=== PATIENT | female | born 1960 | race Caucasian/White ===

== ENCOUNTER 2023-04-29 16:32 | Outpatient (OUT) | payer MEDICARE, SELFPAY ==
--- NOTE | 2023-04-29 16:49 | XR_ITS ---
The [address] [address] Patient Name: RHETT MEJIA MRN: [id number] date: 1960 Sex: F Assigned Patient Location: [facility] Current Patient Location: [facility] Accession/Order Number: [id number] Exam Date: 04/29/2023 16:51 Report Date: 04/29/2023 18:08 At the request of: NAPOLEON LOPEZ Procedure: XR tibia fibula RT 2V EXAM: XR tibia fibula RT 2V HISTORY: RT LEG MASS and lower extremity swelling. COMPARISON: None. TECHNIQUE: AP and lateral views of the tibia and fibula were obtained. FINDINGS: There is no evidence of an acute fracture or dislocation. Some deformity of the fibular head and neck indicates an old fracture which has healed. Degenerative changes are seen at the knee with narrowing of the joint spaces and osteophytes. A focal sclerotic region of the distal tibial metaphysis has appearance of a bone island. The mortise is intact. Diffuse soft tissue swelling about the lower extremity is noted extending into the ankle. Some skin calcifications are noted anterior to the mid tibia. IMPRESSION: No acute fracture or dislocation. A remote fracture of the proximal fibular is noted. Degenerative changes are seen about the knee. A focal area of sclerosis is seen in the distal tibial metaphysis, which appears benign in nature. Comparison with a previous study would be helpful in determining the chronicity of these findings. Electronically authenticated by: DEANDRE MOSS Date: 04/29/2023 18:08
== END 2023-04-29 16:33 ==
PROVIDERS: PCP Family Medicine; Visit Provider Family Medicine
DX: R22.41 Localized swelling, mass and lump, right lower limb (principal)
CPT/HCPCS: 73590

== ENCOUNTER 2023-05-06 07:00 | Day surgery (SDC) | payer MEDICARE, SELFPAY ==
[2023-05-06 07:19] VITALS: BP 120/70; PULSE 94; RESP 20; TEMP 36.2; O2SAT 97
--- NOTE | 2023-05-06 08:11 | P.ON_ITS ---
Date of procedure: 05/06/23 Procedure: Cervical C7-T1 Epidural injection Preop diagnosis includes pain secondary to Cervical Radiculopathy Post op diagnosis same Under fluoroscopic guidance Immediate complications none Solution used for injection: Marcaine 0.25% 2mL, 2cc Normal saline, Depo-Medrol 80mg Omnipaque 3 mL Anesthesia local 2% lidocaine up to 4ml Timeout process compliant After informed consent obtained. patient brought to the procedure room placed in the prone position. skin overlying the area was prepped and draped in a sterile fashion using betadine. 25 gauge needle used To raise a skin wheel with local anesthetic over the target area identified under fluoroscopy . a 17 gauge Touhy needle Was inserted over the anesthetized area and directed towards the inter- space under fluoroscopic guidance . epidural space was identified with loss of resistance technique to air. needle Tip placement confirmed with injection of contrast solution. Steroid solution was then injected. [place] removed post operatively. Patient transferred to recovery room in stable condition, to be discharged home after meeting Criteria Surgeon: Minal Enriquez
[2023-05-06 08:28] VITALS: BP 135/66; PULSE 83; RESP 20; O2SAT 90
[2023-05-06] MEDS: METHYLPREDNISOLONE ACETATE 80 MG/ML VIAL INJ (08:33)
[2023-05-06] MEDS: 0.9 % SODIUM CHLORIDE 10 ML SYRINGE - SALINE FLUSH INJ (08:33)
[2023-05-06] MEDS: LIDOCAINE HCL 2% PF 100 MG/5 ML VIAL 6 ML INJ (08:33)
[2023-05-06] MEDS: BUPIVACAINE HCL 0.25% PF 25 MG/10 ML VIAL 2 ML INJ (08:33)
[2023-05-06 08:34] VITALS: BP 137/66; PULSE 66; RESP 20; O2SAT 90
== END 2023-05-06 08:40 | disposition home or self-care (01) ==
PROVIDERS: PCP Family Medicine; Visit Provider Anesthesiology Pain Medicine
DX: M54.12 Radiculopathy, cervical region (principal)
CPT/HCPCS: 62321; J1040

== ENCOUNTER 2023-05-27 13:22 | Outpatient (OUT) | payer MEDICARE, SELFPAY ==
--- NOTE | 2023-05-27 17:30 | CONS_ITS ---
CONSULTATION DATE: ??05/27/2023 TO:? Ke Rahman M.D. HISTORY:? Patient presents today complaining of pain in her lower back, worse on the left side.? At times her legs feel painful as well, mainly in the upper part of her left side.? She reports the pain does increase with sitting for prolonged periods of time.? She feels better if she stands.? Walking at times is also quite uncomfortable, and she did describe to me discomfort in her legs with ambulating as well.? EXAM:? Her examination is notable for patient having no clinical radiculopathy or myelopathy involving the lower extremities, but she did have depressed right patellar reflex and weakness of the iliopsoas and quadriceps bilaterally.? IMPRESSION:? Our impression is patient appears to have chronic pain secondary to spinal stenosis and neurogenic claudication in the lumbar area.? RECOMMENDATIONS:? I have recommended physical therapy for strengthening.? Proceed with a lumbosacral spine film, PA and lateral views, and then followed by lumbar MRI without contrast.? I did discuss with her the possibility of seeking neurosurgical consultation, but she wants to hold off on the same.? She has also had pain with lumbar facet loading maneuvers occurring bilaterally, markedly worse on the left side.? We will have the patient return to the office in approximately one month?s time to review her imaging studies. As part of providing excellent, safe, comprehensive care, the following was completed at our patient's visit: 1. A medication reconciliation and review to ensure accurate knowledge of current/active medications, including asking our patients to inform us about any uurb-jfk-ajawwai medications or herbal remedies/nutritional supplements/alternative remedies. 2. A review to specifically ensure our patients have had annual screening for: elevated body mass index (BMI, see intake chart for exact total), tobacco use, screening for depression, and screening for unhealthy alcohol use.? When screening is concerning, patients are provided with education and the specific recommendation to discuss the concerning health issue and treatment options with their primary care provider. LIZZETTE
== END 2023-05-27 13:23 | disposition home or self-care (01) ==
LOC: PM 13:22
PROVIDERS: PCP Family Medicine; Visit Provider Anesthesiology Pain Medicine
DX: M48.00 Spinal stenosis, site unspecified (principal); G89.29 Other chronic pain
CPT/HCPCS: G0463

== ENCOUNTER 2023-06-26 12:59 | Outpatient (OUT) | payer MEDICARE, SELFPAY ==
--- NOTE | 2023-06-26 13:16 | CT_ITS ---
The [address] [address] Patient Name: RHETT MEJIA MRN: [id number] date: 1960 Sex: F Assigned Patient Location: CT Current Patient Location: MRI Accession/Order Number: [id number] Exam Date: 06/26/2023 14:15 Report Date: 06/26/2023 15:09 At the request of: NAPOLEON LOPEZ Procedure: CT lower leg RT wo con CT lower leg RT wo con CLINICAL HISTORY: Right leg mass R22.41. COMPARISON: 04/29/2023. TECHNIQUE: Noncontrast axial CT of the right lower leg from the right knee through the ankle. Bone and soft tissue windows provided for review. Sagittal and coronal reconstructions performed. Dose reduction techniques were achieved by using automated exposure control and/or adjustment of mA and/or kV according to patient size and/or use of iterative reconstruction technique. FINDINGS: Diffuse subcutaneous and dermal edema of the right lower leg. Extensive varicosities throughout the right lower leg. At the marked site of interest over the anterior lower leg at the junction of middle and distal thirds there is BB marker. This denotes a prominent varicosity. No other concerning mass or fluid collection. No significant intramuscular edema. Osseous structures intact with no fracture or concerning lesion. Small benign bone infarct distal tibial shaft. The ankle and knee joints grossly intact with relatively advanced degenerative change at the knee. Multiple tiny scattered benign soft tissue calcifications.: Diffuse subcutaneous edema. The marked site of interest over the anterior tyler overlies a prominent venous varicosity. No concerning abnormality. Electronically authenticated by: NATTY HILL Date: 06/26/2023 15:09
== END 2023-06-26 13:00 | disposition home or self-care (01) ==
LOC: CT 13:01
PROVIDERS: PCP Family Medicine; Visit Provider Family Medicine
DX: R22.41 Localized swelling, mass and lump, right lower limb (principal)
CPT/HCPCS: 73700

== ENCOUNTER 2023-06-26 13:05 | Outpatient (OUT) | payer MEDICARE, SELFPAY ==
--- NOTE | 2023-06-26 13:09 | MR_ITS ---
[address] [address] Patient Name: RHETT MEJIA MRN: [id number] date: 1960 Sex: F Assigned Patient Location: MRI Current Patient Location: MRI Accession/Order Number: [id number] Exam Date: 06/26/2023 13:17 Report Date: 06/27/2023 09:00 At the request of: AMIRA OCAMPO Procedure: MR lumbar spine wo con EXAMINATION: MR lumbar spine wo con HISTORY: Lumbar spinal stenosis ; chronic lumbar and left leg pain and weakness COMPARISON: No relevant comparison available. TECHNIQUE: A variety of imaging planes and parameters were utilized for visualization of suspected pathology. FINDINGS: For the purposes of numbering, sagittal T2 image # 11 extends from the T10 vertebral body superiorly to the S3 level inferiorly. PARASPINAL AREA: Normal with no visible mass. BONES: Levoscoliosis of lumbar spine. Mild grade 1 retrolisthesis of L3 on 4. No fracture. CORD/CAUDA EQUINA: Normal caliber, contour, and signal intensity. DISC LEVELS: 12-L1: No significant disc/facet abnormality, spinal stenosis, or foraminal stenosis. L1-L2: Mild central canal and bilateral foramen narrowing. Mild diffuse disc bulging and mild disc height reduction. L2-L3: Marked central canal and right foramen narrowing. No significant left foramen narrowing. Mild diffuse disc bulging with marked disc height reduction. Short pedicles bilaterally, moderate degenerative facet arthropathy, and mild ligamentum flavum thickening. L3-L4: Moderate central canal and right foramen narrowing. Marked left foramen narrowing. Moderate diffuse disc bulging eccentric to the left with marked disc space narrowing. Left facet marked degenerative hypertrophy. L4-L5: Mild central canal and right foramen narrowing. Marked left foramen narrowing. Moderate diffuse disc bulging eccentric to the left. Left facet marked degenerative hypertrophy. L5-S1: Early degenerative disc disease is present without focal protrusion or neural impingement. MR/MR lumbar spine wo con IMPRESSION: 1. L2-L3 marked central canal narrowing. Moderate-marked foramen narrowing L2-3, L3-4, L4-5. 2. Prominent levoscoliosis, degenerative disc disease, degenerative facet arthropathy contribute to findings in #1. Electronically authenticated by: JESSICA WINKLER Date: 06/27/2023 09:00
== END 2023-06-26 13:06 | disposition home or self-care (01) ==
LOC: MRI 13:05
PROVIDERS: PCP Family Medicine; Visit Provider Anesthesiology Pain Medicine
DX: R22.41 Localized swelling, mass and lump, right lower limb (principal); M48.061 Spinal stenosis, lumbar region without neurogenic claudication
CPT/HCPCS: 72148; 73700

== ENCOUNTER 2023-09-02 14:48 | Outpatient (OUT) | payer MEDICARE, SELFPAY ==
--- NOTE | 2023-09-02 | CONS_ITS ---
CONSULTATION DATE: ??09/02/2023 TO:? Dr. Rahman HISTORY:? Patient was seen today complaining of pain in her lower back occurring bilaterally.? Pain is rated 5-7/10 pain, sharp in character, which is fairly constant, increased with activities such as standing, walking and performing transitioning maneuvers.? She feels most comfortable in the semi-recumbent position.? She denied any change in bowel and bladder habits or new sensorimotor changes in her lower extremities. EXAMINATION:? Notable for patient having no clinical radiculopathy or myelopathy involving the lower extremities.? She did have severe pain with lumbar facet joint loading maneuvers occurring bilaterally from at least L2-L5, most likely effecting the L2-3 and L4-5 levels.? She had essentially myofascial fascial spasm of the lumbar paravertebral muscles as well. IMPRESSION:? Our impression is patient has chronic pain.? She has undergone a rhizotomy using radiofrequency ablation of the L2-3, L4-5 levels on 07/09/2022.? She reports her pain was improved by at least 80% with the recurrence of pain almost back to her baseline.? RECOMMENDATIONS:? We recommend repeating the rhizotomy using radiofrequency ablation of the above mentioned levels under fluoroscopic guidance.? We have gone over the details of the procedure with the patient.? She agrees to proceed with the outlined plan. As part of providing excellent, safe, comprehensive care, the following was completed at our patient's visit: 1. A medication reconciliation and review to ensure accurate knowledge of current/active medications, including asking our patients to inform us about any eeej-bcj-hlutzps medications or herbal remedies/nutritional supplements/alternative remedies. 2. A review to specifically ensure our patients have had annual screening for: elevated body mass index (BMI, see intake chart for exact total), tobacco use, screening for depression, and screening for unhealthy alcohol use.? When screening is concerning, patients are provided with education and the specific recommendation to discuss the concerning health issue and treatment options with their primary care provider. LIZZETTE
== END 2023-09-02 14:49 | disposition home or self-care (01) ==
LOC: PM 14:49
PROVIDERS: PCP Family Medicine; Visit Provider Anesthesiology Pain Medicine
DX: G89.29 Other chronic pain (principal)
CPT/HCPCS: G0463

== ENCOUNTER 2023-09-22 06:44 | Day surgery (SDC) | payer MEDICARE, SELFPAY ==
[2023-09-22 06:57] VITALS: BP 129/83; PULSE 90; RESP 16; TEMP 35.9; O2SAT 95
[2023-09-22] MEDS: 0.9 % SODIUM CHLORIDE 500 ML 50 ML IV (07:18)
[2023-09-22] MEDS: BUPIVACAINE HCL 0.25% PF 25 MG/10 ML VIAL 4 ML INJ (07:46)
[2023-09-22] MEDS: LIDOCAINE HCL 2% 400 MG/20 ML MDV INJ (07:47)
[2023-09-22] MEDS: TRIAMCINOLONE ACETONIDE 40 MG/ML VIAL INJ (07:47)
--- NOTE | 2023-09-22 07:58 | P.ON_ITS ---
Date of procedure: 09/22/23 Pre-op diagnosis: Lumbar spondylosis Post-op diagnosis: same as pre-op Procedure: Procedure: Bilateral L2-3, L4-5 radiofrequency ablation Medications: Bupivacaine 0.25% 6cc, lidocaine 2% 5cc, kenalog 80mg The patient was seen and examined in the preoperative holding area.? The site was marked.? Written informed consent was obtained and placed on the chart.? The patient was brought to the medical procedure unit and placed in the prone position.? A timeout was completed verifying correct patient, procedure, positioning, and special requirements.? The skin overlying the target points, the designated medial branch, were prepped and draped in the usual sterile fashion.? The target point was achieved with a 20-gauge 15 cm with a 10 mm curved active tip radiofrequency cannula under direct fluoroscopic visualization.? The needle was inserted at level L2 on the right side. Needle tip position was confirmed with lateral fluoroscopic position.? Motor stimulation was carried out at 2 Hz up to 5 volts with the absence of extremity activity.? This was repeated at level L3, 4, 5 on right side.?? Sensory stimulation was carried out.? Concordant pain was realized at the above- mentioned sites.? Then radiofrequency lesioning was carried out times 90 seconds at 80 degrees times 2 lesions at each level.? The radiofrequency probe was removed prior to cannula removal.? The above-mentioned injectate was placed in 1 mL increments.? The needle was removed. The same procedure, with the same steps, was then completed on the left side at the same levels. Insertion sites were covered.? The patient was taken to the postoperative recovery area and monitored for an appropriate length of time before being found suitable for discharge in the company of a responsible adult. Anesthesia: Moderate Sedation Surgeon: Monica Malagon Pathology: none sent Condition: stable Disposition: no change
[2023-09-22 08:01] VITALS: BP 119/77; PULSE 86; RESP 14; TEMP 36.3; O2SAT 99
[2023-09-22 08:02] VITALS: BP 109/68; PULSE 86; RESP 16; TEMP 36.3; O2SAT 97
== END 2023-09-22 08:24 | disposition home or self-care (01) ==
PROVIDERS: PCP Family Medicine; Visit Provider Anesthesiology
DX: M47.816 Spondylosis without myelopathy or radiculopathy, lumbar region (principal)
CPT/HCPCS: 64635; 64636; J2704

== ENCOUNTER 2023-10-02 11:07 | Outpatient (OUT) | payer MEDICARE, SELFPAY ==
[2023-10-02 11:31] LABS: Calcium 9.6 mg/dL (8.5-10.1); Estimated GFR (African America >60 (>=60); Estimated GFR (Non-African Ame >60 (>=60)
== END 2023-10-02 11:08 | disposition home or self-care (01) ==
LOC: LAB 11:08
PROVIDERS: PCP Family Medicine; Visit Provider Family Medicine
DX: M81.0 Age-related osteoporosis without current pathological fracture (principal)
CPT/HCPCS: 36415; 82310; 82565

== ENCOUNTER 2023-10-02 11:15 | Outpatient (RCR) | payer MEDICARE, SELFPAY ==
[2023-10-02] MEDS: DENOSUMAB 60 MG/ML SYRINGE SQ (11:44)
== END 2023-10-16 23:59 | disposition home or self-care (01) ==
LOC: INF 11:15
PROVIDERS: PCP Family Medicine; Visit Provider Family Medicine
DX: M81.0 Age-related osteoporosis without current pathological fracture (principal)
CPT/HCPCS: 96372; J0897

== ENCOUNTER 2023-10-07 12:06 | Outpatient (REF) | payer MEDICARE, SELFPAY ==
[2023-10-17 14:09] LABS: Ova + Parasite Exam Final report (.)
== END 2023-10-07 12:07 | disposition home or self-care (01) ==
LOC: LAB 12:06
PROVIDERS: PCP Family Medicine; Visit Provider Family Medicine
DX: K52.9 Noninfective gastroenteritis and colitis, unspecified (principal); R53.83 Other fatigue
CPT/HCPCS: 87045; 87046; 87177; 87209; 87427; 87493

== ENCOUNTER 2023-10-08 11:56 | Outpatient (OUT) | payer MEDICARE, SELFPAY ==
[2023-10-08 12:19] LABS: Basophils Percent Auto 0.3 % (0.2-2.0); Eosinophils Absolute Auto 0.1 10^3/uL (0.0-0.7); Eosinophils Percent Auto 0.8 % (0.9-7.0); Hematocrit 45.6 % (36.0-48.0); Hemoglobin 15.2 g/dL (12.0-16.0); Immature Granulocytes Abs Auto 0.03 10^3/uL (0.00-0.03); Immature Granulocytes Pct Auto 0.3 % (0.0-0.5); Lymphocytes Absolute Auto 1.8 10^3/uL (1.2-3.8); Lymphocytes Percent Auto 19.3 % (20.5-60.0); Mean Corpuscular HGB Conc 33.3 g/dL (29.9-35.2); Mean Corpuscular Hemoglobin 31.8 pg (26.7-34.0); Mean Corpuscular Volume 95.4 fL (81.0-99.0); Mean Platelet Volume 9.2 fL (9.5-13.5); Monocytes Absolute Auto 0.9 10^3/uL (0.3-0.8); Monocytes Percent Auto 9.4 % (1.7-12.0); Neutrophils Absolute Auto 6.4 10^3/uL (1.4-6.5); Neutrophils Percent Auto 69.9 % (43.0-75.0); Platelet Count 256 10^3/uL (150-450); Red Blood Count 4.78 10^6/uL (4.20-5.40); Red Cell Distribution Width 13.2 % (11.0-15.0); White Blood Count 9.2 10^3/uL (4.0-11.0)
== END 2023-10-08 11:57 | disposition home or self-care (01) ==
LOC: LAB 11:57
PROVIDERS: PCP Family Medicine; Visit Provider Family Medicine
DX: K52.9 Noninfective gastroenteritis and colitis, unspecified (principal); R53.83 Other fatigue
CPT/HCPCS: 36415; 80053; 80061; 82306; 82607; 82728; 83036; 83540; 84436; 84443; 84481; 85025

== ENCOUNTER 2023-11-12 09:07 | Outpatient (OUT) | payer MEDICARE, SELFPAY ==
--- NOTE | 2023-11-12 09:34 | PM.CN ---
Consult Note: HPI Data of Consult Patient: known to practice within the last 3 years Requesting Physician: Jennie Rowe NP Primary Care Provider: Ke Rahman MD Consult Narrative Reason for consult: f/u Narrative: Vida mason pleasant 63 year old female presents for evaluation and management of chronic low back pain. Recently underwent Bilateral L2-3, L4-5 facet medial branch thermal radiofrequency ablation with 100% ongoing relief. Patient reporting pain is 0/10 today. Patient very pleased with this procedure. Patients PCP manages most of her medications, we prescribe flexeril 5mg TID PRN which she utilizes with benefit. cc:: CC: Jennie Rowe NP Review of Systems ROS Status of ROS 10 or more systems reviewed and unremarkable except as noted in history and below [facility] Medical History (Updated 11/12/23 @ 09:43 by Jennie Rowe NP) Upper back pain ?M54.9 - Dorsalgia, unspecified (ICD-10) Back pain ?M54.9 - Dorsalgia, unspecified (ICD-10) Neck pain ?M54.2 - Cervicalgia (ICD-10) Suicidal behavior ?R45.89 - Other symptoms and signs involving emotional state (ICD-10) Panic attack ?F41.0 - Panic disorder [episodic paroxysmal anxiety] (ICD-10) Depressed ?F32.A - Depression, unspecified (ICD-10) Anxiety ?F41.9 - Anxiety disorder, unspecified (ICD-10) Hearing deficit ?H91.90 - Unspecified hearing loss, unspecified ear (ICD-10) Acid reflux ?K21.9 - Gastro-esophageal reflux disease without esophagitis (ICD-10) Left thyroid nodule ?E04.1 - Nontoxic single thyroid nodule (ICD-10) Smoker ?F17.200 - Nicotine dependence, unspecified, uncomplicated (ICD-10) Asthmatic bronchitis ?J45.909 - Unspecified asthma, uncomplicated (ICD-10) Surgical History History of cholecystectomy ?Z90.49 - Acquired absence of other specified parts of digestive tract (ICD-10) H/O discectomy ?Z98.890 - Other specified postprocedural states (ICD-10) H/O: hysterectomy ?Z90.710 - Acquired absence of both cervix and uterus (ICD-10) Gastric bypass status for obesity ?Z98.84 - Bariatric surgery status (ICD-10) Meds Home Medications and Allergies Home Medications Medication Instructions Recorded Confirmed Type buprenorphine 10 mcg/hour weekly 1 patch transdermal QWEEK 05/01/23 09/22/23 History transdermal patch (Butrans) calcium carbonate 600 mg-vitamin cap PO .QD 05/01/23 History D3 5 mcg (200 unit) capsule (Calcium 600 + D(3)) cholecalciferol (vitamin D3) 10 10 mcg PO DAILY 05/01/23 05/06/23 History mcg (400 unit) capsule cyclobenzaprine 5 mg tablet 5 mg PO TID 05/01/23 09/22/23 History dextroamphetamine-amphetamine 20 20 mg PO .QD 05/01/23 09/22/23 History mg tablet diazepam 5 mg tablet (Valium) 5 mg PO DAILY 05/01/23 05/06/23 History diclofenac sodium 1 % topical gel 4 g topical QID 05/01/23 09/22/23 History diclofenac sodium 75 mg 75 mg PO .QD 05/01/23 09/22/23 History tablet,delayed release duloxetine 60 mg capsule,delayed 120 mg PO DAILY 05/01/23 09/22/23 History release (Cymbalta) esomeprazole magnesium 20 mg 40 mg PO DAILY 05/01/23 09/22/23 History capsule,delayed release (Nexium) gabapentin 600 mg tablet 600 mg PO TID 05/01/23 09/22/23 History lidocaine 5 % topical ointment 05/01/23 History vitamin B complex (Complex B-100 1 tab PO DAILY 05/01/23 09/22/23 History tablet,extended release) ziprasidone HCl 20 mg capsule 20 mg PO .HS 05/01/23 09/22/23 History rivaroxaban 10 mg tablet (Xarelto) 10 mg PO DAILY 09/09/23 09/22/23 History Allergies Allergy/AdvReac Type Severity Reaction Status Date / Time iodine Allergy Verified 05/01/23 09:06 latex Allergy Verified 05/01/23 09:06 soybean Allergy Verified 05/01/23 09:06 Sulfa (Sulfonamide Allergy Verified 05/01/23 09:06 Antibiotics) IV DYE Allergy Uncoded 05/01/23 09:06 Exam Constitutional Documenting provider has reviewed patient's vital signs: yes Common normals: no apparent distress, oriented x3, healthy appearing, alert and well nourished General appearance: cooperative HENKY Common normals: normocephalic, hearing grossly normal bilaterally and moist oral mucous membranes Head and scalp: normocephalic Eye Common normals: PERRL Pupil: PERRL Neck & C-Spine Common normals: full ROM General: normal visual inspection Chest Common normals: inspection of chest normal Respiratory Common normals: normal respiratory effort, no retractions and no use of accessory muscles Back & Pelvis Thoracic spine/upper back: ROM limited Lumbar spine/lower back: ROM limited and straight leg raise negative bilaterally Other: no tenderness negative facet loading no radiculopathy Extremity Common normals: normal to inspection and full ROM Neuro Common normals: oriented x3, CN's II-XII intact bilaterally, moves all extremities, no focal motor deficits, no sensory deficits noted, deep tendon reflexes 2+ bilaterally and gait normal Sensorium/orientation: alert Motor exam: strength 5/5 throughout and no movement abnormalities noted Psych Common normals: mental status grossly normal, thought process normal, cooperative, affect normal, speech normal and activity/motor behavior normal Speech: normal speech Thought process: normal thought process Assessment and Plan Assessment and Plan (1) Lumbar spondylosis: (2) Myofascial pain: Plan continue HEP as tolerated continue flexeril 5mg TID PRN continue f/u with PCP regarding medications f/u 6 months, sooner if needed
== END 2023-11-12 09:08 | disposition home or self-care (01) ==
LOC: PM 09:08
PROVIDERS: PCP Family Medicine; Visit Provider Nurse Practitioner
DX: M47.816 Spondylosis without myelopathy or radiculopathy, lumbar region (principal); M79.18 Myalgia, other site
CPT/HCPCS: G0463

== ENCOUNTER 2024-03-02 07:42 | Outpatient (OUT) | payer MEDICARE, OTHER, SELFPAY ==
--- OUTSIDE RECORDS SUMMARY | 2024-03-02 07:47 | XMS_ITS | CCD ---
Author Organization [facility] Care Team Providers Care Environmental Marketer Name Role Phone NAWRAS, ALI T Unavailable Unavailable NAWRAS, ALI T Unavailable Unavailable HOY, NAPOLEON Unavailable Unavailable HOY, NAPOLEON Unavailable Unavailable HI Unavailable Unavailable NAWRAS, ALI T Unavailable Unavailable Irving Zamora Attending Physician Unavaila Napoleon Matute Primary Care Physician Unavailab MICAELA Joseph Attending Unavailable MICAELA GUPTA Attending Unavailable MICAELA GUPTA Referring Unavailable MICAELA GUPTA Referring Unavailable MICAELA GUPTA Attending Unavailable MICAELA GUPTA Admitting Unavailable LAKSHMIPATHY ., NARENDRANATH Admitting Rajani vailable LAKSHMIPATHY ., NARZACKERY Consulting Rajani vailable HOY ., DR BENDER Primary Care Unavailable LAKSHMIPATHY ., AMIRA Attending Rajani vailable KRYSTIAN ALFARO Consulting Unavailable HOY ., DR BENDER Primary Care Unavailable LAKSHMIPATHY ., NARSALVATOREATH Admitting Rajani vailable RAMIREZ .RUBY Consulting Unavailable LAKSHMIPATHY ., AMIRA Attending Rajani vailable HOKelvin ., DR BENDER Primary Care Unavailable LAKSHMIPATHY ., NARENDRANATH Admitting Rajani vailable LAKSHMIPATHY ., NARENDVENECIAATH Attending Rajani vailable DR JESSICA LIPSCOMB Consulting Unavailable HOY ., DR BENDER Primary Care Unavailable LAKSHMIPATHY ., ANNAATH Attending Rajani vailable LAKSHMIPATHY ., NARENDVENECIAATH Admitting Rajani vailable LAKSHMIPATHY ., AMIRA Consulting Rajani vailable HOKelvin ., DR BENDER Consulting Unavailable HOY ., DR BENDER Primary Care Unavailable HOY ., DR BENDER Admitting Unavailable HOY ., DR BENDER Attending Unavailable LITTLE ., DR BETHEL Reyes Admitting Unavailable LITTLE ., DR BETHEL Reyes Attending Unavailable HOY ., DR BNEDER Primary Care Unavailable RAMIREZ ., RUBY Consulting Unavailable LITTLE ., DR BETHEL Reyes Attending Unavailable HOY ., DR BENDER Primary Care Unavailable HOY ., DR BENDER Consulting Unavailable LITTLE ., DR BETHEL Reyes Admitting Unavailable RAMIREZ ., RUBY Consulting Unavailable GUPTA, DR HINOJOSA Admitting Unavailable GUPTA, DR HINOJOSA Attending Unavailable HOY ., DR BENDER Primary Care Unavailable GUPTA, DR HINOJOSA Consulting Unavailable HOY ., DR BENDER Consulting Unavailable HOY ., DR BENDER Primary Care Unavailable HOY ., DR BENDER Admitting Unavailable HOY ., DR BENDER Attending Unavailable HOY ., DR BENDER Primary Care Unavailable HOY ., DR BENDER Consulting Unavailable HOY ., DR BENDER Admitting Unavailable HOY ., DR BENDER Attending Unavailable ELLIJAY, DR MEAGHAN Stanton Consulting Unavailable HOY ., DR BENDER Primary Care Unavailable HOY ., DR BENDER Consulting Unavailable HOY ., DR BENDER Admitting Unavailable HOY ., DR BENDER Attending Unavailable KEVINER, DR JESSICA Raya Consulting Unavailable HOY ., DR BENDER Primary Care Unavailable LAKSHMIPATHY ., NARENDRANATH Consulting Rajani vailable LAKSHMIPATHY ., NARENDRANATH Admitting Rajani vailable LAKSHMIPATHY ., NARENDRANATH Attending Rajani vailable HALKER ., EVIE Attending Unavailable LAKSHMIPATHY ., NARENDRANATH Admitting Rajani vailable HALKER ., EVIE Consulting Unavailable HOY ., DR BENDER Primary Care Unavailable RAMIREZ ., RUBY Consulting Unavailable LITTLE ., DR BETHEL Reyes Attending Unavailable LITTLE ., DR BETHEL Reyes Admitting Unavailable HOY ., DR BENDER Primary Care Unavailable LITTLE ., DR BETHEL Reyes Attending Unavailable LITTLE ., DR BETHEL Reyes Consulting Unavailable LITTLE ., DR BETHEL Reyes Admitting Unavailable HOY ., DR BENDER Primary Care Unavailable CHARO RASCON Consulting Unavailable ERX BUSTILLO Consulting Unavailable LITTLE ., DR BETHEL Reyes Attending Unavailable LITTLE ., DR BETHEL Reyes Consulting Unavailable LITTLE ., DR BETHEL Reyes Admitting Unavailable HOY ., DR BENDER Primary Care Unavailable HOY ., DR BENDER Consulting Unavailable HOY ., DR BENDER Primary Care Unavailable HOY ., DR BENDER Admitting Unavailable HOY ., DR BENDER Attending Unavailable ZIEBER, DR JESSICA Raya Consulting Unavailable HOY ., DR BENDER Consulting Unavailable HOY ., DR BENDER Primary Care Unavailable HOY ., DR BENDER Admsotero Unavailable HOY ., DR BENDER Attending Unavailable ZIEBER, DR JESSICA Raya Consulting Unavailable HOY ., DR BENDER Consulting Unavailable HOY ., DR BENDER Primary Care Unavailable HOY ., DR BENDER Admsotero Unavailable HOY ., DR BENDER Attending Unavailable ELLIJAY, DR MEAGHAN Stanton Consulting Unavailable RAMIREZ ., RUBY Consulting Unavailable LITTLE ., DR BETHEL Reyes Attending Unavailable LITTLE ., DR BETHEL Reyes Admitting Unavailable HOY ., DR BENDER Primary Care Unavailable RAMIREZ ., RUBY Consulting Unavailable LITTLE ., DR BETHEL Reyes Attending Unavailable LITTLE ., DR BETHEL Reyes Admitting Unavailable HOY ., DR BENDER Primary Care Unavailable LITTLE ., DR BETHEL Reyes Attending Unavailable LITTLE ., DR BETHEL Reyes Consulting Unavailable LITTLE ., DR BETHEL Reyes Admitting Unavailable HOY ., DR BENDER Primary Care Unavailable NICOLAS TOLBERT Consulting Unavailable HOY ., DR BENDER Primary Care Unavailable HOY ., DR BENDER Admsotero Unavailable HOY ., DR BENDER Consulting Unavailable HOY ., DR BENDER Attending Unavailable HOY ., DR BENDER Primary Care Unavailable REINECK, DR ASHLEY Cloud Consulting Unavailabl e REINECK, DR ASHLEY Cloud Admitting Unavailabl e REINECK, DR ASHLEY Cloud Attending Unavailabl e RALPH, MICAH Consulting Unavailable LITTLE ., DR BETHEL Reyes Attending Unavailable LITTLE ., DR BETHEL Reyes Consulting Unavailable LITTLE ., DR BETHEL Reyes Admitting Unavailable HOY ., DR BENDER Primary Care Unavailable HOY ., DR BENDER Primary Care Unavailable HOY ., DR NAPOLEON Sesay Unavailable HOY ., DR BENDER Attending Unavailable HOY ., DR BENDER Consulting Unavailable HOY ., DR BENDER Primary Care Unavailable HOY ., DR BENDER Attending Unavailable HOY ., DR NAPOLEON Sesay Unavailable LITTLE ., DR BETHEL Reyes Attending Unavailable LITTLE ., DR BETHEL Reyes Consulting Unavailable LITTLE ., DR BETHEL Reyes Admitting Unavailable HOY ., DR BENDER Primary Care Unavailable HOY ., DR BENDER Consulting Unavailable HOY ., DR BENDER Primary Care Unavailable HOY ., DR NAPOLEON Sesay Unavailable HOY ., DR BENDER Attending Unavailable ZIEBER, DR JESSICA Raya Consulting Unavailable REQUEST, DR COOPER LISTED Consulting Unavaila iker RAHMAN ., DR BENDER Primary Care Unavailable JOHN ., DR BENDER Admitting Unavailable JOHN ., DR BENDER Attending Unavailable Manas RIOJAS, Monica Todd Attending Unavailable Cristian Morris Attending Unavailab Cristian Du Admitting Unavailab Napoleon Gómez Primary Care Unavailable Allergies Allergy Classification Reported Allergen(s) Allergy Type Date of Onset Reaction(s) Facility (1 source) Contrast media; Translations: [IVP DYE] Propensity to adverse reactions (disorder) 1 [facility] Repository (2 sources) corn extract; Translations: [CORN] Drug Allergy 1 [facility] Repository (6 sources) iodine; Translations: [IODINE] Drug Allergy 9 Edema [facility] Repository (6 sources) Latex; Translations: [LATEX] Drug allergy (disorder) 9 Anaphylaxis [facility] Repository (1 source) loratadine Drug Allergy 1 [facility] Repository (2 sources) loratadine; Translations: [LORATADINE] Drug Allergy 3 [facility] Rep[facility] (1 source) montelukast Drug Allergy 1 [facility] Rep[facility] (3 sources) papaveretum; Translations: [SOYBEAN] Drug Allergy 1 [facility] Rep[facility] (2 sources) Penicillins; Translations: [PENICILLINS] Drug allergy (disorder) 1 [facility] Repository (1 source) povidone-iodine Drug Allergy 9 [facility] Rep[facility] (6 sources) propofol; Translations: [PROPOFOL] Drug Allergy 2 Anaphylaxis [facility] Repository (2 sources) wheat preparation; Translations: [WHEAT] Drug Allergy 2 [facility] Repository (5 sources) Iodinated Contrast Media; Translations: [IODINATED CONTRAST MEDIA] Allergy to Substance 12-19-201 4 Anaphylaxis [facility] Repository (1 source) montelukast; Translations: [MONTELUKAST] Drug Allergy 4 [facility] Repository (1 source) oxybutynin; Translations: [DITROPAN] Drug Allergy 2 [facility] Repository (1 source) Povidone-Iodine; Translations: [POVIDONE-IODINE] Drug Allergy 4 [facility] Repository (1 source) Soy protein; Translations: [SOY] Propensity to adverse reactions to drug (disorder) 2 [facility] Repository (1 source) Iodine (And Iodine Containting Drugs) Drug allergy (disorder) 4 [facility] Repository (1 source) Penicillin Drug Allergy [facility] Repository (1 source) Sulfonamides (Antibiotic) Drug allergy (disorder) 2 [facility] Repository (1 source) Iodine Drug Allergy 8 [facility] Repository (1 source) Latex Drug allergy (disorder) 8 [facility] Repository (1 source) Propofol Drug Allergy 8 [facility] Repository Medications Completed/Discontinued Medications Medication Drug Class(es) Dates Sig (Normalized) Sig (Original) acyclovir 400 mg oral tablet (6 sources) Herpesvirus Nucleoside Analog DNA Polymerase Inhibitor, Herpes Simplex Virus Nucleoside Analog DNA Polymerase Inhibitor, Herpes Zoster Virus Nucleoside Analog DNA Polymerase Inhibitor Start: 04-21-2018 End: 04-21-2018 Acyclovir April 21, 2018 Discontinued Start: 04-21-2018 End: 04-21-2018 Acyclovir April 21, 2018 April 21, 2018 Discontinued Start: 04-21-2018 End: 04-21-2018 Acyclovir April 21, 2018 Disco ntinued Start: 04-21-2018 End: 04-21-2018 Acyclovir April 21, 2018 April 21, 2018 Discontinued Start: 04-21-2018 End: 04-21-2018 Acyclovir April 21, 2018 Disco ntinued Start: 04-21-2018 End: 04-21-2018 Acyclovir April 21, 2018 April 21, 2018 Discontinued alendronic acid 70 mg oral tablet (6 sources) Bisphosphonate Start: 05-14-2018 take 70 mg by mouth every week Alendronate 70 MG Oral every week May 14, 2018 Active amphetamine aspartate 5 mg / amphetamine sulfate 5 mg / dextroamphetamine saccharate 5 mg / dextroamphetamine sulfate 5 mg oral tablet (12 sources) Central Nervous System Stimulant Start: 05-14-2018 End: 05-14-2018 take 20 mg by mouth once daily Dextroamphetamine -Amphetamine 20 MG Oral Daily May 14, 2018 May 14, 2018 Discontinued Start: 05-14-2018 End: 05-14-2018 take 20 mg by mouth once daily Dextroamphetamine-Amphetamine 20 MG Oral Daily May 14, 2018 Discontinued Start: 05-14-2018 End: 05-14-2018 take 20 mg by mouth once daily Dextroamphetamine-Amphetamine 20 MG Oral Daily May 14, 2018 May 14, 2018 Discontinued Start: 05-14-2018 End: 05-14-2018 take 20 mg by mouth once daily Dextroamphetamine-Amphetamine 20 MG Oral Daily May 14, 2018 Discontinued Start: 05-14-2018 End: 05-14-2018 take 20 mg by mouth once daily Dextroamphetamine-Amphetamine 20 MG Oral Daily May 14, 2018 May 14, 2018 Discontinued Start: 05-14-2018 End: 05-14-2018 take 20 mg by mouth once daily Dextroamphetamine-Amphetamine 20 MG Oral Daily May 14, 2018 Discontinued Start: 04-21-2018 End: 04-22-2018 take 20 mg by mouth once daily Dextroamphetamine-Amphetamine 20 MG Oral Daily April 21, 2018 Discontinued atomoxetine 40 mg oral capsule (6 sources) Norepinephrine Reuptake Inhibitor Start: 05-14-2018 End: 05-17-2018 take 40 mg by mouth once daily Atomoxetine 40 MG Oral Daily May 14, 2018 May 17, 2018 Discontinued baclofen 20 mg oral tablet (6 sources) gamma-Aminobutyric Acid-ergic Agonist Start: 04-21-2018 take 20 mg by mouth once daily at bedtime Baclofen 20 MG Oral Daily at bedtime April 21, 2018 Active calcium citrate 950 mg / cholecalciferol 250 unt oral tablet (6 sources) Vitamin D Start: 04-21-2018 take 2 tablets by mouth three times daily Calcium Citrate-Vitamin D3 2 TAB Oral Three times daily April 21, 2018 Active diazePAM 5 mg oral tablet (6 sources) Benzodiazepine Start: 04-21-2018 End: 04-22-2018 take 5 mg by mouth four times daily as needed for anxiety Diazepam 5 MG Oral Four times daily PRN For Anxiety April 21, 2018 Discontinued DULoxetine 60 mg delayed release oral capsule (6 sources) Serotonin and Norepinephrine Reuptake Inhibitor Start: 04-21-2018 take 120 mg by mouth once daily Duloxetine 120 MG Oral Daily April 21, 2018 Active esomeprazole 40 mg delayed release oral capsule (6 sources) Proton Pump Inhibitor Start: 04-21-2018 take 40 mg by mouth twice daily Esomeprazole Magnesium 40 MG Oral Twice daily April 21, 2018 Active gabapentin 300 mg oral capsule (6 sources) Anti-epileptic Agent Start: 04-22-2018 take 300 mg by mouth three times daily Gabapentin 300 MG Oral Three times daily 45 April 22, 2018 Active hydrOXYzine hydrochloride 50 mg oral tablet (6 sources) Antihistamine Start: 04-21-2018 take 50 mg by mouth three times daily as needed for anxiety Hydroxyzine Hcl 50 MG Oral Three times daily PRN For Anxiety April 21, 2018 Active ziprasidone 40 mg oral capsule (18 sources) Atypical Antipsychotic Start: 04-21-2018 End: 05-14-2018 take 40 mg by mouth once daily in the evening Ziprasidone Hcl 40 MG Oral Every evening 15 April 22, 2018 Discontinued Problems Active Problems Problem Classification Problem Date Documented Da te Episodic/Chronic Anxiety disorders (3 sources) Posttraumatic stress disorder Chronic Attention-deficit conduct and disruptive behavior disorders (3 sources) Attention deficit hyperactivity disorder Chronic Complications of surgical procedures or medical care (3 sources) Post gastrointestinal tract surgery hypoglycemia Chronic Deficiency and other anemia (1 source) Anemia, unspecified; Translations: [ANEMIA UNSPECIFIED] Onset: 3 Episodic Diabetes mellitus without complication (1 source) Type 1 diabetes mellitus without complications; Translations: [TYPE 1 DIABETES MELLITUS WITHOUT COMPLICATIONS] Onset: 8 Chronic Diabetes mellitus without complication (2 sources) Other abnormal glucose; Translations: [Hyperglycemia, unspecified] Onset: 3 Episodic Disorders of lipid metabolism (1 source) Hyperlipidemia, unspecified; Translations: [HYPERLIPIDEMIA UNSPECIFIED] Onset: 3 Chronic Esophageal disorders (1 source) Esophagitis, unspecified; Translations: [ESOPHAGITIS, UNSPECIFIED] Onset: 8 Episodic Heart valve disorders (1 source) Rheumatic tricuspid insufficiency; Translations: [RHEUMATIC TRICUSPID INSUFFICIENCY] Onset: 3 Chronic Mood disorders (3 sources) Severe major depression Chronic Nonspecific chest pain (1 source) Chest pain, unspecified; Translations: [CHEST PAIN UNSPECIFIED] Onset: 3 Episodic Nutritional deficiencies (1 source) Vitamin D deficiency, unspecified; Translations: [VITAMIN D DEFICIENCY UNSPECIFIED] Onset: 3 Chronic Nutritional deficiencies (1 source) Deficiency of other specified B group vitamins; Translations: [DEFICIENCY SPEC B GROUP VITAMINS] Onset: 3 Episodic Occlusion or stenosis of precerebral arteries (1 source) Occlusion and stenosis of bilateral carotid arteries; Translations: [OCCLUSION AND STENOS ALEXUS CAROTID ART] Onset: 3 Chronic Osteoporosis (4 sources) Age-related osteoporosis without current pathological fracture; Translations: [AGE-REL OSTEOPOR W/O CURR PATH FX] Onset: 3 Chronic Other acquired deformities (1 source) Scoliosis, unspecified; Translations: [SCOLIOSIS UNSPECIFIED] Onset: 3 Chronic Other and unspecified benign neoplasm (2 sources) Polyp of colon; Translations: [Personal history of colonic polyps] Onset: 8 Episodic Other connective tissue disease (3 sources) Fibromyalgia Episodic Other connective tissue disease (2 sources) Pain in right lower leg; Translations: [Pain in right lower leg] Onset: 2 Episodic Other connective tissue disease (2 sources) Other specified soft tissue disorders; Translations: [Other specified soft tissue disorders] Onset: 2 Episodic Other connective tissue disease (5 sources) Other muscle spasm; Translations: [OTHER MUSCLE SPASM] Onset: 2 Episodic Other gastrointestinal disorders (1 source) Intestinal bypass and anastomosis status; Translations: [INTESTINAL BYPASS AND ANASTOMOSIS STATUS] Onset: 8 Chronic Other gastrointestinal disorders (2 sources) Drug induced constipation; Translations: [Drug induced constipation] Onset: 2 Episodic Other hereditary and degenerative nervous system conditions (1 source) Dystonia, unspecified; Translations: [DYSTONIA UNSPECIFIED] Onset: 3 Chronic Other nervous system disorders (1 source) Other chronic pain; Translations: [OTHER CHRONIC PAIN] Onset: 3 Chronic Other nervous system disorders (2 sources) Other acute postprocedural pain; Translations: [Other acute postprocedural pain] Onset: 2 Episodic Other nutritional; endocrine; and metabolic disorders (1 source) Abnormal weight loss; Translations: [ABNORMAL WEIGHT LOSS] Onset: 8 Episodic Poisoning by other medications and drugs (3 sources) Drug overdose Episodic Residual codes; unclassified (5 sources) Altered mental status, unspecified; Translations: [ALTERED MENTAL STATUS UNSPECIFIED] Onset: 3 Episodic Residual codes; unclassified (5 sources) Localized edema; Translations: [LOCALIZED EDEMA] Onset: 3 Episodic Residual codes; unclassified (4 sources) Insomnia, unspecified; Translations: [INSOMNIA UNSPECIFIED] Onset: 3 Episodic Skin and subcutaneous tissue infections (4 sources) Cellulitis, unspecified; Translations: [CELLULITIS UNSPECIFIED] Onset: 3 Episodic Spondylosis; intervertebral disc disorders; other back problems (9 sources) Other spondylosis with radiculopathy, cervical region; Translations: [Other intervertebral disc degeneration, lumbar region] Onset: 2 Chronic Spondylosis; intervertebral disc disorders; other back problems (18 sources) Cervicalgia; Translations: [Radiculopathy, cervical region] Onset: 2 Episodic Substance-related disorders (4 sources) Nicotine dependence, cigarettes, uncomplicated; Translations: [NICOTINE DEPEND CIGARETTES UNCOMP] Onset: 3 Chronic Unclassified (8 sources) Encounter for screening for malignant neoplasm of colon; Translations: [Abnormal level of blood mineral] Onset: 8 Episodic Unclassified (2 sources) Unknown / UNK(Unknown) Onset: 8 Unclassified (2 sources) Post-op; Translations: [Post-op] Onset: 2 Unclassified (1 source) CONTACT W/AND (SUSP) EXPOS COVID-19; Translations: [CONTACT W/AND (SUSP) EXPOS COVID-19] Onset: 3 Unclassified (4 sources) LOW BACK PAIN, UNSPECIFIED; Translations: [LOW BACK PAIN, UNSPECIFIED] Onset: 3 Past or Other Problems Problem Classification Problem Date Documented Da te Episodic/Chronic Abdominal pain (9 sources) Right upper quadrant pain; Translations: [Unspecified abdominal pain] Onset: 07-15-2022 Episodic Biliary tract disease (5 sources) Calculus of gallbladder without cholecystitis without obstruction; Translations: [Other cholelithiasis without obstruction] Onset: 07-15-2022 Episodic Other aftercare (1 source) Other longterm (current) drug therapy; Translations: [OTH HALF-WAY CURRENT DRUG THERAPY] Onset: 07-15-2022 Episodic Other gastrointestinal disorders (2 sources) Bariatric surgery status; Translations: [BARIATRIC SURGERY STATUS] Onset: 02-24-2018 Episodic Other gastrointestinal disorders (1 source) Right upper quadrant abdominal swelling, mass and lump; Translations: [RUQ ABDOMINAL SWELLING MASS AND LUMP] Onset: 07-28-2022 Episodic Unclassified (1 source) LOW BACK PAIN, UNSPECIFIED; Translations: [LOW BACK PAIN, UNSPECIFIED] Onset: 12-04-2022 Results Test Name Value Interpretation Reference Range Facility MRI MEG WO CONon 03-05-20 MRI ROBININE WO CON EXAM: MRI CSPINE WO CON HISTORY: Cervical radiculitis COMPARISON: [address] TECHNIQUE: Axial sagittal T2, sagittal STIR, sagittal T1, sagittal T2* FINDINGS: There is mild levo convexity. There is no listhesis nor vertebral body height loss. There are discogenic endplate marrow changes at C4-5, C5-6, and C6-7. There is normal signal in the cervical spinal cord. The adjacent soft tissues demonstrate a 3 cm left thyroid nodule. The craniocervical junction is unremarkable. C2-3: There is a mild disc bulge without a significant stenosis C3-4: There is posterior osteophyte and disc formation with ligamentum flavum hypertrophy. This results in mild to moderate central canal and mild to moderate left-sided foraminal narrowing C4-5: There is posterior osteophyte and disc complex with ligamentum flavum hypertrophy. This results in moderate central stenosis. Facet and uncovertebral hypertrophy results in moderate to severe foraminal narrowing C5-6: There is posterior osteophyte and disc complex with uncovertebral hypertrophy. This results in moderate central canal and foraminal narrowing C6-7: There is a posterior osteophyte and disc complex that results in moderate central stenosis. Left-sided uncovertebral hypertrophy results in moderate to severe foraminal narrowing C7-T1: Unremarkable IMPRESSION: Moderate spondylitic changes most marked of the lower cervical spine Moderate central stenoses at C4-5, C5-6 and C6-7 Mild to moderate central stenosis C3-4 Facet and uncovertebral hypertrophy resulting in multilevel foraminal stenoses. This is most marked C4-5, C5-6 and C6 Electronically authenticated by: KRYSTIAN ALFARO Date: 2023-03-05 13:50 Normal [facility] CBC AUTO DIFFon 02-20-2023 BASO # 0.1 103/ul Normal 0.0-0.1 [facility] Comment on above: Performed By: #### C BC #### [facility] [address] [place] [address] Dr. Raul Pereira Basophils/100 WBC (Bld) 0.6 % Normal 0.2-2.0 [facility] Comment on above: Performed By: #### C BC #### [facility] [address] [place] [address] Dr. Raul Pereira EO # 0.2 103/ul Normal 0.0-0.7 [facility] Comment on above: Performed By: #### C BC #### [facility] [address] [place] [address] Dr. Raul Pereira Eosinophils/100 WBC (Bld) 2.3 % Normal 0.9-7.0 [facility] Comment on above: Performed By: #### C BC #### [facility] [address] [place] [address] Dr. Raul Pereira Hematocrit (Bld) [Volume fraction] 39.5 % Normal 36.0-48.0 [facility] Comment on above: Performed By: #### C BC #### [facility] [address] [place] [address] Dr. Raul Pereira Hemoglobin (Bld) [Mass/Vol] 12.3 g/dL Normal 12.0-16.0 [facility] Comment on above: Performed By: #### C BC #### [facility] [address] [place] [address] Dr. Raul Pereira IG # 0.03 10e3/ul Normal 0.00-0.03 [facility] Comment on above: Performed By: #### C BC #### [facility] [address] [place] [address] Dr. Raul Pereira IG % 0.4 % Normal 0.0-0.5 [facility] Comment on above: Performed By: #### C BC #### [facility] [address] [place] [address] Dr. Raul Pereira LYMPH # 2.1 103/ul Normal 1.2-3.8 [facility] Comment on above: Performed By: #### C BC #### [facility] [address] [place] [address] Dr. Raul Pereira Lymphocytes/100 WBC (Bld) 24.8 % Normal 20.5-60.0 [facility] Comment on above: Performed By: #### C BC #### [facility] [address] [place] [address] Dr. Raul Pereira MANUAL DIFF REQ NO Normal [facility] Comment on above: Performed By: #### C BC #### [facility] [address] [place] [address] Dr. Raul Pereira MCH (RBC) [Entitic mass] 26.3 pg Critically low 26.7-34.0 [facility] Comment on above: Performed By: #### C BC #### [facility] [address] [place] [address] Dr. Raul Pereira MCHC (RBC) [Mass/Vol] 31.1 g/dL Normal 29.9-35.2 The [facility] Comment on above: Performed By: #### C BC #### [facility] [address] [place] [address] Dr. Raul Pereira MCV (RBC) [Entitic vol] 84.4 fL Normal 81.0-99.0 [facility] Comment on above: Performed By: #### C BC #### [facility] [address] [place] [address] Dr. Raul Pereira MONO # 1.0 103/ul Critically high 0.3-0.8 [facility] Comment on above: Performed By: #### C BC #### [facility] [address] [place] [address] Dr. Raul Pereira Monocytes/100 WBC (Bld) 11.8 % Normal 1.7-12.0 [facility] Comment on above: Performed By: #### C BC #### [facility] [address] [place] [address] Dr. Raul Pereira NEUT # 5.0 103/ul Normal 1.4-6.5 [facility] Comment on above: Performed By: #### C BC #### [facility] [address] [place] [address] Dr. Raul Pereira Neutrophils/100 WBC (Bld) 60.1 % Normal 43.0-75.0 [facility] Comment on above: Performed By: #### C BC #### [facility] [address] [place] [address] Dr. Raul Pereira Platelet mean volume (Bld) [Entitic vol] 8.8 fL Critically low 9.5-13.5 [facility] Comment on above: Performed By: #### C BC #### [facility] [address] [place] [address] Dr. Raul Pereira PLT 418 103/ul Normal 150-450 [facility] Comment on above: Performed By: #### C BC #### [facility] [address] [place] [address] Dr. Raul Pereira RBC 4.68 106/ul Normal 4.20-5.40 [facility] Comment on above: Performed By: #### C BC #### [facility] [address] [place] [address] Dr. Raul Pereira WBC 8.3 103/ul Normal 4.0-11.0 [facility] Comment on above: Performed By: #### C BC #### [facility] [address] [place] [address] Dr. Raul Pereira FERRITINon 02-20-2023 Ferritin [Mass/Vol] 15.0 ng/mL Normal 8.0-252.0 [facility] Comment on above: Performed By: #### C BC #### [facility] [address] [place] [address] Dr. Raul Pereira XR CSPINE 2_3 VIEWSon 2022 XR CSPINE 2_3 VIEWS EXAMINATION: XR CSPI NE 2_3 VIEWS HISTORY: Cervical radiculitis ; bilateral hand numbness and burning COMPARISON: XR C-spine 09/14/2021 FINDINGS: BONES: Straightening of normal lordotic curvature. Mild-moderate degenerative facet arthropathy at most cervical levels. No fracture or spondylolisthesis. DISC SPACES: Mild narrowing C2-C3, C3 on 4. Marked narrowing C4-C5, C5-C6, C6-C7. PARASPINOUS: Negative. No paraspinous abnormality is seen. OTHER: Skin surface marker posterior to C7 IMPRESSION: 1. Multilevel marked degenerative changes of cervical spine; stable to slightly progressed. Electronically authenticated by: JESSICA LIPSCOMB Date: 2023-02-19 06:42 Normal [facility] CT LUNG CANCER SCREENINGon 0 02-13-2023 CT LUNG CANCER SCREENING EXAMINATION: CT LUNG CANCER SCREENING HISTORY: Tobacco dependence caused by cigarettes COMPARISON: 07/24/2022 TECHNIQUE: Axial, Coronal, and Sagittal images were created without the administration of IV contrast material. Dose reduction techniques were achieved by using automated exposure control and/or adjustment of mA and/or kV according to patient size and/or use of iterative reconstruction technique. FINDINGS: LUNGS: Smooth round 8.7 mm solid right lower lobe nodule axial image 102 central hyperdensity could represent some calcification. Additional subcentimeter pulmonary nodules scattered throughout the lungs. No bronchiectasis or peribronchial thickening PLEURA: No mass, effusion, or pneumothorax. VASCULATURE: No abnormality. FLORENCIA: No mass or pathologic adenopathy. MEDIASTINUM: No mass or pathologic adenopathy. CARDIAC: No enlargement, pericardial thickening, or significant calcification. AORTA: No aortic aneurysm. Mild atherosclerosis CHEST WALL: No mass or axillary adenopathy BONES: No bone lesion or fracture. LIMITED ABDOMEN: Hypodensity in the liver the gallbladder fossa possibly focal fatty infiltration but indeterminate. Suture lines in the stomach consistent with prior procedures OTHER: Negative. IMPRESSION: LUNG SCREENING: Lung-RADS Category 2- Benign Appearance or Behavior. Nodules with a very low likelihood of becoming a clinically active cancer due to size or lack of growth. 2. Continue annual screening with LDCT in 12 months. Electronically authenticated by: MEAGHAN SKINNER Date: 2023-02-13 11:02 Normal [facility] ECHOCARDIO M/2D COMPLETEon 0 3-30-2023 ECHOCARDIO M/2D COMPLETE Patient: RHETT MEJIA Exam Date: 02/13/2023 : 1960 Gender:F Ordering : DR NAPOLEON RAHMAN . Admission #: [id number] Family : Order #: [id number] CLICK HERE TO VIEW EXAM ECHOCARDIOGRAM REPORT PROCEDURE: CARDIO PULMONARY ECHOCARDIO M/2D COMP INDICATIONS: Chest pain COMPARISON: None. DESCRIPTION: COMPLETE ECHOCARDIOGRAM Real-time transthoracic echocardiography with 2D, M-mode, spectral and color flow Doppler performed. QUALITY: Technical quality was good. LEFT VENTRICLE: Normal chamber size. Proximal septal hypertrophy (sigmoid septum). LV EF: Normal left ventricular ejection fraction, (>55%). DIASTOLIC: Grade 2 diastolic dysfunction. ATRIAL SEPTUM: Visually appears intact. LEFT ATRIUM: Severe dilatation. RIGHT ATRIUM: Normal chamber size. RIGHT VENTRICLE: Normal chamber size. Normal right ventricular systolic function. TRICUSPID VALVE: Normal mobility and thickness. No stenosis with mild regurgitation. Doppler studies reveal mildly (35-45) elevated right sided pressures. RVSP 44 mmHg MITRAL VALVE: Normal mobility and thickness. No evidence of mitral valve stenosis. There is no mitral annular calcification. Trivial mitral regurgitation. AORTIC VALVE: Normal trileaflet appearance. Thickened aortic valve. Normal leaflet mobility. No evidence of aortic valve stenosis. No aortic regurgitation. AORTIC ROOT: Normal diameter and appearance. PULMONIC VALVE: Normal thickness and mobility. No stenosis. No regurgitation. PERICARDIUM: No evidence of pericardial effusion. IVC: Collapses with inspirations. IVC is normal in size. PLEURA: CONCLUSION: 1. Normal ventricular systolic function. LVEF is 60 to 65%. 2. Severe left atrial dilatation. 3. Grade 2 diastolic dysfunction. 4. Mild tricuspid regurgitation. 5. Mildly elevated right-sided pressures. Adult Echocardiography Procedure Report Left Ventricle LVEDD (3.7 - 5.6 cm): 4.77 cm LVESD (2.2 - 4.0 cm): 2.46 cm LVIVS thickness (0.6 - 1.2 cm): 0.90 cm LVPW thickness (0.5 - 1.0 cm): 0.91 cm e': 0.08 m/s E - e': 10.27 LVOT Max Gradient: 2.37 mm[Hg] Peak Velocity (LVOT): 0.77 m/s LVOT Diameter 2.25 cm Left Ventricular Ejection Fraction: 60-65 % Left Atrium LA Volume Index (2D A2C): 89.36 ml, 89.36 ml Left Atrium Systolic Dimension: 3.79 cm Mitral Valve MV E to A Ratio: 0.92 Mitral Valve A-Wave Peak Velocity: 0.93 m/s Mitral Valve E-Wave Peak Velocity: 0.85 m/s Right Ventricle Aorta AO Root Diam: 3.09 cm Aortic Valve AoV Area ([place]): 2.42 cm2, 2.42 cm2 Peak Velocity(Antegrade Flow): 1.26 m/s Peak Gradient(Antegrade Flow): 6.36 mm[Hg] Tricuspid Valve Peak Velocity (Regurgitant Flow): 3.19 m/s, 3.15 m/s Peak Velocity: 0.39 m/s Pulmonic Valve Peak Velocity: 0.89 m/s, 0.93 m/s Peak Gradient: 3.13 mm[Hg], 3.46 mm[Hg] Right Atrium Right Atrium Systolic Pressure: 24.05 ml, 24.05 ml Dictated by: Yogesh Marion M.D. on 02/13/2023 at 18:51 Approved by: Yogesh Marion M.D. on 02/13/2023 at 18:54 Normal [facility] CREATININEon 02-12-2023 Creatinine [Mass/Vol] 0.76 mg/dL Normal 0.55-1.02 [facility] Comment on above: Performed By: #### C BC #### [facility] [address] [address] [address] Raul Pereira EGFR-AF BERMUDIAN >60 Normal >=60 [facility] Comment on above: Performed By: #### C BC #### [facility] [address] [address] [address] Raul Pereira EGFR-NON AF BERMUDIAN >60 Normal >=60 [facility] Comment on above: Performed By: #### C BC #### [facility] [address] [place] [address] Dr. Raul Pereira MRI BRAIN WO W CONon 023 MRI BRAIN WO W CON EXAMINATION: MRI BRA IN WO W CON HISTORY: Altered mental status ; acute episode of disorientation COMPARISON: No relevant comparison available. TECHNIQUE: A variety of imaging planes and parameters were utilized for visualization of suspected pathology. Images were performed without and with ml Dotarem contrast. FINDINGS: CEREBRUM: Numerous small T2 hyperintensities within the periventricular and subcortical deep white matter subcortical nonspecific but favoring chronic small vessel ischemic changes. No edema, hemorrhage, mass, acute infarction, or inappropriate atrophy. CEREBELLUM: No edema, hemorrhage, mass, acute infarction, or inappropriate atrophy. BRAINSTEM: No edema, hemorrhage, mass, acute infarction, or inappropriate atrophy. CSF SPACES: Ventricles, cisterns, and sulci are appropriate for age. No hydrocephalus, subarachnoid hemorrhage, or mass. SKULL: No mass or other significant visible lesion. SINUSES: 2 separate mucocele/retention cyst within right maxillary sinus. No significant mucosal thickening or fluid levels. ORBITS: Limited views are unremarkable. OTHER: Multiple nodules within the scalp which are low in T1 signal and very low in T2 signal IMPRESSION: 1. No mass, hemorrhage, or suspicious findings to account for patient's symptoms. 2. Age consistent atrophy and chronic small vessel ischemic changes. 3. Multiple subcutaneous scalp nodules/cysts. Please correlate with patient history. Electronically authenticated by: JESSICA LIPSCOMB Date: 2023-02-12 12:37 Normal [facility] US CAROTID ART BILon 02-12-2 023 US CAROTID ART ALEXUS EXAMINATION: US QUARLES TID ART ALEXUS HISTORY: Altered mental status COMPARISON: No relevant comparison available. TECHNIQUE: Duplex Doppler ultrasound analysis of carotid and vertebral arteries. . Bilateral carotid arterial duplex examination was performed using B-mode, color flow and spectral analysis. Carotid stenosis is reported according to validated velocity parameters, similar to NASCET criteria. FINDINGS: RIGHT CAROTID ARTERY: Mild atherosclerotic narrowing of the carotid bulb. RIGHT VERTEBRAL: Antegrade flow. Subclavian: PSV: 75.5 cm/s EDV: 9.0 cm/s CCA: Prox: PSV: 72.1 cm/s EDV: 13.8 cm/s Mid: PSV: 66.8 cm/s EDV: 14.5 cm/s Distal: PSV: 46.0 cm/s EDV: 9.7 cm/s BULB: PSV: 42.4 cm/s EDV: 13.2 cm/s ICA: Prox: PSV: 44.6 cm/s EDV: 13.9 cm/s Mid: PSV: 62.3 cm/s EDV: 27.5 cm/s Distal: PSV: 40.4 cm/s EDV: 11.9 cm/s ECA: PSV: 56.7 cm/s EDV: 9.4 cm/s VERTEBRAL: PSV: 54.5 cm/s EDV: 13.8 cm/s ICA/CCA ratio: PSV: 0.9 EDV: 1.9 LEFT CAROTID ARTERY: Mild atherosclerotic narrowing of carotid bulb. Tortuous internal carotid artery. LEFT VERTEBRAL: Antegrade flow. Subclavian: PSV: 135.2 cm/s EDV: 13.0 cm/s CCA: Prox: PSV: 78.4 cm/s EDV: 18.9 cm/s Mid: PSV: 78.4 cm/s EDV: 20.2 cm/s Distal: PSV: 70.7 cm/s EDV: 20.2 cm/s BULB: PSV: 39.2 cm/s EDV: 10.7 cm/s ICA: Prox: PSV: 57.2 cm/s EDV: 20.6 cm/s Mid: PSV: 118.8 cm/s EDV: 36.5 cm/s Distal: PSV: 58.9 cm/s EDV: 21.5 cm/s ECA: PSV: 110.8 cm/s EDV: 44.6 cm/s VERTEBRAL: PSV: 35.4 cm/s EDV: 12.9 cm/s ICA/CCA ratio: PSV: 1.5 EDV: 1.8 IMPRESSION: 1. 0-49% flow stenosis bilaterally. 2. Mild atherosclerotic disease bilaterally. Spectral Doppler US Thresholds Stenosis (%) PSV (cm/sec) VICA/VCCA 0-49 <150 <2.5 50-69 150-225 2.5-4.0 >70 >225 >4.0 Electronically authenticated by: JESSICA LIPSCOMB Date: 2023-02-12 14:03 Normal [facility] COMPLIANCE DRUG SCREENon PDF . Normal [facility] Comment on above: Performed By: #### C BC #### [facility] [address] [place] [address] Dr. Raul Pereira Summary FINAL Normal [facility] Comment on above: Result Comment: == TOXASSURE COMP DRUG ANALYSIS,UR == Specimen Alert Note: Urinary creatinine is very low; ability to detect some drugs may be compromised; creatinine-normalized drug concentrations should be interpreted with caution. Suggest recollection. == Test Result Flag Units Drug Present Amphetamine 7150 ng/mg creat Amphetamine is available as a schedule II prescription drug. Buprenorphine 17 ng/mg creat Norbuprenorphine 100 ng/mg creat Source of buprenorphine is a scheduled prescription medication. Norbuprenorphine is an expected metabolite of buprenorphine. Gabapentin PRESENT Cyclobenzaprine PRESENT Desmethylcyclobenzaprine PRESENT Desmethylcyclobenzaprine is an expected metabolite of cyclobenzaprine. Duloxetine PRESENT == Test Result Flag Units Ref Range Creatinine 6 L mg/dL >=20 == Declared Medications: Medication list was not provided. == For clinical consultation, please call . == Performed By: #### C BC #### [facility] [address] [place] [address] Dr. Raul Pereira CULTURE URINEon 02-02-2023 CULTURE URINE Isolate 1 Escherichia coli 15,000 cfu/mL of ORGANISM 1 Escherichia coli ANTIBIOTIC M.I.C RX STATUS Ampicillin <=2 S F Ampicillin/Sulbactam <=2 S F Piperacillin/Tazobactam <=4 S F Cefazolin <=4 S F Ceftazidime <=1 S F Ceftriaxone <=1 S F Ertapenem <=0.5 S F Imipenem <=0.25 S F Amikacin <=2 S F Gentamicin <=1 S F Tobramycin <=1 S F Ciprofloxacin <=0.25 S F Levofloxacin <=0.12 S F Nitrofurantoin <=16 S F Trimethoprim/Sulfamethoxa zole <=20 S F Normal [facility] Comment on above: Performed By: #### U RCX #### [facility] [address] [place] [address] Dr. Raul Pereira AMMONIAon 01-31-2023 Ammonia (P) [Moles/Vol] 13 umol/L Normal 11-32 [facility] Comment on above: Performed By: #### A MM ####[facility] [id number] [address]Dr. Raul Pereira CBC AUTO DIFFon 01-31-2023 BASO # 0.1 103/ul Normal 0.0-0.1 [facility] Comment on above: Performed By: #### C BC #### [facility] [address] [place] [address] Dr. Raul Pereira Basophils/100 WBC (Bld) 0.6 % Normal 0.2-2.0 [facility] Comment on above: Performed By: #### C BC #### [facility] [address] [place] [address] Dr. Raul Pereira EO # 0.1 103/ul Normal 0.0-0.7 [facility] Comment on above: Performed By: #### C BC #### [facility] [address] [place] [address] Dr. Raul Pereira Eosinophils/100 WBC (Bld) 1.7 % Normal 0.9-7.0 [facility] Comment on above: Performed By: #### C BC #### [facility] [address] [place] [address] Dr. Raul Pereira Erythrocyte distribution width (RBC) [Ratio] 25.9 % Critically high 11.0-15.0 [facility] Comment on above: Result Comment: 2+ a niso Performed By: #### C BC #### [facility] [address] [place] [address] Dr. Raul Pereira Hematocrit (Bld) [Volume fraction] 42.4 % Normal 36.0-48.0 [facility] Comment on above: Performed By: #### C BC #### [facility] [address] [place] [address] Dr. Raul Pereira Hemoglobin (Bld) [Mass/Vol] 13.1 g/dL Normal 12.0-16.0 [facility] Comment on above: Performed By: #### C BC #### [facility] [address] [place] [address] Dr. Raul Pereira IG # 0.02 10e3/ul Normal 0.00-0.03 [facility] Comment on above: Performed By: #### C BC #### [facility] [address] [place] [address] Dr. Raul Pereira IG % 0.2 % Normal 0.0-0.5 [facility] Comment on above: Performed By: #### C BC #### [facility] [address] [place] [address] Dr. Raul Pereira LYMPH # 2.0 103/ul Normal 1.2-3.8 [facility] Comment on above: Performed By: #### C BC #### [facility] [address] [place] [address] Dr. Raul Pereira Lymphocytes/100 WBC (Bld) 24.8 % Normal 20.5-60.0 [facility] Comment on above: Performed By: #### C BC #### [facility] [address] [place] [address] Dr. Raul Pereira MANUAL DIFF REQ NO Normal [facility] Comment on above: Performed By: #### C BC #### [facility] [address] [place] [address] Dr. Raul Pereira MCH (RBC) [Entitic mass] 25.3 pg Critically low 26.7-34.0 [facility] Comment on above: Performed By: #### C BC #### [facility] [address] [place] [address] Dr. Raul Pereira MCHC (RBC) [Mass/Vol] 30.9 g/dL Normal 29.9-35.2 [facility] Comment on above: Performed By: #### C BC #### [facility] [address] [place] [address] Dr. Raul Pereira MCV (RBC) [Entitic vol] 82.0 fL Normal 81.0-99.0 [facility] Comment on above: Performed By: #### C BC #### [facility] [address] [place] [address] Dr. Raul Pereira MONO # 0.7 103/ul Normal 0.3-0.8 [facility] Comment on above: Performed By: #### C BC #### [facility] [address] [place] [address] Dr. Raul Pereira Monocytes/100 WBC (Bld) 8.8 % Normal 1.7-12.0 [facility] Comment on above: Performed By: #### C BC #### [facility] [address] [address] [address] Raul Pereira NEUT # 5.2 103/ul Normal 1.4-6.5 [facility] Comment on above: Performed By: #### C BC #### [facility] [address] [address] [address] Raul Pereira Neutrophils/100 WBC (Bld) 63.9 % Normal 43.0-75.0 [facility] Comment on above: Performed By: #### C BC #### [facility] [address] [address] [address] Raul Pereira Platelet mean volume (Bld) [Entitic vol] 9.2 fL Critically low 9.5-13.5 [facility] Comment on above: Performed By: #### C BC #### [facility] [address] [address] [address] Raul Pereira PLT 334 103/ul Normal 150-450 [facility] Comment on above: Performed By: #### C BC #### [facility] [address] [address] [address] Raul Pereira RBC 5.17 106/ul Normal 4.20-5.40 [facility] Comment on above: Performed By: #### C BC #### [facility] [address] [address] [address] Raul Pereira WBC 8.2 103/ul Normal 4.0-11.0 [facility] Comment on above: Performed By: #### C BC #### [facility] [address] [address] [address] Raul Pereira SARA - LIPID PROFILEon 2022 CHOL-HDL RATIO NORM SEE BELOW Normal [facility] Comment on above: Result Comment: 3.3 - 4.4 LOW RISK 4.4 - 7.1 AVERAGE RISK 7.1 - 11.0 MODERATE RISK >11.0 HIGH RISK Performed By: #### D ATLIPI ####[facility] [id number] [address]Dr. Raul Pereira Cholesterol [Mass/Vol] 178 mg/dL Normal <=200 [facility] Comment on above: Performed By: #### D ATLIPI ####[facility] [id number] [id number]. Raul Pereira Cholesterol in HDL [Mass/Vol] 73 mg/dL Critically high 40-60 [facility] Comment on above: Performed By: #### D ATLIPI ####[facility] [id number] [id number]. Raul Pereira Cholesterol in LDL [Mass/Vol] 72.0 mg/dL Normal [facility] Comment on above: Performed By: #### D ATLIPI ####[facility] [id number] [address]Dr. Raul Randall Cholesterol.total/C holesterol in HDL [Mass ratio] 2.4 {ratio} Normal [facility] Comment on above: Performed By: #### D ATLIPI ####[facility] [id number] [address]Dr. Raul Pereira HDL NORMAL > or = 60 mg/dl - LO W CARDIOVASCULAR RISK <40 mg/dl - HIGH CARDIOVASCULAR RISK Normal [facility] Comment on above: Performed By: #### D ATLIPI ####[facility] [id number] [address]Dr. Raul Pereira LDL CALC NORMAL SEE BELOW Normal [facility] Comment on above: Result Comment: <100 mg/dl OPTIMAL 100 - 129 mg/dl NEAR OR ABOVE OPTIMAL 130 - 159 mg/dl BORDERLINE HIGH 160 - 189 mg/dl HIGH >190 mg/dl VERY HIGH Performed By: #### D ATLIPI ####[facility] [id number] [address]Dr. Raul Randall Triglyceride [Mass/Vol] 165 mg/dL Critically high <=150 [facility] Comment on above: Performed By: #### D ATLIPI ####[facility] [id number] [address]Dr. Aranzapetr Randall VLDL CALC 33.0 mg/dL Normal [facility] Comment on above: Performed By: #### D ATLIPI ####[facility] [address] [address]Dr. Raul Pereira DRUG SCREEN RAPID (URINE)on 01-31-2023 AMP Positive Abnormal NEGATIVE [facility] Comment on above: Performed By: #### C BC #### [facility] [address] [address] [address] Raul Pereira BAR Negative Normal NEGATIVE [facility] Comment on above: Performed By: #### C BC #### [facility] [address] [address] [address] Raul Pereira BUP Positive Abnormal NEGATIVE [facility] Comment on above: Performed By: #### C BC #### [facility] [address] [address] [address] Raul Pereira BZO Negative Normal NEGATIVE [facility] Comment on above: Performed By: #### C BC #### [facility] [address] [address] [address] Raul Pereira RADHA Negative Normal NEGATIVE [facility] Comment on above: Performed By: #### C BC #### [facility] [address] [address] [address] Raul Pereira CUT-OFFS SEE BELOW Normal [facility] Comment on above: Result Comment: AMP (Amphetamine): 500ng/mL, BAR (Barbituates): 200 ng/mL, BZO (Benzodiazepines): 150 ng/mL, BUP (Buprenorphine): 10 ng/mL, RADHA (Cocaine): 150 ng/mL, mAMP (Methamphetamine): 500 ng/mL, MTD (Methadone): 200 ng/mL, OPI (Opiates): 100 ng/mL, OXY (Oxycodone): 100 ng/mL, PCP (Phencyclidine): 25 ng/mL, PPX (Propoxyphene): 300 ng/mL, THC (Cannabinoids): 50 ng/mL, TCA (Trycyclic Antidepressants): 300 ng/mL Performed By: #### C BC #### [facility] [address] [address] [address] Raul Pereira DRUG CUT HEADER DRUG CLASS TEST SYST EM CUT-OFF CONCENTRATIONS ARE FOLLOWS: Normal [facility] Comment on above: Performed By: #### C BC #### [facility] [address] [address] [address] Raul Pereira mAMP Negative Normal NEGATIVE [facility] Comment on above: Performed By: #### C BC #### [facility] [address] [address] [address] Raul Pereira MTD Negative Normal NEGATIVE [facility] Comment on above: Performed By: #### C BC #### [facility] [address] [place] [address] Dr. Raul Pereira OPI Negative Normal NEGATIVE [facility] Comment on above: Performed By: #### C BC #### [facility] [address] [place] [address] Dr. Raul Pereira OXY Negative Normal NEGATIVE [facility] Comment on above: Performed By: #### C BC #### [facility] [address] [place] [address] Dr. Raul Pereira PCP Negative Normal NEGATIVE [facility] Comment on above: Performed By: #### C BC #### [facility] [address] [address] [address] Raul Pereira PPX Negative Normal NEGATIVE [facility] Comment on above: Performed By: #### C BC #### [facility] [address] [place] [address] Dr. Raul Pereira TCA Positive Abnormal NEGATIVE [facility] Comment on above: Performed By: #### C BC #### [facility] [address] [place] [address] Dr. Raul Pereira THC Negative Normal NEGATIVE [facility] Comment on above: Performed By: #### C BC #### [facility] [address] [place] [address] Dr. Raul Pereira FREE THYROXINE INDEX T7on FTI 2.89 Normal 1.30-4.50 [facility] Comment on above: Performed By: #### C VDTBH #### [facility] [address] [place] [address] Dr. Raul Pereira T3U 39.0 % Normal 30.0-39.0 [facility] Comment on above: Performed By: #### C VDTBH #### [facility] [address] [address] [address] Raul Pereira T4 [Mass/Vol] 7.40 ug/dL Normal 4.80-13.90 [facility] Comment on above: Performed By: #### C VDTBH #### [facility] [address] [address] [address] Raul Pereira GLYCOHEMOGLOBIN A1Con 2022 ADA RECOMMENDATION SEE BELOW Normal [facility] Comment on above: Result Comment: ADA RECOMMENDED LIMIT 4.0 - 6.0 ADA THERAPEUTIC TARGET < 7.0 ACTION SUGGESTED > 7.0 Performed By: #### D ATA1C ####[facility] [id number] [place], [place] [address]FpDr. Raul Pereira Glucose [Mass/Vol] 108 mg/dL Normal [facility] Comment on above: Performed By: #### D ATA1C ####[facility] [id number] [id number]. Raul Pereira HbA1c (Bld) [Mass fraction] 5.4 % Normal 4.5-6.2 [facility] Comment on above: Performed By: #### D ATA1C ####[facility] [id number] [place], [place] [address]EuDr. Raul Pereira IRONon 01-31-2023 Iron [Mass/Vol] 225.0 ug/dL Critically high 50.0-170.0 [facility] Comment on above: Performed By: #### C VDTBH #### [facility] [address] [address] [address] Raul Pereira PROF 14(COMP METB)on 023 Albumin [Mass/Vol] 3.8 g/dL Normal 3.4-5.0 [facility] Comment on above: Performed By: #### C VDTBH #### [facility] [address] [address] [address] Raul Pereira Albumin/Globulin [Mass ratio] 1.2 {ratio} Normal [facility] Comment on above: Performed By: #### C VDTBH #### [facility] [address] [address] [address] Raul Pereira ALP [Catalytic activity/Vol] 77 U/L Normal 46-116 [facility] Comment on above: Performed By: #### C VDTBH #### [facility] [address] [address] [address] Raul Pereira ALT [Catalytic activity/Vol] 19 U/L Normal 14-59 [facility] Comment on above: Performed By: #### C VDTBH #### [facility] [address] [address] [address] Raul Pereira Anion gap [Moles/Vol] 12.9 mmol/L Normal [facility] Comment on above: Performed By: #### C VDTBH #### [facility] [address] [address] [address] Raul Pereira AST [Catalytic activity/Vol] 17 U/L Normal 15-37 [facility] Comment on above: Performed By: #### C VDTBH #### [facility] [address] [address] [address] Raul Pereira Bilirubin [Mass/Vol] 0.3 mg/dL Normal 0.2-1.0 [facility] Comment on above: Performed By: #### C VDTBH #### [facility] [address] [address] [address] Raul Pereira Calcium [Mass/Vol] 8.9 mg/dL Normal 8.5-10.1 [facility] Comment on above: Performed By: #### C VDTBH #### [facility] [address] [address] [address] Raul Pereira Chloride [Moles/Vol] 101 mmol/L Normal 98-107 [facility] Comment on above: Performed By: #### C VDTBH #### [facility] [address] [address] [address] Raul Pereira CO2 [Moles/Vol] 28.5 mmol/L Normal 21.0-32.0 [facility] Comment on above: Performed By: #### C VDTBH #### [facility] [address] [address] [address] Raul Pereira Creatinine [Mass/Vol] 0.59 mg/dL Normal 0.55-1.02 [facility] Comment on above: Performed By: #### C VDTBH #### [facility] [address] [address] [address] Raul Pereira EGFR-AF BERMUDIAN >60 Normal >=60 [facility] Comment on above: Performed By: #### C VDTBH #### [facility] [address] [address] [address] Raul Pereira EGFR-NON AF BERMUDIAN >60 Normal >=60 [facility] Comment on above: Performed By: #### C VDTBH #### [facility] [address] [place] [address] Dr. Raul Pereira Globulin (S) [Mass/Vol] 3.1 g/dL Normal [facility] Comment on above: Performed By: #### C VDTBH #### [facility] [address] [address] [address] Raul Pereira Glucose [Mass/Vol] 84 mg/dL Normal 74-106 [facility] Comment on above: Performed By: #### C VDTBH #### [facility] [address] [address] [address] Raul Pereira Potassium [Moles/Vol] 4.4 mmol/L Normal 3.5-5.1 [facility] Comment on above: Performed By: #### C VDTBH #### [facility] [address] [address] [address] Raul Pereira Protein [Mass/Vol] 6.9 g/dL Normal 6.4-8.2 [facility] Comment on above: Performed By: #### C VDTBH #### [facility] [address] [address] [address] Raul Pereira Sodium [Moles/Vol] 138 mmol/L Normal 136-145 [facility] Comment on above: Performed By: #### C VDTBH #### [facility] [address] [place] [address] Dr. Raul Pereira Urea nitrogen [Mass/Vol] 11.0 mg/dL Normal 7.0-18.0 [facility] Comment on above: Performed By: #### C VDTBH #### [facility] [address] [place] [address] Dr. Raul Pereira Urea nitrogen/Creatinine [Mass ratio] 18.6 mg/mg Normal [facility] Comment on above: Performed By: #### C VDTBH #### [facility] [address] [place] [address] Dr. Raul Pereira TSHon 01-31-2023 TSH 2.354 uIU/mL Normal 0.358-3.740 [facility] Comment on above: Performed By: #### C VDTBH #### [facility] [address] [place] [address] Dr. Raul Pereira UA RANDOM W/MICROSCOPICon BACTERIA NONE SEEN Normal NONE SEEN [facility] Comment on above: Performed By: #### C BC #### [facility] [address] [place] [address] Dr. Raul Pereira Bilirubin Ql (U) Negative Normal NEGATIVE [facility] Comment on above: Performed By: #### C BC #### [facility] [address] [place] [address] Dr. Raul Pereira CAST NONE SEEN Normal NONE SEEN [facility] Comment on above: Performed By: #### C BC #### [facility] [address] [place] [address] Dr. Raul Pereira Clarity (U) CLEAR Normal CLEAR [facility] Comment on above: Performed By: #### C BC #### [facility] [address] [place] [address] Dr. Raul Pereira Color (U) YELLOW Normal YELLOW [facility] Comment on above: Performed By: #### C BC #### [facility] [address] [place] [address] Dr. Raul Pereira Crystals LM Nom (Urine sed) NONE SEEN Normal NONE SEEN [facility] Comment on above: Performed By: #### C BC #### [facility] [address] [address] [address] Raul Pereira Epithelial cells LM Ql (Urine sed) NONE SEEN Normal NONE SEEN /RARE [facility] Comment on above: Performed By: #### C BC #### [facility] [address] [place] [address] Dr. Raul Pereira Glucose Ql (U) Negative Normal NEGATIVE The [facility] Comment on above: Performed By: #### C BC #### [facility] [address] [address] [address] Raul Pereira Hemoglobin Ql (U) Negative Normal NEGATIVE [facility] Comment on above: Performed By: #### C BC #### [facility] [address] [place] [address] Dr. Raul Pereira Ketones Ql (U) Negative Normal NEGATIVE The [facility] Comment on above: Performed By: #### C BC #### [facility] [address] [place] [address] Dr. Raul Pereira LEUKOCYTES Negative Normal NEGATIVE [facility] Comment on above: Performed By: #### C BC #### [facility] [address] [place] [address] Dr. Raul Pereira MUCOUS NONE SEEN Normal NONE SEEN [facility] Comment on above: Performed By: #### C BC #### [facility] [address] [place] [address] Dr. Raul Pereira Nitrite Ql (U) Negative Normal NEGATIVE The [facility] Comment on above: Performed By: #### C BC #### [facility] [address] [place] [address] Dr. Raul Pereira pH (U) 5.5 [pH] Normal 5-9 [facility] Comment on above: Performed By: #### C BC #### [facility] [address] [place] [address] Dr. Raul Pereira RBC NONE SEEN Abnormal 0-2 [facility] Comment on above: Performed By: #### C BC #### [facility] [address] [place] [address] Dr. Raul Pereira SPEC GRAVITY 1.030 Abnormal 1.005-<=1.02 5 [facility] Comment on above: Performed By: #### C BC #### [facility] [address] [place] [address] Dr. Raul Pereira UA PROTEIN Negative Normal NEGATIVE/ TRACE [facility] Comment on above: Performed By: #### C BC #### [facility] [address] [place] [address] Dr. Raul Pereira Urobilinogen Qn (U) 0.2 {Farrukh'U}/dL Normal 0.2 - 1. 0 [facility] Comment on above: Performed By: #### C BC #### [facility] [address] [place] [address] Dr. Raul Pereira WBC NONE SEEN Normal NONE SEEN [facility] Comment on above: Performed By: #### C BC #### [facility] [address] [place] [address] Dr. Raul Pereira VITAMIN D 25 OHon 01-31-2023 VIT D 25-OH 40.8 ng/mL Normal [facility] Comment on above: Performed By: #### C VDTBH #### [facility] [address] [place] [address] Dr. Raul Pereira VIT D RANGES SEE BELOW Normal [facility] Comment on above: Result Comment: <20 ng/mL Vit D deficient 20 - <30 ng/mL Vit D insufficient 30 - 100 ng/mL Vit D sufficient >100 ng/mL Potential Toxicity Performed By: #### C VDTBH #### [facility] [address] [place] [address] Dr. Raul Pereira VC VENOUS REFLUX ALEXUS LMTon 0 01-30-2023 VC VENOUS REFLUX ALEXUS LMT Patient: RHETT MEJIA Exam Date: 01/30/2023 : 1960 Gender:F Ordering : DR NAPOLEON RAHMAN . Admission #: [id number] Family : Order #: [id number] CLICK HERE TO VIEW EXAM RADIOLOGY REPORT PROCEDURE: VEIN CENTER ULTRASOUND VENOUS REFLUX BILATERAL LIMTED COMPARISON: VC VENOUS REFLUX ALEXUS LMT, 08/27/2017. INDICATIONS: Localized edema R60.0 TECHNIQUE: Duplex imaging of the lower extremity to assess the deep and superficial venous system for the presence of deep or superficial venous incompetence and to document the location and severity of disease. The study includes evaluation of the great saphenous vein (GSV), anterior accessory saphenous vein (AASV) and small saphenous vein (SSV). Patient scanned in reverse Trendelenburg and standing. 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 Compressibility: Partial in areas of thrombus. Flow: Deep venous reflux. Preforator: Dist/med lower leg measures 5.1 mm with 3.9s reflux. Mid medial lower leg 7.5 mm with 3.9s reflux. Tech Note: GSV becomes tortuous from mid thigh to distal lower leg. Varicose vein mid medial lower leg measures 6.3 mm with 3.9s reflux. Mid medial lower leg varicosity measures 5.5 mm with 3.5s reflux. Varicose vein proximal medial lower leg measures 6.3 mm with 3.6s reflux. Proximal lateral lower leg varicose vein measures 5.6 mm with 1.2s reflux. Distal anterior lower leg varicosity measures 4.4 mm with 3.7s reflux. LEFT LOWER EXTREMITY: Saphenofemoral Junction Reflux: Yes 8.5 mm 1.5 sec GSV: Diam (mm) Reflux/Time (sec) Proximal Thigh 8.3 Yes 0.9 Mid Thigh 3.8 Yes 0.8 Distal Thigh 2.9 Yes 0.7 Prox Calf 3.3 Yes 3.4 Mid Calf 2.8 Yes 3.0 Saphenopopliteal Junction Relux: 3.1 mm No SSV: Proximal Calf 2.8 Yes 0.3 Mid Calf 2.3 Yes 0.2 AASV: Proximal Thigh 4.3 Yes 0.2 Mid Thigh 2.1 No Distal Thigh Thrombi: No acute or chronic thrombus. Compressibility: Normal. Flow: Deep venous reflux. Senior Back End Java Developer:Mid/medial lower leg 4.3 mm with 0.8s reflux. Proximal posterior calf measures 2.9 mm with 0.6s reflux. Tech Note: Incompetent varicose vein proximal/medial lower leg measures 3.8 mm with 3.9s reflux. Distal/medial thigh varicosity measures 4.2 mm with 3.8s reflux. Varicose vein mid medial/anterior thigh measures 4.2 mm with 2.5s reflux. CONCLUSION: 1. 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 2. 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 Proximal closer with endovenous laser ablation may be beneficial followed by treatment with microfoam chemical ablation. Incompetent lower leg health practice manager vein which may contribute to patient's reflux; laser ablation is recommended. Dilated, incompetent branch saphenous varicosities which would benefit from microfoam chemical ablation. 3. Consultation for endovenous ablation is recommended. Dictated by: Jessica Lipscomb M.D. on 01/31/2023 at 09:46 Approved by: Jessica Lipscomb M.D. on 01/31/2023 at 09:51 Normal [facility] CBC AUTO DIFFon 01-13-2023 BASO # 0.0 103/ul Normal 0.0-0.1 [facility] Comment on above: Performed By: #### C BC #### [facility] [address] [address] [address] Raul Pereira Basophils/100 WBC (Bld) 0.5 % Normal 0.2-2.0 [facility] Comment on above: Performed By: #### C BC #### [facility] [address] [address] [address] Raul Pereira EO # 0.1 103/ul Normal 0.0-0.7 [facility] Comment on above: Performed By: #### C BC #### [facility] [address] [place] [address] Dr. Raul Pereira Eosinophils/100 WBC (Bld) 1.7 % Normal 0.9-7.0 [facility] Comment on above: Performed By: #### C BC #### [facility] [address] [place] [address] Dr. Raul Pereira Erythrocyte distribution width (RBC) [Ratio] 18.4 % Critically high 11.0-15.0 [facility] Comment on above: Performed By: #### C BC #### [facility] [address] [place] [address] Dr. Raul Pereira Hematocrit (Bld) [Volume fraction] 33.1 % Critically low 36.0-48.0 [facility] Comment on above: Performed By: #### C BC #### [facility] [address] [place] [address] Dr. Raul Pereira Hemoglobin (Bld) [Mass/Vol] 10.4 g/dL Critically low 12.0-16.0 [facility] Comment on above: Performed By: #### C BC #### [facility] [address] [place] [address] Dr. Raul Pereira IG # 0.03 10e3/ul Normal 0.00-0.03 [facility] Comment on above: Performed By: #### C BC #### [facility] [address] [place] [address] Dr. Raul Pereira IG % 0.4 % Normal 0.0-0.5 [facility] Comment on above: Performed By: #### C BC #### [facility] [address] [place] [address] Dr. Raul Pereira LYMPH # 1.9 103/ul Normal 1.2-3.8 [facility] Comment on above: Performed By: #### C BC #### [facility] [address] [place] [address] Dr. Raul Pereira Lymphocytes/100 WBC (Bld) 25.2 % Normal 20.5-60.0 [facility] Comment on above: Performed By: #### C BC #### [facility] [address] [address] [address] Raul Pereira MANUAL DIFF REQ NO Normal [facility] Comment on above: Performed By: #### C BC #### [facility] [address] [place] [address] Dr. Raul Pereira MCH (RBC) [Entitic mass] 24.1 pg Critically low 26.7-34.0 [facility] Comment on above: Performed By: #### C BC #### [facility] [address] [place] [address] Dr. Raul Pereira MCHC (RBC) [Mass/Vol] 31.4 g/dL Normal 29.9-35.2 [facility] Comment on above: Performed By: #### C BC #### [facility] [address] [place] [address] Dr. Raul Pereira MCV (RBC) [Entitic vol] 76.6 fL Critically low 81.0-99.0 [facility] Comment on above: Performed By: #### C BC #### [facility] [address] [place] [address] Dr. Raul Pereira MONO # 0.8 103/ul Normal 0.3-0.8 [facility] Comment on above: Performed By: #### C BC #### [facility] [address] [place] [address] Dr. Raul Pereira Monocytes/100 WBC (Bld) 10.7 % Normal 1.7-12.0 [facility] Comment on above: Performed By: #### C BC #### [facility] [address] [place] [address] Dr. Raul Pereira NEUT # 4.7 103/ul Normal 1.4-6.5 [facility] Comment on above: Performed By: #### C BC #### [facility] [address] [place] [address] Dr. Raul Pereira Neutrophils/100 WBC (Bld) 61.5 % Normal 43.0-75.0 [facility] Comment on above: Performed By: #### C BC #### [facility] [address] [place], [place] [address] Dr. Raul Pereira Platelet mean volume (Bld) [Entitic vol] 8.6 fL Critically low 9.5-13.5 [facility] Comment on above: Performed By: #### C BC #### [facility] [address] [place], [place] [address] Dr. Raul Pereira PLT 461 103/ul Critically high 150-450 [facility] Comment on above: Performed By: #### C BC #### [facility] [address] [place], [place] [address] Dr. Raul Pereira RBC 4.32 106/ul Normal 4.20-5.40 [facility] Comment on above: Performed By: #### C BC #### [facility] [address] [place], [place] [address] Dr. Raul Pereira WBC 7.6 103/ul Normal 4.0-11.0 [facility] Comment on above: Performed By: #### C BC #### [facility] [address] [address] [address] Raul Pereira FREE THYROXINE INDEX T7on FTI 2.10 Normal 1.30-4.50 [facility] Comment on above: Performed By: #### T 7, CMP, TSH, LIPID ####[facility] [id number] [place], [place] [address]FtDr. Raul Pereira T3U 35.0 % Normal 30.0-39.0 [facility] Comment on above: Performed By: #### T 7, CMP, TSH, LIPID ####[facility] [id number] [place], [place] [address]LwDr. Raul Pereira T4 [Mass/Vol] 6.00 ug/dL Normal 4.80-13.90 [facility] Comment on above: Performed By: #### T 7, CMP, TSH, LIPID ####[facility] [id number] [place], [place] [address]HbDr. Raul Pereira GLYCOHEMOGLOBIN A1Con 2022 ADA RECOMMENDATION SEE BELOW Normal [facility] Comment on above: Result Comment: ADA RECOMMENDED LIMIT 4.0 - 6.0 ADA THERAPEUTIC TARGET < 7.0 ACTION SUGGESTED > 7.0 Performed By: #### C VDTBH #### [facility] [address] [address] [address] Raul Pereira Glucose [Mass/Vol] 108 mg/dL Normal [facility] Comment on above: Performed By: #### C VDTBH #### [facility] [address] [address] [address] Raul Pereira HbA1c (Bld) [Mass fraction] 5.4 % Normal 4.5-6.2 [facility] Comment on above: Performed By: #### C VDTBH #### [facility] [address] [address] [address] Raul Pereira IRON AND TIBCon 01-13-2023 % SATURATION 3.5 % Normal [facility] Comment on above: Performed By: #### F ETIBC, B12FOL, VITAD ####[facility] [id number] [place] [address]Dr. Raul Pereira Iron [Mass/Vol] 18.0 ug/dL Critically low 50.0-170.0 [facility] Comment on above: Performed By: #### F ETIBC, B12FOL, VITAD ####[facility] [id number] [place] [address]Dr. Raul Pereira TIBC DIRECT 513.0 ug/dL Critically high 250.0-450.0 [facility] Comment on above: Performed By: #### F ETIBC, B12FOL, VITAD ####[facility] [id number] [place] [address]Dr. Raul Pereira LIPID PROFILEon 01-13-2023 CHOL-HDL RATIO NORM SEE BELOW Normal [facility] Comment on above: Result Comment: 3.3 - 4.4 LOW RISK 4.4 - 7.1 AVERAGE RISK 7.1 - 11.0 MODERATE RISK >11.0 HIGH RISK Performed By: #### T 7, CMP, TSH, LIPID ####[facility] [address] [place] [address]Dr. Yilan Pereira Cholesterol [Mass/Vol] 190 mg/dL Normal <=200 [facility] Comment on above: Performed By: #### T 7, CMP, TSH, LIPID ####[facility] [address] [place] [id number]. Raul Pereira Cholesterol in HDL [Mass/Vol] 71 mg/dL Critically high 40-60 [facility] Comment on above: Performed By: #### T 7, CMP, TSH, LIPID ####[facility] [address] [place] [phone]. Aranzapetr Pereira Cholesterol in LDL [Mass/Vol] 104.6 mg/dL Normal [facility] Comment on above: Performed By: #### T 7, CMP, TSH, LIPID ####[facility] [address] [place] [address]Dr. Raul Pereira Cholesterol.total/C holesterol in HDL [Mass ratio] 2.7 {ratio} Normal [facility] Comment on above: Performed By: #### T 7, CMP, TSH, LIPID ####[facility] [address] [place] [id number]. Raul Pereira HDL NORMAL > or = 60 mg/dl - LO W CARDIOVASCULAR RISK <40 mg/dl - HIGH CARDIOVASCULAR RISK Normal [facility] Comment on above: Performed By: #### T 7, CMP, TSH, LIPID ####[facility] [address] [place] [id number]. Raul Pereira LDL CALC NORMAL SEE BELOW Normal [facility] Comment on above: Result Comment: <100 mg/dl OPTIMAL 100 - 129 mg/dl NEAR OR ABOVE OPTIMAL 130 - 159 mg/dl BORDERLINE HIGH 160 - 189 mg/dl HIGH >190 mg/dl VERY HIGH Performed By: #### T 7, CMP, TSH, LIPID ####[facility] [address] [place] [id number]. Raul Pereira Triglyceride [Mass/Vol] 72 mg/dL Normal <=150 [facility] Comment on above: Performed By: #### T 7, CMP, TSH, LIPID ####[facility] [address]ifer[address] [place] [id number]. Raul Pereira VLDL CALC 14.4 mg/dL Normal [facility] Comment on above: Performed By: #### T 7, CMP, TSH, LIPID ####[facility] [address] [place] [address]Dr. Raul Pereira PROF 14(COMP METB)on 023 Albumin [Mass/Vol] 3.5 g/dL Normal 3.4-5.0 [facility] Comment on above: Performed By: #### T 7, CMP, TSH, LIPID ####[facility] [address] [place] [address]Dr. Raul Pereira Albumin/Globulin [Mass ratio] 1.1 {ratio} Normal [facility] Comment on above: Performed By: #### T 7, CMP, TSH, LIPID ####[facility] [address] [place] [address]Dr. Raul Pereira ALP [Catalytic activity/Vol] 92 U/L Normal 46-116 [facility] Comment on above: Performed By: #### T 7, CMP, TSH, LIPID ####[facility] [address] [place] [address]Dr. Raul Pereira ALT [Catalytic activity/Vol] 17 U/L Normal 14-59 [facility] Comment on above: Performed By: #### T 7, CMP, TSH, LIPID ####[facility] [address] [place] [address]Dr. Raul Pereira Anion gap [Moles/Vol] 10.0 mmol/L Normal [facility] Comment on above: Performed By: #### T 7, CMP, TSH, LIPID ####[facility] [address] [place] [address]Dr. Raul Pereira AST [Catalytic activity/Vol] 17 U/L Normal 15-37 [facility] Comment on above: Performed By: #### T 7, CMP, TSH, LIPID ####[facility] Cx[address]oorjsi[address] [place] [address]Dr. Raul Pereira Bilirubin [Mass/Vol] 0.2 mg/dL Normal 0.2-1.0 [facility] Comment on above: Performed By: #### T 7, CMP, TSH, LIPID ####[facility] [address] [place] [id number]. Raul Pereira Calcium [Mass/Vol] 8.8 mg/dL Normal 8.5-10.1 [facility] Comment on above: Performed By: #### T 7, CMP, TSH, LIPID ####[facility] [address]xt[address]om[address] [place] [address]Dr. Raul Pereira Chloride [Moles/Vol] 101 mmol/L Normal 98-107 [facility] Comment on above: Performed By: #### T 7, CMP, TSH, LIPID ####[facility] [address]wh[address] [place] [address]Dr. Raul Pereira CO2 [Moles/Vol] 29.4 mmol/L Normal 21.0-32.0 [facility] Comment on above: Performed By: #### T 7, CMP, TSH, LIPID ####[facility] [address] [place] [address]Dr. Raul Pereira Creatinine [Mass/Vol] 0.50 mg/dL Critically low 0.55-1.02 [facility] Comment on above: Performed By: #### T 7, CMP, TSH, LIPID ####[facility] [address] [place] [address]Dr. Raul Pereira EGFR-AF BERMUDIAN >60 Normal >=60 [facility] Comment on above: Performed By: #### T 7, CMP, TSH, LIPID ####[facility] [address] [place] [address]Dr. Raul Pereira EGFR-NON AF BERMUDIAN >60 Normal >=60 [facility] Comment on above: Performed By: #### T 7, CMP, TSH, LIPID ####[facility] [address]ty[address]ng[address] [place] [address]Dr. Raul Pereira Globulin (S) [Mass/Vol] 3.2 g/dL Normal [facility] Comment on above: Performed By: #### T 7, CMP, TSH, LIPID ####[facility] [address] [place] [address]Dr. Raul Pereira Glucose [Mass/Vol] 88 mg/dL Normal 74-106 [facility] Comment on above: Performed By: #### T 7, CMP, TSH, LIPID ####[facility] [address]abjyl[address] [place] [id number]. Raul Pereira Potassium [Moles/Vol] 4.4 mmol/L Normal 3.5-5.1 [facility] Comment on above: Performed By: #### T 7, CMP, TSH, LIPID ####[facility] [address] [place] [phone]. Raul Pereira Protein [Mass/Vol] 6.7 g/dL Normal 6.4-8.2 [facility] Comment on above: Performed By: #### T 7, CMP, TSH, LIPID ####[facility] [address]fe[address]wuop[address] [place] [address]Dr. Raul Pereira Sodium [Moles/Vol] 136 mmol/L Normal 136-145 [facility] Comment on above: Performed By: #### T 7, CMP, TSH, LIPID ####[facility] [address] [place] [phone]. Raul Pereira Urea nitrogen [Mass/Vol] 12.0 mg/dL Normal 7.0-18.0 [facility] Comment on above: Performed By: #### T 7, CMP, TSH, LIPID ####[facility] [address] [place] [phone]. Raul Pereira Urea nitrogen/Creatinine [Mass ratio] 24.0 mg/mg Normal [facility] Comment on above: Performed By: #### T 7, CMP, TSH, LIPID ####[facility] [address] [place] [id number]. Raul Pereira TSHon 01-13-2023 TSH 1.623 uIU/mL Normal 0.358-3.740 [facility] Comment on above: Performed By: #### T 7, CMP, TSH, LIPID ####[facility] [address] [place] [address]Dr. Raul Pereira VIT B12 AND FOLATEon 02-27-2 023 Cobalamin (Vitamin B12) [Mass/Vol] 872.0 pg/mL Normal 193.0-986.0 [facility] Comment on above: Performed By: #### F ETIBC, B12FOL, VITAD ####[facility] [address] [place] [address]Dr. Raul Pereira FOLATE 21.20 ng/mL Normal 8.60-58.90 [facility] Comment on above: Performed By: #### F ETIBC, B12FOL, VITAD ####[facility] [address] [place] [address]Dr. Raul Pereira VITAMIN D 25 OHon 01-13-2023 VIT D 25-OH 40.6 ng/mL Normal [facility] Comment on above: Performed By: #### F ETIBC, B12FOL, VITAD ####[facility] [address] [place], [place] [address]Dr. Raul Pereira VIT D RANGES SEE BELOW Normal [facility] Comment on above: Result Comment: <20 ng/mL Vit D deficient 20 - <30 ng/mL Vit D insufficient 30 - 100 ng/mL Vit D sufficient >100 ng/mL Potential Toxicity Performed By: #### F ETIBC, B12FOL, VITAD ####[facility] [address] [place], [place] [address]Dr. Raul Pereira CBC AUTO DIFFon 01-10-2023 BASO # 0.1 103/ul Normal 0.0-0.1 [facility] Comment on above: Performed By: #### C VDTBH #### [facility] [address] [place] [address] Dr. Raul Pereira Basophils/100 WBC (Bld) 0.6 % Normal 0.2-2.0 [facility] Comment on above: Performed By: #### C VDTBH #### [facility] [address] [place] [address] Dr. Raul Pereira EO # 0.1 103/ul Normal 0.0-0.7 [facility] Comment on above: Performed By: #### C VDTBH #### [facility] [address] [place] [address] Dr. Raul Pereira Eosinophils/100 WBC (Bld) 1.3 % Normal 0.9-7.0 [facility] Comment on above: Performed By: #### C VDTBH #### [facility] [address] [place] [address] Dr. Raul Pereira Erythrocyte distribution width (RBC) [Ratio] 18.4 % Critically high 11.0-15.0 [facility] Comment on above: Performed By: #### C VDTBH #### [facility] [address] [place] [address] Dr. Raul Pereira Hematocrit (Bld) [Volume fraction] 37.8 % Normal 36.0-48.0 [facility] Comment on above: Performed By: #### C VDTBH #### [facility] [address] [place] [address] Dr. Raul Pereira Hemoglobin (Bld) [Mass/Vol] 11.6 g/dL Critically low 12.0-16.0 [facility] Comment on above: Performed By: #### C VDTBH #### [facility] [address] [place] [address] Dr. Raul Pereira IG # 0.02 10e3/ul Normal 0.00-0.03 [facility] Comment on above: Performed By: #### C VDTBH #### [facility] [address] [place] [address] Dr. Raul Pereira IG % 0.3 % Normal 0.0-0.5 [facility] Comment on above: Performed By: #### C VDTBH #### [facility] [address] [place] [address] Dr. Raul Pereira LYMPH # 1.7 103/ul Normal 1.2-3.8 [facility] Comment on above: Performed By: #### C VDTBH #### [facility] [address] [place] [address] Dr. Raul Pereira Lymphocytes/100 WBC (Bld) 21.0 % Normal 20.5-60.0 [facility] Comment on above: Performed By: #### C VDTBH #### [facility] [address] [place] [address] Dr. Raul Pereira MANUAL DIFF REQ NO Normal [facility] Comment on above: Performed By: #### C VDTBH #### [facility] [address] [place] [address] Dr. Raul Pereira MCH (RBC) [Entitic mass] 24.1 pg Critically low 26.7-34.0 [facility] Comment on above: Performed By: #### C VDTBH #### [facility] [address] [place] [address] Dr. Raul Pereira MCHC (RBC) [Mass/Vol] 30.7 g/dL Normal 29.9-35.2 [facility] Comment on above: Performed By: #### C VDTBH #### [facility] [address] [place] [address] Dr. Raul Pereira MCV (RBC) [Entitic vol] 78.6 fL Critically low 81.0-99.0 [facility] Comment on above: Performed By: #### C VDTBH #### [facility] [address] [place] [address] Dr. Raul Pereira MONO # 0.6 103/ul Normal 0.3-0.8 [facility] Comment on above: Performed By: #### C VDTBH #### [facility] [address] [place] [address] Dr. Raul Pereira Monocytes/100 WBC (Bld) 7.5 % Normal 1.7-12.0 [facility] Comment on above: Performed By: #### C VDTBH #### [facility] [address] [place] [address] Dr. Raul Pereira NEUT # 5.4 103/ul Normal 1.4-6.5 [facility] Comment on above: Performed By: #### C VDTBH #### [facility] [address] [place] [address] Dr. Raul Pereira Neutrophils/100 WBC (Bld) 69.3 % Normal 43.0-75.0 [facility] Comment on above: Performed By: #### C VDTBH #### [facility] [address] [place] [address] [address] Raul Pereira Platelet mean volume (Bld) [Entitic vol] 9.0 fL Critically low 9.5-13.5 [facility] Comment on above: Performed By: #### C VDTBH #### [facility] [address] [id number] [address] Raul Pereira PLT 516 103/ul Critically high 150-450 [facility] Comment on above: Performed By: #### C VDTBH #### [facility] [address] [place] [address] [address] Raul Pereira RBC 4.81 106/ul Normal 4.20-5.40 [facility] Comment on above: Performed By: #### C VDTBH #### [facility] [address] [place] [address] [address] Raul Pereira WBC 7.8 103/ul Normal 4.0-11.0 [facility] Comment on above: Performed By: #### C VDTBH #### [facility] [address] [place] [address] [address] Raul Pereira CULTURE BLOODon 01-10-2023 Microscopic examination of blood, culture Culture Observations: NO GROWTH AT 5 DAYS. Normal [facility] Comment on above: Performed By: #### B LDCX2 #### [facility] [address] [address] [address] Raul Pereira Microscopic examination of blood, culture Culture Observations: NO GROWTH AT 5 DAYS. Normal [facility] Comment on above: Performed By: #### B LDCX1 ####[facility] [address] [place] [address]Dr. Raul Pereira PROF 14(COMP METB)on 023 Albumin [Mass/Vol] 3.7 g/dL Normal 3.4-5.0 [facility] Comment on above: Performed By: #### C BC #### [facility] [address] [place] [address] [address] Raul Pereira Albumin/Globulin [Mass ratio] 0.9 {ratio} Normal [facility] Comment on above: Performed By: #### C BC #### [facility] [address] [place] [address] Dr. Raul Pereira ALP [Catalytic activity/Vol] 105 U/L Normal 46-116 [facility] Comment on above: Performed By: #### C BC #### [facility] [address] [address] [address] Raul Pereira ALT [Catalytic activity/Vol] 18 U/L Normal 14-59 [facility] Comment on above: Performed By: #### C BC #### [facility] [address] [place] [address] Dr. Raul Pereira Anion gap [Moles/Vol] 10.8 mmol/L Normal [facility] Comment on above: Performed By: #### C BC #### [facility] [address] [place] [address] Dr. Raul Pereira AST [Catalytic activity/Vol] 21 U/L Normal 15-37 [facility] Comment on above: Performed By: #### C BC #### [facility] [address] [place] [address] Dr. Raul Pereira Bilirubin [Mass/Vol] 0.3 mg/dL Normal 0.2-1.0 [facility] Comment on above: Performed By: #### C BC #### [facility] [address] [place] [address] Dr. Raul Pereira Calcium [Mass/Vol] 9.1 mg/dL Normal 8.5-10.1 [facility] Comment on above: Performed By: #### C BC #### [facility] [address] [place] [address] Dr. Raul Pereira Chloride [Moles/Vol] 100 mmol/L Normal 98-107 [facility] Comment on above: Performed By: #### C BC #### [facility] [address] [place] [address] Dr. Raul Pereira CO2 [Moles/Vol] 30.8 mmol/L Normal 21.0-32.0 [facility] Comment on above: Performed By: #### C BC #### [facility] [address] [place] [address] Dr. Raul Pereira Creatinine [Mass/Vol] 0.58 mg/dL Normal 0.55-1.02 [facility] Comment on above: Performed By: #### C BC #### [facility] [address] [address] [address] Raul Pereira EGFR-AF BERMUDIAN >60 Normal >=60 [facility] Comment on above: Performed By: #### C BC #### [facility] [address] [address] [address] Ralu Pereira EGFR-NON AF BERMUDIAN >60 Normal >=60 [facility] Comment on above: Performed By: #### C BC #### [facility] [address] [place] [address] Dr. Raul Pereira Globulin (S) [Mass/Vol] 4.1 g/dL Normal [facility] Comment on above: Performed By: #### C BC #### [facility] [address] [place] [address] Dr. Raul Pereira Glucose [Mass/Vol] 86 mg/dL Normal 74-106 [facility] Comment on above: Performed By: #### C BC #### [facility] [address] [place] [address] Dr. Raul Pereira Potassium [Moles/Vol] 4.6 mmol/L Normal 3.5-5.1 [facility] Comment on above: Performed By: #### C BC #### [facility] [address] [place] [address] Dr. Raul Pereira Protein [Mass/Vol] 7.8 g/dL Normal 6.4-8.2 [facility] Comment on above: Performed By: #### C BC #### [facility] [address] [place] [address] Dr. Raul Pereira Sodium [Moles/Vol] 137 mmol/L Normal 136-145 [facility] Comment on above: Performed By: #### C BC #### [facility] [address] [place] [address] Dr. Raul Pereira Urea nitrogen [Mass/Vol] 9.0 mg/dL Normal 7.0-18.0 [facility] Comment on above: Performed By: #### C BC #### [facility] [address] [address] [address] Raul Pereira Urea nitrogen/Creatinine [Mass ratio] 15.5 mg/mg Normal [facility] Comment on above: Performed By: #### C BC #### [facility] [address] [id number] Raul Pereira US PREMA DOP LEG RTon 01-10-20 US PREMA DOP LEG RT EXAMINATION: PREMA DOP LEG RT HISTORY: Cellulitis , right lower extremity pain and swelling COMPARISON: No relevant comparison available. FINDINGS: REGION: Right lower extremity THROMBI: None. COMPRESSIBILITY: Normal compressibility. FLOW: Normal waveform and antegrade flow between 5 and 20 cm/s. OTHER: Subcutaneous edema. IMPRESSION: 1. No appreciable deep vein thrombus within the right lower extremity. 2. Limited evaluation of calf veins due to prominent edema and swelling. Electronically authenticated by: JESSICA LIPSCOMB Date: 2023-01-10 10:43 Normal [facility] Covid-19 PCR (CVDTB)on 11-18 SARS-CoV-2 (COVID-19) RNA IMELDA+probe Ql (Unsp spec) Not detected Normal NOT DETECTED [facility] Comment on above: Result Comment: This test is not yet approved or cleared by the [place] FDA. When there are no FDA-approved or cleared tests available, and other criteria are met, FDA can make tests available under an emergency access mechanism called an Emergency Use Authorization (EUA). The EUA for this test is supported by the Early Childhood Coordinator of Health and Human Service's (HHS's) declaration that circumstances exist to justify the emergency use of in vitro diagnostics for the detection and/or diagnosis of the virus that causes COVID-19. This EUA will remain in effect (meaning this test can be used) for the duration of the COVID-19 declaration justifying emergency of IVDs, unless it is terminated or revoked by FDA (after which the test may no longer be used). When diagnostic testing is negative, the possibility of a false negative should be considered in the context of a patient's recent exposures and the presence of clinical signs and symptoms consistent with SARS-CoV-2. Performed By: #### C VDTBH #### [facility] [address] [address] [address] Raul Pereira CALCIUMon 12-03-2022 Calcium [Mass/Vol] 9.7 mg/dL Normal 8.5-10.1 [facility] Comment on above: Performed By: #### C VDTBH #### [facility] [address] [address] [address] Raul Pereira CREATININEon 12-03-2022 Creatinine [Mass/Vol] 0.53 mg/dL Critically low 0.55-1.02 [facility] Comment on above: Performed By: #### C BC #### [facility] [address] [place] [address] Dr. Raul Preeira EGFR-AF BERMUDIAN >60 Normal >=60 [facility] Comment on above: Performed By: #### C BC #### [facility] [address] [address] [address] Raul Pereira EGFR-NON AF BERMUDIAN >60 Normal >=60 [facility] Comment on above: Performed By: #### C BC #### [facility] [address] [place] [address] Dr. Raul Pereira Office Visiton 08-27-2022 Follow-up visit [id number] Lex Mejia rri L 1960 F Date Provider Department Center 08/27/2022 Nella-MICAELA GUPTA [facility] SURG Second Fl No family history on file Level of Service:81370 HI POSTOP FOLLOW UP VISIT RELATED TO ORIGINAL PX Reason for Visit and Comments: Post-op [483] - Rhett is here today for a post op visit, s/p 08/16/22 LAP ZEESHAN Normal [facility] HISTOLOGY - TISSUE EXAMon LAB AP CASE REPORT Normal [facility] Comment on above: Order Comment: Pre-o p diagnosis:Calculus of gallbladder without cholecystitis without obstruction [K80.20] Result Comment: Surg ical Pathology Case: [id number] Authorizing Provider: Micaela Gupta MD Collected: 08/16/2022 0842 Ordering Location: [facility] Main Operating Room Received: 08/16/2022 1001 Pathologist: Maricruz Warren MD Specimen: Gallbladder, GALLBLADDER Performed By: #### L [id number] ####[facility] [place] [address] LAB AP CLINICAL INFORMATION Normal [facility] Comment on above: Order Comment: Pre-o p diagnosis:Calculus of gallbladder without cholecystitis without obstruction [K80.20] Result Comment: Pre- op diagnosis: Calculus of gallbladder without cholecystitis without obstruction [K80.20] Performed By: #### L [id number] ####[facility] [place] [address] LAB AP GROSS DESCRIPTION A. Gallbladder. Normal [facility] Comment on above: Order Comment: Pre-o p diagnosis:Calculus of gallbladder without cholecystitis without obstruction [K80.20] Result Comment: Rece ived in formalin , labeled Rhett L Hilary, GALLBLADDER . The specimen consists of a 9.0 x 4.0 x 3.0 cm cholecystectomy specimen with a closed cystic duct that measures 0.3 cm in length and 0.3 cm in diameter. Serosal surface is red-quevedo smooth and glistening with a finely roughened hepatic bed surface. The specimen is filled with dark quevedo viscous bile. The mucosal surface is red-quevedo flattened with multiple yellow speckles dispersed on the mucosal surface consistent with cholesterolosis. There are multiple black irregular gallstones measuring 2.5 x 1.8 x 0.5 cm and ranging from 0.1 to 0.7 cm in greatest dimension. The wall measures 0.1 to 0.2 cm in maximum thickness. Statistical Modeler sections submitted as follows: Cassette 1: Cystic duct resection margin and neck Cassette 2: Body and fundus Ankit Koroma, Pathologists' Rehab Director Performed By: #### L [id number] ####[facility] (BEAKER)[address] [place] [address] LAB AP MICROSCOPIC DESCRIPTION Microscopic examination performed Normal [facility] Comment on above: Order Comment: Pre-o p diagnosis:Calculus of gallbladder without cholecystitis without obstruction [K80.20] Performed By: #### L [id number] ####[facility] (BEAKER)[address] [place] [address] LAB AP REPORT FINAL DIAGNOSIS NARRATIVE [facility] Comment on above: Order Comment: Pre-o p diagnosis:Calculus of gallbladder without cholecystitis without obstruction [K80.20] Result Comment: Gall bladder, cholecystectomy: - Cholelithiasis and cholesterolosis. Performed By: #### L [id number] ####[facility] ([facility]ER)[address] [place] [address] on 08-16-2022 HP ----- ----- Attestation signed by Micaela Gupta MD at 08/16/2022 7:34 AM Attending Physician Statement I have discussed the case, including pertinent history and exam findings with Dr. Del Angel, surgical dental assistant and have personally seen the patient. I agree with the assessment, plan and orders as documented. [phone] pager [phone] phone ----- [facility] General Surgery HISTORY & PHYSICAL Chief Complaint: RUQ abdominal pain History of Present Illness: Rhett Mejia is a 62 y.o. female with history of signs and symptoms consistent with symptomatic cholelithiasis. Patient presents today for laparoscopic cholecystectomy Review of Systems Constitutional: Negative. HENT: Negative. Eyes: Negative. Respiratory: Negative. Gastrointestinal: Positive for abdominal distention, abdominal pain and nausea. Endocrine: Negative. Genitourinary: Negative. Musculoskeletal: Negative. Skin: Negative. Allergic/Immunologic: Negative. Neurological: Negative. Hematological: Negative. Psychiatric/Behavioral: Negative. Past Medical History: Diagnosis Date Anxiety Arthritis Chronic bronchitis ([facility]) Depression DVT (deep venous thrombosis) ([facility]) Gall bladder disease GERD (gastroesophageal reflux disease) Past Surgical History: Procedure Laterality Date APPENDECTOMY GASTRIC BYPASS repair of gastric bypass HYSTERECTOMY TONSILLECTOMY TUBAL LIGATION Allergies Allergen Reactions Iodinated Contrast Media Other reaction(s): other Iodine Other reaction(s): other Latex Other reaction(s): other Loratadine Other reaction(s): other Montelukast Other reaction(s): other Povidone-Iodine Other reaction(s): other Soy Soybean Other reaction(s): other Current Facility-Administered Medications: ceFAZolin (Ancef) IVPB 2 g in 100 mL (Mini-Bag Plus) in NS, 2 g, intravenous, Once, Micaela Gupta MD [START ON 08/17/2022] lactated Ringer's infusion, 30 mL/hr, intravenous, Continuous, Austin Grier MD lidocaine (Xylocaine) 20 mg/mL (2 %) injection - ADS Override Pull, , , , oxidized cellulose (Surgicel) 4 in x 8 in sheet - ADS Override Pull, , , , [START ON 08/17/2022] Insert peripheral IV, , , Once AND [START ON 08/17/2022] Saline lock IV, , , Once AND [START ON 08/17/2022] sodium chloride flush 10 mL, 10 mL, intravenous, q8h PRN, Austin Grier MD Social History Socioeconomic History Marital status: Spouse name: Not on file Number of children: Not on file Years of education: Not on file Highest education level: Not on file Occupational History Not on file Tobacco Use Smoking status: Every Day Packs/day: 1.00 Years: 45.00 Pack years: 45.00 Types: Cigarettes Smokeless tobacco: Never Vaping Use Vaping Use: Never used Substance and Sexual Activity Alcohol use: Yes Drug use: Not Currently Sexual activity: Not on file Other Topics Concern Not on file Social History Narrative Not on file Social Determinants of Health Financial Resource Strain: Not on file Food Insecurity: Not on file Transportation Needs: Not on file Physical Activity: Not on file Stress: Not on file Social Connections: Not on file Intimate Partner Violence: Not on file Housing Stability: Not on file No family history on file. Physical Exam Constitutional: General: She is not in acute distress. Appearance: Normal appearance. She is normal weight. HENT: Head: Normocephalic and atraumatic. Nose: Nose normal. Mouth/Throat: Mouth: Mucous membranes are moist. Pharynx: No oropharyngeal exudate. Eyes: General: No scleral icterus. Cardiovascular: Rate and Rhythm: Normal rate. Pulses: Normal pulses. Pulmonary: Effort: Pulmonary effort is normal. No respiratory distress. Abdominal: General: There is no distension. Palpations: Abdomen is soft. Tenderness: There is no abdominal tenderness. Musculoskeletal: General: No swelling. Normal range of motion. Cervical back: Normal range of motion. Skin: General: Skin is warm and dry. Neurological: General: No focal deficit present. Mental Status: She is alert and oriented to person, place, and time. Psychiatric: Mood and Affect: Mood normal. Behavior: Behavior normal. Vital Signs: Blood pressure 138/72, pulse 80, temperature 36.1 ???C (97 ???F), resp. rate 20, height 1.6 m (5' 3 ), weight 59.7 kg (131 lb 9.8 oz), SpO2 96 %. Admission Weight: Weight: 59.7 kg (131 lb 9.8 oz) Labs: No results found for: WBC, HGB, HCT, MCV, PLT No results found for: GLU, CALCIUM, NA, K, CO2, CL, BUN, CREATININE No results found for: AMYLASE No results found for: LIPASE No results found for: ALT, AST, GGT, ALKPHOS, LABBILI Lab Results Component Value (more content not included)... Normal [facility] NURSNOTEon 08-16-2022 NURSNOTE Stable. Pain minimal . DC criteria met. IV dc'd and patient getting dressed. 1155 Stable for discharge. Normal [facility] NURSNOTE DC instructions revi ewed with patient and Granddaughter, allowed time for questions, copy given. Normal [facility] NURSNOTE Report rec'd and car e assumed. No assessment changes. Pain minimal. Normal [facility] NURSNOTE 0920 [facility] called. [facility] CHOLECYSTECTOMY, LAPAROSCOPIC Operative Note Date: 08/16/2022 Location: [facility] OR Name: Rhett Mejia, : 1960, Diagnosis Pre-op Diagnosis * Calculus of gallbladder without cholecystitis without obstruction [K80.20] * History of gastric bypass [Z98.84] Post-op Diagnosis * Calculus of gallbladder without cholecystitis without obstruction [K80.20] * History of gastric bypass [Z98.84] Procedures CHOLECYSTECTOMY, LAPAROSCOPIC 98620 - HI LAPS SURG CHOLECYSTECTOMY W/CHOLANGIOGRAPHY Surgeons * Micaela Gupta - Primary * Robyn Del Angel Procedure Summary Anesthesia: General ASA: III Estimated Blood Loss: 10 mL Total IV Fluids: 1000 mL Drains: * None in log * Specimens ID Source Type Tests Collected By Collected At Frozen? Priority Lab ID A Gallbladder Tissue HISTOLOGY - TISSUE EXAM Micaela Gupta MD 08/16/22 [id number] No [id number] Description: GALLBLADDER Staff: Generalist: Zeny De La Cruz RN Scrub Person: Octavia Bolanos CST Indications: Rhett Mejia is an 62 y.o. female who is having surgery for Calculus of gallbladder without cholecystitis without obstruction [K80.20]. Laparoscopic cholecystectomy was offered to the patient, informed consent was obtained. Procedure Details: The patient was seen in the preoperative area. The risks, benefits, complications, treatment options, non-operative alternatives, expected recovery and outcomes were discussed with the patient. The possibilities of reaction to medication, pulmonary aspiration, injury to surrounding structures, bleeding, recurrent infection, the need for additional procedures, failure to diagnose a condition, and creating a complication requiring transfusion or operation were discussed with the patient. The patient concurred with the proposed plan, giving informed consent. The site of surgery was properly noted/marked if necessary per policy. The patient has been actively warmed in preoperative area. Preoperative antibiotics have been ordered and given within 1 hours of incision. Venous thrombosis prophylaxis have been ordered including bilateral sequential compression devices SURGERY: The patient was brought to the operating room, laid on the operating table in supine position. General anesthesia was initiated. Abdomen was prepped and draped in usual sterile fashion. Time-out was completed. A right paraumbilical 5 mm Optiview trocar was inserted under direct vision. CO2 insufflation was started. Extensive adhesion was encountered. Under direct vision, 2 right subcostal 5 mm trocar was inserted. Sharp dissection to take down the midline adhesion from previous surgery. The gallbladder was visualized as mildly distended but not gangrenous. Gallbladder wall thickening is present. There were of large amount omentum adhesions on the gallbladder, signs of chronic cholecystitis. Fundus of gallbladder was retracted superiorly. Infundibulum of the gallbladder was retracted laterally. Blunt dissection was used to take down the adhesions and also infundibular blunt dissection to achieve the critical view of Calot. The cystic duct and cystic artery were clearly recognized. Both duct and artery were double clipped proximally, single clipped distally with Hem-O-Coleman and then divided with the scissors. Then the gallbladder was removed from liver bed with electrocautery and put into an EndoCatch bag. The gallbladder was removed from subxiphoid incision inside the EndoCatch bag. All the trocars were removed. CO2 was desufflated. The fascia of subxiphoid incision was closed by 0-Vicryl Interrupted suture, which was placed by En Spaulding needle. Skin was closed by the 4-0 Vicryl subcuticular suture. Bacitracin ointment and cotton ball was applied to the umbilicus. The operation was completed without complication. I was present during the entire operation. At end of surgery the instrument count and sponge count were correct. Findings: Intra-abdominal adhesions; significant adhesion around gallbladder. Complications: None; patient tolerated the procedure well. Disposition: PACU - hemodynamically stable. Condition: stable Normal [facility] POCT GLUCOSE METER UNSOLICIT ED RESULTSon 08-16-2022 Glucose [Mass/Vol] 88 mg/dL Normal 70-105 [facility] Comment on above: Result Comment: epaw low Performed By: #### L [id number] #### [facility] ([facility]AKER) [address] [place] [address] POCT SARS-COV-2 PCRon 2021 POC SARS-COV-2 ANTIGEN Negative Normal Negative [facility] Comment on above: Result Comment: ID N OW COVID-19 assay performed on the ID NOW Instrument is a rapid molecular in vitro diagnostic test utilizing an isothermal nucleic acid amplification technology intended for the qualitative detection of nucleic acid from the SARS-CoV-2 virus in direct anterior nasal(nasal), nasopharyngeal or throat swabs from individuals who are suspected of COVID-19 by their healthcare provider within the first seven days of the onset of symptoms.Testing is limited to laboratories certified under the Clinical Laboratory Improvement Amendments of 1988 (CLIA), 42 U.S.C. ???263a,that meet the requirements to perform high, moderate, or waived complexity tests. The ID NOW COVID-19 assay is also authorized for use at the Point of Care (POC), i.e., in patient care settings operating under a CLIA Certificate of Waiver, Certificate of Compliance, or Certificate of Accreditation. Performed By: #### L [id number] ####[facility] (BEAKER)[address] [place] [address] Orders Onlyon 08-14-2022 Orders Only [id number] Lex Mejia rrmonica L 1960 F Date Provider Department Center 08/14/2022 [id number], HISTORICAL [facility] Medical C No family history on file Normal [facility] [id number] 08-13-2022 [id number] NPO after MN Must have a equipment driver to take you home and someone to stay for 24 hours after surgery. No jewelry. Hold the meds we spoke about: NSAIDS Take the meds we spoke about w/a sip of water DOS: GAPAPENTIN, NEXIUM, INHALER, CYMBALTA Bring insurance card and ID. LABS AND COVID TO BE DONE IN [place]. Normal [facility] CBC AUTO DIFFon 08-13-2022 BASO # 0.0 103/ul Normal 0.0-0.1 [facility] Comment on above: Performed By: #### C BC #### [facility] [address] [place], [place] [address] Dr. Raul Pereira Basophils/100 WBC (Bld) 0.4 % Normal 0.2-2.0 [facility] Comment on above: Performed By: #### C BC #### [facility] [address] [place] [address] [address] Raul Pereira EO # 0.1 103/ul Normal 0.0-0.7 [facility] Comment on above: Performed By: #### C BC #### [facility] [address] [place] [address] Dr. Raul Pereira Eosinophils/100 WBC (Bld) 1.2 % Normal 0.9-7.0 [facility] Comment on above: Performed By: #### C BC #### [facility] [address] [place] [address] Dr. Raul Pereira Erythrocyte distribution width (RBC) [Ratio] 18.6 % Critically high 11.0-15.0 [facility] Comment on above: Performed By: #### C BC #### [facility] [address] [place] [address] Dr. Raul Pereira Hematocrit (Bld) [Volume fraction] 39.1 % Normal 36.0-48.0 [facility] Comment on above: Performed By: #### C BC #### [facility] [address] [place] [address] Dr. Raul Pereira Hemoglobin (Bld) [Mass/Vol] 12.5 g/dL Normal 12.0-16.0 [facility] Comment on above: Performed By: #### C BC #### [facility] [address] [place] [address] Dr. Raul Pereira IG # 0.03 10e3/ul Normal 0.00-0.03 [facility] Comment on above: Performed By: #### C BC #### [facility] [address] [place] [address] Dr. Raul Pereira IG % 0.4 % Normal 0.0-0.5 [facility] Comment on above: Performed By: #### C BC #### [facility] [address] [place] [address] Dr. Raul Pereira LYMPH # 2.0 103/ul Normal 1.2-3.8 [facility] Comment on above: Performed By: #### C BC #### [facility] [address] [place] [address] Dr. Raul Pereira Lymphocytes/100 WBC (Bld) 27.2 % Normal 20.5-60.0 [facility] Comment on above: Performed By: #### C BC #### [facility] [address] [place] [address] Dr. Raul Pereira MANUAL DIFF REQ NO Normal [facility] Comment on above: Performed By: #### C BC #### [facility] [address] [place] [address] Dr. Raul Pereira MCH (RBC) [Entitic mass] 27.2 pg Normal 26.7-34.0 [facility] Comment on above: Performed By: #### C BC #### [facility] [address] [place] [address] Dr. Raul Pereira MCHC (RBC) [Mass/Vol] 32.0 g/dL Normal 29.9-35.2 [facility] Comment on above: Performed By: #### C BC #### [facility] [address] [place] [address] Dr. Raul Pereira MCV (RBC) [Entitic vol] 85.2 fL Normal 81.0-99.0 [facility] Comment on above: Performed By: #### C BC #### [facility] [address] [place] [address] Dr. Raul Pereira MONO # 0.7 103/ul Normal 0.3-0.8 [facility] Comment on above: Performed By: #### C BC #### [facility] [address] [place] [address] Dr. Raul Pereira Monocytes/100 WBC (Bld) 9.3 % Normal 1.7-12.0 [facility] Comment on above: Performed By: #### C BC #### [facility] [address] [place] [address] Dr. Raul Pereira NEUT # 4.4 103/ul Normal 1.4-6.5 [facility] Comment on above: Performed By: #### C BC #### [facility] [address] [place] [address] [address] Raul Pereira Neutrophils/100 WBC (Bld) 61.5 % Normal 43.0-75.0 [facility] Comment on above: Performed By: #### C BC #### [facility] [address] [place] [address] Dr. Raul Pereira Platelet mean volume (Bld) [Entitic vol] 8.7 fL Critically low 9.5-13.5 [facility] Comment on above: Performed By: #### C BC #### [facility] [address] [place] [address] Dr. Raul Pereira PLT 387 103/ul Normal 150-450 [facility] Comment on above: Performed By: #### C BC #### [facility] [address] [place] [address] Dr. Raul Pereira RBC 4.59 106/ul Normal 4.20-5.40 [facility] Comment on above: Performed By: #### C BC #### [facility] [address] [place] [address] Dr. Raul Pereira WBC 7.2 103/ul Normal 4.0-11.0 [facility] Comment on above: Performed By: #### C BC #### [facility] [address] [place] [address] Dr. Raul Pereira [facility] SARS-CoV-2 (COVID-19) RNA IMELDA+probe Ql (Unsp spec) Not detected Normal NOT DETECTED [facility] Comment on above: Result Comment: This test is not yet approved or cleared by the [place] FDA. When there are no FDA-approved or cleared tests available, and other criteria are met, FDA can make tests available under an emergency access mechanism called an Emergency Use Authorization (EUA). The EUA for this test is supported by the Early Childhood Coordinator of Health and Human Service's (HHS's) declaration that circumstances exist to justify the emergency use of in vitro diagnostics for the detection and/or diagnosis of the virus that causes COVID-19. This EUA will remain in effect (meaning this test can be used) for the duration of the COVID-19 declaration justifying emergency of IVDs, unless it is terminated or revoked by FDA (after which the test may no longer be used). When diagnostic testing is negative, the possibility of a false negative should be considered in the context of a patient's recent exposures and the presence of clinical signs and symptoms consistent with SARS-CoV-2. Performed By: #### C VDTB #### [facility] [address] [place] [address] Dr. Raul Pereira PROF CHEM 8 (BAS METB)on Anion gap [Moles/Vol] 11.5 mmol/L Normal [facility] Comment on above: Performed By: #### C BC #### [facility] [address] [place] [address] Dr. Raul Pereira Calcium [Mass/Vol] 9.5 mg/dL Normal 8.5-10.1 [facility] Comment on above: Performed By: #### C BC #### [facility] [address] [place] [address] Dr. Raul Pereira Chloride [Moles/Vol] 101 mmol/L Normal 98-107 [facility] Comment on above: Performed By: #### C BC #### [facility] [address] [place] [address] Dr. Raul Pereira CO2 [Moles/Vol] 29.6 mmol/L Normal 21.0-32.0 [facility] Comment on above: Performed By: #### C BC #### [facility] [address] [place] [address] Dr. Raul Pereira Creatinine [Mass/Vol] 0.65 mg/dL Normal 0.55-1.02 [facility] Comment on above: Performed By: #### C BC #### [facility] [address] [place] [address] Dr. Raul Pereira EGFR-AF BERMUDIAN >60 Normal >=60 [facility] Comment on above: Performed By: #### C BC #### [facility] [address] [place] [address] Dr. Raul Pereira EGFR-NON AF BERMUDIAN >60 Normal >=60 [facility] Comment on above: Performed By: #### C BC #### [facility] [address] [place] [address] [address] Raul Pereira Glucose [Mass/Vol] 104 mg/dL Normal 74-106 [facility] Comment on above: Performed By: #### C BC #### [facility] [address] [place] [id number] Raul Pereira Potassium [Moles/Vol] 4.1 mmol/L Normal 3.5-5.1 [facility] Comment on above: Performed By: #### C BC #### [facility] [address] [place] [address] [address] Raul Pereira Sodium [Moles/Vol] 138 mmol/L Normal 136-145 [facility] Comment on above: Performed By: #### C BC #### [facility] [address] [place] [address] [address] Raul Pereira Urea nitrogen [Mass/Vol] 11.0 mg/dL Normal 7.0-18.0 [facility] Comment on above: Performed By: #### C BC #### [facility] [address] [place] [address] [address] Raul Pereira Urea nitrogen/Creatinine [Mass ratio] 16.9 mg/mg Normal [facility] Comment on above: Performed By: #### C BC #### [facility] [id number] Raul Pereira Office Visiton 08-06-2022 Follow-up visit [id number] Lex Mejia L 1960 F Date Provider Department Center 08/06/2022 Nella-MICAELA GUPTA [facility] SURG Second Fl No family history on file Level of Service:97601 HI OFFICE/OUTPATIENT ESTABLISHED LOW MDM 20-29 MIN Reason for Visit and Comments: Consult [484] - Rhett is here for a gallbladder consult. Rhett also c/o swelling in right leg with pain in calf. Normal [facility] PROTIME-INRon 08-06-2022 INR IN PPP BY COAGULATION ASSAY 0.89 Low 0.90-1.10 [facility] Comment on above: Result Comment: ACCC P RECOMMENDED INR FOR WARFARIN THERAPY CONDITION INR PROPHYLAXIS OF VENOUS THROMBOSIS 2-3 (HIGH-RISK SURGERY) TREATMENT OF VENOUS THROMBOSIS 2-3 TREATMENT OF PULMONARY EMBOLISM 2-3 PREVENTION OF SYSTEMIC EMBOLISM: 2-3 ACUTE MYOCARDIAL INFARCTION TISSUE HEART VALVES VALVULAR HEART DISEASE ATRIAL FIBRILLATION RECURRENT SYSTEMIC EMBOLISM MECHANICAL HEART VALVE 2.5-3.5 FROM: ORAL ANTICOAGULANTS. MECHANISM OF ACTION, CLINICAL EFFECTIVENESS, AND OPTIMAL THERAPEUTIC RANGE. CHEST 1995;108:231S-246S. Performed By: #### L [id number] #### [facility] (BEAKER) [address] [place] [address] PROTHROMBIN TIME (PT) IN PPP BY COAGULATION ASSAY 12.1 Seconds Low 12.3-14.8 [facility] Comment on above: Performed By: #### L [id number] #### [facility] ([facility]) [address] [place] [address] CT ABD/PELVIS WO CONon 07-24 CT ABD/PELVIS WO CON EXAMINATION: CT ABD/PELVIS WO CON HISTORY: Right upper quadrant pain , nausea for one month increasing in severity COMPARISON: Ultrasound right upper quadrant 07/13/2022 TECHNIQUE: Axial, Coronal, and Sagittal images were created without IV contrast. Dose reduction techniques were achieved by using automated exposure control and/or adjustment of mA and/or kV according to patient size and/or use of iterative reconstruction technique. FINDINGS: LUNG BASES: No visible pulmonary or pleural disease. LIVER: No enlargement, atrophy, suspicious density, or significant focal lesion. BILIARY: A few tiny stones within the noninflamed gallbladder. PANCREAS: No lesion, fluid collection, or abnormal duct dilatation. SPLEEN: No enlargement or focal lesion. ADRENALS: No mass or enlargement. KIDNEYS: No mass, obstruction, or calcification. BOWEL/MESENTERY: Prior gastric bypass surgery with very small gastric pouch. Dilated segments of anastomosis small bowel within left upper quadrant; no obstruction; oral contrast has passed through the proximal and early mid small bowel. No visible mass, obstruction, or bowel wall thickening. AORTA/VASCULAR: No aneurysm or dissection. RETROPERITONEUM: No mass or adenopathy. LYMPH NODES: No adenopathy. URINARY BLADDER: No visible focal wall thickening, lesion, or calculus. PELVIC ORGANS: Hysterectomy. ABDOMINAL WALL: No mass or hernia. BONES: Marked scoliotic curvature of lumbar spine, marked degenerative disc disease, degenerative facet arthropathy. Very mild osteonecrosis involving the weightbearing surfaces of the femoral heads. OTHER: Negative. IMPRESSION: 1. Cholelithiasis. 2. Prior gastric bypass surgery without appreciable acute abnormality. 3. Marked degenerative changes of the lumbar spine. 4. Early/mild osteonecrosis of the femoral heads. Electronically authenticated by: JESSICA LIPSCOMB Date: 2022-07-24 17:21 Normal [facility] HEPATOBILIARY SCAN W EFon 07-18-2022 SD HEPATOBILIARY SCAN W EF EXAMINATION: NM HEPATOBILIARY SCAN W EF HISTORY: Right upper quadrant pain COMPARISON: No relevant comparison available. TECHNIQUE: Radionuclide hepatobiliary imaging was performed after intravenous injection of 5.1 mCi technetium 99m mebrofenin with sequential acquisitions every 1 minute for one hour. Hepatobiliary imaging with gallbladder ejection fraction analysis was then performed with sequential imaging every 1 minute for 60 minutes following 4 slices villanueva and 2 bites of fries. FINDINGS: LIVER: Normal, prompt and uniform radiotracer uptake and clearing. BILIARY DUCTS: Normal radioisotopic biliary excretion. GALLBLADDER: Normal with no evidence of cystic duct obstruction. INTESTINE: Normal with no evidence of common biliary ductal obstruction. EJECTION FRACTION: 4 % within 60 minutes. (Normal EF > 38%). OTHER: Negative. IMPRESSION: Patent biliary tree Biliary dyskinesia with low gallbladder ejection fraction of 4% Electronically authenticated by: MEAGHAN SKINNER Date: 2022-07-18 10:22 Normal [facility] CBC AUTO DIFFon 07-13-2022 BASO # 0.0 103/ul Normal 0.0-0.1 [facility] Comment on above: Performed By: #### C BC #### [facility] [address] [address] [address] Raul Pereira Basophils/100 WBC (Bld) 0.5 % Normal 0.2-2.0 [facility] Comment on above: Performed By: #### C BC #### [facility] [address] [place] [address] Dr. Raul Pereira EO # 0.1 103/ul Normal 0.0-0.7 [facility] Comment on above: Performed By: #### C BC #### [facility] [address] [address] [address] Raul Pereira Eosinophils/100 WBC (Bld) 0.9 % Normal 0.9-7.0 [facility] Comment on above: Performed By: #### C BC #### [facility] [address] [place] [address] Dr. Raul Pereira Erythrocyte distribution width (RBC) [Ratio] 20.2 % Critically high 11.0-15.0 [facility] Comment on above: Performed By: #### C BC #### [facility] [address] [place] [address] Dr. Raul Pereira Hematocrit (Bld) [Volume fraction] 41.1 % Normal 36.0-48.0 [facility] Comment on above: Performed By: #### C BC #### [facility] [address] [place] [address] Dr. Raul Pereira Hemoglobin (Bld) [Mass/Vol] 13.2 g/dL Normal 12.0-16.0 [facility] Comment on above: Performed By: #### C BC #### [facility] [address] [place] [address] Dr. Raul Pereira IG # 0.05 10e3/ul Critically high 0.00-0.03 [facility] Comment on above: Performed By: #### C BC #### [facility] [address] [place] [address] Dr. Raul Pereira IG % 0.6 % Critically high 0.0-0.5 [facility] Comment on above: Performed By: #### C BC #### [facility] [address] [place] [address] Dr. Raul Pereira LYMPH # 1.4 103/ul Normal 1.2-3.8 [facility] Comment on above: Performed By: #### C BC #### [facility] [address] [place] [address] Dr. Raul Pereira Lymphocytes/100 WBC (Bld) 17.3 % Critically low 20.5-60.0 [facility] Comment on above: Performed By: #### C BC #### [facility] [address] [place] [address] Dr. Raul Pereira MANUAL DIFF REQ NO Normal [facility] Comment on above: Performed By: #### C BC #### [facility] [address] [place] [address] Dr. Raul Pereira MCH (RBC) [Entitic mass] 27.3 pg Normal 26.7-34.0 [facility] Comment on above: Performed By: #### C BC #### [facility] [address] [place] [address] Dr. Raul Pereira MCHC (RBC) [Mass/Vol] 32.1 g/dL Normal 29.9-35.2 [facility] Comment on above: Performed By: #### C BC #### [facility] [address] [place] [address] Dr. Raul Pereira MCV (RBC) [Entitic vol] 84.9 fL Normal 81.0-99.0 [facility] Comment on above: Performed By: #### C BC #### [facility] [address] [place] [address] Dr. Raul Pereira MONO # 0.8 103/ul Normal 0.3-0.8 [facility] Comment on above: Performed By: #### C BC #### [facility] [address] [place] [address] Dr. Raul Pereira Monocytes/100 WBC (Bld) 10.0 % Normal 1.7-12.0 [facility] Comment on above: Performed By: #### C BC #### [facility] [address] [place] [address] Dr. Raul Pereira NEUT # 5.8 103/ul Normal 1.4-6.5 [facility] Comment on above: Performed By: #### C BC #### [facility] [address] [place] [address] Dr. Raul Pereira Neutrophils/100 WBC (Bld) 70.7 % Normal 43.0-75.0 [facility] Comment on above: Performed By: #### C BC #### [facility] [address] [place] [address] Dr. Raul Pereira Platelet mean volume (Bld) [Entitic vol] 9.1 fL Critically low 9.5-13.5 [facility] Comment on above: Performed By: #### C BC #### [facility] [address] [place] [address] Dr. Raul Pereira PLT 358 103/ul Normal 150-450 [facility] Comment on above: Performed By: #### C BC #### [facility] [address] [place] [address] Dr. Raul Pereira RBC 4.84 106/ul Normal 4.20-5.40 [facility] Comment on above: Performed By: #### C BC #### [facility] [address] [place] [address] Dr. Raul Pereira WBC 8.1 103/ul Normal 4.0-11.0 [facility] Comment on above: Performed By: #### C BC #### [facility] [address] [place] [address] Dr. Raul Pereira LIPASEon 07-13-2022 Lipase [Catalytic activity/Vol] 47.0 U/L Critically low 73.0-393.0 [facility] Comment on above: Performed By: #### C BC #### [facility] [address] [place] [address] Dr. Raul Pereira PROF 14(COMP METB)on Albumin [Mass/Vol] 3.6 g/dL Normal 3.4-5.0 [facility] Comment on above: Performed By: #### C BC #### [facility] [address] [place] [address] Dr. Raul Pereira Albumin/Globulin [Mass ratio] 1.0 {ratio} Normal [facility] Comment on above: Performed By: #### C BC #### [facility] [address] [place] [address] Dr. Raul Pereira ALP [Catalytic activity/Vol] 88 U/L Normal 46-116 [facility] Comment on above: Performed By: #### C BC #### [facility] [address] [place] [address] Dr. Raul Pereira ALT [Catalytic activity/Vol] 16 U/L Normal 14-59 [facility] Comment on above: Performed By: #### C BC #### [facility] [address] [place] [address] Dr. Raul Pereira Anion gap [Moles/Vol] 13.2 mmol/L Normal [facility] Comment on above: Performed By: #### C BC #### [facility] [address] [place] [address] Dr. Raul Pereira AST [Catalytic activity/Vol] 15 U/L Normal 15-37 [facility] Comment on above: Performed By: #### C BC #### [facility] [address] [place] [address] Dr. Raul Pereira Bilirubin [Mass/Vol] 0.2 mg/dL Normal 0.2-1.0 [facility] Comment on above: Performed By: #### C BC #### [facility] [address] [place] [address] Dr. Raul Pereira Calcium [Mass/Vol] 9.5 mg/dL Normal 8.5-10.1 [facility] Comment on above: Performed By: #### C BC #### [facility] [address] [place] [address] Dr. Raul Pereira Chloride [Moles/Vol] 100 mmol/L Normal 98-107 [facility] Comment on above: Performed By: #### C BC #### [facility] [address] [place] [address] Dr. Raul Pereira CO2 [Moles/Vol] 28.0 mmol/L Normal 21.0-32.0 [facility] Comment on above: Performed By: #### C BC #### [facility] [address] [place] [address] Dr. Raul Pereira Creatinine [Mass/Vol] 0.78 mg/dL Normal 0.55-1.02 [facility] Comment on above: Performed By: #### C BC #### [facility] [address] [address] [address] Raul Pereira EGFR-AF BERMUDIAN >60 Normal >=60 [facility] Comment on above: Performed By: #### C BC #### [facility] [address] [place] [address] Dr. Raul Pereira EGFR-NON AF BERMUDIAN >60 Normal >=60 [facility] Comment on above: Performed By: #### C BC #### [facility] [address] [place] [address] Dr. Raul Pereira Globulin (S) [Mass/Vol] 3.6 g/dL Normal [facility] Comment on above: Performed By: #### C BC #### [facility] [address] [place] [address] Dr. Raul Pereira Glucose [Mass/Vol] 86 mg/dL Normal 74-106 [facility] Comment on above: Performed By: #### C BC #### [facility] [address] [place] [address] Dr. Raul Pereira Potassium [Moles/Vol] 4.2 mmol/L Normal 3.5-5.1 [facility] Comment on above: Performed By: #### C BC #### [facility] [address] [place] [address] Dr. Raul Pereira Protein [Mass/Vol] 7.2 g/dL Normal 6.4-8.2 [facility] Comment on above: Performed By: #### C BC #### [facility] [address] [place] [address] Dr. Raul Pereira Sodium [Moles/Vol] 137 mmol/L Normal 136-145 [facility] Comment on above: Performed By: #### C BC #### [facility] [address] [place], [place] [address] Dr. Raul Pereira Urea nitrogen [Mass/Vol] 11.0 mg/dL Normal 7.0-18.0 [facility] Comment on above: Performed By: #### C BC #### [facility] [address] [place], [place] [address] Dr. Raul Pereira Urea nitrogen/Creatinine [Mass ratio] 14.1 mg/mg Normal [facility] Comment on above: Performed By: #### C BC #### [facility] [address] [place], [place] [address] Dr. Raul Pereira US SINGLE QUAD RT UPPERon US SINGLE QUAD RT UPPER EXAM: US SINGLE QUAD RT UPPER 07/13/2022 COMPARISON STUDY: None TECHNIQUE: Multiple sagittal and transverse images of the right upper quadrant were obtained. Lu-scale, color, and spectral wave Doppler analysis was utilized. FINDINGS: The visualized portions of the pancreas appear unremarkable. Portions of the distal body and tail are obscured by overlapping bowel gas and are not as well visualized. Visualized portions of the IVC and liver appear unremarkable. There is no discrete hepatic mass. Right hepatic lobe measures 15.7 cm superior to inferior. The main portal vein is patent with flow in the correct direction when interrogated with color Doppler. Interrogated portions of the hepatic veins are patent. Dependent layering subcentimeter stones appear mobile within the gallbladder lumen. These are associated with posterior acoustic shadowing. There is no gallbladder wall thickening or pericholecystic fluid. Common bile duct has a diameter of 7 mm. Small volume of sludge within the gallbladder lumen is also suspected. There may be a tiny 3 mm polyp also noted emanating off the posterior wall. Right kidney measures 9.0 x 5.2 x 6.9 cm. There is no hydronephrosis. HISTORY: Right sided abdominal pain. IMPRESSION: 1. Cholelithiasis without acute cholecystitis. Small volume of dependent layering sludge within the proximal gallbladder lumen noted. There is also a 3 mm gallbladder polyp noted. 2. No significant biliary ductal dilatation. Electronically authenticated by: MICAH ROSAS Date: 2022-07-13 16:33 Normal [facility]17 SARS-CoV-2 (COVID-19) RNA IMELDA+probe Ql (Unsp spec) Not detected Normal NOT DETECTED [facility] Comment on above: Result Comment: This test is not yet approved or cleared by the [place] FDA. When there are no FDA-approved or cleared tests available, and other criteria are met, FDA can make tests available under an emergency access mechanism called an Emergency Use Authorization (EUA). The EUA for this test is supported by the [place] of Health and Human Service's (HHS's) declaration that circumstances exist to justify the emergency use of in vitro diagnostics for the detection and/or diagnosis of the virus that causes COVID-19. This EUA will remain in effect (meaning this test can be used) for the duration of the COVID-19 declaration justifying emergency of IVDs, unless it is terminated or revoked by FDA (after which the test may no longer be used). When diagnostic testing is negative, the possibility of a false negative should be considered in the context of a patient's recent exposures and the presence of clinical signs and symptoms consistent with SARS-CoV-2. Performed By: #### [facility] #### [facility] [address] [place] [address] Dr. Raul Pereira Endoscopy Reporton 8 Endoscopy Report [id number] Date: 02/24/2018 Room #: Z0 Date of : 1960 PROCEDURE NOTEATTENDING: Xin Beasley M.D.PROCEDURE PERFORMED: EGD.TOW FEEDER: Dr. Noland.SEDATION:1. Versed 10 mg.2. Fentanyl 250 mcg.INDICATION FOR EXAMINATION: The patient has a history of weight loss andthere is also history of esophagitis in the past.INDICATION FOR THE PROCEDURE: The patient has a history of gastric bypassand there is a weight loss of 15 pounds over the last few months. Thepatient has a history of esophagitis.PROCEDURE IN DETAIL: A complete physical examination was performed. Majorrisks and benefits associated with the procedure including bleeding,infection, perforation, and allergic reaction to the medication wereexplained to the patient in detail. The patient verbalized understandingand agreement with the same. The patient was connected to appropriatemonitoring devices and IV was started. Continuous oxygen was provided vianasal cannula throughout the procedure. Sedation was given in divideddoses throughout the procedure.After adequate sedation was achieved, the patient was placed in leftlateral decubitus position and an adult gastroscope was advanced throughthe mouth into the esophagus. Esophageal mucosa showed nonobstructingSchatzki ring at 36 cm from the incisors. There was 5 mm ulcer at thegastroesophageal anastomosis. There were few erosions in the anastomosisas well. The scope was further advanced into the stomach. There weresurgical changes in the stomach consistent with the gastric bypass. Noadditional findings were noted and the scope was slowly withdrawn.FINDINGS:1. Nonobstructing Schatzki ring.2. 5 mm anastomotic site ulcer and few erosions at the anastomosis.3. Surgical changes consistent with gastric bypass.4. Duodenal mucosa normal.RECOMMENDATION:1. We will increase the dose of PPI to b.i.d. for 2 months.2. Avoid NSAIDs.3. We will proceed with a colonoscopy.Electronicall y Signed by:Xin Beasley M.D. 03/05/2018 11:22 A Xin Beasley M.D. I was present for the entire procedure from insertion of the scope untilit was withdrawn. Date Dict: 02/24/2018/09:53 Kiara/Ruddy Noland M.D.Date Trans: 02/24/2018 12:13 P/[id number] cc: Napoleon Rahman M.D. [address] [facility] [address] [place] [facility] Endoscopy Report MR#: [id number] Name: Rhett Mejia Surgery Date: 02/24/2018 Room #: Z0 Date of : 1960 PROCEDURE NOTEATTENDING: Xin Beasley M.D.PROCEDURE PERFORMED: Colonoscopy and polypectomy.TOW FEEDER: Ruddy Noland M.D.SEDATION: Versed 10 mg and fentanyl 250 mcg.EXTENT OF EXAMINATION: To the cecum.BOWEL PREPARATION: Fair.INDICATION FOR EXAM: The patient is a 58-year-old female. She hadcolonoscopy 5 years ago and 5 small polyps were removed and 1 was tubularadenoma. The patient is here for a repeat colonoscopy.PROCEDURE IN DETAIL: A complete physical examination was performed. Majorrisks and benefits associated with the procedure including bleeding,perforation, infection, and allergic reaction to the medication wereexplained to the patient in detail. The patient verbalized understandingand agreement with the same. The patient was connected to appropriatemonitoring devices and IV was started. Continuous oxygen was given individed doses throughout the procedure.After adequate sedation was achieved, the patient was placed in the leftdecubitus position and digital rectal examination was performed. Thisexamination was within normal limits. A well-lubricated adult colonoscopewas then inserted into the rectum and advanced under direct visualizationto the level of the cecum. The cecum was identified by appendiceal orificeand ileocecal valve. The scope was then fully withdrawn while examiningthe color, texture, anatomy, and integrity of the mucosa from the cecum tothe anal canal. There was a 5-mm sessile polyp in the sigmoid colon, whichwas removed by cold snare polypectomy. There was another 5-mm sessilepolyp in the rectosigmoid area, which was removed by cold snarepolypectomy. Retroflexed view in the rectum was normal. The patienttolerated the procedure well.IMPRESSION:1. Two 5-mm sessile polyps in sigmoid and rectosigmoid area, removed by cold snare polypectomy.2. Rest of the colon examination was within normal limits.RECOMMENDATION:1. Follow up histopathology on the polyps removed.2. Repeat colonoscopy depending upon the results of the histopathology.Electronic ally Signed by:Xin Beasley M.D. 03/05/2018 11:22 A Xin Beasley M.D. I was present for the entire procedure from insertion of the scope untilit was withdrawn. Date Dict: 02/24/2018/09:57 A/Ruddy Noland M.D.Date Trans: 02/24/2018 10:12 A/[id number] cc: Napoleon Rahman M.D. [address] [place] [address] Normal [facility] POC GLUCOSE LABon 02-24-2018 Glucose mass conc 87 mg/dL Normal 70-100 [facility] Comment on above: Performed By: #### [id number] ####[facility] Vital Signs Date Time Vital Sign Value Performing Clinician Facility NEGATED: Highlighted row BMI (Body Mass Index) [facility] NEGATED: Highlighted row Body Temperature [facility] NEGATED: Highlighted row Body weight [facility] NEGATED: Highlighted row BP Diastolic Gene [facility] NEGATED: Highlighted row BP Systolic [facility] NEGATED: Highlighted row Height [facility] NEGATED: Highlighted row Pulse (Heart Rate) [facility] NEGATED: Highlighted row Pulse Oximetry Gene [facility] NEGATED: Highlighted row Respiratory Rate [facility] Encounters Encounter Date Encounter Type Care Provider Facility Start: 09-23-2023 ambulatory Cristian Johnson acility:[facility] Start: 09-22-2023 End: 09-23-2023 ambulatory Monica Malagon MD Facility:[facility] [place] Start: 04-08-[address] NAPOLEON RAHMAN . Facili ty:[facility] Start: 03-21-2023 End: 03-22-2023 ambulatory EVIE VIDAL . Facility:[facility] Start: 03-05-2023 End: 03-06-2023 ambulatory AMIRA OCAMPO . Facility:[facility] Start: 02-20-2023 End: 02-21-[address] NAPOLEON RAHMAN . Facility:[facility] Start: 02-18-2023 End: 02-19-[address] JESSICA LIPSCOMB Facility:[facility] Start: 02-13-2023 End: 02-14-[address] NAPOLEON RAHMAN . Facility:[facility] Start: 02-12-2023 End: 02-13-[address] NAPOLEON RAHMAN . Facility:[facility] Start: 02-08-2023 Encounter for genera l adult medical examination without abnormal findings DR NAPOLEON RAHMAN . [facility] Start: 01-31-2023 End: 02-01-2023 Encounter for general adult medical examination without abnormal findings DR NONE LISTED REQUEST Facility:[facility] Start: 01-31-2023 End: 02-01-2023 ambulatory NONE LISTED REQUEST Facility:[facility] Start: 01-30-2023 End: 01-31-[address] NAPOLEON RAHMAN . Facility:[facility] Start: 01-28-2023 End: 01-28-[address] BETHEL LITTLE . Facility:[facility] Start: 01-16-2023 End: 01-17-[address] NAPOLEON RAHMAN . Facility:[facility] Start: 01-13-2023 End: 01-14-[address] NAPOLEON RAHMAN . Facility:[facility] Start: 01-10-2023 End: 01-11-[address] NAPOLEON RAHMAN . Facility:[facility] Start: 12-17-2022 End: 12-17-[address] BETHEL LITTLE . Facility:[facility] Start: 12-16-2022 Encounter for preprocedural laboratory examination DR BETHEL LITTLE . [facility] Start: 12-13-2022 End: 12-14-[address] BETHEL LITTLE . Facility:[facility] Start: 12-13-2022 End: 12-14-2022 Encounter for preprocedural laboratory examination DR BETHEL LITTLE . Facility:[facility] Start: 12-04-2022 End: 12-05-2022 ambulatory RUBY RAMIREZ . Facility:[facility] Start: 12-03-2022 End: 12-03-[address] NAPOLEON RAHMAN . Facility:[facility] Start: 11-15-2022 End: 11-16-2022 ambulatory RUBY RAMIREZ . Facility:[facility] Start: 08-29-2022 End: 08-30-2022 ambulatory RUBY RAMIREZ . Facility:[facility] Start: 08-27-2022 End: 08-27-2022 ambulatory MICAELA GUPTA [facility] Start: 08-16-2022 End: 08-16-2022 ambulatory MICAELA GUPTA [facility] Start: 08-15-2022 Encounter for other preprocedural examination DR MICAELA GUPTA [facility] Start: 08-15-2022 Encounter for preprocedural laboratory examination DR MICAELA GUPTA [facility] Start: 08-13-2022 End: 08-14-[address] MICAELA GUPTA Facility:[facility] Start: 08-13-2022 End: 08-14-2022 Encounter for other preprocedural examination DR MICAELA GUPTA Facility:[facility] Start: 08-06-2022 End: 08-07-2022 ambulatory [facility] Start: 08-06-2022 End: 08-06-2022 ambulatory [facility] [facility] Start: 08-06-2022 ambulatory [facility] Start: 07-24-2022 End: 07-25-[address] NAPOLEON RAHMAN . Facility:[facility] Start: 07-18-2022 End: 07-19-[address] NAPOLEON RAHMAN . Facility:[facility] Start: 07-13-2022 End: 07-13-[address] NAPOLEON RAHMAN . Facility:[facility] Start: 07-09-2022 End: 07-09-[address] BETHEL LITTLE . Facility:[facility] Start: 07-05-2022 End: 07-06-[address] BETHEL LITTLE . Facility:[facility] Start: 06-12-2022 End: 06-13-[address] BETHEL LITTLE . Facility:[facility] Start: 05-15-2022 End: 05-16-[address] BETHEL LITTLE . Facility:[facility] Start: 05-06-[address] NAPOLEON RAHMAN . Facili ty:[facility] Start: 02-24-2018 End: 02-25-2018 Ambulatory XIN BEASLEY Facility:[facility] Start: 10-19-2014 End: 10-19-2014 Patient encounter procedure [facility] Start: 12-22-2013 End: 12-22-2013 Departed Referred [facility] Start: 10-12-2001 End: 10-12-2001 Patient encounter procedure [facility] Start: 09-01-2001 End: 09-01-2001 Patient encounter procedure [facility] Start: 08-26-2001 End: 08-26-2001 Patient encounter procedure [facility] Start: 03-21-1999 End: 03-28-1999 Evaluation and management of inpatient [facility] Start: 09-07-1997 End: 09-07-1997 Admission to day surgery [facility] Start: 07-21-1997 End: 07-21-1997 Emergency department patient visit [facility] Procedures Date Procedure Procedure Detail Performing Clinician Start: 02-24-2018 Colsc flx w/removal lesion by hot bx forceps XIN BEASLEY Payers Date Payer Category Payer Unknown 1959 Self-pay 1959 Self-pay [id number] 1959 Unknown [id number] 1959 Unknown [id number] 2.16.84 0.1.105604.3.579.2.593 1959 Unknown [id number] 2.16.84 0.1.205847.3.579.2.593 1959 Unknown [id number] .16.84 0.1.940851.3.579.2.593 1959 Unknown [id number] .16.84 0.1.851283.3.579.2.593 1959 Unknown [id number] 2.16.84 0.1.200483.3.579.2.593 1959 Unknown [id number] 2.16.84 0.1.106853.3.579.2.593 1959 Unknown [id number] 2.16.84 0.1.119504.3.579.2.593 1959 Unknown [id number] 2.16.84 0.1.701027.3.579.2.593 1959 Unknown [id number] 2.16.84 0.1.089376.3.579.2.593 1959 Unknown [id number] 2.16.84 0.1.281425.3.579.2.593 1959 Unknown [id number] 2.16.84 0.1.535321.3.579.2.593 1959 Unknown [id number] 2.16.84 0.1.693085.3.579.2.593 1959 Unknown [id number] 2.16.84 0.1.232571.3.579.2.593 1959 Unknown [id number] 2.16.84 0.1.780881.3.579.2.593 1959 Unknown [id number] 2.16.84 0.1.686093.3.579.2.593 1959 Unknown [id number] 2.16.84 0.1.125729.3.579.2.593 1959 Unknown [id number] 2.16.84 0.1.476589.3.579.2.593 1959 Unknown [id number] 2.16.84 0.1.071914.3.579.2.593 1959 Unknown [id number] 2.16.84 0.1.391133.3.579.2.593 1959 Unknown [id number] 2.16.84 0.1.287111.3.579.2.593 1959 Unknown [id number] 2.16.84 0.1.767524.3.579.2.593 1959 Unknown [id number] 2.16.84 0.1.956555.3.579.2.593 1959 Unknown [id number] 2.16.84 0.1.272760.3.579.2.593 1959 Unknown [id number] 2.16.84 0.1.564211.3.579.2.593 1959 Unknown [id number] 2.16.84 0.1.433973.3.579.2.593 1959 Unknown [id number] 2.16.84 0.1.877015.3.579.2.593 1959 Unknown [id number] 2.16.84 0.1.548660.3.579.2.593 1959 Unknown [id number] 2.16.84 0.1.513717.3.579.2.593 1959 Unknown [id number] 2.16.84 0.1.742316.3.579.2.593 1959 Unknown [id number] 2.16. 840.1.857917.3.579.2.196 Medicare [id number] [id number] Unknown [id number] Unknown [id number] 2.16.84 0.1.185981.3.579.2.593 Unknown [id number] 2.16.8 40.1.403154.3.579.2.531 Clinical Notes 05-15-2022 to 02-18-2023 Note Date & Type Note Facility 02-18-2023 Note CONSULTATION CONSULTATION DATE: 02/18/2023 TO: Napoleon Rahman M.D. HISTORY: Patient returns today complaining of severe pain in her neck and shoulder area with pain in her right upper extremity with weakness. She reports the pain as being 5-7/10 pain, sharp in character, increased with activity such as lifting maneuvers, pushing/pulling maneuvers and cervical extension. She feels most comfortable in the semi-recumbent position. She denies any change in bowel and bladder habits or new sensorimotor change in her upper extremities. EXAM: Her exam is notable for patient having mild hypoesthesia along the right C7 dermatome, mild weakness of the right triceps. She had an equivocally positive Spurling's sign on the right side with severe pain with cervical facet joint loading maneuvers currently on the right side. Seems to be most severe at approximately C5-6 level or C6-7 level, consistent with myofascial spasm of the cervical paravertebral muscles. IMPRESSION: Patient with chronic pain secondary to right C7 radiculopathy, myofascial dysfunction. RECOMMENDATIONS: I have asked her to undergo physical therapy, identify an area to place a skin marker to obtain cervical spine films, PA and lateral views and cervical MRI without contrast. I have increased her Flexeril to 5 mg pills, 1-2 pills up to t.i.d. as tolerated. I have given her 200 pills. She reports that the Flexeril is helping her, but she reports that she takes a whole pill during that day and it makes her quite tired, and she has difficulty breaking the tablets, so we are giving her 5 mg pills. We will see the patient back in the office in four weeks' time or sooner if needed. As part of providing excellent, safe, comprehensive care, the following was completed at our patient's visit: 1. A medication reconciliation and review to ensure accurate knowledge of current/active medications, including asking our patients to inform us about any [id number] medications or herbal remedies/nutritional supplements/alternative remedies. 2. A review to specifically ensure our patients have had annual screening for: elevated body mass index (BMI, see intake chart for exact total), tobacco use, screening for depression, and screening for unhealthy alcohol use. When screening is concerning, patients are provided with education and the specific recommendation to discuss the concerning health issue and treatment options with their primary care provider. [facility] 01-16-2023 Note CONSULTATION CONSULTATION DATE: 01/16/2023 HISTORY: This is a 63-year-old female who returns to the clinic status post coccygeal RFA completed on 12/17/2022 that afforded her 90% relief and is ongoing. Today, she is complaining of 7/10 pain, sharp and twisting to the left side of her lower back. She also has bilateral neck pain which has resulted in numbness and tingling to her hands bilaterally. Activities such as sitting, housework, lifting, bending and stairs aggravate both neck and lower back. She does use ice which slightly mitigates her pain. She does not use heat. All of her prescriptions are prescribed by her PCP, Dr. Rahman, which include Robaxin 500 mg b.i.d., Butrans patch, Neurontin 600 mg t.i.d., Cymbalta, Adderall and lidocaine cream. She is inquiring about a trigger point injection today to her lower back and possibly a cervical epidural. Patient's REVIEW OF SYSTEMS / PAST MEDICAL HISTORY / ALLERGIES and IMAGES have been reviewed and noted on the chart. PHYSICAL EXAM: VITAL SIGNS: Blood pressure is 139/87. Heart rate is 72. She is 5'3 and weighs 58.7 kg. GENERAL IMPRESSION: Pleasant, appropriate, in no acute distress. FOCUSED EXAM - NECK: Range of motion is guarded in lateral rotation and flexion/extension. Patient sits with a forward flexion neck posture. Cervical trapezius muscles are taut but non-spasmodic. Minimal spinal axial pain along C5, C6 bilaterally to compression along the cervical facets. MUSCULOSKELETAL: Motor is 4/5 bilateral upper extremities. No overt muscle weakness noted. NEUROLOGICAL: Patient is cognitively intact. Cranial nerves are intact. Patient has diffuse polyneuropathy along the C5, C6, C7 distribution bilaterally. Blunted brachioradialis and triceps reflexes. BACK: Range of motion is guarded in lateral and flexion/extension. Left erector spinae and gluteal muscles with spasm and trigger noted. Compression along the trigger produces a positive jump response and reproduces the patient's pain pattern. DIAGNOSIS: Cervical radiculitis, lumbar spasm, lumbar scoliosis and dystonia. PLAN: We will authorize for a cervical epidural steroid injection to address her radicular symptoms. We will change her muscle relaxer to Flexeril 10 mg q.h.s. and discontinue the Robaxin. She is a likely candidate to consider Botox for her dystonia. Patient agrees with this plan of care and will be followed up in the clinic post epidural. [facility] 12-04-2022 Note CONSULTATION CONSULTATION DATE: 12/04/2022 HISTORY OF PRESENT ILLNESS: This is a 62-year-old female who returns to the clinic for a three week follow up for lower back pain. Today, she is complaining of coccyx pain that is 9/10. She describes it as sharp, and it wakes her up through the night. She has had coccygeal nerve blocks and radiofrequency ablation in the past, last done on 12/19/2020 with great relief. Patient states her pain has returned to its baseline, and it radiates near her perineal area and down her buttocks. She is unable to sit for prolonged periods of time. Lifting, changes in the weather, pushing, pulling and sitting aggravate her pain. At her last appointment on 11/15/2022, she did receive a left gluteal trigger point injection, which she is still receiving relief from. She did receive a Prolia injection yesterday. Other medications include Robaxin 500 mg b.i.d., Cymbalta, diclofenac, gabapentin and a Butrans patch. Her PCP prescribes all her medications. Patient's REVIEW OF SYSTEMS / PAST MEDICAL HISTORY / ALLERGIES and IMAGES have been reviewed and noted in the chart. PHYSICAL EXAM: VITAL SIGN: Blood pressure is 149/79. Heart rate is 85. Temperature is 97.5. She is 5'31/2 , weighs 58 kg. GENERAL IMPRESSION: Pleasant, appropriate, uncomfortable sitting in the chair. FOCUSED EXAM - BACK: Range of motion is guarded in lateral rotation and flexion/extension. Paravertebral muscles are non-spasmodic. Bilateral gluteal muscles are non-spasmodic. Compression along the coccygeal area bilaterally reproduces the patient's pain pattern with positive jump response. MUSCULOSKELETAL: Motor to the lower extremities is 4/5 bilaterally. Patient walks unassisted with no overt motor weakness noted. NEUROLOGICAL: Hypoesthesia down bilateral buttocks originated from her coccygeal area. +1 bilateral patellar and Achilles reflexes. Patient is cognitively intact. DIAGNOSIS: Lumbar degenerative disc disease and coccydynia. PLAN: We will repeat bilateral coccygeal radiofrequency ablations with a half dose of Kenalog. Patient does agree with this plan. I did recommend alternating heat and ice and to take her diclofenac as directed. Patient agrees with the plan and would like to move forward, and she will be followed up in the office after the procedure. [facility] 11-15-2022 Note CONSULTATION PROCEDURE DATE: 11/15/2022 PREOPERATIVE DIAGNOSIS: Left gluteal spasm. POSTOPERATIVE DIAGNOSIS: Left gluteal spasm. PROCEDURE: Left gluteal trigger point injection. Subsequent to obtaining informed consent, the patient was placed in the upright standing forward flexion position. Alcohol prep was used to sterilize the site. A 25 gauge needle with 0.125% Marcaine and 40 mg of Kenalog was placed to rest in two locations of the left gluteal area. Negative heme. Medication was injected, half in each location, in a slow, fan-like pattern. Patient tolerated procedure well, will be followed up in the office following her RFA procedure. [facility] 11-15-2022 Note CONSULTATION CONSULTATION DATE: 11/15/2022 HISTORY OF PRESENT ILLNESS: This is a 62-year-old female who returns to the clinic for a three month follow up for chronic lower back pain. The patient is inquiring about repeating radiofrequency ablations to her lower lumbar area. She has been having left gluteal spasms and feels that she is back close to her baseline pain prior to her last RFA of her lower back. Activities such as standing, walking, pushing, pulling, bending and lifting aggravate her pain. Heat, stretches and the use of lidocaine cream does decrease her symptoms. Medications include Robaxin 500 mg b.i.d., Voltaren gel, Cymbalta, Butrans patch per her PCP, diclofenac and gabapentin. She denies any new vasomotor changes or pain pattern. Patient's REVIEW OF SYSTEMS / PAST MEDICAL HISTORY / ALLERGIES and IMAGES have been reviewed and are noted in the chart. PHYSICAL EXAM: VITAL SIGNS: Blood pressure 112/76, heart rate is 93. She is 5'3 , weighs 60 kg. GENERAL IMPRESSION: Pleasant, appropriate, in no acute distress. FOCUSED EXAM - BACK: Patient does have a forward flexion posture. Range of motion is guarded in lateral rotation and flexion/extension. Reproduction of spinal axial pain noted upon joint compression of the lower lumbar facets of L2, L3 and L4, L5 bilaterally. Left gluteal spasm with trigger points identified in two locations with positive jump response. Leticia's point is non-tender bilaterally with negative FABERs and compression test. MUSCULOSKELETAL: Motor is intact, 4/5 bilaterally. Slight muscle atrophy noted bilateral lower extremities. Patient walks unassisted. NEUROLOGICAL: Patient is cognitively intact. Radicular sensory is intact. Negative polyneuropathy. DIAGNOSIS: Left gluteal spasm, lumbar spondylosis, lumbar degenerative disc disease and chronic lower back pain. PLAN: The patient will receive left gluteal trigger point injection in the clinic today, which she does consent to. We will look to repeat her radiofrequency ablations bilaterally to L2, L3 and L4, L5 at the end of December. She is to continue with her vitamins and home supportive measures such as heat and stretches. [facility] 08-29-2022 Note CONSULTATION PROCEDURE DATE: 08/29/2022 PREOPERATIVE DIAGNOSIS: Right thoracic trapezius spasm. POSTOPERATIVE DIAGNOSIS: Right thoracic trapezius spasm. PROCEDURE: Right trapezius thoracic trigger point injection. Subsequent to obtaining informed consent, the patient was placed in the upright standing, forward flexion position. Alcohol prep was used to sterilize the site. A 25 gauge needle with 0.125% Marcaine and 40 mg of Kenalog was placed to rest inside the trigger zone. Negative heme. Medication was injected in a fan-like pattern. Patient tolerated the procedure well. [facility] 08-29-2022 Note CONSULTATION CONSULTATION DATE: 08/29/2022 HISTORY OF PRESENT ILLNESS: This is a 62-year-old female returning to the clinic status post bilateral RFA of L2, L3 and L4, L5 completed on 07/09/2022. The patient states she received 100% relief in regards to her procedure. The patient did have gallbladder removal surgery on 08/17/2022 and she is still recovering from that. Today, she is complaining of mid thoracic pain that she rates 8/10. It is mainly on the right side but does hurt bilaterally. Activity such as housework, lifting, bending, pushing, pulling, prolonged standing, walking aggravate her pain. She does use ice which does decrease her pain. She does receive all her medications by her PCP, which includes a Butrans patch, Adderall, gabapentin, Tylenol and Valium. Patient did have thoracic RFAs done in 04/2021 to T11, T12 and L1, L2. The patient states her current symptomatology is very similar to this pain pattern prior to that procedure. She does, however, have new radicular pain that is constant numbness and tingling along the lateral aspect of her left foot, along the L4-L5 dermatome. She denies any recent falls or weakness. Patient's REVIEW OF SYSTEMS / PAST MEDICAL HISTORY / ALLERGIES and IMAGES have been reviewed and they are noted on the chart. PHYSICAL EXAM: VITAL SIGNS: Blood pressure 150/80, heart rate is 98. Temperature is 98. She is 5'3 and weighs 60 kg. GENERAL IMPRESSION: Pleasant, appropriate, no acute distress. Forward flexion posture in the chair. FOCUSED EXAM - BACK: Range of motion is functional in lateral rotation and flexion/extension. Reproduction of patient's pain symptomatology to compression along the lower thoracic facets that radiates to the right to the mid axillary line. Costovertebral arthrosis noted bilaterally. Fullness palpated at the facets indicative of facet arthropathy, thoracic spondylosis to T11, T12 and L1 bilaterally, right greater than left. Compression reproduces patient's pain. Right trapezius muscle with a trigger point identified. Positive jump response to palpation. MUSCULOSKELETAL: Muscle atrophy noted to bilateral lower extremities, particularly left anterior tibialis. Extensors are intact. Patient ambulates in a forward flexion position, does not use an assistive device. NEUROLOGICAL: Patchy hypoesthesia noted along L4-5 dermatome to the left foot to the level of the dorsum and lateral aspect of her foot. Blunted patellar and Achilles reflexes. DIAGNOSIS: Thoracic spondylosis, thoracic degenerative disc disease, lumbar scoliosis and lumbar radiculitis. PLAN: We will repeat RFAs to her thoracic spine starting on the right side, subsequently move to the left, of T11, T12 and L1. Today, she will receive a right thoracic trapezius trigger point injection which she does consent to. She has seen Dr. Mendosa, neurosurgeon in the past. She is going to do a self referral to discuss her new radicular pain to her leg. Patient would like to proceed, and will be followed up in the office post procedure. [facility] 08-29-2022 Note CONSULTATION CONSULTATION DATE: 08/29/2022 ADDENDUM: Addendum to peer plan: We will repeat radiofrequency ablation starting on the right side and subsequently moving to the left at T11, T12 and L1, L2. [facility] 08-27-2022 Note Subjective Patient ID: Rhett Mejia is a 62 y.o. female who presents for Post-op (Rhett is here today for a post op visit, s/p 08/16/22 LAP ZEESHAN ). HPI She is tolerating to low-fat diet, without diarrhea. Review of Systems Constitutional: Negative. Respiratory: Negative. Gastrointestinal: Negative. Objective Visit Vitals BP 136/81 (BP Location: Left arm, Patient Position: Sitting) Pulse 90 Temp 37.1 ???C (98.8 ???F) Physical Exam Constitutional: Appearance: Normal appearance. She is normal weight. Eyes: Pupils: Pupils are equal, round, and reactive to light. Cardiovascular: Rate and Rhythm: Normal rate. Pulmonary: Effort: Pulmonary effort is normal. Abdominal: General: Abdomen is flat. Bowel sounds are normal. Palpations: Abdomen is soft. Comments: Incisions are dry, clean, intact. Musculoskeletal: Cervical back: Normal range of motion and neck supple. Skin: General: Skin is warm and dry. Neurological: Mental Status: She is alert and oriented to person, place, and time. Pathology: Cholelithiasis and cholesterolosis Assessment/Plan Postoperative follow-up No diagnosis found. No orders of the defined types were placed in this encounter. No results found for this or any previous visit (from the past 36 hour(s)). No follow-ups on file. [facility] 08-16-2022 Note Patient: Rhett rousseau Procedure Summary Date: 08/16/22 Room / Location: [facility] OPERATING ROOM 01 / [facility] Operating Room Anesthesia Start: 734 Anesthesia Stop: 952 Procedure: CHOLECYSTECTOMY, LAPAROSCOPIC Diagnosis: Calculus of gallbladder without cholecystitis without obstruction (Calculus of gallbladder without cholecystitis without obstruction [K80.20]) Surgeons: Micaela Gupta MD Responsible Provider: Cassi Velez MD Anesthesia Type: general ASA Status: 3 Anesthesia Type: general Vitals Value Taken Time BP 132/71 08/16/22 1016 Temp 36.7 ???C (98.1 ???F) 08/16/22 0951 Pulse 91 08/16/22 1025 Resp 15 08/16/22 1025 SpO2 95 % 08/16/22 1025 Vitals shown include unvalidated device data. Anesthesia Post Evaluation Patient location during evaluation: PACU Patient participation: complete - patient participated Level of consciousness: awake and alert Pain management: adequate Airway patency: patent Cardiovascular status: acceptable Respiratory status: acceptable Hydration status: acceptable There were no known notable events for this encounter. [facility] 08-16-2022 Note Airway Date/Time: 08/16/2022 7:44 AM Urgency: elective Airway not difficult General Information and Staff Patient location during procedure: OR Anesthesiologist: Cassi Velez MD Resident/ELECTRIC METER INSTALLER/CAA: ELONARD Canales Performed: resident/ELECTRIC METER INSTALLER/LEONARD Indications and Patient Condition Indications for airway management: anesthesia Spontaneous Ventilation: absent Sedation level: deep Preoxygenated: yes Mask difficulty assessment: 1 - vent by mask Final Airway Details Final airway type: endotracheal airway Successful airway: ETT Cuffed: yes Successful intubation technique: video laryngoscopy Endotracheal tube insertion site: oral Blade: Ferguson Blade size: #3 ETT size (mm): 7.5 Cormack-Lehane Classification: grade I - full view of glottis Placement verified by: chest auscultation Measured from: lips ETT to lips (cm): 22 Number of attempts at approach: 1 Additional Comments Eyes taped after induction, before airway management; Dentures to Circ RN [facility] 08-16-2022 Note Patient: Rhett rousseau Procedure Information Date/Time: 08/16/22 0730 Procedure: CHOLECYSTECTOMY, LAPAROSCOPIC, WITH INTRAOPERATIVE CHOLANGIOGRAM, WITH LAPAROTOMY IF INDICATED REQ ERIC OR MANDO HUERTA MAUK, WOODSON - C-ARM AVAIL STAFF REQUESTS: LENIN DE LA CRUZ Location: [facility] OPERATING ROOM 01 / [facility] Operating Room Surgeons: Micaela Gupta MD Relevant Problems Endo (+) Type 1 diabetes mellitus (CMS/HCC) Clinical information reviewed: Tobacco Allergies Meds Problems Med Hx Surg Hx Fam Hx Soc Hx Physical Exam Airway Mallampati: II TM distance: >3 FB Neck ROM: full Cardiovascular - normal exam Rhythm: regular Rate: normal Dental (+) upper dentures, lower dentures Comments: reviewed Pulmonary - normal exam Breath sounds clear to auscultation Abdominal - normal exam Abdomen: soft Other findings: Subjective limited mouth opening due to h/o broken jaw Anesthesia Plan ASA 3 general The patient is a current smoker. Patient was not previously instructed to abstain from smoking on day of procedure. Patient did not smoke on day of procedure. intravenous induction Postoperative administration of opioids is intended. Anesthetic plan and risks discussed with patient. Use of blood products discussed with patient who consented to blood products. Plan discussed with CAA. Additional Equipment Requests [facility] 08-06-2022 Note Subjective Patient ID: Rhett Mejia is a 62 y.o. female who presents for Consult (Rhett is here for a gallbladder consult. Rhett also c/o swelling in right leg with pain in calf.). HPI Review of Systems Constitutional: Negative. Respiratory: Negative. Gastrointestinal: Positive for abdominal pain. Skin: Negative. Objective Physical Exam Assessment/Plan Diagnosis Plan 1. Pain and swelling of right lower leg Rhythm ECG, report Lower extremity venous duplex right Protime-INR Orders Placed This Encounter Procedures Rhythm ECG, report Standing Status: Future Standing Expiration Date: 08/06/2023 Protime-INR Standing Status: Future Standing Expiration Date: 08/06/2023 Order Specific Question: Release to Patient Answer: Immediately No results found for this or any previous visit (from the past 36 hour(s)). No follow-ups on file. [facility] 08-06-2022 Note Subjective Patient ID: Rhett Mejia is a 62 y.o. female who presents for Consult (Rhett is here for a gallbladder consult.). HPI Patient is complaining of right upper quadrant bloating and pain intermittently. She also complaining of right leg swelling worsening this week. She had chronic right lower extremity DVT. She received around 1 month anticoagulation therapy. Review of Systems Constitutional: Negative. Respiratory: Negative. Gastrointestinal: Positive for abdominal pain. Skin: Negative. Objective Physical Exam Constitutional: Appearance: Normal appearance. HENT: Head: Normocephalic and atraumatic. Eyes: Extraocular Movements: Extraocular movements intact. Pupils: Pupils are equal, round, and reactive to light. Cardiovascular: Rate and Rhythm: Normal rate and regular rhythm. Pulmonary: Effort: Pulmonary effort is normal. Breath sounds: Normal breath sounds. Abdominal: General: Abdomen is flat. Bowel sounds are normal. Palpations: Abdomen is soft. Musculoskeletal: Cervical back: Normal range of motion and neck supple. Comments: Right leg swelling Skin: General: Skin is warm and dry. Neurological: General: No focal deficit present. Mental Status: She is alert and oriented to person, place, and time. Psychiatric: Mood and Affect: Mood normal. CT scan confirmed cholelithiasis. Pancreas is unremarkable. Without signs of ventral hernia. Gallbladder HIDA scan showed ejection fraction 4%. Assessment/Plan Patient is indicated for elective laparoscopic cholecystectomy. I will order stat lower extremity vascular Doppler and request vascular consult for her DVT. No diagnosis found. No orders of the defined types were placed in this encounter. No results found for this or any previous visit (from the past 36 hour(s)). No follow-ups on file. [facility] 06-12-2022 Note CONSULTATION PROCEDURE DATE: 06/12/2022 PREOPERATIVE DIAGNOSIS: Left lumbar paravertebral spasms. POSTOPERATIVE DIAGNOSIS: Left lumbar paravertebral spasms. PROCEDURE: Left lumbar trigger point injection. Subsequent to obtaining informed consent, the patient was placed in the upright standing forward flexion position. Alcohol prep was used to sterilize the site. A 25 gauge needle with 0.125% Marcaine and 40 mg of Kenalog was divided into two locations. Needle was placed to rest inside the trigger point. Negative heme. Medication was injected in a fan-like pattern. The patient tolerated the procedure well. [facility] 06-12-2022 Note CONSULTATION CONSULTATION DATE: 06/12/2022 HISTORY OF PRESENT ILLNESS: This is a 62-year-old female returned to the clinic for a one month follow up for chronic neck and back pain. She was last seen on 05/15/2022 which, at that time, she, received cervical trigger point injections which afforded her significant relief and is ongoing. She is inquiring today about trigger point injections in her left lower lumbar area. She is complaining of 7/10 pain which she describes it feels like childbirth labor. She does have radiating achy and sharp pain that goes down her left buttock and behind her leg, to the level above the knee. Her last lumbar procedure was in 07/2020, which was radiofrequency ablation to her lower lumbar facets. The patient is inquiring about possibly repeating those. Activity that aggravates her pain is prolonged standing, housework and bending. She occasionally uses ice and massage, which decreases her pain. Her medication per her PCP is gabapentin, Cymbalta, Butrans patch and Adderall. She does take a vitamin regimen. We prescribe her Robaxin 500 mg b.i.d. Patient's REVIEW OF SYSTEMS / PAST MEDICAL HISTORY / ALLERGIES and IMAGES have been reviewed and they are noted on the chart. PHYSICAL EXAM: VITAL SIGNS: Blood pressure is 134/84. Heart rate is 92. Temperature is 98. She is 62 and weighs 60 kg. GENERAL APPEARANCE: Pleasant and appropriate, no acute distress. FOCUSED EXAM - BACK: Range of motion is guarded in lateral rotation and flexion/extension. Reproduction of patient's spinal axial pain is noted to direct compression along the posterior elements of the facets bilaterally of L2, L3 and L4, L5 that radiates below the buttocks to the left lower extremity. This is concordant with facet arthropathy, lumbar spondylosis. Leticia's point is non-tender bilaterally. Trigger points identified in two locations, left lower paravertebral with positive jump response. MUSCULOSKELETAL: Motor is intact, 4/5 bilaterally. Patient does walk with a slight forward flexion posture. NEUROLOGICAL: Patchy hypoesthesia noted along L5 to the left lower extremities, to the level above the knee. IMPRESSION: Left paravertebral spasms, lumbar degenerative disc disease, lumbar spondylosis. PLAN: We will refill her Robaxin at 500 mg b.i.d. Patient is unable to tolerate baclofen. She will receive two lumbar trigger point injections in the office, which she does agree to. She is to continue with her heat, menthol heat rub and stretches. At this time, according to her symptomatology, we will gait authorization to repeat her radiofrequency ablation, starting on the left side, subsequently moving to the right of L2, L3 and L4, L5. She will be followed up in the office post procedure and she agrees to the plan of care. [facility] 05-15-2022 Note CONSULTATION CONSULTATION DATE: 05/15/2022 HISTORY OF PRESENT ILLNESS: This is a pleasant, 62-year-old female, returning to the clinic for a three month follow up for her chronic lower back pain. Today, she is complaining of right sided neck pain she rates at 8/10, describes it as sharp and tight. The patient believes it may be due to carrying a heavy purse as she will have hypoesthesia down her right arm to her fingers upon awakening in the morning and heavy activity. When she is not active, the pain decreases. She currently takes gabapentin 600 mg t.i.d., Robaxin 500 mg b.i.d., diclofenac gel, Adderall and a multivitamin regimen. She did have a cervical epidural steroid injection in October of 2021 which was very beneficial to her. The patient feels that she does not need that procedure at this time, but that it is more of a muscle spasm from carrying her heavy purse. She is inquiring about a possible trigger point injection. Lifting, housework, bending, transitioning positions aggravate her pain. She does use heat and ice alternatively, which decreases her pain. Patient's REVIEW OF SYSTEMS / PAST MEDICAL HISTORY / ALLERGIES and IMAGES have been reviewed and they are noted on the chart. PHYSICAL EXAM: VITAL SIGNS: Blood pressure 124/79, heart rate is 84. Temperature is 98.1. She is 5'3 and weighs 61.2 kg. GENERAL APPEARANCE: Pleasant, appropriate, no acute distress. FOCUSED EXAM - NECK: Range of motion is guarded in lateral rotation and extension. Minimal reproduction of the spinal axial pain to direct compression along the cervical facets of C4, C5, C6 bilaterally. Right sided cervical trapezius muscle is taut with trigger points identified, which do reproduce the patient's pain symptomatology. MUSCULOSKELETAL: Motor is intact, bilateral upper arms, 4/5 bilaterally. Muscle tone is adequate. NEUROLOGICALLY: Brachioradialis reflex +1 to the right, +2 to the left. Patchy hypoesthesia noted along bilateral C6-C7 dermatomes to the right. IMPRESSION: Cervical trapezius spasms, cervical neuritis, cervical degenerative disc. PLAN: Patient will receive a right cervical trigger point injection in the clinic, which she does agree to. She is to continue stretches and add magnesium 400 mg daily to her vitamin regimen. We did discuss revisiting cervical epidural steroid injection, but patient would like to hold off at this time and see if the issue is mitigated with decrease in the weight of her purse, changing arms as she carries her purse and with the trigger point injection. At this point, we will schedule her to return in three months' time unless otherwise indicated. Patient agrees with the plan of care. PSYCHIATRIC Signed and Approved by: RUBY RAMIREZ . 05/16/2022 13:38:00 [facility] 05-15-2022 Note CONSULTATION PROCEDURE DATE: 05/15/2022 PREOPERATIVE DIAGNOSIS: Right cervical trapezius spasm. POSTOPERATIVE DIAGNOSIS: Right cervical trapezius spasm. PROCEDURE: Right cervical trapezius trigger point injection. Subsequent to obtaining informed consent, the patient was placed in an upright sitting neutral position. Alcohol prep was used to sterilize the site. A 25 gauge needle with 0.125% Marcaine and 40 mg of Kenalog was placed to rest inside the trigger zone on the right. Negative heme. Medication was injected in a fan-like pattern. Patient tolerated the procedure well, with no overt complications. She will be followed up in the office. PSYCHIATRIC Signed and Approved by: RUBY RAMIREZ . 05/16/2022 13:38:00 [facility] Summary Purpose Family History No Family History Records FoundNo Family History Records FoundNo Family History Records FoundNo Family History Records FoundNo Family History Records Found Advance Directives No Advanced Directives Records FoundNo Advanced Directives Records FoundNo Advanced Directives Records FoundNo Advanced Directives Records FoundNo Advanced Directives Records Found Additional Source Comments INFORMATION SOURCE (unrecogn ized section and content) DATE CREATED AUTHOR 05/07/2018 [facility] DATE CREATED AUTHOR AUTHOR'S ORGANIZ ATION 09/26/2022 [facility] DATE CREATED AUTHOR AUTHOR'S ORGANIZ ATION 03/28/2023 [facility] DATE CREATED AUTHOR AUTHOR'S ORGANIZ ATION 09/25/2023 [facility] DATE CREATED AUTHOR AUTHOR'S ORGANIZ ATION 12/10/2023 [facility] FOR RECORDS PERTAINING TO PATIENTS WHO ARE OR HAVE BEEN ENROLLED IN A CHEMICAL DEPENDENCY/SUBSTANCEABUSE PROGRAM, SOME INFORMATION MAY BE OMITTED. This clinical summary was aggregated from multiple sources. Caution should be exercised in using it in the provision of clinical care. This summary normalizes information from multiple sources, and as a consequence, information in this document may materially change the coding, format and clinical context of patient data. In addition, data may be omitted in some cases. CLINICAL DECISIONS SHOULD BE BASED ON THE PRIMARY CLINICAL RECORDS. [facility] [employer] [facility]. provides no warranty or guarantee of the accuracy or completeness of information in this document.
--- NOTE | 2024-03-02 08:00 | CA_ITS ---
Patient Name: RHETT MEJIA MR#: [id number] : 1960 Exam Date: 03/02/2024 Ordering Doctor: DR Ke Rahman . ECHOCARDIOGRAM REPORT PROCEDURE: CA ECHO DOPPLER COMPLETE INDICATIONS: Diastolic dysfunction, left atrial dilation, tricuspid regurgitation, smoker COMPARISON: None. DESCRIPTION: COMPLETE ECHOCARDIOGRAM Real-time transthoracic echocardiography with 2D, M-mode, spectral and color flow Doppler performed. QUALITY: Technical quality was good. 63.5 , 138#, BSA 1.66 m2, BP 128/78 LEFT VENTRICLE: Normal chamber size. Thickened septal wall. Normal systolic function. LV EF: Normal left ventricular ejection fraction, (>55%). DIASTOLIC: Normal diastolic function. ATRIAL SEPTUM: Visually appears intact. LEFT ATRIUM: Moderate dilatation. RIGHT ATRIUM: Normal chamber size. RIGHT VENTRICLE: Normal chamber size. Normal right ventricular systolic function. TRICUSPID VALVE: Normal mobility and thickness. No stenosis with trivial regurgitation. No evidence of pulmonary hypertension. RVSP 22 mmHg MITRAL VALVE: Normal mobility and thickness. No evidence of mitral valve stenosis. There is no mitral annular calcification. Trivial mitral regurgitation. AORTIC VALVE: Normal trileaflet appearance. Thickened aortic valve. Normal leaflet mobility. No evidence of aortic valve stenosis. No aortic regurgitation. AORTIC ROOT: Normal diameter and appearance. PULMONIC VALVE: Normal thickness and mobility. No stenosis. Trivial regurgitation. PERICARDIUM: No evidence of pericardial effusion. IVC: IVC is normal in size, does not fully collapse. PLEURA: CONCLUSION: 1. Normal ventricular systolic function. LVEF is estimated at 65%. 2. Normal diastolic function. 3. Moderate left atrial dilatation. 4. No significant valvular dysfunction. 5. Normal right-sided pressures. Adult Echocardiography Procedure Report Left Ventricle LVEDD (3.7 - 5.6 cm): 4.18 cm LVESD (2.2 - 4.0 cm): 2.33 cm LVIVS thickness (0.6 - 1.2 cm): 1.26 cm LVPW thickness (0.5 - 1.0 cm): 1.01 cm e': 0.11 m/s E - e': 9.58 LVOT Max Gradient: 4.80 mm[Hg], 4.94 mm[Hg] LVOT Area (cm2): 1.10 m/s Peak Velocity (LVOT): 1.10 m/s, 1.11 m/s Mean Velocity (LVOT): 0.81 m/s LVOT Diameter 2.05 cm Left Atrium LA Volume Index (2D A2C): 53.94 ml/m2 Left Atrium Systolic Dimension: 3.17 cm Mitral Valve MV E to A Ratio: 1.04 Mitral Valve A-Wave Peak Velocity: 1.02 m/s Mitral Valve E-Wave Peak Velocity: 1.06 m/s Right Ventricle Aorta AO Root Diam: 2.99 cm Aortic Valve AoV Area ([place]): 2.16 cm2, 2.13 cm2, 2.19 cm2 AoV Area (VTI): 2.27 cm2, 2.31 cm2, 2.24 cm2 Peak Velocity(Antegrade Flow): 1.69 m/s, 1.67 m/s Peak Gradient(Antegrade Flow): 11.43 mm[Hg], 11.09 mm[Hg] Mean Velocity(Antegrade Flow): 1.15 m/s, 1.17 m/s Mean Gradient(Antegrade Flow): 6.00 mm[Hg], 6.17 mm[Hg] Velocity Time Integral: 36.04 cm, 36.86 cm Tricuspid Valve Peak Velocity (Regurgitant Flow): 1.85 m/s Pulmonic Valve Mean Gradient: 1.93 mm[Hg] Mean Velocity: 0.65 m/s Peak Velocity: 1.00 m/s, 0.94 m/s Peak Gradient: 3.55 mm[Hg], 3.96 mm[Hg] Right Atrium Right Atrium Systolic Pressure: 38.62 ml, 38.62 ml Dictated by: Yogesh Marion M.D. on 03/02/2024 at 17:42 Approved by: Yogesh Marion M.D. on 03/02/2024 at 17:44
== END 2024-03-02 07:43 | disposition home or self-care (01) ==
LOC: CARD 07:44
PROVIDERS: PCP Family Medicine; Visit Provider Family Medicine
DX: I51.7 Cardiomegaly (principal); I51.9 Heart disease, unspecified; I07.1 Rheumatic tricuspid insufficiency
CPT/HCPCS: 93306

== ENCOUNTER 2024-03-02 21:24 | Emergency (ER) | payer MEDICARE, OTHER, SELFPAY ==
[2024-03-02] VITALS (19 sets, daily range): BP systolic 109–140; BP diastolic 58–82; PULSE 72–84; TEMP 36.4; O2SAT 94–99; BMI 24.2
--- OUTSIDE RECORDS SUMMARY | 2024-03-02 21:29 | XMS_ITS | CCD ---
Author Organization [facility] Care Team Providers Care Rural Carrier Associate Name Role Phone NAWRAS, ALI T Unavailable Unavailable NAWRAS, ALI T Unavailable Unavailable HOY, NAPOLEON Unavailable Unavailable HOY, NAPOLEON Unavailable Unavailable [place] Unavailable Unavailable NAWRAS, ALI T Unavailable Unavailable [...] Unavailable HOY ., DR BENDER Attending Unavailable RACINE, DR MEAGHAN Stanton Consulting Unavailable HOY ., [...] Primary Care Unavailable CHARO RASCON Consulting Unavailable REX BUSTILLO Consulting Unavailable LITTLE ., DR BETHEL [...] Unavailable HOY ., DR BENDER Attending Unavailable RACINE, DR MEAGHAN Stanton Consulting Unavailable RAMIREZ ., [...] Morris Attending Unavailab Cristian Du Admitting Unavailab Napoloen Gómez Primary Care Unavailable Allergies Allergy Classification Reported Allergen(s) Allergy Type Date of Onset Reaction(s) Facility (1 source) Contrast media; Translations: [IVP DYE] Propensity to adverse reactions (disorder) 1 [facility] Repository (2 sources) corn extract; Translations: [CORN] Drug Allergy 1 [facility] Repository (6 sources) iodine; Translations: [IODINE] Drug Allergy 9 Edema [facility] Repository (6 sources) Latex; Translations: [LATEX] Drug allergy (disorder) 9 Anaphylaxis [facility] Repository (1 source) loratadine Drug Allergy 1 [facility] Repository (2 sources) loratadine; Translations: [LORATADINE] Drug Allergy 3 [facility] Repository (1 source) montelukast Drug Allergy 1 [facility] Repository (3 sources) papaveretum; Translations: [SOYBEAN] Drug Allergy 1 [facility] Repository (2 sources) Penicillins; Translations: [PENICILLINS] Drug allergy (disorder) 1 [facility] Repository (1 source) povidone-iodine Drug Allergy 9 [facility] Repository (6 sources) propofol; Translations: [PROPOFOL] Drug Allergy 2 Anaphylaxis [facility] Repository (2 sources) wheat preparation; Translations: [WHEAT] Drug Allergy 2 [facility] Repository (5 sources) Iodinated Contrast Media; Translations: [IODINATED CONTRAST MEDIA] Allergy to Substance 12-19-201 4 Anaphylaxis [facility] Repository (1 source) montelukast; Translations: [MONTELUKAST] Drug Allergy 4 [facility] Repository (1 source) oxybutynin; Translations: [DITROPAN] Drug Allergy 2 [facility] Repository (1 source) Povidone-Iodine; Translations: [POVIDONE-IODINE] Drug Allergy 4 [facility] Repository (1 source) Soy protein; Translations: [SOY] Propensity to adverse reactions to drug (disorder) 2 [facility] Repository (1 source) Iodine (And Iodine Containting Drugs) Drug allergy (disorder) 4 [facility] Repository (1 source) Penicillin Drug Allergy [facility] Repository (1 source) Sulfonamides (Antibiotic) Drug allergy (disorder) 2 [facility] Repository (1 source) Iodine Drug Allergy 8 [facility] Repository (1 source) Latex Drug allergy (disorder) 8 [facility] Repository (1 source) Propofol Drug Allergy 8 [facility] Repository Medications Completed/Discontinued Medications Medication Drug [...] 07-15-2022 Episodic Other aftercare (1 source) Other chcf (current) drug therapy; Translations: [OTH HALF-WAY CURRENT [...] KRYSTIAN ALFARO Date: 2023-03-05 13:50 Normal [facility] CBC AUTO DIFFon 02-20-2023 BASO # 0.1 103/ul Normal 0.0-0.1 [facility] Comment on above: Performed By: #### C BC #### [facility] [address] [place] [address] Dr. Raul Pereira Basophils/100 WBC (Bld) 0.6 % Normal 0.2-2.0 [facility] Comment on above: Performed By: #### C BC #### [facility] [address] [place] [address] Dr. Raul Pereira EO # 0.2 103/ul Normal 0.0-0.7 [facility] Comment on above: Performed By: #### C BC #### [facility] [address] [place] [address] Dr. Raul Pereira Eosinophils/100 WBC (Bld) 2.3 % Normal 0.9-7.0 [facility] Comment on above: Performed By: #### C BC #### [facility] [address] [place] [address] Dr. Raul Pereira Hematocrit (Bld) [Volume fraction] 39.5 % Normal 36.0-48.0 [facility] Comment on above: Performed By: #### C BC #### [facility] [address] [place] [address] Dr. Raul Pereira Hemoglobin (Bld) [Mass/Vol] 12.3 g/dL Normal 12.0-16.0 [facility] Comment on above: Performed By: #### C BC #### [facility] [address] [place] [address] Dr. Raul Pereira IG # 0.03 10e3/ul Normal 0.00-0.03 [facility] Comment on above: Performed By: #### C BC #### [facility] [address] [place] [address] Dr. Raul Pereira IG % 0.4 % Normal 0.0-0.5 [facility] Comment on above: Performed By: #### C BC #### [facility] [address] [place] [address] Dr. Raul Pereira LYMPH # 2.1 103/ul Normal 1.2-3.8 [facility] Comment on above: Performed By: #### C BC #### [facility] [address] [place] [address] Dr. Raul Pereira Lymphocytes/100 WBC (Bld) 24.8 % Normal 20.5-60.0 [facility] Comment on above: Performed By: #### C BC #### [facility] [address] [place] [address] Dr. Raul Pereira MANUAL DIFF REQ NO Normal [facility] Comment on above: Performed By: #### C BC #### [facility] [address] [place] [address] Dr. Raul Pereira MCH (RBC) [Entitic mass] 26.3 pg Critically low 26.7-34.0 [facility] Comment on above: Performed By: #### C BC #### [facility] [address] [place] [address] Dr. Raul Pereira MCHC (RBC) [Mass/Vol] 31.1 g/dL Normal 29.9-35.2 [facility] Comment on above: Performed By: #### C BC #### [facility] [address] [place] [address] Dr. Raul Pereira MCV (RBC) [Entitic vol] 84.4 fL Normal 81.0-99.0 [facility] Comment on above: Performed By: #### C BC #### [facility] [address] [place] [address] Dr. Raul Pereira MONO # 1.0 103/ul Critically high 0.3-0.8 [facility] Comment on above: Performed By: #### C BC #### [facility] [address] [place] [address] Dr. Raul Pereira Monocytes/100 WBC (Bld) 11.8 % Normal 1.7-12.0 [facility] Comment on above: Performed By: #### C BC #### [facility] [address] [place] [address] Dr. Raul Pereira NEUT # 5.0 103/ul Normal 1.4-6.5 [facility] Comment on above: Performed By: #### C BC #### [facility] [address] [place] [address] Dr. Raul Pereira Neutrophils/100 WBC (Bld) 60.1 % Normal 43.0-75.0 [facility] Comment on above: Performed By: #### C BC #### [facility] [address] [place] [address] Dr. Raul Pereira Platelet mean volume (Bld) [Entitic vol] 8.8 fL Critically low 9.5-13.5 [facility] Comment on above: Performed By: #### C BC #### [facility] [address] [place] [address] Dr. Raul Pereira PLT 418 103/ul Normal 150-450 [facility] Comment on above: Performed By: #### C BC #### [facility] [address] [place] [address] Dr. Raul Pereira RBC 4.68 106/ul Normal 4.20-5.40 [facility] Comment on above: Performed By: #### C BC #### [facility] [address] [place] [address] Dr. Raul Pereira WBC 8.3 103/ul Normal 4.0-11.0 [facility] Comment on above: Performed By: #### C BC #### [facility] [address] [place] [address] Dr. Raul Pereira FERRITINon 02-20-2023 Ferritin [Mass/Vol] 15.0 ng/mL Normal 8.0-252.0 [facility] Comment on above: Performed By: #### C BC #### [facility] [address] [place] [address] Dr. Raul Pereira XR CSPINE 2_3 VIEWSon [...] by: JESSICA LIPSCOMB Date: 2023-02-19 06:42 Normal [facility] CT LUNG CANCER SCREENINGon 0 02-13-2023 [...] by: MEAGHAN SKINNER Date: 2023-02-13 11:02 Normal [facility] ECHOCARDIO M/2D COMPLETEon 0 3-30-2023 ECHOCARDIO M/2D COMPLETE Patient: RHETT MEJIA Exam Date: 02/13/2023 : 1960 Gender:F Ordering : DR NAPOLEON RAHMAN . Admission #: [id number] Family : Order #: [id number] CLICK HERE TO VIEW EXAM ECHOCARDIOGRAM REPORT [...] M.D. on 02/13/2023 at 18:54 Normal [facility] CREATININEon 02-12-2023 Creatinine [Mass/Vol] 0.76 mg/dL Normal 0.55-1.02 [facility] Comment on above: Performed By: #### C BC #### [facility] [address] [address] [address] Raul Pereira EGFR-AF [place] >60 Normal >=60 [facility] Comment on above: Performed By: #### C BC #### [facility] [address] [address] [address] Raul Pereira EGFR-NON AF [place] >60 Normal >=60 [facility] Comment on above: Performed By: #### C BC #### [facility] [address] [place] [address] Dr. Raul Pereira MRI BRAIN WO W [...] by: JESSICA LIPSCOMB Date: 2023-02-12 12:37 Normal [facility] US CAROTID ART BILon 02-12-2 023 [...] JESSICA LIPSCOMB Date: 2023-02-12 14:03 Normal [facility] COMPLIANCE DRUG SCREENon PDF . Normal [facility] Comment on above: Performed By: #### C BC #### [facility] [address] [place] [address] Dr. Raul Pereira Summary FINAL Normal [facility] Comment on above: Result Comment: == [...] == Performed By: #### C BC #### [facility] [address] [place] [address] Dr. Raul Pereira CULTURE URINEon 02-02-2023 CULTURE [...] Trimethoprim/Sulfamethoxa zole <=20 S F Normal [facility] Comment on above: Performed By: #### U RCX #### [facility] [address] [place] [address] Dr. Raul Pereira AMMONIAon 01-31-2023 Ammonia (P) [Moles/Vol] 13 umol/L Normal 11-32 [facility] Comment on above: Performed By: #### A MM ####[facility] [id number] [address]Dr. Raul Pereira CBC AUTO DIFFon 01-31-2023 BASO # 0.1 103/ul Normal 0.0-0.1 [facility] Comment on above: Performed By: #### C BC #### [facility] [address] [place] [address] Dr. Raul Pereira Basophils/100 WBC (Bld) 0.6 % Normal 0.2-2.0 [facility] Comment on above: Performed By: #### C BC #### [facility] [address] [place] [address] Dr. Raul Pereira EO # 0.1 103/ul Normal 0.0-0.7 [facility] Comment on above: Performed By: #### C BC #### [facility] [address] [place] [address] Dr. Raul Pereira Eosinophils/100 WBC (Bld) 1.7 % Normal 0.9-7.0 [facility] Comment on above: Performed By: #### C BC #### [facility] [address] [place] [address] Dr. Raul Pereira Erythrocyte distribution width (RBC) [Ratio] 25.9 % Critically high 11.0-15.0 [facility] Comment on above: Result Comment: 2+ a niso Performed By: #### C BC #### [facility] [address] [place] [address] Dr. Raul Pereira Hematocrit (Bld) [Volume fraction] 42.4 % Normal 36.0-48.0 [facility] Comment on above: Performed By: #### C BC #### [facility] [address] [place] [address] Dr. Raul Pereira Hemoglobin (Bld) [Mass/Vol] 13.1 g/dL Normal 12.0-16.0 [facility] Comment on above: Performed By: #### C BC #### [facility] [address] [place] [address] Dr. Raul Pereira IG # 0.02 10e3/ul Normal 0.00-0.03 [facility] Comment on above: Performed By: #### C BC #### [facility] [address] [place] [address] Dr. Raul Pereira IG % 0.2 % Normal 0.0-0.5 [facility] Comment on above: Performed By: #### C BC #### [facility] [address] [place] [address] Dr. Raul Pereira LYMPH # 2.0 103/ul Normal 1.2-3.8 [facility] Comment on above: Performed By: #### C BC #### [facility] [address] [place] [address] Dr. Raul Pereira Lymphocytes/100 WBC (Bld) 24.8 % Normal 20.5-60.0 [facility] Comment on above: Performed By: #### C BC #### [facility] [address] [place] [address] Dr. Raul Pereira MANUAL DIFF REQ NO Normal [facility] Comment on above: Performed By: #### C BC #### [facility] [address] [place] [address] Dr. Raul Pereira MCH (RBC) [Entitic mass] 25.3 pg Critically low 26.7-34.0 [facility] Comment on above: Performed By: #### C BC #### [facility] [address] [place] [address] Dr. Raul Pereira MCHC (RBC) [Mass/Vol] 30.9 g/dL Normal 29.9-35.2 [facility] Comment on above: Performed By: #### C BC #### [facility] [address] [place] [address] Dr. Raul Pereira MCV (RBC) [Entitic vol] 82.0 fL Normal 81.0-99.0 [facility] Comment on above: Performed By: #### C BC #### [facility] [address] [place] [address] Dr. Raul Pereira MONO # 0.7 103/ul Normal 0.3-0.8 [facility] Comment on above: Performed By: #### C BC #### [facility] [address] [place] [address] Dr. Raul Pereira Monocytes/100 WBC (Bld) 8.8 % Normal 1.7-12.0 [facility] Comment on above: Performed By: #### C BC #### [facility] [address] [address] [address] Raul Pereira NEUT # 5.2 103/ul Normal 1.4-6.5 [facility] Comment on above: Performed By: #### C BC #### [facility] [address] [address] [address] Raul Pereira Neutrophils/100 WBC (Bld) 63.9 % Normal 43.0-75.0 [facility] Comment on above: Performed By: #### C BC #### [facility] [address] [address] [address] Raul Pereira Platelet mean volume (Bld) [Entitic vol] 9.2 fL Critically low 9.5-13.5 [facility] Comment on above: Performed By: #### C BC #### [facility] [address] [address] [address] Raul Pereira PLT 334 103/ul Normal 150-450 [facility] Comment on above: Performed By: #### C BC #### [facility] [address] [address] [address] Raul Pereira RBC 5.17 106/ul Normal 4.20-5.40 [facility] Comment on above: Performed By: #### C BC #### [facility] [address] [address] [address] Raul Pereira WBC 8.2 103/ul Normal 4.0-11.0 [facility] Comment on above: Performed By: #### C BC #### [facility] [address] [address] [address] Raul Pereira SARA - LIPID PROFILEon 2022 CHOL-HDL RATIO NORM SEE BELOW Normal [facility] Comment on above: Result Comment: 3.3 - 4.4 LOW RISK 4.4 - 7.1 AVERAGE RISK 7.1 - 11.0 MODERATE RISK >11.0 HIGH RISK Performed By: #### D ATLIPI ####[facility] [address] [address]Dr. Raul Pereira Cholesterol [Mass/Vol] 178 mg/dL Normal <=200 [facility] Comment on above: Performed By: #### D ATLIPI ####[facility] [address] [id number]. Raul Pereira Cholesterol in HDL [Mass/Vol] 73 mg/dL Critically high 40-60 [facility] Comment on above: Performed By: #### D ATLIPI ####[facility] [address] [id number]. Raul Pereira Cholesterol in LDL [Mass/Vol] 72.0 mg/dL Normal [facility] Comment on above: Performed By: #### D ATLIPI ####[facility] [address] [address]Dr. Raul Randall Cholesterol.total/C holesterol in HDL [Mass ratio] 2.4 {ratio} Normal [facility] Comment on above: Performed By: #### D ATLIPI ####[facility] [address] [address]Dr. Raul Pereira HDL NORMAL > or = 60 mg/dl - LO W CARDIOVASCULAR RISK <40 mg/dl - HIGH CARDIOVASCULAR RISK Normal [facility] Comment on above: Performed By: #### D ATLIPI ####[facility] [address] [address]Dr. Raul Pereira LDL CALC NORMAL SEE BELOW Normal [facility] Comment on above: Result Comment: <100 mg/dl OPTIMAL 100 - 129 mg/dl NEAR OR ABOVE OPTIMAL 130 - 159 mg/dl BORDERLINE HIGH 160 - 189 mg/dl HIGH >190 mg/dl VERY HIGH Performed By: #### D ATLIPI ####[facility] [address] [address]Dr. Raul Randall Triglyceride [Mass/Vol] 165 mg/dL Critically high <=150 [facility] Comment on above: Performed By: #### D ATLIPI ####[facility] [address] [address]Dr. Aranzapetr Randall VLDL CALC 33.0 mg/dL Normal [facility] Comment on above: Performed By: #### D ATLIPI ####[facility] [address] [address]Dr. Raul Pereira DRUG SCREEN RAPID (URINE)on 01-31-2023 AMP Positive Abnormal NEGATIVE [facility] Comment on above: Performed By: #### C BC #### [facility] [address] [address] [address] Raul Pereira BAR Negative Normal NEGATIVE [facility] Comment on above: Performed By: #### C BC #### [facility] [address] [address] [address] Raul Pereira BUP Positive Abnormal NEGATIVE [facility] Comment on above: Performed By: #### C BC #### [facility] [address] [address] [address] Raul Pereira BZO Negative Normal NEGATIVE [facility] Comment on above: Performed By: #### C BC #### [facility] [address] [address] [address] Raul Pereira RADHA Negative Normal NEGATIVE [facility] Comment on above: Performed By: #### C BC #### [facility] [address] [address] [address] Raul Pereira CUT-OFFS SEE BELOW Normal [facility] Comment on above: Result Comment: AMP [...] ng/mL Performed By: #### C BC #### [facility] [address] [address] [address] Raul Pereira DRUG CUT HEADER DRUG CLASS TEST SYST EM CUT-OFF CONCENTRATIONS ARE FOLLOWS: Normal [facility] Comment on above: Performed By: #### C BC #### [facility] [address] [address] [address] Raul Pereira mAMP Negative Normal NEGATIVE [facility] Comment on above: Performed By: #### C BC #### [facility] [address] [address] [address] Raul Pereira MTD Negative Normal NEGATIVE [facility] Comment on above: Performed By: #### C BC #### [facility] [address] [place] [address] Dr. Raul Pereira OPI Negative Normal NEGATIVE [facility] Comment on above: Performed By: #### C BC #### [facility] [address] [place] [address] Dr. Raul Pereira OXY Negative Normal NEGATIVE [facility] Comment on above: Performed By: #### C BC #### [facility] [address] [place] [address] Dr. Raul Pereira PCP Negative Normal NEGATIVE [facility] Comment on above: Performed By: #### C BC #### [facility] [address] [address] [address] Raul Pereira PPX Negative Normal NEGATIVE [facility] Comment on above: Performed By: #### C BC #### [facility] [address] [place] [address] Dr. Raul Pereira TCA Positive Abnormal NEGATIVE [facility] Comment on above: Performed By: #### C BC #### [facility] [address] [place] [address] Dr. Raul Pereira THC Negative Normal NEGATIVE [facility] Comment on above: Performed By: #### C BC #### [facility] [address] [place] [address] Dr. Raul Pereira FREE THYROXINE INDEX T7on FTI 2.89 Normal 1.30-4.50 [facility] Comment on above: Performed By: #### C VDTBH #### [facility] [address] [place] [address] Dr. Raul Pereira T3U 39.0 % Normal 30.0-39.0 [facility] Comment on above: Performed By: #### C VDTBH #### [facility] [address] [address] [address] Raul Pereira T4 [Mass/Vol] 7.40 ug/dL Normal 4.80-13.90 [facility] Comment on above: Performed By: #### C VDTBH #### [facility] [address] [address] [address] Raul Pereira GLYCOHEMOGLOBIN A1Con 2022 ADA RECOMMENDATION SEE BELOW Normal [facility] Comment on above: Result Comment: ADA RECOMMENDED LIMIT 4.0 - 6.0 ADA THERAPEUTIC TARGET < 7.0 ACTION SUGGESTED > 7.0 Performed By: #### D ATA1C ####[facility] [address] [place], [place] [address]NfDr. Raul Pereira Glucose [Mass/Vol] 108 mg/dL Normal [facility] Comment on above: Performed By: #### D ATA1C ####[facility] [address] [id number]. Raul Pereira HbA1c (Bld) [Mass fraction] 5.4 % Normal 4.5-6.2 [facility] Comment on above: Performed By: #### D ATA1C ####[facility] [address] [place], [place] [address]NiDr. Raul Pereira IRONon 01-31-2023 Iron [Mass/Vol] 225.0 ug/dL Critically high 50.0-170.0 [facility] Comment on above: Performed By: #### C VDTBH #### [facility] [address] [address] [address] Raul Pereira PROF 14(COMP METB)on 023 Albumin [Mass/Vol] 3.8 g/dL Normal 3.4-5.0 [facility] Comment on above: Performed By: #### C VDTBH #### [facility] [address] [address] [address] Raul Pereira Albumin/Globulin [Mass ratio] 1.2 {ratio} Normal [facility] Comment on above: Performed By: #### C VDTBH #### [facility] [address] [address] [address] Raul Pereira ALP [Catalytic activity/Vol] 77 U/L Normal 46-116 [facility] Comment on above: Performed By: #### C VDTBH #### [facility] [address] [address] [address] Raul Pereira ALT [Catalytic activity/Vol] 19 U/L Normal 14-59 [facility] Comment on above: Performed By: #### C VDTBH #### [facility] [address] [address] [address] Raul Pereira Anion gap [Moles/Vol] 12.9 mmol/L Normal [facility] Comment on above: Performed By: #### C VDTBH #### [facility] [address] [address] [address] Raul Pereira AST [Catalytic activity/Vol] 17 U/L Normal 15-37 [facility] Comment on above: Performed By: #### C VDTBH #### [facility] [address] [address] [address] Raul Pereira Bilirubin [Mass/Vol] 0.3 mg/dL Normal 0.2-1.0 [facility] Comment on above: Performed By: #### C VDTBH #### [facility] [address] [address] [address] Raul Pereira Calcium [Mass/Vol] 8.9 mg/dL Normal 8.5-10.1 [facility] Comment on above: Performed By: #### C VDTBH #### [facility] [address] [address] [address] Raul Pereira Chloride [Moles/Vol] 101 mmol/L Normal 98-107 [facility] Comment on above: Performed By: #### C VDTBH #### [facility] [address] [address] [address] Raul Pereira CO2 [Moles/Vol] 28.5 mmol/L Normal 21.0-32.0 [facility] Comment on above: Performed By: #### C VDTBH #### [facility] [address] [address] [address] Raul Pereira Creatinine [Mass/Vol] 0.59 mg/dL Normal 0.55-1.02 [facility] Comment on above: Performed By: #### C VDTBH #### [facility] [address] [address] [address] Raul Pereira EGFR-AF [place] >60 Normal >=60 [facility] Comment on above: Performed By: #### C VDTBH #### [facility] [address] [address] [address] Raul Pereira EGFR-NON AF [place] >60 Normal >=60 [facility] Comment on above: Performed By: #### C VDTBH #### [facility] [address] [place] [address] Dr. Raul Pereira Globulin (S) [Mass/Vol] 3.1 g/dL Normal [facility] Comment on above: Performed By: #### C VDTBH #### [facility] [address] [address] [address] Raul Pereira Glucose [Mass/Vol] 84 mg/dL Normal 74-106 [facility] Comment on above: Performed By: #### C VDTBH #### [facility] [address] [address] [address] Raul Pereira Potassium [Moles/Vol] 4.4 mmol/L Normal 3.5-5.1 [facility] Comment on above: Performed By: #### C VDTBH #### [facility] [address] [address] [address] Raul Pereira Protein [Mass/Vol] 6.9 g/dL Normal 6.4-8.2 [facility] Comment on above: Performed By: #### C VDTBH #### [facility] [address] [address] [address] Raul Pereira Sodium [Moles/Vol] 138 mmol/L Normal 136-145 [facility] Comment on above: Performed By: #### C VDTBH #### [facility] [address] [place] [address] Dr. Raul Pereira Urea nitrogen [Mass/Vol] 11.0 mg/dL Normal 7.0-18.0 [facility] Comment on above: Performed By: #### C VDTBH #### [facility] [address] [place] [address] Dr. Raul Pereira Urea nitrogen/Creatinine [Mass ratio] 18.6 mg/mg Normal [facility] Comment on above: Performed By: #### C VDTBH #### [facility] [address] [place] [address] Dr. Raul Pereira TSHon 01-31-2023 TSH 2.354 uIU/mL Normal 0.358-3.740 [facility] Comment on above: Performed By: #### C VDTBH #### [facility] [address] [place] [address] Dr. Raul Pereira UA RANDOM W/MICROSCOPICon BACTERIA NONE SEEN Normal NONE SEEN [facility] Comment on above: Performed By: #### C BC #### [facility] [address] [place] [address] Dr. Raul Pereira Bilirubin Ql (U) Negative Normal NEGATIVE [facility] Comment on above: Performed By: #### C BC #### [facility] [address] [place] [address] Dr. Raul Pereira CAST NONE SEEN Normal NONE SEEN [facility] Comment on above: Performed By: #### C BC #### [facility] [address] [place] [address] Dr. Raul Pereira Clarity (U) CLEAR Normal CLEAR [facility] Comment on above: Performed By: #### C BC #### [facility] [address] [place] [address] Dr. Raul Pereira Color (U) YELLOW Normal YELLOW [facility] Comment on above: Performed By: #### C BC #### [facility] [address] [place] [address] Dr. Raul Pereira Crystals LM Nom (Urine sed) NONE SEEN Normal NONE SEEN [facility] Comment on above: Performed By: #### C BC #### [facility] [address] [address] [address] Raul Pereira Epithelial cells LM Ql (Urine sed) NONE SEEN Normal NONE SEEN /RARE [facility] Comment on above: Performed By: #### C BC #### [facility] [address] [place] [address] Dr. Raul Pereira Glucose Ql (U) Negative Normal NEGATIVE [facility] Comment on above: Performed By: #### C BC #### [facility] [address] [address] [address] Raul Pereira Hemoglobin Ql (U) Negative Normal NEGATIVE [facility] Comment on above: Performed By: #### C BC #### [facility] [address] [place] [address] Dr. Raul Pereira Ketones Ql (U) Negative Normal NEGATIVE [facility] Comment on above: Performed By: #### C BC #### [facility] [address] [place] [address] Dr. Raul Pereira LEUKOCYTES Negative Normal NEGATIVE [facility] Comment on above: Performed By: #### C BC #### [facility] [address] [place] [address] Dr. Raul Pereira MUCOUS NONE SEEN Normal NONE SEEN [facility] Comment on above: Performed By: #### C BC #### [facility] [address] [place] [address] Dr. Raul Pereira Nitrite Ql (U) Negative Normal NEGATIVE [facility] Comment on above: Performed By: #### C BC #### [facility] [address] [place] [address] Dr. Raul Pereira pH (U) 5.5 [pH] Normal 5-9 [facility] Comment on above: Performed By: #### C BC #### [facility] [address] [place] [address] Dr. Raul Pereira RBC NONE SEEN Abnormal 0-2 [facility] Comment on above: Performed By: #### C BC #### [facility] [address] [place] [address] Dr. Raul Pereira SPEC GRAVITY 1.030 Abnormal 1.005-<=1.02 5 [facility] Comment on above: Performed By: #### C BC #### [facility] [address] [place] [address] Dr. Raul Pereira UA PROTEIN Negative Normal NEGATIVE/ TRACE [facility] Comment on above: Performed By: #### C BC #### [facility] [address] [place] [address] Dr. Raul Pereira Urobilinogen Qn (U) 0.2 {Farrukh'U}/dL Normal 0.2 - 1. 0 [facility] Comment on above: Performed By: #### C BC #### [facility] [address] [place] [address] Dr. Raul Pereira WBC NONE SEEN Normal NONE SEEN [facility] Comment on above: Performed By: #### C BC #### [facility] [address] [place] [address] Dr. Raul Pereira VITAMIN D 25 OHon 01-31-2023 VIT D 25-OH 40.8 ng/mL Normal [facility] Comment on above: Performed By: #### C VDTBH #### [facility] [address] [place] [address] Dr. Raul Pereira VIT D RANGES SEE BELOW Normal [facility] Comment on above: Result Comment: <20 ng/mL Vit D deficient 20 - <30 ng/mL Vit D insufficient 30 - 100 ng/mL Vit D sufficient >100 ng/mL Potential Toxicity Performed By: #### C VDTBH #### [facility] [address] [place] [address] Dr. Raul Pereira VC VENOUS REFLUX ALEXUS LMTon 0 01-30-2023 VC VENOUS REFLUX ALEXUS LMT Patient: RHETT MEJIA Exam Date: 01/30/2023 : 1960 Gender:F Ordering : DR NAPOLEON RAHMAN . Admission #: [id number] Family : Order #: [id number] CLICK HERE TO VIEW EXAM RADIOLOGY REPORT [...] thrombus. Compressibility: Normal. Flow: Deep venous reflux. Conservation Planner:Mid/medial lower leg 4.3 mm with 0.8s reflux. [...] great saphenous vein along with dilated, incompetent pediatric dentist veins and numerous branch saphenous varicosities. 2. 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 Proximal closer with endovenous laser ablation may be beneficial followed by treatment with microfoam chemical ablation. Incompetent lower leg pediatric dentist vein which may contribute to patient's reflux; laser ablation is recommended. Dilated, incompetent branch saphenous varicosities which would benefit from microfoam chemical ablation. 3. Consultation for endovenous ablation is recommended. Dictated by: Jessica Lipscomb M.D. on 01/31/2023 at 09:46 Approved by: Jessica Lipscomb M.D. on 01/31/2023 at 09:51 Normal [facility] CBC AUTO DIFFon 01-13-2023 BASO # 0.0 103/ul Normal 0.0-0.1 [facility] Comment on above: Performed By: #### C BC #### [facility] [address] [address] [address] Raul Pereira Basophils/100 WBC (Bld) 0.5 % Normal 0.2-2.0 [facility] Comment on above: Performed By: #### C BC #### [facility] [address] [address] [address] Raul Pereira EO # 0.1 103/ul Normal 0.0-0.7 [facility] Comment on above: Performed By: #### C BC #### [facility] [address] [place] [address] Dr. Raul Pereira Eosinophils/100 WBC (Bld) 1.7 % Normal 0.9-7.0 [facility] Comment on above: Performed By: #### C BC #### [facility] [address] [place] [address] Dr. Raul Pereira Erythrocyte distribution width (RBC) [Ratio] 18.4 % Critically high 11.0-15.0 [facility] Comment on above: Performed By: #### C BC #### [facility] [address] [place] [address] Dr. Raul Pereira Hematocrit (Bld) [Volume fraction] 33.1 % Critically low 36.0-48.0 [facility] Comment on above: Performed By: #### C BC #### [facility] [address] [place] [address] Dr. Raul Pereira Hemoglobin (Bld) [Mass/Vol] 10.4 g/dL Critically low 12.0-16.0 [facility] Comment on above: Performed By: #### C BC #### [facility] [address] [place] [address] Dr. Raul Pereira IG # 0.03 10e3/ul Normal 0.00-0.03 [facility] Comment on above: Performed By: #### C BC #### [facility] [address] [place] [address] Dr. Raul Pereira IG % 0.4 % Normal 0.0-0.5 [facility] Comment on above: Performed By: #### C BC #### [facility] [address] [place] [address] Dr. Raul Pereira LYMPH # 1.9 103/ul Normal 1.2-3.8 [facility] Comment on above: Performed By: #### C BC #### [facility] [address] [place] [address] Dr. Raul Pereira Lymphocytes/100 WBC (Bld) 25.2 % Normal 20.5-60.0 [facility] Comment on above: Performed By: #### C BC #### [facility] [address] [address] [address] Raul Pereira MANUAL DIFF REQ NO Normal [facility] Comment on above: Performed By: #### C BC #### [facility] [address] [place] [address] Dr. Raul Pereira MCH (RBC) [Entitic mass] 24.1 pg Critically low 26.7-34.0 [facility] Comment on above: Performed By: #### C BC #### [facility] [address] [place] [address] Dr. Raul Pereira MCHC (RBC) [Mass/Vol] 31.4 g/dL Normal 29.9-35.2 [facility] Comment on above: Performed By: #### C BC #### [facility] [address] [place] [address] Dr. Raul Pereira MCV (RBC) [Entitic vol] 76.6 fL Critically low 81.0-99.0 [facility] Comment on above: Performed By: #### C BC #### [facility] [address] [place] [address] Dr. Raul Pereira MONO # 0.8 103/ul Normal 0.3-0.8 [facility] Comment on above: Performed By: #### C BC #### [facility] [address] [place] [address] Dr. Raul Pereira Monocytes/100 WBC (Bld) 10.7 % Normal 1.7-12.0 [facility] Comment on above: Performed By: #### C BC #### [facility] [address] [place] [address] Dr. Raul Pereira NEUT # 4.7 103/ul Normal 1.4-6.5 [facility] Comment on above: Performed By: #### C BC #### [facility] [address] [place] [address] Dr. Raul Pereira Neutrophils/100 WBC (Bld) 61.5 % Normal 43.0-75.0 [facility] Comment on above: Performed By: #### C BC #### [facility] [address] [place], [place] [address] Dr. Raul Pereira Platelet mean volume (Bld) [Entitic vol] 8.6 fL Critically low 9.5-13.5 [facility] Comment on above: Performed By: #### C BC #### [facility] [address] [place], [place] [address] Dr. Raul Pereira PLT 461 103/ul Critically high 150-450 [facility] Comment on above: Performed By: #### C BC #### [facility] [address] [place], [place] [address] Dr. Raul Pereira RBC 4.32 106/ul Normal 4.20-5.40 [facility] Comment on above: Performed By: #### C BC #### [facility] [address] [place], [place] [address] Dr. Raul Pereira WBC 7.6 103/ul Normal 4.0-11.0 [facility] Comment on above: Performed By: #### C BC #### [facility] [address] [address] [address] Raul Pereira FREE THYROXINE INDEX T7on FTI 2.10 Normal 1.30-4.50 [facility] Comment on above: Performed By: #### T 7, CMP, TSH, LIPID ####[facility] [address] [place], [place] [address]KxDr. Raul Pereira T3U 35.0 % Normal 30.0-39.0 [facility] Comment on above: Performed By: #### T 7, CMP, TSH, LIPID ####[facility] [address] [place], [place] [address]ZvDr. Raul Pereira T4 [Mass/Vol] 6.00 ug/dL Normal 4.80-13.90 [facility] Comment on above: Performed By: #### T 7, CMP, TSH, LIPID ####[facility] [address] [place], [place] [address]KqDr. Raul Pereira GLYCOHEMOGLOBIN A1Con 2022 ADA RECOMMENDATION SEE BELOW Normal [facility] Comment on above: Result Comment: ADA RECOMMENDED LIMIT 4.0 - 6.0 ADA THERAPEUTIC TARGET < 7.0 ACTION SUGGESTED > 7.0 Performed By: #### C VDTBH #### [facility] [address] [address] [address] Raul Pereira Glucose [Mass/Vol] 108 mg/dL Normal [facility] Comment on above: Performed By: #### C VDTBH #### [facility] [address] [address] [address] Raul Pereira HbA1c (Bld) [Mass fraction] 5.4 % Normal 4.5-6.2 [facility] Comment on above: Performed By: #### C VDTBH #### [facility] [address] [address] [address] Raul Pereira IRON AND TIBCon 01-13-2023 % SATURATION 3.5 % Normal [facility] Comment on above: Performed By: #### F ETIBC, B12FOL, VITAD ####[facility] [address] [address]Dr. Raul Pereira Iron [Mass/Vol] 18.0 ug/dL Critically low 50.0-170.0 [facility] Comment on above: Performed By: #### F ETIBC, B12FOL, VITAD ####[facility] [address] [address]Dr. Raul Pereira TIBC DIRECT 513.0 ug/dL Critically high 250.0-450.0 [facility] Comment on above: Performed By: #### F ETIBC, B12FOL, VITAD ####[facility] [address] [address]Dr. Raul Pereira LIPID PROFILEon 01-13-2023 CHOL-HDL RATIO NORM SEE BELOW Normal [facility] Comment on above: Result Comment: 3.3 - 4.4 LOW RISK 4.4 - 7.1 AVERAGE RISK 7.1 - 11.0 MODERATE RISK >11.0 HIGH RISK Performed By: #### T 7, CMP, TSH, LIPID ####[facility] [address] [address]Dr. Yilan Pereira Cholesterol [Mass/Vol] 190 mg/dL Normal <=200 [facility] Comment on above: Performed By: #### T 7, CMP, TSH, LIPID ####[facility] [address] [id number]. Raul Pereira Cholesterol in HDL [Mass/Vol] 71 mg/dL Critically high 40-60 [facility] Comment on above: Performed By: #### T 7, CMP, TSH, LIPID ####[facility] [address] [id number]. Aranzapetr Pereira Cholesterol in LDL [Mass/Vol] 104.6 mg/dL Normal [facility] Comment on above: Performed By: #### T 7, CMP, TSH, LIPID ####[facility] [address] [address]Dr. Raul Pereira Cholesterol.total/C holesterol in HDL [Mass ratio] 2.7 {ratio} Normal [facility] Comment on above: Performed By: #### T 7, CMP, TSH, LIPID ####[facility] [address] [id number]. Raul Pereira HDL NORMAL > or = 60 mg/dl - LO W CARDIOVASCULAR RISK <40 mg/dl - HIGH CARDIOVASCULAR RISK Normal [facility] Comment on above: Performed By: #### T 7, CMP, TSH, LIPID ####[facility] [address] [id number]. Raul Pereira LDL CALC NORMAL SEE BELOW Normal [facility] Comment on above: Result Comment: <100 mg/dl OPTIMAL 100 - 129 mg/dl NEAR OR ABOVE OPTIMAL 130 - 159 mg/dl BORDERLINE HIGH 160 - 189 mg/dl HIGH >190 mg/dl VERY HIGH Performed By: #### T 7, CMP, TSH, LIPID ####[facility] [address] [id number]. Raul Pereira Triglyceride [Mass/Vol] 72 mg/dL Normal <=150 [facility] Comment on above: Performed By: #### T 7, CMP, TSH, LIPID ####[facility] [address] [id number]. Raul Pereira VLDL CALC 14.4 mg/dL Normal [facility] Comment on above: Performed By: #### T 7, CMP, TSH, LIPID ####[facility] [address] [address]Dr. Raul Pereira PROF 14(COMP METB)on 023 Albumin [Mass/Vol] 3.5 g/dL Normal 3.4-5.0 [facility] Comment on above: Performed By: #### T 7, CMP, TSH, LIPID ####[facility] [address] [address]Dr. Raul Pereira Albumin/Globulin [Mass ratio] 1.1 {ratio} Normal [facility] Comment on above: Performed By: #### T 7, CMP, TSH, LIPID ####[facility] [address] [address]Dr. Raul Pereira ALP [Catalytic activity/Vol] 92 U/L Normal 46-116 [facility] Comment on above: Performed By: #### T 7, CMP, TSH, LIPID ####[facility] [address] [address]Dr. Raul Pereira ALT [Catalytic activity/Vol] 17 U/L Normal 14-59 [facility] Comment on above: Performed By: #### T 7, CMP, TSH, LIPID ####[facility] [address] [address]Dr. Raul Pereira Anion gap [Moles/Vol] 10.0 mmol/L Normal [facility] Comment on above: Performed By: #### T 7, CMP, TSH, LIPID ####[facility] [address] [address]Dr. Raul Pereira AST [Catalytic activity/Vol] 17 U/L Normal 15-37 [facility] Comment on above: Performed By: #### T 7, CMP, TSH, LIPID ####[facility] [address] [address]Dr. Raul Pereira Bilirubin [Mass/Vol] 0.2 mg/dL Normal 0.2-1.0 [facility] Comment on above: Performed By: #### T 7, CMP, TSH, LIPID ####[facility] [address] [id number]. Raul Pereira Calcium [Mass/Vol] 8.8 mg/dL Normal 8.5-10.1 [facility] Comment on above: Performed By: #### T 7, CMP, TSH, LIPID ####[facility] [address] [address]Dr. Raul Pereira Chloride [Moles/Vol] 101 mmol/L Normal 98-107 [facility] Comment on above: Performed By: #### T 7, CMP, TSH, LIPID ####[facility] [address] [address]Dr. Raul Pereira CO2 [Moles/Vol] 29.4 mmol/L Normal 21.0-32.0 [facility] Comment on above: Performed By: #### T 7, CMP, TSH, LIPID ####[facility] [address] [address]Dr. Raul Pereira Creatinine [Mass/Vol] 0.50 mg/dL Critically low 0.55-1.02 [facility] Comment on above: Performed By: #### T 7, CMP, TSH, LIPID ####[facility] [address] [address]Dr. Raul Pereira EGFR-AF [place]IZ[place] >60 Normal >=60 [facility] Comment on above: Performed By: #### T 7, CMP, TSH, LIPID ####[facility] [address] [address]Dr. Raul Pereira EGFR-NON AF [place]IZ[place] >60 Normal >=60 [facility] Comment on above: Performed By: #### T 7, CMP, TSH, LIPID ####[facility] [address] [address]Dr. Raul Pereira Globulin (S) [Mass/Vol] 3.2 g/dL Normal [facility] Comment on above: Performed By: #### T 7, CMP, TSH, LIPID ####[facility] [address] [address]Dr. aRul Pereira Glucose [Mass/Vol] 88 mg/dL Normal 74-106 [facility] Comment on above: Performed By: #### T 7, CMP, TSH, LIPID ####[facility] [address] [id number]. Raul Pereira Potassium [Moles/Vol] 4.4 mmol/L Normal 3.5-5.1 [facility] Comment on above: Performed By: #### T 7, CMP, TSH, LIPID ####[facility] [address] [phone]. Raul Pereira Protein [Mass/Vol] 6.7 g/dL Normal 6.4-8.2 [facility] Comment on above: Performed By: #### T 7, CMP, TSH, LIPID ####[facility] [address] [address]Dr. Raul Pereira Sodium [Moles/Vol] 136 mmol/L Normal 136-145 [facility] Comment on above: Performed By: #### T 7, CMP, TSH, LIPID ####[facility] [address] [id number]. Raul Pereira Urea nitrogen [Mass/Vol] 12.0 mg/dL Normal 7.0-18.0 [facility] Comment on above: Performed By: #### T 7, CMP, TSH, LIPID ####[facility] [address] [place] [id number]. Raul Pereira Urea nitrogen/Creatinine [Mass ratio] 24.0 mg/mg Normal [facility] Comment on above: Performed By: #### T 7, CMP, TSH, LIPID ####[facility] [address] [place] [id number]. Raul Pereira TSHon 01-13-2023 TSH 1.623 uIU/mL Normal 0.358-3.740 [facility] Comment on above: Performed By: #### T 7, CMP, TSH, LIPID ####[facility] [address] [address]Dr. Raul Pereira VIT B12 AND FOLATEon 02-27-2 023 Cobalamin (Vitamin B12) [Mass/Vol] 872.0 pg/mL Normal 193.0-986.0 [facility] Comment on above: Performed By: #### F ETIBC, B12FOL, VITAD ####[facility] [address] [address]Dr. Raul Pereira FOLATE 21.20 ng/mL Normal 8.60-58.90 [facility] Comment on above: Performed By: #### F ETIBC, B12FOL, VITAD ####[facility] [address] [address]Dr. Raul Pereira VITAMIN D 25 OHon 01-13-2023 VIT D 25-OH 40.6 ng/mL Normal [facility] Comment on above: Performed By: #### F ETIBC, B12FOL, VITAD ####[facility] [address] [place], [place] [address]Dr. Raul Pereira VIT D RANGES SEE BELOW Normal [facility] Comment on above: Result Comment: <20 ng/mL Vit D deficient 20 - <30 ng/mL Vit D insufficient 30 - 100 ng/mL Vit D sufficient >100 ng/mL Potential Toxicity Performed By: #### F ETIBC, B12FOL, VITAD ####[facility] [address] [place], [place] [address]Dr. Raul Preeira CBC AUTO DIFFon 01-10-2023 BASO # 0.1 103/ul Normal 0.0-0.1 [facility] Comment on above: Performed By: #### C VDTBH #### [facility] [address] [place] [address] Dr. Raul Pereira Basophils/100 WBC (Bld) 0.6 % Normal 0.2-2.0 [facility] Comment on above: Performed By: #### C VDTBH #### [facility] [address] [place] [address] Dr. Raul Pereira EO # 0.1 103/ul Normal 0.0-0.7 [facility] Comment on above: Performed By: #### C VDTBH #### [facility] [address] [place] [address] Dr. Raul Pereira Eosinophils/100 WBC (Bld) 1.3 % Normal 0.9-7.0 [facility] Comment on above: Performed By: #### C VDTBH #### [facility] [address] [place] [address] Dr. Raul Pereira Erythrocyte distribution width (RBC) [Ratio] 18.4 % Critically high 11.0-15.0 [facility] Comment on above: Performed By: #### C VDTBH #### [facility] [address] [place] [address] Dr. Raul Pereira Hematocrit (Bld) [Volume fraction] 37.8 % Normal 36.0-48.0 [facility] Comment on above: Performed By: #### C VDTBH #### [facility] [address] [place] [address] Dr. Raul Pereira Hemoglobin (Bld) [Mass/Vol] 11.6 g/dL Critically low 12.0-16.0 [facility] Comment on above: Performed By: #### C VDTBH #### [facility] [address] [place] [address] Dr. Raul Pereira IG # 0.02 10e3/ul Normal 0.00-0.03 [facility] Comment on above: Performed By: #### C VDTBH #### [facility] [address] [place] [address] Dr. Raul Pereira IG % 0.3 % Normal 0.0-0.5 [facility] Comment on above: Performed By: #### C VDTBH #### [facility] [address] [place] [address] Dr. Raul Pereira LYMPH # 1.7 103/ul Normal 1.2-3.8 [facility] Comment on above: Performed By: #### C VDTBH #### [facility] [address] [place] [address] Dr. Raul Pereira Lymphocytes/100 WBC (Bld) 21.0 % Normal 20.5-60.0 [facility] Comment on above: Performed By: #### C VDTBH #### [facility] [address] [place] [address] Dr. Raul Pereira MANUAL DIFF REQ NO Normal [facility] Comment on above: Performed By: #### C VDTBH #### [facility] [address] [place] [address] Dr. Raul Pereira MCH (RBC) [Entitic mass] 24.1 pg Critically low 26.7-34.0 [facility] Comment on above: Performed By: #### C VDTBH #### [facility] [address] [place] [address] Dr. Raul Pereira MCHC (RBC) [Mass/Vol] 30.7 g/dL Normal 29.9-35.2 [facility] Comment on above: Performed By: #### C VDTBH #### [facility] [address] [place] [address] Dr. Raul Pereira MCV (RBC) [Entitic vol] 78.6 fL Critically low 81.0-99.0 [facility] Comment on above: Performed By: #### C VDTBH #### [facility] [address] [place] [address] Dr. Raul Pereira MONO # 0.6 103/ul Normal 0.3-0.8 [facility] Comment on above: Performed By: #### C VDTBH #### [facility] [address] [place] [address] Dr. Raul Pereira Monocytes/100 WBC (Bld) 7.5 % Normal 1.7-12.0 [facility] Comment on above: Performed By: #### C VDTBH #### [facility] [address] [place] [address] Dr. Raul Pereira NEUT # 5.4 103/ul Normal 1.4-6.5 [facility] Comment on above: Performed By: #### C VDTBH #### [facility] [address] [place] [address] Dr. Raul Pereira Neutrophils/100 WBC (Bld) 69.3 % Normal 43.0-75.0 [facility] Comment on above: Performed By: #### C VDTBH #### [facility] [address] [address] [address] Raul Pereira Platelet mean volume (Bld) [Entitic vol] 9.0 fL Critically low 9.5-13.5 [facility] Comment on above: Performed By: #### C VDTBH #### [facility] [id number] Raul Pereira PLT 516 103/ul Critically high 150-450 [facility] Comment on above: Performed By: #### C VDTBH #### [facility] [address] [address] [address] Raul Pereira RBC 4.81 106/ul Normal 4.20-5.40 [facility] Comment on above: Performed By: #### C VDTBH #### [facility] [address] [address] [address] Raul Pereira WBC 7.8 103/ul Normal 4.0-11.0 [facility] Comment on above: Performed By: #### C VDTBH #### [facility] [address] [address] [address] Raul Pereira CULTURE BLOODon 01-10-2023 Microscopic examination of blood, culture Culture Observations: NO GROWTH AT 5 DAYS. Normal [facility] Comment on above: Performed By: #### B [id number] #### [facility] [address] [address] [address] Raul Pereira Microscopic examination of blood, culture Culture Observations: NO GROWTH AT 5 DAYS. Normal [facility] Comment on above: Performed By: #### B [id number] ####[facility] [address] [address]Dr. Raul Pereira PROF 14(COMP METB)on 023 Albumin [Mass/Vol] 3.7 g/dL Normal 3.4-5.0 [facility] Comment on above: Performed By: #### C BC #### [facility] [address] [address] [address] Raul Pereira Albumin/Globulin [Mass ratio] 0.9 {ratio} Normal [facility] Comment on above: Performed By: #### C BC #### [facility] [address] [place] [address] Dr. Raul Pereira ALP [Catalytic activity/Vol] 105 U/L Normal 46-116 [facility] Comment on above: Performed By: #### C BC #### [facility] [address] [address] [address] Raul Pereira ALT [Catalytic activity/Vol] 18 U/L Normal 14-59 [facility] Comment on above: Performed By: #### C BC #### [facility] [address] [place] [address] Dr. Raul Pereira Anion gap [Moles/Vol] 10.8 mmol/L Normal [facility] Comment on above: Performed By: #### C BC #### [facility] [address] [place] [address] Dr. Raul Pereira AST [Catalytic activity/Vol] 21 U/L Normal 15-37 [facility] Comment on above: Performed By: #### C BC #### [facility] [address] [place] [address] Dr. Raul Pereira Bilirubin [Mass/Vol] 0.3 mg/dL Normal 0.2-1.0 [facility] Comment on above: Performed By: #### C BC #### [facility] [address] [place] [address] Dr. Raul Pereira Calcium [Mass/Vol] 9.1 mg/dL Normal 8.5-10.1 [facility] Comment on above: Performed By: #### C BC #### [facility] [address] [place] [address] Dr. Raul Pereira Chloride [Moles/Vol] 100 mmol/L Normal 98-107 [facility] Comment on above: Performed By: #### C BC #### [facility] [address] [place] [address] Dr. Raul Pereira CO2 [Moles/Vol] 30.8 mmol/L Normal 21.0-32.0 [facility] Comment on above: Performed By: #### C BC #### [facility] [address] [place] [address] Dr. Raul Pereira Creatinine [Mass/Vol] 0.58 mg/dL Normal 0.55-1.02 [facility] Comment on above: Performed By: #### C BC #### [facility] [address] [address] [address] Raul Pereira EGFR-AF [place] CITIZ[place] >60 Normal >=60 [facility] Comment on above: Performed By: #### C BC #### [facility] [address] [address] [address] Raul Pereira EGFR-NON AF [place]IZ[place] >60 Normal >=60 [facility] Comment on above: Performed By: #### C BC #### [facility] [address] [place] [address] Dr. Raul Pereira Globulin (S) [Mass/Vol] 4.1 g/dL Normal [facility] Comment on above: Performed By: #### C BC #### [facility] [address] [place] [address] Dr. Raul Pereira Glucose [Mass/Vol] 86 mg/dL Normal 74-106 [facility] Comment on above: Performed By: #### C BC #### [facility] [address] [place] [address] Dr. Raul Pereira Potassium [Moles/Vol] 4.6 mmol/L Normal 3.5-5.1 [facility] Comment on above: Performed By: #### C BC #### [facility] [address] [place] [address] Dr. Raul Pereira Protein [Mass/Vol] 7.8 g/dL Normal 6.4-8.2 [facility] Comment on above: Performed By: #### C BC #### [facility] [address] [place] [address] Dr. Raul Pereira Sodium [Moles/Vol] 137 mmol/L Normal 136-145 [facility] Comment on above: Performed By: #### C BC #### [facility] [address] [place] [address] Dr. Raul Pereira Urea nitrogen [Mass/Vol] 9.0 mg/dL Normal 7.0-18.0 [facility] Comment on above: Performed By: #### C BC #### [facility] [address] [address] [address] Raul Pereira Urea nitrogen/Creatinine [Mass ratio] 15.5 mg/mg Normal [facility] Comment on above: Performed By: #### C BC #### [facility] [id number] Raul Pereira US PREMA DOP LEG [...] JESSICA LIPSCOMB Date: 2023-01-10 10:43 Normal [facility] Covid-19 PCR (CVDTB)on 11-18 SARS-CoV-2 (COVID-19) RNA IMELDA+probe Ql (Unsp spec) Not detected Normal NOT DETECTED [facility] Comment on above: Result Comment: This test is not yet approved or cleared by the [place] FDA. When there are no FDA-approved or cleared tests available, and other criteria are met, FDA can make tests available under an emergency access mechanism called an Emergency Use Authorization (EUA). The EUA for this test is supported by the Safety Supervisor of Health and Human Service's (HHS's) declaration [...] SARS-CoV-2. Performed By: #### C VDTBH #### [facility] [address] [address] [address] Raul Pereira CALCIUMon 12-03-2022 Calcium [Mass/Vol] 9.7 mg/dL Normal 8.5-10.1 [facility] Comment on above: Performed By: #### C VDTBH #### [facility] [address] [address] [address] Raul Pereira CREATININEon 12-03-2022 Creatinine [Mass/Vol] 0.53 mg/dL Critically low 0.55-1.02 [facility] Comment on above: Performed By: #### C BC #### [facility] [address] [place] [address] Dr. Raul Pereira EGFR-AF [place] CITIZ[place] >60 Normal >=60 [facility] Comment on above: Performed By: #### C BC #### [facility] [address] [address] [address] Raul Pereira EGFR-NON AF [place]IZ[place] >60 Normal >=60 [facility] Comment on above: Performed By: #### C BC #### [facility] [address] [place] [address] Dr. Raul Pereira Office Visiton 08-27-2022 Follow-up visit [id number] Lex Mejia rri L 1960 F Date Provider Department Center 08/27/2022 Nella-MICAELA GUPTA [facility] SURG Second Fl No family history on file Level of Service:64627 [place] POSTOP FOLLOW UP VISIT RELATED TO ORIGINAL PX Reason for Visit and Comments: Post-op [483] - Rhett is here today for a post op visit, s/p 08/16/22 LAP ZEESHAN Normal [facility] HISTOLOGY - TISSUE EXAMon LAB AP CASE REPORT Normal [facility] Comment on above: Order Comment: Pre-o p diagnosis:Calculus of gallbladder without cholecystitis without obstruction [K80.20] Result Comment: Surg ical Pathology Case: [id number] Authorizing Provider: Micaela Gupta MD Collected: 08/16/2022 0842 Ordering Location: [facility] Main Operating Room Received: 08/16/2022 1001 Pathologist: Maricruz Warren MD Specimen: Gallbladder, GALLBLADDER Performed By: #### L [id number] ####[facility] [place] [address] LAB AP CLINICAL INFORMATION Normal [facility] Comment on above: Order Comment: Pre-o p diagnosis:Calculus of gallbladder without cholecystitis without obstruction [K80.20] Result Comment: Pre- op diagnosis: Calculus of gallbladder without cholecystitis without obstruction [K80.20] Performed By: #### L [id number] ####[facility] ([facility])[address] [place] [address] LAB AP GROSS DESCRIPTION A. Gallbladder. Normal [facility] Comment on above: Order Comment: Pre-o p [...] 0.1 to 0.2 cm in maximum thickness. Marine Equipment Sales Engineer sections submitted as follows: Cassette 1: Cystic duct resection margin and neck Cassette 2: Body and fundus Ankit Koroma, Pathologists' Net Lead Architect Performed By: #### L [id number] ####[facility] ([facility] [place] [address] LAB AP MICROSCOPIC DESCRIPTION Microscopic examination performed Normal [facility] Comment on above: Order Comment: Pre-o p diagnosis:Calculus of gallbladder without cholecystitis without obstruction [K80.20] Performed By: #### L [id number] ####[facility] (BEAK[facility])[address] , [place] [address] LAB AP REPORT FINAL DIAGNOSIS [facility]ARR[facility] Comment on above: Order Comment: Pre-o p diagnosis:Calculus of gallbladder without cholecystitis without obstruction [K80.20] Result Comment: Gall bladder, cholecystectomy: - Cholelithiasis and cholesterolosis. Performed By: #### L [id number] ####[facility] ([facility] [place] [address] on 08-16-2022 HP ----- ----- Attestation signed by Micaela Gupta MD at 08/16/2022 7:34 AM Attending Physician Statement I have discussed the case, including pertinent history and exam findings with Dr. Del Angel, operating room surgical technician and have personally seen the patient. I agree with the assessment, plan and orders as documented. [phone] pager [phone] phone ----- [facility] General Surgery HISTORY & PHYSICAL Chief [...] History: Diagnosis Date Anxiety Arthritis Chronic bronchitis ([facility]) Depression DVT (deep venous thrombosis) ([facility]) Gall bladder disease GERD (gastroesophageal reflux disease) [...] Component Value (more content not included)... Normal [facility] NURSNOTEon 08-16-2022 NURSNOTE Stable. Pain minimal . DC criteria met. IV dc'd and patient getting dressed. 1155 Stable for discharge. Normal [facility] NURSNOTE DC instructions revi ewed with patient and Granddaughter, allowed time for questions, copy given. Normal [facility] NURSNOTE Report rec'd and car e assumed. No assessment changes. Pain minimal. Normal [facility] NURSNOTE 0920 Recovery called. [facility] CHOLECYSTECTOMY, LAPAROSCOPIC Operative Note Date: 08/16/2022 Location: [facility] OR Name: Rhett Mejia, : 1960, Diagnosis Pre-op Diagnosis * Calculus of gallbladder without cholecystitis without obstruction [K80.20] * History of gastric bypass [Z98.84] Post-op Diagnosis * Calculus of gallbladder without cholecystitis without obstruction [K80.20] * History of gastric bypass [Z98.84] Procedures CHOLECYSTECTOMY, LAPAROSCOPIC [id number] - [place] LAPS SURG CHOLECYSTECTOMY W/CHOLANGIOGRAPHY Surgeons * Micaela Gupta - Primary * Robyn Del Angel Procedure Summary Anesthesia: General ASA: III Estimated Blood Loss: 10 mL Total IV Fluids: 1000 mL Drains: * None in log * Specimens ID Source Type Tests Collected By Collected At Frozen? Priority Lab ID A Gallbladder Tissue HISTOLOGY - TISSUE EXAM Micaela Gupta MD 08/16/22 0842 No [id number] Description: GALLBLADDER Staff: Conservation Science Teacher: eZny De La Cruz RN Scrub Person: Octavia [...] PACU - hemodynamically stable. Condition: stable Normal [facility] POCT GLUCOSE METER UNSOLICIT ED RESULTSon 08-16-2022 Glucose [Mass/Vol] 88 mg/dL Normal 70-105 [facility] Comment on above: Result Comment: epaw low Performed By: #### L [id number] #### [facility] ([facility] [address] [place] [address] POCT SARS-COV-2 PCRon 2021 POC SARS-COV-2 ANTIGEN Negative Normal Negative [facility] Comment on above: Result Comment: ID N [...] Certificate of Accreditation. Performed By: #### L [id number] ####[facility] ([facility])[address] [place] [address] Orders Onlyon 08-14-2022 Orders Only [id number] Lex Mejia rrmonica L 1960 F Date Provider Department Center 08/14/2022 [id number], HISTORICAL [facility] Medical C No family history on file Normal [facility] [id number] 08-13-2022 [id number] NPO after MN Must have a inventory associate and driver to take you home and someone to stay for 24 hours after surgery. No jewelry. Hold the meds we spoke about: NSAIDS Take the meds we spoke about w/a sip of water DOS: GAPAPENTIN, NEXIUM, INHALER, CYMBALTA Bring insurance card and ID. LABS AND COVID TO BE DONE IN [place]. Normal [facility] CBC AUTO DIFFon 08-13-2022 BASO # 0.0 103/ul Normal 0.0-0.1 [facility] Comment on above: Performed By: #### C BC #### [facility] [address] [place], [place] [address] Dr. Raul Pereira Basophils/100 WBC (Bld) 0.4 % Normal 0.2-2.0 [facility] Comment on above: Performed By: #### C BC #### [facility] [address] [address] [address] Raul Pereira EO # 0.1 103/ul Normal 0.0-0.7 [facility] Comment on above: Performed By: #### C BC #### [facility] [address] [place] [address] Dr. Raul Pereira Eosinophils/100 WBC (Bld) 1.2 % Normal 0.9-7.0 [facility] Comment on above: Performed By: #### C BC #### [facility] [address] [place] [address] Dr. Raul Pereira Erythrocyte distribution width (RBC) [Ratio] 18.6 % Critically high 11.0-15.0 [facility] Comment on above: Performed By: #### C BC #### [facility] [address] [place] [address] Dr. Raul Pereira Hematocrit (Bld) [Volume fraction] 39.1 % Normal 36.0-48.0 [facility] Comment on above: Performed By: #### C BC #### [facility] [address] [place] [address] Dr. Raul Pereira Hemoglobin (Bld) [Mass/Vol] 12.5 g/dL Normal 12.0-16.0 [facility] Comment on above: Performed By: #### C BC #### [facility] [address] [place] [address] Dr. Raul Pereira IG # 0.03 10e3/ul Normal 0.00-0.03 [facility] Comment on above: Performed By: #### C BC #### [facility] [address] [place] [address] Dr. Raul Pereira IG % 0.4 % Normal 0.0-0.5 [facility] Comment on above: Performed By: #### C BC #### [facility] [address] [place] [address] Dr. Raul Pereira LYMPH # 2.0 103/ul Normal 1.2-3.8 [facility] Comment on above: Performed By: #### C BC #### [facility] [address] [place] [address] Dr. Raul Pereira Lymphocytes/100 WBC (Bld) 27.2 % Normal 20.5-60.0 [facility] Comment on above: Performed By: #### C BC #### [facility] [address] [place] [address] Dr. Raul Pereira MANUAL DIFF REQ NO Normal [facility] Comment on above: Performed By: #### C BC #### [facility] [address] [place] [address] Dr. Raul Pereira MCH (RBC) [Entitic mass] 27.2 pg Normal 26.7-34.0 [facility] Comment on above: Performed By: #### C BC #### [facility] [address] [place] [address] Dr. Raul Pereira MCHC (RBC) [Mass/Vol] 32.0 g/dL Normal 29.9-35.2 [facility] Comment on above: Performed By: #### C BC #### [facility] [address] [place] [address] Dr. Raul Pereira MCV (RBC) [Entitic vol] 85.2 fL Normal 81.0-99.0 [facility] Comment on above: Performed By: #### C BC #### [facility] [address] [place] [address] Dr. Raul Pereira MONO # 0.7 103/ul Normal 0.3-0.8 [facility] Comment on above: Performed By: #### C BC #### [facility] [address] [place] [address] Dr. Raul Pereira Monocytes/100 WBC (Bld) 9.3 % Normal 1.7-12.0 [facility] Comment on above: Performed By: #### C BC #### [facility] [address] [place] [address] Dr. Raul Pereira NEUT # 4.4 103/ul Normal 1.4-6.5 [facility] Comment on above: Performed By: #### C BC #### [facility] [address] [address] [address] Raul Pereira Neutrophils/100 WBC (Bld) 61.5 % Normal 43.0-75.0 [facility] Comment on above: Performed By: #### C BC #### [facility] [address] [place] [address] Dr. Raul Pereira Platelet mean volume (Bld) [Entitic vol] 8.7 fL Critically low 9.5-13.5 [facility] Comment on above: Performed By: #### C BC #### [facility] [address] [place] [address] Dr. Raul Pereira PLT 387 103/ul Normal 150-450 [facility] Comment on above: Performed By: #### C BC #### [facility] [address] [place] [address] Dr. Raul Pereira RBC 4.59 106/ul Normal 4.20-5.40 [facility] Comment on above: Performed By: #### C BC #### [facility] [address] [place] [address] Dr. Raul Pereira WBC 7.2 103/ul Normal 4.0-11.0 [facility] Comment on above: Performed By: #### C BC #### [facility] [address] [place] [address] Dr. Raul Pereira Covid-19 PCR ([facility]on 07-19 SARS-CoV-2 (COVID-19) RNA IMELDA+probe Ql (Unsp spec) Not detected Normal NOT DETECTED [facility] Comment on above: Result Comment: This test is not yet approved or cleared by the [place] FDA. When there are no FDA-approved or cleared tests available, and other criteria are met, FDA can make tests available under an emergency access mechanism called an Emergency Use Authorization (EUA). The EUA for this test is supported by the Safety Supervisor of Health and Human Service's (HHS's) declaration [...] SARS-CoV-2. Performed By: #### C VDTB #### [facility] [address] [place] [address] Dr. Raul Peerira PROF CHEM 8 (BAS METB)on Anion gap [Moles/Vol] 11.5 mmol/L Normal [facility] Comment on above: Performed By: #### C BC #### [facility] [address] [place] [address] Dr. Raul Pereira Calcium [Mass/Vol] 9.5 mg/dL Normal 8.5-10.1 [facility] Comment on above: Performed By: #### C BC #### [facility] [address] [place] [address] Dr. Raul Pereira Chloride [Moles/Vol] 101 mmol/L Normal 98-107 [facility] Comment on above: Performed By: #### C BC #### [facility] [address] [place] [address] Dr. Raul Pereira CO2 [Moles/Vol] 29.6 mmol/L Normal 21.0-32.0 [facility] Comment on above: Performed By: #### C BC #### [facility] [address] [place] [address] Dr. Raul Pereira Creatinine [Mass/Vol] 0.65 mg/dL Normal 0.55-1.02 [facility] Comment on above: Performed By: #### C BC #### [facility] [address] [place] [address] Dr. Raul Pereira EGFR-AF [place]IZ[place] >60 Normal >=60 [facility] Comment on above: Performed By: #### C BC #### [facility] [address] [place] [address] Dr. Raul Pereira EGFR-NON AF [place]IZ[place] >60 Normal >=60 [facility] Comment on above: Performed By: #### C BC #### [facility] [address] [address] [address] Raul Pereira Glucose [Mass/Vol] 104 mg/dL Normal 74-106 [facility] Comment on above: Performed By: #### C BC #### [facility] [id number] Raul Pereira Potassium [Moles/Vol] 4.1 mmol/L Normal 3.5-5.1 [facility] Comment on above: Performed By: #### C BC #### [facility] [address] [address] [address] Raul Pereira Sodium [Moles/Vol] 138 mmol/L Normal 136-145 [facility] Comment on above: Performed By: #### C BC #### [facility] [address] [address] [address] Raul Pereira Urea nitrogen [Mass/Vol] 11.0 mg/dL Normal 7.0-18.0 [facility] Comment on above: Performed By: #### C BC #### [facility] [address] [address] [address] Raul Pereira Urea nitrogen/Creatinine [Mass ratio] 16.9 mg/mg Normal [facility] Comment on above: Performed By: #### C BC #### [facility] [id number] Raul Pereira Office Visiton 08-06-2022 Follow-up visit [id number] Lex Mejia L 1960 F Date Provider Department Center 08/06/2022 Nella-MICAELA GUPTA [facility] SURG Second Fl No family history on file Level of Service:[address] [place] OFFICE/OUTPATIENT ESTABLISHED LOW MDM 20-29 MIN Reason for Visit and Comments: Consult [484] - Rhett is here for a gallbladder consult. Rhett also c/o swelling in right leg with pain in calf. Normal [facility] PROTIME-INRon 08-06-2022 INR IN PPP BY COAGULATION ASSAY 0.89 Low 0.90-1.10 [facility] Comment on above: Result Comment: ACCC P [...] 1995;108:[id number]. Performed By: #### L [id number] #### [facility] ([facility]) [address] [place] [address] PROTHROMBIN TIME (PT) IN PPP BY COAGULATION ASSAY 12.1 Seconds Low 12.3-14.8 [facility] Comment on above: Performed By: #### L [id number] #### [facility] ([facility]) [address] [place] [address] CT ABD/PELVIS WO CONon 07-24 CT ABD/PELVIS [...] by: JESSICA LIPSCOMB Date: 2022-07-24 17:21 Normal [facility] HEPATOBILIARY SCAN W EFon 07-18-2022 [place] HEPATOBILIARY SCAN W EF EXAMINATION: NM HEPATOBILIARY [...] by: MEAGHAN SKINNER Date: 2022-07-18 10:22 Normal [facility] CBC AUTO DIFFon 07-13-2022 BASO # 0.0 103/ul Normal 0.0-0.1 [facility] Comment on above: Performed By: #### C BC #### [facility] [address] [address] [address] Raul Pereira Basophils/100 WBC (Bld) 0.5 % Normal 0.2-2.0 [facility] Comment on above: Performed By: #### C BC #### [facility] [address] [place] [address] Dr. Raul Pereira EO # 0.1 103/ul Normal 0.0-0.7 [facility] Comment on above: Performed By: #### C BC #### [facility] [address] [address] [address] Raul Pereira Eosinophils/100 WBC (Bld) 0.9 % Normal 0.9-7.0 [facility] Comment on above: Performed By: #### C BC #### [facility] [address] [place] [address] Dr. Raul Pereira Erythrocyte distribution width (RBC) [Ratio] 20.2 % Critically high 11.0-15.0 [facility] Comment on above: Performed By: #### C BC #### [facility] [address] [place] [address] Dr. Raul Pereira Hematocrit (Bld) [Volume fraction] 41.1 % Normal 36.0-48.0 [facility] Comment on above: Performed By: #### C BC #### [facility] [address] [place] [address] Dr. Raul Pereira Hemoglobin (Bld) [Mass/Vol] 13.2 g/dL Normal 12.0-16.0 [facility] Comment on above: Performed By: #### C BC #### [facility] [address] [place] [address] Dr. Raul Pereira IG # 0.05 10e3/ul Critically high 0.00-0.03 [facility] Comment on above: Performed By: #### C BC #### [facility] [address] [place] [address] Dr. Raul Pereira IG % 0.6 % Critically high 0.0-0.5 [facility] Comment on above: Performed By: #### C BC #### [facility] [address] [place] [address] Dr. Raul Pereira LYMPH # 1.4 103/ul Normal 1.2-3.8 [facility] Comment on above: Performed By: #### C BC #### [facility] [address] [place] [address] Dr. Raul Pereira Lymphocytes/100 WBC (Bld) 17.3 % Critically low 20.5-60.0 [facility] Comment on above: Performed By: #### C BC #### [facility] [address] [place] [address] Dr. Raul Pereira MANUAL DIFF REQ NO Normal [facility] Comment on above: Performed By: #### C BC #### [facility] [address] [place] [address] Dr. Raul Pereira MCH (RBC) [Entitic mass] 27.3 pg Normal 26.7-34.0 [facility] Comment on above: Performed By: #### C BC #### [facility] [address] [place] [address] Dr. Raul Pereira MCHC (RBC) [Mass/Vol] 32.1 g/dL Normal 29.9-35.2 [facility] Comment on above: Performed By: #### C BC #### [facility] [address] [place] [address] Dr. Raul Pereira MCV (RBC) [Entitic vol] 84.9 fL Normal 81.0-99.0 [facility] Comment on above: Performed By: #### C BC #### [facility] [address] [place] [address] Dr. Raul Pereira MONO # 0.8 103/ul Normal 0.3-0.8 [facility] Comment on above: Performed By: #### C BC #### [facility] [address] [place] [address] Dr. Raul Pereira Monocytes/100 WBC (Bld) 10.0 % Normal 1.7-12.0 [facility] Comment on above: Performed By: #### C BC #### [facility] [address] [place] [address] Dr. Raul Pereira NEUT # 5.8 103/ul Normal 1.4-6.5 [facility] Comment on above: Performed By: #### C BC #### [facility] [address] [place] [address] Dr. Raul Pereira Neutrophils/100 WBC (Bld) 70.7 % Normal 43.0-75.0 [facility] Comment on above: Performed By: #### C BC #### [facility] [address] [place] [address] Dr. Raul Pereira Platelet mean volume (Bld) [Entitic vol] 9.1 fL Critically low 9.5-13.5 [facility] Comment on above: Performed By: #### C BC #### [facility] [address] [place] [address] Dr. Raul Pereira PLT 358 103/ul Normal 150-450 [facility] Comment on above: Performed By: #### C BC #### [facility] [address] [place] [address] Dr. Raul Pereira RBC 4.84 106/ul Normal 4.20-5.40 [facility] Comment on above: Performed By: #### C BC #### [facility] [address] [place] [address] Dr. Raul Pereira WBC 8.1 103/ul Normal 4.0-11.0 [facility] Comment on above: Performed By: #### C BC #### [facility] [address] [place] [address] Dr. Raul Pereira LIPASEon 07-13-2022 Lipase [Catalytic activity/Vol] 47.0 U/L Critically low 73.0-393.0 [facility] Comment on above: Performed By: #### C BC #### [facility] [address] [place] [address] Dr. Raul Pereira PROF 14(COMP METB)on Albumin [Mass/Vol] 3.6 g/dL Normal 3.4-5.0 [facility] Comment on above: Performed By: #### C BC #### [facility] [address] [place] [address] Dr. Raul Pereira Albumin/Globulin [Mass ratio] 1.0 {ratio} Normal [facility] Comment on above: Performed By: #### C BC #### [facility] [address] [place] [address] Dr. Raul Pereira ALP [Catalytic activity/Vol] 88 U/L Normal 46-116 [facility] Comment on above: Performed By: #### C BC #### [facility] [address] [place] [address] Dr. Raul Pereira ALT [Catalytic activity/Vol] 16 U/L Normal 14-59 [facility] Comment on above: Performed By: #### C BC #### [facility] [address] [place] [address] Dr. Raul Pereira Anion gap [Moles/Vol] 13.2 mmol/L Normal [facility] Comment on above: Performed By: #### C BC #### [facility] [address] [place] [address] Dr. Raul Pereira AST [Catalytic activity/Vol] 15 U/L Normal 15-37 [facility] Comment on above: Performed By: #### C BC #### [facility] [address] [place] [address] Dr. Raul Pereira Bilirubin [Mass/Vol] 0.2 mg/dL Normal 0.2-1.0 [facility] Comment on above: Performed By: #### C BC #### [facility] [address] [place] [address] Dr. Raul Pereira Calcium [Mass/Vol] 9.5 mg/dL Normal 8.5-10.1 [facility] Comment on above: Performed By: #### C BC #### [facility] [address] [place] [address] Dr. Raul Pereira Chloride [Moles/Vol] 100 mmol/L Normal 98-107 [facility] Comment on above: Performed By: #### C BC #### [facility] [address] [place] [address] Dr. Raul Preeira CO2 [Moles/Vol] 28.0 mmol/L Normal 21.0-32.0 [facility] Comment on above: Performed By: #### C BC #### [facility] [address] [place] [address] Dr. Raul Pereira Creatinine [Mass/Vol] 0.78 mg/dL Normal 0.55-1.02 [facility] Comment on above: Performed By: #### C BC #### [facility] [address] [address] [address] Raul Pereira EGFR-AF [place]IZ[place] >60 Normal >=60 [facility] Comment on above: Performed By: #### C BC #### [facility] [address] [place] [address] Dr. Raul Pereira EGFR-NON AF [place]IZ[place] >60 Normal >=60 [facility] Comment on above: Performed By: #### C BC #### [facility] [address] [place] [address] Dr. Raul Pereira Globulin (S) [Mass/Vol] 3.6 g/dL Normal [facility] Comment on above: Performed By: #### C BC #### [facility] [address] [place] [address] Dr. Raul Pereira Glucose [Mass/Vol] 86 mg/dL Normal 74-106 [facility] Comment on above: Performed By: #### C BC #### [facility] [address] [place] [address] Dr. Raul Pereira Potassium [Moles/Vol] 4.2 mmol/L Normal 3.5-5.1 [facility] Comment on above: Performed By: #### C BC #### [facility] [address] [place] [address] Dr. Raul Pereira Protein [Mass/Vol] 7.2 g/dL Normal 6.4-8.2 [facility] Comment on above: Performed By: #### C BC #### [facility] [address] [place] [address] Dr. Raul Pereira Sodium [Moles/Vol] 137 mmol/L Normal 136-145 [facility] Comment on above: Performed By: #### C BC #### [facility] [address] [place], [place] [address] Dr. Raul Pereira Urea nitrogen [Mass/Vol] 11.0 mg/dL Normal 7.0-18.0 [facility] Comment on above: Performed By: #### C BC #### [facility] [address] [place], [place] [address] Dr. Raul Pereira Urea nitrogen/Creatinine [Mass ratio] 14.1 mg/mg Normal [facility] Comment on above: Performed By: #### C BC #### [facility] [address] [place], [place] [address] Dr. Raul Pereira US SINGLE QUAD RT [...] by: MICAH ROSAS Date: 2022-07-13 16:33 Normal [facility] Covid-19 PCR ([facility]on 06-17 SARS-CoV-2 (COVID-19) RNA IMELDA+probe Ql (Unsp spec) Not detected Normal NOT DETECTED [facility] Comment on above: Result Comment: This test is not yet approved or cleared by the [place] FDA. When there are no FDA-approved or cleared tests available, and other criteria are met, FDA can make tests available under an emergency access mechanism called an Emergency Use Authorization (EUA). The EUA for this test is supported by the [place] of Health and Human Service's (HHS's) declaration [...] consistent with SARS-CoV-2. Performed By: #### C COUNTS INCLUDE 234 BEDS AT [facility] #### [facility] [address] [place] [address] Dr. Raul Pereira Endoscopy Reporton 8 Endoscopy Report [id number]tt [facility] Surgery Date: 02/24/2018 Room #: Z0 Date of : 1960 PROCEDURE NOTEATTENDING: Xin Beasley M.D.PROCEDURE PERFORMED: EGD.MANAGER OF BUSINESS OPERATIONS: Dr. Noland.SEDATION:1. Versed 10 mg.2. Fentanyl 250 [...] 02/24/2018/09:53 Kiara/Ruddy Noland M.D.Date Trans: 02/24/2018 12:13 P/Aditya_JN:[id number] cc: Napoleon Rahman M.D. [address] [place] [address] [place] [facility] Endoscopy Report MR#: [id number] Name: Rhett Mejia Surgery Date: 02/24/2018 Room #: Z0 Date of : 1960 PROCEDURE NOTEATTENDING: Xin Beasley M.D.PROCEDURE PERFORMED: Colonoscopy and polypectomy.MANAGER OF BUSINESS OPERATIONS: Ruddy Noland M.D.SEDATION: Versed 10 mg and [...] 02/24/2018/09:57 A/Ruddy Noland M.D.Date Trans: 02/24/2018 10:12 A/mmoDN_JN:[id number] cc: Napoleon Rahman M.D. [address] [place] [address] Normal [facility] POC GLUCOSE LABon 02-24-2018 Glucose mass conc 87 mg/dL Normal 70-100 [facility] Comment on above: Performed By: #### 8 [id number] ####[facility] Vital Signs Date Time Vital Sign Value Performing Clinician Facility NEGATED: Highlighted row BMI (Body Mass Index) [facility] NEGATED: Highlighted row Body Temperature [facility] NEGATED: Highlighted row Body weight [facility] NEGATED: Highlighted row BP Diastolic [facility] NEGATED: Highlighted row BP Systolic [facility] NEGATED: Highlighted row Height [facility] NEGATED: Highlighted row Pulse (Heart Rate) [facility] NEGATED: Highlighted row Pulse Oximetry [facility] NEGATED: Highlighted row Respiratory Rate [facility] Encounters Encounter Date Encounter Type Care Provider Facility Start: 09-23-2023 ambulatory Cristian Johnson acility:[facility] Start: 09-22-2023 End: 09-23-2023 ambulatory Monica [...] abnormal findings DR NAPOLEON RAHMAN . [facility] Start: 01-31-2023 End: 02-01-2023 Encounter for [...] laboratory examination DR BETHEL LITTLE . [facility] Start: 12-13-2022 End: 12-14-[address] [...] Start: 08-27-2022 End: 08-27-2022 ambulatory MICAELA GUPTA [facility] Start: 08-16-2022 End: 08-16-2022 ambulatory MICAELA GUPTA [facility] Start: 08-15-2022 Encounter for other preprocedural examination DR MICAELA GUPTA [facility] Start: 08-15-2022 Encounter for preprocedural laboratory examination DR MICAELA GUPTA [facility] Start: 08-13-2022 End: 08-14-[address] MICAELA GUPTA Facility:[facility] Start: 08-13-2022 End: 08-14-2022 Encounter for other preprocedural examination DR MICAELA GUPTA Facility:[facility] Start: 08-06-2022 End: 08-07-2022 ambulatory [facility] Start: 08-06-2022 End: 08-06-2022 ambulatory [facility] Start: 08-06-2022 ambulatory [facility] Start: 07-24-2022 End: 07-25-[address] NAPOLEON [...] Start: 02-24-2018 End: 02-25-2018 Ambulatory XIN BEASLEY Facility:[facility] Start: 10-19-2014 End: 10-19-2014 Patient encounter procedure [facility] Start: 12-22-2013 End: 12-22-2013 Departed Referred [facility] Start: 10-12-2001 End: 10-12-2001 Patient encounter procedure [facility] Start: 09-01-2001 End: 09-01-2001 Patient encounter procedure [facility] Start: 08-26-2001 End: 08-26-2001 Patient encounter procedure [facility] Start: 03-21-1999 End: 03-28-1999 Evaluation and management of inpatient [facility] Start: 09-07-1997 End: 09-07-1997 Admission to day surgery [facility] Start: 07-21-1997 End: 07-21-1997 Emergency department patient visit [facility] Procedures Date Procedure Procedure Detail Performing Clinician Start: 02-24-2018 Colsc flx w/removal lesion by hot bx forceps XIN BEASLEY Payers Date Payer Category Payer Unknown 1960 Self-pay 1960 Self-pay [id number] 1960 Unknown [id number] 1960 Unknown [id number] 2.16.84 0.1.214007.3.579.2.593 1960 Unknown [id number] 2.16.84 0.1.047585.3.579.2.593 1959 Unknown [id number] .16.84 0.1.229900.3.579.2.593 1959 Unknown [id number] .16.84 0.1.241441.3.579.2.593 1959 Unknown [id number] 2.16.84 0.1.035575.3.579.2.593 1959 Unknown [id number] 2.16.84 0.1.019701.3.579.2.593 1959 Unknown [id number] 2.16.84 0.1.722205.3.579.2.593 1959 Unknown [id number] 2.16.84 0.1.593294.3.579.2.593 1959 Unknown [id number] 2.16.84 0.1.939605.3.579.2.593 1959 Unknown [id number] 2.16.84 0.1.994657.3.579.2.593 1959 Unknown [id number] 2.16.84 0.1.914251.3.579.2.593 1959 Unknown [id number] 2.16.84 0.1.964050.3.579.2.593 1959 Unknown [id number] 2.16.84 0.1.266741.3.579.2.593 1959 Unknown [id number] 2.16.84 0.1.373445.3.579.2.593 1959 Unknown [id number] 2.16.84 0.1.964677.3.579.2.593 1959 Unknown [id number] 2.16.84 0.1.638969.3.579.2.593 1959 Unknown [id number] 2.16.84 0.1.738696.3.579.2.593 1959 Unknown [id number] 2.16.84 0.1.192363.3.579.2.593 1959 Unknown [id number] 2.16.84 0.1.540837.3.579.2.593 1959 Unknown [id number] 2.16.84 0.1.247242.3.579.2.593 1959 Unknown [id number] 2.16.84 0.1.312848.3.579.2.593 1959 Unknown [id number] 2.16.84 0.1.716703.3.579.2.593 1959 Unknown [id number] 2.16.84 0.1.042332.3.579.2.593 1959 Unknown [id number] 2.16.84 0.1.086841.3.579.2.593 1959 Unknown [id number] 2.16.84 0.1.470443.3.579.2.593 1959 Unknown [id number] 2.16.84 0.1.938091.3.579.2.593 1959 Unknown [id number] 2.16.84 0.1.923290.3.579.2.593 1959 Unknown [id number] 2.16.84 0.1.369171.3.579.2.593 1959 Unknown [id number] 2.16.84 0.1.099076.3.579.2.593 1959 Unknown [id number] 2.16. 840.1.679205.3.579.2.196 Medicare [id number] Unknown [id number] Unknown [id number] 2.16.84 0.1.862899.3.579.2.593 Unknown [id number] 2.16.8 40.1.959808.3.579.2.531 Clinical Notes 05-15-2022 to 02-18-2023 Note Date [...] our patients to inform us about any uutj-mjl-bixilyd medications or herbal remedies/nutritional supplements/alternative remedies. 2. [...] options with their primary care provider. [facility] 01-16-2023 Note CONSULTATION CONSULTATION DATE: 01/16/2023 [...] up in the clinic post epidural. [facility] 12-04-2022 Note CONSULTATION CONSULTATION DATE: 12/04/2022 [...] in the office after the procedure. [facility] 11-15-2022 Note CONSULTATION PROCEDURE DATE: 11/15/2022 [...] the office following her RFA procedure. [facility] 11-15-2022 Note CONSULTATION CONSULTATION DATE: 11/15/2022 [...] measures such as heat and stretches. [facility] 08-29-2022 Note CONSULTATION PROCEDURE DATE: 08/29/2022 [...] pattern. Patient tolerated the procedure well. [facility] 08-29-2022 Note CONSULTATION CONSULTATION DATE: 08/29/2022 [...] up in the office post procedure. [facility] 08-29-2022 Note CONSULTATION CONSULTATION DATE: 08/29/2022 ADDENDUM: Addendum to peer plan: We will repeat radiofrequency ablation starting on the right side and subsequently moving to the left at T11, T12 and L1, L2. [facility] 08-27-2022 Note Subjective Patient ID: Rhett [...] past 36 hour(s)). No follow-ups on file. [facility] 08-16-2022 Note Patient: Rhett rousseau Procedure Summary Date: 08/16/22 Room / Location: [facility] OPERATING ROOM 01 / [facility] Operating Room Anesthesia Start: 734 Anesthesia Stop: [...] no known notable events for this encounter. [facility] 08-16-2022 Note Airway Date/Time: 08/16/2022 7:44 AM Urgency: elective Airway not difficult General Information and Staff Patient location during procedure: [place] Anesthesiologist: Cassi Velez MD Resident/SERVICE ENGINE REPAIRER/CAA: LEONARD Canales Performed: resident/SERVICE ENGINE REPAIRER/LEONARD Indications and Patient Condition Indications for airway [...] before airway management; Dentures to Circ RN [facility] 08-16-2022 Note Patient: Rhett rousseau Procedure Information Date/Time: 08/16/22 0730 Procedure: CHOLECYSTECTOMY, LAPAROSCOPIC, WITH INTRAOPERATIVE CHOLANGIOGRAM, WITH LAPAROTOMY IF INDICATED REQ ERIC OR MANDO HUERTA MAUK, WOODSON - C-ARM AVAIL STAFF REQUESTS: LENIN DE LA CRUZ Location: [facility] OPERATING ROOM 01 / [facility] Operating Room Surgeons: Micaela Gupta MD Relevant [...] Plan discussed with CAA. Additional Equipment Requests [facility] 08-06-2022 Note Subjective Patient ID: Rhett Mejia [...] past 36 hour(s)). No follow-ups on file. [facility] 08-06-2022 Note Subjective Patient ID: Rhett Mejia [...] past 36 hour(s)). No follow-ups on file. [facility] 06-12-2022 Note CONSULTATION PROCEDURE DATE: 06/12/2022 PREOPERATIVE [...] The patient tolerated the procedure well. [facility] 06-12-2022 Note CONSULTATION CONSULTATION DATE: 06/12/2022 [...] agrees to the plan of care. [facility] 05-15-2022 Note CONSULTATION CONSULTATION DATE: 05/15/2022 [...] Patient agrees with the plan of care. [facility] Signed and Approved by: RUBY RAMIREZ . 05/16/2022 13:38:00 [facility] 05-15-2022 Note CONSULTATION PROCEDURE DATE: 05/15/2022 [...] will be followed up in the office. [facility] Signed and Approved by: RUBY RAMIREZ . 05/16/2022 13:38:00 [facility] Summary Purpose Family History No Family [...] and content) DATE CREATED AUTHOR 05/07/2018 [facility] DATE CREATED AUTHOR AUTHOR'S ORGANIZ ATION 09/26/2022 [facility] DATE CREATED AUTHOR AUTHOR'S ORGANIZ ATION 03/28/2023 [facility] DATE CREATED AUTHOR AUTHOR'S ORGANIZ ATION 09/25/2023 [facility] DATE CREATED AUTHOR AUTHOR'S ORGANIZ ATION 12/10/2023 [facility] FOR RECORDS PERTAINING TO PATIENTS WHO ARE [...] BE BASED ON THE PRIMARY CLINICAL RECORDS. [facility] [employer] [facility]. provides no warranty or guarantee of the accuracy or completeness of information in this document.
--- NOTE | 2024-03-02 21:43 | XR_ITS ---
The [address] [address] Patient Name: HRETT MEJIA MRN: [id number] date: 1960 Sex: F Assigned Patient Location: ED.MAIN Current Patient Location: ER Accession/Order Number: [id number] Exam Date: 03/02/2024 21:55 Report Date: 03/02/2024 22:23 At the request of: DON GARCIA Procedure: XR chest 1V XR chest 1V 03/02/2024 8:55 PM CDT: History: chest pain Comparison: None. Technique: 1 view chest Findings: The cardiomediastinal silhouette is normal. The lungs are clear without infiltrate, effusion, or pneumothorax. The bones are intact. XR/XR chest 1V Impression: No acute cardiopulmonary process. Electronically authenticated by: CHRISTINA NORRIS Date: 03/02/2024 22:23
--- NOTE | 2024-03-02 21:43 | ECG_ITS ---
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
--- NOTE | 2024-03-02 21:44 | ED.CHESTPAI1 ---
HPI - Chest Pain General Chief Complaint: Chest Pain Stated Complaint: CHEST PAIN Time Seen by Provider: 03/02/24 21:27 Source: patient Mode of arrival: ambulance History of Present Illness HPI narrative: patient presents complaining of chest pain. States she was at the hospital earlier today for an Echo and during the procedure she developed pain of her chest. At home the pain increased. she was given ASA 324 and nitro SL x1 by [employer] personnel and the pain resolved. Currently asymptomatic. Denies past history of CAD Related Data Home Medications ?Medication ?Instructions ?Recorded ?Confirmed buprenorphine 10 mcg/hour weekly 1 patch transdermal QWEEK 05/01/23 09/22/23 transdermal patch (Butrans) calcium carbonate 600 mg-vitamin cap PO .QD 05/01/23 D3 5 mcg (200 unit) capsule (Calcium 600 + D(3)) cholecalciferol (vitamin D3) 10 10 mcg PO DAILY 05/01/23 05/06/23 mcg (400 unit) capsule cyclobenzaprine 5 mg tablet 5 mg PO TID 05/01/23 09/22/23 dextroamphetamine-amphetamine 20 20 mg PO .QD 05/01/23 09/22/23 mg tablet diclofenac sodium 1 % topical gel 4 g topical QID 05/01/23 09/22/23 diclofenac sodium 75 mg 75 mg PO .QD 05/01/23 09/22/23 tablet,delayed release duloxetine 60 mg capsule,delayed 120 mg PO DAILY 05/01/23 09/22/23 release (Cymbalta) esomeprazole magnesium 20 mg 40 mg PO DAILY 05/01/23 09/22/23 capsule,delayed release (Nexium) gabapentin 600 mg tablet 600 mg PO TID 05/01/23 09/22/23 lidocaine 5 % topical ointment 05/01/23 vitamin B complex (Complex B-100 1 tab PO DAILY 05/01/23 09/22/23 tablet,extended release) ziprasidone HCl 20 mg capsule 20 mg PO .HS 05/01/23 09/22/23 Allergies Allergy/AdvReac Type Severity Reaction Status Date / Time iodine Allergy Verified 05/01/23 09:06 latex Allergy Verified 05/01/23 09:06 soybean Allergy Verified 05/01/23 09:06 Sulfa (Sulfonamide Allergy Verified 05/01/23 09:06 Antibiotics) IV DYE Allergy Uncoded 05/01/23 09:06 Review of Systems ROS Status of ROS 10 or more systems reviewed and unremarkable except as noted in history and below [facility] Medical History (Updated 03/03/24 @ 01:33 by Delfino Bunch MD) Upper back pain ?M54.9 - Dorsalgia, unspecified (ICD-10) Back pain ?M54.9 - Dorsalgia, unspecified (ICD-10) Neck pain ?M54.2 - Cervicalgia (ICD-10) Suicidal behavior ?R45.89 - Other symptoms and signs involving emotional state (ICD-10) Panic attack ?F41.0 - Panic disorder [episodic paroxysmal anxiety] (ICD-10) Depressed ?F32.A - Depression, unspecified (ICD-10) Anxiety ?F41.9 - Anxiety disorder, unspecified (ICD-10) Hearing deficit ?H91.90 - Unspecified hearing loss, unspecified ear (ICD-10) Acid reflux ?K21.9 - Gastro-esophageal reflux disease without esophagitis (ICD-10) Left thyroid nodule ?E04.1 - Nontoxic single thyroid nodule (ICD-10) Smoker ?F17.200 - Nicotine dependence, unspecified, uncomplicated (ICD-10) Asthmatic bronchitis ?J45.909 - Unspecified asthma, uncomplicated (ICD-10) Surgical History History of cholecystectomy ?Z90.49 - Acquired absence of other specified parts of digestive tract (ICD-10) H/O discectomy ?Z98.890 - Other specified postprocedural states (ICD-10) H/O: hysterectomy ?Z90.710 - Acquired absence of both cervix and uterus (ICD-10) Gastric bypass status for obesity ?Z98.84 - Bariatric surgery status (ICD-10) Exam Constitutional Vital Signs, click to edit/add: Last Vital Signs Temp 97.6 F 03/02/24 21:26 Pulse 84 03/02/24 23:30 Resp 20 03/02/24 23:30 BP 125/63 03/03/24 00:15 Pulse Ox 95 03/03/24 00:20 O2 Del Method Room Air 03/02/24 21:46 Common normals: no apparent distress, average body habitus, oriented x3, no limitations, healthy appearing, alert and well nourished [facility] Common normals: normocephalic and head/scalp atraumatic Eye Common normals: PERRL, EOMs intact bilaterally and conjunctivae normal Chest Common normals: palpation of chest normal Respiratory Common normals: normal respiratory effort, no retractions and clear to auscultation bilaterally Cardio Common normals: regular rate, regular rhythm, S1 normal heart sound and S2 normal heart sound GI Common normals: Normal to inspection, nondistended, normoactive bowel sounds present, soft to palpation and non-tender Extremity Common normals: normal to inspection and full ROM Neuro Common normals: oriented x3, CN's II-XII intact bilaterally and moves all extremities Psych Appearance: grossly normal Course Vital Signs Vital signs: Vital Signs Temperature 97.6 F 03/02/24 21:26 Pulse Rate 74 03/02/24 21:26 Respiratory Rate 14 03/02/24 21:26 Blood Pressure 140/79 03/02/24 21:26 Pulse Oximetry 98 03/02/24 21:26 Oxygen Delivery Method Room Air 03/02/24 21:26 Temperature 97.6 F 03/02/24 21:26 Pulse Rate 84 03/02/24 23:30 Respiratory Rate 20 03/02/24 23:30 Blood Pressure 125/63 03/03/24 00:15 Pulse Oximetry 95 03/03/24 00:20 Oxygen Delivery Method Room Air 03/02/24 21:46 MDM - Chest Pain MDM Narrative Medical decision making narrative: patient presents complaining of chest pain. ongoing for several hours before she decided to come back to the hospital. States she was here for an Echo and during the procedure developed the pain. Pain continued when she got home and then increased. She contacted [facility] and was returned to the ER several hours later. Given ASA and nitro enroute. State it help to relieve the pain. Serial troponin neg. EKG neg. Patient also intoxicated. Even though she is intoxicated she is relaxed and AxOx3. cooperative . Did not want to stay in the hospital for obs but was agreeable to stay for 3hr 2nd troponin. Chest xray also neg. patient discharged home and advised to follow up with her family doctor in the next couple of days for recheck Lab Data Labs: Lab Results 03/02/24 03/03/24 Range/Units 21:52 00:55 WBC 6.1 (4.0-11.0) 10^3/uL RBC 4.66 (4.20-5.40) 10^6/uL Hgb 14.4 (12.0-16.0) g/dL Hct 43.7 (36.0-48.0) % MCV 93.8 (81.0-99.0) fL MCH 30.9 (26.7-34.0) pg MCHC 33.0 (29.9-35.2) g/dL RDW 14.1 (11.0-15.0) % Plt Count 290 (150-450) 10^3/uL MPV 8.9 L (9.5-13.5) fL Neut % (Auto) 47.1 (43.0-75.0) % Lymph % (Auto) 39.5 (20.5-60.0) % [place] % (Auto) 9.8 (1.7-12.0) % Eos % (Auto) 2.6 (0.9-7.0) % Baso % (Auto) 0.7 (0.2-2.0) % Neut # (Auto) 2.9 (1.4-6.5) 10^3/uL Lymph # (Auto) 2.4 (1.2-3.8) 10^3/uL [place] # (Auto) 0.6 (0.3-0.8) 10^3/uL Eos # (Auto) 0.2 (0.0-0.7) 10^3/uL Baso # (Auto) 0.0 (0.0-0.1) 10^3/uL Abs Immat Gran (auto) 0.02 (0.00-0.03) 10^3/uL Imm/Tot Granulo (auto) 0.3 (0.0-0.5) % Sodium 138 (136-145) mmol/L Potassium 3.9 (3.5-5.1) mmol/L Chloride 104 (98-107) mmol/L Carbon Dioxide 29.1 (21.0-32.0) mmol/L Anion Gap 8.8 BUN 10.0 (7.0-18.0) mg/dL Creatinine 0.57 (0.55-1.02) mg/dL Est GFR ( Amer) >60 (>=60) Est GFR (Non-Af Amer) >60 (>=60) BUN/Creatinine Ratio 17.5 Glucose 84 (74-106) mg/dL Calcium 9.5 (8.5-10.1) mg/dL Troponin I High Sens 6.6 7.5 (4.0-51.3) pg/mL Ethanol Quant 180 mg/dL Discharge Plan Discharge Stand Alone Forms: Portal Instructions Chief Complaint: Chest Pain Clinical Impression: Alcohol intoxication, Chest pain Patient Disposition: Home, Self-Care Prescriptions / Home Meds: No Action dextroamphetamine-amphetamine 20 mg tablet 20 mg PO .QD diclofenac sodium 75 mg tablet,delayed release (DR/EC) 75 mg PO .QD cyclobenzaprine 5 mg tablet 5 mg PO TID Rx Instructions: 1-2 PILLS TID lidocaine 5 % ointment Complex B-100 Tablet Extended Release 1 tab PO DAILY buprenorphine [Butrans] 10 mcg/hour patch weekly 1 patch transdermal QWEEK Calcium 600 + D(3) 600 mg-5 mcg (200 unit) capsule PO .QD duloxetine [Cymbalta] 60 mg capsule,delayed release(DR/EC) 120 mg PO DAILY cholecalciferol (vitamin D3) 10 mcg (400 unit) capsule 10 mcg PO DAILY esomeprazole magnesium [Nexium] 20 mg capsule,delayed release(DR/EC) 40 mg PO DAILY diclofenac sodium 1 % gel 4 g topical QID Rx Instructions: apply to single knee, ankle, foot; for foot includes sole/toes/top of foot gabapentin 600 mg tablet 600 mg PO TID ziprasidone HCl 20 mg capsule 20 mg PO .HS Rx Instructions: give with food (meal/snack) Print Language: Nepalese Instructions: Chest Pain (ED), Alcohol Intoxication (ED) Additional Instructions: follow up with Dr Rahman in the next couple of days for recheck of your chest pain complaint Referrals: Ke Rahman MD [Primary Care Provider] - 1 week
[2024-03-02 21:59] LABS: Basophils Percent Auto 0.7 % (0.2-2.0); Eosinophils Absolute Auto 0.2 10^3/uL (0.0-0.7); Eosinophils Percent Auto 2.6 % (0.9-7.0); Hematocrit 43.7 % (36.0-48.0); Hemoglobin 14.4 g/dL (12.0-16.0); Immature Granulocytes Abs Auto 0.02 10^3/uL (0.00-0.03); Immature Granulocytes Pct Auto 0.3 % (0.0-0.5); Lymphocytes Absolute Auto 2.4 10^3/uL (1.2-3.8); Lymphocytes Percent Auto 39.5 % (20.5-60.0); Mean Corpuscular Hemoglobin 30.9 pg (26.7-34.0); Mean Corpuscular Volume 93.8 fL (81.0-99.0); Mean Platelet Volume 8.9 fL (9.5-13.5); Monocytes Absolute Auto 0.6 10^3/uL (0.3-0.8); Monocytes Percent Auto 9.8 % (1.7-12.0); Neutrophils Absolute Auto 2.9 10^3/uL (1.4-6.5); Neutrophils Percent Auto 47.1 % (43.0-75.0); Platelet Count 290 10^3/uL (150-450); Red Blood Count 4.66 10^6/uL (4.20-5.40); Red Cell Distribution Width 14.1 % (11.0-15.0); White Blood Count 6.1 10^3/uL (4.0-11.0)
[2024-03-02 22:16] LABS: Anion Gap 8.8; BUN Creatinine Ratio 17.5; Calcium 9.5 mg/dL (8.5-10.1); Carbon Dioxide 29.1 mmol/L (21.0-32.0); Chloride 104 mmol/L (98-107); Estimated GFR (African America >60 (>=60); Estimated GFR (Non-African Ame >60 (>=60); Ethanol 180 mg/dL; Glucose 84 mg/dL (74-106); Potassium 3.9 mmol/L (3.5-5.1); Sodium 138 mmol/L (136-145); Troponin I High Sensitivity 6.6 pg/mL (4.0-51.3)
--- NOTE | 2024-03-02 22:25 | PC.NURSE ---
Pt. called out reporting left sided chest pain. Repeat EKG obtained at this time. Dr. Bunch made aware.
--- NOTE | 2024-03-02 22:31 | ECG_ITS ---
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
[2024-03-03] VITALS (14 sets, daily range): BP systolic 96–125; BP diastolic 54–77; O2SAT 92–96
[2024-03-03 01:25] LABS: Troponin I High Sensitivity 7.5 pg/mL (4.0-51.3)
== END 2024-03-03 01:44 | disposition home or self-care (01) ==
PROVIDERS: Emergency Provider Internal Medicine; PCP Family Medicine
DX: R07.9 Chest pain, unspecified (principal); F10.129 Alcohol abuse with intoxication, unspecified; Y90.6 Blood alcohol level of 120-199 mg/100 ml; I11.9 Hypertensive heart disease without heart failure; I07.1 Rheumatic tricuspid insufficiency; Z79.899 Other long term (current) drug therapy; F32.A Depression, unspecified; F41.9 Anxiety disorder, unspecified; H91.90 Unspecified hearing loss, unspecified ear; K21.9 Gastro-esophageal reflux disease without esophagitis; F17.210 Nicotine dependence, cigarettes, uncomplicated; Z90.49 Acquired absence of other specified parts of digestive tract; Z98.890 Other specified postprocedural states; Z98.84 Bariatric surgery status
CPT/HCPCS: 36415; 71045; 80048; 80320; 84484; 85025; 93005; 93306; 99285

== ENCOUNTER 2024-04-02 11:21 | Outpatient (RCR) | payer MEDICARE, OTHER, SELFPAY ==
--- OUTSIDE RECORDS SUMMARY | 2024-04-02 08:21 | XMS_ITS | CCD ---
Author Organization [facility] Care Team Providers Care Store Standards Associate Name Role Phone NAWRAS, ALI T Unavailable Unavailable NAWRAS, ALI T Unavailable Unavailable HOY, NAPOLEON Unavailable Unavailable HOY, NAPOLEON Unavailable Unavailable DE Unavailable Unavailable NAWRAS, ALI T Unavailable Unavailable [...] Unavailable HOY ., DR BENDER Attending Unavailable [place], DR MEAGHAN [employer] Unavailable HOY ., [...] Unavailable HOY ., DR BENDER Attending Unavailable [place], DR MEAGHAN [employer] Unavailable RAMIREZ ., [...] Propensity to adverse reactions (disorder) 1 [facility] Rep[facility] (2 sources) corn extract; Translations: [CORN] Drug Allergy 1 [facility] (6 sources) iodine; Translations: [IODINE] Drug Allergy 9 Edema [facility]ository (6 sources) Latex; Translations: [LATEX] Drug allergy (disorder) 9 Anaphylaxis [facility] (1 source) loratadine Drug Allergy 1 [facility] (2 sources) loratadine; Translations: [LORATADINE] Drug Allergy 3 [facility] (1 source) montelukast Drug Allergy 1 [facility] (3 sources) papaveretum; Translations: [SOYBEAN] Drug Allergy 1 [facility] (2 sources) Penicillins; Translations: [PENICILLINS] Drug allergy (disorder) 1 [facility] (1 source) povidone-iodine Drug Allergy 9 [facility] (6 sources) propofol; Translations: [PROPOFOL] Drug Allergy 2 Anaphylaxis [facility] Repository (2 sources) wheat preparation; Translations: [WHEAT] Drug Allergy 2 [facility] (5 sources) Iodinated Contrast Media; Translations: [IODINATED CONTRAST MEDIA] Allergy to Substance 12-19-201 4 Anaphylaxis [facility] (1 source) montelukast; Translations: [MONTELUKAST] Drug Allergy 4 [facility] (1 source) oxybutynin; Translations: [DITROPAN] Drug Allergy 2 [facility] (1 source) Povidone-Iodine; Translations: [POVIDONE-IODINE] Drug Allergy 4 [facility] (1 source) Soy protein; Translations: [SOY] Propensity to adverse reactions to drug (disorder) 2 [facility] (1 source) Iodine (And Iodine Containting Drugs) Drug allergy (disorder) 4 [facility] Repository (1 source) Penicillin Drug Allergy [facility] Repository (1 source) Sulfonamides (Antibiotic) Drug allergy (disorder) 2 [facility] Repository (1 source) Iodine Drug Allergy 8 [facility] Repository (1 source) Latex Drug allergy (disorder) 8 [facility] Repository (1 source) Propofol Drug Allergy 8 [facility] Repository Medications Completed/Discontinued Medications Medication Drug [...] 07-15-2022 Episodic Other aftercare (1 source) Other terminal gauger (current) drug therapy; Translations: [OTH PRODUCT OPERATIONS ASSOCIATE CURRENT DRUG THERAPY] Onset: 07-15-2022 Episodic Other [...] KRYSTIAN ALFARO Date: 2023-03-05 13:50 Normal [facility] CBC AUTO DIFFon 02-20-2023 BASO # 0.1 103/ul Normal 0.0-0.1 [facility] Comment on above: Performed By: #### C BC #### [facility] [address] [place] [address] Dr. Raul Pereira Basophils/100 WBC (Bld) 0.6 % Normal 0.2-2.0 [facility] Comment on above: Performed By: #### C BC #### [facility] [address] [place] [address] Dr. Raul Pereira EO # 0.2 103/ul Normal 0.0-0.7 [facility] Comment on above: Performed By: #### C BC #### [facility] [address] [place] [address] Dr. Raul Pereira Eosinophils/100 WBC (Bld) 2.3 % Normal 0.9-7.0 [facility] Comment on above: Performed By: #### C BC #### [facility] [address] [place] [address] Dr. Raul Pereira Hematocrit (Bld) [Volume fraction] 39.5 % Normal 36.0-48.0 [facility] Comment on above: Performed By: #### C BC #### [facility] [address] [place] [address] Dr. Raul Pereira Hemoglobin (Bld) [Mass/Vol] 12.3 g/dL Normal 12.0-16.0 [facility] Comment on above: Performed By: #### C BC #### [facility] [address] [place] [address] Dr. Raul Pereira IG # 0.03 10e3/ul Normal 0.00-0.03 [facility] Comment on above: Performed By: #### C BC #### [facility] [address] [place] [address] Dr. Raul Pereira IG % 0.4 % Normal 0.0-0.5 [facility] Comment on above: Performed By: #### C BC #### [facility] [address] [place] [address] Dr. Raul Pereira LYMPH # 2.1 103/ul Normal 1.2-3.8 [facility] Comment on above: Performed By: #### C BC #### [facility] [address] [place] [address] Dr. Raul Pereira Lymphocytes/100 WBC (Bld) 24.8 % Normal 20.5-60.0 [facility] Comment on above: Performed By: #### C BC #### [facility] [address] [place] [address] Dr. Raul Pereira MANUAL DIFF REQ NO Normal [facility] Comment on above: Performed By: #### C BC #### [facility] [address] [place] [address] Dr. Raul Pereira MCH (RBC) [Entitic mass] 26.3 pg Critically low 26.7-34.0 [facility] Comment on above: Performed By: #### C BC #### [facility] [address] [place] [address] Dr. Raul Pereira MCHC (RBC) [Mass/Vol] 31.1 g/dL Normal 29.9-35.2 [facility] Comment on above: Performed By: #### C BC #### [facility] [address] [place] [address] Dr. Raul Pereira MCV (RBC) [Entitic vol] 84.4 fL Normal 81.0-99.0 [facility] Comment on above: Performed By: #### C BC #### [facility] [address] [place] [address] Dr. Raul Pereira MONO # 1.0 103/ul Critically high 0.3-0.8 [facility] Comment on above: Performed By: #### C BC #### [facility] [address] [place] [address] Dr. Raul Pereira Monocytes/100 WBC (Bld) 11.8 % Normal 1.7-12.0 [facility] Comment on above: Performed By: #### C BC #### [facility] [address] [place] [address] Dr. Raul Pereira NEUT # 5.0 103/ul Normal 1.4-6.5 [facility] Comment on above: Performed By: #### C BC #### [facility] [address] [place] [address] Dr. Raul Pereira Neutrophils/100 WBC (Bld) 60.1 % Normal 43.0-75.0 [facility] Comment on above: Performed By: #### C BC #### [facility] [address] [place] [address] Dr. Raul Pereira Platelet mean volume (Bld) [Entitic vol] 8.8 fL Critically low 9.5-13.5 [facility] Comment on above: Performed By: #### C BC #### [facility] [address] [place] [address] Dr. Raul Pereira PLT 418 103/ul Normal 150-450 [facility] Comment on above: Performed By: #### C BC #### [facility] [address] [place] [address] Dr. Raul Pereira RBC 4.68 106/ul Normal 4.20-5.40 [facility] Comment on above: Performed By: #### C BC #### [facility] [address] [place] [address] Dr. Raul Pereira WBC 8.3 103/ul Normal 4.0-11.0 [facility] Comment on above: Performed By: #### C BC #### [facility] [address] [place] [address] Dr. Raul Pereira FERRITINon 02-20-2023 Ferritin [Mass/Vol] 15.0 ng/mL Normal 8.0-252.0 [facility] Comment on above: Performed By: #### C BC #### [facility] [address] [place] [address] Dr. Raul Pereira XR CSPINE 2_3 VIEWSon [...] by: JESSICA LIPSCOMB Date: 2023-02-19 06:42 Normal [facility] CT LUNG CANCER SCREENINGon 0 02-13-2023 CT [...] by: MEAGHAN SKINNER Date: 2023-02-13 11:02 Normal [facility] ECHOCARDIO M/2D COMPLETEon 0 3-30-2023 ECHOCARDIO M/2D COMPLETE Patient: RHETT MEJIA Exam Date: 02/13/2023 : 1960 Gender:F Ordering : DR NAPOLEON RAHMAN . Admission #: [id number] Family : Order #: [id number] CLICK HERE TO VIEW EXAM ECHOCARDIOGRAM REPORT [...] M.D. on 02/13/2023 at 18:54 Normal [facility] CREATININEon 02-12-2023 Creatinine [Mass/Vol] 0.76 mg/dL Normal 0.55-1.02 [facility] Comment on above: Performed By: #### C BC #### [facility] [address] [address] [address] Raul Pereira EGFR-AF FRENCH >60 Normal >=60 [facility] Comment on above: Performed By: #### C BC #### [facility] [address] [address] [address] Raul Pereira EGFR-NON AF FRENCH >60 Normal >=60 [facility] Comment on above: Performed By: #### C BC #### [facility] [address] [place] [address] Dr. Raul Pereira MRI BRAIN WO W [...] by: JESSICA LIPSCOMB Date: 2023-02-12 12:37 Normal [facility] US CAROTID ART BILon 02-12-2 023 US [...] JESSICA LIPSCOMB Date: 2023-02-12 14:03 Normal [facility] COMPLIANCE DRUG SCREENon PDF . Normal [facility] Comment on above: Performed By: #### C BC #### [facility] [address] [place] [address] Dr. Raul Pereira Summary FINAL Normal [facility] Comment on above: Result Comment: == [...] == Performed By: #### C BC #### [facility] [address] [place] [address] Dr. Raul Pereira CULTURE URINEon 02-02-2023 CULTURE [...] Trimethoprim/Sulfamethoxa zole <=20 S F Normal [facility] Comment on above: Performed By: #### U RCX #### [facility] [address] [place] [address] Dr. Raul Pereira AMMONIAon 01-31-2023 Ammonia (P) [Moles/Vol] 13 umol/L Normal 11-32 [facility] Comment on above: Performed By: #### A MM ####[facility] [address] [address]Dr. Raul Pereira CBC AUTO DIFFon 01-31-2023 BASO # 0.1 103/ul Normal 0.0-0.1 [facility] Comment on above: Performed By: #### C BC #### [facility] [address] [place] [address] Dr. Raul Pereira Basophils/100 WBC (Bld) 0.6 % Normal 0.2-2.0 [facility] Comment on above: Performed By: #### C BC #### [facility] [address] [place] [address] Dr. Raul Pereira EO # 0.1 103/ul Normal 0.0-0.7 [facility] Comment on above: Performed By: #### C BC #### [facility] [address] [place] [address] Dr. Raul Pereira Eosinophils/100 WBC (Bld) 1.7 % Normal 0.9-7.0 [facility] Comment on above: Performed By: #### C BC #### [facility] [address] [place] [address] Dr. Raul Pereira Erythrocyte distribution width (RBC) [Ratio] 25.9 % Critically high 11.0-15.0 [facility] Comment on above: Result Comment: 2+ a niso Performed By: #### C BC #### [facility] [address] [place] [address] Dr. Raul Pereira Hematocrit (Bld) [Volume fraction] 42.4 % Normal 36.0-48.0 [facility] Comment on above: Performed By: #### C BC #### [facility] [address] [place] [address] Dr. Raul Pereira Hemoglobin (Bld) [Mass/Vol] 13.1 g/dL Normal 12.0-16.0 [facility] Comment on above: Performed By: #### C BC #### [facility] [address] [place] [address] Dr. Raul Pereira IG # 0.02 10e3/ul Normal 0.00-0.03 [facility] Comment on above: Performed By: #### C BC #### [facility] [address] [place] [address] Dr. Raul Pereira IG % 0.2 % Normal 0.0-0.5 [facility] Comment on above: Performed By: #### C BC #### [facility] [address] [place] [address] Dr. Raul Pereira LYMPH # 2.0 103/ul Normal 1.2-3.8 [facility] Comment on above: Performed By: #### C BC #### [facility] [address] [place] [address] Dr. Raul Pereira Lymphocytes/100 WBC (Bld) 24.8 % Normal 20.5-60.0 [facility] Comment on above: Performed By: #### C BC #### [facility] [address] [place] [address] Dr. Raul Pereira MANUAL DIFF REQ NO Normal [facility] Comment on above: Performed By: #### C BC #### [facility] [address] [place] [address] Dr. Raul Pereira MCH (RBC) [Entitic mass] 25.3 pg Critically low 26.7-34.0 [facility] Comment on above: Performed By: #### C BC #### [facility] [address] [place] [address] Dr. Raul Pereira MCHC (RBC) [Mass/Vol] 30.9 g/dL Normal 29.9-35.2 [facility] Comment on above: Performed By: #### C BC #### [facility] [address] [place] [address] Dr. Raul Pereira MCV (RBC) [Entitic vol] 82.0 fL Normal 81.0-99.0 [facility] Comment on above: Performed By: #### C BC #### [facility] [address] [place] [address] Dr. Raul Pereira MONO # 0.7 103/ul Normal 0.3-0.8 [facility] Comment on above: Performed By: #### C BC #### [facility] [address] [place] [address] Dr. Raul Pereira Monocytes/100 WBC (Bld) 8.8 % Normal 1.7-12.0 [facility] Comment on above: Performed By: #### C BC #### [facility] [address] [address] [address] Raul Pereira NEUT # 5.2 103/ul Normal 1.4-6.5 [facility] Comment on above: Performed By: #### C BC #### [facility] [address] [address] [address] Raul Pereira Neutrophils/100 WBC (Bld) 63.9 % Normal 43.0-75.0 [facility] Comment on above: Performed By: #### C BC #### [facility] [address] [address] [address] Raul Pereira Platelet mean volume (Bld) [Entitic vol] 9.2 fL Critically low 9.5-13.5 [facility] Comment on above: Performed By: #### C BC #### [facility] [address] [address] [address] Raul Pereira PLT 334 103/ul Normal 150-450 [facility] Comment on above: Performed By: #### C BC #### [facility] [address] [address] [address] Raul Pereira RBC 5.17 106/ul Normal 4.20-5.40 [facility] Comment on above: Performed By: #### C BC #### [facility] [address] [address] [address] Raul Pereira WBC 8.2 103/ul Normal 4.0-11.0 [facility] Comment on above: Performed By: #### C BC #### [facility] [address] [address] [address] Raul Pereira SARA - LIPID PROFILEon 2022 CHOL-HDL RATIO NORM SEE BELOW Normal [facility] Comment on above: Result Comment: 3.3 - 4.4 LOW RISK 4.4 - 7.1 AVERAGE RISK 7.1 - 11.0 MODERATE RISK >11.0 HIGH RISK Performed By: #### D ATLIPI ####[facility] [address] [address]Dr. Raul Pereira Cholesterol [Mass/Vol] 178 mg/dL Normal <=200 [facility] Comment on above: Performed By: #### D ATLIPI ####[facility] [address] [id number]. Raul Pereira Cholesterol in HDL [Mass/Vol] 73 mg/dL Critically high 40-60 [facility] Comment on above: Performed By: #### D ATLIPI ####[facility] [address] [id number]. Raul Pereira Cholesterol in LDL [Mass/Vol] 72.0 mg/dL Normal [facility] Comment on above: Performed By: #### D ATLIPI ####[facility] [address] [address]Dr. Raul Randall Cholesterol.total/C holesterol in HDL [Mass ratio] 2.4 {ratio} Normal [facility] Comment on above: Performed By: #### D ATLIPI ####[facility] [address] [address]Dr. Raul Pereira HDL NORMAL > or = 60 mg/dl - LO W CARDIOVASCULAR RISK <40 mg/dl - HIGH CARDIOVASCULAR RISK Normal [facility] Comment on above: Performed By: #### D ATLIPI ####[facility] [address] [address]Dr. Raul Pereira LDL CALC NORMAL SEE BELOW Normal [facility] Comment on above: Result Comment: <100 mg/dl OPTIMAL 100 - 129 mg/dl NEAR OR ABOVE OPTIMAL 130 - 159 mg/dl BORDERLINE HIGH 160 - 189 mg/dl HIGH >190 mg/dl VERY HIGH Performed By: #### D ATLIPI ####[facility] [address] [address]Dr. Raul Randall Triglyceride [Mass/Vol] 165 mg/dL Critically high <=150 [facility] Comment on above: Performed By: #### D ATLIPI ####[facility] [address] [address]Dr. Aranzapetr Randall VLDL CALC 33.0 mg/dL Normal [facility] Comment on above: Performed By: #### D ATLIPI ####[facility] [address] [address]Dr. Raul Pereira DRUG SCREEN RAPID (URINE)on 01-31-2023 AMP Positive Abnormal NEGATIVE [facility] Comment on above: Performed By: #### C BC #### [facility] [address] [address] [address] Raul Pereira BAR Negative Normal NEGATIVE [facility] Comment on above: Performed By: #### C BC #### [facility] [address] [address] [address] Raul Pereira BUP Positive Abnormal NEGATIVE [facility] Comment on above: Performed By: #### C BC #### [facility] [address] [address] [address] Raul Pereira BZO Negative Normal NEGATIVE [facility] Comment on above: Performed By: #### C BC #### [facility] [address] [address] [address] Raul Pereira RADHA Negative Normal NEGATIVE [facility] Comment on above: Performed By: #### C BC #### [facility] [address] [address] [address] Raul Pereira CUT-OFFS SEE BELOW Normal [facility] Comment on above: Result Comment: AMP [...] ng/mL Performed By: #### C BC #### [facility] [address] [address] [address] Raul Pereira DRUG CUT HEADER DRUG CLASS TEST SYST EM CUT-OFF CONCENTRATIONS ARE FOLLOWS: Normal [facility] Comment on above: Performed By: #### C BC #### [facility] [address] [address] [address] Raul Pereira mAMP Negative Normal NEGATIVE [facility] Comment on above: Performed By: #### C BC #### [facility] [address] [address] [address] Raul Pereira MTD Negative Normal NEGATIVE [facility] Comment on above: Performed By: #### C BC #### [facility] [address] [place] [address] Dr. Raul Pereira OPI Negative Normal NEGATIVE [facility] Comment on above: Performed By: #### C BC #### [facility] [address] [place] [address] Dr. Raul Pereira OXY Negative Normal NEGATIVE [facility] Comment on above: Performed By: #### C BC #### [facility] [address] [place] [address] Dr. Raul Pereira PCP Negative Normal NEGATIVE [facility] Comment on above: Performed By: #### C BC #### [facility] [address] [address] [address] Raul Pereira PPX Negative Normal NEGATIVE [facility] Comment on above: Performed By: #### C BC #### [facility] [address] [place] [address] Dr. Raul Pereira TCA Positive Abnormal NEGATIVE [facility] Comment on above: Performed By: #### C BC #### [facility] [address] [place] [address] Dr. Raul Pereira THC Negative Normal NEGATIVE [facility] Comment on above: Performed By: #### C BC #### [facility] [address] [place] [address] Dr. Raul Pereira FREE THYROXINE INDEX T7on FTI 2.89 Normal 1.30-4.50 [facility] Comment on above: Performed By: #### C VDTBH #### [facility] [address] [place] [address] Dr. Raul Pereira T3U 39.0 % Normal 30.0-39.0 [facility] Comment on above: Performed By: #### C VDTBH #### [facility] [address] [address] [address] Raul Pereira T4 [Mass/Vol] 7.40 ug/dL Normal 4.80-13.90 [facility] Comment on above: Performed By: #### C VDTBH #### [facility] [address] [address] [address] Raul Pereira GLYCOHEMOGLOBIN A1Con 2022 ADA RECOMMENDATION SEE BELOW Normal [facility] Comment on above: Result Comment: ADA RECOMMENDED LIMIT 4.0 - 6.0 ADA THERAPEUTIC TARGET < 7.0 ACTION SUGGESTED > 7.0 Performed By: #### D ATA1C ####[facility] [address] [place], [place] [id number]. Raul Pereira Glucose [Mass/Vol] 108 mg/dL Normal [facility] Comment on above: Performed By: #### D ATA1C ####[facility] [address] [id number]. Raul Pereira HbA1c (Bld) [Mass fraction] 5.4 % Normal 4.5-6.2 [facility] Comment on above: Performed By: #### D ATA1C ####[facility] [address] [place], [place] [address]OpDr. Raul Pereira IRONon 01-31-2023 Iron [Mass/Vol] 225.0 ug/dL Critically high 50.0-170.0 [facility] Comment on above: Performed By: #### C VDTBH #### [facility] [address] [address] [address] Raul Pereira PROF 14(COMP METB)on 023 Albumin [Mass/Vol] 3.8 g/dL Normal 3.4-5.0 [facility] Comment on above: Performed By: #### C VDTBH #### [facility] [address] [address] [address] Raul Pereira Albumin/Globulin [Mass ratio] 1.2 {ratio} Normal [facility] Comment on above: Performed By: #### C VDTBH #### [facility] [address] [address] [address] Raul Pereira ALP [Catalytic activity/Vol] 77 U/L Normal 46-116 [facility] Comment on above: Performed By: #### C VDTBH #### [facility] [address] [address] [address] Raul Pereira ALT [Catalytic activity/Vol] 19 U/L Normal 14-59 [facility] Comment on above: Performed By: #### C VDTBH #### [facility] [address] [address] [address] Raul Pereira Anion gap [Moles/Vol] 12.9 mmol/L Normal [facility] Comment on above: Performed By: #### C VDTBH #### [facility] [address] [address] [address] Raul Pereira AST [Catalytic activity/Vol] 17 U/L Normal 15-37 [facility] Comment on above: Performed By: #### C VDTBH #### [facility] [address] [address] [address] Raul Pereira Bilirubin [Mass/Vol] 0.3 mg/dL Normal 0.2-1.0 [facility] Comment on above: Performed By: #### C VDTBH #### [facility] [address] [address] [address] Raul Pereira Calcium [Mass/Vol] 8.9 mg/dL Normal 8.5-10.1 [facility] Comment on above: Performed By: #### C VDTBH #### [facility] [address] [address] [address] Raul Pereira Chloride [Moles/Vol] 101 mmol/L Normal 98-107 [facility] Comment on above: Performed By: #### C VDTBH #### [facility] [address] [address] [address] Raul Pereira CO2 [Moles/Vol] 28.5 mmol/L Normal 21.0-32.0 [facility] Comment on above: Performed By: #### C VDTBH #### [facility] [address] [address] [address] Raul Pereira Creatinine [Mass/Vol] 0.59 mg/dL Normal 0.55-1.02 [facility] Comment on above: Performed By: #### C VDTBH #### [facility] [address] [address] [address] Raul Pereira EGFR-AF FRENCH >60 Normal >=60 [facility] Comment on above: Performed By: #### C VDTBH #### [facility] [address] [address] [address] Raul Pereira EGFR-NON AF FRENCH >60 Normal >=60 [facility] Comment on above: Performed By: #### C VDTBH #### [facility] [address] [place] [address] Dr. Raul Pereira Globulin (S) [Mass/Vol] 3.1 g/dL Normal [facility] Comment on above: Performed By: #### C VDTBH #### [facility] [address] [address] [address] Raul Pereira Glucose [Mass/Vol] 84 mg/dL Normal 74-106 [facility] Comment on above: Performed By: #### C VDTBH #### [facility] [address] [address] [address] Raul Pereira Potassium [Moles/Vol] 4.4 mmol/L Normal 3.5-5.1 [facility] Comment on above: Performed By: #### C VDTBH #### [facility] [address] [address] [address] Raul Pereira Protein [Mass/Vol] 6.9 g/dL Normal 6.4-8.2 [facility] Comment on above: Performed By: #### C VDTBH #### [facility] [address] [address] [address] Raul Pereira Sodium [Moles/Vol] 138 mmol/L Normal 136-145 [facility] Comment on above: Performed By: #### C VDTBH #### [facility] [address] [place] [address] Dr. Raul Pereira Urea nitrogen [Mass/Vol] 11.0 mg/dL Normal 7.0-18.0 [facility] Comment on above: Performed By: #### C VDTBH #### [facility] [address] [place] [address] Dr. Raul Pereira Urea nitrogen/Creatinine [Mass ratio] 18.6 mg/mg Normal [facility] Comment on above: Performed By: #### C VDTBH #### [facility] [address] [place] [address] Dr. Raul Pereira TSHon 01-31-2023 TSH 2.354 uIU/mL Normal 0.358-3.740 [facility] Comment on above: Performed By: #### C VDTBH #### [facility] [address] [place] [address] Dr. Raul Pereira UA RANDOM W/MICROSCOPICon BACTERIA NONE SEEN Normal NONE SEEN [facility] Comment on above: Performed By: #### C BC #### [facility] [address] [place] [address] Dr. Raul Pereira Bilirubin Ql (U) Negative Normal NEGATIVE [facility] Comment on above: Performed By: #### C BC #### [facility] [address] [place] [address] Dr. Raul Pereira CAST NONE SEEN Normal NONE SEEN [facility] Comment on above: Performed By: #### C BC #### [facility] [address] [place] [address] Dr. Raul Pereira Clarity (U) CLEAR Normal CLEAR [facility] Comment on above: Performed By: #### C BC #### [facility] [address] [place] [address] Dr. Raul Pereira Color (U) YELLOW Normal YELLOW [facility] Comment on above: Performed By: #### C BC #### [facility] [address] [place] [address] Dr. Raul Pereira Crystals LM Nom (Urine sed) NONE SEEN Normal NONE SEEN [facility] Comment on above: Performed By: #### C BC #### [facility] [address] [address] [address] Raul Pereira Epithelial cells LM Ql (Urine sed) NONE SEEN Normal NONE SEEN /RARE [facility] Comment on above: Performed By: #### C BC #### [facility] [address] [place] [address] Dr. Raul Pereira Glucose Ql (U) Negative Normal NEGATIVE [facility] Comment on above: Performed By: #### C BC #### [facility] [address] [address] [address] Raul Pereira Hemoglobin Ql (U) Negative Normal NEGATIVE [facility] Comment on above: Performed By: #### C BC #### [facility] [address] [place] [address] Dr. Raul Pereira Ketones Ql (U) Negative Normal NEGATIVE [facility] Comment on above: Performed By: #### C BC #### [facility] [address] [place] [address] Dr. Raul Pereira LEUKOCYTES Negative Normal NEGATIVE [facility] Comment on above: Performed By: #### C BC #### [facility] [address] [place] [address] Dr. Raul Pereira MUCOUS NONE SEEN Normal NONE SEEN [facility] Comment on above: Performed By: #### C BC #### [facility] [address] [place] [address] Dr. Raul Pereira Nitrite Ql (U) Negative Normal NEGATIVE [facility] Comment on above: Performed By: #### C BC #### [facility] [address] [place] [address] Dr. Raul Pereira pH (U) 5.5 [pH] Normal 5-9 [facility] Comment on above: Performed By: #### C BC #### [facility] [address] [place] [address] Dr. Raul Pereira RBC NONE SEEN Abnormal 0-2 [facility] Comment on above: Performed By: #### C BC #### [facility] [address] [place] [address] Dr. Raul Pereira SPEC GRAVITY 1.030 Abnormal 1.005-<=1.02 5 [facility] Comment on above: Performed By: #### C BC #### [facility] [address] [place] [address] Dr. Raul Pereira UA PROTEIN Negative Normal NEGATIVE/ TRACE [facility] Comment on above: Performed By: #### C BC #### [facility] [address] [place] [address] Dr. Raul Pereira Urobilinogen Qn (U) 0.2 {Farrukh'U}/dL Normal 0.2 - 1. 0 [facility] Comment on above: Performed By: #### C BC #### [facility] [address] [place] [address] Dr. Raul Pereira WBC NONE SEEN Normal NONE SEEN [facility] Comment on above: Performed By: #### C BC #### [facility] [address] [place] [address] Dr. Raul Pereira VITAMIN D 25 OHon 01-31-2023 VIT D 25-OH 40.8 ng/mL Normal [facility] Comment on above: Performed By: #### C VDTBH #### [facility] [address] [place] [address] Dr. Raul ePreira VIT D RANGES SEE BELOW Normal [facility] Comment on above: Result Comment: <20 ng/mL Vit D deficient 20 - <30 ng/mL Vit D insufficient 30 - 100 ng/mL Vit D sufficient >100 ng/mL Potential Toxicity Performed By: #### C VDTBH #### [facility] [address] [place] [address] Dr. Raul Pereira VC VENOUS REFLUX ALEXUS LMTon 0 01-30-2023 VC VENOUS REFLUX ALEXUS LMT Patient: RHETT MEJIA Exam Date: 01/30/2023 : 1960 Gender:F Ordering : DR NAPOLEON RAHMAN . Admission #: [id number] Family : Order #: [id number] CLICK HERE TO VIEW EXAM RADIOLOGY REPORT [...] thrombus. Compressibility: Normal. Flow: Deep venous reflux. Curator Of Collections:Mid/medial lower leg 4.3 mm with 0.8s reflux. [...] great saphenous vein along with dilated, incompetent production manager veins and numerous branch saphenous varicosities. 2. 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 Proximal closer with endovenous laser ablation may be beneficial followed by treatment with microfoam chemical ablation. Incompetent lower leg production manager vein which may contribute to patient's reflux; laser ablation is recommended. Dilated, incompetent branch saphenous varicosities which would benefit from microfoam chemical ablation. 3. Consultation for endovenous ablation is recommended. Dictated by: Jessica Lipscomb M.D. on 01/31/2023 at 09:46 Approved by: Jessica Lipscomb M.D. on 01/31/2023 at 09:51 Normal [facility] CBC AUTO DIFFon 01-13-2023 BASO # 0.0 103/ul Normal 0.0-0.1 [facility] Comment on above: Performed By: #### C BC #### [facility] [address] [address] [address] Raul Pereira Basophils/100 WBC (Bld) 0.5 % Normal 0.2-2.0 [facility] Comment on above: Performed By: #### C BC #### [facility] [address] [address] [address] Raul Pereira EO # 0.1 103/ul Normal 0.0-0.7 [facility] Comment on above: Performed By: #### C BC #### [facility] [address] [place] [address] Dr. Raul Pereira Eosinophils/100 WBC (Bld) 1.7 % Normal 0.9-7.0 [facility] Comment on above: Performed By: #### C BC #### [facility] [address] [place] [address] Dr. Raul Pereira Erythrocyte distribution width (RBC) [Ratio] 18.4 % Critically high 11.0-15.0 [facility] Comment on above: Performed By: #### C BC #### [facility] [address] [place] [address] Dr. Raul Pereira Hematocrit (Bld) [Volume fraction] 33.1 % Critically low 36.0-48.0 [facility] Comment on above: Performed By: #### C BC #### [facility] [address] [place] [address] Dr. Raul Pereira Hemoglobin (Bld) [Mass/Vol] 10.4 g/dL Critically low 12.0-16.0 [facility] Comment on above: Performed By: #### C BC #### [facility] [address] [place] [address] Dr. Raul Pereira IG # 0.03 10e3/ul Normal 0.00-0.03 [facility] Comment on above: Performed By: #### C BC #### [facility] [address] [place] [address] Dr. Raul Pereira IG % 0.4 % Normal 0.0-0.5 [facility] Comment on above: Performed By: #### C BC #### [facility] [address] [place] [address] Dr. Raul Pereira LYMPH # 1.9 103/ul Normal 1.2-3.8 [facility] Comment on above: Performed By: #### C BC #### [facility] [address] [place] [address] Dr. Raul Pereira Lymphocytes/100 WBC (Bld) 25.2 % Normal 20.5-60.0 [facility] Comment on above: Performed By: #### C BC #### [facility] [address] [address] [address] Raul Pereira MANUAL DIFF REQ NO Normal [facility] Comment on above: Performed By: #### C BC #### [facility] [address] [place] [address] Dr. Raul Pereira MCH (RBC) [Entitic mass] 24.1 pg Critically low 26.7-34.0 [facility] Comment on above: Performed By: #### C BC #### [facility] [address] [place] [address] Dr. Raul Pereira MCHC (RBC) [Mass/Vol] 31.4 g/dL Normal 29.9-35.2 [facility] Comment on above: Performed By: #### C BC #### [facility] [address] [place] [address] Dr. Raul Pereira MCV (RBC) [Entitic vol] 76.6 fL Critically low 81.0-99.0 [facility] Comment on above: Performed By: #### C BC #### [facility] [address] [place] [address] Dr. Raul Pereira MONO # 0.8 103/ul Normal 0.3-0.8 [facility] Comment on above: Performed By: #### C BC #### [facility] [address] [place] [address] Dr. Raul Pereira Monocytes/100 WBC (Bld) 10.7 % Normal 1.7-12.0 [facility] Comment on above: Performed By: #### C BC #### [facility] [address] [place] [address] Dr. Raul Pereira NEUT # 4.7 103/ul Normal 1.4-6.5 [facility] Comment on above: Performed By: #### C BC #### [facility] [address] [place] [address] Dr. Raul Pereira Neutrophils/100 WBC (Bld) 61.5 % Normal 43.0-75.0 [facility] Comment on above: Performed By: #### C BC #### [facility] [address] [place], [place] [address] Dr. Raul Pereira Platelet mean volume (Bld) [Entitic vol] 8.6 fL Critically low 9.5-13.5 [facility] Comment on above: Performed By: #### C BC #### [facility] [address] [place], [place] [address] Dr. Raul Pereira PLT 461 103/ul Critically high 150-450 [facility] Comment on above: Performed By: #### C BC #### [facility] [address] [place], [place] [address] Dr. Raul Pereira RBC 4.32 106/ul Normal 4.20-5.40 [facility] Comment on above: Performed By: #### C BC #### [facility] [address] [place], [place] [address] Dr. Raul Pereira WBC 7.6 103/ul Normal 4.0-11.0 [facility] Comment on above: Performed By: #### C BC #### [facility] [address] [address] [address] Raul Pereira FREE THYROXINE INDEX T7on FTI 2.10 Normal 1.30-4.50 [facility] Comment on above: Performed By: #### T 7, CMP, TSH, LIPID ####[facility] [address] [place], [place] [address]QoDr. Raul Pereira T3U 35.0 % Normal 30.0-39.0 [facility] Comment on above: Performed By: #### T 7, CMP, TSH, LIPID ####[facility] [address] [place], [place] [address]QuDr. Raul Pereira T4 [Mass/Vol] 6.00 ug/dL Normal 4.80-13.90 [facility] Comment on above: Performed By: #### T 7, CMP, TSH, LIPID ####[facility] [address] [place], [place] [address]RcDr. Raul Pereira GLYCOHEMOGLOBIN A1Con 2022 ADA RECOMMENDATION SEE BELOW Normal [facility] Comment on above: Result Comment: ADA RECOMMENDED LIMIT 4.0 - 6.0 ADA THERAPEUTIC TARGET < 7.0 ACTION SUGGESTED > 7.0 Performed By: #### C VDTBH #### [facility] [address] [address] [address] Raul Pereira Glucose [Mass/Vol] 108 mg/dL Normal [facility] Comment on above: Performed By: #### C VDTBH #### [facility] [address] [address] [address] Raul Pereira HbA1c (Bld) [Mass fraction] 5.4 % Normal 4.5-6.2 [facility] Comment on above: Performed By: #### C VDTBH #### [facility] [address] [address] [address] Raul Pereira IRON AND TIBCon 01-13-2023 % SATURATION 3.5 % Normal [facility] Comment on above: Performed By: #### F ETIBC, B12FOL, VITAD ####[facility] [address] [address]Dr. Raul Pereira Iron [Mass/Vol] 18.0 ug/dL Critically low 50.0-170.0 [facility] Comment on above: Performed By: #### F ETIBC, B12FOL, VITAD ####[facility] [address] [address]Dr. Raul Pereira TIBC DIRECT 513.0 ug/dL Critically high 250.0-450.0 [facility] Comment on above: Performed By: #### F ETIBC, B12FOL, VITAD ####[facility] [address] [address]Dr. Raul Pereira LIPID PROFILEon 01-13-2023 CHOL-HDL RATIO NORM SEE BELOW Normal [facility] Comment on above: Result Comment: 3.3 - 4.4 LOW RISK 4.4 - 7.1 AVERAGE RISK 7.1 - 11.0 MODERATE RISK >11.0 HIGH RISK Performed By: #### T 7, CMP, TSH, LIPID ####[facility] [address] [address]Dr. Yilan Pereira Cholesterol [Mass/Vol] 190 mg/dL Normal <=200 [facility] Comment on above: Performed By: #### T 7, CMP, TSH, LIPID ####[facility] [address] [id number]. Raul Pereira Cholesterol in HDL [Mass/Vol] 71 mg/dL Critically high 40-60 [facility] Comment on above: Performed By: #### T 7, CMP, TSH, LIPID ####[facility] [address] [id number]. Aranzapetr Pereira Cholesterol in LDL [Mass/Vol] 104.6 mg/dL Normal [facility] Comment on above: Performed By: #### T 7, CMP, TSH, LIPID ####[facility] [address] [address]Dr. Raul Pereira Cholesterol.total/C holesterol in HDL [Mass ratio] 2.7 {ratio} Normal [facility] Comment on above: Performed By: #### T 7, CMP, TSH, LIPID ####[facility] [address] [id number]. Raul Pereira HDL NORMAL > or = 60 mg/dl - LO W CARDIOVASCULAR RISK <40 mg/dl - HIGH CARDIOVASCULAR RISK Normal [facility] Comment on above: Performed By: #### T 7, CMP, TSH, LIPID ####[facility] [address] [id number]. Raul Pereira LDL CALC NORMAL SEE BELOW Normal [facility] Comment on above: Result Comment: <100 mg/dl OPTIMAL 100 - 129 mg/dl NEAR OR ABOVE OPTIMAL 130 - 159 mg/dl BORDERLINE HIGH 160 - 189 mg/dl HIGH >190 mg/dl VERY HIGH Performed By: #### T 7, CMP, TSH, LIPID ####[facility] [address] [id number]. Raul Pereira Triglyceride [Mass/Vol] 72 mg/dL Normal <=150 [facility] Comment on above: Performed By: #### T 7, CMP, TSH, LIPID ####[facility] [address] [id number]. Raul Pereira VLDL CALC 14.4 mg/dL Normal [facility] Comment on above: Performed By: #### T 7, CMP, TSH, LIPID ####[facility] [address] [address]Dr. Raul Pereira PROF 14(COMP METB)on 023 Albumin [Mass/Vol] 3.5 g/dL Normal 3.4-5.0 [facility] Comment on above: Performed By: #### T 7, CMP, TSH, LIPID ####[facility] [address] [address]Dr. Raul Pereira Albumin/Globulin [Mass ratio] 1.1 {ratio} Normal [facility] Comment on above: Performed By: #### T 7, CMP, TSH, LIPID ####[facility] [address] [address]Dr. Raul Pereira ALP [Catalytic activity/Vol] 92 U/L Normal 46-116 [facility] Comment on above: Performed By: #### T 7, CMP, TSH, LIPID ####[facility] [address] [address]Dr. Raul Pereira ALT [Catalytic activity/Vol] 17 U/L Normal 14-59 [facility] Comment on above: Performed By: #### T 7, CMP, TSH, LIPID ####[facility] [address] [address]Dr. Raul Pereira Anion gap [Moles/Vol] 10.0 mmol/L Normal [facility] Comment on above: Performed By: #### T 7, CMP, TSH, LIPID ####[facility] [address] [address]Dr. Raul Pereira AST [Catalytic activity/Vol] 17 U/L Normal 15-37 [facility] Comment on above: Performed By: #### T 7, CMP, TSH, LIPID ####[facility] [address] [address]Dr. Raul Pereira Bilirubin [Mass/Vol] 0.2 mg/dL Normal 0.2-1.0 [facility] Comment on above: Performed By: #### T 7, CMP, TSH, LIPID ####[facility] [address] [id number]. Raul Pereira Calcium [Mass/Vol] 8.8 mg/dL Normal 8.5-10.1 [facility] Comment on above: Performed By: #### T 7, CMP, TSH, LIPID ####[facility] [address] [address]Dr. Raul Pereira Chloride [Moles/Vol] 101 mmol/L Normal 98-107 [facility] Comment on above: Performed By: #### T 7, CMP, TSH, LIPID ####[facility] [address] [address]Dr. Raul Pereira CO2 [Moles/Vol] 29.4 mmol/L Normal 21.0-32.0 [facility] Comment on above: Performed By: #### T 7, CMP, TSH, LIPID ####[facility] [address] [address]Dr. Raul Pereira Creatinine [Mass/Vol] 0.50 mg/dL Critically low 0.55-1.02 [facility] Comment on above: Performed By: #### T 7, CMP, TSH, LIPID ####[facility] [address] [address]Dr. Raul Pereira EGFR-AF FRENCH >60 Normal >=60 [facility] Comment on above: Performed By: #### T 7, CMP, TSH, LIPID ####[facility] [address] [address]Dr. Raul Pereira EGFR-NON AF FRENCH >60 Normal >=60 [facility] Comment on above: Performed By: #### T 7, CMP, TSH, LIPID ####[facility] [address] [address]Dr. Raul Pereira Globulin (S) [Mass/Vol] 3.2 g/dL Normal [facility] Comment on above: Performed By: #### T 7, CMP, TSH, LIPID ####[facility] [address] [address]Dr. Raul Pereira Glucose [Mass/Vol] 88 mg/dL Normal 74-106 [facility] Comment on above: Performed By: #### T 7, CMP, TSH, LIPID ####[facility] [address] [id number]. Raul Pereira Potassium [Moles/Vol] 4.4 mmol/L Normal 3.5-5.1 [facility] Comment on above: Performed By: #### T 7, CMP, TSH, LIPID ####[facility] [address] [id number]. Raul Pereira Protein [Mass/Vol] 6.7 g/dL Normal 6.4-8.2 [facility] Comment on above: Performed By: #### T 7, CMP, TSH, LIPID ####[facility] [address] [address]Dr. Raul Pereira Sodium [Moles/Vol] 136 mmol/L Normal 136-145 [facility] Comment on above: Performed By: #### T 7, CMP, TSH, LIPID ####[facility] [address] [id number]. Raul Pereira Urea nitrogen [Mass/Vol] 12.0 mg/dL Normal 7.0-18.0 [facility] Comment on above: Performed By: #### T 7, CMP, TSH, LIPID ####[facility] [address] [place] [id number]. Raul Pereira Urea nitrogen/Creatinine [Mass ratio] 24.0 mg/mg Normal [facility] Comment on above: Performed By: #### T 7, CMP, TSH, LIPID ####[facility] [address] [place] [id number]. Raul Pereira TSHon 01-13-2023 TSH 1.623 uIU/mL Normal 0.358-3.740 [facility] Comment on above: Performed By: #### T 7, CMP, TSH, LIPID ####[facility] [address] [address]Dr. Raul Pereira VIT B12 AND FOLATEon 02-27-2 023 Cobalamin (Vitamin B12) [Mass/Vol] 872.0 pg/mL Normal 193.0-986.0 [facility] Comment on above: Performed By: #### F ETIBC, B12FOL, VITAD ####[facility] [address] [address]Dr. Raul Pereira FOLATE 21.20 ng/mL Normal 8.60-58.90 [facility] Comment on above: Performed By: #### F ETIBC, B12FOL, VITAD ####[facility] [address] [address]Dr. Raul Pereira VITAMIN D 25 OHon 01-13-2023 VIT D 25-OH 40.6 ng/mL Normal [facility] Comment on above: Performed By: #### F ETIBC, B12FOL, VITAD ####[facility] [address] [place], [place] [address]Dr. Raul Pereira VIT D RANGES SEE BELOW Normal [facility] Comment on above: Result Comment: <20 ng/mL Vit D deficient 20 - <30 ng/mL Vit D insufficient 30 - 100 ng/mL Vit D sufficient >100 ng/mL Potential Toxicity Performed By: #### F ETIBC, B12FOL, VITAD ####[facility] [address] [place], [place] [address]Dr. Raul Pereira CBC AUTO DIFFon 01-10-2023 BASO # 0.1 103/ul Normal 0.0-0.1 [facility] Comment on above: Performed By: #### C VDTBH #### [facility] [address] [place] [address] Dr. Raul Pereira Basophils/100 WBC (Bld) 0.6 % Normal 0.2-2.0 [facility] Comment on above: Performed By: #### C VDTBH #### [facility] [address] [place] [address] Dr. Raul Pereira EO # 0.1 103/ul Normal 0.0-0.7 [facility] Comment on above: Performed By: #### C VDTBH #### [facility] [address] [place] [address] Dr. Raul Pereira Eosinophils/100 WBC (Bld) 1.3 % Normal 0.9-7.0 [facility] Comment on above: Performed By: #### C VDTBH #### [facility] [address] [place] [address] Dr. Raul Pereira Erythrocyte distribution width (RBC) [Ratio] 18.4 % Critically high 11.0-15.0 [facility] Comment on above: Performed By: #### C VDTBH #### [facility] [address] [place] [address] Dr. Raul Pereira Hematocrit (Bld) [Volume fraction] 37.8 % Normal 36.0-48.0 [facility] Comment on above: Performed By: #### C VDTBH #### [facility] [address] [place] [address] Dr. Raul Pereira Hemoglobin (Bld) [Mass/Vol] 11.6 g/dL Critically low 12.0-16.0 [facility] Comment on above: Performed By: #### C VDTBH #### [facility] [address] [place] [address] Dr. Raul Pereira IG # 0.02 10e3/ul Normal 0.00-0.03 [facility] Comment on above: Performed By: #### C VDTBH #### [facility] [address] [place] [address] Dr. Raul Pereira IG % 0.3 % Normal 0.0-0.5 [facility] Comment on above: Performed By: #### C VDTBH #### [facility] [address] [place] [address] Dr. Raul Pereira LYMPH # 1.7 103/ul Normal 1.2-3.8 [facility] Comment on above: Performed By: #### C VDTBH #### [facility] [address] [place] [address] Dr. Raul Pereira Lymphocytes/100 WBC (Bld) 21.0 % Normal 20.5-60.0 [facility] Comment on above: Performed By: #### C VDTBH #### [facility] [address] [place] [address] Dr. Raul Pereira MANUAL DIFF REQ NO Normal [facility] Comment on above: Performed By: #### C VDTBH #### [facility] [address] [place] [address] Dr. Raul Pereira MCH (RBC) [Entitic mass] 24.1 pg Critically low 26.7-34.0 [facility] Comment on above: Performed By: #### C VDTBH #### [facility] [address] [place] [address] Dr. Raul Pereira MCHC (RBC) [Mass/Vol] 30.7 g/dL Normal 29.9-35.2 [facility] Comment on above: Performed By: #### C VDTBH #### [facility] [address] [place] [address] Dr. Raul Pereira MCV (RBC) [Entitic vol] 78.6 fL Critically low 81.0-99.0 [facility] Comment on above: Performed By: #### C VDTBH #### [facility] [address] [place] [address] Dr. Raul Pereira MONO # 0.6 103/ul Normal 0.3-0.8 [facility] Comment on above: Performed By: #### C VDTBH #### [facility] [address] [place] [address] Dr. Raul Pereira Monocytes/100 WBC (Bld) 7.5 % Normal 1.7-12.0 [facility] Comment on above: Performed By: #### C VDTBH #### [facility] [address] [place] [address] Dr. Raul Pereira NEUT # 5.4 103/ul Normal 1.4-6.5 [facility] Comment on above: Performed By: #### C VDTBH #### [facility] [address] [place] [address] Dr. Raul Pereira Neutrophils/100 WBC (Bld) 69.3 % Normal 43.0-75.0 [facility] Comment on above: Performed By: #### C VDTBH #### [facility] [address] [address] [address] Raul Pereira Platelet mean volume (Bld) [Entitic vol] 9.0 fL Critically low 9.5-13.5 [facility] Comment on above: Performed By: #### C VDTBH #### [facility] [id number] Raul Pereira PLT 516 103/ul Critically high 150-450 [facility] Comment on above: Performed By: #### C VDTBH #### [facility] [address] [address] [address] Raul Pereira RBC 4.81 106/ul Normal 4.20-5.40 [facility] Comment on above: Performed By: #### C VDTBH #### [facility] [address] [address] [address] Raul Pereira WBC 7.8 103/ul Normal 4.0-11.0 [facility] Comment on above: Performed By: #### C VDTBH #### [facility] [address] [address] [address] Raul Pereira CULTURE BLOODon 01-10-2023 Microscopic examination of blood, culture Culture Observations: NO GROWTH AT 5 DAYS. Normal [facility] Comment on above: Performed By: #### B [id number] #### [facility] [address] [address] [address] Raul Pereira Microscopic examination of blood, culture Culture Observations: NO GROWTH AT 5 DAYS. Normal [facility] Comment on above: Performed By: #### B LDCX1 ####[facility] [address] [address]Dr. Raul Pereira PROF 14(COMP METB)on 023 Albumin [Mass/Vol] 3.7 g/dL Normal 3.4-5.0 [facility] Comment on above: Performed By: #### C BC #### [facility] [address] [address] [address] Raul Pereira Albumin/Globulin [Mass ratio] 0.9 {ratio} Normal [facility] Comment on above: Performed By: #### C BC #### [facility] [address] [place] [address] Dr. Raul Pereira ALP [Catalytic activity/Vol] 105 U/L Normal 46-116 [facility] Comment on above: Performed By: #### C BC #### [facility] [address] [address] [address] Raul Pereira ALT [Catalytic activity/Vol] 18 U/L Normal 14-59 [facility] Comment on above: Performed By: #### C BC #### [facility] [address] [place] [address] Dr. Raul Pereira Anion gap [Moles/Vol] 10.8 mmol/L Normal [facility] Comment on above: Performed By: #### C BC #### [facility] [address] [place] [address] Dr. Raul Pereira AST [Catalytic activity/Vol] 21 U/L Normal 15-37 [facility] Comment on above: Performed By: #### C BC #### [facility] [address] [place] [address] Dr. Raul Pereira Bilirubin [Mass/Vol] 0.3 mg/dL Normal 0.2-1.0 [facility] Comment on above: Performed By: #### C BC #### [facility] [address] [place] [address] Dr. Raul Pereira Calcium [Mass/Vol] 9.1 mg/dL Normal 8.5-10.1 [facility] Comment on above: Performed By: #### C BC #### [facility] [address] [place] [address] Dr. Raul Pereira Chloride [Moles/Vol] 100 mmol/L Normal 98-107 [facility] Comment on above: Performed By: #### C BC #### [facility] [address] [place] [address] Dr. Raul Pereira CO2 [Moles/Vol] 30.8 mmol/L Normal 21.0-32.0 [facility] Comment on above: Performed By: #### C BC #### [facility] [address] [place] [address] Dr. Raul Pereira Creatinine [Mass/Vol] 0.58 mg/dL Normal 0.55-1.02 [facility] Comment on above: Performed By: #### C BC #### [facility] [address] [address] [address] Raul Pereira EGFR-AF FRENCH >60 Normal >=60 [facility] Comment on above: Performed By: #### C BC #### [facility] [address] [address] [address] Raul Pereira EGFR-NON AF FRENCH >60 Normal >=60 [facility] Comment on above: Performed By: #### C BC #### [facility] [address] [place] [address] Dr. Raul Pereira Globulin (S) [Mass/Vol] 4.1 g/dL Normal [facility] Comment on above: Performed By: #### C BC #### [facility] [address] [place] [address] Dr. Raul Pereira Glucose [Mass/Vol] 86 mg/dL Normal 74-106 [facility] Comment on above: Performed By: #### C BC #### [facility] [address] [place] [address] Dr. Raul Pereira Potassium [Moles/Vol] 4.6 mmol/L Normal 3.5-5.1 [facility] Comment on above: Performed By: #### C BC #### [facility] [address] [place] [address] Dr. Raul Pereira Protein [Mass/Vol] 7.8 g/dL Normal 6.4-8.2 [facility] Comment on above: Performed By: #### C BC #### [facility] [address] [place] [address] Dr. Raul Pereira Sodium [Moles/Vol] 137 mmol/L Normal 136-145 [facility] Comment on above: Performed By: #### C BC #### [facility] [address] [place] [address] Dr. Raul Pereira Urea nitrogen [Mass/Vol] 9.0 mg/dL Normal 7.0-18.0 [facility] Comment on above: Performed By: #### C BC #### [facility] [address] [address] [address] Raul Pereira Urea nitrogen/Creatinine [Mass ratio] 15.5 mg/mg Normal [facility] Comment on above: Performed By: #### C BC #### [facility] [id number] Raul Pereira US PREMA DOP LEG [...] JESSICA LIPSCOMB Date: 2023-01-10 10:43 Normal [facility] Covid-19 PCR (CVDTB)on 11-18 SARS-CoV-2 (COVID-19) RNA IMELDA+probe Ql (Unsp spec) Not detected Normal NOT DETECTED [facility] Comment on above: Result Comment: This test is not yet approved or cleared by the [place] FDA. When there are no FDA-approved or cleared tests available, and other criteria are met, FDA can make tests available under an emergency access mechanism called an Emergency Use Authorization (EUA). The EUA for this test is supported by the Professor Of Pathology of Health and Human Service's (HHS's) declaration [...] SARS-CoV-2. Performed By: #### C VDTBH #### [facility] [address] [address] [address] Raul Pereira CALCIUMon 12-03-2022 Calcium [Mass/Vol] 9.7 mg/dL Normal 8.5-10.1 [facility] Comment on above: Performed By: #### C VDTBH #### [facility] [address] [address] [address] Raul Pereira CREATININEon 12-03-2022 Creatinine [Mass/Vol] 0.53 mg/dL Critically low 0.55-1.02 [facility] Comment on above: Performed By: #### C BC #### [facility] [address] [place] [address] Dr. Raul Pereira EGFR-AF FRENCH >60 Normal >=60 [facility] Comment on above: Performed By: #### C BC #### [facility] [address] [address] [address] Raul Pereira EGFR-NON AF FRENCH >60 Normal >=60 [facility] Comment on above: Performed By: #### C BC #### [facility] [address] [place] [address] Dr. Raul Pereira Office Visiton 08-27-2022 Follow-up visit [id number] Lex Mejia rri L 1960 F Date Provider Department Center 08/27/2022 Nella-MICAELA GUPTA [facility] SURG Second Fl No family history on file Level of Service:18080 DE POSTOP FOLLOW UP VISIT RELATED TO ORIGINAL PX Reason for Visit and Comments: Post-op [483] - Rhett is here today for a post op visit, s/p 08/16/22 LAP ZEESHAN Normal [facility] HISTOLOGY - TISSUE EXAMon LAB AP CASE REPORT Normal [facility] Comment on above: Order Comment: Pre-o p diagnosis:Calculus of gallbladder without cholecystitis without obstruction [K80.20] Result Comment: Surg ical Pathology Case: [id number] Authorizing Provider: Micaela Gupta MD Collected: 08/16/2022 0842 Ordering Location: [facility] Main Operating Room Received: 08/16/2022 1001 Pathologist: Maricruz Warren MD Specimen: Gallbladder, GALLBLADDER Performed By: #### L [id number] ####[facility] (BEAKER)[address] [place] [address] LAB AP CLINICAL INFORMATION Normal [facility] Comment on above: Order Comment: Pre-o p diagnosis:Calculus of gallbladder without cholecystitis without obstruction [K80.20] Result Comment: Pre- op diagnosis: Calculus of gallbladder without cholecystitis without obstruction [K80.20] Performed By: #### L [id number] ####[facility] (BEAKER)[address] [place] [address] LAB AP GROSS DESCRIPTION A. Gallbladder. Normal [facility] Comment on above: Order Comment: Pre-o p [...] 0.1 to 0.2 cm in maximum thickness. Baggage Smasher sections submitted as follows: Cassette 1: Cystic duct resection margin and neck Cassette 2: Body and fundus Ankit Koroma, Pathologists' Riffler Tender Performed By: #### L [id number] ####[facility] (BEAKER)[address] [address] LAB AP MICROSCOPIC DESCRIPTION Microscopic examination performed Normal [facility] Comment on above: Order Comment: Pre-o p diagnosis:Calculus of gallbladder without cholecystitis without obstruction [K80.20] Performed By: #### L [id number] ####[facility] (BEAKER)[address] [place] [address] LAB AP REPORT FINAL DIAGNOSIS NARRATIVE [facility] Comment on above: Order Comment: Pre-o p diagnosis:Calculus of gallbladder without cholecystitis without obstruction [K80.20] Result Comment: Gall bladder, cholecystectomy: - Cholelithiasis and cholesterolosis. Performed By: #### L [id number] ####[facility] (BEAKER)[address] [place] [address] on 08-16-2022 HP ----- ----- Attestation signed by Micaela Gupta MD at 08/16/2022 7:34 AM Attending Physician Statement I have discussed the case, including pertinent history and exam findings with Dr. Del Angel, surgical oncologist and have personally seen the patient. I agree with the assessment, plan and orders as documented. [phone] pager [phone] phone ----- [facility] General Surgery HISTORY & PHYSICAL Chief Complaint: [...] History: Diagnosis Date Anxiety Arthritis Chronic bronchitis ([facility]) Depression DVT (deep venous thrombosis) ([facility]) Gall bladder disease GERD (gastroesophageal [...] Component Value (more content not included)... Normal [facility] NURSNOTEon 08-16-2022 NURSNOTE Stable. Pain minimal . DC criteria met. IV dc'd and patient getting dressed. 1155 Stable for discharge. Normal [facility] NURSNOTE DC instructions revi ewed with patient and Granddaughter, allowed time for questions, copy given. Normal [facility] NURSNOTE Report rec'd and car e assumed. No assessment changes. Pain minimal. Normal [facility] NURSNOTE 0920 Recovery called. [facility] OPNOTE CHOLECYSTECTOMY, LAPAROSCOPIC Operative Note Date: 08/16/2022 Location: [facility] OR Name: Rhett Mejia, : 1960, Diagnosis Pre-op Diagnosis * Calculus of gallbladder without cholecystitis without obstruction [K80.20] * History of gastric bypass [Z98.84] Post-op Diagnosis * Calculus of gallbladder without cholecystitis without obstruction [K80.20] * History of gastric bypass [Z98.84] Procedures CHOLECYSTECTOMY, LAPAROSCOPIC 58371 - DE LAPS SURG CHOLECYSTECTOMY W/CHOLANGIOGRAPHY Surgeons * Micaela Gupta - Primary * Robyn Del Angel Procedure Summary Anesthesia: General ASA: III Estimated Blood Loss: 10 mL Total IV Fluids: 1000 mL Drains: * None in log * Specimens ID Source Type Tests Collected By Collected At Frozen? Priority Lab ID A Gallbladder Tissue HISTOLOGY - TISSUE EXAM Micaela Gupta MD 08/16/22 0842 No [id number] Description: GALLBLADDER Staff: Edi Developer: Zeny De La Cruz RN Scrub Person: [...] PACU - hemodynamically stable. Condition: stable Normal [facility] POCT GLUCOSE METER UNSOLICIT ED RESULTSon 08-16-2022 Glucose [Mass/Vol] 88 mg/dL Normal 70-105 [facility] Comment on above: Result Comment: epaw low Performed By: #### L [id number] #### [facility] LAB (BEAKER) [address] [place] [address] POCT SARS-COV-2 PCRon 2021 POC SARS-COV-2 ANTIGEN Negative Normal Negative [facility] Comment on above: Result Comment: ID N [...] Certificate of Accreditation. Performed By: #### L [id number] ####[facility] (BEAKER)[address] [place] [address] Orders Onlyon 08-14-2022 Orders Only [id number] Lex Mejia rrmonica L 1960 F Date Provider Department Center 08/14/2022 [id number], HISTORICAL [facility] Medical C No family history on file Normal [facility] [id number] 08-13-2022 [id number] NPO after MN Must have a local driver to take you home and someone to stay for 24 hours after surgery. No jewelry. Hold the meds we spoke about: NSAIDS Take the meds we spoke about w/a sip of water DOS: GAPAPENTIN, NEXIUM, INHALER, CYMBALTA Bring insurance card and ID. LABS AND COVID TO BE DONE IN [place]. Normal [facility] CBC AUTO DIFFon 08-13-2022 BASO # 0.0 103/ul Normal 0.0-0.1 [facility] Comment on above: Performed By: #### C BC #### [facility] [address] [place], [place] [address] Dr. Raul Pereira Basophils/100 WBC (Bld) 0.4 % Normal 0.2-2.0 [facility] Comment on above: Performed By: #### C BC #### [facility] [address] [address] [address] Raul Pereira EO # 0.1 103/ul Normal 0.0-0.7 [facility] Comment on above: Performed By: #### C BC #### [facility] [address] [place] [address] Dr. Raul Pereira Eosinophils/100 WBC (Bld) 1.2 % Normal 0.9-7.0 [facility] Comment on above: Performed By: #### C BC #### [facility] [address] [place] [address] Dr. Raul Pereira Erythrocyte distribution width (RBC) [Ratio] 18.6 % Critically high 11.0-15.0 [facility] Comment on above: Performed By: #### C BC #### [facility] [address] [place] [address] Dr. Raul Pereira Hematocrit (Bld) [Volume fraction] 39.1 % Normal 36.0-48.0 [facility] Comment on above: Performed By: #### C BC #### [facility] [address] [place] [address] Dr. Raul Pereira Hemoglobin (Bld) [Mass/Vol] 12.5 g/dL Normal 12.0-16.0 [facility] Comment on above: Performed By: #### C BC #### [facility] [address] [place] [address] Dr. Raul Pereira IG # 0.03 10e3/ul Normal 0.00-0.03 [facility] Comment on above: Performed By: #### C BC #### [facility] [address] [place] [address] Dr. Raul Pereira IG % 0.4 % Normal 0.0-0.5 [facility] Comment on above: Performed By: #### C BC #### [facility] [address] [place] [address] Dr. Raul Pereira LYMPH # 2.0 103/ul Normal 1.2-3.8 [facility] Comment on above: Performed By: #### C BC #### [facility] [address] [place] [address] Dr. Raul Pereira Lymphocytes/100 WBC (Bld) 27.2 % Normal 20.5-60.0 [facility] Comment on above: Performed By: #### C BC #### [facility] [address] [place] [address] Dr. Raul Pereira MANUAL DIFF REQ NO Normal [facility] Comment on above: Performed By: #### C BC #### [facility] [address] [place] [address] Dr. Raul Pereira MCH (RBC) [Entitic mass] 27.2 pg Normal 26.7-34.0 [facility] Comment on above: Performed By: #### C BC #### [facility] [address] [place] [address] Dr. Raul Pereira MCHC (RBC) [Mass/Vol] 32.0 g/dL Normal 29.9-35.2 [facility] Comment on above: Performed By: #### C BC #### [facility] [address] [place] [address] Dr. Raul Pereira MCV (RBC) [Entitic vol] 85.2 fL Normal 81.0-99.0 [facility] Comment on above: Performed By: #### C BC #### [facility] [address] [place] [address] Dr. Raul Pereira MONO # 0.7 103/ul Normal 0.3-0.8 [facility] Comment on above: Performed By: #### C BC #### [facility] [address] [place] [address] Dr. Raul Pereira Monocytes/100 WBC (Bld) 9.3 % Normal 1.7-12.0 [facility] Comment on above: Performed By: #### C BC #### [facility] [address] [place] [address] Dr. Raul Pereira NEUT # 4.4 103/ul Normal 1.4-6.5 [facility] Comment on above: Performed By: #### C BC #### [facility] [address] [address] [address] Raul Pereira Neutrophils/100 WBC (Bld) 61.5 % Normal 43.0-75.0 [facility] Comment on above: Performed By: #### C BC #### [facility] [address] [place] [address] Dr. Raul Pereira Platelet mean volume (Bld) [Entitic vol] 8.7 fL Critically low 9.5-13.5 [facility] Comment on above: Performed By: #### C BC #### [facility] [address] [place] [address] Dr. Raul Pereira PLT 387 103/ul Normal 150-450 [facility] Comment on above: Performed By: #### C BC #### [facility] [address] [place] [address] Dr. Raul Pereira RBC 4.59 106/ul Normal 4.20-5.40 [facility] Comment on above: Performed By: #### C BC #### [facility] [address] [place] [address] Dr. Raul Pereira WBC 7.2 103/ul Normal 4.0-11.0 [facility] Comment on above: Performed By: #### C BC #### [facility] [address] [place] [address] Dr. Raul Pereira [facility] SARS-CoV-2 (COVID-19) RNA IMELDA+probe Ql (Unsp spec) Not detected Normal NOT DETECTED [facility] Comment on above: Result Comment: This test is not yet approved or cleared by the [place] FDA. When there are no FDA-approved or cleared tests available, and other criteria are met, FDA can make tests available under an emergency access mechanism called an Emergency Use Authorization (EUA). The EUA for this test is supported by the Professor Of Pathology of Health and Human Service's (HHS's) declaration [...] SARS-CoV-2. Performed By: #### C VDTB #### [facility] [address] [place] [address] Dr. Raul Pereira PROF CHEM 8 (BAS METB)on Anion gap [Moles/Vol] 11.5 mmol/L Normal [facility] Comment on above: Performed By: #### C BC #### [facility] [address] [place] [address] Dr. Raul Pereira Calcium [Mass/Vol] 9.5 mg/dL Normal 8.5-10.1 [facility] Comment on above: Performed By: #### C BC #### [facility] [address] [place] [address] Dr. Raul Pereira Chloride [Moles/Vol] 101 mmol/L Normal 98-107 [facility] Comment on above: Performed By: #### C BC #### [facility] [address] [place] [address] Dr. Raul Pereira CO2 [Moles/Vol] 29.6 mmol/L Normal 21.0-32.0 [facility] Comment on above: Performed By: #### C BC #### [facility] [address] [place] [address] Dr. Raul Pereira Creatinine [Mass/Vol] 0.65 mg/dL Normal 0.55-1.02 [facility] Comment on above: Performed By: #### C BC #### [facility] [address] [place] [address] Dr. Raul Pereira EGFR-AF FRENCH >60 Normal >=60 [facility] Comment on above: Performed By: #### C BC #### [facility] [address] [place] [address] Dr. Raul Pereira EGFR-NON AF FRENCH >60 Normal >=60 [facility] Comment on above: Performed By: #### C BC #### [facility] [address] [address] [address] Raul Pereira Glucose [Mass/Vol] 104 mg/dL Normal 74-106 [facility] Comment on above: Performed By: #### C BC #### [facility] [id number] Raul Pereira Potassium [Moles/Vol] 4.1 mmol/L Normal 3.5-5.1 [facility] Comment on above: Performed By: #### C BC #### [facility] [address] [address] [address] Raul Pereira Sodium [Moles/Vol] 138 mmol/L Normal 136-145 [facility] Comment on above: Performed By: #### C BC #### [facility] [address] [address] [address] Raul Pereira Urea nitrogen [Mass/Vol] 11.0 mg/dL Normal 7.0-18.0 [facility] Comment on above: Performed By: #### C BC #### [facility] [address] [address] [address] Raul Pereira Urea nitrogen/Creatinine [Mass ratio] 16.9 mg/mg Normal [facility] Comment on above: Performed By: #### C BC #### [facility] [id number] Raul Pereira Office Visiton 08-06-2022 Follow-up visit [id number] Lex Mejia L 1960 F Date Provider Department Center 08/06/2022 Nella-MICAELA GUPTA [facility] SURG Second Fl No family history on file Level of Service:21022 DE OFFICE/OUTPATIENT ESTABLISHED LOW MDM 20-29 MIN Reason for Visit and Comments: Consult [484] - Rhett is here for a gallbladder consult. Rhett also c/o swelling in right leg with pain in calf. Normal [facility] PROTIME-INRon 08-06-2022 INR IN PPP BY COAGULATION ASSAY 0.89 Low 0.90-1.10 [facility] Comment on above: Result Comment: ACCC P [...] 1995;108:231S-246S. Performed By: #### L [id number] #### [facility] ([facility]) [address] [place] [address] PROTHROMBIN TIME (PT) IN PPP BY COAGULATION ASSAY 12.1 Seconds Low 12.3-14.8 [facility] Comment on above: Performed By: #### L [id number] #### [facility] ([facility]) [address] [place] [address] CT ABD/PELVIS WO CONon 07-24 CT ABD/PELVIS [...] by: JESSICA LIPSCOMB Date: 2022-07-24 17:21 Normal [facility] HEPATOBILIARY SCAN W EFon 07-18-2022 [place] HEPATOBILIARY SCAN W EF EXAMINATION: [place] HEPATOBILIARY [...] by: MEAGHAN SKINNER Date: 2022-07-18 10:22 Normal [facility] CBC AUTO DIFFon 07-13-2022 BASO # 0.0 103/ul Normal 0.0-0.1 [facility] Comment on above: Performed By: #### C BC #### [facility] [address] [address] [address] Raul Pereira Basophils/100 WBC (Bld) 0.5 % Normal 0.2-2.0 [facility] Comment on above: Performed By: #### C BC #### [facility] [address] [place] [address] Dr. Raul Pereira EO # 0.1 103/ul Normal 0.0-0.7 [facility] Comment on above: Performed By: #### C BC #### [facility] [address] [address] [address] Raul Pereira Eosinophils/100 WBC (Bld) 0.9 % Normal 0.9-7.0 [facility] Comment on above: Performed By: #### C BC #### [facility] [address] [place] [address] Dr. Raul Pereira Erythrocyte distribution width (RBC) [Ratio] 20.2 % Critically high 11.0-15.0 [facility] Comment on above: Performed By: #### C BC #### [facility] [address] [place] [address] Dr. Raul Pereira Hematocrit (Bld) [Volume fraction] 41.1 % Normal 36.0-48.0 [facility] Comment on above: Performed By: #### C BC #### [facility] [address] [place] [address] Dr. Raul Pereira Hemoglobin (Bld) [Mass/Vol] 13.2 g/dL Normal 12.0-16.0 [facility] Comment on above: Performed By: #### C BC #### [facility] [address] [place] [address] Dr. Raul Pereira IG # 0.05 10e3/ul Critically high 0.00-0.03 [facility] Comment on above: Performed By: #### C BC #### [facility] [address] [place] [address] Dr. Raul Pereira IG % 0.6 % Critically high 0.0-0.5 [facility] Comment on above: Performed By: #### C BC #### [facility] [address] [place] [address] Dr. Raul Pereira LYMPH # 1.4 103/ul Normal 1.2-3.8 [facility] Comment on above: Performed By: #### C BC #### [facility] [address] [place] [address] Dr. Raul Pereira Lymphocytes/100 WBC (Bld) 17.3 % Critically low 20.5-60.0 [facility] Comment on above: Performed By: #### C BC #### [facility] [address] [place] [address] Dr. Raul Pereira MANUAL DIFF REQ NO Normal [facility] Comment on above: Performed By: #### C BC #### [facility] [address] [place] [address] Dr. Raul Pereira MCH (RBC) [Entitic mass] 27.3 pg Normal 26.7-34.0 [facility] Comment on above: Performed By: #### C BC #### [facility] [address] [place] [address] Dr. Raul Pereira MCHC (RBC) [Mass/Vol] 32.1 g/dL Normal 29.9-35.2 [facility] Comment on above: Performed By: #### C BC #### [facility] [address] [place] [address] Dr. Raul Pereira MCV (RBC) [Entitic vol] 84.9 fL Normal 81.0-99.0 [facility] Comment on above: Performed By: #### C BC #### [facility] [address] [place] [address] Dr. Raul Pereira MONO # 0.8 103/ul Normal 0.3-0.8 [facility] Comment on above: Performed By: #### C BC #### [facility] [address] [place] [address] Dr. Raul Pereira Monocytes/100 WBC (Bld) 10.0 % Normal 1.7-12.0 [facility] Comment on above: Performed By: #### C BC #### [facility] [address] [place] [address] Dr. Raul Pereira NEUT # 5.8 103/ul Normal 1.4-6.5 [facility] Comment on above: Performed By: #### C BC #### [facility] [address] [place] [address] Dr. Raul Pereira Neutrophils/100 WBC (Bld) 70.7 % Normal 43.0-75.0 [facility] Comment on above: Performed By: #### C BC #### [facility] [address] [place] [address] Dr. Raul Pereira Platelet mean volume (Bld) [Entitic vol] 9.1 fL Critically low 9.5-13.5 [facility] Comment on above: Performed By: #### C BC #### [facility] [address] [place] [address] Dr. Raul Pereira PLT 358 103/ul Normal 150-450 [facility] Comment on above: Performed By: #### C BC #### [facility] [address] [place] [address] Dr. Raul Pereira RBC 4.84 106/ul Normal 4.20-5.40 [facility] Comment on above: Performed By: #### C BC #### [facility] [address] [place] [address] Dr. Raul Pereira WBC 8.1 103/ul Normal 4.0-11.0 [facility] Comment on above: Performed By: #### C BC #### [facility] [address] [place] [address] Dr. Raul Pereira LIPASEon 07-13-2022 Lipase [Catalytic activity/Vol] 47.0 U/L Critically low 73.0-393.0 [facility] Comment on above: Performed By: #### C BC #### [facility] [address] [place] [address] Dr. Raul Pereira PROF 14(COMP METB)on Albumin [Mass/Vol] 3.6 g/dL Normal 3.4-5.0 [facility] Comment on above: Performed By: #### C BC #### [facility] [address] [place] [address] Dr. Raul Pereira Albumin/Globulin [Mass ratio] 1.0 {ratio} Normal [facility] Comment on above: Performed By: #### C BC #### [facility] [address] [place] [address] Dr. Raul Pereira ALP [Catalytic activity/Vol] 88 U/L Normal 46-116 [facility] Comment on above: Performed By: #### C BC #### [facility] [address] [place] [address] Dr. Raul Pereira ALT [Catalytic activity/Vol] 16 U/L Normal 14-59 [facility] Comment on above: Performed By: #### C BC #### [facility] [address] [place] [address] Dr. Raul Pereira Anion gap [Moles/Vol] 13.2 mmol/L Normal [facility] Comment on above: Performed By: #### C BC #### [facility] [address] [place] [address] Dr. Raul Pereira AST [Catalytic activity/Vol] 15 U/L Normal 15-37 [facility] Comment on above: Performed By: #### C BC #### [facility] [address] [place] [address] Dr. Raul Pereira Bilirubin [Mass/Vol] 0.2 mg/dL Normal 0.2-1.0 [facility] Comment on above: Performed By: #### C BC #### [facility] [address] [place] [address] Dr. Raul Pereira Calcium [Mass/Vol] 9.5 mg/dL Normal 8.5-10.1 [facility] Comment on above: Performed By: #### C BC #### [facility] [address] [place] [address] Dr. Raul Pereira Chloride [Moles/Vol] 100 mmol/L Normal 98-107 [facility] Comment on above: Performed By: #### C BC #### [facility] [address] [place] [address] Dr. Raul Pereira CO2 [Moles/Vol] 28.0 mmol/L Normal 21.0-32.0 [facility] Comment on above: Performed By: #### C BC #### [facility] [address] [place] [address] Dr. Raul Pereira Creatinine [Mass/Vol] 0.78 mg/dL Normal 0.55-1.02 [facility] Comment on above: Performed By: #### C BC #### [facility] [address] [address] [address] Raul Pereira EGFR-AF FRENCH >60 Normal >=60 [facility] Comment on above: Performed By: #### C BC #### [facility] [address] [place] [address] Dr. Raul Pereira EGFR-NON AF FRENCH >60 Normal >=60 [facility] Comment on above: Performed By: #### C BC #### [facility] [address] [place] [address] Dr. Raul Pereira Globulin (S) [Mass/Vol] 3.6 g/dL Normal [facility] Comment on above: Performed By: #### C BC #### [facility] [address] [place] [address] Dr. Raul Pereira Glucose [Mass/Vol] 86 mg/dL Normal 74-106 [facility] Comment on above: Performed By: #### C BC #### [facility] [address] [place] [address] Dr. Raul Pereira Potassium [Moles/Vol] 4.2 mmol/L Normal 3.5-5.1 [facility] Comment on above: Performed By: #### C BC #### [facility] [address] [place] [address] Dr. Raul Pereira Protein [Mass/Vol] 7.2 g/dL Normal 6.4-8.2 [facility] Comment on above: Performed By: #### C BC #### [facility] [address] [place] [address] Dr. Raul Pereira Sodium [Moles/Vol] 137 mmol/L Normal 136-145 [facility] Comment on above: Performed By: #### C BC #### [facility] [address] [place], [place] [address] Dr. Raul Pereira Urea nitrogen [Mass/Vol] 11.0 mg/dL Normal 7.0-18.0 [facility] Comment on above: Performed By: #### C BC #### [facility] [address] [place], [place] [address] Dr. Raul Pereira Urea nitrogen/Creatinine [Mass ratio] 14.1 mg/mg Normal [facility] Comment on above: Performed By: #### C BC #### [facility] [address] [place], [place] [address] Dr. Raul Pereira US SINGLE QUAD RT [...] by: MICAH ROSAS Date: 2022-07-13 16:33 Normal [facility]17 SARS-CoV-2 (COVID-19) RNA IMELDA+probe Ql (Unsp spec) Not detected Normal NOT DETECTED [facility] Comment on above: Result Comment: This test is not yet approved or cleared by the [place] FDA. When there are no FDA-approved or cleared tests available, and other criteria are met, FDA can make tests available under an emergency access mechanism called an Emergency Use Authorization (EUA). The EUA for this test is supported by the Professor Of Pathology of Health and Human Service's (HHS's) declaration [...] consistent with SARS-CoV-2. Performed By: #### [facility] #### [facility] [address] [place] [address] Dr. Raul Pereira Endoscopy Reporton 8 Endoscopy Report MR#: [id number] Pt. Name: Rhett Mejia Surgery Date: 02/24/2018 Room #: Z0 Date of : 1960 PROCEDURE NOTEATTENDING: Xin Beasley M.D.PROCEDURE PERFORMED: EGD.WEIGHTS AND MEASURES INSPECTOR: Dr. Noland.SEDATION:1. Versed 10 mg.2. Fentanyl 250 [...] 02/24/2018/09:53 Kiara/Ruddy Noland M.D.Date Trans: 02/24/2018 12:13 P/Aditya_JN:[id number] cc: Napoleon Rahman M.D. [address] [facility] [phone] Napoleon [facility] Endoscopy Report MR#: [id number] Pt. Name: Rhett Mejia Surgery Date: 02/24/2018 Room #: Z0 Date of : 1960 PROCEDURE NOTEATTENDING: Xin Beasley M.D.PROCEDURE PERFORMED: Colonoscopy and polypectomy.WEIGHTS AND MEASURES INSPECTOR: Ruddy Noland M.D.SEDATION: Versed 10 mg and [...] 02/24/2018/09:57 A/Ruddy Noland M.D.Date Trans: 02/24/2018 10:12 A/mmoDN_JN:[id number] cc: Napoleon Rahman M.D. [address] [place] [phone] Normal [facility] POC GLUCOSE LABon 02-24-2018 Glucose mass conc 87 mg/dL Normal 70-100 [facility] Comment on above: Performed By: #### 8 [id number] ####[facility] Vital Signs Date Time Vital Sign Value Performing Clinician Facility NEGATED: Highlighted row BMI (Body Mass Index) [facility] NEGATED: Highlighted row Body Temperature [facility] NEGATED: Highlighted row Body weight [facility] NEGATED: Highlighted row BP Diastolic Gene [facility] NEGATED: Highlighted row BP Systolic [facility] NEGATED: Highlighted row Height [facility] NEGATED: Highlighted row Pulse (Heart Rate) [facility] NEGATED: Highlighted row Pulse Oximetry Gene [facility] NEGATED: Highlighted row Respiratory Rate [facility] Encounters Encounter Date Encounter Type Care Provider Facility Start: 01-30-2024 ambulatory Cristian Johnson acility:[facility] Start: 09-22-2023 End: 09-23-2023 ambulatory Monica [...] abnormal findings DR NAPOLEON RAHMAN . [facility] Start: 01-31-2023 End: 02-01-2023 Encounter for [...] Encounter for preprocedural laboratory examination DR BETHEL ILTTLE . [facility] Start: 12-13-2022 End: 12-14-[address] [...] Start: 08-27-2022 End: 08-27-2022 ambulatory MICAELA GUPTA [facility] Start: 08-16-2022 End: 08-16-2022 ambulatory MICAELA GUPTA [facility] Start: 08-15-2022 Encounter for other preprocedural examination DR MICAELA GUPTA [facility] Start: 08-15-2022 Encounter for preprocedural laboratory examination DR MICAELA GUPTA [facility] Start: 08-13-2022 End: 08-14-[address] MICAELA GUPTA Facility:[facility] Start: 08-13-2022 End: 08-14-2022 Encounter for other preprocedural examination DR MICAELA GUPTA Facility:[facility] Start: 08-06-2022 End: 08-07-2022 ambulatory [facility] Start: 08-06-2022 End: 08-06-2022 ambulatory [facility] Start: 08-06-2022 ambulatory [facility] Start: 07-24-2022 End: 07-25-[address] [...] Start: 02-24-2018 End: 02-25-2018 Ambulatory XIN BEASLEY Facility:[facility] Start: 10-19-2014 End: 10-19-2014 Patient encounter procedure [facility] Start: 12-22-2013 End: 12-22-2013 Departed Referred [facility] Start: 10-12-2001 End: 10-12-2001 Patient encounter procedure [facility] Start: 09-01-2001 End: 09-01-2001 Patient encounter procedure [facility] Start: 08-26-2001 End: 08-26-2001 Patient encounter procedure [facility] Start: 03-21-1999 End: 03-28-1999 Evaluation and management of inpatient [facility] Start: 09-07-1997 End: 09-07-1997 Admission to day surgery [facility] Start: 07-21-1997 End: 07-21-1997 Emergency department patient visit [facility] Procedures Date Procedure Procedure Detail Performing Clinician Start: 02-24-2018 Colsc flx w/removal lesion by hot bx forceps XIN BEASLEY Payers Date Payer Category Payer Unknown 1960 Self-pay 1960 Self-pay [id number] 1960 Unknown [id number] 1960 Unknown [id number] 2.16.84 0.1.158471.3.579.2.593 1960 Unknown [id number] 2.16.84 0.1.394013.3.579.2.593 1959 Unknown [id number] .16.84 0.1.917632.3.579.2.593 1959 Unknown [id number] .16.84 0.1.117995.3.579.2.593 1959 Unknown [id number] 2.16.84 0.1.379847.3.579.2.593 1959 Unknown [id number] 2.16.84 0.1.201869.3.579.2.593 1959 Unknown [id number] 2.16.84 0.1.229359.3.579.2.593 1959 Unknown [id number] 2.16.84 0.1.191272.3.579.2.593 1959 Unknown [id number] 2.16.84 0.1.468365.3.579.2.593 1959 Unknown [id number] 2.16.84 0.1.423462.3.579.2.593 1959 Unknown [id number] 2.16.84 0.1.938489.3.579.2.593 1959 Unknown [id number] 2.16.84 0.1.349344.3.579.2.593 1959 Unknown [id number] 2.16.84 0.1.199504.3.579.2.593 1959 Unknown [id number] 2.16.84 0.1.652979.3.579.2.593 1959 Unknown [id number] 2.16.84 0.1.894191.3.579.2.593 1959 Unknown [id number] 2.16.84 0.1.284806.3.579.2.593 1959 Unknown [id number] 2.16.84 0.1.737461.3.579.2.593 1959 Unknown [id number] 2.16.84 0.1.449565.3.579.2.593 1959 Unknown [id number] 2.16.84 0.1.643152.3.579.2.593 1959 Unknown [id number] 2.16.84 0.1.008292.3.579.2.593 1959 Unknown [id number] 2.16.84 0.1.272492.3.579.2.593 1959 Unknown [id number] 2.16.84 0.1.480023.3.579.2.593 1959 Unknown [id number] 2.16.84 0.1.048719.3.579.2.593 1959 Unknown [id number] 2.16.84 0.1.846025.3.579.2.593 1959 Unknown [id number] 2.16.84 0.1.635762.3.579.2.593 1959 Unknown [id number] 2.16.84 0.1.008614.3.579.2.593 1959 Unknown [id number] 2.16.84 0.1.332854.3.579.2.593 1959 Unknown [id number] 2.16.84 0.1.620770.3.579.2.593 1959 Unknown [id number] 2.16.84 0.1.419370.3.579.2.593 1959 Unknown [id number] 2.16. 840.1.157024.3.579.2.196 Medicare [id number] Unknown [id number] Unknown [id number] 2.16.84 0.1.819316.3.579.2.593 Unknown [id number] 2.16.8 40.1.580406.3.579.2.531 Clinical Notes 05-15-2022 to 02-18-2023 Note Date [...] our patients to inform us about any [id number]-aaspjpw medications or herbal remedies/nutritional supplements/alternative remedies. 2. [...] options with their primary care provider. [facility] 01-16-2023 Note CONSULTATION CONSULTATION DATE: 01/16/2023 [...] up in the clinic post epidural. [facility] 12-04-2022 Note CONSULTATION CONSULTATION DATE: 12/04/2022 [...] in the office after the procedure. [facility] 11-15-2022 Note CONSULTATION PROCEDURE DATE: 11/15/2022 [...] the office following her RFA procedure. [facility] 11-15-2022 Note CONSULTATION CONSULTATION DATE: 11/15/2022 [...] measures such as heat and stretches. [facility] 08-29-2022 Note CONSULTATION PROCEDURE DATE: 08/29/2022 [...] pattern. Patient tolerated the procedure well. [facility] 08-29-2022 Note CONSULTATION CONSULTATION DATE: 08/29/2022 [...] up in the office post procedure. [facility] 08-29-2022 Note CONSULTATION CONSULTATION DATE: 08/29/2022 ADDENDUM: Addendum to peer plan: We will repeat radiofrequency ablation starting on the right side and subsequently moving to the left at T11, T12 and L1, L2. [facility] 08-27-2022 Note Subjective Patient ID: Rhett [...] past 36 hour(s)). No follow-ups on file. [facility] 08-16-2022 Note Patient: Rhett rousseau Procedure Summary Date: 08/16/22 Room / Location: [facility] OPERATING ROOM 01 / [facility] Operating Room Anesthesia Start: 734 Anesthesia Stop: [...] no known notable events for this encounter. [facility] 08-16-2022 Note Airway Date/Time: 08/16/2022 7:44 AM Urgency: elective Airway not difficult General Information and Staff Patient location during procedure: OR Anesthesiologist: Cassi Velez MD Resident/MANAGER [employer]/CAA: LEONARD Canales Performed: resident/MANAGER [employer]/LEONARD Indications and Patient Condition Indications for airway [...] before airway management; Dentures to Circ RN [facility] 08-16-2022 Note Patient: Rhett rousseau Procedure Information Date/Time: 08/16/22 0730 Procedure: CHOLECYSTECTOMY, LAPAROSCOPIC, WITH INTRAOPERATIVE CHOLANGIOGRAM, WITH LAPAROTOMY IF INDICATED REQ ERIC OR MANDO HUERTA MAUK, WOODSON - C-ARM AVAIL STAFF REQUESTS: LENIN DE LA CRUZ Location: [facility] OPERATING ROOM 01 / [facility] Operating Room Surgeons: Micaela Gupta MD Relevant [...] Plan discussed with CAA. Additional Equipment Requests [facility] 08-06-2022 Note Subjective Patient ID: Rhett Mejia [...] past 36 hour(s)). No follow-ups on file. [facility] 08-06-2022 Note Subjective Patient ID: Rhett Mejia [...] past 36 hour(s)). No follow-ups on file. [facility] 06-12-2022 Note CONSULTATION PROCEDURE DATE: 06/12/2022 PREOPERATIVE [...] The patient tolerated the procedure well. [facility] 06-12-2022 Note CONSULTATION CONSULTATION DATE: 06/12/2022 [...] agrees to the plan of care. [facility] 05-15-2022 Note CONSULTATION CONSULTATION DATE: 05/15/2022 [...] Patient agrees with the plan of care. [facility] Signed and Approved by: RUBY RAMIREZ . 05/16/2022 13:38:00 [facility] 05-15-2022 Note CONSULTATION PROCEDURE DATE: 05/15/2022 PREOPERATIVE [...] will be followed up in the office. [facility] Signed and Approved by: RUBY RAMIREZ . 05/16/2022 13:38:00 [facility] Summary Purpose Family History No Family [...] and content) DATE CREATED AUTHOR 05/07/2018 [facility] DATE CREATED AUTHOR AUTHOR'S ORGANIZ ATION 09/26/2022 [facility] DATE CREATED AUTHOR AUTHOR'S ORGANIZ ATION 03/28/[address] [facility] DATE CREATED AUTHOR AUTHOR'S ORGANIZ ATION 09/25/2023 [facility] DATE CREATED AUTHOR AUTHOR'S ORGANIZ ATION 03/25/2024 [facility] FOR RECORDS PERTAINING TO PATIENTS WHO ARE [...] BE BASED ON THE PRIMARY CLINICAL RECORDS. [facility] provides no warranty or guarantee of the accuracy or completeness of information in this document.
[2024-04-02 11:45] VITALS: BP 138/83; PULSE 99; O2SAT 99
[2024-04-02] MEDS: DENOSUMAB 60 MG/ML SYRINGE SQ (11:54)
--- NOTE | 2024-04-02 11:55 | PC.NURSE ---
Pt here for prolia injection, she tolerated well. Vitals obtained and stable. Denies any issues or concerns, discharged home ambulatory.
== END 2024-04-16 23:59 | disposition home or self-care (01) ==
LOC: INF 11:21
PROVIDERS: PCP Family Medicine; Visit Provider Family Medicine
DX: M81.0 Age-related osteoporosis without current pathological fracture (principal)
CPT/HCPCS: 96372; J0897

== ENCOUNTER 2024-04-07 19:22 | Outpatient (OUT) | payer MEDICARE, OTHER, SELFPAY ==
--- NOTE | 2024-04-07 | XR_ITS ---
The [address] [address] Patient Name: RHETT MEJIA MRN: [id number] date: 1960 Sex: F Assigned Patient Location: [facility] Current Patient Location: Accession/Order Number: [id number] Exam Date: 04/07/2024 19:45 Report Date: 04/08/2024 07:36 At the request of: NAPOLEON LOPEZ Procedure: XR chest 2V EXAMINATION: XR chest 2V HISTORY: Acute Cough R05.1 COMPARISON: 03/02/2024 TECHNIQUE: PA and lateral FINDINGS: LUNGS: No significant pulmonary parenchymal abnormalities. VASCULATURE: No increased pulmonary vasculature. PLEURA: No pneumothorax, effusion, or pleural thickening. CARDIAC: No cardiomegaly or cardiac silhouette abnormality. MEDIASTINUM: No visible mass or adenopathy. BONES: No fracture or visible bone lesion. Dextrocurvature OTHER: Negative. XR/XR chest 2V IMPRESSION: No acute cardiopulmonary process Electronically authenticated by: MEAGHAN SKINNER Date: 04/08/2024 07:36
--- OUTSIDE RECORDS SUMMARY | 2024-04-07 19:30 | XMS_ITS | CCD ---
Author Organization [facility] Care Team Providers Care Thread Clipper Name Role Phone NAWRAS, ALI T Unavailable Unavailable NAWRAS, ALI T Unavailable Unavailable HOY, NAPOLEON Unavailable Unavailable HOY, NAPOLEON Unavailable Unavailable NC Unavailable Unavailable NAWRAS, ALI T Unavailable Unavailable Irving Zamora Attending Physician Unavaila Napoleon Matute Primary Care Physician Unavailab MICAELA Joseph Attending Unavailable MICAELA GUPTA Attending Unavailable MICAELA GUPTA Referring Unavailable MICAELA GUPTA Referring Unavailable MICAELA GUPTA Attending Unavailable MICEALA GUPTA Admitting Unavailable LAKSHMIPATHY ., NARENDRANATH Admitting Rajani vailable LAKSHMIPATHY ., AMIRA Consulting Rajani vailable HOY ., DR BENDER Primary Care Unavailable LAKSHMIPATHY ., AMIRA Attending Rajani vailable KRYSTIAN ALFARO Consulting Unavailable HOY ., DR BENDER Primary Care Unavailable LAKSHMIPATHY ., NARSALVATOREATH Admitting Rajani vailable RAMIREZ .RUBY Consulting Unavailable LAKSHMIPATHY ., AMIRA Attending Rajani vailable HOY ., DR BENDER Primary Care Unavailable LAKSHMIPATHY ., NARENDRANATH Admitting Rajani vailable LAKSHMIPATHY ., NARENDVENECIAATH Attending Rajani vailable DR JESSICA LIPSCOMB Consulting Unavailable HOKelvin .DR BENDER Primary Care Unavailable LAKSHMIPATHY ., ANNAATH Attending Rajani vailable LAKSHMIPATHY ., NARENDVENECIAATH Admitting Rajani vailable LAKSHMIPATHY ., AMIRA Consulting Rajani vailable HOKelvin ., DR BENDER Consulting Unavailable HOKelvin ., DR BENDER Primary Care Unavailable HOKelvin ., DR BENDER Admitting Unavailable HOY ., [...] DR HINOJOSA Attending Unavailable HOY ., DR EBNDER Primary Care Unavailable GUPTA, DR HINOJOSA Consulting Unavailable HOY ., DR BENDER Consulting Unavailable HOY ., DR BENDER Primary Care Unavailable HOY ., DR BENDER Admitting Unavailable HOY ., DR BENDER Attending Unavailable HOY ., DR BENDER Primary Care Unavailable HOY ., DR BENDER Consulting Unavailable HOY ., DR BENDER Admitting Unavailable HOY ., DR BENDER Attending Unavailable [place], DR MEAGHAN Stanton Consulting Unavailable HOY ., DR BENDER Primary Care Unavailable HOY ., DR BENDER Consulting Unavailable HOY ., DR BENDER Admitting Unavailable HOY ., DR BENDER Attending Unavailable REBAEBER, DR JESSIAC Raya Consulting Unavailable HOY ., DR BENDER [...] HOY ., DR BENDER Attending Unavailable [place], DR MEAGHAN Stanton Consulting Unavailable RAMIREZ ., RUBY Consulting Unavailable LITTLE ., DR BETHEL Reyes Attending Unavailable LITTLE ., DR BETHEL Reyes Admitting Unavailable HOY ., DR BENDER Primary Care Unavailable RAMIREZ ., RUBY Consulting Unavailable ILTTLE ., DR BETHEL Reyes Attending Unavailable LITTLE [...] BENDER Attending Unavailable HOY ., DR BENDER Admsotero Unavailable LITTLE ., DR BETHEL Reyes Attending Unavailable LITTLE ., DR BETHEL Reyes Consulting Unavailable LITTLE ., DR BETHEL Reyes Admitting Unavailable HOY ., DR BENDER Primary Care Unavailable HOY ., DR BENDER Consulting Unavailable HOY ., DR BENDER Primary Care Unavailable HOY ., DR BENDER Admitting Unavailable HOY ., DR BENDER Attending Unavailable PETERSON, DR JESSICA Raya Consulting Unavailable REQUEST, DR KENNETH LISTED Consulting Unavaila iker Noriega, DR BENDER Primary Care Unavailable JOHN Noriega, DR BENDER Admitting Unavailable JOHN Noriega, DR BENDER Attending Unavailable Manas RIOJAS, Monica Todd Attending Unavailable Cristian Morris Attending Unavailab Cristian Du Admitting Unavailab Napoleon Gómez Primary Care Unavailable Allergies Allergy Classification Reported Allergen(s) Allergy Type Date of Onset Reaction(s) Facility (1 source) Contrast media; Translations: [IVP DYE] Propensity to adverse reactions (disorder) 1 [facility] Repository (2 sources) corn extract; Translations: [CORN] Drug Allergy 1 [facility] Repository (6 sources) iodine; Translations: [IODINE] Drug Allergy 9 Edema [facility] Repository (6 sources) Latex; Translations: [LATEX] Drug allergy (disorder) 9 Anaphylaxis [facility] Repository (1 source) loratadine Drug Allergy 1 [facility] Repository (2 sources) loratadine; Translations: [LORATADINE] Drug Allergy 3 [facility] Repository (1 source) montelukast Drug Allergy 1 [facility] Repository (3 sources) papaveretum; Translations: [SOYBEAN] Drug Allergy 1 [facility] Repository (2 sources) Penicillins; Translations: [PENICILLINS] Drug allergy (disorder) 1 [facility] Repository (1 source) povidone-iodine Drug Allergy 9 [facility] Repository (6 sources) propofol; Translations: [PROPOFOL] Drug Allergy 2 Anaphylaxis [facility] Repository (2 sources) wheat preparation; Translations: [WHEAT] Drug Allergy 2 [facility] Repository (5 sources) Iodinated Contrast Media; Translations: [IODINATED CONTRAST MEDIA] Allergy to Substance 4 Anaphylaxis [facility] Repository (1 source) montelukast; Translations: [MONTELUKAST] Drug Allergy 4 [facility] Repository (1 source) oxybutynin; Translations: [DITROPAN] Drug Allergy 2 [facility] Repository (1 source) Povidone-Iodine; Translations: [POVIDONE-IODINE] Drug Allergy 4 [facility] Repository (1 source) Soy protein; Translations: [SOY] Propensity to adverse reactions to drug (disorder) 2 [facility] Repository (1 source) Iodine (And Iodine Containting Drugs) Drug allergy (disorder) 4 [facility] Repository (1 source) Penicillin Drug Allergy [facility] Repository (1 source) Sulfonamides (Antibiotic) Drug allergy (disorder) 2 [facility] Repository (1 source) Iodine Drug Allergy 8 [facility] Repository (1 source) Latex Drug allergy (disorder) 8 [facility] Repository (1 source) Propofol Drug Allergy 8 [facility] Repository Medications Completed/Discontinued Medications Medication Drug [...] 07-15-2022 Episodic Other aftercare (1 source) Other mcfp (current) drug therapy; Translations: [OTH SKILLED NURSING CURRENT DRUG THERAPY] Onset: 07-15-2022 Episodic Other [...] Facility MRI MEG WO CONon 03-05-20 MRI [facility] WO CON EXAM: MRI CSPINE WO CON HISTORY: Cervical radiculitis COMPARISON: [address] TECHNIQUE: Axial sagittal T2, sagittal [...] KRYSTIAN ALFARO Date: 2023-03-05 13:50 Normal [facility] CBC AUTO DIFFon 02-20-2023 BASO # 0.1 103/ul Normal 0.0-0.1 [facility] Comment on above: Performed By: #### C BC #### [facility] [address] [address] [address] Raul Pereira Basophils/100 WBC (Bld) 0.6 % Normal 0.2-2.0 [facility] Comment on above: Performed By: #### C BC #### [facility] [address] [place] [address] Dr. Raul Pereira EO # 0.2 103/ul Normal 0.0-0.7 [facility] Comment on above: Performed By: #### C BC #### [facility] [address] [place] [address] Dr. Raul Pereira Eosinophils/100 WBC (Bld) 2.3 % Normal 0.9-7.0 [facility] Comment on above: Performed By: #### C BC #### [facility] [address] [place] [address] Dr. Raul Pereira Hematocrit (Bld) [Volume fraction] 39.5 % Normal 36.0-48.0 [facility] Comment on above: Performed By: #### C BC #### [facility] [address] [place] [address] Dr. Raul Pereira Hemoglobin (Bld) [Mass/Vol] 12.3 g/dL Normal 12.0-16.0 [facility] Comment on above: Performed By: #### C BC #### [facility] [address] [place] [address] Dr. Raul Pereira IG # 0.03 10e3/ul Normal 0.00-0.03 [facility] Comment on above: Performed By: #### C BC #### [facility] [address] [place] [address] Dr. Raul Pereira IG % 0.4 % Normal 0.0-0.5 [facility] Comment on above: Performed By: #### C BC #### [facility] [address] [place] [address] Dr. Raul Pereira LYMPH # 2.1 103/ul Normal 1.2-3.8 [facility] Comment on above: Performed By: #### C BC #### [facility] [address] [place] [address] Dr. Raul Pereira Lymphocytes/100 WBC (Bld) 24.8 % Normal 20.5-60.0 [facility] Comment on above: Performed By: #### C BC #### [facility] [address] [place] [address] Dr. Raul Pereira MANUAL DIFF REQ NO Normal [facility] Comment on above: Performed By: #### C BC #### [facility] [address] [place] [address] Dr. Raul Pereira MCH (RBC) [Entitic mass] 26.3 pg Critically low 26.7-34.0 [facility] Comment on above: Performed By: #### C BC #### [facility] [address] [place] [address] Dr. Raul Pereira MCHC (RBC) [Mass/Vol] 31.1 g/dL Normal 29.9-35.2 [facility] Comment on above: Performed By: #### C BC #### [facility] [address] [place] [address] Dr. Raul Pereira MCV (RBC) [Entitic vol] 84.4 fL Normal 81.0-99.0 [facility] Comment on above: Performed By: #### C BC #### [facility] [address] [place] [address] Dr. Raul Pereira MONO # 1.0 103/ul Critically high 0.3-0.8 [facility] Comment on above: Performed By: #### C BC #### [facility] [address] [place] [address] Dr. Raul Pereira Monocytes/100 WBC (Bld) 11.8 % Normal 1.7-12.0 [facility] Comment on above: Performed By: #### C BC #### [facility] [address] [place] [address] Dr. Raul Pereira NEUT # 5.0 103/ul Normal 1.4-6.5 [facility] Comment on above: Performed By: #### C BC #### [facility] [address] [place] [address] Dr. Raul Pereira Neutrophils/100 WBC (Bld) 60.1 % Normal 43.0-75.0 [facility] Comment on above: Performed By: #### C BC #### [facility] [address] [place] [address] Dr. Raul Pereira Platelet mean volume (Bld) [Entitic vol] 8.8 fL Critically low 9.5-13.5 [facility] Comment on above: Performed By: #### C BC #### [facility] [address] [place] [address] Dr. Raul Pereira PLT 418 103/ul Normal 150-450 [facility] Comment on above: Performed By: #### C BC #### [facility] [address] [place] [address] Dr. Raul Pereira RBC 4.68 106/ul Normal 4.20-5.40 [facility] Comment on above: Performed By: #### C BC #### [facility] [address] [place] [address] Dr. Raul Pereira WBC 8.3 103/ul Normal 4.0-11.0 [facility] Comment on above: Performed By: #### C BC #### [facility] [address] [place] [address] Dr. Raul Pereira FERRITINon 02-20-2023 Ferritin [Mass/Vol] 15.0 ng/mL Normal 8.0-252.0 [facility] Comment on above: Performed By: #### C BC #### [facility] [address] [place] [address] Dr. Raul Pereira XR CSPINE 2_3 VIEWSon [...] by: JESSICA LIPSCOMB Date: 2023-02-19 06:[address] [facility] [address] LUNG CANCER SCREENINGon 0 02-13-2023 CT [...] by: MEAGHAN SKINNER Date: 2023-02-13 11:02 Normal [facility] ECHOCARDIO M/2D COMPLETEon 0 02-13-2023 ECHOCARDIO M/2D COMPLETE Patient: RHETT MEJIA Exam Date: 02/13/2023 : 1960 Gender:F Ordering : DR NAPOLEON RAHMAN . Admission #: [id number] Family : Order #: [id number] CLICK HERE TO VIEW EXAM ECHOCARDIOGRAM REPORT [...] M.D. on 02/13/2023 at 18:54 Normal [facility] CREATININEon 02-12-2023 Creatinine [Mass/Vol] 0.76 mg/dL Normal 0.55-1.02 [facility] Comment on above: Performed By: #### C BC #### [facility] [address] [address] [address] Raul Pereira EGFR-AF EGYPTIAN >60 Normal >=60 [facility] Comment on above: Performed By: #### C BC #### [facility] [address] [address] [address] Raul Pereira EGFR-NON AF EGYPTIAN >60 Normal >=60 [facility] Comment on above: Performed By: #### C BC #### [facility] [address] [address] [address] Raul Pereira MRI BRAIN WO W [...] by: JESSICA LIPSCOMB Date: 2023-02-12 12:37 Normal [facility] US CAROTID ART BILon 02-12- 023 US CAROTID ART ALEXUS EXAMINATION: US [...] JESSICA LIPSCOMB Date: 2023-02-12 14:03 Normal [facility] COMPLIANCE DRUG SCREENon PDF . Normal [facility] Comment on above: Performed By: #### C BC #### [facility] [address] [place] [address] Dr. Raul Pereira Summary FINAL Normal [facility] Comment on above: Result Comment: == [...] == Performed By: #### C BC #### [facility] [address] [place] [address] Dr. Raul Pereira CULTURE URINEon 02-02-2023 CULTURE [...] Trimethoprim/Sulfamethoxa zole <=20 S F Normal [facility] Comment on above: Performed By: #### U RCX #### [facility] [address] [address] [address] Raul Pereira AMMONIAon 01-31-2023 Ammonia (P) [Moles/Vol] 13 umol/L Normal [facility] Comment on above: Performed By: #### A MM ####[facility] [address] [address]Dr. Raul Pereira CBC AUTO DIFFon 01-31-2023 BASO # 0.1 103/ul Normal 0.0-0.1 [facility] Comment on above: Performed By: #### C BC #### [facility] [address] [place] [address] Dr. Raul Pereira Basophils/100 WBC (Bld) 0.6 % Normal 0.2-2.0 [facility] Comment on above: Performed By: #### C BC #### [facility] [address] [place] [address] Dr. Raul Pereira EO # 0.1 103/ul Normal 0.0-0.7 [facility] Comment on above: Performed By: #### C BC #### [facility] [address] [place] [address] Dr. Raul Pereira Eosinophils/100 WBC (Bld) 1.7 % Normal 0.9-7.0 [facility] Comment on above: Performed By: #### C BC #### [facility] [address] [place] [address] Dr. Raul Pereira Erythrocyte distribution width (RBC) [Ratio] 25.9 % Critically high 11.0-15.0 [facility] Comment on above: Result Comment: 2+ a niso Performed By: #### C BC #### [facility] [address] [place] [address] Dr. Raul Pereira Hematocrit (Bld) [Volume fraction] 42.4 % Normal 36.0-48.0 [facility] Comment on above: Performed By: #### C BC #### [facility] [address] [place] [address] Dr. Raul Pereira Hemoglobin (Bld) [Mass/Vol] 13.1 g/dL Normal 12.0-16.0 [facility] Comment on above: Performed By: #### C BC #### [facility] [address] [place] [address] Dr. Raul Pereira IG # 0.02 10e3/ul Normal 0.00-0.03 [facility] Comment on above: Performed By: #### C BC #### [facility] [address] [place] [address] Dr. Raul Pereira IG % 0.2 % Normal 0.0-0.5 [facility] Comment on above: Performed By: #### C BC #### [facility] [address] [place] [address] Dr. Raul Pereira LYMPH # 2.0 103/ul Normal 1.2-3.8 [facility] Comment on above: Performed By: #### C BC #### [facility] [address] [place] [address] Dr. Raul Pereira Lymphocytes/100 WBC (Bld) 24.8 % Normal 20.5-60.0 [facility] Comment on above: Performed By: #### C BC #### [facility] [address] [place] [address] Dr. Raul Pereira MANUAL DIFF REQ NO Normal [facility] Comment on above: Performed By: #### C BC #### [facility] [address] [place] [address] Dr. Raul Pereira MCH (RBC) [Entitic mass] 25.3 pg Critically low 26.7-34.0 [facility] Comment on above: Performed By: #### C BC #### [facility] [address] [place] [address] Dr. Raul Pereira MCHC (RBC) [Mass/Vol] 30.9 g/dL Normal 29.9-35.2 [facility] Comment on above: Performed By: #### C BC #### [facility] [address] [place] [address] Dr. Raul Pereira MCV (RBC) [Entitic vol] 82.0 fL Normal 81.0-99.0 [facility] Comment on above: Performed By: #### C BC #### [facility] [address] [place] [address] Dr. Raul Pereiar MONO # 0.7 103/ul Normal 0.3-0.8 [facility] Comment on above: Performed By: #### C BC #### [facility] [address] [place] [address] Dr. Raul Pereira Monocytes/100 WBC (Bld) 8.8 % Normal 1.7-12.0 [facility] Comment on above: Performed By: #### C BC #### [facility] [address] [address] [address] Raul Pereira NEUT # 5.2 103/ul Normal 1.4-6.5 [facility] Comment on above: Performed By: #### C BC #### [facility] [address] [address] [address] Raul Pereira Neutrophils/100 WBC (Bld) 63.9 % Normal 43.0-75.0 [facility] Comment on above: Performed By: #### C BC #### [facility] [address] [address] [address] Raul Pereira Platelet mean volume (Bld) [Entitic vol] 9.2 fL Critically low 9.5-13.5 [facility] Comment on above: Performed By: #### C BC #### [facility] [address] [place] [address] Dr. Raul Pereira PLT 334 103/ul Normal 150-450 [facility] Comment on above: Performed By: #### C BC #### [facility] [address] [address] [address] Raul Pereira RBC 5.17 106/ul Normal 4.20-5.40 [facility] Comment on above: Performed By: #### C BC #### [facility] [address] [address] [address] Raul Pereira WBC 8.2 103/ul Normal 4.0-11.0 [facility] Comment on above: Performed By: #### C BC #### [facility] [address] [place] [address] Dr. Raul Pereira SARA - LIPID PROFILEon 2022 CHOL-HDL RATIO NORM SEE BELOW Normal [facility] Comment on above: Result Comment: 3.3 - 4.4 LOW RISK 4.4 - 7.1 AVERAGE RISK 7.1 - 11.0 MODERATE RISK >11.0 HIGH RISK Performed By: #### D ATLIPI ####[facility] [id number] [id number]. Raul Pereira Cholesterol [Mass/Vol] 178 mg/dL Normal <=200 [facility] Comment on above: Performed By: #### D ATLIPI ####[facility] [address] [place], [place] [address]Cn. Raul Pereira Cholesterol in HDL [Mass/Vol] 73 mg/dL Critically high 40-60 [facility] Comment on above: Performed By: #### D ATLIPI ####[facility] [address] [id number]. Raul Pereira Cholesterol in LDL [Mass/Vol] 72.0 mg/dL Normal [facility] Comment on above: Performed By: #### D ATLIPI ####[facility] [id number] [id number]. Raul Pereira Cholesterol.total/C holesterol in HDL [Mass ratio] 2.4 {ratio} Normal [facility] Comment on above: Performed By: #### D ATLIPI ####[facility] [id number] [id number]. Raul Pereira HDL NORMAL > or = 60 mg/dl - LO W CARDIOVASCULAR RISK <40 mg/dl - HIGH CARDIOVASCULAR RISK Normal [facility] Comment on above: Performed By: #### D ATLIPI ####[facility] [address] [id number]. Raul Pereira LDL CALC NORMAL SEE BELOW Normal [facility] Comment on above: Result Comment: <100 mg/dl OPTIMAL 100 - 129 mg/dl NEAR OR ABOVE OPTIMAL 130 - 159 mg/dl BORDERLINE HIGH 160 - 189 mg/dl HIGH >190 mg/dl VERY HIGH Performed By: #### D ATLIPI ####[facility] [address] [id number]. Raul Pereira Triglyceride [Mass/Vol] 165 mg/dL Critically high <=150 [facility] Comment on above: Performed By: #### D ATLIPI ####[facility] [id number] [id number]. Aranzapetr Pereira VLDL CALC 33.0 mg/dL Normal [facility] Comment on above: Performed By: #### D ATLIPI ####[facility] [address] [address]Dr. Raul Pereira DRUG SCREEN RAPID (URINE)on 01-31-2023 AMP Positive Abnormal NEGATIVE [facility] Comment on above: Performed By: #### C BC #### [facility] [address] [address] [address] Raul Pereira BAR Negative Normal NEGATIVE [facility] Comment on above: Performed By: #### C BC #### [facility] [address] [address] [address] Raul Pereira BUP Positive Abnormal NEGATIVE [facility] Comment on above: Performed By: #### C BC #### [facility] [address] [address] [address] Raul Pereira BZO Negative Normal NEGATIVE [facility] Comment on above: Performed By: #### C BC #### [facility] [address] [address] [address] Raul Pereira RADHA Negative Normal NEGATIVE [facility] Comment on above: Performed By: #### C BC #### [facility] [address] [address] [address] Raul Pereira CUT-OFFS SEE BELOW Normal [facility] Comment on above: Result Comment: AMP (Amphetamine): 500ng/mL, BAR (Barbituates): 200 ng/mL, BZO (Benzodiazepines): 150 ng/mL, BUP (Buprenorphine): 10 ng/mL, RADHA (Cocaine): 150 ng/mL, mAMP (Methamphetamine): 500 ng/mL, MTD (Methadone): 200 ng/mL, OPI (Opiates): 100 ng/mL, OXY (Oxycodone): 100 ng/mL, PCP (Phencyclidine): 25 ng/mL, PPX (Propoxyphene): 300 ng/mL, THC (Cannabinoids): 50 ng/mL, TCA (Trycyclic Antidepressants): 300 ng/mL Performed By: #### C BC #### [facility] [address] [address] [address] Raul Pereira DRUG CUT HEADER DRUG CLASS TEST SYST EM CUT-OFF CONCENTRATIONS ARE FOLLOWS: Normal [facility] Comment on above: Performed By: #### C BC #### [facility] [address] [place] [address] Dr. Raul Pereira mAMP Negative Normal NEGATIVE [facility] Comment on above: Performed By: #### C BC #### [facility] [address] [place] [address] Dr. Raul Pereira MTD Negative Normal NEGATIVE [facility] Comment on above: Performed By: #### C BC #### [facility] [address] [place] [address] Dr. Raul Pereira OPI Negative Normal NEGATIVE [facility] Comment on above: Performed By: #### C BC #### [facility] [address] [place] [address] Dr. Raul Pereira OXY Negative Normal NEGATIVE [facility] Comment on above: Performed By: #### C BC #### [facility] [address] [place] [address] Dr. Raul Pereira PCP Negative Normal NEGATIVE [facility] Comment on above: Performed By: #### C BC #### [facility] [address] [place] [address] Dr. Raul Pereira PPX Negative Normal NEGATIVE [facility] Comment on above: Performed By: #### C BC #### [facility] [address] [place] [address] Dr. Raul Pereira TCA Positive Abnormal NEGATIVE [facility] Comment on above: Performed By: #### C BC #### [facility] [address] [place] [address] Dr. Raul Pereira THC Negative Normal NEGATIVE [facility] Comment on above: Performed By: #### C BC #### [facility] [address] [place] [address] Dr. Raul Pereira FREE THYROXINE INDEX T7on FTI 2.89 Normal 1.30-4.50 [facility] Comment on above: Performed By: #### C VDTBH #### [facility] [address] [place] [address] Dr. Raul Pereira T3U 39.0 % Normal 30.0-39.0 [facility] Comment on above: Performed By: #### C VDTBH #### [facility] [address] [address] [address] Raul Pereira T4 [Mass/Vol] 7.40 ug/dL Normal 4.80-13.90 [facility] Comment on above: Performed By: #### C VDTBH #### [facility] [address] [address] [address] Raul Pereira GLYCOHEMOGLOBIN A1Con 2022 ADA RECOMMENDATION SEE BELOW Normal [facility] Comment on above: Result Comment: ADA RECOMMENDED LIMIT 4.0 - 6.0 ADA THERAPEUTIC TARGET < 7.0 ACTION SUGGESTED > 7.0 Performed By: #### D ATA1C ####[facility] [address] [place], [place] [address]NlDr. Raul Pereira Glucose [Mass/Vol] 108 mg/dL Normal [facility] Comment on above: Performed By: #### D ATA1C ####[facility] [address] [place], [place] [address]NaDr. Raul Pereira HbA1c (Bld) [Mass fraction] 5.4 % Normal 4.5-6.2 [facility] Comment on above: Performed By: #### D ATA1C ####[facility] [address] [place], [place] [address]YpDr. Raul Pereira IRONon 01-31-2023 Iron [Mass/Vol] 225.0 ug/dL Critically high 50.0-170.0 [facility] Comment on above: Performed By: #### C VDTBH #### [facility] [address] [address] [address] Raul Pereira PROF 14(COMP METB)on 023 Albumin [Mass/Vol] 3.8 g/dL Normal 3.4-5.0 [facility] Comment on above: Performed By: #### C VDTBH #### [facility] [address] [address] [address] Raul Pereira Albumin/Globulin [Mass ratio] 1.2 {ratio} Normal [facility] Comment on above: Performed By: #### C VDTBH #### [facility] [address] [address] [address] Raul Pereira ALP [Catalytic activity/Vol] 77 U/L Normal 46-116 [facility] Comment on above: Performed By: #### C VDTBH #### [facility] [address] [address] [address] Raul Pereira ALT [Catalytic activity/Vol] 19 U/L Normal 14-59 [facility] Comment on above: Performed By: #### C VDTBH #### [facility] [address] [place] [address] Dr. Raul Pereira Anion gap [Moles/Vol] 12.9 mmol/L Normal [facility] Comment on above: Performed By: #### C VDTBH #### [facility] [address] [place] [address] Dr. Raul Pereira AST [Catalytic activity/Vol] 17 U/L Normal 15-37 [facility] Comment on above: Performed By: #### C VDTBH #### [facility] [address] [place] [address] Dr. Raul Pereira Bilirubin [Mass/Vol] 0.3 mg/dL Normal 0.2-1.0 [facility] Comment on above: Performed By: #### C VDTBH #### [facility] [address] [place] [address] Dr. Raul Pereira Calcium [Mass/Vol] 8.9 mg/dL Normal 8.5-10.1 [facility] Comment on above: Performed By: #### C VDTBH #### [facility] [address] [address] [address] Raul Pereira Chloride [Moles/Vol] 101 mmol/L Normal 98-107 [facility] Comment on above: Performed By: #### C VDTBH #### [facility] [address] [address] [address] Raul Pereira CO2 [Moles/Vol] 28.5 mmol/L Normal 21.0-32.0 [facility] Comment on above: Performed By: #### C VDTBH #### [facility] [address] [address] [address] Raul Pereira Creatinine [Mass/Vol] 0.59 mg/dL Normal 0.55-1.02 [facility] Comment on above: Performed By: #### C VDTBH #### [facility] [address] [address] [address] Raul Pereira EGFR-AF EGYPTIAN >60 Normal >=60 [facility] Comment on above: Performed By: #### C VDTBH #### [facility] [address] [address] [address] Raul Pereira EGFR-NON AF EGYPTIAN >60 Normal >=60 [facility] Comment on above: Performed By: #### C VDTBH #### [facility] [address] [address] [address] Raul Pereira Globulin (S) [Mass/Vol] 3.1 g/dL Normal [facility] Comment on above: Performed By: #### C VDTBH #### [facility] [address] [address] [address] Raul Pereira Glucose [Mass/Vol] 84 mg/dL Normal 74-106 [facility] Comment on above: Performed By: #### C VDTBH #### [facility] [address] [address] [address] Raul Pereira Potassium [Moles/Vol] 4.4 mmol/L Normal 3.5-5.1 [facility] Comment on above: Performed By: #### C VDTBH #### [facility] [address] [address] [address] Raul Pereira Protein [Mass/Vol] 6.9 g/dL Normal 6.4-8.2 [facility] Comment on above: Performed By: #### C VDTBH #### [facility] [address] [address] [address] Raul Pereira Sodium [Moles/Vol] 138 mmol/L Normal 136-145 [facility] Comment on above: Performed By: #### C VDTBH #### [facility] [address] [place] [address] Dr. Raul Pereira Urea nitrogen [Mass/Vol] 11.0 mg/dL Normal 7.0-18.0 [facility] Comment on above: Performed By: #### C VDTBH #### [facility] [address] [place] [address] Dr. Raul Pereira Urea nitrogen/Creatinine [Mass ratio] 18.6 mg/mg Normal [facility] Comment on above: Performed By: #### C VDTBH #### [facility] [address] [place] [address] Dr. Raul Pereira TSHon 01-31-2023 TSH 2.354 uIU/mL Normal 0.358-3.740 [facility] Comment on above: Performed By: #### C VDTBH #### [facility] [address] [place] [address] Dr. Raul Pereira UA RANDOM W/MICROSCOPICon BACTERIA NONE SEEN Normal NONE SEEN [facility] Comment on above: Performed By: #### C BC #### [facility] [address] [place] [address] Dr. Raul Pereira Bilirubin Ql (U) Negative Normal NEGATIVE [facility] Comment on above: Performed By: #### C BC #### [facility] [address] [place] [address] Dr. Raul Pereira CAST NONE SEEN Normal NONE SEEN [facility] Comment on above: Performed By: #### C BC #### [facility] [address] [place] [address] Dr. Raul Pereira Clarity (U) CLEAR Normal CLEAR [facility] Comment on above: Performed By: #### C BC #### [facility] [address] [place] [address] Dr. Raul Pereira Color (U) YELLOW Normal YELLOW [facility] Comment on above: Performed By: #### C BC #### [facility] [address] [place] [address] Dr. Raul Pereira Crystals LM Nom (Urine sed) NONE SEEN Normal NONE SEEN [facility] Comment on above: Performed By: #### C BC #### [facility] [address] [place] [address] Dr. Raul Pereira Epithelial cells LM Ql (Urine sed) NONE SEEN Normal NONE SEEN /RARE [facility] Comment on above: Performed By: #### C BC #### [facility] [address] [place] [address] Dr. Raul Pereira Glucose Ql (U) Negative Normal NEGATIVE [facility] Comment on above: Performed By: #### C BC #### [facility] [address] [place] [address] Dr. Raul Pereira Hemoglobin Ql (U) Negative Normal NEGATIVE [facility] Comment on above: Performed By: #### C BC #### [facility] [address] [place] [address] Dr. Raul Pereira Ketones Ql (U) Negative Normal NEGATIVE [facility] Comment on above: Performed By: #### C BC #### [facility] [address] [place] [address] Dr. Raul Pereira LEUKOCYTES Negative Normal NEGATIVE [facility] Comment on above: Performed By: #### C BC #### [facility] [address] [place] [address] Dr. Raul Pereira MUCOUS NONE SEEN Normal NONE SEEN [facility] Comment on above: Performed By: #### C BC #### [facility] [address] [place] [address] Dr. Raul Pereira Nitrite Ql (U) Negative Normal NEGATIVE [facility] Comment on above: Performed By: #### C BC #### [facility] [address] [place] [address] Dr. Raul Pereira pH (U) 5.5 [pH] Normal 5-9 [facility] Comment on above: Performed By: #### C BC #### [facility] [address] [place] [address] Dr. Raul Pereira RBC NONE SEEN Abnormal 0-2 [facility] Comment on above: Performed By: #### C BC #### [facility] [address] [place] [address] Dr. Raul Pereira SPEC GRAVITY 1.030 Abnormal 1.005-<=1.02 5 [facility] Comment on above: Performed By: #### C BC #### [facility] [address] [place] [address] Dr. Raul Pereira UA PROTEIN Negative Normal NEGATIVE/ TRACE [facility] Comment on above: Performed By: #### C BC #### [facility] [address] [place] [address] Dr. Raul Pereira Urobilinogen Qn (U) 0.2 {Farrukh'U}/dL Normal 0.2 - 1. 0 [facility] Comment on above: Performed By: #### C BC #### [facility] [address] [place] [address] Dr. Raul Pereira WBC NONE SEEN Normal NONE SEEN The [facility] Comment on above: Performed By: #### C BC #### [facility] [address] [place] [address] Dr. Raul Pereira VITAMIN D 25 OHon 01-31-2023 VIT D 25-OH 40.8 ng/mL Normal [facility] Comment on above: Performed By: #### C VDTBH #### [facility] [address] [place] [address] Dr. Raul Pereira VIT D RANGES SEE BELOW Normal [facility] Comment on above: Result Comment: <20 ng/mL Vit D deficient 20 - <30 ng/mL Vit D insufficient 30 - 100 ng/mL Vit D sufficient >100 ng/mL Potential Toxicity Performed By: #### C VDTBH #### [facility] [address] [place] [address] Dr. Raul Pereira VC VENOUS REFLUX ALEXUS LMTon 0 01-30-2023 VC VENOUS REFLUX ALEXUS LMT Patient: RHETT MEJIA Exam Date: 01/30/2023 : 1960 Gender:F Ordering : DR NAPOLEON RAHMAN . Admission #: [id number] Family : Order #: [id number] CLICK HERE TO VIEW EXAM RADIOLOGY REPORT [...] thrombus. Compressibility: Normal. Flow: Deep venous reflux. Insurance Adviser:Mid/medial lower leg 4.3 mm with 0.8s reflux. [...] great saphenous vein along with dilated, incompetent legal archivist veins and numerous branch saphenous varicosities. 2. 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 Proximal closer with endovenous laser ablation may be beneficial followed by treatment with microfoam chemical ablation. Incompetent lower leg legal archivist vein which may contribute to patient's reflux; laser ablation is recommended. Dilated, incompetent branch saphenous varicosities which would benefit from microfoam chemical ablation. 3. Consultation for endovenous ablation is recommended. Dictated by: Jessica Lipscomb M.D. on 01/31/2023 at 09:46 Approved by: Jessica Lipscomb M.D. on 01/31/2023 at 09:51 Normal [facility] CBC AUTO DIFFon 01-13-2023 BASO # 0.0 103/ul Normal 0.0-0.1 [facility] Comment on above: Performed By: #### C BC #### [facility] [address] [address] [address] Raul Pereira Basophils/100 WBC (Bld) 0.5 % Normal 0.2-2.0 [facility] Comment on above: Performed By: #### C BC #### [facility] [address] [address] [address] Raul Pereira EO # 0.1 103/ul Normal 0.0-0.7 [facility] Comment on above: Performed By: #### C BC #### [facility] [address] [place] [address] Dr. Rual Pereira Eosinophils/100 WBC (Bld) 1.7 % Normal 0.9-7.0 [facility] Comment on above: Performed By: #### C BC #### [facility] [address] [place] [address] Dr. Raul Peerira Erythrocyte distribution width (RBC) [Ratio] 18.4 % Critically high 11.0-15.0 [facility] Comment on above: Performed By: #### C BC #### [facility] [address] [place] [address] Dr. Raul Pereira Hematocrit (Bld) [Volume fraction] 33.1 % Critically low 36.0-48.0 [facility] Comment on above: Performed By: #### C BC #### [facility] [address] [place] [address] Dr. Raul Pereira Hemoglobin (Bld) [Mass/Vol] 10.4 g/dL Critically low 12.0-16.0 [facility] Comment on above: Performed By: #### C BC #### [facility] [address] [place] [address] Dr. Raul Pereira IG # 0.03 10e3/ul Normal 0.00-0.03 [facility] Comment on above: Performed By: #### C BC #### [facility] [address] [place] [address] Dr. Raul Pereira IG % 0.4 % Normal 0.0-0.5 [facility] Comment on above: Performed By: #### C BC #### [facility] [address] [place] [address] Dr. Raul Pereira LYMPH # 1.9 103/ul Normal 1.2-3.8 [facility] Comment on above: Performed By: #### C BC #### [facility] [address] [place] [address] Dr. Raul Pereira Lymphocytes/100 WBC (Bld) 25.2 % Normal 20.5-60.0 [facility] Comment on above: Performed By: #### C BC #### [facility] [address] [place] [address] Dr. Raul Pereira MANUAL DIFF REQ NO Normal [facility] Comment on above: Performed By: #### C BC #### [facility] [address] [place] [address] Dr. Raul Pereira MCH (RBC) [Entitic mass] 24.1 pg Critically low 26.7-34.0 [facility] Comment on above: Performed By: #### C BC #### [facility] [address] [place] [address] Dr. Raul Pereira MCHC (RBC) [Mass/Vol] 31.4 g/dL Normal 29.9-35.2 [facility] Comment on above: Performed By: #### C BC #### [facility] [address] [place] [address] Dr. Raul Pereira MCV (RBC) [Entitic vol] 76.6 fL Critically low 81.0-99.0 [facility] Comment on above: Performed By: #### C BC #### [facility] [address] [place] [address] Dr. Raul Pereira MONO # 0.8 103/ul Normal 0.3-0.8 [facility] Comment on above: Performed By: #### C BC #### [facility] [address] [place] [address] Dr. Raul Pereira Monocytes/100 WBC (Bld) 10.7 % Normal 1.7-12.0 [facility] Comment on above: Performed By: #### C BC #### [facility] [address] [place] [address] Dr. Raul Pereira NEUT # 4.7 103/ul Normal 1.4-6.5 [facility] Comment on above: Performed By: #### C BC #### [facility] [address] [place] [address] Dr. Raul Pereira Neutrophils/100 WBC (Bld) 61.5 % Normal 43.0-75.0 [facility] Comment on above: Performed By: #### C BC #### [facility] [address] [place], [place] [address] Dr. Raul Pereira Platelet mean volume (Bld) [Entitic vol] 8.6 fL Critically low 9.5-13.5 [facility] Comment on above: Performed By: #### C BC #### [facility] [address] [place], [place] [address] Dr. Raul Pereira PLT 461 103/ul Critically high 150-450 [facility] Comment on above: Performed By: #### C BC #### [facility] [address] [place], [place] [address] Dr. Raul Pereira RBC 4.32 106/ul Normal 4.20-5.40 [facility] Comment on above: Performed By: #### C BC #### [facility] [address] [id number] [address] Raul Pereira WBC 7.6 103/ul Normal 4.0-11.0 [facility] Comment on above: Performed By: #### C BC #### [facility] [address] [address] [address] Raul Pereira FREE THYROXINE INDEX T7on FTI 2.10 Normal 1.30-4.50 [facility] Comment on above: Performed By: #### T 7, CMP, TSH, LIPID ####[facility] [address] [place], [place] [address]EcDr. Raul Pereira T3U 35.0 % Normal 30.0-39.0 [facility] Comment on above: Performed By: #### T 7, CMP, TSH, LIPID ####[facility] [address] [place], [place] [address]ZkDr. Raul Pereira T4 [Mass/Vol] 6.00 ug/dL Normal 4.80-13.90 [facility] Comment on above: Performed By: #### T 7, CMP, TSH, LIPID ####[facility] [address] [place], [place] [address]LgDr. Raul Pereira GLYCOHEMOGLOBIN A1Con 2022 ADA RECOMMENDATION SEE BELOW Normal [facility] Comment on above: Result Comment: ADA RECOMMENDED LIMIT 4.0 - 6.0 ADA THERAPEUTIC TARGET < 7.0 ACTION SUGGESTED > 7.0 Performed By: #### C VDTBH #### [facility] [address] [address] [address] Raul Pereira Glucose [Mass/Vol] 108 mg/dL Normal [facility] Comment on above: Performed By: #### C VDTBH #### [facility] [address] [address] [address] Raul Pereira HbA1c (Bld) [Mass fraction] 5.4 % Normal 4.5-6.2 [facility] Comment on above: Performed By: #### C VDTBH #### [facility] [address] [address] [address] Raul Pereira IRON AND TIBCon 01-13-2023 % SATURATION 3.5 % Normal [facility] Comment on above: Performed By: #### F ETIBC, B12FOL, VITAD ####[facility] [address] [address]DrLeann Pereira Iron [Mass/Vol] 18.0 ug/dL Critically low 50.0-170.0 [facility] Comment on above: Performed By: #### F ETIBC, B12FOL, VITAD ####[facility] [address] [place] [id number] Pereira TIBC DIRECT 513.0 ug/dL Critically high 250.0-450.0 [facility] Comment on above: Performed By: #### F ETIBC, B12FOL, VITAD ####[facility] [address] [address]Dr. Raul Pereira LIPID PROFILEon 01-13-2023 CHOL-HDL RATIO NORM SEE BELOW Normal [facility] Comment on above: Result Comment: 3.3 - 4.4 LOW RISK 4.4 - 7.1 AVERAGE RISK 7.1 - 11.0 MODERATE RISK >11.0 HIGH RISK Performed By: #### T 7, CMP, TSH, LIPID ####[facility] [address] [address]DrLeann Pereira Cholesterol [Mass/Vol] 190 mg/dL Normal <=200 [facility] Comment on above: Performed By: #### T 7, CMP, TSH, LIPID ####[facility] [address] [id number]. Raul Pereira Cholesterol in HDL [Mass/Vol] 71 mg/dL Critically high 40-60 [facility] Comment on above: Performed By: #### T 7, CMP, TSH, LIPID ####[facility] [address] [id number]. Raul Pereira Cholesterol in LDL [Mass/Vol] 104.6 mg/dL Normal [facility] Comment on above: Performed By: #### T 7, CMP, TSH, LIPID ####[facility] [address] [address]Dr. Raul Pereira Cholesterol.total/C holesterol in HDL [Mass ratio] 2.7 {ratio} Normal [facility] Comment on above: Performed By: #### T 7, CMP, TSH, LIPID ####[facility] [address] [id number]. Raul Pereira HDL NORMAL > or = 60 mg/dl - LO W CARDIOVASCULAR RISK <40 mg/dl - HIGH CARDIOVASCULAR RISK Normal [facility] Comment on above: Performed By: #### T 7, CMP, TSH, LIPID ####[facility] [address] [address]Dr. Raul Pereira LDL CALC NORMAL SEE BELOW Normal The [facility] Comment on above: Result Comment: <100 mg/dl OPTIMAL 100 - 129 mg/dl NEAR OR ABOVE OPTIMAL 130 - 159 mg/dl BORDERLINE HIGH 160 - 189 mg/dl HIGH >190 mg/dl VERY HIGH Performed By: #### T 7, CMP, TSH, LIPID ####[facility] [address] [place] [id number]. Raul Pereira Triglyceride [Mass/Vol] 72 mg/dL Normal <=150 [facility] Comment on above: Performed By: #### T 7, CMP, TSH, LIPID ####[facility] [address] [place] [id number]. Raul Pereira VLDL CALC 14.4 mg/dL Normal [facility] Comment on above: Performed By: #### T 7, CMP, TSH, LIPID ####[facility] [address] [address]Dr. Raul Pereira PROF 14(COMP METB)on 023 Albumin [Mass/Vol] 3.5 g/dL Normal 3.4-5.0 [facility] Comment on above: Performed By: #### T 7, CMP, TSH, LIPID ####[facility] [address] [address]Dr. Raul Pereira Albumin/Globulin [Mass ratio] 1.1 {ratio} Normal [facility] Comment on above: Performed By: #### T 7, CMP, TSH, LIPID ####[facility] [address] [address]Dr. Raul Pereira ALP [Catalytic activity/Vol] 92 U/L Normal 46-116 [facility] Comment on above: Performed By: #### T 7, CMP, TSH, LIPID ####[facility] [address] [place] [address]Dr. Raul Pereira ALT [Catalytic activity/Vol] 17 U/L Normal 14-59 [facility] Comment on above: Performed By: #### T 7, CMP, TSH, LIPID ####[facility] [address] [place] [address]Dr. Raul Pereira Anion gap [Moles/Vol] 10.0 mmol/L Normal [facility] Comment on above: Performed By: #### T 7, CMP, TSH, LIPID ####[facility] [address] [place] [address]Dr. Raul Pereira AST [Catalytic activity/Vol] 17 U/L Normal 15-37 [facility] Comment on above: Performed By: #### T 7, CMP, TSH, LIPID ####[facility] [address] [place] [address]Dr. Raul Pereira Bilirubin [Mass/Vol] 0.2 mg/dL Normal 0.2-1.0 [facility] Comment on above: Performed By: #### T 7, CMP, TSH, LIPID ####[facility] [facility] [address] [place] [address]Dr. Raul Pereira Calcium [Mass/Vol] 8.8 mg/dL Normal 8.5-10.1 [facility] Comment on above: Performed By: #### T 7, CMP, TSH, LIPID ####[facility] [address] [place] [address]Dr. Raul Pereira Chloride [Moles/Vol] 101 mmol/L Normal 98-107 [facility] Comment on above: Performed By: #### T 7, CMP, TSH, LIPID ####[facility] [address] [place] [address]Dr. Raul Pereira CO2 [Moles/Vol] 29.4 mmol/L Normal 21.0-32.0 [facility] Comment on above: Performed By: #### T 7, CMP, TSH, LIPID ####[facility] [address] [place] [address]Dr. Raul Pereira Creatinine [Mass/Vol] 0.50 mg/dL Critically low 0.55-1.02 [facility] Comment on above: Performed By: #### T 7, CMP, TSH, LIPID ####[facility] [address] [place], [place] [address]Dr. Raul Pereira EGFR-AF EGYPTIAN >60 Normal >=60 [facility] Comment on above: Performed By: #### T 7, CMP, TSH, LIPID ####[facility] [address] [place] [address]Dr. Raul Pereira EGFR-NON AF EGYPTIAN >60 Normal >=60 [facility] Comment on above: Performed By: #### T 7, CMP, TSH, LIPID ####[facility] [address] [place] [address]Dr. Raul Pereira Globulin (S) [Mass/Vol] 3.2 g/dL Normal [facility] Comment on above: Performed By: #### T 7, CMP, TSH, LIPID ####[facility] [address] [place] [address]Dr. Raul Pereira Glucose [Mass/Vol] 88 mg/dL Normal 74-106 [facility] Comment on above: Performed By: #### T 7, CMP, TSH, LIPID ####[facility] [address] [place] [address]Dr. Raul Pereira Potassium [Moles/Vol] 4.4 mmol/L Normal 3.5-5.1 [facility] Comment on above: Performed By: #### T 7, CMP, TSH, LIPID ####[facility] [address] [place] [address]Dr. Raul Pereira Protein [Mass/Vol] 6.7 g/dL Normal 6.4-8.2 [facility] Comment on above: Performed By: #### T 7, CMP, TSH, LIPID ####[facility] [address] [place] [address]Dr. Raul Pereira Sodium [Moles/Vol] 136 mmol/L Normal 136-145 [facility] Comment on above: Performed By: #### T 7, CMP, TSH, LIPID ####[facility] [address] [place] [address]Dr. Raul Pereira Urea nitrogen [Mass/Vol] 12.0 mg/dL Normal 7.0-18.0 [facility] Comment on above: Performed By: #### T 7, CMP, TSH, LIPID ####[facility] [address] [place] [address]Dr. Raul Pereira Urea nitrogen/Creatinine [Mass ratio] 24.0 mg/mg Normal [facility] Comment on above: Performed By: #### T 7, CMP, TSH, LIPID ####[facility] [address] [place] [address]Dr. Raul Randall TSHon 01-13-2023 TSH 1.623 uIU/mL Normal 0.358-3.740 [facility] Comment on above: Performed By: #### T 7, CMP, TSH, LIPID ####[facility] [address] [place] [address]Dr. Raul Randall VIT B12 AND FOLATEon 023 Cobalamin (Vitamin B12) [Mass/Vol] 872.0 pg/mL Normal 193.0-986.0 [facility] Comment on above: Performed By: #### F ETIBC, B12FOL, VITAD ####[facility] [address] [place] [address]Dr. Raul Pereira FOLATE 21.20 ng/mL Normal 8.60-58.90 [facility] Comment on above: Performed By: #### F ETIBC, B12FOL, VITAD ####[facility] [address] [place] [address]Dr. Raul Pereira VITAMIN D 25 OHon 01-13-2023 VIT D 25-OH 40.6 ng/mL Normal [facility] Comment on above: Performed By: #### F ETIBC, B12FOL, VITAD ####[facility] [address] [place] [address]Dr. Raul Pereira VIT D RANGES SEE BELOW Normal [facility] Comment on above: Result Comment: <20 ng/mL Vit D deficient 20 - <30 ng/mL Vit D insufficient 30 - 100 ng/mL Vit D sufficient >100 ng/mL Potential Toxicity Performed By: #### F ETIBC, B12FOL, VITAD ####[facility] [address] [place] [address]Dr. Raul Pereira CBC AUTO DIFFon 01-10-2023 BASO # 0.1 103/ul Normal 0.0-0.1 [facility] Comment on above: Performed By: #### C VDTBH #### [facility] [address] [place] [address] Dr. Raul Pereira Basophils/100 WBC (Bld) 0.6 % Normal 0.2-2.0 [facility] Comment on above: Performed By: #### C VDTBH #### [facility] [address] [place] [address] Dr. Raul Pereira EO # 0.1 103/ul Normal 0.0-0.7 [facility] Comment on above: Performed By: #### C VDTBH #### [facility] [address] [place] [address] Dr. Raul Pereira Eosinophils/100 WBC (Bld) 1.3 % Normal 0.9-7.0 [facility] Comment on above: Performed By: #### C VDTBH #### [facility] [address] [place] [address] Dr. Raul Pereira Erythrocyte distribution width (RBC) [Ratio] 18.4 % Critically high 11.0-15.0 [facility] Comment on above: Performed By: #### C VDTBH #### [facility] [address] [place] [address] Dr. Raul Pereira Hematocrit (Bld) [Volume fraction] 37.8 % Normal 36.0-48.0 [facility] Comment on above: Performed By: #### C VDTBH #### [facility] [address] [place] [address] Dr. Raul Pereira Hemoglobin (Bld) [Mass/Vol] 11.6 g/dL Critically low 12.0-16.0 [facility] Comment on above: Performed By: #### C VDTBH #### [facility] [address] [place] [address] Dr. Raul Pereira IG # 0.02 10e3/ul Normal 0.00-0.03 [facility] Comment on above: Performed By: #### C VDTBH #### [facility] [address] [place] [address] Dr. Raul Pereira IG % 0.3 % Normal 0.0-0.5 [facility] Comment on above: Performed By: #### C VDTBH #### [facility] [address] [place] [address] Dr. Raul Pereira LYMPH # 1.7 103/ul Normal 1.2-3.8 [facility] Comment on above: Performed By: #### C VDTBH #### [facility] [address] [place] [address] Dr. Raul Pereira Lymphocytes/100 WBC (Bld) 21.0 % Normal 20.5-60.0 [facility] Comment on above: Performed By: #### C VDTBH #### [facility] [address] [place] [address] Dr. Raul Pereira MANUAL DIFF REQ NO Normal [facility] Comment on above: Performed By: #### C VDTBH #### [facility] [address] [place] [address] Dr. Raul Pereira MCH (RBC) [Entitic mass] 24.1 pg Critically low 26.7-34.0 [facility] Comment on above: Performed By: #### C VDTBH #### [facility] [address] [place] [address] Dr. Raul Pereira MCHC (RBC) [Mass/Vol] 30.7 g/dL Normal 29.9-35.2 [facility] Comment on above: Performed By: #### C VDTBH #### [facility] [address] [place] [address] Dr. Raul Pereira MCV (RBC) [Entitic vol] 78.6 fL Critically low 81.0-99.0 [facility] Comment on above: Performed By: #### C VDTBH #### [facility] [address] [place] [address] Dr. Raul Pereira MONO # 0.6 103/ul Normal 0.3-0.8 [facility] Comment on above: Performed By: #### C VDTBH #### [facility] [address] [place] [address] Dr. Raul Pereira Monocytes/100 WBC (Bld) 7.5 % Normal 1.7-12.0 [facility] Comment on above: Performed By: #### C VDTBH #### [facility] [address] [place] [address] Dr. Raul Pereira NEUT # 5.4 103/ul Normal 1.4-6.5 [facility] Comment on above: Performed By: #### C VDTBH #### [facility] [address] [place] [address] Dr. Raul Pereira Neutrophils/100 WBC (Bld) 69.3 % Normal 43.0-75.0 [facility] Comment on above: Performed By: #### C VDTBH #### [facility] [address] [address] [address] Raul Pereira Platelet mean volume (Bld) [Entitic vol] 9.0 fL Critically low 9.5-13.5 [facility] Comment on above: Performed By: #### C VDTBH #### [facility] [address] [address] [address] Raul Pereira PLT 516 103/ul Critically high 150-450 [facility] Comment on above: Performed By: #### C VDTBH #### [facility] [address] [address] [address] Raul Pereira RBC 4.81 106/ul Normal 4.20-5.40 [facility] Comment on above: Performed By: #### C VDTBH #### [facility] [address] [address] [address] Raul Pereira WBC 7.8 103/ul Normal 4.0-11.0 [facility] Comment on above: Performed By: #### C VDTBH #### [facility] [address] [address] [address] Raul Pereira CULTURE BLOODon 01-10-2023 Microscopic examination of blood, culture Culture Observations: NO GROWTH AT 5 DAYS. Normal [facility] Comment on above: Performed By: #### B [id number] #### [facility] [address] [address] [address] Raul Pereira Microscopic examination of blood, culture Culture Observations: NO GROWTH AT 5 DAYS. Normal [facility] Comment on above: Performed By: #### B LDCX1 ####[facility] [address] [place] [id number]. Raul Pereira PROF 14(COMP METB)on 023 Albumin [Mass/Vol] 3.7 g/dL Normal 3.4-5.0 [facility] Comment on above: Performed By: #### C BC #### [facility] [address] [address] [address] Raul Pereira Albumin/Globulin [Mass ratio] 0.9 {ratio} Normal [facility] Comment on above: Performed By: #### C BC #### [facility] [address] [place] [address] Dr. Raul Pereira ALP [Catalytic activity/Vol] 105 U/L Normal 46-116 [facility] Comment on above: Performed By: #### C BC #### [facility] [address] [address] [address] Ralu Pereira ALT [Catalytic activity/Vol] 18 U/L Normal 14-59 [facility] Comment on above: Performed By: #### C BC #### [facility] [address] [place] [address] Dr. Raul Pereira Anion gap [Moles/Vol] 10.8 mmol/L Normal [facility] Comment on above: Performed By: #### C BC #### [facility] [address] [place] [address] Dr. Raul Pereira AST [Catalytic activity/Vol] 21 U/L Normal 15-37 [facility] Comment on above: Performed By: #### C BC #### [facility] [address] [address] [address] Raul Pereira Bilirubin [Mass/Vol] 0.3 mg/dL Normal 0.2-1.0 [facility] Comment on above: Performed By: #### C BC #### [facility] [address] [place] [address] Dr. Raul Pereira Calcium [Mass/Vol] 9.1 mg/dL Normal 8.5-10.1 [facility] Comment on above: Performed By: #### C BC #### [facility] [address] [address] [address] Raul Pereira Chloride [Moles/Vol] 100 mmol/L Normal 98-107 [facility] Comment on above: Performed By: #### C BC #### [facility] [address] [address] [address] Raul Pereira CO2 [Moles/Vol] 30.8 mmol/L Normal 21.0-32.0 [facility] Comment on above: Performed By: #### C BC #### [facility] [address] [address] [address] Raul Pereira Creatinine [Mass/Vol] 0.58 mg/dL Normal 0.55-1.02 [facility] Comment on above: Performed By: #### C BC #### [facility] [address] [place] [address] Dr. Raul Pereira EGFR-AF EGYPTIAN >60 Normal >=60 [facility] Comment on above: Performed By: #### C BC #### [facility] [address] [address] [address] Raul Pereira EGFR-NON AF EGYPTIAN >60 Normal >=60 [facility] Comment on above: Performed By: #### C BC #### [facility] [address] [place] [address] Dr. Raul Pereira Globulin (S) [Mass/Vol] 4.1 g/dL Normal [facility] Comment on above: Performed By: #### C BC #### [facility] [address] [place] [address] Dr. Raul Pereira Glucose [Mass/Vol] 86 mg/dL Normal 74-106 [facility] Comment on above: Performed By: #### C BC #### [facility] [address] [place] [address] Dr. Raul Pereira Potassium [Moles/Vol] 4.6 mmol/L Normal 3.5-5.1 [facility] Comment on above: Performed By: #### C BC #### [facility] [address] [place] [address] Dr. Raul Pereira Protein [Mass/Vol] 7.8 g/dL Normal 6.4-8.2 [facility] Comment on above: Performed By: #### C BC #### [facility] [address] [place] [address] Dr. Raul Pereira Sodium [Moles/Vol] 137 mmol/L Normal 136-145 [facility] Comment on above: Performed By: #### C BC #### [facility] [address] [place] [address] Dr. Raul Pereira Urea nitrogen [Mass/Vol] 9.0 mg/dL Normal 7.0-18.0 [facility] Comment on above: Performed By: #### C BC #### [facility] [address] [address] [address] Raul Pereira Urea nitrogen/Creatinine [Mass ratio] 15.5 mg/mg Normal [facility] Comment on above: Performed By: #### C BC #### [facility] [address] [address] [address] Raul Pereira US PREMA DOP LEG RTon 01-10-20 US PREMA DOP LEG RT EXAMINATION: US PREMA DOP LEG RT HISTORY: Cellulitis , [...] JESSICA LIPSCOMB Date: 2023-01-10 10:43 Normal [facility] Covid-19 PCR (CVDTB)on 11-18 SARS-CoV-2 (COVID-19) RNA IMELDA+probe Ql (Unsp spec) Not detected Normal NOT DETECTED [facility] Comment on above: Result Comment: This test is not yet approved or cleared by the [place] FDA. When there are no FDA-approved or cleared tests available, and other criteria are met, FDA can make tests available under an emergency access mechanism called an Emergency Use Authorization (EUA). The EUA for this test is supported by the Nursing Director of Health and Human Service's (HHS's) declaration [...] SARS-CoV-2. Performed By: #### C VDTBH #### [facility] [address] [place] [address] Dr. Raul Pereira CALCIUMon 12-03-2022 Calcium [Mass/Vol] 9.7 mg/dL Normal 8.5-10.1 [facility] Comment on above: Performed By: #### C VDTBH #### [facility] [address] [address] [address] Raul Pereira CREATININEon 12-03-2022 Creatinine [Mass/Vol] 0.53 mg/dL Critically low 0.55-1.02 [facility] Comment on above: Performed By: #### C BC #### [facility] [address] [place] [address] Dr. Raul Pereira EGFR-AF EGYPTIAN >60 Normal >=60 [facility] Comment on above: Performed By: #### C BC #### [facility] [address] [place] [address] Dr. Raul Pereira EGFR-NON AF EGYPTIAN >60 Normal >=60 [facility] Comment on above: Performed By: #### C BC #### [facility] [address] [place] [address] Dr. Raul Pereira Office Visiton 08-27-2022 Follow-up visit [id number] Lex Mejia L 1960 F Date Provider Department Center 08/27/2022 Nella-[facility]ICAELA GUPT[facility] Fl No family history on file Level of Service:61706 [place] POSTOP FOLLOW UP VISIT RELATED TO ORIGINAL PX Reason for Visit and Comments: Post-op [483] - Rhett is here today for a post op visit, s/p 08/16/22 LAP ZEESHAN Normal [facility] HISTOLOGY - TISSUE EXAMon LAB AP CASE REPORT Normal [facility] Comment on above: Order Comment: Pre-o p diagnosis:Calculus of gallbladder without cholecystitis without obstruction [K80.20] Result Comment: Surg ical Pathology Case: [id number] Authorizing Provider: Micaela Gupta MD Collected: 08/16/2022 0842 [facility] Main Operating [facility] Received: 08/16/2022 1001 Pathologist: Maricruz Warren MD Specimen: Gallbladder, GALLBLADDER Performed By: #### L [id number] ####[facility] (BEAKER)[address] [place] [address] LAB AP CLINICAL INFORMATION Normal [facility] Comment on above: Order Comment: Pre-o p diagnosis:Calculus of gallbladder without cholecystitis without obstruction [K80.20] Result Comment: Pre- op diagnosis: Calculus of gallbladder without cholecystitis without obstruction [K80.20] Performed By: #### L [id number] ####[facility] [facility] [facility] [place] [address] LAB AP GROSS DESCRIPTION A. Gallbladder. Normal [facility] Comment on above: Order Comment: Pre-o p [...] 0.1 to 0.2 cm in maximum thickness. Materials Scheduler sections submitted as follows: Cassette 1: Cystic duct resection margin and neck Cassette 2: Body and fundus Ankit Koroma, Pathologists' Supervisor Vendor Quality Performed By: #### L [id number] ####[facility] (BEAKER)[address] [facility] [place] [address] LAB AP MICROSCOPIC DESCRIPTION Microscopic examination performed Normal [facility] Comment on above: Order Comment: Pre-o p diagnosis:Calculus of gallbladder without cholecystitis without obstruction [K80.20] Performed By: #### L [id number] ####[facility] (BEAKER)[address] [place] [address] LAB AP REPORT FINAL DIAGNOSIS [facility] Comment on above: Order Comment: Pre-o p diagnosis:Calculus of gallbladder without cholecystitis without obstruction [K80.20] Result Comment: Gall bladder, cholecystectomy: - Cholelithiasis and cholesterolosis. Performed By: #### L [id number] ####[facility] (BEAKER)[address] [place] [address] [facility] 08-16-2022 HP ----- ----- Attestation signed by Micaela Gupta MD at 08/16/2022 7:34 AM Attending Physician Statement I have discussed the case, including pertinent history and exam findings with Dr. Del Angel, surgical consultant and have personally seen the patient. I agree with the assessment, plan and orders as documented. [phone] pager [phone] phone ----- [facility] General Surgery HISTORY & PHYSICAL Chief [...] History: Diagnosis Date Anxiety Arthritis Chronic bronchitis (CMS/HCC) Depression DVT (deep venous thrombosis) ([facility]) Gall bladder disease GERD (gastroesophageal reflux [...] Component Value (more content not included)... Normal [facility] NURSNOTEon 08-16-2022 NURSNOTE Stable. Pain minimal . DC criteria met. IV dc'd and patient getting dressed. 1155 Stable for discharge. Normal [facility] NURSNOTE DC instructions revi ewed with patient and Granddaughter, allowed time for questions, copy given. Normal [facility] NURSNOTE Report rec'd and car e assumed. No assessment changes. Pain minimal. Normal [facility] NURSNOTE 0920 Recovery called. [facility] OPNOTE CHOLECYSTECTOMY, LAPAROSCOPIC Operative Note Date: 08/16/2022 [facility] Name: Rhett Mejia, : 1960, Diagnosis Pre-op Diagnosis * Calculus of gallbladder without cholecystitis without obstruction [K80.20] * History of gastric bypass [Z98.84] Post-op Diagnosis * Calculus of gallbladder without cholecystitis without obstruction [K80.20] * History of gastric bypass [Z98.84] Procedures CHOLECYSTECTOMY, LAPAROSCOPIC [id number] - [place] LAPS SURG CHOLECYSTECTOMY W/CHOLANGIOGRAPHY Surgeons * Micaela Gupta - Primary * Robyn Del Angel Procedure Summary Anesthesia: General ASA: III Estimated Blood Loss: 10 mL Total IV Fluids: 1000 mL Drains: * None in log * Specimens ID Source Type Tests Collected By Collected At Frozen? Priority Lab ID A Gallbladder Tissue HISTOLOGY - TISSUE EXAM Micaela Gupta MD 08/16/22 0842 No [id number] Description: GALLBLADDER Staff: Academic Adviser: Zeny De La Cruz RN Scrub Person: [...] PACU - hemodynamically stable. Condition: stable Normal [facility] POCT GLUCOSE METER UNSOLICIT ED RESULTSon 08-16-2022 Glucose [Mass/Vol] 88 mg/dL Normal 70-105 [facility] Comment on above: Result Comment: epaw low Performed By: #### L [id number] #### [facility] ([facility]) [address] [place] [address] POCT SARS-COV-2 PCRon 2021 POC SARS-COV-2 ANTIGEN Negative Normal Negative [facility] Comment on above: Result Comment: ID N [...] Certificate of Accreditation. Performed By: #### L [id number] ####[facility] (BEAKER)[address] [place] [address] Orders Onlyon 08-14-2022 Orders Only [id number] Lex Mejia rri L 1960 F Date Provider Department Center 08/14/2022 [id number], HISTORICAL [facility] Medical C No family history on file Normal [facility] [id number] 08-13-2022 [id number] NPO after [place] Must have a cmv driver to take you home and someone to stay for 24 hours after surgery. No jewelry. Hold the meds we spoke about: NSAIDS Take the meds we spoke about w/a sip of water DOS: GAPAPENTIN, NEXIUM, INHALER, CYMBALTA Bring insurance card and ID. LABS AND COVID TO BE DONE IN [place]. Normal [facility] CBC AUTO DIFFon 08-13-2022 BASO # 0.0 103/ul Normal 0.0-0.1 [facility] Comment on above: Performed By: #### C BC #### [facility] [address] [place], [place] [address] Dr. Raul Pereira Basophils/100 WBC (Bld) 0.4 % Normal 0.2-2.0 [facility] Comment on above: Performed By: #### C BC #### [facility] [address] [place] [address] Dr. Raul Pereira EO # 0.1 103/ul Normal 0.0-0.7 [facility] Comment on above: Performed By: #### C BC #### [facility] [address] [place] [address] Dr. Raul Pereira Eosinophils/100 WBC (Bld) 1.2 % Normal 0.9-7.0 [facility] Comment on above: Performed By: #### C BC #### [facility] [address] [place] [address] Dr. Raul Pereira Erythrocyte distribution width (RBC) [Ratio] 18.6 % Critically high 11.0-15.0 [facility] Comment on above: Performed By: #### C BC #### [facility] [address] [place] [address] Dr. Raul Pereira Hematocrit (Bld) [Volume fraction] 39.1 % Normal 36.0-48.0 [facility] Comment on above: Performed By: #### C BC #### [facility] [address] [place] [address] Dr. Raul Pereira Hemoglobin (Bld) [Mass/Vol] 12.5 g/dL Normal 12.0-16.0 [facility] Comment on above: Performed By: #### C BC #### [facility] [facility] [address] [place] [address] Dr. Raul Pereira IG # 0.03 10e3/ul Normal 0.00-0.03 [facility] Comment on above: Performed By: #### C BC #### [facility] [address] [place] [address] Dr. Raul Pereira IG % 0.4 % Normal 0.0-0.5 [facility] Comment on above: Performed By: #### C BC #### [facility] [address] [place] [address] Dr. Raul Pereira LYMPH # 2.0 103/ul Normal 1.2-3.8 [facility] Comment on above: Performed By: #### C BC #### [facility] [address] [place] [address] Dr. Raul Pereira Lymphocytes/100 WBC (Bld) 27.2 % Normal 20.5-60.0 [facility] Comment on above: Performed By: #### C BC #### [facility] [address] [place] [address] Dr. Raul Pereira MANUAL DIFF REQ NO Normal [facility] Comment on above: Performed By: #### C BC #### [facility] [address] [place] [address] Dr. Raul Pereira MCH (RBC) [Entitic mass] 27.2 pg Normal 26.7-34.0 [facility] Comment on above: Performed By: #### C BC #### [facility] [address] [place] [address] Dr. Raul Pereira MCHC (RBC) [Mass/Vol] 32.0 g/dL Normal 29.9-35.2 [facility] Comment on above: Performed By: #### C BC #### [facility] [address] [place] [address] Dr. Raul Pereira MCV (RBC) [Entitic vol] 85.2 fL Normal 81.0-99.0 [facility] Comment on above: Performed By: #### C BC #### [facility] [address] [place] [address] Dr. Raul Pereira MONO # 0.7 103/ul Normal 0.3-0.8 [facility] Comment on above: Performed By: #### C BC #### [facility] [address] [place] [address] Dr. Raul Pereira Monocytes/100 WBC (Bld) 9.3 % Normal 1.7-12.0 [facility] Comment on above: Performed By: #### C BC #### [facility] [address] [place] [address] Dr. Raul Pereira NEUT # 4.4 103/ul Normal 1.4-6.5 [facility] Comment on above: Performed By: #### C BC #### [facility] [address] [place] [address] Dr. Raul Pereira Neutrophils/100 WBC (Bld) 61.5 % Normal 43.0-75.0 [facility] Comment on above: Performed By: #### C BC #### [facility] [address] [place] [address] Dr. Raul Pereira Platelet mean volume (Bld) [Entitic vol] 8.7 fL Critically low 9.5-13.5 [facility] Comment on above: Performed By: #### C BC #### [facility] [address] [place] [address] Dr. Raul Pereira PLT 387 103/ul Normal 150-450 [facility] Comment on above: Performed By: #### C BC #### [facility] [address] [place] [address] Dr. Raul Pereira RBC 4.59 106/ul Normal 4.20-5.40 [facility] Comment on above: Performed By: #### C BC #### [facility] [address] [place] [address] Dr. Raul Pereira WBC 7.2 103/ul Normal 4.0-11.0 [facility] Comment on above: Performed By: #### C BC #### [facility] [address] [place] [address] Dr. Raul Pereira Covid-19 PCR (CVDTB)on 07-19 SARS-CoV-2 (COVID-19) RNA IMELDA+probe Ql (Unsp spec) Not detected Normal NOT DETECTED [facility] Comment on above: Result Comment: This test is not yet approved or cleared by the [place] FDA. When there are no FDA-approved or cleared tests available, and other criteria are met, FDA can make tests available under an emergency access mechanism called an Emergency Use Authorization (EUA). The EUA for this test is supported by the [place] Director of Health and Human Service's (HHS's) declaration [...] SARS-CoV-2. Performed By: #### C VDTB #### [facility] [address] [place] [address] Dr. Raul Pereira PROF CHEM 8 (BAS METB)on Anion gap [Moles/Vol] 11.5 mmol/L Normal [facility] Comment on above: Performed By: #### C BC #### [facility] [address] [place] [address] Dr. Raul Pereira Calcium [Mass/Vol] 9.5 mg/dL Normal 8.5-10.1 [facility] Comment on above: Performed By: #### C BC #### [facility] [address] [place] [address] Dr. Raul Pereira Chloride [Moles/Vol] 101 mmol/L Normal 98-107 [facility] Comment on above: Performed By: #### C BC #### [facility] [address] [place] [address] Dr. Raul Pereira CO2 [Moles/Vol] 29.6 mmol/L Normal 21.0-32.0 [facility] Comment on above: Performed By: #### C BC #### [facility] [address] [place] [address] Dr. Raul Pereira Creatinine [Mass/Vol] 0.65 mg/dL Normal 0.55-1.02 [facility] Comment on above: Performed By: #### C BC #### [facility] [address] [place] [address] Dr. Raul Pereira EGFR-AF EGYPTIAN >60 Normal >=60 [facility] Comment on above: Performed By: #### C BC #### [facility] [address] [place] [address] Dr. Raul Pereira EGFR-NON AF EGYPTIAN >60 Normal >=60 [facility] Comment on above: Performed By: #### C BC #### [facility] [address] [address] [address] Raul Preeira Glucose [Mass/Vol] 104 mg/dL Normal 74-106 [facility] Comment on above: Performed By: #### C BC #### [facility] [address] [address] [address] Raul Pereira Potassium [Moles/Vol] 4.1 mmol/L Normal 3.5-5.1 [facility] Comment on above: Performed By: #### C BC #### [facility] [address] [address] [address] Raul Pereira Sodium [Moles/Vol] 138 mmol/L Normal 136-145 [facility] Comment on above: Performed By: #### C BC #### [facility] [address] [address] [address] Raul Pereira Urea nitrogen [Mass/Vol] 11.0 mg/dL Normal 7.0-18.0 [facility] Comment on above: Performed By: #### C BC #### [facility] [address] [address] [address] Raul Pereira Urea nitrogen/Creatinine [Mass ratio] 16.9 mg/mg Normal [facility] Comment on above: Performed By: #### C BC #### [facility] [address] [address] [address] Raul Pereira Office Visiton 08-06-2022 Follow-up visit [id number] Lex Mejia rrmonica L 1960 F Date Provider Department Center 08/06/2022 [facility] Fl No family history on file Level of Service:22324 NC OFFICE/OUTPATIENT ESTABLISHED LOW MDM 20-29 MIN Reason for Visit and Comments: Consult [484] - Rhett is here for a gallbladder consult. Rhett also c/o swelling in right leg with pain in calf. Normal [facility] PROTIME-INRon 08-06-2022 INR IN PPP BY COAGULATION ASSAY 0.89 Low 0.90-1.10 [facility] Comment on above: Result Comment: ACCC P [...] 1995;108:231S-246S. Performed By: #### L [id number] #### [facility] [address] [place] [address] PROTHROMBIN TIME (PT) IN PPP BY COAGULATION ASSAY 12.1 Seconds Low 12.3-14.8 [facility] Comment on above: Performed By: #### L [id number] #### [facility] ([facility]) [address] [place] [address] CT ABD/PELVIS WO CONon 07-24 CT ABD/PELVIS [...] by: JESSICA LIPSCOMB Date: 2022-07-24 17:21 Normal [facility] NM HEPATOBILIARY SCAN W EFon 07-18-2022 CA HEPATOBILIARY SCAN W EF EXAMINATION: NM HEPATOBILIARY [...] by: MEAGHAN SKINNER Date: 2022-07-18 10:22 Normal [facility] CBC AUTO DIFFon 07-13-2022 BASO # 0.0 103/ul Normal 0.0-0.1 [facility] Comment on above: Performed By: #### C BC #### [facility] [address] [address] [address] Raul Pereira Basophils/100 WBC (Bld) 0.5 % Normal 0.2-2.0 [facility] Comment on above: Performed By: #### C BC #### [facility] [address] [address] [address] Raul Pereira EO # 0.1 103/ul Normal 0.0-0.7 [facility] Comment on above: Performed By: #### C BC #### [facility] [address] [address] [address] Raul Pereira Eosinophils/100 WBC (Bld) 0.9 % Normal 0.9-7.0 [facility] Comment on above: Performed By: #### C BC #### [facility] [address] [address] [address] Raul Pereira Erythrocyte distribution width (RBC) [Ratio] 20.2 % Critically high 11.0-15.0 [facility] Comment on above: Performed By: #### C BC #### [facility] [address] [address] [address] Raul Pereira Hematocrit (Bld) [Volume fraction] 41.1 % Normal 36.0-48.0 [facility] Comment on above: Performed By: #### C BC #### [facility] [address] [address] [address] Raul Pereira Hemoglobin (Bld) [Mass/Vol] 13.2 g/dL Normal 12.0-16.0 [facility] Comment on above: Performed By: #### C BC #### [facility] [address] [address] [address] Raul Pereira IG # 0.05 10e3/ul Critically high 0.00-0.03 [facility] Comment on above: Performed By: #### C BC #### [facility] [address] [address] [address] Raul Pereira IG % 0.6 % Critically high 0.0-0.5 [facility] Comment on above: Performed By: #### C BC #### [facility] [address] [place] [address] Dr. Raul Pereira LYMPH # 1.4 103/ul Normal 1.2-3.8 [facility] Comment on above: Performed By: #### C BC #### [facility] [address] [place] [address] Dr. Raul Pereira Lymphocytes/100 WBC (Bld) 17.3 % Critically low 20.5-60.0 [facility] Comment on above: Performed By: #### C BC #### [facility] [address] [place] [address] Dr. Raul Pereira MANUAL DIFF REQ NO Normal [facility] Comment on above: Performed By: #### C BC #### [facility] [address] [place] [address] Dr. Raul Periera MCH (RBC) [Entitic mass] 27.3 pg Normal 26.7-34.0 [facility] Comment on above: Performed By: #### C BC #### [facility] [address] [place] [address] Dr. Raul Pereira MCHC (RBC) [Mass/Vol] 32.1 g/dL Normal 29.9-35.2 [facility] Comment on above: Performed By: #### C BC #### [facility] [address] [place] [address] Dr. Raul Pereira MCV (RBC) [Entitic vol] 84.9 fL Normal 81.0-99.0 [facility] Comment on above: Performed By: #### C BC #### [facility] [address] [place] [address] Dr. Raul Pereira MONO # 0.8 103/ul Normal 0.3-0.8 [facility] Comment on above: Performed By: #### C BC #### [facility] [address] [place] [address] Dr. Raul Pereira Monocytes/100 WBC (Bld) 10.0 % Normal 1.7-12.0 [facility] Comment on above: Performed By: #### C BC #### [facility] [address] [place] [address] Dr. Raul Pereira NEUT # 5.8 103/ul Normal 1.4-6.5 [facility] Comment on above: Performed By: #### C BC #### [facility] [address] [place] [address] Dr. Raul Pereira Neutrophils/100 WBC (Bld) 70.7 % Normal 43.0-75.0 [facility] Comment on above: Performed By: #### C BC #### [facility] [address] [place] [address] Dr. Raul Pereira Platelet mean volume (Bld) [Entitic vol] 9.1 fL Critically low 9.5-13.5 [facility] Comment on above: Performed By: #### C BC #### [facility] [address] [place] [address] Dr. Raul Pereira PLT 358 103/ul Normal 150-450 [facility] Comment on above: Performed By: #### C BC #### [facility] [address] [place] [address] Dr. Raul Pereira RBC 4.84 106/ul Normal 4.20-5.40 [facility] Comment on above: Performed By: #### C BC #### [facility] [address] [place] [address] Dr. Raul Pereira WBC 8.1 103/ul Normal 4.0-11.0 [facility] Comment on above: Performed By: #### C BC #### [facility] [address] [place] [address] Dr. Raul Pereira LIPASEon 07-13-2022 Lipase [Catalytic activity/Vol] 47.0 U/L Critically low 73.0-393.0 [facility] Comment on above: Performed By: #### C BC #### [facility] [address] [place] [address] Dr. Raul Pereira PROF 14(COMP METB)on 022 Albumin [Mass/Vol] 3.6 g/dL Normal 3.4-5.0 [facility] Comment on above: Performed By: #### C BC #### [facility] [address] [address] [address] Raul Pereira Albumin/Globulin [Mass ratio] 1.0 {ratio} Normal [facility] Comment on above: Performed By: #### C BC #### [facility] [address] [place] [address] Dr. Raul Pereira ALP [Catalytic activity/Vol] 88 U/L Normal 46-116 [facility] Comment on above: Performed By: #### C BC #### [facility] [address] [place] [address] Dr. Raul Pereira ALT [Catalytic activity/Vol] 16 U/L Normal 14-59 [facility] Comment on above: Performed By: #### C BC #### [facility] [address] [place] [address] Dr. Raul Pereira Anion gap [Moles/Vol] 13.2 mmol/L Normal [facility] Comment on above: Performed By: #### C BC #### [facility] [address] [place] [address] Dr. Raul Pereira AST [Catalytic activity/Vol] 15 U/L Normal 15-37 [facility] Comment on above: Performed By: #### C BC #### [facility] [address] [place] [address] Dr. Raul Pereira Bilirubin [Mass/Vol] 0.2 mg/dL Normal 0.2-1.0 [facility] Comment on above: Performed By: #### C BC #### [facility] [address] [place] [address] Dr. Raul Pereira Calcium [Mass/Vol] 9.5 mg/dL Normal 8.5-10.1 [facility] Comment on above: Performed By: #### C BC #### [facility] [address] [place] [address] Dr. Raul Pereira Chloride [Moles/Vol] 100 mmol/L Normal 98-107 [facility] Comment on above: Performed By: #### C BC #### [facility] [address] [place], [place] [address] Dr. Raul Pereira CO2 [Moles/Vol] 28.0 mmol/L Normal 21.0-32.0 [facility] Comment on above: Performed By: #### C BC #### [facility] [address] [place] [address] Dr. Raul Pereira Creatinine [Mass/Vol] 0.78 mg/dL Normal 0.55-1.02 [facility] Comment on above: Performed By: #### C BC #### [facility] [address] [place] [address] Dr. Raul Pereira EGFR-AF EGYPTIAN >60 Normal >=60 [facility] Comment on above: Performed By: #### C BC #### [facility] [address] [place] [address] Dr. Raul Pereira EGFR-NON AF EGYPTIAN >60 Normal >=60 [facility] Comment on above: Performed By: #### C BC #### [facility] [address] [place] [address] Dr. Raul Pereira Globulin (S) [Mass/Vol] 3.6 g/dL Normal [facility] Comment on above: Performed By: #### C BC #### [facility] [address] [place] [address] Dr. Raul Pereira Glucose [Mass/Vol] 86 mg/dL Normal 74-106 [facility] Comment on above: Performed By: #### C BC #### [facility] [address] [place] [address] Dr. Raul Pereira Potassium [Moles/Vol] 4.2 mmol/L Normal 3.5-5.1 [facility] Comment on above: Performed By: #### C BC #### [facility] [address] [place] [address] Dr. Raul Pereira Protein [Mass/Vol] 7.2 g/dL Normal 6.4-8.2 [facility] Comment on above: Performed By: #### C BC #### [facility] [address] [place] [address] Dr. Raul Pereira Sodium [Moles/Vol] 137 mmol/L Normal 136-145 [facility] Comment on above: Performed By: #### C BC #### [facility] [address] [place], [place] [address] Dr. Raul Pereira Urea nitrogen [Mass/Vol] 11.0 mg/dL Normal 7.0-18.0 [facility] Comment on above: Performed By: #### C BC #### [facility] [address] [place], [place] [address] Dr. Raul Pereira Urea nitrogen/Creatinine [Mass ratio] 14.1 mg/mg Normal [facility] Comment on above: Performed By: #### C BC #### [facility] [address] [place], [place] [address] Dr. Raul Pereira US SINGLE QUAD RT [...] by: MICAH ROSAS Date: 2022-07-13 16:33 Normal [facility] Covid-19 PCR (CVDTB)on 06-17 SARS-CoV-2 (COVID-19) RNA IMELDA+probe Ql (Unsp spec) Not detected Normal NOT DETECTED [facility] Comment on above: Result Comment: This test is not yet approved or cleared by the [place] FDA. When there are no FDA-approved or cleared tests available, and other criteria are met, FDA can make tests available under an emergency access mechanism called an Emergency Use Authorization (EUA). The EUA for this test is supported by the [place] of Health and Human Service's (HHS's) declaration [...] consistent with SARS-CoV-2. Performed By: #### [facility] #### [facility] [address] [place] [address] Dr. Raul Pereira Endoscopy Reporton 8 Endoscopy Report [id number] Surgery Date: 02/24/2018 Room #: Z0 Date of : 1960 PROCEDURE NOTEATTENDING: Xin Beasley M.D.PROCEDURE PERFORMED: EGD.DIRECTOR OF ONCOLOGY: Dr. Noland.SEDATION:1. Versed 10 mg.2. Fentanyl 250 [...] 02/24/2018/09:53 Kiara/Ruddy Noland M.D.Date Trans: 02/24/2018 12:13 P/[email or web address]_[id number] cc: Napoleon Rahman M.D. [address], [facility] [address] Normal [facility] Endoscopy Report MR#: [id number] Name: Rhett Mejia Surgery Date: 02/24/2018 Room #: Z0 Date of : 1960 PROCEDURE NOTEATTENDING: Xin Beasley M.D.PROCEDURE PERFORMED: Colonoscopy and polypectomy.DIRECTOR OF ONCOLOGY: Ruddy Noland M.D.SEDATION: Versed 10 mg and [...] 02/24/2018/09:57 A/Ruddy Noland M.D.Date Trans: 02/24/2018 10:12 A/Mary JaneN_JN:[id number] cc: Napoleon Rahman M.D. [address] [place] [address] Normal [facility] POC GLUCOSE LABon 02-24-2018 Glucose mass conc 87 mg/dL Normal 70-100 [facility] Comment on above: Performed By: #### 8 [id number] ####[facility] Vital Signs Date Time Vital Sign Value Performing Clinician Facility NEGATED: Highlighted row BMI (Body Mass Index) [facility] NEGATED: Highlighted row Body Temperature [facility] NEGATED: Highlighted row Body weight Gene [facility] NEGATED: Highlighted row BP Diastolic Gene [facility] NEGATED: Highlighted row BP Systolic [facility] NEGATED: Highlighted row Height Gene [facility] NEGATED: Highlighted row Pulse (Heart Rate) [facility] NEGATED: Highlighted row Pulse Oximetry Gene [facility] NEGATED: Highlighted row Respiratory [facility] Encounters Encounter Date Encounter Type Care Provider Facility Start: 01-30-2024 ambulatory Cristian Johnson acility:[facility] Start: 09-22-2023 End: 09-23-2023 ambulatory Monica [...] abnormal findings DR NAPOLEON RAHMAN . [facility] Start: 01-31-2023 End: 02-01-2023 Encounter for general adult medical examination without abnormal findings NONE LISTED REQUEST Facility:[facility] Start: 01-31-2023 End: [...] laboratory examination DR BETHEL LITTLE . [facility] Start: 12-13-2022 End: 12-14-[address] [...] . Facility:[facility] Start: 08-27-2022 End: 08-27-2022 ambulatory [facility] Start: 08-16-2022 End: 08-16-2022 ambulatory [facility] Start: 08-15-2022 Encounter for other preprocedural examination DR MICAELA GUPTA [facility] Start: 08-15-2022 Encounter for preprocedural laboratory examination DR MICAELA GUPTA [facility] Start: 08-13-2022 End: 08-14-[address] MICAELA GUPTA Facility:[facility] Start: 08-13-2022 End: 08-14-2022 Encounter for other preprocedural examination DR MICAELA GUPTA Facility:[facility] Start: 08-06-2022 End: 08-07-2022 ambulatory [facility] Start: 08-06-2022 End: 08-06-2022 ambulatory [facility] Start: 08-06-2022 ambulatory [facility] Start: 07-24-2022 End: 07-25-[address] [...] Start: 02-24-2018 End: 02-25-2018 Ambulatory XIN BEASLEY [facility] Start: 10-19-2014 End: 10-19-2014 Patient encounter procedure [facility] Start: 12-22-2013 End: 12-22-2013 Departed Referred [facility] Start: 10-12-2001 End: 10-12-2001 Patient encounter procedure [facility] Start: 09-01-2001 End: 09-01-2001 Patient encounter procedure [facility] Start: 08-26-2001 End: 08-26-2001 Patient encounter procedure [facility] Start: 03-21-1999 End: 03-28-1999 Evaluation and management of inpatient [facility] Start: 09-07-1997 End: 09-07-1997 Admission to day surgery [facility] Start: 07-21-1997 End: 07-21-1997 Emergency department patient visit [facility] Procedures Date Procedure Procedure Detail Performing Clinician Start: 02-24-2018 Colsc flx w/removal lesion by hot bx forceps XIN BEASLEY Payers Date Payer Category Payer Unknown 1960 Self-pay 1960 Self-pay [id number] 1960 Unknown [id number] 1960 Unknown [id number] .16.84 [id number] 1960 Unknown [id number] .16.84 0.1.528410.3.579.2.593 1959 Unknown [id number] 0.1.902838.3.579.2.593 1959 Unknown [id number] .16.84 0.1.678461.3.579.2.593 1959 Unknown [id number] 2.16.84 0.1.030355.3.579.2.593 1959 Unknown [id number] 2.16.84 0.1.934081.3.579.2.593 1959 Unknown [id number] 2.16.84 0.1.763369.3.579.2.593 1959 Unknown [id number] 2.16.84 0.1.012468.3.579.2.593 1959 Unknown [id number] 2.16.84 0.1.436117.3.579.2.593 1959 Unknown [id number] 2.16.84 0.1.196696.3.579.2.593 1959 Unknown [id number] 2.16.84 0.1.403760.3.579.2.593 1959 Unknown [id number] 2.16.84 0.1.527251.3.579.2.593 1959 Unknown [id number] 2.16.84 0.1.400111.3.579.2.593 1959 Unknown [id number] 2.16.84 0.1.208169.3.579.2.593 1959 Unknown [id number] 2.16.84 0.1.497695.3.579.2.593 1959 Unknown [id number] 2.16.84 0.1.648942.3.579.2.593 1959 Unknown [id number] 2.16.84 0.1.261297.3.579.2.593 1959 Unknown [id number] 2.16.84 0.1.376293.3.579.2.593 1959 Unknown [id number] 2.16.84 0.1.775155.3.579.2.593 1959 Unknown [id number] 2.16.84 0.1.144026.3.579.2.593 1960 Unknown [id number] 2.16.84 0.1.139108.3.579.2.593 1960 Unknown [id number] 2.16.84 0.1.194684.3.579.2.593 1959 Unknown [id number] 2.16.84 0.1.043579.3.579.2.593 1959 Unknown [id number] 2.16.84 0.1.267695.3.579.2.593 1959 Unknown [id number] 2.16.84 0.1.741672.3.579.2.593 1959 Unknown [id number] 2.16.84 0.1.327725.3.579.2.593 1959 Unknown [id number] 2.16.84 0.1.006062.3.579.2.593 1959 Unknown [id number] 2.16.84 0.1.988330.3.579.2.593 1959 Unknown [id number] 2.16.84 0.1.113959.3.579.2.593 1959 Unknown [id number] 2.16. 840.1.664787.3.579.2.196 Medicare [id number] 85cc [id number] Unknown [id number] 00 [id number] Unknown [id number] 2.16.84 0.1.284825.3.579.2.593 Unknown [id number] 2.16.8 40.1.557170.3.579.2.531 Clinical Notes 05-15-2022 to 02-18-2023 Note Date [...] our patients to inform us about any ifus-coo-miskafp medications or herbal remedies/nutritional supplements/alternative remedies. 2. [...] options with their primary care provider. [facility] 01-16-2023 Note CONSULTATION CONSULTATION DATE: 01/16/2023 [...] up in the clinic post epidural. [facility] 12-04-2022 Note CONSULTATION CONSULTATION DATE: 12/04/2022 [...] in the office after the procedure. [facility] 11-15-2022 Note CONSULTATION PROCEDURE DATE: 11/15/2022 [...] the office following her RFA procedure. [facility] 11-15-2022 Note CONSULTATION CONSULTATION DATE: 11/15/2022 [...] measures such as heat and stretches. [facility] 08-29-2022 Note CONSULTATION PROCEDURE DATE: 08/29/2022 [...] pattern. Patient tolerated the procedure well. [facility] 08-29-2022 Note CONSULTATION CONSULTATION DATE: 08/29/2022 [...] up in the office post procedure. [facility] 08-29-2022 Note CONSULTATION CONSULTATION DATE: 08/29/2022 ADDENDUM: Addendum to peer plan: We will repeat radiofrequency ablation starting on the right side and subsequently moving to the left at T11, T12 and L1, L2. [facility] 08-27-2022 Note Subjective Patient ID: Rhett [...] past 36 hour(s)). No follow-ups on file. [facility] 08-16-2022 Note Patient: Rhett rousseau Procedure Summary Date: 08/16/22 [facility] / [facility] Operating Room Anesthesia Start: 734 Anesthesia Stop: [...] no known notable events for this encounter. [facility] 08-16-2022 Note Airway Date/Time: 08/16/2022 7:44 AM Urgency: elective Airway not difficult General Information and Staff Patient location during procedure: OR Anesthesiologist: Cassi Velez MD Resident/CHIEF RISK OFFICER/CAA: LEONARD Canales Performed: resident/CHIEF RISK OFFICER/LEONARD Indications and Patient Condition Indications for airway [...] before airway management; Dentures to Circ RN [facility] 08-16-2022 Note Patient: Rhett rousseau Procedure Information Date/Time: 08/16/2230 Procedure: CHOLECYSTECTOMY, LAPAROSCOPIC, WITH INTRAOPERATIVE CHOLANGIOGRAM, WITH LAPAROTOMY IF INDICATED REQ ERIC OR MANDO HUERTA MAUK, WOODSON - C-ARM AVAIL STAFF REQUESTS: LENIN DE LA CRUZ [facility] / [facility] Operating Room Surgeons: Micaela Gupta MD Relevant [...] Plan discussed with CAA. Additional Equipment Requests [facility] 08-06-2022 Note Subjective Patient ID: Rhett Mejia [...] past 36 hour(s)). No follow-ups on file. [facility] 08-06-2022 Note Subjective Patient ID: Rhett Mejia [...] past 36 hour(s)). No follow-ups on file. [facility] 06-12-2022 Note CONSULTATION PROCEDURE DATE: 06/12/2022 PREOPERATIVE [...] The patient tolerated the procedure well. [facility] 06-12-2022 Note CONSULTATION CONSULTATION DATE: 06/12/2022 [...] agrees to the plan of care. [facility] 05-15-2022 Note CONSULTATION CONSULTATION DATE: 05/15/2022 [...] Patient agrees with the plan of care. [facility] Signed and Approved by: RUBY RAMIREZ . 05/16/2022 13:38:00 [facility] 05-15-2022 Note CONSULTATION PROCEDURE DATE: 05/15/2022 PREOPERATIVE [...] will be followed up in the office. [facility] Signed and Approved by: RUBY RAMIREZ . 05/16/2022 13:38:00 [facility] Summary Purpose Family History No Family [...] and content) DATE CREATED AUTHOR 05/07/2018 [facility] DATE CREATED AUTHOR AUTHOR'S ORGANIZ ATION 09/26/2022 [facility] DATE CREATED AUTHOR AUTHOR'S ORGANIZ ATION 03/28/2023 [facility] DATE CREATED AUTHOR AUTHOR'S ORGANIZ ATION 09/25/2023 [facility] DATE CREATED AUTHOR AUTHOR'S ORGANIZ ATION 03/25/2024 [facility] FOR RECORDS PERTAINING TO PATIENTS [...] BE BASED ON THE PRIMARY CLINICAL RECORDS. [employer] [facility]. provides no warranty or guarantee of the accuracy or completeness of information in this document.
== END 2024-04-07 19:23 | disposition home or self-care (01) ==
PROVIDERS: PCP Family Medicine; Visit Provider Family Medicine
DX: R05.1 Acute cough (principal)
CPT/HCPCS: 71046

== ENCOUNTER 2024-05-31 08:06 | Outpatient (OUT) | payer MEDICARE, OTHER, SELFPAY ==
--- NOTE | 2024-05-31 08:09 | CT_ITS ---
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 TECHNIQUE: Axial and Coronal CT images were created without IV contrast. Dose reduction techniques were achieved by using automated exposure control and/or adjustment of mA and/or kV according to patient size and/or use of iterative reconstruction technique. FINDINGS: MAXILLARY SINUSES: 2.2 x 1.6 cm fluid density inferior right maxillary sinus consistent with mucous retention cyst. A second 1.6 x 0.7 cm area of fluid density ETHMOID SINUSES: No significant mucosal thickening or fluid. Fovea ethmoidali and lamina papyracea are symmetric and intact. SPHENOID SINUSES: No significant mucosal thickening or fluid. Sphenoethmoidal recesses are patent. No bony dehiscence. FRONTAL SINUSES: No significant mucosal thickening or fluid. Frontal recesses are patent. NASAL FOSSA: deviation of the nasal septum. Bilateral nargis bullosa middle nasal turbinates OTHER: Negative. Limited views of the skull base and orbits are unremarkable. CT/CT sinus wo con IMPRESSION: 2 right maxillary sinus mucous retention cysts Electronically authenticated by: MEAGHAN SKINNER Date: 06/01/2024 12:11
== END 2024-05-31 08:07 | disposition home or self-care (01) ==
LOC: CT 08:06
PROVIDERS: PCP Family Medicine; Visit Provider Family Medicine
DX: D14.0 Benign neoplasm of middle ear, nasal cavity and accessory sinuses (principal)
CPT/HCPCS: 70486

== ENCOUNTER 2024-06-09 08:43 | Outpatient (OUT) | payer MEDICARE, OTHER, SELFPAY ==
--- OUTSIDE RECORDS SUMMARY | 2024-06-09 09:06 | XMS_ITS | CCD ---
Author Organization [facility] Care Team Providers Care Trouble Lineman Name Role Phone NAWRAS, ALI T Unavailable [...] ., NARENDRANATH Admitting Rajani vailable LAKSHMIPATHY ., ANNAATH Consulting Rajani vailable HOY ., DR BENDER Primary Care Unavailable LAKSHMIPATHY ., AMIRA Attending Rajani vailable KRYSTIAN ALFARO Consulting Unavailable HOY ., DR BENDER Primary Care Unavailable LAKSHMIPATHY ., NARENDVENECIAATH Admitting Rajani vailable RAMIREZ .RUBY Consulting Unavailable LAKSHMIPATHY ., AMIRA Attending Rajani vailable HOY ., DR BENDER Primary Care Unavailable LAKSHMIPATHY ., NARENDRANATH Admitting Rajani vailable LAKSHMIPATHY ., NARENDRANATH Attending Rajani vailable DR REINALDO LIPSCOMB Consulting Unavailable HOKelvin .DR BENDER Primary Care Unavailable LAKSHMIPATHY ., ANNAATH Attending Rajani vailable LAKSHMIPATHY ., NARENDVENECIAATH Admitting Rajani vailable LAKSHMIPATHY ., AMIRA Consulting Rajani vailable JOHN ., DR BENDER Consulting Unavailable HOKelvin ., [...] Unavailable HOY ., DR BENDER Attending Unavailable TOTZ, DR MEAGHAN Stanton Consulting Unavailable HOY ., DR BENDER Primary Care Unavailable HOY ., DR BENDER Consulting Unavailable HOY ., DR BENDER Admsotero Unavailable HOY ., DR BENDER Attending Unavailable REBAEBER, DR REINALDO Raya Consulting Unavailable HOY ., DR BENDER [...] ., DR BENDER Attending Unavailable ZIEBER, DR REINALDO Raya Consulting Unavailable HOY ., DR BENDER Consulting Unavailable HOY ., DR BENDER Primary Care Unavailable HOY ., DR BENDER Admitting Unavailable HOY ., DR BENDER Attending Unavailable ZIEBER, DR REINALDO Raya Consulting Unavailable HOY ., DR BENDER Consulting Unavailable HOY ., DR BENDER Primary Care Unavailable HOY ., DR BENDER Admitting Unavailable HOY ., DR BENDER Attending Unavailable TOTZ, DR MEAGHAN Stanton Consulting Unavailable RAMIREZ ., [...] Unavailable HOY ., DR BENDER Attending Unavailable DR REINALDO LIPSCOMB Consulting Unavailable REQUEST, DR KENNETH LISTED Consulting Unavailisabella Noriega, DR BENDER Primary Care Unavailable JOHN Noriega, DR BENDER Admitting Unavailable JOHN Noriega, DR BENDER Attending Unavailable Manas RIOJAS, Monica Todd Attending Unavailable Cristian Morris Attending Unavailab Cristian Du Admitting Unavailab Napoleon Gómez M Primary Care Unavailable Allergies Allergy Classification Reported Allergen(s) Allergy Type Date of Onset Reaction(s) Facility (1 source) Contrast media; Translations: [IVP DYE] Propensity to adverse reactions (disorder) 1 [facility] Repository (2 sources) corn extract; Translations: [CORN] Drug Allergy 1 [facility] Repository (6 sources) iodine; Translations: [IODINE] Drug Allergy 9 Edema [facility] Repository (6 sources) Latex; Translations: [LATEX] Drug allergy (disorder) 9 Anaphylaxis [facility] Repository (1 source) loratadine Drug Allergy 1 [facility] Repository (2 sources) loratadine; Translations: [LORATADINE] Drug Allergy 3 [facility] Repository (1 source) montelukast Drug Allergy 1 [facility] Repository (3 sources) papaveretum; Translations: [SOYBEAN] Drug Allergy 1 [facility] Repository (2 sources) Penicillins; Translations: [PENICILLINS] Drug allergy (disorder) 1 [facility] Repository (1 source) povidone-iodine Drug Allergy 9 [facility] Repository (6 sources) propofol; Translations: [PROPOFOL] Drug Allergy 2 Anaphylaxis [facility] Repository (2 sources) wheat preparation; Translations: [WHEAT] Drug Allergy 2 [facility] Repository (5 sources) Iodinated Contrast Media; Translations: [IODINATED CONTRAST MEDIA] Allergy to Substance 4 Anaphylaxis [facility] Repository (1 source) montelukast; Translations: [MONTELUKAST] Drug Allergy 4 [facility] Repository (1 source) oxybutynin; Translations: [DITROPAN] Drug Allergy 2 [facility] Repository (1 source) Povidone-Iodine; Translations: [POVIDONE-IODINE] Drug Allergy 4 [facility] Repository (1 source) Soy protein; Translations: [SOY] Propensity to adverse reactions to drug (disorder) 2 [facility] Repository (1 source) Iodine (And Iodine Containting Drugs) Drug allergy (disorder) 4 [facility] Repository (1 source) Penicillin Drug Allergy [facility] Repository (1 source) Sulfonamides (Antibiotic) Drug allergy (disorder) 2 [facility] Repository (1 source) Iodine Drug Allergy 8 [facility] Repository (1 source) Latex Drug allergy (disorder) 8 [facility] Repository (1 source) Propofol Drug Allergy 8 [facility] Repository Medications Completed/Discontinued Medications Medication Drug Class(es) [...] Episodic Other aftercare (1 source) Other terminal carman (current) drug therapy; Translations: [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 Raul Pereira Basophils/100 WBC (Bld) 0.6 % Normal 0.2-2.0 [facility] Comment on above: Performed By: #### C BC #### [facility] [address] [address] [address] Raul Pereira EO # 0.2 103/ul Normal 0.0-0.7 [facility] Comment on above: Performed By: #### C BC #### [facility] [address] [address] [address] Raul Pereira Eosinophils/100 WBC (Bld) 2.3 % Normal 0.9-7.0 [facility] Comment on above: Performed By: #### C BC #### [facility] [address] [address] [address] Raul Pereira Hematocrit (Bld) [Volume fraction] 39.5 % Normal 36.0-48.0 [facility] Comment on above: Performed By: #### C BC #### [facility] [address] [address] [address] Raul Pereira Hemoglobin (Bld) [Mass/Vol] 12.3 g/dL Normal 12.0-16.0 [facility] Comment on above: Performed By: #### C BC #### [facility] [address] [address] [address] Raul Pereira IG # 0.03 10e3/ul Normal 0.00-0.03 [facility] Comment on above: Performed By: #### C BC #### [facility] [address] [place] [address] Dr. Raul Pereira IG % 0.4 % Normal 0.0-0.5 [facility] Comment on above: Performed By: #### C BC #### [facility] [address] [place] [address] Dr. Raul Pereira LYMPH # 2.1 103/ul Normal 1.2-3.8 [facility] Comment on above: Performed By: #### C BC #### [facility] [address] [place] [address] Dr. Raul Pereira Lymphocytes/100 WBC (Bld) 24.8 % Normal 20.5-60.0 [facility] Comment on above: Performed By: #### C BC #### [facility] [address] [place] [address] Dr. Raul Pereira MANUAL DIFF REQ NO Normal [facility] Comment on above: Performed By: #### C BC #### [facility] [address] [place] [address] Dr. Raul Pereira MCH (RBC) [Entitic mass] 26.3 pg Critically low 26.7-34.0 [facility] Comment on above: Performed By: #### C BC #### [facility] [address] [place] [address] Dr. Raul Pereira MCHC (RBC) [Mass/Vol] 31.1 g/dL Normal 29.9-35.2 [facility] Comment on above: Performed By: #### C BC #### [facility] [address] [place] [address] Dr. Raul Pereira MCV (RBC) [Entitic vol] 84.4 fL Normal 81.0-99.0 [facility] Comment on above: Performed By: #### C BC #### [facility] [address] [place] [address] Dr. Raul Pereira MONO # 1.0 103/ul Critically high 0.3-0.8 [facility] Comment on above: Performed By: #### C BC #### [facility] [address] [place] [address] Dr. Raul Pereira Monocytes/100 WBC (Bld) 11.8 % Normal 1.7-12.0 [facility] Comment on above: Performed By: #### C BC #### [facility] [address] [place] [address] Dr. Raul Pereira NEUT # 5.0 103/ul Normal 1.4-6.5 [facility] Comment on above: Performed By: #### C BC #### [facility] [address] [place] [address] Dr. Raul Pereira Neutrophils/100 WBC (Bld) 60.1 % Normal 43.0-75.0 [facility] Comment on above: Performed By: #### C BC #### [facility] [address] [place] [address] Dr. Raul Pereira Platelet mean volume (Bld) [Entitic vol] 8.8 fL Critically low 9.5-13.5 [facility] Comment on above: Performed By: #### C BC #### [facility] [address] [place] [address] Dr. Raul Pereira PLT 418 103/ul Normal 150-450 [facility] Comment on above: Performed By: #### C BC #### [facility] [address] [place] [address] Dr. Raul Pereira RBC 4.68 106/ul Normal 4.20-5.40 [facility] Comment on above: Performed By: #### C BC #### [facility] [address] [place] [address] Dr. Raul Pereira WBC 8.3 103/ul Normal 4.0-11.0 [facility] Comment on above: Performed By: #### C BC #### [facility] [address] [place] [address] Dr. Raul Pereira FERRITINon 02-20-2023 Ferritin [Mass/Vol] 15.0 ng/mL Normal 8.0-252.0 [facility] Comment on above: Performed By: #### C BC #### [facility] [address] [place] [address] Dr. Raul Pereira XR CSPINE 2_3 VIEWSon [...] stable to slightly progressed. Electronically authenticated by: REINALDO LIPSCOMB Date: 2023-02-19 06:[address] [facility] [address] LUNG CANCER SCREENINGon 0 02-13-2023 CT [...] by: MEAGHAN SKINNER Date: 2023-02-13 11:02 Normal [facility] ECHOCARDIO M/2D COMPLETEon 0 02-13-2023 ECHOCARDIO M/2D COMPLETE Patient: VIDA MEJIA Exam Date: 02/13/2023 : 1960 Gender:F Ordering : DR NAPOLEON RAHMAN . Admission #: [id number] Family : Order #: [id number] CLICK HERE TO VIEW EXAM ECHOCARDIOGRAM REPORT [...] M.D. on 02/13/2023 at 18:54 Normal [facility] CREATININEon 02-12-2023 Creatinine [Mass/Vol] 0.76 mg/dL Normal 0.55-1.02 [facility] Comment on above: Performed By: #### C BC #### [facility] [address] [place] [address] Dr. Raul Pereira EGFR-AF MALIAN >60 Normal >=60 [facility] Comment on above: Performed By: #### C BC #### [facility] [address] [address] [address] Raul Pereira EGFR-NON AF MALIAN >60 Normal >=60 [facility] Comment on above: Performed By: #### C BC #### [facility] [address] [place] [address] Dr. Raul Pereira MRI BRAIN WO W [...] correlate with patient history. Electronically authenticated by: REINALDO LIPSCOMB Date: 2023-02-12 12:37 Normal [facility] US CAROTID ART BILon 02-12- 023 US [...] 2.5-4.0 >70 >225 >4.0 Electronically authenticated by: REINALDO LIPSCOMB Date: 2023-02-12 14:03 Normal [facility] COMPLIANCE DRUG SCREENon PDF . Normal [facility] Comment on above: Performed By: #### C BC #### [facility] [address] [place] [address] Dr. Raul Pereira Summary FINAL Normal [facility] Comment on above: Result Comment: [...] == Performed By: #### C BC #### [facility] [address] [place] [address] Dr. Raul Pereira CULTURE URINEon 02-02-2023 CULTURE [...] Trimethoprim/Sulfamethoxa zole <=20 S F Normal [facility] Comment on above: Performed By: #### U RCX #### [facility] [address] [address] [address] Raul Pereira AMMONIAon 01-31-2023 Ammonia (P) [Moles/Vol] 13 umol/L Normal [facility] Comment on above: Performed By: #### A MM ####[facility] [address] [address]Dr. Raul Pereira CBC AUTO DIFFon 01-31-2023 BASO # 0.1 103/ul Normal 0.0-0.1 [facility] Comment on above: Performed By: #### C BC #### [facility] [address] [place] [address] Dr. Raul Pereira Basophils/100 WBC (Bld) 0.6 % Normal 0.2-2.0 [facility] Comment on above: Performed By: #### C BC #### [facility] [address] [place] [address] Dr. Raul Pereira EO # 0.1 103/ul Normal 0.0-0.7 [facility] Comment on above: Performed By: #### C BC #### [facility] [address] [place] [address] Dr. Raul Pereira Eosinophils/100 WBC (Bld) 1.7 % Normal 0.9-7.0 [facility] Comment on above: Performed By: #### C BC #### [facility] [address] [place] [address] Dr. Raul Pereira Erythrocyte distribution width (RBC) [Ratio] 25.9 % Critically high 11.0-15.0 [facility] Comment on above: Result Comment: 2+ a niso Performed By: #### C BC #### [facility] [address] [place] [address] Dr. Raul Pereira Hematocrit (Bld) [Volume fraction] 42.4 % Normal 36.0-48.0 [facility] Comment on above: Performed By: #### C BC #### [facility] [address] [place] [address] Dr. Raul Pereira Hemoglobin (Bld) [Mass/Vol] 13.1 g/dL Normal 12.0-16.0 [facility] Comment on above: Performed By: #### C BC #### [facility] [address] [place] [address] Dr. Raul Pereira IG # 0.02 10e3/ul Normal 0.00-0.03 [facility] Comment on above: Performed By: #### C BC #### [facility] [address] [place] [address] Dr. Raul Pereira IG % 0.2 % Normal 0.0-0.5 [facility] Comment on above: Performed By: #### C BC #### [facility] [address] [place] [address] Dr. Raul Pereira LYMPH # 2.0 103/ul Normal 1.2-3.8 [facility] Comment on above: Performed By: #### C BC #### [facility] [address] [place] [address] Dr. Raul Pereira Lymphocytes/100 WBC (Bld) 24.8 % Normal 20.5-60.0 [facility] Comment on above: Performed By: #### C BC #### [facility] [address] [place] [address] Dr. Raul Pereira MANUAL DIFF REQ NO Normal [facility] Comment on above: Performed By: #### C BC #### [facility] [address] [place] [address] Dr. Raul Pereira MCH (RBC) [Entitic mass] 25.3 pg Critically low 26.7-34.0 [facility] Comment on above: Performed By: #### C BC #### [facility] [address] [place] [address] Dr. Raul Pereira MCHC (RBC) [Mass/Vol] 30.9 g/dL Normal 29.9-35.2 [facility] Comment on above: Performed By: #### C BC #### [facility] [address] [place] [address] Dr. Raul Pereira MCV (RBC) [Entitic vol] 82.0 fL Normal 81.0-99.0 [facility] Comment on above: Performed By: #### C BC #### [facility] [address] [place] [address] Dr. Raul Pereira MONO # 0.7 103/ul Normal 0.3-0.8 [facility] Comment on above: Performed By: #### C BC #### [facility] [address] [place] [address] Dr. Raul Pereira Monocytes/100 WBC (Bld) 8.8 % Normal 1.7-12.0 [facility] Comment on above: Performed By: #### C BC #### [facility] [address] [address] [address] Raul Pereira NEUT # 5.2 103/ul Normal 1.4-6.5 [facility] Comment on above: Performed By: #### C BC #### [facility] [address] [address] [address] Raul Pereira Neutrophils/100 WBC (Bld) 63.9 % Normal 43.0-75.0 [facility] Comment on above: Performed By: #### C BC #### [facility] [address] [address] [address] Raul Pereira Platelet mean volume (Bld) [Entitic vol] 9.2 fL Critically low 9.5-13.5 [facility] Comment on above: Performed By: #### C BC #### [facility] [address] [address] [address] Raul Pereira PLT 334 103/ul Normal 150-450 [facility] Comment on above: Performed By: #### C BC #### [facility] [address] [address] [address] Raul Pereira RBC 5.17 106/ul Normal 4.20-5.40 [facility] Comment on above: Performed By: #### C BC #### [facility] [address] [address] [address] Raul Pereira WBC 8.2 103/ul Normal 4.0-11.0 [facility] Comment on above: Performed By: #### C BC #### [facility] [address] [address] [address] Raul Pereira SARA - LIPID PROFILEon 2022 CHOL-HDL RATIO NORM SEE BELOW Normal [facility] Comment on above: Result Comment: 3.3 - 4.4 LOW RISK 4.4 - 7.1 AVERAGE RISK 7.1 - 11.0 MODERATE RISK >11.0 HIGH RISK Performed By: #### D ATLIPI ####[facility] [address] [id number]. Raul Pereira Cholesterol [Mass/Vol] 178 mg/dL Normal <=200 [facility] Comment on above: Performed By: #### D ATLIPI ####[facility] [address] [place], [place] [address]Ja. Raul Pereira Cholesterol in HDL [Mass/Vol] 73 mg/dL Critically high 40-60 [facility] Comment on above: Performed By: #### D ATLIPI ####[facility] [address] [id number]. Raul Pereira Cholesterol in LDL [Mass/Vol] 72.0 mg/dL Normal [facility] Comment on above: Performed By: #### D ATLIPI ####[facility] [address] [id number]. Raul Pereira Cholesterol.total/C holesterol in HDL [Mass ratio] 2.4 {ratio} Normal [facility] Comment on above: Performed By: #### D ATLIPI ####[facility] [address] [id number]. Raul Pereira HDL NORMAL > or = 60 mg/dl - LO W CARDIOVASCULAR RISK <40 mg/dl - HIGH CARDIOVASCULAR RISK Normal [facility] Comment on above: Performed By: #### D ATLIPI ####[facility] [address] [id number]. Raul Pereira LDL CALC NORMAL SEE BELOW Normal [facility] Comment on above: Result Comment: <100 mg/dl OPTIMAL 100 - 129 mg/dl NEAR OR ABOVE OPTIMAL 130 - 159 mg/dl BORDERLINE HIGH 160 - 189 mg/dl HIGH >190 mg/dl VERY HIGH Performed By: #### D ATLIPI ####[facility] [address] [id number]. Raul Pereira Triglyceride [Mass/Vol] 165 mg/dL Critically high <=150 [facility] Comment on above: Performed By: #### D ATLIPI ####[facility] [address] [id number]. Raul Pereira VLDL CALC 33.0 mg/dL Normal [facility] Comment on above: Performed By: #### D ATLIPI ####[facility] [address] [address]Dr. Raul Pereira DRUG SCREEN RAPID (URINE)on 01-31-2023 AMP Positive Abnormal NEGATIVE [facility] Comment on above: Performed By: #### C BC #### [facility] [address] [address] [address] Raul Pereira BAR Negative Normal NEGATIVE [facility] Comment on above: Performed By: #### C BC #### [facility] [address] [address] [address] Raul Pereira BUP Positive Abnormal NEGATIVE [facility] Comment on above: Performed By: #### C BC #### [facility] [address] [address] [address] Raul Pereira BZO Negative Normal NEGATIVE [facility] Comment on above: Performed By: #### C BC #### [facility] [address] [address] [address] Raul Pereira RADHA Negative Normal NEGATIVE [facility] Comment on above: Performed By: #### C BC #### [facility] [address] [address] [address] Raul Pereira CUT-OFFS SEE BELOW Normal [facility] Comment on above: Result Comment: AMP (Amphetamine): 500ng/mL, BAR (Barbituates): 200 ng/mL, BZO (Benzodiazepines): 150 ng/mL, BUP (Buprenorphine): 10 ng/mL, RADHA (Cocaine): 150 ng/mL, mAMP (Methamphetamine): 500 ng/mL, MTD (Methadone): 200 ng/mL, OPI (Opiates): 100 ng/mL, OXY (Oxycodone): 100 ng/mL, PCP (Phencyclidine): 25 ng/mL, PPX (Propoxyphene): 300 ng/mL, THC (Cannabinoids): 50 ng/mL, TCA (Trycyclic Antidepressants): 300 ng/mL Performed By: #### C BC #### [facility] [address] [address] [address] Raul Pereira DRUG CUT HEADER DRUG CLASS TEST SYST EM CUT-OFF CONCENTRATIONS ARE FOLLOWS: Normal [facility] Comment on above: Performed By: #### C BC #### [facility] [address] [place] [address] Dr. Raul Pereira mAMP Negative Normal NEGATIVE [facility] Comment on above: Performed By: #### C BC #### [facility] [address] [place] [address] Dr. Raul Pereira MTD Negative Normal NEGATIVE [facility] Comment on above: Performed By: #### C BC #### [facility] [address] [place] [address] Dr. Raul Pereira OPI Negative Normal NEGATIVE [facility] Comment on above: Performed By: #### C BC #### [facility] [address] [place] [address] Dr. Raul Pereira OXY Negative Normal NEGATIVE [facility] Comment on above: Performed By: #### C BC #### [facility] [address] [place] [address] Dr. Raul Pereira PCP Negative Normal NEGATIVE [facility] Comment on above: Performed By: #### C BC #### [facility] [address] [place] [address] Dr. Raul Pereira PPX Negative Normal NEGATIVE [facility] Comment on above: Performed By: #### C BC #### [facility] [address] [place] [address] Dr. Raul Pereira TCA Positive Abnormal NEGATIVE [facility] Comment on above: Performed By: #### C BC #### [facility] [address] [place] [address] Dr. Raul Pereira THC Negative Normal NEGATIVE [facility] Comment on above: Performed By: #### C BC #### [facility] [address] [place] [address] Dr. Raul Pereira FREE THYROXINE INDEX T7on FTI 2.89 Normal 1.30-4.50 [facility] Comment on above: Performed By: #### C VDTBH #### [facility] [address] [place] [address] Dr. Raul Pereira T3U 39.0 % Normal 30.0-39.0 [facility] Comment on above: Performed By: #### C VDTBH #### [facility] [address] [address] [address] Raul Pereira T4 [Mass/Vol] 7.40 ug/dL Normal 4.80-13.90 [facility] Comment on above: Performed By: #### C VDTBH #### [facility] [address] [address] [address] Raul Pereira GLYCOHEMOGLOBIN A1Con 2022 ADA RECOMMENDATION SEE BELOW Normal [facility] Comment on above: Result Comment: ADA RECOMMENDED LIMIT 4.0 - 6.0 ADA THERAPEUTIC TARGET < 7.0 ACTION SUGGESTED > 7.0 Performed By: #### D ATA1C ####[facility] [address] [place], [place] [address]EpDr. Raul Pereira Glucose [Mass/Vol] 108 mg/dL Normal [facility] Comment on above: Performed By: #### D ATA1C ####[facility] [address] [place], [place] [address]Dr. Raul Pereira HbA1c (Bld) [Mass fraction] 5.4 % Normal 4.5-6.2 [facility] Comment on above: Performed By: #### D ATA1C ####[facility] [address] [place], [place] [address]ZjDr. Raul Pereira IRONon 01-31-2023 Iron [Mass/Vol] 225.0 ug/dL Critically high 50.0-170.0 [facility] Comment on above: Performed By: #### C VDTBH #### [facility] [address] [address] [address] Raul Pereira PROF 14(COMP METB)on 023 Albumin [Mass/Vol] 3.8 g/dL Normal 3.4-5.0 [facility] Comment on above: Performed By: #### Jazmin VDTBH #### [facility] [id number] Raul Pereira Albumin/Globulin [Mass ratio] 1.2 {ratio} Normal [facility] Comment on above: Performed By: #### C VDTBH #### [facility] [address] [address] [address] Raul Pereira ALP [Catalytic activity/Vol] 77 U/L Normal 46-116 [facility] Comment on above: Performed By: #### C VDTBH #### [facility] [address] [address] [address] Raul Pereira ALT [Catalytic activity/Vol] 19 U/L Normal 14-59 [facility] Comment on above: Performed By: #### C VDTBH #### [facility] [address] [address] [address] Raul Pereira Anion gap [Moles/Vol] 12.9 mmol/L Normal [facility] Comment on above: Performed By: #### C VDTBH #### [facility] [address] [place] [address] Dr. Raul Pereira AST [Catalytic activity/Vol] 17 U/L Normal 15-37 [facility] Comment on above: Performed By: #### C VDTBH #### [facility] [address] [address] [address] Raul Pereira Bilirubin [Mass/Vol] 0.3 mg/dL Normal 0.2-1.0 [facility] Comment on above: Performed By: #### C VDTBH #### [facility] [address] [address] [address] Raul Pereira Calcium [Mass/Vol] 8.9 mg/dL Normal 8.5-10.1 [facility] Comment on above: Performed By: #### C VDTBH #### [facility] [address] [address] [address] Raul Pereira Chloride [Moles/Vol] 101 mmol/L Normal 98-107 [facility] Comment on above: Performed By: #### C VDTBH #### [facility] [address] [address] [address] Raul Pereira CO2 [Moles/Vol] 28.5 mmol/L Normal 21.0-32.0 [facility] Comment on above: Performed By: #### C VDTBH #### [facility] [address] [address] [address] Raul Pereira Creatinine [Mass/Vol] 0.59 mg/dL Normal 0.55-1.02 [facility] Comment on above: Performed By: #### C VDTBH #### [facility] [address] [address] [address] Raul Pereira EGFR-AF MALIAN >60 Normal >=60 [facility] Comment on above: Performed By: #### C VDTBH #### [facility] [address] [address] [address] Raul Pereira EGFR-NON AF MALIAN >60 Normal >=60 [facility] Comment on above: Performed By: #### C VDTBH #### [facility] [address] [place] [address] Dr. Raul Pereira Globulin (S) [Mass/Vol] 3.1 g/dL Normal [facility] Comment on above: Performed By: #### C VDTBH #### [facility] [address] [address] [address] Raul Pereira Glucose [Mass/Vol] 84 mg/dL Normal 74-106 [facility] Comment on above: Performed By: #### C VDTBH #### [facility] [address] [place] [address] Dr. Raul Pereira Potassium [Moles/Vol] 4.4 mmol/L Normal 3.5-5.1 [facility] Comment on above: Performed By: #### C VDTBH #### [facility] [address] [address] [address] Raul Pereira Protein [Mass/Vol] 6.9 g/dL Normal 6.4-8.2 [facility] Comment on above: Performed By: #### C VDTBH #### [facility] [address] [address] [address] Raul Pereira Sodium [Moles/Vol] 138 mmol/L Normal 136-145 [facility] Comment on above: Performed By: #### C VDTBH #### [facility] [address] [place] [address] Dr. Raul Pereira Urea nitrogen [Mass/Vol] 11.0 mg/dL Normal 7.0-18.0 [facility] Comment on above: Performed By: #### C VDTBH #### [facility] [address] [place] [address] Dr. Raul Pereira Urea nitrogen/Creatinine [Mass ratio] 18.6 mg/mg Normal [facility] Comment on above: Performed By: #### C VDTBH #### [facility] [address] [place] [address] Dr. Raul Pereira TSHon 01-31-2023 TSH 2.354 uIU/mL Normal 0.358-3.[address] [facility] Comment on above: Performed By: #### C VDTBH #### [facility] [address] [place] [address] Dr. Raul Pereira UA RANDOM W/MICROSCOPICon BACTERIA NONE SEEN Normal NONE SEEN [facility] Comment on above: Performed By: #### C BC #### [facility] [address] [place] [address] Dr. Raul Pereira Bilirubin Ql (U) Negative Normal NEGATIVE [facility] Comment on above: Performed By: #### C BC #### [facility] [address] [place] [address] Dr. Raul Pereira CAST NONE SEEN Normal NONE SEEN [facility] Comment on above: Performed By: #### C BC #### [facility] [address] [place] [address] Dr. Raul Pereira Clarity (U) CLEAR Normal CLEAR [facility] Comment on above: Performed By: #### C BC #### [facility] [address] [place] [address] Dr. Raul Pereira Color (U) YELLOW Normal YELLOW [facility] Comment on above: Performed By: #### C BC #### [facility] [address] [place] [address] Dr. Raul Pereira Crystals LM Nom (Urine sed) NONE SEEN Normal NONE SEEN [facility] Comment on above: Performed By: #### C BC #### [facility] [address] [place] [address] Dr. Raul Pereira Epithelial cells LM Ql (Urine sed) NONE SEEN Normal NONE SEEN /RARE [facility] Comment on above: Performed By: #### C BC #### [facility] [address] [place] [address] Dr. Raul Pereira Glucose Ql (U) Negative Normal NEGATIVE [facility] Comment on above: Performed By: #### C BC #### [facility] [address] [place] [address] Dr. Raul Pereira Hemoglobin Ql (U) Negative Normal NEGATIVE [facility] Comment on above: Performed By: #### C BC #### [facility] [address] [place] [address] Dr. Raul Pereira Ketones Ql (U) Negative Normal NEGATIVE [facility] Comment on above: Performed By: #### C BC #### [facility] [address] [place] [address] Dr. Raul Pereira LEUKOCYTES Negative Normal NEGATIVE [facility] Comment on above: Performed By: #### C BC #### [facility] [address] [place] [address] Dr. Raul Pereira MUCOUS NONE SEEN Normal NONE SEEN [facility] Comment on above: Performed By: #### C BC #### [facility] [address] [place] [address] Dr. Raul Pereira Nitrite Ql (U) Negative Normal NEGATIVE [facility] Comment on above: Performed By: #### C BC #### [facility] [address] [place] [address] Dr. Raul Pereira pH (U) 5.5 [pH] Normal 5-9 [facility] Comment on above: Performed By: #### C BC #### [facility] [address] [place] [address] Dr. Raul Pereira RBC NONE SEEN Abnormal 0-2 [facility] Comment on above: Performed By: #### C BC #### [facility] [address] [place] [address] Dr. Raul Pereira SPEC GRAVITY 1.030 Abnormal 1.005-<=1.02 5 [facility] Comment on above: Performed By: #### C BC #### [facility] [address] [place] [address] Dr. Raul Pereira UA PROTEIN Negative Normal NEGATIVE/ TRACE [facility] Comment on above: Performed By: #### C BC #### [facility] [address] [place] [address] Dr. Raul Pereira Urobilinogen Qn (U) 0.2 {Farrukh'U}/dL Normal 0.2 - 1. 0 [facility] Comment on above: Performed By: #### C BC #### [facility] [address] [place] [address] Dr. Raul Pereira WBC NONE SEEN Normal NONE SEEN [facility] Comment on above: Performed By: #### C BC #### [facility] [address] [place] [address] Dr. Raul Pereira VITAMIN D 25 OHon 01-31-2023 VIT D 25-OH 40.8 ng/mL Normal [facility] Comment on above: Performed By: #### C VDTBH #### [facility] [address] [place] [address] Dr. Raul Pereira VIT D RANGES SEE BELOW Normal [facility] Comment on above: Result Comment: <20 ng/mL Vit D deficient 20 - <30 ng/mL Vit D insufficient 30 - 100 ng/mL Vit D sufficient >100 ng/mL Potential Toxicity Performed By: #### C VDTBH #### [facility] [address] [place] [address] Dr. Raul Pereira VC VENOUS REFLUX ALEXUS LMTon 0 01-30-2023 VC VENOUS REFLUX ALEXUS LMT Patient: VIDA MEJIA Exam Date: 01/30/2023 : 1960 Gender:F Ordering : DR NAPOLEON RAHMAN . Admission #: [id number] Family : Order #: [id number] CLICK HERE TO VIEW EXAM RADIOLOGY REPORT [...] thrombus. Compressibility: Normal. Flow: Deep venous reflux. 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 [...] great saphenous vein along with dilated, incompetent employment specialist veins and numerous branch saphenous varicosities. 2. 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 Proximal closer with endovenous laser ablation may be beneficial followed by treatment with microfoam chemical ablation. Incompetent lower leg employment specialist vein which may contribute to patient's reflux; laser ablation is recommended. Dilated, incompetent branch saphenous varicosities which would benefit from microfoam chemical ablation. 3. Consultation for endovenous ablation is recommended. Dictated by: Reinaldo Lipscomb M.D. on 01/31/2023 at 09:46 Approved by: Reinaldo Lipscomb M.D. on 01/31/2023 at 09:51 Normal [facility] CBC AUTO DIFFon 01-13-2023 BASO # 0.0 103/ul Normal 0.0-0.1 [facility] Comment on above: Performed By: #### C BC #### [facility] [address] [address] [address] Raul Pereira Basophils/100 WBC (Bld) 0.5 % Normal 0.2-2.0 [facility] Comment on above: Performed By: #### C BC #### [facility] [address] [address] [address] Raul Pereira EO # 0.1 103/ul Normal 0.0-0.7 [facility] Comment on above: Performed By: #### C BC #### [facility] [address] [place] [address] Dr. Raul Pereira Eosinophils/100 WBC (Bld) 1.7 % Normal 0.9-7.0 [facility] Comment on above: Performed By: #### C BC #### [facility] [address] [place] [address] Dr. Raul Pereira Erythrocyte distribution width (RBC) [Ratio] 18.4 % Critically high 11.0-15.0 [facility] Comment on above: Performed By: #### C BC #### [facility] [address] [place] [address] Dr. Raul Pereira Hematocrit (Bld) [Volume fraction] 33.1 % Critically low 36.0-48.0 [facility] Comment on above: Performed By: #### C BC #### [facility] [address] [place] [address] Dr. Raul Pereira Hemoglobin (Bld) [Mass/Vol] 10.4 g/dL Critically low 12.0-16.0 [facility] Comment on above: Performed By: #### C BC #### [facility] [address] [place] [address] Dr. Raul Pereira IG # 0.03 10e3/ul Normal 0.00-0.03 [facility] Comment on above: Performed By: #### C BC #### [facility] [address] [place] [address] Dr. Raul Pereira IG % 0.4 % Normal 0.0-0.5 [facility] Comment on above: Performed By: #### C BC #### [facility] [address] [place] [address] Dr. Raul Pereira LYMPH # 1.9 103/ul Normal 1.2-3.8 [facility] Comment on above: Performed By: #### C BC #### [facility] [address] [place] [address] Dr. Raul Pereira Lymphocytes/100 WBC (Bld) 25.2 % Normal 20.5-60.0 [facility] Comment on above: Performed By: #### C BC #### [facility] [address] [place] [address] Dr. Raul Pereira MANUAL DIFF REQ NO Normal [facility] Comment on above: Performed By: #### C BC #### [facility] [address] [place] [address] Dr. Raul Pereira MCH (RBC) [Entitic mass] 24.1 pg Critically low 26.7-34.0 [facility] Comment on above: Performed By: #### C BC #### [facility] [address] [place] [address] Dr. Raul Pereira MCHC (RBC) [Mass/Vol] 31.4 g/dL Normal 29.9-35.2 [facility] Comment on above: Performed By: #### C BC #### [facility] [address] [place] [address] Dr. Raul Pereira MCV (RBC) [Entitic vol] 76.6 fL Critically low 81.0-99.0 [facility] Comment on above: Performed By: #### C BC #### [facility] [address] [place] [address] Dr. Raul Pereira MONO # 0.8 103/ul Normal 0.3-0.8 [facility] Comment on above: Performed By: #### C BC #### [facility] [address] [place] [address] Dr. Raul Pereira Monocytes/100 WBC (Bld) 10.7 % Normal 1.7-12.0 [facility] Comment on above: Performed By: #### C BC #### [facility] [address] [place] [address] Dr. Raul Pereira NEUT # 4.7 103/ul Normal 1.4-6.5 [facility] Comment on above: Performed By: #### C BC #### [facility] [address] [place] [address] Dr. Raul Pereira Neutrophils/100 WBC (Bld) 61.5 % Normal 43.0-75.0 [facility] Comment on above: Performed By: #### C BC #### [facility] [address] [place], [place] [address] Dr. Raul Pereira Platelet mean volume (Bld) [Entitic vol] 8.6 fL Critically low 9.5-13.5 [facility] Comment on above: Performed By: #### C BC #### [facility] [address] [place], [place] [address] Dr. Raul Pereira PLT 461 103/ul Critically high 150-450 [facility] Comment on above: Performed By: #### C BC #### [facility] [address] [place], [place] [address] Dr. Raul Pereira RBC 4.32 106/ul Normal 4.20-5.40 [facility] Comment on above: Performed By: #### C BC #### [facility] [address] [place], [place] [address] Dr. Raul Pereira WBC 7.6 103/ul Normal 4.0-11.0 [facility] Comment on above: Performed By: #### C BC #### [facility] [id number] Raul Pereira FREE THYROXINE INDEX T7on FTI 2.10 Normal 1.30-4.50 [facility] Comment on above: Performed By: #### T 7, CMP, TSH, LIPID ####[facility] [address] [place], [place] [address]QlDr. Raul Pereira T3U 35.0 % Normal 30.0-39.0 [facility] Comment on above: Performed By: #### T 7, CMP, TSH, LIPID ####[facility] [address] [place], [place] [address]DrDr. Raul Pereira T4 [Mass/Vol] 6.00 ug/dL Normal 4.80-13.[address] [facility] Comment on above: Performed By: #### T 7, CMP, TSH, LIPID ####[facility] [address] [place], [place] [address]Dr. Raul Pereira GLYCOHEMOGLOBIN A1Con 2022 ADA RECOMMENDATION SEE BELOW Normal [facility] Comment on above: Result Comment: ADA RECOMMENDED LIMIT 4.0 - 6.0 ADA THERAPEUTIC TARGET < 7.0 ACTION SUGGESTED > 7.0 Performed By: #### C VDTBH #### [facility] [address] [address] [address] Raul Pereira Glucose [Mass/Vol] 108 mg/dL Normal [facility] Comment on above: Performed By: #### C VDTBH #### [facility] [address] [address] [address] Raul Pereira HbA1c (Bld) [Mass fraction] 5.4 % Normal 4.5-6.2 [facility] Comment on above: Performed By: #### C VDTBH #### [facility] [address] [address] [address] Raul Pereira IRON AND TIBCon 01-13-2023 % SATURATION 3.5 % Normal [facility] Comment on above: Performed By: #### F ETIBC, B12FOL, VITAD ####[facility] [address] [address]DrLeann Pereira Iron [Mass/Vol] 18.0 ug/dL Critically low 50.0-170.0 [facility] Comment on above: Performed By: #### F ETIBC, B12FOL, VITAD ####[facility] [address] [id number] Pereira TIBC DIRECT 513.0 ug/dL Critically high 250.0-450.0 [facility] Comment on above: Performed By: #### F ETIBC, B12FOL, VITAD ####[facility] [address] [address]Dr. Raul Pereira LIPID PROFILEon 01-13-2023 CHOL-HDL RATIO NORM SEE BELOW Normal [facility] Comment on above: Result Comment: 3.3 - 4.4 LOW RISK 4.4 - 7.1 AVERAGE RISK 7.1 - 11.0 MODERATE RISK >11.0 HIGH RISK Performed By: #### T 7, CMP, TSH, LIPID ####[facility] [address] [address]DrLeann Pereira Cholesterol [Mass/Vol] 190 mg/dL Normal <=200 [facility] Comment on above: Performed By: #### T 7, CMP, TSH, LIPID ####[facility] [address] [id number]. Raul Pereira Cholesterol in HDL [Mass/Vol] 71 mg/dL Critically high 40-60 [facility] Comment on above: Performed By: #### T 7, CMP, TSH, LIPID ####[facility] [address] [id number]. Raul Pereira Cholesterol in LDL [Mass/Vol] 104.6 mg/dL Normal [facility] Comment on above: Performed By: #### T 7, CMP, TSH, LIPID ####[facility] [address] [id number]. Raul Pereira Cholesterol.total/C holesterol in HDL [Mass ratio] 2.7 {ratio} Normal [facility] Comment on above: Performed By: #### T 7, CMP, TSH, LIPID ####[facility] [address] [id number]. Raul Pereira HDL NORMAL > or = 60 mg/dl - LO W CARDIOVASCULAR RISK <40 mg/dl - HIGH CARDIOVASCULAR RISK Normal [facility] Comment on above: Performed By: #### T 7, CMP, TSH, LIPID ####[facility] [address] [id number]. Raul Pereira LDL CALC NORMAL SEE BELOW Normal [facility] Comment on above: Result Comment: <100 mg/dl OPTIMAL 100 - 129 mg/dl NEAR OR ABOVE OPTIMAL 130 - 159 mg/dl BORDERLINE HIGH 160 - 189 mg/dl HIGH >190 mg/dl VERY HIGH Performed By: #### T 7, CMP, TSH, LIPID ####[facility] [address] [id number]. Raul Pereira Triglyceride [Mass/Vol] 72 mg/dL Normal <=150 [facility] Comment on above: Performed By: #### T 7, CMP, TSH, LIPID ####[facility] [address] [id number]. Raul Pereira VLDL CALC 14.4 mg/dL Normal [facility] Comment on above: Performed By: #### T 7, CMP, TSH, LIPID ####[facility] [address] [address]Dr. Raul Pereira PROF 14(COMP METB)on 023 Albumin [Mass/Vol] 3.5 g/dL Normal 3.4-5.0 [facility] Comment on above: Performed By: #### T 7, CMP, TSH, LIPID ####[facility] [address] [address]Dr. Raul Pereira Albumin/Globulin [Mass ratio] 1.1 {ratio} Normal [facility] Comment on above: Performed By: #### T 7, CMP, TSH, LIPID ####[facility] [address] [address]Dr. Raul Pereira ALP [Catalytic activity/Vol] 92 U/L Normal 46-116 [facility] Comment on above: Performed By: #### T 7, CMP, TSH, LIPID ####[facility] [address] [address]Dr. Raul Pereira ALT [Catalytic activity/Vol] 17 U/L Normal 14-59 [facility] Comment on above: Performed By: #### T 7, CMP, TSH, LIPID ####[facility] [address] [address]Dr. Raul Pereira Anion gap [Moles/Vol] 10.0 mmol/L Normal [facility] Comment on above: Performed By: #### T 7, CMP, TSH, LIPID ####[facility] [address] [address]Dr. Raul Pereira AST [Catalytic activity/Vol] 17 U/L Normal 15-37 [facility] Comment on above: Performed By: #### T 7, CMP, TSH, LIPID ####[facility] [address] [address]Dr. Raul Pereira Bilirubin [Mass/Vol] 0.2 mg/dL Normal 0.2-1.0 [facility] Comment on above: Performed By: #### T 7, CMP, TSH, LIPID ####[facility] [address] [address]Dr. Raul Pereira Calcium [Mass/Vol] 8.8 mg/dL Normal 8.5-10.1 [facility] Comment on above: Performed By: #### T 7, CMP, TSH, LIPID ####[facility] [address] [address]Dr. Raul Pereira Chloride [Moles/Vol] 101 mmol/L Normal 98-107 [facility] Comment on above: Performed By: #### T 7, CMP, TSH, LIPID ####[facility] [address] [address]Dr. Raul Pereira CO2 [Moles/Vol] 29.4 mmol/L Normal 21.0-32.0 [facility] Comment on above: Performed By: #### T 7, CMP, TSH, LIPID ####[facility] [address] [address]Dr. Raul Pereira Creatinine [Mass/Vol] 0.50 mg/dL Critically low 0.55-1.02 [facility] Comment on above: Performed By: #### T 7, CMP, TSH, LIPID ####[facility] [address] [address]Dr. Raul Pereira EGFR-AF MALIAN >60 Normal >=60 [facility] Comment on above: Performed By: #### T 7, CMP, TSH, LIPID ####[facility] [address] [address]Dr. Raul Pereira EGFR-NON AF MALIAN >60 Normal >=60 [facility] Comment on above: Performed By: #### T 7, CMP, TSH, LIPID ####[facility] [address] [address]Dr. Raul Pereira Globulin (S) [Mass/Vol] 3.2 g/dL Normal [facility] Comment on above: Performed By: #### T 7, CMP, TSH, LIPID ####[facility] [address] [address]Dr. Raul Pereira Glucose [Mass/Vol] 88 mg/dL Normal 74-106 [facility] Comment on above: Performed By: #### T 7, CMP, TSH, LIPID ####[facility] [address] [address]Dr. Raul Pereira Potassium [Moles/Vol] 4.4 mmol/L Normal 3.5-5.1 [facility] Comment on above: Performed By: #### T 7, CMP, TSH, LIPID ####[facility] [address] [address]Dr. Raul Pereira Protein [Mass/Vol] 6.7 g/dL Normal 6.4-8.2 [facility] Comment on above: Performed By: #### T 7, CMP, TSH, LIPID ####[facility] [address] [address]Dr. Raul Pereira Sodium [Moles/Vol] 136 mmol/L Normal 136-145 [facility] Comment on above: Performed By: #### T 7, CMP, TSH, LIPID ####[facility] [address] [address]Dr. Raul Pereira Urea nitrogen [Mass/Vol] 12.0 mg/dL Normal 7.0-18.0 [facility] Comment on above: Performed By: #### T 7, CMP, TSH, LIPID ####[facility] [address] [address]Dr. Raul Pereira Urea nitrogen/Creatinine [Mass ratio] 24.0 mg/mg Normal [facility] Comment on above: Performed By: #### T 7, CMP, TSH, LIPID ####[facility] [address] [address]Dr. Raul Randall TSHon 01-13-2023 TSH 1.623 uIU/mL Normal 0.358-3.740 [facility] Comment on above: Performed By: #### T 7, CMP, TSH, LIPID ####[facility] [address] [address]Dr. Raul Randall VIT B12 AND FOLATEon 023 Cobalamin (Vitamin B12) [Mass/Vol] 872.0 pg/mL Normal 193.0-986.0 [facility] Comment on above: Performed By: #### F ETIBC, B12FOL, VITAD ####[facility] [address] [address]Dr. Raul Pereira FOLATE 21.20 ng/mL Normal 8.60-58.90 [facility] Comment on above: Performed By: #### F ETIBC, B12FOL, VITAD ####[facility] [address] [address]Dr. Raul Pereira VITAMIN D 25 OHon 01-13-2023 VIT D 25-OH 40.6 ng/mL Normal [facility] Comment on above: Performed By: #### F ETIBC, B12FOL, VITAD ####[facility] [address] [address]Dr. Raul Pereira VIT D RANGES SEE BELOW Normal [facility] Comment on above: Result Comment: <20 ng/mL Vit D deficient 20 - <30 ng/mL Vit D insufficient 30 - 100 ng/mL Vit D sufficient >100 ng/mL Potential Toxicity Performed By: #### F ETIBC, B12FOL, VITAD ####[facility] [address] [place] [address] [address]Dr. Raul Pereira CBC AUTO DIFFon 01-10-2023 BASO # 0.1 103/ul Normal 0.0-0.1 [facility] Comment on above: Performed By: #### C VDTBH #### [facility] [address] [place] [address] Dr. Raul Pereira Basophils/100 WBC (Bld) 0.6 % Normal 0.2-2.0 [facility] Comment on above: Performed By: #### C VDTBH #### [facility] [address] [place] [address] Dr. Raul Pereira EO # 0.1 103/ul Normal 0.0-0.7 [facility] Comment on above: Performed By: #### C VDTBH #### [facility] [address] [place] [address] Dr. Raul Pereira Eosinophils/100 WBC (Bld) 1.3 % Normal 0.9-7.0 [facility] Comment on above: Performed By: #### C VDTBH #### [facility] [address] [place] [address] Dr. Raul Pereira Erythrocyte distribution width (RBC) [Ratio] 18.4 % Critically high 11.0-15.0 [facility] Comment on above: Performed By: #### C VDTBH #### [facility] [address] [place] [address] Dr. Raul Pereira Hematocrit (Bld) [Volume fraction] 37.8 % Normal 36.0-48.0 [facility] Comment on above: Performed By: #### C VDTBH #### [facility] [address] [place] [address] Dr. Raul Pereira Hemoglobin (Bld) [Mass/Vol] 11.6 g/dL Critically low 12.0-16.0 [facility] Comment on above: Performed By: #### C VDTBH #### [facility] [address] [place] [address] Dr. Raul Pereira IG # 0.02 10e3/ul Normal 0.00-0.03 [facility] Comment on above: Performed By: #### C VDTBH #### [facility] [address] [place] [address] Dr. Raul Pereira IG % 0.3 % Normal 0.0-0.5 [facility] Comment on above: Performed By: #### C VDTBH #### [facility] [address] [place] [address] Dr. Raul Pereira LYMPH # 1.7 103/ul Normal 1.2-3.8 [facility] Comment on above: Performed By: #### C VDTBH #### [facility] [address] [place] [address] Dr. Raul Pereira Lymphocytes/100 WBC (Bld) 21.0 % Normal 20.5-60.0 [facility] Comment on above: Performed By: #### C VDTBH #### [facility] [address] [place] [address] Dr. Raul Pereira MANUAL DIFF REQ NO Normal [facility] Comment on above: Performed By: #### C VDTBH #### [facility] [address] [place] [address] Dr. Raul Pereira MCH (RBC) [Entitic mass] 24.1 pg Critically low 26.7-34.0 [facility] Comment on above: Performed By: #### C VDTBH #### [facility] [address] [place] [address] Dr. Raul Pereira MCHC (RBC) [Mass/Vol] 30.7 g/dL Normal 29.9-35.2 [facility] Comment on above: Performed By: #### C VDTBH #### [facility] [address] [place] [address] Dr. Raul Pereira MCV (RBC) [Entitic vol] 78.6 fL Critically low 81.0-99.0 [facility] Comment on above: Performed By: #### C VDTBH #### [facility] [address] [place] [address] Dr. Raul Pereira MONO # 0.6 103/ul Normal 0.3-0.8 [facility] Comment on above: Performed By: #### C VDTBH #### [facility] [address] [place] [address] Dr. Raul Pereira Monocytes/100 WBC (Bld) 7.5 % Normal 1.7-12.0 [facility] Comment on above: Performed By: #### C VDTBH #### [facility] [address] [place] [address] Dr. Raul Pereira NEUT # 5.4 103/ul Normal 1.4-6.5 [facility] Comment on above: Performed By: #### C VDTBH #### [facility] [address] [place] [address] Dr. Raul Pereira Neutrophils/100 WBC (Bld) 69.3 % Normal 43.0-75.0 [facility] Comment on above: Performed By: #### C VDTBH #### [facility] [address] [address] [address] Raul Pereira Platelet mean volume (Bld) [Entitic vol] 9.0 fL Critically low 9.5-13.5 [facility] Comment on above: Performed By: #### C VDTBH #### [facility] [address] [address] [address] Raul Pereira PLT 516 103/ul Critically high 150-450 [facility] Comment on above: Performed By: #### C VDTBH #### [facility] [address] [address] [address] Raul Pereira RBC 4.81 106/ul Normal 4.20-5.40 [facility] Comment on above: Performed By: #### C VDTBH #### [facility] [address] [address] [address] Raul Pereira WBC 7.8 103/ul Normal 4.0-11.0 [facility] Comment on above: Performed By: #### C VDTBH #### [facility] [id number] Raul Pereira CULTURE BLOODon 01-10-2023 Microscopic examination of blood, culture Culture Observations: NO GROWTH AT 5 DAYS. Normal [facility] Comment on above: Performed By: #### B [id number] #### [facility] [address] [address] [address] Raul Pereira Microscopic examination of blood, culture Culture Observations: NO GROWTH AT 5 DAYS. Normal [facility] Comment on above: Performed By: #### B [id number] ####[facility] [id number] [id number]. Raul Pereira PROF 14(COMP METB)on 023 Albumin [Mass/Vol] 3.7 g/dL Normal 3.4-5.0 [facility] Comment on above: Performed By: #### C BC #### [facility] [address] [address] [address] Raul Pereira Albumin/Globulin [Mass ratio] 0.9 {ratio} Normal [facility] Comment on above: Performed By: #### C BC #### [facility] [address] [address] [address] Raul Pereira ALP [Catalytic activity/Vol] 105 U/L Normal 46-116 [facility] Comment on above: Performed By: #### C BC #### [facility] [address] [address] [address] Raul Pereira ALT [Catalytic activity/Vol] 18 U/L Normal 14-59 [facility] Comment on above: Performed By: #### C BC #### [facility] [address] [address] [address] Raul Pereira Anion gap [Moles/Vol] 10.8 mmol/L Normal [facility] Comment on above: Performed By: #### C BC #### [facility] [address] [place] [address] Dr. Raul Pereira AST [Catalytic activity/Vol] 21 U/L Normal 15-37 [facility] Comment on above: Performed By: #### C BC #### [facility] [address] [address] [address] Raul Pereira Bilirubin [Mass/Vol] 0.3 mg/dL Normal 0.2-1.0 [facility] Comment on above: Performed By: #### C BC #### [facility] [address] [place] [address] Dr. Raul Pereira Calcium [Mass/Vol] 9.1 mg/dL Normal 8.5-10.1 [facility] Comment on above: Performed By: #### C BC #### [facility] [address] [address] [address] Raul Pereira Chloride [Moles/Vol] 100 mmol/L Normal 98-107 [facility] Comment on above: Performed By: #### C BC #### [facility] [address] [address] [address] Raul Pereira CO2 [Moles/Vol] 30.8 mmol/L Normal 21.0-32.0 [facility] Comment on above: Performed By: #### C BC #### [facility] [address] [address] [address] Raul Pereira Creatinine [Mass/Vol] 0.58 mg/dL Normal 0.55-1.02 [facility] Comment on above: Performed By: #### C BC #### [facility] [address] [place] [address] Dr. Raul Pereira EGFR-AF MALIAN >60 Normal >=60 [facility] Comment on above: Performed By: #### C BC #### [facility] [address] [address] [address] Raul Pereira EGFR-NON AF MALIAN >60 Normal >=60 [facility] Comment on above: Performed By: #### C BC #### [facility] [address] [place] [address] Dr. Raul Pereira Globulin (S) [Mass/Vol] 4.1 g/dL Normal [facility] Comment on above: Performed By: #### C BC #### [facility] [address] [place] [address] Dr. Raul Pereira Glucose [Mass/Vol] 86 mg/dL Normal 74-106 [facility] Comment on above: Performed By: #### C BC #### [facility] [address] [place] [address] Dr. Raul Pereira Potassium [Moles/Vol] 4.6 mmol/L Normal 3.5-5.1 [facility] Comment on above: Performed By: #### C BC #### [facility] [address] [place] [address] Dr. Raul Pereira Protein [Mass/Vol] 7.8 g/dL Normal 6.4-8.2 [facility] Comment on above: Performed By: #### C BC #### [facility] [address] [place] [address] Dr. Raul Pereira Sodium [Moles/Vol] 137 mmol/L Normal 136-145 [facility] Comment on above: Performed By: #### C BC #### [facility] [address] [place] [address] Dr. Raul Pereira Urea nitrogen [Mass/Vol] 9.0 mg/dL Normal 7.0-18.0 [facility] Comment on above: Performed By: #### C BC #### [facility] [address] [address] [address] Raul Pereira Urea nitrogen/Creatinine [Mass ratio] 15.5 mg/mg Normal [facility] Comment on above: Performed By: #### C BC #### [facility] [address] [address] [address] Raul Pereira US PREMA DOP LEG [...] prominent edema and swelling. Electronically authenticated by: REINALDO LIPSCOMB Date: 2023-01-10 10:43 Normal [facility] Covid-19 PCR (CVDTB)on 11-18 SARS-CoV-2 (COVID-19) RNA IMELDA+probe Ql (Unsp spec) Not detected Normal NOT DETECTED [facility] Comment on above: Result Comment: This test is not yet approved or cleared by the [place] FDA. When there are no FDA-approved or cleared tests available, and other criteria are met, FDA can make tests available under an emergency access mechanism called an Emergency Use Authorization (EUA). The EUA for this test is supported by the [employer] of Health and Human Service's (HHS's) declaration [...] SARS-CoV-2. Performed By: #### C VDTBH #### [facility] [address] [place] [address] Dr. Raul Pereira CALCIUMon 12-03-2022 Calcium [Mass/Vol] 9.7 mg/dL Normal 8.5-10.1 [facility] Comment on above: Performed By: #### C VDTBH #### [facility] [address] [address] [address] Raul Pereira CREATININEon 12-03-2022 Creatinine [Mass/Vol] 0.53 mg/dL Critically low 0.55-1.02 [facility] Comment on above: Performed By: #### C BC #### [facility] [address] [place] [address] Dr. Raul Pereira EGFR-AF MALIAN >60 Normal >=60 [facility] Comment on above: Performed By: #### C BC #### [facility] [address] [place] [address] Dr. Raul Pereira EGFR-NON AF MALIAN >60 Normal >=60 [facility] Comment on above: Performed By: #### C BC #### [facility] [address] [place] [address] Dr. Raul Pereira Office Visiton 08-27-2022 Follow-up visit [id number] Lex Mejia L 1960 F Date Provider Department Center 08/27/2022 Nella-MICAELA GUPTA [facility] SURG Second Fl No family history on file Level of Service:86831 DE POSTOP FOLLOW UP VISIT RELATED TO ORIGINAL PX Reason for Visit and Comments: Post-op [483] - Vida is here today for a post op visit, s/p 08/16/22 LAP ZEESHAN Normal [facility] HISTOLOGY - TISSUE EXAMon LAB AP CASE REPORT Normal [facility] Comment on above: Order Comment: Pre-o p diagnosis:Calculus of gallbladder without cholecystitis without obstruction [K80.20] Result Comment: Surg ical Pathology Case: [id number] Authorizing Provider: Micaela Gupta MD Collected: 08/16/2022 0842 Ordering Location: [facility] Main Operating Room Received: 08/16/2022 1001 Pathologist: Maricruz Warren MD Specimen: Gallbladder, GALLBLADDER Performed By: #### L [id number] ####[facility] ([facility])[address] [place] [address] LAB AP CLINICAL INFORMATION Normal [facility] Comment on above: Order Comment: Pre-o p diagnosis:Calculus of gallbladder without cholecystitis without obstruction [K80.20] Result Comment: Pre- op diagnosis: Calculus of gallbladder without cholecystitis without obstruction [K80.20] Performed By: #### L [id number] ####[facility] ([facility])[address] [facility] [place] [address] LAB AP GROSS DESCRIPTION A. Gallbladder. Normal [facility] Comment on above: Order Comment: Pre-o p diagnosis:Calculus of gallbladder without cholecystitis without obstruction [K80.20] Result Comment: Rece ived in formalin , labeled Vida L Hilary, GALLBLADDER . The specimen consists [...] 0.1 to 0.2 cm in maximum thickness. Physical Anthropologist sections submitted as follows: Cassette 1: Cystic duct resection margin and neck Cassette 2: Body and fundus Ankit Koroma, [employer] Principal Performed By: #### L [id number] ####[facility] ([facility])[address] [facility] [place] [address] LAB AP MICROSCOPIC DESCRIPTION Microscopic examination performed Normal [facility] Comment on above: Order Comment: Pre-o p diagnosis:Calculus of gallbladder without cholecystitis without obstruction [K80.20] Performed By: #### L [id number] ####[facility] ([facility])[address] [place] [address] LAB AP REPORT FINAL DIAGNOSIS NARRATIVE [facility] Comment on above: Order Comment: Pre-o p diagnosis:Calculus of gallbladder without cholecystitis without obstruction [K80.20] Result Comment: Gall bladder, cholecystectomy: - Cholelithiasis and cholesterolosis. Performed By: #### L [id number] ####[facility] ([facility])[address] [facility] [place] [address] [facility] 08-16-2022 HP ----- ----- Attestation signed by Micaela Gupta MD at 08/16/2022 7:34 AM Attending Physician Statement I have discussed the case, including pertinent history and exam findings with Dr. Del Angel, resident surgeon and have personally seen the patient. I agree with the assessment, plan and orders as documented. [phone] pager [phone] phone ----- [facility] HISTORY & PHYSICAL Chief Complaint: RUQ abdominal pain History of Present Illness: Vida Mejia is a 62 y.o. female with [...] History: Diagnosis Date Anxiety Arthritis Chronic bronchitis ([facility]/HCC) Depression DVT (deep venous thrombosis) ([facility]) Gall bladder disease GERD (gastroesophageal [...] Component Value (more content not included)... Normal [facility] NURSNOTEon 08-16-2022 NURSNOTE Stable. Pain minimal . DC criteria met. IV dc'd and patient getting dressed. 1155 Stable for discharge. Normal [facility] NURSNOTE DC instructions revi ewed with patient and Granddaughter, allowed time for questions, copy given. [facility] NURSNOTE Report rec'd and car e assumed. No assessment changes. Pain minimal. Normal [facility] NURSNOTE 0920 Recovery called. [facility] OPNOTE CHOLECYSTECTOMY, LAPAROSCOPIC Operative Note Date: 08/16/2022 Location: [facility] OR Name: Vida Mejia, : 1960, Diagnosis Pre-op Diagnosis * Calculus of gallbladder without cholecystitis without obstruction [K80.20] * History of gastric bypass [Z98.84] Post-op Diagnosis * Calculus of gallbladder without cholecystitis without obstruction [K80.20] * History of gastric bypass [Z98.84] Procedures CHOLECYSTECTOMY, LAPAROSCOPIC 86824 - DE LAPS SURG CHOLECYSTECTOMY W/CHOLANGIOGRAPHY Surgeons [...] EXAM Micaela Gupta MD 08/16/22 0842 No [id number] Description: GALLBLADDER Staff: Traffic Personnel Supervisor: Zeny De La Cruz RN Scrub Person: Octavia Bolanos CST Indications: Vida Mejia is an 62 y.o. female who [...] PACU - hemodynamically stable. Condition: stable Normal [facility] POCT GLUCOSE METER UNSOLICIT ED RESULTSon 08-16-2022 Glucose [Mass/Vol] 88 mg/dL Normal 70-105 [facility] Comment on above: Result Comment: epaw low Performed By: #### L [id number] #### [facility] ([facility] [address] [place] [address] POCT SARS-COV-2 PCRon 2021 POC SARS-COV-2 ANTIGEN Negative Normal Negative [facility] Comment on above: Result Comment: ID N [...] Certificate of Accreditation. Performed By: #### L [id number] ####[facility] ([facility])[address] [place] [address] Orders Onlyon 08-14-2022 Orders Only [id number] Lex Mejia rri L 1960 F Date Provider Department Center 08/14/2022 [id number], HISTORICAL [facility] Medical C No family history on file Normal [facility] [id number] 08-13-2022 [id number] NPO after MN Must have a stage driver to take you home and someone to stay for 24 hours after surgery. No jewelry. Hold the meds we spoke about: NSAIDS Take the meds we spoke about w/a sip of water DOS: GAPAPENTIN, NEXIUM, INHALER, CYMBALTA Bring insurance card and ID. LABS AND COVID TO BE DONE IN [place]. Normal [facility] CBC AUTO DIFFon 08-13-2022 BASO # 0.0 103/ul Normal 0.0-0.1 [facility] Comment on above: Performed By: #### C BC #### [facility] [address] [place], [place] [address] Dr. Raul Pereira Basophils/100 WBC (Bld) 0.4 % Normal 0.2-2.0 [facility] Comment on above: Performed By: #### C BC #### [facility] [address] [place] [address] Dr. Raul Pereira EO # 0.1 103/ul Normal 0.0-0.7 [facility] Comment on above: Performed By: #### C BC #### [facility] [address] [place] [address] Dr. Raul Pereira Eosinophils/100 WBC (Bld) 1.2 % Normal 0.9-7.0 [facility] Comment on above: Performed By: #### C BC #### [facility] [address] [place] [address] Dr. Raul Pereira Erythrocyte distribution width (RBC) [Ratio] 18.6 % Critically high 11.0-15.0 [facility] Comment on above: Performed By: #### C BC #### [facility] [address] [place] [address] Dr. Raul Pereira Hematocrit (Bld) [Volume fraction] 39.1 % Normal 36.0-48.0 [facility] Comment on above: Performed By: #### C BC #### [facility] [address] [place] [address] Dr. Raul Pereira Hemoglobin (Bld) [Mass/Vol] 12.5 g/dL Normal 12.0-16.0 [facility] Comment on above: Performed By: #### C BC #### [facility] [address] [place] [address] Dr. Raul Pereira IG # 0.03 10e3/ul Normal 0.00-0.03 [facility] Comment on above: Performed By: #### C BC #### [facility] [address] [place] [address] Dr. Raul Pereira IG % 0.4 % Normal 0.0-0.5 [facility] Comment on above: Performed By: #### C BC #### [facility] [address] [place] [address] Dr. Raul Pereira LYMPH # 2.0 103/ul Normal 1.2-3.8 [facility] Comment on above: Performed By: #### C BC #### [facility] [address] [place] [address] Dr. Raul Pereira Lymphocytes/100 WBC (Bld) 27.2 % Normal 20.5-60.0 [facility] Comment on above: Performed By: #### C BC #### [facility] [address] [place] [address] Dr. Raul Pereira MANUAL DIFF REQ NO Normal [facility] Comment on above: Performed By: #### C BC #### [facility] [address] [place] [address] Dr. Raul Pereira MCH (RBC) [Entitic mass] 27.2 pg Normal 26.7-34.0 [facility] Comment on above: Performed By: #### C BC #### [facility] [address] [place] [address] Dr. Raul ePreira MCHC (RBC) [Mass/Vol] 32.0 g/dL Normal 29.9-35.2 [facility] Comment on above: Performed By: #### C BC #### [facility] [address] [place] [address] Dr. Raul Pereira MCV (RBC) [Entitic vol] 85.2 fL Normal 81.0-99.0 [facility] Comment on above: Performed By: #### C BC #### [facility] [address] [place] [address] Dr. Raul Pereira MONO # 0.7 103/ul Normal 0.3-0.8 [facility] Comment on above: Performed By: #### C BC #### [facility] [address] [place] [address] Dr. Raul Pereira Monocytes/100 WBC (Bld) 9.3 % Normal 1.7-12.0 [facility] Comment on above: Performed By: #### C BC #### [facility] [address] [place] [address] Dr. Raul Pereira NEUT # 4.4 103/ul Normal 1.4-6.5 [facility] Comment on above: Performed By: #### C BC #### [facility] [address] [place] [address] Dr. Raul Pereira Neutrophils/100 WBC (Bld) 61.5 % Normal 43.0-75.0 [facility] Comment on above: Performed By: #### C BC #### [facility] [address] [place] [address] Dr. Raul Pereira Platelet mean volume (Bld) [Entitic vol] 8.7 fL Critically low 9.5-13.5 [facility] Comment on above: Performed By: #### C BC #### [facility] [address] [place] [address] Dr. Raul Pereira PLT 387 103/ul Normal 150-450 [facility] Comment on above: Performed By: #### C BC #### [facility] [address] [place] [address] Dr. Raul Pereira RBC 4.59 106/ul Normal 4.20-5.40 [facility] Comment on above: Performed By: #### C BC #### [facility] [address] [place] [address] Dr. Raul Pereira WBC 7.2 103/ul Normal 4.0-11.0 [facility] Comment on above: Performed By: #### C BC #### [facility] [address] [place] [address] Dr. Rual Pereira [facility] SARS-CoV-2 (COVID-19) RNA IMELDA+probe Ql (Unsp spec) Not detected Normal NOT DETECTED [facility] Comment on above: Result Comment: This test is not yet approved or cleared by the [place] FDA. When there are no FDA-approved or cleared tests available, and other criteria are met, FDA can make tests available under an emergency access mechanism called an Emergency Use Authorization (EUA). The EUA for this test is supported by the [employer] of Health and Human Service's (HHS's) declaration [...] SARS-CoV-2. Performed By: #### C VDTB #### [facility] [address] [place] [address] Dr. Raul Pereira PROF CHEM 8 (BAS METB)on Anion gap [Moles/Vol] 11.5 mmol/L Normal [facility] Comment on above: Performed By: #### C BC #### [facility] [address] [place] [address] Dr. Raul Pereira Calcium [Mass/Vol] 9.5 mg/dL Normal 8.5-10.1 [facility] Comment on above: Performed By: #### C BC #### [facility] [address] [place] [address] Dr. Raul Pereira Chloride [Moles/Vol] 101 mmol/L Normal 98-107 [facility] Comment on above: Performed By: #### C BC #### [facility] [address] [place] [address] Dr. Raul Pereira CO2 [Moles/Vol] 29.6 mmol/L Normal 21.0-32.0 [facility] Comment on above: Performed By: #### C BC #### [facility] [address] [place] [address] Dr. Raul Pereira Creatinine [Mass/Vol] 0.65 mg/dL Normal 0.55-1.02 [facility] Comment on above: Performed By: #### C BC #### [facility] [address] [place] [address] Dr. Raul Pereira EGFR-AF MALIAN >60 Normal >=60 [facility] Comment on above: Performed By: #### C BC #### [facility] [address] [place] [address] Dr. Raul Pereira EGFR-NON AF MALIAN >60 Normal >=60 [facility] Comment on above: Performed By: #### C BC #### [facility] [address] [address] [address] Raul Pereira Glucose [Mass/Vol] 104 mg/dL Normal 74-106 [facility] Comment on above: Performed By: #### C BC #### [facility] [address] [address] [address] Raul Pereira Potassium [Moles/Vol] 4.1 mmol/L Normal 3.5-5.1 [facility] Comment on above: Performed By: #### C BC #### [facility] [address] [address] [address] Raul Pereira Sodium [Moles/Vol] 138 mmol/L Normal 136-145 [facility] Comment on above: Performed By: #### C BC #### [facility] [address] [address] [address] Raul Pereira Urea nitrogen [Mass/Vol] 11.0 mg/dL Normal 7.0-18.0 [facility] Comment on above: Performed By: #### C BC #### [facility] [address] [address] [address] Raul Pereira Urea nitrogen/Creatinine [Mass ratio] 16.9 mg/mg Normal [facility] Comment on above: Performed By: #### C BC #### [facility] [address] [address] [address] Raul Pereira Office Visiton 08-06-2022 Follow-up visit [id number] Lex Mejia rrmonica L 1960 F Date Provider Department Center 08/06/2022 454-MICAELA GUPTA [facility] SURG Second Fl No family history on file Level of Service:13502 DE OFFICE/OUTPATIENT ESTABLISHED LOW MDM 20-29 MIN Reason for Visit and Comments: Consult [484] - Vida is here for a gallbladder consult. Vida also c/o swelling in right leg with pain in calf. Normal [facility] PROTIME-INRon 08-06-2022 INR IN PPP BY COAGULATION ASSAY 0.89 Low 0.90-1.10 [facility] Comment on above: Result Comment: ACCC P [...] 1995;108:231S-246S. Performed By: #### L [id number] #### [facility] ([facility]) [address] [place] [address] PROTHROMBIN TIME (PT) IN PPP BY COAGULATION ASSAY 12.1 Seconds Low 12.3-14.8 [facility] Comment on above: Performed By: #### L [id number] #### [facility] ([facility]) [address] [place] [address] CT ABD/PELVIS WO CONon 07-24 CT ABD/PELVIS [...] of the femoral heads. Electronically authenticated by: REINALDO LIPSCOMB Date: 2022-07-24 17:21 Normal [facility] [place] HEPATOBILIARY SCAN W EFon 07-18-2022 [place] HEPATOBILIARY SCAN W EF EXAMINATION: NM HEPATOBILIARY [...] by: MEAGHAN SKINNER Date: 2022-07-18 10:22 Normal [facility] CBC AUTO DIFFon 07-13-2022 BASO # 0.0 103/ul Normal 0.0-0.1 [facility] Comment on above: Performed By: #### C BC #### [facility] [address] [address] [address] Raul Pereira Basophils/100 WBC (Bld) 0.5 % Normal 0.2-2.0 [facility] Comment on above: Performed By: #### C BC #### [facility] [address] [address] [address] Raul Pereira EO # 0.1 103/ul Normal 0.0-0.7 [facility] Comment on above: Performed By: #### C BC #### [facility] [address] [address] [address] Raul Pereira Eosinophils/100 WBC (Bld) 0.9 % Normal 0.9-7.0 [facility] Comment on above: Performed By: #### C BC #### [facility] [address] [address] [address] Raul Pereira Erythrocyte distribution width (RBC) [Ratio] 20.2 % Critically high 11.0-15.0 [facility] Comment on above: Performed By: #### C BC #### [facility] [address] [address] [address] Raul Pereira Hematocrit (Bld) [Volume fraction] 41.1 % Normal 36.0-48.0 [facility] Comment on above: Performed By: #### C BC #### [facility] [address] [address] [address] Raul Pereira Hemoglobin (Bld) [Mass/Vol] 13.2 g/dL Normal 12.0-16.0 [facility] Comment on above: Performed By: #### C BC #### [facility] [address] [address] [address] Raul Pereira IG # 0.05 10e3/ul Critically high 0.00-0.03 [facility] Comment on above: Performed By: #### C BC #### [facility] [address] [address] [address] Raul Pereira IG % 0.6 % Critically high 0.0-0.5 [facility] Comment on above: Performed By: #### C BC #### [facility] [address] [place] [address] Dr. Raul Pereira LYMPH # 1.4 103/ul Normal 1.2-3.8 [facility] Comment on above: Performed By: #### C BC #### [facility] [address] [place] [address] Dr. Raul Pereira Lymphocytes/100 WBC (Bld) 17.3 % Critically low 20.5-60.0 [facility] Comment on above: Performed By: #### C BC #### [facility] [address] [place] [address] Dr. Raul Pereira MANUAL DIFF REQ NO Normal [facility] Comment on above: Performed By: #### C BC #### [facility] [address] [place] [address] Dr. Raul Pereira MCH (RBC) [Entitic mass] 27.3 pg Normal 26.7-34.0 [facility] Comment on above: Performed By: #### C BC #### [facility] [address] [place] [address] Dr. Raul Pereira MCHC (RBC) [Mass/Vol] 32.1 g/dL Normal 29.9-35.2 [facility] Comment on above: Performed By: #### C BC #### [facility] [address] [place] [address] Dr. Raul Pereira MCV (RBC) [Entitic vol] 84.9 fL Normal 81.0-99.0 [facility] Comment on above: Performed By: #### C BC #### [facility] [address] [place] [address] Dr. Raul Pereira MONO # 0.8 103/ul Normal 0.3-0.8 [facility] Comment on above: Performed By: #### C BC #### [facility] [address] [place] [address] Dr. Raul Pereira Monocytes/100 WBC (Bld) 10.0 % Normal 1.7-12.0 [facility] Comment on above: Performed By: #### C BC #### [facility] [address] [place] [address] Dr. Raul Pereira NEUT # 5.8 103/ul Normal 1.4-6.5 [facility] Comment on above: Performed By: #### C BC #### [facility] [address] [place] [address] Dr. Raul Pereira Neutrophils/100 WBC (Bld) 70.7 % Normal 43.0-75.0 [facility] Comment on above: Performed By: #### C BC #### [facility] [address] [place] [address] Dr. Raul Pereira Platelet mean volume (Bld) [Entitic vol] 9.1 fL Critically low 9.5-13.5 [facility] Comment on above: Performed By: #### C BC #### [facility] [address] [place] [address] Dr. Raul Pereira PLT 358 103/ul Normal 150-450 [facility] Comment on above: Performed By: #### C BC #### [facility] [address] [place] [address] Dr. Raul Pereira RBC 4.84 106/ul Normal 4.20-5.40 [facility] Comment on above: Performed By: #### C BC #### [facility] [address] [place] [address] Dr. Raul Pereira WBC 8.1 103/ul Normal 4.0-11.0 [facility] Comment on above: Performed By: #### C BC #### [facility] [address] [place] [address] Dr. Raul Pereira LIPASEon 07-13-2022 Lipase [Catalytic activity/Vol] 47.0 U/L Critically low 73.0-393.0 [facility] Comment on above: Performed By: #### C BC #### [facility] [address] [place] [address] Dr. Raul Pereira PROF 14(COMP METB)on 022 Albumin [Mass/Vol] 3.6 g/dL Normal 3.4-5.0 [facility] Comment on above: Performed By: #### C BC #### [facility] [address] [address] [address] Raul Pereira Albumin/Globulin [Mass ratio] 1.0 {ratio} Normal [facility] Comment on above: Performed By: #### C BC #### [facility] [address] [place] [address] Dr. Raul Pereira ALP [Catalytic activity/Vol] 88 U/L Normal 46-116 [facility] Comment on above: Performed By: #### C BC #### [facility] [address] [place] [address] Dr. Raul Pereira ALT [Catalytic activity/Vol] 16 U/L Normal 14-59 [facility] Comment on above: Performed By: #### C BC #### [facility] [address] [place] [address] Dr. Raul Pereira Anion gap [Moles/Vol] 13.2 mmol/L Normal [facility] Comment on above: Performed By: #### C BC #### [facility] [address] [place] [address] Dr. Raul Pereira AST [Catalytic activity/Vol] 15 U/L Normal 15-37 [facility] Comment on above: Performed By: #### C BC #### [facility] [address] [place] [address] Dr. Raul Pereira Bilirubin [Mass/Vol] 0.2 mg/dL Normal 0.2-1.0 [facility] Comment on above: Performed By: #### C BC #### [facility] [address] [place] [address] Dr. Raul Pereira Calcium [Mass/Vol] 9.5 mg/dL Normal 8.5-10.1 [facility] Comment on above: Performed By: #### C BC #### [facility] [address] [place] [address] Dr. Raul Pereira Chloride [Moles/Vol] 100 mmol/L Normal 98-107 [facility] Comment on above: Performed By: #### C BC #### [facility] [address] [place] [address] Dr. Raul Pereira CO2 [Moles/Vol] 28.0 mmol/L Normal 21.0-32.0 [facility] Comment on above: Performed By: #### C BC #### [facility] [address] [address] [address] Raul Pereira Creatinine [Mass/Vol] 0.78 mg/dL Normal 0.55-1.02 [facility] Comment on above: Performed By: #### C BC #### [facility] [address] [address] [address] Raul Pereira EGFR-AF MALIAN >60 Normal >=60 [facility] Comment on above: Performed By: #### C BC #### [facility] [address] [address] [address] Raul Pereira EGFR-NON AF MALIAN >60 Normal >=60 [facility] Comment on above: Performed By: #### C BC #### [facility] [address] [address] [address] Raul Pereira Globulin (S) [Mass/Vol] 3.6 g/dL Normal [facility] Comment on above: Performed By: #### C BC #### [facility] [address] [address] [address] Raul Pereira Glucose [Mass/Vol] 86 mg/dL Normal 74-106 [facility] Comment on above: Performed By: #### C BC #### [facility] [address] [address] [address] Raul Pereira Potassium [Moles/Vol] 4.2 mmol/L Normal 3.5-5.1 [facility] Comment on above: Performed By: #### C BC #### [facility] [address] [address] [address] Raul Pereira Protein [Mass/Vol] 7.2 g/dL Normal 6.4-8.2 [facility] Comment on above: Performed By: #### C BC #### [facility] [address] [address] [address] Raul Pereira Sodium [Moles/Vol] 137 mmol/L Normal 136-145 [facility] Comment on above: Performed By: #### C BC #### [facility] [address] [place], [place] [address] Dr. Raul Pereira Urea nitrogen [Mass/Vol] 11.0 mg/dL Normal 7.0-18.0 [facility] Comment on above: Performed By: #### C BC #### [facility] [address] [place], [place] [address] Dr. Raul Pereira Urea nitrogen/Creatinine [Mass ratio] 14.1 mg/mg Normal [facility] Comment on above: Performed By: #### C BC #### [facility] [address] [place], [place] [address] Dr. Raul Pereira US SINGLE QUAD RT [...] by: MICAH ROSAS Date: 2022-07-13 16:33 Normal [facility] Covid-19 PCR (CVDTB)on 06-17 SARS-CoV-2 (COVID-19) RNA IMELDA+probe Ql (Unsp spec) Not detected Normal NOT DETECTED [facility] Comment on above: Result Comment: This test is not yet approved or cleared by the [place] FDA. When there are no FDA-approved or cleared tests available, and other criteria are met, FDA can make tests available under an emergency access mechanism called an Emergency Use Authorization (EUA). The EUA for this test is supported by the [place] of Health and Human Service's (HHS's) declaration [...] consistent with SARS-CoV-2. Performed By: #### [facility] #### [facility] [address] [place] [address] Dr. Raul Pereira Endoscopy Reporton 8 Endoscopy Report [id number] Vida Mejia Surgery Date: 02/24/2018 Room #: Z0 Date of : 1960 PROCEDURE NOTEATTENDING: Xin Beasley M.D.PROCEDURE PERFORMED: EGD.STRANDING SUPERVISOR: Dr. Noland.SEDATION:1. Versed 10 mg.2. Fentanyl 250 [...] scope untilit was withdrawn. Date Dict: 02/24/2018/09:53 Isabella/Ruddy Noland M.D.Date Trans: 02/24/2018 12:13 P/sonalioDN_JN:[id number] cc: Napoleon Rahman M.D. [address], [facility] [address] Normal [facility] Endoscopy Report MR#: [id number] Name: Vida Mejia Surgery Date: 02/24/2018 Room #: Z0 Date of : 1960 PROCEDURE NOTEATTENDING: Xin Beasley M.D.PROCEDURE PERFORMED: Colonoscopy and polypectomy.STRANDING SUPERVISOR: Ruddy Noland M.D.SEDATION: Versed 10 mg and [...] 02/24/2018/09:57 A/Ruddy Noland M.D.Date Trans: 02/24/2018 10:12 A/Aditya_JN:[id number] cc: Napoleon Rahman M.D. [address] [place] [address] Normal [facility] POC GLUCOSE LABon 02-24-2018 Glucose mass conc 87 mg/dL Normal 70-100 [facility] Comment on above: Performed By: #### [id number] ####[facility] Vital Signs Date Time Vital Sign Value Performing Clinician Facility NEGATED: Highlighted row BMI (Body Mass Index) [facility] NEGATED: Highlighted row Body Temperature [facility] NEGATED: Highlighted row Body weight Gene [facility] NEGATED: Highlighted row BP Diastolic Gene [facility] NEGATED: Highlighted row BP Systolic [facility] NEGATED: Highlighted row Height [facility] NEGATED: Highlighted row Pulse (Heart Rate) [facility] NEGATED: Highlighted row Pulse Oximetry [facility] NEGATED: Highlighted row Respiratory Rate [facility] Encounters Encounter Date Encounter Type Care Provider Facility Start: 01-30-2024 ambulatory Cristian Johnson acility:[facility] Start: 09-22-2023 End: 09-23-2023 ambulatory Monica Malagon MD Facility: [facility] Start: 04-08-[address] NAPOLEON RAHMAN . Facili ty:[facility] Start: 03-21-2023 End: 03-22-2023 ambulatory EVIE VIDAL . Facility:[facility] Start: 03-05-2023 End: 03-06-2023 ambulatory AMIRA OCAMPO . Facility:[facility] Start: 02-20-2023 End: 02-21-[address] NAPOLEON RAHMAN . Facility:[facility] Start: 02-18-2023 End: 02-19-[address] REINALDO LIPSCOMB Facility:[facility] Start: 02-13-2023 End: 02-14-[address] NAPOLEON RAHMAN . Facility:[facility] Start: 02-12-2023 End: 02-13-[address] NAPOLEON RAHMAN . Facility:[facility] Start: 02-08-2023 Encounter for genera l adult medical examination without abnormal findings DR NAPOLEON RAHMAN . [facility] Start: 01-31-2023 End: 02-01-2023 Encounter [...] laboratory examination DR BETHEL LITTLE . [facility] Start: 12-13-2022 End: 12-14-2022 ambulatory [...] . Facility:[facility] Start: 08-27-2022 End: 08-27-[address] [facility] Start: 08-16-2022 End: 08-16-[address] [facility] Start: 08-15-2022 Encounter for other preprocedural examination DR MICAELA GUPTA [facility] Start: 08-15-2022 Encounter for preprocedural laboratory examination DR MICAELA GUPTA [facility] Start: 08-13-2022 End: 08-14-[address] MICAELA GUPTA Facility:[facility] Start: 08-13-2022 End: 08-14-2022 Encounter for other preprocedural examination DR MICAELA GUPTA Facility:[facility] Start: 08-06-2022 End: 08-07-[address] [facility] Start: 08-06-2022 End: 08-06-[address] [facility] Start: 08-06-[address] [facility] Start: 07-24-2022 End: 07-25-[address] [...] Start: 02-24-2018 End: 02-25-2018 Ambulatory XIN BEASLEY Facility:[facility] Start: 10-19-2014 End: 10-19-2014 Patient encounter procedure [facility] Start: 12-22-2013 End: 12-22-2013 Departed Referred [facility] Start: 10-12-2001 End: 10-12-2001 Patient encounter procedure [facility] Start: 09-01-2001 End: 09-01-2001 Patient encounter procedure [facility] Start: 08-26-2001 End: 08-26-2001 Patient encounter procedure [facility] Start: 03-21-1999 End: 03-28-1999 Evaluation and management of inpatient [facility] Start: 09-07-1997 End: 09-07-1997 Admission to day surgery [facility] Start: 07-21-1997 End: 07-21-1997 Emergency department patient visit [facility] Procedures Date Procedure Procedure Detail Performing Clinician Start: 02-24-2018 Colsc flx w/removal lesion by hot bx forceps XIN BEASLEY Payers Date Payer Category Payer Unknown 1960 Self-pay 1960 Self-pay [id number] 1960 Unknown [id number] 1960 Unknown [id number] 2.16.84 0.1.028861.3.579.2.593 1960 Unknown [id number] 2.16.84 0.1.244959.3.579.2.593 1960 Unknown [id number] 2.16.84 0.1.586182.3.579.2.593 1959 Unknown [id number] 2.16.84 0.1.343132.3.579.2.593 1959 Unknown [id number] 2.16.84 0.1.049435.3.579.2.593 1959 Unknown [id number] 2.16.84 0.1.000554.3.579.2.593 1959 Unknown [id number] 2.16.84 0.1.143369.3.579.2.593 1959 Unknown [id number] 2.16.84 0.1.290632.3.579.2.593 1959 Unknown [id number] 2.16.84 0.1.865860.3.579.2.593 1959 Unknown [id number] 2.16.84 0.1.446470.3.579.2.593 1959 Unknown [id number] 2.16.84 0.1.002590.3.579.2.593 1959 Unknown [id number] 2.16.84 0.1.825658.3.579.2.593 1959 Unknown [id number] 2.16.84 0.1.431085.3.579.2.593 1959 Unknown [id number] 2.16.84 0.1.671810.3.579.2.593 1959 Unknown [id number] 2.16.84 0.1.426788.3.579.2.593 1959 Unknown [id number] 2.16.84 0.1.546764.3.579.2.593 1959 Unknown [id number] 2.16.84 0.1.559849.3.579.2.593 1959 Unknown [id number] 2.16.84 0.1.790154.3.579.2.593 1959 Unknown [id number] 2.16.84 0.1.686361.3.579.2.593 1959 Unknown [id number] 2.16.84 0.1.025479.3.579.2.593 1959 Unknown [id number] 2.16.84 0.1.795867.3.579.2.593 1959 Unknown [id number] 2.16.84 0.1.071500.3.579.2.593 1959 Unknown [id number] 2.16.84 0.1.117536.3.579.2.593 1959 Unknown [id number] 2.16.84 0.1.576998.3.579.2.593 1959 Unknown [id number] 2.16.84 0.1.594797.3.579.2.593 1959 Unknown [id number] 2.16.84 0.1.519328.3.579.2.593 1959 Unknown [id number] 2.16.84 0.1.446245.3.579.2.593 1959 Unknown [id number] 2.16.84 0.1.101348.3.579.2.593 1959 Unknown [id number] 2.16.84 0.1.614555.3.579.2.593 1959 Unknown [id number] 2.16. 840.1.034686.3.579.2.196 Medicare [id number] [id number] Unknown [id number] Unknown [id number] 2.16.84 0.1.830569.3.579.2.593 Unknown [id number] 2.16.8 40.1.330140.3.579.2.531 Clinical Notes 05-15-2022 to 02-18-2023 Note Date [...] our patients to inform us about any wlfs-lre-lervkez medications or herbal remedies/nutritional supplements/alternative remedies. 2. [...] options with their primary care provider. [facility] 01-16-2023 Note CONSULTATION CONSULTATION DATE: [...] up in the clinic post epidural. [facility] 12-04-2022 Note CONSULTATION CONSULTATION DATE: [...] in the office after the procedure. [facility] 11-15-2022 Note CONSULTATION PROCEDURE DATE: [...] the office following her RFA procedure. [facility] 11-15-2022 Note CONSULTATION CONSULTATION DATE: [...] measures such as heat and stretches. [facility] 08-29-2022 Note CONSULTATION PROCEDURE DATE: [...] pattern. Patient tolerated the procedure well. [facility] 08-29-2022 Note CONSULTATION CONSULTATION DATE: [...] up in the office post procedure. [facility] 08-29-2022 Note CONSULTATION CONSULTATION DATE: 08/29/2022 ADDENDUM: Addendum to peer plan: We will repeat radiofrequency ablation starting on the right side and subsequently moving to the left at T11, T12 and L1, L2. [facility] 08-27-2022 Note Subjective Patient ID: Vida Mejia is a 62 y.o. female who presents for Post-op (Vida is here today for a post op [...] past 36 hour(s)). No follow-ups on file. [facility] 08-16-2022 Note Patient: Vida rousseau Procedure Summary Date: 08/16/22 Room / Location: [facility] OPERATING ROOM 01 / [facility] Operating Room Anesthesia Start: 734 Anesthesia Stop: [...] no known notable events for this encounter. [facility] 08-16-2022 Note Airway Date/Time: 08/16/2022 7:44 AM Urgency: elective Airway not difficult General Information and Staff Patient location during procedure: OR Anesthesiologist: Cassi Velez MD Resident/CHILD CARE GROUP LEADER/CAA: LEONARD Canales Performed: resident/CHILD CARE GROUP LEADER/LEONADR Indications and Patient Condition Indications for airway [...] before airway management; Dentures to Circ RN [facility] 08-16-2022 Note Patient: Vida rousseau Procedure Information Date/Time: 08/16/2230 Procedure: CHOLECYSTECTOMY, LAPAROSCOPIC, WITH INTRAOPERATIVE CHOLANGIOGRAM, WITH LAPAROTOMY IF INDICATED REQ ERIC OR MANDO HUERTA MAUK, WOODSON - C-ARM AVAIL STAFF REQUESTS: LENIN DE LA CRUZ Location: [facility] OPERATING ROOM 01 / [facility] Operating Room Surgeons: Micaela Gupta MD Relevant [...] Plan discussed with CAA. Additional Equipment Requests [facility] 08-06-2022 Note Subjective Patient ID: Vida Mejia is a 62 y.o. female who presents for Consult (Vida is here for a gallbladder consult. Vida also c/o swelling in right leg with [...] past 36 hour(s)). No follow-ups on file. [facility] 08-06-2022 Note Subjective Patient ID: Vida Mejia is a 62 y.o. female who presents for Consult (Vida is here for a gallbladder consult.). HPI [...] past 36 hour(s)). No follow-ups on file. [facility] 06-12-2022 Note CONSULTATION PROCEDURE DATE: 06/12/2022 PREOPERATIVE [...] The patient tolerated the procedure well. [facility] 06-12-2022 Note CONSULTATION CONSULTATION DATE: [...] agrees to the plan of care. [facility] 05-15-2022 Note CONSULTATION CONSULTATION DATE: [...] Patient agrees with the plan of care. [facility] Signed and Approved by: RUBY RAMIREZ . 05/16/2022 13:38:00 [facility] 05-15-2022 Note CONSULTATION PROCEDURE DATE: 05/15/2022 PREOPERATIVE [...] will be followed up in the office. [facility] Signed and Approved by: RUBY RAMIREZ . 05/16/2022 13:38:00 [facility] Summary Purpose Family History No [...] and content) DATE CREATED AUTHOR 05/07/2018 [facility] DATE CREATED AUTHOR AUTHOR'S ORGANIZ ATION 09/26/2022 [facility] DATE CREATED AUTHOR AUTHOR'S ORGANIZ ATION 03/28/2023 [facility] DATE CREATED AUTHOR AUTHOR'S ORGANIZ ATION 09/25/2023 [facility] DATE CREATED AUTHOR AUTHOR'S ORGANIZ ATION 03/25/2024 [facility] FOR RECORDS PERTAINING TO [...] BE BASED ON THE PRIMARY CLINICAL RECORDS. [employer] [facility]. provides no warranty or guarantee of the accuracy or completeness of information in this document.
--- NOTE | 2024-06-09 09:08 | P.CN_ITS ---
Consult Note: HPI Data of Consult Patient: known to practice within the last 3 years Requesting Physician: Jennie Rowe NP Primary Care Provider: Ke Rahman MD Consult Narrative Reason for consult: f/u Narrative: Vida mason pleasant 63 year old female presents for evaluation and management of chronic low back pain. 09-22-23 underwent Bilateral L2-3, L4-5 facet medial branch thermal radiofrequency ablation with >50% improvement greater than 6 months. Pain has since returned, pain today 7/10 increasing to 10/10 in low back without numbness tingling and weakness of BLE. Patients PCP manages most of her medications, we prescribe flexeril 5mg TID PRN which she utilizes with benefit. cc:: CC: Jennie Rowe NP Review of Systems ROS Status of ROS 10 or more systems reviewed and unremark able except as noted in history and below Musculoskeletal Reports: back pain [facility] Medical History (Updated 03/03/24 @ 01:33 by Delfino Bunch MD) Upper back pain ?M54.9 - Dorsalgia, unspecified (ICD-10) Back pain ?M54.9 - Dorsalgia, unspecified (ICD-10) Neck pain ?M54.2 - Cervicalgia (ICD-10) Suicidal behavior ?R45.89 - Other symptoms and signs involving emotional state (ICD-10) Panic attack ?F41.0 - Panic disorder [episodic paroxysmal anxiety] (ICD-10) Depressed ?F32.A - Depression, unspecified (ICD-10) Anxiety ?F41.9 - Anxiety disorder, unspecified (ICD-10) Hearing deficit ?H91.90 - Unspecified hearing loss, unspecified ear (ICD-10) Acid reflux ?K21.9 - Gastro-esophageal reflux disease without esophagitis (ICD-10) Left thyroid nodule ?E04.1 - Nontoxic single thyroid nodule (ICD-10) Smoker ?F17.200 - Nicotine dependence, unspecified, uncomplicated (ICD-10) Asthmatic bronchitis ?J45.909 - Unspecified asthma, uncomplicated (ICD-10) Surgical History History of cholecystectomy ?Z90.49 - Acquired absence of other specified parts of digestive tract (ICD- 10) H/O discectomy ?Z98.890 - Other specified postprocedural states (ICD-10) H/O: hysterectomy ?Z90.710 - Acquired absence of both cervix and uterus (ICD-10) Gastric bypass status for obesity ?Z98.84 - Bariatric surgery status (ICD-10) Meds Home Medications and Allergies Home Medications ?Medication ?Instructions ?Recorded ?Confirmed ?Type buprenorphine 10 mcg/hour weekly 1 patch transdermal QWEEK 05/01/23 09/22/23 History transdermal patch (Butrans) calcium carbonate 600 mg-vitamin cap PO .QD 05/01/23 History D3 5 mcg (200 unit) capsule (Calcium 600 + D(3)) cholecalciferol (vitamin D3) 10 10 mcg PO DAILY 05/01/23 05/06/23 History mcg (400 unit) capsule cyclobenzaprine 5 mg tablet 5 mg PO TID 05/01/23 09/22/23 History dextroamphetamine-amphetamine 20 20 mg PO .QD 05/01/23 09/22/23 History mg tablet diclofenac sodium 1 % topical gel 4 g topical QID 05/01/23 09/22/23 History diclofenac sodium 75 mg 75 mg PO .QD 05/01/23 09/22/23 History tablet,delayed release duloxetine 60 mg capsule,delayed 120 mg PO DAILY 05/01/23 09/22/23 History release (Cymbalta) esomeprazole magnesium 20 mg 40 mg PO DAILY 05/01/23 09/22/23 History capsule,delayed release (Nexium) gabapentin 600 mg tablet 600 mg PO TID 05/01/23 09/22/23 History lidocaine 5 % topical ointment 05/01/23 History vitamin B complex (Complex B-100 1 tab PO DAILY 05/01/23 09/22/23 History tablet,extended release) ziprasidone HCl 20 mg capsule 20 mg PO .HS 05/01/23 09/22/23 History Allergies Allergy/AdvReac Type Severity Reaction Status Date / Time iodine Allergy Verified 05/01/23 09:06 latex Allergy Verified 05/01/23 09:06 soybean Allergy Verified 05/01/23 09:06 Sulfa (Sulfonamide Allergy Verified 05/01/23 09:06 Antibiotics) IV DYE Allergy Uncoded 05/01/23 09:06 Exam Constitutional Documenting provider has reviewed patient's vital signs: yes Common normals: no apparent distress, oriented x3, healthy appearing, alert and well nourished General appearance: cooperative HENMT Common normals: normocephalic, hearing grossly normal bilaterally and moist oral mucous membranes Head and scalp: normocephalic Eye Common normals: PERRL Pupil: PERRL Neck & C-Spine Common normals: full ROM General: normal visual inspection Chest Common normals: inspection of chest normal Respiratory Common normals: normal respiratory effort, no retractions and no use of accessory muscles Back & Pelvis Thoracic spine/upper back: ROM limited Lumbar spine/lower back: ROM limited, pain with ROM and straight leg raise negative bilaterally Other: positive facet loading negative radiculopathy strength 5/5 in BLE Extremity Common normals: normal to inspection and full ROM Neuro Common normals: oriented x3, CN's II-XII intact bilaterally, moves all extremities, no focal motor deficits, no sensory deficits noted and deep tendon reflexes 2+ bilaterally Sensorium/orientation: alert Gait (neuro): antalgic Motor exam: strength 5/5 throughout and no movement abnormalities noted Psych Common normals: mental status grossly normal, thought process normal, cooperative, affect normal, speech normal and activity/motor behavior normal Speech: normal speech Thought process: normal thought process Results Additional Findings Additional findings: If on a controlled substance or opioids, I have checked an [place] report on this patient and there are no aberrancies noted in the prescribing history.??If on a controlled substance or opioid a drug screen was completed and reviewed within the last year, and if there has not been a drug screen completed we ordered one today to monitor higher risk, state monitored pain medication use. As part of providing excellent, safe, comprehensive care, the following was completed at our patient's visit: 1. A medication reconciliation and review to ensure accurate knowledge of current/active medications, including asking our patients to inform us about any [id number] medications or herbal remedies/nutritional supplements/alternative remedies. 2. A review to specifically ensure our patients have had annual screening for screening for depression, screening for tobacco use, and screening for unhealthy alcohol use. For concerning screenings had a discussion with the patient, provided patient education, and recommended follow-up with primary care provider when appropriate. If patient noted with a risk of falling, they received education on strength, gait, and balance training to prevent future risk of falling. Assessment and Plan Assessment and Plan (1) Lumbar spondylosis: (2) Myofascial pain: Plan repeat bilateral L2-3 L4-5 facet RFA with IV sedation under fluoroscopy, risks vs benefits reviewed. continue flexeril 5mg TID PRN pain/spasms continue f/u with PCP regarding medications f/u 1 month after RFAs complete
== END 2024-06-09 08:44 | disposition home or self-care (01) ==
PROVIDERS: PCP Family Medicine; Visit Provider Nurse Practitioner
DX: M47.816 Spondylosis without myelopathy or radiculopathy, lumbar region (principal); M79.18 Myalgia, other site
CPT/HCPCS: G0463

== ENCOUNTER 2024-06-21 08:48 | Day surgery (SDC) | payer MEDICARE, OTHER, SELFPAY ==
--- OUTSIDE RECORDS SUMMARY | 2024-06-21 09:06 | XMS_ITS | CCD ---
Author Organization [facility] Care Team Providers Care Machinist/Machine Builder Name Role Phone NAWRAS, ALI T Unavailable Unavailable NAWRAS, ALI T Unavailable Unavailable HOY, NAPOLEON Unavailable Unavailable HOY, NAPOLEON Unavailable Unavailable [place] Unavailable Unavailable NAWRAS, ALI T Unavailable Unavailable [...] Unavailable HOY ., DR BENDER Attending Unavailable PAULINE, DR MEAGHAN [employer] Unavailable HOY ., [...] Unavailable HOY ., DR BENDER Attending Unavailable PAULINE, DR MEAGHAN [employer] Unavailable RAMIREZ ., [...] Propensity to adverse reactions (disorder) 1 [facility] Repository (2 sources) corn extract; Translations: [CORN] Drug Allergy 1 [facility] Repository (6 sources) iodine; Translations: [IODINE] Drug Allergy 9 Edema [facility] Repository (6 sources) Latex; Translations: [LATEX] Drug allergy (disorder) 9 Anaphylaxis [facility] Repository (1 source) loratadine Drug Allergy 1 [facility] Repository (2 sources) loratadine; Translations: [LORATADINE] Drug Allergy 3 [facility] Repository (1 source) montelukast Drug Allergy 1 [facility] Repository (3 sources) papaveretum; Translations: [SOYBEAN] Drug Allergy 1 [facility] Repository (2 sources) Penicillins; Translations: [PENICILLINS] Drug allergy (disorder) 1 [facility] Repository (1 source) povidone-iodine Drug Allergy 9 [facility] Repository (6 sources) propofol; Translations: [PROPOFOL] Drug Allergy 2 Anaphylaxis [facility] Repository (2 sources) wheat preparation; Translations: [WHEAT] Drug Allergy 2 [facility] Repository (5 sources) Iodinated Contrast Media; Translations: [IODINATED CONTRAST MEDIA] Allergy to Substance 4 Anaphylaxis [facility] Repository (1 source) montelukast; Translations: [MONTELUKAST] Drug Allergy 4 [facility] Repository (1 source) oxybutynin; Translations: [DITROPAN] Drug Allergy 2 [facility] Repository (1 source) Povidone-Iodine; Translations: [POVIDONE-IODINE] Drug Allergy 4 [facility] Repository (1 source) Soy protein; Translations: [SOY] Propensity to adverse reactions to drug (disorder) 2 [facility] Repository (1 source) Iodine (And Iodine Containting Drugs) Drug allergy (disorder) 4 [facility] Repository (1 source) Penicillin Drug Allergy [facility] Repository (1 source) Sulfonamides (Antibiotic) Drug allergy (disorder) 2 [facility] Repository (1 source) Iodine Drug Allergy 8 [facility] Repository (1 source) Latex Drug allergy (disorder) 8 [facility] Repository (1 source) Propofol Drug Allergy 8 [facility] Repository Medications Completed/Discontinued Medications Medication Drug Class(es) [...] 07-15-2022 Episodic Other aftercare (1 source) Other care home (current) drug therapy; Translations: [OTH RETIREMENT CURRENT DRUG THERAPY] Onset: 07-15-2022 Episodic Other [...] Facility MRI ROBININE WO CONon 03-05-20 [facility] CSPINE WO CON [...] KRYSTIAN ALFARO Date: 2023-03-05 13:50 Normal [facility] CBC AUTO DIFFon 02-20-2023 BASO # 0.1 103/ul Normal 0.0-0.1 [facility] Comment on above: Performed By: #### C BC #### [facility] [address] [address] [address] Raul Pereira Basophils/100 WBC (Bld) 0.6 % Normal 0.2-2.0 [facility] Comment on above: Performed By: #### C BC #### [facility] [address] [address] [address] Raul Pereira EO # 0.2 103/ul Normal 0.0-0.7 [facility] Comment on above: Performed By: #### C BC #### [facility] [address] [address] [address] Raul Pereira Eosinophils/100 WBC (Bld) 2.3 % Normal 0.9-7.0 [facility] Comment on above: Performed By: #### C BC #### [facility] [address] [address] [address] Raul Pereira Hematocrit (Bld) [Volume fraction] 39.5 % Normal 36.0-48.0 [facility] Comment on above: Performed By: #### C BC #### [facility] [address] [address] [address] Raul Pereira Hemoglobin (Bld) [Mass/Vol] 12.3 g/dL Normal 12.0-16.0 [facility] Comment on above: Performed By: #### C BC #### [facility] [address] [address] [address] Raul Pereira IG # 0.03 10e3/ul Normal 0.00-0.03 [facility] Comment on above: Performed By: #### C BC #### [facility] [address] [place] [address] Dr. Raul Pereira IG % 0.4 % Normal 0.0-0.5 [facility] Comment on above: Performed By: #### C BC #### [facility] [address] [place] [address] Dr. Raul Pereira LYMPH # 2.1 103/ul Normal 1.2-3.8 [facility] Comment on above: Performed By: #### C BC #### [facility] [address] [place] [address] Dr. Raul Pereira Lymphocytes/100 WBC (Bld) 24.8 % Normal 20.5-60.0 [facility] Comment on above: Performed By: #### C BC #### [facility] [address] [place] [address] Dr. Raul Pereira MANUAL DIFF REQ NO Normal [facility] Comment on above: Performed By: #### C BC #### [facility] [address] [place] [address] Dr. Raul Pereira MCH (RBC) [Entitic mass] 26.3 pg Critically low 26.7-34.0 [facility] Comment on above: Performed By: #### C BC #### [facility] [address] [place] [address] Dr. Raul Pereira MCHC (RBC) [Mass/Vol] 31.1 g/dL Normal 29.9-35.2 [facility] Comment on above: Performed By: #### C BC #### [facility] [address] [place] [address] Dr. Raul Pereira MCV (RBC) [Entitic vol] 84.4 fL Normal 81.0-99.0 [facility] Comment on above: Performed By: #### C BC #### [facility] [address] [place] [address] Dr. Raul Pereira MONO # 1.0 103/ul Critically high 0.3-0.[address] [facility] Comment on above: Performed By: #### C BC #### [facility] [address] [place] [address] Dr. Raul Pereira Monocytes/100 WBC (Bld) 11.8 % Normal 1.7-12.0 [facility] Comment on above: Performed By: #### C BC #### [facility] [address] [place] [address] Dr. Raul Pereira NEUT # 5.0 103/ul Normal 1.4-6.5 [facility] Comment on above: Performed By: #### C BC #### [facility] [address] [place] [address] Dr. Raul Pereira Neutrophils/100 WBC (Bld) 60.1 % Normal 43.0-75.0 [facility] Comment on above: Performed By: #### C BC #### [facility] [address] [place] [address] Dr. Raul Pereira Platelet mean volume (Bld) [Entitic vol] 8.8 fL Critically low 9.5-13.5 [facility] Comment on above: Performed By: #### C BC #### [facility] [address] [place] [address] Dr. Raul Pereira PLT 418 103/ul Normal 150-450 [facility] Comment on above: Performed By: #### C BC #### [facility] [address] [place] [address] Dr. Raul Pereira RBC 4.68 106/ul Normal 4.20-5.40 [facility] Comment on above: Performed By: #### C BC #### [facility] [address] [place] [address] Dr. Raul Pereira WBC 8.3 103/ul Normal 4.0-11.0 [facility] Comment on above: Performed By: #### C BC #### [facility] [address] [place] [address] Dr. Raul Pereira FERRITINon 02-20-2023 Ferritin [Mass/Vol] 15.0 ng/mL Normal 8.0-252.0 [facility] Comment on above: Performed By: #### C BC #### [facility] [address] [place] [address] Dr. Raul Pereira XR CSPINE 2_3 VIEWSon [...] by: REINALDO LIPSCOMB Date: 2023-02-19 06:42 Normal [facility] [...] : DR NAPOLEON RAHMAN . Admission #: [id number] Family : Order #: [id number] CLICK HERE TO VIEW EXAM ECHOCARDIOGRAM REPORT [...] M.D. on 02/13/2023 at 18:54 Normal [facility] CREATININEon 02-12-2023 Creatinine [Mass/Vol] 0.76 mg/dL Normal 0.55-1.02 [facility] Comment on above: Performed By: #### C BC #### [facility] [address] [place] [address] Dr. Raul Pereira EGFR-AF CHILEAN >60 Normal >=60 [facility] Comment on above: Performed By: #### C BC #### [facility] [address] [address] [address] Raul Pereira EGFR-NON AF CHILEAN >60 Normal >=60 [facility] Comment on above: Performed By: #### C BC #### [facility] [address] [place] [address] Dr. Raul Pereira MRI BRAIN WO W [...] by: REINALDO LIPSCOMB Date: 2023-02-12 12:37 Normal [facility] [...] REINALDO LIPSCOMB Date: 2023-02-12 14:03 Normal [facility] COMPLIANCE DRUG SCREENon PDF . Normal [facility] Comment on above: Performed By: #### C BC #### [facility] [address] [place] [address] Dr. Raul Pereira Summary FINAL Normal [facility] Comment on above: Result Comment: [...] == Performed By: #### C BC #### [facility] [address] [place] [address] Dr. Raul Pereira CULTURE URINEon 02-02-2023 CULTURE [...] Trimethoprim/Sulfamethoxa zole <=20 S F Normal [facility] Comment on above: Performed By: #### U RCX #### [facility] [address] [address] [address] Raul Pereira AMMONIAon 01-31-2023 Ammonia (P) [Moles/Vol] 13 umol/L Normal [facility] Comment on above: Performed By: #### A MM ####[facility] [address] [address]Dr. Raul Pereira CBC AUTO DIFFon 01-31-2023 BASO # 0.1 103/ul Normal 0.0-0.1 [facility] Comment on above: Performed By: #### C BC #### [facility] [address] [place] [address] Dr. Raul Pereira Basophils/100 WBC (Bld) 0.6 % Normal 0.2-2.0 [facility] Comment on above: Performed By: #### C BC #### [facility] [address] [place] [address] Dr. Raul Pereira EO # 0.1 103/ul Normal 0.0-0.7 [facility] Comment on above: Performed By: #### C BC #### [facility] [address] [place] [address] Dr. Raul Pereira Eosinophils/100 WBC (Bld) 1.7 % Normal 0.9-7.0 [facility] Comment on above: Performed By: #### C BC #### [facility] [address] [place] [address] Dr. Raul Pereira Erythrocyte distribution width (RBC) [Ratio] 25.9 % Critically high 11.0-15.0 [facility] Comment on above: Result Comment: 2+ a niso Performed By: #### C BC #### [facility] [address] [place] [address] Dr. Raul Pereira Hematocrit (Bld) [Volume fraction] 42.4 % Normal 36.0-48.0 [facility] Comment on above: Performed By: #### C BC #### [facility] [address] [place] [address] Dr. Raul Pereira Hemoglobin (Bld) [Mass/Vol] 13.1 g/dL Normal 12.0-16.0 [facility] Comment on above: Performed By: #### C BC #### [facility] [address] [place] [address] Dr. Raul Pereira IG # 0.02 10e3/ul Normal 0.00-0.03 [facility] Comment on above: Performed By: #### C BC #### [facility] [address] [place] [address] Dr. Raul Pereira IG % 0.2 % Normal 0.0-0.5 [facility] Comment on above: Performed By: #### C BC #### [facility] [address] [place] [address] Dr. Raul Pereira LYMPH # 2.0 103/ul Normal 1.2-3.8 [facility] Comment on above: Performed By: #### C BC #### [facility] [address] [place] [address] Dr. Raul Pereira Lymphocytes/100 WBC (Bld) 24.8 % Normal 20.5-60.0 [facility] Comment on above: Performed By: #### C BC #### [facility] [address] [place] [address] Dr. Raul Pereira MANUAL DIFF REQ NO Normal [facility] Comment on above: Performed By: #### C BC #### [facility] [address] [place] [address] Dr. Raul Pereira MCH (RBC) [Entitic mass] 25.3 pg Critically low 26.7-34.0 [facility] Comment on above: Performed By: #### C BC #### [facility] [address] [place] [address] Dr. Raul Pereira MCHC (RBC) [Mass/Vol] 30.9 g/dL Normal 29.9-35.2 [facility] Comment on above: Performed By: #### C BC #### [facility] [address] [place] [address] Dr. Raul Pereira MCV (RBC) [Entitic vol] 82.0 fL Normal 81.0-99.0 [facility] Comment on above: Performed By: #### C BC #### [facility] [address] [place] [address] Dr. Raul Pereira MONO # 0.7 103/ul Normal 0.3-0.8 [facility] Comment on above: Performed By: #### C BC #### [facility] [address] [place] [address] Dr. Raul Pereira Monocytes/100 WBC (Bld) 8.8 % Normal 1.7-12.0 [facility] Comment on above: Performed By: #### C BC #### [facility] [address] [address] [address] Raul Pereira NEUT # 5.2 103/ul Normal 1.4-6.5 [facility] Comment on above: Performed By: #### C BC #### [facility] [address] [address] [address] Raul Pereira Neutrophils/100 WBC (Bld) 63.9 % Normal 43.0-75.0 [facility] Comment on above: Performed By: #### C BC #### [facility] [address] [address] [address] Raul Pereira Platelet mean volume (Bld) [Entitic vol] 9.2 fL Critically low 9.5-13.5 [facility] Comment on above: Performed By: #### C BC #### [facility] [address] [address] [address] Raul Pereira PLT 334 103/ul Normal 150-450 [facility] Comment on above: Performed By: #### C BC #### [facility] [address] [address] [address] Raul Pereira RBC 5.17 106/ul Normal 4.20-5.40 [facility] Comment on above: Performed By: #### C BC #### [facility] [address] [address] [address] Raul Pereira WBC 8.2 103/ul Normal 4.0-11.0 [facility] Comment on above: Performed By: #### C BC #### [facility] [address] [address] [address] Raul Pereira SARA - LIPID PROFILEon 2022 CHOL-HDL RATIO NORM SEE BELOW Normal [facility] Comment on above: Result Comment: 3.3 - 4.4 LOW RISK 4.4 - 7.1 AVERAGE RISK 7.1 - 11.0 MODERATE RISK >11.0 HIGH RISK Performed By: #### D ATLIPI ####[facility] [address] [id number][address] Raul Pereira Cholesterol [Mass/Vol] 178 mg/dL Normal <=200 [facility] Comment on above: Performed By: #### D ATLIPI ####[facility] [address] [place], [place] [address]Wb. aRul Pereira Cholesterol in HDL [Mass/Vol] 73 mg/dL Critically high 40-60 [facility] Comment on above: Performed By: #### D ATLIPI ####[facility] [address] [id number]. Raul Pereira Cholesterol in LDL [Mass/Vol] 72.0 mg/dL Normal [facility] Comment on above: Performed By: #### D ATLIPI ####[facility] [address] [id number]. Raul Pereira Cholesterol.total/C holesterol in HDL [Mass ratio] 2.4 {ratio} Normal [facility] Comment on above: Performed By: #### D ATLIPI ####[facility] [address] [id number]. Raul Pereira HDL NORMAL > or = 60 mg/dl - LO W CARDIOVASCULAR RISK <40 mg/dl - HIGH CARDIOVASCULAR RISK Normal [facility] Comment on above: Performed By: #### D ATLIPI ####[facility] [address] [id number]. Raul Pereira LDL CALC NORMAL SEE BELOW Normal [facility] Comment on above: Result Comment: <100 mg/dl OPTIMAL 100 - 129 mg/dl NEAR OR ABOVE OPTIMAL 130 - 159 mg/dl BORDERLINE HIGH 160 - 189 mg/dl HIGH >190 mg/dl VERY HIGH Performed By: #### D ATLIPI ####[facility] [address] [id number]. Raul Pereira Triglyceride [Mass/Vol] 165 mg/dL Critically high <=150 [facility] Comment on above: Performed By: #### D ATLIPI ####[facility] [address] [id number]. Raul Pereira VLDL CALC 33.0 mg/dL Normal [facility] Comment on above: Performed By: #### D ATLIPI ####[facility] [address] [address]Dr. Raul Pereira DRUG SCREEN RAPID (URINE)on 01-31-2023 AMP Positive Abnormal NEGATIVE [facility] Comment on above: Performed By: #### C BC #### [facility] [address] [address] [address] Raul Pereira BAR Negative Normal NEGATIVE [facility] Comment on above: Performed By: #### C BC #### [facility] [address] [address] [address] Raul Pereira BUP Positive Abnormal NEGATIVE [facility] Comment on above: Performed By: #### C BC #### [facility] [address] [address] [address] Raul Pereira BZO Negative Normal NEGATIVE [facility] Comment on above: Performed By: #### C BC #### [facility] [address] [address] [address] Raul Pereira RADHA Negative Normal NEGATIVE [facility] Comment on above: Performed By: #### C BC #### [facility] [address] [address] [address] Raul Pereira CUT-OFFS SEE BELOW Normal [...] ng/mL Performed By: #### C BC #### [facility] [address] [address] [address] Raul Pereira DRUG CUT HEADER DRUG CLASS TEST SYST EM CUT-OFF CONCENTRATIONS ARE FOLLOWS: Normal [facility] Comment on above: Performed By: #### C BC #### [facility] [address] [place] [address] Dr. Raul Pereira mAMP Negative Normal NEGATIVE [facility] Comment on above: Performed By: #### C BC #### [facility] [address] [place] [address] Dr. Raul Pereira MTD Negative Normal NEGATIVE [facility] Comment on above: Performed By: #### C BC #### [facility] [address] [place] [address] Dr. Raul Pereira OPI Negative Normal NEGATIVE [facility] Comment on above: Performed By: #### C BC #### [facility] [address] [place] [address] Dr. Raul Pereira OXY Negative Normal NEGATIVE [facility] Comment on above: Performed By: #### C BC #### [facility] [address] [place] [address] Dr. Raul Pereira PCP Negative Normal NEGATIVE [facility] Comment on above: Performed By: #### C BC #### [facility] [address] [place] [address] Dr. Raul Pereira PPX Negative Normal NEGATIVE [facility] Comment on above: Performed By: #### C BC #### [facility] [address] [place] [address] Dr. Raul Pereira TCA Positive Abnormal NEGATIVE [facility] Comment on above: Performed By: #### C BC #### [facility] [address] [place] [address] Dr. Raul Pereira THC Negative Normal NEGATIVE [facility] Comment on above: Performed By: #### C BC #### [facility] [address] [place] [address] Dr. Raul Pereira FREE THYROXINE INDEX T7on FTI 2.89 Normal 1.30-4.50 [facility] Comment on above: Performed By: #### C VDTBH #### [facility] [address] [place] [address] Dr. Raul Pereira T3U 39.0 % Normal 30.0-39.0 [facility] Comment on above: Performed By: #### C VDTBH #### [facility] [address] [address] [address] Raul Pereira T4 [Mass/Vol] 7.40 ug/dL Normal 4.80-13.90 [facility] Comment on above: Performed By: #### C VDTBH #### [facility] [address] [address] [address] Raul Pereira GLYCOHEMOGLOBIN A1Con 2022 ADA RECOMMENDATION SEE BELOW Normal [facility] Comment on above: Result Comment: ADA RECOMMENDED LIMIT 4.0 - 6.0 ADA THERAPEUTIC TARGET < 7.0 ACTION SUGGESTED > 7.0 Performed By: #### D ATA1C ####[facility] [address] [place], [place] [address]TyDr. Raul Pereira Glucose [Mass/Vol] 108 mg/dL Normal [facility] Comment on above: Performed By: #### D ATA1C ####[facility] [address] [place], [place] [address]UvDr. Raul Pereira HbA1c (Bld) [Mass fraction] 5.4 % Normal 4.5-6.2 [facility] Comment on above: Performed By: #### D ATA1C ####[facility] [address] [place], [place] [address]SvDr. Raul Pereira IRONon 01-31-2023 Iron [Mass/Vol] 225.0 ug/dL Critically high 50.0-170.0 [facility] Comment on above: Performed By: #### C VDTBH #### [facility] [address] [address] [address] Raul Pereira PROF 14(COMP METB)on 023 Albumin [Mass/Vol] 3.8 g/dL Normal 3.4-5.0 [facility] Comment on above: Performed By: #### Jazmin VDTBH #### [facility] [id number] Raul Pereira Albumin/Globulin [Mass ratio] 1.2 {ratio} Normal [facility] Comment on above: Performed By: #### C VDTBH #### [facility] [address] [address] [address] Raul Pereira ALP [Catalytic activity/Vol] 77 U/L Normal 46-116 [facility] Comment on above: Performed By: #### C VDTBH #### [facility] [address] [address] [address] Raul Pereira ALT [Catalytic activity/Vol] 19 U/L Normal 14-59 [facility] Comment on above: Performed By: #### C VDTBH #### [facility] [address] [address] [address] Raul Pereira Anion gap [Moles/Vol] 12.9 mmol/L Normal [facility] Comment on above: Performed By: #### C VDTBH #### [facility] [address] [place] [address] Dr. Raul Pereira AST [Catalytic activity/Vol] 17 U/L Normal 15-37 [facility] Comment on above: Performed By: #### C VDTBH #### [facility] [address] [address] [address] Raul Pereira Bilirubin [Mass/Vol] 0.3 mg/dL Normal 0.2-1.0 [facility] Comment on above: Performed By: #### C VDTBH #### [facility] [address] [address] [address] Raul Pereira Calcium [Mass/Vol] 8.9 mg/dL Normal 8.5-10.1 [facility] Comment on above: Performed By: #### C VDTBH #### [facility] [address] [address] [address] Raul Pereira Chloride [Moles/Vol] 101 mmol/L Normal 98-107 [facility] Comment on above: Performed By: #### C VDTBH #### [facility] [address] [address] [address] Raul Pereira CO2 [Moles/Vol] 28.5 mmol/L Normal 21.0-32.0 [facility] Comment on above: Performed By: #### C VDTBH #### [facility] [address] [address] [address] Raul Pereira Creatinine [Mass/Vol] 0.59 mg/dL Normal 0.55-1.02 [facility] Comment on above: Performed By: #### C VDTBH #### [facility] [address] [address] [address] Raul Pereira EGFR-AF CHILEAN >60 Normal >=60 [facility] Comment on above: Performed By: #### C VDTBH #### [facility] [address] [address] [address] Raul Pereira EGFR-NON AF CHILEAN >60 Normal >=60 [facility] Comment on above: Performed By: #### C VDTBH #### [facility] [address] [place] [address] Dr. Raul Pereira Globulin (S) [Mass/Vol] 3.1 g/dL Normal [facility] Comment on above: Performed By: #### C VDTBH #### [facility] [address] [address] [address] Raul Pereira Glucose [Mass/Vol] 84 mg/dL Normal 74-106 [facility] Comment on above: Performed By: #### C VDTBH #### [facility] [address] [place] [address] Dr. Raul Pereira Potassium [Moles/Vol] 4.4 mmol/L Normal 3.5-5.1 [facility] Comment on above: Performed By: #### C VDTBH #### [facility] [address] [address] [address] Raul Pereira Protein [Mass/Vol] 6.9 g/dL Normal 6.4-8.2 [facility] Comment on above: Performed By: #### C VDTBH #### [facility] [address] [address] [address] Raul Pereira Sodium [Moles/Vol] 138 mmol/L Normal 136-145 [facility] Comment on above: Performed By: #### C VDTBH #### [facility] [address] [place] [address] Dr. Raul Pereira Urea nitrogen [Mass/Vol] 11.0 mg/dL Normal 7.0-18.0 [facility] Comment on above: Performed By: #### C VDTBH #### [facility] [address] [place] [address] Dr. Raul Pereira Urea nitrogen/Creatinine [Mass ratio] 18.6 mg/mg Normal [facility] Comment on above: Performed By: #### C VDTBH #### [facility] [address] [place] [address] Dr. Raul Pereira TSHon 01-31-2023 TSH 2.354 uIU/mL Normal 0.358-3.740 [facility] Comment on above: Performed By: #### C VDTBH #### [facility] [address] [place] [address] Dr. Raul Pereira UA RANDOM W/MICROSCOPICon BACTERIA NONE SEEN Normal NONE SEEN [facility] Comment on above: Performed By: #### C BC #### [facility] [address] [place] [address] Dr. Raul Pereira Bilirubin Ql (U) Negative Normal NEGATIVE [facility] Comment on above: Performed By: #### C BC #### [facility] [address] [place] [address] Dr. Raul Pereira CAST NONE SEEN Normal NONE SEEN [facility] Comment on above: Performed By: #### C BC #### [facility] [address] [place] [address] Dr. Raul Pereira Clarity (U) CLEAR Normal CLEAR [facility] Comment on above: Performed By: #### C BC #### [facility] [address] [place] [address] Dr. Raul Pereira Color (U) YELLOW Normal YELLOW [facility] Comment on above: Performed By: #### C BC #### [facility] [address] [place] [address] Dr. Raul Pereira Crystals LM Nom (Urine sed) NONE SEEN Normal NONE SEEN [facility] Comment on above: Performed By: #### C BC #### [facility] [address] [place] [address] Dr. Raul Pereira Epithelial cells LM Ql (Urine sed) NONE SEEN Normal NONE SEEN /RARE [facility] Comment on above: Performed By: #### C BC #### [facility] [address] [place] [address] Dr. Raul Pereira Glucose Ql (U) Negative Normal NEGATIVE [facility] Comment on above: Performed By: #### C BC #### [facility] [address] [place] [address] Dr. Raul Pereira Hemoglobin Ql (U) Negative Normal NEGATIVE [facility] Comment on above: Performed By: #### C BC #### [facility] [address] [place] [address] Dr. Raul Pereira Ketones Ql (U) Negative Normal NEGATIVE [facility] Comment on above: Performed By: #### C BC #### [facility] [address] [place] [address] Dr. Raul Pereira LEUKOCYTES Negative Normal NEGATIVE [facility] Comment on above: Performed By: #### C BC #### [facility] [address] [place] [address] Dr. Raul Pereira MUCOUS NONE SEEN Normal NONE SEEN [facility] Comment on above: Performed By: #### C BC #### [facility] [address] [place] [address] Dr. Raul Pereira Nitrite Ql (U) Negative Normal NEGATIVE [facility] Comment on above: Performed By: #### C BC #### [facility] [address] [place] [address] Dr. Raul Pereira pH (U) 5.5 [pH] Normal 5-9 [facility] Comment on above: Performed By: #### C BC #### [facility] [address] [place] [address] Dr. Raul Pereira RBC NONE SEEN Abnormal 0-2 [facility] Comment on above: Performed By: #### C BC #### [facility] [address] [place] [address] Dr. Raul Pereira SPEC GRAVITY 1.030 Abnormal 1.005-<=1.02 5 [facility] Comment on above: Performed By: #### C BC #### [facility] [address] [place] [address] Dr. Raul Pereira UA PROTEIN Negative Normal NEGATIVE/ TRACE [facility] Comment on above: Performed By: #### C BC #### [facility] [address] [place] [address] Dr. Raul Pereira Urobilinogen Qn (U) 0.2 {Farrukh'U}/dL Normal 0.2 - 1. 0 [facility] Comment on above: Performed By: #### C BC #### [facility] [address] [place] [address] Dr. Raul Pereira WBC NONE SEEN Normal NONE SEEN [facility] Comment on above: Performed By: #### C BC #### [facility] [address] [place] [address] Dr. Raul Pereira VITAMIN D 25 OHon 01-31-2023 VIT D 25-OH 40.8 ng/mL Normal [facility] Comment on above: Performed By: #### C VDTBH #### [facility] [address] [place] [address] Dr. Raul Pereira VIT D RANGES SEE BELOW Normal [facility] Comment on above: Result Comment: <20 ng/mL Vit D deficient 20 - <30 ng/mL Vit D insufficient 30 - 100 ng/mL Vit D sufficient >100 ng/mL Potential Toxicity Performed By: #### C VDTBH #### [facility] [address] [place] [address] Dr. Raul Pereira VC VENOUS REFLUX ALEXUS LMTon 0 01-30-2023 VC VENOUS REFLUX ALEXUS LMT Patient: VIDA MEJIA Exam Date: 01/30/2023 : 1960 Gender:F Ordering : DR NAPOLEON RAHMAN . Admission #: [id number] Family : Order #: [id number] CLICK HERE TO VIEW EXAM RADIOLOGY REPORT [...] thrombus. Compressibility: Normal. Flow: Deep venous reflux. [employer]:Mid/medial lower leg 4.3 mm with 0.8s reflux. [...] great saphenous vein along with dilated, incompetent diesel engine engineer veins and numerous branch saphenous varicosities. 2. 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 Proximal closer with endovenous laser ablation may be beneficial followed by treatment with microfoam chemical ablation. Incompetent lower leg diesel engine engineer vein which may contribute to patient's reflux; laser ablation is recommended. Dilated, incompetent branch saphenous varicosities which would benefit from microfoam chemical ablation. 3. Consultation for endovenous ablation is recommended. Dictated by: Reinaldo Lipscomb M.D. on 01/31/2023 at 09:46 Approved by: Reinaldo Lipscomb M.D. on 01/31/2023 at 09:51 Normal [facility] CBC AUTO DIFFon 01-13-2023 BASO # 0.0 103/ul Normal 0.0-0.1 [facility] Comment on above: Performed By: #### C BC #### [facility] [address] [address] [address] Raul Pereira Basophils/100 WBC (Bld) 0.5 % Normal 0.2-2.0 [facility] Comment on above: Performed By: #### C BC #### [facility] [address] [address] [address] Raul Pereira EO # 0.1 103/ul Normal 0.0-0.7 [facility] Comment on above: Performed By: #### C BC #### [facility] [address] [place] [address] Dr. Raul Pereira Eosinophils/100 WBC (Bld) 1.7 % Normal 0.9-7.0 [facility] Comment on above: Performed By: #### C BC #### [facility] [address] [place] [address] Dr. Raul Pereira Erythrocyte distribution width (RBC) [Ratio] 18.4 % Critically high 11.0-15.0 [facility] Comment on above: Performed By: #### C BC #### [facility] [address] [place] [address] Dr. Raul Pereira Hematocrit (Bld) [Volume fraction] 33.1 % Critically low 36.0-48.0 [facility] Comment on above: Performed By: #### C BC #### [facility] [address] [place] [address] Dr. Raul Pereira Hemoglobin (Bld) [Mass/Vol] 10.4 g/dL Critically low 12.0-16.0 [facility] Comment on above: Performed By: #### C BC #### [facility] [address] [place] [address] Dr. Raul Pereira IG # 0.03 10e3/ul Normal 0.00-0.03 [facility] Comment on above: Performed By: #### C BC #### [facility] [address] [place] [address] Dr. Raul Pereira IG % 0.4 % Normal 0.0-0.5 [facility] Comment on above: Performed By: #### C BC #### [facility] [address] [place] [address] Dr. Raul Pereira LYMPH # 1.9 103/ul Normal 1.2-3.8 [facility] Comment on above: Performed By: #### C BC #### [facility] [address] [place] [address] Dr. Raul Pereira Lymphocytes/100 WBC (Bld) 25.2 % Normal 20.5-60.0 [facility] Comment on above: Performed By: #### C BC #### [facility] [address] [place] [address] Dr. Raul Pereira MANUAL DIFF REQ NO Normal [facility] Comment on above: Performed By: #### C BC #### [facility] [address] [place] [address] Dr. Raul Pereira MCH (RBC) [Entitic mass] 24.1 pg Critically low 26.7-34.0 [facility] Comment on above: Performed By: #### C BC #### [facility] [address] [place] [address] Dr. Raul Pereira MCHC (RBC) [Mass/Vol] 31.4 g/dL Normal 29.9-35.2 [facility] Comment on above: Performed By: #### C BC #### [facility] [address] [place] [address] Dr. Raul Pereira MCV (RBC) [Entitic vol] 76.6 fL Critically low 81.0-99.0 [facility] Comment on above: Performed By: #### C BC #### [facility] [address] [place] [address] Dr. Raul Pereira MONO # 0.8 103/ul Normal 0.3-0.8 [facility] Comment on above: Performed By: #### C BC #### [facility] [address] [place] [address] Dr. Raul Pereira Monocytes/100 WBC (Bld) 10.7 % Normal 1.7-12.0 [facility] Comment on above: Performed By: #### C BC #### [facility] [address] [place] [address] Dr. Raul Pereira NEUT # 4.7 103/ul Normal 1.4-6.5 [facility] Comment on above: Performed By: #### C BC #### [facility] [address] [place] [address] Dr. Raul Pereira Neutrophils/100 WBC (Bld) 61.5 % Normal 43.0-75.0 [facility] Comment on above: Performed By: #### C BC #### [facility] [address] [place], [place] [address] Dr. Raul Pereira Platelet mean volume (Bld) [Entitic vol] 8.6 fL Critically low 9.5-13.5 [facility] Comment on above: Performed By: #### C BC #### [facility] [address] [place], [place] [address] Dr. Raul Pereira PLT 461 103/ul Critically high 150-450 [facility] Comment on above: Performed By: #### C BC #### [facility] [address] [place], [place] [address] Dr. Raul Pereira RBC 4.32 106/ul Normal 4.20-5.40 [facility] Comment on above: Performed By: #### C BC #### [facility] [address] [place], [place] [address] Dr. Raul Pereira WBC 7.6 103/ul Normal 4.0-11.0 [facility] Comment on above: Performed By: #### C BC #### [facility] [id number] [address] Raul Pereira FREE THYROXINE INDEX T7on FTI 2.10 Normal 1.30-4.50 [facility] Comment on above: Performed By: #### T 7, CMP, TSH, LIPID ####[facility] [address] [place], [place] [address]JnDr. Raul Pereira T3U 35.0 % Normal 30.0-39.0 [facility] Comment on above: Performed By: #### T 7, CMP, TSH, LIPID ####[facility] [address] [place], [place] [address]RdDr. Raul Pereira T4 [Mass/Vol] 6.00 ug/dL Normal 4.80-13.90 [facility] Comment on above: Performed By: #### T 7, CMP, TSH, LIPID ####[facility] [address] [place], [place] [address]GvDr. Raul Pereira GLYCOHEMOGLOBIN A1Con 2022 ADA RECOMMENDATION SEE BELOW Normal [facility] Comment on above: Result Comment: ADA RECOMMENDED LIMIT 4.0 - 6.0 ADA THERAPEUTIC TARGET < 7.0 ACTION SUGGESTED > 7.0 Performed By: #### C VDTBH #### [facility] [address] [address] [address] Raul Pereira Glucose [Mass/Vol] 108 mg/dL Normal [facility] Comment on above: Performed By: #### C VDTBH #### [facility] [address] [address] [address] Raul Pereira HbA1c (Bld) [Mass fraction] 5.4 % Normal 4.5-6.2 [facility] Comment on above: Performed By: #### C VDTBH #### [facility] [address] [address] [address] Raul Pereira IRON AND TIBCon 01-13-2023 % SATURATION 3.5 % Normal [facility] Comment on above: Performed By: #### F ETIBC, B12FOL, VITAD ####[facility] [address] [address]DrLeann Pereira Iron [Mass/Vol] 18.0 ug/dL Critically low 50.0-170.0 [facility] Comment on above: Performed By: #### F ETIBC, B12FOL, VITAD ####[facility] [address] [phone] Pereira TIBC DIRECT 513.0 ug/dL Critically high 250.0-450.0 [facility] Comment on above: Performed By: #### F ETIBC, B12FOL, VITAD ####[facility] [address] [address]Dr. Raul Pereira LIPID PROFILEon 01-13-2023 CHOL-HDL RATIO NORM SEE BELOW Normal [facility] Comment on above: Result Comment: 3.3 - 4.4 LOW RISK 4.4 - 7.1 AVERAGE RISK 7.1 - 11.0 MODERATE RISK >11.0 HIGH RISK Performed By: #### T 7, CMP, TSH, LIPID ####[facility] [address] [address]DrLeann Pereira Cholesterol [Mass/Vol] 190 mg/dL Normal <=200 [facility] Comment on above: Performed By: #### T 7, CMP, TSH, LIPID ####[facility] [address] [phone]. Raul Pereira Cholesterol in HDL [Mass/Vol] 71 mg/dL Critically high 40-60 [facility] Comment on above: Performed By: #### T 7, CMP, TSH, LIPID ####[facility] [address] [phone]. Raul Pereira Cholesterol in LDL [Mass/Vol] 104.6 mg/dL Normal [facility] Comment on above: Performed By: #### T 7, CMP, TSH, LIPID ####[facility] [address] [phone]. Raul Pereira Cholesterol.total/C holesterol in HDL [Mass ratio] 2.7 {ratio} Normal [facility] Comment on above: Performed By: #### T 7, CMP, TSH, LIPID ####[facility] [address] [phone]. Raul Pereira HDL NORMAL > or = 60 mg/dl - LO W CARDIOVASCULAR RISK <40 mg/dl - HIGH CARDIOVASCULAR RISK Normal [facility] Comment on above: Performed By: #### T 7, CMP, TSH, LIPID ####[facility] [address] [phone]. Raul Pereira LDL CALC NORMAL SEE BELOW Normal [facility] Comment on above: Result Comment: <100 mg/dl OPTIMAL 100 - 129 mg/dl NEAR OR ABOVE OPTIMAL 130 - 159 mg/dl BORDERLINE HIGH 160 - 189 mg/dl HIGH >190 mg/dl VERY HIGH Performed By: #### T 7, CMP, TSH, LIPID ####[facility] [address] [phone]. Raul Pereira Triglyceride [Mass/Vol] 72 mg/dL Normal <=150 [facility] Comment on above: Performed By: #### T 7, CMP, TSH, LIPID ####[facility] [address] [phone]. Raul Pereira VLDL CALC 14.4 mg/dL Normal [facility] Comment on above: Performed By: #### T 7, CMP, TSH, LIPID ####[facility] [address] [address]Dr. Raul Pereira PROF 14(COMP METB)on 023 Albumin [Mass/Vol] 3.5 g/dL Normal 3.4-5.0 [facility] Comment on above: Performed By: #### T 7, CMP, TSH, LIPID ####[facility] [address] [address]Dr. Raul Pereira Albumin/Globulin [Mass ratio] 1.1 {ratio} Normal [facility] Comment on above: Performed By: #### T 7, CMP, TSH, LIPID ####[facility] [address] [address]Dr. Raul Pereira ALP [Catalytic activity/Vol] 92 U/L Normal 46-116 [facility] Comment on above: Performed By: #### T 7, CMP, TSH, LIPID ####[facility] [address] [address]Dr. Raul Pereira ALT [Catalytic activity/Vol] 17 U/L Normal 14-59 [facility] Comment on above: Performed By: #### T 7, CMP, TSH, LIPID ####[facility] [address] [address]Dr. Raul Pereira Anion gap [Moles/Vol] 10.0 mmol/L Normal [facility] Comment on above: Performed By: #### T 7, CMP, TSH, LIPID ####[facility] [address] [address]Dr. Raul Pereira AST [Catalytic activity/Vol] 17 U/L Normal 15-37 [facility] Comment on above: Performed By: #### T 7, CMP, TSH, LIPID ####[facility] [address] [address]Dr. Raul Pereira Bilirubin [Mass/Vol] 0.2 mg/dL Normal 0.2-1.0 [facility] Comment on above: Performed By: #### T 7, CMP, TSH, LIPID ####[facility] [address] [address]Dr. Raul Pereira Calcium [Mass/Vol] 8.8 mg/dL Normal 8.5-10.1 [facility] Comment on above: Performed By: #### T 7, CMP, TSH, LIPID ####[facility] [address] [address]Dr. Raul Pereira Chloride [Moles/Vol] 101 mmol/L Normal 98-107 [facility] Comment on above: Performed By: #### T 7, CMP, TSH, LIPID ####[facility] [address] [address]Dr. Raul Pereira CO2 [Moles/Vol] 29.4 mmol/L Normal 21.0-32.0 [facility] Comment on above: Performed By: #### T 7, CMP, TSH, LIPID ####[facility] [address] [address]Dr. Raul Pereira Creatinine [Mass/Vol] 0.50 mg/dL Critically low 0.55-1.02 [facility] Comment on above: Performed By: #### T 7, CMP, TSH, LIPID ####[facility] [address] [address]Dr. Raul Pereira EGFR-AF CHILEAN >60 Normal >=60 [facility] Comment on above: Performed By: #### T 7, CMP, TSH, LIPID ####[facility] [address] [address]Dr. Raul Pereira EGFR-NON AF CHILEAN >60 Normal >=60 [facility] Comment on above: Performed By: #### T 7, CMP, TSH, LIPID ####[facility] [address] [address]Dr. Raul Pereira Globulin (S) [Mass/Vol] 3.2 g/dL Normal [facility] Comment on above: Performed By: #### T 7, CMP, TSH, LIPID ####[facility] [address] [address]Dr. Raul Pereira Glucose [Mass/Vol] 88 mg/dL Normal 74-106 [facility] Comment on above: Performed By: #### T 7, CMP, TSH, LIPID ####[facility] [address] [address]Dr. Raul Pereira Potassium [Moles/Vol] 4.4 mmol/L Normal 3.5-5.1 [facility] Comment on above: Performed By: #### T 7, CMP, TSH, LIPID ####[facility] [address] [address]Dr. Raul Pereira Protein [Mass/Vol] 6.7 g/dL Normal 6.4-8.2 [facility] Comment on above: Performed By: #### T 7, CMP, TSH, LIPID ####[facility] [address] [address]Dr. Raul Pereira Sodium [Moles/Vol] 136 mmol/L Normal 136-145 [facility] Comment on above: Performed By: #### T 7, CMP, TSH, LIPID ####[facility] [address] [address]Dr. Raul Pereira Urea nitrogen [Mass/Vol] 12.0 mg/dL Normal 7.0-18.0 [facility] Comment on above: Performed By: #### T 7, CMP, TSH, LIPID ####[facility] [address] [address]Dr. Raul Pereira Urea nitrogen/Creatinine [Mass ratio] 24.0 mg/mg Normal [facility] Comment on above: Performed By: #### T 7, CMP, TSH, LIPID ####[facility] [address] [address]Dr. Raul Randall TSHon 01-13-2023 TSH 1.623 uIU/mL Normal 0.358-3.740 [facility] Comment on above: Performed By: #### T 7, CMP, TSH, LIPID ####[facility] [address] [address]Dr. Raul Randall VIT B12 AND FOLATEon 023 Cobalamin (Vitamin B12) [Mass/Vol] 872.0 pg/mL Normal 193.0-986.0 [facility] Comment on above: Performed By: #### F ETIBC, B12FOL, VITAD ####[facility] [address] [address]Dr. Raul Pereira FOLATE 21.20 ng/mL Normal 8.60-58.90 [facility] Comment on above: Performed By: #### F ETIBC, B12FOL, VITAD ####[facility] [address] [address]Dr. Raul Pereira VITAMIN D 25 OHon 01-13-2023 VIT D 25-OH 40.6 ng/mL Normal [facility] Comment on above: Performed By: #### F ETIBC, B12FOL, VITAD ####[facility] [address] [address]Dr. Raul Pereira VIT D RANGES SEE BELOW Normal [facility] Comment on above: Result Comment: <20 ng/mL Vit D deficient 20 - <30 ng/mL Vit D insufficient 30 - 100 ng/mL Vit D sufficient >100 ng/mL Potential Toxicity Performed By: #### F ETIBC, B12FOL, VITAD ####[facility] [address] [address]Dr. Raul Pereira CBC AUTO DIFFon 01-10-2023 BASO # 0.1 103/ul Normal 0.0-0.1 [facility] Comment on above: Performed By: #### C VDTBH #### [facility] [address] [place] [address] Dr. Raul Pereira Basophils/100 WBC (Bld) 0.6 % Normal 0.2-2.0 [facility] Comment on above: Performed By: #### C VDTBH #### [facility] [address] [place] [address] Dr. Raul Pereira EO # 0.1 103/ul Normal 0.0-0.7 [facility] Comment on above: Performed By: #### C VDTBH #### [facility] [address] [place] [address] Dr. Raul Pereira Eosinophils/100 WBC (Bld) 1.3 % Normal 0.9-7.0 [facility] Comment on above: Performed By: #### C VDTBH #### [facility] [address] [place] [address] Dr. Raul Pereira Erythrocyte distribution width (RBC) [Ratio] 18.4 % Critically high 11.0-15.0 [facility] Comment on above: Performed By: #### C VDTBH #### [facility] [address] [place] [address] Dr. Raul Pereira Hematocrit (Bld) [Volume fraction] 37.8 % Normal 36.0-48.0 [facility] Comment on above: Performed By: #### C VDTBH #### [facility] [address] [place] [address] Dr. Raul Pereira Hemoglobin (Bld) [Mass/Vol] 11.6 g/dL Critically low 12.0-16.0 [facility] Comment on above: Performed By: #### C VDTBH #### [facility] [address] [place] [address] Dr. Raul Pereira IG # 0.02 10e3/ul Normal 0.00-0.03 [facility] Comment on above: Performed By: #### C VDTBH #### [facility] [address] [place] [address] Dr. Raul Pereira IG % 0.3 % Normal 0.0-0.5 [facility] Comment on above: Performed By: #### C VDTBH #### [facility] [address] [place] [address] Dr. Raul Pereira LYMPH # 1.7 103/ul Normal 1.2-3.8 [facility] Comment on above: Performed By: #### C VDTBH #### [facility] [address] [place] [address] Dr. Raul Pereira Lymphocytes/100 WBC (Bld) 21.0 % Normal 20.5-60.0 [facility] Comment on above: Performed By: #### C VDTBH #### [facility] [address] [place] [address] Dr. Raul Pereira MANUAL DIFF REQ NO Normal [facility] Comment on above: Performed By: #### C VDTBH #### [facility] [address] [place] [address] Dr. Raul Pereira MCH (RBC) [Entitic mass] 24.1 pg Critically low 26.7-34.0 [facility] Comment on above: Performed By: #### C VDTBH #### [facility] [address] [place] [address] Dr. Raul Pereira MCHC (RBC) [Mass/Vol] 30.7 g/dL Normal 29.9-35.2 [facility] Comment on above: Performed By: #### C VDTBH #### [facility] [address] [place] [address] Dr. Raul Pereira MCV (RBC) [Entitic vol] 78.6 fL Critically low 81.0-99.0 [facility] Comment on above: Performed By: #### C VDTBH #### [facility] [address] [place] [address] Dr. Raul Pereira MONO # 0.6 103/ul Normal 0.3-0.8 [facility] Comment on above: Performed By: #### C VDTBH #### [facility] [address] [place] [address] Dr. Raul Pereira Monocytes/100 WBC (Bld) 7.5 % Normal 1.7-12.0 [facility] Comment on above: Performed By: #### C VDTBH #### [facility] [address] [place] [address] Dr. Raul Pereira NEUT # 5.4 103/ul Normal 1.4-6.5 [facility] Comment on above: Performed By: #### C VDTBH #### [facility] [address] [place] [address] Dr. Raul Pereira Neutrophils/100 WBC (Bld) 69.3 % Normal 43.0-75.0 [facility] Comment on above: Performed By: #### C VDTBH #### [facility] [address] [address] [address] Raul Pereira Platelet mean volume (Bld) [Entitic vol] 9.0 fL Critically low 9.5-13.5 [facility] Comment on above: Performed By: #### C VDTBH #### [facility] [address] [address] [address] Raul Pereira PLT 516 103/ul Critically high 150-450 [facility] Comment on above: Performed By: #### C VDTBH #### [facility] [address] [address] [address] Raul Pereira RBC 4.81 106/ul Normal 4.20-5.40 [facility] Comment on above: Performed By: #### C VDTBH #### [facility] [address] [address] [address] Raul Pereira WBC 7.8 103/ul Normal 4.0-11.0 [facility] Comment on above: Performed By: #### C VDTBH #### [facility] [id number] Raul Pereira CULTURE BLOODon 01-10-2023 Microscopic examination of blood, culture Culture Observations: NO GROWTH AT 5 DAYS. Normal [facility] Comment on above: Performed By: #### B [id number] #### [facility] [address] [address] [address] Raul Pereira Microscopic examination of blood, culture Culture Observations: NO GROWTH AT 5 DAYS. Normal [facility] Comment on above: Performed By: #### B [id number] ####[facility] [address] [id number]. Raul Pereira PROF 14(COMP METB)on 023 Albumin [Mass/Vol] 3.7 g/dL Normal 3.4-5.0 [facility] Comment on above: Performed By: #### C BC #### [facility] [address] [address] [address] Raul Pereira Albumin/Globulin [Mass ratio] 0.9 {ratio} Normal [facility] Comment on above: Performed By: #### C BC #### [facility] [address] [address] [address] Raul Pereira ALP [Catalytic activity/Vol] 105 U/L Normal 46-116 [facility] Comment on above: Performed By: #### C BC #### [facility] [address] [address] [address] Raul Pereira ALT [Catalytic activity/Vol] 18 U/L Normal 14-59 [facility] Comment on above: Performed By: #### C BC #### [facility] [address] [address] [address] Raul Pereira Anion gap [Moles/Vol] 10.8 mmol/L Normal [facility] Comment on above: Performed By: #### C BC #### [facility] [address] [place] [address] Dr. Raul Pereira AST [Catalytic activity/Vol] 21 U/L Normal 15-37 [facility] Comment on above: Performed By: #### C BC #### [facility] [address] [address] [address] Raul Pereira Bilirubin [Mass/Vol] 0.3 mg/dL Normal 0.2-1.0 [facility] Comment on above: Performed By: #### C BC #### [facility] [address] [place] [address] Dr. Raul Pereira Calcium [Mass/Vol] 9.1 mg/dL Normal 8.5-10.1 [facility] Comment on above: Performed By: #### C BC #### [facility] [address] [address] [address] Raul Pereira Chloride [Moles/Vol] 100 mmol/L Normal 98-107 [facility] Comment on above: Performed By: #### C BC #### [facility] [address] [address] [address] Raul Pereira CO2 [Moles/Vol] 30.8 mmol/L Normal 21.0-32.0 [facility] Comment on above: Performed By: #### C BC #### [facility] [address] [address] [address] Raul Pereira Creatinine [Mass/Vol] 0.58 mg/dL Normal 0.55-1.02 [facility] Comment on above: Performed By: #### C BC #### [facility] [address] [place] [address] Dr. Raul Pereira EGFR-AF CHILEAN >60 Normal >=60 [facility] Comment on above: Performed By: #### C BC #### [facility] [address] [address] [address] Raul Pereira EGFR-NON AF CHILEAN >60 Normal >=60 [facility] Comment on above: Performed By: #### C BC #### [facility] [address] [place] [address] Dr. Raul Pereira Globulin (S) [Mass/Vol] 4.1 g/dL Normal [facility] Comment on above: Performed By: #### C BC #### [facility] [address] [place] [address] Dr. Raul Pereira Glucose [Mass/Vol] 86 mg/dL Normal 74-106 [facility] Comment on above: Performed By: #### C BC #### [facility] [address] [place] [address] Dr. Raul Pereira Potassium [Moles/Vol] 4.6 mmol/L Normal 3.5-5.1 [facility] Comment on above: Performed By: #### C BC #### [facility] [address] [place] [address] Dr. Raul Pereira Protein [Mass/Vol] 7.8 g/dL Normal 6.4-8.2 [facility] Comment on above: Performed By: #### C BC #### [facility] [address] [place] [address] Dr. Raul Pereira Sodium [Moles/Vol] 137 mmol/L Normal 136-145 [facility] Comment on above: Performed By: #### C BC #### [facility] [address] [place] [address] Dr. Raul Pereira Urea nitrogen [Mass/Vol] 9.0 mg/dL Normal 7.0-18.0 [facility] Comment on above: Performed By: #### C BC #### [facility] [address] [address] [address] Raul Pereira Urea nitrogen/Creatinine [Mass ratio] 15.5 mg/mg Normal [facility] Comment on above: Performed By: #### C BC #### [facility] [address] [address] [address] Raul Pereira US PREMA DOP LEG [...] REINALDO LIPSCOMB Date: 2023-01-10 10:43 Normal [facility] Covid-19 PCR (CVDTB)on 11-18 SARS-CoV-2 (COVID-19) RNA IMELDA+probe Ql (Unsp spec) Not detected Normal NOT DETECTED [facility] Comment on above: Result Comment: This test is not yet approved or cleared by the [place] FDA. When there are no FDA-approved or cleared tests available, and other criteria are met, FDA can make tests available under an emergency access mechanism called an Emergency Use Authorization (EUA). The EUA for this test is supported by the Embossed Or Impressed Lettering Painter of Health and Human Service's (HHS's) declaration [...] SARS-CoV-2. Performed By: #### C VDTBH #### [facility] [address] [place] [address] Dr. Raul Pereira CALCIUMon 12-03-2022 Calcium [Mass/Vol] 9.7 mg/dL Normal 8.5-10.1 [facility] Comment on above: Performed By: #### C VDTBH #### [facility] [address] [address] [address] Raul Pereira CREATININEon 12-03-2022 Creatinine [Mass/Vol] 0.53 mg/dL Critically low 0.55-1.02 [facility] Comment on above: Performed By: #### C BC #### [facility] [address] [place] [address] Dr. Raul Pereira EGFR-AF CHILEAN >60 Normal >=60 [facility] Comment on above: Performed By: #### C BC #### [facility] [address] [place] [address] Dr. Raul Pereira EGFR-NON AF CHILEAN >60 Normal >=60 [facility] Comment on above: Performed By: #### C BC #### [facility] [address] [place] [address] Dr. Raul Pereira Office Visiton 08-27-2022 Follow-up visit [id number] Lex Mejia L 1960 F Date Provider Department Center 08/27/2022 Nella-MICAELA GUPTA [facility] SURG Second Fl No family history on file Level of Service:71868 [place] POSTOP FOLLOW UP VISIT RELATED TO ORIGINAL PX Reason for Visit and Comments: Post-op [483] - Vida is here today for a post op visit, s/p 08/16/22 LAP ZEESHAN Normal [facility] HISTOLOGY - TISSUE EXAMon LAB AP CASE REPORT Normal [facility] Comment on above: Order Comment: Pre-o p diagnosis:Calculus of gallbladder without cholecystitis without obstruction [K80.20] Result Comment: Surg ical Pathology Case: [id number] Authorizing Provider: Micaela Gupta MD Collected: 08/16/2022 0842 Ordering Location: [facility] Main Operating Room Received: 08/16/2022 1001 Pathologist: Maricruz Warren MD Specimen: Gallbladder, GALLBLADDER Performed By: #### L [id number] ####[facility] [facility] [address] LAB AP CLINICAL INFORMATION Normal [facility] Comment on above: Order Comment: Pre-o p diagnosis:Calculus of gallbladder without cholecystitis without obstruction [K80.20] Result Comment: Pre- op diagnosis: Calculus of gallbladder without cholecystitis without obstruction [K80.20] Performed By: #### L [id number] ####[facility] ([facility])[address] [place] [address] LAB AP GROSS DESCRIPTION A. Gallbladder. Normal [facility] Comment on above: Order Comment: Pre-o p diagnosis:Calculus of gallbladder without cholecystitis without obstruction [K80.20] Result Comment: Rece ived in formalin , labeled Vida L Hilary, GALLBLADDER . The specimen consists of a 9.0 x 4.0 x 3.0 cm cholecystectomy specimen with a closed cystic duct that measures 0.3 cm in length and 0.3 cm in diameter. Serosal surface is red-queevdo smooth and glistening with a finely roughened [...] 0.1 to 0.2 cm in maximum thickness. Lacquer Sizer sections submitted as follows: Cassette 1: Cystic duct resection margin and neck Cassette 2: Body and fundus Ankit Koroma, Pathologists' Cuprous Chloride Operator Performed By: #### L [id number] ####[facility])[address] [place] [address] LAB AP MICROSCOPIC DESCRIPTION Microscopic examination performed Normal [facility] Comment on above: Order Comment: Pre-o p diagnosis:Calculus of gallbladder without cholecystitis without obstruction [K80.20] Performed By: #### L [id number] ####[facility] ([facility])[address] [place] [address] LAB AP REPORT FINAL DIAGNOSIS NARRATIVE [facility] Comment on above: Order Comment: Pre-o p diagnosis:Calculus of gallbladder without cholecystitis without obstruction [K80.20] Result Comment: Gall bladder, cholecystectomy: - Cholelithiasis and cholesterolosis. Performed By: #### L [id number] ####[facility] ([facility])[address] [place] [address] [facility] 08-16-2022 HP ----- ----- Attestation signed by Micaela Gupta MD at 08/16/2022 7:34 AM Attending Physician Statement I have discussed the case, including pertinent history and exam findings with Dr. Del Angel, residential finish carpenter and have personally seen the patient. I agree with the assessment, plan and orders as documented. [phone] pager [phone] phone ----- [facility] General Surgery HISTORY & PHYSICAL Chief [...] History: Diagnosis Date Anxiety Arthritis Chronic bronchitis ([facility]/HCC) Depression DVT (deep venous thrombosis) ([facility] Gall bladder disease GERD (gastroesophageal [...] Component Value (more content not included)... Normal [facility] NURSNOTEon 08-16-2022 NURSNOTE Stable. Pain minimal . DC criteria met. IV dc'd and patient getting dressed. 1155 Stable for discharge. Normal [facility] NURSNOTE DC instructions revi ewed with patient and Granddaughter, allowed time for questions, copy given. [facility] NURSNOTE Report rec'd and car e assumed. No assessment changes. Pain minimal. Normal [facility] NURSNOTE 0920 [facility]. [facility] CHOLECYSTECTOMY, LAPAROSCOPIC Operative Note Date: 08/16/2022 Location: [facility] OR Name: Vida Mejia, : 1960, Diagnosis Pre-op Diagnosis * Calculus of gallbladder without cholecystitis without obstruction [K80.20] * History of gastric bypass [Z98.84] Post-op Diagnosis * Calculus of gallbladder without cholecystitis without obstruction [K80.20] * History of gastric bypass [Z98.84] Procedures CHOLECYSTECTOMY, LAPAROSCOPIC 36745 - [place] LAPS SURG CHOLECYSTECTOMY W/CHOLANGIOGRAPHY Surgeons * Micaela Gupta - Primary * Robyn Del Angel Procedure Summary Anesthesia: General ASA: III Estimated Blood Loss: 10 mL Total IV Fluids: 1000 mL Drains: * None in log * Specimens ID Source Type Tests Collected By Collected At Frozen? Priority Lab ID A Gallbladder Tissue HISTOLOGY - TISSUE EXAM Micaela Gupta MD 08/16/22 0842 No [id number] Description: GALLBLADDER Staff: Pharmaceutical Engineer: Zeny De La Cruz RN Scrub Person: [...] PACU - hemodynamically stable. Condition: stable Normal [facility] POCT GLUCOSE METER UNSOLICIT ED RESULTSon 08-16-2022 Glucose [Mass/Vol] 88 mg/dL Normal 70-105 [facility] Comment on above: Result Comment: epaw low Performed By: #### L [id number] #### [facility] ([facility] [address] [place] [address] POCT SARS-COV-2 PCRon 2021 POC SARS-COV-2 ANTIGEN Negative Normal Negative [facility] Comment on above: Result Comment: ID [...] Certificate of Accreditation. Performed By: #### L [id number] ####[facility] ([facility])[address] [place] [address] Orders Onlyon 08-14-2022 Orders Only [id number] Lex Mejia rri L 1960 F Date Provider Department Center 08/14/2022 [id number], HISTORICAL [facility] Medical C No family history on file Normal [facility] [id number] 08-13-2022 [id number] NPO after [place] Must have a city driver to take you home and someone to stay for 24 hours after surgery. No jewelry. Hold the meds we spoke about: NSAIDS Take the meds we spoke about w/a sip of water DOS: GAPAPENTIN, NEXIUM, INHALER, CYMBALTA Bring insurance card and ID. LABS AND COVID TO BE DONE IN [place]. Normal [facility] CBC AUTO DIFFon 08-13-2022 BASO # 0.0 103/ul Normal 0.0-0.1 [facility] Comment on above: Performed By: #### C BC #### [facility] [address] [place], [place] [address] Dr. Raul Pereira Basophils/100 WBC (Bld) 0.4 % Normal 0.2-2.0 [facility] Comment on above: Performed By: #### C BC #### [facility] [address] [place] [address] Dr. Raul Pereira EO # 0.1 103/ul Normal 0.0-0.7 [facility] Comment on above: Performed By: #### C BC #### [facility] [address] [place] [address] Dr. Raul Pereira Eosinophils/100 WBC (Bld) 1.2 % Normal 0.9-7.0 [facility] Comment on above: Performed By: #### C BC #### [facility] [address] [place] [address] Dr. Raul Pereira Erythrocyte distribution width (RBC) [Ratio] 18.6 % Critically high 11.0-15.0 [facility] Comment on above: Performed By: #### C BC #### [facility] [address] [place] [address] Dr. Raul Pereira Hematocrit (Bld) [Volume fraction] 39.1 % Normal 36.0-48.0 [facility] Comment on above: Performed By: #### C BC #### [facility] [address] [place] [address] Dr. Raul Pereira Hemoglobin (Bld) [Mass/Vol] 12.5 g/dL Normal 12.0-16.0 [facility] Comment on above: Performed By: #### C BC #### [facility] [address] [place] [address] Dr. Raul Pereira IG # 0.03 10e3/ul Normal 0.00-0.03 [facility] Comment on above: Performed By: #### C BC #### [facility] [address] [place] [address] Dr. Raul Pereira IG % 0.4 % Normal 0.0-0.5 [facility] Comment on above: Performed By: #### C BC #### [facility] [address] [place] [address] Dr. Raul Pereira LYMPH # 2.0 103/ul Normal 1.2-3.8 [facility] Comment on above: Performed By: #### C BC #### [facility] [address] [place] [address] Dr. Raul Pereira Lymphocytes/100 WBC (Bld) 27.2 % Normal 20.5-60.0 [facility] Comment on above: Performed By: #### C BC #### [facility] [address] [place] [address] Dr. Raul Pereira MANUAL DIFF REQ NO Normal [facility] Comment on above: Performed By: #### C BC #### [facility] [address] [place] [address] Dr. Raul Pereira MCH (RBC) [Entitic mass] 27.2 pg Normal 26.7-34.0 [facility] Comment on above: Performed By: #### C BC #### [facility] [address] [place] [address] Dr. Raul Pereira MCHC (RBC) [Mass/Vol] 32.0 g/dL Normal 29.9-35.2 [facility] Comment on above: Performed By: #### C BC #### [facility] [address] [place] [address] Dr. Raul Pereira MCV (RBC) [Entitic vol] 85.2 fL Normal 81.0-99.0 [facility] Comment on above: Performed By: #### C BC #### [facility] [address] [place] [address] Dr. Raul Pereira MONO # 0.7 103/ul Normal 0.3-0.8 [facility] Comment on above: Performed By: #### C BC #### [facility] [address] [place] [address] Dr. Raul Pereira Monocytes/100 WBC (Bld) 9.3 % Normal 1.7-12.0 [facility] Comment on above: Performed By: #### C BC #### [facility] [address] [place] [address] Dr. Raul Pereira NEUT # 4.4 103/ul Normal 1.4-6.5 [facility] Comment on above: Performed By: #### C BC #### [facility] [address] [place] [address] Dr. Raul Pereira Neutrophils/100 WBC (Bld) 61.5 % Normal 43.0-75.0 [facility] Comment on above: Performed By: #### C BC #### [facility] [address] [place] [address] Dr. Raul Pereira Platelet mean volume (Bld) [Entitic vol] 8.7 fL Critically low 9.5-13.5 [facility] Comment on above: Performed By: #### C BC #### [facility] [address] [place] [address] Dr. Raul Pereira PLT 387 103/ul Normal 150-450 [facility] Comment on above: Performed By: #### C BC #### [facility] [address] [place] [address] Dr. Raul Pereira RBC 4.59 106/ul Normal 4.20-5.40 [facility] Comment on above: Performed By: #### C BC #### [facility] [address] [place] [address] Dr. Raul Pereira WBC 7.2 103/ul Normal 4.0-11.0 [facility] Comment on above: Performed By: #### C BC #### [facility] [address] [place] [address] Dr. Raul Pereira [facility]19 SARS-CoV-2 (COVID-19) RNA IMELDA+probe Ql (Unsp spec) Not detected Normal NOT DETECTED [facility] Comment on above: Result Comment: This test is not yet approved or cleared by the [place] FDA. When there are no FDA-approved or cleared tests available, and other criteria are met, FDA can make tests available under an emergency access mechanism called an Emergency Use Authorization (EUA). The EUA for this test is supported by the Horatio of Health and Human Service's (HHS's) declaration [...] SARS-CoV-2. Performed By: #### C VDTB #### [facility] [address] [place] [address] Dr. Raul Pereira PROF CHEM 8 (BAS METB)on Anion gap [Moles/Vol] 11.5 mmol/L Normal [facility] Comment on above: Performed By: #### C BC #### [facility] [address] [place] [address] Dr. Raul Pereira Calcium [Mass/Vol] 9.5 mg/dL Normal 8.5-10.1 [facility] Comment on above: Performed By: #### C BC #### [facility] [address] [place] [address] Dr. Raul Pereira Chloride [Moles/Vol] 101 mmol/L Normal 98-107 [facility] Comment on above: Performed By: #### C BC #### [facility] [address] [place] [address] Dr. Raul Pereira CO2 [Moles/Vol] 29.6 mmol/L Normal 21.0-32.0 [facility] Comment on above: Performed By: #### C BC #### [facility] [address] [place] [address] Dr. Raul Pereira Creatinine [Mass/Vol] 0.65 mg/dL Normal 0.55-1.02 [facility] Comment on above: Performed By: #### C BC #### [facility] [address] [place] [address] Dr. Raul Pereira EGFR-AF CHILEAN >60 Normal >=60 [facility] Comment on above: Performed By: #### C BC #### [facility] [address] [place] [address] Dr. Raul Pereira EGFR-NON AF CHILEAN >60 Normal >=60 [facility] Comment on above: Performed By: #### C BC #### [facility] [address] [address] [address] Raul Pereira Glucose [Mass/Vol] 104 mg/dL Normal 74-106 [facility] Comment on above: Performed By: #### C BC #### [facility] [address] [address] [address] Raul Pereira Potassium [Moles/Vol] 4.1 mmol/L Normal 3.5-5.1 [facility] Comment on above: Performed By: #### C BC #### [facility] [address] [address] [address] Raul Pereira Sodium [Moles/Vol] 138 mmol/L Normal 136-145 [facility] Comment on above: Performed By: #### C BC #### [facility] [address] [address] [address] Raul Pereira Urea nitrogen [Mass/Vol] 11.0 mg/dL Normal 7.0-18.0 [facility] Comment on above: Performed By: #### C BC #### [facility] [address] [address] [address] Raul Pereira Urea nitrogen/Creatinine [Mass ratio] 16.9 mg/mg Normal [facility] Comment on above: Performed By: #### C BC #### [facility] [address] [address] [address] Raul Pereira Office Visiton 08-06-2022 Follow-up visit [id number] Lex Mejia rrmonica L 1960 F Date Provider Department Center 08/06/2022 454-MICAELA GUPTA [facility] SURG Second Fl No family history on file Level of Service:48239 [place] OFFICE/OUTPATIENT ESTABLISHED LOW MDM 20-29 MIN Reason for Visit and Comments: Consult [484] - Vida is here for a gallbladder consult. Vida also c/o swelling in right leg with pain in calf. Normal [facility] PROTIME-INRon 08-06-2022 INR IN PPP BY COAGULATION ASSAY 0.89 Low 0.90-1.10 [facility] Comment on above: Result Comment: ACCC [...] 1995;108:[id number]. Performed By: #### L [id number] #### [facility] [address] [place] [address] PROTHROMBIN TIME (PT) IN PPP BY COAGULATION ASSAY 12.1 Seconds Low 12.3-14.8 [facility] Comment on above: Performed By: #### L [id number] #### [facility] [address] [place] [address] CT ABD/PELVIS WO CONon 07-24 CT ABD/PELVIS [...] by: REINALDO LIPSCOMB Date: 2022-07-24 17:21 Normal [facility] NM HEPATOBILIARY SCAN W EFon 07-18-2022 CT HEPATOBILIARY SCAN W EF EXAMINATION: NM HEPATOBILIARY [...] above: Performed By: #### C BC #### [facility] [address] [address] [address] Raul Pereira Basophils/100 WBC (Bld) 0.5 % Normal 0.2-2.0 [facility] Comment on above: Performed By: #### C BC #### [facility] [address] [address] [address] Raul Pereira EO # 0.1 103/ul Normal 0.0-0.7 [facility] Comment on above: Performed By: #### C BC #### [facility] [address] [address] [address] Raul Pereira Eosinophils/100 WBC (Bld) 0.9 % Normal 0.9-7.0 [facility] Comment on above: Performed By: #### C BC #### [facility] [address] [address] [address] Raul Pereira Erythrocyte distribution width (RBC) [Ratio] 20.2 % Critically high 11.0-15.0 [facility] Comment on above: Performed By: #### C BC #### [facility] [address] [address] [address] Raul Pereira Hematocrit (Bld) [Volume fraction] 41.1 % Normal 36.0-48.0 [facility] Comment on above: Performed By: #### C BC #### [facility] [address] [address] [address] Raul Pereira Hemoglobin (Bld) [Mass/Vol] 13.2 g/dL Normal 12.0-16.0 [facility] Comment on above: Performed By: #### C BC #### [facility] [address] [address] [address] Raul Pereira IG # 0.05 10e3/ul Critically high 0.00-0.03 [facility] Comment on above: Performed By: #### C BC #### [facility] [address] [address] [address] Raul Pereira IG % 0.6 % Critically high 0.0-0.5 [facility] Comment on above: Performed By: #### C BC #### [facility] [address] [place] [address] Dr. Raul Pereira LYMPH # 1.4 103/ul Normal 1.2-3.8 [facility] Comment on above: Performed By: #### C BC #### [facility] [address] [place] [address] Dr. Raul Pereira Lymphocytes/100 WBC (Bld) 17.3 % Critically low 20.5-60.0 [facility] Comment on above: Performed By: #### C BC #### [facility] [address] [place] [address] Dr. Raul Pereira MANUAL DIFF REQ NO Normal [facility] Comment on above: Performed By: #### C BC #### [facility] [address] [place] [address] Dr. Raul Pereira MCH (RBC) [Entitic mass] 27.3 pg Normal 26.7-34.0 [facility] Comment on above: Performed By: #### C BC #### [facility] [address] [place] [address] Dr. Raul Pereira MCHC (RBC) [Mass/Vol] 32.1 g/dL Normal 29.9-35.2 [facility] Comment on above: Performed By: #### C BC #### [facility] [address] [place] [address] Dr. Raul Pereira MCV (RBC) [Entitic vol] 84.9 fL Normal 81.0-99.0 [facility] Comment on above: Performed By: #### C BC #### [facility] [address] [place] [address] Dr. Raul Pereira MONO # 0.8 103/ul Normal 0.3-0.8 [facility] Comment on above: Performed By: #### C BC #### [facility] [address] [place] [address] Dr. Raul Pereira Monocytes/100 WBC (Bld) 10.0 % Normal 1.7-12.0 [facility] Comment on above: Performed By: #### C BC #### [facility] [address] [place] [address] Dr. Raul Pereira NEUT # 5.8 103/ul Normal 1.4-6.5 [facility] Comment on above: Performed By: #### C BC #### [facility] [address] [place] [address] Dr. Raul Pereira Neutrophils/100 WBC (Bld) 70.7 % Normal 43.0-75.0 [facility] Comment on above: Performed By: #### C BC #### [facility] [address] [place] [address] Dr. Raul Pereira Platelet mean volume (Bld) [Entitic vol] 9.1 fL Critically low 9.5-13.5 [facility] Comment on above: Performed By: #### C BC #### [facility] [address] [place] [address] Dr. Raul Pereira PLT 358 103/ul Normal 150-450 [facility] Comment on above: Performed By: #### C BC #### [facility] [address] [place] [address] Dr. Raul Pereira RBC 4.84 106/ul Normal 4.20-5.40 [facility] Comment on above: Performed By: #### C BC #### [facility] [address] [place] [address] Dr. Raul Pereira WBC 8.1 103/ul Normal 4.0-11.0 [facility] Comment on above: Performed By: #### C BC #### [facility] [address] [place] [address] Dr. Raul Pereira LIPASEon 07-13-2022 Lipase [Catalytic activity/Vol] 47.0 U/L Critically low 73.0-393.0 [facility] Comment on above: Performed By: #### C BC #### [facility] [address] [place] [address] Dr. Raul Pereira PROF 14(COMP METB)on 022 Albumin [Mass/Vol] 3.6 g/dL Normal 3.4-5.0 [facility] Comment on above: Performed By: #### C BC #### [facility] [address] [address] [address] Raul Pereira Albumin/Globulin [Mass ratio] 1.0 {ratio} Normal [facility] Comment on above: Performed By: #### C BC #### [facility] [address] [place] [address] Dr. Raul Pereira ALP [Catalytic activity/Vol] 88 U/L Normal 46-116 [facility] Comment on above: Performed By: #### C BC #### [facility] [address] [place] [address] Dr. Raul Pereira ALT [Catalytic activity/Vol] 16 U/L Normal 14-59 [facility] Comment on above: Performed By: #### C BC #### [facility] [address] [place] [address] Dr. Raul Pereira Anion gap [Moles/Vol] 13.2 mmol/L Normal [facility] Comment on above: Performed By: #### C BC #### [facility] [address] [place] [address] Dr. Raul Pereira AST [Catalytic activity/Vol] 15 U/L Normal 15-37 [facility] Comment on above: Performed By: #### C BC #### [facility] [address] [place] [address] Dr. Raul Pereira Bilirubin [Mass/Vol] 0.2 mg/dL Normal 0.2-1.0 [facility] Comment on above: Performed By: #### C BC #### [facility] [address] [place] [address] Dr. Raul Pereira Calcium [Mass/Vol] 9.5 mg/dL Normal 8.5-10.1 [facility] Comment on above: Performed By: #### C BC #### [facility] [address] [place] [address] Dr. Raul Pereira Chloride [Moles/Vol] 100 mmol/L Normal 98-107 [facility] Comment on above: Performed By: #### C BC #### [facility] [address] [place] [address] Dr. Raul Pereira CO2 [Moles/Vol] 28.0 mmol/L Normal 21.0-32.0 [facility] Comment on above: Performed By: #### C BC #### [facility] [address] [address] [address] Raul Pereira Creatinine [Mass/Vol] 0.78 mg/dL Normal 0.55-1.02 [facility] Comment on above: Performed By: #### C BC #### [facility] [address] [address] [address] Raul Pereira EGFR-AF CHILEAN >60 Normal >=60 [facility] Comment on above: Performed By: #### C BC #### [facility] [address] [address] [address] Raul Pereira EGFR-NON AF CHILEAN >60 Normal >=60 [facility] Comment on above: Performed By: #### C BC #### [facility] [address] [address] [address] Raul Pereira Globulin (S) [Mass/Vol] 3.6 g/dL Normal [facility] Comment on above: Performed By: #### C BC #### [facility] [address] [address] [address] Raul Pereira Glucose [Mass/Vol] 86 mg/dL Normal 74-106 [facility] Comment on above: Performed By: #### C BC #### [facility] [address] [address] [address] Raul Pereira Potassium [Moles/Vol] 4.2 mmol/L Normal 3.5-5.1 [facility] Comment on above: Performed By: #### C BC #### [facility] [address] [address] [address] Raul Pereira Protein [Mass/Vol] 7.2 g/dL Normal 6.4-8.2 [facility] Comment on above: Performed By: #### C BC #### [facility] [address] [address] [address] Raul Pereira Sodium [Moles/Vol] 137 mmol/L Normal 136-145 [facility] Comment on above: Performed By: #### C BC #### [facility] [address] [place], [place] [address] Dr. Raul Pereira Urea nitrogen [Mass/Vol] 11.0 mg/dL Normal 7.0-18.0 [facility] Comment on above: Performed By: #### C BC #### [facility] [address] [place], [place] [address] Dr. Raul Pereira Urea nitrogen/Creatinine [Mass ratio] 14.1 mg/mg Normal [facility] Comment on above: Performed By: #### C BC #### [facility] [address] [place], [place] [address] Dr. Raul Pereira US SINGLE QUAD RT [...] spec) Not detected Normal NOT DETECTED [facility] Comment on above: Result Comment: This test is not yet approved or cleared by the [place] FDA. When there are no FDA-approved or cleared tests available, and other criteria are met, FDA can make tests available under an emergency access mechanism called an Emergency Use Authorization (EUA). The EUA for this test is supported by the [place] of Health and Human Service's (HHS's) declaration [...] consistent with SARS-CoV-2. Performed By: #### [facility] #### [facility] [address] [place] [address] Dr. Raul Pereira Endoscopy Reporton 8 Endoscopy Report [id number] Vida [facility] Surgery Date: 02/24/2018 Room #: Z0 Date of : 1960 PROCEDURE NOTEATTENDING: Xin Beasley M.D.PROCEDURE PERFORMED: EGD.BILLET GRINDER: Dr. Noland.SEDATION:1. Versed 10 mg.2. Fentanyl 250 [...] 02/24/2018/09:53 Isabella/Ruddy Noland M.D.Date Trans: 02/24/2018 12:13 P/sonalioDN_JN:[id number] cc: Napoleon Rahman M.D. [address], [place] [facility] [address] Normal [facility] Endoscopy Report MR#: [id number] Name: Vida Mejia Surgery Date: 02/24/2018 Room #: Z0 Date of : 1960 PROCEDURE NOTEATTENDING: Xin Beasley M.D.PROCEDURE PERFORMED: Colonoscopy and polypectomy.BILLET GRINDER: Ruddy Noland M.D.SEDATION: Versed 10 mg and [...] 02/24/2018/09:57 A/Ruddy Noland M.D.Date Trans: 02/24/2018 10:12 A/Aditya_JN:[id number] cc: Napoleon Rahman M.D. [address] [place] [address] Normal [facility] POC GLUCOSE LABon 02-24-2018 Glucose mass conc 87 mg/dL Normal 70-100 [facility] Comment on above: Performed By: #### [id number] ####[facility] Vital Signs Date Time Vital Sign Value Performing Clinician Facility NEGATED: Highlighted row BMI (Body Mass Index) [facility] NEGATED: Highlighted row Body Temperature [facility] NEGATED: Highlighted row Body weight Gene [facility] NEGATED: Highlighted row BP Diastolic Gene [facility] NEGATED: Highlighted row BP Systolic [facility] NEGATED: Highlighted row Height [facility] NEGATED: Highlighted row Pulse (Heart Rate) [facility] NEGATED: Highlighted row Pulse Oximetry [facility] NEGATED: Highlighted row Respiratory Rate [facility] Encounters Encounter Date Encounter Type Care Provider Facility Start: 01-30-2024 ambulatory Cristian Johnson acility:[facility] Start: 09-22-2023 End: 09-23-2023 ambulatory Monica Malagon [...] abnormal findings DR NAPOLEON RAHMAN . [facility] Start: 01-31-2023 End: 02-01-2023 Encounter [...] laboratory examination DR BETHEL LITTLE . [facility] Start: 12-13-2022 End: 12-14-2022 ambulatory [...] . Facility:[facility] Start: 08-27-2022 End: 08-27-2022 ambulatory [facility] Start: 08-16-2022 End: 08-16-2022 ambulatory [facility] Start: 08-15-2022 Encounter for other preprocedural examination DR MICAELA GUPTA [facility] Start: 08-15-2022 Encounter for preprocedural laboratory examination DR MICAELA GUPTA [facility] Start: 08-13-2022 End: 08-14-[address] MICAELA GUPTA Facility:[facility] Start: 08-13-2022 End: 08-14-2022 Encounter for other preprocedural examination DR MICAELA GUPTA Facility:[facility] Start: 08-06-2022 End: 08-07-2022 ambulatory [facility] Start: 08-06-2022 End: 08-06-2022 ambulatory [facility] Start: 08-06-2022 ambulatory [facility] Start: 07-24-2022 End: 07-25-[address] NAPOLEON [...] Start: 02-24-2018 End: 02-25-2018 Ambulatory XIN BEASLEY Facility:[facility] Start: 10-19-2014 End: 10-19-2014 Patient encounter procedure [facility] Start: 12-22-2013 End: 12-22-2013 Departed Referred [facility] Start: 10-12-2001 End: 10-12-2001 Patient encounter procedure [facility] Start: 09-01-2001 End: 09-01-2001 Patient encounter procedure [facility] Start: 08-26-2001 End: 08-26-2001 Patient encounter procedure [facility] Start: 03-21-1999 End: 03-28-1999 Evaluation and management of inpatient [facility] Start: 09-07-1997 End: 09-07-1997 Admission to day surgery [facility] Start: 07-21-1997 End: 07-21-1997 Emergency department patient visit [facility] Procedures Date Procedure Procedure Detail Performing Clinician Start: 02-24-2018 Colsc flx w/removal lesion by hot bx forceps XIN BEASLEY Payers Date Payer Category Payer Unknown 1960 Self-pay 1960 Self-pay [id number] 1960 Unknown [id number] 1960 Unknown [id number] 2.16.84 0.1.976992.3.579.2.593 1960 Unknown [id number] 2.16.84 0.1.600968.3.579.2.593 1960 Unknown [id number] 2.16.84 0.1.517348.3.579.2.593 1959 Unknown [id number] 2.16.84 0.1.989021.3.579.2.593 1959 Unknown [id number] 2.16.84 0.1.391332.3.579.2.593 1959 Unknown [id number] 2.16.84 0.1.478719.3.579.2.593 1959 Unknown [id number] 2.16.84 0.1.619460.3.579.2.593 1959 Unknown [id number] 2.16.84 0.1.054682.3.579.2.593 1959 Unknown [id number] 2.16.84 0.1.043472.3.579.2.593 1959 Unknown [id number] 2.16.84 0.1.528196.3.579.2.593 1959 Unknown [id number] 2.16.84 0.1.790951.3.579.2.593 1959 Unknown [id number] 2.16.84 0.1.313586.3.579.2.593 1959 Unknown [id number] 2.16.84 0.1.536272.3.579.2.593 1959 Unknown [id number] 2.16.84 0.1.981021.3.579.2.593 1959 Unknown [id number] 2.16.84 0.1.122923.3.579.2.593 1959 Unknown [id number] 2.16.84 0.1.249128.3.579.2.593 1959 Unknown [id number] 2.16.84 0.1.750512.3.579.2.593 1959 Unknown [id number] 2.16.84 0.1.190012.3.579.2.593 1959 Unknown [id number] 2.16.84 0.1.188003.3.579.2.593 1959 Unknown [id number] 2.16.84 0.1.717874.3.579.2.593 1959 Unknown [id number] 2.16.84 0.1.940774.3.579.2.593 1959 Unknown [id number] 2.16.84 0.1.173965.3.579.2.593 1959 Unknown [id number] 2.16.84 0.1.397309.3.579.2.593 1959 Unknown [id number] 2.16.84 0.1.127685.3.579.2.593 1959 Unknown [id number] 2.16.84 0.1.120928.3.579.2.593 1959 Unknown [id number] 2.16.84 0.1.511386.3.579.2.593 1959 Unknown [id number] 2.16.84 0.1.849549.3.579.2.593 1959 Unknown [id number] 2.16.84 0.1.902633.3.579.2.593 1959 Unknown [id number] 2.16.84 0.1.512090.3.579.2.593 1959 Unknown [id number] 2.16. 840.1.700707.3.579.2.196 Medicare [id number] [id number] Unknown [id number] Unknown [id number] 2.16.84 0.1.965837.3.579.2.593 Unknown [id number] 2.16.8 40.1.561155.3.579.2.531 Clinical Notes 05-15-2022 to 02-18-2023 Note Date [...] our patients to inform us about any qirr-ybd-gqvtuqz medications or herbal remedies/nutritional supplements/alternative remedies. 2. [...] options with their primary care provider. [facility] 01-16-2023 Note CONSULTATION CONSULTATION DATE: [...] up in the clinic post epidural. [facility] 12-04-2022 Note CONSULTATION CONSULTATION DATE: [...] in the office after the procedure. [facility] 11-15-2022 Note CONSULTATION PROCEDURE DATE: [...] the office following her RFA procedure. [facility] 11-15-2022 Note CONSULTATION CONSULTATION DATE: [...] measures such as heat and stretches. [facility] 08-29-2022 Note CONSULTATION PROCEDURE DATE: [...] pattern. Patient tolerated the procedure well. [facility] 08-29-2022 Note CONSULTATION CONSULTATION DATE: [...] up in the office post procedure. [facility] 08-29-2022 Note CONSULTATION CONSULTATION DATE: 08/29/2022 ADDENDUM: Addendum to peer plan: We will repeat radiofrequency ablation starting on the right side and subsequently moving to the left at T11, T12 and L1, L2. [facility] 08-27-2022 Note Subjective Patient ID: Vida [...] past 36 hour(s)). No follow-ups on file. [facility] 08-16-2022 Note Patient: Vida rousseau Procedure Summary Date: 08/16/22 Room / Location: [facility] OPERATING ROOM 01 / [facility] Operating Room Anesthesia Start: 734 Anesthesia [...] no known notable events for this encounter. [facility] 08-16-2022 Note Airway Date/Time: 08/16/2022 7:44 AM Urgency: elective Airway not difficult General Information and Staff Patient location during procedure: OR Anesthesiologist: Cassi Velez MD Resident/STEAM SHOVELMAN/CAA: LEONARD Canales Performed: resident/STEAM SHOVELMAN/LEONARD Indications and Patient Condition Indications for airway [...] before airway management; Dentures to Circ RN [facility] 08-16-2022 Note Patient: Vida rousseau Procedure Information Date/Time: 08/16/2230 Procedure: CHOLECYSTECTOMY, LAPAROSCOPIC, WITH INTRAOPERATIVE CHOLANGIOGRAM, WITH LAPAROTOMY IF INDICATED REQ ERIC OR MANDO HUERTA MAUK, [place] - C-ARM AVAIL STAFF REQUESTS: LENIN DE LA CRUZ Location: [facility] OPERATING ROOM 01 / [facility] Operating Room Surgeons: Micaela Gupta MD [...] Plan discussed with CAA. Additional Equipment Requests [facility] 08-06-2022 Note Subjective Patient ID: Vida [...] past 36 hour(s)). No follow-ups on file. [facility] 08-06-2022 Note Subjective Patient ID: Vida [...] past 36 hour(s)). No follow-ups on file. [facility] 06-12-2022 Note CONSULTATION PROCEDURE DATE: 06/12/2022 [...] The patient tolerated the procedure well. [facility] 06-12-2022 Note CONSULTATION CONSULTATION DATE: [...] agrees to the plan of care. [facility] 05-15-2022 Note CONSULTATION CONSULTATION DATE: [...] Patient agrees with the plan of care. [facility] Signed and Approved by: RUBY RAMIREZ [...] will be followed up in the office. [facility] Signed and Approved by: RUBY RAMIREZ . 05/16/2022 13:38:00 [facility] Summary Purpose Family History No [...] and content) DATE CREATED AUTHOR 05/07/2018 [facility] DATE CREATED AUTHOR AUTHOR'S ORGANIZ ATION 09/26/2022 [facility] DATE CREATED AUTHOR AUTHOR'S ORGANIZ ATION 03/28/2023 [facility] DATE CREATED AUTHOR AUTHOR'S ORGANIZ ATION 09/25/2023 [facility] DATE CREATED AUTHOR AUTHOR'S ORGANIZ ATION 03/25/2024 [facility] FOR RECORDS PERTAINING TO PATIENTS [...] BE BASED ON THE PRIMARY CLINICAL RECORDS. [facility]. provides no warranty or guarantee of the accuracy or completeness of information in this document.
[2024-06-21 09:08] VITALS: BP 147/89; PULSE 89; TEMP 36.7; O2SAT 92
[2024-06-21] MEDS: 0.9 % SODIUM CHLORIDE 500 ML IV (09:17)
[2024-06-21] MEDS: BUPIVACAINE HCL 0.25% PF 25 MG/10 ML VIAL 5 ML INJ (09:50)
[2024-06-21] MEDS: TRIAMCINOLONE ACETONIDE 40 MG/ML VIAL 80 MG INJ (09:50)
[2024-06-21] MEDS: LIDOCAINE HCL 2% 400 MG/20 ML MDV INJ (09:50)
--- NOTE | 2024-06-21 10:05 | P.ON_ITS ---
Date of procedure: 06/21/24 Pre-op diagnosis: Pain due to lumbar spondylosis without myelopathy Post-op diagnosis: same as pre-op Procedure: Procedure: Bilateral L2-3, L4-5 radiofrequency ablation Medications: Bupivacaine 0.25% 6cc, lidocaine 2% 5cc, kenalog 80mg The patient was seen and examined in the preoperative holding area.? The site was marked.? Written informed consent was obtained and placed on the chart.? The patient was brought to the medical procedure unit and placed in the prone position.? A timeout was completed verifying correct patient, procedure, positioning, and special requirements.? The skin overlying the target points, the designated medial branch, were prepped and draped in the usual sterile fashion.? The target point was achieved with a 20-gauge 15 cm with a 10 mm curved active tip radiofrequency cannula under direct fluoroscopic visualization.? The needle was inserted at level L2 on the right side. Needle tip position was confirmed with lateral fluoroscopic position.? Motor stimulation was carried out at 2 Hz up to 5 volts with the absence of extremity activity.? This was repeated at level L3, 4, 5 on right side.?? Sensory stimulation was carried out.? Concordant pain was realized at the above- mentioned sites.? Then radiofrequency lesioning was carried out times 90 seconds at 80 degrees times 2 lesions at each level.? The radiofrequency probe was removed prior to cannula removal.? The above-mentioned injectate was placed in 1 mL increments.? The needle was removed. The same procedure, with the same steps, was then completed on the left side at the same levels. Insertion sites were covered.? The patient was taken to the postoperative recovery area and monitored for an appropriate length of time before being found suitable for discharge in the company of a responsible adult. Anesthesia: MAC Surgeon: Monica Malagon Pathology: none sent Condition: stable Disposition: no change
[2024-06-21 10:07] VITALS: BP 126/83; PULSE 87; TEMP 36.5; O2SAT 98
[2024-06-21 10:10] VITALS: BP 129/62; PULSE 87; TEMP 36.5; O2SAT 98
== END 2024-06-21 10:32 | disposition home or self-care (01) ==
LOC: SURGOUT 08:49
PROVIDERS: PCP Family Medicine; Visit Provider Anesthesiology
DX: M47.816 Spondylosis without myelopathy or radiculopathy, lumbar region (principal)
CPT/HCPCS: 64635; 64636; J0665; J2704; J3301

== ENCOUNTER 2024-07-21 08:21 | Outpatient (OUT) | payer MEDICARE, OTHER, SELFPAY ==
--- OUTSIDE RECORDS SUMMARY | 2024-07-21 08:29 | XMS_ITS | CCD ---
Author Organization [facility] Care Team Providers [employer] Vice [employer] Name Role Phone NAWRAS, ALI T Unavailable Unavailable NAWRAS, ALI T Unavailable Unavailable HOKelvin, NAPOLEON Unavailable Unavailable HOELSY WarrenLAS Unavailable Unavailable AR Unavailable Unavailable NAWRAS, ALI T Unavailable Unavailable Irving Zamora Attending Physician UnavailNapoleon Florentino Primary Care Physician Unavailab MICAELA Joseph Attending Unavailable MICAELA GUPTA Attending Unavailable MICAELA GUPTA Referring Unavailable MICAELA GUPTA Referring Unavailable MICAELA GUPTA Attending Unavailable MARLON GUPTAIN Admitting Unavailable LAKSHMIPATHY ., NARENDRANATH Admitting Rajani vailable LAKSHMIPATHY ., ANNAATH Consulting Rajani vailable HOY ., DR BENDER Primary Care Unavailable LAKSHMIPATHY ., AMIRA Attending Rajani vailable KRYSTIAN ALFARO Consulting Unavailable HOY ., DR BENDER Primary Care Unavailable LAKSHMIPATHY ., AMIRA Admitting Rajani vailable RAMIREZ .RUBY Consulting Unavailable [...] Unavailable HOY ., DR BENDER Attending Unavailable CANTON, DR MEAGHAN Stanton Consulting Unavailable HOY ., [...] Unavailable HOY ., DR BENDER Attending Unavailable CANTON, DR MEAGHAN Stanton Consulting Unavailable RAMIREZ ., RUBY Consulting Unavailable LITTLE ., DR BETHEL Reyes Attending Unavailable LITTLE ., DR BETHEL Reyes Admitting Unavailable HOY ., DR BENDER Primary Care Unavailable RAMIREZ ., RUBY Consulting Unavailable LITTLE ., DR BETHEL Reyes Attending Unavailable LITLTE ., DR BETHEL Reyes Admitting Unavailable HOY [...] REQUEST, DR KENNETH LISTED Consulting Unavaila iker RAHMAN ., DR BENDER Primary Care Unavailable HOY ., DR BENDER Admitting Unavailable HOY ., DR BENDER Attending Unavailable Cristian Morris Attending Unavailab Cristian Du Admitting Unavailab Napoleon Gómez Primary Care Unavailable Gijohnitis , Monica Todd Attending Unavailable Gieditis , Monica Todd Attending Unavailable Allergies Allergy Classification Reported Allergen(s) Allergy Type Date of Onset Reaction(s) Facility (1 source) Contrast media; Translations: [IVP DYE] Propensity to adverse reactions (disorder) 1 [facility] Repository (2 sources) corn extract; Translations: [CORN] Drug Allergy 1 [facility] Repository (6 sources) iodine; Translations: [IODINE] Drug Allergy 9 Edema [facility] Repository (6 sources) Latex; Translations: [LATEX] Drug allergy (disorder) 9 Anaphylaxis [facility] Repository (1 source) loratadine Drug Allergy 1 [facility] Repository (2 sources) loratadine; Translations: [LORATADINE] Drug Allergy 3 [facility] Repository (1 source) montelukast Drug Allergy 1 [facility] Repository (3 sources) papaveretum; Translations: [SOYBEAN] Drug Allergy 1 [facility] Repository (2 sources) Penicillins; Translations: [PENICILLINS] Drug allergy (disorder) 1 [facility] Repository (1 source) povidone-iodine Drug Allergy 9 [facility] Repository (6 sources) propofol; Translations: [PROPOFOL] Drug Allergy 2 Anaphylaxis [facility] Repository (2 sources) wheat preparation; Translations: [WHEAT] Drug Allergy 2 [facility] Repository (5 sources) Iodinated Contrast Media; Translations: [IODINATED CONTRAST MEDIA] Allergy to Substance 4 Anaphylaxis [facility] Repository (1 source) montelukast; Translations: [MONTELUKAST] Drug Allergy 4 [facility] Repository (1 source) oxybutynin; Translations: [DITROPAN] Drug Allergy 2 [facility] Repository (1 source) Povidone-Iodine; Translations: [POVIDONE-IODINE] Drug Allergy 4 [facility] Repository (1 source) Soy protein; Translations: [SOY] Propensity to adverse reactions to drug (disorder) 2 [facility] Repository (1 source) Iodine (And Iodine Containting Drugs) Drug allergy (disorder) 4 [facility] Repository (1 source) Penicillin Drug Allergy [facility] Repository (1 source) Sulfonamides (Antibiotic) Drug allergy (disorder) 2 [facility] Repository (1 source) Iodine Drug Allergy 8 [facility] Repository (1 source) Latex Drug allergy (disorder) 8 [facility] Repository (1 source) Propofol Drug Allergy 8 [facility] Repository Medications Completed/Discontinued Medications Medication Drug [...] 07-15-2022 Episodic Other aftercare (1 source) Other fdc (current) drug therapy; Translations: [OTH 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 Raul Pereira Basophils/100 WBC (Bld) 0.6 % Normal 0.2-2.0 [facility] Comment on above: Performed By: #### C BC #### [facility] [address] [address] [address] Raul Pereira EO # 0.2 103/ul Normal 0.0-0.7 [facility] Comment on above: Performed By: #### C BC #### [facility] [address] [address] [address] Raul Pereira Eosinophils/100 WBC (Bld) 2.3 % Normal 0.9-7.0 [facility] Comment on above: Performed By: #### C BC #### [facility] [address] [address] [address] Raul Pereira Hematocrit (Bld) [Volume fraction] 39.5 % Normal 36.0-48.0 [facility] Comment on above: Performed By: #### C BC #### [facility] [address] [address] [address] Raul Pereira Hemoglobin (Bld) [Mass/Vol] 12.3 g/dL Normal 12.0-16.0 [facility] Comment on above: Performed By: #### C BC #### [facility] [address] [address] [address] Raul Pereira IG # 0.03 10e3/ul Normal 0.00-0.03 [facility] Comment on above: Performed By: #### C BC #### [facility] [address] [place] [address] Dr. Raul Pereira IG % 0.4 % Normal 0.0-0.5 [facility] Comment on above: Performed By: #### C BC #### [facility] [address] [place] [address] Dr. Raul Pereira LYMPH # 2.1 103/ul Normal 1.2-3.8 [facility] Comment on above: Performed By: #### C BC #### [facility] [address] [place] [address] Dr. Raul Pereira Lymphocytes/100 WBC (Bld) 24.8 % Normal 20.5-60.0 [facility] Comment on above: Performed By: #### C BC #### [facility] [address] [place] [address] Dr. Raul Pereira MANUAL DIFF REQ NO Normal [facility] Comment on above: Performed By: #### C BC #### [facility] [address] [place] [address] Dr. Raul Pereira MCH (RBC) [Entitic mass] 26.3 pg Critically low 26.7-34.0 [facility] Comment on above: Performed By: #### C BC #### [facility] [address] [place] [address] Dr. Raul Pereira MCHC (RBC) [Mass/Vol] 31.1 g/dL Normal 29.9-35.2 [facility] Comment on above: Performed By: #### C BC #### [facility] [address] [place] [address] Dr. Raul Pereira MCV (RBC) [Entitic vol] 84.4 fL Normal 81.0-99.0 [facility] Comment on above: Performed By: #### C BC #### [facility] [address] [place] [address] Dr. Raul Pereira MONO # 1.0 103/ul Critically high 0.3-0.[address] [facility] Comment on above: Performed By: #### C BC #### [facility] [address] [place] [address] Dr. Raul Pereira Monocytes/100 WBC (Bld) 11.8 % Normal 1.7-12.0 [facility] Comment on above: Performed By: #### C BC #### [facility] [address] [place] [address] Dr. Raul Pereira NEUT # 5.0 103/ul Normal 1.4-6.5 [facility] Comment on above: Performed By: #### C BC #### [facility] [address] [place] [address] Dr. Raul Pereira Neutrophils/100 WBC (Bld) 60.1 % Normal 43.0-75.0 [facility] Comment on above: Performed By: #### C BC #### [facility] [address] [place] [address] Dr. Raul Pereira Platelet mean volume (Bld) [Entitic vol] 8.8 fL Critically low 9.5-13.5 [facility] Comment on above: Performed By: #### C BC #### [facility] [address] [place] [address] Dr. Raul Pereira PLT 418 103/ul Normal 150-450 [facility] Comment on above: Performed By: #### C BC #### [facility] [address] [place] [address] Dr. Raul Pereira RBC 4.68 106/ul Normal 4.20-5.40 [facility] Comment on above: Performed By: #### C BC #### [facility] [address] [place] [address] Dr. Raul Pereira WBC 8.3 103/ul Normal 4.0-11.0 [facility] Comment on above: Performed By: #### C BC #### [facility] [address] [place] [address] Dr. Raul Pereira FERRITINon 02-20-2023 Ferritin [Mass/Vol] 15.0 ng/mL Normal 8.0-252.0 [facility] Comment on above: Performed By: #### C BC #### [facility] [id number] Raul Pereira XR CSPINE 2_3 VIEWSon [...] by: JESSICA LIPSCOMB Date: 2023-02-19 06:42 Normal [facility] CT LUNG CANCER SCREENINGon 0 02-13-2023 [...] by: MEAGHAN SKINNER Date: 2023-02-13 11:02 Normal [facility] ECHOCARDIO M/2D COMPLETEon 0 02-13-2023 ECHOCARDIO M/2D COMPLETE Patient: RHETT MEJIA Exam Date: 02/13/2023 : 1960 Gender:F Ordering : DR NAPOLEON RAHMAN . Admission #: [id number] Family : Order #: [id number] CLICK HERE TO VIEW EXAM ECHOCARDIOGRAM REPORT [...] on 02/13/2023 at 18:54 Normal [facility] CREATININEon 02-12-2023 Creatinine [Mass/Vol] 0.76 mg/dL Normal 0.55-1.02 [facility] Comment on above: Performed By: #### C BC #### [facility] [address] [address] [address] Raul Pereira EGFR-AF INDONESIAN >60 Normal >=60 [facility] Comment on above: Performed By: #### C BC #### [facility] [address] [address] [address] Raul Pereira EGFR-NON AF INDONESIAN >60 Normal >=60 [facility] Comment on above: Performed By: #### C BC #### [facility] [address] [address] [address] Raul Pereira MRI BRAIN WO W [...] by: JESSICA LIPSCOMB Date: 2023-02-12 12:37 Normal [facility] US CAROTID ART BILon 023 US CAROTID ART ALEXUS EXAMINATION: US [...] LIPSCOMB Date: 2023-02-12 14:03 Normal [facility] COMPLIANCE DRUG SCREENon PDF . Normal [facility] Comment on above: Performed By: #### C BC #### [facility] [address] [place], [place] [address] Dr. Raul Pereira Summary FINAL Normal [facility] Comment on above: Result Comment: == [...] Performed By: #### C BC #### [facility] [address] [place] [address] Dr. Raul Pereira CULTURE URINEon 02-02-2023 CULTURE [...] zole <=20 S F Normal [facility] Comment on above: Performed By: #### U RCX #### [facility] [address] [place] [address] Dr. Raul Pereira AMMONIAon 01-31-2023 Ammonia (P) [Moles/Vol] 13 umol/L Normal 11-32 [facility] Comment on above: Performed By: #### A MM ####[facility] [address] [place], [place] [address]Dr. Raul Pereira CBC AUTO DIFFon 01-31-2023 BASO # 0.1 103/ul Normal 0.0-0.1 [facility] Comment on above: Performed By: #### C BC #### [facility] [address] [place] [address] Dr. Raul Pereira Basophils/100 WBC (Bld) 0.6 % Normal 0.2-2.0 [facility] Comment on above: Performed By: #### C BC #### [facility] [address] [place] [address] Dr. Raul Pereira EO # 0.1 103/ul Normal 0.0-0.7 [facility] Comment on above: Performed By: #### C BC #### [facility] [address] [place] [address] Dr. Raul Pereira Eosinophils/100 WBC (Bld) 1.7 % Normal 0.9-7.0 [facility] Comment on above: Performed By: #### C BC #### [facility] [address] [place] [address] Dr. Raul Pereira Erythrocyte distribution width (RBC) [Ratio] 25.9 % Critically high 11.0-15.0 [facility] Comment on above: Result Comment: 2+ a niso Performed By: #### C BC #### [facility] [address] [place] [address] Dr. Raul Pereira Hematocrit (Bld) [Volume fraction] 42.4 % Normal 36.0-48.0 [facility] Comment on above: Performed By: #### C BC #### [facility] [address] [place] [address] Dr. Raul Pereira Hemoglobin (Bld) [Mass/Vol] 13.1 g/dL Normal 12.0-16.0 [facility] Comment on above: Performed By: #### C BC #### [facility] [address] [place] [address] Dr. Raul Pereira IG # 0.02 10e3/ul Normal 0.00-0.03 [facility] Comment on above: Performed By: #### C BC #### [facility] [address] [place] [address] Dr. aRul Pereira IG % 0.2 % Normal 0.0-0.5 [facility] Comment on above: Performed By: #### C BC #### [facility] [address] [place] [address] Dr. Raul Pereira LYMPH # 2.0 103/ul Normal 1.2-3.8 [facility] Comment on above: Performed By: #### C BC #### [facility] [address] [place] [address] Dr. Raul Pereira Lymphocytes/100 WBC (Bld) 24.8 % Normal 20.5-60.0 [facility] Comment on above: Performed By: #### C BC #### [facility] [address] [place] [address] Dr. Raul Pereira MANUAL DIFF REQ NO Normal [facility] Comment on above: Performed By: #### C BC #### [facility] [address] [place] [address] Dr. Raul Pereira MCH (RBC) [Entitic mass] 25.3 pg Critically low 26.7-34.0 [facility] Comment on above: Performed By: #### C BC #### [facility] [address] [place] [address] Dr. Raul Pereira MCHC (RBC) [Mass/Vol] 30.9 g/dL Normal 29.9-35.2 [facility] Comment on above: Performed By: #### C BC #### [facility] [address] [place] [address] Dr. Raul Pereira MCV (RBC) [Entitic vol] 82.0 fL Normal 81.0-99.0 [facility] Comment on above: Performed By: #### C BC #### [facility] [address] [place] [address] Dr. Raul Pereira MONO # 0.7 103/ul Normal 0.3-0.8 [facility] Comment on above: Performed By: #### C BC #### [facility] [address] [place] [address] Dr. Raul Pereira Monocytes/100 WBC (Bld) 8.8 % Normal 1.7-12.0 [facility] Comment on above: Performed By: #### C BC #### [facility] [address] [place] [address] Dr. Raul Pereira NEUT # 5.2 103/ul Normal 1.4-6.5 [facility] Comment on above: Performed By: #### C BC #### [facility] [address] [place] [address] Dr. Raul Pereira Neutrophils/100 WBC (Bld) 63.9 % Normal 43.0-75.0 [facility] Comment on above: Performed By: #### C BC #### [facility] [address] [place] [address] Dr. Raul Pereira Platelet mean volume (Bld) [Entitic vol] 9.2 fL Critically low 9.5-13.5 [facility] Comment on above: Performed By: #### C BC #### [facility] [address] [place] [address] Dr. Raul Pereira PLT 334 103/ul Normal 150-450 [facility] Comment on above: Performed By: #### C BC #### [facility] [address] [place] [address] Dr. Raul Pereira RBC 5.17 106/ul Normal 4.20-5.40 [facility] Comment on above: Performed By: #### C BC #### [facility] [address] [place] [address] Dr. Raul Pereira WBC 8.2 103/ul Normal 4.0-11.0 [facility] Comment on above: Performed By: #### C BC #### [facility] [address] [place] [address] Dr. Raul Pereira SARA - LIPID PROFILEon 2022 CHOL-HDL RATIO NORM SEE BELOW Normal [facility] Comment on above: Result Comment: 3.3 - 4.4 LOW RISK 4.4 - 7.1 AVERAGE RISK 7.1 - 11.0 MODERATE RISK >11.0 HIGH RISK Performed By: #### D ATLIPI ####[facility] [address] [id number][address] Raul Pereira Cholesterol [Mass/Vol] 178 mg/dL Normal <=200 [facility] Comment on above: Performed By: #### D ATLIPI ####[facility] [address] [id number]. Aranzapetr Pereira Cholesterol in HDL [Mass/Vol] 73 mg/dL Critically high 40-60 [facility] Comment on above: Performed By: #### D ATLIPI ####[facility] [address] [id number]. Aranzapetr Pereira Cholesterol in LDL [Mass/Vol] 72.0 mg/dL Normal [facility] Comment on above: Performed By: #### D ATLIPI ####[facility] [address] [address]Dr. Raul Pereira Cholesterol.total/C holesterol in HDL [Mass ratio] 2.4 {ratio} Normal [facility] Comment on above: Performed By: #### D ATLIPI ####[facility] [address] [id number]. Aranzapetr Pereira HDL NORMAL > or = 60 mg/dl - LO W CARDIOVASCULAR RISK <40 mg/dl - HIGH CARDIOVASCULAR RISK Normal [facility] Comment on above: Performed By: #### D ATLIPI ####[facility] [address] [place], [place] [address]Dr. Aranzapetr Pereira LDL CALC NORMAL SEE BELOW Normal [facility] Comment on above: Result Comment: <100 mg/dl OPTIMAL 100 - 129 mg/dl NEAR OR ABOVE OPTIMAL 130 - 159 mg/dl BORDERLINE HIGH 160 - 189 mg/dl HIGH >190 mg/dl VERY HIGH Performed By: #### D ATLIPI ####[facility] [address] [address]Dr. Raul Pereira Triglyceride [Mass/Vol] 165 mg/dL Critically high <=150 [facility] Comment on above: Performed By: #### D ATLIPI ####[facility] [address] [address]Dr. Raul Pereira VLDL CALC 33.0 mg/dL Normal [facility] Comment on above: Performed By: #### D ATLIPI ####[facility] [address] [address]Dr. Raul Pereira DRUG SCREEN RAPID (URINE)on 01-31-2023 AMP Positive Abnormal NEGATIVE [facility] Comment on above: Performed By: #### C BC #### [facility] [address] [address] [address] Raul Pereira BAR Negative Normal NEGATIVE [facility] Comment on above: Performed By: #### C BC #### [facility] [address] [address] [address] Raul Pereira BUP Positive Abnormal NEGATIVE [facility] Comment on above: Performed By: #### C BC #### [facility] [address] [place] [address] Dr. Raul Pereira BZO Negative Normal NEGATIVE [facility] Comment on above: Performed By: #### C BC #### [facility] [address] [address] [address] Raul Pereira RADHA Negative Normal NEGATIVE [facility] Comment on above: Performed By: #### C BC #### [facility] [address] [address] [address] Raul Pereira CUT-OFFS SEE BELOW Normal [facility] Comment on above: Result Comment: AMP [...] Performed By: #### C BC #### [facility] [address] [address] [address] Raul Pereira DRUG CUT HEADER DRUG CLASS TEST SYST EM CUT-OFF CONCENTRATIONS ARE FOLLOWS: Normal [facility] Comment on above: Performed By: #### C BC #### [facility] [address] [place] [address] Dr. Raul Pereira mAMP Negative Normal NEGATIVE [facility] Comment on above: Performed By: #### C BC #### [facility] [address] [place] [address] Dr. Raul Pereira MTD Negative Normal NEGATIVE [facility] Comment on above: Performed By: #### C BC #### [facility] [address] [place] [address] Dr. Raul Pereira OPI Negative Normal NEGATIVE [facility] Comment on above: Performed By: #### C BC #### [facility] [address] [place] [address] Dr. Raul Pereira OXY Negative Normal NEGATIVE [facility] Comment on above: Performed By: #### C BC #### [facility] [address] [place] [address] Dr. Raul Pereira PCP Negative Normal NEGATIVE [facility] Comment on above: Performed By: #### C BC #### [facility] [address] [place] [address] Dr. Raul Pereira PPX Negative Normal NEGATIVE [facility] Comment on above: Performed By: #### C BC #### [facility] [address] [place] [address] Dr. Raul Pereira TCA Positive Abnormal NEGATIVE [facility] Comment on above: Performed By: #### C BC #### [facility] [address] [place] [address] Dr. Raul Pereira THC Negative Normal NEGATIVE [facility] Comment on above: Performed By: #### C BC #### [facility] [address] [place] [address] Dr. Raul Pereira FREE THYROXINE INDEX T7on FTI 2.89 Normal 1.30-4.50 [facility] Comment on above: Performed By: #### C VDTBH #### [facility] [address] [address] [address] Raul Pereira T3U 39.0 % Normal 30.0-39.0 [facility] Comment on above: Performed By: #### C VDTBH #### [facility] [address] [address] [address] Raul Pereira T4 [Mass/Vol] 7.40 ug/dL Normal 4.80-13.90 [facility] Comment on above: Performed By: #### C VDTBH #### [facility] [address] [address] [address] Raul Pereira GLYCOHEMOGLOBIN A1Con 2022 ADA RECOMMENDATION SEE BELOW Normal [facility] Comment on above: Result Comment: ADA RECOMMENDED LIMIT 4.0 - 6.0 ADA THERAPEUTIC TARGET < 7.0 ACTION SUGGESTED > 7.0 Performed By: #### D ATA1C ####[facility] [address] [address]Dr. Raul Pereira Glucose [Mass/Vol] 108 mg/dL Normal [facility] Comment on above: Performed By: #### D ATA1C ####[facility] [address] [address]Dr. Raul Pereira HbA1c (Bld) [Mass fraction] 5.4 % Normal 4.5-6.2 [facility] Comment on above: Performed By: #### D ATA1C ####[facility] [address] [place] [address]Dr. Raul Pereira IRONon 01-31-2023 Iron [Mass/Vol] 225.0 ug/dL Critically high 50.0-170.0 [facility] Comment on above: Performed By: #### C VDTBH #### [facility] [address] [place] [address] [address] Raul Pereira PROF 14(COMP METB)on 023 Albumin [Mass/Vol] 3.8 g/dL Normal 3.4-5.0 [facility] Comment on above: Performed By: #### C VDTBH #### [facility] [address] [place] [address] [address] Raul Pereira Albumin/Globulin [Mass ratio] 1.2 {ratio} Normal [facility] Comment on above: Performed By: #### C VDTBH #### [facility] [address] [place] [address] Dr. Raul Periera ALP [Catalytic activity/Vol] 77 U/L Normal 46-116 [facility] Comment on above: Performed By: #### C VDTBH #### [facility] [address] [place] [address] [address] Raul Pereira ALT [Catalytic activity/Vol] 19 U/L Normal 14-59 [facility] Comment on above: Performed By: #### C VDTBH #### [facility] [address] [place] [address] Dr. Raul Pereira Anion gap [Moles/Vol] 12.9 mmol/L Normal [facility] Comment on above: Performed By: #### C VDTBH #### [facility] [address] [place] [address] Dr. Raul Pereira AST [Catalytic activity/Vol] 17 U/L Normal 15-37 [facility] Comment on above: Performed By: #### C VDTBH #### [facility] [address] [place] [address] Dr. Raul Pereira Bilirubin [Mass/Vol] 0.3 mg/dL Normal 0.2-1.0 [facility] Comment on above: Performed By: #### C VDTBH #### [facility] [address] [place] [address] Dr. Raul Pereira Calcium [Mass/Vol] 8.9 mg/dL Normal 8.5-10.1 [facility] Comment on above: Performed By: #### C VDTBH #### [facility] [address] [place] [address] Dr. Raul Pereira Chloride [Moles/Vol] 101 mmol/L Normal 98-107 [facility] Comment on above: Performed By: #### C VDTBH #### [facility] [address] [place] [address] Dr. Raul Pereira CO2 [Moles/Vol] 28.5 mmol/L Normal 21.0-32.0 [facility] Comment on above: Performed By: #### C VDTBH #### [facility] [address] [place] [address] Dr. Raul Pereira Creatinine [Mass/Vol] 0.59 mg/dL Normal 0.55-1.02 [facility] Comment on above: Performed By: #### C VDTBH #### [facility] [address] [place] [address] [address] Raul Pereira EGFR-AF INDONESIAN >60 Normal >=60 [facility] Comment on above: Performed By: #### C VDTBH #### [facility] [address] [place] [address] Dr. Raul Pereira EGFR-NON AF INDONESIAN >60 Normal >=60 [facility] Comment on above: Performed By: #### C VDTBH #### [facility] [address] [place] [address] Dr. Raul Pereira Globulin (S) [Mass/Vol] 3.1 g/dL Normal [facility] Comment on above: Performed By: #### C VDTBH #### [facility] [address] [place] [address] Dr. Raul Pereira Glucose [Mass/Vol] 84 mg/dL Normal 74-106 [facility] Comment on above: Performed By: #### C VDTBH #### [facility] [address] [place] [address] Dr. Raul Pereira Potassium [Moles/Vol] 4.4 mmol/L Normal 3.5-5.1 [facility] Comment on above: Performed By: #### C VDTBH #### [facility] [address] [place] [address] Dr. Raul Pereira Protein [Mass/Vol] 6.9 g/dL Normal 6.4-8.2 [facility] Comment on above: Performed By: #### C VDTBH #### [facility] [address] [place] [address] Dr. Raul Pereira Sodium [Moles/Vol] 138 mmol/L Normal 136-145 [facility] Comment on above: Performed By: #### C VDTBH #### [facility] [address] [place] [address] Dr. Raul Pereira Urea nitrogen [Mass/Vol] 11.0 mg/dL Normal 7.0-18.0 [facility] Comment on above: Performed By: #### C VDTBH #### [facility] [address] [place] [address] Dr. Raul Pereira Urea nitrogen/Creatinine [Mass ratio] 18.6 mg/mg Normal [facility] Comment on above: Performed By: #### C VDTBH #### [facility] [address] [place] [address] Dr. Raul Pereira TSHon 01-31-2023 TSH 2.354 uIU/mL Normal 0.358-3.740 [facility] Comment on above: Performed By: #### C VDTBH #### [facility] [address] [place] [address] Dr. Raul Pereira UA RANDOM W/MICROSCOPICon BACTERIA NONE SEEN Normal NONE SEEN [facility] Comment on above: Performed By: #### C BC #### [facility] [address] [place] [address] Dr. Raul Pereira Bilirubin Ql (U) Negative Normal NEGATIVE [facility] Comment on above: Performed By: #### C BC #### [facility] [address] [place] [address] Dr. Raul Pereira CAST NONE SEEN Normal NONE SEEN [facility] Comment on above: Performed By: #### C BC #### [facility] [address] [place] [address] Dr. Raul Pereira Clarity (U) CLEAR Normal CLEAR [facility] Comment on above: Performed By: #### C BC #### [facility] [address] [place] [address] Dr. Raul Pereira Color (U) YELLOW Normal YELLOW [facility] Comment on above: Performed By: #### C BC #### [facility] [address] [place] [address] Dr. Raul Pereira Crystals LM Nom (Urine sed) NONE SEEN Normal NONE SEEN [facility] Comment on above: Performed By: #### C BC #### [facility] [address] [place] [address] Dr. Raul Pereira Epithelial cells LM Ql (Urine sed) NONE SEEN Normal NONE SEEN /RARE [facility] Comment on above: Performed By: #### C BC #### [facility] [address] [place] [address] Dr. Raul Pereira Glucose Ql (U) Negative Normal NEGATIVE [facility] Comment on above: Performed By: #### C BC #### [facility] [address] [place] [address] Dr. Raul Pereira Hemoglobin Ql (U) Negative Normal NEGATIVE [facility] Comment on above: Performed By: #### C BC #### [facility] [address] [place] [address] Dr. Raul Pereira Ketones Ql (U) Negative Normal NEGATIVE [facility] Comment on above: Performed By: #### C BC #### [facility] [address] [place] [address] Dr. Raul Pereira LEUKOCYTES Negative Normal NEGATIVE [facility] Comment on above: Performed By: #### C BC #### [facility] [address] [place] [address] Dr. Raul Pereira MUCOUS NONE SEEN Normal NONE SEEN [facility] Comment on above: Performed By: #### C BC #### [facility] [address] [place] [address] Dr. Raul Pereira Nitrite Ql (U) Negative Normal NEGATIVE [facility] Comment on above: Performed By: #### C BC #### [facility] [address] [place] [address] Dr. Raul Pereira pH (U) 5.5 [pH] Normal 5-9 [facility] Comment on above: Performed By: #### C BC #### [facility] [address] [place] [address] Dr. Raul Pereira RBC NONE SEEN Abnormal 0-2 [facility] Comment on above: Performed By: #### C BC #### [facility] [address] [place] [address] Dr. Raul Pereira SPEC GRAVITY 1.030 Abnormal 1.005-<=1.02 5 [facility] Comment on above: Performed By: #### C BC #### [facility] [address] [place] [address] Dr. Raul Pereira UA PROTEIN Negative Normal NEGATIVE/ TRACE [facility] Comment on above: Performed By: #### C BC #### [facility] [address] [place] [address] Dr. Raul Pereira Urobilinogen Qn (U) 0.2 {Farrukh'U}/dL Normal 0.2 - 1. 0 [facility] Comment on above: Performed By: #### C BC #### [facility] [address] [place] [address] Dr. Raul Pereira WBC NONE SEEN Normal NONE SEEN [facility] Comment on above: Performed By: #### C BC #### [facility] [address] [place] [address] Dr. Raul Pereira VITAMIN D 25 OHon 01-31-2023 VIT D 25-OH 40.8 ng/mL Normal [facility] Comment on above: Performed By: #### C VDTBH #### [facility] [address] [place] [address] Dr. Raul Pereira VIT D RANGES SEE BELOW Normal [facility] Comment on above: Result Comment: <20 ng/mL Vit D deficient 20 - <30 ng/mL Vit D insufficient 30 - 100 ng/mL Vit D sufficient >100 ng/mL Potential Toxicity Performed By: #### C VDTBH #### [facility] [address] [place] [address] Dr. Raul Pereira VC VENOUS REFLUX ALEXUS LMTon 0 01-30-2023 VC VENOUS REFLUX ALEXUS LMT Patient: RHETT MEJIA Exam Date: 01/30/2023 : 1960 Gender:F Ordering : DR NAPOLEON RAHMAN . Admission #: [id number] Family : Order #: [id number] CLICK HERE TO VIEW EXAM RADIOLOGY REPORT [...] thrombus. Compressibility: Normal. Flow: Deep venous reflux. News Cameraman:Mid/medial lower leg 4.3 mm with 0.8s reflux. [...] great saphenous vein along with dilated, incompetent optical engineering manager veins and numerous branch saphenous varicosities. 2. 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 Proximal closer with endovenous laser ablation may be beneficial followed by treatment with microfoam chemical ablation. Incompetent lower leg optical engineering manager vein which may contribute to patient's reflux; laser ablation is recommended. Dilated, incompetent branch saphenous varicosities which would benefit from microfoam chemical ablation. 3. Consultation for endovenous ablation is recommended. Dictated by: Jessica Lipscomb M.D. on 01/31/2023 at 09:46 Approved by: Jessica Lipscomb M.D. on 01/31/2023 at 09:51 Normal [facility] CBC AUTO DIFFon 01-13-2023 BASO # 0.0 103/ul Normal 0.0-0.1 [facility] Comment on above: Performed By: #### C BC #### [facility] [address] [place] [address] [address] Raul Pereira Basophils/100 WBC (Bld) 0.5 % Normal 0.2-2.0 [facility] Comment on above: Performed By: #### C BC #### [facility] [address] [place] [address] [address] Raul Pereira EO # 0.1 103/ul Normal 0.0-0.7 [facility] Comment on above: Performed By: #### C BC #### [facility] [address] [place] [address] Dr. Raul Pereira Eosinophils/100 WBC (Bld) 1.7 % Normal 0.9-7.0 [facility] Comment on above: Performed By: #### C BC #### [facility] [address] [place] [address] Dr. Raul Pereira Erythrocyte distribution width (RBC) [Ratio] 18.4 % Critically high 11.0-15.0 [facility] Comment on above: Performed By: #### C BC #### [facility] [address] [place] [address] Dr. Raul Pereira Hematocrit (Bld) [Volume fraction] 33.1 % Critically low 36.0-48.0 [facility] Comment on above: Performed By: #### C BC #### [facility] [address] [place] [address] Dr. Raul Peerira Hemoglobin (Bld) [Mass/Vol] 10.4 g/dL Critically low 12.0-16.0 [facility] Comment on above: Performed By: #### C BC #### [facility] [address] [place] [address] Dr. Raul Pereira IG # 0.03 10e3/ul Normal 0.00-0.03 [facility] Comment on above: Performed By: #### C BC #### [facility] [address] [place] [address] Dr. Raul Pereira IG % 0.4 % Normal 0.0-0.5 [facility] Comment on above: Performed By: #### C BC #### [facility] [address] [place] [address] Dr. Raul Pereira LYMPH # 1.9 103/ul Normal 1.2-3.8 [facility] Comment on above: Performed By: #### C BC #### [facility] [address] [place] [address] Dr. Raul Pereira Lymphocytes/100 WBC (Bld) 25.2 % Normal 20.5-60.0 [facility] Comment on above: Performed By: #### C BC #### [facility] [address] [place] [address] Dr. Raul Pereira MANUAL DIFF REQ NO Normal [facility] Comment on above: Performed By: #### C BC #### [facility] [address] [place] [address] Dr. Raul Pereira MCH (RBC) [Entitic mass] 24.1 pg Critically low 26.7-34.0 [facility] Comment on above: Performed By: #### C BC #### [facility] [address] [place] [address] Dr. Raul Pereira MCHC (RBC) [Mass/Vol] 31.4 g/dL Normal 29.9-35.2 [facility] Comment on above: Performed By: #### C BC #### [facility] [address] [place] [address] Dr. Raul Pereira MCV (RBC) [Entitic vol] 76.6 fL Critically low 81.0-99.0 [facility] Comment on above: Performed By: #### C BC #### [facility] [address] [place] [address] Dr. Raul Pereira MONO # 0.8 103/ul Normal 0.3-0.8 [facility] Comment on above: Performed By: #### C BC #### [facility] [address] [place] [address] Dr. Raul Pereira Monocytes/100 WBC (Bld) 10.7 % Normal 1.7-12.0 [facility] Comment on above: Performed By: #### C BC #### [facility] [address] [place] [address] Dr. Raul Pereira NEUT # 4.7 103/ul Normal 1.4-6.5 [facility] Comment on above: Performed By: #### C BC #### [facility] [address] [place] [address] Dr. Raul Pereira Neutrophils/100 WBC (Bld) 61.5 % Normal 43.0-75.0 [facility] Comment on above: Performed By: #### C BC #### [facility] [address] [place], [place] [address] Dr. Raul Pereira Platelet mean volume (Bld) [Entitic vol] 8.6 fL Critically low 9.5-13.5 [facility] Comment on above: Performed By: #### C BC #### [facility] [address] [place] [address] [address] Raul Pereira PLT 461 103/ul Critically high 150-450 [facility] Comment on above: Performed By: #### C BC #### [facility] [address] [place] [address] [address] Raul Pereira RBC 4.32 106/ul Normal 4.20-5.40 [facility] Comment on above: Performed By: #### C BC #### [facility] [address] [place] [address] [address] Raul Pereira WBC 7.6 103/ul Normal 4.0-11.0 [facility] Comment on above: Performed By: #### C BC #### [facility] [address] [place], [place] [address] Dr. Raul Pereira FREE THYROXINE INDEX T7on FTI 2.10 Normal 1.30-4.50 [facility] Comment on above: Performed By: #### T 7, CMP, TSH, LIPID ####[facility] [address] [place], [place] [address]MoDr. Raul Pereira T3U 35.0 % Normal 30.0-39.0 [facility] Comment on above: Performed By: #### T 7, CMP, TSH, LIPID ####[facility] [address] [place], [place] [address]FpDr. Raul Pereira T4 [Mass/Vol] 6.00 ug/dL Normal 4.80-13.90 [facility] Comment on above: Performed By: #### T 7, CMP, TSH, LIPID ####[facility] [address] [place], [place] [address]NkDr. Raul Pereira GLYCOHEMOGLOBIN A1Con 2022 ADA RECOMMENDATION SEE BELOW Normal [facility] Comment on above: Result Comment: ADA RECOMMENDED LIMIT 4.0 - 6.0 ADA THERAPEUTIC TARGET < 7.0 ACTION SUGGESTED > 7.0 Performed By: #### C VDTBH #### [facility] [address] [place] [address] [address] Raul Pereira Glucose [Mass/Vol] 108 mg/dL Normal [facility] Comment on above: Performed By: #### C VDTBH #### [facility] [address] [place] [address] [address] Raul Pereira HbA1c (Bld) [Mass fraction] 5.4 % Normal 4.5-6.2 [facility] Comment on above: Performed By: #### C VDTBH #### [facility] [address] [place] [address] [address] Raul Pereira IRON AND TIBCon 01-13-2023 % SATURATION 3.5 % Normal [facility] Comment on above: Performed By: #### F ETIBC, B12FOL, VITAD ####[facility] [address] [place] [id number]. Raul Pereira Iron [Mass/Vol] 18.0 ug/dL Critically low 50.0-170.[address] [facility] Comment on above: Performed By: #### F ETIBC, B12FOL, VITAD ####[facility] [address] [place] [id number] Pereira TIBC DIRECT 513.0 ug/dL Critically high 250.0-450.0 [facility] Comment on above: Performed By: #### F ETIBC, B12FOL, VITAD ####[facility] [address] [place] [id number] Pereira LIPID PROFILEon 01-13-2023 CHOL-HDL RATIO NORM SEE BELOW Normal [facility] Comment on above: Result Comment: 3.3 - 4.4 LOW RISK 4.4 - 7.1 AVERAGE RISK 7.1 - 11.0 MODERATE RISK >11.0 HIGH RISK Performed By: #### T 7, CMP, TSH, LIPID ####[facility] [address] [place] [id number]. Raul Pereira Cholesterol [Mass/Vol] 190 mg/dL Normal <=200 [facility] Comment on above: Performed By: #### T 7, CMP, TSH, LIPID ####[facility] [address] [place], [place] [address]Va. Raul Pereira Cholesterol in HDL [Mass/Vol] 71 mg/dL Critically high 40-60 [facility] Comment on above: Performed By: #### T 7, CMP, TSH, LIPID ####[facility] [address] [place] [id number]. Raul Pereira Cholesterol in LDL [Mass/Vol] 104.6 mg/dL Normal [facility] Comment on above: Performed By: #### T 7, CMP, TSH, LIPID ####[facility] [address] [place] [id number]. Raul Pereira Cholesterol.total/C holesterol in HDL [Mass ratio] 2.7 {ratio} Normal [facility] Comment on above: Performed By: #### T 7, CMP, TSH, LIPID ####[facility] [address] [place] [id number]. Raul Pereira HDL NORMAL > or = 60 mg/dl - LO W CARDIOVASCULAR RISK <40 mg/dl - HIGH CARDIOVASCULAR RISK Normal [facility] Comment on above: Performed By: #### T 7, CMP, TSH, LIPID ####[facility] [address] [place] [id number]. Raul Pereira LDL CALC NORMAL SEE BELOW Normal [facility] Comment on above: Result Comment: <100 mg/dl OPTIMAL 100 - 129 mg/dl NEAR OR ABOVE OPTIMAL 130 - 159 mg/dl BORDERLINE HIGH 160 - 189 mg/dl HIGH >190 mg/dl VERY HIGH Performed By: #### T 7, CMP, TSH, LIPID ####[facility] [address] [place] [id number]. Raul Pereira Triglyceride [Mass/Vol] 72 mg/dL Normal <=150 [facility] Comment on above: Performed By: #### T 7, CMP, TSH, LIPID ####[facility] [address] [place] [id number]. Raul Pereira VLDL CALC 14.4 mg/dL Normal [facility] Comment on above: Performed By: #### T 7, CMP, TSH, LIPID ####[facility] [address] [place] [address]Dr. Raul Pereira PROF 14(COMP METB)on 023 Albumin [Mass/Vol] 3.5 g/dL Normal 3.4-5.0 [facility] Comment on above: Performed By: #### T 7, CMP, TSH, LIPID ####[facility] [address] [place] [address]Dr. Raul Pereira Albumin/Globulin [Mass ratio] 1.1 {ratio} Normal [facility] Comment on above: Performed By: #### T 7, CMP, TSH, LIPID ####[facility] [address] [place] [address]Dr. Raul Pereira ALP [Catalytic activity/Vol] 92 U/L Normal 46-116 [facility] Comment on above: Performed By: #### T 7, CMP, TSH, LIPID ####[facility] [address] [place] [address]Dr. Raul Pereira ALT [Catalytic activity/Vol] 17 U/L Normal 14-59 [facility] Comment on above: Performed By: #### T 7, CMP, TSH, LIPID ####[facility] [address] [place] [address]Dr. Raul Pereira Anion gap [Moles/Vol] 10.0 mmol/L Normal [facility] Comment on above: Performed By: #### T 7, CMP, TSH, LIPID ####[facility] [address] [place] [address]Dr. Raul Pereira AST [Catalytic activity/Vol] 17 U/L Normal 15-37 [facility] Comment on above: Performed By: #### T 7, CMP, TSH, LIPID ####[facility] [address] [place] [address]Dr. Raul Pereira Bilirubin [Mass/Vol] 0.2 mg/dL Normal 0.2-1.0 [facility] Comment on above: Performed By: #### T 7, CMP, TSH, LIPID ####[facility] [address] [place], [place] [address]Dr. Raul Pereira Calcium [Mass/Vol] 8.8 mg/dL Normal 8.5-10.1 [facility] Comment on above: Performed By: #### T 7, CMP, TSH, LIPID ####[facility] [address] [place], [place] [address]Dr. Raul Pereira Chloride [Moles/Vol] 101 mmol/L Normal 98-107 [facility] Comment on above: Performed By: #### T 7, CMP, TSH, LIPID ####[facility] [address] [place], [place] [address]Dr. Raul Pereira CO2 [Moles/Vol] 29.4 mmol/L Normal 21.0-32.0 [facility] Comment on above: Performed By: #### T 7, CMP, TSH, LIPID ####[facility] [address] [place], [place] [address]Dr. Raul Pereira Creatinine [Mass/Vol] 0.50 mg/dL Critically low 0.55-1.02 [facility] Comment on above: Performed By: #### T 7, CMP, TSH, LIPID ####[facility] [address] [place], [place] [address]Dr. Raul Pereira EGFR-AF INDONESIAN >60 Normal >=60 [facility] Comment on above: Performed By: #### T 7, CMP, TSH, LIPID ####[facility] [address] [place], [place] [address]Dr. Raul Pereira EGFR-NON AF INDONESIAN >60 Normal >=60 [facility] Comment on above: Performed By: #### T 7, CMP, TSH, LIPID ####[facility] [address] [place], [place] [address]Dr. Raul Pereira Globulin (S) [Mass/Vol] 3.2 g/dL Normal [facility] Comment on above: Performed By: #### T 7, CMP, TSH, LIPID ####[facility] [address] [place] [id number]. Raul Pereira Glucose [Mass/Vol] 88 mg/dL Normal 74-106 [facility] Comment on above: Performed By: #### T 7, CMP, TSH, LIPID ####[facility] [address] [place] [address]Dr. Raul Pereira Potassium [Moles/Vol] 4.4 mmol/L Normal 3.5-5.1 [facility] Comment on above: Performed By: #### T 7, CMP, TSH, LIPID ####[facility] [address] [place] [address]Dr. Raul Pereira Protein [Mass/Vol] 6.7 g/dL Normal 6.4-8.2 [facility] Comment on above: Performed By: #### T 7, CMP, TSH, LIPID ####[facility] [facility] [id number] [place] [address]Dr. Raul Pereira Sodium [Moles/Vol] 136 mmol/L Normal 136-145 [facility] Comment on above: Performed By: #### T 7, CMP, TSH, LIPID ####[facility] [address] [place] [address]Dr. Raul Pereira Urea nitrogen [Mass/Vol] 12.0 mg/dL Normal 7.0-18.0 [facility] Comment on above: Performed By: #### T 7, CMP, TSH, LIPID ####[facility] [address] [place] [address]Dr. Raul Pereira Urea nitrogen/Creatinine [Mass ratio] 24.0 mg/mg Normal [facility] Comment on above: Performed By: #### T 7, CMP, TSH, LIPID ####[facility] [address] [place] [address]Dr. Raul Pereira TSHon 01-13-2023 TSH 1.623 uIU/mL Normal 0.358-3.740 [facility] Comment on above: Performed By: #### T 7, CMP, TSH, LIPID ####[facility] [address] [place] [address]Dr. Raul Pereira VIT B12 AND FOLATEon 023 Cobalamin (Vitamin B12) [Mass/Vol] 872.0 pg/mL Normal 193.0-986.0 [facility] Comment on above: Performed By: #### F ETIBC, B12FOL, VITAD ####[facility] [address] [place] [address]Dr. Raul Pereira FOLATE 21.20 ng/mL Normal 8.60-58.90 [facility] Comment on above: Performed By: #### F ETIBC, B12FOL, VITAD ####[facility] [address] [place] [address]Dr. Raul Pereira VITAMIN D 25 OHon 01-13-2023 VIT D 25-OH 40.6 ng/mL Normal [facility] Comment on above: Performed By: #### F ETIBC, B12FOL, VITAD ####[facility] [address] [place], [place] [address]Dr. Raul Pereira VIT D RANGES SEE BELOW Normal [facility] Comment on above: Result Comment: <20 ng/mL Vit D deficient 20 - <30 ng/mL Vit D insufficient 30 - 100 ng/mL Vit D sufficient >100 ng/mL Potential Toxicity Performed By: #### F ETIBC, B12FOL, VITAD ####[facility] [address] [place] [address]Dr. Raul Pereira CBC AUTO DIFFon 01-10-2023 BASO # 0.1 103/ul Normal 0.0-0.1 [facility] Comment on above: Performed By: #### C VDTBH #### [facility] [address] [address] [address] Raul Pereira Basophils/100 WBC (Bld) 0.6 % Normal 0.2-2.0 [facility] Comment on above: Performed By: #### C VDTBH #### [facility] [address] [place] [address] Dr. Raul Pereira EO # 0.1 103/ul Normal 0.0-0.7 [facility] Comment on above: Performed By: #### C VDTBH #### [facility] [address] [place] [address] Dr. Raul Pereira Eosinophils/100 WBC (Bld) 1.3 % Normal 0.9-7.0 [facility] Comment on above: Performed By: #### C VDTBH #### [facility] [address] [place] [address] Dr. Raul Pereira Erythrocyte distribution width (RBC) [Ratio] 18.4 % Critically high 11.0-15.0 [facility] Comment on above: Performed By: #### C VDTBH #### [facility] [address] [place] [address] Dr. Raul Pereira Hematocrit (Bld) [Volume fraction] 37.8 % Normal 36.0-48.0 [facility] Comment on above: Performed By: #### C VDTBH #### [facility] [address] [place] [address] Dr. Raul Pereira Hemoglobin (Bld) [Mass/Vol] 11.6 g/dL Critically low 12.0-16.0 [facility] Comment on above: Performed By: #### C VDTBH #### [facility] [address] [place] [address] Dr. Raul Pereira IG # 0.02 10e3/ul Normal 0.00-0.03 [facility] Comment on above: Performed By: #### C VDTBH #### [facility] [address] [place] [address] Dr. Raul Pereira IG % 0.3 % Normal 0.0-0.5 [facility] Comment on above: Performed By: #### C VDTBH #### [facility] [address] [place] [address] Dr. Raul Pereira LYMPH # 1.7 103/ul Normal 1.2-3.8 [facility] Comment on above: Performed By: #### C VDTBH #### [facility] [address] [place] [address] Dr. Raul Pereira Lymphocytes/100 WBC (Bld) 21.0 % Normal 20.5-60.0 [facility] Comment on above: Performed By: #### C VDTBH #### [facility] [address] [place] [address] Dr. Raul Pereira MANUAL DIFF REQ NO Normal [facility] Comment on above: Performed By: #### C VDTBH #### [facility] [address] [place] [address] Dr. Raul Pereira MCH (RBC) [Entitic mass] 24.1 pg Critically low 26.7-34.0 [facility] Comment on above: Performed By: #### C VDTBH #### [facility] [address] [place] [address] Dr. Raul Pereira MCHC (RBC) [Mass/Vol] 30.7 g/dL Normal 29.9-35.2 [facility] Comment on above: Performed By: #### C VDTBH #### [facility] [address] [place] [address] Dr. Raul Pereira MCV (RBC) [Entitic vol] 78.6 fL Critically low 81.0-99.0 [facility] Comment on above: Performed By: #### C VDTBH #### [facility] [address] [place] [address] Dr. Raul Pereira MONO # 0.6 103/ul Normal 0.3-0.8 [facility] Comment on above: Performed By: #### C VDTBH #### [facility] [address] [place] [address] Dr. Raul Pereira Monocytes/100 WBC (Bld) 7.5 % Normal 1.7-12.0 [facility] Comment on above: Performed By: #### C VDTBH #### [facility] [address] [place] [address] Dr. Raul Pereira NEUT # 5.4 103/ul Normal 1.4-6.5 [facility] Comment on above: Performed By: #### C VDTBH #### [facility] [address] [place] [address] Dr. Raul Pereira Neutrophils/100 WBC (Bld) 69.3 % Normal 43.0-75.0 [facility] Comment on above: Performed By: #### C VDTBH #### [facility] [address] [address] [address] Raul Pereira Platelet mean volume (Bld) [Entitic vol] 9.0 fL Critically low 9.5-13.5 [facility] Comment on above: Performed By: #### C VDTBH #### [facility] [address] [address] [address] Raul Pereira PLT 516 103/ul Critically high 150-450 [facility] Comment on above: Performed By: #### C VDTBH #### [facility] [address] [place] [address] Dr. Raul Pereira RBC 4.81 106/ul Normal 4.20-5.40 [facility] Comment on above: Performed By: #### C VDTBH #### [facility] [address] [place] [address] Dr. Raul Pereira WBC 7.8 103/ul Normal 4.0-11.0 [facility] Comment on above: Performed By: #### C VDTBH #### [facility] [address] [place] [address] Dr. Raul Pereira CULTURE BLOODon 01-10-2023 Microscopic examination of blood, culture Culture Observations: NO GROWTH AT 5 DAYS. Normal [facility] Comment on above: Performed By: #### B [id number] #### [facility] [address] [place] [address] Dr. Raul Pereira Microscopic examination of blood, culture Culture Observations: NO GROWTH AT 5 DAYS. Normal [facility] Comment on above: Performed By: #### B LDCX1 ####[facility] [address] [place] [address]Dr. Raul Pereira PROF 14(COMP METB)on 023 Albumin [Mass/Vol] 3.7 g/dL Normal 3.4-5.0 [facility] Comment on above: Performed By: #### C BC #### [facility] [address] [place] [address] Dr. Raul Pereira Albumin/Globulin [Mass ratio] 0.9 {ratio} Normal [facility] Comment on above: Performed By: #### C BC #### [facility] [address] [place] [address] Dr. Raul Pereira ALP [Catalytic activity/Vol] 105 U/L Normal 46-116 [facility] Comment on above: Performed By: #### C BC #### [facility] [address] [place] [address] Dr. Raul Pereira ALT [Catalytic activity/Vol] 18 U/L Normal 14-59 [facility] Comment on above: Performed By: #### C BC #### [facility] [address] [place] [address] Dr. Raul Pereira Anion gap [Moles/Vol] 10.8 mmol/L Normal [facility] Comment on above: Performed By: #### C BC #### [facility] [address] [place] [address] Dr. Raul Pereira AST [Catalytic activity/Vol] 21 U/L Normal 15-37 [facility] Comment on above: Performed By: #### C BC #### [facility] [address] [place] [address] Dr. Raul Pereira Bilirubin [Mass/Vol] 0.3 mg/dL Normal 0.2-1.0 [facility] Comment on above: Performed By: #### C BC #### [facility] [address] [place] [address] Dr. Raul Pereira Calcium [Mass/Vol] 9.1 mg/dL Normal 8.5-10.1 [facility] Comment on above: Performed By: #### C BC #### [facility] [address] [place] [address] Dr. Raul Pereira Chloride [Moles/Vol] 100 mmol/L Normal 98-107 [facility] Comment on above: Performed By: #### C BC #### [facility] [address] [place] [address] Dr. Raul Pereira CO2 [Moles/Vol] 30.8 mmol/L Normal 21.0-32.0 [facility] Comment on above: Performed By: #### C BC #### [facility] [address] [place] [address] Dr. Raul Pereira Creatinine [Mass/Vol] 0.58 mg/dL Normal 0.55-1.02 [facility] Comment on above: Performed By: #### C BC #### [facility] [address] [place] [address] Dr. Raul Pereira EGFR-AF INDONESIAN >60 Normal >=60 [facility] Comment on above: Performed By: #### C BC #### [facility] [address] [place] [address] Dr. Raul Pereira EGFR-NON AF INDONESIAN >60 Normal >=60 [facility] Comment on above: Performed By: #### C BC #### [facility] [address] [place] [address] Dr. Raul Pereira Globulin (S) [Mass/Vol] 4.1 g/dL Normal [facility] Comment on above: Performed By: #### C BC #### [facility] [address] [place] [address] Dr. Raul Pereira Glucose [Mass/Vol] 86 mg/dL Normal 74-106 [facility] Comment on above: Performed By: #### C BC #### [facility] [address] [place] [address] Dr. Raul Pereira Potassium [Moles/Vol] 4.6 mmol/L Normal 3.5-5.1 [facility] Comment on above: Performed By: #### C BC #### [facility] [address] [place] [address] Dr. Raul Pereira Protein [Mass/Vol] 7.8 g/dL Normal 6.4-8.2 [facility] Comment on above: Performed By: #### C BC #### [facility] [address] [place] [address] Dr. Raul Pereira Sodium [Moles/Vol] 137 mmol/L Normal 136-145 [facility] Comment on above: Performed By: #### C BC #### [facility] [address] [place], [place] [address] Dr. Raul Pereira Urea nitrogen [Mass/Vol] 9.0 mg/dL Normal 7.0-18.0 [facility] Comment on above: Performed By: #### C BC #### [facility] [address] [place], [place] [address] Dr. Raul Pereira Urea nitrogen/Creatinine [Mass ratio] 15.5 mg/mg Normal [facility] Comment on above: Performed By: #### C BC #### [facility] [address] [place], [place] [address] Dr. Raul Pereira US PREMA DOP LEG [...] LIPSCOMB Date: 2023-01-10 10:43 Normal [facility] Covid-19 PCR (CVDTB)on 11-18 SARS-CoV-2 (COVID-19) RNA IMELDA+probe Ql (Unsp spec) Not detected Normal NOT DETECTED [facility] Comment on above: Result Comment: This test is not yet approved or cleared by the [place] FDA. When there are no FDA-approved or cleared tests available, and other criteria are met, FDA can make tests available under an emergency access mechanism called an Emergency Use Authorization (EUA). The EUA for this test is supported by the [place] of [employer] and Human Service's (HHS's) declaration [...] Performed By: #### C VDTBH #### [facility] [address] [place] [address] Dr. Raul Pereira CALCIUMon 12-03-2022 Calcium [Mass/Vol] 9.7 mg/dL Normal 8.5-10.1 [facility] Comment on above: Performed By: #### C VDTBH #### [facility] [address] [place] [address] Dr. Raul Pereira CREATININEon 12-03-2022 Creatinine [Mass/Vol] 0.53 mg/dL Critically low 0.55-1.02 [facility] Comment on above: Performed By: #### C BC #### [facility] [address] [place] [address] Dr. Raul Pereira EGFR-AF INDONESIAN >60 Normal >=60 [facility] Comment on above: Performed By: #### C BC #### [facility] [address] [place] [address] Dr. Raul Pereira EGFR-NON AF INDONESIAN >60 Normal >=60 [facility] Comment on above: Performed By: #### C BC #### [facility] [address] [place] [address] Dr. Raul Pereira Office Visiton 08-27-2022 Follow-up visit [id number] Lex Mejia L 1960 F Date Provider Department Center 08/27/2022 Nella-MICAELA GUPTA [facility] SURG Second Fl No family history on file Level of Service:22729 AR POSTOP FOLLOW UP VISIT RELATED TO ORIGINAL PX Reason for Visit and Comments: Post-op [483] - Rhett is here today for a post op visit, s/p 08/16/22 LAP ZEESHAN Normal [facility] HISTOLOGY - TISSUE EXAMon LAB AP CASE REPORT Normal [facility] Comment on above: Order Comment: Pre-o p diagnosis:Calculus of gallbladder without cholecystitis without obstruction [K80.20] Result Comment: Surg ical Pathology Case: [id number] Authorizing Provider: Micaela Gupta MD Collected: 08/16/2022 0842 Ordering Location: [facility] Main Operating Room Received: 08/16/2022 1001 Pathologist: Maricruz Warren MD Specimen: Gallbladder, GALLBLADDER Performed By: #### L [id number] ####[facility] (BEAKER)[address] [place] [address] LAB AP CLINICAL INFORMATION Normal [facility] Comment on above: Order Comment: Pre-o p diagnosis:Calculus of gallbladder without cholecystitis without obstruction [K80.20] Result Comment: Pre- op diagnosis: Calculus of gallbladder without cholecystitis without obstruction [K80.20] Performed By: #### L [id number] ####[facility] (BEAKER)[address] [facility] [address] LAB AP GROSS DESCRIPTION A. Gallbladder. Normal [facility] Comment on above: Order Comment: Pre-o [...] 0.1 to 0.2 cm in maximum thickness. Greens Laborer sections submitted as follows: Cassette 1: Cystic duct resection margin and neck Cassette 2: Body and fundus Ankit Koroma, Pathologists' Director Of Education Performed By: #### L [id number] ####[facility] (BEAKER)[address] [facility] [address] LAB AP MICROSCOPIC DESCRIPTION Microscopic examination performed Normal [facility] Comment on above: Order Comment: Pre-o p diagnosis:Calculus of gallbladder without cholecystitis without obstruction [K80.20] Performed By: #### L [id number] ####[facility] ([facility])[address] [place] [address] LAB AP REPORT FINAL DIAGNOSIS NARRATIVE [facility] Comment on above: Order Comment: Pre-o p diagnosis:Calculus of gallbladder without cholecystitis without obstruction [K80.20] Result Comment: Gall bladder, cholecystectomy: - Cholelithiasis and cholesterolosis. Performed By: #### L [id number] ####[facility] ([facility])[address] [place] [address] HPon 08-16-2022 HP ----- ----- Attestation signed by Micaela Gupta MD at 08/16/2022 7:34 AM Attending Physician Statement I have discussed the case, including pertinent history and exam findings with Dr. Del Angel, resident buyer and have personally seen the patient. I agree with the assessment, plan and orders as documented. [phone] pager [phone] phone ----- [facility] General Surgery HISTORY & PHYSICAL Chief Complaint: [...] History: Diagnosis Date Anxiety Arthritis Chronic bronchitis ([facility]/HCC) Depression DVT (deep venous thrombosis) ([facility]) Gall bladder disease GERD (gastroesophageal reflux [...] Component Value (more content not included)... Normal [facility] NURSNOTEon 08-16-2022 NURSNOTE Stable. Pain minimal . DC criteria met. IV dc'd and patient getting dressed. 1155 Stable for discharge. Normal [facility] NURSNOTE DC instructions revi ewed with patient and Granddaughter, allowed time for questions, copy given. Normal [facility] NURSNOTE Report rec'd and car e assumed. No assessment changes. Pain minimal. Normal [facility] NURSNOTE 0920 Recovery called. [facility]22 OPNOTE CHOLECYSTECTOMY, LAPAROSCOPIC Operative Note Date: 08/16/2022 Location: [facility] OR Name: Rhett Mejia, : 1960, Diagnosis Pre-op Diagnosis * Calculus of gallbladder without cholecystitis without obstruction [K80.20] * History of gastric bypass [Z98.84] Post-op Diagnosis * Calculus of gallbladder without cholecystitis without obstruction [K80.20] * History of gastric bypass [Z98.84] Procedures CHOLECYSTECTOMY, LAPAROSCOPIC 47127 - [place] LAPS SURG CHOLECYSTECTOMY W/CHOLANGIOGRAPHY Surgeons * Micaela Gupta - Primary * Robyn Del Angel Procedure Summary Anesthesia: General ASA: III Estimated Blood Loss: 10 mL Total IV Fluids: 1000 mL Drains: * None in log * Specimens ID Source Type Tests Collected By Collected At Frozen? Priority Lab ID A Gallbladder Tissue HISTOLOGY - TISSUE EXAM Micaela Gupta MD 08/16/22 0842 No [id number] Description: GALLBLADDER Staff: Sinker Winder: Zeny De La Cruz RN Scrub Person: [...] PACU - hemodynamically stable. Condition: stable Normal [facility] POCT GLUCOSE METER UNSOLICIT ED RESULTSon 08-16-2022 Glucose [Mass/Vol] 88 mg/dL Normal 70-105 [facility] Comment on above: Result Comment: epaw low Performed By: #### L [id number] #### [facility] LAB (BEAKER) [address] [place] [address] POCT SARS-COV-2 PCRon 2021 POC SARS-COV-2 ANTIGEN Negative Normal Negative [facility] Comment on above: Result Comment: ID Oswald OW COVID-19 assay performed on the ID [...] Certificate of Accreditation. Performed By: #### L [id number] ####[facility] (AKER)[address] [place] [address] Orders Onlyon 08-14-2022 Orders Only [id number] Lex Mejia L 1960 F Date Provider Department Center 08/14/2022 [id number], HISTORICAL [facility] PAT RI Medical C No family history on file Normal [facility] [id number] 08-13-2022 [id number] NPO after [place] Must have a truck driver instructor to take you home and someone to stay for 24 hours after surgery. No jewelry. Hold the meds we spoke about: NSAIDS Take the meds we spoke about w/a sip of water DOS: GAPAPENTIN, NEXIUM, INHALER, CYMBALTA Bring insurance card and ID. LABS AND COVID TO BE DONE IN [place]. Normal [facility] CBC AUTO DIFFon 08-13-2022 BASO # 0.0 103/ul Normal 0.0-0.1 [facility] Comment on above: Performed By: #### C BC #### [facility] [address] [address] [address] Raul Pereira Basophils/100 WBC (Bld) 0.4 % Normal 0.2-2.0 [facility] Comment on above: Performed By: #### C BC #### [facility] [address] [place] [address] Dr. Raul Pereira EO # 0.1 103/ul Normal 0.0-0.7 [facility] Comment on above: Performed By: #### C BC #### [facility] [address] [place] [address] Dr. Raul Pereira Eosinophils/100 WBC (Bld) 1.2 % Normal 0.9-7.0 [facility] Comment on above: Performed By: #### C BC #### [facility] [address] [place] [address] Dr. Raul Pereira Erythrocyte distribution width (RBC) [Ratio] 18.6 % Critically high 11.0-15.0 [facility] Comment on above: Performed By: #### C BC #### [facility] [address] [place] [address] Dr. Raul Pereira Hematocrit (Bld) [Volume fraction] 39.1 % Normal 36.0-48.0 [facility] Comment on above: Performed By: #### C BC #### [facility] [address] [place] [address] Dr. Raul Pereira Hemoglobin (Bld) [Mass/Vol] 12.5 g/dL Normal 12.0-16.0 [facility] Comment on above: Performed By: #### C BC #### [facility] [address] [place] [address] Dr. Raul Pereira IG # 0.03 10e3/ul Normal 0.00-0.03 [facility] Comment on above: Performed By: #### C BC #### [facility] [address] [place] [address] Dr. Raul Pereira IG % 0.4 % Normal 0.0-0.5 [facility] Comment on above: Performed By: #### C BC #### [facility] [address] [place] [address] Dr. Raul Pereira LYMPH # 2.0 103/ul Normal 1.2-3.8 [facility] Comment on above: Performed By: #### C BC #### [facility] [address] [place] [address] Dr. Raul Pereira Lymphocytes/100 WBC (Bld) 27.2 % Normal 20.5-60.0 [facility] Comment on above: Performed By: #### C BC #### [facility] [address] [place] [address] Dr. Raul Pereira MANUAL DIFF REQ NO Normal [facility] Comment on above: Performed By: #### C BC #### [facility] [address] [place] [address] Dr. Raul Pereira MCH (RBC) [Entitic mass] 27.2 pg Normal 26.7-34.0 [facility] Comment on above: Performed By: #### C BC #### [facility] [address] [place] [address] Dr. aRul Pereira MCHC (RBC) [Mass/Vol] 32.0 g/dL Normal 29.9-35.2 [facility] Comment on above: Performed By: #### C BC #### [facility] [address] [place] [address] Dr. Raul Pereira MCV (RBC) [Entitic vol] 85.2 fL Normal 81.0-99.0 [facility] Comment on above: Performed By: #### C BC #### [facility] [address] [place] [address] Dr. Raul Pereira MONO # 0.7 103/ul Normal 0.3-0.8 [facility] Comment on above: Performed By: #### C BC #### [facility] [address] [place] [address] Dr. Raul Pereira Monocytes/100 WBC (Bld) 9.3 % Normal 1.7-12.0 [facility] Comment on above: Performed By: #### C BC #### [facility] [address] [place] [address] Dr. Ralu Pereira NEUT # 4.4 103/ul Normal 1.4-6.5 [facility] Comment on above: Performed By: #### C BC #### [facility] [address] [place] [address] Dr. Raul Pereira Neutrophils/100 WBC (Bld) 61.5 % Normal 43.0-75.0 [facility] Comment on above: Performed By: #### C BC #### [facility] [address] [place] [address] Dr. Raul Pereira Platelet mean volume (Bld) [Entitic vol] 8.7 fL Critically low 9.5-13.5 [facility] Comment on above: Performed By: #### C BC #### [facility] [address] [place] [address] Dr. Raul Pereira PLT 387 103/ul Normal 150-450 [facility] Comment on above: Performed By: #### C BC #### [facility] [address] [place] [address] Dr. Raul Pereira RBC 4.59 106/ul Normal 4.20-5.40 [facility] Comment on above: Performed By: #### C BC #### [facility] [address] [place] [address] Dr. Raul Pereira WBC 7.2 103/ul Normal 4.0-11.0 [facility] Comment on above: Performed By: #### C BC #### [facility] [address] [place] [address] Dr. Raul Pereira Covid-19 PCR ([facility])on 07-19 SARS-CoV-2 (COVID-19) RNA IMELDA+probe Ql (Unsp spec) Not detected Normal NOT DETECTED [facility] Comment on above: Result Comment: This test is not yet approved or cleared by the [place] FDA. When there are no FDA-approved or cleared tests available, and other criteria are met, FDA can make tests available under an emergency access mechanism called an Emergency Use Authorization (EUA). The EUA for this test is supported by the [employer] of Health and Human Service's (HHS's) declaration [...] Performed By: #### C VDTB #### [facility] [address] [place] [address] Dr. Raul Pereira PROF CHEM 8 (BAS METB)on Anion gap [Moles/Vol] 11.5 mmol/L Normal [facility] Comment on above: Performed By: #### C BC #### [facility] [address] [place] [address] Dr. Raul Pereira Calcium [Mass/Vol] 9.5 mg/dL Normal 8.5-10.1 [facility] Comment on above: Performed By: #### C BC #### [facility] [address] [place] [address] Dr. Raul Pereira Chloride [Moles/Vol] 101 mmol/L Normal 98-107 [facility] Comment on above: Performed By: #### C BC #### [facility] [address] [place] [address] Dr. Raul Pereira CO2 [Moles/Vol] 29.6 mmol/L Normal 21.0-32.0 [facility] Comment on above: Performed By: #### C BC #### [facility] [address] [place] [address] Dr. Raul Pereira Creatinine [Mass/Vol] 0.65 mg/dL Normal 0.55-1.02 [facility] Comment on above: Performed By: #### C BC #### [facility] [address] [place] [address] Dr. Raul Pereira EGFR-AF INDONESIAN >60 Normal >=60 [facility] Comment on above: Performed By: #### C BC #### [facility] [address] [address] [address] Raul Pereira EGFR-NON AF INDONESIAN >60 Normal >=60 [facility] Comment on above: Performed By: #### C BC #### [facility] [address] [address] [address] Raul Pereira Glucose [Mass/Vol] 104 mg/dL Normal 74-106 [facility] Comment on above: Performed By: #### C BC #### [facility] [address] [address] [address] Raul Pereira Potassium [Moles/Vol] 4.1 mmol/L Normal 3.5-5.1 [facility] Comment on above: Performed By: #### C BC #### [facility] [address] [address] [address] Raul Pereira Sodium [Moles/Vol] 138 mmol/L Normal 136-145 [facility] Comment on above: Performed By: #### C BC #### [facility] [address] [address] [address] Raul Pereira Urea nitrogen [Mass/Vol] 11.0 mg/dL Normal 7.0-18.0 [facility] Comment on above: Performed By: #### C BC #### [facility] [address] [address] [address] Raul Pereira Urea nitrogen/Creatinine [Mass ratio] 16.9 mg/mg Normal [facility] Comment on above: Performed By: #### C BC #### [facility] [address] [address] [address] Raul Pereira Office Visiton 08-06-2022 Follow-up visit [id number] HilaryLex rrmonica L 1960 F Date Provider Department Center 08/06/2022 Nella-MICAELA GUPTA [facility] SURG Second Fl No family history on file Level of Service:51944 AR OFFICE/OUTPATIENT ESTABLISHED LOW MDM 20-29 MIN Reason for Visit and Comments: Consult [484] - Rhett is here for a gallbladder consult. Rhett also c/o swelling in right leg with pain in calf. Normal [facility] PROTIME-INRon 08-06-2022 INR IN PPP BY COAGULATION ASSAY 0.89 Low 0.90-1.10 [facility] Comment on above: Result Comment: ACC P RECOMMENDED INR FOR WARFARIN THERAPY CONDITION [...] 1995;108:231S-246S. Performed By: #### L [id number] #### [facility] [employer] ([facility]) [address] [place] [address] PROTHROMBIN TIME (PT) IN PPP BY COAGULATION ASSAY 12.1 Seconds Low 12.3-14.8 [facility] Comment on above: Performed By: #### L [id number] #### [facility] ([facility]) [address] [place] [address] CT ABD/PELVIS WO CONon 07-24 CT ABD/PELVIS [...] by: JESSICA LIPSCOMB Date: 2022-07-24 17:21 Normal [facility] NM HEPATOBILIARY SCAN W EFon 07-18-2022 PR HEPATOBILIARY SCAN W EF EXAMINATION: NM HEPATOBILIARY [...] by: MEAGHAN SKINNER Date: 2022-07-18 10:22 Normal [facility] CBC AUTO DIFFon 08-27-2022 BASO # 0.0 103/ul Normal 0.0-0.1 [facility] Comment on above: Performed By: #### C BC #### [facility] [address] [place] [address] Dr. Raul Pereira Basophils/100 WBC (Bld) 0.5 % Normal 0.2-2.0 [facility] Comment on above: Performed By: #### C BC #### [facility] [address] [place] [address] Dr. Raul Pereira EO # 0.1 103/ul Normal 0.0-0.7 [facility] Comment on above: Performed By: #### C BC #### [facility] [address] [place] [address] Dr. Raul Pereira Eosinophils/100 WBC (Bld) 0.9 % Normal 0.9-7.0 [facility] Comment on above: Performed By: #### C BC #### [facility] [address] [place] [address] Dr. Raul Pereira Erythrocyte distribution width (RBC) [Ratio] 20.2 % Critically high 11.0-15.0 [facility] Comment on above: Performed By: #### C BC #### [facility] [address] [place] [address] Dr. Raul Pereira Hematocrit (Bld) [Volume fraction] 41.1 % Normal 36.0-48.0 [facility] Comment on above: Performed By: #### C BC #### [facility] [address] [place] [address] Dr. Raul Pereira Hemoglobin (Bld) [Mass/Vol] 13.2 g/dL Normal 12.0-16.0 [facility] Comment on above: Performed By: #### C BC #### [facility] [address] [place] [address] Dr. Raul Pereira IG # 0.05 10e3/ul Critically high 0.00-0.03 [facility] Comment on above: Performed By: #### C BC #### [facility] [address] [place] [address] Dr. Raul Pereira IG % 0.6 % Critically high 0.0-0.5 [facility] Comment on above: Performed By: #### C BC #### [facility] [address] [place] [address] Dr. Raul Pereira LYMPH # 1.4 103/ul Normal 1.2-3.8 [facility] Comment on above: Performed By: #### C BC #### [facility] [address] [place] [address] Dr. Raul Pereira Lymphocytes/100 WBC (Bld) 17.3 % Critically low 20.5-60.0 [facility] Comment on above: Performed By: #### C BC #### [facility] [address] [place] [address] Dr. Raul Pereira MANUAL DIFF REQ NO Normal [facility] Comment on above: Performed By: #### C BC #### [facility] [address] [place] [address] Dr. Raul Pereira MCH (RBC) [Entitic mass] 27.3 pg Normal 26.7-34.0 [facility] Comment on above: Performed By: #### C BC #### [facility] [address] [place] [address] Dr. Raul Pereira MCHC (RBC) [Mass/Vol] 32.1 g/dL Normal 29.9-35.2 [facility] Comment on above: Performed By: #### C BC #### [facility] [address] [place] [address] Dr. Raul Pereira MCV (RBC) [Entitic vol] 84.9 fL Normal 81.0-99.0 [facility] Comment on above: Performed By: #### C BC #### [facility] [address] [place] [address] Dr. Raul Pereira MONO # 0.8 103/ul Normal 0.3-0.8 [facility] Comment on above: Performed By: #### C BC #### [facility] [address] [place] [address] Dr. Raul Pereira Monocytes/100 WBC (Bld) 10.0 % Normal 1.7-12.0 [facility] Comment on above: Performed By: #### C BC #### [facility] [address] [place] [address] Dr. Raul Pereira NEUT # 5.8 103/ul Normal 1.4-6.5 [facility] Comment on above: Performed By: #### C BC #### [facility] [address] [place] [address] Dr. Raul Pereira Neutrophils/100 WBC (Bld) 70.7 % Normal 43.0-75.0 [facility] Comment on above: Performed By: #### C BC #### [facility] [address] [place] [address] Dr. Raul Pereira Platelet mean volume (Bld) [Entitic vol] 9.1 fL Critically low 9.5-13.5 [facility] Comment on above: Performed By: #### C BC #### [facility] [address] [place] [address] Dr. Raul Pereira PLT 358 103/ul Normal 150-450 [facility] Comment on above: Performed By: #### C BC #### [facility] [address] [place] [address] Dr. Raul Pereira RBC 4.84 106/ul Normal 4.20-5.40 [facility] Comment on above: Performed By: #### C BC #### [facility] [address] [place] [address] Dr. Raul Pereira WBC 8.1 103/ul Normal 4.0-11.0 [facility] Comment on above: Performed By: #### C BC #### [facility] [address] [place] [address] Dr. Ralu Pereira LIPASEon 07-13-2022 Lipase [Catalytic activity/Vol] 47.0 U/L Critically low 73.0-393.0 [facility] Comment on above: Performed By: #### C BC #### [facility] [address] [place] [address] Dr. Raul Pereira PROF 14(COMP METB)on 022 Albumin [Mass/Vol] 3.6 g/dL Normal 3.4-5.0 [facility] Comment on above: Performed By: #### C BC #### [facility] [address] [place] [address] Dr. Raul Pereira Albumin/Globulin [Mass ratio] 1.0 {ratio} Normal [facility] Comment on above: Performed By: #### C BC #### [facility] [address] [place] [address] Dr. Raul Pereira ALP [Catalytic activity/Vol] 88 U/L Normal 46-116 [facility] Comment on above: Performed By: #### C BC #### [facility] [address] [place] [address] Dr. Raul Pereira ALT [Catalytic activity/Vol] 16 U/L Normal 14-59 [facility] Comment on above: Performed By: #### C BC #### [facility] [address] [place] [address] Dr. Raul Pereira Anion gap [Moles/Vol] 13.2 mmol/L Normal [facility] Comment on above: Performed By: #### C BC #### [facility] [address] [place] [address] Dr. Raul Pereira AST [Catalytic activity/Vol] 15 U/L Normal 15-37 [facility] Comment on above: Performed By: #### C BC #### [facility] [address] [place] [address] Dr. Raul Pereira Bilirubin [Mass/Vol] 0.2 mg/dL Normal 0.2-1.0 [facility] Comment on above: Performed By: #### C BC #### [facility] [address] [place] [address] Dr. Raul Pereira Calcium [Mass/Vol] 9.5 mg/dL Normal 8.5-10.1 [facility] Comment on above: Performed By: #### C BC #### [facility] [address] [place] [address] Dr. Raul Pereira Chloride [Moles/Vol] 100 mmol/L Normal 98-107 [facility] Comment on above: Performed By: #### C BC #### [facility] [address] [address] [address] Raul Pereira CO2 [Moles/Vol] 28.0 mmol/L Normal 21.0-32.0 [facility] Comment on above: Performed By: #### C BC #### [facility] [address] [place] [address] Dr. Raul Pereira Creatinine [Mass/Vol] 0.78 mg/dL Normal 0.55-1.02 [facility] Comment on above: Performed By: #### C BC #### [facility] [address] [place] [address] Dr. Raul Pereira EGFR-AF INDONESIAN >60 Normal >=60 [facility] Comment on above: Performed By: #### C BC #### [facility] [address] [place] [address] Dr. Raul Pereira EGFR-NON AF INDONESIAN >60 Normal >=60 [facility] Comment on above: Performed By: #### C BC #### [facility] [address] [place] [address] Dr. Raul Pereira Globulin (S) [Mass/Vol] 3.6 g/dL Normal [facility] Comment on above: Performed By: #### C BC #### [facility] [address] [place] [address] Dr. Raul Pereira Glucose [Mass/Vol] 86 mg/dL Normal 74-106 [facility] Comment on above: Performed By: #### C BC #### [facility] [address] [place] [address] Dr. Raul Pereira Potassium [Moles/Vol] 4.2 mmol/L Normal 3.5-5.1 [facility] Comment on above: Performed By: #### C BC #### [facility] [address] [place] [address] Dr. Raul Pereira Protein [Mass/Vol] 7.2 g/dL Normal 6.4-8.2 [facility] Comment on above: Performed By: #### C BC #### [facility] [address] [place] [address] Dr. Raul Pereira Sodium [Moles/Vol] 137 mmol/L Normal 136-145 [facility] Comment on above: Performed By: #### C BC #### [facility] [address] [place], [place] [address] Dr. Raul Pereira Urea nitrogen [Mass/Vol] 11.0 mg/dL Normal 7.0-18.0 [facility] Comment on above: Performed By: #### C BC #### [facility] [address] [address] [address] Raul Pereira Urea nitrogen/Creatinine [Mass ratio] 14.1 mg/mg Normal [facility] Comment on above: Performed By: #### C BC #### [facility] [address] [address] [address] Raul Pereira US SINGLE QUAD RT UPPERon US SINGLE QUAD RT [facility] EXAM: US SINGLE QUAD RT UPPER 07/13/2022 [...] by: MICAH ROSAS Date: 2022-07-13 16:33 Normal [facility] Covid-19 PCR ([facility])on 06-17 SARS-CoV-2 (COVID-19) RNA IMELDA+probe Ql (Unsp spec) Not detected Normal NOT DETECTED [facility] Comment on above: Result Comment: This test is not yet approved or cleared by the [place] FDA. When there are no FDA-approved or cleared tests available, and other criteria are met, FDA can make tests available under an emergency access mechanism called an Emergency Use Authorization (EUA). The EUA for this test is supported by the [place] of Health and Human Service's (HHS's) declaration [...] consistent with SARS-CoV-2. Performed By: #### C [facility] #### [facility] [address] [place] [address] Dr. Raul Pereira Endoscopy Reporton 8 Endoscopy Report [id number] Rhett Me[facility] Surgery Date: 02/24/2018 Room #: Z0 Date of : 1960 PROCEDURE NOTEATTENDING: Xin Beasley M.D.PROCEDURE PERFORMED: EGD.PIPE ORGAN MECHANIC APPRENTICE: Dr. Noland.SEDATION:1. Versed 10 mg.2. Fentanyl 250 [...] 02/24/2018/09:53 Kiara/Ruddy Noland M.D.Date Trans: 02/24/2018 12:13 P/[id number]_[id number] cc: Napoleon Rahman M.D. [address] [facility] Kiara [facility] [address] [place] [facility] Endoscopy Report MR#: [id number] Name: Rhett Mejia Surgery Date: 02/24/2018 Room #: Z0 Date of : 1960 PROCEDURE NOTEATTENDING: Xin Beasley M.D.PROCEDURE PERFORMED: Colonoscopy and polypectomy.PIPE ORGAN MECHANIC APPRENTICE: Ruddy Noland M.D.SEDATION: Versed 10 mg and [...] the results of the histopathology.Electronic ally Signed by:Xni Beasley M.D. 03/05/2018 11:22 A Xin Beasley M.D. I was present for the entire procedure from insertion of the scope untilit was withdrawn. Date Dict: 02/24/2018/09:57 Kiara/Ruddy Noland M.D.Date Trans: 02/24/2018 10:12 Kiara/Aditya_JN:[id number] cc: Napoleon Rahman M.D. [address] [facility] [id number] Normal [facility] POC GLUCOSE LABon 02-24-2018 Glucose mass conc 87 mg/dL Normal 70-100 [facility] Comment on above: Performed By: #### 8 [id number] ####[facility] Vital Signs Date Time Vital Sign Value Performing Clinician Facility NEGATED: Highlighted row BMI (Body Mass Index) [facility] NEGATED: Highlighted row Body Temperature [facility] NEGATED: Highlighted row Body weight [facility] NEGATED: Highlighted row BP Diastolic [facility] NEGATED: Highlighted row BP Systolic [facility] NEGATED: Highlighted row Height [facility] NEGATED: Highlighted row Pulse (Heart Rate) [facility] NEGATED: Highlighted row Pulse Oximetry [facility] NEGATED: Highlighted row Respiratory Rate [facility] Encounters Encounter Date Encounter Type Care Provider Facility Start: 06-21-2024 End: 06-21-2024 ambulatory Monica Malagon MD Facility:[facility] Start: 01-30-2024 ambulatory Cristian Johnson acility:[facility] Start: 09-22-2023 End: 09-22-2023 ambulatory Monica Malagon MD Facility:[facility] Start: 04-08-[address] NAPOLEON RAHMAN . Facili ty:[facility] Start: 03-21-2023 End: 03-22-2023 ambulatory EVIE Noriega Facility:[facility] Start: 03-05-2023 End: 03-06-2023 ambulatory AMIRA CHARISSEMALISSAMARGOTPILAR . Facility:[facility] Start: 02-20-2023 End: 02-21-[address] NAPOLEON RAHMAN . Facility:[facility] Start: 02-18-2023 End: 02-19-[address] JESSICA LIPSCOMB Facility:[facility] Start: 02-13-2023 End: 02-14-[address] NAPOLEON RAHMAN . Facility:[facility] Start: 02-12-2023 End: 02-13-[address] NAPOLEON RAHMAN . Facility:[facility] Start: 02-08-2023 Encounter for genera l adult medical examination without abnormal findings DR NAPOLEON RAHMAN . [facility] Start: 01-31-2023 End: 02-01-2023 Encounter for general adult medical examination without abnormal findings NONE LISTED REQUEST Facility:[facility] Start: 01-31-2023 End: 02-01-[address] NONE LISTED REQUEST Facility:[facility] Start: 01-30-2023 End: [...] examination DR BETHEL LITTLE . [facility] Start: 12-13-2022 End: 12-14-[address] BETHEL LITTLE . Facility:[facility] Start: 12-13-2022 End: 12-14-2022 Encounter for preprocedural laboratory examination DR BETHEL LITTLE . Facility:[facility] Start: 12-04-2022 End: 12-05-2022 ambulatory RUBY RAMIREZ . Facility:[facility] Start: 12-03-2022 End: 01-17-[address] NAPOLEON RAHMAN . Facility:[facility] Start: 11-15-2022 End: 11-16-2022 ambulatory RUBY RAMIREZ . Facility:[facility] Start: 08-29-2022 End: 08-30-2022 ambulatory RUBY RAMIREZ . Facility:[facility] Start: 08-27-2022 End: 08-27-2022 ambulatory [facility] Start: 08-16-2022 End: 08-16-2022 ambulatory [facility] Start: 08-15-2022 Encounter for other preprocedural examination DR MICAELA GUPTA [facility] Start: 08-15-2022 Encounter for preprocedural laboratory examination DR MICAELA GUPTA [facility] Start: 08-13-2022 End: 08-14-[address] MICAELA GUPTA Facility:[facility] Start: 08-13-2022 End: 08-14-2022 Encounter for other preprocedural examination DR MICAELA GUPTA Facility:[facility] Start: 08-06-2022 End: 08-07-2022 ambulatory [facility] Start: 08-06-2022 End: 08-06-2022 ambulatory [facility] Start: 08-06-2022 ambulatory [facility] Start: 07-24-2022 End: 07-25-[address] [...] Start: 02-24-2018 End: 02-25-2018 Ambulatory XIN BEASLEY Facility:[facility] Start: 10-19-2014 End: 10-19-2014 Patient encounter procedure [facility] Start: 12-22-2013 End: 12-22-2013 Departed Referred [facility] Start: 10-12-2001 End: 10-12-2001 Patient encounter procedure [facility] Start: 09-01-2001 End: 09-01-2001 Patient encounter procedure [facility] Start: 08-26-2001 End: 08-26-2001 Patient encounter procedure [facility] Start: 03-21-1999 End: 03-28-1999 Evaluation and management of inpatient [facility] Start: 09-07-1997 End: 09-07-1997 Admission to day surgery [facility] Start: 07-21-1997 End: 07-21-1997 Emergency department patient visit [facility] Procedures Date Procedure Procedure Detail Performing Clinician Start: 02-24-2018 Colsc flx w/removal lesion by hot bx forceps XIN BEASLEY Payers Date Payer Category Payer Unknown 1960 Self-pay 1960 Self-pay [id number] 1960 Unknown [id number] 1960 Unknown [id number] 2.16.84 0.1.727278.3.579.2.593 1960 Unknown [id number] 2.16.84 0.1.766925.3.579.2.593 1960 Unknown [id number] 2.16.84 0.1.851962.3.579.2.593 1959 Unknown [id number] 2.16.84 0.1.531397.3.579.2.593 1959 Unknown [id number] 2.16.84 0.1.748050.3.579.2.593 1959 Unknown [id number] 2.16.84 0.1.770663.3.579.2.593 1959 Unknown [id number] 2.16.84 0.1.505610.3.579.2.593 1959 Unknown [id number] 2.16.84 0.1.616412.3.579.2.593 1959 Unknown [id number] 2.16.84 0.1.071258.3.579.2.593 1959 Unknown [id number] 2.16.84 0.1.896724.3.579.2.593 1959 Unknown [id number] 2.16.84 0.1.168346.3.579.2.593 1959 Unknown [id number] 2.16.84 0.1.408390.3.579.2.593 1959 Unknown [id number] 2.16.84 0.1.515617.3.579.2.593 1959 Unknown [id number] 2.16.84 0.1.867371.3.579.2.593 1959 Unknown [id number] 2.16.84 0.1.935036.3.579.2.593 1959 Unknown [id number] 2.16.84 0.1.342562.3.579.2.593 1959 Unknown [id number] 2.16.84 0.1.199485.3.579.2.593 1959 Unknown [id number] 2.16.84 0.1.955509.3.579.2.593 1959 Unknown [id number] 2.16.84 0.1.733310.3.579.2.593 1959 Unknown [id number] 2.16.84 0.1.321949.3.579.2.593 1959 Unknown [id number] 2.16.84 0.1.344012.3.579.2.593 1959 Unknown [id number] 2.16.84 0.1.613290.3.579.2.593 1959 Unknown [id number] 2.16.84 0.1.754422.3.579.2.593 1959 Unknown [id number] 2.16.84 0.1.747610.3.579.2.593 1959 Unknown [id number] 2.16.84 0.1.160815.3.579.2.593 1959 Unknown [id number] 2.16.84 0.1.452663.3.579.2.593 1959 Unknown [id number] 2.16.84 0.1.399189.3.579.2.593 1959 Unknown [id number] 2.16.84 0.1.905091.3.579.2.593 1959 Unknown [id number] 2.16.84 0.1.414806.3.579.2.593 1959 Unknown [id number] 2.16. 840.1.780674.3.579.2.196 1960 Unknown [id number] 2.16. 840.1.925917.3.579.2.196 Medicare [id number] Unknown [id number] Unknown [id number] 2.16.84 [id number] Unknown [id number] Clinical Notes 05-15-2022 to 02-18-2023 Note Date [...] our patients to inform us about any bmzo-twy-fcqnhig medications or herbal remedies/nutritional supplements/alternative remedies. 2. [...] with their primary care provider. [facility] 01-16-2023 Note CONSULTATION CONSULTATION DATE: 01/16/2023 [...] in the clinic post epidural. [facility] 12-04-2022 Note CONSULTATION CONSULTATION DATE: 12/04/2022 [...] the office after the procedure. [facility] 11-15-2022 Note CONSULTATION PROCEDURE DATE: 11/15/2022 [...] office following her RFA procedure. [facility] 11-15-2022 Note CONSULTATION CONSULTATION DATE: 11/15/2022 [...] such as heat and stretches. [facility] 08-29-2022 Note CONSULTATION PROCEDURE DATE: 08/29/2022 [...] Patient tolerated the procedure well. [facility] 08-29-2022 Note CONSULTATION CONSULTATION DATE: 08/29/2022 [...] in the office post procedure. [facility] 08-29-2022 Note CONSULTATION CONSULTATION DATE: 08/29/2022 ADDENDUM: Addendum to peer plan: We will repeat radiofrequency ablation starting on the right side and subsequently moving to the left at T11, T12 and L1, L2. [facility] 08-27-2022 Note Subjective Patient ID: Rhett [...] past 36 hour(s)). No follow-ups on file. [facility] 08-16-2022 Note Patient: Rhett rousseau Procedure Summary Date: 08/16/22 Room / Location: [facility] OPERATING ROOM 01 / [facility] Operating Room Anesthesia Start: 734 Anesthesia [...] no known notable events for this encounter. [facility] 08-16-2022 Note Airway Date/Time: 08/16/2022 7:44 AM Urgency: elective Airway not difficult General Information and Staff Patient location during procedure: OR Anesthesiologist: Cassi Velez MD Resident/METAL DRESSER/CAA: LEONARD Canales Performed: resident/METAL DRESSER/CAA Indications and Patient Condition Indications for airway [...] before airway management; Dentures to Circ RN [facility] 08-16-2022 Note Patient: Rhett rousseau Procedure Information Date/Time: 08/16/22 0730 Procedure: CHOLECYSTECTOMY, LAPAROSCOPIC, WITH INTRAOPERATIVE CHOLANGIOGRAM, WITH LAPAROTOMY IF INDICATED REQ ERIC OR MANDO HUERTA MAUK, WO[place] - C-ARM AVAIL STAFF REQUESTS: LENIN DE LA CRUZ Location: [facility] OPERATING ROOM 01 / [facility] Operating Room Surgeons: Micaela Gupat MD Relevant Problems Endo (+) Type 1 [...] Plan discussed with CAA. Additional Equipment Requests [facility] 08-06-2022 Note Subjective Patient ID: Rhett Mejia [...] past 36 hour(s)). No follow-ups on file. [facility] 08-06-2022 Note Subjective Patient ID: Rhett Mejia [...] past 36 hour(s)). No follow-ups on file. [facility] 06-12-2022 Note CONSULTATION PROCEDURE DATE: 06/12/2022 [...] patient tolerated the procedure well. [facility] 06-12-2022 Note CONSULTATION CONSULTATION DATE: 06/12/2022 [...] to the plan of care. [facility] 05-15-2022 Note CONSULTATION CONSULTATION DATE: 05/15/2022 [...] Patient agrees with the plan of care. [facility] Signed and Approved by: RUBY RAMIREZ . 05/16/2022 13:38:00 [facility] 05-15-2022 Note CONSULTATION PROCEDURE DATE: 05/15/2022 [...] will be followed up in the office. [facility] Signed and Approved by: RUBY RAMIREZ . 05/16/2022 13:38:00 [facility] Summary Purpose Family History No Family [...] and content) DATE CREATED AUTHOR 05/07/2018 [facility] DATE CREATED AUTHOR AUTHOR'S ORGANIZ ATION 09/26/2022 [facility] DATE CREATED AUTHOR AUTHOR'S ORGANIZ ATION 03/28/2023 [facility] DATE CREATED AUTHOR AUTHOR'S ORGANIZ ATION 03/25/2024 [facility] DATE CREATED AUTHOR AUTHOR'S ORGANIZ ATION 07/10/2024 [facility] FOR RECORDS PERTAINING TO PATIENTS WHO ARE [...] BE BASED ON THE PRIMARY CLINICAL RECORDS. [facility] [email or web address] provides no warranty or guarantee of the accuracy or completeness of information in this document.
--- NOTE | 2024-07-21 08:52 | PM.CN ---
Consult Note: HPI Data of Consult Patient: known to practice within the last 3 years Requesting Physician: Jennie Rowe NP Primary Care Provider: Ke Rahman MD Consult Narrative Reason for consult: f/u Narrative: Vida mason pleasant 63 year old female presents for evaluation and management of chronic low back pain. Patients PCP manages most of her medications, we prescribe flexeril 5mg TID PRN which she utilizes with benefit. Patient recently underwent repeat bilateral L2/3 L4/5 facet RFAs with >80% improvement in axial low back pain, however patient is noticing increase in cervical and thoracic pain. Pain today 7/10 constant increasing with twisting pushing pulling standing walking lifting housework stairs and activity, pain improved with lying down, sitting for short periods of time, and ice. Patient would like to discuss thoracic RFAs, previously had completed these with Dr Hanley with significant relief greater than 6 months. cc:: CC: Jennie Rowe NP Review of Systems ROS Status of ROS 10 or more systems reviewed and unremarkable except as noted in history and below Musculoskeletal Reports: back pain, neck pain and joint pain; Denies: extremity pain [facility] Medical History (Updated 07/21/24 @ 08:55 by Jennie Rowe NP) Upper back pain ?M54.9 - Dorsalgia, unspecified (ICD-10) Back pain ?M54.9 - Dorsalgia, unspecified (ICD-10) Neck pain ?M54.2 - Cervicalgia (ICD-10) Suicidal behavior ?R45.89 - Other symptoms and signs involving emotional state (ICD-10) Panic attack ?F41.0 - Panic disorder [episodic paroxysmal anxiety] (ICD-10) Depressed ?F32.A - Depression, unspecified (ICD-10) Anxiety ?F41.9 - Anxiety disorder, unspecified (ICD-10) Hearing deficit ?H91.90 - Unspecified hearing loss, unspecified ear (ICD-10) Acid reflux ?K21.9 - Gastro-esophageal reflux disease without esophagitis (ICD-10) Left thyroid nodule ?E04.1 - Nontoxic single thyroid nodule (ICD-10) Smoker ?F17.200 - Nicotine dependence, unspecified, uncomplicated (ICD-10) Asthmatic bronchitis ?J45.909 - Unspecified asthma, uncomplicated (ICD-10) Surgical History History of cholecystectomy ?Z90.49 - Acquired absence of other specified parts of digestive tract (ICD-10) H/O discectomy ?Z98.890 - Other specified postprocedural states (ICD-10) H/O: hysterectomy ?Z90.710 - Acquired absence of both cervix and uterus (ICD-10) Gastric bypass status for obesity ?Z98.84 - Bariatric surgery status (ICD-10) Meds Home Medications and Allergies Home Medications ?Medication ?Instructions ?Recorded ?Confirmed ?Type buprenorphine 10 mcg/hour weekly 1 patch transdermal QWEEK 05/01/23 06/21/24 History transdermal patch (Butrans) calcium carbonate 600 mg-vitamin cap PO .QD 05/01/23 History D3 5 mcg (200 unit) capsule (Calcium 600 + D(3)) cholecalciferol (vitamin D3) 10 10 mcg PO DAILY 05/01/23 06/21/24 History mcg (400 unit) capsule cyclobenzaprine 5 mg tablet 5 mg PO TID 05/01/23 06/21/24 History dextroamphetamine-amphetamine 20 20 mg PO .QD 05/01/23 06/21/24 History mg tablet diclofenac sodium 1 % topical gel 4 g topical QID 05/01/23 06/21/24 History diclofenac sodium 75 mg 75 mg PO .QD 05/01/23 06/21/24 History tablet,delayed release duloxetine 60 mg capsule,delayed 120 mg PO DAILY 05/01/23 06/21/24 History release (Cymbalta) esomeprazole magnesium 20 mg 40 mg PO DAILY 05/01/23 06/21/24 History capsule,delayed release (Nexium) gabapentin 600 mg tablet 600 mg PO TID 05/01/23 06/21/24 History lidocaine 5 % topical ointment 05/01/23 History vitamin B complex (Complex B-100 1 tab PO DAILY 05/01/23 06/21/24 History tablet,extended release) ziprasidone HCl 20 mg capsule 20 mg PO .HS 05/01/23 06/21/24 History albuterol sulfate 2.5 mg/3 mL mg 06/21/24 History (0.083 %) solution for nebulization Allergies Allergy/AdvReac Type Severity Reaction Status Date / Time iodine Allergy unknown Verified 06/21/24 09:05 latex Allergy Unknown Verified 06/21/24 09:05 soybean Allergy Unknown Verified 06/21/24 09:05 Sulfa (Sulfonamide Allergy unknown Verified 06/21/24 09:05 Antibiotics) IV DYE Allergy Unknown Uncoded 06/21/24 09:05 Exam Constitutional Documenting provider has reviewed patient's vital signs: yes Common normals: no apparent distress, oriented x3, healthy appearing, alert and well nourished General appearance: cooperative HENMT Common normals: normocephalic, hearing grossly normal bilaterally and moist oral mucous membranes Head and scalp: normocephalic Eye Common normals: PERRL Pupil: PERRL Neck & C-Spine Common normals: full ROM General: normal visual inspection Cervical spine: pain with cervical ROM Chest Common normals: inspection of chest normal Respiratory Common normals: normal respiratory effort, no retractions and no use of accessory muscles Back & Pelvis Thoracic spine/upper back: ROM limited, pain with ROM and thoracic spinal tenderness Lumbar spine/lower back: ROM limited, pain with ROM and straight leg raise negative bilaterally Other: positive facet loading, increased pain over T10-12 facet joints negative radiculopathy strength 5/5 in BLE Extremity Common normals: normal to inspection and full ROM Neuro Common normals: oriented x3, CN's II-XII intact bilaterally, moves all extremities, no focal motor deficits, no sensory deficits noted and deep tendon reflexes 2+ bilaterally Sensorium/orientation: alert Gait (neuro): antalgic Motor exam: strength 5/5 throughout and no movement abnormalities noted Psych Common normals: mental status grossly normal, thought process normal, cooperative, affect normal, speech normal and activity/motor behavior normal Speech: normal speech Thought process: normal thought process Results Additional Findings Additional findings: If on a controlled substance or opioids, I have checked an [place] report on this patient and there are no aberrancies noted in the prescribing history.??If on a controlled substance or opioid a drug screen was completed and reviewed within the last year, and if there has not been a drug screen completed we ordered one today to monitor higher risk, state monitored pain medication use. As part of providing excellent, safe, comprehensive care, the following was completed at our patient's visit: 1. A medication reconciliation and review to ensure accurate knowledge of current/active medications, including asking our patients to inform us about any [id number] medications or herbal remedies/nutritional supplements/alternative remedies. 2. A review to specifically ensure our patients have had annual screening for screening for depression, screening for tobacco use, and screening for unhealthy alcohol use. For concerning screenings had a discussion with the patient, provided patient education, and recommended follow-up with primary care provider when appropriate. If patient noted with a risk of falling, they received education on strength, gait, and balance training to prevent future risk of falling. Assessment and Plan Assessment and Plan (1) Thoracic spondylosis: (2) Lumbar spondylosis: Assessment and Plan: bilateral L2/3 L4/5 RFA >80% improvement ongoing (3) Myofascial pain: Plan bilateral T10-11 T11-12 MBB x2 working towards thermal RFA for chronic middle back pain unresponsive to HEP greater than 6 weeks, conservative care and medications f/u after each injection
== END 2024-07-21 08:22 | disposition home or self-care (01) ==
LOC: PM 08:24
PROVIDERS: PCP Family Medicine; Visit Provider Nurse Practitioner
DX: M47.814 Spondylosis without myelopathy or radiculopathy, thoracic region (principal); M47.816 Spondylosis without myelopathy or radiculopathy, lumbar region; M79.18 Myalgia, other site
CPT/HCPCS: G0463

== ENCOUNTER 2024-08-02 07:24 | Day surgery (SDC) | payer MEDICARE, OTHER, SELFPAY ==
--- OUTSIDE RECORDS SUMMARY | 2024-08-02 07:27 | XMS_ITS | CCD ---
Author Organization [facility] Care Team Providers Care Incinerator Operator Name Role Phone NAWRAS, ALI T Unavailable Unavailable NAWRAS, ALI T Unavailable Unavailable HOY, NAPOLEON Unavailable Unavailable HOY, NAPOLEON Unavailable Unavailable AL Unavailable Unavailable NAWRAS, ALI T Unavailable Unavailable [...] LAKSHMIPATHY ., NARENDRANATH Attending Rajani vailable DR JESSICA LIPSCOMB Consulting [...] Unavailable HOY ., DR BENDER Attending Unavailable HAMBURG, DR MEAGHAN Stanton Consulting Unavailable HOY ., DR BENDER Primary Care Unavailable HOY ., DR BENDER Consulting Unavailable HOY ., DR BENDER Admsotero Unavailable HOY ., DR BENDER Attending Unavailable REBAEBER, DR JESSICA Raya Consulting Unavailable HOY ., [...] Unavailable HOY ., DR BENDER Attending Unavailable HAMBURG, DR MEAGHAN Stanton Consulting Unavailable RAMIREZ ., [...] Unavailable Manas RIOJAS, Monica Todd Attending Unavailable Manas RIOJAS, Monica Todd Attending Unavailable Cristian Morris Attending Unavailab Cristian Du Admitting Unavailab Napoleon Gómez M Primary Care Unavailable Allergies Allergy Classification Reported Allergen(s) Allergy Type Date of Onset Reaction(s) Facility (1 source) Contrast media; Translations: [IVP DYE] Propensity to adverse reactions (disorder) 1 [facility] Repository (2 sources) corn extract; Translations: [CORN] Drug Allergy 1 [facility] Repository (6 sources) iodine; Translations: [IODINE] Drug Allergy 9 Edema [facility] Repository (6 sources) Latex; Translations: [LATEX] Drug allergy (disorder) 9 Anaphylaxis [facility] Repository (1 source) loratadine Drug Allergy 1 [facility] Repository (2 sources) loratadine; Translations: [LORATADINE] Drug Allergy 3 [facility] Repository (1 source) montelukast Drug Allergy 1 [facility] Repository (3 sources) papaveretum; Translations: [SOYBEAN] Drug Allergy 1 [facility] Repository (2 sources) Penicillins; Translations: [PENICILLINS] Drug allergy (disorder) 1 [facility] Repository (1 source) povidone-iodine Drug Allergy 9 [facility] Repository (6 sources) propofol; Translations: [PROPOFOL] Drug Allergy 2 Anaphylaxis [facility] Repository (2 sources) wheat preparation; Translations: [WHEAT] Drug Allergy 2 [facility] Repository (5 sources) Iodinated Contrast Media; Translations: [IODINATED CONTRAST MEDIA] Allergy to Substance 4 Anaphylaxis [facility] Repository (1 source) montelukast; Translations: [MONTELUKAST] Drug Allergy 4 [facility] Repository (1 source) oxybutynin; Translations: [DITROPAN] Drug Allergy 2 [facility] Repository (1 source) Povidone-Iodine; Translations: [POVIDONE-IODINE] Drug Allergy 4 [facility] Repository (1 source) Soy protein; Translations: [SOY] Propensity to adverse reactions to drug (disorder) 2 [facility] Repository (1 source) Iodine (And Iodine Containting Drugs) Drug allergy (disorder) 4 [facility] Repository (1 source) Penicillin Drug Allergy [facility] Repository (1 source) Sulfonamides (Antibiotic) Drug allergy (disorder) 2 [facility] Repository (1 source) Iodine Drug Allergy 8 [facility] Repository (1 source) Latex Drug allergy (disorder) 8 [facility] Repository (1 source) Propofol Drug Allergy 8 [facility] Repository Medications Completed/Discontinued Medications Medication Drug [...] 07-15-2022 Episodic Other aftercare (1 source) 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 Raul Pereira Basophils/100 WBC (Bld) 0.6 % Normal 0.2-2.0 [facility] Comment on above: Performed By: #### C BC #### [facility] [address] [place] [address] Dr. Raul Pereira EO # 0.2 103/ul Normal 0.0-0.7 [facility] Comment on above: Performed By: #### C BC #### [facility] [address] [place] [address] Dr. Raul Pereira Eosinophils/100 WBC (Bld) 2.3 % Normal 0.9-7.0 [facility] Comment on above: Performed By: #### C BC #### [facility] [address] [place] [address] Dr. Raul Pereira Hematocrit (Bld) [Volume fraction] 39.5 % Normal 36.0-48.0 [facility] Comment on above: Performed By: #### C BC #### [facility] [address] [place] [address] Dr. Raul Pereira Hemoglobin (Bld) [Mass/Vol] 12.3 g/dL Normal 12.0-16.0 [facility] Comment on above: Performed By: #### C BC #### [facility] [address] [place] [address] Dr. Raul Pereira IG # 0.03 10e3/ul Normal 0.00-0.03 [facility] Comment on above: Performed By: #### C BC #### [facility] [address] [place] [address] Dr. aRul Pereira IG % 0.4 % Normal 0.0-0.5 [facility] Comment on above: Performed By: #### C BC #### [facility] [address] [place] [address] Dr. Raul Pereira LYMPH # 2.1 103/ul Normal 1.2-3.8 [facility] Comment on above: Performed By: #### C BC #### [facility] [address] [place] [address] Dr. Raul Pereira Lymphocytes/100 WBC (Bld) 24.8 % Normal 20.5-60.0 [facility] Comment on above: Performed By: #### C BC #### [facility] [address] [place] [address] Dr. Raul Pereira MANUAL DIFF REQ NO Normal [facility] Comment on above: Performed By: #### C BC #### [facility] [address] [place] [address] Dr. Raul Pereira MCH (RBC) [Entitic mass] 26.3 pg Critically low 26.7-34.0 [facility] Comment on above: Performed By: #### C BC #### [facility] [address] [place] [address] Dr. Raul Pereira MCHC (RBC) [Mass/Vol] 31.1 g/dL Normal 29.9-35.2 [facility] Comment on above: Performed By: #### C BC #### [facility] [address] [place] [address] Dr. aRul Pereira MCV (RBC) [Entitic vol] 84.4 fL Normal 81.0-99.0 [facility] Comment on above: Performed By: #### C BC #### [facility] [address] [place] [address] Dr. Raul Pereira MONO # 1.0 103/ul Critically high 0.3-0.8 [facility] Comment on above: Performed By: #### C BC #### [facility] [address] [place] [address] Dr. Raul Pereira Monocytes/100 WBC (Bld) 11.8 % Normal 1.7-12.0 [facility] Comment on above: Performed By: #### C BC #### [facility] [address] [place] [address] Dr. Raul Pereira NEUT # 5.0 103/ul Normal 1.4-6.5 [facility] Comment on above: Performed By: #### C BC #### [facility] [address] [place] [address] Dr. Raul Pereira Neutrophils/100 WBC (Bld) 60.1 % Normal 43.0-75.0 [facility] Comment on above: Performed By: #### C BC #### [facility] [address] [place] [address] Dr. Raul Pereira Platelet mean volume (Bld) [Entitic vol] 8.8 fL Critically low 9.5-13.5 [facility] Comment on above: Performed By: #### C BC #### [facility] [address] [place] [address] Dr. Raul Pereira PLT 418 103/ul Normal 150-450 [facility] Comment on above: Performed By: #### C BC #### [facility] [address] [place] [address] Dr. Raul Pereira RBC 4.68 106/ul Normal 4.20-5.40 [facility] Comment on above: Performed By: #### C BC #### [facility] [address] [place] [address] Dr. Raul Pereira WBC 8.3 103/ul Normal 4.0-11.0 [facility] Comment on above: Performed By: #### C BC #### [facility] [address] [place] [address] Dr. Raul Pereira FERRITINon 02-20-2023 Ferritin [Mass/Vol] 15.0 ng/mL Normal 8.0-252.0 [facility] Comment on above: Performed By: #### C BC #### [facility] [address] [address] [address] Raul Pereira XR CSPINE 2_3 VIEWSon [...] by: JESSICA LIPSCOMB Date: 2023-02-19 06:42 Normal [facility] CT LUNG CANCER SCREENINGon 0 02-13-2023 CT [...] by: MEAGHAN SKINNER Date: 2023-02-13 11:02 Normal [facility] ECHOCARDIO M/2D COMPLETEon 0 02-13-2023 ECHOCARDIO M/2D COMPLETE Patient: RHETT MEJIA Exam Date: 02/13/2023 : 1960 Gender:F Ordering : DR NAPOLEON RAHMAN . Admission #: [id number] Family : Order #: [id number] CLICK HERE TO VIEW EXAM ECHOCARDIOGRAM REPORT [...] Marion M.D. on 02/13/2023 at 18:54 Normal [facility] CREATININEon 02-12-2023 Creatinine [Mass/Vol] 0.76 mg/dL Normal 0.55-1.02 [facility] Comment on above: Performed By: #### C BC #### [facility] [address] [address] [address] Raul Pereira EGFR-AF AZERBAIJANI >60 Normal >=60 [facility] Comment on above: Performed By: #### C BC #### [facility] [address] [address] [address] Raul Pereira EGFR-NON AF AZERBAIJANI >60 Normal >=60 [facility] Comment on above: Performed By: #### C BC #### [facility] [address] [address] [address] Raul Pereira MRI BRAIN WO W [...] by: JESSICA LIPSCOMB Date: 2023-02-12 12:37 Normal [facility] US CAROTID ART BILon 023 US CAROTID [...] JESSICA LIPSCOMB Date: 2023-02-12 14:03 Normal [facility] COMPLIANCE DRUG SCREENon PDF . Normal [facility] Comment on above: Performed By: #### C BC #### [facility] [address], [place] [address] Dr. Raul Pereira Summary FINAL Normal [facility] Comment on above: Result Comment: == [...] == Performed By: #### C BC #### [facility] [address] [place] [address] Dr. Raul Pereira CULTURE URINEon 02-02-2023 CULTURE [...] Trimethoprim/Sulfamethoxa zole <=20 S F Normal [facility] Comment on above: Performed By: #### U RCX #### [facility] [address] [place] [address] Dr. Raul Pereira AMMONIAon 01-31-2023 Ammonia (P) [Moles/Vol] 13 umol/L Normal [facility] Comment on above: Performed By: #### A MM ####[facility] [address] [place], [place] [address]Dr. Raul Pereira CBC AUTO DIFFon 01-31-2023 BASO # 0.1 103/ul Normal 0.0-0.1 [facility] Comment on above: Performed By: #### C BC #### [facility] [address] [place] [address] Dr. Raul Pereira Basophils/100 WBC (Bld) 0.6 % Normal 0.2-2.0 [facility] Comment on above: Performed By: #### C BC #### [facility] [address] [place] [address] Dr. Raul Pereira EO # 0.1 103/ul Normal 0.0-0.7 [facility] Comment on above: Performed By: #### C BC #### [facility] [address] [place] [address] Dr. Raul Pereira Eosinophils/100 WBC (Bld) 1.7 % Normal 0.9-7.0 [facility] Comment on above: Performed By: #### C BC #### [facility] [address] [place] [address] Dr. Raul Pereira Erythrocyte distribution width (RBC) [Ratio] 25.9 % Critically high 11.0-15.0 [facility] Comment on above: Result Comment: 2+ a niso Performed By: #### C BC #### [facility] [address] [place] [address] Dr. Raul Pereira Hematocrit (Bld) [Volume fraction] 42.4 % Normal 36.0-48.0 [facility] Comment on above: Performed By: #### C BC #### [facility] [address] [place] [address] Dr. Raul Pereira Hemoglobin (Bld) [Mass/Vol] 13.1 g/dL Normal 12.0-16.0 [facility] Comment on above: Performed By: #### C BC #### [facility] [address] [place] [address] Dr. Raul Pereira IG # 0.02 10e3/ul Normal 0.00-0.03 [facility] Comment on above: Performed By: #### C BC #### [facility] [address] [place] [address] Dr. Raul Pereira IG % 0.2 % Normal 0.0-0.5 [facility] Comment on above: Performed By: #### C BC #### [facility] [address] [place] [address] Dr. Raul Pereira LYMPH # 2.0 103/ul Normal 1.2-3.8 [facility] Comment on above: Performed By: #### C BC #### [facility] [address] [place] [address] Dr. Raul Pereira Lymphocytes/100 WBC (Bld) 24.8 % Normal 20.5-60.0 [facility] Comment on above: Performed By: #### C BC #### [facility] [address] [place] [address] Dr. Raul Pereira MANUAL DIFF REQ NO Normal [facility] Comment on above: Performed By: #### C BC #### [facility] [address] [place] [address] Dr. Raul Pereira MCH (RBC) [Entitic mass] 25.3 pg Critically low 26.7-34.0 [facility] Comment on above: Performed By: #### C BC #### [facility] [address] [place] [address] Dr. Raul Pereira MCHC (RBC) [Mass/Vol] 30.9 g/dL Normal 29.9-35.2 [facility] Comment on above: Performed By: #### C BC #### [facility] [address] [place] [address] Dr. Raul Pereira MCV (RBC) [Entitic vol] 82.0 fL Normal 81.0-99.0 [facility] Comment on above: Performed By: #### C BC #### [facility] [address] [place] [address] Dr. Raul Pereira MONO # 0.7 103/ul Normal 0.3-0.8 [facility] Comment on above: Performed By: #### C BC #### [facility] [address] [place] [address] Dr. Raul Pereira Monocytes/100 WBC (Bld) 8.8 % Normal 1.7-12.0 [facility] Comment on above: Performed By: #### C BC #### [facility] [address] [place] [address] Dr. Raul Pereira NEUT # 5.2 103/ul Normal 1.4-6.5 [facility] Comment on above: Performed By: #### C BC #### [facility] [address] [place] [address] Dr. Raul Pereira Neutrophils/100 WBC (Bld) 63.9 % Normal 43.0-75.0 [facility] Comment on above: Performed By: #### C BC #### [facility] [address] [place] [address] Dr. Raul Pereira Platelet mean volume (Bld) [Entitic vol] 9.2 fL Critically low 9.5-13.5 [facility] Comment on above: Performed By: #### C BC #### [facility] [address] [place] [address] Dr. Raul Pereira PLT 334 103/ul Normal 150-450 [facility] Comment on above: Performed By: #### C BC #### [facility] [address] [place] [address] Dr. Raul Pereira RBC 5.17 106/ul Normal 4.20-5.40 [facility] Comment on above: Performed By: #### C BC #### [facility] [address] [place] [address] Dr. Raul Pereira WBC 8.2 103/ul Normal 4.0-11.0 [facility] Comment on above: Performed By: #### C BC #### [facility] [address] [place] [address] Dr. Raul Pereira SARA - LIPID PROFILEon 2022 CHOL-HDL RATIO NORM SEE BELOW Normal [facility] Comment on above: Result Comment: 3.3 - 4.4 LOW RISK 4.4 - 7.1 AVERAGE RISK 7.1 - 11.0 MODERATE RISK >11.0 HIGH RISK Performed By: #### D ATLIPI ####[facility] [address] [place], [place] [address]Cb. Aranzapetr Pereira Cholesterol [Mass/Vol] 178 mg/dL Normal <=200 [facility] Comment on above: Performed By: #### D ATLIPI ####[facility] [address] [place], [place] [address]Lj. Aranzapetr Pereira Cholesterol in HDL [Mass/Vol] 73 mg/dL Critically high 40-60 [facility] Comment on above: Performed By: #### D ATLIPI ####[facility] [address] [place], [place] [address]Hg. Raul Pereira Cholesterol in LDL [Mass/Vol] 72.0 mg/dL Normal [facility] Comment on above: Performed By: #### D ATLIPI ####[facility] [address] [place], [place] [address]Ga. Raul Pereira Cholesterol.total/C holesterol in HDL [Mass ratio] 2.4 {ratio} Normal [facility] Comment on above: Performed By: #### D ATLIPI ####[facility] [address] [id number]. Raul Pereira HDL NORMAL > or = 60 mg/dl - LO W CARDIOVASCULAR RISK <40 mg/dl - HIGH CARDIOVASCULAR RISK Normal [facility] Comment on above: Performed By: #### D ATLIPI ####[facility] [address] [id number]. Raul Pereira LDL CALC NORMAL SEE BELOW Normal [facility] [place] [facility] Comment on above: Result Comment: <100 mg/dl OPTIMAL 100 - 129 mg/dl NEAR OR ABOVE OPTIMAL 130 - 159 mg/dl BORDERLINE HIGH 160 - 189 mg/dl HIGH >190 mg/dl VERY HIGH Performed By: #### D ATLIPI ####[facility] [address] [id number]. Raul Pereira Triglyceride [Mass/Vol] 165 mg/dL Critically high <=150 [facility] Comment on above: Performed By: #### D ATLIPI ####[facility] [address] [id number]. Raul Pereira VLDL CALC 33.0 mg/dL Normal [facility] Comment on above: Performed By: #### D ATLIPI ####[facility] [address] [address]Dr. Raul Pereira DRUG SCREEN RAPID (URINE)on 01-31-2023 AMP Positive Abnormal NEGATIVE [facility] Comment on above: Performed By: #### C BC #### [facility] [address] [address] [address] Raul Pereira BAR Negative Normal NEGATIVE [facility] Comment on above: Performed By: #### C BC #### [facility] [address] [address] [address] Ralu Pereira BUP Positive Abnormal NEGATIVE [facility] Comment on above: Performed By: #### C BC #### [facility] [address] [place] [address] Dr. Raul Pereira BZO Negative Normal NEGATIVE [facility] Comment on above: Performed By: #### C BC #### [facility] [address] [place] [address] Dr. Raul Pereira RADHA Negative Normal NEGATIVE [facility] Comment on above: Performed By: #### C BC #### [facility] [address] [place] [address] Dr. Raul Pereira CUT-OFFS SEE BELOW Normal [facility] Comment on above: Result Comment: AMP (Amphetamine): 500ng/mL, BAR (Barbituates): 200 ng/mL, BZO (Benzodiazepines): 150 ng/mL, BUP (Buprenorphine): 10 ng/mL, RADHA (Cocaine): 150 ng/mL, mAMP (Methamphetamine): 500 ng/mL, MTD (Methadone): 200 ng/mL, OPI (Opiates): 100 ng/mL, OXY (Oxycodone): 100 ng/mL, PCP (Phencyclidine): 25 ng/mL, PPX (Propoxyphene): 300 ng/mL, THC (Cannabinoids): 50 ng/mL, TCA (Trycyclic Antidepressants): 300 ng/mL Performed By: #### C BC #### [facility] [address] [place] [address] Dr. Raul Pereira DRUG CUT HEADER DRUG CLASS TEST SYST EM CUT-OFF CONCENTRATIONS ARE FOLLOWS: Normal [facility] Comment on above: Performed By: #### C BC #### [facility] [address] [place] [address] Dr. Raul Pereira mAMP Negative Normal NEGATIVE [facility] Comment on above: Performed By: #### C BC #### [facility] [address] [place] [address] Dr. Raul Pereira MTD Negative Normal NEGATIVE [facility] Comment on above: Performed By: #### C BC #### [facility] [address] [place] [address] Dr. Raul Pereira OPI Negative Normal NEGATIVE [facility] Comment on above: Performed By: #### C BC #### [facility] [address] [place] [address] Dr. Raul Pereira OXY Negative Normal NEGATIVE [facility] Comment on above: Performed By: #### C BC #### [facility] [address] [place] [address] Dr. Raul Pereira PCP Negative Normal NEGATIVE [facility] Comment on above: Performed By: #### C BC #### [facility] [address] [place] [address] Dr. Raul Pereira PPX Negative Normal NEGATIVE [facility] Comment on above: Performed By: #### C BC #### [facility] [address] [place] [address] Dr. Raul Pereira TCA Positive Abnormal NEGATIVE [facility] Comment on above: Performed By: #### C BC #### [facility] [address] [place] [address] Dr. Raul Pereira THC Negative Normal NEGATIVE [facility] Comment on above: Performed By: #### C BC #### [facility] [address] [place] [address] Dr. Raul Pereira FREE THYROXINE INDEX T7on FTI 2.89 Normal 1.30-4.50 [facility] Comment on above: Performed By: #### C VDTBH #### [facility] [address] [address] [address] Raul Pereira T3U 39.0 % Normal 30.0-39.0 [facility] Comment on above: Performed By: #### C VDTBH #### [facility] [address] [address] [address] Raul Pereira T4 [Mass/Vol] 7.40 ug/dL Normal 4.80-13.90 [facility] Comment on above: Performed By: #### C VDTBH #### [facility] [address] [address] [address] Raul Pereira GLYCOHEMOGLOBIN A1Con 2022 ADA RECOMMENDATION SEE BELOW Normal [facility] Comment on above: Result Comment: ADA RECOMMENDED LIMIT 4.0 - 6.0 ADA THERAPEUTIC TARGET < 7.0 ACTION SUGGESTED > 7.0 Performed By: #### D ATA1C ####[facility] [address] [address]Dr. Raul Pereira Glucose [Mass/Vol] 108 mg/dL Normal [facility] Comment on above: Performed By: #### D ATA1C ####[facility] [address] [address]Dr. Raul Pereira HbA1c (Bld) [Mass fraction] 5.4 % Normal 4.5-6.2 [facility] Comment on above: Performed By: #### D ATA1C ####[facility] [address] [address]Dr. Raul Pereira IRONon 01-31-2023 Iron [Mass/Vol] 225.0 ug/dL Critically high 50.0-170.0 [facility] Comment on above: Performed By: #### C VDTBH #### [facility] [address] [address] [address] Raul Pereira PROF 14(COMP METB)on 023 Albumin [Mass/Vol] 3.8 g/dL Normal 3.4-5.0 [facility] Comment on above: Performed By: #### C VDTBH #### [facility] [address] [address] [address] Raul Pereira Albumin/Globulin [Mass ratio] 1.2 {ratio} Normal [facility] Comment on above: Performed By: #### C VDTBH #### [facility] [address] [place] [address] Dr. Raul Pereira ALP [Catalytic activity/Vol] 77 U/L Normal 46-116 [facility] Comment on above: Performed By: #### C VDTBH #### [facility] [address] [place] [address] Dr. Raul Pereira ALT [Catalytic activity/Vol] 19 U/L Normal 14-59 [facility] Comment on above: Performed By: #### C VDTBH #### [facility] [address] [place] [address] Dr. Raul Pereira Anion gap [Moles/Vol] 12.9 mmol/L Normal [facility] Comment on above: Performed By: #### C VDTBH #### [facility] [address] [place] [address] Dr. Raul Pereira AST [Catalytic activity/Vol] 17 U/L Normal 15-37 [facility] Comment on above: Performed By: #### C VDTBH #### [facility] [address] [place] [address] Dr. Raul Pereira Bilirubin [Mass/Vol] 0.3 mg/dL Normal 0.2-1.0 [facility] Comment on above: Performed By: #### C VDTBH #### [facility] [address] [place] [address] Dr. Raul Pereira Calcium [Mass/Vol] 8.9 mg/dL Normal 8.5-10.1 [facility] Comment on above: Performed By: #### C VDTBH #### [facility] [address] [place] [address] Dr. Raul Pereira Chloride [Moles/Vol] 101 mmol/L Normal 98-107 [facility] Comment on above: Performed By: #### C VDTBH #### [facility] [address] [place] [address] Dr. Raul Pereira CO2 [Moles/Vol] 28.5 mmol/L Normal 21.0-32.0 [facility] Comment on above: Performed By: #### C VDTBH #### [facility] [address] [place] [address] Dr. Raul Pereira Creatinine [Mass/Vol] 0.59 mg/dL Normal 0.55-1.02 [facility] Comment on above: Performed By: #### C VDTBH #### [facility] [address] [address] [address] Raul Pereira EGFR-AF AZERBAIJANI >60 Normal >=60 [facility] Comment on above: Performed By: #### C VDTBH #### [facility] [address] [place] [address] Dr. Raul Pereira EGFR-NON AF AZERBAIJANI >60 Normal >=60 [facility] Comment on above: Performed By: #### C VDTBH #### [facility] [address] [place] [address] Dr. Raul Pereira Globulin (S) [Mass/Vol] 3.1 g/dL Normal [facility] Comment on above: Performed By: #### C VDTBH #### [facility] [address] [place] [address] Dr. Raul Pereira Glucose [Mass/Vol] 84 mg/dL Normal 74-106 The [facility] Comment on above: Performed By: #### C VDTBH #### [facility] [address] [place] [address] Dr. Raul Pereira Potassium [Moles/Vol] 4.4 mmol/L Normal 3.5-5.1 [facility] Comment on above: Performed By: #### C VDTBH #### [facility] [address] [place] [address] Dr. Raul Pereira Protein [Mass/Vol] 6.9 g/dL Normal 6.4-8.2 [facility] Comment on above: Performed By: #### C VDTBH #### [facility] [address] [place] [address] Dr. Raul Pereira Sodium [Moles/Vol] 138 mmol/L Normal 136-145 [facility] Comment on above: Performed By: #### C VDTBH #### [facility] [address] [place] [address] Dr. Raul Pereira Urea nitrogen [Mass/Vol] 11.0 mg/dL Normal 7.0-18.0 [facility] Comment on above: Performed By: #### C VDTBH #### [facility] [address] [place] [address] Dr. Raul Pereira Urea nitrogen/Creatinine [Mass ratio] 18.6 mg/mg Normal [facility] Comment on above: Performed By: #### C VDTBH #### [facility] [address] [place] [address] Dr. Raul Pereira TSHon 01-31-2023 TSH 2.354 uIU/mL Normal 0.358-3.740 [facility] Comment on above: Performed By: #### C VDTBH #### [facility] [address] [place] [address] Dr. Raul Pereira UA RANDOM W/MICROSCOPICon BACTERIA NONE SEEN Normal NONE SEEN [facility] Comment on above: Performed By: #### C BC #### [facility] [address] [place] [address] Dr. Raul Pereira Bilirubin Ql (U) Negative Normal NEGATIVE [facility] Comment on above: Performed By: #### C BC #### [facility] [address] [place] [address] Dr. Raul Pereira CAST NONE SEEN Normal NONE SEEN [facility] Comment on above: Performed By: #### C BC #### [facility] [address] [place] [address] Dr. Raul Pereira Clarity (U) CLEAR Normal CLEAR [facility] Comment on above: Performed By: #### C BC #### [facility] [address] [place] [address] Dr. Raul Preeira Color (U) YELLOW Normal YELLOW [facility] Comment on above: Performed By: #### C BC #### [facility] [address] [place] [address] Dr. Raul Pereira Crystals LM Nom (Urine sed) NONE SEEN Normal NONE SEEN [facility] Comment on above: Performed By: #### C BC #### [facility] [address] [place] [address] Dr. Raul Pereira Epithelial cells LM Ql (Urine sed) NONE SEEN Normal NONE SEEN /RARE [facility] Comment on above: Performed By: #### C BC #### [facility] [address] [place] [address] Dr. Raul Pereira Glucose Ql (U) Negative Normal NEGATIVE [facility] Comment on above: Performed By: #### C BC #### [facility] [address] [place] [address] Dr. Raul Pereira Hemoglobin Ql (U) Negative Normal NEGATIVE The [facility] Comment on above: Performed By: #### C BC #### [facility] [address] [place] [address] Dr. Raul Pereira Ketones Ql (U) Negative Normal NEGATIVE [facility] Comment on above: Performed By: #### C BC #### [facility] [address] [place] [address] Dr. Raul Pereira LEUKOCYTES Negative Normal NEGATIVE [facility] Comment on above: Performed By: #### C BC #### [facility] [address] [place] [address] Dr. Raul Pereira MUCOUS NONE SEEN Normal NONE SEEN [facility] Comment on above: Performed By: #### C BC #### [facility] [address] [place] [address] Dr. Raul Pereira Nitrite Ql (U) Negative Normal NEGATIVE [facility] Comment on above: Performed By: #### C BC #### [facility] [address] [place] [address] Dr. Raul Pereira pH (U) 5.5 [pH] Normal 5-9 [facility] Comment on above: Performed By: #### C BC #### [facility] [address] [place] [address] Dr. Raul Pereira RBC NONE SEEN Abnormal 0-2 [facility] Comment on above: Performed By: #### C BC #### [facility] [address] [place] [address] Dr. Raul Pereira SPEC GRAVITY 1.030 Abnormal 1.005-<=1.02 5 [facility] Comment on above: Performed By: #### C BC #### [facility] [address] [place] [address] Dr. Raul Pereira UA PROTEIN Negative Normal NEGATIVE/ TRACE [facility] Comment on above: Performed By: #### C BC #### [facility] [address] [place] [address] Dr. Raul Pereira Urobilinogen Qn (U) 0.2 {Farrukh'U}/dL Normal 0.2 - 1. 0 [facility] Comment on above: Performed By: #### C BC #### [facility] [address] [place] [address] Dr. Raul Pereira WBC NONE SEEN Normal NONE SEEN [facility] Comment on above: Performed By: #### C BC #### [facility] [address] [place] [address] Dr. Raul Pereira VITAMIN D 25 OHon 01-31-2023 VIT D 25-OH 40.8 ng/mL Normal [facility] Comment on above: Performed By: #### C VDTBH #### [facility] [address] [place] [address] Dr. Raul Pereira VIT D RANGES SEE BELOW Normal [facility] Comment on above: Result Comment: <20 ng/mL Vit D deficient 20 - <30 ng/mL Vit D insufficient 30 - 100 ng/mL Vit D sufficient >100 ng/mL Potential Toxicity Performed By: #### C VDTBH #### [facility] [address] [place] [address] Dr. Raul Pereira VC VENOUS REFLUX ALEXUS LMTon 0 01-30-2023 VC VENOUS REFLUX ALEXUS LMT Patient: RHETT MEJIA Exam Date: 01/30/2023 : 1960 Gender:F Ordering : DR NAPOLEON RAHMAN . Admission #: [id number] Family : Order #: [id number] CLICK HERE TO VIEW EXAM RADIOLOGY REPORT [...] thrombus. Compressibility: Normal. Flow: Deep venous reflux. Lighting Designer:Mid/medial lower leg 4.3 mm with 0.8s reflux. [...] great saphenous vein along with dilated, incompetent receiving associate veins and numerous branch saphenous varicosities. 2. 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 Proximal closer with endovenous laser ablation may be beneficial followed by treatment with microfoam chemical ablation. Incompetent lower leg receiving associate vein which may contribute to patient's reflux; laser ablation is recommended. Dilated, incompetent branch saphenous varicosities which would benefit from microfoam chemical ablation. 3. Consultation for endovenous ablation is recommended. Dictated by: Jessica Lipscomb M.D. on 01/31/2023 at 09:46 Approved by: Jessica Lipscomb M.D. on 01/31/2023 at 09:51 Normal [facility] CBC AUTO DIFFon 01-13-2023 BASO # 0.0 103/ul Normal 0.0-0.1 [facility] Comment on above: Performed By: #### C BC #### [facility] [address] [address] [address] Raul Pereira Basophils/100 WBC (Bld) 0.5 % Normal 0.2-2.0 [facility] Comment on above: Performed By: #### C BC #### [facility] [address], [place] [address] Dr. Raul Pereira EO # 0.1 103/ul Normal 0.0-0.7 [facility] Comment on above: Performed By: #### C BC #### [facility] [address] [place] [address] Dr. Raul Pereira Eosinophils/100 WBC (Bld) 1.7 % Normal 0.9-7.0 [facility] Comment on above: Performed By: #### C BC #### [facility] [address] [place] [address] Dr. Raul Pereira Erythrocyte distribution width (RBC) [Ratio] 18.4 % Critically high 11.0-15.0 [facility] Comment on above: Performed By: #### C BC #### [facility] [address] [place] [address] Dr. Raul Pereira Hematocrit (Bld) [Volume fraction] 33.1 % Critically low 36.0-48.0 [facility] Comment on above: Performed By: #### C BC #### [facility] [address] [place] [address] Dr. Raul Pereira Hemoglobin (Bld) [Mass/Vol] 10.4 g/dL Critically low 12.0-16.0 [facility] Comment on above: Performed By: #### C BC #### [facility] [address] [place] [address] Dr. Raul Pereira IG # 0.03 10e3/ul Normal 0.00-0.03 [facility] Comment on above: Performed By: #### C BC #### [facility] [address] [place] [address] Dr. Raul Pereira IG % 0.4 % Normal 0.0-0.5 [facility] Comment on above: Performed By: #### C BC #### [facility] [address] [place] [address] Dr. Raul Pereira LYMPH # 1.9 103/ul Normal 1.2-3.8 [facility] Comment on above: Performed By: #### C BC #### [facility] [address] [place] [address] Dr. Raul Pereira Lymphocytes/100 WBC (Bld) 25.2 % Normal 20.5-60.0 [facility] Comment on above: Performed By: #### C BC #### [facility] [address] [place] [address] Dr. Raul Pereira MANUAL DIFF REQ NO Normal [facility] Comment on above: Performed By: #### C BC #### [facility] [address] [place] [address] Dr. Raul Pereira MCH (RBC) [Entitic mass] 24.1 pg Critically low 26.7-34.0 [facility] Comment on above: Performed By: #### C BC #### [facility] [address] [place] [address] Dr. Raul Pereira MCHC (RBC) [Mass/Vol] 31.4 g/dL Normal 29.9-35.2 [facility] Comment on above: Performed By: #### C BC #### [facility] [address] [place] [address] Dr. Raul Pereira MCV (RBC) [Entitic vol] 76.6 fL Critically low 81.0-99.0 [facility] Comment on above: Performed By: #### C BC #### [facility] [address] [place] [address] Dr. Raul Pereira MONO # 0.8 103/ul Normal 0.3-0.8 [facility] Comment on above: Performed By: #### C BC #### [facility] [address] [place] [address] Dr. Raul Pereiar Monocytes/100 WBC (Bld) 10.7 % Normal 1.7-12.0 [facility] Comment on above: Performed By: #### C BC #### [facility] [address] [place] [address] Dr. Raul Pereira NEUT # 4.7 103/ul Normal 1.4-6.5 [facility] Comment on above: Performed By: #### C BC #### [facility] [address] [place] [address] Dr. Raul Pereira Neutrophils/100 WBC (Bld) 61.5 % Normal 43.0-75.0 [facility] Comment on above: Performed By: #### C BC #### [facility] [address], [place] [address] Dr. Raul Pereira Platelet mean volume (Bld) [Entitic vol] 8.6 fL Critically low 9.5-13.5 [facility] Comment on above: Performed By: #### C BC #### [facility] [address] [place], [place] [address] Dr. Raul Pereira PLT 461 103/ul Critically high 150-450 [facility] Comment on above: Performed By: #### C BC #### [facility] [address], [place] [address] Dr. Raul Pereira RBC 4.32 106/ul Normal 4.20-5.40 [facility] Comment on above: Performed By: #### C BC #### [facility] [address] [place], [place] [address] Dr. Raul Pereira WBC 7.6 103/ul Normal 4.0-11.0 [facility] Comment on above: Performed By: #### C BC #### [facility] [address] [place], [place] [address] Dr. Raul Pereira FREE THYROXINE INDEX T7on FTI 2.10 Normal 1.30-4.50 [facility] Comment on above: Performed By: #### T 7, CMP, TSH, LIPID ####[facility] [address] [place], [place] [address]HmDr. Raul Pereira T3U 35.0 % Normal 30.0-39.0 [facility] Comment on above: Performed By: #### T 7, CMP, TSH, LIPID ####[facility] [address] [place], [place] [address]HtDr. Raul Pereira T4 [Mass/Vol] 6.00 ug/dL Normal 4.80-13.90 [facility] Comment on above: Performed By: #### T 7, CMP, TSH, LIPID ####[facility] [address] [place], [place] [address]XqDr. Raul Pereira GLYCOHEMOGLOBIN A1Con 2022 ADA RECOMMENDATION SEE BELOW Normal [facility] Comment on above: Result Comment: ADA RECOMMENDED LIMIT 4.0 - 6.0 ADA THERAPEUTIC TARGET < 7.0 ACTION SUGGESTED > 7.0 Performed By: #### C VDTBH #### [facility] [address] [address] [address] Raul Pereira Glucose [Mass/Vol] 108 mg/dL Normal [facility] Comment on above: Performed By: #### C VDTBH #### [facility] [address] [address] [address] Raul Pereira HbA1c (Bld) [Mass fraction] 5.4 % Normal 4.5-6.2 [facility] Comment on above: Performed By: #### C VDTBH #### [facility] [address] [address] [address] Raul Pereira IRON AND TIBCon 01-13-2023 % SATURATION 3.5 % Normal [facility] Comment on above: Performed By: #### F ETIBC, B12FOL, VITAD ####[facility] [address] [address]Dr. Raul Pereira Iron [Mass/Vol] 18.0 ug/dL Critically low 50.0-170.0 [facility] Comment on above: Performed By: #### F ETIBC, B12FOL, VITAD ####[facility] [address] [address]Dr. Raul Pereira TIBC DIRECT 513.0 ug/dL Critically high 250.0-450.0 [facility] Comment on above: Performed By: #### F ETIBC, B12FOL, VITAD ####[facility] [address] [address]DrLeann Pereira LIPID PROFILEon 01-13-2023 CHOL-HDL RATIO NORM SEE BELOW Normal [facility] Comment on above: Result Comment: 3.3 - 4.4 LOW RISK 4.4 - 7.1 AVERAGE RISK 7.1 - 11.0 MODERATE RISK >11.0 HIGH RISK Performed By: #### T 7, CMP, TSH, LIPID ####[facility] [address] [id number]. Raul Pereira Cholesterol [Mass/Vol] 190 mg/dL Normal <=200 [facility] Comment on above: Performed By: #### T 7, CMP, TSH, LIPID ####[facility] [address] [id number]. Raul Pereira Cholesterol in HDL [Mass/Vol] 71 mg/dL Critically high 40-60 [facility] Comment on above: Performed By: #### T 7, CMP, TSH, LIPID ####[facility] [address] [id number]. Raul Pereira Cholesterol in LDL [Mass/Vol] 104.6 mg/dL Normal [facility] Comment on above: Performed By: #### T 7, CMP, TSH, LIPID ####[facility] [address] [id number]. Raul Pereira Cholesterol.total/C holesterol in HDL [Mass ratio] 2.7 {ratio} Normal [facility] Comment on above: Performed By: #### T 7, CMP, TSH, LIPID ####[facility] [address] [id number]. Raul Pereira HDL NORMAL > or = 60 mg/dl - LO W CARDIOVASCULAR RISK <40 mg/dl - HIGH CARDIOVASCULAR RISK Normal [facility] Comment on above: Performed By: #### T 7, CMP, TSH, LIPID ####[facility] [address] [id number]. Raul Pereira LDL CALC NORMAL SEE BELOW Normal [facility] [place] [facility] Comment on above: Result Comment: <100 mg/dl OPTIMAL 100 - 129 mg/dl NEAR OR ABOVE OPTIMAL 130 - 159 mg/dl BORDERLINE HIGH 160 - 189 mg/dl HIGH >190 mg/dl VERY HIGH Performed By: #### T 7, CMP, TSH, LIPID ####[facility] [address] [id number]. Raul Pereira Triglyceride [Mass/Vol] 72 mg/dL Normal <=150 [facility] Comment on above: Performed By: #### T 7, CMP, TSH, LIPID ####[facility] [address] [id number]. Raul Pereira VLDL CALC 14.4 mg/dL Normal [facility] Comment on above: Performed By: #### T 7, CMP, TSH, LIPID ####[facility] [address] [address]Dr. Raul Pereira PROF 14(COMP METB)on 023 Albumin [Mass/Vol] 3.5 g/dL Normal 3.4-5.0 [facility] Comment on above: Performed By: #### T 7, CMP, TSH, LIPID ####[facility] [address] [id number]. Raul Pereira Albumin/Globulin [Mass ratio] 1.1 {ratio} Normal [facility] Comment on above: Performed By: #### T 7, CMP, TSH, LIPID ####[facility] [address] [address]Dr. Raul Pereira ALP [Catalytic activity/Vol] 92 U/L Normal 46-116 [facility] Comment on above: Performed By: #### T 7, CMP, TSH, LIPID ####[facility] [address] [address]Dr. Raul Pereira ALT [Catalytic activity/Vol] 17 U/L Normal 14-59 [facility] Comment on above: Performed By: #### T 7, CMP, TSH, LIPID ####[facility] [address] [address]Dr. Raul Pereira Anion gap [Moles/Vol] 10.0 mmol/L Normal [facility] Comment on above: Performed By: #### T 7, CMP, TSH, LIPID ####[facility] [address] [id number]. Raul Pereira AST [Catalytic activity/Vol] 17 U/L Normal 15-37 [facility] Comment on above: Performed By: #### T 7, CMP, TSH, LIPID ####[facility] [address] [id number]. Raul Pereira Bilirubin [Mass/Vol] 0.2 mg/dL Normal 0.2-1.0 [facility] Comment on above: Performed By: #### T 7, CMP, TSH, LIPID ####[facility] [address] [address]Dr. Raul Pereira Calcium [Mass/Vol] 8.8 mg/dL Normal 8.5-10.1 [facility] Comment on above: Performed By: #### T 7, CMP, TSH, LIPID ####[facility] [address] [place], [place] [address]Dr. Raul Pereira Chloride [Moles/Vol] 101 mmol/L Normal 98-107 [facility] Comment on above: Performed By: #### T 7, CMP, TSH, LIPID ####[facility] [address] [place], [place] [address]Dr. Raul Pereira CO2 [Moles/Vol] 29.4 mmol/L Normal 21.0-32.0 [facility] Comment on above: Performed By: #### T 7, CMP, TSH, LIPID ####[facility] [address] [place], [place] [address]Dr. Raul Pereira Creatinine [Mass/Vol] 0.50 mg/dL Critically low 0.55-1.02 [facility] Comment on above: Performed By: #### T 7, CMP, TSH, LIPID ####[facility] [address] [address]Dr. Raul Pereira EGFR-AF AZERBAIJANI >60 Normal >=60 [facility] Comment on above: Performed By: #### T 7, CMP, TSH, LIPID ####[facility] [address] [place], [place] [address]Dr. Raul Pereira EGFR-NON AF AZERBAIJANI >60 Normal >=60 [facility] Comment on above: Performed By: #### T 7, CMP, TSH, LIPID ####[facility] [address] [address]Dr. Raul Pereira Globulin (S) [Mass/Vol] 3.2 g/dL Normal [facility] Comment on above: Performed By: #### T 7, CMP, TSH, LIPID ####[facility] [address] [id number]. Raul Pereira Glucose [Mass/Vol] 88 mg/dL Normal 74-106 [facility] Comment on above: Performed By: #### T 7, CMP, TSH, LIPID ####[facility] [address] [address]Dr. Raul Pereira Potassium [Moles/Vol] 4.4 mmol/L Normal 3.5-5.1 [facility] Comment on above: Performed By: #### T 7, CMP, TSH, LIPID ####[facility] [address] [address]Dr. Raul Pereira Protein [Mass/Vol] 6.7 g/dL Normal 6.4-8.2 [facility] Comment on above: Performed By: #### T 7, CMP, TSH, LIPID ####[facility] [address] [place] [address]Dr. Raul Pereira Sodium [Moles/Vol] 136 mmol/L Normal 136-145 [facility] Comment on above: Performed By: #### T 7, CMP, TSH, LIPID ####[facility] [address] [address]Dr. Raul Pereira Urea nitrogen [Mass/Vol] 12.0 mg/dL Normal 7.0-18.0 [facility] Comment on above: Performed By: #### T 7, CMP, TSH, LIPID ####[facility] [address] [address]Dr. Raul Pereira Urea nitrogen/Creatinine [Mass ratio] 24.0 mg/mg Normal [facility] Comment on above: Performed By: #### T 7, CMP, TSH, LIPID ####[facility] [address] [address]Dr. Raul Pereira TSHon 01-13-2023 TSH 1.623 uIU/mL Normal 0.358-3.740 [facility] Comment on above: Performed By: #### T 7, CMP, TSH, LIPID ####[facility] [address] [address]Dr. Raul Pereira VIT B12 AND FOLATEon 023 Cobalamin (Vitamin B12) [Mass/Vol] 872.0 pg/mL Normal 193.0-986.0 [facility] Comment on above: Performed By: #### F ETIBC, B12FOL, VITAD ####[facility] [address] [place] [address]Dr. Raul Pereira FOLATE 21.20 ng/mL Normal 8.60-58.90 [facility] Comment on above: Performed By: #### F ETIBC, B12FOL, VITAD ####[facility] [address] [place] [address]Dr. Raul Pereira VITAMIN D 25 OHon 01-13-2023 VIT D 25-OH 40.6 ng/mL Normal [facility] Comment on above: Performed By: #### F ETIBC, B12FOL, VITAD ####[facility] [id number] [address]Dr. Raul Pereira VIT D RANGES SEE BELOW Normal [facility] Comment on above: Result Comment: <20 ng/mL Vit D deficient 20 - <30 ng/mL Vit D insufficient 30 - 100 ng/mL Vit D sufficient >100 ng/mL Potential Toxicity Performed By: #### F ETIBC, B12FOL, VITAD ####[facility] [address] [address]Dr. Raul Pereira CBC AUTO DIFFon 01-10-2023 BASO # 0.1 103/ul Normal 0.0-0.1 [facility] Comment on above: Performed By: #### C VDTBH #### [facility] [address] [address] [address] Raul Pereira Basophils/100 WBC (Bld) 0.6 % Normal 0.2-2.0 [facility] Comment on above: Performed By: #### C VDTBH #### [facility] [address] [address] [address] Raul Pereira EO # 0.1 103/ul Normal 0.0-0.7 [facility] Comment on above: Performed By: #### C VDTBH #### [facility] [address] [place] [address] Dr. Raul Pereira Eosinophils/100 WBC (Bld) 1.3 % Normal 0.9-7.0 [facility] Comment on above: Performed By: #### C VDTBH #### [facility] [address] [place] [address] Dr. Raul Pereira Erythrocyte distribution width (RBC) [Ratio] 18.4 % Critically high 11.0-15.0 [facility] Comment on above: Performed By: #### C VDTBH #### [facility] [address] [place] [address] Dr. Raul Pereira Hematocrit (Bld) [Volume fraction] 37.8 % Normal 36.0-48.0 [facility] Comment on above: Performed By: #### C VDTBH #### [facility] [address] [place] [address] Dr. Raul Pereira Hemoglobin (Bld) [Mass/Vol] 11.6 g/dL Critically low 12.0-16.0 [facility] Comment on above: Performed By: #### C VDTBH #### [facility] [address] [place] [address] Dr. Raul Pereira IG # 0.02 10e3/ul Normal 0.00-0.03 [facility] Comment on above: Performed By: #### C VDTBH #### [facility] [address] [place] [address] Dr. Raul Pereira IG % 0.3 % Normal 0.0-0.5 [facility] Comment on above: Performed By: #### C VDTBH #### [facility] [address] [place] [address] Dr. Raul Pereira LYMPH # 1.7 103/ul Normal 1.2-3.8 [facility] Comment on above: Performed By: #### C VDTBH #### [facility] [address] [place] [address] Dr. Raul Pereira Lymphocytes/100 WBC (Bld) 21.0 % Normal 20.5-60.0 [facility] Comment on above: Performed By: #### C VDTBH #### [facility] [address] [place] [address] Dr. Raul Pereira MANUAL DIFF REQ NO Normal [facility] Comment on above: Performed By: #### C VDTBH #### [facility] [address] [place] [address] Dr. Raul Pereira MCH (RBC) [Entitic mass] 24.1 pg Critically low 26.7-34.0 [facility] Comment on above: Performed By: #### C VDTBH #### [facility] [address] [place] [address] Dr. Raul Pereira MCHC (RBC) [Mass/Vol] 30.7 g/dL Normal 29.9-35.2 [facility] Comment on above: Performed By: #### C VDTBH #### [facility] [address] [place] [address] Dr. Raul Pereira MCV (RBC) [Entitic vol] 78.6 fL Critically low 81.0-99.0 [facility] Comment on above: Performed By: #### C VDTBH #### [facility] [address] [place] [address] Dr. Raul Pereira MONO # 0.6 103/ul Normal 0.3-0.8 [facility] Comment on above: Performed By: #### C VDTBH #### [facility] [address] [place] [address] Dr. Raul Pereira Monocytes/100 WBC (Bld) 7.5 % Normal 1.7-12.0 [facility] Comment on above: Performed By: #### C VDTBH #### [facility] [address] [place] [address] Dr. Raul Pereira NEUT # 5.4 103/ul Normal 1.4-6.5 [facility] Comment on above: Performed By: #### C VDTBH #### [facility] [address] [place] [address] Dr. Raul Pereira Neutrophils/100 WBC (Bld) 69.3 % Normal 43.0-75.0 [facility] Comment on above: Performed By: #### C VDTBH #### [facility] [address] [address] [address] Raul Pereira Platelet mean volume (Bld) [Entitic vol] 9.0 fL Critically low 9.5-13.5 [facility] Comment on above: Performed By: #### C VDTBH #### [facility] [id number] Raul Pereira PLT 516 103/ul Critically high 150-450 [facility] Comment on above: Performed By: #### C VDTBH #### [facility] [address] [place] [address] Dr. Raul Pereira RBC 4.81 106/ul Normal 4.20-5.40 [facility] Comment on above: Performed By: #### C VDTBH #### [facility] [address] [place] [address] Dr. Raul Pereira WBC 7.8 103/ul Normal 4.0-11.0 [facility] Comment on above: Performed By: #### C VDTBH #### [facility] [address] [place] [address] Dr. Raul Pereira CULTURE BLOODon 01-10-2023 Microscopic examination of blood, culture Culture Observations: NO GROWTH AT 5 DAYS. Normal [facility] Comment on above: Performed By: #### B [id number] #### [facility] [address] [place], [place] [id number] Dr. Raul Pereira Microscopic examination of blood, culture Culture Observations: NO GROWTH AT 5 DAYS. Normal [facility] Comment on above: Performed By: #### B LDCX1 ####[facility] [address] [id number]. Raul Pereira PROF 14(COMP METB)on 023 Albumin [Mass/Vol] 3.7 g/dL Normal 3.4-5.0 [facility] Comment on above: Performed By: #### C BC #### [facility] [address] [place] [address] Dr. Raul Pereira Albumin/Globulin [Mass ratio] 0.9 {ratio} Normal [facility] Comment on above: Performed By: #### C BC #### [facility] [address] [place] [address] Dr. Raul Pereira ALP [Catalytic activity/Vol] 105 U/L Normal 46-116 [facility] Comment on above: Performed By: #### C BC #### [facility] [address] [place] [address] Dr. Raul Pereira ALT [Catalytic activity/Vol] 18 U/L Normal 14-59 [facility] Comment on above: Performed By: #### C BC #### [facility] [address] [place] [address] Dr. Raul Pereira Anion gap [Moles/Vol] 10.8 mmol/L Normal [facility] Comment on above: Performed By: #### C BC #### [facility] [address] [place] [address] Dr. Raul Pereira AST [Catalytic activity/Vol] 21 U/L Normal 15-37 [facility] Comment on above: Performed By: #### C BC #### [facility] [address] [place] [address] Dr. Raul Pereira Bilirubin [Mass/Vol] 0.3 mg/dL Normal 0.2-1.0 [facility] Comment on above: Performed By: #### C BC #### [facility] [address] [place] [address] Dr. Raul Pereira Calcium [Mass/Vol] 9.1 mg/dL Normal 8.5-10.1 [facility] Comment on above: Performed By: #### C BC #### [facility] [address] [place] [address] Dr. Raul Pereira Chloride [Moles/Vol] 100 mmol/L Normal 98-107 [facility] Comment on above: Performed By: #### C BC #### [facility] [address] [place] [address] Dr. Raul Pereira CO2 [Moles/Vol] 30.8 mmol/L Normal 21.0-32.0 [facility] Comment on above: Performed By: #### C BC #### [facility] [address] [address] [address] Raul Pereira Creatinine [Mass/Vol] 0.58 mg/dL Normal 0.55-1.02 [facility] Comment on above: Performed By: #### C BC #### [facility] [address] [address] [address] Raul Pereira EGFR-AF AZERBAIJANI >60 Normal >=60 [facility] Comment on above: Performed By: #### C BC #### [facility] [address] [address] [address] Raul Pereira EGFR-NON AF AZERBAIJANI >60 Normal >=60 [facility] Comment on above: Performed By: #### C BC #### [facility] [address] [place] [address] Dr. Raul Pereira Globulin (S) [Mass/Vol] 4.1 g/dL Normal [facility] Comment on above: Performed By: #### C BC #### [facility] [address] [place] [address] Dr. Raul Pereira Glucose [Mass/Vol] 86 mg/dL Normal 74-106 [facility] Comment on above: Performed By: #### C BC #### [facility] [address] [place] [address] Dr. Raul Pereira Potassium [Moles/Vol] 4.6 mmol/L Normal 3.5-5.1 [facility] Comment on above: Performed By: #### C BC #### [facility] [address] [place] [address] Dr. Raul Pereira Protein [Mass/Vol] 7.8 g/dL Normal 6.4-8.2 [facility] Comment on above: Performed By: #### C BC #### [facility] [address] [place] [address] Dr. Raul Pereira Sodium [Moles/Vol] 137 mmol/L Normal 136-145 [facility] Comment on above: Performed By: #### C BC #### [facility] [address], [place] [address] Dr. Raul Pereira Urea nitrogen [Mass/Vol] 9.0 mg/dL Normal 7.0-18.0 [facility] Comment on above: Performed By: #### C BC #### [facility] [address], [place] [address] Dr. Raul Pereira Urea nitrogen/Creatinine [Mass ratio] 15.5 mg/mg Normal [facility] Comment on above: Performed By: #### C BC #### [facility] [address], [place] [address] Dr. Raul Pereira US PREMA DOP LEG [...] JESSICA LIPSCOMB Date: 2023-01-10 10:43 Normal [facility]18 SARS-CoV-2 (COVID-19) RNA IMELDA+probe Ql (Unsp spec) Not detected Normal NOT DETECTED [facility] Comment on above: Result Comment: This test is not yet approved or cleared by the [place] FDA. When there are no FDA-approved or cleared tests available, and other criteria are met, FDA can make tests available under an emergency access mechanism called an Emergency Use Authorization (EUA). The EUA for this test is supported by the [place] of Health and Human Service's (HHS's) declaration [...] SARS-CoV-2. Performed By: #### C VDTBH #### [facility] [address] [place] [address] Dr. Raul Pereira CALCIUMon 12-03-2022 Calcium [Mass/Vol] 9.7 mg/dL Normal 8.5-10.1 [facility] Comment on above: Performed By: #### C VDTBH #### [facility] [address] [place] [address] Dr. Raul Pereira CREATININEon 12-03-2022 Creatinine [Mass/Vol] 0.53 mg/dL Critically low 0.55-1.02 [facility] Comment on above: Performed By: #### C BC #### [facility] [address] [place] [address] Dr. Raul Pereira EGFR-AF AZERBAIJANI >60 Normal >=60 [facility] Comment on above: Performed By: #### C BC #### [facility] [address] [place] [address] Dr. Raul Pereira EGFR-NON AF AZERBAIJANI >60 Normal >=60 [facility] Comment on above: Performed By: #### C BC #### [facility] [address] [place] [address] Dr. Raul Pereira Office Visiton 08-27-2022 Follow-up visit [id number] Lex Mejia L 1960 F Date Provider Department Center 08/27/2022 MICAELA MATA [facility] SURG Second Fl No family history on file Level of Service:90873 AL POSTOP FOLLOW UP VISIT RELATED TO ORIGINAL PX Reason for Visit and Comments: Post-op [483] - Rhett is here today for a post op visit, s/p 08/16/22 JOSE ZEESHAN Normal [facility] HISTOLOGY - TISSUE EXAMon LAB AP CASE REPORT Normal [facility] Comment on above: Order Comment: Pre-o p diagnosis:Calculus of gallbladder without cholecystitis without obstruction [K80.20] Result Comment: Surg ical Pathology Case: [id number] Authorizing Provider: Micaela Gupta MD Collected: 08/16/2022 0842 Ordering Location: [facility] Main Operating Room Received: 08/16/2022 1001 Pathologist: Maricruz Warren MD Specimen: Gallbladder, GALLBLADDER Performed By: #### L [id number] ####[facility] ([facility])[address] [place] [address] LAB AP CLINICAL INFORMATION Normal [facility] Comment on above: Order Comment: Pre-o p diagnosis:Calculus of gallbladder without cholecystitis without obstruction [K80.20] Result Comment: Pre- op diagnosis: Calculus of gallbladder without cholecystitis without obstruction [K80.20] Performed By: #### L [id number] ####[facility] ([facility]AKER)[address] [place] [address] LAB AP GROSS DESCRIPTION A. Gallbladder. Normal [facility] Comment on above: Order Comment: [...] 0.1 to 0.2 cm in maximum thickness. Chief Engineer Production sections submitted as follows: Cassette 1: Cystic duct resection margin and neck Cassette 2: Body and fundus Ankit Koroma, Pathologists' Extension Service Specialist Performed By: #### L [id number] ####[facility] ([facility])[address] [place] [address] LAB AP MICROSCOPIC DESCRIPTION Microscopic examination performed Normal [facility] Comment on above: Order Comment: Pre-o p diagnosis:Calculus of gallbladder without cholecystitis without obstruction [K80.20] Performed By: #### L [id number] ####[facility] ([facility])[address] [place] [address] LAB AP REPORT FINAL DIAGNOSIS NARRATIVE [facility] Comment on above: Order Comment: Pre-o p diagnosis:Calculus of gallbladder without cholecystitis without obstruction [K80.20] Result Comment: Gall bladder, cholecystectomy: - Cholelithiasis and cholesterolosis. Performed By: #### L [id number] ####[facility] ([facility])[address] [place] [address] HPon 08-16-2022 HP ----- ----- Attestation signed by Micaela Gupta MD at 08/16/2022 7:34 AM Attending Physician Statement I have discussed the case, including pertinent history and exam findings with Dr. Del Angel, surgical garment fitter and have personally seen the patient. I agree with the assessment, plan and orders as documented. [phone] pager [phone] phone ----- [facility] General Surgery HISTORY & PHYSICAL Chief [...] History: Diagnosis Date Anxiety Arthritis Chronic bronchitis ([facility]/HCC) Depression DVT (deep venous thrombosis) ([facility]) Gall bladder disease GERD (gastroesophageal reflux [...] Component Value (more content not included)... Normal [facility] NURSNOTEon 08-16-2022 NURSNOTE Stable. Pain minimal . DC criteria met. IV dc'd and patient getting dressed. 1155 Stable for discharge. Normal [facility] NURSNOTE DC instructions revi ewed with patient and Granddaughter, allowed time for questions, copy given. Normal [facility] NURSNOTE Report rec'd and car e assumed. No assessment changes. Pain minimal. Normal [facility] NURSNOTE 0920 Recovery called. Normal [facility] vers[facility] OPNOTEon 08-16-2022 OPNOTE CHOLECYSTECTOMY, LAPAROSCOPIC Operative Note Date: 08/16/2022 Location: [facility] OR Name: Rhett Mejia, : 1960, Diagnosis Pre-op Diagnosis * Calculus of gallbladder without cholecystitis without obstruction [K80.20] * History of gastric bypass [Z98.84] Post-op Diagnosis * Calculus of gallbladder without cholecystitis without obstruction [K80.20] * History of gastric bypass [Z98.84] Procedures CHOLECYSTECTOMY, LAPAROSCOPIC 61042 - [place] LAPS SURG CHOLECYSTECTOMY W/CHOLANGIOGRAPHY Surgeons * Micaela Gupta - Primary * Robyn Del Angel Procedure Summary Anesthesia: General ASA: III Estimated Blood Loss: 10 mL Total IV Fluids: 1000 mL Drains: * None in log * Specimens ID Source Type Tests Collected By Collected At Frozen? Priority Lab ID A Gallbladder Tissue HISTOLOGY - TISSUE EXAM Micaela Gupta MD 08/16/22 0842 No [id number] Description: GALLBLADDER Staff: Decal Maker: Zeny De La Cruz RN Scrub Person: [...] PACU - hemodynamically stable. Condition: stable Normal [facility] POCT GLUCOSE METER UNSOLICIT ED RESULTSon 08-16-2022 Glucose [Mass/Vol] 88 mg/dL Normal 70-105 [facility] Comment on above: Result Comment: epaw low Performed By: #### L [id number] #### [facility] ([facility]) [address] [place] [address] POCT SARS-COV-2 PCRon 2021 POC SARS-COV-2 ANTIGEN Negative Normal Negative [facility] Comment on above: Result Comment: [...] Certificate of Accreditation. Performed By: #### L [id number] ####[facility] ([facility])[address] [place] [address] Orders Onlyon 08-14-2022 Orders Only [id number] Lex Mejia L 1960 F Date Provider Department Center 08/14/2022 [id number], HISTORICAL [facility] [place] [facility] C No family history on file Normal [facility] [id number] 08-13-2022 [id number] NPO after [place] Must have a ambulance driver paramedic to take you home and someone to stay for 24 hours after surgery. No jewelry. Hold the meds we spoke about: NSAIDS Take the meds we spoke about w/a sip of water DOS: GAPAPENTIN, NEXIUM, INHALER, CYMBALTA Bring insurance card and ID. LABS AND COVID TO BE DONE IN [place]. Normal [facility] CBC AUTO DIFFon 08-13-2022 BASO # 0.0 103/ul Normal 0.0-0.1 [facility] Comment on above: Performed By: #### C BC #### [facility] [address] [address] [address] Raul Pereira Basophils/100 WBC (Bld) 0.4 % Normal 0.2-2.0 [facility] Comment on above: Performed By: #### C BC #### [facility] [address] [place] [address] Dr. Raul Pereira EO # 0.1 103/ul Normal 0.0-0.7 [facility] Comment on above: Performed By: #### C BC #### [facility] [address] [place] [address] Dr. Raul Pereira Eosinophils/100 WBC (Bld) 1.2 % Normal 0.9-7.0 [facility] Comment on above: Performed By: #### C BC #### [facility] [address] [place] [address] Dr. Raul Pereira Erythrocyte distribution width (RBC) [Ratio] 18.6 % Critically high 11.0-15.0 [facility] Comment on above: Performed By: #### C BC #### [facility] [address] [place] [address] Dr. Raul Pereira Hematocrit (Bld) [Volume fraction] 39.1 % Normal 36.0-48.0 [facility] Comment on above: Performed By: #### C BC #### [facility] [address] [place] [address] Dr. Raul Pereira Hemoglobin (Bld) [Mass/Vol] 12.5 g/dL Normal 12.0-16.0 [facility] Comment on above: Performed By: #### C BC #### [facility] [address] [place] [address] Dr. Raul Pereira IG # 0.03 10e3/ul Normal 0.00-0.03 [facility] Comment on above: Performed By: #### C BC #### [facility] [address] [place] [address] Dr. Raul Pereira IG % 0.4 % Normal 0.0-0.5 [facility] Comment on above: Performed By: #### C BC #### [facility] [address] [place] [address] Dr. Raul Pereira LYMPH # 2.0 103/ul Normal 1.2-3.8 [facility] Comment on above: Performed By: #### C BC #### [facility] [address] [place] [address] Dr. Raul Pereira Lymphocytes/100 WBC (Bld) 27.2 % Normal 20.5-60.0 [facility] Comment on above: Performed By: #### C BC #### [facility] [address] [place] [address] Dr. Raul Pereira MANUAL DIFF REQ NO Normal [facility] Comment on above: Performed By: #### C BC #### [facility] [address] [place] [address] Dr. Raul Pereira MCH (RBC) [Entitic mass] 27.2 pg Normal 26.7-34.0 [facility] Comment on above: Performed By: #### C BC #### [facility] [address] [place] [address] Dr. Raul Pereira MCHC (RBC) [Mass/Vol] 32.0 g/dL Normal 29.9-35.2 [facility] Comment on above: Performed By: #### C BC #### [facility] [address] [place] [address] Dr. Raul Pereira MCV (RBC) [Entitic vol] 85.2 fL Normal 81.0-99.0 [facility] Comment on above: Performed By: #### C BC #### [facility] [address] [place] [address] Dr. Raul Pereira MONO # 0.7 103/ul Normal 0.3-0.8 [facility] Comment on above: Performed By: #### C BC #### [facility] [address] [place] [address] Dr. Raul Pereira Monocytes/100 WBC (Bld) 9.3 % Normal 1.7-12.0 [facility] Comment on above: Performed By: #### C BC #### [facility] [address] [place] [address] Dr. Raul Pereira NEUT # 4.4 103/ul Normal 1.4-6.5 [facility] Comment on above: Performed By: #### C BC #### [facility] [address] [place] [address] Dr. Raul Pereira Neutrophils/100 WBC (Bld) 61.5 % Normal 43.0-75.0 [facility] Comment on above: Performed By: #### C BC #### [facility] [address] [place] [address] Dr. Raul Pereira Platelet mean volume (Bld) [Entitic vol] 8.7 fL Critically low 9.5-13.5 [facility] Comment on above: Performed By: #### C BC #### [facility] [address] [place] [address] Dr. Raul Pereira PLT 387 103/ul Normal 150-450 [facility] Comment on above: Performed By: #### C BC #### [facility] [address] [place] [address] Dr. Raul Pereira RBC 4.59 106/ul Normal 4.20-5.40 [facility] Comment on above: Performed By: #### C BC #### [facility] [address] [place] [address] Dr. Raul Pereira WBC 7.2 103/ul Normal 4.0-11.0 [facility] Comment on above: Performed By: #### C BC #### [facility] [address] [place] [address] Dr. Raul Pereira Covid-19 PCR ([facility])on 07-19 SARS-CoV-2 (COVID-19) RNA IMELDA+probe Ql (Unsp spec) Not detected Normal NOT DETECTED [facility] Comment on above: Result Comment: This test is not yet approved or cleared by the [place] FDA. When there are no FDA-approved or cleared tests available, and other criteria are met, FDA can make tests available under an emergency access mechanism called an Emergency Use Authorization (EUA). The EUA for this test is supported by the [employer] of Health and Human Service's (HHS's) declaration [...] SARS-CoV-2. Performed By: #### C VDTB #### [facility] [address] [place] [address] Dr. Raul Pereira PROF CHEM 8 (BAS METB)on Anion gap [Moles/Vol] 11.5 mmol/L Normal [facility] Comment on above: Performed By: #### C BC #### [facility] [address] [place] [address] Dr. Raul Pereira Calcium [Mass/Vol] 9.5 mg/dL Normal 8.5-10.1 [facility] Comment on above: Performed By: #### C BC #### [facility] [address] [place] [address] Dr. Raul Pereira Chloride [Moles/Vol] 101 mmol/L Normal 98-107 [facility] Comment on above: Performed By: #### C BC #### [facility] [address] [place] [address] Dr. Raul Pereira CO2 [Moles/Vol] 29.6 mmol/L Normal 21.0-32.0 [facility] Comment on above: Performed By: #### C BC #### [facility] [address] [place] [address] Dr. Raul Pereira Creatinine [Mass/Vol] 0.65 mg/dL Normal 0.55-1.02 [facility] Comment on above: Performed By: #### C BC #### [facility] [address] [place] [address] Dr. Raul Pereira EGFR-AF AZERBAIJANI >60 Normal >=60 [facility] Comment on above: Performed By: #### C BC #### [facility] [address] [address] [address] Raul Pereira EGFR-NON AF AZERBAIJANI >60 Normal >=60 [facility] Comment on above: Performed By: #### C BC #### [facility] [address] [address] [address] Raul Pereira Glucose [Mass/Vol] 104 mg/dL Normal 74-106 [facility] Comment on above: Performed By: #### C BC #### [facility] [address] [address] [address] Raul Pereira Potassium [Moles/Vol] 4.1 mmol/L Normal 3.5-5.1 [facility] Comment on above: Performed By: #### C BC #### [facility] [address] [address] [address] Raul Pereira Sodium [Moles/Vol] 138 mmol/L Normal 136-145 [facility] Comment on above: Performed By: #### C BC #### [facility] [address] [address] [address] Raul Pereira Urea nitrogen [Mass/Vol] 11.0 mg/dL Normal 7.0-18.0 [facility] Comment on above: Performed By: #### C BC #### [facility] [address] [address] [address] Raul Pereira Urea nitrogen/Creatinine [Mass ratio] 16.9 mg/mg Normal [facility] Comment on above: Performed By: #### C BC #### [facility] [address] [address] [address] Raul Pereira Office Visiton 08-06-2022 Follow-up visit [id number] Lex Mejia rrmonica L 1960 F Date Provider Department Center 08/06/2022 Nella-MICAELA GUPTA [facility] SURG Second Fl No family history on file Level of Service:93301 AL OFFICE/OUTPATIENT ESTABLISHED LOW MDM 20-29 MIN Reason for Visit and Comments: Consult [484] - Rhett is here for a gallbladder consult. Rhett also c/o swelling in right leg with pain in calf. Normal [facility] PROTIME-INRon 08-06-2022 INR IN PPP BY COAGULATION ASSAY 0.89 Low 0.90-1.10 [facility] Comment on above: Result Comment: [...] 1995;108:231S-246S. Performed By: #### L [id number] #### [facility] ([facility]) [address] [place] [address] PROTHROMBIN TIME (PT) IN PPP BY COAGULATION ASSAY 12.1 Seconds Low 12.3-14.8 [facility] Comment on above: Performed By: #### L [id number] #### [facility] ([facility]) [address] [place] [address] CT ABD/PELVIS WO CONon 07-24 CT ABD/PELVIS [...] by: JESSICA LIPSCOMB Date: 2022-07-24 17:21 Normal [facility] HEPATOBILIARY SCAN W EFon 07-18-2022 AR HEPATOBILIARY SCAN W EF EXAMINATION: NM HEPATOBILIARY [...] by: MEAGHAN SKINNER Date: 2022-07-18 10:22 Normal [facility] CBC AUTO DIFFon 07-13-2022 BASO # 0.0 103/ul Normal 0.0-0.1 [facility] Comment on above: Performed By: #### C BC #### [facility] [address] [place] [address] Dr. Raul Pereira Basophils/100 WBC (Bld) 0.5 % Normal 0.2-2.0 [facility] Comment on above: Performed By: #### C BC #### [facility] [address] [place] [address] Dr. Raul Pereira EO # 0.1 103/ul Normal 0.0-0.7 [facility] Comment on above: Performed By: #### C BC #### [facility] [address] [place] [address] Dr. Raul Pereira Eosinophils/100 WBC (Bld) 0.9 % Normal 0.9-7.0 [facility] Comment on above: Performed By: #### C BC #### [facility] [address] [place] [address] Dr. Raul Pereira Erythrocyte distribution width (RBC) [Ratio] 20.2 % Critically high 11.0-15.0 [facility] Comment on above: Performed By: #### C BC #### [facility] [address] [place] [address] Dr. Raul Pereira Hematocrit (Bld) [Volume fraction] 41.1 % Normal 36.0-48.0 [facility] Comment on above: Performed By: #### C BC #### [facility] [address] [place] [address] Dr. Raul Pereira Hemoglobin (Bld) [Mass/Vol] 13.2 g/dL Normal 12.0-16.0 [facility] Comment on above: Performed By: #### C BC #### [facility] [address] [place] [address] Dr. Rual Pereira IG # 0.05 10e3/ul Critically high 0.00-0.03 [facility] Comment on above: Performed By: #### C BC #### [facility] [address] [place] [address] Dr. Raul Pereira IG % 0.6 % Critically high 0.0-0.5 [facility] Comment on above: Performed By: #### C BC #### [facility] [address] [place] [address] Dr. Raul Pereira LYMPH # 1.4 103/ul Normal 1.2-3.8 [facility] Comment on above: Performed By: #### C BC #### [facility] [address] [place] [address] Dr. Raul Pereira Lymphocytes/100 WBC (Bld) 17.3 % Critically low 20.5-60.0 [facility] Comment on above: Performed By: #### C BC #### [facility] [address] [place] [address] Dr. Raul Pereira MANUAL DIFF REQ NO Normal [facility] Comment on above: Performed By: #### C BC #### [facility] [address] [place] [address] Dr. Raul Pereira MCH (RBC) [Entitic mass] 27.3 pg Normal 26.7-34.0 [facility] Comment on above: Performed By: #### C BC #### [facility] [address] [place] [address] Dr. Raul Pereira MCHC (RBC) [Mass/Vol] 32.1 g/dL Normal 29.9-35.2 [facility] Comment on above: Performed By: #### C BC #### [facility] [address] [place] [address] Dr. Raul Pereira MCV (RBC) [Entitic vol] 84.9 fL Normal 81.0-99.0 [facility] Comment on above: Performed By: #### C BC #### [facility] [address] [place] [address] Dr. Raul Pereira MONO # 0.8 103/ul Normal 0.3-0.8 [facility] Comment on above: Performed By: #### C BC #### [facility] [address] [place] [address] Dr. Raul Pereira Monocytes/100 WBC (Bld) 10.0 % Normal 1.7-12.0 [facility] Comment on above: Performed By: #### C BC #### [facility] [address] [address] [address] Raul Pereira NEUT # 5.8 103/ul Normal 1.4-6.5 [facility] Comment on above: Performed By: #### C BC #### [facility] [address] [place] [address] Dr. Raul Pereira Neutrophils/100 WBC (Bld) 70.7 % Normal 43.0-75.0 [facility] Comment on above: Performed By: #### C BC #### [facility] [address] [place] [address] Dr. Raul Pereira Platelet mean volume (Bld) [Entitic vol] 9.1 fL Critically low 9.5-13.5 [facility] Comment on above: Performed By: #### C BC #### [facility] [address] [place] [address] Dr. Raul Pereira PLT 358 103/ul Normal 150-450 [facility] Comment on above: Performed By: #### C BC #### [facility] [address] [place] [address] Dr. Raul Pereira RBC 4.84 106/ul Normal 4.20-5.40 [facility] Comment on above: Performed By: #### C BC #### [facility] [address] [place] [address] Dr. Raul Pereira WBC 8.1 103/ul Normal 4.0-11.0 [facility] Comment on above: Performed By: #### C BC #### [facility] [address] [place] [address] Dr. Raul Pereira LIPASEon 07-13-2022 Lipase [Catalytic activity/Vol] 47.0 U/L Critically low 73.0-393.0 [facility] Comment on above: Performed By: #### C BC #### [facility] [address] [place] [address] Dr. Raul Pereira PROF 14(COMP METB)on 022 Albumin [Mass/Vol] 3.6 g/dL Normal 3.4-5.0 [facility] Comment on above: Performed By: #### C BC #### [facility] [address] [place] [address] Dr. Raul Pereira Albumin/Globulin [Mass ratio] 1.0 {ratio} Normal [facility] Comment on above: Performed By: #### C BC #### [facility] [address] [place] [address] Dr. Raul Pereira ALP [Catalytic activity/Vol] 88 U/L Normal 46-116 [facility] Comment on above: Performed By: #### C BC #### [facility] [address] [place] [address] Dr. Raul Pereira ALT [Catalytic activity/Vol] 16 U/L Normal 14-59 [facility] Comment on above: Performed By: #### C BC #### [facility] [address] [place] [address] Dr. Raul Pereira Anion gap [Moles/Vol] 13.2 mmol/L Normal [facility] Comment on above: Performed By: #### C BC #### [facility] [address] [place] [address] Dr. Raul Pereira AST [Catalytic activity/Vol] 15 U/L Normal 15-37 [facility] Comment on above: Performed By: #### C BC #### [facility] [address] [place] [address] Dr. Raul Pereira Bilirubin [Mass/Vol] 0.2 mg/dL Normal 0.2-1.0 [facility] Comment on above: Performed By: #### C BC #### [facility] [address] [place] [address] Dr. Raul Pereira Calcium [Mass/Vol] 9.5 mg/dL Normal 8.5-10.1 [facility] Comment on above: Performed By: #### C BC #### [facility] [address] [place] [address] Dr. Raul Pereira Chloride [Moles/Vol] 100 mmol/L Normal 98-107 [facility] Comment on above: Performed By: #### C BC #### [facility] [address] [address] [address] Raul Pereira CO2 [Moles/Vol] 28.0 mmol/L Normal 21.0-32.0 [facility] Comment on above: Performed By: #### C BC #### [facility] [address] [address] [address] Raul Pereira Creatinine [Mass/Vol] 0.78 mg/dL Normal 0.55-1.02 [facility] Comment on above: Performed By: #### C BC #### [facility] [address] [address] [address] Raul Pereira EGFR-AF AZERBAIJANI >60 Normal >=60 [facility] Comment on above: Performed By: #### C BC #### [facility] [address] [place] [address] Dr. Raul Pereira EGFR-NON AF AZERBAIJANI >60 Normal >=60 [facility] Comment on above: Performed By: #### C BC #### [facility] [address] [place] [address] Dr. Raul Pereira Globulin (S) [Mass/Vol] 3.6 g/dL Normal [facility] Comment on above: Performed By: #### C BC #### [facility] [address] [place] [address] Dr. Raul Pereira Glucose [Mass/Vol] 86 mg/dL Normal 74-106 [facility] Comment on above: Performed By: #### C BC #### [facility] [address] [address] [address] Raul Pereira Potassium [Moles/Vol] 4.2 mmol/L Normal 3.5-5.1 [facility] Comment on above: Performed By: #### C BC #### [facility] [address] [place] [address] Dr. Raul Pereira Protein [Mass/Vol] 7.2 g/dL Normal 6.4-8.2 [facility] Comment on above: Performed By: #### C BC #### [facility] [address] [place] [address] Dr. Raul Pereira Sodium [Moles/Vol] 137 mmol/L Normal 136-145 [facility] Comment on above: Performed By: #### C BC #### [facility] [address], [place] [address] Dr. Raul Pereira Urea nitrogen [Mass/Vol] 11.0 mg/dL Normal 7.0-18.0 [facility] Comment on above: Performed By: #### C BC #### [facility] [address] [place], [place] [address] Dr. Raul Pereira Urea nitrogen/Creatinine [Mass ratio] 14.1 mg/mg Normal [facility] Comment on above: Performed By: #### C BC #### [facility] [address], [place] [address] Dr. Raul Pereira US SINGLE QUAD RT [...] MICAH ROSAS Date: 2022-07-13 16:33 Normal [facility] SARS-CoV-2 (COVID-19) RNA IMELDA+probe Ql (Unsp spec) Not detected Normal NOT DETECTED [facility] Comment on above: Result Comment: This test is not yet approved or cleared by the [place] FDA. When there are no FDA-approved or cleared tests available, and other criteria are met, FDA can make tests available under an emergency access mechanism called an Emergency Use Authorization (EUA). The EUA for this test is supported by the [employer] of Health and Human Service's (HHS's) declaration [...] consistent with SARS-CoV-2. Performed By: #### C [facility] #### [facility] [address] [place] [address] Dr. Raul Pereira Endoscopy Reporton 8 Endoscopy Report [id number]tt Mej[facility] Surgery Date: 02/24/2018 Room #: Z0 Date of : 1960 PROCEDURE NOTEATTENDING: Xin Beasley M.D.PROCEDURE PERFORMED: EGD.AGRISCIENCE TECHNOLOGY INSTRUCTOR: Dr. Noland.SEDATION:1. Versed 10 mg.2. Fentanyl 250 [...] scope untilit was withdrawn. Date Dict: 02/24/2018/09:53 Kaira/Ruddy Noland M.D.Date Trans: 02/24/2018 12:13 P/sonalioDN_JN:[id number] cc: Napoleon Rahman M.D. [address] [place] [facility] [id number] [place] [facility] Endoscopy Report MR#: [id number] Name[facility] Rhett Mejia Surgery Date: 02/24/2018 Room #: Z0 Date of : 1960 PROCEDURE NOTEATTENDING: Xin Beasley M.D.PROCEDURE PERFORMED: Colonoscopy and polypectomy.AGRISCIENCE TECHNOLOGY INSTRUCTOR: Ruddy Noland M.D.SEDATION: Versed 10 mg and [...] 02/24/2018/09:57 A/Ruddy Noland M.D.Date Trans: 02/24/2018 10:12 A/Aditya_JN:[id number] cc: Napoleon Rahman M.D. [address], [facility] [address] Normal [facility] POC GLUCOSE LABon 02-24-2018 Glucose mass conc 87 mg/dL Normal 70-100 [facility] Comment on above: Performed By: #### 8 [id number] ####[facility] Vital Signs Date Time Vital Sign Value Performing Clinician Facility NEGATED: Highlighted row BMI (Body Mass Index) [facility] NEGATED: Highlighted row Body Temperature [facility] NEGATED: Highlighted row Body weight [facility] NEGATED: Highlighted row BP Diastolic [facility] NEGATED: Highlighted row BP Systolic [facility] NEGATED: Highlighted row Height [facility] NEGATED: Highlighted row Pulse (Heart Rate) [facility] NEGATED: Highlighted row Pulse Oximetry [facility] NEGATED: Highlighted row Respiratory Rate [facility] Encounters Encounter Date Encounter Type Care Provider Facility Start: 07-30-2024 ambulatory Cristian Johnson acility:[facility] Start: 06-21-2024 End: 06-21-2024 ambulatory Monica Malagon MD Facility:[facility] Start: 09-22-2023 End: 09-22-2023 ambulatory Monica Malagon MD Facility: [facility] Start: 04-08-[address] NAPOLEON RAHMAN . [...] abnormal findings DR NAPOLEON RAHMAN . [facility] Start: 01-31-2023 End: 02-01-2023 Encounter for general adult medical examination without abnormal findings NONE LISTED REQUEST Facility:[facility] Start: 01-31-2023 End: 02-01-2023 ambulatory NONE LISTED REQUEST Facility:[facility] Start: 01-30-2023 End: 01-31-[address] NAPOLEON RAHMAN . Facility:[facility] Start: 01-28-2023 End: 01-28-[address] BETHEL LITTLE . Facility:[facility] Start: 01-16-2023 End: 01-17-[address] NAPOLEON RAHMNA . Facility:[facility] Start: 01-13-2023 End: 01-14-[address] NAPOLEON RAHMAN . Facility:[facility] Start: 01-10-2023 End: 01-11-[address] NAPOLEON RAHMAN . Facility:[facility] Start: 12-17-2022 End: 12-17-[address] BETHEL LITTLE . Facility:[facility] Start: 12-16-2022 Encounter for preprocedural laboratory examination DR BETHEL LITTLE . [facility] Start: 12-13-2022 End: 12-14-[address] [...] . Facility:[facility] Start: 08-27-2022 End: 08-27-2022 ambulatory [facility] Start: 08-16-2022 End: 08-16-2022 ambulatory [facility] Start: 08-15-2022 Encounter for other preprocedural examination DR MICAELA GUPTA [facility] Start: 08-15-2022 Encounter for preprocedural laboratory examination DR MICAELA GUPTA [facility] Start: 08-13-2022 End: 08-14-[address] MICAELA [...] Start: 02-24-2018 End: 02-25-2018 Ambulatory XIN BEASLEY Facility:[facility] Start: 10-19-2014 End: 10-19-2014 Patient encounter procedure [facility] Start: 12-22-2013 End: 12-22-2013 Departed Referred [facility] Start: 10-12-2001 End: 10-12-2001 Patient encounter procedure [facility] Start: 09-01-2001 End: 09-01-2001 Patient encounter procedure [facility] Start: 08-26-2001 End: 08-26-2001 Patient encounter procedure [facility] Start: 03-21-1999 End: 03-28-1999 Evaluation and management of inpatient [facility] Start: 09-07-1997 End: 09-07-1997 Admission to day surgery [facility] Start: 07-21-1997 End: 07-21-1997 Emergency department patient visit [facility] Procedures Date Procedure Procedure Detail Performing Clinician Start: 02-24-2018 Colsc flx w/removal lesion by hot bx forceps XIN BEASLEY Payers Date Payer Category Payer Unknown 2015 Medicare 1960 Self-pay 1960 Self-pay [id number] 1960 Unknown [id number] 1960 Unknown [id number] 2.16.84 0.1.419235.3.579.2.593 1960 Unknown [id number] 2.16.84 0.1.967780.3.579.2.593 1960 Unknown [id number] 2.16.84 0.1.483822.3.579.2.593 1959 Unknown [id number] 2.16.84 0.1.753459.3.579.2.593 1959 Unknown [id number] 2.16.84 0.1.672283.3.579.2.593 1959 Unknown [id number] 2.16.84 0.1.226674.3.579.2.593 1959 Unknown [id number] 2.16.84 0.1.011801.3.579.2.593 1959 Unknown [id number] 2.16.84 0.1.517965.3.579.2.593 1959 Unknown [id number] 2.16.84 0.1.356033.3.579.2.593 1959 Unknown [id number] 2.16.84 0.1.026501.3.579.2.593 1959 Unknown [id number] 2.16.84 0.1.656228.3.579.2.593 1959 Unknown [id number] 2.16.84 0.1.981137.3.579.2.593 1959 Unknown [id number] 2.16.84 0.1.335009.3.579.2.593 1959 Unknown [id number] 2.16.84 0.1.405689.3.579.2.593 1959 Unknown [id number] 2.16.84 0.1.149089.3.579.2.593 1959 Unknown [id number] 2.16.84 0.1.196012.3.579.2.593 1959 Unknown [id number] 2.16.84 0.1.099604.3.579.2.593 1959 Unknown [id number] 2.16.84 0.1.462577.3.579.2.593 1959 Unknown [id number] 2.16.84 0.1.015018.3.579.2.593 1959 Unknown [id number] 2.16.84 0.1.518507.3.579.2.593 1959 Unknown [id number] 2.16.84 0.1.578042.3.579.2.593 1959 Unknown [id number] 2.16.84 0.1.583377.3.579.2.593 1959 Unknown [id number] 2.16.84 0.1.339409.3.579.2.593 1959 Unknown [id number] 2.16.84 0.1.004022.3.579.2.593 1959 Unknown [id number] 2.16.84 0.1.102930.3.579.2.593 1959 Unknown [id number] 2.16.84 0.1.182387.3.579.2.593 1959 Unknown [id number] 2.16.84 0.1.530668.3.579.2.593 1959 Unknown [id number] 2.16.84 0.1.772435.3.579.2.593 1959 Unknown [id number] 2.16.84 0.1.900682.3.579.2.593 1959 Unknown [id number] 2.16. 840.1.647340.3.579.2.196 1960 Unknown [id number] .16. 840.1.574306.3.579.2.196 Medicare [id number] Unknown [id number] Unknown [id number] 2.16.84 0.1.375466.3.579.2.593 Unknown [id number] 2.16.8 40.1.964452.3.579.2.531 Clinical Notes 05-15-2022 to 02-18-2023 Note Date [...] our patients to inform us about any hflm-fxp-oxbbfww medications or herbal remedies/nutritional supplements/alternative remedies. 2. [...] options with their primary care provider. [facility] 01-16-2023 Note CONSULTATION CONSULTATION DATE: 01/16/2023 [...] up in the clinic post epidural. [facility] 12-04-2022 Note CONSULTATION CONSULTATION DATE: 12/04/2022 [...] in the office after the procedure. [facility] 11-15-2022 Note CONSULTATION PROCEDURE DATE: 11/15/2022 [...] the office following her RFA procedure. [facility] 11-15-2022 Note CONSULTATION CONSULTATION DATE: 11/15/2022 [...] measures such as heat and stretches. [facility] 08-29-2022 Note CONSULTATION PROCEDURE DATE: 08/29/2022 [...] pattern. Patient tolerated the procedure well. [facility] 08-29-2022 Note CONSULTATION CONSULTATION DATE: 08/29/2022 [...] medications by her PCP, which includes a Shayne patch, Adderall, gabapentin, Tylenol and Valium. Patient [...] up in the office post procedure. [facility] 08-29-2022 Note CONSULTATION CONSULTATION DATE: 08/29/2022 ADDENDUM: Addendum to peer plan: We will repeat radiofrequency ablation starting on the right side and subsequently moving to the left at T11, T12 and L1, L2. [facility] 08-27-2022 Note Subjective Patient ID: Rhett [...] past 36 hour(s)). No follow-ups on file. [facility] 08-16-2022 Note Patient: Rhett rousseau Procedure Summary Date: 08/16/22 Room / Location: [facility] OPERATING ROOM 01 / [facility] Operating Room Anesthesia Start: 734 [...] no known notable events for this encounter. [facility] 08-16-2022 Note Airway Date/Time: 08/16/2022 7:44 AM Urgency: elective Airway not difficult General Information and Staff Patient location during procedure: OR Anesthesiologist: Cassi Velez MD Resident/PET CARE TECHNICIAN/CAA: LEONARD Canales Performed: resident/PET CARE TECHNICIAN/CAA Indications and Patient Condition Indications for airway [...] before airway management; Dentures to Circ RN [facility] 08-16-2022 Note Patient: Rhett rousseau Procedure Information Date/Time: 08/16/22 0730 Procedure: CHOLECYSTECTOMY, LAPAROSCOPIC, WITH INTRAOPERATIVE CHOLANGIOGRAM, WITH LAPAROTOMY IF INDICATED REQ ERIC OR MANDO HUERTA MAUK, WOODSON - C-ARM AVAIL STAFF REQUESTS: LENIN DE LA CRUZ Location: [facility] OPERATING ROOM 01 / [facility] Operating Room Surgeons: Micaela Gupta [...] Plan discussed with CAA. Additional Equipment Requests [facility] 08-06-2022 Note Subjective Patient ID: [...] past 36 hour(s)). No follow-ups on file. [facility] 08-06-2022 Note Subjective Patient ID: [...] past 36 hour(s)). No follow-ups on file. [facility] 06-12-2022 Note CONSULTATION PROCEDURE DATE: [...] The patient tolerated the procedure well. [facility] 06-12-2022 Note CONSULTATION CONSULTATION DATE: 06/12/2022 [...] agrees to the plan of care. [facility] 05-15-2022 Note CONSULTATION CONSULTATION DATE: 05/15/2022 [...] Patient agrees with the plan of care. [facility] Signed and Approved by: RUBY RAMIREZ . 05/16/2022 13:38:00 [facility] 05-15-2022 Note CONSULTATION PROCEDURE DATE: 05/15/2022 [...] will be followed up in the office. [facility] OF [facility] Signed and Approved by: RUBY RAMIREZ . 05/16/2022 13:38:00 [facility] Summary Purpose Family History No Family History Records FoundNo Family History Records FoundNo Family History Records FoundNo Family History Records FoundNo Family History Records Found Advance Directives No Advanced Directives Records FoundNo Advanced Directives Records FoundNo Advanced Directives Records FoundNo Advanced Directives Records FoundNo Advanced Directives Records Found Additional Source Comments INFORMATION SOURCE (unrecogn ized section and content) DATE CREATED AUTHOR 05/07/2018 [facility] DATE CREATED AUTHOR AUTHOR'S ORGANIZ ATION 09/26/2022 [facility] DATE CREATED AUTHOR AUTHOR'S ORGANIZ ATION 03/28/2023 [facility] DATE CREATED AUTHOR AUTHOR'S ORGANIZ ATION 07/25/2024 [facility] DATE CREATED AUTHOR AUTHOR'S ORGANIZ ATION 08/01/2024 [facility] FOR RECORDS PERTAINING TO [...] BE BASED ON THE PRIMARY CLINICAL RECORDS. [facility] [employer] provides no warranty or guarantee of the accuracy or completeness of information in this document.
[2024-08-02 07:41] VITALS: BP 126/89; PULSE 91; TEMP 36.2; O2SAT 94
[2024-08-02 08:36] VITALS: BP 114/66; PULSE 89; O2SAT 90
[2024-08-02 08:38] VITALS: BP 125/69; PULSE 90; O2SAT 93
--- NOTE | 2024-08-02 08:38 | W.PM.PROCNOT ---
Date of procedure: 08/02/24 Pre-op diagnosis: Pain due to thoracic spondylosis without myelopathy Post-op diagnosis: same as pre-op Procedure: Procedure: Bilateral T10-11, 11-12 medial branch block Medications: Bupivacaine 0.25% 6cc The patient was seen and examined in the preoperative holding area.? An informed consent was obtained and placed on the chart.? The patient was brought to the medical procedure unit and placed in the prone position.? A timeout was completed verifying correct patient, procedure site, positioning, plan, and special equipment.? Using aseptic technique, the needle was placed at left T10. Under direct fluoroscopic visualization a Quincke-tipped spinal needle was advanced to the junction of the superior articulating process with the transverse process at the designated medial branch segment.? Preceded by negative aspiration, the above-mentioned injectate was placed in 1 mL aliquots.? The procedure was repeated at left T11, 12.? The needle was removed and insertion site was covered. The same procedure, at the same levels, was completed on the right side. The patient was taken to the postprocedural recovery area and monitored for an appropriate length of time before found suitable for discharge in the company of a responsible adult. Anesthesia: Local Surgeon: Monica Malagon Pathology: none sent Condition: stable Disposition: no change
[2024-08-02] MEDS: BUPIVACAINE HCL 0.25% PF 25 MG/10 ML VIAL 8 ML INJ (08:39)
== END 2024-08-02 08:43 | disposition home or self-care (01) ==
LOC: SURGOUT 07:24
PROVIDERS: PCP Family Medicine; Visit Provider Anesthesiology
DX: M47.814 Spondylosis without myelopathy or radiculopathy, thoracic region (principal)
CPT/HCPCS: 64490; 64491; J0665

== ENCOUNTER 2024-08-05 10:25 | Outpatient (OUT) | payer MEDICARE, OTHER, SELFPAY ==
--- OUTSIDE RECORDS SUMMARY | 2024-08-05 10:34 | XMS_ITS | CCD ---
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 Role Phone NAWRAS, ALI T Unavailable Unavailable NAWRAS, ALI T Unavailable Unavailable HOY, NAPOLEON Unavailable Unavailable HOY, NAPOLEON Unavailable Unavailable [place] Unavailable Unavailable NAWRAS, ALI T Unavailable Unavailable [...] Unavailable HOY ., DR BENDER Attending Unavailable ALPINE, DR MEAGHAN Stanton Consulting Unavailable HOY ., [...] REX BUSTILLO Consulting Unavailable LITTLE ., DR BTEHEL Reyes Attending Unavailable LITTLE ., DR BETHEL [...] Unavailable HOY ., DR BENDER Attending Unavailable ALPINE, DR MEAGHAN Stanton Consulting Unavailable RAMIREZ ., [...] DR BENDER Attending Unavailable HOY ., DR BNEDER Consulting Unavailable HOY ., DR BENDER Primary [...] Propensity to adverse reactions (disorder) 1 [facility] Repository (2 sources) corn extract; Translations: [CORN] Drug Allergy 1 [facility] (6 sources) iodine; Translations: [IODINE] Drug Allergy 9 Edema [facility] Repository (6 sources) Latex; Translations: [LATEX] Drug allergy (disorder) 9 Anaphylaxis [facility] Repository (1 source) loratadine Drug Allergy 1 [facility] Rep[facility] (2 sources) loratadine; Translations: [LORATADINE] Drug Allergy 3 [facility] Rep[facility] (1 source) montelukast Drug Allergy 1 [facility] (3 sources) papaveretum; Translations: [SOYBEAN] Drug Allergy 1 [facility] Rep[facility] (2 sources) Penicillins; Translations: [PENICILLINS] Drug allergy (disorder) 1 [facility] Repository (1 source) povidone-iodine Drug Allergy 9 [facility] Rep[facility] (6 sources) propofol; Translations: [PROPOFOL] Drug Allergy 2 Anaphylaxis [facility] Repository (2 sources) wheat preparation; Translations: [WHEAT] Drug Allergy 2 [facility] Rep[facility] (5 sources) Iodinated Contrast Media; Translations: [IODINATED CONTRAST MEDIA] Allergy to Substance 4 Anaphylaxis [facility] Repository (1 source) montelukast; Translations: [MONTELUKAST] Drug Allergy 4 [facility] Repository (1 source) oxybutynin; Translations: [DITROPAN] Drug Allergy 2 [facility] Rep[facility] (1 source) Povidone-Iodine; Translations: [POVIDONE-IODINE] Drug Allergy 4 [facility] Repository (1 source) Soy protein; Translations: [SOY] Propensity to adverse reactions to drug (disorder) 2 [facility] Repository (1 source) Iodine (And Iodine Containting Drugs) Drug allergy (disorder) 4 [facility] Repository (1 source) Penicillin Drug Allergy [facility] Rep[facility] (1 source) Sulfonamides (Antibiotic) Drug allergy (disorder) 2 [facility] Repository (1 source) Iodine Drug Allergy 8 [facility] Repository (1 source) Latex Drug allergy (disorder) 8 [facility] Repository (1 source) Propofol Drug Allergy 8 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 Raul Pereira Basophils/100 WBC (Bld) 0.6 % Normal 0.2-2.0 [facility] Comment on above: Performed By: #### C BC #### [facility] [address] [place] [address] Dr. Raul Pereira EO # 0.2 103/ul Normal 0.0-0.7 [facility] Comment on above: Performed By: #### C BC #### [facility] [address] [place] [address] Dr. Raul Pereira Eosinophils/100 WBC (Bld) 2.3 % Normal 0.9-7.0 [facility] Comment on above: Performed By: #### C BC #### [facility] [address] [place] [address] Dr. Raul Pereira Hematocrit (Bld) [Volume fraction] 39.5 % Normal 36.0-48.0 [facility] Comment on above: Performed By: #### C BC #### [facility] [address] [place] [address] Dr. Raul Pereira Hemoglobin (Bld) [Mass/Vol] 12.3 g/dL Normal 12.0-16.0 [facility] Comment on above: Performed By: #### C BC #### [facility] [address] [place] [address] Dr. Raul Pereira IG # 0.03 10e3/ul Normal 0.00-0.03 [facility] Comment on above: Performed By: #### C BC #### [facility] [address] [place] [address] Dr. Raul Pereira IG % 0.4 % Normal 0.0-0.5 [facility] Comment on above: Performed By: #### C BC #### [facility] [address] [place] [address] Dr. Raul Pereira LYMPH # 2.1 103/ul Normal 1.2-3.8 [facility] Comment on above: Performed By: #### C BC #### [facility] [address] [place] [address] Dr. Raul Pereira Lymphocytes/100 WBC (Bld) 24.8 % Normal 20.5-60.0 [facility] Comment on above: Performed By: #### C BC #### [facility] [address] [place] [address] Dr. Raul Pereira MANUAL DIFF REQ NO Normal [facility] Comment on above: Performed By: #### C BC #### [facility] [address] [place] [address] Dr. Raul Pereira MCH (RBC) [Entitic mass] 26.3 pg Critically low 26.7-34.0 [facility] Comment on above: Performed By: #### C BC #### [facility] [address] [place] [address] Dr. Raul Pereira MCHC (RBC) [Mass/Vol] 31.1 g/dL Normal 29.9-35.2 [facility] Comment on above: Performed By: #### C BC #### [facility] [address] [place] [address] Dr. Raul Pereira MCV (RBC) [Entitic vol] 84.4 fL Normal 81.0-99.0 [facility] Comment on above: Performed By: #### C BC #### [facility] [address] [place] [address] Dr. Raul Pereira MONO # 1.0 103/ul Critically high 0.3-0.8 [facility] Comment on above: Performed By: #### C BC #### [facility] [address] [place] [address] Dr. Raul Pereira Monocytes/100 WBC (Bld) 11.8 % Normal 1.7-12.0 [facility] Comment on above: Performed By: #### C BC #### [facility] [address] [place] [address] Dr. Raul Pereira NEUT # 5.0 103/ul Normal 1.4-6.5 [facility] Comment on above: Performed By: #### C BC #### [facility] [address] [place] [address] Dr. Raul Pereira Neutrophils/100 WBC (Bld) 60.1 % Normal 43.0-75.0 [facility] Comment on above: Performed By: #### C BC #### [facility] [address] [place] [address] Dr. Raul Pereira Platelet mean volume (Bld) [Entitic vol] 8.8 fL Critically low 9.5-13.5 [facility] Comment on above: Performed By: #### C BC #### [facility] [address] [place] [address] Dr. Raul Pereira PLT 418 103/ul Normal 150-450 [facility] Comment on above: Performed By: #### C BC #### [facility] [address] [place] [address] Dr. Raul Pereira RBC 4.68 106/ul Normal 4.20-5.40 [facility] Comment on above: Performed By: #### C BC #### [facility] [address] [place] [address] Dr. Raul Pereira WBC 8.3 103/ul Normal 4.0-11.0 [facility] Comment on above: Performed By: #### C BC #### [facility] [address] [place] [address] Dr. Raul Pereira FERRITINon 02-20-2023 Ferritin [Mass/Vol] 15.0 ng/mL Normal 8.0-252.0 [facility] Comment on above: Performed By: #### C BC #### [facility] [address] [address] [address] Raul Pereira XR CSPINE 2_3 VIEWSon [...] by: JESSICA LIPSCOMB Date: 2023-02-19 06:[address] [facility] [address] LUNG CANCER SCREENINGon 0 02-13-2023 [...] by: MEAGHAN SKINNER Date: 2023-02-13 11:02 Normal [facility] ECHOCARDIO M/2D COMPLETEon 0 02-13-2023 ECHOCARDIO M/2D COMPLETE Patient: RHETT MEJIA Exam Date: 02/13/2023 : 1960 Gender:F Ordering : DR NAPOLEON RAHMAN . Admission #: [id number] Family : Order #: [id number] CLICK HERE TO VIEW EXAM ECHOCARDIOGRAM REPORT [...] Marion M.D. on 02/13/2023 at 18:54 Normal [facility] CREATININEon 02-12-2023 Creatinine [Mass/Vol] 0.76 mg/dL Normal 0.55-1.02 [facility] Comment on above: Performed By: #### C BC #### [facility] [address] [address] [address] Raul Pereira EGFR-AF MICRONESIAN >60 Normal >=60 [facility] Comment on above: Performed By: #### C BC #### [facility] [address] [address] [address] Raul Pereira EGFR-NON AF MICRONESIAN >60 Normal >=60 [facility] Comment on above: Performed By: #### C BC #### [facility] [address] [address] [address] Raul Pereira MRI BRAIN WO W [...] by: JESSICA LIPSCOMB Date: 2023-02-12 12:37 Normal [facility] US CAROTID ART BILon 023 US CAROTID [...] JESSICA LIPSCOMB Date: 2023-02-12 14:03 Normal [facility] COMPLIANCE DRUG SCREENon PDF . Normal [facility] Comment on above: Performed By: #### C BC #### [facility] [address] [place], [place] [address] Dr. Raul Pereira Summary FINAL Normal [facility] Comment on above: Result Comment: == TOXASSURE [...] == Performed By: #### C BC #### [facility] [address] [place] [address] Dr. Raul Pereira CULTURE URINEon 02-02-2023 CULTURE [...] Trimethoprim/Sulfamethoxa zole <=20 S F Normal [facility] Comment on above: Performed By: #### U RCX #### [facility] [address] [place] [address] Dr. Raul Pereira AMMONIAon 01-31-2023 Ammonia (P) [Moles/Vol] 13 umol/L Normal [facility] Comment on above: Performed By: #### A MM ####[facility] [address] [place], [place] [address]Dr. Raul Pereira CBC AUTO DIFFon 01-31-2023 BASO # 0.1 103/ul Normal 0.0-0.1 [facility] Comment on above: Performed By: #### C BC #### [facility] [address] [place] [address] Dr. Raul Pereira Basophils/100 WBC (Bld) 0.6 % Normal 0.2-2.0 [facility] Comment on above: Performed By: #### C BC #### [facility] [address] [place] [address] Dr. Raul Pereira EO # 0.1 103/ul Normal 0.0-0.7 [facility] Comment on above: Performed By: #### C BC #### [facility] [address] [place] [address] Dr. Raul Pereira Eosinophils/100 WBC (Bld) 1.7 % Normal 0.9-7.0 [facility] Comment on above: Performed By: #### C BC #### [facility] [address] [place] [address] Dr. Raul Pereira Erythrocyte distribution width (RBC) [Ratio] 25.9 % Critically high 11.0-15.0 [facility] Comment on above: Result Comment: 2+ a niso Performed By: #### C BC #### [facility] [address] [place] [address] Dr. Raul Pereira Hematocrit (Bld) [Volume fraction] 42.4 % Normal 36.0-48.0 [facility] Comment on above: Performed By: #### C BC #### [facility] [address] [place] [address] Dr. Raul Pereira Hemoglobin (Bld) [Mass/Vol] 13.1 g/dL Normal 12.0-16.0 [facility] Comment on above: Performed By: #### C BC #### [facility] [address] [place] [address] Dr. Raul Pereira IG # 0.02 10e3/ul Normal 0.00-0.03 [facility] Comment on above: Performed By: #### C BC #### [facility] [address] [place] [address] Dr. Raul Pereira IG % 0.2 % Normal 0.0-0.5 [facility] Comment on above: Performed By: #### C BC #### [facility] [address] [place] [address] Dr. Raul Pereira LYMPH # 2.0 103/ul Normal 1.2-3.8 [facility] Comment on above: Performed By: #### C BC #### [facility] [address] [place] [address] Dr. Raul Pereira Lymphocytes/100 WBC (Bld) 24.8 % Normal 20.5-60.0 [facility] Comment on above: Performed By: #### C BC #### [facility] [address] [place] [address] Dr. Raul Pereira MANUAL DIFF REQ NO Normal [facility] Comment on above: Performed By: #### C BC #### [facility] [address] [place] [address] Dr. Ralu Pereira MCH (RBC) [Entitic mass] 25.3 pg Critically low 26.7-34.0 [facility] Comment on above: Performed By: #### C BC #### [facility] [address] [place] [address] Dr. Raul Pereira MCHC (RBC) [Mass/Vol] 30.9 g/dL Normal 29.9-35.2 [facility] Comment on above: Performed By: #### C BC #### [facility] [address] [place] [address] Dr. Raul Pereira MCV (RBC) [Entitic vol] 82.0 fL Normal 81.0-99.0 [facility] Comment on above: Performed By: #### C BC #### [facility] [address] [place] [address] Dr. Raul Pereira MONO # 0.7 103/ul Normal 0.3-0.8 [facility] Comment on above: Performed By: #### C BC #### [facility] [address] [place] [address] Dr. Raul Pereira Monocytes/100 WBC (Bld) 8.8 % Normal 1.7-12.0 [facility] Comment on above: Performed By: #### C BC #### [facility] [address] [place] [address] Dr. Raul Pereira NEUT # 5.2 103/ul Normal 1.4-6.5 [facility] Comment on above: Performed By: #### C BC #### [facility] [address] [place] [address] Dr. Raul Pereira Neutrophils/100 WBC (Bld) 63.9 % Normal 43.0-75.0 [facility] Comment on above: Performed By: #### C BC #### [facility] [address] [place] [address] Dr. aRul Pereira Platelet mean volume (Bld) [Entitic vol] 9.2 fL Critically low 9.5-13.5 [facility] Comment on above: Performed By: #### C BC #### [facility] [address] [place] [address] Dr. Raul Pereira PLT 334 103/ul Normal 150-450 [facility] Comment on above: Performed By: #### C BC #### [facility] [address] [place] [address] Dr. Raul Pereira RBC 5.17 106/ul Normal 4.20-5.40 [facility] Comment on above: Performed By: #### C BC #### [facility] [address] [place] [address] Dr. Raul Pereira WBC 8.2 103/ul Normal 4.0-11.0 [facility] Comment on above: Performed By: #### C BC #### [facility] [address] [place] [address] Dr. Raul Pereira SARA - LIPID PROFILEon 2022 CHOL-HDL RATIO NORM SEE BELOW Normal [facility] Comment on above: Result Comment: 3.3 - 4.4 LOW RISK 4.4 - 7.1 AVERAGE RISK 7.1 - 11.0 MODERATE RISK >11.0 HIGH RISK Performed By: #### D ATLIPI ####[facility] [address] [place], [place] [address]Vw. Aranzapetr Pereira Cholesterol [Mass/Vol] 178 mg/dL Normal <=200 [facility] Comment on above: Performed By: #### D ATLIPI ####[facility] [address] [place], [place] [address]Mp. Aranzapetr Pereira Cholesterol in HDL [Mass/Vol] 73 mg/dL Critically high 40-60 [facility] Comment on above: Performed By: #### D ATLIPI ####[facility] [address] [place], [place] [address]Qs. Raul Pereira Cholesterol in LDL [Mass/Vol] 72.0 mg/dL Normal [facility] Comment on above: Performed By: #### D ATLIPI ####[facility] [address] [place], [place] [address]Dm. Raul Pereira Cholesterol.total/C holesterol in HDL [Mass ratio] 2.4 {ratio} Normal [facility] Comment on above: Performed By: #### D ATLIPI ####[facility] [address] [id number]. Raul Pereira HDL NORMAL > or = 60 mg/dl - LO W CARDIOVASCULAR RISK <40 mg/dl - HIGH CARDIOVASCULAR RISK Normal [facility] Comment on above: Performed By: #### D ATLIPI ####[facility] [address] [id number]. Raul Pereira LDL CALC NORMAL SEE BELOW Normal [facility] Comment on above: Result Comment: <100 mg/dl OPTIMAL 100 - 129 mg/dl NEAR OR ABOVE OPTIMAL 130 - 159 mg/dl BORDERLINE HIGH 160 - 189 mg/dl HIGH >190 mg/dl VERY HIGH Performed By: #### D ATLIPI ####[facility] [address] [id number]. Raul Pereira Triglyceride [Mass/Vol] 165 mg/dL Critically high <=150 [facility] Comment on above: Performed By: #### D ATLIPI ####[facility] [address] [id number]. Raul Pereira VLDL CALC 33.0 mg/dL Normal [facility] Comment on above: Performed By: #### D ATLIPI ####[facility] [address] [address]Dr. Raul Pereira DRUG SCREEN RAPID (URINE)on 01-31-2023 AMP Positive Abnormal NEGATIVE [facility] Comment on above: Performed By: #### C BC #### [facility] [address] [address] [address] Raul Pereira BAR Negative Normal NEGATIVE [facility] Comment on above: Performed By: #### C BC #### [facility] [address] [address] [address] Raul Pereira BUP Positive Abnormal NEGATIVE [facility] Comment on above: Performed By: #### C BC #### [facility] [address] [place] [address] Dr. Raul Pereira BZO Negative Normal NEGATIVE [facility] Comment on above: Performed By: #### C BC #### [facility] [address] [place] [address] Dr. Raul Pereira RADHA Negative Normal NEGATIVE [facility] Comment on above: Performed By: #### C BC #### [facility] [address] [place] [address] Dr. Raul Pereira CUT-OFFS SEE BELOW Normal [facility] Comment on above: Result Comment: AMP [...] ng/mL Performed By: #### C BC #### [facility] [address] [place] [address] Dr. Raul Pereira DRUG CUT HEADER DRUG CLASS TEST SYST EM CUT-OFF CONCENTRATIONS ARE FOLLOWS: Normal [facility] Comment on above: Performed By: #### C BC #### [facility] [address] [place] [address] Dr. Raul Pereira mAMP Negative Normal NEGATIVE [facility] Comment on above: Performed By: #### C BC #### [facility] [address] [place] [address] Dr. Raul Pereira MTD Negative Normal NEGATIVE [facility] Comment on above: Performed By: #### C BC #### [facility] [address] [place] [address] Dr. Raul Pereira OPI Negative Normal NEGATIVE [facility] Comment on above: Performed By: #### C BC #### [facility] [address] [place] [address] Dr. Raul Pereira OXY Negative Normal NEGATIVE [facility] Comment on above: Performed By: #### C BC #### [facility] [address] [place] [address] Dr. Raul Pereira PCP Negative Normal NEGATIVE [facility] Comment on above: Performed By: #### C BC #### [facility] [address] [place] [address] Dr. Raul Pereira PPX Negative Normal NEGATIVE [facility] Comment on above: Performed By: #### C BC #### [facility] [address] [place] [address] Dr. Raul Pereira TCA Positive Abnormal NEGATIVE [facility] Comment on above: Performed By: #### C BC #### [facility] [address] [place] [address] Dr. Raul Pereira THC Negative Normal NEGATIVE [facility] Comment on above: Performed By: #### C BC #### [facility] [address] [place] [address] Dr. Raul Pereiar FREE THYROXINE INDEX T7on FTI 2.89 Normal 1.30-4.50 [facility] Comment on above: Performed By: #### C VDTBH #### [facility] [address] [address] [address] Raul Pereira T3U 39.0 % Normal 30.0-39.0 [facility] Comment on above: Performed By: #### C VDTBH #### [facility] [address] [address] [address] Raul Pereira T4 [Mass/Vol] 7.40 ug/dL Normal 4.80-13.90 [facility] Comment on above: Performed By: #### C VDTBH #### [facility] [address] [address] [address] Raul Pereira GLYCOHEMOGLOBIN A1Con 2022 ADA RECOMMENDATION SEE BELOW Normal [facility] Comment on above: Result Comment: ADA RECOMMENDED LIMIT 4.0 - 6.0 ADA THERAPEUTIC TARGET < 7.0 ACTION SUGGESTED > 7.0 Performed By: #### D ATA1C ####[facility] [address] [address]Dr. Raul Pereira Glucose [Mass/Vol] 108 mg/dL Normal [facility] Comment on above: Performed By: #### D ATA1C ####[facility] [address] [address]Dr. Raul Pereira HbA1c (Bld) [Mass fraction] 5.4 % Normal 4.5-6.2 [facility] Comment on above: Performed By: #### D ATA1C ####[facility] [address] [address]Dr. Raul Pereira IRONon 01-31-2023 Iron [Mass/Vol] 225.0 ug/dL Critically high 50.0-170.0 [facility] Comment on above: Performed By: #### C VDTBH #### [facility] [address] [address] [address] Raul Pereira PROF 14(COMP METB)on 023 Albumin [Mass/Vol] 3.8 g/dL Normal 3.4-5.0 [facility] Comment on above: Performed By: #### C VDTBH #### [facility] [address] [address] [address] Raul Pereira Albumin/Globulin [Mass ratio] 1.2 {ratio} Normal [facility] Comment on above: Performed By: #### C VDTBH #### [facility] [address] [place] [address] Dr. Raul Pereira ALP [Catalytic activity/Vol] 77 U/L Normal 46-116 [facility] Comment on above: Performed By: #### C VDTBH #### [facility] [address] [place] [address] Dr. Raul Pereira ALT [Catalytic activity/Vol] 19 U/L Normal 14-59 [facility] Comment on above: Performed By: #### C VDTBH #### [facility] [address] [place] [address] Dr. Raul Pereira Anion gap [Moles/Vol] 12.9 mmol/L Normal [facility] Comment on above: Performed By: #### C VDTBH #### [facility] [address] [place] [address] Dr. Raul Preeira AST [Catalytic activity/Vol] 17 U/L Normal 15-37 [facility] Comment on above: Performed By: #### C VDTBH #### [facility] [address] [place] [address] Dr. Raul Pereira Bilirubin [Mass/Vol] 0.3 mg/dL Normal 0.2-1.0 [facility] Comment on above: Performed By: #### C VDTBH #### [facility] [address] [place] [address] Dr. Raul Pereira Calcium [Mass/Vol] 8.9 mg/dL Normal 8.5-10.1 [facility] Comment on above: Performed By: #### C VDTBH #### [facility] [address] [place] [address] Dr. Raul Pereira Chloride [Moles/Vol] 101 mmol/L Normal 98-107 [facility] Comment on above: Performed By: #### C VDTBH #### [facility] [address] [place] [address] Dr. Raul Pereira CO2 [Moles/Vol] 28.5 mmol/L Normal 21.0-32.0 [facility] Comment on above: Performed By: #### C VDTBH #### [facility] [address] [place] [address] Dr. Raul Pereira Creatinine [Mass/Vol] 0.59 mg/dL Normal 0.55-1.02 [facility] Comment on above: Performed By: #### C VDTBH #### [facility] [address] [address] [address] Raul Pereira EGFR-AF MICRONESIAN >60 Normal >=60 [facility] Comment on above: Performed By: #### C VDTBH #### [facility] [address] [place] [address] Dr. Raul Pereira EGFR-NON AF MICRONESIAN >60 Normal >=60 [facility] Comment on above: Performed By: #### C VDTBH #### [facility] [address] [place] [address] Dr. Raul Pereira Globulin (S) [Mass/Vol] 3.1 g/dL Normal [facility] Comment on above: Performed By: #### C VDTBH #### [facility] [address] [place] [address] Dr. Raul Pereira Glucose [Mass/Vol] 84 mg/dL Normal 74-106 [facility] Comment on above: Performed By: #### C VDTBH #### [facility] [address] [place] [address] Dr. Raul Pereira Potassium [Moles/Vol] 4.4 mmol/L Normal 3.5-5.1 [facility] Comment on above: Performed By: #### C VDTBH #### [facility] [address] [place] [address] Dr. Raul Pereira Protein [Mass/Vol] 6.9 g/dL Normal 6.4-8.2 [facility] Comment on above: Performed By: #### C VDTBH #### [facility] [address] [place] [address] Dr. Raul Pereira Sodium [Moles/Vol] 138 mmol/L Normal 136-145 [facility] Comment on above: Performed By: #### C VDTBH #### [facility] [address] [place] [address] Dr. Raul Pereira Urea nitrogen [Mass/Vol] 11.0 mg/dL Normal 7.0-18.0 [facility] Comment on above: Performed By: #### C VDTBH #### [facility] [address] [place] [address] Dr. Raul Pereira Urea nitrogen/Creatinine [Mass ratio] 18.6 mg/mg Normal [facility] Comment on above: Performed By: #### C VDTBH #### [facility] [address] [place] [address] Dr. Raul Pereira TSHon 01-31-2023 TSH 2.354 uIU/mL Normal 0.358-3.740 [facility] Comment on above: Performed By: #### C VDTBH #### [facility] [address] [place] [address] Dr. Raul Pereira UA RANDOM W/MICROSCOPICon BACTERIA NONE SEEN Normal NONE SEEN [facility] Comment on above: Performed By: #### C BC #### [facility] [address] [place] [address] Dr. Raul Pereira Bilirubin Ql (U) Negative Normal NEGATIVE [facility] Comment on above: Performed By: #### C BC #### [facility] [address] [place] [address] Dr. Raul Pereira CAST NONE SEEN Normal NONE SEEN [facility] Comment on above: Performed By: #### C BC #### [facility] [address] [place] [address] Dr. Raul Pereira Clarity (U) CLEAR Normal CLEAR [facility] Comment on above: Performed By: #### C BC #### [facility] [address] [place] [address] Dr. Raul Pereira Color (U) YELLOW Normal YELLOW [facility] Comment on above: Performed By: #### C BC #### [facility] [address] [place] [address] Dr. Raul Pereira Crystals LM Nom (Urine sed) NONE SEEN Normal NONE SEEN [facility] Comment on above: Performed By: #### C BC #### [facility] [address] [place] [address] Dr. Raul Pereira Epithelial cells LM Ql (Urine sed) NONE SEEN Normal NONE SEEN /RARE [facility] Comment on above: Performed By: #### C BC #### [facility] [address] [place] [address] Dr. Raul Pereira Glucose Ql (U) Negative Normal NEGATIVE [facility] Comment on above: Performed By: #### C BC #### [facility] [address] [place] [address] Dr. Raul Pereira Hemoglobin Ql (U) Negative Normal NEGATIVE [facility] Comment on above: Performed By: #### C BC #### [facility] [address] [place] [address] Dr. Raul Pereira Ketones Ql (U) Negative Normal NEGATIVE [facility] Comment on above: Performed By: #### C BC #### [facility] [address] [place] [address] Dr. Raul Pereira LEUKOCYTES Negative Normal NEGATIVE [facility] Comment on above: Performed By: #### C BC #### [facility] [address] [place] [address] Dr. Raul Pereira MUCOUS NONE SEEN Normal NONE SEEN [facility] Comment on above: Performed By: #### C BC #### [facility] [address] [place] [address] Dr. Raul Pereira Nitrite Ql (U) Negative Normal NEGATIVE [facility] Comment on above: Performed By: #### C BC #### [facility] [address] [place] [address] Dr. Raul Pereira pH (U) 5.5 [pH] Normal 5-9 [facility] Comment on above: Performed By: #### C BC #### [facility] [address] [place] [address] Dr. Raul Pereira RBC NONE SEEN Abnormal 0-2 [facility] Comment on above: Performed By: #### C BC #### [facility] [address] [place] [address] Dr. Raul Pereira SPEC GRAVITY 1.030 Abnormal 1.005-<=1.02 5 [facility] Comment on above: Performed By: #### C BC #### [facility] [address] [place] [address] Dr. Raul Pereira UA PROTEIN Negative Normal NEGATIVE/ TRACE [facility] Comment on above: Performed By: #### C BC #### [facility] [address] [place] [address] Dr. Raul Pereira Urobilinogen Qn (U) 0.2 {Farrukh'U}/dL Normal 0.2 - 1. 0 [facility] Comment on above: Performed By: #### C BC #### [facility] [address] [place] [address] Dr. Raul Peerira WBC NONE SEEN Normal NONE SEEN [facility] Comment on above: Performed By: #### C BC #### [facility] [address] [place] [address] Dr. Raul Pereira VITAMIN D 25 OHon 01-31-2023 VIT D 25-OH 40.8 ng/mL Normal [facility] Comment on above: Performed By: #### C VDTBH #### [facility] [address] [place] [address] Dr. Raul Pereira VIT D RANGES SEE BELOW Normal [facility] Comment on above: Result Comment: <20 ng/mL Vit D deficient 20 - <30 ng/mL Vit D insufficient 30 - 100 ng/mL Vit D sufficient >100 ng/mL Potential Toxicity Performed By: #### C VDTBH #### [facility] [address] [place] [address] Dr. Raul Pereira VC VENOUS REFLUX ALEXUS LMTon 0 01-30-2023 VC VENOUS REFLUX ALEXUS LMT Patient: RHETT MEJIA Exam Date: 01/30/2023 : 1960 Gender:F Ordering : DR NAPOLEON RAHMAN . Admission #: [id number] Family : Order #: [id number] CLICK HERE TO VIEW EXAM RADIOLOGY REPORT [...] thrombus. Compressibility: Normal. Flow: Deep venous reflux. Oncology Technician:Mid/medial lower leg 4.3 mm with 0.8s reflux. [...] great saphenous vein along with dilated, incompetent hospital director veins and numerous branch saphenous varicosities. 2. 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 Proximal closer with endovenous laser ablation may be beneficial followed by treatment with microfoam chemical ablation. Incompetent lower leg hospital director vein which may contribute to patient's reflux; laser ablation is recommended. Dilated, incompetent branch saphenous varicosities which would benefit from microfoam chemical ablation. 3. Consultation for endovenous ablation is recommended. Dictated by: Jessica Lipscomb M.D. on 01/31/2023 at 09:46 Approved by: Jessica Lipscomb M.D. on 01/31/2023 at 09:51 Normal [facility] CBC AUTO DIFFon 01-13-2023 BASO # 0.0 103/ul Normal 0.0-0.1 [facility] Comment on above: Performed By: #### C BC #### [facility] [address] [address] [address] Raul Pereira Basophils/100 WBC (Bld) 0.5 % Normal 0.2-2.0 [facility] Comment on above: Performed By: #### C BC #### [facility] [address] [place], [place] [address] Dr. Raul Pereira EO # 0.1 103/ul Normal 0.0-0.7 [facility] Comment on above: Performed By: #### C BC #### [facility] [address] [place] [address] Dr. Raul Pereira Eosinophils/100 WBC (Bld) 1.7 % Normal 0.9-7.0 [facility] Comment on above: Performed By: #### C BC #### [facility] [address] [place] [address] Dr. Raul Pereira Erythrocyte distribution width (RBC) [Ratio] 18.4 % Critically high 11.0-15.0 [facility] Comment on above: Performed By: #### C BC #### [facility] [address] [place] [address] Dr. Raul Pereira Hematocrit (Bld) [Volume fraction] 33.1 % Critically low 36.0-48.0 [facility] Comment on above: Performed By: #### C BC #### [facility] [address] [place] [address] Dr. Raul Pereira Hemoglobin (Bld) [Mass/Vol] 10.4 g/dL Critically low 12.0-16.0 [facility] Comment on above: Performed By: #### C BC #### [facility] [address] [place] [address] Dr. Raul Pereira IG # 0.03 10e3/ul Normal 0.00-0.03 [facility] Comment on above: Performed By: #### C BC #### [facility] [address] [place] [address] Dr. Raul Pereira IG % 0.4 % Normal 0.0-0.5 [facility] Comment on above: Performed By: #### C BC #### [facility] [address] [place] [address] Dr. Raul Pereira LYMPH # 1.9 103/ul Normal 1.2-3.8 [facility] Comment on above: Performed By: #### C BC #### [facility] [address] [place] [address] Dr. Raul Pereira Lymphocytes/100 WBC (Bld) 25.2 % Normal 20.5-60.0 [facility] Comment on above: Performed By: #### C BC #### [facility] [address] [place] [address] Dr. Raul Pereira MANUAL DIFF REQ NO Normal [facility] Comment on above: Performed By: #### C BC #### [facility] [address] [place] [address] Dr. Raul Pereira MCH (RBC) [Entitic mass] 24.1 pg Critically low 26.7-34.0 [facility] Comment on above: Performed By: #### C BC #### [facility] [address] [place] [address] Dr. Raul Pereira MCHC (RBC) [Mass/Vol] 31.4 g/dL Normal 29.9-35.2 [facility] Comment on above: Performed By: #### C BC #### [facility] [address] [place] [address] Dr. Raul Pereira MCV (RBC) [Entitic vol] 76.6 fL Critically low 81.0-99.0 [facility] Comment on above: Performed By: #### C BC #### [facility] [address] [place] [address] Dr. Raul Pereira MONO # 0.8 103/ul Normal 0.3-0.8 [facility] Comment on above: Performed By: #### C BC #### [facility] [address] [place] [address] Dr. Raul Pereira Monocytes/100 WBC (Bld) 10.7 % Normal 1.7-12.0 [facility] Comment on above: Performed By: #### C BC #### [facility] [address] [place] [address] Dr. Raul Pereira NEUT # 4.7 103/ul Normal 1.4-6.5 [facility] Comment on above: Performed By: #### C BC #### [facility] [address] [place] [address] Dr. Raul Pereira Neutrophils/100 WBC (Bld) 61.5 % Normal 43.0-75.0 [facility] Comment on above: Performed By: #### C BC #### [facility] [address] [place], [place] [address] Dr. Raul Pereira Platelet mean volume (Bld) [Entitic vol] 8.6 fL Critically low 9.5-13.5 [facility] Comment on above: Performed By: #### C BC #### [facility] [address] [place], [place] [address] Dr. Raul Pereira PLT 461 103/ul Critically high 150-[address] [facility] Comment on above: Performed By: #### C BC #### [facility] [address] [place], [place] [address] Dr. Raul Pereira RBC 4.32 106/ul Normal 4.20-5.40 [facility] Comment on above: Performed By: #### C BC #### [facility] [address] [place], [place] [address] Dr. Raul Pereira WBC 7.6 103/ul Normal 4.0-11.0 [facility] Comment on above: Performed By: #### C BC #### [facility] [address] [place], [place] [address] Dr. Raul Pereira FREE THYROXINE INDEX T7on FTI 2.10 Normal 1.30-4.50 [facility] Comment on above: Performed By: #### T 7, CMP, TSH, LIPID ####[facility] [address] [place], [place] [address]DjDr. Raul Pereira T3U 35.0 % Normal 30.0-39.0 [facility] Comment on above: Performed By: #### T 7, CMP, TSH, LIPID ####[facility] [address] [place], [place] [address]IgDr. Raul Pereira T4 [Mass/Vol] 6.00 ug/dL Normal 4.80-13.90 [facility] Comment on above: Performed By: #### T 7, CMP, TSH, LIPID ####[facility] [address] [place], [place] [address]DdDr. Raul Pereira GLYCOHEMOGLOBIN A1Con 2022 ADA RECOMMENDATION SEE BELOW Normal [facility] Comment on above: Result Comment: ADA RECOMMENDED LIMIT 4.0 - 6.0 ADA THERAPEUTIC TARGET < 7.0 ACTION SUGGESTED > 7.0 Performed By: #### C VDTBH #### [facility] [address] [address] [address] Raul Pereira Glucose [Mass/Vol] 108 mg/dL Normal [facility] Comment on above: Performed By: #### C VDTBH #### [facility] [address] [address] [address] Raul Pereira HbA1c (Bld) [Mass fraction] 5.4 % Normal 4.5-6.2 [facility] Comment on above: Performed By: #### C VDTBH #### [facility] [address] [address] [address] Raul Pereira IRON AND TIBCon 01-13-2023 % SATURATION 3.5 % Normal [facility] Comment on above: Performed By: #### F ETIBC, B12FOL, VITAD ####[facility] [address] [address]Dr. Raul Pereira Iron [Mass/Vol] 18.0 ug/dL Critically low 50.0-170.0 [facility] Comment on above: Performed By: #### F ETIBC, B12FOL, VITAD ####[facility] [address] [address]Dr. Raul Pereira TIBC DIRECT 513.0 ug/dL Critically high 250.0-450.0 [facility] Comment on above: Performed By: #### F ETIBC, B12FOL, VITAD ####[facility] [address] [address]DrLeann Pereira LIPID PROFILEon 01-13-2023 CHOL-HDL RATIO NORM SEE BELOW Normal [facility] Comment on above: Result Comment: 3.3 - 4.4 LOW RISK 4.4 - 7.1 AVERAGE RISK 7.1 - 11.0 MODERATE RISK >11.0 HIGH RISK Performed By: #### T 7, CMP, TSH, LIPID ####[facility] [address] [place] [id number]. Raul Pereira Cholesterol [Mass/Vol] 190 mg/dL Normal <=200 [facility] Comment on above: Performed By: #### T 7, CMP, TSH, LIPID ####[facility] [address] [id number]. Raul Pereira Cholesterol in HDL [Mass/Vol] 71 mg/dL Critically high 40-60 [facility] Comment on above: Performed By: #### T 7, CMP, TSH, LIPID ####[facility] [address] [place] [id number]. Raul Pereira Cholesterol in LDL [Mass/Vol] 104.6 mg/dL Normal [facility] Comment on above: Performed By: #### T 7, CMP, TSH, LIPID ####[facility] [address] [id number]. Raul Pereira Cholesterol.total/C holesterol in HDL [Mass ratio] 2.7 {ratio} Normal [facility] Comment on above: Performed By: #### T 7, CMP, TSH, LIPID ####[facility] [address] [place] [id number]. Raul Pereira HDL NORMAL > or = 60 mg/dl - LO W CARDIOVASCULAR RISK <40 mg/dl - HIGH CARDIOVASCULAR RISK Normal [facility] Comment on above: Performed By: #### T 7, CMP, TSH, LIPID ####[facility] [address] [place] [id number]. Raul Pereira LDL CALC NORMAL SEE BELOW Normal [facility] Comment on above: Result Comment: <100 mg/dl OPTIMAL 100 - 129 mg/dl NEAR OR ABOVE OPTIMAL 130 - 159 mg/dl BORDERLINE HIGH 160 - 189 mg/dl HIGH >190 mg/dl VERY HIGH Performed By: #### T 7, CMP, TSH, LIPID ####[facility] [address] [id number]. Raul Pereira Triglyceride [Mass/Vol] 72 mg/dL Normal <=150 [facility] Comment on above: Performed By: #### T 7, CMP, TSH, LIPID ####[facility] [address] [id number]. Raul Pereira VLDL CALC 14.4 mg/dL Normal [facility] Comment on above: Performed By: #### T 7, CMP, TSH, LIPID ####[facility] [address] [address]Dr. Raul Pereira PROF 14(COMP METB)on 023 Albumin [Mass/Vol] 3.5 g/dL Normal 3.4-5.0 [facility] Comment on above: Performed By: #### T 7, CMP, TSH, LIPID ####[facility] [address] [id number]. Raul Pereira Albumin/Globulin [Mass ratio] 1.1 {ratio} Normal [facility] Comment on above: Performed By: #### T 7, CMP, TSH, LIPID ####[facility] [address] [address]Dr. Raul Pereira ALP [Catalytic activity/Vol] 92 U/L Normal 46-116 [facility] Comment on above: Performed By: #### T 7, CMP, TSH, LIPID ####[facility] [address] [address]Dr. Raul Pereira ALT [Catalytic activity/Vol] 17 U/L Normal 14-59 [facility] Comment on above: Performed By: #### T 7, CMP, TSH, LIPID ####[facility] [address] [address]Dr. Raul Pereira Anion gap [Moles/Vol] 10.0 mmol/L Normal [facility] Comment on above: Performed By: #### T 7, CMP, TSH, LIPID ####[facility] [address] [id number]. Raul Pereira AST [Catalytic activity/Vol] 17 U/L Normal 15-37 [facility] Comment on above: Performed By: #### T 7, CMP, TSH, LIPID ####[facility] [address] [id number]. Raul Pereira Bilirubin [Mass/Vol] 0.2 mg/dL Normal 0.2-1.0 [facility] Comment on above: Performed By: #### T 7, CMP, TSH, LIPID ####[facility] [address] [address]Dr. Raul Pereira Calcium [Mass/Vol] 8.8 mg/dL Normal 8.5-10.1 [facility] Comment on above: Performed By: #### T 7, CMP, TSH, LIPID ####[facility] [address] [place], [place] [address]Dr. Raul Pereira Chloride [Moles/Vol] 101 mmol/L Normal 98-107 [facility] Comment on above: Performed By: #### T 7, CMP, TSH, LIPID ####[facility] [address] [place], [place] [address]Dr. Raul Pereira CO2 [Moles/Vol] 29.4 mmol/L Normal 21.0-32.0 [facility] Comment on above: Performed By: #### T 7, CMP, TSH, LIPID ####[facility] [address] [place], [place] [address]Dr. Raul Pereira Creatinine [Mass/Vol] 0.50 mg/dL Critically low 0.55-1.02 [facility] Comment on above: Performed By: #### T 7, CMP, TSH, LIPID ####[facility] [address] [address]Dr. Raul Pereira EGFR-AF MICRONESIAN >60 Normal >=60 [facility] Comment on above: Performed By: #### T 7, CMP, TSH, LIPID ####[facility] [address] [place], [place] [address]Dr. Raul Pereira EGFR-NON AF MICRONESIAN >60 Normal >=60 [facility] Comment on above: Performed By: #### T 7, CMP, TSH, LIPID ####[facility] [address] [address]Dr. Raul Pereira Globulin (S) [Mass/Vol] 3.2 g/dL Normal [facility] Comment on above: Performed By: #### T 7, CMP, TSH, LIPID ####[facility] [address] [id number]. Raul Pereira Glucose [Mass/Vol] 88 mg/dL Normal 74-106 [facility] Comment on above: Performed By: #### T 7, CMP, TSH, LIPID ####[facility] [address] [address]Dr. Raul Pereira Potassium [Moles/Vol] 4.4 mmol/L Normal 3.5-5.1 [facility] Comment on above: Performed By: #### T 7, CMP, TSH, LIPID ####[facility] [address] [address]Dr. Raul Pereira Protein [Mass/Vol] 6.7 g/dL Normal 6.4-8.2 [facility] Comment on above: Performed By: #### T 7, CMP, TSH, LIPID ####[facility] [address] [address]Dr. Raul Pereira Sodium [Moles/Vol] 136 mmol/L Normal 136-145 [facility] Comment on above: Performed By: #### T 7, CMP, TSH, LIPID ####[facility] [address] [address]Dr. Raul Pereira Urea nitrogen [Mass/Vol] 12.0 mg/dL Normal 7.0-18.0 [facility] Comment on above: Performed By: #### T 7, CMP, TSH, LIPID ####[facility] [address] [address]Dr. Raul Pereira Urea nitrogen/Creatinine [Mass ratio] 24.0 mg/mg Normal [facility] Comment on above: Performed By: #### T 7, CMP, TSH, LIPID ####[facility] [address] [address]Dr. Raul Pereira TSHon 01-13-2023 TSH 1.623 uIU/mL Normal 0.358-3.740 [facility] Comment on above: Performed By: #### T 7, CMP, TSH, LIPID ####[facility] [address] [address]Dr. Raul Pereira VIT B12 AND FOLATEon 023 Cobalamin (Vitamin B12) [Mass/Vol] 872.0 pg/mL Normal 193.0-986.0 [facility] Comment on above: Performed By: #### F ETIBC, B12FOL, VITAD ####[facility] [address] [address]Dr. Raul Pereira FOLATE 21.20 ng/mL Normal 8.60-58.90 [facility] Comment on above: Performed By: #### F ETIBC, B12FOL, VITAD ####[facility] [address] [address]Dr. Raul Pereira VITAMIN D 25 OHon 01-13-2023 VIT D 25-OH 40.6 ng/mL Normal [facility] Comment on above: Performed By: #### F ETIBC, B12FOL, VITAD ####[facility] [address] [address]Dr. Raul Pereira VIT D RANGES SEE BELOW Normal [facility] Comment on above: Result Comment: <20 ng/mL Vit D deficient 20 - <30 ng/mL Vit D insufficient 30 - 100 ng/mL Vit D sufficient >100 ng/mL Potential Toxicity Performed By: #### F ETIBC, B12FOL, VITAD ####[facility] [address] [address]Dr. Raul Pereira CBC AUTO DIFFon 01-10-2023 BASO # 0.1 103/ul Normal 0.0-0.1 [facility] Comment on above: Performed By: #### C VDTBH #### [facility] [address] [address] [address] Raul Pereira Basophils/100 WBC (Bld) 0.6 % Normal 0.2-2.0 [facility] Comment on above: Performed By: #### C VDTBH #### [facility] [address] [address] [address] Raul Pereira EO # 0.1 103/ul Normal 0.0-0.7 [facility] Comment on above: Performed By: #### C VDTBH #### [facility] [address] [place] [address] Dr. Raul Pereira Eosinophils/100 WBC (Bld) 1.3 % Normal 0.9-7.0 [facility] Comment on above: Performed By: #### C VDTBH #### [facility] [address] [place] [address] Dr. Raul Pereira Erythrocyte distribution width (RBC) [Ratio] 18.4 % Critically high 11.0-15.0 [facility] Comment on above: Performed By: #### C VDTBH #### [facility] [address] [place] [address] Dr. Raul Pereira Hematocrit (Bld) [Volume fraction] 37.8 % Normal 36.0-48.0 [facility] Comment on above: Performed By: #### C VDTBH #### [facility] [address] [place] [address] Dr. Raul Pereira Hemoglobin (Bld) [Mass/Vol] 11.6 g/dL Critically low 12.0-16.0 [facility] Comment on above: Performed By: #### C VDTBH #### [facility] [address] [place] [address] Dr. Raul Pereira IG # 0.02 10e3/ul Normal 0.00-0.03 [facility] Comment on above: Performed By: #### C VDTBH #### [facility] [address] [place] [address] Dr. Raul Pereira IG % 0.3 % Normal 0.0-0.5 [facility] Comment on above: Performed By: #### C VDTBH #### [facility] [address] [place] [address] Dr. Raul Pereira LYMPH # 1.7 103/ul Normal 1.2-3.8 [facility] Comment on above: Performed By: #### C VDTBH #### [facility] [address] [place] [address] Dr. Raul Pereira Lymphocytes/100 WBC (Bld) 21.0 % Normal 20.5-60.0 [facility] Comment on above: Performed By: #### C VDTBH #### [facility] [address] [place] [address] Dr. Raul Pereira MANUAL DIFF REQ NO Normal [facility] Comment on above: Performed By: #### C VDTBH #### [facility] [address] [place] [address] Dr. Raul Pereira MCH (RBC) [Entitic mass] 24.1 pg Critically low 26.7-34.0 [facility] Comment on above: Performed By: #### C VDTBH #### [facility] [address] [place] [address] Dr. Raul Pereira MCHC (RBC) [Mass/Vol] 30.7 g/dL Normal 29.9-35.2 [facility] Comment on above: Performed By: #### C VDTBH #### [facility] [address] [place] [address] Dr. Raul Pereira MCV (RBC) [Entitic vol] 78.6 fL Critically low 81.0-99.0 [facility] Comment on above: Performed By: #### C VDTBH #### [facility] [address] [place] [address] Dr. Raul Pereira MONO # 0.6 103/ul Normal 0.3-0.8 [facility] Comment on above: Performed By: #### C VDTBH #### [facility] [address] [place] [address] Dr. Raul Pereira Monocytes/100 WBC (Bld) 7.5 % Normal 1.7-12.0 [facility] Comment on above: Performed By: #### C VDTBH #### [facility] [address] [place] [address] Dr. Raul Pereira NEUT # 5.4 103/ul Normal 1.4-6.5 [facility] Comment on above: Performed By: #### C VDTBH #### [facility] [address] [place] [address] Dr. Raul Pereira Neutrophils/100 WBC (Bld) 69.3 % Normal 43.0-75.0 [facility] Comment on above: Performed By: #### C VDTBH #### [facility] [address] [address] [address] Raul Pereira Platelet mean volume (Bld) [Entitic vol] 9.0 fL Critically low 9.5-13.5 [facility] Comment on above: Performed By: #### C VDTBH #### [facility] [address] [id number] [address] Raul Pereira PLT 516 103/ul Critically high 150-[address] [facility] Comment on above: Performed By: #### C VDTBH #### [facility] Laboratory [address] [place] [address] Dr. Raul Pereira RBC 4.81 106/ul Normal 4.20-5.40 [facility] Comment on above: Performed By: #### C VDTBH #### [facility] [address] [place] [address] Dr. Raul Pereira WBC 7.8 103/ul Normal 4.0-11.0 [facility] Comment on above: Performed By: #### C VDTBH #### [facility] [address] [place] [address] Dr. Raul Pereira CULTURE BLOODon 01-10-2023 Microscopic examination of blood, culture Culture Observations: NO GROWTH AT 5 DAYS. Normal [facility] Comment on above: Performed By: #### B [id number] #### [facility] [address] [place], [place] [id number] Dr. Raul Pereira Microscopic examination of blood, culture Culture Observations: NO GROWTH AT 5 DAYS. Normal [facility] Comment on above: Performed By: #### B [id number] ####[facility] [address] [id number]. Raul Pereira PROF 14(COMP METB)on 023 Albumin [Mass/Vol] 3.7 g/dL Normal 3.4-5.0 [facility] Comment on above: Performed By: #### C BC #### [facility] [address] [place] [address] Dr. Raul Pereira Albumin/Globulin [Mass ratio] 0.9 {ratio} Normal [facility] Comment on above: Performed By: #### C BC #### [facility] [address] [place] [address] Dr. Raul Pereira ALP [Catalytic activity/Vol] 105 U/L Normal 46-116 [facility] Comment on above: Performed By: #### C BC #### [facility] [address] [place] [address] Dr. Raul Pereira ALT [Catalytic activity/Vol] 18 U/L Normal 14-59 [facility] Comment on above: Performed By: #### C BC #### [facility] [address] [place] [address] Dr. Raul Pereira Anion gap [Moles/Vol] 10.8 mmol/L Normal [facility] Comment on above: Performed By: #### C BC #### [facility] [address] [place] [address] Dr. Raul Pereira AST [Catalytic activity/Vol] 21 U/L Normal 15-37 [facility] Comment on above: Performed By: #### C BC #### [facility] [address] [place] [address] Dr. Raul Pereira Bilirubin [Mass/Vol] 0.3 mg/dL Normal 0.2-1.0 [facility] Comment on above: Performed By: #### C BC #### [facility] [address] [place] [address] Dr. Raul Pereira Calcium [Mass/Vol] 9.1 mg/dL Normal 8.5-10.1 [facility] Comment on above: Performed By: #### C BC #### [facility] [address] [place] [address] Dr. Raul Pereira Chloride [Moles/Vol] 100 mmol/L Normal 98-107 [facility] Comment on above: Performed By: #### C BC #### [facility] [address] [place] [address] Dr. Raul Pereira CO2 [Moles/Vol] 30.8 mmol/L Normal 21.0-32.0 [facility] Comment on above: Performed By: #### C BC #### [facility] [address] [address] [address] Raul Pereira Creatinine [Mass/Vol] 0.58 mg/dL Normal 0.55-1.02 [facility] Comment on above: Performed By: #### C BC #### [facility] [address] [address] [address] Raul Pereira EGFR-AF MICRONESIAN >60 Normal >=60 [facility] Comment on above: Performed By: #### C BC #### [facility] [address] [address] [address] Raul Pereira EGFR-NON AF MICRONESIAN >60 Normal >=60 [facility] Comment on above: Performed By: #### C BC #### [facility] [address] [place] [address] Dr. Raul Pereira Globulin (S) [Mass/Vol] 4.1 g/dL Normal [facility] Comment on above: Performed By: #### C BC #### [facility] [address] [place] [address] Dr. Raul Pereira Glucose [Mass/Vol] 86 mg/dL Normal 74-106 [facility] Comment on above: Performed By: #### C BC #### [facility] [address] [place] [address] Dr. Raul Pereira Potassium [Moles/Vol] 4.6 mmol/L Normal 3.5-5.1 [facility] Comment on above: Performed By: #### C BC #### [facility] [address] [place] [address] Dr. Raul Pereira Protein [Mass/Vol] 7.8 g/dL Normal 6.4-8.2 [facility] Comment on above: Performed By: #### C BC #### [facility] [address] [place] [address] Dr. Raul Pereira Sodium [Moles/Vol] 137 mmol/L Normal 136-145 [facility] Comment on above: Performed By: #### C BC #### [facility] [address] [place], [place] [address] Dr. Raul Pereira Urea nitrogen [Mass/Vol] 9.0 mg/dL Normal 7.0-18.0 [facility] Comment on above: Performed By: #### C BC #### [facility] [address] [place], [place] [address] Dr. Raul Pereira Urea nitrogen/Creatinine [Mass ratio] 15.5 mg/mg Normal [facility] Comment on above: Performed By: #### C BC #### [facility] [address] [place], [place] [address] Dr. Raul Pereira US PREMA DOP LEG [...] JESSICA LIPSCOMB Date: 2023-01-10 10:43 Normal [facility]on 11-18 SARS-CoV-2 (COVID-19) RNA IMELDA+probe Ql (Unsp spec) Not detected Normal NOT DETECTED [facility] Comment on above: Result Comment: This test is not yet approved or cleared by the [place] FDA. When there are no FDA-approved or cleared tests available, and other criteria are met, FDA can make tests available under an emergency access mechanism called an Emergency Use Authorization (EUA). The EUA for this test is supported by the [place] of Health and Human Service's (HHS's) declaration [...] SARS-CoV-2. Performed By: #### C VDTBH #### [facility] [address] [place] [address] Dr. Raul Pereira CALCIUMon 12-03-2022 Calcium [Mass/Vol] 9.7 mg/dL Normal 8.5-10.1 [facility] Comment on above: Performed By: #### C VDTBH #### [facility] [address] [place] [address] Dr. Raul Pereira CREATININEon 12-03-2022 Creatinine [Mass/Vol] 0.53 mg/dL Critically low 0.55-1.02 [facility] Comment on above: Performed By: #### C BC #### [facility] [address] [place] [address] Dr. Raul Pereira EGFR-AF MICRONESIAN >60 Normal >=60 [facility] Comment on above: Performed By: #### C BC #### [facility] [address] [place] [address] Dr. aRul Pereira EGFR-NON AF MICRONESIAN >60 Normal >=60 [facility] Comment on above: Performed By: #### C BC #### [facility] [address] [place] [address] Dr. Raul Pereira Office Visiton 08-27-2022 Follow-up visit [id number] Lex Mejia L 1960 F Date Provider Department Center 08/27/2022 MICAELA MATA [facility] SURG Second Fl No family history on file Level of Service:15641 [place] POSTOP FOLLOW UP VISIT RELATED TO ORIGINAL PX Reason for Visit and Comments: Post-op [483] - Rhett is here today for a post op visit, s/p 08/16/22 JOSE ZEESHAN Normal [facility] HISTOLOGY - TISSUE EXAMon LAB AP CASE REPORT Normal [facility] Comment on above: Order Comment: Pre-o p diagnosis:Calculus of gallbladder without cholecystitis without obstruction [K80.20] Result Comment: Surg ical Pathology Case: [id number] Authorizing Provider: Micaela Gupta MD Collected: 08/16/2022 0842 Ordering Location: [facility] Main Operating Room Received: 08/16/2022 1001 Pathologist: Maricruz Warren MD Specimen: Gallbladder, GALLBLADDER Performed By: #### L [id number] ####[facility] (BEAKER)[address] [place] [address] LAB AP CLINICAL INFORMATION Normal [facility] Comment on above: Order Comment: Pre-o p diagnosis:Calculus of gallbladder without cholecystitis without obstruction [K80.20] Result Comment: Pre- op diagnosis: Calculus of gallbladder without cholecystitis without obstruction [K80.20] Performed By: #### L [id number] ####[facility] (BEAKER)[address] [place] [address] LAB AP GROSS DESCRIPTION A. Gallbladder. Normal [facility] Comment on above: Order [...] 0.1 to 0.2 cm in maximum thickness. Dye Winch Operator sections submitted as follows: Cassette 1: Cystic duct resection margin and neck Cassette 2: Body and fundus Ankit Koroma, Pathologists' Sociology Instructor Performed By: #### L [id number] ####[facility] (BEAKER)[address] [place] [address] LAB AP MICROSCOPIC DESCRIPTION Microscopic examination performed Normal [facility] Comment on above: Order Comment: Pre-o p diagnosis:Calculus of gallbladder without cholecystitis without obstruction [K80.20] Performed By: #### L [id number] ####[facility] ([facility] [place] [address] LAB AP REPORT FINAL DIAGNOSIS NARRATIVE [facility] Comment on above: Order Comment: Pre-o p diagnosis:Calculus of gallbladder without cholecystitis without obstruction [K80.20] Result Comment: Gall bladder, cholecystectomy: - Cholelithiasis and cholesterolosis. Performed By: #### L [id number] ####[facility] ([facility] [place] [address] HPon 08-16-2022 HP ----- ----- Attestation signed by Micaela Gupta MD at 08/16/2022 7:34 AM Attending Physician Statement I have discussed the case, including pertinent history and exam findings with Dr. Del Angel, surgical instrument mechanic and have personally seen the patient. I agree with the assessment, plan and orders as documented. [phone] pager [phone] phone ----- [facility] General Surgery HISTORY & PHYSICAL [...] History: Diagnosis Date Anxiety Arthritis Chronic bronchitis ([facility]/HCC) Depression DVT (deep venous thrombosis) ([facility]) Gall bladder disease GERD (gastroesophageal [...] Component Value (more content not included)... Normal [facility] NURSNOTEon 08-16-2022 NURSNOTE Stable. Pain minimal . DC criteria met. IV dc'd and patient getting dressed. 1155 Stable for discharge. Normal [facility] NURSNOTE DC instructions revi ewed with patient and Granddaughter, allowed time for questions, copy given. Normal [facility] NURSNOTE Report rec'd and car e assumed. No assessment changes. Pain minimal. Normal [facility] NURSNOTE 0920 Recovery called. Normal [facility] OPNOTEon 08-16-2022 OPNOTE CHOLECYSTECTOMY, LAPAROSCOPIC Operative Note Date: 08/16/2022 Location: [facility] OR Name: Rhett Mejia, : 1960, Diagnosis Pre-op Diagnosis * Calculus of gallbladder without cholecystitis without obstruction [K80.20] * History of gastric bypass [Z98.84] Post-op Diagnosis * Calculus of gallbladder without cholecystitis without obstruction [K80.20] * History of gastric bypass [Z98.84] Procedures CHOLECYSTECTOMY, LAPAROSCOPIC 52307 - [place] LAPS SURG CHOLECYSTECTOMY W/CHOLANGIOGRAPHY Surgeons * Micaela Gupta - Primary * Robyn Del Angel Procedure Summary Anesthesia: General ASA: III Estimated Blood Loss: 10 mL Total IV Fluids: 1000 mL Drains: * None in log * Specimens ID Source Type Tests Collected By Collected At Frozen? Priority Lab ID A Gallbladder Tissue HISTOLOGY - TISSUE EXAM Micaela Gupta MD 08/16/22 0842 No [id number] Description: GALLBLADDER Staff: Moveman: Zeny De La Cruz RN Scrub Person: [...] PACU - hemodynamically stable. Condition: stable Normal [facility] POCT GLUCOSE METER UNSOLICIT ED RESULTSon 08-16-2022 Glucose [Mass/Vol] 88 mg/dL Normal 70-105 [facility] Comment on above: Result Comment: epaw low Performed By: #### L [id number] #### [facility] LAB (BEAKER) [address] [place] [address] POCT SARS-COV-2 PCRon 2021 POC SARS-COV-2 ANTIGEN Negative Normal Negative [facility] Comment on above: Result Comment: ID [...] Certificate of Accreditation. Performed By: #### L [id number] ####[facility] (BEAKER)[address] [place] [address] Orders Onlyon 08-14-2022 Orders Only [id number] Lex Mejia L 1960 F Date Provider Department Center 08/14/2022 [id number], HISTORICAL [facility] PAT SC Medical C No family history on file Normal [facility] [id number] 08-13-2022 [id number] NPO after [place] Must have a pick up driver to take you home and someone to stay for 24 hours after surgery. No jewelry. Hold the meds we spoke about: NSAIDS Take the meds we spoke about w/a sip of water DOS: GAPAPENTIN, NEXIUM, INHALER, CYMBALTA Bring insurance card and ID. LABS AND COVID TO BE DONE IN [place] [facility]. Normal [facility] CBC AUTO DIFFon 08-13-2022 BASO # 0.0 103/ul Normal 0.0-0.1 [facility] Comment on above: Performed By: #### C BC #### [facility] [address] [address] [address] Raul Pereira Basophils/100 WBC (Bld) 0.4 % Normal 0.2-2.0 [facility] Comment on above: Performed By: #### C BC #### [facility] [address] [place] [address] Dr. Raul Pereira EO # 0.1 103/ul Normal 0.0-0.7 [facility] Comment on above: Performed By: #### C BC #### [facility] [address] [place] [address] Dr. Raul Pereira Eosinophils/100 WBC (Bld) 1.2 % Normal 0.9-7.0 [facility] Comment on above: Performed By: #### C BC #### [facility] [address] [place] [address] Dr. Raul Pereira Erythrocyte distribution width (RBC) [Ratio] 18.6 % Critically high 11.0-15.0 [facility] Comment on above: Performed By: #### C BC #### [facility] [address] [place] [address] Dr. Raul Pereira Hematocrit (Bld) [Volume fraction] 39.1 % Normal 36.0-48.0 [facility] Comment on above: Performed By: #### C BC #### [facility] [address] [place] [address] Dr. Raul Pereira Hemoglobin (Bld) [Mass/Vol] 12.5 g/dL Normal 12.0-16.0 [facility] Comment on above: Performed By: #### C BC #### [facility] [address] [place] [address] Dr. Raul Pereira IG # 0.03 10e3/ul Normal 0.00-0.03 [facility] Comment on above: Performed By: #### C BC #### [facility] [address] [place] [address] Dr. Raul Pereira IG % 0.4 % Normal 0.0-0.5 [facility] Comment on above: Performed By: #### C BC #### [facility] [address] [place] [address] Dr. Raul Pereira LYMPH # 2.0 103/ul Normal 1.2-3.8 [facility] Comment on above: Performed By: #### C BC #### [facility] [address] [place] [address] Dr. Raul Pereira Lymphocytes/100 WBC (Bld) 27.2 % Normal 20.5-60.0 [facility] Comment on above: Performed By: #### C BC #### [facility] [address] [place] [address] Dr. Raul Pereira MANUAL DIFF REQ NO Normal [facility] Comment on above: Performed By: #### C BC #### [facility] [address] [place] [address] Dr. Raul Pereira MCH (RBC) [Entitic mass] 27.2 pg Normal 26.7-34.0 [facility] Comment on above: Performed By: #### C BC #### [facility] [address] [place] [address] Dr. Raul Pereira MCHC (RBC) [Mass/Vol] 32.0 g/dL Normal 29.9-35.2 [facility] Comment on above: Performed By: #### C BC #### [facility] [address] [place] [address] Dr. Raul Pereira MCV (RBC) [Entitic vol] 85.2 fL Normal 81.0-99.0 [facility] Comment on above: Performed By: #### C BC #### [facility] [address] [place] [address] Dr. Raul Pereira MONO # 0.7 103/ul Normal 0.3-0.8 [facility] Comment on above: Performed By: #### C BC #### [facility] [address] [place] [address] Dr. Raul Pereira Monocytes/100 WBC (Bld) 9.3 % Normal 1.7-12.0 [facility] Comment on above: Performed By: #### C BC #### [facility] [address] [place] [address] Dr. Raul Pereira NEUT # 4.4 103/ul Normal 1.4-6.5 [facility] Comment on above: Performed By: #### C BC #### [facility] [address] [place] [address] Dr. Raul Pereira Neutrophils/100 WBC (Bld) 61.5 % Normal 43.0-75.0 [facility] Comment on above: Performed By: #### C BC #### [facility] [address] [place] [address] Dr. Raul Pereira Platelet mean volume (Bld) [Entitic vol] 8.7 fL Critically low 9.5-13.5 [facility] Comment on above: Performed By: #### C BC #### [facility] [address] [place] [address] Dr. Raul Pereira PLT 387 103/ul Normal 150-450 [facility] Comment on above: Performed By: #### C BC #### [facility] [address] [place] [address] Dr. Raul Pereira RBC 4.59 106/ul Normal 4.20-5.40 [facility] Comment on above: Performed By: #### C BC #### [facility] [address] [place] [address] Dr. Raul Pereira WBC 7.2 103/ul Normal 4.0-11.0 [facility] Comment on above: Performed By: #### C BC #### [facility] [address] [place] [address] Dr. Raul Pereira Covid-19 PCR ([facility])on 07-19 SARS-CoV-2 (COVID-19) RNA IMELDA+probe Ql (Unsp spec) Not detected Normal NOT DETECTED [facility] Comment on above: Result Comment: This test is not yet approved or cleared by the [place] FDA. When there are no FDA-approved or cleared tests available, and other criteria are met, FDA can make tests available under an emergency access mechanism called an Emergency Use Authorization (EUA). The EUA for this test is supported by the [employer] of Health and Human Service's (HHS's) declaration [...] SARS-CoV-2. Performed By: #### C VDTB #### [facility] [address] [place] [address] Dr. Raul Pereira PROF CHEM 8 (BAS METB)on Anion gap [Moles/Vol] 11.5 mmol/L Normal [facility] Comment on above: Performed By: #### C BC #### [facility] [address] [place] [address] Dr. Raul Pereira Calcium [Mass/Vol] 9.5 mg/dL Normal 8.5-10.1 [facility] Comment on above: Performed By: #### C BC #### [facility] [address] [place] [address] Dr. Raul Pereira Chloride [Moles/Vol] 101 mmol/L Normal 98-107 [facility] Comment on above: Performed By: #### C BC #### [facility] [address] [place] [address] Dr. Raul Pereira CO2 [Moles/Vol] 29.6 mmol/L Normal 21.0-32.0 [facility] Comment on above: Performed By: #### C BC #### [facility] [address] [place] [address] Dr. Raul Pereira Creatinine [Mass/Vol] 0.65 mg/dL Normal 0.55-1.02 [facility] Comment on above: Performed By: #### C BC #### [facility] [address] [place] [address] Dr. Raul Pereira EGFR-AF MICRONESIAN >60 Normal >=60 [facility] Comment on above: Performed By: #### C BC #### [facility] [address] [address] [address] Raul Pereira EGFR-NON AF MICRONESIAN >60 Normal >=60 [facility] Comment on above: Performed By: #### C BC #### [facility] [address] [address] [address] Raul Pereira Glucose [Mass/Vol] 104 mg/dL Normal 74-106 [facility] Comment on above: Performed By: #### C BC #### [facility] [address] [address] [address] Raul Pereira Potassium [Moles/Vol] 4.1 mmol/L Normal 3.5-5.1 [facility] Comment on above: Performed By: #### C BC #### [facility] [address] [address] [address] Raul Pereira Sodium [Moles/Vol] 138 mmol/L Normal 136-145 [facility] Comment on above: Performed By: #### C BC #### [facility] [address] [address] [address] Raul Pereira Urea nitrogen [Mass/Vol] 11.0 mg/dL Normal 7.0-18.0 [facility] Comment on above: Performed By: #### C BC #### [facility] [address] [address] [address] Raul Pereira Urea nitrogen/Creatinine [Mass ratio] 16.9 mg/mg Normal [facility] Comment on above: Performed By: #### C BC #### [facility] [address] [address] [address] Raul Pereira Office Visiton 08-06-2022 Follow-up visit [id number] Lex Mejia rrmonica L 1960 F Date Provider Department Center 08/06/2022 Nella-MICAELA GUPTA [facility] SURG Second Fl No family history on file Level of Service:23109 [place] OFFICE/OUTPATIENT ESTABLISHED LOW MDM 20-29 MIN Reason for Visit and Comments: Consult [484] - Rhett is here for a gallbladder consult. Rhett also c/o swelling in right leg with pain in calf. Normal [facility] PROTIME-INRon 08-06-2022 INR IN PPP BY COAGULATION ASSAY 0.89 Low 0.90-1.10 [facility] Comment on above: Result Comment: ACCC [...] 1995;[id number]. Performed By: #### L [id number] #### [facility] ([facility]) [address] [place] [address] PROTHROMBIN TIME (PT) IN PPP BY COAGULATION ASSAY 12.1 Seconds Low 12.3-14.8 [facility] Comment on above: Performed By: #### L [id number] #### [facility] ([facility]) [address] [place] [address] CT ABD/PELVIS WO CONon 07-24 CT ABD/PELVIS [...] LIPSCOMB Date: 2022-07-24 17:21 Normal [facility] HEPATOBILIARY SCAN W EFon 07-18-2022 [place] HEPATOBILIARY SCAN W EF EXAMINATION: NM HEPATOBILIARY [...] by: MEAGHAN SKINNER Date: 2022-07-18 10:22 Normal [facility] CBC AUTO DIFFon 07-13-2022 BASO # 0.0 103/ul Normal 0.0-0.1 [facility] Comment on above: Performed By: #### C BC #### [facility] [address] [place] [address] Dr. Raul Pereira Basophils/100 WBC (Bld) 0.5 % Normal 0.2-2.0 [facility] Comment on above: Performed By: #### C BC #### [facility] [address] [place] [address] Dr. Raul Pereira EO # 0.1 103/ul Normal 0.0-0.7 [facility] Comment on above: Performed By: #### C BC #### [facility] [address] [place] [address] Dr. Raul Pereira Eosinophils/100 WBC (Bld) 0.9 % Normal 0.9-7.0 [facility] Comment on above: Performed By: #### C BC #### [facility] [address] [place] [address] Dr. Raul Pereira Erythrocyte distribution width (RBC) [Ratio] 20.2 % Critically high 11.0-15.0 [facility] Comment on above: Performed By: #### C BC #### [facility] [address] [place] [address] Dr. Raul Pereira Hematocrit (Bld) [Volume fraction] 41.1 % Normal 36.0-48.0 [facility] Comment on above: Performed By: #### C BC #### [facility] [address] [place] [address] Dr. Raul Pereira Hemoglobin (Bld) [Mass/Vol] 13.2 g/dL Normal 12.0-16.0 [facility] Comment on above: Performed By: #### C BC #### [facility] [address] [place] [address] Dr. Raul Pereira IG # 0.05 10e3/ul Critically high 0.00-0.03 [facility] Comment on above: Performed By: #### C BC #### [facility] [address] [place] [address] Dr. Raul Pereira IG % 0.6 % Critically high 0.0-0.[address] [facility] Comment on above: Performed By: #### C BC #### [facility] [address] [place] [address] Dr. Raul Pereira LYMPH # 1.4 103/ul Normal 1.2-3.8 [facility] Comment on above: Performed By: #### C BC #### [facility] [address] [place] [address] Dr. Raul Pereira Lymphocytes/100 WBC (Bld) 17.3 % Critically low 20.5-60.0 [facility] Comment on above: Performed By: #### C BC #### [facility] [address] [place] [address] Dr. Raul Pereira MANUAL DIFF REQ NO Normal [facility] Comment on above: Performed By: #### C BC #### [facility] [address] [place] [address] Dr. Raul Pereira MCH (RBC) [Entitic mass] 27.3 pg Normal 26.7-34.0 [facility] Comment on above: Performed By: #### C BC #### [facility] [address] [place] [address] Dr. Raul Pereira MCHC (RBC) [Mass/Vol] 32.1 g/dL Normal 29.9-35.2 [facility] Comment on above: Performed By: #### C BC #### [facility] [address] [place] [address] Dr. Raul Pereira MCV (RBC) [Entitic vol] 84.9 fL Normal 81.0-99.0 [facility] Comment on above: Performed By: #### C BC #### [facility] [address] [place] [address] Dr. Raul Pereira MONO # 0.8 103/ul Normal 0.3-0.8 [facility] Comment on above: Performed By: #### C BC #### [facility] [address] [place] [address] Dr. Raul Pereira Monocytes/100 WBC (Bld) 10.0 % Normal 1.7-12.0 [facility] Comment on above: Performed By: #### C BC #### [facility] [address] [address] [address] Raul Pereira NEUT # 5.8 103/ul Normal 1.4-6.5 [facility] Comment on above: Performed By: #### C BC #### [facility] [address] [place] [address] Dr. Raul Pereira Neutrophils/100 WBC (Bld) 70.7 % Normal 43.0-75.0 [facility] Comment on above: Performed By: #### C BC #### [facility] [address] [place] [address] Dr. Raul Pereira Platelet mean volume (Bld) [Entitic vol] 9.1 fL Critically low 9.5-13.5 [facility] Comment on above: Performed By: #### C BC #### [facility] [address] [place] [address] Dr. Raul Pereira PLT 358 103/ul Normal 150-450 [facility] Comment on above: Performed By: #### C BC #### [facility] [address] [place] [address] Dr. Raul Pereira RBC 4.84 106/ul Normal 4.20-5.40 [facility] Comment on above: Performed By: #### C BC #### [facility] [address] [place] [address] Dr. Raul Pereira WBC 8.1 103/ul Normal 4.0-11.0 [facility] Comment on above: Performed By: #### C BC #### [facility] [address] [place] [address] Dr. Raul Pereira LIPASEon 07-13-2022 Lipase [Catalytic activity/Vol] 47.0 U/L Critically low 73.0-393.0 [facility] Comment on above: Performed By: #### C BC #### [facility] [address] [place] [address] Dr. Raul Pereira PROF 14(COMP METB)on 022 Albumin [Mass/Vol] 3.6 g/dL Normal 3.4-5.0 [facility] Comment on above: Performed By: #### C BC #### [facility] [address] [place] [address] Dr. Raul Pereira Albumin/Globulin [Mass ratio] 1.0 {ratio} Normal [facility] Comment on above: Performed By: #### C BC #### [facility] [address] [place] [address] Dr. Raul Pereira ALP [Catalytic activity/Vol] 88 U/L Normal 46-116 [facility] Comment on above: Performed By: #### C BC #### [facility] [address] [place] [address] Dr. Raul Pereira ALT [Catalytic activity/Vol] 16 U/L Normal 14-59 [facility] Comment on above: Performed By: #### C BC #### [facility] [address] [place] [address] Dr. Raul Pereira Anion gap [Moles/Vol] 13.2 mmol/L Normal [facility] Comment on above: Performed By: #### C BC #### [facility] [address] [place] [address] Dr. Raul Pereira AST [Catalytic activity/Vol] 15 U/L Normal 15-37 [facility] Comment on above: Performed By: #### C BC #### [facility] [address] [place] [address] Dr. Raul Pereira Bilirubin [Mass/Vol] 0.2 mg/dL Normal 0.2-1.0 [facility] Comment on above: Performed By: #### C BC #### [facility] [address] [place] [address] Dr. Raul Pereira Calcium [Mass/Vol] 9.5 mg/dL Normal 8.5-10.1 [facility] Comment on above: Performed By: #### C BC #### [facility] [address] [place] [address] Dr. Raul Pereira Chloride [Moles/Vol] 100 mmol/L Normal 98-107 [facility] Comment on above: Performed By: #### C BC #### [facility] [address] [address] [address] Raul Pereira CO2 [Moles/Vol] 28.0 mmol/L Normal 21.0-32.0 [facility] Comment on above: Performed By: #### C BC #### [facility] [address] [address] [address] Raul Pereira Creatinine [Mass/Vol] 0.78 mg/dL Normal 0.55-1.02 [facility] Comment on above: Performed By: #### C BC #### [facility] [address] [address] [address] Raul Pereira EGFR-AF MICRONESIAN >60 Normal >=60 [facility] Comment on above: Performed By: #### C BC #### [facility] [address] [place] [address] Dr. Raul Pereira EGFR-NON AF MICRONESIAN >60 Normal >=60 [facility] Comment on above: Performed By: #### C BC #### [facility] [address] [place] [address] Dr. Raul Pereira Globulin (S) [Mass/Vol] 3.6 g/dL Normal [facility] Comment on above: Performed By: #### C BC #### [facility] [address] [place] [address] Dr. Raul Pereira Glucose [Mass/Vol] 86 mg/dL Normal 74-106 [facility] Comment on above: Performed By: #### C BC #### [facility] [address] [address] [address] Raul Pereira Potassium [Moles/Vol] 4.2 mmol/L Normal 3.5-5.1 [facility] Comment on above: Performed By: #### C BC #### [facility] [address] [place] [address] Dr. Raul Pereira Protein [Mass/Vol] 7.2 g/dL Normal 6.4-8.2 [facility] Comment on above: Performed By: #### C BC #### [facility] [address] [place] [address] Dr. Raul Pereira Sodium [Moles/Vol] 137 mmol/L Normal 136-145 [facility] Comment on above: Performed By: #### C BC #### [facility] [address] [place], [place] [address] Dr. Raul Pereira Urea nitrogen [Mass/Vol] 11.0 mg/dL Normal 7.0-18.0 [facility] Comment on above: Performed By: #### C BC #### [facility] [address] [place], [place] [address] Dr. Raul Pereira Urea nitrogen/Creatinine [Mass ratio] 14.1 mg/mg Normal [facility] Comment on above: Performed By: #### C BC #### [facility] [address] [place], [place] [address] Dr. Raul Pereira US SINGLE QUAD RT [...] MICAH ROSAS Date: 2022-07-13 16:33 Normal [facility] ([facility]on 06-17 SARS-CoV-2 (COVID-19) RNA IMELDA+probe Ql (Unsp spec) Not detected Normal NOT DETECTED [facility] Comment on above: Result Comment: This test is not yet approved or cleared by the [place] FDA. When there are no FDA-approved or cleared tests available, and other criteria are met, FDA can make tests available under an emergency access mechanism called an Emergency Use Authorization (EUA). The EUA for this test is supported by the [employer] of Health and Human Service's (HHS's) declaration [...] By: #### [facility] #### [facility] [address] [place] [address] Dr. Raul Pereira Endoscopy Reporton 8 Endoscopy Report [id number] Surgery Date: 02/24/2018 Room #: Z0 Date of : 1960 PROCEDURE NOTEATTENDING: Xin Beasley M.D.PROCEDURE PERFORMED: EGD.TIE MILL OPERATOR: Dr. Noland.SEDATION:1. Versed 10 mg.2. Fentanyl 250 [...] 02/24/2018/09:53 Kiara/Ruddy Noland M.D.Date Trans: 02/24/2018 12:13 P/[id number] cc: Napoleon Rahman M.D. [address] [place] Craig [facility] [address] [facility] Endoscopy Report MR#: [id number] Name: Rhett Mejia Surgery Date: 02/24/2018 Room #: Z0 Date of : 1960 PROCEDURE NOTEATTENDING: Xin Beasley M.D.PROCEDURE PERFORMED: Colonoscopy and polypectomy.TIE MILL OPERATOR: Ruddy Noland M.D.SEDATION: Versed 10 mg and [...] 02/24/2018/09:57 A/Ruddy Noland M.D.Date Trans: 02/24/2018 10:12 A/Aditya_JN:[id number] cc: Napoleon Rahman M.D. [address], [facility] [address] Normal [facility] POC GLUCOSE LABon 02-24-2018 Glucose mass conc 87 mg/dL Normal 70-100 [facility] Comment on above: Performed By: #### 8 [id number] ####[facility] Vital Signs Date Time Vital Sign Value Performing Clinician Facility NEGATED: Highlighted row BMI (Body Mass Index) [facility] NEGATED: Highlighted row Body Temperature [facility] NEGATED: Highlighted row Body weight [facility] NEGATED: Highlighted row BP Diastolic [facility] NEGATED: Highlighted row BP Systolic [facility] NEGATED: Highlighted row Height Gene [facility] NEGATED: Highlighted row Pulse (Heart Rate) [facility] NEGATED: Highlighted row Pulse Oximetry [facility] NEGATED: Highlighted row Respiratory Rate [facility] Encounters Encounter Date Encounter Type Care Provider Facility Start: 07-30-2024 ambulatory Cristian Johnson acility:[facility] Start: 06-21-2024 End: 06-21-2024 ambulatory Monica Malagon MD Facility:[facility] Start: 09-22-2023 End: 09-22-2023 ambulatory Monica Malagon MD Facility: [facility] Start: 04-08-[address] NAPOLEON RAHMAN . [...] abnormal findings DR NAPOLEON RAHMAN . [facility] Start: 01-31-2023 End: 02-01-2023 Encounter for general [...] laboratory examination DR BETHEL LITTLE . [facility] Start: 12-13-2022 End: 12-14-[address] BETHEL [...] . Facility:[facility] Start: 08-27-2022 End: 08-27-2022 ambulatory [facility] Start: 08-16-2022 End: 08-16-2022 ambulatory [facility] Start: 08-15-2022 Encounter for other preprocedural examination DR MICAELA GUPTA [facility] Start: 08-15-2022 Encounter for preprocedural laboratory examination DR MICAELA GUPTA [facility] Start: 08-13-2022 End: 08-14-[address] MICAELA GUPTA Facility:[facility] Start: 08-13-2022 End: 08-14-2022 Encounter for other preprocedural examination DR MICAELA GUPTA Facility:[facility] Start: 08-06-2022 End: 08-07-2022 ambulatory [facility] Start: 08-06-2022 End: 08-06-2022 ambulatory [facility] Start: 08-06-2022 ambulatory [facility] Start: 07-24-2022 End: 07-25-[address] [...] Start: 02-24-2018 End: 02-25-2018 Ambulatory XIN BEASLEY Facility:[facility] Start: 10-19-2014 End: 10-19-2014 Patient encounter procedure [facility] Start: 12-22-2013 End: 12-22-2013 Departed Referred [facility] Start: 10-12-2001 End: 10-12-2001 Patient encounter procedure [facility] Start: 09-01-2001 End: 09-01-2001 Patient encounter procedure [facility] Start: 08-26-2001 End: 08-26-2001 Patient encounter procedure [facility] Start: 03-21-1999 End: 03-28-1999 Evaluation and management of inpatient [facility] Start: 09-07-1997 End: 09-07-1997 Admission to day surgery [facility] Start: 07-21-1997 End: 07-21-1997 Emergency department patient visit [facility] Procedures Date Procedure Procedure Detail Performing Clinician Start: 02-24-2018 Colsc flx w/removal lesion by hot bx forceps XIN BEASLEY Payers Date Payer Category Payer Unknown 2015 Medicare 1960 Self-pay 1960 Self-pay [id number] 1960 Unknown [id number] 1960 Unknown [id number] 2.16.84 0.1.491640.3.579.2.593 1960 Unknown [id number] 2.16.84 0.1.366452.3.579.2.593 1959 Unknown [id number] 2.16.84 0.1.095173.3.579.2.593 1959 Unknown [id number] 2.16.84 0.1.550985.3.579.2.593 1959 Unknown [id number] 2.16.84 0.1.767767.3.579.2.593 1959 Unknown [id number] 2.16.84 0.1.110830.3.579.2.593 1959 Unknown [id number] 2.16.84 0.1.677278.3.579.2.593 1959 Unknown [id number] 2.16.84 0.1.004141.3.579.2.593 1959 Unknown [id number] 2.16.84 0.1.678223.3.579.2.593 1959 Unknown [id number] 2.16.84 0.1.313283.3.579.2.593 1959 Unknown [id number] 2.16.84 0.1.355992.3.579.2.593 1959 Unknown [id number] 2.16.84 0.1.666740.3.579.2.593 1959 Unknown [id number] 2.16.84 0.1.838409.3.579.2.593 1959 Unknown [id number] 2.16.84 0.1.257849.3.579.2.593 1959 Unknown [id number] 2.16.84 0.1.321008.3.579.2.593 1959 Unknown [id number] 2.16.84 0.1.593125.3.579.2.593 1959 Unknown [id number] 2.16.84 0.1.302642.3.579.2.593 1959 Unknown [id number] 2.16.84 0.1.386230.3.579.2.593 1959 Unknown [id number] 2.16.84 0.1.864335.3.579.2.593 1959 Unknown [id number] 2.16.84 0.1.226520.3.579.2.593 1959 Unknown [id number] 2.16.84 0.1.267638.3.579.2.593 1959 Unknown [id number] 2.16.84 0.1.939490.3.579.2.593 1959 Unknown [id number] 2.16.84 0.1.840476.3.579.2.593 1959 Unknown [id number] 2.16.84 0.1.612151.3.579.2.593 1959 Unknown [id number] 2.16.84 0.1.136677.3.579.2.593 1959 Unknown [id number] 2.16.84 0.1.511431.3.579.2.593 1959 Unknown [id number] 2.16.84 0.1.854405.3.579.2.593 1959 Unknown [id number] 2.16.84 0.1.934635.3.579.2.593 1959 Unknown [id number] 2.16.84 0.1.762179.3.579.2.593 1959 Unknown [id number] 2.16. 840.1.406484.3.579.2.196 1959 Unknown [id number] .16. 840.1.400660.3.579.2.196 Medicare [id number] [id number] Unknown [id number] Unknown [id number] 2.16.84 0.1.685044.3.579.2.593 Unknown [id number] 2.16.8 40.1.341463.3.579.2.531 Clinical Notes 05-15-2022 to 02-18-2023 Note Date [...] our patients to inform us about any ercq-irr-uetqptk medications or herbal remedies/nutritional supplements/alternative remedies. 2. [...] options with their primary care provider. [facility] 01-16-2023 Note CONSULTATION CONSULTATION DATE: 01/16/2023 HISTORY: [...] up in the clinic post epidural. [facility] 12-04-2022 Note CONSULTATION CONSULTATION DATE: 12/04/2022 HISTORY [...] in the office after the procedure. [facility] 11-15-2022 Note CONSULTATION PROCEDURE DATE: 11/15/2022 PREOPERATIVE [...] the office following her RFA procedure. [facility] 11-15-2022 Note CONSULTATION CONSULTATION DATE: 11/15/2022 HISTORY [...] measures such as heat and stretches. [facility] 08-29-2022 Note CONSULTATION PROCEDURE DATE: 08/29/2022 PREOPERATIVE [...] pattern. Patient tolerated the procedure well. [facility] 08-29-2022 Note CONSULTATION CONSULTATION DATE: 08/29/2022 HISTORY [...] up in the office post procedure. [facility] 08-29-2022 Note CONSULTATION CONSULTATION DATE: 08/29/2022 ADDENDUM: Addendum to peer plan: We will repeat radiofrequency ablation starting on the right side and subsequently moving to the left at T11, T12 and L1, L2. [facility] 08-27-2022 Note Subjective Patient ID: Rhett Mejia [...] past 36 hour(s)). No follow-ups on file. [facility] 08-16-2022 Note Patient: Rhett rousseau Procedure Summary Date: 08/16/22 Room / Location: [facility] OPERATING ROOM 01 / [facility] Operating Room Anesthesia Start: 734 Anesthesia [...] no known notable events for this encounter. [facility] 08-16-2022 Note Airway Date/Time: 08/16/2022 7:44 AM Urgency: elective Airway not difficult General Information and Staff Patient location during procedure: OR Anesthesiologist: Cassi Velez MD Resident/OPHTHALMIC TECH/CAA: LEONARD Canales Performed: resident/OPHTHALMIC TECH/CAA Indications and Patient Condition Indications for airway [...] before airway management; Dentures to Circ RN [facility] 08-16-2022 Note Patient: Rhett rousseau Procedure Information Date/Time: 08/16/22 0730 Procedure: CHOLECYSTECTOMY, LAPAROSCOPIC, WITH INTRAOPERATIVE CHOLANGIOGRAM, WITH LAPAROTOMY IF INDICATED REQ ERIC OR MANDO HUERTA MAUK, WOODSON - C-ARM AVAIL STAFF REQUESTS: LENIN DE LA CRUZ Location: [facility] OPERATING ROOM 01 / [facility] Operating Room Surgeons: Micaela Gupta MD [...] Plan discussed with CAA. Additional Equipment Requests [facility] 08-06-2022 Note Subjective Patient ID: Rhett [...] past 36 hour(s)). No follow-ups on file. [facility] 08-06-2022 Note Subjective Patient ID: Rhett [...] past 36 hour(s)). No follow-ups on file. [facility] 06-12-2022 Note CONSULTATION PROCEDURE DATE: 06/12/2022 [...] The patient tolerated the procedure well. [facility] 06-12-2022 Note CONSULTATION CONSULTATION DATE: 06/12/2022 HISTORY [...] agrees to the plan of care. [facility] 05-15-2022 Note CONSULTATION CONSULTATION DATE: 05/15/2022 HISTORY [...] Patient agrees with the plan of care. [facility] Signed and Approved by: RUBY RAMIREZ . 05/16/2022 13:38:00 [facility] 05-15-2022 Note CONSULTATION PROCEDURE DATE: 05/15/2022 PREOPERATIVE [...] will be followed up in the office. [facility] Signed and Approved by: RUBY RAMIREZ . 05/16/2022 13:38:00 [facility] Summary Purpose Family History No Family History Records FoundNo Family History Records FoundNo Family History Records FoundNo Family History Records FoundNo Family History Records Found Advance Directives No Advanced Directives Records FoundNo Advanced Directives Records FoundNo Advanced Directives Records FoundNo Advanced Directives Records FoundNo Advanced Directives Records Found Additional Source Comments INFORMATION SOURCE (unrecogn ized section and content) DATE CREATED AUTHOR 05/07/2018 [facility] DATE CREATED AUTHOR AUTHOR'S ORGANIZ ATION 09/26/2022 [facility] DATE CREATED AUTHOR AUTHOR'S ORGANIZ ATION 03/28/2023 [facility] DATE CREATED AUTHOR AUTHOR'S ORGANIZ ATION 07/25/2024 [facility] DATE CREATED AUTHOR AUTHOR'S ORGANIZ ATION 08/01/2024 [facility] FOR RECORDS PERTAINING TO PATIENTS [...] BE BASED ON THE PRIMARY CLINICAL RECORDS. [facility] [employer] provides no warranty or guarantee of the accuracy or completeness of information in this document.
--- NOTE | 2024-08-05 10:57 | P.CN_ITS ---
Consult Note: HPI Data of Consult Patient: known to practice within the last 3 years Requesting Physician: Jennie Rowe NP Primary Care Provider: Ke Rahman MD Consult Narrative Reason for consult: f/u Narrative: Vida Richard a pleasant 63 year old female presents for evaluation and management of chronic low back pain. Patients PCP manages most of her medications, we prescribe flexeril 5mg TID PRN which she utilizes with benefit. Patient recently underwent repeat bilateral L2/3 L4/5 facet RFAs with >80% improvement in axial low back pain. Pain today 8/10 constant increasing with twisting pushing pulling standing walking lifting housework stairs and activity, pain improved with lying down, sitting for short periods of time, and ice. Patient recently underwent bilateral T10/11 T11/12 MBB #1 with >80% improvement ongoing. cc:: CC: Jennie Rowe NP Review of Systems ROS Status of ROS 10 or more systems reviewed and unremark able except as noted in history and below Musculoskeletal Reports: back pain and extremity pain PFSH PFSH Medical History (Updated 08/05/24 @ 11:00 by Jennie Rowe NP) Upper back pain ?M54.9 - Dorsalgia, unspecified (ICD-10) Back pain ?M54.9 - Dorsalgia, unspecified (ICD-10) Neck pain ?M54.2 - Cervicalgia (ICD-10) Suicidal behavior ?R45.89 - Other symptoms and signs involving emotional state (ICD-10) Panic attack ?F41.0 - Panic disorder [episodic paroxysmal anxiety] (ICD-10) Depressed ?F32.A - Depression, unspecified (ICD-10) Anxiety ?F41.9 - Anxiety disorder, unspecified (ICD-10) Hearing deficit ?H91.90 - Unspecified hearing loss, unspecified ear (ICD-10) Acid reflux ?K21.9 - Gastro-esophageal reflux disease without esophagitis (ICD-10) Left thyroid nodule ?E04.1 - Nontoxic single thyroid nodule (ICD-10) Smoker ?F17.200 - Nicotine dependence, unspecified, uncomplicated (ICD-10) Asthmatic bronchitis ?J45.909 - Unspecified asthma, uncomplicated (ICD-10) Surgical History History of cholecystectomy ?Z90.49 - Acquired absence of other specified parts of digestive tract (ICD- 10) H/O discectomy ?Z98.890 - Other specified postprocedural states (ICD-10) H/O: hysterectomy ?Z90.710 - Acquired absence of both cervix and uterus (ICD-10) Gastric bypass status for obesity ?Z98.84 - Bariatric surgery status (ICD-10) Meds Home Medications and Allergies Home Medications ?Medication ?Instructions ?Recorded ?Confirmed ?Type buprenorphine 10 mcg/hour weekly 1 patch transdermal QWEEK 05/01/23 08/02/24 History transdermal patch (Butrans) calcium carbonate 600 mg-vitamin cap PO .QD 05/01/23 History D3 5 mcg (200 unit) capsule (Calcium 600 + D(3)) cholecalciferol (vitamin D3) 10 10 mcg PO DAILY 05/01/23 08/02/24 History mcg (400 unit) capsule cyclobenzaprine 5 mg tablet 5 mg PO TID 05/01/23 08/02/24 History dextroamphetamine-amphetamine 20 20 mg PO .QD 05/01/23 08/02/24 History mg tablet diclofenac sodium 1 % topical gel 4 g topical QID 05/01/23 08/02/24 History diclofenac sodium 75 mg 75 mg PO .QD 05/01/23 08/02/24 History tablet,delayed release duloxetine 60 mg capsule,delayed 120 mg PO DAILY 05/01/23 08/02/24 History release (Cymbalta) esomeprazole magnesium 20 mg 40 mg PO DAILY 05/01/23 08/02/24 History capsule,delayed release (Nexium) gabapentin 600 mg tablet 600 mg PO TID 05/01/23 08/02/24 History lidocaine 5 % topical ointment 1 applic 05/01/23 History vitamin B complex (Complex B-100 1 tab PO DAILY 05/01/23 08/02/24 History tablet,extended release) ziprasidone HCl 20 mg capsule 20 mg PO .HS 05/01/23 08/02/24 History albuterol sulfate 2.5 mg/3 mL 2.5 mg 06/21/24 History (0.083 %) solution for nebulization Allergies Allergy/AdvReac Type Severity Reaction Status Date / Time iodine Allergy unknown Verified 08/02/24 07:50 latex Allergy Unknown Verified 08/02/24 07:50 soybean Allergy Unknown Verified 08/02/24 07:50 Sulfa (Sulfonamide Allergy unknown Verified 08/02/24 07:50 Antibiotics) IV DYE Allergy Unknown Uncoded 08/02/24 07:50 Exam Constitutional Documenting provider has reviewed patient's vital signs: yes Common normals: no apparent distress, oriented x3, healthy appearing, alert and well nourished General appearance: cooperative HENMT Common normals: normocephalic, hearing grossly normal bilaterally and moist oral mucous membranes Head and scalp: normocephalic Eye Common normals: PERRL Pupil: PERRL Neck & C-Spine Common normals: full ROM General: normal visual inspection Cervical spine: pain with cervical ROM Chest Common normals: inspection of chest normal Respiratory Common normals: normal respiratory effort, no retractions and no use of accessory muscles Back & Pelvis Thoracic spine/upper back: ROM limited, pain with ROM and thoracic spinal tenderness Lumbar spine/lower back: ROM limited, pain with ROM and straight leg raise negative bilaterally Other: positive facet loading, increased pain over T10-12 facet joints negative radiculopathy strength 5/5 in BLE increased low back pain with standing and walking, improved with forward flexion. pain following L3/4 pattern Extremity Common normals: normal to inspection and full ROM Neuro Common normals: oriented x3, CN's II-XII intact bilaterally, moves all extremities, no focal motor deficits, no sensory deficits noted and deep tendon reflexes 2+ bilaterally Sensorium/orientation: alert Gait (neuro): antalgic Motor exam: strength 5/5 throughout and no movement abnormalities noted Psych Common normals: mental status grossly normal, thought process normal, cooperative, affect normal, speech normal and activity/motor behavior normal Speech: normal speech Thought process: normal thought process Results Additional Findings Additional findings: If on a controlled substance or opioids, I have checked an [place] report on this patient and there are no aberrancies noted in the prescribing history.??If on a controlled substance or opioid a drug screen was completed and reviewed within the last year, and if there has not been a drug screen completed we ordered one today to monitor higher risk, state monitored pain medication use. As part of providing excellent, safe, comprehensive care, the following was completed at our patient's visit: 1. A medication reconciliation and review to ensure accurate knowledge of current/active medications, including asking our patients to inform us about any [id number] medications or herbal remedies/nutritional supplements/alternative remedies. 2. A review to specifically ensure our patients have had annual screening for screening for depression, screening for tobacco use, and screening for unhealthy alcohol use. For concerning screenings had a discussion with the patient, provided patient education, and recommended follow-up with primary care provider when appropriate. If patient noted with a risk of falling, they received education on strength, gait, and balance training to prevent future risk of falling. Assessment and Plan Assessment and Plan (1) Lumbar stenosis with neurogenic claudication: (2) Thoracic spondylosis: (3) Lumbar spondylosis: (4) Myofascial pain: Plan bilateral L3-4 TFESI under fluoroscopy for lumbar stenosis with NC, risks vs benefits reviewed defer bilateral T10-11 T11-12 MBB #2 working towards RFA at this time continue current medications continue f/u with PCP f/u 2 weeks after KARI
== END 2024-08-05 10:26 | disposition home or self-care (01) ==
LOC: PM 10:26
PROVIDERS: PCP Family Medicine; Visit Provider Nurse Practitioner
DX: M48.062 Spinal stenosis, lumbar region with neurogenic claudication (principal); M47.814 Spondylosis without myelopathy or radiculopathy, thoracic region; M47.816 Spondylosis without myelopathy or radiculopathy, lumbar region; M79.18 Myalgia, other site
CPT/HCPCS: G0463

== ENCOUNTER 2024-08-16 08:57 | Day surgery (SDC) | payer MEDICARE, OTHER, SELFPAY ==
--- OUTSIDE RECORDS SUMMARY | 2024-08-16 09:19 | XMS_ITS | CCD ---
Author Organization [facility] Care Team Providers Care Barking Machine Feeder Name Role Phone NAWRAS, ALI T Unavailable Unavailable NAWRAS, ALI T Unavailable Unavailable HOKelvin, NAPOLEON Unavailable Unavailable HOELSY WarrenLAS Unavailable Unavailable MT Unavailable Unavailable NAWRAS, ALI T Unavailable Unavailable [...] Unavailable HOY ., DR BENDER Attending Unavailable TAMPA, DR MEAGHAN Stanton Consulting Unavailable HOY ., [...] Unavailable HOY ., DR BENDER Attending Unavailable TAMPA, DR MEAGHAN Stanton Consulting Unavailable RAMIREZ ., [...] Admitting Unavailab Napoleon Gómez Primary [facility] Unavailable Gieditis , Monica Todd Attending Unavailable Giedraitis , Monica Todd Attending Unavailable Giedraitis , Monica Todd Attending Unavailable Allergies Allergy Classification Reported Allergen(s) Allergy Type Date of Onset Reaction(s) Facility (1 source) Contrast media; Translations: [IVP DYE] Propensity to adverse reactions (disorder) 1 [facility] Repository (2 sources) corn extract; Translations: [CORN] Drug Allergy 1 [facility] Repository (6 sources) iodine; Translations: [IODINE] Drug Allergy 9 Edema [facility] Repository (6 sources) Latex; Translations: [LATEX] Drug allergy (disorder) 9 Anaphylaxis [facility] Repository (1 source) loratadine Drug Allergy 1 [facility] Repository (2 sources) loratadine; Translations: [LORATADINE] Drug Allergy 3 [facility] Repository (1 source) montelukast Drug Allergy 1 [facility] Repository (3 sources) papaveretum; Translations: [SOYBEAN] Drug Allergy 1 [facility] Repository (2 sources) Penicillins; Translations: [PENICILLINS] Drug allergy (disorder) 1 [facility] Repository (1 source) povidone-iodine Drug Allergy 9 [facility] Repository (6 sources) propofol; Translations: [PROPOFOL] Drug Allergy 2 Anaphylaxis [facility] Repository (2 sources) wheat preparation; Translations: [WHEAT] Drug Allergy 2 [facility] Repository (5 sources) Iodinated Contrast Media; Translations: [IODINATED CONTRAST MEDIA] Allergy to Substance 4 Anaphylaxis [facility] Repository (1 source) montelukast; Translations: [MONTELUKAST] Drug Allergy 4 [facility] Repository (1 source) oxybutynin; Translations: [DITROPAN] Drug Allergy 2 [facility] Repository (1 source) Povidone-Iodine; Translations: [POVIDONE-IODINE] Drug Allergy 4 [facility] Repository (1 source) Soy protein; Translations: [SOY] Propensity to adverse reactions to drug (disorder) 2 [facility] Repository (1 source) Iodine (And Iodine Containting Drugs) Drug allergy (disorder) 4 [facility] Repository (1 source) Penicillin Drug Allergy [facility] Repository (1 source) Sulfonamides (Antibiotic) Drug allergy (disorder) 2 [facility] Repository (1 source) Iodine Drug Allergy 8 [facility] Repository (1 source) Latex Drug allergy (disorder) 8 [facility] Repository (1 source) Propofol Drug Allergy 8 [facility] Repository Medications Completed/Discontinued Medications Medication Drug [...] 07-15-2022 Episodic Other aftercare (1 source) Other rn long term care (current) drug therapy; Translations: [OTH CUSTODIAL CURRENT DRUG THERAPY] Onset: 07-15-2022 Episodic Other [...] Name Value Interpretation Reference Range Facility MRI CSPINE WO CONon 03-05-20 MRI CSPINE WO CON EXAM: MRI CSPINE WO CON [...] KRYSTIAN ALFARO Date: 2023-03-05 13:50 Normal [facility] CBC AUTO DIFFon 02-20-2023 BASO # 0.1 103/ul Normal 0.0-0.1 [facility] Comment on above: Performed By: #### C BC #### [facility] [address] [place] [address] Dr. Raul Pereira Basophils/100 WBC (Bld) 0.6 % Normal 0.2-2.0 [facility] Comment on above: Performed By: #### C BC #### [facility] [address] [place] [address] Dr. Raul Pereira EO # 0.2 103/ul Normal 0.0-0.7 [facility] Comment on above: Performed By: #### C BC #### [facility] [address] [place] [address] Dr. Raul Pereira Eosinophils/100 WBC (Bld) 2.3 % Normal 0.9-7.0 [facility] Comment on above: Performed By: #### C BC #### [facility] [address] [place] [address] Dr. Raul Pereira Hematocrit (Bld) [Volume fraction] 39.5 % Normal 36.0-48.0 [facility] Comment on above: Performed By: #### C BC #### [facility] [address] [place] [address] Dr. Raul Pereira Hemoglobin (Bld) [Mass/Vol] 12.3 g/dL Normal 12.0-16.0 [facility] Comment on above: Performed By: #### C BC #### [facility] [address] [place] [address] Dr. Raul Pereira IG # 0.03 10e3/ul Normal 0.00-0.03 [facility] Comment on above: Performed By: #### C BC #### [facility] [address] [place] [address] Dr. Raul Pereira IG % 0.4 % Normal 0.0-0.5 [facility] Comment on above: Performed By: #### C BC #### [facility] [address] [place] [address] Dr. Raul Pereira LYMPH # 2.1 103/ul Normal 1.2-3.8 [facility] Comment on above: Performed By: #### C BC #### [facility] [address] [place] [address] Dr. Raul Pereira Lymphocytes/100 WBC (Bld) 24.8 % Normal 20.5-60.0 [facility] Comment on above: Performed By: #### C BC #### [facility] [address] [place] [address] Dr. Raul Pereira MANUAL DIFF REQ NO Normal [facility] Comment on above: Performed By: #### C BC #### [facility] [address] [place] [address] Dr. Raul Pereira MCH (RBC) [Entitic mass] 26.3 pg Critically low 26.7-34.0 [facility] Comment on above: Performed By: #### C BC #### [facility] [address] [place] [address] Dr. Raul Pereira MCHC (RBC) [Mass/Vol] 31.1 g/dL Normal 29.9-35.2 [facility] Comment on above: Performed By: #### C BC #### [facility] [address] [place] [address] Dr. Raul Pereira MCV (RBC) [Entitic vol] 84.4 fL Normal 81.0-99.0 [facility] Comment on above: Performed By: #### C BC #### [facility] [address] [place] [address] Dr. Raul Pereira MONO # 1.0 103/ul Critically high 0.3-0.8 [facility] Comment on above: Performed By: #### C BC #### [facility] [address] [address] [address] Raul Pereira Monocytes/100 WBC (Bld) 11.8 % Normal 1.7-12.0 [facility] Comment on above: Performed By: #### C BC #### [facility] [address] [address] [address] Raul Pereira NEUT # 5.0 103/ul Normal 1.4-6.5 [facility] Comment on above: Performed By: #### C BC #### [facility] [address] [address] [address] Raul Pereira Neutrophils/100 WBC (Bld) 60.1 % Normal 43.0-75.0 [facility] Comment on above: Performed By: #### C BC #### [facility] [address] [place] [address] Dr. Raul Pereira Platelet mean volume (Bld) [Entitic vol] 8.8 fL Critically low 9.5-13.5 [facility] Comment on above: Performed By: #### C BC #### [facility] [address] [place] [address] Dr. Raul Pereira PLT 418 103/ul Normal 150-450 [facility] Comment on above: Performed By: #### C BC #### [facility] [address] [place] [address] Dr. Raul Pereira RBC 4.68 106/ul Normal 4.20-5.40 [facility] Comment on above: Performed By: #### C BC #### [facility] [address] [place] [address] Dr. Raul Pereira WBC 8.3 103/ul Normal 4.0-11.0 [facility] Comment on above: Performed By: #### C BC #### [facility] [address] [place] [address] Dr. Raul Pereira FERRITINon 02-20-2023 Ferritin [Mass/Vol] 15.0 ng/mL Normal 8.0-252.0 [facility] Comment on above: Performed By: #### C #### [facility] [address] [address] [address] Raul Pereira XR CSPINE 2_3 VIEWSon [...] JESSICA LIPSCOMB Date: 2023-02-19 06:42 Normal [facility] CT LUNG CANCER SCREENINGon 0 [...] by: MEAGHAN SKINNER Date: 2023-02-13 11:02 Normal [facility] ECHOCARDIO M/2D COMPLETEon 0 02-13-2023 ECHOCARDIO M/2D COMPLETE Patient: RHETT MEJIA Exam Date: 02/13/2023 : 1960 Gender:F Ordering : DR NAPOLEON RAHMAN . Admission #: [id number] Family : Order #: [id number] CLICK HERE TO VIEW EXAM ECHOCARDIOGRAM REPORT [...] M.D. on 02/13/2023 at 18:54 Normal [facility] CREATININEon 02-12-2023 Creatinine [Mass/Vol] 0.76 mg/dL Normal 0.55-1.02 [facility] Comment on above: Performed By: #### C BC #### [facility] [address] [address] [address] Raul Pereira EGFR-AF EQUATORIAL GUINEAN >60 Normal >=60 [facility] Comment on above: Performed By: #### C BC #### [facility] [address] [place] [address] Dr. Raul Pereira EGFR-NON AF EQUATORIAL GUINEAN >60 Normal >=60 [facility] Comment on above: Performed By: #### C BC #### [facility] [address] [address] [address] Raul Pereira MRI BRAIN WO W [...] by: JESSICA LIPSCOMB Date: 2023-02-12 12:37 Normal [facility] US CAROTID ART BILon 023 US [...] JESSICA LIPSCOMB Date: 2023-02-12 14:03 Normal [facility] COMPLIANCE DRUG SCREENon 03- 25-2023 PDF . Normal [facility] Comment on above: Performed By: #### C BC #### [facility] [address] [address] [address] Raul Pereira Summary FINAL Normal [facility] Comment on above: Result Comment: == [...] == Performed By: #### C BC #### [facility] [address] [place] [address] Dr. Raul Pereira CULTURE URINEon 02-02-2023 CULTURE [...] Trimethoprim/Sulfamethoxa zole <=20 S F Normal [facility] Comment on above: Performed By: #### U RCX #### [facility] [address] [place] [address] Dr. Raul Pereira AMMONIAon 01-31-2023 Ammonia (P) [Moles/Vol] 13 umol/L Normal [facility] Comment on above: Performed By: #### A MM ####[facility] [id number] [id number]. Raul Pereira CBC AUTO DIFFon 01-31-2023 BASO # 0.1 103/ul Normal 0.0-0.1 [facility] Comment on above: Performed By: #### C BC #### [facility] [address] [address] [address] Raul Pereira Basophils/100 WBC (Bld) 0.6 % Normal 0.2-2.0 [facility] Comment on above: Performed By: #### C BC #### [facility] [address] [address] [address] Raul Pereira EO # 0.1 103/ul Normal 0.0-0.7 [facility] Comment on above: Performed By: #### C BC #### [facility] [address] [place] [address] Dr. Raul Pereira Eosinophils/100 WBC (Bld) 1.7 % Normal 0.9-7.0 [facility] Comment on above: Performed By: #### C BC #### [facility] [address] [place] [address] Dr. Raul Pereira Erythrocyte distribution width (RBC) [Ratio] 25.9 % Critically high 11.0-15.0 [facility] Comment on above: Result Comment: 2+ a niso Performed By: #### C BC #### [facility] [address] [place] [address] Dr. Raul Pereira Hematocrit (Bld) [Volume fraction] 42.4 % Normal 36.0-48.0 [facility] Comment on above: Performed By: #### C BC #### [facility] [address] [address] [address] Raul Pereira Hemoglobin (Bld) [Mass/Vol] 13.1 g/dL Normal 12.0-16.0 [facility] Comment on above: Performed By: #### C BC #### [facility] [address] [place] [address] Dr. Raul Pereira IG # 0.02 10e3/ul Normal 0.00-0.03 [facility] Comment on above: Performed By: #### C BC #### [facility] [address] [place] [address] Dr. Raul Pereira IG % 0.2 % Normal 0.0-0.5 [facility] Comment on above: Performed By: #### C BC #### [facility] [address] [place] [address] Dr. Raul Pereira LYMPH # 2.0 103/ul Normal 1.2-3.8 [facility] Comment on above: Performed By: #### C BC #### [facility] [address] [place] [address] Dr. Raul Pereira Lymphocytes/100 WBC (Bld) 24.8 % Normal 20.5-60.0 [facility] Comment on above: Performed By: #### C BC #### [facility] [address] [place] [address] Dr. Raul Pereira MANUAL DIFF REQ NO Normal [facility] Comment on above: Performed By: #### C BC #### [facility] [address] [place] [address] Dr. Raul Pereira MCH (RBC) [Entitic mass] 25.3 pg Critically low 26.7-34.0 [facility] Comment on above: Performed By: #### C BC #### [facility] [address] [place] [address] Dr. Raul Pereira MCHC (RBC) [Mass/Vol] 30.9 g/dL Normal 29.9-35.2 [facility] Comment on above: Performed By: #### C BC #### [facility] [address] [place] [address] Dr. Raul Pereira MCV (RBC) [Entitic vol] 82.0 fL Normal 81.0-99.0 [facility] Comment on above: Performed By: #### C BC #### [facility] [address] [place] [address] Dr. Raul Pereira MONO # 0.7 103/ul Normal 0.3-0.8 [facility] Comment on above: Performed By: #### C BC #### [facility] [address] [place] [address] Dr. Raul Pereira Monocytes/100 WBC (Bld) 8.8 % Normal 1.7-12.0 [facility] Comment on above: Performed By: #### C BC #### [facility] [address] [address] [address] Raul Pereira NEUT # 5.2 103/ul Normal 1.4-6.5 [facility] Comment on above: Performed By: #### C BC #### [facility] [address] [place] [address] Dr. Raul Pereira Neutrophils/100 WBC (Bld) 63.9 % Normal 43.0-75.0 [facility] Comment on above: Performed By: #### C BC #### [facility] [address] [place] [address] Dr. Raul Pereira Platelet mean volume (Bld) [Entitic vol] 9.2 fL Critically low 9.5-13.5 [facility] Comment on above: Performed By: #### C BC #### [facility] [address] [place] [address] Dr. Raul Pereira PLT 334 103/ul Normal 150-450 [facility] Comment on above: Performed By: #### C BC #### [facility] [address] [place] [address] Dr. Raul Pereira RBC 5.17 106/ul Normal 4.20-5.40 [facility] Comment on above: Performed By: #### C BC #### [facility] [address] [place] [address] Dr. Raul Pereira WBC 8.2 103/ul Normal 4.0-11.0 [facility] Comment on above: Performed By: #### C BC #### [facility] [address] [place] [address] Dr. Raul Pereira SARA - LIPID PROFILEon 2022 CHOL-HDL RATIO NORM SEE BELOW Normal [facility] Comment on above: Result Comment: 3.3 - 4.4 LOW RISK 4.4 - 7.1 AVERAGE RISK 7.1 - 11.0 MODERATE RISK >11.0 HIGH RISK Performed By: #### D ATLIPI ####[facility] [id number] [id number]. Raul Pereira Cholesterol [Mass/Vol] 178 mg/dL Normal <=200 [facility] Comment on above: Performed By: #### D ATLIPI ####[facility] [id number] [place], [place] [address]Ll. Raul Pereira Cholesterol in HDL [Mass/Vol] 73 mg/dL Critically high 40-60 [facility] Comment on above: Performed By: #### D ATLIPI ####[facility] [id number] [id number]. Raul Pereira Cholesterol in LDL [Mass/Vol] 72.0 mg/dL Normal [facility] Comment on above: Performed By: #### D ATLIPI ####[facility] [id number] [id number]. Aranzapetr Randall Cholesterol.total/C holesterol in HDL [Mass ratio] 2.4 {ratio} Normal [facility] Comment on above: Performed By: #### D ATLIPI ####[facility] [id number] [id number]. Raul Randall HDL NORMAL > or = 60 mg/dl - LO W CARDIOVASCULAR RISK <40 mg/dl - HIGH CARDIOVASCULAR RISK Normal [facility] Comment on above: Performed By: #### D ATLIPI ####[facility] [id number] [id number]. Raul Pereira LDL CALC NORMAL SEE BELOW Normal [facility] Comment on above: Result Comment: <100 mg/dl OPTIMAL 100 - 129 mg/dl NEAR OR ABOVE OPTIMAL 130 - 159 mg/dl BORDERLINE HIGH 160 - 189 mg/dl HIGH >190 mg/dl VERY HIGH Performed By: #### D ATLIPI ####[facility] [id number] [id number]. Aranzapetr Randall Triglyceride [Mass/Vol] 165 mg/dL Critically high <=150 [facility] Comment on above: Performed By: #### D ATLIPI ####[facility] [id number] [address]DrLeann Pereira VLDL CALC 33.0 mg/dL Normal [facility] Comment on above: Performed By: #### D ATLIPI ####[facility] [id number] [address]Dr. Raul Pereira DRUG SCREEN RAPID (URINE)on 01-31-2023 AMP Positive Abnormal NEGATIVE [facility] Comment on above: Performed By: #### C BC #### [facility] [address] [address] [address] Raul Pereira BAR Negative Normal NEGATIVE [facility] Comment on above: Performed By: #### C BC #### [facility] [address] [address] [address] Raul Pereira BUP Positive Abnormal NEGATIVE [facility] Comment on above: Performed By: #### C BC #### [facility] [address] [address] [address] Raul Pereira BZO Negative Normal NEGATIVE [facility] Comment on above: Performed By: #### C BC #### [facility] [address] [address] [address] Raul Pereira RADHA Negative Normal NEGATIVE [facility] Comment on above: Performed By: #### C BC #### [facility] [address] [address] [address] Raul Pereira CUT-OFFS SEE BELOW Normal [facility] Comment on above: Result Comment: AMP (Amphetamine): 500ng/mL, BAR (Barbituates): 200 ng/mL, BZO (Benzodiazepines): 150 ng/mL, BUP (Buprenorphine): 10 ng/mL, RADHA (Cocaine): 150 ng/mL, mAMP (Methamphetamine): 500 ng/mL, MTD (Methadone): 200 ng/mL, OPI (Opiates): 100 ng/mL, OXY (Oxycodone): 100 ng/mL, PCP (Phencyclidine): 25 ng/mL, PPX (Propoxyphene): 300 ng/mL, THC (Cannabinoids): 50 ng/mL, TCA (Trycyclic Antidepressants): 300 ng/mL Performed By: #### C BC #### [facility] [address] [place] [address] Dr. Raul Pereira DRUG CUT HEADER DRUG CLASS TEST SYST EM CUT-OFF CONCENTRATIONS ARE FOLLOWS: Normal [facility] Comment on above: Performed By: #### C BC #### [facility] [address] [place] [address] Dr. Raul Pereira mAMP Negative Normal NEGATIVE [facility] Comment on above: Performed By: #### C BC #### [facility] [address] [place] [address] Dr. Raul Pereira MTD Negative Normal NEGATIVE [facility] Comment on above: Performed By: #### C BC #### [facility] [address] [place] [address] Dr. Raul Pereira OPI Negative Normal NEGATIVE [facility] Comment on above: Performed By: #### C BC #### [facility] [address] [place] [address] Dr. Raul Pereira OXY Negative Normal NEGATIVE [facility] Comment on above: Performed By: #### C BC #### [facility] [address] [place] [address] Dr. Raul Pereira PCP Negative Normal NEGATIVE [facility] Comment on above: Performed By: #### C BC #### [facility] [address] [place] [address] Dr. Raul Pereira PPX Negative Normal NEGATIVE [facility] Comment on above: Performed By: #### C BC #### [facility] [address] [place] [address] Dr. Raul Pereira TCA Positive Abnormal NEGATIVE [facility] Comment on above: Performed By: #### C BC #### [facility] [address] [place] [address] Dr. Raul Pereira THC Negative Normal NEGATIVE [facility] Comment on above: Performed By: #### C BC #### [facility] [address] [place] [address] Dr. Raul Pereira FREE THYROXINE INDEX T7on FTI 2.89 Normal 1.30-4.50 [facility] Comment on above: Performed By: #### C VDTBH #### [facility] [address] [address] [address] Raul Pereira T3U 39.0 % Normal 30.0-39.0 [facility] Comment on above: Performed By: #### C VDTBH #### [facility] [address] [address] [address] Raul Pereira T4 [Mass/Vol] 7.40 ug/dL Normal 4.80-13.90 [facility] Comment on above: Performed By: #### C VDTBH #### [facility] [address] [address] [address] Raul Pereira GLYCOHEMOGLOBIN A1Con 2022 ADA RECOMMENDATION SEE BELOW Normal [facility] Comment on above: Result Comment: ADA RECOMMENDED LIMIT 4.0 - 6.0 ADA THERAPEUTIC TARGET < 7.0 ACTION SUGGESTED > 7.0 Performed By: #### D ATA1C ####[facility] [id number] [address]Dr. Raul Pereira Glucose [Mass/Vol] 108 mg/dL Normal [facility] Comment on above: Performed By: #### D ATA1C ####[facility] [id number] [place] [address]Dr. Raul Pereira HbA1c (Bld) [Mass fraction] 5.4 % Normal 4.5-6.2 [facility] Comment on above: Performed By: #### D ATA1C ####[facility] [id number] [place] [address] [address]Dr. Raul Pereira IRONon 01-31-2023 Iron [Mass/Vol] 225.0 ug/dL Critically high 50.0-170.0 [facility] Comment on above: Performed By: #### C VDTBH #### [facility] [address] [address] [address] Raul Pereira PROF 14(COMP METB)on 023 Albumin [Mass/Vol] 3.8 g/dL Normal 3.4-5.0 [facility] Comment on above: Performed By: #### C VDTBH #### [facility] [address] [address] [address] Raul Pereira Albumin/Globulin [Mass ratio] 1.2 {ratio} Normal [facility] Comment on above: Performed By: #### C VDTBH #### [facility] [address] [address] [address] Raul Pereira ALP [Catalytic activity/Vol] 77 U/L Normal 46-116 [facility] Comment on above: Performed By: #### C VDTBH #### [facility] [address] [place] [address] Dr. Raul Pereira ALT [Catalytic activity/Vol] 19 U/L Normal 14-59 [facility] Comment on above: Performed By: #### C VDTBH #### [facility] [address] [place] [address] Dr. Raul Pereira Anion gap [Moles/Vol] 12.9 mmol/L Normal [facility] Comment on above: Performed By: #### C VDTBH #### [facility] [address] [place] [address] Dr. aRul Pereira AST [Catalytic activity/Vol] 17 U/L Normal 15-37 [facility] Comment on above: Performed By: #### C VDTBH #### [facility] [address] [place] [address] Dr. Raul Pereira Bilirubin [Mass/Vol] 0.3 mg/dL Normal 0.2-1.0 [facility] Comment on above: Performed By: #### C VDTBH #### [facility] [address] [place] [address] Dr. Raul Pereira Calcium [Mass/Vol] 8.9 mg/dL Normal 8.5-10.1 [facility] Comment on above: Performed By: #### C VDTBH #### [facility] [address] [place] [address] Dr. Raul Pereira Chloride [Moles/Vol] 101 mmol/L Normal 98-107 [facility] Comment on above: Performed By: #### C VDTBH #### [facility] [address] [address] [address] Raul Pereira CO2 [Moles/Vol] 28.5 mmol/L Normal 21.0-32.0 [facility] Comment on above: Performed By: #### C VDTBH #### [facility] [address] [address] [address] Raul Pereira Creatinine [Mass/Vol] 0.59 mg/dL Normal 0.55-1.02 [facility] Comment on above: Performed By: #### C VDTBH #### [facility] [address] [address] [address] Raul Pereira EGFR-AF EQUATORIAL GUINEAN >60 Normal >=60 [facility] Comment on above: Performed By: #### C VDTBH #### [facility] [address] [place] [address] Dr. Raul Pereira EGFR-NON AF EQUATORIAL GUINEAN >60 Normal >=60 [facility] Comment on above: Performed By: #### C VDTBH #### [facility] [address] [place] [address] Dr. Raul Pereira Globulin (S) [Mass/Vol] 3.1 g/dL Normal [facility] Comment on above: Performed By: #### C VDTBH #### [facility] [address] [place] [address] Dr. Raul Pereira Glucose [Mass/Vol] 84 mg/dL Normal 74-106 [facility] Comment on above: Performed By: #### C VDTBH #### [facility] [address] [address] [address] Raul Pereira Potassium [Moles/Vol] 4.4 mmol/L Normal 3.5-5.1 [facility] Comment on above: Performed By: #### C VDTBH #### [facility] [address] [place] [address] Dr. Raul Pereira Protein [Mass/Vol] 6.9 g/dL Normal 6.4-8.2 [facility] Comment on above: Performed By: #### C VDTBH #### [facility] [address] [place] [address] Dr. Raul Pereira Sodium [Moles/Vol] 138 mmol/L Normal 136-145 [facility] Comment on above: Performed By: #### C VDTBH #### [facility] [address] [place] [address] Dr. Raul Pereira Urea nitrogen [Mass/Vol] 11.0 mg/dL Normal 7.0-18.0 [facility] Comment on above: Performed By: #### C VDTBH #### [facility] [address] [place] [address] Dr. Raul Pereira Urea nitrogen/Creatinine [Mass ratio] 18.6 mg/mg Normal [facility] Comment on above: Performed By: #### C VDTBH #### [facility] [address] [place] [address] Dr. Raul Pereira TSHon 01-31-2023 TSH 2.354 uIU/mL Normal 0.358-3.740 [facility] Comment on above: Performed By: #### C VDTBH #### [facility] [address] [place] [address] Dr. Raul Pereira UA RANDOM W/MICROSCOPICon BACTERIA NONE SEEN Normal NONE SEEN [facility] Comment on above: Performed By: #### C BC #### [facility] [address] [place] [address] Dr. Raul Pereira Bilirubin Ql (U) Negative Normal NEGATIVE [facility] Comment on above: Performed By: #### C BC #### [facility] [address] [place] [address] Dr. Raul Pereira CAST NONE SEEN Normal NONE SEEN [facility] Comment on above: Performed By: #### C BC #### [facility] [address] [place] [address] Dr. Raul Pereira Clarity (U) CLEAR Normal CLEAR [facility] Comment on above: Performed By: #### C BC #### [facility] [address] [place] [address] Dr. Raul Pereira Color (U) YELLOW Normal YELLOW [facility] Comment on above: Performed By: #### C BC #### [facility] [address] [place] [address] Dr. Raul Pereira Crystals LM Nom (Urine sed) NONE SEEN Normal NONE SEEN [facility] Comment on above: Performed By: #### C BC #### [facility] [address] [place] [address] Dr. Raul Pereira Epithelial cells LM Ql (Urine sed) NONE SEEN Normal NONE SEEN /RARE [facility] Comment on above: Performed By: #### C BC #### [facility] [address] [place] [address] Dr. Raul Pereira Glucose Ql (U) Negative Normal NEGATIVE [facility] Comment on above: Performed By: #### C BC #### [facility] [address] [place] [address] Dr. Raul Pereira Hemoglobin Ql (U) Negative Normal NEGATIVE [facility] Comment on above: Performed By: #### C BC #### [facility] [address] [place] [address] Dr. Raul Pereira Ketones Ql (U) Negative Normal NEGATIVE [facility] Comment on above: Performed By: #### C BC #### [facility] [address] [place] [address] Dr. Raul Pereira LEUKOCYTES Negative Normal NEGATIVE [facility] Comment on above: Performed By: #### C BC #### [facility] [address] [place] [address] Dr. Raul Pereira MUCOUS NONE SEEN Normal NONE SEEN [facility] Comment on above: Performed By: #### C BC #### [facility] [address] [place] [address] Dr. Raul Pereira Nitrite Ql (U) Negative Normal NEGATIVE [facility] Comment on above: Performed By: #### C BC #### [facility] [address] [place] [address] Dr. Raul Pereira pH (U) 5.5 [pH] Normal 5-9 [facility] Comment on above: Performed By: #### C BC #### [facility] [address] [place] [address] Dr. Raul Pereira RBC NONE SEEN Abnormal 0-2 [facility] Comment on above: Performed By: #### C BC #### [facility] [address] [place] [address] Dr. Raul Pereira SPEC GRAVITY 1.030 Abnormal 1.005-<=1.02 5 [facility] Comment on above: Performed By: #### C BC #### [facility] [address] [place] [address] Dr. Raul Pereira UA PROTEIN Negative Normal NEGATIVE/ TRACE [facility] Comment on above: Performed By: #### C BC #### [facility] [address] [place] [address] Dr. Raul Pereira Urobilinogen Qn (U) 0.2 {Farrukh'U}/dL Normal 0.2 - 1. 0 [facility] Comment on above: Performed By: #### C BC #### [facility] [address] [place] [address] Dr. Raul Pereira WBC NONE SEEN Normal NONE SEEN [facility] Comment on above: Performed By: #### C BC #### [facility] [address] [place] [address] Dr. Raul Pereira VITAMIN D 25 OHon 01-31-2023 VIT D 25-OH 40.8 ng/mL Normal [facility] Comment on above: Performed By: #### C VDTBH #### [facility] [address] [place] [address] Dr. Raul Pereira VIT D RANGES SEE BELOW Normal [facility] Comment on above: Result Comment: <20 ng/mL Vit D deficient 20 - <30 ng/mL Vit D insufficient 30 - 100 ng/mL Vit D sufficient >100 ng/mL Potential Toxicity Performed By: #### C VDTBH #### [facility] [address] [place] [address] Dr. Raul Pereira VC VENOUS REFLUX ALEXUS LMTon 0 01-30-2023 VC VENOUS REFLUX ALEXUS LMT Patient: RHETT MEJIA Exam Date: 01/30/2023 : 1960 Gender:F Ordering : DR NAPOLEON RAHMAN . Admission #: [id number] Family : Order #: [id number] CLICK HERE TO VIEW EXAM RADIOLOGY REPORT [...] thrombus. Compressibility: Normal. Flow: Deep venous reflux. Pv Installer Tech:Mid/medial lower leg 4.3 mm with 0.8s reflux. [...] great saphenous vein along with dilated, incompetent architectural engineer veins and numerous branch saphenous varicosities. 2. 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 Proximal closer with endovenous laser ablation may be beneficial followed by treatment with microfoam chemical ablation. Incompetent lower leg architectural engineer vein which may contribute to patient's reflux; laser ablation is recommended. Dilated, incompetent branch saphenous varicosities which would benefit from microfoam chemical ablation. 3. Consultation for endovenous ablation is recommended. Dictated by: Jessica Lipscomb M.D. on 01/31/2023 at 09:46 Approved by: Jessica Lipscomb M.D. on 01/31/2023 at 09:51 Normal [facility] CBC AUTO DIFFon 01-13-2023 BASO # 0.0 103/ul Normal 0.0-0.1 [facility] Comment on above: Performed By: #### C BC #### [facility] [address] [address] [address] Raul Pereira Basophils/100 WBC (Bld) 0.5 % Normal 0.2-2.0 [facility] Comment on above: Performed By: #### C BC #### [facility] [address] [place], [place] [address] Dr. Raul Pereira EO # 0.1 103/ul Normal 0.0-0.7 [facility] Comment on above: Performed By: #### C BC #### [facility] [address] [place] [address] Dr. Raul Pereira Eosinophils/100 WBC (Bld) 1.7 % Normal 0.9-7.0 [facility] Comment on above: Performed By: #### C BC #### [facility] [address] [place] [address] Dr. Raul Pereira Erythrocyte distribution width (RBC) [Ratio] 18.4 % Critically high 11.0-15.0 [facility] Comment on above: Performed By: #### C BC #### [facility] [address] [place] [address] Dr. Raul Pereira Hematocrit (Bld) [Volume fraction] 33.1 % Critically low 36.0-48.0 [facility] Comment on above: Performed By: #### C BC #### [facility] [address] [place] [address] Dr. Raul Pereira Hemoglobin (Bld) [Mass/Vol] 10.4 g/dL Critically low 12.0-16.0 [facility] Comment on above: Performed By: #### C BC #### [facility] [address] [place] [address] Dr. Raul Pereira IG # 0.03 10e3/ul Normal 0.00-0.03 [facility] Comment on above: Performed By: #### C BC #### [facility] [address] [place] [address] Dr. Raul Pereira IG % 0.4 % Normal 0.0-0.5 [facility] Comment on above: Performed By: #### C BC #### [facility] [address] [place] [address] Dr. Raul Pereira LYMPH # 1.9 103/ul Normal 1.2-3.8 [facility] Comment on above: Performed By: #### C BC #### [facility] [address] [place] [address] Dr. Raul Pereiar Lymphocytes/100 WBC (Bld) 25.2 % Normal 20.5-60.0 [facility] Comment on above: Performed By: #### C BC #### [facility] [address] [place] [address] Dr. Raul Pereira MANUAL DIFF REQ NO Normal [facility] Comment on above: Performed By: #### C BC #### [facility] [address] [place] [address] Dr. Raul Pereira MCH (RBC) [Entitic mass] 24.1 pg Critically low 26.7-34.0 [facility] Comment on above: Performed By: #### C BC #### [facility] [address] [place] [address] Dr. Raul Pereira MCHC (RBC) [Mass/Vol] 31.4 g/dL Normal 29.9-35.2 [facility] Comment on above: Performed By: #### C BC #### [facility] [address] [place] [address] Dr. Raul Pereira MCV (RBC) [Entitic vol] 76.6 fL Critically low 81.0-99.0 [facility] Comment on above: Performed By: #### C BC #### [facility] [address] [place] [address] Dr. Raul Pereira MONO # 0.8 103/ul Normal 0.3-0.8 [facility] Comment on above: Performed By: #### C BC #### [facility] [address] [place] [address] Dr. Raul Pereira Monocytes/100 WBC (Bld) 10.7 % Normal 1.7-12.0 [facility] Comment on above: Performed By: #### C BC #### [facility] [address] [place] [address] Dr. Raul Pereira NEUT # 4.7 103/ul Normal 1.4-6.5 [facility] Comment on above: Performed By: #### C BC #### [facility] [address] [place] [address] Dr. Raul Pereira Neutrophils/100 WBC (Bld) 61.5 % Normal 43.0-75.0 [facility] Comment on above: Performed By: #### C BC #### [facility] [address] [address] [address] Raul Pereira Platelet mean volume (Bld) [Entitic vol] 8.6 fL Critically low 9.5-13.5 [facility] Comment on above: Performed By: #### C BC #### [facility] [address] [address] [address] Raul Pereira PLT 461 103/ul Critically high 150-450 [facility] Comment on above: Performed By: #### C BC #### [facility] [address] [address] [address] Raul Pereira RBC 4.32 106/ul Normal 4.20-5.40 [facility] Comment on above: Performed By: #### C BC #### [facility] [address] [address] [address] Raul Pereira WBC 7.6 103/ul Normal 4.0-11.0 [facility] Comment on above: Performed By: #### C BC #### [facility] [address] [address] [address] Raul Pereira FREE THYROXINE INDEX T7on FTI 2.10 Normal 1.30-4.50 [facility] Comment on above: Performed By: #### T 7, CMP, TSH, LIPID ####[facility] [address] [place], [place] [address]PiDr. Raul Pereira T3U 35.0 % Normal 30.0-39.0 [facility] Comment on above: Performed By: #### T 7, CMP, TSH, LIPID ####[facility] [address] [place], [place] [address]LeDr. Raul Preeira T4 [Mass/Vol] 6.00 ug/dL Normal 4.80-13.90 [facility] Comment on above: Performed By: #### T 7, CMP, TSH, LIPID ####[facility] [address] [place] [id number] Pereira GLYCOHEMOGLOBIN A1Con 2022 ADA RECOMMENDATION SEE BELOW Normal [facility] Comment on above: Result Comment: ADA RECOMMENDED LIMIT 4.0 - 6.0 ADA THERAPEUTIC TARGET < 7.0 ACTION SUGGESTED > 7.0 Performed By: #### C VDTBH #### [facility] [address] [address] [address] Raul Pereira Glucose [Mass/Vol] 108 mg/dL Normal [facility] Comment on above: Performed By: #### C VDTBH #### [facility] [address] [address] [address] Raul Pereira HbA1c (Bld) [Mass fraction] 5.4 % Normal 4.5-6.2 [facility] Comment on above: Performed By: #### C VDTBH #### [facility] [address] [address] [address] Raul Pereira IRON AND TIBCon 01-13-2023 % SATURATION 3.5 % Normal [facility] Comment on above: Performed By: #### F ETIBC, B12FOL, VITAD ####[facility] [address] [place] [address]DrLeann Pereira Iron [Mass/Vol] 18.0 ug/dL Critically low 50.0-170.0 [facility] Comment on above: Performed By: #### F ETIBC, B12FOL, VITAD ####[facility] [address] [place] [address]DrLeann Pereira TIBC DIRECT 513.0 ug/dL Critically high 250.0-450.0 [facility] Comment on above: Performed By: #### F ETIBC, B12FOL, VITAD ####[facility] [address] [place] [address]Dr. Raul Pereira LIPID PROFILEon 01-13-2023 CHOL-HDL RATIO NORM SEE BELOW Normal [facility] Comment on above: Result Comment: 3.3 - 4.4 LOW RISK 4.4 - 7.1 AVERAGE RISK 7.1 - 11.0 MODERATE RISK >11.0 HIGH RISK Performed By: #### T 7, CMP, TSH, LIPID ####[facility] [address] [place] [id number]. Raul Pereira Cholesterol [Mass/Vol] 190 mg/dL Normal <=200 [facility] Comment on above: Performed By: #### T 7, CMP, TSH, LIPID ####[facility] [address] [place] [id number]. Raul Pereira Cholesterol in HDL [Mass/Vol] 71 mg/dL Critically high 40-60 [facility] Comment on above: Performed By: #### T 7, CMP, TSH, LIPID ####[facility] [address] [place] [id number]. Raul Pereira Cholesterol in LDL [Mass/Vol] 104.6 mg/dL Normal [facility] Comment on above: Performed By: #### T 7, CMP, TSH, LIPID ####[facility] [address] [place] [address]Dr. Raul Pereira Cholesterol.total/C holesterol in HDL [Mass ratio] 2.7 {ratio} Normal [facility] Comment on above: Performed By: #### T 7, CMP, TSH, LIPID ####[facility] [address] [place] [id number]. Raul Pereira HDL NORMAL > or = 60 mg/dl - LO W CARDIOVASCULAR RISK <40 mg/dl - HIGH CARDIOVASCULAR RISK Normal [facility] Comment on above: Performed By: #### T 7, CMP, TSH, LIPID ####[facility] [address] [place] [id number]. Raul Pereira LDL CALC NORMAL SEE BELOW Normal [facility] Comment on above: Result Comment: <100 mg/dl OPTIMAL 100 - 129 mg/dl NEAR OR ABOVE OPTIMAL 130 - 159 mg/dl BORDERLINE HIGH 160 - 189 mg/dl HIGH >190 mg/dl VERY HIGH Performed By: #### T 7, CMP, TSH, LIPID ####[facility] [address] [place] [id number]. Raul Pereira Triglyceride [Mass/Vol] 72 mg/dL Normal <=150 [facility] Comment on above: Performed By: #### T 7, CMP, TSH, LIPID ####[facility] [address] [place] [address]Dr. Raul Pereira VLDL CALC 14.4 mg/dL Normal [facility] Comment on above: Performed By: #### T 7, CMP, TSH, LIPID ####[facility] [address] [place] [address]Dr. Raul Pereira PROF 14(COMP METB)on 023 Albumin [Mass/Vol] 3.5 g/dL Normal 3.4-5.0 [facility] Comment on above: Performed By: #### T 7, CMP, TSH, LIPID ####[facility] [address] [place] [address]Dr. Raul Pereira Albumin/Globulin [Mass ratio] 1.1 {ratio} Normal [facility] Comment on above: Performed By: #### T 7, CMP, TSH, LIPID ####[facility] [address] [place] [address]Dr. Raul Pereira ALP [Catalytic activity/Vol] 92 U/L Normal 46-116 [facility] Comment on above: Performed By: #### T 7, CMP, TSH, LIPID ####[facility] [address] [place] [address]Dr. Raul Pereira ALT [Catalytic activity/Vol] 17 U/L Normal 14-59 [facility] Comment on above: Performed By: #### T 7, CMP, TSH, LIPID ####[facility] [address] [place] [address]Dr. Raul Pereira Anion gap [Moles/Vol] 10.0 mmol/L Normal [facility] Comment on above: Performed By: #### T 7, CMP, TSH, LIPID ####[facility] [address] [place] [address]Dr. Raul Pereira AST [Catalytic activity/Vol] 17 U/L Normal 15-37 [facility] Comment on above: Performed By: #### T 7, CMP, TSH, LIPID ####[facility] [address] [place] [address]Dr. Raul Pereira Bilirubin [Mass/Vol] 0.2 mg/dL Normal 0.2-1.0 [facility] Comment on above: Performed By: #### T 7, CMP, TSH, LIPID ####[facility] [address] [place] [address]Dr. Raul Pereira Calcium [Mass/Vol] 8.8 mg/dL Normal 8.5-10.1 [facility] Comment on above: Performed By: #### T 7, CMP, TSH, LIPID ####[facility] [address] [place] [address]Dr. Raul Pereira Chloride [Moles/Vol] 101 mmol/L Normal 98-107 [facility] Comment on above: Performed By: #### T 7, CMP, TSH, LIPID ####[facility] [address] [place], [place] [address]Dr. Raul Pereira CO2 [Moles/Vol] 29.4 mmol/L Normal 21.0-32.0 [facility] Comment on above: Performed By: #### T 7, CMP, TSH, LIPID ####[facility] [address] [place], [place] [address]Dr. Raul Pereira Creatinine [Mass/Vol] 0.50 mg/dL Critically low 0.55-1.02 [facility] Comment on above: Performed By: #### T 7, CMP, TSH, LIPID ####[facility] [address] [place], [place] [address]Dr. Raul Pereira EGFR-AF EQUATORIAL GUINEAN >60 Normal >=60 [facility] Comment on above: Performed By: #### T 7, CMP, TSH, LIPID ####[facility] [address] [place], [place] [address]Dr. Raul Pereira EGFR-NON AF EQUATORIAL GUINEAN >60 Normal >=60 [facility] Comment on above: Performed By: #### T 7, CMP, TSH, LIPID ####[facility] [address] [place], [place] [address]Dr. Raul Pereira Globulin (S) [Mass/Vol] 3.2 g/dL Normal [facility] Comment on above: Performed By: #### T 7, CMP, TSH, LIPID ####[facility] [address] [place] [address]Dr. Raul Pereira Glucose [Mass/Vol] 88 mg/dL Normal 74-106 [facility] Comment on above: Performed By: #### T 7, CMP, TSH, LIPID ####[facility] [address] [place] [address]Dr. Raul Pereira Potassium [Moles/Vol] 4.4 mmol/L Normal 3.5-5.1 [facility] Comment on above: Performed By: #### T 7, CMP, TSH, LIPID ####[facility] [address] [place] [address]Dr. Raul Pereira Protein [Mass/Vol] 6.7 g/dL Normal 6.4-8.2 [facility] Comment on above: Performed By: #### T 7, CMP, TSH, LIPID ####[facility] [address] [place] [address]Dr. Raul Pereira Sodium [Moles/Vol] 136 mmol/L Normal 136-145 [facility] Comment on above: Performed By: #### T 7, CMP, TSH, LIPID ####[facility] [address] [place] [address]Dr. Raul Pereira Urea nitrogen [Mass/Vol] 12.0 mg/dL Normal 7.0-18.0 [facility] Comment on above: Performed By: #### T 7, CMP, TSH, LIPID ####[facility] [address] [place] [address]Dr. Raul Pereira Urea nitrogen/Creatinine [Mass ratio] 24.0 mg/mg Normal [facility] Comment on above: Performed By: #### T 7, CMP, TSH, LIPID ####[facility] [address] [place] [address]Dr. Raul Pereira TSHon 01-13-2023 TSH 1.623 uIU/mL Normal 0.358-3.740 [facility] Comment on above: Performed By: #### T 7, CMP, TSH, LIPID ####[facility] [address] [place] [address]Dr. Raul Pereira VIT B12 AND FOLATEon Cobalamin (Vitamin B12) [Mass/Vol] 872.0 pg/mL Normal 193.0-986.0 [facility] Comment on above: Performed By: #### F ETIBC, B12FOL, VITAD ####[facility] [address] [place] [address]Dr. Raul Pereira FOLATE 21.20 ng/mL Normal 8.60-58.90 [facility] Comment on above: Performed By: #### F ETIBC, B12FOL, VITAD ####[facility] [address] [place] [address]Dr. Ralu Pereira VITAMIN D 25 OHon 01-13-2023 VIT D 25-OH 40.6 ng/mL Normal [facility] Comment on above: Performed By: #### F ETIBC, B12FOL, VITAD ####[facility] [address] [place] [address]Dr. Raul Pereira VIT D RANGES SEE BELOW Normal [facility] Comment on above: Result Comment: <20 ng/mL Vit D deficient 20 - <30 ng/mL Vit D insufficient 30 - 100 ng/mL Vit D sufficient >100 ng/mL Potential Toxicity Performed By: #### F ETIBC, B12FOL, VITAD ####[facility] [address] [place] [address]DrLeann Pereira CBC AUTO DIFFon 01-10-2023 BASO # 0.1 103/ul Normal 0.0-0.1 [facility] Comment on above: Performed By: #### C VDTBH #### [facility] Laboratory [address] [address] [address] Raul Pereira Basophils/100 WBC (Bld) 0.6 % Normal 0.2-2.0 [facility] Comment on above: Performed By: #### C VDTBH #### [facility] [address] [address] [address] Raul Pereira EO # 0.1 103/ul Normal 0.0-0.7 [facility] Comment on above: Performed By: #### C VDTBH #### [facility] [address] [place] [address] Dr. Raul Pereira Eosinophils/100 WBC (Bld) 1.3 % Normal 0.9-7.0 [facility] Comment on above: Performed By: #### C VDTBH #### [facility] [address] [place] [address] Dr. Raul Pereira Erythrocyte distribution width (RBC) [Ratio] 18.4 % Critically high 11.0-15.0 [facility] Comment on above: Performed By: #### C VDTBH #### [facility] [address] [place] [address] Dr. Raul Pereira Hematocrit (Bld) [Volume fraction] 37.8 % Normal 36.0-48.0 [facility] Comment on above: Performed By: #### C VDTBH #### [facility] [address] [place] [address] Dr. Raul Pereira Hemoglobin (Bld) [Mass/Vol] 11.6 g/dL Critically low 12.0-16.0 [facility] Comment on above: Performed By: #### C VDTBH #### [facility] [address] [place] [address] Dr. Raul Pereira IG # 0.02 10e3/ul Normal 0.00-0.03 [facility] Comment on above: Performed By: #### C VDTBH #### [facility] [address] [place] [address] Dr. Raul Pereira IG % 0.3 % Normal 0.0-0.5 [facility] Comment on above: Performed By: #### C VDTBH #### [facility] [address] [place] [address] Dr. Raul Pereira LYMPH # 1.7 103/ul Normal 1.2-3.8 [facility] Comment on above: Performed By: #### C VDTBH #### [facility] [address] [place] [address] Dr. Raul Pereira Lymphocytes/100 WBC (Bld) 21.0 % Normal 20.5-60.0 [facility] Comment on above: Performed By: #### C VDTBH #### [facility] [address] [place] [address] Dr. Raul Pereira MANUAL DIFF REQ NO Normal [facility] Comment on above: Performed By: #### C VDTBH #### [facility] [address] [place] [address] Dr. Raul Pereira MCH (RBC) [Entitic mass] 24.1 pg Critically low 26.7-34.0 [facility] Comment on above: Performed By: #### C VDTBH #### [facility] [address] [place] [address] Dr. Raul Pereira MCHC (RBC) [Mass/Vol] 30.7 g/dL Normal 29.9-35.2 [facility] Comment on above: Performed By: #### C VDTBH #### [facility] [address] [place] [address] Dr. Raul Pereira MCV (RBC) [Entitic vol] 78.6 fL Critically low 81.0-99.0 [facility] Comment on above: Performed By: #### C VDTBH #### [facility] [address] [place] [address] Dr. Raul Pereira MONO # 0.6 103/ul Normal 0.3-0.8 [facility] Comment on above: Performed By: #### C VDTBH #### [facility] [address] [place] [address] Dr. Raul Pereira Monocytes/100 WBC (Bld) 7.5 % Normal 1.7-12.0 [facility] Comment on above: Performed By: #### C VDTBH #### [facility] [address] [place] [address] Dr. Raul Pereira NEUT # 5.4 103/ul Normal 1.4-6.5 [facility] Comment on above: Performed By: #### C VDTBH #### [facility] [address] [place] [address] Dr. Raul Pereira Neutrophils/100 WBC (Bld) 69.3 % Normal 43.0-75.0 [facility] Comment on above: Performed By: #### C VDTBH #### [facility] [address] [address] [address] Raul Pereira Platelet mean volume (Bld) [Entitic vol] 9.0 fL Critically low 9.5-13.5 [facility] Comment on above: Performed By: #### C VDTBH #### [facility] [address] [address] [address] Raul Pereira PLT 516 103/ul Critically high 150-450 [facility] Comment on above: Performed By: #### C VDTBH #### [facility] [address] [address] [address] Raul Pereira RBC 4.81 106/ul Normal 4.20-5.40 [facility] Comment on above: Performed By: #### C VDTBH #### [facility] [address] [address] [address] Raul Pereira WBC 7.8 103/ul Normal 4.0-11.0 [facility] Comment on above: Performed By: #### C VDTBH #### [facility] [address] [address] [address] Raul Pereira CULTURE BLOODon 01-10-2023 Microscopic examination of blood, culture Culture Observations: NO GROWTH AT 5 DAYS. Normal [facility] Comment on above: Performed By: #### B [id number] #### [facility] [address] [address] [address] Raul Pereira Microscopic examination of blood, culture Culture Observations: NO GROWTH AT 5 DAYS. Normal [facility] Comment on above: Performed By: #### B LDCX1 ####[facility] [address] [place] [address]Dr. Raul Pereira PROF 14(COMP METB)on 023 Albumin [Mass/Vol] 3.7 g/dL Normal 3.4-5.0 [facility] Comment on above: Performed By: #### C BC #### [facility] [address] [place] [address] Dr. Raul Pereira Albumin/Globulin [Mass ratio] 0.9 {ratio} Normal [facility] Comment on above: Performed By: #### C BC #### [facility] [address] [place] [address] Dr. Raul Pereira ALP [Catalytic activity/Vol] 105 U/L Normal 46-116 [facility] Comment on above: Performed By: #### C BC #### [facility] [address] [place] [address] Dr. Raul Pereira ALT [Catalytic activity/Vol] 18 U/L Normal 14-59 [facility] Comment on above: Performed By: #### C BC #### [facility] [address] [place] [address] Dr. Raul Pereira Anion gap [Moles/Vol] 10.8 mmol/L Normal [facility] Comment on above: Performed By: #### C BC #### [facility] [address] [place] [address] Dr. Raul Pereira AST [Catalytic activity/Vol] 21 U/L Normal 15-37 [facility] Comment on above: Performed By: #### C BC #### [facility] [address] [place] [address] Dr. Raul Pereira Bilirubin [Mass/Vol] 0.3 mg/dL Normal 0.2-1.0 [facility] Comment on above: Performed By: #### C BC #### [facility] [address] [place] [address] Dr. Raul Pereira Calcium [Mass/Vol] 9.1 mg/dL Normal 8.5-10.1 [facility] Comment on above: Performed By: #### C BC #### [facility] [address] [place] [address] Dr. Raul Pereira Chloride [Moles/Vol] 100 mmol/L Normal 98-107 [facility] Comment on above: Performed By: #### C BC #### [facility] [address] [place] [address] Dr. Raul Pereira CO2 [Moles/Vol] 30.8 mmol/L Normal 21.0-32.0 [facility] Comment on above: Performed By: #### C BC #### [facility] [address] [place] [address] Dr. Raul Pereira Creatinine [Mass/Vol] 0.58 mg/dL Normal 0.55-1.02 [facility] Comment on above: Performed By: #### C BC #### [facility] [address] [address] [address] Raul Pereira EGFR-AF EQUATORIAL GUINEAN >60 Normal >=60 [facility] Comment on above: Performed By: #### C BC #### [facility] [address] [place] [address] Dr. Raul Pereira EGFR-NON AF EQUATORIAL GUINEAN >60 Normal >=60 [facility] Comment on above: Performed By: #### C BC #### [facility] [address] [place] [address] Dr. Raul Pereira Globulin (S) [Mass/Vol] 4.1 g/dL Normal [facility] Comment on above: Performed By: #### C BC #### [facility] [address] [place] [address] Dr. Raul Pereira Glucose [Mass/Vol] 86 mg/dL Normal 74-106 [facility] Comment on above: Performed By: #### C BC #### [facility] [address] [place] [address] Dr. Raul Pereira Potassium [Moles/Vol] 4.6 mmol/L Normal 3.5-5.1 [facility] Comment on above: Performed By: #### C BC #### [facility] [address] [place] [address] Dr. Raul Pereira Protein [Mass/Vol] 7.8 g/dL Normal 6.4-8.2 [facility] Comment on above: Performed By: #### C BC #### [facility] [address] [place] [address] Dr. Raul Pereira Sodium [Moles/Vol] 137 mmol/L Normal 136-145 [facility] Comment on above: Performed By: #### C BC #### [facility] [address] [place], [place] [address] Dr. Raul Pereira Urea nitrogen [Mass/Vol] 9.0 mg/dL Normal 7.0-18.0 [facility] Comment on above: Performed By: #### C BC #### [facility] [address] [place], [place] [address] Dr. Raul Pereira Urea nitrogen/Creatinine [Mass ratio] 15.5 mg/mg Normal [facility] Comment on above: Performed By: #### C BC #### [facility] [address] [place], [place] [address] Dr. Raul Pereira PREMA DOP LEG RTon 01-10-20 PREMA DOP LEG RT EXAMINATION: PREMA DOP [...] JESSICA LIPSCOMB Date: 2023-01-10 10:43 Normal [facility] Covid-19 PCR (CVDTB)on 11-18 SARS-CoV-2 (COVID-19) RNA IMELDA+probe Ql (Unsp spec) Not detected Normal NOT DETECTED [facility] Comment on above: Result Comment: This test is not yet approved or cleared by the [place] FDA. When there are no FDA-approved or cleared tests available, and other criteria are met, FDA can make tests available under an emergency access mechanism called an Emergency Use Authorization (EUA). The EUA for this test is supported by the [place] of Health and Human Service's (HHS's) declaration [...] SARS-CoV-2. Performed By: #### C VDTBH #### [facility] [address] [place] [address] Dr. Raul Pereira CALCIUMon 12-03-2022 Calcium [Mass/Vol] 9.7 mg/dL Normal 8.5-10.1 [facility] Comment on above: Performed By: #### C VDTBH #### [facility] [address] [place] [address] Dr. Raul Pereira CREATININEon 12-03-2022 Creatinine [Mass/Vol] 0.53 mg/dL Critically low 0.55-1.02 [facility] Comment on above: Performed By: #### C BC #### [facility] [address] [place] [address] Dr. Raul Pereira EGFR-AF EQUATORIAL GUINEAN >60 Normal >=60 [facility] Comment on above: Performed By: #### C BC #### [facility] [address] [place] [address] Dr. Raul Pereira EGFR-NON AF EQUATORIAL GUINEAN >60 Normal >=60 [facility] Comment on above: Performed By: #### C BC #### [facility] [address] [place] [address] Dr. Raul Pereira Office Visiton 08-27-2022 Follow-up visit [id number] HilaryLex zeng L 1960 F Date Provider Department Center 08/27/2022 Nella-MICAELA GUPTA [facility] SURG Second Fl No family history on file Level of Service:72555 [place] POSTOP FOLLOW UP VISIT RELATED TO ORIGINAL PX Reason for Visit and Comments: Post-op [483] - Rhett is here today for a post op visit, s/p 08/16/22 JOSE WILSONE Angel [facility] HISTOLOGY - TISSUE EXAMon LAB AP CASE REPORT Normal [facility] Comment on above: Order Comment: Pre-o p diagnosis:Calculus of gallbladder without cholecystitis without obstruction [K80.20] Result Comment: Surg ical Pathology Case: [id number] Authorizing Provider: Micaela Gupta MD Collected: 08/16/2022 0842 Ordering Location: [facility] Main Operating Room Received: 08/16/2022 1001 Pathologist: Maricruz Warren MD Specimen: Gallbladder, GALLBLADDER Performed By: #### L [id number] ####[facility] (BEAKER)[address] [facility] [place] [place] [address] LAB AP CLINICAL INFORMATION Normal [facility] Comment on above: Order Comment: Pre-o p diagnosis:Calculus of gallbladder without cholecystitis without obstruction [K80.20] Result Comment: Pre- op diagnosis: Calculus of gallbladder without cholecystitis without obstruction [K80.20] Performed By: #### L [id number] ####[facility] [facility] [place] [place] [address] LAB AP GROSS DESCRIPTION A. Gallbladder. Normal [facility] Comment on above: Order Comment: Pre-o [...] 0.1 to 0.2 cm in maximum thickness. Customs Brokerage Agent sections submitted as follows: Cassette 1: Cystic duct resection margin and neck Cassette 2: Body and fundus Ankit Koroma, Pathologists' Resource Teacher Performed By: #### L [id number] ####[facility] (BEAKER)[address] [facility] [place] [place] [address] LAB AP MICROSCOPIC DESCRIPTION Microscopic examination performed Normal [facility] Comment on above: Order Comment: Pre-o p diagnosis:Calculus of gallbladder without cholecystitis without obstruction [K80.20] Performed By: #### L [id number] ####[facility] (BEAKER)[address] [place] [address] LAB AP REPORT FINAL DIAGNOSIS NARRATIVE Normal [facility] Comment on above: Order Comment: Pre-o p diagnosis:Calculus of gallbladder without cholecystitis without obstruction [K80.20] Result Comment: Gall bladder, cholecystectomy: - Cholelithiasis and cholesterolosis. Performed By: #### L [id number] ####[facility] (BEAKER)[address] [facility] [place] [address] HPon 08-16-2022 HP ----- ----- Attestation signed by Micaela Gupta MD at 08/16/2022 7:34 AM Attending Physician Statement I have discussed the case, including pertinent history and exam findings with Dr. Del Angel, surgical product sales consultant and have personally seen the patient. I agree with the assessment, plan and orders as documented. [phone] pager [phone] phone ----- [facility] General Surgery HISTORY & PHYSICAL Chief [...] History: Diagnosis Date Anxiety Arthritis Chronic bronchitis ([facility]/HCC) Depression DVT (deep venous thrombosis) ([facility]) Gall bladder disease GERD (gastroesophageal [...] Results Component Value (more content not included)... [facility] NURSNOTEon 08-16-2022 NURSNOTE Stable. Pain minimal . DC criteria met. IV dc'd and patient getting dressed. 1155 Stable for discharge. [facility] NURSNOTE DC instructions revi ewed with patient and Granddaughter, allowed time for questions, copy given. Normal [facility] NURSNOTE Report rec'd and car e assumed. No assessment changes. Pain minimal. Normal [facility] NURSNOTE 0920 Recovery called. Normal [facility] OPNOTEon 08-16-2022 OPNOTE CHOLECYSTECTOMY, LAPAROSCOPIC Operative Note Date: 08/16/2022 Location: [facility] OR Name: Rhett Mejia, : 1960, Diagnosis Pre-op Diagnosis * Calculus of gallbladder without cholecystitis without obstruction [K80.20] * History of gastric bypass [Z98.84] Post-op Diagnosis * Calculus of gallbladder without cholecystitis without obstruction [K80.20] * History of gastric bypass [Z98.84] Procedures CHOLECYSTECTOMY, LAPAROSCOPIC 02115 - [place] LAPS SURG CHOLECYSTECTOMY W/CHOLANGIOGRAPHY Surgeons * Micaela Gupta - Primary * Robyn Del Angel Procedure Summary Anesthesia: General ASA: III Estimated Blood Loss: 10 mL Total IV Fluids: 1000 mL Drains: * None in log * Specimens ID Source Type Tests Collected By Collected At Frozen? Priority Lab ID A Gallbladder Tissue HISTOLOGY - TISSUE EXAM Micaela Gupta MD 08/16/22 0842 No [id number] Description: GALLBLADDER Staff: Polymer Chemist: Zeny De La Cruz RN Scrub Person: [...] PACU - hemodynamically stable. Condition: stable Normal [facility] POCT GLUCOSE METER UNSOLICIT ED RESULTSon 08-16-2022 Glucose [Mass/Vol] 88 mg/dL Normal 70-105 [facility] Comment on above: Result Comment: epaw low Performed By: #### L [id number] #### [facility] (BEAKER) [address] [place] [address] POCT SARS-COV-2 PCRon 2021 POC SARS-COV-2 ANTIGEN Negative Normal Negative [facility] Comment on above: Result Comment: ID [...] Certificate of Accreditation. Performed By: #### L [id number] ####[facility] (BEAKER)[address] [place] [address] Orders Onlyon 08-14-2022 Orders Only [id number] HilaryLex zeng L 1960 F Date Provider Department Center 08/14/2022 [id number], HISTORICAL [facility] PAT SD Medical C No family history on file Normal [facility] [id number] 08-13-2022 [id number] NPO after [place] Must have a truck driver supervisor to take you home and someone to stay for 24 hours after surgery. No jewelry. Hold the meds we spoke about: NSAIDS Take the meds we spoke about w/a sip of water DOS: GAPAPENTIN, NEXIUM, INHALER, CYMBALTA Bring insurance card and ID. LABS AND COVID TO BE DONE IN [place]. Normal [facility] CBC AUTO DIFFon 08-13-2022 BASO # 0.0 103/ul Normal 0.0-0.1 [facility] Comment on above: Performed By: #### C BC #### [facility] Laboratory [address] [address] [address] Raul Pereira Basophils/100 WBC (Bld) 0.4 % Normal 0.2-2.0 [facility] Comment on above: Performed By: #### C BC #### [facility] Laboratory [address] [place] [address] Dr. Raul Pereira EO # 0.1 103/ul Normal 0.0-0.7 [facility] Comment on above: Performed By: #### C BC #### [facility] Laboratory [address] [place] [address] Dr. Raul Pereira Eosinophils/100 WBC (Bld) 1.2 % Normal 0.9-7.0 [facility] Comment on above: Performed By: #### C BC #### [facility] Laboratory [address] [place] [address] Dr. Raul Pereira Erythrocyte distribution width (RBC) [Ratio] 18.6 % Critically high 11.0-15.0 [facility] Comment on above: Performed By: #### C BC #### [facility] [address] [place] [address] Dr. Raul Pereira Hematocrit (Bld) [Volume fraction] 39.1 % Normal 36.0-48.0 [facility] Comment on above: Performed By: #### C BC #### [facility] [address] [place] [address] Dr. Raul Pereira Hemoglobin (Bld) [Mass/Vol] 12.5 g/dL Normal 12.0-16.0 [facility] Comment on above: Performed By: #### C BC #### [facility] [address] [place] [address] Dr. Raul Pereira IG # 0.03 10e3/ul Normal 0.00-0.03 [facility] Comment on above: Performed By: #### C BC #### [facility] [address] [place] [address] Dr. Raul Pereira IG % 0.4 % Normal 0.0-0.5 [facility] Comment on above: Performed By: #### C BC #### [facility] [address] [place] [address] Dr. Raul Pereira LYMPH # 2.0 103/ul Normal 1.2-3.8 [facility] Comment on above: Performed By: #### C BC #### [facility] [address] [place] [address] Dr. Raul Pereira Lymphocytes/100 WBC (Bld) 27.2 % Normal 20.5-60.0 [facility] Comment on above: Performed By: #### C BC #### [facility] [address] [place] [address] Dr. Raul Pereira MANUAL DIFF REQ NO Normal [facility] Comment on above: Performed By: #### C BC #### [facility] [address] [place] [address] Dr. Raul Pereira MCH (RBC) [Entitic mass] 27.2 pg Normal 26.7-34.0 [facility] Comment on above: Performed By: #### C BC #### [facility] [address] [place] [address] Dr. Raul Pereira MCHC (RBC) [Mass/Vol] 32.0 g/dL Normal 29.9-35.2 [facility] Comment on above: Performed By: #### C BC #### [facility] [address] [place] [address] Dr. Raul Pereira MCV (RBC) [Entitic vol] 85.2 fL Normal 81.0-99.0 [facility] Comment on above: Performed By: #### C BC #### [facility] [address] [place] [address] Dr. Raul Pereira MONO # 0.7 103/ul Normal 0.3-0.8 [facility] Comment on above: Performed By: #### C BC #### [facility] [address] [place] [address] Dr. Raul Pereira Monocytes/100 WBC (Bld) 9.3 % Normal 1.7-12.0 [facility] Comment on above: Performed By: #### C BC #### [facility] [address] [place] [address] Dr. Raul Pereira NEUT # 4.4 103/ul Normal 1.4-6.5 [facility] Comment on above: Performed By: #### C BC #### [facility] [address] [place] [address] Dr. Raul Pereira Neutrophils/100 WBC (Bld) 61.5 % Normal 43.0-75.0 [facility] Comment on above: Performed By: #### C BC #### [facility] [address] [place] [address] Dr. Raul Pereira Platelet mean volume (Bld) [Entitic vol] 8.7 fL Critically low 9.5-13.5 [facility] Comment on above: Performed By: #### C BC #### [facility] [address] [place] [address] Dr. Raul Pereira PLT 387 103/ul Normal 150-450 [facility] Comment on above: Performed By: #### C BC #### [facility] [address] [place] [address] Dr. Raul Pereira RBC 4.59 106/ul Normal 4.20-5.40 [facility] Comment on above: Performed By: #### C BC #### [facility] [address] [place] [address] Dr. Raul Pereira WBC 7.2 103/ul Normal 4.0-11.0 [facility] Comment on above: Performed By: #### C BC #### [facility] [address] [place] [address] Dr. Raul Pereira Covid-19 PCR ([employer])on 07-19 SARS-CoV-2 (COVID-19) RNA IMELDA+probe Ql (Unsp spec) Not detected Normal NOT DETECTED [facility] Comment on above: Result Comment: This test is not yet approved or cleared by the [place] FDA. When there are no FDA-approved or cleared tests available, and other criteria are met, FDA can make tests available under an emergency access mechanism called an Emergency Use Authorization (EUA). The EUA for this test is supported by the [place] of Health and Human Service's (HHS's) declaration [...] SARS-CoV-2. Performed By: #### C VDTB #### [facility] [address] [place] [address] Dr. Raul Pereira PROF CHEM 8 (BAS METB)on Anion gap [Moles/Vol] 11.5 mmol/L Normal [facility] Comment on above: Performed By: #### C BC #### [facility] [address] [place] [address] Dr. Raul Pereira Calcium [Mass/Vol] 9.5 mg/dL Normal 8.5-10.1 [facility] Comment on above: Performed By: #### C BC #### [facility] [address] [place] [address] Dr. Raul Pereira Chloride [Moles/Vol] 101 mmol/L Normal 98-107 [facility] Comment on above: Performed By: #### C BC #### [facility] [address] [place] [address] Dr. Raul Pereira CO2 [Moles/Vol] 29.6 mmol/L Normal 21.0-32.0 [facility] Comment on above: Performed By: #### C BC #### [facility] [address] [place] [address] Dr. Raul Pereira Creatinine [Mass/Vol] 0.65 mg/dL Normal 0.55-1.02 [facility] Comment on above: Performed By: #### C BC #### [facility] [address] [place] [address] Dr. Raul Pereira EGFR-AF EQUATORIAL GUINEAN >60 Normal >=60 [facility] Comment on above: Performed By: #### C BC #### [facility] [address] [address] [address] Raul Pereira EGFR-NON AF EQUATORIAL GUINEAN >60 Normal >=60 [facility] Comment on above: Performed By: #### C BC #### [facility] [address] [place], [place] [address] Dr. Raul Pereira Glucose [Mass/Vol] 104 mg/dL Normal 74-106 [facility] Comment on above: Performed By: #### C BC #### [facility] [address] [address] [address] Raul Pereira Potassium [Moles/Vol] 4.1 mmol/L Normal 3.5-5.1 [facility] Comment on above: Performed By: #### C BC #### [facility] [address] [address] [address] Raul Pereira Sodium [Moles/Vol] 138 mmol/L Normal 136-145 [facility] Comment on above: Performed By: #### C BC #### [facility] [address] [address] [address] Raul Pereira Urea nitrogen [Mass/Vol] 11.0 mg/dL Normal 7.0-18.0 [facility] Comment on above: Performed By: #### C BC #### [facility] [address] [address] [address] Raul Pereira Urea nitrogen/Creatinine [Mass ratio] 16.9 mg/mg Normal [facility] Comment on above: Performed By: #### C BC #### [facility] [address] [address] [address] Raul Pereira Office Visiton 08-06-2022 Follow-up visit [id number] Lex Mejia L 1960 F Date Provider Department Center 08/06/2022 454-MICAELA GUPTA [facility] SURG Second Fl No family history on file Level of Service:32476 MT OFFICE/OUTPATIENT ESTABLISHED LOW MDM 20-29 MIN Reason for Visit and Comments: Consult [484] - Rhett is here for a gallbladder consult. Rhett also c/o swelling in right leg with pain in calf. Normal [facility] PROTIME-INRon 08-06-2022 INR IN PPP BY COAGULATION ASSAY 0.89 Low 0.90-1.10 [facility] Comment on above: Result Comment: ACCC [...] 1995;[id number]. Performed By: #### L [id number] #### [facility] Erly ([facility]) [address] [place] [address] PROTHROMBIN TIME (PT) IN PPP BY COAGULATION ASSAY 12.1 Seconds Low 12.3-14.8 [facility] Comment on above: Performed By: #### L [id number] #### [facility] ([facility]) [address] [place] [address] CT ABD/PELVIS WO CONon 07-24 CT ABD/PELVIS [...] by: JESSICA LIPSCOMB Date: 2022-07-24 17:21 Normal [facility] NM HEPATOBILIARY SCAN W EFon 07-18-2022 IA HEPATOBILIARY SCAN W EF EXAMINATION: NM HEPATOBILIARY [...] by: MEAGHAN SKINNER Date: 2022-07-18 10:22 Normal [facility] CBC AUTO DIFFon 07-13-2022 BASO # 0.0 103/ul Normal 0.0-0.1 [facility] Comment on above: Performed By: #### C BC #### [facility] [address] [address] [address] Raul Pereira Basophils/100 WBC (Bld) 0.5 % Normal 0.2-2.0 [facility] Comment on above: Performed By: #### C BC #### [facility] [address] [address] [address] Raul Pereira EO # 0.1 103/ul Normal 0.0-0.7 [facility] Comment on above: Performed By: #### C BC #### [facility] [address] [place] [address] Dr. Raul Pereira Eosinophils/100 WBC (Bld) 0.9 % Normal 0.9-7.0 [facility] Comment on above: Performed By: #### C BC #### [facility] [address] [place] [address] Dr. Raul Pereira Erythrocyte distribution width (RBC) [Ratio] 20.2 % Critically high 11.0-15.0 [facility] Comment on above: Performed By: #### C BC #### [facility] [address] [place] [address] Dr. Raul Pereira Hematocrit (Bld) [Volume fraction] 41.1 % Normal 36.0-48.0 [facility] Comment on above: Performed By: #### C BC #### [facility] [address] [place] [address] Dr. Raul Pereira Hemoglobin (Bld) [Mass/Vol] 13.2 g/dL Normal 12.0-16.0 [facility] Comment on above: Performed By: #### C BC #### [facility] [address] [place] [address] Dr. Raul Pereira IG # 0.05 10e3/ul Critically high 0.00-0.03 [facility] Comment on above: Performed By: #### C BC #### [facility] [address] [place] [address] Dr. Raul Pereira IG % 0.6 % Critically high 0.0-0.5 [facility] Comment on above: Performed By: #### C BC #### [facility] [address] [place] [address] Dr. Raul Pereira LYMPH # 1.4 103/ul Normal 1.2-3.8 [facility] Comment on above: Performed By: #### C BC #### [facility] [address] [place] [address] Dr. Raul Pereira Lymphocytes/100 WBC (Bld) 17.3 % Critically low 20.5-60.0 [facility] Comment on above: Performed By: #### C BC #### [facility] [address] [place] [address] Dr. Raul Pereira MANUAL DIFF REQ NO Normal [facility] Comment on above: Performed By: #### C BC #### [facility] [address] [place] [address] Dr. Raul Pereira MCH (RBC) [Entitic mass] 27.3 pg Normal 26.7-34.0 [facility] Comment on above: Performed By: #### C BC #### [facility] [address] [place] [address] Dr. Raul Pereira MCHC (RBC) [Mass/Vol] 32.1 g/dL Normal 29.9-35.2 [facility] Comment on above: Performed By: #### C BC #### [facility] [address] [place] [address] Dr. Raul Pereira MCV (RBC) [Entitic vol] 84.9 fL Normal 81.0-99.0 [facility] Comment on above: Performed By: #### C BC #### [facility] [address] [place] [address] Dr. Raul Pereira MONO # 0.8 103/ul Normal 0.3-0.8 [facility] Comment on above: Performed By: #### C BC #### [facility] [address] [place] [address] Dr. Raul Pereira Monocytes/100 WBC (Bld) 10.0 % Normal 1.7-12.0 [facility] Comment on above: Performed By: #### C BC #### [facility] [address] [place] [address] Dr. Raul Pereira NEUT # 5.8 103/ul Normal 1.4-6.5 [facility] Comment on above: Performed By: #### C BC #### [facility] [address] [place] [address] Dr. Raul Pereira Neutrophils/100 WBC (Bld) 70.7 % Normal 43.0-75.0 [facility] Comment on above: Performed By: #### C BC #### [facility] [address] [place] [address] Dr. Raul Pereira Platelet mean volume (Bld) [Entitic vol] 9.1 fL Critically low 9.5-13.5 [facility] Comment on above: Performed By: #### C BC #### [facility] [address] [place] [address] Dr. Raul Pereira PLT 358 103/ul Normal 150-450 [facility] Comment on above: Performed By: #### C BC #### [facility] [address] [place] [address] Dr. Raul Pereira RBC 4.84 106/ul Normal 4.20-5.40 [facility] Comment on above: Performed By: #### C BC #### [facility] [address] [place] [address] Dr. Raul Pereira WBC 8.1 103/ul Normal 4.0-11.0 [facility] Comment on above: Performed By: #### C BC #### [facility] [address] [place] [address] Dr. Raul Pereira LIPASEon 07-13-2022 Lipase [Catalytic activity/Vol] 47.0 U/L Critically low 73.0-393.0 [facility] Comment on above: Performed By: #### C BC #### [facility] [address] [place] [address] Dr. aRul Pereira PROF 14(COMP METB)on 022 Albumin [Mass/Vol] 3.6 g/dL Normal 3.4-5.0 [facility] Comment on above: Performed By: #### C BC #### [facility] [address] [place] [address] Dr. Raul Pereira Albumin/Globulin [Mass ratio] 1.0 {ratio} Normal [facility] Comment on above: Performed By: #### C BC #### [facility] [address] [place] [address] Dr. Raul Pereira ALP [Catalytic activity/Vol] 88 U/L Normal 46-116 [facility] Comment on above: Performed By: #### C BC #### [facility] [address] [place] [address] Dr. Raul Pereira ALT [Catalytic activity/Vol] 16 U/L Normal 14-59 [facility] Comment on above: Performed By: #### C BC #### [facility] [address] [place] [address] Dr. Raul Pereira Anion gap [Moles/Vol] 13.2 mmol/L Normal [facility] Comment on above: Performed By: #### C BC #### [facility] [address] [place] [address] Dr. Raul Pereira AST [Catalytic activity/Vol] 15 U/L Normal 15-37 [facility] Comment on above: Performed By: #### C BC #### [facility] [address] [place] [address] Dr. Raul Pereira Bilirubin [Mass/Vol] 0.2 mg/dL Normal 0.2-1.0 [facility] Comment on above: Performed By: #### C BC #### [facility] [address] [place] [address] Dr. Raul Pereira Calcium [Mass/Vol] 9.5 mg/dL Normal 8.5-10.1 [facility] Comment on above: Performed By: #### C BC #### [facility] [address] [place] [address] Dr. Raul Pereira Chloride [Moles/Vol] 100 mmol/L Normal 98-107 [facility] Comment on above: Performed By: #### C BC #### [facility] [address] [address] [address] Raul Pereira CO2 [Moles/Vol] 28.0 mmol/L Normal 21.0-32.0 [facility] Comment on above: Performed By: #### C BC #### [facility] [address] [address] [address] Raul Pereira Creatinine [Mass/Vol] 0.78 mg/dL Normal 0.55-1.02 [facility] Comment on above: Performed By: #### C BC #### [facility] [address] [place] [address] Dr. Raul Pereira EGFR-AF EQUATORIAL GUINEAN >60 Normal >=60 [facility] Comment on above: Performed By: #### C BC #### [facility] [address] [place] [address] Dr. Raul Pereira EGFR-NON AF EQUATORIAL GUINEAN >60 Normal >=60 [facility] Comment on above: Performed By: #### C BC #### [facility] [address] [place] [address] Dr. Raul Pereira Globulin (S) [Mass/Vol] 3.6 g/dL Normal [facility] Comment on above: Performed By: #### C BC #### [facility] [address] [place] [address] Dr. Raul Pereira Glucose [Mass/Vol] 86 mg/dL Normal 74-106 [facility] Comment on above: Performed By: #### C BC #### [facility] [address] [place] [address] Dr. Raul Pereira Potassium [Moles/Vol] 4.2 mmol/L Normal 3.5-5.1 [facility] Comment on above: Performed By: #### C BC #### [facility] [address] [place] [address] Dr. Raul Pereira Protein [Mass/Vol] 7.2 g/dL Normal 6.4-8.2 [facility] Comment on above: Performed By: #### C BC #### [facility] [address] [place], [place] [address] Dr. Raul Pereira Sodium [Moles/Vol] 137 mmol/L Normal 136-145 [facility] Comment on above: Performed By: #### C BC #### [facility] [address] [place], [place] [address] Dr. Raul Pereira Urea nitrogen [Mass/Vol] 11.0 mg/dL Normal 7.0-18.0 [facility] Comment on above: Performed By: #### C BC #### [facility] [address] [place], [place] [address] Dr. Raul Pereira Urea nitrogen/Creatinine [Mass ratio] 14.1 mg/mg Normal [facility] Comment on above: Performed By: #### C BC #### [facility] [address] [place], [place] [address] Dr. Raul Pereira US SINGLE QUAD RT UPPERon US SINGLE QUAD RT [facility] EXAM: US SINGLE QUAD RT UPPER 07/13/2022 [...] MICAH ROSAS Date: 2022-07-13 16:33 Normal [facility] Covid-19 PCR ([facility])on 06-17 SARS-CoV-2 (COVID-19) RNA IMELDA+probe Ql (Unsp spec) Not detected Normal NOT DETECTED [facility] Comment on above: Result Comment: This test is not yet approved or cleared by the [place] FDA. When there are no FDA-approved or cleared tests available, and other criteria are met, FDA can make tests available under an emergency access mechanism called an Emergency Use Authorization (EUA). The EUA for this test is supported by the [place] of Health and Human Service's (HHS's) declaration [...] consistent with SARS-CoV-2. Performed By: #### [facility] [employer] #### [facility] [address] [place] [address] Dr. Raul Pereira Endoscopy Reporton 8 Endoscopy Report [id number] Rhett Mejia Surgery Date: 02/24/2018 Room #: Z0 Date of : 1960 PROCEDURE NOTEATTENDING: Xin Beasley M.D.PROCEDURE PERFORMED: EGD.KNITTING MACHINE OPERATOR HELPER: Dr. Noland.SEDATION:1. Versed 10 mg.2. Fentanyl 250 [...] 02/24/2018/09:53 Kiara/Ruddy Noland M.D.Date Trans: 02/24/2018 12:13 P/Aditya_JN:[id number] cc: Napoleon Rahman M.D. [address] [place] [address] [place] [facility] Endoscopy Report MR#: [id number] Pt[facility] Name: Rhett Mejia Surgery Date: 02/24/2018 Room #: Z0 Date of : 1960 PROCEDURE NOTEATTENDING: Xin Beasley M.D.PROCEDURE PERFORMED: Colonoscopy and polypectomy.KNITTING MACHINE OPERATOR HELPER: Ruddy Noland M.D.SEDATION: Versed 10 mg and [...] 02/24/2018/09:57 Kiara/Ruddy Noland M.D.Date Trans: 02/24/2018 10:12 A/Aditya_JN:[id number] cc: Napoleon Rahman M.D. [address] [facility] Kiara [facility] [id number] Normal [facility] POC GLUCOSE LABon 02-24-2018 Glucose mass conc 87 mg/dL Normal 70-100 [facility] Comment on above: Performed By: #### 8 [id number] ####[facility] Vital Signs Date Time Vital Sign Value Performing Clinician Facility NEGATED: Highlighted row BMI (Body Mass Index) [facility] NEGATED: Highlighted row Body Temperature [facility] NEGATED: Highlighted row Body weight [facility] NEGATED: Highlighted row BP Diastolic [facility] NEGATED: Highlighted row BP Systolic [facility] NEGATED: Highlighted row Height [facility] NEGATED: Highlighted row Pulse (Heart Rate) [facility] NEGATED: Highlighted row Pulse Oximetry [facility] NEGATED: Highlighted row Respiratory Rate [facility] Encounters Encounter Date Encounter Type Care Provider Facility Start: 08-02-2024 End: 08-02-2024 ambulatory Monica Malagon MD Facility:[facility] Start: 07-30-2024 ambulatory Cristian Johnson acility:[facility] Start: 06-21-2024 End: 06-21-2024 ambulatory Monica Malagon MD [facility] Start: 09-22-2023 End: 09-22-2023 ambulatory Monica Malagon MD Facility:[facility] Start: 04-08-[address] NAPOLEON RAHMAN [...] abnormal findings DR NAPOLEON RAHMAN . [facility] Start: 01-31-2023 End: 02-01-2023 Encounter for general [...] laboratory examination DR BETHEL LITTLE . [facility] Start: 12-13-2022 End: 12-14-[address] BETHEL [...] . Facility:[facility] Start: 08-27-2022 End: 08-27-2022 ambulatory [facility] Start: 08-16-2022 End: 08-16-2022 ambulatory [facility] Start: 08-15-2022 Encounter for other preprocedural examination DR MICAELA GUPTA [facility] Start: 08-15-2022 Encounter for preprocedural laboratory examination DR MICAELA GUPTA [facility] Start: 08-13-2022 End: 08-14-[address] MICAELA GUPTA Facility:[facility] Start: 08-13-2022 End: 08-14-2022 Encounter for other preprocedural examination DR MICAELA GUPTA Facility:[facility] Start: 08-06-2022 End: 08-07-2022 ambulatory [facility] Start: 08-06-2022 End: 08-06-2022 ambulatory [facility] Start: 08-06-2022 ambulatory [facility] Start: 07-24-2022 End: 07-25-[address] NAPOLEON RAHMAN . Facility:[facility] Start: 07-18-2022 End: 07-19-[address] ANPOLEON RAHMAN . Facility:[facility] Start: 07-13-2022 End: 07-13-2022 [...] Start: 02-24-2018 End: 02-25-2018 Ambulatory XIN BEASLEY Facility:[facility] Start: 10-19-2014 End: 10-19-2014 Patient encounter procedure [facility] Start: 12-22-2013 End: 12-22-2013 Departed Referred [facility] Start: 10-12-2001 End: 10-12-2001 Patient encounter procedure [facility] Start: 09-01-2001 End: 09-01-2001 Patient encounter procedure [facility] Start: 08-26-2001 End: 08-26-2001 Patient encounter procedure [facility] Start: 03-21-1999 End: 03-28-1999 Evaluation and management of inpatient [facility] Start: 09-07-1997 End: 09-07-1997 Admission to day surgery [facility] Start: 07-21-1997 End: 07-21-1997 Emergency department patient visit [facility] Procedures Date Procedure Procedure Detail Performing Clinician Start: 02-24-2018 Colsc flx w/removal lesion by hot bx forceps XIN BEASLEY Payers Date Payer Category Payer Unknown 2015 Medicare 1960 Self-pay 1959 Self-pay [id number] 1959 Unknown [id number] 1959 Unknown [id number] 2.16.84 0.1.470036.3.579.2.593 1959 Unknown [id number] 2.16.84 0.1.313144.3.579.2.593 1959 Unknown [id number] 2.16.84 0.1.747847.3.579.2.593 1959 Unknown [id number] 2.16.84 0.1.221815.3.579.2.593 1959 Unknown [id number] 2.16.84 0.1.786915.3.579.2.593 1959 Unknown [id number] 2.16.84 0.1.584415.3.579.2.593 1959 Unknown [id number] 2.16.84 0.1.561013.3.579.2.593 1959 Unknown [id number] 2.16.84 0.1.109342.3.579.2.593 1959 Unknown [id number] 2.16.84 0.1.369211.3.579.2.593 1959 Unknown [id number] 2.16.84 0.1.865493.3.579.2.593 1959 Unknown [id number] 2.16.84 0.1.933883.3.579.2.593 1959 Unknown [id number] 2.16.84 0.1.653848.3.579.2.593 1959 Unknown [id number] 2.16.84 0.1.299067.3.579.2.593 1959 Unknown [id number] 2.16.84 0.1.770720.3.579.2.593 1959 Unknown [id number] 2.16.84 0.1.336002.3.579.2.593 1959 Unknown [id number] 2.16.84 0.1.833800.3.579.2.593 1959 Unknown [id number] 2.16.84 0.1.922922.3.579.2.593 1959 Unknown [id number] 2.16.84 0.1.505108.3.579.2.593 1959 Unknown [id number] 2.16.84 0.1.268091.3.579.2.593 1959 Unknown [id number] 2.16.84 0.1.448994.3.579.2.593 1959 Unknown [id number] 2.16.84 0.1.004654.3.579.2.593 1959 Unknown [id number] 2.16.84 0.1.440468.3.579.2.593 1959 Unknown [id number] 2.16.84 0.1.657629.3.579.2.593 1959 Unknown [id number] 2.16.84 0.1.708705.3.579.2.593 1959 Unknown [id number] 2.16.84 0.1.566412.3.579.2.593 1959 Unknown [id number] 2.16.84 0.1.847345.3.579.2.593 1959 Unknown [id number] 2.16.84 0.1.356736.3.579.2.593 1959 Unknown [id number] 2.16.84 0.1.456928.3.579.2.593 1959 Unknown [id number] 2.16.84 0.1.460577.3.579.2.593 1959 Unknown [id number] 2.16. 840.1.808397.3.579.2.196 1959 Unknown [id number] 2.16. 840.1.172735.3.579.2.196 1959 Unknown [id number] 2.16. 840.1.607383.3.579.2.196 Medicare [id number] [id number] Unknown [id number] Unknown [id number] 2.16.84 0.1.074709.3.579.2.593 Unknown [id number] 2.16.8 40.1.498009.3.579.2.531 Clinical Notes 05-15-2022 to 02-18-2023 Note Date [...] our patients to inform us about any qqak-inf-shvaccl medications or herbal remedies/nutritional supplements/alternative remedies. 2. [...] options with their primary care provider. [facility] 01-16-2023 Note CONSULTATION CONSULTATION DATE: 01/16/2023 HISTORY: [...] up in the clinic post epidural. [facility] 12-04-2022 Note CONSULTATION CONSULTATION DATE: 12/04/2022 HISTORY [...] in the office after the procedure. [facility] 11-15-2022 Note CONSULTATION PROCEDURE DATE: 11/15/2022 PREOPERATIVE [...] the office following her RFA procedure. [facility] 11-15-2022 Note CONSULTATION CONSULTATION DATE: 11/15/2022 HISTORY [...] measures such as heat and stretches. [facility] 08-29-2022 Note CONSULTATION PROCEDURE DATE: 08/29/2022 PREOPERATIVE [...] pattern. Patient tolerated the procedure well. [facility] 08-29-2022 Note CONSULTATION CONSULTATION DATE: 08/29/2022 HISTORY [...] up in the office post procedure. [facility] 08-29-2022 Note CONSULTATION CONSULTATION DATE: 08/29/2022 ADDENDUM: Addendum to peer plan: We will repeat radiofrequency ablation starting on the right side and subsequently moving to the left at T11, T12 and L1, L2. [facility] 08-27-2022 Note Subjective Patient ID: Rhett Mejia [...] past 36 hour(s)). No follow-ups on file. [facility] 08-16-2022 Note Patient: Rhett rousseau Procedure Summary Date: 08/16/22 Room / Location: [facility] OPERATING ROOM 01 / [facility] Operating Room Anesthesia Start: 734 Anesthesia [...] no known notable events for this encounter. [facility] 08-16-2022 Note Airway Date/Time: 08/16/2022 7:44 AM Urgency: elective Airway not difficult General Information and Staff Patient location during procedure: OR Anesthesiologist: Cassi Velez MD Resident/PHP MAGENTO DEVELOPER/CAA: LEONARD Canales Performed: resident/PHP MAGENTO DEVELOPER/CAA Indications and Patient Condition Indications for airway [...] before airway management; Dentures to Circ RN [facility] 08-16-2022 Note Patient: Rhett rousseau Procedure Information Date/Time: 08/16/22 0730 Procedure: CHOLECYSTECTOMY, LAPAROSCOPIC, WITH INTRAOPERATIVE CHOLANGIOGRAM, WITH LAPAROTOMY IF INDICATED REQ BRADEREJE OR MANDO HUERTA MAUK, WOODSON - C-ARM AVAIL STAFF REQUESTS: MANDO DE LA CRUZ AND SHAHID Location: [facility] OPERATING ROOM 01 / [facility] Operating Room Surgeons: Micaela Gupta MD [...] Plan discussed with CAA. Additional Equipment Requests [facility] 08-06-2022 Note Subjective Patient ID: Rhett [...] past 36 hour(s)). No follow-ups on file. [facility] 08-06-2022 Note Subjective Patient ID: Rhett [...] past 36 hour(s)). No follow-ups on file. [facility] 06-12-2022 Note CONSULTATION PROCEDURE DATE: 06/12/2022 [...] The patient tolerated the procedure well. [facility] 06-12-2022 Note CONSULTATION CONSULTATION DATE: 06/12/2022 HISTORY [...] agrees to the plan of care. [facility] 05-15-2022 Note CONSULTATION CONSULTATION DATE: 05/15/2022 HISTORY [...] Patient agrees with the plan of care. IF Signed and Approved by: RUBY RAMIREZ . 05/16/2022 13:38:00 [facility] 05-15-2022 Note CONSULTATION PROCEDURE DATE: 05/15/2022 [...] will be followed up in the office. [facility] Signed and Approved by: RUBY RAMIREZ . 05/16/2022 13:38:00 [facility] Summary Purpose Family History No Family [...] 05/07/2018 [facility] DATE CREATED AUTHOR AUTHOR'S ORGANIZ ATION 09/26/[address] [facility] DATE CREATED AUTHOR AUTHOR'S ORGANIZ ATION 03/28/2023 [facility] DATE CREATED AUTHOR AUTHOR'S ORGANIZ ATION 08/01/2024 [facility] DATE CREATED AUTHOR AUTHOR'S ORGANIZ ATION 08/08/2024 [facility] FOR RECORDS PERTAINING TO PATIENTS WHO [...] BE BASED ON THE PRIMARY CLINICAL RECORDS. [facility] [facility]. provides no warranty or guarantee of the accuracy or completeness of information in this document.
[2024-08-16 09:25] VITALS: BP 149/89; PULSE 90; TEMP 36.2; O2SAT 95
[2024-08-16 10:07] VITALS: BP 139/67; PULSE 86; O2SAT 89
[2024-08-16 10:08] VITALS: BP 139/77; PULSE 86; O2SAT 94
[2024-08-16] MEDS: DEXAMETHASONE SOD PHOS 10 MG/ML VIAL INJ (10:12)
[2024-08-16] MEDS: 0.9 % SODIUM CHLORIDE 10 ML SYRINGE - SALINE FLUSH INJ (10:12)
[2024-08-16] MEDS: BUPIVACAINE HCL 0.25% PF 25 MG/10 ML VIAL INJ (10:12)
--- NOTE | 2024-08-16 10:12 | W.PM.PROCNOT ---
Date of procedure: 08/16/24 Pre-op diagnosis: Pain due to lumbar stenosis with neurogenic claudication Post-op diagnosis: same as pre-op Procedure: Procedure: Bilateral L3-4 transforaminal epidural steroid injection Medications: Bupivacaine 0.25% 2cc, lidocaine 2% 1cc, dexamethasone 10mg The patient was seen and examined in the preoperative holding area.? Informed consent was obtained and placed on the chart.? Patient was brought to the medical procedure unit and placed in the prone position where a timeout was completed verifying the correct patient, procedure site, position, and planned special equipment using sterile aseptic technique.? Under direct fluoroscopic visualization a 25-gauge Quincke tipped spinal needle was advanced at level left L3-4 to the designated neural foramen where contrast dye was injected to show adequate spread.? There was no evidence of vascular or adverse uptake.? Epidural spread was appreciated.? The above-mentioned injectate was then placed in a 1.5 mL aliquot preceded by negative aspiration.? The needle was removed. The same procedure, at the same level, was completed on the opposite side. ? Patient was taken to the postprocedural recovery area and monitored for an appropriate length of time before found suitable for discharge in the accompaniment of a responsible adult. Anesthesia: Local Surgeon: Monica Malagon Pathology: none sent Condition: stable Disposition: no change
[2024-08-16] MEDS: LIDOCAINE HCL 2% 400 MG/20 ML MDV INJ (10:13)
== END 2024-08-16 10:17 | disposition home or self-care (01) ==
LOC: SURGOUT 08:58
PROVIDERS: PCP Family Medicine; Visit Provider Anesthesiology
DX: M48.062 Spinal stenosis, lumbar region with neurogenic claudication (principal)
CPT/HCPCS: 64483; J0665; J1100

== ENCOUNTER 2024-08-25 10:45 | Outpatient (OUT) | payer MEDICARE, OTHER, SELFPAY ==
--- OUTSIDE RECORDS SUMMARY | 2024-08-25 10:49 | XMS_ITS | CCD ---
Author Organization [facility] Care Team Providers Care Vascular Technologist Sonographer Name Role Phone NAWRAS, ALI T Unavailable [...] Unavailable HOY ., DR BENDER Attending Unavailable JACKSON, DR MEAGHAN Stanton Consulting Unavailable HOY ., [...] DR BENDER Admitting Unavailable HOY ., DR BEDNER Attending Unavailable ZIEBER, DR JESSICA Raya Consulting [...] Unavailable HOY ., DR BENDER Attending Unavailable JACKSON, DR MEAGHAN Stanton Consulting Unavailable RAMIREZ ., [...] BETHEL Reyes Admitting Unavailable HOY ., DR BNEDER Primary Care Unavailable HOY ., DR BENDER [...] Unavailable REQUEST, DR KENNETH LISTED Consulting Unavaila ble JOHN ., DR BENDER Primary Care Unavailable HOY ., DR BENDER Admitting Unavailable HOY ., DR BENDER Attending Unavailable AlexandraCristian zayas Attending Unavailab le Cristian Morris Admitting Unavailab Napoleon Gómez Primary Care Unavailable Giedraitis , Andcandi Vytautojhanny Attending Unavailable Giedraitis MD, Andrius Vytautjohanny Attending Unavailable Giedraitis MD, Andrius Vytautas Attending Unavailable Giedraitis MD, Andrius Vytautas Attending Unavailable Allergies Allergy Classification Reported Allergen(s) Allergy Type Date of Onset Reaction(s) Facility (1 source) Contrast media; Translations: [IVP DYE] Propensity to adverse reactions (disorder) [address] [facility] Repository (2 sources) corn extract; Translations: [CORN] Drug Allergy [address] [facility] Repository (6 sources) iodine; Translations: [IODINE] Drug Allergy [address] [facility] Repository (6 sources) Latex; Translations: [LATEX] Drug allergy (disorder) [address] [facility] Repository (1 source) loratadine Drug Allergy [address] [facility] Repository (2 sources) loratadine; Translations: [LORATADINE] Drug Allergy [address] [facility] Repository (1 source) montelukast Drug Allergy [address] [facility] Repository (3 sources) papaveretum; Translations: [SOYBEAN] Drug Allergy [address] [facility] Repository (2 sources) Penicillins; Translations: [PENICILLINS] Drug allergy (disorder) [address] [facility] Repository (1 source) povidone-iodine Drug Allergy [address] [facility] Repository (6 sources) propofol; Translations: [PROPOFOL] Drug Allergy [address] [facility] Repository (2 sources) wheat preparation; Translations: [WHEAT] Drug Allergy [address] [facility] Repository (5 sources) Iodinated Contrast Media; Translations: [IODINATED CONTRAST MEDIA] Allergy to Substance [address] [facility] Repository (1 source) montelukast; Translations: [MONTELUKAST] Drug Allergy 4 [facility] (1 source) oxybutynin; Translations: [DITROPAN] Drug Allergy 2 [facility] (1 source) Povidone-Iodine; Translations: [POVIDONE-IODINE] Drug Allergy 4 [facility] (1 source) Soy protein; Translations: [SOY] Propensity to adverse reactions to drug (disorder) 2 [facility] (1 source) Iodine (And Iodine Containting Drugs) Drug allergy (disorder) 4 [facility] Repository (1 source) Penicillin Drug Allergy [facility] Repository (1 source) Sulfonamides (Antibiotic) Drug allergy (disorder) 2 [facility] Repository (1 source) Iodine Drug Allergy 8 [facility] Repository (1 source) Latex Drug allergy (disorder) 8 [facility] Repository (1 source) Propofol Drug Allergy 8 [facility] Repository Medications Completed/Discontinued Medications Medication Drug [...] UNSPECIFIED; Translations: [LOW BACK PAIN, UNSPECIFIED] Onset: Past or Other Problems Problem Classification Problem Date Documented Da te Episodic/Chronic Abdominal pain (9 sources) Right upper quadrant pain; Translations: [Unspecified abdominal pain] Onset: 07-15-2022 Episodic Biliary tract disease (5 sources) Calculus of gallbladder without cholecystitis without obstruction; Translations: [Other cholelithiasis without obstruction] Onset: 07-15-2022 Episodic Other aftercare (1 source) 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 Raul Pereira Basophils/100 WBC (Bld) 0.6 % Normal 0.2-2.0 [facility] Comment on above: Performed By: #### C BC #### [facility] [address] [place] [address] Dr. Raul Pereira EO # 0.2 103/ul Normal 0.0-0.7 [facility] Comment on above: Performed By: #### C BC #### [facility] [address] [place] [address] Dr. Raul Pereira Eosinophils/100 WBC (Bld) 2.3 % Normal 0.9-7.0 [facility] Comment on above: Performed By: #### C BC #### [facility] [address] [place] [address] Dr. Raul Pereira Hematocrit (Bld) [Volume fraction] 39.5 % Normal 36.0-48.0 [facility] Comment on above: Performed By: #### C BC #### [facility] [address] [place] [address] Dr. Raul Pereira Hemoglobin (Bld) [Mass/Vol] 12.3 g/dL Normal 12.0-16.0 [facility] Comment on above: Performed By: #### C BC #### [facility] [address] [place] [address] Dr. Raul Pereira IG # 0.03 10e3/ul Normal 0.00-0.03 [facility] Comment on above: Performed By: #### C BC #### [facility] [address] [place] [address] Dr. Raul Pereira IG % 0.4 % Normal 0.0-0.5 [facility] Comment on above: Performed By: #### C BC #### [facility] [address] [address] [address] Raul Pereira LYMPH # 2.1 103/ul Normal 1.2-3.8 [facility] Comment on above: Performed By: #### C BC #### [facility] [address] [place] [address] Dr. Raul Pereira Lymphocytes/100 WBC (Bld) 24.8 % Normal 20.5-60.0 [facility] Comment on above: Performed By: #### C BC #### [facility] [address] [place] [address] Dr. Raul Pereira MANUAL DIFF REQ NO Normal [facility] Comment on above: Performed By: #### C BC #### [facility] [address] [place] [address] Dr. Raul Pereira MCH (RBC) [Entitic mass] 26.3 pg Critically low 26.7-34.0 [facility] Comment on above: Performed By: #### C BC #### [facility] [address] [place] [address] Dr. Raul Pereira MCHC (RBC) [Mass/Vol] 31.1 g/dL Normal 29.9-35.2 [facility] Comment on above: Performed By: #### C BC #### [facility] [address] [place] [address] Dr. Raul Pereira MCV (RBC) [Entitic vol] 84.4 fL Normal 81.0-99.0 [facility] Comment on above: Performed By: #### C BC #### [facility] [address] [place] [address] Dr. Raul Pereira MONO # 1.0 103/ul Critically high 0.3-0.8 [facility] Comment on above: Performed By: #### C BC #### [facility] [address] [place] [address] Dr. Raul Pereira Monocytes/100 WBC (Bld) 11.8 % Normal 1.7-12.0 [facility] Comment on above: Performed By: #### C BC #### [facility] [address] [place] [address] Dr. Raul Pereira NEUT # 5.0 103/ul Normal 1.4-6.5 [facility] Comment on above: Performed By: #### C BC #### [facility] [address] [place] [address] Dr. Raul Pereira Neutrophils/100 WBC (Bld) 60.1 % Normal 43.0-75.0 [facility] Comment on above: Performed By: #### C BC #### [facility] [address] [place] [address] Dr. Raul Pereira Platelet mean volume (Bld) [Entitic vol] 8.8 fL Critically low 9.5-13.5 [facility] Comment on above: Performed By: #### C BC #### [facility] [address] [place] [address] Dr. Raul Pereira PLT 418 103/ul Normal 150-450 [facility] Comment on above: Performed By: #### C BC #### [facility] [address] [place] [address] Dr. Raul Pereira RBC 4.68 106/ul Normal 4.20-5.40 [facility] Comment on above: Performed By: #### C BC #### [facility] [address] [place] [address] Dr. Raul Pereira WBC 8.3 103/ul Normal 4.0-11.0 [facility] Comment on above: Performed By: #### C BC #### [facility] [address] [place] [address] Dr. Raul Pereira FERRITINon 02-20-2023 Ferritin [Mass/Vol] 15.0 ng/mL Normal 8.0-252.0 [facility] Comment on above: Performed By: #### C #### [facility] [address] [address] [address] Raul Pereira XR CSPINE 2_3 VIEWSon [...] JESSICA LIPSCOMB Date: 2023-02-19 06:42 Normal [facility] [address] LUNG CANCER SCREENINGon 0 02-13-2023 [...] by: MEAGHAN SKINNER Date: 2023-02-13 11:02 Normal [facility] ECHOCARDIO M/2D COMPLETEon 0 02-13-2023 ECHOCARDIO M/2D COMPLETE Patient: RHETT MEJIA Exam Date: 02/13/2023 : 1960 Gender:F Ordering : DR NAPOLEON RAHMAN . Admission #: [id number] Family : Order #: [id number] CLICK HERE TO VIEW EXAM ECHOCARDIOGRAM REPORT [...] M.D. on 02/13/2023 at 18:54 Normal [facility] CREATININEon 02-12-2023 Creatinine [Mass/Vol] 0.76 mg/dL Normal 0.55-1.02 [facility] Comment on above: Performed By: #### C BC #### [facility] [address] [address] [address] Raul Pereira EGFR-AF BENINESE >60 Normal >=60 [facility] Comment on above: Performed By: #### C BC #### [facility] [address] [place], [place] [address] Dr. Raul Pereira EGFR-NON AF BENINESE >60 Normal >=60 [facility] Comment on above: Performed By: #### C BC #### [facility] [address] [address] [address] Raul Pereira MRI BRAIN WO W [...] by: JESSICA LIPSCOMB Date: 2023-02-12 12:37 Normal [facility] US CAROTID ART BILon 023 US CAROTID [...] JESSICA LIPSCOMB Date: 2023-02-12 14:03 Normal [facility] COMPLIANCE DRUG SCREENon PDF . Normal [facility] Comment on above: Performed By: #### C BC #### [facility] [address] [address] [address] Raul Pereira Summary FINAL Normal [facility] Comment on above: Result Comment: == [...] == Performed By: #### C BC #### [facility] [address] [place] [address] Dr. Raul Pereira CULTURE URINEon 02-02-2023 CULTURE [...] Trimethoprim/Sulfamethoxa zole <=20 S F Normal [facility] Comment on above: Performed By: #### U RCX #### [facility] [address] [place] [address] Dr. Raul Pereira AMMONIAon 01-31-2023 Ammonia (P) [Moles/Vol] 13 umol/L Normal [facility] Comment on above: Performed By: #### A MM ####[facility] [address] [address]Dr. Raul Pereira CBC AUTO DIFFon 01-31-2023 BASO # 0.1 103/ul Normal 0.0-0.1 [facility] Comment on above: Performed By: #### C BC #### [facility] [address] [address] [address] Raul Pereira Basophils/100 WBC (Bld) 0.6 % Normal 0.2-2.0 [facility] Comment on above: Performed By: #### C BC #### [facility] [address] [place] [address] Dr. Raul Pereira EO # 0.1 103/ul Normal 0.0-0.7 [facility] Comment on above: Performed By: #### C BC #### [facility] [address] [place] [address] Dr. Raul Pereira Eosinophils/100 WBC (Bld) 1.7 % Normal 0.9-7.0 [facility] Comment on above: Performed By: #### C BC #### [facility] [address] [place] [address] Dr. Raul Pereira Erythrocyte distribution width (RBC) [Ratio] 25.9 % Critically high 11.0-15.0 [facility] Comment on above: Result Comment: 2+ a niso Performed By: #### C BC #### [facility] [address] [place] [address] Dr. Raul Pereira Hematocrit (Bld) [Volume fraction] 42.4 % Normal 36.0-48.0 [facility] Comment on above: Performed By: #### C BC #### [facility] [address] [place] [address] Dr. Raul Pereira Hemoglobin (Bld) [Mass/Vol] 13.1 g/dL Normal 12.0-16.0 [facility] Comment on above: Performed By: #### C BC #### [facility] [address] [place] [address] Dr. Raul Pereira IG # 0.02 10e3/ul Normal 0.00-0.03 [facility] Comment on above: Performed By: #### C BC #### [facility] [address] [place] [address] Dr. Raul Pereira IG % 0.2 % Normal 0.0-0.5 [facility] Comment on above: Performed By: #### C BC #### [facility] [address] [place] [address] Dr. Raul Pereira LYMPH # 2.0 103/ul Normal 1.2-3.8 [facility] Comment on above: Performed By: #### C BC #### [facility] [address] [place] [address] Dr. Raul Pereira Lymphocytes/100 WBC (Bld) 24.8 % Normal 20.5-60.0 [facility] Comment on above: Performed By: #### C BC #### [facility] [address] [place] [address] Dr. Raul Pereira MANUAL DIFF REQ NO Normal [facility] Comment on above: Performed By: #### C BC #### [facility] [address] [place] [address] Dr. Raul Pereira MCH (RBC) [Entitic mass] 25.3 pg Critically low 26.7-34.0 [facility] Comment on above: Performed By: #### C BC #### [facility] [address] [place] [address] Dr. Raul Pereira MCHC (RBC) [Mass/Vol] 30.9 g/dL Normal 29.9-35.2 [facility] Comment on above: Performed By: #### C BC #### [facility] [address] [place] [address] Dr. Raul Pereira MCV (RBC) [Entitic vol] 82.0 fL Normal 81.0-99.0 [facility] Comment on above: Performed By: #### C BC #### [facility] [address] [place] [address] Dr. Raul Pereira MONO # 0.7 103/ul Normal 0.3-0.8 [facility] Comment on above: Performed By: #### C BC #### [facility] [address] [address] [address] Raul Pereira Monocytes/100 WBC (Bld) 8.8 % Normal 1.7-12.0 [facility] Comment on above: Performed By: #### C BC #### [facility] [address] [address] [address] Raul Pereira NEUT # 5.2 103/ul Normal 1.4-6.5 [facility] Comment on above: Performed By: #### C BC #### [facility] [address] [address] [address] Raul Pereira Neutrophils/100 WBC (Bld) 63.9 % Normal 43.0-75.0 [facility] Comment on above: Performed By: #### C BC #### [facility] [address] [address] [address] Raul Pereira Platelet mean volume (Bld) [Entitic vol] 9.2 fL Critically low 9.5-13.5 [facility] Comment on above: Performed By: #### C BC #### [facility] [address] [address] [address] Raul Pereira PLT 334 103/ul Normal 150-450 [facility] Comment on above: Performed By: #### C BC #### [facility] [address] [address] [address] Raul Pereira RBC 5.17 106/ul Normal 4.20-5.40 [facility] Comment on above: Performed By: #### C BC #### [facility] [address] [address] [address] Raul Pereira WBC 8.2 103/ul Normal 4.0-11.0 [facility] Comment on above: Performed By: #### C BC #### [facility] [address] [address] [address] Raul Pereira SARA - LIPID PROFILEon 2022 CHOL-HDL RATIO NORM SEE BELOW Normal [facility] Comment on above: Result Comment: 3.3 - 4.4 LOW RISK 4.4 - 7.1 AVERAGE RISK 7.1 - 11.0 MODERATE RISK >11.0 HIGH RISK Performed By: #### D ATLIPI ####[facility] [address] [id number]. Raul Pereira Cholesterol [Mass/Vol] 178 mg/dL Normal <=200 [facility] Comment on above: Performed By: #### D ATLIPI ####[facility] [address] [id number]. Aranzapetr Randall Cholesterol in HDL [Mass/Vol] 73 mg/dL Critically high 40-60 [facility] Comment on above: Performed By: #### D ATLIPI ####[facility] [address] [place], [place] [address]Dr. Aranzapetr Randall Cholesterol in LDL [Mass/Vol] 72.0 mg/dL Normal [facility] Comment on above: Performed By: #### D ATLIPI ####[facility] [address] [place], [place] [address]Dr. Aranzapetr Randall Cholesterol.total/C holesterol in HDL [Mass ratio] 2.4 {ratio} Normal [facility] Comment on above: Performed By: #### D ATLIPI ####[facility] [address] [place], [place] [address]Dr. Aranzapetr Randall HDL NORMAL > or = 60 mg/dl - LO W CARDIOVASCULAR RISK <40 mg/dl - HIGH CARDIOVASCULAR RISK Normal [facility] Comment on above: Performed By: #### D ATLIPI ####[facility] [address] [address]Dr. Raul Pereira LDL CALC NORMAL SEE BELOW Normal [facility] Comment on above: Result Comment: <100 mg/dl OPTIMAL 100 - 129 mg/dl NEAR OR ABOVE OPTIMAL 130 - 159 mg/dl BORDERLINE HIGH 160 - 189 mg/dl HIGH >190 mg/dl VERY HIGH Performed By: #### D ATLIPI ####[facility] [address] [address]Dr. Raul Pereira Triglyceride [Mass/Vol] 165 mg/dL Critically high <=150 [facility] Comment on above: Performed By: #### D ATLIPI ####[facility] [address] [address]DrLeann Pereira VLDL CALC 33.0 mg/dL Normal [facility] Comment on above: Performed By: #### D ATLIPI ####[facility] [address] [address]DrLeann Pereira DRUG SCREEN RAPID (URINE)on 01-31-2023 AMP Positive Abnormal NEGATIVE [facility] Comment on above: Performed By: #### C BC #### [facility] [address] [address] [address] Raul Pereira BAR Negative Normal NEGATIVE [facility] Comment on above: Performed By: #### C BC #### [facility] [address] [address] [address] Raul Pereira BUP Positive Abnormal NEGATIVE [facility] Comment on above: Performed By: #### C BC #### [facility] [address] [address] [address] Raul Pereira BZO Negative Normal NEGATIVE [facility] Comment on above: Performed By: #### C BC #### [facility] [address] [address] [address] Raul Pereira RADHA Negative Normal NEGATIVE [facility] Comment on above: Performed By: #### C BC #### [facility] [address] [address] [address] Raul Pereira CUT-OFFS SEE BELOW Normal [facility] Comment on above: Result Comment: AMP (Amphetamine): 500ng/mL, BAR (Barbituates): 200 ng/mL, BZO (Benzodiazepines): 150 ng/mL, BUP (Buprenorphine): 10 ng/mL, RADHA (Cocaine): 150 ng/mL, mAMP (Methamphetamine): 500 ng/mL, MTD (Methadone): 200 ng/mL, OPI (Opiates): 100 ng/mL, OXY (Oxycodone): 100 ng/mL, PCP (Phencyclidine): 25 ng/mL, PPX (Propoxyphene): 300 ng/mL, THC (Cannabinoids): 50 ng/mL, TCA (Trycyclic Antidepressants): 300 ng/mL Performed By: #### C BC #### [facility] [address] [place] [address] Dr. Raul Pereira DRUG CUT HEADER DRUG CLASS TEST SYST EM CUT-OFF CONCENTRATIONS ARE FOLLOWS: Normal [facility] Comment on above: Performed By: #### C BC #### [facility] [address] [place] [address] Dr. Raul Pereira mAMP Negative Normal NEGATIVE [facility] Comment on above: Performed By: #### C BC #### [facility] [address] [place] [address] Dr. Raul Pereira MTD Negative Normal NEGATIVE [facility] Comment on above: Performed By: #### C BC #### [facility] [address] [place] [address] Dr. Raul Pereira OPI Negative Normal NEGATIVE [facility] Comment on above: Performed By: #### C BC #### [facility] [address] [place] [address] Dr. Raul Pereira OXY Negative Normal NEGATIVE [facility] Comment on above: Performed By: #### C BC #### [facility] [address] [address] [address] Raul Pereira PCP Negative Normal NEGATIVE [facility] Comment on above: Performed By: #### C BC #### [facility] [address] [place] [address] Dr. Raul Pereira PPX Negative Normal NEGATIVE [facility] Comment on above: Performed By: #### C BC #### [facility] [address] [place] [address] Dr. Raul Pereira TCA Positive Abnormal NEGATIVE [facility] Comment on above: Performed By: #### C BC #### [facility] [address] [place] [address] Dr. Raul Pereira THC Negative Normal NEGATIVE [facility] Comment on above: Performed By: #### C BC #### [facility] [address] [place] [address] Dr. Raul Pereira FREE THYROXINE INDEX T7on FTI 2.89 Normal 1.30-4.50 [facility] Comment on above: Performed By: #### C VDTBH #### [facility] [address] [address] [address] Raul Pereira T3U 39.0 % Normal 30.0-39.0 [facility] Comment on above: Performed By: #### C VDTBH #### [facility] [address] [address] [address] Raul Pereira T4 [Mass/Vol] 7.40 ug/dL Normal 4.80-13.90 [facility] Comment on above: Performed By: #### C VDTBH #### [facility] [address] [address] [address] Raul Pereira GLYCOHEMOGLOBIN A1Con 2022 ADA RECOMMENDATION SEE BELOW Normal [facility] Comment on above: Result Comment: ADA RECOMMENDED LIMIT 4.0 - 6.0 ADA THERAPEUTIC TARGET < 7.0 ACTION SUGGESTED > 7.0 Performed By: #### D ATA1C ####[facility] [address] [address]Dr. Raul Pereira Glucose [Mass/Vol] 108 mg/dL Normal [facility] Comment on above: Performed By: #### D ATA1C ####[facility] [address] [address]Dr. Raul Pereira HbA1c (Bld) [Mass fraction] 5.4 % Normal 4.5-6.2 [facility] Comment on above: Performed By: #### D ATA1C ####[facility] [address] [address]Dr. Raul Pereira IRONon 01-31-2023 Iron [Mass/Vol] 225.0 ug/dL Critically high 50.0-170.0 [facility] Comment on above: Performed By: #### C VDTBH #### [facility] [address] [address] [address] Raul Pereira PROF 14(COMP METB)on 023 Albumin [Mass/Vol] 3.8 g/dL Normal 3.4-5.0 [facility] Comment on above: Performed By: #### C VDTBH #### [facility] [address] [address] [address] Raul Pereira Albumin/Globulin [Mass ratio] 1.2 {ratio} Normal [facility] Comment on above: Performed By: #### C VDTBH #### [facility] [address] [address] [address] Raul Pereira ALP [Catalytic activity/Vol] 77 U/L Normal 46-116 [facility] Comment on above: Performed By: #### C VDTBH #### [facility] [address] [address] [address] Raul Pereira ALT [Catalytic activity/Vol] 19 U/L Normal 14-59 [facility] Comment on above: Performed By: #### C VDTBH #### [facility] [address] [place] [address] Dr. Raul Pereira Anion gap [Moles/Vol] 12.9 mmol/L Normal [facility] Comment on above: Performed By: #### C VDTBH #### [facility] [address] [place] [address] Dr. Raul Pereira AST [Catalytic activity/Vol] 17 U/L Normal 15-37 [facility] Comment on above: Performed By: #### C VDTBH #### [facility] [address] [place] [address] Dr. Raul Pereira Bilirubin [Mass/Vol] 0.3 mg/dL Normal 0.2-1.0 [facility] Comment on above: Performed By: #### C VDTBH #### [facility] [address] [place] [address] Dr. Raul Pereira Calcium [Mass/Vol] 8.9 mg/dL Normal 8.5-10.1 [facility] Comment on above: Performed By: #### C VDTBH #### [facility] [address] [place] [address] Dr. Raul Pereira Chloride [Moles/Vol] 101 mmol/L Normal 98-107 [facility] Comment on above: Performed By: #### C VDTBH #### [facility] [address] [address] [address] Raul Pereira CO2 [Moles/Vol] 28.5 mmol/L Normal 21.0-32.0 [facility] Comment on above: Performed By: #### C VDTBH #### [facility] [address] [place] [address] Dr. Raul Pereira Creatinine [Mass/Vol] 0.59 mg/dL Normal 0.55-1.02 [facility] Comment on above: Performed By: #### C VDTBH #### [facility] [address] [place] [address] Dr. Raul Pereira EGFR-AF BENINESE >60 Normal >=60 [facility] Comment on above: Performed By: #### C VDTBH #### [facility] [address] [place] [address] Dr. Raul Pereira EGFR-NON AF BENINESE >60 Normal >=60 [facility] Comment on above: Performed By: #### C VDTBH #### [facility] [address] [place] [address] Dr. Raul Pereira Globulin (S) [Mass/Vol] 3.1 g/dL Normal [facility] Comment on above: Performed By: #### C VDTBH #### [facility] [address] [place] [address] Dr. Raul Pereira Glucose [Mass/Vol] 84 mg/dL Normal 74-106 [facility] Comment on above: Performed By: #### C VDTBH #### [facility] [address] [place] [address] Dr. Raul Pereira Potassium [Moles/Vol] 4.4 mmol/L Normal 3.5-5.1 [facility] Comment on above: Performed By: #### C VDTBH #### [facility] [address] [place] [address] Dr. Raul Pereira Protein [Mass/Vol] 6.9 g/dL Normal 6.4-8.2 [facility] Comment on above: Performed By: #### C VDTBH #### [facility] [address] [place] [address] Dr. Raul Pereira Sodium [Moles/Vol] 138 mmol/L Normal 136-145 [facility] Comment on above: Performed By: #### C VDTBH #### [facility] [address] [place] [address] Dr. Raul Pereira Urea nitrogen [Mass/Vol] 11.0 mg/dL Normal 7.0-18.0 [facility] Comment on above: Performed By: #### C VDTBH #### [facility] [address] [place] [address] Dr. Raul Pereira Urea nitrogen/Creatinine [Mass ratio] 18.6 mg/mg Normal [facility] Comment on above: Performed By: #### C VDTBH #### [facility] [address] [place] [address] Dr. Raul Pereira TSHon 01-31-2023 TSH 2.354 uIU/mL Normal 0.358-3.740 [facility] Comment on above: Performed By: #### C VDTBH #### [facility] [address] [place] [address] Dr. Raul Pereira UA RANDOM W/MICROSCOPICon BACTERIA NONE SEEN Normal NONE SEEN [facility] Comment on above: Performed By: #### C BC #### [facility] [address] [place] [address] Dr. Raul Pereira Bilirubin Ql (U) Negative Normal NEGATIVE [facility] Comment on above: Performed By: #### C BC #### [facility] [address] [place] [address] Dr. Raul Pereira CAST NONE SEEN Normal NONE SEEN [facility] Comment on above: Performed By: #### C BC #### [facility] [address] [place] [address] Dr. Raul Pereira Clarity (U) CLEAR Normal CLEAR [facility] Comment on above: Performed By: #### C BC #### [facility] [address] [place] [address] Dr. Raul Pereira Color (U) YELLOW Normal YELLOW [facility] Comment on above: Performed By: #### C BC #### [facility] [address] [address] [address] Raul Pereira Crystals LM Nom (Urine sed) NONE SEEN Normal NONE SEEN [facility] Comment on above: Performed By: #### C BC #### [facility] [address] [place] [address] Dr. Raul Pereira Epithelial cells LM Ql (Urine sed) NONE SEEN Normal NONE SEEN /RARE [facility] Comment on above: Performed By: #### C BC #### [facility] [address] [address] [address] Raul Pereira Glucose Ql (U) Negative Normal NEGATIVE [facility] Comment on above: Performed By: #### C BC #### [facility] [address] [place] [address] Dr. Raul Pereira Hemoglobin Ql (U) Negative Normal NEGATIVE [facility] Comment on above: Performed By: #### C BC #### [facility] [address] [place] [address] Dr. Raul Pereira Ketones Ql (U) Negative Normal NEGATIVE [facility] Comment on above: Performed By: #### C BC #### [facility] [address] [place] [address] Dr. Raul Pereira LEUKOCYTES Negative Normal NEGATIVE [facility] Comment on above: Performed By: #### C BC #### [facility] [address] [place] [address] Dr. Raul Pereira MUCOUS NONE SEEN Normal NONE SEEN [facility] Comment on above: Performed By: #### C BC #### [facility] [address] [place] [address] Dr. Raul Pereira Nitrite Ql (U) Negative Normal NEGATIVE [facility] Comment on above: Performed By: #### C BC #### [facility] [address] [place] [address] Dr. Raul Pereira pH (U) 5.5 [pH] Normal 5-9 [facility] Comment on above: Performed By: #### C BC #### [facility] [address] [place] [address] Dr. Raul Pereira RBC NONE SEEN Abnormal 0-2 [facility] Comment on above: Performed By: #### C BC #### [facility] [address] [place] [address] Dr. Raul Pereira SPEC GRAVITY 1.030 Abnormal 1.005-<=1.02 5 [facility] Comment on above: Performed By: #### C BC #### [facility] [address] [place] [address] Dr. Raul Pereira UA PROTEIN Negative Normal NEGATIVE/ TRACE [facility] Comment on above: Performed By: #### C BC #### [facility] [address] [place] [address] Dr. Raul Pereira Urobilinogen Qn (U) 0.2 {Farrukh'U}/dL Normal 0.2 - 1. 0 [facility] Comment on above: Performed By: #### C BC #### [facility] [address] [place] [address] Dr. Raul Pereira WBC NONE SEEN Normal NONE SEEN The [facility] Comment on above: Performed By: #### C BC #### [facility] [address] [place] [address] Dr. Raul Pereira VITAMIN D 25 OHon 01-31-2023 VIT D 25-OH 40.8 ng/mL Normal [facility] Comment on above: Performed By: #### C VDTBH #### [facility] [address] [place] [address] Dr. Raul Pereira VIT D RANGES SEE BELOW Normal [facility] Comment on above: Result Comment: <20 ng/mL Vit D deficient 20 - <30 ng/mL Vit D insufficient 30 - 100 ng/mL Vit D sufficient >100 ng/mL Potential Toxicity Performed By: #### C VDTBH #### [facility] [address] [place] [address] Dr. Raul Pereira VC VENOUS REFLUX ALEXUS LMTon 0 01-30-2023 VC VENOUS REFLUX ALEXUS LMT Patient: RHETT MEJIA Exam Date: 01/30/2023 : 1960 Gender:F Ordering : DR NAPOLEON RAHMAN . Admission #: [id number] Family : Order #: [id number] CLICK HERE TO VIEW EXAM RADIOLOGY REPORT [...] thrombus. Compressibility: Normal. Flow: Deep venous reflux. 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 2. 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 Proximal closer with endovenous laser ablation may be beneficial followed by treatment with microfoam chemical ablation. Incompetent lower leg hospice/home health aide vein which may contribute to patient's reflux; laser ablation is recommended. Dilated, incompetent branch saphenous varicosities which would benefit from microfoam chemical ablation. 3. Consultation for endovenous ablation is recommended. Dictated by: Jessica Lipscomb M.D. on 01/31/2023 at 09:46 Approved by: Jessica Lipscomb M.D. on 01/31/2023 at 09:51 Normal [facility] CBC AUTO DIFFon 01-13-2023 BASO # 0.0 103/ul Normal 0.0-0.1 [facility] Comment on above: Performed By: #### C BC #### [facility] [address] [address] [address] Raul Pereira Basophils/100 WBC (Bld) 0.5 % Normal 0.2-2.0 [facility] Comment on above: Performed By: #### C BC #### [facility] [address] [place] [address] Dr. Raul Pereira EO # 0.1 103/ul Normal 0.0-0.7 [facility] Comment on above: Performed By: #### C BC #### [facility] [address] [place] [address] Dr. Raul Pereira Eosinophils/100 WBC (Bld) 1.7 % Normal 0.9-7.0 [facility] Comment on above: Performed By: #### C BC #### [facility] [address] [place] [address] Dr. Raul Pereira Erythrocyte distribution width (RBC) [Ratio] 18.4 % Critically high 11.0-15.0 [facility] Comment on above: Performed By: #### C BC #### [facility] [address] [place] [address] Dr. Raul Pereira Hematocrit (Bld) [Volume fraction] 33.1 % Critically low 36.0-48.0 [facility] Comment on above: Performed By: #### C BC #### [facility] [address] [place] [address] Dr. Raul Pereira Hemoglobin (Bld) [Mass/Vol] 10.4 g/dL Critically low 12.0-16.0 [facility] Comment on above: Performed By: #### C BC #### [facility] [address] [place] [address] Dr. Raul Pereira IG # 0.03 10e3/ul Normal 0.00-0.03 [facility] Comment on above: Performed By: #### C BC #### [facility] [address] [place] [address] Dr. Raul Pereira IG % 0.4 % Normal 0.0-0.5 [facility] Comment on above: Performed By: #### C BC #### [facility] [address] [place] [address] Dr. Raul Pereira LYMPH # 1.9 103/ul Normal 1.2-3.8 [facility] Comment on above: Performed By: #### C BC #### [facility] [address] [address] [address] Raul Pereira Lymphocytes/100 WBC (Bld) 25.2 % Normal 20.5-60.0 [facility] Comment on above: Performed By: #### C BC #### [facility] [address] [place] [address] Dr. Raul Pereira MANUAL DIFF REQ NO Normal [facility] Comment on above: Performed By: #### C BC #### [facility] [address] [address] [address] Raul Pereira MCH (RBC) [Entitic mass] 24.1 pg Critically low 26.7-34.0 [facility] Comment on above: Performed By: #### C BC #### [facility] [address] [place] [address] Dr. Raul Pereira MCHC (RBC) [Mass/Vol] 31.4 g/dL Normal 29.9-35.2 [facility] Comment on above: Performed By: #### C BC #### [facility] [address] [place] [address] Dr. Raul Pereira MCV (RBC) [Entitic vol] 76.6 fL Critically low 81.0-99.0 [facility] Comment on above: Performed By: #### C BC #### [facility] [address] [place] [address] Dr. Raul Pereira MONO # 0.8 103/ul Normal 0.3-0.8 [facility] Comment on above: Performed By: #### C BC #### [facility] [address] [place] [address] Dr. Raul Pereira Monocytes/100 WBC (Bld) 10.7 % Normal 1.7-12.0 [facility] Comment on above: Performed By: #### C BC #### [facility] [address] [place] [address] Dr. Raul Pereira NEUT # 4.7 103/ul Normal 1.4-6.5 [facility] Comment on above: Performed By: #### C BC #### [facility] [address] [place] [address] Dr. Raul Pereira Neutrophils/100 WBC (Bld) 61.5 % Normal 43.0-75.0 [facility] Comment on above: Performed By: #### C BC #### [facility] [address] [address] [address] Raul Pereira Platelet mean volume (Bld) [Entitic vol] 8.6 fL Critically low 9.5-13.5 [facility] Comment on above: Performed By: #### C BC #### [facility] [address] [address] [address] Raul Pereira PLT 461 103/ul Critically high 150-450 [facility] Comment on above: Performed By: #### C BC #### [facility] [address] [address] [address] Raul Pereira RBC 4.32 106/ul Normal 4.20-5.40 [facility] Comment on above: Performed By: #### C BC #### [facility] [address] [address] [address] Raul Pereira WBC 7.6 103/ul Normal 4.0-11.0 [facility] Comment on above: Performed By: #### C BC #### [facility] [address] [address] [address] Raul Pereira FREE THYROXINE INDEX T7on FTI 2.10 Normal 1.30-4.50 [facility] Comment on above: Performed By: #### T 7, CMP, TSH, LIPID ####[facility] [address] [place], [place] [address]EvDr. Raul Pereira T3U 35.0 % Normal 30.0-39.0 [facility] Comment on above: Performed By: #### T 7, CMP, TSH, LIPID ####[facility] [address] [place], [place] [address]VeDr. Raul Pereira T4 [Mass/Vol] 6.00 ug/dL Normal 4.80-13.90 [facility] Comment on above: Performed By: #### T 7, CMP, TSH, LIPID ####[facility] [address] [id number] Pereira GLYCOHEMOGLOBIN A1Con 2022 ADA RECOMMENDATION SEE BELOW Normal [facility] Comment on above: Result Comment: ADA RECOMMENDED LIMIT 4.0 - 6.0 ADA THERAPEUTIC TARGET < 7.0 ACTION SUGGESTED > 7.0 Performed By: #### C VDTBH #### [facility] [address] [address] [address] Raul Pereira Glucose [Mass/Vol] 108 mg/dL Normal [facility] Comment on above: Performed By: #### C VDTBH #### [facility] [address] [address] [address] Raul Pereira HbA1c (Bld) [Mass fraction] 5.4 % Normal 4.5-6.2 [facility] Comment on above: Performed By: #### C VDTBH #### [facility] [address] [address] [address] Raul Pereira IRON AND TIBCon 01-13-2023 % SATURATION 3.5 % Normal [facility] Comment on above: Performed By: #### F ETIBC, B12FOL, VITAD ####[facility] [address] [address]DrLeann Pereira Iron [Mass/Vol] 18.0 ug/dL Critically low 50.0-170.0 [facility] Comment on above: Performed By: #### F ETIBC, B12FOL, VITAD ####[facility] [address] [id number] Pereira TIBC DIRECT 513.0 ug/dL Critically high 250.0-450.0 [facility] Comment on above: Performed By: #### F ETIBC, B12FOL, VITAD ####[facility] [address] [address]DrLeann Pereira LIPID PROFILEon 01-13-2023 CHOL-HDL RATIO NORM SEE BELOW Normal [facility] Comment on above: Result Comment: 3.3 - 4.4 LOW RISK 4.4 - 7.1 AVERAGE RISK 7.1 - 11.0 MODERATE RISK >11.0 HIGH RISK Performed By: #### T 7, CMP, TSH, LIPID ####[facility] [address] [address]Dr. Raul Pereira Cholesterol [Mass/Vol] 190 mg/dL Normal <=200 [facility] Comment on above: Performed By: #### T 7, CMP, TSH, LIPID ####[facility] [address] [id number]. Raul Pereira Cholesterol in HDL [Mass/Vol] 71 mg/dL Critically high 40-60 The [facility] Comment on above: Performed By: #### T 7, CMP, TSH, LIPID ####[facility] [address] [address]Dr. Raul Pereira Cholesterol in LDL [Mass/Vol] 104.6 mg/dL Normal The [facility] Comment on above: Performed By: #### T 7, CMP, TSH, LIPID ####[facility] [address] [address]Dr. Raul Pereira Cholesterol.total/C holesterol in HDL [Mass ratio] 2.7 {ratio} Normal The [facility] Comment on above: Performed By: #### T 7, CMP, TSH, LIPID ####[facility] [address] [id number]. Raul Pereira HDL NORMAL > or = 60 mg/dl - LO W CARDIOVASCULAR RISK <40 mg/dl - HIGH CARDIOVASCULAR RISK Normal The [facility] Comment on above: Performed By: #### T 7, CMP, TSH, LIPID ####[facility] [address] [id number]. Raul Pereira LDL CALC NORMAL SEE BELOW Normal [facility] Comment on above: Result Comment: <100 mg/dl OPTIMAL 100 - 129 mg/dl NEAR OR ABOVE OPTIMAL 130 - 159 mg/dl BORDERLINE HIGH 160 - 189 mg/dl HIGH >190 mg/dl VERY HIGH Performed By: #### T 7, CMP, TSH, LIPID ####[facility] [address] [address]Dr. Aranzalan Pereira Triglyceride [Mass/Vol] 72 mg/dL Normal <=150 [facility] Comment on above: Performed By: #### T 7, CMP, TSH, LIPID ####[facility] [address] [address]Dr. Raul Pereira VLDL CALC 14.4 mg/dL Normal [facility] Comment on above: Performed By: #### T 7, CMP, TSH, LIPID ####[facility] [address] [address]Dr. Raul Pereira PROF 14(COMP METB)on 023 Albumin [Mass/Vol] 3.5 g/dL Normal 3.4-5.0 [facility] Comment on above: Performed By: #### T 7, CMP, TSH, LIPID ####[facility] [address] [address]Dr. Raul Pereira Albumin/Globulin [Mass ratio] 1.1 {ratio} Normal [facility] Comment on above: Performed By: #### T 7, CMP, TSH, LIPID ####[facility] [address] [address]Dr. Raul Pereira ALP [Catalytic activity/Vol] 92 U/L Normal 46-116 [facility] Comment on above: Performed By: #### T 7, CMP, TSH, LIPID ####[facility] [address] [address]Dr. Raul Pereira ALT [Catalytic activity/Vol] 17 U/L Normal 14-59 [facility] Comment on above: Performed By: #### T 7, CMP, TSH, LIPID ####[facility] [address] [address]Dr. Raul Pereira Anion gap [Moles/Vol] 10.0 mmol/L Normal [facility] Comment on above: Performed By: #### T 7, CMP, TSH, LIPID ####[facility] [address] [address]Dr. Raul Pereira AST [Catalytic activity/Vol] 17 U/L Normal 15-37 [facility] Comment on above: Performed By: #### T 7, CMP, TSH, LIPID ####[facility] [address] [id number]. Raul Pereira Bilirubin [Mass/Vol] 0.2 mg/dL Normal 0.2-1.0 The [facility] Comment on above: Performed By: #### T 7, CMP, TSH, LIPID ####[facility] [address] [id number]. Raul Pereira Calcium [Mass/Vol] 8.8 mg/dL Normal 8.5-10.1 [facility] Comment on above: Performed By: #### T 7, CMP, TSH, LIPID ####[facility] [address] [address]Dr. Raul Pereira Chloride [Moles/Vol] 101 mmol/L Normal 98-107 [facility] Comment on above: Performed By: #### T 7, CMP, TSH, LIPID ####[facility] [address] [address]Dr. Raul Pereira CO2 [Moles/Vol] 29.4 mmol/L Normal 21.0-32.0 [facility] Comment on above: Performed By: #### T 7, CMP, TSH, LIPID ####[facility] [address] [address]Dr. Raul Pereira Creatinine [Mass/Vol] 0.50 mg/dL Critically low 0.55-1.02 The [facility] Comment on above: Performed By: #### T 7, CMP, TSH, LIPID ####[facility] [address] [place], [place] [address]Dr. Raul Pereira EGFR-AF BENINESE >60 Normal >=60 [facility] Comment on above: Performed By: #### T 7, CMP, TSH, LIPID ####[facility] [address] [address]Dr. Raul Pereira EGFR-NON AF BENINESE >60 Normal >=60 [facility] Comment on above: Performed By: #### T 7, CMP, TSH, LIPID ####[facility] [address] [address]Dr. Raul Pereira Globulin (S) [Mass/Vol] 3.2 g/dL Normal [facility] Comment on above: Performed By: #### T 7, CMP, TSH, LIPID ####[facility] [address] [address]Dr. Raul Pereira Glucose [Mass/Vol] 88 mg/dL Normal 74-106 [facility] Comment on above: Performed By: #### T 7, CMP, TSH, LIPID ####[facility] [address] [address]Dr. Raul Pereira Potassium [Moles/Vol] 4.4 mmol/L Normal 3.5-5.1 [facility] Comment on above: Performed By: #### T 7, CMP, TSH, LIPID ####[facility] [address] [address]Dr. Raul Pereira Protein [Mass/Vol] 6.7 g/dL Normal 6.4-8.2 [facility] Comment on above: Performed By: #### T 7, CMP, TSH, LIPID ####[facility] [address] [address]Dr. Raul Pereira Sodium [Moles/Vol] 136 mmol/L Normal 136-145 [facility] Comment on above: Performed By: #### T 7, CMP, TSH, LIPID ####[facility] [id number] [address]Dr. Raul Pereira Urea nitrogen [Mass/Vol] 12.0 mg/dL Normal 7.0-18.0 [facility] Comment on above: Performed By: #### T 7, CMP, TSH, LIPID ####[facility] [id number] [address]Dr. Raul Pereira Urea nitrogen/Creatinine [Mass ratio] 24.0 mg/mg Normal [facility] Comment on above: Performed By: #### T 7, CMP, TSH, LIPID ####[facility] [address] [address]Dr. Raul Pereira TSHon 01-13-2023 TSH 1.623 uIU/mL Normal 0.358-3.740 [facility] Comment on above: Performed By: #### T 7, CMP, TSH, LIPID ####[facility] [address] [address]Dr. Raul Pereira VIT B12 AND FOLATEon 023 Cobalamin (Vitamin B12) [Mass/Vol] 872.0 pg/mL Normal 193.0-986.0 [facility] Comment on above: Performed By: #### F ETIBC, B12FOL, VITAD ####[facility] [address] [address]Dr. Raul Pereira FOLATE 21.20 ng/mL Normal 8.60-58.90 [facility] Comment on above: Performed By: #### F ETIBC, B12FOL, VITAD ####[facility] [address] [address]Dr. Raul Pereira VITAMIN D 25 OHon 01-13-2023 VIT D 25-OH 40.6 ng/mL Normal [facility] Comment on above: Performed By: #### F ETIBC, B12FOL, VITAD ####[facility] [address] [address]Dr. Raul Pereira VIT D RANGES SEE BELOW Normal [facility] Comment on above: Result Comment: <20 ng/mL Vit D deficient 20 - <30 ng/mL Vit D insufficient 30 - 100 ng/mL Vit D sufficient >100 ng/mL Potential Toxicity Performed By: #### F ETIBC, B12FOL, VITAD ####[facility] [address] [address]Dr. Raul Pereira CBC AUTO DIFFon 01-10-2023 BASO # 0.1 103/ul Normal 0.0-0.1 [facility] Comment on above: Performed By: #### C VDTBH #### [facility] [address] [address] [address] Raul Pereira Basophils/100 WBC (Bld) 0.6 % Normal 0.2-2.0 [facility] Comment on above: Performed By: #### C VDTBH #### [facility] [address] [address] [address] Raul Pereira EO # 0.1 103/ul Normal 0.0-0.7 [facility] Comment on above: Performed By: #### C VDTBH #### [facility] [address] [place] [address] Dr. Raul Pereira Eosinophils/100 WBC (Bld) 1.3 % Normal 0.9-7.0 [facility] Comment on above: Performed By: #### C VDTBH #### [facility] [address] [place] [address] Dr. Raul Pereira Erythrocyte distribution width (RBC) [Ratio] 18.4 % Critically high 11.0-15.0 [facility] Comment on above: Performed By: #### C VDTBH #### [facility] [address] [place] [address] Dr. Raul Pereira Hematocrit (Bld) [Volume fraction] 37.8 % Normal 36.0-48.0 [facility] Comment on above: Performed By: #### C VDTBH #### [facility] [address] [place] [address] Dr. Raul Pereira Hemoglobin (Bld) [Mass/Vol] 11.6 g/dL Critically low 12.0-16.0 [facility] Comment on above: Performed By: #### C VDTBH #### [facility] [address] [place] [address] Dr. Raul Pereira IG # 0.02 10e3/ul Normal 0.00-0.03 [facility] Comment on above: Performed By: #### C VDTBH #### [facility] [address] [place] [address] Dr. Raul Pereira IG % 0.3 % Normal 0.0-0.5 [facility] Comment on above: Performed By: #### C VDTBH #### [facility] [address] [place] [address] Dr. Raul Pereira LYMPH # 1.7 103/ul Normal 1.2-3.8 [facility] Comment on above: Performed By: #### C VDTBH #### [facility] [address] [place] [address] Dr. Raul Pereira Lymphocytes/100 WBC (Bld) 21.0 % Normal 20.5-60.0 [facility] Comment on above: Performed By: #### C VDTBH #### [facility] [address] [place] [address] Dr. Raul Pereria MANUAL DIFF REQ NO Normal [facility] Comment on above: Performed By: #### C VDTBH #### [facility] [address] [place] [address] Dr. Raul Pereira MCH (RBC) [Entitic mass] 24.1 pg Critically low 26.7-34.0 [facility] Comment on above: Performed By: #### C VDTBH #### [facility] [address] [place] [address] Dr. Raul Pereira MCHC (RBC) [Mass/Vol] 30.7 g/dL Normal 29.9-35.2 [facility] Comment on above: Performed By: #### C VDTBH #### [facility] [address] [place] [address] Dr. Raul Pereira MCV (RBC) [Entitic vol] 78.6 fL Critically low 81.0-99.0 [facility] Comment on above: Performed By: #### C VDTBH #### [facility] [address] [place] [address] Dr. Raul Pereira MONO # 0.6 103/ul Normal 0.3-0.8 [facility] Comment on above: Performed By: #### C VDTBH #### [facility] [address] [place] [address] Dr. Raul Pereira Monocytes/100 WBC (Bld) 7.5 % Normal 1.7-12.0 [facility] Comment on above: Performed By: #### C VDTBH #### [facility] [address] [place] [address] Dr. Raul Pereira NEUT # 5.4 103/ul Normal 1.4-6.5 [facility] Comment on above: Performed By: #### C VDTBH #### [facility] [address] [address] [address] Raul Pereira Neutrophils/100 WBC (Bld) 69.3 % Normal 43.0-75.0 [facility] Comment on above: Performed By: #### C VDTBH #### [facility] [address] [address] [address] Raul Pereira Platelet mean volume (Bld) [Entitic vol] 9.0 fL Critically low 9.5-13.5 [facility] Comment on above: Performed By: #### C VDTBH #### [facility] [address] [address] [address] Raul Pereira PLT 516 103/ul Critically high 150-450 [facility] Comment on above: Performed By: #### C VDTBH #### [facility] [address] [place] [address] Dr. Raul Pereira RBC 4.81 106/ul Normal 4.20-5.40 [facility] Comment on above: Performed By: #### C VDTBH #### [facility] [address] [address] [address] Raul Pereira WBC 7.8 103/ul Normal 4.0-11.0 [facility] Comment on above: Performed By: #### C VDTBH #### [facility] [address] [address] [address] Raul Pereira CULTURE BLOODon 01-10-2023 Microscopic examination of blood, culture Culture Observations: NO GROWTH AT 5 DAYS. Normal [facility] Comment on above: Performed By: #### B [id number] #### [facility] [address] [address] [address] Raul Pereira Microscopic examination of blood, culture Culture Observations: NO GROWTH AT 5 DAYS. Normal [facility] Comment on above: Performed By: #### B LDCX1 ####[facility] [address] [address]Dr. Raul Pereira PROF 14(COMP METB)on 023 Albumin [Mass/Vol] 3.7 g/dL Normal 3.4-5.0 [facility] Comment on above: Performed By: #### C BC #### [facility] [address] [place] [address] Dr. Raul Pereira Albumin/Globulin [Mass ratio] 0.9 {ratio} Normal [facility] Comment on above: Performed By: #### C BC #### [facility] [address] [address] [address] Raul Pereira ALP [Catalytic activity/Vol] 105 U/L Normal 46-116 [facility] Comment on above: Performed By: #### C BC #### [facility] [address] [place] [address] Dr. Raul Pereira ALT [Catalytic activity/Vol] 18 U/L Normal 14-59 [facility] Comment on above: Performed By: #### C BC #### [facility] [address] [place] [address] Dr. Raul Pereira Anion gap [Moles/Vol] 10.8 mmol/L Normal [facility] Comment on above: Performed By: #### C BC #### [facility] [address] [place] [address] Dr. Raul Pereira AST [Catalytic activity/Vol] 21 U/L Normal 15-37 [facility] Comment on above: Performed By: #### C BC #### [facility] [address] [place] [address] Dr. Raul Pereira Bilirubin [Mass/Vol] 0.3 mg/dL Normal 0.2-1.0 [facility] Comment on above: Performed By: #### C BC #### [facility] [address] [place] [address] Dr. Raul Pereira Calcium [Mass/Vol] 9.1 mg/dL Normal 8.5-10.1 [facility] Comment on above: Performed By: #### C BC #### [facility] [address] [place] [address] Dr. Raul Pereira Chloride [Moles/Vol] 100 mmol/L Normal 98-107 [facility] Comment on above: Performed By: #### C BC #### [facility] [address] [address] [address] Raul Pereira CO2 [Moles/Vol] 30.8 mmol/L Normal 21.0-32.0 [facility] Comment on above: Performed By: #### C BC #### [facility] [address] [place] [address] Dr. Raul Pereira Creatinine [Mass/Vol] 0.58 mg/dL Normal 0.55-1.02 [facility] Comment on above: Performed By: #### C BC #### [facility] [address] [place] [address] Dr. Raul Pereira EGFR-AF BENINESE >60 Normal >=60 [facility] Comment on above: Performed By: #### C BC #### [facility] [address] [place] [address] Dr. Raul Pereira EGFR-NON AF BENINESE >60 Normal >=60 [facility] Comment on above: Performed By: #### C BC #### [facility] [address] [place] [address] Dr. Raul Pereira Globulin (S) [Mass/Vol] 4.1 g/dL Normal [facility] Comment on above: Performed By: #### C BC #### [facility] [address] [place] [address] Dr. Raul Pereira Glucose [Mass/Vol] 86 mg/dL Normal 74-106 [facility] Comment on above: Performed By: #### C BC #### [facility] [address] [place] [address] Dr. Raul Pereira Potassium [Moles/Vol] 4.6 mmol/L Normal 3.5-5.1 [facility] Comment on above: Performed By: #### C BC #### [facility] [address] [place] [address] Dr. Raul Pereira Protein [Mass/Vol] 7.8 g/dL Normal 6.4-8.2 [facility] Comment on above: Performed By: #### C BC #### [facility] [address] [place] [address] Dr. Raul Pereira Sodium [Moles/Vol] 137 mmol/L Normal 136-145 [facility] Comment on above: Performed By: #### C BC #### [facility] [address] [address] [address] Raul Pereira Urea nitrogen [Mass/Vol] 9.0 mg/dL Normal 7.0-18.0 [facility] Comment on above: Performed By: #### C BC #### [facility] [address] [address] [address] Raul Pereira Urea nitrogen/Creatinine [Mass ratio] 15.5 mg/mg Normal [facility] Comment on above: Performed By: #### C BC #### [facility] [address] [address] [address] Raul Pereira PREMA DOP LEG RTon [...] JESSICA LIPSCOMB Date: 2023-01-10 10:43 Normal [facility] Covid-19 PCR (CVDTB)on 11-18 SARS-CoV-2 (COVID-19) RNA IMELDA+probe Ql (Unsp spec) Not detected Normal NOT DETECTED [facility] Comment on above: Result Comment: This test is not yet approved or cleared by the [place] FDA. When there are no FDA-approved or cleared tests available, and other criteria are met, FDA can make tests available under an emergency access mechanism called an Emergency Use Authorization (EUA). The EUA for this test is supported by the [place] of Health and Human Service's (HHS's) declaration [...] SARS-CoV-2. Performed By: #### C VDTB #### [facility] [address] [place] [address] Dr. Raul Pereira CALCIUMon 12-03-2022 Calcium [Mass/Vol] 9.7 mg/dL Normal 8.5-10.1 [facility] Comment on above: Performed By: #### C VDTBH #### [facility] [address] [place] [address] Dr. Raul Pereira CREATININEon 12-03-2022 Creatinine [Mass/Vol] 0.53 mg/dL Critically low 0.55-1.02 [facility] Comment on above: Performed By: #### C BC #### [facility] [address] [place] [address] Dr. Raul Pereira EGFR-AF BENINESE >60 Normal >=60 [facility] Comment on above: Performed By: #### C BC #### [facility] [address] [place] [address] Dr. Raul Pereira EGFR-NON AF BENINESE >60 Normal >=60 [facility] Comment on above: Performed By: #### C BC #### [facility] [address] [place] [address] Dr. Raul Pereira Office Visiton 08-27-2022 Follow-up visit [id number] Lex Mejia rrmonica L 1960 F Date Provider Department Center 08/27/2022 Nella-MICAELA GUPTA [facility] SURG Second Fl No family history on file Level of Service:59497 [place] POSTOP FOLLOW UP VISIT RELATED TO ORIGINAL PX Reason for Visit and Comments: Post-op [483] - Rhett is here today for a post op visit, s/p 08/16/[address] [facility] HISTOLOGY - TISSUE EXAMon 09 -30-2022 LAB AP CASE REPORT Normal [facility] Comment on above: Order Comment: Pre-o p diagnosis:Calculus of gallbladder without cholecystitis without obstruction [K80.20] Result Comment: Surg ical Pathology Case: [id number] Authorizing Provider: Micaela Gupta MD Collected: 08/16/2022 0842 Ordering Location: [facility] Main Operating Room Received: 08/16/2022 1001 Pathologist: Maricruz Warren MD Specimen: Gallbladder, GALLBLADDER Performed By: #### L [id number] ####[facility] [place] [address] LAB AP CLINICAL INFORMATION Normal [facility] Comment on above: Order Comment: Pre-o p diagnosis:Calculus of gallbladder without cholecystitis without obstruction [K80.20] Result Comment: Pre- op diagnosis: Calculus of gallbladder without cholecystitis without obstruction [K80.20] Performed By: #### L [id number] ####[facility] [place] [address] LAB AP GROSS DESCRIPTION A. Gallbladder. Normal [facility] Comment on above: Order Comment: Pre-o [...] 0.1 to 0.2 cm in maximum thickness. High [employer] Warper Tender sections submitted as follows: Cassette 1: Cystic duct resection margin and neck Cassette 2: Body and fundus Ankit Koroma, Pathologists' Inspector Returned Materials Performed By: #### L [id number] ####[facility] [place] [address] LAB AP MICROSCOPIC DESCRIPTION Microscopic examination performed [facility] Comment on above: Order Comment: Pre-o p diagnosis:Calculus of gallbladder without cholecystitis without obstruction [K80.20] Performed By: #### L [id number] ####[facility] [place] [address] LAB AP REPORT FINAL DIAGNOSIS NARRATIVE Normal [facility] Comment on above: Order Comment: Pre-o p diagnosis:Calculus of gallbladder without cholecystitis without obstruction [K80.20] Result Comment: Gall bladder, cholecystectomy: - Cholelithiasis and cholesterolosis. Performed By: #### L [id number] ####[facility] [place] [address] HPon 08-16-2022 HP ----- ----- Attestation signed by Micaela Gupta MD at 08/16/2022 7:34 AM Attending Physician Statement I have discussed the case, including pertinent history and exam findings with Dr. Del Angel, surgical supplies sterilizer and have personally seen the patient. I agree with the assessment, plan and orders as documented. [phone] pager [phone] phone ----- [facility] General Surgery HISTORY & PHYSICAL [...] History: Diagnosis Date Anxiety Arthritis Chronic bronchitis (CMS/[facility]) Depression DVT (deep venous thrombosis) (CMS/[facility]) Gall bladder disease GERD (gastroesophageal [...] Component Value (more content not included)... Normal [facility] NURSNOTEon 08-16-2022 NURSNOTE Stable. Pain minimal . DC criteria met. IV dc'd and patient getting dressed. 1155 Stable for discharge. Normal [facility] NURSNOTE DC instructions revi ewed with patient and Granddaughter, allowed time for questions, copy given. Normal [facility] NURSNOTE Report rec'd and car e assumed. No assessment changes. Pain minimal. Normal [facility] NURSNOTE 0920 Recovery called. [facility] OPNOTE CHOLECYSTECTOMY, LAPAROSCOPIC Operative Note Date: 08/16/2022 Location: [facility] OR Name: Rhett Mejia, : 1960, Diagnosis Pre-op Diagnosis * Calculus of gallbladder without cholecystitis without obstruction [K80.20] * History of gastric bypass [Z98.84] Post-op Diagnosis * Calculus of gallbladder without cholecystitis without obstruction [K80.20] * History of gastric bypass [Z98.84] Procedures CHOLECYSTECTOMY, LAPAROSCOPIC 92089 - [place] LAPS SURG CHOLECYSTECTOMY W/CHOLANGIOGRAPHY Surgeons [...] EXAM Micaela Gupta MD 08/16/22 0842 No [id number] Description: GALLBLADDER Staff: Applications Support Lead: Zeny De La Cruz RN Scrub Person: [...] PACU - hemodynamically stable. Condition: stable Normal [facility] POCT GLUCOSE METER UNSOLICIT ED RESULTSon 08-16-2022 Glucose [Mass/Vol] 88 mg/dL Normal 70-105 [facility] Comment on above: Result Comment: epaw low Performed By: #### L [id number] #### [facility] [address] [place] [address] POCT SARS-COV-2 PCRon 2021 POC SARS-COV-2 ANTIGEN Negative Normal Negative [facility] Comment on above: Result Comment: ID [...] Certificate of Accreditation. Performed By: #### L [id number] ####[facility] [place] [address] Orders Onlyon 08-14-2022 Orders Only [id number] Lex Mejia rrmonica L 1960 F Date Provider Department Center 08/14/2022 [id number], HISTORICAL [facility] C No family history on file Normal [facility] [id number] 08-13-2022 [id number] NPO after [place] Must have a automobile drivers to take you home and someone to stay for 24 hours after surgery. No jewelry. Hold the meds we spoke about: NSAIDS Take the meds we spoke about w/a sip of water DOS: GAPAPENTIN, NEXIUM, INHALER, CYMBALTA Bring insurance card and ID. LABS AND COVID TO BE DONE IN [place]. Normal [facility] CBC AUTO DIFFon 08-13-2022 BASO # 0.0 103/ul Normal 0.0-0.1 [facility] Comment on above: Performed By: #### C BC #### [facility] [address] [address] [address] Raul Pereira Basophils/100 WBC (Bld) 0.4 % Normal 0.2-2.0 [facility] Comment on above: Performed By: #### C BC #### [facility] [address] [address] [address] Raul Pereira EO # 0.1 103/ul Normal 0.0-0.7 [facility] Comment on above: Performed By: #### C BC #### [facility] [address] [place] [address] Dr. Raul Pereira Eosinophils/100 WBC (Bld) 1.2 % Normal 0.9-7.0 [facility] Comment on above: Performed By: #### C BC #### [facility] [address] [place] [address] Dr. Raul Pereira Erythrocyte distribution width (RBC) [Ratio] 18.6 % Critically high 11.0-15.0 [facility] Comment on above: Performed By: #### C BC #### [facility] [address] [place] [address] Dr. Raul Pereira Hematocrit (Bld) [Volume fraction] 39.1 % Normal 36.0-48.0 [facility] Comment on above: Performed By: #### C BC #### [facility] [address] [place] [address] Dr. Raul Pereira Hemoglobin (Bld) [Mass/Vol] 12.5 g/dL Normal 12.0-16.0 [facility] Comment on above: Performed By: #### C BC #### [facility] [address] [place] [address] Dr. Raul Pereira IG # 0.03 10e3/ul Normal 0.00-0.03 [facility] Comment on above: Performed By: #### C BC #### [facility] [address] [place] [address] Dr. Raul Pereira IG % 0.4 % Normal 0.0-0.5 [facility] Comment on above: Performed By: #### C BC #### [facility] [address] [place] [address] Dr. Raul Pereira LYMPH # 2.0 103/ul Normal 1.2-3.8 [facility] Comment on above: Performed By: #### C BC #### [facility] [address] [place] [address] Dr. Raul Pereira Lymphocytes/100 WBC (Bld) 27.2 % Normal 20.5-60.0 [facility] Comment on above: Performed By: #### C BC #### [facility] [address] [place] [address] Dr. Raul Pereira MANUAL DIFF REQ NO Normal [facility] Comment on above: Performed By: #### C BC #### [facility] [address] [place] [address] Dr. Raul Pereira MCH (RBC) [Entitic mass] 27.2 pg Normal 26.7-34.0 [facility] Comment on above: Performed By: #### C BC #### [facility] [address] [place] [address] Dr. Raul Pereira MCHC (RBC) [Mass/Vol] 32.0 g/dL Normal 29.9-35.2 [facility] Comment on above: Performed By: #### C BC #### [facility] [address] [place] [address] Dr. Raul Pereira MCV (RBC) [Entitic vol] 85.2 fL Normal 81.0-99.0 [facility] Comment on above: Performed By: #### C BC #### [facility] [address] [place] [address] Dr. Raul Pereira MONO # 0.7 103/ul Normal 0.3-0.8 [facility] Comment on above: Performed By: #### C BC #### [facility] [address] [place] [address] Dr. Raul Pereira Monocytes/100 WBC (Bld) 9.3 % Normal 1.7-12.0 [facility] Comment on above: Performed By: #### C BC #### [facility] [address] [place] [address] Dr. Raul Pereira NEUT # 4.4 103/ul Normal 1.4-6.5 [facility] Comment on above: Performed By: #### C BC #### [facility] [address] [address] [address] Raul Pereira Neutrophils/100 WBC (Bld) 61.5 % Normal 43.0-75.0 [facility] Comment on above: Performed By: #### C BC #### [facility] [address] [place] [address] Dr. Raul Pereira Platelet mean volume (Bld) [Entitic vol] 8.7 fL Critically low 9.5-13.5 [facility] Comment on above: Performed By: #### C BC #### [facility] [address] [place] [address] Dr. Raul Pereira PLT 387 103/ul Normal 150-450 [facility] Comment on above: Performed By: #### C BC #### [facility] [address] [place] [address] Dr. Raul Pereira RBC 4.59 106/ul Normal 4.20-5.40 The [facility] Comment on above: Performed By: #### C BC #### [facility] [address] [place] [address] Dr. Raul Pereira WBC 7.2 103/ul Normal 4.0-11.0 [facility] Comment on above: Performed By: #### C BC #### [facility] [address] [place] [address] Dr. Raul Pereira Covid-19 PCR (CVDTB)on 07-19 SARS-CoV-2 (COVID-19) RNA IMELDA+probe Ql (Unsp spec) Not detected Normal NOT DETECTED [facility] Comment on above: Result Comment: This test is not yet approved or cleared by the [place] FDA. When there are no FDA-approved or cleared tests available, and other criteria are met, FDA can make tests available under an emergency access mechanism called an Emergency Use Authorization (EUA). The EUA for this test is supported by the [place] of Health and Human Service's (HHS's) declaration [...] SARS-CoV-2. Performed By: #### C VDTB #### [facility] [address] [place] [address] Dr. Raul Pereira PROF CHEM 8 (BAS METB)on Anion gap [Moles/Vol] 11.5 mmol/L Normal [facility] Comment on above: Performed By: #### C BC #### [facility] [address] [place] [address] Dr. Raul Pereira Calcium [Mass/Vol] 9.5 mg/dL Normal 8.5-10.1 [facility] Comment on above: Performed By: #### C BC #### [facility] [address] [place] [address] Dr. Raul Pereira Chloride [Moles/Vol] 101 mmol/L Normal 98-107 [facility] Comment on above: Performed By: #### C BC #### [facility] [address] [place] [address] Dr. Raul Pereira CO2 [Moles/Vol] 29.6 mmol/L Normal 21.0-32.0 [facility] Comment on above: Performed By: #### C BC #### [facility] [address] [place] [address] Dr. Raul Pereira Creatinine [Mass/Vol] 0.65 mg/dL Normal 0.55-1.02 [facility] Comment on above: Performed By: #### C BC #### [facility] [address] [place] [address] Dr. Raul Pereira EGFR-AF BENINESE >60 Normal >=60 [facility] Comment on above: Performed By: #### C BC #### [facility] [address] [address] [address] Raul Pereira EGFR-NON AF BENINESE >60 Normal >=60 [facility] Comment on above: Performed By: #### C BC #### [facility] [id number] Raul Pereira Glucose [Mass/Vol] 104 mg/dL Normal 74-106 [facility] Comment on above: Performed By: #### C BC #### [facility] [address] [address] [address] Raul Pereira Potassium [Moles/Vol] 4.1 mmol/L Normal 3.5-5.1 [facility] Comment on above: Performed By: #### C BC #### [facility] [address] [address] [address] Raul Pereira Sodium [Moles/Vol] 138 mmol/L Normal 136-145 [facility] Comment on above: Performed By: #### C BC #### [facility] [address] [address] [address] Raul Pereira Urea nitrogen [Mass/Vol] 11.0 mg/dL Normal 7.0-18.0 [facility] Comment on above: Performed By: #### C BC #### [facility] [address] [address] [address] Raul Pereira Urea nitrogen/Creatinine [Mass ratio] 16.9 mg/mg Normal [facility] Comment on above: Performed By: #### C BC #### [facility] [id number] Raul Pereira Office Visiton 08-06-2022 Follow-up visit [id number] Lex Mejia 1960 F Date Provider Department Center 08/06/2022 Nella-MICAELA GUPTA [facility] SURG Second Fl No family history on file Level of Service:15972 MT OFFICE/OUTPATIENT ESTABLISHED LOW MDM 20-29 MIN Reason for Visit and Comments: Consult [484] - Rhett is here for a gallbladder consult. Rhett also c/o swelling in right leg with pain in calf. Normal [facility] PROTIME-INRon 08-06-2022 INR IN PPP BY COAGULATION ASSAY 0.89 Low 0.90-1.10 [facility] Comment on above: Result Comment: ACCC [...] 1995;108:[id number]. Performed By: #### L [id number] #### [facility] [address] [place] [address] PROTHROMBIN TIME (PT) IN PPP BY COAGULATION ASSAY 12.1 Seconds Low 12.3-14.8 [facility] Comment on above: Performed By: #### L [id number] #### [facility] [address] [place] [address] CT ABD/PELVIS WO CONon 07-24 CT ABD/PELVIS [...] by: JESSICA LIPSCOMB Date: 2022-07-24 17:21 Normal [facility] HEPATOBILIARY SCAN W EFon 07-18-2022 SD HEPATOBILIARY [...] by: MEAGHAN SKINNER Date: 2022-07-18 10:22 Normal [facility] CBC AUTO DIFFon 07-13-2022 BASO # 0.0 103/ul Normal 0.0-0.1 [facility] Comment on above: Performed By: #### C BC #### [facility] [address] [place] [address] Dr. Raul Pereira Basophils/100 WBC (Bld) 0.5 % Normal 0.2-2.0 [facility] Comment on above: Performed By: #### C BC #### [facility] [address] [place] [address] Dr. Raul Pereira EO # 0.1 103/ul Normal 0.0-0.7 [facility] Comment on above: Performed By: #### C BC #### [facility] [address] [place] [address] Dr. Raul Pereira Eosinophils/100 WBC (Bld) 0.9 % Normal 0.9-7.0 [facility] Comment on above: Performed By: #### C BC #### [facility] [address] [place] [address] Dr. Raul Pereira Erythrocyte distribution width (RBC) [Ratio] 20.2 % Critically high 11.0-15.0 [facility] Comment on above: Performed By: #### C BC #### [facility] [address] [place] [address] Dr. Raul Pereira Hematocrit (Bld) [Volume fraction] 41.1 % Normal 36.0-48.0 [facility] Comment on above: Performed By: #### C BC #### [facility] [address] [place] [address] Dr. Raul Pereira Hemoglobin (Bld) [Mass/Vol] 13.2 g/dL Normal 12.0-16.0 [facility] Comment on above: Performed By: #### C BC #### [facility] [address] [place] [address] Dr. Raul Pereira IG # 0.05 10e3/ul Critically high 0.00-0.03 [facility] Comment on above: Performed By: #### C BC #### [facility] [address] [place] [address] Dr. Raul Pereira IG % 0.6 % Critically high 0.0-0.5 [facility] Comment on above: Performed By: #### C BC #### [facility] [address] [place] [address] Dr. Raul Pereira LYMPH # 1.4 103/ul Normal 1.2-3.8 [facility] Comment on above: Performed By: #### C BC #### [facility] [address] [place] [address] Dr. Raul Pereira Lymphocytes/100 WBC (Bld) 17.3 % Critically low 20.5-60.0 [facility] Comment on above: Performed By: #### C BC #### [facility] [address] [place] [address] Dr. Raul Pereira MANUAL DIFF REQ NO Normal [facility] Comment on above: Performed By: #### C BC #### [facility] [address] [place] [address] Dr. Raul Pereira MCH (RBC) [Entitic mass] 27.3 pg Normal 26.7-34.0 [facility] Comment on above: Performed By: #### C BC #### [facility] [address] [place] [address] Dr. Raul Pereira MCHC (RBC) [Mass/Vol] 32.1 g/dL Normal 29.9-35.2 [facility] Comment on above: Performed By: #### C BC #### [facility] [address] [place] [address] Dr. Raul Pereira MCV (RBC) [Entitic vol] 84.9 fL Normal 81.0-99.0 [facility] Comment on above: Performed By: #### C BC #### [facility] [address] [place] [address] Dr. Raul Pereira MONO # 0.8 103/ul Normal 0.3-0.8 [facility] Comment on above: Performed By: #### C BC #### [facility] [address] [place] [address] Dr. Raul Pereira Monocytes/100 WBC (Bld) 10.0 % Normal 1.7-12.0 [facility] Comment on above: Performed By: #### C BC #### [facility] [address] [place] [address] Dr. Raul Pereira NEUT # 5.8 103/ul Normal 1.4-6.5 [facility] Comment on above: Performed By: #### C BC #### [facility] [address] [place] [address] Dr. Raul Pereira Neutrophils/100 WBC (Bld) 70.7 % Normal 43.0-75.0 [facility] Comment on above: Performed By: #### C BC #### [facility] [address] [place] [address] Dr. Raul Pereira Platelet mean volume (Bld) [Entitic vol] 9.1 fL Critically low 9.5-13.5 [facility] Comment on above: Performed By: #### C BC #### [facility] [address] [place] [address] Dr. Raul Pereira PLT 358 103/ul Normal 150-450 [facility] Comment on above: Performed By: #### C BC #### [facility] [address] [place] [address] Dr. Raul Pereira RBC 4.84 106/ul Normal 4.20-5.40 [facility] Comment on above: Performed By: #### C BC #### [facility] [address] [place] [address] Dr. Raul Pereira WBC 8.1 103/ul Normal 4.0-11.0 [facility] Comment on above: Performed By: #### C BC #### [facility] [address] [place] [address] Dr. Raul Pereira LIPASEon 07-13-2022 Lipase [Catalytic activity/Vol] 47.0 U/L Critically low 73.0-393.0 [facility] Comment on above: Performed By: #### C BC #### [facility] [address] [place] [address] Dr. Raul Pereira PROF 14(COMP METB)on 022 Albumin [Mass/Vol] 3.6 g/dL Normal 3.4-5.0 [facility] Comment on above: Performed By: #### C BC #### [facility] [address] [place] [address] Dr. Raul Pereira Albumin/Globulin [Mass ratio] 1.0 {ratio} Normal [facility] Comment on above: Performed By: #### C BC #### [facility] [address] [place] [address] Dr. Raul Pereira ALP [Catalytic activity/Vol] 88 U/L Normal 46-116 [facility] Comment on above: Performed By: #### C BC #### [facility] [address] [place] [address] Dr. Raul Pereira ALT [Catalytic activity/Vol] 16 U/L Normal 14-59 [facility] Comment on above: Performed By: #### C BC #### [facility] [address] [place] [address] Dr. Raul Pereira Anion gap [Moles/Vol] 13.2 mmol/L Normal [facility] Comment on above: Performed By: #### C BC #### [facility] [address] [place] [address] Dr. Raul Pereira AST [Catalytic activity/Vol] 15 U/L Normal 15-37 [facility] Comment on above: Performed By: #### C BC #### [facility] [address] [place] [address] Dr. Raul Pereira Bilirubin [Mass/Vol] 0.2 mg/dL Normal 0.2-1.0 [facility] Comment on above: Performed By: #### C BC #### [facility] [address] [place] [address] Dr. Raul Pereira Calcium [Mass/Vol] 9.5 mg/dL Normal 8.5-10.1 [facility] Comment on above: Performed By: #### C BC #### [facility] [address] [place] [address] Dr. Raul Pereira Chloride [Moles/Vol] 100 mmol/L Normal 98-107 [facility] Comment on above: Performed By: #### C BC #### [facility] [address] [place] [address] Dr. Raul Pereira CO2 [Moles/Vol] 28.0 mmol/L Normal 21.0-32.0 [facility] Comment on above: Performed By: #### C BC #### [facility] [address] [place] [address] Dr. Raul Pereira Creatinine [Mass/Vol] 0.78 mg/dL Normal 0.55-1.02 [facility] Comment on above: Performed By: #### C BC #### [facility] [address] [place] [address] Dr. Raul Pereira EGFR-AF BENINESE >60 Normal >=60 [facility] Comment on above: Performed By: #### C BC #### [facility] [address] [place] [address] Dr. aRul Pereira EGFR-NON AF BENINESE >60 Normal >=60 [facility] Comment on above: Performed By: #### C BC #### [facility] [address] [place] [address] Dr. Raul Pereira Globulin (S) [Mass/Vol] 3.6 g/dL Normal [facility] Comment on above: Performed By: #### C BC #### [facility] [address] [place] [address] Dr. Raul Pereira Glucose [Mass/Vol] 86 mg/dL Normal 74-106 [facility] Comment on above: Performed By: #### C BC #### [facility] [address] [place] [address] Dr. Raul Pereira Potassium [Moles/Vol] 4.2 mmol/L Normal 3.5-5.1 [facility] Comment on above: Performed By: #### C BC #### [facility] [address] [place] [address] Dr. Raul Pereira Protein [Mass/Vol] 7.2 g/dL Normal 6.4-8.2 [facility] Comment on above: Performed By: #### C BC #### [facility] [address] [place], [place] [address] Dr. Raul Pereira Sodium [Moles/Vol] 137 mmol/L Normal 136-145 [facility] Comment on above: Performed By: #### C BC #### [facility] [address] [place] [address] Dr. Raul Pereira Urea nitrogen [Mass/Vol] 11.0 mg/dL Normal 7.0-18.0 [facility] Comment on above: Performed By: #### C BC #### [facility] [address] [place] [address] Dr. Raul Pereira Urea nitrogen/Creatinine [Mass ratio] 14.1 mg/mg Normal [facility] Comment on above: Performed By: #### C BC #### [facility] [address] [place], [place] [address] Dr. Raul Pereira US SINGLE QUAD RT [facility] US SINGLE QUAD RT [facility] EXAM: US SINGLE QUAD RT [...] MICAH ROSAS Date: 2022-07-13 16:33 Normal [facility] Covid-19 PCR ([facility]on 06-17 SARS-CoV-2 (COVID-19) RNA IMELDA+probe Ql (Unsp spec) Not detected Normal NOT DETECTED [facility] Comment on above: Result Comment: This test is not yet approved or cleared by the [place] FDA. When there are no FDA-approved or cleared tests available, and other criteria are met, FDA can make tests available under an emergency access mechanism called an Emergency Use Authorization (EUA). The EUA for this test is supported by the [place] [employer] of Health and Human Service's (HHS's) declaration [...] consistent with SARS-CoV-2. Performed By: #### C [facility] #### [facility] [address] [place] [address] Dr. Raul Pereira Endoscopy Reporton 8 Endoscopy [id number] Date: 02/24/2018 Room #: Z0 Date of : 1960 PROCEDURE NOTEATTENDING: Xin Beasley M.D.PROCEDURE PERFORMED: EGD.DRAWER IN HAND: Dr. Noland.SEDATION:1. Versed 10 mg.2. Fentanyl 250 [...] 02/24/2018/09:53 Kiara/Ruddy Noland M.D.Date Trans: 02/24/2018 12:13 P/Aditya_JN:[id number] cc: Napoleon Rahman M.D. [address] [facility] [address] [facility] Endoscopy Report MR#: [id number] Pt. Name: Rhett Mejia Surgery Date: 02/24/2018 Room #: Z0 Date of : 1960 PROCEDURE NOTEATTENDING: Xin Beasley M.D.PROCEDURE PERFORMED: Colonoscopy and polypectomy.DRAWER IN HAND: Ruddy oNland M.D.SEDATION: Versed 10 mg and fentanyl 250 [...] 02/24/2018/09:57 Kiara/Ruddy Noland M.D.Date Trans: 02/24/2018 10:12 A/Aditya_JN:[id number] cc: Napoleon Rahman M.D. [address] [facility] Kiara [facility] [id number] [facility] POC GLUCOSE LABon 02-24-2018 Glucose mass conc 87 mg/dL Normal 70-[address] [facility] Comment on above: Performed By: #### 8 [id number] ####[address] Vital Signs Date Time Vital Sign Value Performing Clinician Facility NEGATED: Highlighted row BMI (Body Mass Index) [facility] NEGATED: Highlighted row Body Temperature [facility] NEGATED: Highlighted row Body weight [facility] NEGATED: Highlighted row BP Diastolic [facility] NEGATED: Highlighted row BP Systolic [facility] NEGATED: Highlighted row Height Gene [facility] NEGATED: Highlighted row Pulse (Heart Rate) [facility] NEGATED: Highlighted row Pulse Oximetry [facility] NEGATED: Highlighted row Respiratory Rate [facility] Encounters Encounter Date Encounter Type Care Provider Facility Start: 08-16-2024 End: 08-16-2024 ambulatory Monica Malagon MD Facility:[facility] Start: 08-02-2024 End: 08-02-2024 ambulatory Monica Malagon MD Facility: [facility] Start: 07-30-2024 ambulatory Cristian Johnson acility:[facility] Start: 06-21-2024 End: 06-21-2024 ambulatory Monica Malagon MD Facility:[facility] Start: 09-22-2023 End: 09-22-2023 ambulatory Monica Malagon MD Facility:[facility] Start: 04-08-[address] NAPOLEON RAHMAN . Facili ty:[facility] Start: 03-21-2023 End: 03-22-2023 ambulatory EVIE VIDAL . Facility:[facility] Start: 03-05-2023 End: 03-06-2023 ambulatory AMIRA OCAMPO . Facility:[facility] Start: 02-20-2023 End: 02-21-[address] NAPOLEON RHAMAN . Facility:[facility] Start: 02-18-2023 End: 02-19-[address] JESSICA LIPSCOMB Facility:[facility] Start: 02-13-2023 End: 02-14-[address] NAPOLEON RAHMAN . Facility:[facility] Start: 02-12-2023 End: 02-13-[address] NAPOLEON RAHMAN . Facility:[facility] Start: 02-08-2023 Encounter for genera l adult medical examination without abnormal findings DR NAPOLEON RAHMAN . [facility] Start: 01-31-2023 End: 02-01-2023 Encounter for general [...] Start: 01-10-2023 End: 01-11-[address] NAPOLEON RAHMNA . Facility:[facility] Start: 12-17-2022 End: 12-17-[address] BETHEL LITTLE . Facility:[facility] Start: 12-16-2022 Encounter for preprocedural laboratory examination DR BETHEL LITTLE . [facility] Start: 12-13-2022 End: 12-14-[address] BETHEL [...] . Facility:[facility] Start: 08-27-2022 End: 08-27-2022 ambulatory [facility] Start: 08-16-2022 End: 08-16-2022 ambulatory [facility] Start: 08-15-2022 Encounter for other preprocedural examination DR MICAELA GUPTA [facility] Start: 08-15-2022 Encounter for preprocedural laboratory examination DR MICAELA GUPTA [facility] Start: 08-13-2022 End: 08-14-[address] MICAELA GUPTA Facility:[facility] Start: 08-13-2022 End: 08-14-2022 Encounter for other preprocedural examination DR MICAELA GUPTA Facility:[facility] Start: 08-06-2022 End: 08-07-2022 ambulatory [facility] Start: 08-06-2022 End: 08-06-2022 ambulatory [facility] Start: 08-06-2022 ambulatory [facility] Start: 07-24-2022 End: 07-25-[address] [...] End: 05-16-[address] BETHEL LITTLE . Facility: Start: 05-06-[address] NAPOLEON RAHMAN . Facili ty: Start: 02-24-2018 End: 02-25-2018 Ambulatory XIN BEASLEY Facility:[facility] Start: 10-19-2014 End: 10-19-2014 Patient encounter procedure [facility] Start: 12-22-2013 End: 12-22-2013 Departed Referred [facility] Start: 10-12-2001 End: 10-12-2001 Patient encounter procedure [facility] Start: 09-01-2001 End: 09-01-2001 Patient encounter procedure [facility] Start: 08-26-2001 End: 08-26-2001 Patient encounter procedure [facility] Start: 03-21-1999 End: 03-28-1999 Evaluation and management of inpatient [facility] Start: 09-07-1997 End: 09-07-1997 Admission to day surgery [facility] Start: 07-21-1997 End: 07-21-1997 Emergency department patient visit [facility] Procedures Date Procedure Procedure Detail Performing Clinician Start: 02-24-2018 Colsc flx w/removal lesion by hot bx forceps XIN BEASLEY Payers Date Payer Category Payer Unknown 2015 Medicare 1960 Self-pay 1960 Self-pay [id number] 1960 Unknown [id number] 1960 Unknown [id number] 2.16.84 0.1.923652.3.579.2.593 1960 Unknown [id number] 2.16.84 0.1.411325.3.579.2.593 1960 Unknown [id number] 2.16.84 0.1.218293.3.579.2.593 1960 Unknown [id number] 2.16.84 0.1.063638.3.579.2.593 1959 Unknown [id number] 2.16.84 0.1.244792.3.579.2.593 1959 Unknown [id number] 2.16.84 0.1.736207.3.579.2.593 1959 Unknown [id number] 2.16.84 0.1.440476.3.579.2.593 1959 Unknown [id number] 2.16.84 0.1.933089.3.579.2.593 1959 Unknown [id number] 2.16.84 0.1.318949.3.579.2.593 1959 Unknown [id number] 2.16.84 0.1.985460.3.579.2.593 1959 Unknown [id number] 2.16.84 0.1.811702.3.579.2.593 1959 Unknown [id number] 2.16.84 0.1.019745.3.579.2.593 1959 Unknown [id number] 2.16.84 0.1.815613.3.579.2.593 1959 Unknown [id number] 2.16.84 0.1.832731.3.579.2.593 1959 Unknown [id number] 2.16.84 0.1.979189.3.579.2.593 1959 Unknown [id number] 2.16.84 0.1.212802.3.579.2.593 1959 Unknown [id number] 2.16.84 0.1.931267.3.579.2.593 1959 Unknown [id number] 2.16.84 0.1.916881.3.579.2.593 1959 Unknown [id number] 2.16.84 0.1.598567.3.579.2.593 1959 Unknown [id number] 2.16.84 0.1.957433.3.579.2.593 1959 Unknown [id number] 2.16.84 0.1.141404.3.579.2.593 1959 Unknown [id number] 2.16.84 0.1.204946.3.579.2.593 1959 Unknown [id number] 2.16.84 0.1.536001.3.579.2.593 1959 Unknown [id number] 2.16.84 0.1.855084.3.579.2.593 1959 Unknown [id number] 2.16.84 0.1.572459.3.579.2.593 1959 Unknown [id number] 2.16.84 0.1.822842.3.579.2.593 1959 Unknown [id number] 2.16.84 0.1.914737.3.579.2.593 1959 Unknown [id number] 2.16.84 0.1.296372.3.579.2.593 1959 Unknown [id number] 2.16.84 0.1.453690.3.579.2.593 1959 Unknown [id number] 2.16. 840.1.663832.3.579.2.196 1959 Unknown [id number] 2.16. 840.1.170083.3.579.2.196 1959 Unknown [id number] 2.16. 840.1.102244.3.579.2.196 1960 Unknown [id number] 2.16. 840.1.477328.3.579.2.196 Medicare [id number] [id number] Unknown [id number] Unknown [id number] 2.16.84 0.1.648119.3.579.2.593 Unknown [id number] 2.16.8 40.1.752190.3.579.2.531 Clinical Notes 05-15-2022 to 02-18-2023 Note Date [...] our patients to inform us about any [id number] medications or herbal remedies/nutritional supplements/alternative remedies. 2. [...] options with their primary care provider. [facility] 01-16-2023 Note CONSULTATION CONSULTATION DATE: 01/16/2023 HISTORY: [...] up in the clinic post epidural. [facility] 12-04-2022 Note CONSULTATION CONSULTATION DATE: 12/04/2022 HISTORY [...] in the office after the procedure. [facility] 11-15-2022 Note CONSULTATION PROCEDURE DATE: 11/15/2022 PREOPERATIVE [...] the office following her RFA procedure. [facility] 11-15-2022 Note CONSULTATION CONSULTATION DATE: 11/15/2022 HISTORY [...] measures such as heat and stretches. [facility] 08-29-2022 Note CONSULTATION PROCEDURE DATE: 08/29/2022 PREOPERATIVE [...] pattern. Patient tolerated the procedure well. [facility] 08-29-2022 Note CONSULTATION CONSULTATION DATE: 08/29/2022 HISTORY [...] up in the office post procedure. [facility] 08-29-2022 Note CONSULTATION CONSULTATION DATE: 08/29/2022 ADDENDUM: Addendum to peer plan: We will repeat radiofrequency ablation starting on the right side and subsequently moving to the left at T11, T12 and L1, L2. [facility] 08-27-2022 Note Subjective Patient ID: Rhett Mejia [...] past 36 hour(s)). No follow-ups on file. [facility] 08-16-2022 Note Patient: Rhett rousseau Procedure Summary Date: 08/16/22 Room / Location: [facility] OPERATING ROOM 01 / [facility] Operating Room Anesthesia Start: 734 Anesthesia [...] no known notable events for this encounter. [facility] 08-16-2022 Note Airway Date/Time: 08/16/2022 7:44 AM Urgency: elective Airway not difficult General Information and Staff Patient location during procedure: OR Anesthesiologist: Cassi Velez MD Resident/LABORER POULTRY HATCHERY/CAA: LEONARD Canales Performed: resident/LABORER POULTRY HATCHERY/CAA Indications and Patient Condition Indications for airway [...] before airway management; Dentures to Circ RN [facility] 08-16-2022 Note Patient: Rhett rousseau Procedure Information Date/Time: 08/16/22729 Procedure: CHOLECYSTECTOMY, LAPAROSCOPIC, WITH INTRAOPERATIVE CHOLANGIOGRAM, WITH LAPAROTOMY IF INDICATED REQ BRADEREJE OR MANDO HUERTA MAUK, WOODSON - C-ARM AVAIL STAFF REQUESTS: LENIN DE LA CRUZ Location: [facility] OPERATING ROOM 01 / [facility] Operating Room Surgeons: Micaela Gupta MD [...] Plan discussed with CAA. Additional Equipment Requests [facility] 08-06-2022 Note Subjective Patient ID: Rhett [...] past 36 hour(s)). No follow-ups on file. [facility] 08-06-2022 Note Subjective Patient ID: Rhett [...] past 36 hour(s)). No follow-ups on file. [facility] 06-12-2022 Note CONSULTATION PROCEDURE DATE: 06/12/2022 [...] The patient tolerated the procedure well. [facility] 06-12-2022 Note CONSULTATION CONSULTATION DATE: 06/12/2022 HISTORY [...] agrees to the plan of care. [facility] 05-15-2022 Note CONSULTATION CONSULTATION DATE: 05/15/2022 HISTORY [...] agrees with the plan of care. [facility] Signed and Approved by: RUBY RAMIREZ . 05/16/2022 13:38:00 [facility] 05-15-2022 Note CONSULTATION PROCEDURE DATE: 05/15/2022 [...] be followed up in the office. [facility] Signed and Approved by: RUBY RAMIREZ . 05/16/2022 13:38:00 [facility] Summary Purpose Family History No Family History Records FoundNo Family History Records FoundNo Family History Records FoundNo Family History Records FoundNo Family History Records Found Advance Directives No Advanced Directives Records FoundNo Advanced Directives Records FoundNo Advanced Directives Records FoundNo Advanced Directives Records FoundNo Advanced Directives Records Found Additional Source Comments INFORMATION SOURCE (unrecogn ized section and content) DATE CREATED AUTHOR 05/07/2018 [facility] DATE CREATED AUTHOR AUTHOR'S ORGANIZ ATION 09/26/2022 [facility] DATE CREATED AUTHOR AUTHOR'S ORGANIZ ATION 03/28/2023 [facility] DATE CREATED AUTHOR AUTHOR'S ORGANIZ ATION 08/01/[address] [facility] DATE CREATED AUTHOR AUTHOR'S ORGANIZ ATION 08/20/[address] [facility] FOR RECORDS PERTAINING TO PATIENTS [...] BE BASED ON THE PRIMARY CLINICAL RECORDS. [facility] [employer] provides no warranty or guarantee of the accuracy or completeness of information in this document.
--- NOTE | 2024-08-25 11:08 | PM.CN ---
Consult Note: HPI Data of Consult Patient: known to practice within the last 3 years Requesting Physician: Jennie Rowe NP Primary Care Provider: Ke Rahman MD Consult Narrative Reason for consult: f/u Narrative: Vida Richard a pleasant 63 year old female presents for evaluation and management of chronic neck mid back and low back pain. Patients PCP manages most of her medications, we prescribe flexeril 5-10mg TID PRN which she utilizes with benefit. patient has completed a provider guided HEP greater than 6 weeks without benefit, continues to engage in HEP as tolerated. recently underwent bilateral L3-4 TFESI with 80-90% improvement in lumbar stenosis with NC symptoms per pt. Shes noticing increase in cervical radiculopathy, weakness of hands, and neck pain. hx of stenosis and DDD of cervical spine at multiple levels. Patients pain today 7/10 constant increasing with sleep, movement. mild improvement from ice and current medication regimen. patient would like to discuss cervical KARI as previous cervical KARI provided >50% improvement for more than 1 year. cc:: CC: Jennie Rowe NP Review of Systems ROS Status of ROS 10 or more systems reviewed and unremarkable except as noted in history and below Musculoskeletal Reports: back pain and neck pain PFSH [facility] Medical History (Updated 08/25/24 @ 11:11 by Jennie Rowe NP) Upper back pain ?M54.9 - Dorsalgia, unspecified (ICD-10) Back pain ?M54.9 - Dorsalgia, unspecified (ICD-10) Neck pain ?M54.2 - Cervicalgia (ICD-10) Suicidal behavior ?R45.89 - Other symptoms and signs involving emotional state (ICD-10) Panic attack ?F41.0 - Panic disorder [episodic paroxysmal anxiety] (ICD-10) Depressed ?F32.A - Depression, unspecified (ICD-10) Anxiety ?F41.9 - Anxiety disorder, unspecified (ICD-10) Hearing deficit ?H91.90 - Unspecified hearing loss, unspecified ear (ICD-10) Acid reflux ?K21.9 - Gastro-esophageal reflux disease without esophagitis (ICD-10) Left thyroid nodule ?E04.1 - Nontoxic single thyroid nodule (ICD-10) Smoker ?F17.200 - Nicotine dependence, unspecified, uncomplicated (ICD-10) Asthmatic bronchitis ?J45.909 - Unspecified asthma, uncomplicated (ICD-10) Surgical History History of cholecystectomy ?Z90.49 - Acquired absence of other specified parts of digestive tract (ICD-10) H/O discectomy ?Z98.890 - Other specified postprocedural states (ICD-10) H/O: hysterectomy ?Z90.710 - Acquired absence of both cervix and uterus (ICD-10) Gastric bypass status for obesity ?Z98.84 - Bariatric surgery status (ICD-10) Meds Home Medications and Allergies Home Medications ?Medication ?Instructions ?Recorded ?Confirmed ?Type buprenorphine 10 mcg/hour weekly 1 patch transdermal QWEEK 05/01/23 08/16/24 History transdermal patch (Butrans) calcium carbonate 600 mg-vitamin cap PO .QD 05/01/23 History D3 5 mcg (200 unit) capsule (Calcium 600 + D(3)) cholecalciferol (vitamin D3) 10 10 mcg PO DAILY 05/01/23 08/16/24 History mcg (400 unit) capsule cyclobenzaprine 5 mg tablet 5 mg PO TID 05/01/23 08/16/24 History dextroamphetamine-amphetamine 20 20 mg PO .QD 05/01/23 08/16/24 History mg tablet diclofenac sodium 1 % topical gel 4 g topical QID 05/01/23 08/16/24 History diclofenac sodium 75 mg 75 mg PO .QD 05/01/23 08/16/24 History tablet,delayed release duloxetine 60 mg capsule,delayed 120 mg PO DAILY 05/01/23 08/16/24 History release (Cymbalta) esomeprazole magnesium 20 mg 40 mg PO DAILY 05/01/23 08/16/24 History capsule,delayed release (Nexium) gabapentin 600 mg tablet 600 mg PO TID 05/01/23 08/16/24 History lidocaine 5 % topical ointment 1 applic 05/01/23 History vitamin B complex (Complex B-100 1 tab PO DAILY 05/01/23 08/16/24 History tablet,extended release) ziprasidone HCl 20 mg capsule 20 mg PO .HS 05/01/23 08/16/24 History albuterol sulfate 2.5 mg/3 mL 2.5 mg 06/21/24 History (0.083 %) solution for nebulization Allergies Allergy/AdvReac Type Severity Reaction Status Date / Time iodine Allergy unknown Verified 08/02/24 07:50 latex Allergy Unknown Verified 08/02/24 07:50 soybean Allergy Unknown Verified 08/02/24 07:50 Sulfa (Sulfonamide Allergy unknown Verified 08/02/24 07:50 Antibiotics) IV DYE Allergy Unknown Uncoded 08/02/24 07:50 Exam Constitutional Documenting provider has reviewed patient's vital signs: yes Common normals: no apparent distress, oriented x3, healthy appearing, alert and well nourished General appearance: cooperative HENMT Common normals: normocephalic, hearing grossly normal bilaterally and moist oral mucous membranes Head and scalp: normocephalic Eye Common normals: PERRL Pupil: PERRL Neck & C-Spine Common normals: full ROM General: normal visual inspection Cervical spine: pain with cervical ROM and cervical spine tenderness; no paracervical muscle spasm and no trapezius muscle tenderness Other: positive spurlings decreased sensation to bilateral C5,6,7 strength 4/5 in BUE Chest Common normals: inspection of chest normal Respiratory Common normals: normal respiratory effort, no retractions and no use of accessory muscles Back & Pelvis Thoracic spine/upper back: ROM limited, pain with ROM and thoracic spinal tenderness Lumbar spine/lower back: ROM limited, pain with ROM and straight leg raise negative bilaterally Other: positive facet loading, increased pain over T10-12 facet joints negative radiculopathy strength 5/5 in BLE Extremity Common normals: normal to inspection and full ROM Neuro Common normals: oriented x3, CN's II-XII intact bilaterally, moves all extremities, no focal motor deficits, no sensory deficits noted and deep tendon reflexes 2+ bilaterally Sensorium/orientation: alert Gait (neuro): antalgic Motor exam: strength 5/5 throughout and no movement abnormalities noted Psych Common normals: mental status grossly normal, thought process normal, cooperative, affect normal, speech normal and activity/motor behavior normal Speech: normal speech Thought process: normal thought process Results Additional Findings Additional findings: If on a controlled substance or opioids, I have checked an [place] report on this patient and there are no aberrancies noted in the prescribing history.??If on a controlled substance or opioid a drug screen was completed and reviewed within the last year, and if there has not been a drug screen completed we ordered one today to monitor higher risk, state monitored pain medication use. As part of providing excellent, safe, comprehensive care, the following was completed at our patient's visit: 1. A medication reconciliation and review to ensure accurate knowledge of current/active medications, including asking our patients to inform us about any [id number] medications or herbal remedies/nutritional supplements/alternative remedies. 2. A review to specifically ensure our patients have had annual screening for screening for depression, screening for tobacco use, and screening for unhealthy alcohol use. For concerning screenings had a discussion with the patient, provided patient education, and recommended follow-up with primary care provider when appropriate. If patient noted with a risk of falling, they received education on strength, gait, and balance training to prevent future risk of falling. Assessment and Plan Assessment and Plan (1) Cervical spinal stenosis: (2) Cervical radiculopathy: (3) Lumbar stenosis with neurogenic claudication: (4) Thoracic spondylosis: (5) Lumbar spondylosis: (6) Myofascial pain: Plan proceed with bilateral C5-6 TFESI under fluoroscopy with 10mg po valium 30-60mins prior to procedure, risks vs benefits reviewed continue current medications continue HEP as tolerated f/u 2 weeks after KARI
== END 2024-08-25 10:46 | disposition home or self-care (01) ==
LOC: PM 10:46
PROVIDERS: PCP Family Medicine; Visit Provider Nurse Practitioner
DX: M48.02 Spinal stenosis, cervical region (principal); M54.12 Radiculopathy, cervical region; M48.062 Spinal stenosis, lumbar region with neurogenic claudication; M47.814 Spondylosis without myelopathy or radiculopathy, thoracic region; M47.816 Spondylosis without myelopathy or radiculopathy, lumbar region; M79.18 Myalgia, other site
CPT/HCPCS: G0463

== ENCOUNTER 2024-09-06 08:06 | Day surgery (SDC) | payer MEDICARE, OTHER, SELFPAY ==
--- OUTSIDE RECORDS SUMMARY | 2024-09-06 08:14 | XMS_ITS | CCD ---
Author Organization [facility] Care Team Providers Care Director Furniture Name Role Phone NAWRAS, ALI T Unavailable Unavailable NAWRAS, ALI T Unavailable Unavailable HOKelvin, NAPOLEON Unavailable Unavailable HOELSY WarrenLAS Unavailable Unavailable CT Unavailable Unavailable NAWRAS, ALI T Unavailable Unavailable [...] Unavailable HOY ., DR BENDER Attending Unavailable NORCROSS, DR MEAGHAN Stanton [employer] Unavailable HOY ., [...] Unavailable HOY ., DR BENDER Attending Unavailable NORCROSS, DR MEAGHAN Stanton [employer] Unavailable RAMIREZ ., [...] [facility] Unavailable Giedraitis , Andcandi Vytautjohanny Attending Unavailable Giedraitis MD, Andrius Vytautjohanny Attending Unavailable Giedraitis MD, Andrius Vytautas Attending Unavailable Giedraitis MD, Andrius Vytautas Attending Unavailable Allergies Allergy Classification Reported Allergen(s) Allergy Type Date of Onset Reaction(s) Facility (1 source) Contrast media; Translations: [IVP DYE] Propensity to adverse reactions (disorder) 1 [facility] Repository (2 sources) corn extract; Translations: [CORN] Drug Allergy 1 [facility] Repository (6 sources) iodine; Translations: [IODINE] Drug Allergy 9 Edema [facility] Repository (6 sources) Latex; Translations: [LATEX] Drug allergy (disorder) 9 Anaphylaxis [facility] Repository (1 source) loratadine Drug Allergy 1 [facility] Repository (2 sources) loratadine; Translations: [LORATADINE] Drug Allergy 3 [facility] Repository (1 source) montelukast Drug Allergy 1 [facility] Repository (3 sources) papaveretum; Translations: [SOYBEAN] Drug Allergy 1 [facility] Repository (2 sources) Penicillins; Translations: [PENICILLINS] Drug allergy (disorder) 1 [facility] Repository (1 source) povidone-iodine Drug Allergy 9 [facility] Repository (6 sources) propofol; Translations: [PROPOFOL] Drug Allergy 2 Anaphylaxis [facility] Repository (2 sources) wheat preparation; Translations: [WHEAT] Drug Allergy 2 [facility] Repository (5 sources) Iodinated Contrast Media; Translations: [IODINATED CONTRAST MEDIA] Allergy to Substance 4 Anaphylaxis [facility] Repository (1 source) montelukast; Translations: [MONTELUKAST] Drug Allergy 4 [facility] Repository (1 source) oxybutynin; Translations: [DITROPAN] Drug Allergy 2 [facility] Repository (1 source) Povidone-Iodine; Translations: [POVIDONE-IODINE] Drug Allergy 4 [facility] Repository (1 source) Soy protein; Translations: [SOY] Propensity to adverse reactions to drug (disorder) 2 [facility] Repository (1 source) Iodine (And Iodine Containting Drugs) Drug allergy (disorder) 4 [facility] Repository (1 source) Penicillin Drug Allergy [facility] Repository (1 source) Sulfonamides (Antibiotic) Drug allergy (disorder) 2 [facility] Repository (1 source) Iodine Drug [...] 07-15-2022 Episodic Other aftercare (1 source) Other senior care (current) drug therapy; 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 Raul Pereira Basophils/100 WBC (Bld) 0.6 % Normal 0.2-2.0 [facility] Comment on above: Performed By: #### C BC #### [facility] [address] [place] [address] Dr. Raul Pereira EO # 0.2 103/ul Normal 0.0-0.7 [facility] Comment on above: Performed By: #### C BC #### [facility] [address] [place] [address] Dr. Raul Pereira Eosinophils/100 WBC (Bld) 2.3 % Normal 0.9-7.0 [facility] Comment on above: Performed By: #### C BC #### [facility] [address] [place] [address] Dr. Raul Pereira Hematocrit (Bld) [Volume fraction] 39.5 % Normal 36.0-48.0 [facility] Comment on above: Performed By: #### C BC #### [facility] [address] [place] [address] Dr. Raul Pereira Hemoglobin (Bld) [Mass/Vol] 12.3 g/dL Normal 12.0-16.0 [facility] Comment on above: Performed By: #### C BC #### [facility] [address] [place] [address] Dr. Raul Pereira IG # 0.03 10e3/ul Normal 0.00-0.03 [facility] Comment on above: Performed By: #### C BC #### [facility] [address] [place] [address] Dr. Raul Pereira IG % 0.4 % Normal 0.0-0.5 [facility] Comment on above: Performed By: #### C BC #### [facility] [address] [address] [address] Raul Pereira LYMPH # 2.1 103/ul Normal 1.2-3.8 [facility] Comment on above: Performed By: #### C BC #### [facility] [address] [place] [address] Dr. Raul Pereira Lymphocytes/100 WBC (Bld) 24.8 % Normal 20.5-60.0 [facility] Comment on above: Performed By: #### C BC #### [facility] [address] [place] [address] Dr. Raul Pereira MANUAL DIFF REQ NO Normal [facility] Comment on above: Performed By: #### C BC #### [facility] [address] [place] [address] Dr. Raul Pereira MCH (RBC) [Entitic mass] 26.3 pg Critically low 26.7-34.0 [facility] Comment on above: Performed By: #### C BC #### [facility] [address] [place] [address] Dr. Raul Pereira MCHC (RBC) [Mass/Vol] 31.1 g/dL Normal 29.9-35.2 [facility] Comment on above: Performed By: #### C BC #### [facility] [address] [place] [address] Dr. Raul Pereira MCV (RBC) [Entitic vol] 84.4 fL Normal 81.0-99.0 [facility] Comment on above: Performed By: #### C BC #### [facility] [address] [place] [address] Dr. Raul Pereira MONO # 1.0 103/ul Critically high 0.3-0.8 [facility] Comment on above: Performed By: #### C BC #### [facility] [address] [place] [address] Dr. Raul Pereira Monocytes/100 WBC (Bld) 11.8 % Normal 1.7-12.0 [facility] Comment on above: Performed By: #### C BC #### [facility] [address] [place] [address] Dr. Raul Pereira NEUT # 5.0 103/ul Normal 1.4-6.5 [facility] Comment on above: Performed By: #### C BC #### [facility] [address] [place] [address] Dr. Raul Pereira Neutrophils/100 WBC (Bld) 60.1 % Normal 43.0-75.0 [facility] Comment on above: Performed By: #### C BC #### [facility] [address] [place] [address] Dr. Raul Pereira Platelet mean volume (Bld) [Entitic vol] 8.8 fL Critically low 9.5-13.5 [facility] Comment on above: Performed By: #### C BC #### [facility] [address] [place] [address] Dr. Raul Pereira PLT 418 103/ul Normal 150-450 [facility] Comment on above: Performed By: #### C BC #### [facility] [address] [place] [address] Dr. Raul Pereira RBC 4.68 106/ul Normal 4.20-5.40 [facility] Comment on above: Performed By: #### C BC #### [facility] [address] [place] [address] Dr. Raul Pereira WBC 8.3 103/ul Normal 4.0-11.0 [facility] Comment on above: Performed By: #### C BC #### [facility] [address] [place] [address] Dr. Raul Pereira FERRITINon 02-20-2023 Ferritin [Mass/Vol] 15.0 ng/mL Normal 8.0-252.0 [facility] Comment on above: Performed By: #### C #### [facility] [address] [address] [address] Raul Pereira XR CSPINE 2_3 VIEWSon [...] by: JESSICA LIPSCOMB Date: 2023-02-19 06:42 [address] [facility] [address] LUNG CANCER SCREENINGon 0 02-13-2023 [...] by: MEAGHAN SKINNER Date: 2023-02-13 11:02 Normal [facility] ECHOCARDIO M/2D COMPLETEon 0 02-13-2023 ECHOCARDIO M/2D COMPLETE Patient: RHETT MEJIA Exam Date: 02/13/2023 : 1960 Gender:F Ordering : DR NAPOLEON RAHMAN . Admission #: [id number] Family : Order #: [id number] CLICK HERE TO VIEW EXAM ECHOCARDIOGRAM REPORT [...] Marion M.D. on 02/13/2023 at 18:54 Normal [facility] CREATININEon 02-12-2023 Creatinine [Mass/Vol] 0.76 mg/dL Normal 0.55-1.02 [facility] Comment on above: Performed By: #### C BC #### [facility] [address] [address] [address] Raul Pereira EGFR-AF ZIMBABWEAN >60 Normal >=60 [facility] Comment on above: Performed By: #### C BC #### [facility] [address] [place], [place] [address] Dr. Raul Pereira EGFR-NON AF ZIMBABWEAN >60 Normal >=60 [facility] Comment on above: Performed By: #### C BC #### [facility] [address] [address] [address] Raul Pereira MRI BRAIN WO W [...] JESSICA LIPSCOMB Date: 2023-02-12 12:37 Normal [facility] US CAROTID ART BILon 023 US CAROTID [...] by: JESSICA LIPSCOMB Date: 2023-02-12 14:03 Normal [facility] COMPLIANCE DRUG SCREENon PDF . Normal [facility] Comment on above: Performed By: #### C BC #### [facility] [address] [address] [address] Raul Pereira Summary FINAL Normal [facility] Comment on above: Result Comment: == [...] == Performed By: #### C BC #### [facility] [address] [place] [address] Dr. Raul Pereira CULTURE URINEon 02-02-2023 CULTURE [...] Trimethoprim/Sulfamethoxa zole <=20 S F Normal [facility] Comment on above: Performed By: #### U RCX #### [facility] [address] [place] [address] Dr. Raul Pereira AMMONIAon 01-31-2023 Ammonia (P) [Moles/Vol] 13 umol/L Normal [facility] Comment on above: Performed By: #### A MM ####[facility] [address] [address]Dr. Raul Pereira CBC AUTO DIFFon 01-31-2023 BASO # 0.1 103/ul Normal 0.0-0.1 [facility] Comment on above: Performed By: #### C BC #### [facility] [address] [address] [address] Raul Pereira Basophils/100 WBC (Bld) 0.6 % Normal 0.2-2.0 [facility] Comment on above: Performed By: #### C BC #### [facility] [address] [place] [address] Dr. Raul Pereira EO # 0.1 103/ul Normal 0.0-0.7 [facility] Comment on above: Performed By: #### C BC #### [facility] [address] [place] [address] Dr. Raul Pereira Eosinophils/100 WBC (Bld) 1.7 % Normal 0.9-7.0 [facility] Comment on above: Performed By: #### C BC #### [facility] [address] [place] [address] Dr. Raul Pereira Erythrocyte distribution width (RBC) [Ratio] 25.9 % Critically high 11.0-15.0 [facility] Comment on above: Result Comment: 2+ a niso Performed By: #### C BC #### [facility] [address] [place] [address] Dr. Raul Pereira Hematocrit (Bld) [Volume fraction] 42.4 % Normal 36.0-48.0 [facility] Comment on above: Performed By: #### C BC #### [facility] [address] [place] [address] Dr. Raul Pereira Hemoglobin (Bld) [Mass/Vol] 13.1 g/dL Normal 12.0-16.0 [facility] Comment on above: Performed By: #### C BC #### [facility] [address] [place] [address] Dr. Raul Pereira IG # 0.02 10e3/ul Normal 0.00-0.03 [facility] Comment on above: Performed By: #### C BC #### [facility] [address] [place] [address] Dr. Raul Pereira IG % 0.2 % Normal 0.0-0.5 [facility] Comment on above: Performed By: #### C BC #### [facility] [address] [place] [address] Dr. Raul Pereira LYMPH # 2.0 103/ul Normal 1.2-3.8 [facility] Comment on above: Performed By: #### C BC #### [facility] [address] [place] [address] Dr. Raul Pereira Lymphocytes/100 WBC (Bld) 24.8 % Normal 20.5-60.0 [facility] Comment on above: Performed By: #### C BC #### [facility] [address] [place] [address] Dr. Raul Pereira MANUAL DIFF REQ NO Normal [facility] Comment on above: Performed By: #### C BC #### [facility] [address] [place] [address] Dr. Raul Pereira MCH (RBC) [Entitic mass] 25.3 pg Critically low 26.7-34.0 [facility] Comment on above: Performed By: #### C BC #### [facility] [address] [place] [address] Dr. Raul Pereira MCHC (RBC) [Mass/Vol] 30.9 g/dL Normal 29.9-35.2 [facility] Comment on above: Performed By: #### C BC #### [facility] [address] [place] [address] Dr. Raul Pereira MCV (RBC) [Entitic vol] 82.0 fL Normal 81.0-99.0 [facility] Comment on above: Performed By: #### C BC #### [facility] [address] [place] [address] Dr. Raul Pereira MONO # 0.7 103/ul Normal 0.3-0.8 [facility] Comment on above: Performed By: #### C BC #### [facility] [address] [address] [address] Raul Pereira Monocytes/100 WBC (Bld) 8.8 % Normal 1.7-12.0 [facility] Comment on above: Performed By: #### C BC #### [facility] [address] [address] [address] Raul Pereira NEUT # 5.2 103/ul Normal 1.4-6.5 [facility] Comment on above: Performed By: #### C BC #### [facility] [address] [address] [address] Raul Pereira Neutrophils/100 WBC (Bld) 63.9 % Normal 43.0-75.0 [facility] Comment on above: Performed By: #### C BC #### [facility] [address] [address] [address] Raul Pereira Platelet mean volume (Bld) [Entitic vol] 9.2 fL Critically low 9.5-13.5 [facility] Comment on above: Performed By: #### C BC #### [facility] [address] [address] [address] Raul Pereira PLT 334 103/ul Normal 150-450 [facility] Comment on above: Performed By: #### C BC #### [facility] [address] [address] [address] Raul Pereira RBC 5.17 106/ul Normal 4.20-5.40 [facility] Comment on above: Performed By: #### C BC #### [facility] [address] [address] [address] Raul Pereira WBC 8.2 103/ul Normal 4.0-11.0 [facility] Comment on above: Performed By: #### C BC #### [facility] [address] [address] [address] Raul Pereira SARA - LIPID PROFILEon 2022 CHOL-HDL RATIO NORM SEE BELOW Normal [facility] Comment on above: Result Comment: 3.3 - 4.4 LOW RISK 4.4 - 7.1 AVERAGE RISK 7.1 - 11.0 MODERATE RISK >11.0 HIGH RISK Performed By: #### D ATLIPI ####[facility] [id number] [id number]. Raul Pereira Cholesterol [Mass/Vol] 178 mg/dL Normal <=200 [facility] Comment on above: Performed By: #### D ATLIPI ####[facility] [id number] [id number]. Aranzapetr Randall Cholesterol in HDL [Mass/Vol] 73 mg/dL Critically high 40-60 [facility] Comment on above: Performed By: #### D ATLIPI ####[facility] [address] [place], [place] [address]Dr. Aranzapetr Randall Cholesterol in LDL [Mass/Vol] 72.0 mg/dL Normal [facility] Comment on above: Performed By: #### D ATLIPI ####[facility] [address] [place], [place] [address]Dr. Aranzapetr Randall Cholesterol.total/C holesterol in HDL [Mass ratio] 2.4 {ratio} Normal [facility] Comment on above: Performed By: #### D ATLIPI ####[facility] [id number] [place], [place] [address]Dr. Aranzapetr Randall HDL NORMAL > or = 60 mg/dl - LO W CARDIOVASCULAR RISK <40 mg/dl - HIGH CARDIOVASCULAR RISK Normal [facility] Comment on above: Performed By: #### D ATLIPI ####[facility] [address] [address]Dr. Raul Pereira LDL CALC NORMAL SEE BELOW Normal [facility] Comment on above: Result Comment: <100 mg/dl OPTIMAL 100 - 129 mg/dl NEAR OR ABOVE OPTIMAL 130 - 159 mg/dl BORDERLINE HIGH 160 - 189 mg/dl HIGH >190 mg/dl VERY HIGH Performed By: #### D ATLIPI ####[facility] [address] [address]Dr. Raul Pereira Triglyceride [Mass/Vol] 165 mg/dL Critically high <=150 [facility] Comment on above: Performed By: #### D ATLIPI ####[facility] [address] [address]DrLeann Pereira VLDL CALC 33.0 mg/dL Normal [facility] Comment on above: Performed By: #### D ATLIPI ####[facility] [address] [address]DrLeann Pereira DRUG SCREEN RAPID (URINE)on 01-31-2023 AMP Positive Abnormal NEGATIVE [facility] Comment on above: Performed By: #### C BC #### [facility] [address] [address] [address] Raul Pereira BAR Negative Normal NEGATIVE [facility] Comment on above: Performed By: #### C BC #### [facility] [address] [address] [address] Raul Pereira BUP Positive Abnormal NEGATIVE [facility] Comment on above: Performed By: #### C BC #### [facility] [address] [address] [address] Raul Pereira BZO Negative Normal NEGATIVE [facility] Comment on above: Performed By: #### C BC #### [facility] [address] [address] [address] Raul Pereira RADHA Negative Normal NEGATIVE [facility] Comment on above: Performed By: #### C BC #### [facility] [address] [address] [address] Raul Pereira CUT-OFFS SEE BELOW Normal [facility] Comment on above: Result Comment: [...] ng/mL Performed By: #### C BC #### [facility] [address] [place] [address] Dr. Raul Pereira DRUG CUT HEADER DRUG CLASS TEST SYST EM CUT-OFF CONCENTRATIONS ARE FOLLOWS: Normal [facility] Comment on above: Performed By: #### C BC #### [facility] [address] [place] [address] Dr. Raul Pereira mAMP Negative Normal NEGATIVE [facility] Comment on above: Performed By: #### C BC #### [facility] [address] [place] [address] Dr. Raul Pereira MTD Negative Normal NEGATIVE [facility] Comment on above: Performed By: #### C BC #### [facility] [address] [place] [address] Dr. Raul Pereira OPI Negative Normal NEGATIVE [facility] Comment on above: Performed By: #### C BC #### [facility] [address] [place] [address] Dr. Raul Pereira OXY Negative Normal NEGATIVE [facility] Comment on above: Performed By: #### C BC #### [facility] [address] [address] [address] Raul Pereira PCP Negative Normal NEGATIVE [facility] Comment on above: Performed By: #### C BC #### [facility] [address] [place] [address] Dr. Raul Pereira PPX Negative Normal NEGATIVE [facility] Comment on above: Performed By: #### C BC #### [facility] [address] [place] [address] Dr. Raul Pereira TCA Positive Abnormal NEGATIVE [facility] Comment on above: Performed By: #### C BC #### [facility] [address] [place] [address] Dr. Raul Pereira THC Negative Normal NEGATIVE [facility] Comment on above: Performed By: #### C BC #### [facility] [address] [place] [address] Dr. Raul Pereira FREE THYROXINE INDEX T7on FTI 2.89 Normal 1.30-4.50 [facility] Comment on above: Performed By: #### C VDTBH #### [facility] [address] [address] [address] Raul Pereira T3U 39.0 % Normal 30.0-39.0 [facility] Comment on above: Performed By: #### C VDTBH #### [facility] [address] [address] [address] Raul Pereira T4 [Mass/Vol] 7.40 ug/dL Normal 4.80-13.90 [facility] Comment on above: Performed By: #### C VDTBH #### [facility] [address] [address] [address] Raul Pereira GLYCOHEMOGLOBIN A1Con 2022 ADA RECOMMENDATION SEE BELOW Normal [facility] Comment on above: Result Comment: ADA RECOMMENDED LIMIT 4.0 - 6.0 ADA THERAPEUTIC TARGET < 7.0 ACTION SUGGESTED > 7.0 Performed By: #### D ATA1C ####[facility] [address] [address]Dr. Raul Pereira Glucose [Mass/Vol] 108 mg/dL Normal [facility] Comment on above: Performed By: #### D ATA1C ####[facility] [address] [address]Dr. Raul Pereira HbA1c (Bld) [Mass fraction] 5.4 % Normal 4.5-6.2 [facility] Comment on above: Performed By: #### D ATA1C ####[facility] [address] [address]Dr. Raul Pereira IRONon 01-31-2023 Iron [Mass/Vol] 225.0 ug/dL Critically high 50.0-170.0 [facility] Comment on above: Performed By: #### C VDTBH #### [facility] [address] [address] [address] Raul Pereira PROF 14(COMP METB)on 023 Albumin [Mass/Vol] 3.8 g/dL Normal 3.4-5.0 [facility] Comment on above: Performed By: #### C VDTBH #### [facility] [address] [address] [address] Raul Pereira Albumin/Globulin [Mass ratio] 1.2 {ratio} Normal [facility] Comment on above: Performed By: #### C VDTBH #### [facility] [address] [address] [address] Raul Pereira ALP [Catalytic activity/Vol] 77 U/L Normal 46-116 [facility] Comment on above: Performed By: #### C VDTBH #### [facility] [address] [address] [address] Raul Pereira ALT [Catalytic activity/Vol] 19 U/L Normal 14-59 [facility] Comment on above: Performed By: #### C VDTBH #### [facility] [address] [place] [address] Dr. Raul Pereira Anion gap [Moles/Vol] 12.9 mmol/L Normal [facility] Comment on above: Performed By: #### C VDTBH #### [facility] [address] [place] [address] Dr. Raul Pereira AST [Catalytic activity/Vol] 17 U/L Normal 15-37 [facility] Comment on above: Performed By: #### C VDTBH #### [facility] [address] [place] [address] Dr. Raul Pereira Bilirubin [Mass/Vol] 0.3 mg/dL Normal 0.2-1.0 [facility] Comment on above: Performed By: #### C VDTBH #### [facility] [address] [place] [address] Dr. Raul Pereira Calcium [Mass/Vol] 8.9 mg/dL Normal 8.5-10.1 [facility] Comment on above: Performed By: #### C VDTBH #### [facility] [address] [place] [address] Dr. Raul Pereira Chloride [Moles/Vol] 101 mmol/L Normal 98-107 [facility] Comment on above: Performed By: #### C VDTBH #### [facility] [address] [address] Dr. Raul Pereira CO2 [Moles/Vol] 28.5 mmol/L Normal 21.0-32.0 [facility] Comment on above: Performed By: #### C VDTBH #### [facility] [address] [place] [address] Dr. Raul Pereira Creatinine [Mass/Vol] 0.59 mg/dL Normal 0.55-1.02 [facility] Comment on above: Performed By: #### C VDTBH #### [facility] [address] [place] [address] Dr. Raul Pereira EGFR-AF ZIMBABWEAN >60 Normal >=60 [facility] Comment on above: Performed By: #### C VDTBH #### [facility] [address] [place] [address] Dr. Raul Pereira EGFR-NON AF ZIMBABWEAN >60 Normal >=60 [facility] Comment on above: Performed By: #### C VDTBH #### [facility] [address] [place] [address] Dr. Raul Pereira Globulin (S) [Mass/Vol] 3.1 g/dL Normal [facility] Comment on above: Performed By: #### C VDTBH #### [facility] [address] [place] [address] Dr. Raul Pereira Glucose [Mass/Vol] 84 mg/dL Normal 74-106 [facility] Comment on above: Performed By: #### C VDTBH #### [facility] [address] [place] [address] Dr. Raul Pereira Potassium [Moles/Vol] 4.4 mmol/L Normal 3.5-5.1 [facility] Comment on above: Performed By: #### C VDTBH #### [facility] [address] [place] [address] Dr. Raul Pereira Protein [Mass/Vol] 6.9 g/dL Normal 6.4-8.2 [facility] Comment on above: Performed By: #### C VDTBH #### [facility] [address] [place] [address] Dr. Raul Pereira Sodium [Moles/Vol] 138 mmol/L Normal 136-145 [facility] Comment on above: Performed By: #### C VDTBH #### [facility] [address] [place] [address] Dr. Raul Pereira Urea nitrogen [Mass/Vol] 11.0 mg/dL Normal 7.0-18.0 [facility] Comment on above: Performed By: #### C VDTBH #### [facility] [address] [place] [address] Dr. Raul Pereira Urea nitrogen/Creatinine [Mass ratio] 18.6 mg/mg Normal [facility] Comment on above: Performed By: #### C VDTBH #### [facility] [address] [place] [address] Dr. Raul Pereira TSHon 01-31-2023 TSH 2.354 uIU/mL Normal 0.358-3.740 [facility] Comment on above: Performed By: #### C VDTBH #### [facility] [address] [place] [address] Dr. Raul Pereira UA RANDOM W/MICROSCOPICon BACTERIA NONE SEEN Normal NONE SEEN [facility] Comment on above: Performed By: #### C BC #### [facility] [address] [place] [address] Dr. Raul Pereira Bilirubin Ql (U) Negative Normal NEGATIVE [facility] Comment on above: Performed By: #### C BC #### [facility] [address] [place] [address] Dr. Raul Pereira CAST NONE SEEN Normal NONE SEEN [facility] Comment on above: Performed By: #### C BC #### [facility] [address] [place] [address] Dr. Raul Pereira Clarity (U) CLEAR Normal CLEAR [facility] Comment on above: Performed By: #### C BC #### [facility] [address] [place] [address] Dr. Raul Pereira Color (U) YELLOW Normal YELLOW [facility] Comment on above: Performed By: #### C BC #### [facility] [address] [address] [address] Raul Pereira Crystals LM Nom (Urine sed) NONE SEEN Normal NONE SEEN [facility] Comment on above: Performed By: #### C BC #### [facility] [address] [place] [address] Dr. Raul Pereira Epithelial cells LM Ql (Urine sed) NONE SEEN Normal NONE SEEN /RARE [facility] Comment on above: Performed By: #### C BC #### [facility] [address] [address] [address] Raul Pereira Glucose Ql (U) Negative Normal NEGATIVE [facility] Comment on above: Performed By: #### C BC #### [facility] [address] [place] [address] Dr. Raul Pereira Hemoglobin Ql (U) Negative Normal NEGATIVE [facility] Comment on above: Performed By: #### C BC #### [facility] [address] [place] [address] Dr. Raul Pereira Ketones Ql (U) Negative Normal NEGATIVE [facility] Comment on above: Performed By: #### C BC #### [facility] [address] [place] [address] Dr. Raul Pereira LEUKOCYTES Negative Normal NEGATIVE [facility] Comment on above: Performed By: #### C BC #### [facility] [address] [place] [address] Dr. Raul Pereira MUCOUS NONE SEEN Normal NONE SEEN [facility] Comment on above: Performed By: #### C BC #### [facility] [address] [place] [address] Dr. Raul Pereira Nitrite Ql (U) Negative Normal NEGATIVE [facility] Comment on above: Performed By: #### C BC #### [facility] [address] [place] [address] Dr. Raul Pereira pH (U) 5.5 [pH] Normal 5-9 [facility] Comment on above: Performed By: #### C BC #### [facility] [address] [place] [address] Dr. Raul Pereira RBC NONE SEEN Abnormal 0-2 [facility] Comment on above: Performed By: #### C BC #### [facility] [address] [place] [address] Dr. Raul Pereira SPEC GRAVITY 1.030 Abnormal 1.005-<=1.02 5 [facility] Comment on above: Performed By: #### C BC #### [facility] [address] [place] [address] Dr. Raul Pereira UA PROTEIN Negative Normal NEGATIVE/ TRACE [facility] Comment on above: Performed By: #### C BC #### [facility] [address] [place] [address] Dr. Raul Pereira Urobilinogen Qn (U) 0.2 {Farrukh'U}/dL Normal 0.2 - 1. 0 [facility] Comment on above: Performed By: #### C BC #### [facility] [address] [place] [address] Dr. Raul Pereira WBC NONE SEEN Normal NONE SEEN [facility] Comment on above: Performed By: #### C BC #### [facility] [address] [place] [address] Dr. Raul Pereira VITAMIN D 25 OHon 01-31-2023 VIT D 25-OH 40.8 ng/mL Normal [facility] Comment on above: Performed By: #### C VDTBH #### [facility] [address] [place] [address] Dr. Raul Pereira VIT D RANGES SEE BELOW Normal [facility] Comment on above: Result Comment: <20 ng/mL Vit D deficient 20 - <30 ng/mL Vit D insufficient 30 - 100 ng/mL Vit D sufficient >100 ng/mL Potential Toxicity Performed By: #### C VDTBH #### [facility] [address] [place] [address] Dr. Raul Pereira VC VENOUS REFLUX ALEXUS LMTon 0 01-30-2023 VC VENOUS REFLUX ALEXUS LMT Patient: RHETT MEJIA Exam Date: 01/30/2023 : 1960 Gender:F Ordering : DR NAPOLEON RAHMAN . Admission #: [id number] Family : Order #: [id number] CLICK HERE TO VIEW EXAM RADIOLOGY REPORT [...] thrombus. Compressibility: Normal. Flow: Deep venous reflux. Sustainability Coach:Mid/medial lower leg 4.3 mm with 0.8s reflux. [...] great saphenous vein along with dilated, incompetent counter checker veins and numerous branch saphenous varicosities. 2. 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 Proximal closer with endovenous laser ablation may be beneficial followed by treatment with microfoam chemical ablation. Incompetent lower leg counter checker vein which may contribute to patient's reflux; laser ablation is recommended. Dilated, incompetent branch saphenous varicosities which would benefit from microfoam chemical ablation. 3. Consultation for endovenous ablation is recommended. Dictated by: Jessica Lipscomb M.D. on 01/31/2023 at 09:46 Approved by: Jessica Lipscomb M.D. on 01/31/2023 at 09:51 Normal [facility] CBC AUTO DIFFon 01-13-2023 BASO # 0.0 103/ul Normal 0.0-0.1 [facility] Comment on above: Performed By: #### C BC #### [facility] [address] [address] [address] Raul Pereira Basophils/100 WBC (Bld) 0.5 % Normal 0.2-2.0 [facility] Comment on above: Performed By: #### C BC #### [facility] [address] [place] [address] Dr. Raul Pereira EO # 0.1 103/ul Normal 0.0-0.7 [facility] Comment on above: Performed By: #### C BC #### [facility] [address] [place] [address] Dr. Raul Pereira Eosinophils/100 WBC (Bld) 1.7 % Normal 0.9-7.0 [facility] Comment on above: Performed By: #### C BC #### [facility] [address] [place] [address] Dr. Raul Pereira Erythrocyte distribution width (RBC) [Ratio] 18.4 % Critically high 11.0-15.0 [facility] Comment on above: Performed By: #### C BC #### [facility] [address] [place] [address] Dr. Raul Pereira Hematocrit (Bld) [Volume fraction] 33.1 % Critically low 36.0-48.0 [facility] Comment on above: Performed By: #### C BC #### [facility] [address] [place] [address] Dr. Raul Pereira Hemoglobin (Bld) [Mass/Vol] 10.4 g/dL Critically low 12.0-16.0 [facility] Comment on above: Performed By: #### C BC #### [facility] [address] [place] [address] Dr. Raul Pereira IG # 0.03 10e3/ul Normal 0.00-0.03 [facility] Comment on above: Performed By: #### C BC #### [facility] [address] [place] [address] Dr. Raul Pereira IG % 0.4 % Normal 0.0-0.5 [facility] Comment on above: Performed By: #### C BC #### [facility] [address] [place] [address] Dr. Raul Pereira LYMPH # 1.9 103/ul Normal 1.2-3.8 [facility] Comment on above: Performed By: #### C BC #### [facility] [address] [address] [address] Raul Pereira Lymphocytes/100 WBC (Bld) 25.2 % Normal 20.5-60.0 [facility] Comment on above: Performed By: #### C BC #### [facility] [address] [place] [address] Dr. Raul Pereira MANUAL DIFF REQ NO Normal [facility] Comment on above: Performed By: #### C BC #### [facility] [address] [address] [address] Raul Pereira MCH (RBC) [Entitic mass] 24.1 pg Critically low 26.7-34.0 [facility] Comment on above: Performed By: #### C BC #### [facility] [address] [place] [address] Dr. Raul Pereira MCHC (RBC) [Mass/Vol] 31.4 g/dL Normal 29.9-35.2 [facility] Comment on above: Performed By: #### C BC #### [facility] [address] [place] [address] Dr. Raul Pereira MCV (RBC) [Entitic vol] 76.6 fL Critically low 81.0-99.0 [facility] Comment on above: Performed By: #### C BC #### [facility] [address] [place] [address] Dr. Raul Pereira MONO # 0.8 103/ul Normal 0.3-0.8 [facility] Comment on above: Performed By: #### C BC #### [facility] [address] [place] [address] Dr. Raul Pereira Monocytes/100 WBC (Bld) 10.7 % Normal 1.7-12.0 [facility] Comment on above: Performed By: #### C BC #### [facility] [address] [place] [address] Dr. Raul Pereira NEUT # 4.7 103/ul Normal 1.4-6.5 [facility] Comment on above: Performed By: #### C BC #### [facility] [address] [place] [address] Dr. Raul Pereira Neutrophils/100 WBC (Bld) 61.5 % Normal 43.0-75.0 [facility] Comment on above: Performed By: #### C BC #### [facility] [address] [address] [address] Raul Pereira Platelet mean volume (Bld) [Entitic vol] 8.6 fL Critically low 9.5-13.5 [facility] Comment on above: Performed By: #### C BC #### [facility] [address] [address] [address] Raul Pereira PLT 461 103/ul Critically high 150-450 [facility] Comment on above: Performed By: #### C BC #### [facility] [address] [address] [address] Raul Pereira RBC 4.32 106/ul Normal 4.20-5.40 [facility] Comment on above: Performed By: #### C BC #### [facility] [address] [address] [address] Raul Pereira WBC 7.6 103/ul Normal 4.0-11.0 [facility] Comment on above: Performed By: #### C BC #### [facility] [address] [address] [address] Raul Pereira FREE THYROXINE INDEX T7on FTI 2.10 Normal 1.30-4.50 [facility] Comment on above: Performed By: #### T 7, CMP, TSH, LIPID ####[facility] [address] [place], [place] [address]UiDr. Raul Pereira T3U 35.0 % Normal 30.0-39.0 [facility] Comment on above: Performed By: #### T 7, CMP, TSH, LIPID ####[facility] [address] [place], [place] [address]MfDr. Raul Pereira T4 [Mass/Vol] 6.00 ug/dL Normal 4.80-13.90 [facility] Comment on above: Performed By: #### T 7, CMP, TSH, LIPID ####[facility] [address] [id number] Pereira GLYCOHEMOGLOBIN A1Con 2022 ADA RECOMMENDATION SEE BELOW Normal [facility] Comment on above: Result Comment: ADA RECOMMENDED LIMIT 4.0 - 6.0 ADA THERAPEUTIC TARGET < 7.0 ACTION SUGGESTED > 7.0 Performed By: #### C VDTBH #### [facility] [address] [address] [address] Raul Pereira Glucose [Mass/Vol] 108 mg/dL Normal [facility] Comment on above: Performed By: #### C VDTBH #### [facility] [address] [address] [address] Raul Pereira HbA1c (Bld) [Mass fraction] 5.4 % Normal 4.5-6.2 [facility] Comment on above: Performed By: #### C VDTBH #### [facility] [address] [address] [address] Raul Pereira IRON AND TIBCon 01-13-2023 % SATURATION 3.5 % Normal [facility] Comment on above: Performed By: #### F ETIBC, B12FOL, VITAD ####[facility] [address] [address]DrLeann Pereira Iron [Mass/Vol] 18.0 ug/dL Critically low 50.0-170.0 [facility] Comment on above: Performed By: #### F ETIBC, B12FOL, VITAD ####[facility] [address] [id number] Pereira TIBC DIRECT 513.0 ug/dL Critically high 250.0-450.0 [facility] Comment on above: Performed By: #### F ETIBC, B12FOL, VITAD ####[facility] [address] [address]DrLeann Pereira LIPID PROFILEon 01-13-2023 CHOL-HDL RATIO NORM SEE BELOW Normal [facility] Comment on above: Result Comment: 3.3 - 4.4 LOW RISK 4.4 - 7.1 AVERAGE RISK 7.1 - 11.0 MODERATE RISK >11.0 HIGH RISK Performed By: #### T 7, CMP, TSH, LIPID ####[facility] [address] [address]Dr. Raul Pereira Cholesterol [Mass/Vol] 190 mg/dL Normal <=200 [facility] Comment on above: Performed By: #### T 7, CMP, TSH, LIPID ####[facility] [address] [id number]. Raul Pereira Cholesterol in HDL [Mass/Vol] 71 mg/dL Critically high 40-60 [facility] Comment on above: Performed By: #### T 7, CMP, TSH, LIPID ####[facility] [address] [address]Dr. Raul Pereira Cholesterol in LDL [Mass/Vol] 104.6 mg/dL Normal [facility] Comment on above: Performed By: #### T 7, CMP, TSH, LIPID ####[facility] [address] [address]Dr. Raul Pereira Cholesterol.total/C holesterol in HDL [Mass ratio] 2.7 {ratio} Normal [facility] Comment on above: Performed By: #### T 7, CMP, TSH, LIPID ####[facility] [address] [id number]. Raul Pereira HDL NORMAL > or = 60 mg/dl - LO W CARDIOVASCULAR RISK <40 mg/dl - HIGH CARDIOVASCULAR RISK Normal [facility] Comment on above: Performed By: #### T 7, CMP, TSH, LIPID ####[facility] [address] [id number]. Raul Pereira LDL CALC NORMAL SEE BELOW Normal [facility] Comment on above: Result Comment: <100 mg/dl OPTIMAL 100 - 129 mg/dl NEAR OR ABOVE OPTIMAL 130 - 159 mg/dl BORDERLINE HIGH 160 - 189 mg/dl HIGH >190 mg/dl VERY HIGH Performed By: #### T 7, CMP, TSH, LIPID ####[facility] [address] [address]Dr. Aranzalan Pereira Triglyceride [Mass/Vol] 72 mg/dL Normal <=150 [facility] Comment on above: Performed By: #### T 7, CMP, TSH, LIPID ####[facility] [address] [address]Dr. Raul Pereira VLDL CALC 14.4 mg/dL Normal [facility] Comment on above: Performed By: #### T 7, CMP, TSH, LIPID ####[facility] [address] [address]Dr. Raul Pereira PROF 14(COMP METB)on 023 Albumin [Mass/Vol] 3.5 g/dL Normal 3.4-5.0 [facility] Comment on above: Performed By: #### T 7, CMP, TSH, LIPID ####[facility] [address] [address]Dr. Raul Pereira Albumin/Globulin [Mass ratio] 1.1 {ratio} Normal [facility] Comment on above: Performed By: #### T 7, CMP, TSH, LIPID ####[facility] [address] [address]Dr. Raul Pereira ALP [Catalytic activity/Vol] 92 U/L Normal 46-116 [facility] Comment on above: Performed By: #### T 7, CMP, TSH, LIPID ####[facility] [address] [address]Dr. Raul Pereira ALT [Catalytic activity/Vol] 17 U/L Normal 14-59 [facility] Comment on above: Performed By: #### T 7, CMP, TSH, LIPID ####[facility] [address] [address]Dr. Raul Pereira Anion gap [Moles/Vol] 10.0 mmol/L Normal [facility] Comment on above: Performed By: #### T 7, CMP, TSH, LIPID ####[facility] [address] [address]Dr. Raul Pereira AST [Catalytic activity/Vol] 17 U/L Normal 15-37 [facility] Comment on above: Performed By: #### T 7, CMP, TSH, LIPID ####[facility] [address] [place] [id number]. Raul Pereira Bilirubin [Mass/Vol] 0.2 mg/dL Normal 0.2-1.0 [facility] Comment on above: Performed By: #### T 7, CMP, TSH, LIPID ####[facility] [address] [place] [id number]. Raul Pereira Calcium [Mass/Vol] 8.8 mg/dL Normal 8.5-10.1 [facility] Comment on above: Performed By: #### T 7, CMP, TSH, LIPID ####[facility] [address] [address]Dr. Raul Pereira Chloride [Moles/Vol] 101 mmol/L Normal 98-107 [facility] Comment on above: Performed By: #### T 7, CMP, TSH, LIPID ####[facility] [address] [address]Dr. Raul Pereira CO2 [Moles/Vol] 29.4 mmol/L Normal 21.0-32.0 [facility] Comment on above: Performed By: #### T 7, CMP, TSH, LIPID ####[facility] [address] [address]Dr. Raul Pereira Creatinine [Mass/Vol] 0.50 mg/dL Critically low 0.55-1.02 [facility] Comment on above: Performed By: #### T 7, CMP, TSH, LIPID ####[facility] [address] [place], [place] [address]Dr. Raul Pereira EGFR-AF ZIMBABWEAN >60 Normal >=60 [facility] Comment on above: Performed By: #### T 7, CMP, TSH, LIPID ####[facility] [address] [address]Dr. Raul Pereira EGFR-NON AF ZIMBABWEAN >60 Normal >=60 [facility] Comment on above: Performed By: #### T 7, CMP, TSH, LIPID ####[facility] [address] [address]Dr. Raul Pereira Globulin (S) [Mass/Vol] 3.2 g/dL Normal [facility] Comment on above: Performed By: #### T 7, CMP, TSH, LIPID ####[facility] [address] [address]Dr. Raul Pereira Glucose [Mass/Vol] 88 mg/dL Normal 74-106 [facility] Comment on above: Performed By: #### T 7, CMP, TSH, LIPID ####[facility] [address] [place] [address]Dr. Raul Pereira Potassium [Moles/Vol] 4.4 mmol/L Normal 3.5-5.1 [facility] Comment on above: Performed By: #### T 7, CMP, TSH, LIPID ####[facility] [address] [place] [address]Dr. Raul Pereira Protein [Mass/Vol] 6.7 g/dL Normal 6.4-8.2 [facility] Comment on above: Performed By: #### T 7, CMP, TSH, LIPID ####[facility] [address] [place] [address]Dr. Raul Pereira Sodium [Moles/Vol] 136 mmol/L Normal 136-145 [facility] Comment on above: Performed By: #### T 7, CMP, TSH, LIPID ####[facility] [address] [place] [address]Dr. Raul Pereira Urea nitrogen [Mass/Vol] 12.0 mg/dL Normal 7.0-18.0 [facility] Comment on above: Performed By: #### T 7, CMP, TSH, LIPID ####[facility] [address] [place] [address]Dr. Raul Pereira Urea nitrogen/Creatinine [Mass ratio] 24.0 mg/mg Normal [facility] Comment on above: Performed By: #### T 7, CMP, TSH, LIPID ####[facility] [address] [place] [address]Dr. Raul Pereira TSHon 01-13-2023 TSH 1.623 uIU/mL Normal 0.358-3.740 [facility] Comment on above: Performed By: #### T 7, CMP, TSH, LIPID ####[facility] [address] [place] [address]Dr. Raul Pereira VIT B12 AND FOLATEon 023 Cobalamin (Vitamin B12) [Mass/Vol] 872.0 pg/mL Normal 193.0-986.0 [facility] Comment on above: Performed By: #### F ETIBC, B12FOL, VITAD ####[facility] [address] [place] [address]Dr. Raul Pereira FOLATE 21.20 ng/mL Normal 8.60-58.90 [facility] Comment on above: Performed By: #### F ETIBC, B12FOL, VITAD ####[facility] [address] [place] [address]Dr. Raul Pereira VITAMIN D 25 OHon 01-13-2023 VIT D 25-OH 40.6 ng/mL Normal [facility] Comment on above: Performed By: #### F ETIBC, B12FOL, VITAD ####[facility] [address] [place] [address]Dr. Raul Pereira VIT D RANGES SEE BELOW Normal [facility] Comment on above: Result Comment: <20 ng/mL Vit D deficient 20 - <30 ng/mL Vit D insufficient 30 - 100 ng/mL Vit D sufficient >100 ng/mL Potential Toxicity Performed By: #### F ETIBC, B12FOL, VITAD ####[facility] [address] [place] [address]Dr. Raul Pereira CBC AUTO DIFFon 01-10-2023 BASO # 0.1 103/ul Normal 0.0-0.1 [facility] Comment on above: Performed By: #### C VDTBH #### [facility] [address] [address] [address] Raul Pereira Basophils/100 WBC (Bld) 0.6 % Normal 0.2-2.0 [facility] Comment on above: Performed By: #### C VDTBH #### [facility] [address] [address] [address] Raul Pereira EO # 0.1 103/ul Normal 0.0-0.7 [facility] Comment on above: Performed By: #### C VDTBH #### [facility] [address] [place] [address] Dr. Raul Pereira Eosinophils/100 WBC (Bld) 1.3 % Normal 0.9-7.0 [facility] Comment on above: Performed By: #### C VDTBH #### [facility] [address] [place] [address] Dr. Raul Pereira Erythrocyte distribution width (RBC) [Ratio] 18.4 % Critically high 11.0-15.0 [facility] Comment on above: Performed By: #### C VDTBH #### [facility] [address] [place] [address] Dr. Raul Pereira Hematocrit (Bld) [Volume fraction] 37.8 % Normal 36.0-48.0 [facility] Comment on above: Performed By: #### C VDTBH #### [facility] [address] [place] [address] Dr. Raul Pereira Hemoglobin (Bld) [Mass/Vol] 11.6 g/dL Critically low 12.0-16.0 [facility] Comment on above: Performed By: #### C VDTBH #### [facility] [address] [place] [address] Dr. Raul Pereira IG # 0.02 10e3/ul Normal 0.00-0.03 [facility] Comment on above: Performed By: #### C VDTBH #### [facility] [address] [place] [address] Dr. Raul Pereira IG % 0.3 % Normal 0.0-0.5 [facility] Comment on above: Performed By: #### C VDTBH #### [facility] [address] [place] [address] Dr. Raul Pereira LYMPH # 1.7 103/ul Normal 1.2-3.8 [facility] Comment on above: Performed By: #### C VDTBH #### [facility] [address] [place] [address] Dr. Raul Pereira Lymphocytes/100 WBC (Bld) 21.0 % Normal 20.5-60.0 [facility] Comment on above: Performed By: #### C VDTBH #### [facility] [address] [place] [address] Dr. Raul Pereira MANUAL DIFF REQ NO Normal [facility] Comment on above: Performed By: #### C VDTBH #### [facility] [address] [place] [address] Dr. Raul Pereira MCH (RBC) [Entitic mass] 24.1 pg Critically low 26.7-34.0 [facility] Comment on above: Performed By: #### C VDTBH #### [facility] [address] [place] [address] Dr. Raul Pereira MCHC (RBC) [Mass/Vol] 30.7 g/dL Normal 29.9-35.2 [facility] Comment on above: Performed By: #### C VDTBH #### [facility] [address] [place] [address] Dr. Raul Pereira MCV (RBC) [Entitic vol] 78.6 fL Critically low 81.0-99.0 [facility] Comment on above: Performed By: #### C VDTBH #### [facility] [address] [place] [address] Dr. Raul Pereira MONO # 0.6 103/ul Normal 0.3-0.8 [facility] Comment on above: Performed By: #### C VDTBH #### [facility] [address] [place] [address] Dr. Raul Pereira Monocytes/100 WBC (Bld) 7.5 % Normal 1.7-12.0 [facility] Comment on above: Performed By: #### C VDTBH #### [facility] [address] [place] [address] Dr. Raul Pereira NEUT # 5.4 103/ul Normal 1.4-6.5 [facility] Comment on above: Performed By: #### C VDTBH #### [facility] [address] [address] [address] Raul Pereira Neutrophils/100 WBC (Bld) 69.3 % Normal 43.0-75.0 [facility] Comment on above: Performed By: #### C VDTBH #### [facility] [address] [address] [address] Raul Pereira Platelet mean volume (Bld) [Entitic vol] 9.0 fL Critically low 9.5-13.5 [facility] Comment on above: Performed By: #### C VDTBH #### [facility] [address] [address] [address] Raul Pereira PLT 516 103/ul Critically high 150-450 [facility] Comment on above: Performed By: #### C VDTBH #### [facility] [address] [place] [address] Dr. Raul Pereira RBC 4.81 106/ul Normal 4.20-5.40 [facility] Comment on above: Performed By: #### C VDTBH #### [facility] [address] [address] [address] Raul Pereira WBC 7.8 103/ul Normal 4.0-11.0 [facility] Comment on above: Performed By: #### C VDTBH #### [facility] [address] [address] [address] Raul Pereira CULTURE BLOODon 01-10-2023 Microscopic examination of blood, culture Culture Observations: NO GROWTH AT 5 DAYS. Normal [facility] Comment on above: Performed By: #### B [id number] #### [facility] [address] [address] [address] Raul Pereira Microscopic examination of blood, culture Culture Observations: NO GROWTH AT 5 DAYS. Normal [facility] Comment on above: Performed By: #### B [id number] ####[facility] [address] [address]Dr. Raul Pereira PROF 14(COMP METB)on 023 Albumin [Mass/Vol] 3.7 g/dL Normal 3.4-5.0 [facility] Comment on above: Performed By: #### C BC #### [facility] [address] [place] [address] Dr. Raul Pereira Albumin/Globulin [Mass ratio] 0.9 {ratio} Normal [facility] Comment on above: Performed By: #### C BC #### [facility] [address] [address] [address] Raul Pereira ALP [Catalytic activity/Vol] 105 U/L Normal 46-116 [facility] Comment on above: Performed By: #### C BC #### [facility] [address] [place] [address] Dr. Raul Pereira ALT [Catalytic activity/Vol] 18 U/L Normal 14-59 [facility] Comment on above: Performed By: #### C BC #### [facility] [address] [place] [address] Dr. Raul Pereira Anion gap [Moles/Vol] 10.8 mmol/L Normal [facility] Comment on above: Performed By: #### C BC #### [facility] [address] [place] [address] Dr. Raul Pereira AST [Catalytic activity/Vol] 21 U/L Normal 15-37 [facility] Comment on above: Performed By: #### C BC #### [facility] [address] [place] [address] Dr. Raul Pereira Bilirubin [Mass/Vol] 0.3 mg/dL Normal 0.2-1.0 [facility] Comment on above: Performed By: #### C BC #### [facility] [address] [place] [address] Dr. Raul Pereira Calcium [Mass/Vol] 9.1 mg/dL Normal 8.5-10.1 [facility] Comment on above: Performed By: #### C BC #### [facility] [address] [place] [address] Dr. Raul Pereira Chloride [Moles/Vol] 100 mmol/L Normal 98-107 [facility] Comment on above: Performed By: #### C BC #### [facility] [address] [address] [address] Raul Pereira CO2 [Moles/Vol] 30.8 mmol/L Normal 21.0-32.0 [facility] Comment on above: Performed By: #### C BC #### [facility] [address] [place] [address] Dr. Raul Pereira Creatinine [Mass/Vol] 0.58 mg/dL Normal 0.55-1.02 [facility] Comment on above: Performed By: #### C BC #### [facility] [address] [place] [address] Dr. Raul Pereira EGFR-AF ZIMBABWEAN >60 Normal >=60 [facility] Comment on above: Performed By: #### C BC #### [facility] [address] [place] [address] Dr. Raul Pereira EGFR-NON AF ZIMBABWEAN >60 Normal >=60 [facility] Comment on above: Performed By: #### C BC #### [facility] [address] [place] [address] Dr. Raul Pereira Globulin (S) [Mass/Vol] 4.1 g/dL Normal [facility] Comment on above: Performed By: #### C BC #### [facility] [address] [place] [address] Dr. Raul Pereira Glucose [Mass/Vol] 86 mg/dL Normal 74-106 [facility] Comment on above: Performed By: #### C BC #### [facility] [address] [place] [address] Dr. Raul Pereira Potassium [Moles/Vol] 4.6 mmol/L Normal 3.5-5.1 [facility] Comment on above: Performed By: #### C BC #### [facility] [address] [place] [address] Dr. Raul Pereira Protein [Mass/Vol] 7.8 g/dL Normal 6.4-8.2 [facility] Comment on above: Performed By: #### C BC #### [facility] [address] [place] [address] Dr. Raul Pereira Sodium [Moles/Vol] 137 mmol/L Normal 136-145 [facility] Comment on above: Performed By: #### C BC #### [facility] [address] [address] [address] Raul Pereira Urea nitrogen [Mass/Vol] 9.0 mg/dL Normal 7.0-18.0 [facility] Comment on above: Performed By: #### C BC #### [facility] [address] [address] [address] Raul Pereira Urea nitrogen/Creatinine [Mass ratio] 15.5 mg/mg Normal [facility] Comment on above: Performed By: #### C BC #### [facility] [address] [address] [address] Raul Pereira PREMA DOP LEG RTon [...] JESSICA LIPSCOMB Date: 2023-01-10 10:43 Normal [facility] Covid-19 PCR (CVDTB)on 11-18 SARS-CoV-2 (COVID-19) RNA IMELDA+probe Ql (Unsp spec) Not detected Normal NOT DETECTED [facility] Comment on above: Result Comment: This test is not yet approved or cleared by the [place] FDA. When there are no FDA-approved or cleared tests available, and other criteria are met, FDA can make tests available under an emergency access mechanism called an Emergency Use Authorization (EUA). The EUA for this test is supported by the Fence Installer Helper of Health and Human Service's (HHS's) declaration [...] SARS-CoV-2. Performed By: #### C VDTB #### [facility] [address] [place] [address] Dr. Raul Pereira CALCIUMon 12-03-2022 Calcium [Mass/Vol] 9.7 mg/dL Normal 8.5-10.1 [facility] [facility] Comment on above: Performed By: #### C VDTBH #### [facility] [address] [place] [address] Dr. Raul Pereira CREATININEon 12-03-2022 Creatinine [Mass/Vol] 0.53 mg/dL Critically low 0.55-1.02 [facility] Comment on above: Performed By: #### C BC #### [facility] [address] [place] [address] Dr. Raul Pereira EGFR-AF ZIMBABWEAN >60 Normal >=60 [facility] Comment on above: Performed By: #### C BC #### [facility] [address] [place] [address] Dr. Raul Pereira EGFR-NON AF ZIMBABWEAN >60 Normal >=60 [facility] Comment on above: Performed By: #### C BC #### [facility] [address] [place] [address] Dr. Raul Pereira Office Visiton 08-27-2022 Follow-up visit [id number] Lex Mejia rrmonica L 1960 F Date Provider Department Center 08/27/2022 Nella-MICAELA GUPTA [facility] SURG Second Fl No family history on file Level of Service:52928 CT POSTOP FOLLOW UP VISIT RELATED TO ORIGINAL PX Reason for Visit and Comments: Post-op [483] - Rhett is here today for a post op visit, s/p 08/16/22 JOSE Ortiz [facility] HISTOLOGY - TISSUE EXAMon 09 -30-2022 LAB AP CASE REPORT Normal [facility] Comment on above: Order Comment: Pre-o p diagnosis:Calculus of gallbladder without cholecystitis without obstruction [K80.20] Result Comment: Surg ical Pathology Case: [id number] Authorizing Provider: Micaela Gupta MD Collected: 08/16/2022 0842 Ordering Location: [facility] Main Operating Room Received: 08/16/2022 1001 Pathologist: Maricruz Warren MD Specimen: Gallbladder, GALLBLADDER Performed By: #### L [id number] ####[facility] LAB (BEAKER)[address] [place] [address] LAB AP CLINICAL INFORMATION Normal [facility] Comment on above: Order Comment: Pre-o p diagnosis:Calculus of gallbladder without cholecystitis without obstruction [K80.20] Result Comment: Pre- op diagnosis: Calculus of gallbladder without cholecystitis without obstruction [K80.20] Performed By: #### L [id number] ####[facility] LAB (BEAKER)[address] [place] [address] LAB AP GROSS DESCRIPTION A. Gallbladder. Normal [facility] Comment on above: Order Comment: [...] 0.1 to 0.2 cm in maximum thickness. Cable Machine Operator sections submitted as follows: Cassette 1: Cystic duct resection margin and neck Cassette 2: Body and fundus Ankit Koroma, Pathologists' Senior Data Modeler Performed By: #### L [id number] ####[facility] LAB (BEAKER)[address] [place] [address] LAB AP MICROSCOPIC DESCRIPTION Microscopic examination performed [facility] Comment on above: Order Comment: Pre-o p diagnosis:Calculus of gallbladder without cholecystitis without obstruction [K80.20] Performed By: #### L [id number] ####[facility] LAB (BEAKER)[address] [place] [address] LAB AP REPORT FINAL DIAGNOSIS NARRATIVE Normal [facility] Comment on above: Order Comment: Pre-o p diagnosis:Calculus of gallbladder without cholecystitis without obstruction [K80.20] Result Comment: Gall bladder, cholecystectomy: - Cholelithiasis and cholesterolosis. Performed By: #### L [id number] ####[facility] LAB (BEAKER)[address] [place] [address] HPon 08-16-2022 HP ----- ----- Attestation signed by Micaela Gupta MD at 08/16/2022 7:34 AM Attending Physician Statement I have discussed the case, including pertinent history and exam findings with Dr. Del Angel, surgical oncologist and have personally seen the patient. I agree with the assessment, plan and orders as documented. [phone] pager [phone] phone ----- [facility] General Surgery HISTORY & PHYSICAL Chief Complaint: [...] History: Diagnosis Date Anxiety Arthritis Chronic bronchitis (CMS/FORMERLY [facility]) Depression DVT (deep venous thrombosis) (CMS/FORMERLY [facility]) Gall bladder disease GERD (gastroesophageal reflux disease) [...] Component Value (more content not included)... Normal [facility] NURSNOTEon 08-16-2022 NURSNOTE Stable. Pain minimal . DC criteria met. IV dc'd and patient getting dressed. 1155 Stable for discharge. Normal [facility] NURSNOTE DC instructions revi ewed with patient and Granddaughter, allowed time for questions, copy given. Normal [facility] NURSNOTE Report rec'd and car e assumed. No assessment changes. Pain minimal. Normal [facility] NURSNOTE 0920 Recovery called. [facility] OPNOTE CHOLECYSTECTOMY, LAPAROSCOPIC Operative Note Date: 08/16/2022 Location: [facility] OR Name: Rhett Mejia, : 1960, Diagnosis Pre-op Diagnosis * Calculus of gallbladder without cholecystitis without obstruction [K80.20] * History of gastric bypass [Z98.84] Post-op Diagnosis * Calculus of gallbladder without cholecystitis without obstruction [K80.20] * History of gastric bypass [Z98.84] Procedures CHOLECYSTECTOMY, LAPAROSCOPIC 99087 - CT LAPS SURG CHOLECYSTECTOMY W/CHOLANGIOGRAPHY Surgeons * Micaela Gupta - Primary * Robyn Del Angel Procedure Summary Anesthesia: General ASA: III Estimated Blood Loss: 10 mL Total IV Fluids: 1000 mL Drains: * None in log * Specimens ID Source Type Tests Collected By Collected At Frozen? Priority Lab ID A Gallbladder Tissue HISTOLOGY - TISSUE EXAM Micaela Gupta MD 08/16/22 0842 No [id number] Description: GALLBLADDER Staff: Administrative Office Assistant: Zeny De La Cruz RN Scrub Person: [...] PACU - hemodynamically stable. Condition: stable Normal [facility] POCT GLUCOSE METER UNSOLICIT ED RESULTSon 08-16-2022 Glucose [Mass/Vol] 88 mg/dL Normal 70-105 [facility] Comment on above: Result Comment: epaw low Performed By: #### L [id number] #### [facility] LAB (BEAKER) [address] [place] [address] POCT SARS-COV-2 PCRon 2021 POC SARS-COV-2 ANTIGEN Negative Normal Negative [facility] Comment on above: Result [...] Certificate of Accreditation. Performed By: #### L [id number] ####[facility] LAB (BEAKER)[address] [place] [address] Orders Onlyon 08-14-2022 Orders Only [id number] Lex Mejia rrmonica L 1960 F Date Provider Department Center 08/14/2022 [id number], HISTORICAL [facility] C No family history on file Normal [facility] [id number] 08-13-2022 [id number] NPO after [place] Must have a trash collector truck driver to take you home and someone to stay for 24 hours after surgery. No jewelry. Hold the meds we spoke about: NSAIDS Take the meds we spoke about w/a sip of water DOS: GAPAPENTIN, NEXIUM, INHALER, CYMBALTA Bring insurance card and ID. LABS AND COVID TO BE DONE IN [place]. Normal [facility] CBC AUTO DIFFon 08-13-2022 BASO # 0.0 103/ul Normal 0.0-0.1 [facility] Comment on above: Performed By: #### C BC #### [facility] [address] [address] [address] Raul Pereira Basophils/100 WBC (Bld) 0.4 % Normal 0.2-2.0 [facility] Comment on above: Performed By: #### C BC #### [facility] [address] [address] [address] Raul Pereira EO # 0.1 103/ul Normal 0.0-0.7 [facility] Comment on above: Performed By: #### C BC #### [facility] [address] [place] [address] Dr. Raul Pereira Eosinophils/100 WBC (Bld) 1.2 % Normal 0.9-7.0 [facility] Comment on above: Performed By: #### C BC #### [facility] [address] [place] [address] Dr. Raul Pereira Erythrocyte distribution width (RBC) [Ratio] 18.6 % Critically high 11.0-15.0 [facility] Comment on above: Performed By: #### C BC #### [facility] [address] [place] [address] Dr. Raul Pereira Hematocrit (Bld) [Volume fraction] 39.1 % Normal 36.0-48.0 [facility] Comment on above: Performed By: #### C BC #### [facility] [address] [place] [address] Dr. Raul Pereira Hemoglobin (Bld) [Mass/Vol] 12.5 g/dL Normal 12.0-16.0 [facility] Comment on above: Performed By: #### C BC #### [facility] [address] [place] [address] Dr. Raul Pereira IG # 0.03 10e3/ul Normal 0.00-0.03 [facility] Comment on above: Performed By: #### C BC #### [facility] [address] [place] [address] Dr. Raul Pereira IG % 0.4 % Normal 0.0-0.5 [facility] Comment on above: Performed By: #### C BC #### [facility] [address] [place] [address] Dr. Raul Pereira LYMPH # 2.0 103/ul Normal 1.2-3.8 [facility] Comment on above: Performed By: #### C BC #### [facility] [address] [place] [address] Dr. Raul Pereira Lymphocytes/100 WBC (Bld) 27.2 % Normal 20.5-60.0 [facility] Comment on above: Performed By: #### C BC #### [facility] [address] [place] [address] Dr. Raul Pereira MANUAL DIFF REQ NO Normal [facility] Comment on above: Performed By: #### C BC #### [facility] [address] [place] [address] Dr. Raul Pereira MCH (RBC) [Entitic mass] 27.2 pg Normal 26.7-34.0 [facility] Comment on above: Performed By: #### C BC #### [facility] [address] [place] [address] Dr. Raul Pereira MCHC (RBC) [Mass/Vol] 32.0 g/dL Normal 29.9-35.2 [facility] Comment on above: Performed By: #### C BC #### [facility] [address] [place] [address] Dr. Raul Pereira MCV (RBC) [Entitic vol] 85.2 fL Normal 81.0-99.0 [facility] Comment on above: Performed By: #### C BC #### [facility] [address] [place] [address] Dr. Raul Pereira MONO # 0.7 103/ul Normal 0.3-0.8 [facility] Comment on above: Performed By: #### C BC #### [facility] [address] [place] [address] Dr. Raul Pereira Monocytes/100 WBC (Bld) 9.3 % Normal 1.7-12.0 [facility] Comment on above: Performed By: #### C BC #### [facility] [address] [place] [address] Dr. Raul Pereira NEUT # 4.4 103/ul Normal 1.4-6.5 [facility] Comment on above: Performed By: #### C BC #### [facility] [address] [address] [address] Raul Pereira Neutrophils/100 WBC (Bld) 61.5 % Normal 43.0-75.0 [facility] Comment on above: Performed By: #### C BC #### [facility] [address] [place] [address] Dr. Raul Pereira Platelet mean volume (Bld) [Entitic vol] 8.7 fL Critically low 9.5-13.5 [facility] Comment on above: Performed By: #### C BC #### [facility] [address] [place] [address] Dr. Raul Pereira PLT 387 103/ul Normal 150-450 [facility] Comment on above: Performed By: #### C BC #### [facility] [address] [place] [address] Dr. Raul Pereira RBC 4.59 106/ul Normal 4.20-5.40 [facility] Comment on above: Performed By: #### C BC #### [facility] [address] [place] [address] Dr. Raul Pereira WBC 7.2 103/ul Normal 4.0-11.0 [facility] Comment on above: Performed By: #### C BC #### [facility] [address] [place] [address] Dr. Raul Pereira Covid-19 PCR (CVDTB)on 07-19 SARS-CoV-2 (COVID-19) RNA IMELDA+probe Ql (Unsp spec) Not detected Normal NOT DETECTED [facility] Comment on above: Result Comment: This test is not yet approved or cleared by the [place] FDA. When there are no FDA-approved or cleared tests available, and other criteria are met, FDA can make tests available under an emergency access mechanism called an Emergency Use Authorization (EUA). The EUA for this test is supported by the Fence Installer Helper of Health and Human Service's (HHS's) declaration [...] SARS-CoV-2. Performed By: #### C VDTB #### [facility] [address] [place] [address] Dr. Raul Pereira PROF CHEM 8 (BAS METB)on Anion gap [Moles/Vol] 11.5 mmol/L Normal [facility] Comment on above: Performed By: #### C BC #### [facility] [address] [place] [address] Dr. Raul Pereira Calcium [Mass/Vol] 9.5 mg/dL Normal 8.5-10.1 [facility] [facility] Comment on above: Performed By: #### C BC #### [facility] [address] [place] [address] Dr. Raul Pereira Chloride [Moles/Vol] 101 mmol/L Normal 98-107 [facility] Comment on above: Performed By: #### C BC #### [facility] [address] [place] [address] Dr. Raul Pereira CO2 [Moles/Vol] 29.6 mmol/L Normal 21.0-32.0 [facility] Comment on above: Performed By: #### C BC #### [facility] [address] [place] [address] Dr. Raul Pereira Creatinine [Mass/Vol] 0.65 mg/dL Normal 0.55-1.02 [facility] Comment on above: Performed By: #### C BC #### [facility] [address] [place] [address] Dr. Raul Pereira EGFR-AF ZIMBABWEAN >60 Normal >=60 [facility] Comment on above: Performed By: #### C BC #### [facility] [address] [address] [address] Raul Pereira EGFR-NON AF ZIMBABWEAN >60 Normal >=60 [facility] Comment on above: Performed By: #### C BC #### [facility] [address] [id number] Raul Pereira Glucose [Mass/Vol] 104 mg/dL Normal 74-106 [facility] Comment on above: Performed By: #### C BC #### [facility] [address] [address] [address] Raul Pereira Potassium [Moles/Vol] 4.1 mmol/L Normal 3.5-5.1 [facility] Comment on above: Performed By: #### C BC #### [facility] [address] [address] [address] Raul Pereira Sodium [Moles/Vol] 138 mmol/L Normal 136-145 [facility] Comment on above: Performed By: #### C BC #### [facility] [address] [address] [address] Raul Pereira Urea nitrogen [Mass/Vol] 11.0 mg/dL Normal 7.0-18.0 [facility] Comment on above: Performed By: #### C BC #### [facility] [address] [address] [address] Raul Pereira Urea nitrogen/Creatinine [Mass ratio] 16.9 mg/mg Normal [facility] Comment on above: Performed By: #### C BC #### [facility] [id number] Raul Pereira Office Visiton 08-06-2022 Follow-up visit [id number] Lex Mejia 1960 F Date Provider Department Center 08/06/2022 Nella-MICAELA GUPTA [facility] SURG Second Fl No family history on file Level of Service:82[address] CT OFFICE/OUTPATIENT ESTABLISHED LOW MDM 20-29 MIN Reason for Visit and Comments: Consult [484] - Rhett is here for a gallbladder consult. Rhett also c/o swelling in right leg with pain in calf. Normal [facility] PROTIME-INRon 08-06-2022 INR IN PPP BY COAGULATION ASSAY 0.89 Low 0.90-1.10 [facility] Comment on above: Result [...] 1995;108:231S-246S. Performed By: #### L [id number] #### [facility] (BEAKER) [address] [place] [address] PROTHROMBIN TIME (PT) IN PPP BY COAGULATION ASSAY 12.1 Seconds Low 12.3-14.8 [facility] Comment on above: Performed By: #### L [id number] #### [facility] (BEAKER) [address] [place] [address] CT ABD/PELVIS WO CONon 07-24 CT ABD/PELVIS [...] by: JESSICA LIPSCOMB Date: 2022-07-24 17:21 Normal [facility] HEPATOBILIARY SCAN W EFon 07-18-2022 [place] HEPATOBILIARY SCAN W EF EXAMINATION: [place] HEPATOBILIARY [...] MEAGHAN SKINNER Date: 2022-07-18 10:22 Normal [facility] CBC AUTO DIFFon 07-13-2022 BASO # 0.0 103/ul Normal 0.0-0.1 [facility] Comment on above: Performed By: #### C BC #### [facility] [address] [place] [address] Dr. Raul Pereira Basophils/100 WBC (Bld) 0.5 % Normal 0.2-2.0 [facility] Comment on above: Performed By: #### C BC #### [facility] [address] [place] [address] Dr. Raul Pereira EO # 0.1 103/ul Normal 0.0-0.7 [facility] Comment on above: Performed By: #### C BC #### [facility] [address] [place] [address] Dr. Raul Pereira Eosinophils/100 WBC (Bld) 0.9 % Normal 0.9-7.0 [facility] Comment on above: Performed By: #### C BC #### [facility] [address] [place] [address] Dr. Raul Pereira Erythrocyte distribution width (RBC) [Ratio] 20.2 % Critically high 11.0-15.0 [facility] Comment on above: Performed By: #### C BC #### [facility] [address] [place] [address] Dr. Raul Pereira Hematocrit (Bld) [Volume fraction] 41.1 % Normal 36.0-48.0 [facility] Comment on above: Performed By: #### C BC #### [facility] [address] [place] [address] Dr. Raul Pereira Hemoglobin (Bld) [Mass/Vol] 13.2 g/dL Normal 12.0-16.0 [facility] Comment on above: Performed By: #### C BC #### [facility] [address] [place] [address] Dr. Raul Pereira IG # 0.05 10e3/ul Critically high 0.00-0.03 [facility] Comment on above: Performed By: #### C BC #### [facility] [address] [place] [address] Dr. Raul Pereira IG % 0.6 % Critically high 0.0-0.5 [facility] Comment on above: Performed By: #### C BC #### [facility] [address] [place] [address] Dr. Raul Pereira LYMPH # 1.4 103/ul Normal 1.2-3.8 [facility] Comment on above: Performed By: #### C BC #### [facility] [address] [place] [address] Dr. Raul Pereira Lymphocytes/100 WBC (Bld) 17.3 % Critically low 20.5-60.0 [facility] Comment on above: Performed By: #### C BC #### [facility] [address] [place] [address] Dr. Raul Pereira MANUAL DIFF REQ NO Normal [facility] Comment on above: Performed By: #### C BC #### [facility] [address] [place] [address] Dr. Raul Pereira MCH (RBC) [Entitic mass] 27.3 pg Normal 26.7-34.0 [facility] Comment on above: Performed By: #### C BC #### [facility] [address] [place] [address] Dr. Raul Pereira MCHC (RBC) [Mass/Vol] 32.1 g/dL Normal 29.9-35.2 [facility] Comment on above: Performed By: #### C BC #### [facility] [address] [place] [address] Dr. Raul Pereira MCV (RBC) [Entitic vol] 84.9 fL Normal 81.0-99.0 [facility] Comment on above: Performed By: #### C BC #### [facility] [address] [place] [address] Dr. Raul Pereira MONO # 0.8 103/ul Normal 0.3-0.8 [facility] Comment on above: Performed By: #### C BC #### [facility] [address] [place] [address] Dr. Raul Pereira Monocytes/100 WBC (Bld) 10.0 % Normal 1.7-12.0 [facility] Comment on above: Performed By: #### C BC #### [facility] [address] [place] [address] Dr. Raul Pereira NEUT # 5.8 103/ul Normal 1.4-6.5 [facility] Comment on above: Performed By: #### C BC #### [facility] [address] [place] [address] Dr. Raul Pereira Neutrophils/100 WBC (Bld) 70.7 % Normal 43.0-75.0 [facility] Comment on above: Performed By: #### C BC #### [facility] [address] [place] [address] Dr. Raul Pereira Platelet mean volume (Bld) [Entitic vol] 9.1 fL Critically low 9.5-13.5 [facility] Comment on above: Performed By: #### C BC #### [facility] [address] [place] [address] Dr. Raul Pereira PLT 358 103/ul Normal 150-450 [facility] Comment on above: Performed By: #### C BC #### [facility] [address] [place] [address] Dr. Raul Pereira RBC 4.84 106/ul Normal 4.20-5.40 [facility] Comment on above: Performed By: #### C BC #### [facility] [address] [place] [address] Dr. Raul Pereira WBC 8.1 103/ul Normal 4.0-11.0 [facility] Comment on above: Performed By: #### C BC #### [facility] [address] [place] [address] Dr. Raul Pereira LIPASEon 07-13-2022 Lipase [Catalytic activity/Vol] 47.0 U/L Critically low 73.0-393.0 [facility] Comment on above: Performed By: #### C BC #### [facility] [address] [place] [address] Dr. Raul Pereira PROF 14(COMP METB)on 022 Albumin [Mass/Vol] 3.6 g/dL Normal 3.4-5.0 [facility] Comment on above: Performed By: #### C BC #### [facility] [address] [place] [address] Dr. Raul Pereira Albumin/Globulin [Mass ratio] 1.0 {ratio} Normal [facility] Comment on above: Performed By: #### C BC #### [facility] [address] [place] [address] Dr. Raul Pereira ALP [Catalytic activity/Vol] 88 U/L Normal 46-116 [facility] Comment on above: Performed By: #### C BC #### [facility] [address] [place] [address] Dr. Raul Pereira ALT [Catalytic activity/Vol] 16 U/L Normal 14-59 [facility] Comment on above: Performed By: #### C BC #### [facility] [address] [place] [address] Dr. Raul Pereira Anion gap [Moles/Vol] 13.2 mmol/L Normal [facility] Comment on above: Performed By: #### C BC #### [facility] [address] [place] [address] Dr. Raul Pereira AST [Catalytic activity/Vol] 15 U/L Normal 15-37 [facility] Comment on above: Performed By: #### C BC #### [facility] [address] [place] [address] Dr. Raul Pereira Bilirubin [Mass/Vol] 0.2 mg/dL Normal 0.2-1.0 [facility] Comment on above: Performed By: #### C BC #### [facility] [address] [place] [address] Dr. Raul Pereira Calcium [Mass/Vol] 9.5 mg/dL Normal 8.5-10.1 [facility] Comment on above: Performed By: #### C BC #### [facility] [address] [place] [address] Dr. Raul Pereira Chloride [Moles/Vol] 100 mmol/L Normal 98-107 [facility] Comment on above: Performed By: #### C BC #### [facility] [address] [place] [address] Dr. Raul Pereira CO2 [Moles/Vol] 28.0 mmol/L Normal 21.0-32.0 [facility] Comment on above: Performed By: #### C BC #### [facility] [address] [place] [address] Dr. Raul Pereira Creatinine [Mass/Vol] 0.78 mg/dL Normal 0.55-1.02 [facility] Comment on above: Performed By: #### C BC #### [facility] [address] [place] [address] Dr. Raul Pereira EGFR-AF ZIMBABWEAN >60 Normal >=60 [facility] Comment on above: Performed By: #### C BC #### [facility] [address] [place] [address] Dr. Raul Pereira EGFR-NON AF ZIMBABWEAN >60 Normal >=60 [facility] Comment on above: Performed By: #### C BC #### [facility] [address] [place] [address] Dr. Raul Pereira Globulin (S) [Mass/Vol] 3.6 g/dL Normal [facility] Comment on above: Performed By: #### C BC #### [facility] [address] [place] [address] Dr. Raul Pereira Glucose [Mass/Vol] 86 mg/dL Normal 74-106 [facility] Comment on above: Performed By: #### C BC #### [facility] [address] [place] [address] Dr. Raul Pereira Potassium [Moles/Vol] 4.2 mmol/L Normal 3.5-5.1 [facility] Comment on above: Performed By: #### C BC #### [facility] [address] [place] [address] Dr. Raul Pereira Protein [Mass/Vol] 7.2 g/dL Normal 6.4-8.2 [facility] Comment on above: Performed By: #### C BC #### [facility] [address] [place], [place] [address] Dr. Raul Pereira Sodium [Moles/Vol] 137 mmol/L Normal 136-145 [facility] Comment on above: Performed By: #### C BC #### [facility] [address] [place], [place] [address] Dr. Raul Pereira Urea nitrogen [Mass/Vol] 11.0 mg/dL Normal 7.0-18.0 [facility] Comment on above: Performed By: #### C BC #### [facility] [address] [place], [place] [address] Dr. Raul Pereira Urea nitrogen/Creatinine [Mass ratio] 14.1 mg/mg Normal [facility] Comment on above: Performed By: #### C BC #### [facility] [address] [place], [place] [address] Dr. Raul Pereira US SINGLE QUAD RT [facility] US SINGLE QUAD RT [facility] EXAM: US SINGLE QUAD RT [...] MICAH ROSAS Date: 2022-07-13 16:33 Normal [facility] Covid-19 [facility]on 06-17 SARS-CoV-2 (COVID-19) RNA IMELDA+probe Ql (Unsp spec) Not detected Normal NOT DETECTED [facility] Comment on above: Result Comment: This test is not yet approved or cleared by the [place] FDA. When there are no FDA-approved or cleared tests available, and other criteria are met, FDA can make tests available under an emergency access mechanism called an Emergency Use Authorization (EUA). The EUA for this test is supported by the [place] of Health and Human Service's (HHS's) declaration [...] consistent with SARS-CoV-2. Performed By: #### C [facility] #### [facility] [address] [place] [address] Dr. Raul Pereira Endoscopy Reporton 8 Endoscopy Report [id number]tt [facility] Surgery Date: 02/24/2018 Room #: Z0 Date of : 1960 PROCEDURE NOTEATTENDING: Xin Beasley M.D.PROCEDURE PERFORMED: EGD.JUICE WEIGHER: Dr. Noland.SEDATION:1. Versed 10 mg.2. Fentanyl 250 [...] 02/24/2018/09:53 Kiara/Ruddy Noland M.D.Date Trans: 02/24/2018 12:13 P/Aditya_JN:[id number] cc: Napoleon Rahman M.D. [address] [facility] [address] Normal [facility] Endoscopy Report MR#: [id number] Pt. Name: Rhett Mejia Surgery Date: 02/24/2018 Room #: Z0 Date of : 1960 PROCEDURE NOTEATTENDING: Xin Beasley M.D.PROCEDURE PERFORMED: Colonoscopy and polypectomy.JUICE WEIGHER: Ruddy Noland M.D.SEDATION: Versed 10 mg and [...] 02/24/2018/09:57 Kiara/Ruddy Noland M.D.Date Trans: 02/24/2018 10:12 A/Aditya_JN:[id number] cc: Napoleon Rahman M.D. [address] [facility] Kiara [facility] [address] Normal [facility] POC GLUCOSE LABon 02-24-2018 Glucose mass conc 87 mg/dL Normal 70-100 [facility] Comment on above: Performed By: #### 8 5499 ####[address] Vital Signs Date Time Vital Sign Value Performing Clinician Facility NEGATED: Highlighted row BMI (Body Mass Index) [facility] NEGATED: Highlighted row Body Temperature [facility] NEGATED: Highlighted row Body weight [facility] NEGATED: Highlighted row BP Diastolic [facility] NEGATED: Highlighted row BP Systolic [facility] NEGATED: Highlighted row Height Gene [facility] NEGATED: Highlighted row Pulse (Heart Rate) [facility] ional [facility] NEGATED: Highlighted row Pulse Oximetry [facility] NEGATED: Highlighted row Respiratory Rate [facility] Encounters Encounter Date Encounter Type Care Provider Facility Start: 08-16-2024 End: 08-16-2024 ambulatory Monica Malagon MD Facility:[facility] Start: 08-02-2024 End: 08-02-2024 ambulatory Monica Malagon MD Facility: [facility] Start: 07-30-2024 ambulatory Cristian Johnson acility:[facility] Start: 06-21-2024 End: 06-21-2024 ambulatory Monica Malagon MD Facility:[facility] Start: 09-22-2023 End: 09-22-2023 ambulatory Monica Malagon MD Facility:[facility] Start: 04-08-[address] NAPOLEON RAHMAN [...] abnormal findings DR NAPOLEON RAHMAN . [facility] Start: 01-31-2023 End: 02-01-2023 Encounter [...] laboratory examination DR BETHEL LITTLE . [facility] Start: 12-13-2022 End: 12-14-2022 ambulatory [...] Facility:[facility] Start: 08-27-2022 End: 08-27-2022 ambulatory [facility] Start: 08-16-2022 End: 08-16-2022 ambulatory [facility] Start: 08-15-2022 Encounter for other preprocedural examination DR MICAELA GUPTA [facility] Start: 08-15-2022 Encounter for preprocedural laboratory examination DR MICAELA GUPTA [facility] Start: 08-13-2022 End: 08-14-[address] MICAELA GUPTA Facility:[facility] Start: 08-13-2022 End: 08-14-2022 Encounter for other preprocedural examination DR MICAELA GUPTA Facility:[facility] Start: 08-06-2022 End: 08-07-2022 ambulatory [facility] Start: 08-06-2022 End: 08-06-2022 ambulatory [facility] Start: 08-06-2022 ambulatory [facility] Start: 07-24-2022 End: 07-25-2022 ambulatory [...] Start: 02-24-2018 End: 02-25-2018 Ambulatory XIN BEASLEY Facility:[facility] Start: 10-19-2014 End: 10-19-2014 Patient encounter procedure [facility] Start: 12-22-2013 End: 12-22-2013 Departed Referred [facility] Start: 10-12-2001 End: 10-12-2001 Patient encounter procedure [facility] Start: 09-01-2001 End: 09-01-2001 Patient encounter procedure [facility] Start: 08-26-2001 End: 08-26-2001 Patient encounter procedure [facility] Start: 03-21-1999 End: 03-28-1999 Evaluation and management of inpatient [facility] Start: 09-07-1997 End: 09-07-1997 Admission to day surgery [facility] Start: 07-21-1997 End: 07-21-1997 Emergency department patient visit [facility] Procedures Date Procedure Procedure Detail Performing Clinician Start: 02-24-2018 Colsc flx w/removal lesion by hot bx forceps XIN BEASLEY Payers Date Payer Category Payer Unknown 2015 Medicare 1960 Self-pay 1960 Self-pay [id number] 1960 Unknown [id number] 1960 Unknown [id number] 2.16.84 0.1.061364.3.579.2.593 1960 Unknown [id number] 2.16.84 0.1.123598.3.579.2.593 1960 Unknown [id number] 2.16.84 0.1.147134.3.579.2.593 1959 Unknown [id number] 2.16.84 0.1.901056.3.579.2.593 1959 Unknown [id number] 2.16.84 0.1.832020.3.579.2.593 1959 Unknown [id number] 2.16.84 0.1.253762.3.579.2.593 1959 Unknown [id number] 2.16.84 0.1.207300.3.579.2.593 1959 Unknown [id number] 2.16.84 0.1.044524.3.579.2.593 1959 Unknown [id number] 2.16.84 0.1.097577.3.579.2.593 1959 Unknown [id number] 2.16.84 0.1.673670.3.579.2.593 1959 Unknown [id number] 2.16.84 0.1.535118.3.579.2.593 1959 Unknown [id number] 2.16.84 0.1.603964.3.579.2.593 1959 Unknown [id number] 2.16.84 0.1.924130.3.579.2.593 1959 Unknown [id number] 2.16.84 0.1.327220.3.579.2.593 1959 Unknown [id number] 2.16.84 0.1.510259.3.579.2.593 1959 Unknown [id number] 2.16.84 0.1.864106.3.579.2.593 1959 Unknown [id number] 2.16.84 0.1.642291.3.579.2.593 1959 Unknown [id number] 2.16.84 0.1.911543.3.579.2.593 1959 Unknown [id number] 2.16.84 0.1.020629.3.579.2.593 1959 Unknown [id number] 2.16.84 0.1.375906.3.579.2.593 1959 Unknown [id number] 2.16.84 0.1.910234.3.579.2.593 1959 Unknown [id number] 2.16.84 0.1.422136.3.579.2.593 1959 Unknown [id number] 2.16.84 0.1.716285.3.579.2.593 1959 Unknown [id number] 2.16.84 0.1.987065.3.579.2.593 1959 Unknown [id number] 2.16.84 0.1.622185.3.579.2.593 1959 Unknown [id number] 2.16.84 0.1.956551.3.579.2.593 1959 Unknown [id number] 2.16.84 0.1.143311.3.579.2.593 1959 Unknown [id number] 2.16.84 0.1.949954.3.579.2.593 1959 Unknown [id number] 2.16.84 0.1.408318.3.579.2.593 1959 Unknown [id number] 2.16. 840.1.704246.3.579.2.196 1959 Unknown [id number] 2.16. 840.1.961912.3.579.2.196 1959 Unknown [id number] 2.16. 840.1.708391.3.579.2.196 1959 Unknown [id number] 2.16. 840.1.650704.3.579.2.196 Medicare [id number] Unknown [id number] Unknown [id number] 2.16.84 0.1.630787.3.579.2.593 Unknown [id number] 2.16.8 40.1.710028.3.579.2.531 Clinical Notes 05-15-2022 to 02-18-2023 Note Date [...] our patients to inform us about any qgzh-xcm-zfenjks medications or herbal remedies/nutritional supplements/alternative remedies. 2. [...] options with their primary care provider. [facility] 01-16-2023 Note CONSULTATION CONSULTATION DATE: [...] up in the clinic post epidural. [facility] 12-04-2022 Note CONSULTATION CONSULTATION DATE: [...] in the office after the procedure. [facility] 11-15-2022 Note CONSULTATION PROCEDURE DATE: [...] the office following her RFA procedure. [facility] 11-15-2022 Note CONSULTATION CONSULTATION DATE: [...] measures such as heat and stretches. [facility] 08-29-2022 Note CONSULTATION PROCEDURE DATE: [...] pattern. Patient tolerated the procedure well. [facility] 08-29-2022 Note CONSULTATION CONSULTATION DATE: [...] up in the office post procedure. [facility] 08-29-2022 Note CONSULTATION CONSULTATION DATE: 08/29/2022 ADDENDUM: Addendum to peer plan: We will repeat radiofrequency ablation starting on the right side and subsequently moving to the left at T11, T12 and L1, L2. [facility] 08-27-2022 Note Subjective Patient ID: [...] past 36 hour(s)). No follow-ups on file. [facility] 08-16-2022 Note Patient: Rhett rousseau Procedure Summary Date: 08/16/22 Room / Location: [facility] OPERATING ROOM 01 / [facility] Operating Room Anesthesia Start: 734 [...] no known notable events for this encounter. [facility] 08-16-2022 Note Airway Date/Time: 08/16/2022 7:44 AM Urgency: elective Airway not difficult General Information and Staff Patient location during procedure: OR Anesthesiologist: Cassi Velez MD Resident/SPINNER FRAME/CAA: LEONARD Canales Performed: resident/SPINNER FRAME/CAA Indications and Patient Condition Indications for airway [...] before airway management; Dentures to Circ RN [facility] 08-16-2022 Note Patient: Rhett rousseau Procedure Information Date/Time: 08/16/22729 Procedure: CHOLECYSTECTOMY, LAPAROSCOPIC, WITH INTRAOPERATIVE CHOLANGIOGRAM, WITH LAPAROTOMY IF INDICATED REQ BRADEREJE OR MANDO HUERTA MAUK, WOODSON - C-ARM AVAIL STAFF REQUESTS: LENIN DE LA CRUZ Location: [facility] OPERATING ROOM 01 / [facility] Operating Room Surgeons: Micaela Gupta [...] Plan discussed with CAA. Additional Equipment Requests [facility] 08-06-2022 Note Subjective Patient ID: Rhett [...] past 36 hour(s)). No follow-ups on file. [facility] 08-06-2022 Note Subjective Patient ID: Rhett [...] past 36 hour(s)). No follow-ups on file. [facility] 06-12-2022 Note CONSULTATION PROCEDURE DATE: [...] The patient tolerated the procedure well. [facility] 06-12-2022 Note CONSULTATION CONSULTATION DATE: [...] agrees to the plan of care. [facility] 05-15-2022 Note CONSULTATION CONSULTATION DATE: [...] Patient agrees with the plan of care. [facility] Signed and Approved by: RUBY RAMIREZ . 05/16/2022 13:38:00 [facility] 05-15-2022 Note CONSULTATION PROCEDURE DATE: 05/15/2022 [...] will be followed up in the office. [facility] Signed and Approved by: RUBY RAMIREZ . 05/16/2022 13:38:00 [facility] Summary Purpose Family History No Family History Records FoundNo Family History Records FoundNo Family History Records FoundNo Family History Records FoundNo Family History Records Found Advance Directives No Advanced Directives Records FoundNo Advanced Directives Records FoundNo Advanced Directives Records FoundNo Advanced Directives Records FoundNo Advanced Directives Records Found Additional Source Comments INFORMATION SOURCE (unrecogn ized section and content) DATE CREATED AUTHOR 05/07/2018 [facility] DATE CREATED AUTHOR AUTHOR'S ORGANIZ ATION 09/26/2022 [facility] DATE CREATED AUTHOR AUTHOR'S ORGANIZ ATION 03/28/2023 [facility] DATE CREATED AUTHOR AUTHOR'S ORGANIZ ATION 08/01/2024 [facility] DATE CREATED AUTHOR AUTHOR'S ORGANIZ ATION 08/20/2024 [facility] FOR RECORDS PERTAINING TO PATIENTS WHO ARE [...] BE BASED ON THE PRIMARY CLINICAL RECORDS. [facility] [employer] provides no warranty or guarantee of the accuracy or completeness of information in this document.
[2024-09-06 08:25] VITALS: BP 159/93; PULSE 89; TEMP 35.9; O2SAT 97
[2024-09-06 09:29] VITALS: BP 134/71; PULSE 88; O2SAT 90
[2024-09-06 09:30] VITALS: BP 122/68; PULSE 89; O2SAT 90
[2024-09-06] MEDS: BUPIVACAINE HCL 0.25% PF 25 MG/10 ML VIAL INJ (09:30)
[2024-09-06] MEDS: IOHEXOL 240 MG/ML - 10 ML VIAL 12 MG INJ (09:30)
[2024-09-06] MEDS: DEXAMETHASONE SOD PHOS 10 MG/ML VIAL INJ (09:30)
[2024-09-06] MEDS: LIDOCAINE HCL 2% 400 MG/20 ML MDV INJ (09:30)
--- NOTE | 2024-09-06 09:36 | W.PM.PROCNOT ---
Date of procedure: 09/06/24 Pre-op diagnosis: M54.12 Post-op diagnosis: same as pre-op Procedure: Procedure: Bilateral C5-6 transforaminal epidural steroid injection Medications: Bupivacaine 0.25% 2cc, lidocaine 2% 1cc, dexamethasone 10mg The patient was seen and examined in the preoperative holding area.? Informed consent was obtained and placed on the chart.? Patient was brought to the medical procedure unit and placed in the prone position where a timeout was completed verifying the correct patient, procedure site, position, and planned special equipment using sterile aseptic technique.? Under direct fluoroscopic visualization a 25-gauge Quincke tipped spinal needle was advanced at level left C5-6 to the designated neural foramen where contrast dye was injected to show adequate spread.? There was no evidence of vascular or adverse uptake.? Epidural spread was appreciated.? The above-mentioned injectate was then placed in a 1.5 mL aliquot preceded by negative aspiration.? The needle was removed. The same procedure, at the same level, was completed on the opposite side. ? Patient was taken to the postprocedural recovery area and monitored for an appropriate length of time before found suitable for discharge in the accompaniment of a responsible adult. Anesthesia: Local Surgeon: Monica Malagon Pathology: none sent Condition: stable Disposition: no change
== END 2024-09-06 09:36 | disposition home or self-care (01) ==
LOC: SURGOUT 08:06
PROVIDERS: PCP Family Medicine; Visit Provider Anesthesiology
DX: M54.12 Radiculopathy, cervical region (principal)
CPT/HCPCS: 64479; J0665; J1100; Q9966

== ENCOUNTER 2024-09-15 10:53 | Outpatient (OUT) | payer MEDICARE, OTHER, SELFPAY ==
--- OUTSIDE RECORDS SUMMARY | 2024-09-15 11:01 | XMS_ITS | CCD ---
Author Organization [facility] Care Team Providers Care Field Support Representative Name Role Phone NAWRAS, ALI T Unavailable Unavailable NAWRAS, ALI T Unavailable Unavailable HOKelvin, NAPOLEON Unavailable Unavailable HOELSY WarrenLAS Unavailable Unavailable PA Unavailable Unavailable NAWRAS, ALI T Unavailable Unavailable [...] Unavailable HOY ., DR BENDER Attending Unavailable CHANDLER, DR MEAGHAN Stanton Consulting Unavailable HOY ., [...] Unavailable HOY ., DR BENDER Attending Unavailable CHANDLER, DR MEAGHAN Stanton Consulting Unavailable RAMIREZ ., [...] Attending Unavailab le Cristian Morris Admitting Unavailab Napoloen Gómez [facility] Unavailable Giedraitis , Andcandi Vytautjohanny Attending Unavailable Giedraitis MD, Andrius Vytautjohanny Attending Unavailable Giedraitis MD, Andrius Vytautas Attending Unavailable Giedraitis MD, Andrius Vytautas Attending Unavailable Allergies Allergy Classification Reported Allergen(s) Allergy Type Date of Onset Reaction(s) Facility (1 source) Contrast media; Translations: [IVP DYE] Propensity to adverse reactions (disorder) 1 [facility] Repository (2 sources) corn extract; Translations: [CORN] Drug Allergy 1 [facility] Repository (6 sources) iodine; Translations: [IODINE] Drug Allergy 9 Edema [facility] Repository (6 sources) Latex; Translations: [LATEX] Drug allergy (disorder) 9 Anaphylaxis [facility] Repository (1 source) loratadine Drug Allergy 1 [facility] Repository (2 sources) loratadine; Translations: [LORATADINE] Drug Allergy 3 [facility] Repository (1 source) montelukast Drug Allergy 1 [facility] Repository (3 sources) papaveretum; Translations: [SOYBEAN] Drug Allergy 1 [facility] Repository (2 sources) Penicillins; Translations: [PENICILLINS] Drug allergy (disorder) 1 [facility] Repository (1 source) povidone-iodine Drug Allergy 9 [facility] Repository (6 sources) propofol; Translations: [PROPOFOL] Drug Allergy 2 Anaphylaxis [facility] Repository (2 sources) wheat preparation; Translations: [WHEAT] Drug Allergy 2 [facility] Repository (5 sources) Iodinated Contrast Media; Translations: [IODINATED CONTRAST MEDIA] Allergy to Substance 4 Anaphylaxis [facility] Repository (1 source) montelukast; Translations: [MONTELUKAST] Drug Allergy 4 [facility] Repository (1 source) oxybutynin; Translations: [DITROPAN] Drug Allergy 2 [facility] Repository (1 source) Povidone-Iodine; Translations: [POVIDONE-IODINE] Drug Allergy 4 [facility] Repository (1 source) Soy protein; Translations: [SOY] Propensity to adverse reactions to drug (disorder) 2 [facility] Repository (1 source) Iodine (And Iodine Containting Drugs) Drug allergy (disorder) 4 [facility] Repository (1 source) Penicillin Drug Allergy [facility] Repository (1 source) Sulfonamides (Antibiotic) Drug allergy (disorder) 2 [facility] Repository (1 source) Iodine Drug Allergy 8 [facility] Repository (1 source) Latex Drug allergy (disorder) 8 [facility] Repository (1 source) Propofol Drug Allergy 8 [facility] Repository Medications Completed/Discontinued Medications Medication Drug [...] 07-15-2022 Episodic Other aftercare (1 source) Other detention (current) drug therapy; Translations: [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 Raul Pereira Basophils/100 WBC (Bld) 0.6 % Normal 0.2-2.0 [facility] Comment on above: Performed By: #### C BC #### [facility] [address] [place] [address] Dr. Raul Pereira EO # 0.2 103/ul Normal 0.0-0.7 [facility] Comment on above: Performed By: #### C BC #### [facility] [address] [place] [address] Dr. Raul Pereira Eosinophils/100 WBC (Bld) 2.3 % Normal 0.9-7.0 [facility] Comment on above: Performed By: #### C BC #### [facility] [address] [place] [address] Dr. Raul Pereira Hematocrit (Bld) [Volume fraction] 39.5 % Normal 36.0-48.0 [facility] Comment on above: Performed By: #### C BC #### [facility] [address] [place] [address] Dr. Raul Pereira Hemoglobin (Bld) [Mass/Vol] 12.3 g/dL Normal 12.0-16.0 [facility] Comment on above: Performed By: #### C BC #### [facility] [address] [place] [address] Dr. Raul Pereira IG # 0.03 10e3/ul Normal 0.00-0.03 [facility] Comment on above: Performed By: #### C BC #### [facility] [address] [place] [address] Dr. Raul Pereira IG % 0.4 % Normal 0.0-0.5 [facility] Comment on above: Performed By: #### C BC #### [facility] [address] [address] [address] Raul Pereira LYMPH # 2.1 103/ul Normal 1.2-3.8 [facility] Comment on above: Performed By: #### C BC #### [facility] [address] [place] [address] Dr. Raul Pereira Lymphocytes/100 WBC (Bld) 24.8 % Normal 20.5-60.0 [facility] Comment on above: Performed By: #### C BC #### [facility] [address] [place] [address] Dr. Raul Pereira MANUAL DIFF REQ NO Normal [facility] Comment on above: Performed By: #### C BC #### [facility] [address] [place] [address] Dr. Raul Pereira MCH (RBC) [Entitic mass] 26.3 pg Critically low 26.7-34.0 [facility] Comment on above: Performed By: #### C BC #### [facility] [address] [place] [address] Dr. Raul Pereira MCHC (RBC) [Mass/Vol] 31.1 g/dL Normal 29.9-35.2 [facility] Comment on above: Performed By: #### C BC #### [facility] [address] [place] [address] Dr. Raul Pereira MCV (RBC) [Entitic vol] 84.4 fL Normal 81.0-99.0 [facility] Comment on above: Performed By: #### C BC #### [facility] [address] [place] [address] Dr. Raul Pereira MONO # 1.0 103/ul Critically high 0.3-0.8 [facility] Comment on above: Performed By: #### C BC #### [facility] [address] [place] [address] Dr. Raul Pereira Monocytes/100 WBC (Bld) 11.8 % Normal 1.7-12.0 [facility] Comment on above: Performed By: #### C BC #### [facility] [address] [place] [address] Dr. Raul Pereira NEUT # 5.0 103/ul Normal 1.4-6.5 [facility] Comment on above: Performed By: #### C BC #### [facility] [address] [place] [address] Dr. Raul Pereira Neutrophils/100 WBC (Bld) 60.1 % Normal 43.0-75.0 [facility] Comment on above: Performed By: #### C BC #### [facility] [address] [place] [address] Dr. Raul Pereira Platelet mean volume (Bld) [Entitic vol] 8.8 fL Critically low 9.5-13.5 [facility] Comment on above: Performed By: #### C BC #### [facility] [address] [place] [address] Dr. Raul Pereira PLT 418 103/ul Normal 150-450 [facility] Comment on above: Performed By: #### C BC #### [facility] [address] [place] [address] Dr. Raul Pereira RBC 4.68 106/ul Normal 4.20-5.40 [facility] Comment on above: Performed By: #### C BC #### [facility] [address] [place] [address] Dr. Raul Pereira WBC 8.3 103/ul Normal 4.0-11.0 [facility] Comment on above: Performed By: #### C BC #### [facility] [address] [place] [address] Dr. Raul Pereira FERRITINon 02-20-2023 Ferritin [Mass/Vol] 15.0 ng/mL Normal 8.0-252.[address] [facility] Comment on above: Performed By: #### C #### [facility] [address] [address] [address] Raul Pereira XR CSPINE 2_3 VIEWSon [...] by: JESSICA LIPSCOMB Date: 2023-02-19 06:[address] [facility] [address] LUNG CANCER SCREENINGon 0 02-13-2023 CT [...] by: MEAGHAN SKINNER Date: 2023-02-13 11:02 Normal [facility] ECHOCARDIO M/2D COMPLETEon 0 02-13-2023 ECHOCARDIO M/2D COMPLETE Patient: RHETT MEJIA Exam Date: 02/13/2023 : 1960 Gender:F Ordering : DR NAPOLEON RAHMAN . Admission #: [id number] Family : Order #: [id number] CLICK HERE TO VIEW EXAM ECHOCARDIOGRAM REPORT [...] Marion M.D. on 02/13/2023 at 18:54 Normal [facility] CREATININEon 02-12-2023 Creatinine [Mass/Vol] 0.76 mg/dL Normal 0.55-1.02 [facility] Comment on above: Performed By: #### C BC #### [facility] [address] [address] [address] Raul Pereira EGFR-AF [place] R[place] >60 Normal >=60 [facility] Comment on above: Performed By: #### C BC #### [facility] [address] [place], [place] [address] Dr. Raul Pereira EGFR-NON AF [place] >60 Normal >=60 [facility] Comment on above: Performed By: #### C BC #### [facility] [address] [address] [address] Raul Pereira MRI BRAIN WO W [...] JESSICA LIPSCOMB Date: 2023-02-12 12:37 Normal [facility] US CAROTID ART BILon 023 US [...] by: JESSICA LIPSCOMB Date: 2023-02-12 14:03 Normal [facility] COMPLIANCE DRUG SCREENon PDF . Normal [facility] Comment on above: Performed By: #### C BC #### [facility] [address] [address] [address] Raul Pereira Summary FINAL Normal [facility] Comment on above: Result Comment: == TOXASSURE [...] == Performed By: #### C BC #### [facility] [address] [place] [address] Dr. Raul Pereira CULTURE URINEon 02-02-2023 CULTURE [...] Trimethoprim/Sulfamethoxa zole <=20 S F Normal [facility] Comment on above: Performed By: #### U RCX #### [facility] [address] [place] [address] Dr. Raul Pereira AMMONIAon 01-31-2023 Ammonia (P) [Moles/Vol] 13 umol/L Normal [facility] Comment on above: Performed By: #### A MM ####[facility] [address] [address]Dr. Raul Pereira CBC AUTO DIFFon 01-31-2023 BASO # 0.1 103/ul Normal 0.0-0.1 [facility] Comment on above: Performed By: #### C BC #### [facility] [address] [address] [address] Raul Pereira Basophils/100 WBC (Bld) 0.6 % Normal 0.2-2.0 [facility] Comment on above: Performed By: #### C BC #### [facility] [address] [place] [address] Dr. Raul Pereira EO # 0.1 103/ul Normal 0.0-0.7 [facility] Comment on above: Performed By: #### C BC #### [facility] [address] [place] [address] Dr. Raul Pereira Eosinophils/100 WBC (Bld) 1.7 % Normal 0.9-7.0 [facility] Comment on above: Performed By: #### C BC #### [facility] [address] [place] [address] Dr. Raul Pereira Erythrocyte distribution width (RBC) [Ratio] 25.9 % Critically high 11.0-15.0 [facility] Comment on above: Result Comment: 2+ a niso Performed By: #### C BC #### [facility] [address] [place] [address] Dr. Raul Pereira Hematocrit (Bld) [Volume fraction] 42.4 % Normal 36.0-48.0 [facility] Comment on above: Performed By: #### C BC #### [facility] [address] [place] [address] Dr. Raul Pereira Hemoglobin (Bld) [Mass/Vol] 13.1 g/dL Normal 12.0-16.0 [facility] Comment on above: Performed By: #### C BC #### [facility] [address] [place] [address] Dr. Raul Pereira IG # 0.02 10e3/ul Normal 0.00-0.03 [facility] Comment on above: Performed By: #### C BC #### [facility] [address] [place] [address] Dr. Raul Pereira IG % 0.2 % Normal 0.0-0.5 [facility] Comment on above: Performed By: #### C BC #### [facility] [address] [place] [address] Dr. Raul Pereira LYMPH # 2.0 103/ul Normal 1.2-3.8 [facility] Comment on above: Performed By: #### C BC #### [facility] [address] [place] [address] Dr. Raul Pereira Lymphocytes/100 WBC (Bld) 24.8 % Normal 20.5-60.0 [facility] Comment on above: Performed By: #### C BC #### [facility] [address] [place] [address] Dr. Raul Pereira MANUAL DIFF REQ NO Normal [facility] Comment on above: Performed By: #### C BC #### [facility] [address] [place] [address] Dr. Raul Pereira MCH (RBC) [Entitic mass] 25.3 pg Critically low 26.7-34.0 [facility] Comment on above: Performed By: #### C BC #### [facility] [address] [place] [address] Dr. Raul Pereira MCHC (RBC) [Mass/Vol] 30.9 g/dL Normal 29.9-35.2 [facility] Comment on above: Performed By: #### C BC #### [facility] [address] [place] [address] Dr. Raul Pereira MCV (RBC) [Entitic vol] 82.0 fL Normal 81.0-99.0 [facility] Comment on above: Performed By: #### C BC #### [facility] [address] [place] [address] Dr. Raul Pereira MONO # 0.7 103/ul Normal 0.3-0.8 [facility] Comment on above: Performed By: #### C BC #### [facility] [address] [address] [address] Raul Pereira Monocytes/100 WBC (Bld) 8.8 % Normal 1.7-12.0 [facility] Comment on above: Performed By: #### C BC #### [facility] [address] [address] [address] Raul Pereira NEUT # 5.2 103/ul Normal 1.4-6.5 [facility] Comment on above: Performed By: #### C BC #### [facility] [address] [address] [address] Raul Pereira Neutrophils/100 WBC (Bld) 63.9 % Normal 43.0-75.0 [facility] Comment on above: Performed By: #### C BC #### [facility] [address] [address] [address] Raul Pereira Platelet mean volume (Bld) [Entitic vol] 9.2 fL Critically low 9.5-13.5 [facility] Comment on above: Performed By: #### C BC #### [facility] [address] [address] [address] Raul Pereira PLT 334 103/ul Normal 150-450 [facility] Comment on above: Performed By: #### C BC #### [facility] [address] [address] [address] Raul Pereira RBC 5.17 106/ul Normal 4.20-5.40 [facility] Comment on above: Performed By: #### C BC #### [facility] [address] [address] [address] Raul Pereira WBC 8.2 103/ul Normal 4.0-11.0 [facility] Comment on above: Performed By: #### C BC #### [facility] [address] [address] [address] Raul Pereira SARA - LIPID PROFILEon 2022 CHOL-HDL RATIO NORM SEE BELOW Normal [facility] Comment on above: Result Comment: 3.3 - 4.4 LOW RISK 4.4 - 7.1 AVERAGE RISK 7.1 - 11.0 MODERATE RISK >11.0 HIGH RISK Performed By: #### D ATLIPI ####[facility] [address] [id number]. Raul Pereira Cholesterol [Mass/Vol] 178 mg/dL Normal <=200 [facility] Comment on above: Performed By: #### D ATLIPI ####[facility] [address] [address]Dr. Aranzapetr Randall Cholesterol in HDL [Mass/Vol] 73 mg/dL Critically high 40-60 [facility] Comment on above: Performed By: #### D ATLIPI ####[facility] [address] [place], [place] [address]Dr. Aranzapetr Randall Cholesterol in LDL [Mass/Vol] 72.0 mg/dL Normal [facility] Comment on above: Performed By: #### D ATLIPI ####[facility] [address] [place], [place] [address]Dr. Aranzapetr Randall Cholesterol.total/C holesterol in HDL [Mass ratio] 2.4 {ratio} Normal [facility] Comment on above: Performed By: #### D ATLIPI ####[facility] [address] [place], [place] [address]Dr. Aranzapetr Randall HDL NORMAL > or = 60 mg/dl - LO W CARDIOVASCULAR RISK <40 mg/dl - HIGH CARDIOVASCULAR RISK Normal [facility] Comment on above: Performed By: #### D ATLIPI ####[facility] [address] [address]Dr. Raul Pereira LDL CALC NORMAL SEE BELOW Normal [facility] Comment on above: Result Comment: <100 mg/dl OPTIMAL 100 - 129 mg/dl NEAR OR ABOVE OPTIMAL 130 - 159 mg/dl BORDERLINE HIGH 160 - 189 mg/dl HIGH >190 mg/dl VERY HIGH Performed By: #### D ATLIPI ####[facility] [address] [address]Dr. Raul Pereira Triglyceride [Mass/Vol] 165 mg/dL Critically high <=150 [facility] Comment on above: Performed By: #### D ATLIPI ####[facility] [address] [address]DrLeann Pereira VLDL CALC 33.0 mg/dL Normal [facility] Comment on above: Performed By: #### D ATLIPI ####[facility] [address] [address]DrLeann Pereira DRUG SCREEN RAPID (URINE)on 01-31-2023 AMP Positive Abnormal NEGATIVE [facility] Comment on above: Performed By: #### C BC #### [facility] [address] [address] [address] Raul Pereira BAR Negative Normal NEGATIVE [facility] Comment on above: Performed By: #### C BC #### [facility] [address] [address] [address] Raul Pereira BUP Positive Abnormal NEGATIVE [facility] Comment on above: Performed By: #### C BC #### [facility] [address] [address] [address] Raul Pereira BZO Negative Normal NEGATIVE [facility] Comment on above: Performed By: #### C BC #### [facility] [address] [address] [address] Raul Pereira RADHA Negative Normal NEGATIVE [facility] Comment on above: Performed By: #### C BC #### [facility] [address] [address] [address] Raul Pereira CUT-OFFS SEE BELOW Normal [facility] Comment on above: Result Comment: AMP [...] ng/mL Performed By: #### C BC #### [facility] [address] [place] [address] Dr. Raul Pereira DRUG CUT HEADER DRUG CLASS TEST SYST EM CUT-OFF CONCENTRATIONS ARE FOLLOWS: Normal [facility] Comment on above: Performed By: #### C BC #### [facility] [address] [place] [address] Dr. Raul Pereira mAMP Negative Normal NEGATIVE [facility] Comment on above: Performed By: #### C BC #### [facility] [address] [place] [address] Dr. Raul Pereira MTD Negative Normal NEGATIVE [facility] Comment on above: Performed By: #### C BC #### [facility] [address] [place] [address] Dr. Raul Pereira OPI Negative Normal NEGATIVE [facility] Comment on above: Performed By: #### C BC #### [facility] [address] [place] [address] Dr. Raul Pereira OXY Negative Normal NEGATIVE [facility] Comment on above: Performed By: #### C BC #### [facility] [address] [address] [address] Raul Pereira PCP Negative Normal NEGATIVE [facility] Comment on above: Performed By: #### C BC #### [facility] [address] [place] [address] Dr. Raul Pereira PPX Negative Normal NEGATIVE [facility] Comment on above: Performed By: #### C BC #### [facility] [address] [place] [address] Dr. Raul Pereira TCA Positive Abnormal NEGATIVE [facility] Comment on above: Performed By: #### C BC #### [facility] [address] [place] [address] Dr. Raul Pereira THC Negative Normal NEGATIVE [facility] Comment on above: Performed By: #### C BC #### [facility] [address] [place] [address] Dr. Raul Pereira FREE THYROXINE INDEX T7on FTI 2.89 Normal 1.30-4.50 [facility] Comment on above: Performed By: #### C VDTBH #### [facility] [address] [address] [address] Raul Pereira T3U 39.0 % Normal 30.0-39.0 [facility] Comment on above: Performed By: #### C VDTBH #### [facility] [address] [address] [address] Raul Pereira T4 [Mass/Vol] 7.40 ug/dL Normal 4.80-13.90 [facility] Comment on above: Performed By: #### C VDTBH #### [facility] [address] [address] [address] Raul Pereira GLYCOHEMOGLOBIN A1Con 2022 ADA RECOMMENDATION SEE BELOW Normal [facility] Comment on above: Result Comment: ADA RECOMMENDED LIMIT 4.0 - 6.0 ADA THERAPEUTIC TARGET < 7.0 ACTION SUGGESTED > 7.0 Performed By: #### D ATA1C ####[facility] [address] [address]Dr. Raul Pereira Glucose [Mass/Vol] 108 mg/dL Normal [facility] Comment on above: Performed By: #### D ATA1C ####[facility] [address] [address]Dr. Raul Pereira HbA1c (Bld) [Mass fraction] 5.4 % Normal 4.5-6.2 [facility] Comment on above: Performed By: #### D ATA1C ####[facility] [address] [address]Dr. Raul Pereira IRONon 01-31-2023 Iron [Mass/Vol] 225.0 ug/dL Critically high 50.0-170.0 [facility] Comment on above: Performed By: #### C VDTBH #### [facility] [address] [address] [address] Raul Pereira PROF 14(COMP METB)on 023 Albumin [Mass/Vol] 3.8 g/dL Normal 3.4-5.0 [facility] Comment on above: Performed By: #### C VDTBH #### [facility] [address] [address] [address] Raul Pereira Albumin/Globulin [Mass ratio] 1.2 {ratio} Normal [facility] Comment on above: Performed By: #### C VDTBH #### [facility] [address] [address] [address] Raul Pereira ALP [Catalytic activity/Vol] 77 U/L Normal 46-116 [facility] Comment on above: Performed By: #### C VDTBH #### [facility] [address] [address] [address] Raul Pereira ALT [Catalytic activity/Vol] 19 U/L Normal 14-59 [facility] Comment on above: Performed By: #### C VDTBH #### [facility] [address] [place] [address] Dr. Raul Pereira Anion gap [Moles/Vol] 12.9 mmol/L Normal [facility] Comment on above: Performed By: #### C VDTBH #### [facility] [address] [place] [address] Dr. Raul Pereira AST [Catalytic activity/Vol] 17 U/L Normal 15-37 [facility] Comment on above: Performed By: #### C VDTBH #### [facility] [address] [place] [address] Dr. Raul Pereira Bilirubin [Mass/Vol] 0.3 mg/dL Normal 0.2-1.0 [facility] Comment on above: Performed By: #### C VDTBH #### [facility] [address] [place] [address] Dr. Raul Pereira Calcium [Mass/Vol] 8.9 mg/dL Normal 8.5-10.1 [facility] Comment on above: Performed By: #### C VDTBH #### [facility] [address] [place] [address] Dr. Raul Pereira Chloride [Moles/Vol] 101 mmol/L Normal 98-107 [facility] Comment on above: Performed By: #### C VDTBH #### [facility] [address] [address] [address] Raul Pereira CO2 [Moles/Vol] 28.5 mmol/L Normal 21.0-32.0 [facility] Comment on above: Performed By: #### C VDTBH #### [facility] [address] [place] [address] Dr. Raul Pereira Creatinine [Mass/Vol] 0.59 mg/dL Normal 0.55-1.02 [facility] Comment on above: Performed By: #### C VDTBH #### [facility] [address] [place] [address] Dr. Raul Pereira EGFR-AF COSTA RICAN >60 Normal >=60 The [facility] Comment on above: Performed By: #### C VDTBH #### [facility] [address] [place] [address] Dr. Raul Pereira EGFR-NON AF [place] RICAN >60 Normal >=60 [facility] Comment on above: Performed By: #### C VDTBH #### [facility] [address] [place] [address] Dr. Raul Pereira Globulin (S) [Mass/Vol] 3.1 g/dL Normal [facility] Comment on above: Performed By: #### C VDTBH #### [facility] [address] [place] [address] Dr. Raul Pereira Glucose [Mass/Vol] 84 mg/dL Normal 74-106 The [facility] Comment on above: Performed By: #### C VDTBH #### [facility] [address] [place] [address] Dr. Raul Pereira Potassium [Moles/Vol] 4.4 mmol/L Normal 3.5-5.1 [facility] Comment on above: Performed By: #### C VDTBH #### [facility] [address] [place] [address] Dr. Raul Pereira Protein [Mass/Vol] 6.9 g/dL Normal 6.4-8.2 The [facility] Comment on above: Performed By: #### C VDTBH #### [facility] [address] [place] [address] Dr. Raul Pereira Sodium [Moles/Vol] 138 mmol/L Normal 136-145 The [facility] Comment on above: Performed By: #### C VDTBH #### [facility] [address] [place] [address] Dr. Raul Pereira Urea nitrogen [Mass/Vol] 11.0 mg/dL Normal 7.0-18.0 [facility] Comment on above: Performed By: #### C VDTBH #### [facility] [address] [place] [address] Dr. Raul Pereira Urea nitrogen/Creatinine [Mass ratio] 18.6 mg/mg Normal [facility] Comment on above: Performed By: #### C VDTBH #### [facility] [address] [place] [address] Dr. Raul Pereira TSHon 01-31-2023 TSH 2.354 uIU/mL Normal 0.358-3.740 [facility] Comment on above: Performed By: #### C VDTBH #### [facility] [address] [place] [address] Dr. Raul Pereira UA RANDOM W/MICROSCOPICon BACTERIA NONE SEEN Normal NONE SEEN [facility] Comment on above: Performed By: #### C BC #### [facility] [address] [place] [address] Dr. Raul Pereira Bilirubin Ql (U) Negative Normal NEGATIVE The [facility] Comment on above: Performed By: #### C BC #### [facility] [address] [place] [address] Dr. Raul Pereira CAST NONE SEEN Normal NONE SEEN [facility] Comment on above: Performed By: #### C BC #### [facility] [address] [place] [address] Dr. Raul Pereira Clarity (U) CLEAR Normal CLEAR [facility] Comment on above: Performed By: #### C BC #### [facility] [address] [place] [address] Dr. Raul Pereira Color (U) YELLOW Normal YELLOW [facility] Comment on above: Performed By: #### C BC #### [facility] [address] [address] [address] Raul Pereira Crystals LM Nom (Urine sed) NONE SEEN Normal NONE SEEN [facility] Comment on above: Performed By: #### C BC #### [facility] [address] [place] [address] Dr. Raul Pereira Epithelial cells LM Ql (Urine sed) NONE SEEN Normal NONE SEEN /RARE [facility] Comment on above: Performed By: #### C BC #### [facility] [address] [address] [address] Raul Pereira Glucose Ql (U) Negative Normal NEGATIVE The [facility] Comment on above: Performed By: #### C BC #### [facility] [address] [place] [address] Dr. Raul Pereira Hemoglobin Ql (U) Negative Normal NEGATIVE The [facility] Comment on above: Performed By: #### C BC #### [facility] [address] [place] [address] Dr. Raul Pereira Ketones Ql (U) Negative Normal NEGATIVE The [facility] Comment on above: Performed By: #### C BC #### [facility] [address] [place] [address] Dr. Raul Pereira LEUKOCYTES Negative Normal NEGATIVE [facility] Comment on above: Performed By: #### C BC #### [facility] [address] [place] [address] Dr. Raul Pereira MUCOUS NONE SEEN Normal NONE SEEN [facility] Comment on above: Performed By: #### C BC #### [facility] [address] [place] [address] Dr. Raul Pereira Nitrite Ql (U) Negative Normal NEGATIVE The [facility] Comment on above: Performed By: #### C BC #### [facility] [address] [place] [address] Dr. Raul Pereira pH (U) 5.5 [pH] Normal 5-9 [facility] Comment on above: Performed By: #### C BC #### [facility] [address] [place] [address] Dr. Raul Pereira RBC NONE SEEN Abnormal 0-2 [facility] Comment on above: Performed By: #### C BC #### [facility] [address] [place] [address] Dr. Raul Pereira SPEC GRAVITY 1.030 Abnormal 1.005-<=1.02 5 [facility] Comment on above: Performed By: #### C BC #### [facility] [address] [place] [address] Dr. Raul Pereira UA PROTEIN Negative Normal NEGATIVE/ TRACE [facility] Comment on above: Performed By: #### C BC #### [facility] [address] [place] [address] Dr. Raul Pereira Urobilinogen Qn (U) 0.2 {Farrukh'U}/dL Normal 0.2 - 1. 0 [facility] Comment on above: Performed By: #### C BC #### [facility] [address] [place] [address] Dr. Raul Pereira WBC NONE SEEN Normal NONE SEEN [facility] Comment on above: Performed By: #### C BC #### [facility] [address] [place] [address] Dr. Raul Pereira VITAMIN D 25 OHon 01-31-2023 VIT D 25-OH 40.8 ng/mL Normal [facility] Comment on above: Performed By: #### C VDTBH #### [facility] [address] [place] [address] Dr. Raul Pereira VIT D RANGES SEE BELOW Normal [facility] Comment on above: Result Comment: <20 ng/mL Vit D deficient 20 - <30 ng/mL Vit D insufficient 30 - 100 ng/mL Vit D sufficient >100 ng/mL Potential Toxicity Performed By: #### C VDTBH #### [facility] [address] [place] [address] Dr. Raul Pereira VC VENOUS REFLUX ALEXUS LMTon 0 01-30-2023 VC VENOUS REFLUX ALEXUS LMT Patient: RHETT MEJIA Exam Date: 01/30/2023 : 1960 Gender:F Ordering : DR NAPOLEON RAHMAN . Admission #: [id number] Family : Order #: [id number] CLICK HERE TO VIEW EXAM RADIOLOGY REPORT [...] thrombus. Compressibility: Normal. Flow: Deep venous reflux. Boat Buffer Plastic:Mid/medial lower leg 4.3 mm with 0.8s reflux. [...] great saphenous vein along with dilated, incompetent cementing machine operator veins and numerous branch saphenous varicosities. 2. 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 Proximal closer with endovenous laser ablation may be beneficial followed by treatment with microfoam chemical ablation. Incompetent lower leg cementing machine operator vein which may contribute to patient's reflux; laser ablation is recommended. Dilated, incompetent branch saphenous varicosities which would benefit from microfoam chemical ablation. 3. Consultation for endovenous ablation is recommended. Dictated by: Jessica Lipscomb M.D. on 01/31/2023 at 09:46 Approved by: Jessica Lipscomb M.D. on 01/31/2023 at 09:51 Normal [facility] CBC AUTO DIFFon 01-13-2023 BASO # 0.0 103/ul Normal 0.0-0.1 [facility] Comment on above: Performed By: #### C BC #### [facility] [address] [address] [address] Raul Pereira Basophils/100 WBC (Bld) 0.5 % Normal 0.2-2.0 [facility] Comment on above: Performed By: #### C BC #### [facility] [address] [place] [address] Dr. Raul Pereira EO # 0.1 103/ul Normal 0.0-0.7 [facility] Comment on above: Performed By: #### C BC #### [facility] [address] [place] [address] Dr. Raul Pereira Eosinophils/100 WBC (Bld) 1.7 % Normal 0.9-7.0 [facility] Comment on above: Performed By: #### C BC #### [facility] [address] [place] [address] Dr. Raul Pereira Erythrocyte distribution width (RBC) [Ratio] 18.4 % Critically high 11.0-15.0 [facility] Comment on above: Performed By: #### C BC #### [facility] [address] [place] [address] Dr. Raul Pereira Hematocrit (Bld) [Volume fraction] 33.1 % Critically low 36.0-48.0 [facility] Comment on above: Performed By: #### C BC #### [facility] [address] [place] [address] Dr. Raul Pereira Hemoglobin (Bld) [Mass/Vol] 10.4 g/dL Critically low 12.0-16.0 [facility] Comment on above: Performed By: #### C BC #### [facility] [address] [place] [address] Dr. Raul Pereira IG # 0.03 10e3/ul Normal 0.00-0.03 [facility] Comment on above: Performed By: #### C BC #### [facility] [address] [place] [address] Dr. Raul Pereira IG % 0.4 % Normal 0.0-0.5 [facility] Comment on above: Performed By: #### C BC #### [facility] [address] [place] [address] Dr. Raul Pereira LYMPH # 1.9 103/ul Normal 1.2-3.8 [facility] Comment on above: Performed By: #### C BC #### [facility] [address] [address] [address] Raul Pereira Lymphocytes/100 WBC (Bld) 25.2 % Normal 20.5-60.0 [facility] Comment on above: Performed By: #### C BC #### [facility] [address] [place] [address] Dr. Raul Pereira MANUAL DIFF REQ NO Normal The [facility] Comment on above: Performed By: #### C BC #### [facility] [address] [address] [address] Raul Pereira MCH (RBC) [Entitic mass] 24.1 pg Critically low 26.7-34.0 [facility] Comment on above: Performed By: #### C BC #### [facility] [address] [place] [address] Dr. Raul Pereira MCHC (RBC) [Mass/Vol] 31.4 g/dL Normal 29.9-35.2 [facility] Comment on above: Performed By: #### C BC #### [facility] [address] [place] [address] Dr. Raul Pereira MCV (RBC) [Entitic vol] 76.6 fL Critically low 81.0-99.0 [facility] Comment on above: Performed By: #### C BC #### [facility] [address] [place] [address] Dr. Raul Pereira MONO # 0.8 103/ul Normal 0.3-0.8 [facility] Comment on above: Performed By: #### C BC #### [facility] [address] [place] [address] Dr. Raul Pereira Monocytes/100 WBC (Bld) 10.7 % Normal 1.7-12.0 [facility] Comment on above: Performed By: #### C BC #### [facility] [address] [place] [address] Dr. Raul Pereira NEUT # 4.7 103/ul Normal 1.4-6.5 [facility] Comment on above: Performed By: #### C BC #### [facility] [address] [place] [address] Dr. Raul Pereira Neutrophils/100 WBC (Bld) 61.5 % Normal 43.0-75.0 [facility] Comment on above: Performed By: #### C BC #### [facility] [address] [address] [address] Raul Pereira Platelet mean volume (Bld) [Entitic vol] 8.6 fL Critically low 9.5-13.5 [facility] Comment on above: Performed By: #### C BC #### [facility] [address] [address] [address] Raul Pereira PLT 461 103/ul Critically high 150-450 [facility] Comment on above: Performed By: #### C BC #### [facility] [address] [address] [address] Raul Pereira RBC 4.32 106/ul Normal 4.20-5.40 [facility] Comment on above: Performed By: #### C BC #### [facility] [address] [address] [address] Raul Pereira WBC 7.6 103/ul Normal 4.0-11.0 [facility] Comment on above: Performed By: #### C BC #### [facility] [address] [address] [address] Raul Pereira FREE THYROXINE INDEX T7on FTI 2.10 Normal 1.30-4.50 [facility] Comment on above: Performed By: #### T 7, CMP, TSH, LIPID ####[facility] [address], [place] [id number]. Raul Pereira T3U 35.0 % Normal 30.0-39.0 [facility] Comment on above: Performed By: #### T 7, CMP, TSH, LIPID ####[facility] [address] [place], [place] [address]FqDr. Raul Pereira T4 [Mass/Vol] 6.00 ug/dL Normal 4.80-13.90 [facility] Comment on above: Performed By: #### T 7, CMP, TSH, LIPID ####[facility] [address] [id number] Pereira GLYCOHEMOGLOBIN A1Con 2022 ADA RECOMMENDATION SEE BELOW Normal The [facility] Comment on above: Result Comment: ADA RECOMMENDED LIMIT 4.0 - 6.0 ADA THERAPEUTIC TARGET < 7.0 ACTION SUGGESTED > 7.0 Performed By: #### C VDTBH #### [facility] [address] [address] [address] Raul Pereira Glucose [Mass/Vol] 108 mg/dL Normal [facility] Comment on above: Performed By: #### C VDTBH #### [facility] [address] [address] [address] Raul Pereira HbA1c (Bld) [Mass fraction] 5.4 % Normal 4.5-6.2 [facility] Comment on above: Performed By: #### C VDTBH #### [facility] [address] [address] [address] Raul Pereira IRON AND TIBCon 01-13-2023 % SATURATION 3.5 % Normal [facility] Comment on above: Performed By: #### F ETIBC, B12FOL, VITAD ####[facility] [address] [address]DrLeann Pereira Iron [Mass/Vol] 18.0 ug/dL Critically low 50.0-170.0 [facility] Comment on above: Performed By: #### F ETIBC, B12FOL, VITAD ####[facility] [address] [id number] Pereira TIBC DIRECT 513.0 ug/dL Critically high 250.0-450.0 [facility] Comment on above: Performed By: #### F ETIBC, B12FOL, VITAD ####[facility] [address] [address]DrLeann Pereira LIPID PROFILEon 01-13-2023 CHOL-HDL RATIO NORM SEE BELOW Normal [facility] Comment on above: Result Comment: 3.3 - 4.4 LOW RISK 4.4 - 7.1 AVERAGE RISK 7.1 - 11.0 MODERATE RISK >11.0 HIGH RISK Performed By: #### T 7, CMP, TSH, LIPID ####[facility] [address] [address]Dr. Raul Pereira Cholesterol [Mass/Vol] 190 mg/dL Normal <=200 [facility] Comment on above: Performed By: #### T 7, CMP, TSH, LIPID ####[facility] [address] [id number]. Raul Pereira Cholesterol in HDL [Mass/Vol] 71 mg/dL Critically high 40-60 [facility] Comment on above: Performed By: #### T 7, CMP, TSH, LIPID ####[facility] [address] [address]Dr. Raul Pereira Cholesterol in LDL [Mass/Vol] 104.6 mg/dL Normal [facility] Comment on above: Performed By: #### T 7, CMP, TSH, LIPID ####[facility] [address] [address]Dr. Raul Pereira Cholesterol.total/C holesterol in HDL [Mass ratio] 2.7 {ratio} Normal [facility] Comment on above: Performed By: #### T 7, CMP, TSH, LIPID ####[facility] [address] [id number]. Raul Pereira HDL NORMAL > or = 60 mg/dl - LO W CARDIOVASCULAR RISK <40 mg/dl - HIGH CARDIOVASCULAR RISK Normal [facility] Comment on above: Performed By: #### T 7, CMP, TSH, LIPID ####[facility] [address] [id number]. Raul Pereira LDL CALC NORMAL SEE BELOW Normal The [facility] Comment on above: Result Comment: <100 mg/dl OPTIMAL 100 - 129 mg/dl NEAR OR ABOVE OPTIMAL 130 - 159 mg/dl BORDERLINE HIGH 160 - 189 mg/dl HIGH >190 mg/dl VERY HIGH Performed By: #### T 7, CMP, TSH, LIPID ####[facility] [address] [address]Dr. Aranzalan Pereira Triglyceride [Mass/Vol] 72 mg/dL Normal <=150 [facility] Comment on above: Performed By: #### T 7, CMP, TSH, LIPID ####[facility] [address] [address]Dr. Raul Pereira VLDL CALC 14.4 mg/dL Normal [facility] Comment on above: Performed By: #### T 7, CMP, TSH, LIPID ####[facility] [address] [address]Dr. Raul Pereira PROF 14(COMP METB)on 023 Albumin [Mass/Vol] 3.5 g/dL Normal 3.4-5.0 [facility] Comment on above: Performed By: #### T 7, CMP, TSH, LIPID ####[facility] [address] [address]Dr. Raul Pereira Albumin/Globulin [Mass ratio] 1.1 {ratio} Normal [facility] Comment on above: Performed By: #### T 7, CMP, TSH, LIPID ####[facility] [address] [address]Dr. Raul Pereira ALP [Catalytic activity/Vol] 92 U/L Normal 46-116 [facility] Comment on above: Performed By: #### T 7, CMP, TSH, LIPID ####[facility] [address] [address]Dr. Raul Pereira ALT [Catalytic activity/Vol] 17 U/L Normal 14-59 [facility] Comment on above: Performed By: #### T 7, CMP, TSH, LIPID ####[facility] [address] [address]Dr. Raul Pereira Anion gap [Moles/Vol] 10.0 mmol/L Normal [facility] Comment on above: Performed By: #### T 7, CMP, TSH, LIPID ####[facility] [address] [address]Dr. Raul Pereira AST [Catalytic activity/Vol] 17 U/L Normal 15-37 [facility] Comment on above: Performed By: #### T 7, CMP, TSH, LIPID ####[facility] [address] [id number]. Raul Pereira Bilirubin [Mass/Vol] 0.2 mg/dL Normal 0.2-1.0 [facility] Comment on above: Performed By: #### T 7, CMP, TSH, LIPID ####[facility] [address] [id number]. Raul Pereira Calcium [Mass/Vol] 8.8 mg/dL Normal 8.5-10.1 [facility] Comment on above: Performed By: #### T 7, CMP, TSH, LIPID ####[facility] [address] [address]Dr. Raul Pereira Chloride [Moles/Vol] 101 mmol/L Normal 98-107 [facility] Comment on above: Performed By: #### T 7, CMP, TSH, LIPID ####[facility] [address] [address]Dr. Raul Pereira CO2 [Moles/Vol] 29.4 mmol/L Normal 21.0-32.0 [facility] Comment on above: Performed By: #### T 7, CMP, TSH, LIPID ####[facility] [address] [address]Dr. Raul Pereira Creatinine [Mass/Vol] 0.50 mg/dL Critically low 0.55-1.02 [facility] Comment on above: Performed By: #### T 7, CMP, TSH, LIPID ####[facility] [address] [place], [place] [address]Dr. Raul Pereira EGFR-AF CO[place] RICAN >60 Normal >=60 [facility] Comment on above: Performed By: #### T 7, CMP, TSH, LIPID ####[facility] [address] [address]Dr. Raul Pereira EGFR-NON AF [place] R[place] >60 Normal >=60 [facility] Comment on above: Performed By: #### T 7, CMP, TSH, LIPID ####[facility] [address] [address]Dr. Raul Pereira Globulin (S) [Mass/Vol] 3.2 g/dL Normal [facility] Comment on above: Performed By: #### T 7, CMP, TSH, LIPID ####[facility] [address] [address]Dr. Raul Pereira Glucose [Mass/Vol] 88 mg/dL Normal 74-106 [facility] Comment on above: Performed By: #### T 7, CMP, TSH, LIPID ####[facility] [address] [address]Dr. Raul Pereira Potassium [Moles/Vol] 4.4 mmol/L Normal 3.5-5.1 [facility] Comment on above: Performed By: #### T 7, CMP, TSH, LIPID ####[facility] [address] [address]Dr. Raul Pereira Protein [Mass/Vol] 6.7 g/dL Normal 6.4-8.2 [facility] Comment on above: Performed By: #### T 7, CMP, TSH, LIPID ####[facility] [address] [address]Dr. Raul Pereira Sodium [Moles/Vol] 136 mmol/L Normal 136-145 [facility] Comment on above: Performed By: #### T 7, CMP, TSH, LIPID ####[facility] [address] [address]Dr. Raul Pereira Urea nitrogen [Mass/Vol] 12.0 mg/dL Normal 7.0-18.0 [facility] Comment on above: Performed By: #### T 7, CMP, TSH, LIPID ####[facility] [address] [address]Dr. Raul Pereira Urea nitrogen/Creatinine [Mass ratio] 24.0 mg/mg Normal [facility] Comment on above: Performed By: #### T 7, CMP, TSH, LIPID ####[facility] [address] [address]Dr. Raul Pereira TSHon 01-13-2023 TSH 1.623 uIU/mL Normal 0.358-3.740 [facility] Comment on above: Performed By: #### T 7, CMP, TSH, LIPID ####[facility] [address] [address]Dr. Raul Pereira VIT B12 AND FOLATEon 023 Cobalamin (Vitamin B12) [Mass/Vol] 872.0 pg/mL Normal 193.0-986.0 [facility] Comment on above: Performed By: #### F ETIBC, B12FOL, VITAD ####[facility] [address] [address]Dr. Raul Pereira FOLATE 21.20 ng/mL Normal 8.60-58.90 [facility] Comment on above: Performed By: #### F ETIBC, B12FOL, VITAD ####[facility] [address] [address]Dr. Raul Pereira VITAMIN D 25 OHon 01-13-2023 VIT D 25-OH 40.6 ng/mL Normal [facility] Comment on above: Performed By: #### F ETIBC, B12FOL, VITAD ####[facility] [address] [address]Dr. Raul Pereira VIT D RANGES SEE BELOW Normal [facility] Comment on above: Result Comment: <20 ng/mL Vit D deficient 20 - <30 ng/mL Vit D insufficient 30 - 100 ng/mL Vit D sufficient >100 ng/mL Potential Toxicity Performed By: #### F ETIBC, B12FOL, VITAD ####[facility] [address] [place] [address]Dr. Raul Pereira CBC AUTO DIFFon 01-10-2023 BASO # 0.1 103/ul Normal 0.0-0.1 [facility] Comment on above: Performed By: #### C VDTBH #### [facility] [address] [address] [address] Raul Pereira Basophils/100 WBC (Bld) 0.6 % Normal 0.2-2.0 [facility] Comment on above: Performed By: #### C VDTBH #### [facility] [address] [address] [address] Raul Pereira EO # 0.1 103/ul Normal 0.0-0.7 [facility] Comment on above: Performed By: #### C VDTBH #### [facility] [address] [place] [address] Dr. Raul Pereira Eosinophils/100 WBC (Bld) 1.3 % Normal 0.9-7.0 [facility] Comment on above: Performed By: #### C VDTBH #### [facility] [address] [place] [address] Dr. Raul Pereira Erythrocyte distribution width (RBC) [Ratio] 18.4 % Critically high 11.0-15.0 [facility] Comment on above: Performed By: #### C VDTBH #### [facility] [address] [place] [address] Dr. Raul Pereira Hematocrit (Bld) [Volume fraction] 37.8 % Normal 36.0-48.0 [facility] Comment on above: Performed By: #### C VDTBH #### [facility] [address] [place] [address] Dr. Raul Pereira Hemoglobin (Bld) [Mass/Vol] 11.6 g/dL Critically low 12.0-16.0 [facility] Comment on above: Performed By: #### C VDTBH #### [facility] [address] [place] [address] Dr. Raul Pereira IG # 0.02 10e3/ul Normal 0.00-0.03 [facility] Comment on above: Performed By: #### C VDTBH #### [facility] [address] [place] [address] Dr. Raul Pereira IG % 0.3 % Normal 0.0-0.5 [facility] Comment on above: Performed By: #### C VDTBH #### [facility] [address] [place] [address] Dr. Raul Pereira LYMPH # 1.7 103/ul Normal 1.2-3.8 [facility] Comment on above: Performed By: #### C VDTBH #### [facility] [address] [place] [address] Dr. Raul Pereira Lymphocytes/100 WBC (Bld) 21.0 % Normal 20.5-60.0 [facility] Comment on above: Performed By: #### C VDTBH #### [facility] [address] [place] [address] Dr. Raul Pereira MANUAL DIFF REQ NO Normal [facility] Comment on above: Performed By: #### C VDTBH #### [facility] [address] [place] [address] Dr. Raul Pereira MCH (RBC) [Entitic mass] 24.1 pg Critically low 26.7-34.0 [facility] Comment on above: Performed By: #### C VDTBH #### [facility] [address] [place] [address] Dr. Raul Pereira MCHC (RBC) [Mass/Vol] 30.7 g/dL Normal 29.9-35.2 [facility] Comment on above: Performed By: #### C VDTBH #### [facility] [address] [place] [address] Dr. Raul Pereira MCV (RBC) [Entitic vol] 78.6 fL Critically low 81.0-99.0 [facility] Comment on above: Performed By: #### C VDTBH #### [facility] [address] [place] [address] Dr. Raul Pereira MONO # 0.6 103/ul Normal 0.3-0.8 [facility] Comment on above: Performed By: #### C VDTBH #### [facility] [address] [place] [address] Dr. Raul Pereira Monocytes/100 WBC (Bld) 7.5 % Normal 1.7-12.0 [facility] Comment on above: Performed By: #### C VDTBH #### [facility] [address] [place] [address] Dr. Raul Pereira NEUT # 5.4 103/ul Normal 1.4-6.5 [facility] Comment on above: Performed By: #### C VDTBH #### [facility] [address] [address] [address] Raul Pereira Neutrophils/100 WBC (Bld) 69.3 % Normal 43.0-75.0 [facility] Comment on above: Performed By: #### C VDTBH #### [facility] [address] [address] [address] Raul Pereira Platelet mean volume (Bld) [Entitic vol] 9.0 fL Critically low 9.5-13.5 [facility] Comment on above: Performed By: #### C VDTBH #### [facility] [address] [address] [address] Raul Pereira PLT 516 103/ul Critically high 150-450 [facility] Comment on above: Performed By: #### C VDTBH #### [facility] [address] [place] [address] Dr. Raul Pereira RBC 4.81 106/ul Normal 4.20-5.40 [facility] Comment on above: Performed By: #### C VDTBH #### [facility] [address] [address] [address] Raul Pereira WBC 7.8 103/ul Normal 4.0-11.0 [facility] Comment on above: Performed By: #### C VDTBH #### [facility] [address] [address] [address] Raul Pereira CULTURE BLOODon 01-10-2023 Microscopic examination of blood, culture Culture Observations: NO GROWTH AT 5 DAYS. Normal [facility] Comment on above: Performed By: #### B [id number] #### [facility] [address] [address] [address] Raul Pereira Microscopic examination of blood, culture Culture Observations: NO GROWTH AT 5 DAYS. Normal [facility] Comment on above: Performed By: #### B [id number] ####[facility] [address] [address]Dr. Raul Pereira PROF 14(COMP METB)on 023 Albumin [Mass/Vol] 3.7 g/dL Normal 3.4-5.0 [facility] Comment on above: Performed By: #### C BC #### [facility] [address] [place] [address] Dr. Raul Pereira Albumin/Globulin [Mass ratio] 0.9 {ratio} Normal [facility] Comment on above: Performed By: #### C BC #### [facility] [address] [address] [address] Raul Pereira ALP [Catalytic activity/Vol] 105 U/L Normal 46-116 [facility] Comment on above: Performed By: #### C BC #### [facility] [address] [place] [address] Dr. Raul Pereira ALT [Catalytic activity/Vol] 18 U/L Normal 14-59 [facility] Comment on above: Performed By: #### C BC #### [facility] [address] [place] [address] Dr. Raul Pereira Anion gap [Moles/Vol] 10.8 mmol/L Normal [facility] Comment on above: Performed By: #### C BC #### [facility] [address] [place] [address] Dr. Raul Pereira AST [Catalytic activity/Vol] 21 U/L Normal 15-37 [facility] Comment on above: Performed By: #### C BC #### [facility] [address] [place] [address] Dr. Raul Pereira Bilirubin [Mass/Vol] 0.3 mg/dL Normal 0.2-1.0 [facility] Comment on above: Performed By: #### C BC #### [facility] [address] [place] [address] Dr. Raul Pereira Calcium [Mass/Vol] 9.1 mg/dL Normal 8.5-10.1 [facility] Comment on above: Performed By: #### C BC #### [facility] [address] [place] [address] Dr. Raul Pereira Chloride [Moles/Vol] 100 mmol/L Normal 98-107 [facility] Comment on above: Performed By: #### C BC #### [facility] [address] [address] [address] Raul Pereira CO2 [Moles/Vol] 30.8 mmol/L Normal 21.0-32.0 [facility] Comment on above: Performed By: #### C BC #### [facility] [address] [place] [address] Dr. Raul Pereira Creatinine [Mass/Vol] 0.58 mg/dL Normal 0.55-1.02 [facility] Comment on above: Performed By: #### C BC #### [facility] [address] [place] [address] Dr. Raul Pereira EGFR-AF [place] R[place] >60 Normal >=60 [facility] Comment on above: Performed By: #### C BC #### [facility] [address] [place] [address] Dr. Raul Pereira EGFR-NON AF [place] >60 Normal >=60 [facility] Comment on above: Performed By: #### C BC #### [facility] [address] [place] [address] Dr. Raul Pereira Globulin (S) [Mass/Vol] 4.1 g/dL Normal [facility] Comment on above: Performed By: #### C BC #### [facility] [address] [place] [address] Dr. Raul Pereira Glucose [Mass/Vol] 86 mg/dL Normal 74-106 [facility] Comment on above: Performed By: #### C BC #### [facility] [address] [place] [address] Dr. Raul Pereira Potassium [Moles/Vol] 4.6 mmol/L Normal 3.5-5.1 [facility] Comment on above: Performed By: #### C BC #### [facility] [address] [place] [address] Dr. Raul Pereira Protein [Mass/Vol] 7.8 g/dL Normal 6.4-8.2 [facility] Comment on above: Performed By: #### C BC #### [facility] [address] [place] [address] Dr. Raul Pereira Sodium [Moles/Vol] 137 mmol/L Normal 136-145 [facility] Comment on above: Performed By: #### C BC #### [facility] [address] [address] [address] Raul Pereira Urea nitrogen [Mass/Vol] 9.0 mg/dL Normal 7.0-18.0 [facility] Comment on above: Performed By: #### C BC #### [facility] [address] [address] [address] Raul Pereira Urea nitrogen/Creatinine [Mass ratio] 15.5 mg/mg Normal [facility] Comment on above: Performed By: #### C BC #### [facility] [address] [address] [address] Raul Pereira PREMA DOP LEG RTon [...] JESSICA LIPSCOMB Date: 2023-01-10 10:43 Normal [facility] Covid-19 PCR (CVDTB)on 11-18 SARS-CoV-2 (COVID-19) RNA IMELDA+probe Ql (Unsp spec) Not detected Normal NOT DETECTED [facility] Comment on above: Result Comment: This test is not yet approved or cleared by the [place] FDA. When there are no FDA-approved or cleared tests available, and other criteria are met, FDA can make tests available under an emergency access mechanism called an Emergency Use Authorization (EUA). The EUA for this test is supported by the Information Broker of Health and Human Service's (HHS's) declaration [...] SARS-CoV-2. Performed By: #### C VDTB #### [facility] [address] [place] [address] Dr. Raul Pereira CALCIUMon 12-03-2022 Calcium [Mass/Vol] 9.7 mg/dL Normal 8.5-10.1 [facility] Comment on above: Performed By: #### C VDTBH #### [facility] [address] [place] [address] Dr. Raul Pereira CREATININEon 12-03-2022 Creatinine [Mass/Vol] 0.53 mg/dL Critically low 0.55-1.02 [facility] Comment on above: Performed By: #### C BC #### [facility] [address] [place] [address] Dr. Raul Pereira EGFR-AF [place] R[place] >60 Normal >=60 [facility] Comment on above: Performed By: #### C BC #### [facility] [address] [place] [address] Dr. Raul Pereira EGFR-NON AF [place] R[place] >60 Normal >=60 [facility] Comment on above: Performed By: #### C BC #### [facility] [address] [place] [address] Dr. Raul Pereira Office Visiton 08-27-2022 Follow-up visit [id number] Lex Mejia rrmonica L 1960 F Date Provider Department Center 08/27/2022 Nella-MICAELA GUPTA [facility] SURG Second Fl No family history on file Level of Service:10629 PA POSTOP FOLLOW UP VISIT RELATED TO ORIGINAL PX Reason for Visit and Comments: Post-op [483] - Rhett is here today for a post op visit, s/p 08/16/22 JOSE Ortiz [facility] HISTOLOGY - TISSUE EXAMon 09 -30-2022 LAB AP CASE REPORT Normal [facility] Comment on above: Order Comment: Pre-o p diagnosis:Calculus of gallbladder without cholecystitis without obstruction [K80.20] Result Comment: Surg ical Pathology Case: [id number] Authorizing Provider: Micaela Gupta MD Collected: 08/16/2022 0842 Ordering Location: [facility] Main Operating Room Received: 08/16/2022 1001 Pathologist: Maricruz Warren MD Specimen: Gallbladder, GALLBLADDER Performed By: #### L [id number] ####[facility] ([facility])[address] [place] [address] LAB AP CLINICAL INFORMATION Normal [facility] Comment on above: Order Comment: Pre-o p diagnosis:Calculus of gallbladder without cholecystitis without obstruction [K80.20] Result Comment: Pre- op diagnosis: Calculus of gallbladder without cholecystitis without obstruction [K80.20] Performed By: #### L [id number] ####[facility] ([facility])[address] [place] [address] LAB AP GROSS DESCRIPTION A. Gallbladder. Normal [facility] Comment on above: Order Comment: Pre-o [...] 0.1 to 0.2 cm in maximum thickness. Floor Technician sections submitted as follows: Cassette 1: Cystic duct resection margin and neck Cassette 2: Body and fundus Ankit Koroma, Pathologists' Machine Welder Performed By: #### L [id number] ####[facility] ([facility])[address] [place] [address] LAB AP MICROSCOPIC DESCRIPTION Microscopic examination performed [facility] Comment on above: Order Comment: Pre-o p diagnosis:Calculus of gallbladder without cholecystitis without obstruction [K80.20] Performed By: #### L [id number] ####[facility] ([facility])[address] [place] [address] LAB AP REPORT FINAL DIAGNOSIS NARRATIVE Normal [facility] Comment on above: Order Comment: Pre-o p diagnosis:Calculus of gallbladder without cholecystitis without obstruction [K80.20] Result Comment: Gall bladder, cholecystectomy: - Cholelithiasis and cholesterolosis. Performed By: #### L [id number] ####[facility] ([facility] [facility] [address] HPon 08-16-2022 HP ----- ----- Attestation signed by Micaela Gupta MD at 08/16/2022 7:34 AM Attending Physician Statement I have discussed the case, including pertinent history and exam findings with Dr. Del Angel, microarray operations vice president and have personally seen the patient. I agree with the assessment, plan and orders as documented. [phone] pager [phone] phone ----- [facility] General Surgery HISTORY & PHYSICAL [...] Diagnosis Date Anxiety Arthritis Chronic bronchitis (CMS/FORMERLY [facility]) Depression DVT (deep venous thrombosis) (CMS/FORMERLY [facility]) Gall bladder disease GERD (gastroesophageal reflux disease) [...] content not included)... Normal [facility] NURSNOTEon 08-16-2022 NURSNOTE Stable. Pain minimal . DC criteria met. IV dc'd and patient getting dressed. 1155 Stable for discharge. Normal [facility] NURSNOTE DC instructions revi ewed with patient and Granddaughter, allowed time for questions, copy given. Normal [facility] NURSNOTE Report rec'd and car e assumed. No assessment changes. Pain minimal. Normal [facility] NURSNOTE 0920 Recovery called. [facility]22 OPNOTE CHOLECYSTECTOMY, LAPAROSCOPIC Operative Note Date: 08/16/2022 Location: [facility] OR Name: Rhett Mejia, : 1960, Diagnosis Pre-op Diagnosis * Calculus of gallbladder without cholecystitis without obstruction [K80.20] * History of gastric bypass [Z98.84] Post-op Diagnosis * Calculus of gallbladder without cholecystitis without obstruction [K80.20] * History of gastric bypass [Z98.84] Procedures CHOLECYSTECTOMY, LAPAROSCOPIC 99659 - [place] LAPS SURG CHOLECYSTECTOMY W/CHOLANGIOGRAPHY Surgeons * Micaela Gupta - Primary * Robyn Del Angel Procedure Summary Anesthesia: General ASA: III Estimated Blood Loss: 10 mL Total IV Fluids: 1000 mL Drains: * None in log * Specimens ID Source Type Tests Collected By Collected At Frozen? Priority Lab ID A Gallbladder Tissue HISTOLOGY - TISSUE EXAM Micaela Gupta MD 08/16/22 0842 No [id number] Description: GALLBLADDER Staff: Audit Officer: Zeny De La Cruz RN Scrub Person: [...] stable. Condition: stable Normal [facility] POCT GLUCOSE METER UNSOLICIT ED RESULTSon 08-16-2022 Glucose [Mass/Vol] 88 mg/dL Normal 70-105 [facility] Comment on above: Result Comment: epaw low Performed By: #### L [id number] #### [facility] ([facility]) [address] [place] [address] POCT SARS-COV-2 PCRon 2021 POC SARS-COV-2 ANTIGEN Negative Normal Negative [facility] Comment on above: Result Comment: ID [...] Certificate of Accreditation. Performed By: #### L [id number] ####[facility] ([facility])[address] [place] [address] Orders Onlyon 08-14-2022 Orders Only [id number] Lex Mejia rrmonica L 1960 F Date Provider Department Center 08/14/2022 [id number], HISTORICAL [facility] C No family history on file Normal [facility] [id number] 08-13-2022 [id number] NPO after [place] Must have a port cdl a driver to take you home and someone to stay for 24 hours after surgery. No jewelry. Hold the meds we spoke about: NSAIDS Take the meds we spoke about w/a sip of water DOS: GAPAPENTIN, NEXIUM, INHALER, CYMBALTA Bring insurance card and ID. LABS AND COVID TO BE DONE IN [place]. Normal [facility] CBC AUTO DIFFon 08-13-2022 BASO # 0.0 103/ul Normal 0.0-0.1 [facility] Comment on above: Performed By: #### C BC #### [facility] [address] [address] [address] Raul Pereira Basophils/100 WBC (Bld) 0.4 % Normal 0.2-2.0 [facility] Comment on above: Performed By: #### C BC #### [facility] [address] [address] [address] Raul Pereira EO # 0.1 103/ul Normal 0.0-0.7 [facility] Comment on above: Performed By: #### C BC #### [facility] [address] [place] [address] Dr. Raul Pereira Eosinophils/100 WBC (Bld) 1.2 % Normal 0.9-7.0 [facility] Comment on above: Performed By: #### C BC #### [facility] [address] [place] [address] Dr. Raul Pereira Erythrocyte distribution width (RBC) [Ratio] 18.6 % Critically high 11.0-15.0 [facility] Comment on above: Performed By: #### C BC #### [facility] [address] [place] [address] Dr. Raul Pereira Hematocrit (Bld) [Volume fraction] 39.1 % Normal 36.0-48.0 [facility] Comment on above: Performed By: #### C BC #### [facility] [address] [place] [address] Dr. Raul Pereira Hemoglobin (Bld) [Mass/Vol] 12.5 g/dL Normal 12.0-16.0 [facility] Comment on above: Performed By: #### C BC #### [facility] [address] [place] [address] Dr. Raul Pereira IG # 0.03 10e3/ul Normal 0.00-0.03 [facility] Comment on above: Performed By: #### C BC #### [facility] [address] [place] [address] Dr. Raul Pereira IG % 0.4 % Normal 0.0-0.5 [facility] Comment on above: Performed By: #### C BC #### [facility] [address] [place] [address] Dr. Raul Pereira LYMPH # 2.0 103/ul Normal 1.2-3.8 [facility] Comment on above: Performed By: #### C BC #### [facility] [address] [place] [address] Dr. Raul Pereira Lymphocytes/100 WBC (Bld) 27.2 % Normal 20.5-60.0 [facility] Comment on above: Performed By: #### C BC #### [facility] [address] [place] [address] Dr. Raul Pereira MANUAL DIFF REQ NO Normal [facility] Comment on above: Performed By: #### C BC #### [facility] [address] [place] [address] Dr. Raul Pereira MCH (RBC) [Entitic mass] 27.2 pg Normal 26.7-34.0 [facility] Comment on above: Performed By: #### C BC #### [facility] [address] [place] [address] Dr. Raul Pereira MCHC (RBC) [Mass/Vol] 32.0 g/dL Normal 29.9-35.2 [facility] Comment on above: Performed By: #### C BC #### [facility] [address] [place] [address] Dr. Raul Pereira MCV (RBC) [Entitic vol] 85.2 fL Normal 81.0-99.0 [facility] Comment on above: Performed By: #### C BC #### [facility] [address] [place] [address] Dr. Raul Pereira MONO # 0.7 103/ul Normal 0.3-0.8 [facility] Comment on above: Performed By: #### C BC #### [facility] [address] [place] [address] Dr. Raul Pereira Monocytes/100 WBC (Bld) 9.3 % Normal 1.7-12.0 [facility] Comment on above: Performed By: #### C BC #### [facility] [address] [place] [address] Dr. Raul Pereira NEUT # 4.4 103/ul Normal 1.4-6.5 [facility] Comment on above: Performed By: #### C BC #### [facility] [address] [address] [address] Raul Pereira Neutrophils/100 WBC (Bld) 61.5 % Normal 43.0-75.0 [facility] Comment on above: Performed By: #### C BC #### [facility] [address] [place] [address] Dr. Raul Pereira Platelet mean volume (Bld) [Entitic vol] 8.7 fL Critically low 9.5-13.5 [facility] Comment on above: Performed By: #### C BC #### [facility] [address] [place] [address] Dr. Raul Pereira PLT 387 103/ul Normal 150-450 [facility] Comment on above: Performed By: #### C BC #### [facility] [address] [place] [address] Dr. Raul Pereira RBC 4.59 106/ul Normal 4.20-5.40 [facility] Comment on above: Performed By: #### C BC #### [facility] [address] [place] [address] Dr. Raul Pereira WBC 7.2 103/ul Normal 4.0-11.0 [facility] Comment on above: Performed By: #### C BC #### [facility] [address] [place] [address] Dr. Raul Pereira Covid-19 PCR (CVDTB)on 07-19 SARS-CoV-2 (COVID-19) RNA IMELDA+probe Ql (Unsp spec) Not detected Normal NOT DETECTED [facility] Comment on above: Result Comment: This test is not yet approved or cleared by the [place] FDA. When there are no FDA-approved or cleared tests available, and other criteria are met, FDA can make tests available under an emergency access mechanism called an Emergency Use Authorization (EUA). The EUA for this test is supported by the Information Broker of Health and Human Service's (HHS's) declaration [...] SARS-CoV-2. Performed By: #### C VDTB #### [facility] [address] [place] [address] Dr. Raul Pereira PROF CHEM 8 (BAS METB)on Anion gap [Moles/Vol] 11.5 mmol/L Normal [facility] Comment on above: Performed By: #### C BC #### [facility] [address] [place] [address] Dr. Raul Pereira Calcium [Mass/Vol] 9.5 mg/dL Normal 8.5-10.1 [facility] Comment on above: Performed By: #### C BC #### [facility] [address] [place] [address] Dr. Raul Pereira Chloride [Moles/Vol] 101 mmol/L Normal 98-107 [facility] Comment on above: Performed By: #### C BC #### [facility] [address] [place] [address] Dr. Raul Pereira CO2 [Moles/Vol] 29.6 mmol/L Normal 21.0-32.0 [facility] Comment on above: Performed By: #### C BC #### [facility] [address] [place] [address] Dr. Raul Pereira Creatinine [Mass/Vol] 0.65 mg/dL Normal 0.55-1.02 [facility] Comment on above: Performed By: #### C BC #### [facility] [address] [place] [address] Dr. Raul Pereira EGFR-AF COSTA RICAN >60 Normal >=60 [facility] Comment on above: Performed By: #### C BC #### [facility] [address] [address] [address] Raul Pereira EGFR-NON AF [place] R[place] >60 Normal >=60 [facility] Comment on above: Performed By: #### C BC #### [facility] [id number] Raul Pereira Glucose [Mass/Vol] 104 mg/dL Normal 74-106 [facility] Comment on above: Performed By: #### C BC #### [facility] [address] [address] [address] Raul Pereira Potassium [Moles/Vol] 4.1 mmol/L Normal 3.5-5.1 [facility] Comment on above: Performed By: #### C BC #### [facility] [address] [address] [address] Raul Pereira Sodium [Moles/Vol] 138 mmol/L Normal 136-145 [facility] Comment on above: Performed By: #### C BC #### [facility] [address] [address] [address] Raul Pereira Urea nitrogen [Mass/Vol] 11.0 mg/dL Normal 7.0-18.0 [facility] Comment on above: Performed By: #### C BC #### [facility] [address] [address] [address] Raul Pereira Urea nitrogen/Creatinine [Mass ratio] 16.9 mg/mg Normal [facility] Comment on above: Performed By: #### C BC #### [facility] [id number] Raul Pereira Office Visiton 08-06-2022 Follow-up visit [id number] Lex Mejia 1960 F Date Provider Department Center 08/06/2022 Nella-MICAELA GUPTA [facility] SURG Second Fl No family history on file Level of Service:25289 PA OFFICE/OUTPATIENT ESTABLISHED LOW MDM 20-29 MIN Reason for Visit and Comments: Consult [484] - Rhett is here for a gallbladder consult. Rhett also c/o swelling in right leg with pain in calf. Normal [facility] PROTIME-INRon 08-06-2022 INR IN PPP BY COAGULATION ASSAY 0.89 Low 0.90-1.10 [facility] Comment on above: Result Comment: ACCC [...] 1995;108:[id number]. Performed By: #### L [id number] #### [facility] ([facility]) [address] [place] [address] PROTHROMBIN TIME (PT) IN PPP BY COAGULATION ASSAY 12.1 Seconds Low 12.3-14.8 [facility] Comment on above: Performed By: #### L [id number] #### [facility] ([facility]) [address] [place] [address] CT ABD/PELVIS WO CONon 07-24 CT ABD/PELVIS [...] by: JESSICA LIPSCOMB Date: 2022-07-24 17:21 Normal [facility] HEPATOBILIARY SCAN W EFon 07-18-2022 [place] HEPATOBILIARY SCAN W EF EXAMINATION: NM HEPATOBILIARY [...] MEAGHAN SKINNER Date: 2022-07-18 10:22 Normal [facility] CBC AUTO DIFFon 07-13-2022 BASO # 0.0 103/ul Normal 0.0-0.1 [facility] Comment on above: Performed By: #### C BC #### [facility] [address] [place] [address] Dr. Raul Pereira Basophils/100 WBC (Bld) 0.5 % Normal 0.2-2.0 [facility] Comment on above: Performed By: #### C BC #### [facility] [address] [place] [address] Dr. Raul Pereira EO # 0.1 103/ul Normal 0.0-0.7 [facility] Comment on above: Performed By: #### C BC #### [facility] [address] [place] [address] Dr. Raul Pereira Eosinophils/100 WBC (Bld) 0.9 % Normal 0.9-7.0 [facility] Comment on above: Performed By: #### C BC #### [facility] [address] [place] [address] Dr. Raul Pereira Erythrocyte distribution width (RBC) [Ratio] 20.2 % Critically high 11.0-15.0 [facility] Comment on above: Performed By: #### C BC #### [facility] [address] [place] [address] Dr. Raul Pereira Hematocrit (Bld) [Volume fraction] 41.1 % Normal 36.0-48.0 [facility] Comment on above: Performed By: #### C BC #### [facility] [address] [place] [address] Dr. Raul Pereira Hemoglobin (Bld) [Mass/Vol] 13.2 g/dL Normal 12.0-16.0 [facility] Comment on above: Performed By: #### C BC #### [facility] [address] [place] [address] Dr. Raul Pereira IG # 0.05 10e3/ul Critically high 0.00-0.03 [facility] Comment on above: Performed By: #### C BC #### [facility] [address] [place] [address] Dr. Raul Pereira IG % 0.6 % Critically high 0.0-0.5 [facility] Comment on above: Performed By: #### C BC #### [facility] [address] [place] [address] Dr. Raul Pereira LYMPH # 1.4 103/ul Normal 1.2-3.8 [facility] Comment on above: Performed By: #### C BC #### [facility] [address] [place] [address] Dr. Raul Pereira Lymphocytes/100 WBC (Bld) 17.3 % Critically low 20.5-60.0 [facility] Comment on above: Performed By: #### C BC #### [facility] [address] [place] [address] Dr. Raul Pereira MANUAL DIFF REQ NO Normal [facility] Comment on above: Performed By: #### C BC #### [facility] [address] [place] [address] Dr. Raul Pereira MCH (RBC) [Entitic mass] 27.3 pg Normal 26.7-34.0 [facility] Comment on above: Performed By: #### C BC #### [facility] [address] [place] [address] Dr. Raul Pereira MCHC (RBC) [Mass/Vol] 32.1 g/dL Normal 29.9-35.2 [facility] Comment on above: Performed By: #### C BC #### [facility] [address] [place] [address] Dr. Raul Pereira MCV (RBC) [Entitic vol] 84.9 fL Normal 81.0-99.0 [facility] Comment on above: Performed By: #### C BC #### [facility] [address] [place] [address] Dr. Raul Pereira MONO # 0.8 103/ul Normal 0.3-0.8 [facility] Comment on above: Performed By: #### C BC #### [facility] [address] [place] [address] Dr. Raul Pereira Monocytes/100 WBC (Bld) 10.0 % Normal 1.7-12.0 [facility] Comment on above: Performed By: #### C BC #### [facility] [address] [place] [address] Dr. Raul Pereira NEUT # 5.8 103/ul Normal 1.4-6.5 [facility] Comment on above: Performed By: #### C BC #### [facility] [address] [place] [address] Dr. Raul Pereira Neutrophils/100 WBC (Bld) 70.7 % Normal 43.0-75.0 [facility] Comment on above: Performed By: #### C BC #### [facility] [address] [place] [address] Dr. Raul Pereira Platelet mean volume (Bld) [Entitic vol] 9.1 fL Critically low 9.5-13.5 [facility] Comment on above: Performed By: #### C BC #### [facility] [address] [place] [address] Dr. Raul Pereira PLT 358 103/ul Normal 150-450 [facility] Comment on above: Performed By: #### C BC #### [facility] [address] [place] [address] Dr. Raul Pereira RBC 4.84 106/ul Normal 4.20-5.40 [facility] Comment on above: Performed By: #### C BC #### [facility] [address] [place] [address] Dr. Raul Pereira WBC 8.1 103/ul Normal 4.0-11.0 [facility] Comment on above: Performed By: #### C BC #### [facility] [address] [place] [address] Dr. Raul Pereira LIPASEon 07-13-2022 Lipase [Catalytic activity/Vol] 47.0 U/L Critically low 73.0-393.0 [facility] Comment on above: Performed By: #### C BC #### [facility] [address] [place] [address] Dr. Raul Pereira PROF 14(COMP METB)on 022 Albumin [Mass/Vol] 3.6 g/dL Normal 3.4-5.0 [facility] Comment on above: Performed By: #### C BC #### [facility] [address] [place] [address] Dr. Raul Pereira Albumin/Globulin [Mass ratio] 1.0 {ratio} Normal [facility] Comment on above: Performed By: #### C BC #### [facility] [address] [place] [address] Dr. Raul Pereira ALP [Catalytic activity/Vol] 88 U/L Normal 46-116 [facility] Comment on above: Performed By: #### C BC #### [facility] [address] [place] [address] Dr. Raul Pereira ALT [Catalytic activity/Vol] 16 U/L Normal 14-59 [facility] Comment on above: Performed By: #### C BC #### [facility] [address] [place] [address] Dr. Raul Pereira Anion gap [Moles/Vol] 13.2 mmol/L Normal [facility] Comment on above: Performed By: #### C BC #### [facility] [address] [place] [address] Dr. Raul Pereira AST [Catalytic activity/Vol] 15 U/L Normal 15-37 [facility] Comment on above: Performed By: #### C BC #### [facility] [address] [place] [address] Dr. Raul Pereira Bilirubin [Mass/Vol] 0.2 mg/dL Normal 0.2-1.0 [facility] Comment on above: Performed By: #### C BC #### [facility] [address] [place] [address] Dr. Raul Pereira Calcium [Mass/Vol] 9.5 mg/dL Normal 8.5-10.1 [facility] Comment on above: Performed By: #### C BC #### [facility] [address] [place] [address] Dr. Raul Pereira Chloride [Moles/Vol] 100 mmol/L Normal 98-107 [facility] Comment on above: Performed By: #### C BC #### [facility] [address] [place] [address] Dr. Raul Pereira CO2 [Moles/Vol] 28.0 mmol/L Normal 21.0-32.0 [facility] Comment on above: Performed By: #### C BC #### [facility] [address] [place] [address] Dr. Raul Pereira Creatinine [Mass/Vol] 0.78 mg/dL Normal 0.55-1.02 [facility] Comment on above: Performed By: #### C BC #### [facility] [address] [place] [address] Dr. Raul Pereira EGFR-AF [place] >60 Normal >=60 [facility] Comment on above: Performed By: #### C BC #### [facility] [address] [place] [address] Dr. Raul Pereira EGFR-NON AF [place] >60 Normal >=60 [facility] Comment on above: Performed By: #### C BC #### [facility] [address] [place] [address] Dr. Raul Pereira Globulin (S) [Mass/Vol] 3.6 g/dL Normal [facility] Comment on above: Performed By: #### C BC #### [facility] [address] [place] [address] Dr. Raul Pereira Glucose [Mass/Vol] 86 mg/dL Normal 74-106 [facility] Comment on above: Performed By: #### C BC #### [facility] [address] [place] [address] Dr. Raul Pereira Potassium [Moles/Vol] 4.2 mmol/L Normal 3.5-5.1 [facility] Comment on above: Performed By: #### C BC #### [facility] [address] [place] [address] Dr. Raul Pereira Protein [Mass/Vol] 7.2 g/dL Normal 6.4-8.2 [facility] Comment on above: Performed By: #### C BC #### [facility] [address] [place], [place] [address] Dr. Raul Pereira Sodium [Moles/Vol] 137 mmol/L Normal 136-145 [facility] Comment on above: Performed By: #### C BC #### [facility] [address] [place], [place] [address] Dr. Raul Pereira Urea nitrogen [Mass/Vol] 11.0 mg/dL Normal 7.0-18.0 [facility] Comment on above: Performed By: #### C BC #### [facility] [address] [place], [place] [address] Dr. Raul Pereira Urea nitrogen/Creatinine [Mass ratio] 14.1 mg/mg Normal [facility] Comment on above: Performed By: #### C BC #### [facility] [address] [place], [place] [address] Dr. Raul Pereira US SINGLE QUAD RT [facility] US SINGLE QUAD RT [facility] EXAM: US SINGLE QUAD RT UPPER 07/13/2022 [...] MICAH ROSAS Date: 2022-07-13 16:33 Normal [facility] Cov[facility]-19 [facility]on 06-17 SARS-CoV-2 (COVID-19) RNA IMELDA+probe Ql (Unsp spec) Not detected Normal NOT DETECTED [facility] Comment on above: Result Comment: This test is not yet approved or cleared by the [place] FDA. When there are no FDA-approved or cleared tests available, and other criteria are met, FDA can make tests available under an emergency access mechanism called an Emergency Use Authorization (EUA). The EUA for this test is supported by the [place] of Health and Human Service's (HHS's) declaration [...] consistent with SARS-CoV-2. Performed By: #### C [facility] #### [facility] [address] [place] [address] Dr. aRul Pereira Endoscopy Reporton 8 Endoscopy Report [id number] Date: 02/24/2018 Room #: Z0 Date of : 1960 PROCEDURE NOTEATTENDING: Xin Beasley M.D.PROCEDURE PERFORMED: EGD.INVENTORY CHECKER: Dr. Noland.SEDATION:1. Versed 10 mg.2. Fentanyl 250 [...] 02/24/2018/09:53 Kiara/Ruddy Noland M.D.Date Trans: 02/24/2018 12:13 P/Aditya_JN:[id number] cc: Napoleon Rahman M.D. [address] [facility] [address] Normal [facility] Endoscopy Report MR#: [id number] Pt. Name: Rhett Mejia Surgery Date: 02/24/2018 Room #: Z0 Date of : 1960 PROCEDURE NOTEATTENDING: Xin Beasley M.D.PROCEDURE PERFORMED: Colonoscopy and polypectomy.INVENTORY CHECKER: Ruddy Noland M.D.SEDATION: Versed 10 mg and [...] 02/24/2018/09:57 Kiara/Ruddy Noland M.D.Date Trans: 02/24/2018 10:12 A/Aditya_JN:[id number] cc: Napoleon Rahman M.D. [address] [facility] Kiara [facility] [address] Normal [facility] POC GLUCOSE LABon 02-24-2018 Glucose mass conc 87 mg/dL Normal 70-100 [facility] Comment on above: Performed By: #### 8 [id number] ####[address] Vital Signs Date Time Vital Sign Value Performing Clinician Facility NEGATED: Highlighted row BMI (Body Mass Index) [facility] NEGATED: Highlighted row Body Temperature [facility] NEGATED: Highlighted row Body weight [facility] NEGATED: Highlighted row BP Diastolic [facility] NEGATED: Highlighted row BP Systolic [facility] NEGATED: Highlighted row Height Gene [facility] NEGATED: Highlighted row Pulse (Heart Rate) [facility] NEGATED: Highlighted row Pulse Oximetry [facility] NEGATED: Highlighted row Respiratory Rate [facility] Encounters Encounter Date Encounter Type Care Provider Facility Start: 08-16-2024 End: 08-16-2024 ambulatory Monica Malagon MD Facility:[facility] Start: 08-02-2024 End: 08-02-2024 ambulatory Monica Malagon MD Facility: [facility] Start: 07-30-2024 ambulatory Cristian Johnson acility:[facility] Start: 06-21-2024 End: 06-21-2024 ambulatory Monica Malagon MD Facility:[facility] Start: 09-22-2023 End: 09-22-2023 ambulatory Monica Malagon MD Facility:[facility] Start: 04-08-[address] NAPOLEON RAHMAN [...] abnormal findings DR NAPOLEON RAHMAN . [facility] Start: 01-31-2023 End: 02-01-2023 Encounter for [...] laboratory examination DR BETHEL LITTLE . [facility] Start: 12-13-2022 End: 12-14-[address] [...] . Facility:[facility] Start: 08-27-2022 End: 08-27-2022 ambulatory [facility] Start: 08-16-2022 End: 08-16-2022 ambulatory [facility] Start: 08-15-2022 Encounter for other preprocedural examination DR MICAELA GUPTA [facility] Start: 08-15-2022 Encounter for preprocedural laboratory examination DR MICAELA GUPTA [facility] Start: 08-13-2022 End: 08-14-[address] MICAELA GUPTA Facility:[facility] Start: 08-13-2022 End: 08-14-2022 Encounter for other preprocedural examination DR MICAELA GUPTA Facility:[facility] Start: 08-06-2022 End: 08-07-2022 ambulatory [facility] Start: 08-06-2022 End: 08-06-2022 ambulatory [facility] Start: 08-06-2022 ambulatory [facility] Start: 07-24-2022 End: 07-25-[address] [...] Start: 02-24-2018 End: 02-25-2018 Ambulatory XIN BEASLEY Facility:[facility] Start: 10-19-2014 End: 10-19-2014 Patient encounter procedure [facility] Start: 12-22-2013 End: 12-22-2013 Departed Referred [facility] Start: 10-12-2001 End: 10-12-2001 Patient encounter procedure [facility] Start: 09-01-2001 End: 09-01-2001 Patient encounter procedure [facility] Start: 08-26-2001 End: 08-26-2001 Patient encounter procedure [facility] Start: 03-21-1999 End: 03-28-1999 Evaluation and management of inpatient [facility] Start: 09-07-1997 End: 09-07-1997 Admission to day surgery [facility] Start: 07-21-1997 End: 07-21-1997 Emergency department patient visit [facility] Procedures Date Procedure Procedure Detail Performing Clinician Start: 02-24-2018 [facility] flx w/removal lesion by hot bx forceps XIN BEASLEY Payers Date Payer Category Payer Unknown 2015 Medicare 1960 Self-pay 1960 Self-pay [id number] 1960 Unknown [id number] 1960 Unknown [id number] 2.16.84 0.1.626738.3.579.2.593 1960 Unknown [id number] 2.16.84 0.1.837112.3.579.2.593 1960 Unknown [id number] 2.16.84 0.1.412045.3.579.2.593 1959 Unknown [id number] 2.16.84 0.1.052943.3.579.2.593 1959 Unknown [id number] 2.16.84 0.1.222425.3.579.2.593 1959 Unknown [id number] 2.16.84 0.1.884920.3.579.2.593 1959 Unknown [id number] 2.16.84 0.1.626262.3.579.2.593 1959 Unknown [id number] 2.16.84 0.1.704519.3.579.2.593 1959 Unknown [id number] 2.16.84 0.1.852094.3.579.2.593 1959 Unknown [id number] 2.16.84 0.1.523369.3.579.2.593 1959 Unknown [id number] 2.16.84 0.1.236193.3.579.2.593 1959 Unknown [id number] 2.16.84 0.1.322208.3.579.2.593 1959 Unknown [id number] 2.16.84 0.1.289008.3.579.2.593 1959 Unknown [id number] 2.16.84 0.1.229808.3.579.2.593 1959 Unknown [id number] 2.16.84 0.1.668000.3.579.2.593 1959 Unknown [id number] 2.16.84 0.1.987442.3.579.2.593 1959 Unknown [id number] 2.16.84 0.1.498026.3.579.2.593 1959 Unknown [id number] 2.16.84 0.1.809337.3.579.2.593 1959 Unknown [id number] 2.16.84 0.1.094263.3.579.2.593 1959 Unknown [id number] 2.16.84 0.1.789337.3.579.2.593 1959 Unknown [id number] 2.16.84 0.1.233800.3.579.2.593 1959 Unknown [id number] 2.16.84 0.1.552587.3.579.2.593 1959 Unknown [id number] 2.16.84 0.1.172885.3.579.2.593 1959 Unknown [id number] 2.16.84 0.1.654431.3.579.2.593 1959 Unknown [id number] 2.16.84 0.1.215380.3.579.2.593 1959 Unknown [id number] 2.16.84 0.1.760604.3.579.2.593 1959 Unknown [id number] 2.16.84 0.1.478648.3.579.2.593 1959 Unknown [id number] 2.16.84 0.1.967881.3.579.2.593 1959 Unknown [id number] 2.16.84 0.1.960620.3.579.2.593 1959 Unknown [id number] 2.16. 840.1.922567.3.579.2.196 1959 Unknown [id number] 2.16. 840.1.764343.3.579.2.196 1959 Unknown [id number] 2.16. 840.1.973881.3.579.2.196 1959 Unknown [id number] 2.16. 840.1.509947.3.579.2.196 Medicare [id number] Unknown [id number] Unknown [id number] 2.16.84 0.1.584701.3.579.2.593 Unknown [id number] 2.16.8 40.1.035115.3.579.2.531 Clinical Notes 05-15-2022 to 02-18-2023 Note Date [...] our patients to inform us about any [id number]-cxc-[id number] medications or herbal remedies/nutritional supplements/alternative remedies. 2. [...] options with their primary care provider. [facility] 01-16-2023 Note CONSULTATION CONSULTATION DATE: 01/16/2023 [...] up in the clinic post epidural. [facility] 12-04-2022 Note CONSULTATION CONSULTATION DATE: 12/04/2022 [...] in the office after the procedure. [facility] 11-15-2022 Note CONSULTATION PROCEDURE DATE: 11/15/2022 [...] the office following her RFA procedure. [facility] 11-15-2022 Note CONSULTATION CONSULTATION DATE: 11/15/2022 [...] measures such as heat and stretches. [facility] 08-29-2022 Note CONSULTATION PROCEDURE DATE: 08/29/2022 [...] pattern. Patient tolerated the procedure well. [facility] 08-29-2022 Note CONSULTATION CONSULTATION DATE: 08/29/2022 [...] up in the office post procedure. [facility] 08-29-2022 Note CONSULTATION CONSULTATION DATE: 08/29/2022 ADDENDUM: Addendum to peer plan: We will repeat radiofrequency ablation starting on the right side and subsequently moving to the left at T11, T12 and L1, L2. [facility] 08-27-2022 Note Subjective Patient ID: Rhett Mjeia is a 62 y.o. female who presents [...] No follow-ups on file. [facility] 08-16-2022 Note Patient: Rhett rousseau Procedure Summary Date: 08/16/22 Room / Location: [facility] OPERATING ROOM 01 / [facility] Operating Room Anesthesia Start: 734 Anesthesia [...] events for this encounter. [facility] 08-16-2022 Note Airway Date/Time: 08/16/2022 7:44 AM Urgency: elective Airway not difficult General Information and Staff Patient location during procedure: OR Anesthesiologist: Cassi Velez MD Resident/PHLEBOTOMY COORDINATOR/CAA: LEONARD Canales Performed: resident/PHLEBOTOMY COORDINATOR/CAA Indications and Patient Condition Indications for airway [...] Dentures to Circ RN [facility] 08-16-2022 Note Patient: Rhett rousseau Procedure Information Date/Time: 08/16/22729 Procedure: CHOLECYSTECTOMY, LAPAROSCOPIC, WITH INTRAOPERATIVE CHOLANGIOGRAM, WITH LAPAROTOMY IF INDICATED REQ BRADEREJE OR MANDO HUERTA MAUK, WOODSON - C-ARM AVAIL STAFF REQUESTS: LENIN DE LA CRUZ Location: [facility] OPERATING ROOM 01 / [facility] Operating Room Surgeons: Micaela Gupta MD [...] CAA. Additional Equipment Requests [facility] 08-06-2022 Note Subjective Patient ID: Rhett [...] No follow-ups on file. [facility] 08-06-2022 Note Subjective Patient ID: Rhett [...] No follow-ups on file. [facility] 06-12-2022 Note CONSULTATION PROCEDURE DATE: 06/12/2022 [...] The patient tolerated the procedure well. [facility] 06-12-2022 Note CONSULTATION CONSULTATION DATE: 06/12/2022 [...] agrees to the plan of care. [facility] 05-15-2022 Note CONSULTATION CONSULTATION DATE: 05/15/2022 [...] Patient agrees with the plan of care. [facility] Signed and Approved by: RUBY RAMIREZ . 05/16/2022 13:38:00 [facility] 05-15-2022 Note CONSULTATION PROCEDURE DATE: 05/15/2022 PREOPERATIVE [...] will be followed up in the office. [facility] Signed and Approved by: RUBY RAMIREZ . 05/16/2022 13:38:00 [facility] Summary Purpose Family History No Family History Records FoundNo Family History Records FoundNo Family History Records FoundNo Family History Records FoundNo Family History Records Found Advance Directives No Advanced Directives Records FoundNo Advanced Directives Records FoundNo Advanced Directives Records FoundNo Advanced Directives Records FoundNo Advanced Directives Records Found Additional Source Comments INFORMATION SOURCE (unrecogn ized section and content) DATE CREATED AUTHOR 05/07/2018 [facility] DATE CREATED AUTHOR AUTHOR'S ORGANIZ ATION 09/26/2022 [facility] DATE CREATED AUTHOR AUTHOR'S ORGANIZ ATION 03/28/2023 [facility] DATE CREATED AUTHOR AUTHOR'S ORGANIZ ATION 08/01/2024 [facility] DATE CREATED AUTHOR AUTHOR'S ORGANIZ ATION 08/20/2024 [facility] FOR RECORDS PERTAINING TO PATIENTS WHO [...] BE BASED ON THE PRIMARY CLINICAL RECORDS. [facility] [employer] provides no warranty or guarantee of the accuracy or completeness of information in this document.
--- NOTE | 2024-09-15 11:38 | P.CN_ITS ---
Consult Note: HPI Data of Consult Patient: known to practice within the last 3 years Requesting Physician: Jennie Rowe NP Primary Care Provider: Ke Rahman MD Consult Narrative Reason for consult: f/u Narrative: Vida mason pleasant 63 year old female presents for evaluation and management of chronic neck mid back and low back pain. Patients PCP manages most of her medications, we prescribe flexeril 5-10mg TID PRN which she utilizes with benefit. patient has completed a provider guided HEP greater than 6 weeks without benefit, continues to engage in HEP as tolerated. recently underwent bilateral L3-4 TFESI with 80-90% improvement in lumbar stenosis with NC symptoms per pt. hx of stenosis and DDD of cervical spine at multiple levels. recently underwent bilateral C5/6 TFESI with 80-90% improvement ongoing in cervical radiculopathy. Patient would like to address chronic low back/sacral pain today, hx of benefit to coccygeal RFAs but no longer covered by insurance. pt denies numbness tingling weakness to BLE. low back pain 8/10 increasing to 10/10 with standing walking and activity. cc:: CC: Jennie Rowe NP Review of Systems ROS Status of ROS 10 or more systems reviewed and unremark able except as noted in history and below Musculoskeletal Reports: back pain, neck pain and joint pain [facility] Medical History (Updated 08/25/24 @ 11:11 by Jennie Rowe NP) Upper back pain ?M54.9 - Dorsalgia, unspecified (ICD-10) Back pain ?M54.9 - Dorsalgia, unspecified (ICD-10) Neck pain ?M54.2 - Cervicalgia (ICD-10) Suicidal behavior ?R45.89 - Other symptoms and signs involving emotional state (ICD-10) Panic attack ?F41.0 - Panic disorder [episodic paroxysmal anxiety] (ICD-10) Depressed ?F32.A - Depression, unspecified (ICD-10) Anxiety ?F41.9 - Anxiety disorder, unspecified (ICD-10) Hearing deficit ?H91.90 - Unspecified hearing loss, unspecified ear (ICD-10) Acid reflux ?K21.9 - Gastro-esophageal reflux disease without esophagitis (ICD-10) Left thyroid nodule ?E04.1 - Nontoxic single thyroid nodule (ICD-10) Smoker ?F17.200 - Nicotine dependence, unspecified, uncomplicated (ICD-10) Asthmatic bronchitis ?J45.909 - Unspecified asthma, uncomplicated (ICD-10) Surgical History History of cholecystectomy ?Z90.49 - Acquired absence of other specified parts of digestive tract (ICD- 10) H/O discectomy ?Z98.890 - Other specified postprocedural states (ICD-10) H/O: hysterectomy ?Z90.710 - Acquired absence of both cervix and uterus (ICD-10) Gastric bypass status for obesity ?Z98.84 - Bariatric surgery status (ICD-10) Meds Home Medications and Allergies Home Medications ?Medication ?Instructions ?Recorded ?Confirmed ?Type buprenorphine 10 mcg/hour weekly 1 patch transdermal QWEEK 05/01/23 09/06/24 History transdermal patch (Butrans) calcium 600 mg (as cap PO .QD 05/01/23 History carbonate)-vitamin D3 5 mcg (200 unit) capsule (Calcium 600 + D(3)) cyclobenzaprine 5 mg tablet 5 mg PO TID 05/01/23 09/06/24 History dextroamphetamine-amphetamine 20 20 mg PO .QD 05/01/23 09/06/24 History mg tablet diclofenac sodium 1 % topical gel 4 g topical QID 05/01/23 09/06/24 History diclofenac sodium 75 mg 75 mg PO .QD 05/01/23 09/06/24 History tablet,delayed release duloxetine 60 mg capsule,delayed 120 mg PO DAILY 05/01/23 09/06/24 History release (Cymbalta) esomeprazole magnesium 20 mg 40 mg PO DAILY 05/01/23 09/06/24 History capsule,delayed release (Nexium) gabapentin 600 mg tablet 600 mg PO TID 05/01/23 09/06/24 History lidocaine 5 % topical ointment 1 applic 05/01/23 History vitamin B complex (Complex B-100 1 tab PO DAILY 05/01/23 09/06/24 History tablet,extended release) ziprasidone HCl 20 mg capsule 20 mg PO .HS 05/01/23 09/06/24 History albuterol sulfate 2.5 mg/3 mL 2.5 mg 06/21/24 History (0.083 %) solution for nebulization diazepam 10 mg tablet mg 09/06/24 History Allergies Allergy/AdvReac Type Severity Reaction Status Date / Time iodine Allergy unknown Verified 09/06/24 08:28 latex Allergy Unknown Verified 09/06/24 08:28 soybean Allergy Unknown Verified 09/06/24 08:28 Sulfa (Sulfonamide Allergy unknown Verified 09/06/24 08:28 Antibiotics) IV DYE Allergy Unknown Uncoded 09/06/24 08:28 Exam Constitutional Documenting provider has reviewed patient's vital signs: yes Common normals: no apparent distress, oriented x3, healthy appearing, alert and well nourished General appearance: cooperative HENNY Common normals: normocephalic, hearing grossly normal bilaterally and moist oral mucous membranes Head and scalp: normocephalic Eye Common normals: PERRL Pupil: PERRL Neck & C-Spine Common normals: full ROM General: normal visual inspection Cervical spine: no pain with cervical ROM and no cervical spine tenderness Other: negative radiculopathy negative spurlings strength 5/5 in BUE Chest Common normals: inspection of chest normal Respiratory Common normals: normal respiratory effort, no retractions and no use of accessory muscles Back & Pelvis Thoracic spine/upper back: ROM limited, pain with ROM and thoracic spinal tenderness; no paraspinal muscle tenderness Lumbar spine/lower back: ROM limited, pain with ROM, lumbar spinal tenderness and straight leg raise negative bilaterally; no paraspinal muscle tenderness Sacroiliac joints: SI joints normal Other: negative bilateral becca(patricks), gaenslens, thigh thrust, compression test negative radiculopathy strength 5/5 in BLE tenderness over t10-12 facets and L4-S1 facets, positive facet loading bilaterally Neuro Common normals: oriented x3, CN's II-XII intact bilaterally, moves all extremities, no focal motor deficits, no sensory deficits noted and deep tendon reflexes 2+ bilaterally Sensorium/orientation: alert Motor exam: strength 5/5 throughout and no movement abnormalities noted Psych Common normals: mental status grossly normal, thought process normal, cooperative, affect normal, speech normal and activity/motor behavior normal Speech: normal speech Thought process: normal thought process Results Additional Findings Additional findings: If on a controlled substance or opioids, I have checked an [place] report on this patient and there are no aberrancies noted in the prescribing history.??If on a controlled substance or opioid a drug screen was completed and reviewed within the last year, and if there has not been a drug screen completed we ordered one today to monitor higher risk, state monitored pain medication use. As part of providing excellent, safe, comprehensive care, the following was completed at our patient's visit: 1. A medication reconciliation and review to ensure accurate knowledge of current/active medications, including asking our patients to inform us about any [id number] medications or herbal remedies/nutritional supplements/alternative remedies. 2. A review to specifically ensure our patients have had annual screening for screening for depression, screening for tobacco use, and screening for unhealthy alcohol use. For concerning screenings had a discussion with the patient, provided patient education, and recommended follow-up with primary care provider when appropriate. If patient noted with a risk of falling, they received education on strength, gait, and balance training to prevent future risk of falling. Assessment and Plan Assessment and Plan (1) Cervical radiculopathy: (2) Cervical spinal stenosis: (3) Thoracic spondylosis: (4) Lumbar spondylosis: Plan bilateral L4-5 L5-S1 MBB x2 working towards rfa for axial low back pain secondary to lumbar spondylosis unresponsive to above listed medications and HEP greater than 6 weeks continue flexeril 5-10mg TID PRN pain/spasms continue HEP as tolerated defer bilateral T10-T12 MBB #2 at this time as patient would like to address low back pain f/u after each injection
== END 2024-09-15 10:54 | disposition home or self-care (01) ==
LOC: PM 10:53
PROVIDERS: PCP Family Medicine; Visit Provider Nurse Practitioner
DX: M54.12 Radiculopathy, cervical region (principal); M48.02 Spinal stenosis, cervical region; M47.814 Spondylosis without myelopathy or radiculopathy, thoracic region; M47.816 Spondylosis without myelopathy or radiculopathy, lumbar region
CPT/HCPCS: G0463

== ENCOUNTER 2024-09-27 09:47 | Day surgery (SDC) | payer MEDICARE, OTHER, SELFPAY ==
[2024-09-27 10:12] VITALS: BP 128/76; PULSE 89; TEMP 36.3; O2SAT 97
[2024-09-27 11:07] VITALS: BP 122/66; BP 133/65; PULSE 86; PULSE 87; O2SAT 96
[2024-09-27] MEDS: BUPIVACAINE HCL 0.25% PF 25 MG/10 ML VIAL 6 ML INJ (11:09)
[2024-09-27] MEDS: LIDOCAINE HCL 2% 400 MG/20 ML MDV INJ (11:09)
--- NOTE | 2024-09-27 11:09 | W.PM.PROCNOT ---
Date of procedure: 09/27/24 Pre-op diagnosis: Pain due to lumbar spondylosis without myelopathy Post-op diagnosis: same as pre-op Procedure: Procedure: Bilateral L4-5, L5-S1 medial branch block Medications: Bupivacaine 0.25% 6cc The patient was seen and examined in the preoperative holding area.? An informed consent was obtained and placed on the chart.? The patient was brought to the medical procedure unit and placed in the prone position.? A timeout was completed verifying correct patient, procedure site, positioning, plan, and special equipment.? Using aseptic technique, the needle was placed at left L4. Under direct fluoroscopic visualization a Quincke-tipped spinal needle was advanced to the junction of the superior articulating process with the transverse process at the designated medial branch segment.? Preceded by negative aspiration, the above-mentioned injectate was placed in 1 mL aliquots.? The procedure was repeated at left L5, S1.? The needle was removed and insertion site was covered. The same procedure, at the same levels, was completed on the right side. The patient was taken to the postprocedural recovery area and monitored for an appropriate length of time before found suitable for discharge in the company of a responsible adult. Anesthesia: Local Surgeon: Monica Malagon Pathology: none sent Condition: stable Disposition: no change
== END 2024-09-27 11:16 | disposition home or self-care (01) ==
LOC: SURGOUT 09:48
PROVIDERS: PCP Family Medicine; Visit Provider Anesthesiology
DX: M47.816 Spondylosis without myelopathy or radiculopathy, lumbar region (principal)
CPT/HCPCS: 64493; 64494; J0665

== ENCOUNTER 2024-09-30 09:25 | Outpatient (OUT) | payer MEDICARE, OTHER, SELFPAY ==
--- OUTSIDE RECORDS SUMMARY | 2024-09-30 09:33 | XMS_ITS | CCD ---
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 Role Phone NAWRAS, ALI T Unavailable Unavailable NAWRAS, ALI T Unavailable Unavailable HOKelvin, NAPOLEON Unavailable Unavailable HOELSY WarrenLAS Unavailable Unavailable ND Unavailable Unavailable NAWRAS, ALI T Unavailable Unavailable Irving Zamora Attending Physician UnavailNapoleon Florentino Primary Care Physician Unavailab MICAELA Joseph Attending Unavailable MCIAELA GUPTA Attending Unavailable MICAELA GUPTA Referring Unavailable [...] Unavailable HOY ., DR BENDER Attending Unavailable HINTON, DR MEAGHAN Stanton Consulting Unavailable HOY ., [...] Unavailable HOY ., DR BENDER Attending Unavailable HINTON, DR MEAGHAN Stanton Consulting Unavailable RAMIREZ ., [...] HOY ., DR BENDER Attending Unavailable AlexandraCristian katz Attending Unavailab le Aaron Morriselrahman Admitting Unavailab Napoleon Gómez Primary Care Unavailable Giedraitis MD, Andri Vytautjohanny Attending Unavailable Giedraitis MD, Andrius Vytautas Attending Unavailable Giedraitis MD, Andrius Vytautas Attending Unavailable Giedraitis MD, Andrius Vytautas Attending Unavailable Giedraitis MD, Andrius Vytautas Attending Unavailable Allergies Allergy Classification Reported Allergen(s) Allergy Type Date of Onset Reaction(s) Facility (1 source) Contrast media; Translations: [IVP DYE] Propensity to adverse reactions (disorder) 1 [facility] Repository (2 sources) corn extract; Translations: [CORN] Drug Allergy 1 [facility] Repository (6 sources) iodine; Translations: [IODINE] Drug Allergy 9 Edema [facility] Repository (6 sources) Latex; Translations: [LATEX] Drug allergy (disorder) 9 Anaphylaxis [facility] Repository (1 source) loratadine Drug Allergy 1 [facility] Repository (2 sources) loratadine; Translations: [LORATADINE] Drug Allergy 3 [facility] Repository (1 source) montelukast Drug Allergy 1 [facility] Repository (3 sources) papaveretum; Translations: [SOYBEAN] Drug Allergy 1 [facility] Repository (2 sources) Penicillins; Translations: [PENICILLINS] Drug allergy (disorder) 1 [facility] Repository (1 source) povidone-iodine Drug Allergy 9 [facility] Repository (6 sources) propofol; Translations: [PROPOFOL] Drug Allergy 2 Anaphylaxis [facility] Repository (2 sources) wheat preparation; Translations: [WHEAT] Drug Allergy 2 [facility] Repository (5 sources) Iodinated Contrast Media; Translations: [IODINATED CONTRAST MEDIA] Allergy to Substance 4 Anaphylaxis [facility] Repository (1 source) montelukast; Translations: [MONTELUKAST] Drug Allergy 4 [facility] Repository (1 source) oxybutynin; Translations: [DITROPAN] Drug Allergy 2 [facility] Repository (1 source) Povidone-Iodine; Translations: [POVIDONE-IODINE] Drug Allergy 4 [facility] Repository (1 source) Soy protein; Translations: [SOY] Propensity to adverse reactions to drug (disorder) 2 [facility] Repository (1 source) Iodine (And Iodine Containting Drugs) Drug allergy (disorder) 4 [facility] Repository (1 source) Penicillin Drug Allergy [facility] Repository (1 source) Sulfonamides (Antibiotic) Drug allergy (disorder) 2 [facility] Repository (1 source) Iodine Drug Allergy 8 [facility] Repository (1 source) Latex Drug allergy (disorder) 8 [facility] Repository (1 source) Propofol Drug Allergy 8 [facility] Repository Medications Completed/Discontinued Medications Medication [...] 07-15-2022 Episodic Other aftercare (1 source) 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 Raul Pereira Basophils/100 WBC (Bld) 0.6 % Normal 0.2-2.0 [facility] Comment on above: Performed By: #### C BC #### [facility] [address] [place] [address] Dr. Raul Pereira EO # 0.2 103/ul Normal 0.0-0.7 [facility] Comment on above: Performed By: #### C BC #### [facility] [address] [place] [address] Dr. Raul Pereira Eosinophils/100 WBC (Bld) 2.3 % Normal 0.9-7.0 [facility] Comment on above: Performed By: #### C BC #### [facility] [address] [place] [address] Dr. Raul Pereira Hematocrit (Bld) [Volume fraction] 39.5 % Normal 36.0-48.0 [facility] Comment on above: Performed By: #### C BC #### [facility] [address] [place] [address] Dr. Raul Pereira Hemoglobin (Bld) [Mass/Vol] 12.3 g/dL Normal 12.0-16.0 [facility] Comment on above: Performed By: #### C BC #### [facility] [address] [place] [address] Dr. Raul Pereira IG # 0.03 10e3/ul Normal 0.00-0.03 [facility] Comment on above: Performed By: #### C BC #### [facility] [address] [place] [address] Dr. Raul Pereira IG % 0.4 % Normal 0.0-0.5 [facility] Comment on above: Performed By: #### C BC #### [facility] [address] [place] [address] Dr. Raul Pereira LYMPH # 2.1 103/ul Normal 1.2-3.8 [facility] Comment on above: Performed By: #### C BC #### [facility] [address] [place] [address] Dr. Raul Pereira Lymphocytes/100 WBC (Bld) 24.8 % Normal 20.5-60.0 [facility] Comment on above: Performed By: #### C BC #### [facility] [address] [place] [address] Dr. Raul Pereira MANUAL DIFF REQ NO Normal [facility] Comment on above: Performed By: #### C BC #### [facility] [address] [place] [address] Dr. Raul Pereira MCH (RBC) [Entitic mass] 26.3 pg Critically low 26.7-34.0 [facility] Comment on above: Performed By: #### C BC #### [facility] [address] [place] [address] Dr. Raul Pereira MCHC (RBC) [Mass/Vol] 31.1 g/dL Normal 29.9-35.2 [facility] Comment on above: Performed By: #### C BC #### [facility] [address] [place] [address] Dr. Raul Pereira MCV (RBC) [Entitic vol] 84.4 fL Normal 81.0-99.0 [facility] Comment on above: Performed By: #### C BC #### [facility] [address] [place] [address] Dr. Raul Pereira MONO # 1.0 103/ul Critically high 0.3-0.8 [facility] Comment on above: Performed By: #### C BC #### [facility] [address] [address] [address] Raul Pereira Monocytes/100 WBC (Bld) 11.8 % Normal 1.7-12.0 [facility] Comment on above: Performed By: #### C BC #### [facility] [address] [address] [address] Raul Pereira NEUT # 5.0 103/ul Normal 1.4-6.5 [facility] Comment on above: Performed By: #### C BC #### [facility] [address] [place] [address] Dr. Raul Pereira Neutrophils/100 WBC (Bld) 60.1 % Normal 43.0-75.0 [facility] Comment on above: Performed By: #### C BC #### [facility] [address] [place] [address] Dr. Raul Pereira Platelet mean volume (Bld) [Entitic vol] 8.8 fL Critically low 9.5-13.5 [facility] Comment on above: Performed By: #### C BC #### [facility] [address] [place] [address] Dr. Raul Pereira PLT 418 103/ul Normal 150-450 [facility] Comment on above: Performed By: #### C BC #### [facility] [address] [address] [address] Raul Pereira RBC 4.68 106/ul Normal 4.20-5.40 [facility] Comment on above: Performed By: #### C BC #### [facility] [address] [place] [address] Dr. Raul Pereira WBC 8.3 103/ul Normal 4.0-11.0 [facility] Comment on above: Performed By: #### C BC #### [facility] [address] [place] [address] Dr. Raul Pereira FERRITINon 02-20-2023 Ferritin [Mass/Vol] 15.0 ng/mL Normal 8.0-252.0 [facility] Comment on above: Performed By: #### C #### [facility] [address] [address] [address] Raul Pereira XR CSPINE 2_3 VIEWSon [...] by: JESSICA LIPSCOMB Date: 2023-02-19 06:42 Normal [facility] CT LUNG CANCER SCREENINGon 0 [...] by: MEAGHAN SKINNER Date: 2023-02-13 11:02 Normal [facility] ECHOCARDIO M/2D COMPLETEon 0 02-13-2023 ECHOCARDIO M/2D COMPLETE Patient: RHETT MEJIA Exam Date: 02/13/2023 : 1960 Gender:F Ordering : DR NAPOLEON RAHMAN . Admission #: [id number] Family : Order #: [id number] CLICK HERE TO VIEW EXAM ECHOCARDIOGRAM REPORT [...] M.D. on 02/13/2023 at 18:54 Normal [facility] CREATININEon 02-12-2023 Creatinine [Mass/Vol] 0.76 mg/dL Normal 0.55-1.02 [facility] Comment on above: Performed By: #### C BC #### [facility] [address] [address] [address] Raul Pereira EGFR-AF TANZANIAN >60 Normal >=60 [facility] Comment on above: Performed By: #### C BC #### [facility] [id number] Raul Pereira EGFR-NON AF TANZANIAN >60 Normal >=60 [facility] Comment on above: Performed By: #### C #### [facility] [address] [address] [address] Raul Pereira MRI BRAIN WO W [...] JESSICA LIPSCOMB Date: 2023-02-12 12:37 Normal [facility] US CAROTID ART BILon 023 US [...] by: JESSICA LIPSCOMB Date: 2023-02-12 14:03 Normal [facility] COMPLIANCE DRUG SCREENon PDF . Normal [facility] Comment on above: Performed By: #### C BC #### [facility] [address] [address] [address] Raul Pereira Summary FINAL Normal [facility] Comment on above: Result Comment: == TOXASSURE [...] == Performed By: #### C BC #### [facility] [address] [place] [address] Dr. Raul Pereira CULTURE URINEon 02-02-2023 CULTURE [...] F Trimethoprim/Sulfamethoxa zole <=20 S F Normal [facility] Comment on above: Performed By: #### U RCX #### [facility] [address] [place] [address] Dr. Raul Pereira AMMONIAon 01-31-2023 Ammonia (P) [Moles/Vol] 13 umol/L Normal 11-32 [facility] Comment on above: Performed By: #### A MM ####[facility] [id number] [address]Dr. Raul Pereira CBC AUTO DIFFon 01-31-2023 BASO # 0.1 103/ul Normal 0.0-0.1 [facility] Comment on above: Performed By: #### C BC #### [facility] [address] [address] [address] Raul Pereira Basophils/100 WBC (Bld) 0.6 % Normal 0.2-2.0 [facility] Comment on above: Performed By: #### C BC #### [facility] [address] [place] [address] Dr. Raul Pereira EO # 0.1 103/ul Normal 0.0-0.7 [facility] Comment on above: Performed By: #### C BC #### [facility] [address] [place] [address] Dr. Raul Pereira Eosinophils/100 WBC (Bld) 1.7 % Normal 0.9-7.0 [facility] Comment on above: Performed By: #### C BC #### [facility] [address] [place] [address] Dr. Raul Pereira Erythrocyte distribution width (RBC) [Ratio] 25.9 % Critically high 11.0-15.0 [facility] Comment on above: Result Comment: 2+ a niso Performed By: #### C BC #### [facility] [address] [place] [address] Dr. Raul Pereira Hematocrit (Bld) [Volume fraction] 42.4 % Normal 36.0-48.0 [facility] Comment on above: Performed By: #### C BC #### [facility] [address] [place] [address] Dr. Raul Pereira Hemoglobin (Bld) [Mass/Vol] 13.1 g/dL Normal 12.0-16.0 [facility] Comment on above: Performed By: #### C BC #### [facility] [address] [place] [address] Dr. Raul Pereira IG # 0.02 10e3/ul Normal 0.00-0.03 [facility] Comment on above: Performed By: #### C BC #### [facility] [address] [place] [address] Dr. Raul Pereira IG % 0.2 % Normal 0.0-0.5 [facility] Comment on above: Performed By: #### C BC #### [facility] [address] [place] [address] Dr. Raul Pereira LYMPH # 2.0 103/ul Normal 1.2-3.8 [facility] Comment on above: Performed By: #### C BC #### [facility] [address] [place] [address] Dr. Raul Pereira Lymphocytes/100 WBC (Bld) 24.8 % Normal 20.5-60.0 [facility] Comment on above: Performed By: #### C BC #### [facility] [address] [place] [address] Dr. Raul Pereira MANUAL DIFF REQ NO Normal [facility] Comment on above: Performed By: #### C BC #### [facility] [address] [place] [address] Dr. Raul Periera MCH (RBC) [Entitic mass] 25.3 pg Critically low 26.7-34.0 [facility] Comment on above: Performed By: #### C BC #### [facility] [address] [place] [address] Dr. Raul Pereira MCHC (RBC) [Mass/Vol] 30.9 g/dL Normal 29.9-35.2 [facility] Comment on above: Performed By: #### C BC #### [facility] [address] [place] [address] Dr. Raul Pereira MCV (RBC) [Entitic vol] 82.0 fL Normal 81.0-99.0 [facility] Comment on above: Performed By: #### C BC #### [facility] [address] [place] [address] Dr. Raul Pereira MONO # 0.7 103/ul Normal 0.3-0.8 [facility] Comment on above: Performed By: #### C BC #### [facility] [address] [place] [address] Dr. Raul Pereira Monocytes/100 WBC (Bld) 8.8 % Normal 1.7-12.0 [facility] Comment on above: Performed By: #### C BC #### [facility] [address] [place] [address] Dr. Raul Pereira NEUT # 5.2 103/ul Normal 1.4-6.5 [facility] Comment on above: Performed By: #### C BC #### [facility] [address] [place] [address] Dr. Raul Pereira Neutrophils/100 WBC (Bld) 63.9 % Normal 43.0-75.0 [facility] Comment on above: Performed By: #### C BC #### [facility] [address] [place] [address] Dr. Raul Pereira Platelet mean volume (Bld) [Entitic vol] 9.2 fL Critically low 9.5-13.5 [facility] Comment on above: Performed By: #### C BC #### [facility] [address] [place] [address] Dr. Raul Pereira PLT 334 103/ul Normal 150-450 [facility] Comment on above: Performed By: #### C BC #### [facility] [address] [place] [address] Dr. Raul Pereira RBC 5.17 106/ul Normal 4.20-5.40 [facility] Comment on above: Performed By: #### C BC #### [facility] [address] [place] [address] Dr. Raul Pereira WBC 8.2 103/ul Normal 4.0-11.0 [facility] Comment on above: Performed By: #### C BC #### [facility] [address] [place] [address] Dr. Raul Pereira SARA - LIPID PROFILEon 2022 CHOL-HDL RATIO NORM SEE BELOW Normal [facility] Comment on above: Result Comment: 3.3 - 4.4 LOW RISK 4.4 - 7.1 AVERAGE RISK 7.1 - 11.0 MODERATE RISK >11.0 HIGH RISK Performed By: #### D ATLIPI ####[facility] [address] [place], [place] [address]Rw. Aranzalan Pereira Cholesterol [Mass/Vol] 178 mg/dL Normal <=200 [facility] Comment on above: Performed By: #### D ATLIPI ####[facility] [address] [id number]. Raul Pereira Cholesterol in HDL [Mass/Vol] 73 mg/dL Critically high 40-60 [facility] Comment on above: Performed By: #### D ATLIPI ####[facility] [address] [id number]. Raul Pereira Cholesterol in LDL [Mass/Vol] 72.0 mg/dL Normal [facility] Comment on above: Performed By: #### D ATLIPI ####[facility] [address] [id number]. Raul Pereira Cholesterol.total/C holesterol in HDL [Mass ratio] 2.4 {ratio} Normal [facility] Comment on above: Performed By: #### D ATLIPI ####[facility] [address] [id number]. Aranzalan Pereira HDL NORMAL > or = 60 mg/dl - LO W CARDIOVASCULAR RISK <40 mg/dl - HIGH CARDIOVASCULAR RISK Normal [facility] Comment on above: Performed By: #### D ATLIPI ####[facility] [address] [id number]. Aranzalan Pereira LDL CALC NORMAL SEE BELOW Normal [facility] Comment on above: Result Comment: <100 mg/dl OPTIMAL 100 - 129 mg/dl NEAR OR ABOVE OPTIMAL 130 - 159 mg/dl BORDERLINE HIGH 160 - 189 mg/dl HIGH >190 mg/dl VERY HIGH Performed By: #### D ATLIPI ####[facility] [address] [id number]. Aranzalan Pereira Triglyceride [Mass/Vol] 165 mg/dL Critically high <=150 [facility] Comment on above: Performed By: #### D ATLIPI ####[facility] [address] [address]Dr. Raul Pereira VLDL CALC 33.0 mg/dL Normal [facility] Comment on above: Performed By: #### D ATLIPI ####[facility] [address] [address]DrLeann Pereira DRUG SCREEN RAPID (URINE)on 01-31-2023 AMP Positive Abnormal NEGATIVE [facility] Comment on above: Performed By: #### C BC #### [facility] [address] [address] [address] Raul Pereira BAR Negative Normal NEGATIVE [facility] Comment on above: Performed By: #### C BC #### [facility] [address] [address] [address] Raul Pereira BUP Positive Abnormal NEGATIVE [facility] Comment on above: Performed By: #### C BC #### [facility] [address] [address] [address] Raul Pereira BZO Negative Normal NEGATIVE [facility] Comment on above: Performed By: #### C BC #### [facility] [address] [address] [address] Raul Pereira RADHA Negative Normal NEGATIVE [facility] Comment on above: Performed By: #### C BC #### [facility] [address] [address] [address] Raul Pereira CUT-OFFS SEE BELOW Normal [facility] Comment on above: Result Comment: AMP [...] ng/mL Performed By: #### C BC #### [facility] [address] [place] [address] Dr. Raul Pereira DRUG CUT HEADER DRUG CLASS TEST SYST EM CUT-OFF CONCENTRATIONS ARE FOLLOWS: Normal [facility] Comment on above: Performed By: #### C BC #### [facility] [address] [place] [address] Dr. Raul Pereira mAMP Negative Normal NEGATIVE [facility] Comment on above: Performed By: #### C BC #### [facility] [address] [place] [address] Dr. Raul Pereira MTD Negative Normal NEGATIVE [facility] Comment on above: Performed By: #### C BC #### [facility] [address] [place] [address] Dr. Raul Pereira OPI Negative Normal NEGATIVE [facility] Comment on above: Performed By: #### C BC #### [facility] [address] [place] [address] Dr. Raul Pereira OXY Negative Normal NEGATIVE [facility] Comment on above: Performed By: #### C BC #### [facility] [address] [place] [address] Dr. Raul Pereira PCP Negative Normal NEGATIVE [facility] Comment on above: Performed By: #### C BC #### [facility] [address] [place] [address] Dr. Raul Pereira PPX Negative Normal NEGATIVE [facility] Comment on above: Performed By: #### C BC #### [facility] [address] [place] [address] Dr. Raul Pereira TCA Positive Abnormal NEGATIVE [facility] Comment on above: Performed By: #### C BC #### [facility] [address] [place] [address] Dr. Raul Pereira THC Negative Normal NEGATIVE [facility] Comment on above: Performed By: #### C BC #### [facility] [address] [place] [address] Dr. Raul Pereira FREE THYROXINE INDEX T7on FTI 2.89 Normal 1.30-4.50 [facility] Comment on above: Performed By: #### C VDTBH #### [facility] [address] [address] [address] Raul Pereira T3U 39.0 % Normal 30.0-39.0 [facility] Comment on above: Performed By: #### C VDTBH #### [facility] [address] [address] [address] Raul Pereira T4 [Mass/Vol] 7.40 ug/dL Normal 4.80-13.90 [facility] Comment on above: Performed By: #### C VDTBH #### [facility] [address] [address] [address] Raul Pereira GLYCOHEMOGLOBIN A1Con 2022 ADA RECOMMENDATION SEE BELOW Normal [facility] Comment on above: Result Comment: ADA RECOMMENDED LIMIT 4.0 - 6.0 ADA THERAPEUTIC TARGET < 7.0 ACTION SUGGESTED > 7.0 Performed By: #### D ATA1C ####[facility] [address] [id number]. Raul Pereira Glucose [Mass/Vol] 108 mg/dL Normal [facility] Comment on above: Performed By: #### D ATA1C ####[facility] [address] [place], [place] [address]FjDr. Raul Pereira HbA1c (Bld) [Mass fraction] 5.4 % Normal 4.5-6.2 [facility] Comment on above: Performed By: #### D ATA1C ####[facility] [address] [id number]. Raul Pereira IRONon 01-31-2023 Iron [Mass/Vol] 225.0 ug/dL Critically high 50.0-170.0 [facility] Comment on above: Performed By: #### C VDTBH #### [facility] [address] [address] [address] Raul Pereira PROF 14(COMP METB)on 023 Albumin [Mass/Vol] 3.8 g/dL Normal 3.4-5.0 [facility] Comment on above: Performed By: #### C VDTBH #### [facility] [address] [place] [address] Dr. Raul Pereira Albumin/Globulin [Mass ratio] 1.2 {ratio} Normal [facility] Comment on above: Performed By: #### C VDTBH #### [facility] [address] [address] [address] Raul Pereira ALP [Catalytic activity/Vol] 77 U/L Normal 46-116 [facility] Comment on above: Performed By: #### C VDTBH #### [facility] [address] [place] [address] Dr. Raul Pereira ALT [Catalytic activity/Vol] 19 U/L Normal 14-59 [facility] Comment on above: Performed By: #### C VDTBH #### [facility] [address] [place] [address] Dr. Raul Pereira Anion gap [Moles/Vol] 12.9 mmol/L Normal [facility] Comment on above: Performed By: #### C VDTBH #### [facility] [address] [place] [address] Dr. Raul Pereira AST [Catalytic activity/Vol] 17 U/L Normal 15-37 [facility] Comment on above: Performed By: #### C VDTBH #### [facility] [address] [place] [address] Dr. Raul ePreira Bilirubin [Mass/Vol] 0.3 mg/dL Normal 0.2-1.0 [facility] Comment on above: Performed By: #### C VDTBH #### [facility] [address] [address] [address] Raul Pereira Calcium [Mass/Vol] 8.9 mg/dL Normal 8.5-10.1 [facility] Comment on above: Performed By: #### C VDTBH #### [facility] [address] [address] [address] Raul Pereira Chloride [Moles/Vol] 101 mmol/L Normal 98-107 [facility] Comment on above: Performed By: #### C VDTBH #### [facility] [address] [address] [address] Raul Pereira CO2 [Moles/Vol] 28.5 mmol/L Normal 21.0-32.0 [facility] Comment on above: Performed By: #### C VDTBH #### [facility] [address] [address] [address] Raul Pereira Creatinine [Mass/Vol] 0.59 mg/dL Normal 0.55-1.02 [facility] Comment on above: Performed By: #### C VDTBH #### [facility] [address] [address] [address] Raul Pereira EGFR-AF TANZANIAN >60 Normal >=60 [facility] Comment on above: Performed By: #### C VDTBH #### [facility] [address] [address] [address] Raul Pereira EGFR-NON AF TANZANIAN >60 Normal >=60 [facility] Comment on above: Performed By: #### C VDTBH #### [facility] [address] [address] [address] Raul Pereira Globulin (S) [Mass/Vol] 3.1 g/dL Normal [facility] Comment on above: Performed By: #### C VDTBH #### [facility] [address] [address] [address] Raul Pereira Glucose [Mass/Vol] 84 mg/dL Normal 74-106 [facility] Comment on above: Performed By: #### C VDTBH #### [facility] [address] [address] [address] Raul Pereira Potassium [Moles/Vol] 4.4 mmol/L Normal 3.5-5.1 [facility] Comment on above: Performed By: #### C VDTBH #### [facility] [address] [address] [address] Raul Pereira Protein [Mass/Vol] 6.9 g/dL Normal 6.4-8.2 [facility] Comment on above: Performed By: #### C VDTBH #### [facility] [address] [address] [address] Raul Pereira Sodium [Moles/Vol] 138 mmol/L Normal 136-145 [facility] Comment on above: Performed By: #### C VDTBH #### [facility] [address] [place] [address] Dr. Raul Pereira Urea nitrogen [Mass/Vol] 11.0 mg/dL Normal 7.0-18.0 [facility] Comment on above: Performed By: #### C VDTBH #### [facility] [address] [place] [address] Dr. Raul Pereira Urea nitrogen/Creatinine [Mass ratio] 18.6 mg/mg Normal [facility] Comment on above: Performed By: #### C VDTBH #### [facility] [address] [place] [address] Dr. Raul Pereira TSHon 01-31-2023 TSH 2.354 uIU/mL Normal 0.358-3.740 [facility] Comment on above: Performed By: #### C VDTBH #### [facility] [address] [place] [address] Dr. Raul Pereira UA RANDOM W/MICROSCOPICon BACTERIA NONE SEEN Normal NONE SEEN [facility] Comment on above: Performed By: #### C BC #### [facility] [address] [place] [address] Dr. Raul Pereira Bilirubin Ql (U) Negative Normal NEGATIVE [facility] Comment on above: Performed By: #### C BC #### [facility] [address] [place] [address] Dr. Raul Pereira CAST NONE SEEN Normal NONE SEEN [facility] Comment on above: Performed By: #### C BC #### [facility] [address] [place] [address] Dr. Raul Pereira Clarity (U) CLEAR Normal CLEAR [facility] Comment on above: Performed By: #### C BC #### [facility] [address] [place] [address] Dr. Raul Pereira Color (U) YELLOW Normal YELLOW [facility] Comment on above: Performed By: #### C BC #### [facility] [address] [place] [address] Dr. Raul Pereira Crystals LM Nom (Urine sed) NONE SEEN Normal NONE SEEN [facility] Comment on above: Performed By: #### C BC #### [facility] [address] [place] [address] Dr. Raul Pereiar Epithelial cells LM Ql (Urine sed) NONE SEEN Normal NONE SEEN /RARE [facility] Comment on above: Performed By: #### C BC #### [facility] [address] [place] [address] Dr. Raul Pereira Glucose Ql (U) Negative Normal NEGATIVE [facility] Comment on above: Performed By: #### C BC #### [facility] [address] [place] [address] Dr. Raul Pereira Hemoglobin Ql (U) Negative Normal NEGATIVE [facility] Comment on above: Performed By: #### C BC #### [facility] [address] [place] [address] Dr. Raul Pereira Ketones Ql (U) Negative Normal NEGATIVE [facility] Comment on above: Performed By: #### C BC #### [facility] [address] [place] [address] Dr. Raul Pereira LEUKOCYTES Negative Normal NEGATIVE [facility] Comment on above: Performed By: #### C BC #### [facility] [address] [place] [address] Dr. Raul Pereira MUCOUS NONE SEEN Normal NONE SEEN [facility] Comment on above: Performed By: #### C BC #### [facility] [address] [place] [address] Dr. Raul Pereira Nitrite Ql (U) Negative Normal NEGATIVE [facility] Comment on above: Performed By: #### C BC #### [facility] [address] [place] [address] Dr. Raul Pereira pH (U) 5.5 [pH] Normal 5-9 [facility] Comment on above: Performed By: #### C BC #### [facility] [address] [place] [address] Dr. Raul Pereira RBC NONE SEEN Abnormal 0-2 [facility] Comment on above: Performed By: #### C BC #### [facility] [address] [place] [address] Dr. Raul Pereira SPEC GRAVITY 1.030 Abnormal 1.005-<=1.02 5 [facility] Comment on above: Performed By: #### C BC #### [facility] [address] [place] [address] Dr. Raul Pereira UA PROTEIN Negative Normal NEGATIVE/ TRACE [facility] Comment on above: Performed By: #### C BC #### [facility] [address] [place] [address] Dr. Raul Pereira Urobilinogen Qn (U) 0.2 {Farrukh'U}/dL Normal 0.2 - 1. 0 [facility] Comment on above: Performed By: #### C BC #### [facility] [address] [place] [address] Dr. Raul Pereira WBC NONE SEEN Normal NONE SEEN [facility] Comment on above: Performed By: #### C BC #### [facility] [address] [place] [address] Dr. Raul Pereira VITAMIN D 25 OHon 01-31-2023 VIT D 25-OH 40.8 ng/mL Normal [facility] Comment on above: Performed By: #### C VDTBH #### [facility] [address] [place] [address] Dr. Raul Pereira VIT D RANGES SEE BELOW Normal [facility] Comment on above: Result Comment: <20 ng/mL Vit D deficient 20 - <30 ng/mL Vit D insufficient 30 - 100 ng/mL Vit D sufficient >100 ng/mL Potential Toxicity Performed By: #### C VDTBH #### [facility] [address] [place] [address] Dr. Raul Pereira VC VENOUS REFLUX ALEXUS LMTon 0 01-30-2023 VC VENOUS REFLUX ALEXUS LMT Patient: RHETT MEJIA Exam Date: 01/30/2023 : 1960 Gender:F Ordering : DR NAPOLEON RAHMAN . Admission #: [id number] Family : Order #: [id number] CLICK HERE TO VIEW EXAM RADIOLOGY REPORT [...] thrombus. Compressibility: Normal. Flow: Deep venous reflux. Assistant Loan Processor:Mid/medial lower leg 4.3 mm with 0.8s reflux. [...] great saphenous vein along with dilated, incompetent glass vial filler veins and numerous branch saphenous varicosities. 2. 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 Proximal closer with endovenous laser ablation may be beneficial followed by treatment with microfoam chemical ablation. 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 Dilated, incompetent branch saphenous varicosities which would benefit from microfoam chemical ablation. 3. Consultation for endovenous ablation is recommended. Dictated by: Jessica Lipscomb M.D. on 01/31/2023 at 09:46 Approved by: Jessica Lipscomb M.D. on 01/31/2023 at 09:51 Normal [facility] CBC AUTO DIFFon 01-13-2023 BASO # 0.0 103/ul Normal 0.0-0.1 [facility] Comment on above: Performed By: #### C BC #### [facility] [address] [address] [address] Raul Pereira Basophils/100 WBC (Bld) 0.5 % Normal 0.2-2.0 [facility] Comment on above: Performed By: #### C BC #### [facility] [address] [place] [address] Dr. Raul Pereira EO # 0.1 103/ul Normal 0.0-0.7 [facility] Comment on above: Performed By: #### C BC #### [facility] [address] [place] [address] Dr. Raul Pereira Eosinophils/100 WBC (Bld) 1.7 % Normal 0.9-7.0 [facility] Comment on above: Performed By: #### C BC #### [facility] [address] [place] [address] Dr. Raul Pereira Erythrocyte distribution width (RBC) [Ratio] 18.4 % Critically high 11.0-15.0 [facility] Comment on above: Performed By: #### C BC #### [facility] [address] [place] [address] Dr. Raul Pereira Hematocrit (Bld) [Volume fraction] 33.1 % Critically low 36.0-48.0 [facility] Comment on above: Performed By: #### C BC #### [facility] [address] [place] [address] Dr. Raul Pereira Hemoglobin (Bld) [Mass/Vol] 10.4 g/dL Critically low 12.0-16.0 [facility] Comment on above: Performed By: #### C BC #### [facility] [address] [place] [address] Dr. Raul Pereira IG # 0.03 10e3/ul Normal 0.00-0.03 [facility] Comment on above: Performed By: #### C BC #### [facility] [address] [place] [address] Dr. Raul Pereira IG % 0.4 % Normal 0.0-0.5 [facility] Comment on above: Performed By: #### C BC #### [facility] [address] [place] [address] Dr. Raul Pereira LYMPH # 1.9 103/ul Normal 1.2-3.8 [facility] Comment on above: Performed By: #### C BC #### [facility] [address] [place] [address] Dr. Raul Pereira Lymphocytes/100 WBC (Bld) 25.2 % Normal 20.5-60.0 [facility] Comment on above: Performed By: #### C BC #### [facility] [address] [place] [address] Dr. Raul Pereira MANUAL DIFF REQ NO Normal [facility] Comment on above: Performed By: #### C BC #### [facility] [address] [place] [address] Dr. Raul Pereira MCH (RBC) [Entitic mass] 24.1 pg Critically low 26.7-34.0 [facility] Comment on above: Performed By: #### C BC #### [facility] [address] [place] [address] Dr. Raul Pereira MCHC (RBC) [Mass/Vol] 31.4 g/dL Normal 29.9-35.2 [facility] Comment on above: Performed By: #### C BC #### [facility] [address] [place] [address] Dr. Raul Pereira MCV (RBC) [Entitic vol] 76.6 fL Critically low 81.0-99.0 [facility] Comment on above: Performed By: #### C BC #### [facility] [address] [place] [address] Dr. Raul Pereira MONO # 0.8 103/ul Normal 0.3-0.8 [facility] Comment on above: Performed By: #### C BC #### [facility] [address] [place] [address] Dr. Raul Pereira Monocytes/100 WBC (Bld) 10.7 % Normal 1.7-12.0 [facility] Comment on above: Performed By: #### C BC #### [facility] [address] [place] [address] Dr. Raul Pereira NEUT # 4.7 103/ul Normal 1.4-6.5 [facility] Comment on above: Performed By: #### C BC #### [facility] [address] [place], [place] [address] Dr. Raul Pereira Neutrophils/100 WBC (Bld) 61.5 % Normal 43.0-75.0 [facility] Comment on above: Performed By: #### C BC #### [facility] [address] [address] [address] Raul Pereira Platelet mean volume (Bld) [Entitic vol] 8.6 fL Critically low 9.5-13.5 [facility] Comment on above: Performed By: #### C BC #### [facility] [address] [address] [address] Raul Pereira PLT 461 103/ul Critically high 150-450 [facility] Comment on above: Performed By: #### C BC #### [facility] [address] [address] [address] Raul Pereira RBC 4.32 106/ul Normal 4.20-5.40 [facility] Comment on above: Performed By: #### C BC #### [facility] [address] [address] [address] Raul Pereira WBC 7.6 103/ul Normal 4.0-11.0 [facility] Comment on above: Performed By: #### C BC #### [facility] [address] [address] [address] Raul Pereira FREE THYROXINE INDEX T7on FTI 2.10 Normal 1.30-4.50 [facility] Comment on above: Performed By: #### T 7, CMP, TSH, LIPID ####[facility] [address] [place], [place] [address]OqLeann Pereira T3U 35.0 % Normal 30.0-39.0 [facility] Comment on above: Performed By: #### T 7, CMP, TSH, LIPID ####[facility] [address] [place], [place] [address]FgDr. Raul Pereira T4 [Mass/Vol] 6.00 ug/dL Normal 4.80-13.90 [facility] Comment on above: Performed By: #### T 7, CMP, TSH, LIPID ####[facility] [address] [id number] Pereira GLYCOHEMOGLOBIN A1Con 2022 ADA RECOMMENDATION SEE BELOW Normal [facility] Comment on above: Result Comment: ADA RECOMMENDED LIMIT 4.0 - 6.0 ADA THERAPEUTIC TARGET < 7.0 ACTION SUGGESTED > 7.0 Performed By: #### C VDTBH #### [facility] [address] [address] [address] Raul Pereira Glucose [Mass/Vol] 108 mg/dL Normal [facility] Comment on above: Performed By: #### C VDTBH #### [facility] [address] [address] [address] Raul Pereira HbA1c (Bld) [Mass fraction] 5.4 % Normal 4.5-6.2 [facility] Comment on above: Performed By: #### C VDTBH #### [facility] [address] [address] [address] Raul Pereira IRON AND TIBCon 01-13-2023 % SATURATION 3.5 % Normal [facility] Comment on above: Performed By: #### F ETIBC, B12FOL, VITAD ####[facility] [address] [address]Dr. Raul Pereira Iron [Mass/Vol] 18.0 ug/dL Critically low 50.0-170.0 [facility] Comment on above: Performed By: #### F ETIBC, B12FOL, VITAD ####[facility] [address] [id number] Pereira TIBC DIRECT 513.0 ug/dL Critically high 250.0-450.0 [facility] Comment on above: Performed By: #### F ETIBC, B12FOL, VITAD ####[facility] [address] [address]Dr. Raul Pereira LIPID PROFILEon 01-13-2023 CHOL-HDL RATIO NORM SEE BELOW Normal [facility] Comment on above: Result Comment: 3.3 - 4.4 LOW RISK 4.4 - 7.1 AVERAGE RISK 7.1 - 11.0 MODERATE RISK >11.0 HIGH RISK Performed By: #### T 7, CMP, TSH, LIPID ####[facility] [address] [id number]. Raul Pereira Cholesterol [Mass/Vol] 190 mg/dL Normal <=200 [facility] Comment on above: Performed By: #### T 7, CMP, TSH, LIPID ####[facility] [address] [id number]. Aranzalan Pereira Cholesterol in HDL [Mass/Vol] 71 mg/dL Critically high 40-60 [facility] Comment on above: Performed By: #### T 7, CMP, TSH, LIPID ####[facility] [address] [address]Dr. Aranzapetr Pereira Cholesterol in LDL [Mass/Vol] 104.6 mg/dL Normal [facility] Comment on above: Performed By: #### T 7, CMP, TSH, LIPID ####[facility] [address] [id number]. Aranzalan Pereira Cholesterol.total/C holesterol in HDL [Mass ratio] 2.7 {ratio} Normal [facility] Comment on above: Performed By: #### T 7, CMP, TSH, LIPID ####[facility] [address] [id number]. Aranzapetr Pereira HDL NORMAL > or = 60 mg/dl - LO W CARDIOVASCULAR RISK <40 mg/dl - HIGH CARDIOVASCULAR RISK Normal [facility] Comment on above: Performed By: #### T 7, CMP, TSH, LIPID ####[facility] [address] [id number]. Aranzalan Pereira LDL CALC NORMAL SEE BELOW Normal [facility] Comment on above: Result Comment: <100 mg/dl OPTIMAL 100 - 129 mg/dl NEAR OR ABOVE OPTIMAL 130 - 159 mg/dl BORDERLINE HIGH 160 - 189 mg/dl HIGH >190 mg/dl VERY HIGH Performed By: #### T 7, CMP, TSH, LIPID ####[facility] [address] [address]Dr. Raul Pereira Triglyceride [Mass/Vol] 72 mg/dL Normal <=150 [facility] Comment on above: Performed By: #### T 7, CMP, TSH, LIPID ####[facility] [address] [address]Dr. Raul Pereira VLDL CALC 14.4 mg/dL Normal [facility] Comment on above: Performed By: #### T 7, CMP, TSH, LIPID ####[facility] [address] [address]Dr. Raul Pereira PROF 14(COMP METB)on 023 Albumin [Mass/Vol] 3.5 g/dL Normal 3.4-5.0 [facility] Comment on above: Performed By: #### T 7, CMP, TSH, LIPID ####[facility] [address] [address]Dr. Raul Pereira Albumin/Globulin [Mass ratio] 1.1 {ratio} Normal [facility] Comment on above: Performed By: #### T 7, CMP, TSH, LIPID ####[facility] [address] [address]Dr. Raul Pereira ALP [Catalytic activity/Vol] 92 U/L Normal 46-116 [facility] Comment on above: Performed By: #### T 7, CMP, TSH, LIPID ####[facility] [address] [address]Dr. Raul Pereira ALT [Catalytic activity/Vol] 17 U/L Normal 14-59 [facility] Comment on above: Performed By: #### T 7, CMP, TSH, LIPID ####[facility] [address] [address]Dr. Raul Pereira Anion gap [Moles/Vol] 10.0 mmol/L Normal [facility] Comment on above: Performed By: #### T 7, CMP, TSH, LIPID ####[facility] [address] [address]Dr. Raul Pereira AST [Catalytic activity/Vol] 17 U/L Normal 15-37 [facility] Comment on above: Performed By: #### T 7, CMP, TSH, LIPID ####[facility] [address] [address]Dr. Raul Pereira Bilirubin [Mass/Vol] 0.2 mg/dL Normal 0.2-1.0 [facility] Comment on above: Performed By: #### T 7, CMP, TSH, LIPID ####[facility] [address] [address]Dr. Raul Pereira Calcium [Mass/Vol] 8.8 mg/dL Normal 8.5-10.1 [facility] Comment on above: Performed By: #### T 7, CMP, TSH, LIPID ####[facility] [address] [address]Dr. Raul Pereira Chloride [Moles/Vol] 101 mmol/L Normal 98-107 [facility] Comment on above: Performed By: #### T 7, CMP, TSH, LIPID ####[facility] [address] [place], [place] [address]Dr. Raul Pereira CO2 [Moles/Vol] 29.4 mmol/L Normal 21.0-32.0 [facility] Comment on above: Performed By: #### T 7, CMP, TSH, LIPID ####[facility] [address] [address]Dr. Raul Pereira Creatinine [Mass/Vol] 0.50 mg/dL Critically low 0.55-1.02 [facility] Comment on above: Performed By: #### T 7, CMP, TSH, LIPID ####[facility] [address] [address]Dr. Raul Pereira EGFR-AF TANZANIAN >60 Normal >=60 [facility] Comment on above: Performed By: #### T 7, CMP, TSH, LIPID ####[facility] [address] [address]Dr. Raul Pereira EGFR-NON AF TANZANIAN >60 Normal >=60 [facility] Comment on above: Performed By: #### T 7, CMP, TSH, LIPID ####[facility] [address] [place], [place] [address]Dr. Raul Pereira Globulin (S) [Mass/Vol] 3.2 g/dL Normal [facility] Comment on above: Performed By: #### T 7, CMP, TSH, LIPID ####[facility] [address] [address]Dr. Raul Pereira Glucose [Mass/Vol] 88 mg/dL Normal 74-106 [facility] Comment on above: Performed By: #### T 7, CMP, TSH, LIPID ####[facility] [address] [address]Dr. Raul Pereira Potassium [Moles/Vol] 4.4 mmol/L Normal 3.5-5.1 [facility] Comment on above: Performed By: #### T 7, CMP, TSH, LIPID ####[facility] [address] [address]Dr. Raul Pereira Protein [Mass/Vol] 6.7 g/dL Normal 6.4-8.2 [facility] Comment on above: Performed By: #### T 7, CMP, TSH, LIPID ####[facility] [address] [address]Dr. Raul Pereira Sodium [Moles/Vol] 136 mmol/L Normal 136-145 [facility] Comment on above: Performed By: #### T 7, CMP, TSH, LIPID ####[facility] [address] [address]Dr. Raul Pereira Urea nitrogen [Mass/Vol] 12.0 mg/dL Normal 7.0-18.0 [facility] Comment on above: Performed By: #### T 7, CMP, TSH, LIPID ####[facility] [address] [address]Dr. Raul Pereira Urea nitrogen/Creatinine [Mass ratio] 24.0 mg/mg Normal [facility] Comment on above: Performed By: #### T 7, CMP, TSH, LIPID ####[facility] [address] [address]Dr. Raul Pereira TSHon 01-13-2023 TSH 1.623 uIU/mL Normal 0.358-3.740 [facility] Comment on above: Performed By: #### T 7, CMP, TSH, LIPID ####[facility] [facility] [address] [address]Dr. Raul Pereira VIT B12 AND FOLATEon 023 Cobalamin (Vitamin B12) [Mass/Vol] 872.0 pg/mL Normal 193.0-986.0 [facility] Comment on above: Performed By: #### F ETIBC, B12FOL, VITAD ####[facility] [address] [address]Dr. Raul Pereira FOLATE 21.20 ng/mL Normal 8.60-58.90 [facility] Comment on above: Performed By: #### F ETIBC, B12FOL, VITAD ####[facility] [address] [address]Dr. Raul Pereira VITAMIN D 25 OHon 01-13-2023 VIT D 25-OH 40.6 ng/mL Normal [facility] Comment on above: Performed By: #### F ETIBC, B12FOL, VITAD ####[facility] [address] [address]Dr. Raul Pereira VIT D RANGES SEE BELOW Normal [facility] Comment on above: Result Comment: <20 ng/mL Vit D deficient 20 - <30 ng/mL Vit D insufficient 30 - 100 ng/mL Vit D sufficient >100 ng/mL Potential Toxicity Performed By: #### F ETIBC, B12FOL, VITAD ####[facility] [address] [address]Dr. Raul Pereira CBC AUTO DIFFon 01-10-2023 BASO # 0.1 103/ul Normal 0.0-0.1 [facility] Comment on above: Performed By: #### C VDTBH #### [facility] [address] [address] [address] Raul Pereira Basophils/100 WBC (Bld) 0.6 % Normal 0.2-2.0 [facility] Comment on above: Performed By: #### C VDTBH #### [facility] [address] [place] [address] Dr. Raul Pereira EO # 0.1 103/ul Normal 0.0-0.7 [facility] Comment on above: Performed By: #### C VDTBH #### [facility] [address] [place] [address] Dr. Raul Pereira Eosinophils/100 WBC (Bld) 1.3 % Normal 0.9-7.0 [facility] Comment on above: Performed By: #### C VDTBH #### [facility] [address] [place] [address] Dr. Raul Pereira Erythrocyte distribution width (RBC) [Ratio] 18.4 % Critically high 11.0-15.0 [facility] Comment on above: Performed By: #### C VDTBH #### [facility] [address] [place] [address] Dr. Raul Pereira Hematocrit (Bld) [Volume fraction] 37.8 % Normal 36.0-48.0 [facility] Comment on above: Performed By: #### C VDTB #### [facility] [address] [place] [address] Dr. Raul Pereira Hemoglobin (Bld) [Mass/Vol] 11.6 g/dL Critically low 12.0-16.0 [facility] Comment on above: Performed By: #### C VDTBH #### [facility] [address] [place] [address] Dr. Raul Pereira IG # 0.02 10e3/ul Normal 0.00-0.03 [facility] Comment on above: Performed By: #### C VDTBH #### [facility] [address] [place] [address] Dr. Raul Pereira IG % 0.3 % Normal 0.0-0.5 [facility] Comment on above: Performed By: #### C VDTBH #### [facility] [address] [place] [address] Dr. Raul Pereira LYMPH # 1.7 103/ul Normal 1.2-3.8 [facility] Comment on above: Performed By: #### C VDTBH #### [facility] [address] [place] [address] Dr. Raul Pereira Lymphocytes/100 WBC (Bld) 21.0 % Normal 20.5-60.0 [facility] Comment on above: Performed By: #### C VDTBH #### [facility] [address] [place] [address] Dr. Raul Pereira MANUAL DIFF REQ NO Normal [facility] Comment on above: Performed By: #### C VDTBH #### [facility] [address] [place] [address] Dr. Raul Pereira MCH (RBC) [Entitic mass] 24.1 pg Critically low 26.7-34.0 [facility] Comment on above: Performed By: #### C VDTBH #### [facility] [address] [place] [address] Dr. Raul Pereira MCHC (RBC) [Mass/Vol] 30.7 g/dL Normal 29.9-35.2 [facility] Comment on above: Performed By: #### C VDTBH #### [facility] [address] [place] [address] Dr. Raul Pereira MCV (RBC) [Entitic vol] 78.6 fL Critically low 81.0-99.0 [facility] Comment on above: Performed By: #### C VDTBH #### [facility] [address] [place] [address] Dr. Raul Pereira MONO # 0.6 103/ul Normal 0.3-0.8 [facility] Comment on above: Performed By: #### C VDTBH #### [facility] [address] [place] [address] Dr. Raul Pereira Monocytes/100 WBC (Bld) 7.5 % Normal 1.7-12.0 [facility] Comment on above: Performed By: #### C VDTBH #### [facility] [address] [place] [address] Dr. Raul Pereira NEUT # 5.4 103/ul Normal 1.4-6.5 [facility] Comment on above: Performed By: #### C VDTBH #### [facility] [address] [address] [address] Raul Pereira Neutrophils/100 WBC (Bld) 69.3 % Normal 43.0-75.0 [facility] Comment on above: Performed By: #### C VDTBH #### [facility] [address] [address] [address] Raul Pereira Platelet mean volume (Bld) [Entitic vol] 9.0 fL Critically low 9.5-13.5 [facility] Comment on above: Performed By: #### C VDTBH #### [facility] [address] [address] [address] Raul Pereira PLT 516 103/ul Critically high 150-450 [facility] Comment on above: Performed By: #### C VDTBH #### [facility] [address] [address] [address] Raul Pereira RBC 4.81 106/ul Normal 4.20-5.40 [facility] Comment on above: Performed By: #### C VDTBH #### [facility] [address] [address] [address] Raul Pereira WBC 7.8 103/ul Normal 4.0-11.0 [facility] Comment on above: Performed By: #### C VDTBH #### [facility] [address] [address] [address] Raul Pereira CULTURE BLOODon 01-10-2023 Microscopic examination of blood, culture Culture Observations: NO GROWTH AT 5 DAYS. Normal [facility] Comment on above: Performed By: #### B [id number] #### [facility] [address] [address] [address] Raul Pereira Microscopic examination of blood, culture Culture Observations: NO GROWTH AT 5 DAYS. Normal [facility] Comment on above: Performed By: #### B [id number] ####[facility] [address] [address]Dr. Raul Pereira PROF 14(COMP METB)on 02-24-2 023 Albumin [Mass/Vol] 3.7 g/dL Normal 3.4-5.0 [facility] Comment on above: Performed By: #### C BC #### [facility] [address] [place] [address] Dr. Raul Pereira Albumin/Globulin [Mass ratio] 0.9 {ratio} Normal [facility] Comment on above: Performed By: #### C BC #### [facility] [address] [place] [address] Dr. Raul Pereira ALP [Catalytic activity/Vol] 105 U/L Normal 46-116 [facility] Comment on above: Performed By: #### C BC #### [facility] [address] [place] [address] Dr. Raul Pereira ALT [Catalytic activity/Vol] 18 U/L Normal 14-59 [facility] Comment on above: Performed By: #### C BC #### [facility] [address] [place] [address] Dr. Raul Pereira Anion gap [Moles/Vol] 10.8 mmol/L Normal [facility] Comment on above: Performed By: #### C BC #### [facility] [address] [place] [address] Dr. Raul Pereira AST [Catalytic activity/Vol] 21 U/L Normal 15-37 [facility] Comment on above: Performed By: #### C BC #### [facility] [address] [place] [address] Dr. Raul Pereira Bilirubin [Mass/Vol] 0.3 mg/dL Normal 0.2-1.0 [facility] Comment on above: Performed By: #### C BC #### [facility] [address] [place] [address] Dr. Raul Pereira Calcium [Mass/Vol] 9.1 mg/dL Normal 8.5-10.1 [facility] Comment on above: Performed By: #### C BC #### [facility] [address] [place] [address] Dr. Raul Pereira Chloride [Moles/Vol] 100 mmol/L Normal 98-107 [facility] Comment on above: Performed By: #### C BC #### [facility] [address] [address] [address] Raul Pereira CO2 [Moles/Vol] 30.8 mmol/L Normal 21.0-32.0 [facility] Comment on above: Performed By: #### C BC #### [facility] [address] [address] [address] Raul Pereira Creatinine [Mass/Vol] 0.58 mg/dL Normal 0.55-1.02 [facility] Comment on above: Performed By: #### C BC #### [facility] [address] [address] [address] Raul Pereira EGFR-AF TANZANIAN >60 Normal >=60 [facility] Comment on above: Performed By: #### C BC #### [facility] [address] [place] [address] Dr. Raul Pereira EGFR-NON AF TANZANIAN >60 Normal >=60 [facility] Comment on above: Performed By: #### C BC #### [facility] [address] [place] [address] Dr. Raul Pereira Globulin (S) [Mass/Vol] 4.1 g/dL Normal [facility] Comment on above: Performed By: #### C BC #### [facility] [address] [place] [address] Dr. Raul Pereira Glucose [Mass/Vol] 86 mg/dL Normal 74-106 [facility] Comment on above: Performed By: #### C BC #### [facility] [address] [place] [address] Dr. Raul Pereira Potassium [Moles/Vol] 4.6 mmol/L Normal 3.5-5.1 [facility] Comment on above: Performed By: #### C BC #### [facility] [address] [place] [address] Dr. Raul Pereira Protein [Mass/Vol] 7.8 g/dL Normal 6.4-8.2 [facility] Comment on above: Performed By: #### C BC #### [facility] [address] [address] [address] Raul Pereira Sodium [Moles/Vol] 137 mmol/L Normal 136-145 [facility] Comment on above: Performed By: #### C BC #### [facility] [address] [address] [address] Raul Pereira Urea nitrogen [Mass/Vol] 9.0 mg/dL Normal 7.0-18.0 [facility] Comment on above: Performed By: #### C BC #### [facility] [address] [address] [address] Raul Pereira Urea nitrogen/Creatinine [Mass ratio] 15.5 mg/mg Normal [facility] Comment on above: Performed By: #### C BC #### [facility] [address] [address] [address] Raul Pereira US PREMA DOP LEG [...] JESSICA LIPSCOMB Date: 2023-01-10 10:43 Normal [facility] Covid-19 PCR (CVDTB)on 11-18 SARS-CoV-2 (COVID-19) RNA IMELDA+probe Ql (Unsp spec) Not detected Normal NOT DETECTED [facility] Comment on above: Result Comment: This test is not yet approved or cleared by the [place] FDA. When there are no FDA-approved or cleared tests available, and other criteria are met, FDA can make tests available under an emergency access mechanism called an Emergency Use Authorization (EUA). The EUA for this test is supported by the [place] of Health and Human Service's (HHS's) declaration [...] SARS-CoV-2. Performed By: #### C VDTB #### [facility] [address] [place] [address] Dr. Raul Pereira CALCIUMon 12-03-2022 Calcium [Mass/Vol] 9.7 mg/dL Normal 8.5-10.1 [facility] Comment on above: Performed By: #### C VDTBH #### [facility] [address] [place] [address] Dr. Raul Pereira CREATININEon 12-03-2022 Creatinine [Mass/Vol] 0.53 mg/dL Critically low 0.55-1.02 [facility] Comment on above: Performed By: #### C BC #### [facility] [address] [place] [address] Dr. Raul Pereira EGFR-AF TANZANIAN >60 Normal >=60 [facility] Comment on above: Performed By: #### C BC #### [facility] [address] [place] [address] Dr. Raul Pereira EGFR-NON AF TANZANIAN >60 Normal >=60 [facility] Comment on above: Performed By: #### C BC #### [facility] [address] [place] [address] Dr. Raul Pereira Office Visiton 08-27-2022 Follow-up visit [id number] HilaryLex rrmonica L 1960 F Date Provider Department Center 08/27/2022 Nella-MICAELA GUPTA [facility] SURG Second Fl No family history on file Level of Service:91210 [place] POSTOP FOLLOW UP VISIT RELATED TO ORIGINAL PX Reason for Visit and Comments: Post-op [483] - Rhett is here today for a post op visit, s/p 08/16/22 JOSE Ortiz [facility] HISTOLOGY - TISSUE EXAMon LAB AP CASE REPORT Normal [facility] Comment on above: Order Comment: Pre-o p diagnosis:Calculus of gallbladder without cholecystitis without obstruction [K80.20] Result Comment: Surg ical Pathology Case: [id number] Authorizing Provider: Micaela Gupta MD Collected: 08/16/2022 0842 Ordering Location: [facility] Main Operating Room Received: 08/16/2022 1001 Pathologist: Maricruz [place] MD Specimen: Gallbladder, GALLBLADDER Performed By: #### L [id number] ####[facility] (BEAKER)[address] [place] [place] [address] LAB AP CLINICAL INFORMATION Normal [facility] Comment on above: Order Comment: Pre-o p diagnosis:Calculus of gallbladder without cholecystitis without obstruction [K80.20] Result Comment: Pre- op diagnosis: Calculus of gallbladder without cholecystitis without obstruction [K80.20] Performed By: #### L [id number] ####[facility] (BEAKER)[address] [place] [address] LAB AP GROSS DESCRIPTION A. Gallbladder. Normal [facility] Comment on above: Order Comment: Pre-o [...] 0.1 to 0.2 cm in maximum thickness. Parole Or Probation Officer sections submitted as follows: Cassette 1: Cystic duct resection margin and neck Cassette 2: Body and fundus Ankit Koroma, Pathologists' Personal Attendant Performed By: #### L [id number] ####[facility] (BEAKER)[address] [place] [address] LAB AP MICROSCOPIC DESCRIPTION Microscopic examination performed [facility] Comment on above: Order Comment: Pre-o p diagnosis:Calculus of gallbladder without cholecystitis without obstruction [K80.20] Performed By: #### L [id number] ####[facility] (BEAKER)[address] [place] [address] LAB AP REPORT FINAL DIAGNOSIS NARRATIVE Normal [facility] Comment on above: Order Comment: Pre-o p diagnosis:Calculus of gallbladder without cholecystitis without obstruction [K80.20] Result Comment: Gall bladder, cholecystectomy: - Cholelithiasis and cholesterolosis. Performed By: #### L [id number] ####[facility] (BEAKER)[address] [place] [address] [facility] 08-16-2022 HP ----- ----- Attestation signed by Micaela Gupta MD at 08/16/2022 7:34 AM Attending Physician Statement I have discussed the case, including pertinent history and exam findings with Dr. Del Angel, residential therapist and have personally seen the patient. I agree with the assessment, plan and orders as documented. [phone] pager [phone] phone ----- [facility] General Surgery HISTORY & PHYSICAL Chief [...] bronchitis (CMS/HCC) Depression DVT (deep venous thrombosis) (CMS/HCC) Gall bladder disease GERD (gastroesophageal reflux disease) [...] (more content not included)... Normal [facility] NURSNOTEon 08-16-2022 NURSNOTE Stable. Pain minimal . DC criteria met. IV dc'd and patient getting dressed. 1155 Stable for discharge. Normal [facility] NURSNOTE DC instructions revi ewed with patient and Granddaughter, allowed time for questions, copy given. Normal [facility] NURSNOTE Report rec'd and car e assumed. No assessment changes. Pain minimal. Normal [facility] NURSNOTE 0920 Recovery called. [facility] OPNOTE CHOLECYSTECTOMY, LAPAROSCOPIC Operative Note Date: 08/16/2022 Location: [facility] OR Name: Rhett Mejia, : 1960, Diagnosis Pre-op Diagnosis * Calculus of gallbladder without cholecystitis without obstruction [K80.20] * History of gastric bypass [Z98.84] Post-op Diagnosis * Calculus of gallbladder without cholecystitis without obstruction [K80.20] * History of gastric bypass [Z98.84] Procedures CHOLECYSTECTOMY, LAPAROSCOPIC 16287 - [place] LAPS SURG CHOLECYSTECTOMY W/CHOLANGIOGRAPHY Surgeons * Micaela Gupta - Primary * Robyn Del Angel Procedure Summary Anesthesia: General ASA: III Estimated Blood Loss: 10 mL Total IV Fluids: 1000 mL Drains: * None in log * Specimens ID Source Type Tests Collected By Collected At Frozen? Priority Lab ID A Gallbladder Tissue HISTOLOGY - TISSUE EXAM Micaela Gupta MD 08/16/22 0842 No [id number] Description: GALLBLADDER Staff: Account Administrator: Zeny De La Cruz RN Scrub Person: [...] hemodynamically stable. Condition: stable Normal [facility] POCT GLUCOSE METER UNSOLICIT ED RESULTSon 08-16-2022 Glucose [Mass/Vol] 88 mg/dL Normal 70-105 [facility] Comment on above: Result Comment: epaw low Performed By: #### L [id number] #### [facility] ([place]) [address] [place] [address] POCT SARS-COV-2 PCRon 2021 POC SARS-COV-2 ANTIGEN Negative Normal Negative [facility] Comment on above: Result Comment: ID [...] Certificate of Accreditation. Performed By: #### L [id number] ####[facility] ([place])[address] [place] [address] Orders Onlyon 08-14-2022 Orders Only [id number] Lex Mejia rri L 1960 F Date Provider Department Center 08/14/2022 [id number], HISTORICAL [facility] Medical C No family history on file Normal [facility] [id number] 08-13-2022 [id number] NPO after MN Must have a vending route driver to take you home and someone to stay for 24 hours after surgery. No jewelry. Hold the meds we spoke about: NSAIDS Take the meds we spoke about w/a sip of water DOS: GAPAPENTIN, NEXIUM, INHALER, CYMBALTA Bring insurance card and ID. LABS AND COVID TO BE DONE IN [place]. Normal [facility] CBC AUTO DIFFon 08-13-2022 BASO # 0.0 103/ul Normal 0.0-0.1 [facility] Comment on above: Performed By: #### C BC #### [facility] [address] [place] [address] Dr. Raul Pereira Basophils/100 WBC (Bld) 0.4 % Normal 0.2-2.0 [facility] Comment on above: Performed By: #### C BC #### [facility] [address] [place] [address] Dr. Raul Pereira EO # 0.1 103/ul Normal 0.0-0.7 [facility] Comment on above: Performed By: #### C BC #### [facility] [address] [place] [address] Dr. Raul Pereira Eosinophils/100 WBC (Bld) 1.2 % Normal 0.9-7.0 [facility] Comment on above: Performed By: #### C BC #### [facility] [address] [place] [address] Dr. Raul Pereira Erythrocyte distribution width (RBC) [Ratio] 18.6 % Critically high 11.0-15.0 [facility] Comment on above: Performed By: #### C BC #### [facility] [address] [place] [address] Dr. Raul Pereira Hematocrit (Bld) [Volume fraction] 39.1 % Normal 36.0-48.0 [facility] Comment on above: Performed By: #### C BC #### [facility] [address] [place] [address] Dr. Raul Pereira Hemoglobin (Bld) [Mass/Vol] 12.5 g/dL Normal 12.0-16.0 [facility] Comment on above: Performed By: #### C BC #### [facility] [address] [place] [address] Dr. Raul Periera IG # 0.03 10e3/ul Normal 0.00-0.03 [facility] Comment on above: Performed By: #### C BC #### [facility] [address] [place] [address] Dr. Raul Pereira IG % 0.4 % Normal 0.0-0.5 [facility] Comment on above: Performed By: #### C BC #### [facility] [address] [place] [address] Dr. Raul Pereira LYMPH # 2.0 103/ul Normal 1.2-3.8 [facility] Comment on above: Performed By: #### C BC #### [facility] [address] [place] [address] Dr. Raul Pereira Lymphocytes/100 WBC (Bld) 27.2 % Normal 20.5-60.0 [facility] Comment on above: Performed By: #### C BC #### [facility] [address] [place] [address] Dr. Raul Pereira MANUAL DIFF REQ NO Normal [facility] Comment on above: Performed By: #### C BC #### [facility] [address] [place] [address] Dr. Raul Pereira MCH (RBC) [Entitic mass] 27.2 pg Normal 26.7-34.0 [facility] Comment on above: Performed By: #### C BC #### [facility] [address] [place] [address] Dr. Raul Pereira MCHC (RBC) [Mass/Vol] 32.0 g/dL Normal 29.9-35.2 [facility] Comment on above: Performed By: #### C BC #### [facility] [address] [place] [address] Dr. Raul Pereira MCV (RBC) [Entitic vol] 85.2 fL Normal 81.0-99.0 [facility] Comment on above: Performed By: #### C BC #### [facility] [address] [place] [address] Dr. Raul Pereira MONO # 0.7 103/ul Normal 0.3-0.8 [facility] Comment on above: Performed By: #### C BC #### [facility] [address] [place] [address] Dr. Raul Pereira Monocytes/100 WBC (Bld) 9.3 % Normal 1.7-12.0 [facility] Comment on above: Performed By: #### C BC #### [facility] [address] [address] [address] Raul Pereira NEUT # 4.4 103/ul Normal 1.4-6.5 [facility] Comment on above: Performed By: #### C BC #### [facility] [address] [address] [address] Raul Pereira Neutrophils/100 WBC (Bld) 61.5 % Normal 43.0-75.0 [facility] Comment on above: Performed By: #### C BC #### [facility] [address] [place] [address] Dr. Raul Pereira Platelet mean volume (Bld) [Entitic vol] 8.7 fL Critically low 9.5-13.5 [facility] Comment on above: Performed By: #### C BC #### [facility] [address] [place] [address] Dr. Raul Pereira PLT 387 103/ul Normal 150-450 [facility] Comment on above: Performed By: #### C BC #### [facility] [address] [place] [address] Dr. Raul Pereira RBC 4.59 106/ul Normal 4.20-5.40 [facility] Comment on above: Performed By: #### C BC #### [facility] [address] [place] [address] Dr. Raul Pereira WBC 7.2 103/ul Normal 4.0-11.0 [facility] Comment on above: Performed By: #### C BC #### [facility] [address] [place], [place] [address] Dr. Raul Pereira Covid-19 PCR ([facility])on 07-19 SARS-CoV-2 (COVID-19) RNA IMELDA+probe Ql (Unsp spec) Not detected Normal NOT DETECTED [facility] Comment on above: Result Comment: This test is not yet approved or cleared by the [place] FDA. When there are no FDA-approved or cleared tests available, and other criteria are met, FDA can make tests available under an emergency access mechanism called an Emergency Use Authorization (EUA). The EUA for this test is supported by the [place] of Health and Human Service's (HHS's) declaration [...] SARS-CoV-2. Performed By: #### C VDTB #### [facility] [address] [place] [address] Dr. Raul Pereira PROF CHEM 8 (BAS METB)on Anion gap [Moles/Vol] 11.5 mmol/L Normal [facility] Comment on above: Performed By: #### C BC #### [facility] [address] [place] [address] Dr. Raul Pereira Calcium [Mass/Vol] 9.5 mg/dL Normal 8.5-10.1 [facility] Comment on above: Performed By: #### C BC #### [facility] [address] [place] [address] Dr. Raul Pereira Chloride [Moles/Vol] 101 mmol/L Normal 98-107 [facility] Comment on above: Performed By: #### C BC #### [facility] [address] [place] [address] Dr. Raul Pereira CO2 [Moles/Vol] 29.6 mmol/L Normal 21.0-32.0 [facility] Comment on above: Performed By: #### C BC #### [facility] [address] [place] [address] Dr. Raul Pereira Creatinine [Mass/Vol] 0.65 mg/dL Normal 0.55-1.02 [facility] Comment on above: Performed By: #### C BC #### [facility] [address] [place], [place] [id number] Dr. Raul Pereira EGFR-AF TANZANIAN >60 Normal >=60 [facility] Comment on above: Performed By: #### C BC #### [facility] [address] [place] [address] Dr. Raul Pereira EGFR-NON AF TANZANIAN >60 Normal >=60 [facility] Comment on above: Performed By: #### C BC #### [facility] [address] [address] [address] Raul Pereira Glucose [Mass/Vol] 104 mg/dL Normal 74-106 [facility] Comment on above: Performed By: #### C BC #### [facility] [address] [address] [address] Raul Pereira Potassium [Moles/Vol] 4.1 mmol/L Normal 3.5-5.1 [facility] Comment on above: Performed By: #### C BC #### [facility] [address] [address] [address] Raul Pereira Sodium [Moles/Vol] 138 mmol/L Normal 136-145 [facility] Comment on above: Performed By: #### C BC #### [facility] [address] [address] [address] Raul Pereira Urea nitrogen [Mass/Vol] 11.0 mg/dL Normal 7.0-18.0 [facility] Comment on above: Performed By: #### C BC #### [facility] [address] [place] [address] Dr. Raul Pereira Urea nitrogen/Creatinine [Mass ratio] 16.9 mg/mg Normal [facility] Comment on above: Performed By: #### C BC #### [facility] [address] [place] [address] Dr. Raul Pereira Office Visiton 08-06-2022 Follow-up visit [id number] HilaryLex zeng L 1960 F Date Provider Department Center 08/06/2022 Nella-MICAELA GUPTA [facility] SURG Second Fl No family history on file Level of Service:60120 [place] OFFICE/OUTPATIENT ESTABLISHED LOW MDM 20-29 MIN Reason for Visit and Comments: Consult [484] - Rhett is here for a gallbladder consult. Rhett also c/o swelling in right leg with pain in calf. Normal [facility] PROTIME-INRon 08-06-2022 INR IN PPP BY COAGULATION ASSAY 0.89 Low 0.90-1.10 [facility] Comment on above: Result Comment: ACCC [...] 1995;108:231S-246S. Performed By: #### L [id number] #### [facility] ([facility]) [address] [place] [address] PROTHROMBIN TIME (PT) IN PPP BY COAGULATION ASSAY 12.1 Seconds Low 12.3-14.8 [facility] Comment on above: Performed By: #### L [id number] #### [facility] ([facility] [address] [place] [address] CT ABD/PELVIS WO CONon 07-24 CT ABD/PELVIS [...] by: JESSICA LIPSCOMB Date: 2022-07-24 17:21 Normal [facility] HEPATOBILIARY SCAN W EFon 07-18-2022 [place] HEPATOBILIARY [...] MEAGHAN SKINNER Date: 2022-07-18 10:22 Normal [facility] CBC AUTO DIFFon 07-13-2022 BASO # 0.0 103/ul Normal 0.0-0.1 [facility] Comment on above: Performed By: #### C BC #### [facility] [address] [address] [address] Raul Pereiar Basophils/100 WBC (Bld) 0.5 % Normal 0.2-2.0 [facility] Comment on above: Performed By: #### C BC #### [facility] [address] [address] [address] Raul Pereira EO # 0.1 103/ul Normal 0.0-0.7 [facility] Comment on above: Performed By: #### C BC #### [facility] [address] [address] [address] Raul Pereira Eosinophils/100 WBC (Bld) 0.9 % Normal 0.9-7.0 [facility] Comment on above: Performed By: #### C BC #### [facility] [address] [address] [address] Raul Pereira Erythrocyte distribution width (RBC) [Ratio] 20.2 % Critically high 11.0-15.0 [facility] Comment on above: Performed By: #### C BC #### [facility] [address] [address] [address] Raul Pereira Hematocrit (Bld) [Volume fraction] 41.1 % Normal 36.0-48.0 [facility] Comment on above: Performed By: #### C BC #### [facility] [address] [address] [address] Raul Pereira Hemoglobin (Bld) [Mass/Vol] 13.2 g/dL Normal 12.0-16.0 [facility] Comment on above: Performed By: #### C BC #### [facility] [address] [address] [address] Raul Pereira IG # 0.05 10e3/ul Critically high 0.00-0.03 [facility] Comment on above: Performed By: #### C BC #### [facility] [address] [address] [address] Raul Pereira IG % 0.6 % Critically high 0.0-0.5 [facility] Comment on above: Performed By: #### C BC #### [facility] [address] [place] [address] Dr. Raul Pereira LYMPH # 1.4 103/ul Normal 1.2-3.8 [facility] Comment on above: Performed By: #### C BC #### [facility] [address] [place] [address] Dr. Raul Pereira Lymphocytes/100 WBC (Bld) 17.3 % Critically low 20.5-60.0 [facility] Comment on above: Performed By: #### C BC #### [facility] [address] [place] [address] Dr. Raul Pereira MANUAL DIFF REQ NO Normal [facility] Comment on above: Performed By: #### C BC #### [facility] [address] [place] [address] Dr. Raul Pereira MCH (RBC) [Entitic mass] 27.3 pg Normal 26.7-34.0 [facility] Comment on above: Performed By: #### C BC #### [facility] [address] [place] [address] Dr. Raul Pereira MCHC (RBC) [Mass/Vol] 32.1 g/dL Normal 29.9-35.2 [facility] Comment on above: Performed By: #### C BC #### [facility] [address] [place] [address] Dr. Raul Pereira MCV (RBC) [Entitic vol] 84.9 fL Normal 81.0-99.0 [facility] Comment on above: Performed By: #### C BC #### [facility] [address] [place] [address] Dr. Raul Pereira MONO # 0.8 103/ul Normal 0.3-0.8 [facility] Comment on above: Performed By: #### C BC #### [facility] [address] [place] [address] Dr. Raul Pereira Monocytes/100 WBC (Bld) 10.0 % Normal 1.7-12.0 [facility] Comment on above: Performed By: #### C BC #### [facility] [address] [place] [address] Dr. Raul Pereira NEUT # 5.8 103/ul Normal 1.4-6.5 [facility] Comment on above: Performed By: #### C BC #### [facility] [address] [place] [address] Dr. Raul Pereira Neutrophils/100 WBC (Bld) 70.7 % Normal 43.0-75.0 [facility] Comment on above: Performed By: #### C BC #### [facility] [address] [place] [address] Dr. Raul Pereira Platelet mean volume (Bld) [Entitic vol] 9.1 fL Critically low 9.5-13.5 [facility] Comment on above: Performed By: #### C BC #### [facility] [address] [place] [address] Dr. Raul Pereira PLT 358 103/ul Normal 150-450 [facility] Comment on above: Performed By: #### C BC #### [facility] [address] [place] [address] Dr. Raul Pereira RBC 4.84 106/ul Normal 4.20-5.40 [facility] Comment on above: Performed By: #### C BC #### [facility] [address] [place] [address] Dr. Raul Pereira WBC 8.1 103/ul Normal 4.0-11.0 [facility] Comment on above: Performed By: #### C BC #### [facility] [address] [place] [address] Dr. Raul Pereira LIPASEon 07-13-2022 Lipase [Catalytic activity/Vol] 47.0 U/L Critically low 73.0-393.0 [facility] Comment on above: Performed By: #### C BC #### [facility] [address] [place] [address] Dr. Ralu Pereira PROF 14(COMP METB)on 022 Albumin [Mass/Vol] 3.6 g/dL Normal 3.4-5.0 [facility] Comment on above: Performed By: #### C BC #### [facility] [address] [place] [address] Dr. Raul Pereira Albumin/Globulin [Mass ratio] 1.0 {ratio} Normal [facility] Comment on above: Performed By: #### C BC #### [facility] [address] [place] [address] Dr. Raul Pereira ALP [Catalytic activity/Vol] 88 U/L Normal 46-116 [facility] Comment on above: Performed By: #### C BC #### [facility] [address] [place] [address] Dr. Raul Pereira ALT [Catalytic activity/Vol] 16 U/L Normal 14-59 [facility] Comment on above: Performed By: #### C BC #### [facility] [address] [place] [address] Dr. Raul Pereira Anion gap [Moles/Vol] 13.2 mmol/L Normal [facility] Comment on above: Performed By: #### C BC #### [facility] [address] [place] [address] Dr. Raul Pereira AST [Catalytic activity/Vol] 15 U/L Normal 15-37 [facility] Comment on above: Performed By: #### C BC #### [facility] [address] [place] [address] Dr. Raul Pereira Bilirubin [Mass/Vol] 0.2 mg/dL Normal 0.2-1.0 [facility] Comment on above: Performed By: #### C BC #### [facility] [address] [place] [address] Dr. Raul Pereira Calcium [Mass/Vol] 9.5 mg/dL Normal 8.5-10.1 [facility] Comment on above: Performed By: #### C BC #### [facility] [address] [address] [address] Raul Pereira Chloride [Moles/Vol] 100 mmol/L Normal 98-107 [facility] Comment on above: Performed By: #### C BC #### [facility] [address] [place] [address] Dr. Raul Pereira CO2 [Moles/Vol] 28.0 mmol/L Normal 21.0-32.0 [facility] Comment on above: Performed By: #### C BC #### [facility] [address] [place] [address] Dr. Raul Pereira Creatinine [Mass/Vol] 0.78 mg/dL Normal 0.55-1.02 [facility] Comment on above: Performed By: #### C BC #### [facility] [address] [place] [address] Dr. Raul Pereira EGFR-AF TANZANIAN >60 Normal >=60 [facility] Comment on above: Performed By: #### C BC #### [facility] [address] [place] [address] Dr. Raul Pereira EGFR-NON AF TANZANIAN >60 Normal >=60 [facility] Comment on above: Performed By: #### C BC #### [facility] [address] [place] [address] Dr. Raul Pereira Globulin (S) [Mass/Vol] 3.6 g/dL Normal [facility] Comment on above: Performed By: #### C BC #### [facility] [address] [place] [address] Dr. Raul Pereira Glucose [Mass/Vol] 86 mg/dL Normal 74-106 [facility] Comment on above: Performed By: #### C BC #### [facility] [address] [address] [address] Raul Pereira Potassium [Moles/Vol] 4.2 mmol/L Normal 3.5-5.1 [facility] Comment on above: Performed By: #### C BC #### [facility] [address] [place] [address] Dr. Raul Pereira Protein [Mass/Vol] 7.2 g/dL Normal 6.4-8.2 [facility] Comment on above: Performed By: #### C BC #### [facility] [address] [address] [address] Raul Pereira Sodium [Moles/Vol] 137 mmol/L Normal 136-145 [facility] Comment on above: Performed By: #### C BC #### [facility] [address] [address] [address] Raul Pereira Urea nitrogen [Mass/Vol] 11.0 mg/dL Normal 7.0-18.0 [facility] Comment on above: Performed By: #### C BC #### [facility] [address] [address] [address] Raul Pereira Urea nitrogen/Creatinine [Mass ratio] 14.1 mg/mg Normal [facility] Comment on above: Performed By: #### C BC #### [facility] [address] [place] [address] Dr. Raul Pereira US SINGLE QUAD RT UPPERon US SINGLE QUAD RT [facility] EXAM: US SINGLE QUAD RT UPPER [...] MICAH ROSAS Date: 2022-07-13 16:33 Normal [facility] Covid-19 PCR ([facility])on 06-17 SARS-CoV-2 (COVID-19) RNA IMELDA+probe Ql (Unsp spec) Not detected Normal NOT DETECTED [facility] Comment on above: Result Comment: This test is not yet approved or cleared by the [place] FDA. When there are no FDA-approved or cleared tests available, and other criteria are met, FDA can make tests available under an emergency access mechanism called an Emergency Use Authorization (EUA). The EUA for this test is supported by the [place] of Health and Human Service's (HHS's) declaration [...] consistent with SARS-CoV-2. Performed By: #### C [facility] #### [facility] [address] [place] [address] Dr. Raul Pereira Endoscopy Reporton 8 Endoscopy Report MR#: [id number] Pt[facility] Name: Rhett Mejia Surgery Date: 02/24/2018 Room #: Z0 Date of : 1960 PROCEDURE NOTEATTENDING: Xin Beasley M.D.PROCEDURE PERFORMED: EGD.SCIENTIFIC ILLUSTRATOR: Dr. Noland.SEDATION:1. Versed 10 mg.2. Fentanyl 250 [...] 02/24/2018/09:53 Kiara/Ruddy Noland M.D.Date Trans: 02/24/2018 12:13 P/Aditya_JN:[id number] cc: Napoleon Rahman M.D. [address] [facility] [address] [place] [facility] Endoscopy Report MR#: [id number] Pt. Name: Rhett Mejia Surgery Date: 02/24/2018 Room #: Z0 Date of : 1960 PROCEDURE NOTEATTENDING: Xin Beasley M.D.PROCEDURE PERFORMED: Colonoscopy and polypectomy.SCIENTIFIC ILLUSTRATOR: Ruddy Noland M.D.SEDATION: Versed 10 mg and [...] 02/24/2018/09:57 A/Ruddy Noland M.D.Date Trans: 02/24/2018 10:12 A/Aditya_JN:[id number] cc: Napoleon Rahman M.D. [address] [facility] [address] Normal [facility] POC GLUCOSE LABon 02-24-2018 Glucose mass conc 87 mg/dL Normal 70-100 [facility] Comment on above: Performed By: #### 8 [id number] ####[facility] Vital Signs Date Time Vital Sign Value Performing Clinician Facility NEGATED: Highlighted row BMI (Body Mass Index) [facility] NEGATED: Highlighted row Body Temperature Gene [facility] NEGATED: Highlighted row Body weight Gene [facility] NEGATED: Highlighted row BP Diastolic Gene [facility] NEGATED: Highlighted row BP Systolic [facility] NEGATED: Highlighted row Height Gene [facility] NEGATED: Highlighted row Pulse (Heart Rate) Gene [facility] NEGATED: Highlighted row Pulse Oximetry Gene [facility] NEGATED: Highlighted row Respiratory Rate Gene [facility] Encounters Encounter Date Encounter Type Care Provider Facility Start: 09-06-2024 End: 09-06-2024 ambulatory Monica Malagon MD Facility: [facility] Start: 08-16-2024 End: 08-16-2024 ambulatory Monica Malagon MD Facility: [facility] Start: 08-02-2024 End: 08-02-2024 ambulatory Monica Malagon MD Facility:[facility] Start: 07-30-2024 ambulatory Cristian Johnson acility:[facility] Start: 06-21-2024 End: 06-21-2024 ambulatory Monica Malagon MD Facility:[facility] Start: 09-22-2023 End: 09-22-2023 ambulatory Monica Malagon MD Facility:[facility] Start: 04-08-[address] NAPOLEON RAHMAN . [...] without abnormal findings DR NAPOLEON RAHMAN . [facility] Start: 01-31-2023 End: 02-01-2023 Encounter [...] preprocedural laboratory examination DR BETHEL LITTLE . [facility] Start: 12-13-2022 End: 12-14-2022 ambulatory [...] Facility:[facility] Start: 08-27-2022 End: 08-27-2022 ambulatory [facility] Start: 08-16-2022 End: 08-16-2022 [facility] Start: 08-15-2022 Encounter for other preprocedural examination DR MICAELA GUPTA [facility] Start: 08-15-2022 Encounter for preprocedural laboratory examination DR MICAELA GUPTA [facility] Start: 08-13-2022 End: 08-14-[address] MICAELA GUPTA Facility:[facility] Start: 08-13-2022 End: 08-14-2022 Encounter for other preprocedural examination DR MICAELA GUPTA Facility:[facility] Start: 08-06-2022 End: 08-07-2022 ambulatory MICAELA GUPTA [facility] Start: 08-06-2022 End: 08-06-2022 ambulatory MICAELA GUPTA [facility] Start: 08-06-2022 ambulatory [facility] Start: 07-24-2022 End: 07-25-[address] [...] Start: 02-24-2018 End: 02-25-2018 Ambulatory XIN BEASLEY Facility:[facility] Start: 10-19-2014 End: 10-19-2014 Patient encounter procedure [facility] Start: 12-22-2013 End: 12-22-2013 Departed Referred [facility] Start: 10-12-2001 End: 10-12-2001 Patient encounter procedure [facility] Start: 09-01-2001 End: 09-01-2001 Patient encounter procedure [facility] Start: 08-26-2001 End: 08-26-2001 Patient encounter procedure [facility] Start: 03-21-1999 End: 03-28-1999 Evaluation and management of inpatient [facility] Start: 09-07-1997 End: 09-07-1997 Admission to day surgery [facility] Start: 07-21-1997 End: 07-21-1997 Emergency department patient visit [facility] Procedures Date Procedure Procedure Detail Performing Clinician Start: 02-24-2018 Colsc flx w/removal lesion by hot bx forceps XIN BEASLEY Payers Date Payer Category Payer Unknown 2015 Medicare 1960 Self-pay 1960 Self-pay [id number] 1960 Unknown [id number] 1960 Unknown [id number] 2.16.84 0.1.486527.3.579.2.593 1960 Unknown [id number] 2.16.84 0.1.661186.3.579.2.593 1959 Unknown [id number] 2.16.84 0.1.330886.3.579.2.593 1959 Unknown [id number] 2.16.84 0.1.496293.3.579.2.593 1959 Unknown [id number] 2.16.84 0.1.839519.3.579.2.593 1959 Unknown [id number] 2.16.84 0.1.767166.3.579.2.593 1959 Unknown [id number] 2.16.84 0.1.075452.3.579.2.593 1959 Unknown [id number] 2.16.84 0.1.908283.3.579.2.593 1959 Unknown [id number] 2.16.84 0.1.042115.3.579.2.593 1959 Unknown [id number] 2.16.84 0.1.437020.3.579.2.593 1959 Unknown [id number] 2.16.84 0.1.932615.3.579.2.593 1959 Unknown [id number] 2.16.84 0.1.781716.3.579.2.593 1959 Unknown [id number] 2.16.84 0.1.235553.3.579.2.593 1959 Unknown [id number] 2.16.84 0.1.208960.3.579.2.593 1959 Unknown [id number] 2.16.84 0.1.322548.3.579.2.593 1959 Unknown [id number] 2.16.84 0.1.255097.3.579.2.593 1959 Unknown [id number] 2.16.84 0.1.422983.3.579.2.593 1959 Unknown [id number] 2.16.84 0.1.032735.3.579.2.593 1959 Unknown [id number] 2.16.84 0.1.364309.3.579.2.593 1959 Unknown [id number] 2.16.84 0.1.267695.3.579.2.593 1959 Unknown [id number] 2.16.84 0.1.372837.3.579.2.593 1959 Unknown [id number] 2.16.84 0.1.365075.3.579.2.593 1959 Unknown [id number] 2.16.84 0.1.334642.3.579.2.593 1959 Unknown [id number] 2.16.84 0.1.822321.3.579.2.593 1959 Unknown [id number] 2.16.84 0.1.467088.3.579.2.593 1959 Unknown [id number] 2.16.84 0.1.913101.3.579.2.593 1959 Unknown [id number] 2.16.84 0.1.801212.3.579.2.593 1959 Unknown [id number] 2.16.84 0.1.186035.3.579.2.593 1959 Unknown [id number] 2.16.84 0.1.537394.3.579.2.593 1959 Unknown [id number] 2.16. 840.1.345721.3.579.2.196 1959 Unknown [id number] 2.16. 840.1.745185.3.579.2.196 1959 Unknown [id number] 2.16. 840.1.009331.3.579.2.196 1959 Unknown [id number] 2.16. 840.1.006626.3.579.2.196 1959 Unknown [id number] 2.16. 840.1.287736.3.579.2.196 Medicare [id number] Unknown [id number] Unknown [id number] 2.16.84 0.1.257760.3.579.2.593 Unknown [id number] 2.16.8 40.1.351013.3.579.2.531 Clinical Notes 05-15-2022 to 02-18-2023 Note Date [...] our patients to inform us about any trkg-zwu-nyaupls medications or herbal remedies/nutritional supplements/alternative remedies. 2. [...] options with their primary care provider. [facility] 01-16-2023 Note CONSULTATION CONSULTATION DATE: 01/16/2023 [...] up in the clinic post epidural. [facility] 12-04-2022 Note CONSULTATION CONSULTATION DATE: 12/04/2022 [...] in the office after the procedure. [facility] 11-15-2022 Note CONSULTATION PROCEDURE DATE: 11/15/2022 [...] the office following her RFA procedure. [facility] 11-15-2022 Note CONSULTATION CONSULTATION DATE: 11/15/2022 [...] measures such as heat and stretches. [facility] 08-29-2022 Note CONSULTATION PROCEDURE DATE: 08/29/2022 [...] pattern. Patient tolerated the procedure well. [facility] 08-29-2022 Note CONSULTATION CONSULTATION DATE: 08/29/2022 [...] up in the office post procedure. [facility] 08-29-2022 Note CONSULTATION CONSULTATION DATE: 08/29/2022 ADDENDUM: Addendum to peer plan: We will repeat radiofrequency ablation starting on the right side and subsequently moving to the left at T11, T12 and L1, L2. [facility] 08-27-2022 Note Subjective Patient ID: Rhett [...] hour(s)). No follow-ups on file. [facility] 08-16-2022 Note Patient: Rhett rousseau Procedure Summary Date: 08/16/22 Room / Location: [facility] OPERATING ROOM 01 / [facility] Operating Room Anesthesia Start: 734 Anesthesia [...] notable events for this encounter. [facility] 08-16-2022 Note Airway Date/Time: 08/16/2022 7:44 AM Urgency: elective Airway not difficult General Information and Staff Patient location during procedure: OR Anesthesiologist: Cassi Velez MD Resident/LAY MIDWIFE/CAA: LEONARD Canales Performed: resident/LAY MIDWIFE/CAA Indications and Patient Condition Indications for airway [...] management; Dentures to Circ RN [facility] 08-16-2022 Note Patient: Rhett rousseau Procedure Information Date/Time: 08/16/2230 Procedure: CHOLECYSTECTOMY, LAPAROSCOPIC, WITH INTRAOPERATIVE CHOLANGIOGRAM, WITH LAPAROTOMY IF INDICATED REQ BRADEREJE OR MANDO HUERTA MAUK, WOODSON - C-ARM AVAIL STAFF REQUESTS: MANDO DE LA CRUZ AND SHAHID Location: [facility] OPERATING ROOM 01 / [facility] Operating Room Surgeons: Micaela Gupta MD [...] with CAA. Additional Equipment Requests [facility] 08-06-2022 Note Subjective Patient ID: Rhett [...] hour(s)). No follow-ups on file. [facility] 08-06-2022 Note Subjective Patient ID: Rhett [...] hour(s)). No follow-ups on file. [facility] 06-12-2022 Note CONSULTATION PROCEDURE DATE: 06/12/2022 [...] The patient tolerated the procedure well. [facility] 06-12-2022 Note CONSULTATION CONSULTATION DATE: 06/12/2022 [...] agrees to the plan of care. [facility] 05-15-2022 Note CONSULTATION CONSULTATION DATE: 05/15/2022 [...] Approved by: RUBY RAMIREZ . 05/16/2022 13:38:00 [facility] 05-15-2022 Note CONSULTATION PROCEDURE DATE: [...] will be followed up in the office. IF Signed and Approved by: RUBY RAMIREZ . 05/16/2022 13:38:00 [facility] Summary Purpose Family History No Family History Records FoundNo Family History Records FoundNo Family History Records FoundNo Family History Records FoundNo Family History Records Found Advance Directives No Advanced Directives Records FoundNo Advanced Directives Records FoundNo Advanced Directives Records FoundNo Advanced Directives Records FoundNo Advanced Directives Records Found Additional Source Comments INFORMATION SOURCE (unrecogn ized section and content) DATE CREATED AUTHOR 05/07/2018 [facility] DATE CREATED AUTHOR AUTHOR'S ORGANIZ ATION 09/26/2022 [facility] DATE CREATED AUTHOR AUTHOR'S ORGANIZ ATION 03/28/2023 [facility] DATE CREATED AUTHOR AUTHOR'S ORGANIZ ATION 08/01/2024 [facility] DATE CREATED AUTHOR AUTHOR'S ORGANIZ ATION 09/15/2024 [facility] FOR RECORDS PERTAINING TO PATIENTS WHO [...] BE BASED ON THE PRIMARY CLINICAL RECORDS. [facility]. provides no warranty or guarantee of the accuracy or completeness of information in this document.
--- NOTE | 2024-09-30 09:37 | PM.CN ---
Consult Note: HPI Data of Consult Patient: known to practice within the last 3 years Requesting Physician: Jennie Rowe NP Primary Care Provider: Ke Rahman MD Consult Narrative Reason for consult: f/u Narrative: Vida mason pleasant 63 year old female presents for evaluation and management of chronic neck mid back and low back pain. Patients PCP manages most of her medications, we prescribe flexeril 5-10mg TID PRN which she utilizes with benefit. patient has completed a provider guided HEP greater than 6 weeks without benefit, continues to engage in HEP as tolerated. hx of benefit to coccygeal RFAs but no longer covered by insurance. pt denies numbness tingling weakness to BLE. low back pain 6/10 increasing to 10/10 with standing walking and activity. recent bilateral L4-5 L5-S1 facet medial branch block #1 provided >80% improvement in pain/function immediately following and 12 hours after the procedure. preop pain up to 10/10 post-op pain 1-2/10. cc:: CC: Jennie Rowe NP Review of Systems ROS Status of ROS 10 or more systems reviewed and unremarkable except as noted in history and below [facility] Medical History (Updated 08/25/24 @ 11:11 by Jennie Rowe NP) Upper back pain ?M54.9 - Dorsalgia, unspecified (ICD-10) Back pain ?M54.9 - Dorsalgia, unspecified (ICD-10) Neck pain ?M54.2 - Cervicalgia (ICD-10) Suicidal behavior ?R45.89 - Other symptoms and signs involving emotional state (ICD-10) Panic attack ?F41.0 - Panic disorder [episodic paroxysmal anxiety] (ICD-10) Depressed ?F32.A - Depression, unspecified (ICD-10) Anxiety ?F41.9 - Anxiety disorder, unspecified (ICD-10) Hearing deficit ?H91.90 - Unspecified hearing loss, unspecified ear (ICD-10) Acid reflux ?K21.9 - Gastro-esophageal reflux disease without esophagitis (ICD-10) Left thyroid nodule ?E04.1 - Nontoxic single thyroid nodule (ICD-10) Smoker ?F17.200 - Nicotine dependence, unspecified, uncomplicated (ICD-10) Asthmatic bronchitis ?J45.909 - Unspecified asthma, uncomplicated (ICD-10) Surgical History History of cholecystectomy ?Z90.49 - Acquired absence of other specified parts of digestive tract (ICD-10) H/O discectomy ?Z98.890 - Other specified postprocedural states (ICD-10) H/O: hysterectomy ?Z90.710 - Acquired absence of both cervix and uterus (ICD-10) Gastric bypass status for obesity ?Z98.84 - Bariatric surgery status (ICD-10) Meds Home Medications and Allergies Home Medications ?Medication ?Instructions ?Recorded ?Confirmed ?Type buprenorphine 10 mcg/hour weekly 1 patch transdermal QWEEK 05/01/23 09/27/24 History transdermal patch (Butrans) calcium 600 mg (as cap PO .QD 05/01/23 History carbonate)-vitamin D3 5 mcg (200 unit) capsule (Calcium 600 + D(3)) cyclobenzaprine 5 mg tablet 5 mg PO TID 05/01/23 09/27/24 History dextroamphetamine-amphetamine 20 20 mg PO .QD 05/01/23 09/27/24 History mg tablet diclofenac sodium 1 % topical gel 4 g topical QID 05/01/23 09/27/24 History diclofenac sodium 75 mg 75 mg PO .QD 05/01/23 09/27/24 History tablet,delayed release duloxetine 60 mg capsule,delayed 120 mg PO DAILY 05/01/23 09/27/24 History release (Cymbalta) esomeprazole magnesium 20 mg 40 mg PO DAILY 05/01/23 09/27/24 History capsule,delayed release (Nexium) gabapentin 600 mg tablet 600 mg PO TID 05/01/23 09/27/24 History lidocaine 5 % topical ointment 1 applic 05/01/23 History ziprasidone HCl 20 mg capsule 20 mg PO .HS 05/01/23 09/27/24 History albuterol sulfate 2.5 mg/3 mL 2.5 mg 06/21/24 History (0.083 %) solution for nebulization diazepam 10 mg tablet 10 mg PO ONCE 09/06/24 09/27/24 History Allergies Allergy/AdvReac Type Severity Reaction Status Date / Time iodine Allergy unknown Verified 09/27/24 10:18 latex Allergy Unknown Verified 09/27/24 10:18 soybean Allergy Unknown Verified 09/27/24 10:18 Sulfa (Sulfonamide Allergy unknown Verified 09/27/24 10:18 Antibiotics) IV DYE Allergy Unknown Uncoded 09/06/24 08:28 Exam Constitutional Documenting provider has reviewed patient's vital signs: yes Common normals: no apparent distress, oriented x3, healthy appearing, alert and well nourished General appearance: cooperative [facility] Common normals: normocephalic, hearing grossly normal bilaterally and moist oral mucous membranes Head and scalp: normocephalic Eye Common normals: PERRL Pupil: PERRL Neck & C-Spine Common normals: full ROM General: normal visual inspection Cervical spine: no pain with cervical ROM and no cervical spine tenderness Other: negative radiculopathy negative spurlings strength 5/5 in BUE Chest Common normals: inspection of chest normal Respiratory Common normals: normal respiratory effort, no retractions and no use of accessory muscles Back & Pelvis Thoracic spine/upper back: ROM limited, pain with ROM and thoracic spinal tenderness; no paraspinal muscle tenderness Lumbar spine/lower back: ROM limited, pain with ROM, lumbar spinal tenderness and straight leg raise negative bilaterally; no paraspinal muscle tenderness Sacroiliac joints: SI joints normal Other: negative bilateral becca(patricks), gaenslens, thigh thrust, compression test negative radiculopathy strength 5/5 in BLE tenderness over t10-12 facets and L4-S1 facets, positive facet loading bilaterally Neuro Common normals: oriented x3, CN's II-XII intact bilaterally, moves all extremities, no focal motor deficits, no sensory deficits noted and deep tendon reflexes 2+ bilaterally Sensorium/orientation: alert Motor exam: strength 5/5 throughout and no movement abnormalities noted Psych Common normals: mental status grossly normal, thought process normal, cooperative, affect normal, speech normal and activity/motor behavior normal Speech: normal speech Thought process: normal thought process Results Additional Findings Additional findings: If on a controlled substance or opioids, I have checked an [place] report on this patient and there are no aberrancies noted in the prescribing history.??If on a controlled substance or opioid a drug screen was completed and reviewed within the last year, and if there has not been a drug screen completed we ordered one today to monitor higher risk, state monitored pain medication use. As part of providing excellent, safe, comprehensive care, the following was completed at our patient's visit: 1. A medication reconciliation and review to ensure accurate knowledge of current/active medications, including asking our patients to inform us about any [id number]-fhe-phdjhan medications or herbal remedies/nutritional supplements/alternative remedies. 2. A review to specifically ensure our patients have had annual screening for screening for depression, screening for tobacco use, and screening for unhealthy alcohol use. For concerning screenings had a discussion with the patient, provided patient education, and recommended follow-up with primary care provider when appropriate. If patient noted with a risk of falling, they received education on strength, gait, and balance training to prevent future risk of falling. Assessment and Plan Assessment and Plan (1) Thoracic spondylosis: (2) Lumbar spondylosis: Plan bilateral L4-5 L5-S1 MBB x2 working towards rfa for axial low back pain secondary to lumbar spondylosis unresponsive to above listed medications and HEP greater than 6 weeks continue flexeril 5-10mg TID PRN pain/spasms continue HEP as tolerated defer bilateral T10-T12 MBB #2 at this time as patient would like to address low back pain f/u after each injection
== END 2024-09-30 09:26 | disposition home or self-care (01) ==
LOC: PM 09:25
PROVIDERS: PCP Family Medicine; Visit Provider Nurse Practitioner
DX: M47.814 Spondylosis without myelopathy or radiculopathy, thoracic region (principal); M47.816 Spondylosis without myelopathy or radiculopathy, lumbar region
CPT/HCPCS: G0463

== ENCOUNTER 2024-10-11 08:47 | Day surgery (SDC) | payer MEDICARE, OTHER, SELFPAY ==
[2024-10-11 08:56] VITALS: BP 113/81; PULSE 95; TEMP 36.4; O2SAT 90
[2024-10-11 09:23] VITALS: BP 112/65; PULSE 86; O2SAT 95
[2024-10-11 09:24] VITALS: BP 111/64; PULSE 86; O2SAT 95
[2024-10-11] MEDS: BUPIVACAINE HCL 0.25% PF 25 MG/10 ML VIAL 8 ML INJ (09:26)
[2024-10-11] MEDS: LIDOCAINE HCL 2% 400 MG/20 ML MDV INJ (09:27)
--- NOTE | 2024-10-11 09:27 | W.PM.PROCNOT ---
Date of procedure: 10/11/24 Pre-op diagnosis: Pain due to lumbar spondylosis without myelopathy Post-op diagnosis: same as pre-op Procedure: Procedure: Bilateral L4-5, L5-S1 medial branch block Medications: Bupivacaine 0.25% 6cc The patient was seen and examined in the preoperative holding area.? An informed consent was obtained and placed on the chart.? The patient was brought to the medical procedure unit and placed in the prone position.? A timeout was completed verifying correct patient, procedure site, positioning, plan, and special equipment.? Using aseptic technique, the needle was placed at left L4. Under direct fluoroscopic visualization a Quincke-tipped spinal needle was advanced to the junction of the superior articulating process with the transverse process at the designated medial branch segment.? Preceded by negative aspiration, the above-mentioned injectate was placed in 1 mL aliquots.? The procedure was repeated at left L5, S1.? The needle was removed and insertion site was covered. The same procedure, at the same levels, was completed on the right side. The patient was taken to the postprocedural recovery area and monitored for an appropriate length of time before found suitable for discharge in the company of a responsible adult. Anesthesia: Local Surgeon: Monica Malagon Pathology: none sent Condition: stable Disposition: no change
== END 2024-10-11 10:30 | disposition home or self-care (01) ==
LOC: SURGOUT 08:47
PROVIDERS: PCP Family Medicine; Visit Provider Anesthesiology
DX: M47.816 Spondylosis without myelopathy or radiculopathy, lumbar region (principal)
CPT/HCPCS: 64493; 64494; J0665

== ENCOUNTER 2024-10-18 10:45 | Outpatient (OUT) | payer MEDICARE, OTHER, SELFPAY ==
--- NOTE | 2024-10-18 11:17 | P.CN_ITS ---
Consult Note: HPI Data of Consult Patient: known to practice within the last 3 years Consult date: 10/18/24 Requesting Physician: Monica Malagon MD Primary Care Provider: Ke Rahman MD Consult Narrative Reason for consult: low back pain Narrative: 64yof who presents for assessment. recently underwent two separate bilateral l4- 5, l5-s1 medial branch blocks, which provided significant relief of >80% for >2 hours and subsequent return of pain to baseline. would like to proceed with rfa. cc:: CC: Monica Malagon MD Review of Systems ROS Status of ROS 10 or more systems reviewed and unremark able except as noted in history and below [facility] Medical History (Updated 08/25/24 @ 11:11 by Jennie Rowe NP) Upper back pain ?M54.9 - Dorsalgia, unspecified (ICD-10) Back pain ?M54.9 - Dorsalgia, unspecified (ICD-10) Neck pain ?M54.2 - Cervicalgia (ICD-10) Suicidal behavior ?R45.89 - Other symptoms and signs involving emotional state (ICD-10) Panic attack ?F41.0 - Panic disorder [episodic paroxysmal anxiety] (ICD-10) Depressed ?F32.A - Depression, unspecified (ICD-10) Anxiety ?F41.9 - Anxiety disorder, unspecified (ICD-10) Hearing deficit ?H91.90 - Unspecified hearing loss, unspecified ear (ICD-10) Acid reflux ?K21.9 - Gastro-esophageal reflux disease without esophagitis (ICD-10) Left thyroid nodule ?E04.1 - Nontoxic single thyroid nodule (ICD-10) Smoker ?F17.200 - Nicotine dependence, unspecified, uncomplicated (ICD-10) Asthmatic bronchitis ?J45.909 - Unspecified asthma, uncomplicated (ICD-10) Surgical History History of cholecystectomy ?Z90.49 - Acquired absence of other specified parts of digestive tract (ICD- 10) H/O discectomy ?Z98.890 - Other specified postprocedural states (ICD-10) H/O: hysterectomy ?Z90.710 - Acquired absence of both cervix and uterus (ICD-10) Gastric bypass status for obesity ?Z98.84 - Bariatric surgery status (ICD-10) Meds Home Medications and Allergies Home Medications ?Medication ?Instructions ?Recorded ?Confirmed ?Type buprenorphine 10 mcg/hour weekly 1 patch transdermal QWEEK 05/01/23 10/11/24 History transdermal patch (Butrans) calcium 600 mg (as cap PO .QD 05/01/23 History carbonate)-vitamin D3 5 mcg (200 unit) capsule (Calcium 600 + D(3)) cyclobenzaprine 5 mg tablet 5 mg PO TID 05/01/23 10/11/24 History dextroamphetamine-amphetamine 20 20 mg PO .QD 05/01/23 10/11/24 History mg tablet diclofenac sodium 1 % topical gel 4 g topical QID 05/01/23 10/11/24 History diclofenac sodium 75 mg 75 mg PO .QD 05/01/23 10/11/24 History tablet,delayed release duloxetine 60 mg capsule,delayed 120 mg PO DAILY 05/01/23 10/11/24 History release (Cymbalta) esomeprazole magnesium 20 mg 40 mg PO DAILY 05/01/23 10/11/24 History capsule,delayed release (Nexium) gabapentin 600 mg tablet 600 mg PO TID 05/01/23 10/11/24 History lidocaine 5 % topical ointment 1 applic 05/01/23 History ziprasidone HCl 20 mg capsule 20 mg PO .HS 05/01/23 10/11/24 History albuterol sulfate 2.5 mg/3 mL 2.5 mg 06/21/24 History (0.083 %) solution for nebulization diazepam 10 mg tablet 10 mg PO ONCE 09/06/24 10/11/24 History Allergies Allergy/AdvReac Type Severity Reaction Status Date / Time iodine Allergy unknown Verified 10/11/24 09:07 latex Allergy Unknown Verified 10/11/24 09:07 soybean Allergy Unknown Verified 10/11/24 09:07 Sulfa (Sulfonamide Allergy unknown Verified 10/11/24 09:07 Antibiotics) IV DYE Allergy Unknown Uncoded 10/11/24 09:07 Exam Narrative Exam Narrative: Psych-alert and oriented x 3. Attentive and appropriate, constitutionally normal, displays normal mood and affect per situation.? There are no obvious deficits in memory, reasoning, or intellect.? Skin-no obvious rashes, bruising, erythema noted to the patient's area of pain. Extremities- extremities are warm with minimal edema and palpable pulses. Lumbar-no significant tenderness to palpation noted in the lumbar spine and paraspinal musculature.? Pain is elicited with extension, and lateral rotation of the lumbar spine. Range of motion is slightly diminished with these motions due to pain. Facet loading maneuvers are positive bilaterally and do appear to be concordant with the patient's normal complaints of pain.? Coordination remains intact.? Gait remains non-antalgic. Assessment and Plan Assessment and Plan (1) Lumbar spondylosis: Plan 64yof who presents for assessment. failed conservative measures. given significant relief with diagnostic lumbar medial branch blocks x2, prudent to proceed with bilateral l4-5, l5-s1 rfa under fluoroscopic guidance. she is in agreement. meds reviewed, no changes. follow up after procedure.
== END 2024-10-18 10:46 | disposition home or self-care (01) ==
LOC: PM 10:45
PROVIDERS: PCP Family Medicine; Visit Provider Anesthesiology
DX: M47.816 Spondylosis without myelopathy or radiculopathy, lumbar region (principal)
CPT/HCPCS: G0463

== ENCOUNTER 2024-10-25 07:17 | Day surgery (SDC) | payer MEDICARE, OTHER, SELFPAY ==
[2024-10-25 07:45] VITALS: BP 133/85; PULSE 92; TEMP 36.2; O2SAT 93
[2024-10-25] MEDS: 0.9 % SODIUM CHLORIDE 500 ML 50 ML IV (08:17)
[2024-10-25] MEDS: BUPIVACAINE HCL 0.25% PF 25 MG/10 ML VIAL 4 ML INJ (08:54)
[2024-10-25] MEDS: TRIAMCINOLONE ACETONIDE 40 MG/ML VIAL 80 MG INJ (08:55)
[2024-10-25] MEDS: LIDOCAINE HCL 2% 400 MG/20 ML MDV 16 ML INJ (08:55)
--- NOTE | 2024-10-25 09:00 | P.ON_ITS ---
Date of procedure: 10/25/24 Pre-op diagnosis: Pain due to lumbar spondylosis without myelopathy Post-op diagnosis: same as pre-op Procedure: Procedure: Bilateral L4-5, L5-S1 radiofrequency ablation Medications: Bupivacaine 0.25% 6cc, lidocaine 2% 6cc, kenalog 80mg The patient was seen and examined in the preoperative holding area.? The site was marked.? Written informed consent was obtained and placed on the chart.? The patient was brought to the medical procedure unit and placed in the prone position.? A timeout was completed verifying correct patient, procedure, positioning, and special requirements.? The skin overlying the target points, the designated medial branch, were prepped and draped in the usual sterile fashion.? The target point was achieved with a 20-gauge 15 cm with a 10 mm curved active tip radiofrequency cannula under direct fluoroscopic visualization.? The needle was inserted at level L4 on the right side. Needle tip position was confirmed with lateral fluoroscopic position.? Motor stimulation was carried out at 2 Hz up to 5 volts with the absence of extremity activity.? This was repeated at level L5, S1 on right side.?? Sensory stimulation was carried out.? Concordant pain was realized at the above- mentioned sites.? Then radiofrequency lesioning was carried out times 90 seconds at 80 degrees times 2 lesions at each level.? The radiofrequency probe was removed prior to cannula removal.? The above-mentioned injectate was placed in 1 mL increments.? The needle was removed. The same procedure, with the same steps, was then completed on the left side at the same levels. Insertion sites were covered.? The patient was taken to the postoperative recovery area and monitored for an appropriate length of time before being found suitable for discharge in the company of a responsible adult. Anesthesia: MAC Surgeon: Monica Malagon Pathology: none sent Condition: stable Disposition: no change
[2024-10-25 09:02] VITALS: BP 118/77; PULSE 88; TEMP 36.5; O2SAT 99
[2024-10-25 09:08] VITALS: BP 110/57; PULSE 88; O2SAT 98
== END 2024-10-25 09:25 | disposition home or self-care (01) ==
LOC: SURGOUT 07:19
PROVIDERS: PCP Family Medicine; Visit Provider Anesthesiology
DX: M47.816 Spondylosis without myelopathy or radiculopathy, lumbar region (principal); Z90.49 Acquired absence of other specified parts of digestive tract; Z90.710 Acquired absence of both cervix and uterus; Z98.84 Bariatric surgery status; J44.9 Chronic obstructive pulmonary disease, unspecified; F17.200 Nicotine dependence, unspecified, uncomplicated; K21.9 Gastro-esophageal reflux disease without esophagitis
CPT/HCPCS: 64635; 64636; J0665; J2704; J3301

== ENCOUNTER 2024-11-25 08:50 | Outpatient (OUT) | payer MEDICARE, OTHER, SELFPAY ==
--- NOTE | 2024-11-25 08:56 | PM.CN ---
Consult Note: HPI Data of Consult Patient: known to practice within the last 3 years Consult date: 10/18/24 Requesting Physician: Jennie Rowe NP Primary Care Provider: Ke Rahman MD Consult Narrative Reason for consult: low back pain Narrative: 64yof who presents for assessment. recently underwent two separate bilateral l4-5, l5-s1 medial branch blocks, which provided significant relief of >80% for >2 hours and subsequent return of pain to baseline. would like to proceed with rfa. cc:: CC: Jennie Rowe NP Review of Systems ROS Status of ROS 10 or more systems reviewed and unremarkable except as noted in history and below [facility] Medical History (Updated 08/25/24 @ 11:11 by Jennie Rowe NP) Upper back pain ?M54.9 - Dorsalgia, unspecified (ICD-10) Back pain ?M54.9 - Dorsalgia, unspecified (ICD-10) Neck pain ?M54.2 - Cervicalgia (ICD-10) Suicidal behavior ?R45.89 - Other symptoms and signs involving emotional state (ICD-10) Panic attack ?F41.0 - Panic disorder [episodic paroxysmal anxiety] (ICD-10) Depressed ?F32.A - Depression, unspecified (ICD-10) Anxiety ?F41.9 - Anxiety disorder, unspecified (ICD-10) Hearing deficit ?H91.90 - Unspecified hearing loss, unspecified ear (ICD-10) Acid reflux ?K21.9 - Gastro-esophageal reflux disease without esophagitis (ICD-10) Left thyroid nodule ?E04.1 - Nontoxic single thyroid nodule (ICD-10) Smoker ?F17.200 - Nicotine dependence, unspecified, uncomplicated (ICD-10) Asthmatic bronchitis ?J45.909 - Unspecified asthma, uncomplicated (ICD-10) Surgical History History of cholecystectomy ?Z90.49 - Acquired absence of other specified parts of digestive tract (ICD-10) H/O discectomy ?Z98.890 - Other specified postprocedural states (ICD-10) H/O: hysterectomy ?Z90.710 - Acquired absence of both cervix and uterus (ICD-10) Gastric bypass status for obesity ?Z98.84 - Bariatric surgery status (ICD-10) Meds Home Medications and Allergies Home Medications ?Medication ?Instructions ?Recorded ?Confirmed ?Type buprenorphine 10 mcg/hour weekly 1 patch transdermal QWEEK 05/01/23 10/25/24 History transdermal patch (Butrans) calcium 600 mg (as cap PO .QD 05/01/23 History carbonate)-vitamin D3 5 mcg (200 unit) capsule (Calcium 600 + D(3)) cyclobenzaprine 5 mg tablet 5 mg PO TID 05/01/23 10/25/24 History dextroamphetamine-amphetamine 20 20 mg PO .QD 05/01/23 10/25/24 History mg tablet diclofenac sodium 1 % topical gel 4 g topical QID 05/01/23 10/25/24 History diclofenac sodium 75 mg 75 mg PO .QD 05/01/23 10/25/24 History tablet,delayed release duloxetine 60 mg capsule,delayed 120 mg PO DAILY 05/01/23 10/25/24 History release (Cymbalta) esomeprazole magnesium 20 mg 40 mg PO DAILY 05/01/23 10/25/24 History capsule,delayed release (Nexium) gabapentin 600 mg tablet 600 mg PO TID 05/01/23 10/25/24 History lidocaine 5 % topical ointment 1 applic 05/01/23 History ziprasidone HCl 20 mg capsule 20 mg PO .HS 05/01/23 10/25/24 History albuterol sulfate 2.5 mg/3 mL 2.5 mg 06/21/24 History (0.083 %) solution for nebulization Allergies Allergy/AdvReac Type Severity Reaction Status Date / Time iodine Allergy unknown Verified 10/25/24 08:00 latex Allergy Unknown Verified 10/25/24 08:00 soybean Allergy Unknown Verified 10/11/24 09:07 Sulfa (Sulfonamide Allergy unknown Verified 10/11/24 09:07 Antibiotics) Exam Narrative Exam Narrative: Psych-alert and oriented x 3. Attentive and appropriate, constitutionally normal, displays normal mood and affect per situation.? There are no obvious deficits in memory, reasoning, or intellect.? Skin-no obvious rashes, bruising, erythema noted to the patient's area of pain. Extremities- extremities are warm with minimal edema and palpable pulses. Lumbar-no significant tenderness to palpation noted in the lumbar spine and paraspinal musculature.? Pain is elicited with extension, and lateral rotation of the lumbar spine. Range of motion is slightly diminished with these motions due to pain. Facet loading maneuvers are positive bilaterally and do appear to be concordant with the patient's normal complaints of pain.? Coordination remains intact.? Gait remains non-antalgic. Assessment and Plan Assessment and Plan (1) Lumbar spondylosis: Plan 64yof who presents for assessment. failed conservative measures. given significant relief with diagnostic lumbar medial branch blocks x2, prudent to proceed with bilateral l4-5, l5-s1 rfa under fluoroscopic guidance. she is in agreement. meds reviewed, no changes. follow up after procedure.
--- NOTE | 2024-11-25 09:52 | P.CN_ITS ---
Consult Note: HPI Data of Consult Patient: known to practice within the last 3 years Requesting Physician: Jennie Rowe NP Primary Care Provider: Ke Rahman MD Consult Narrative Reason for consult: f/u Narrative: Vida Richard a pleasant 63 year old female presents for evaluation and management of chronic neck mid back and low back pain. Patients PCP manages most of her medications, we prescribe flexeril 5-10mg TID PRN which she utilizes with benefit. patient has completed a provider guided HEP greater than 6 weeks without benefit, continues to engage in HEP as tolerated. hx of benefit to coccygeal RFAs but no longer covered by insurance. pt denies numbness tingling weakness to BLE. low back pain 2/10 increasing to 4/10, middle back pain 4/10 increasing to 7/10 with standing walking and activity. recent bilateral L4-5 L5- S1 facet medial branch RFA providing >80% improvement ongoing. Pt underwent bilateral T10,11 11,12 MBB #1 with >80% improvement in pain and function while anesthetized 08/10 and would like to move forward with MBB #2 working towards RFA cc:: CC: Jennie Rowe NP Review of Systems ROS Status of ROS 10 or more systems reviewed and unremark able except as noted in history and below [facility] Medical History (Updated 08/25/24 @ 11:11 by Jennie Rowe NP) Upper back pain ?M54.9 - Dorsalgia, unspecified (ICD-10) Back pain ?M54.9 - Dorsalgia, unspecified (ICD-10) Neck pain ?M54.2 - Cervicalgia (ICD-10) Suicidal behavior ?R45.89 - Other symptoms and signs involving emotional state (ICD-10) Panic attack ?F41.0 - Panic disorder [episodic paroxysmal anxiety] (ICD-10) Depressed ?F32.A - Depression, unspecified (ICD-10) Anxiety ?F41.9 - Anxiety disorder, unspecified (ICD-10) Hearing deficit ?H91.90 - Unspecified hearing loss, unspecified ear (ICD-10) Acid reflux ?K21.9 - Gastro-esophageal reflux disease without esophagitis (ICD-10) Left thyroid nodule ?E04.1 - Nontoxic single thyroid nodule (ICD-10) Smoker ?F17.200 - Nicotine dependence, unspecified, uncomplicated (ICD-10) Asthmatic bronchitis ?J45.909 - Unspecified asthma, uncomplicated (ICD-10) Surgical History History of cholecystectomy ?Z90.49 - Acquired absence of other specified parts of digestive tract (ICD- 10) H/O discectomy ?Z98.890 - Other specified postprocedural states (ICD-10) H/O: hysterectomy ?Z90.710 - Acquired absence of both cervix and uterus (ICD-10) Gastric bypass status for obesity ?Z98.84 - Bariatric surgery status (ICD-10) Meds Home Medications and Allergies Home Medications ?Medication ?Instructions ?Recorded ?Confirmed ?Type buprenorphine 10 mcg/hour weekly 1 patch transdermal QWEEK 05/01/23 10/25/24 History transdermal patch (Butrans) calcium 600 mg (as cap PO .QD 05/01/23 History carbonate)-vitamin D3 5 mcg (200 unit) capsule (Calcium 600 + D(3)) cyclobenzaprine 5 mg tablet 5 mg PO TID 05/01/23 10/25/24 History dextroamphetamine-amphetamine 20 20 mg PO .QD 05/01/23 10/25/24 History mg tablet diclofenac sodium 1 % topical gel 4 g topical QID 05/01/23 10/25/24 History diclofenac sodium 75 mg 75 mg PO .QD 05/01/23 10/25/24 History tablet,delayed release duloxetine 60 mg capsule,delayed 120 mg PO DAILY 05/01/23 10/25/24 History release (Cymbalta) esomeprazole magnesium 20 mg 40 mg PO DAILY 05/01/23 10/25/24 History capsule,delayed release (Nexium) gabapentin 600 mg tablet 600 mg PO TID 05/01/23 10/25/24 History lidocaine 5 % topical ointment 1 applic 05/01/23 History ziprasidone HCl 20 mg capsule 20 mg PO .HS 05/01/23 10/25/24 History albuterol sulfate 2.5 mg/3 mL 2.5 mg 06/21/24 History (0.083 %) solution for nebulization Allergies Allergy/AdvReac Type Severity Reaction Status Date / Time iodine Allergy unknown Verified 10/25/24 08:00 latex Allergy Unknown Verified 10/25/24 08:00 soybean Allergy Unknown Verified 10/11/24 09:07 Sulfa (Sulfonamide Allergy unknown Verified 10/11/24 09:07 Antibiotics) Exam Constitutional Documenting provider has reviewed patient's vital signs: yes Common normals: no apparent distress, oriented x3, healthy appearing, alert and well nourished General appearance: cooperative [facility] Common normals: normocephalic, hearing grossly normal bilaterally and moist oral mucous membranes Head and scalp: normocephalic Eye Common normals: PERRL Pupil: PERRL Neck & C-Spine Common normals: full ROM General: normal visual inspection Cervical spine: no pain with cervical ROM and no cervical spine tenderness Other: negative radiculopathy negative spurlings strength 5/5 in BUE Chest Common normals: inspection of chest normal Respiratory Common normals: normal respiratory effort, no retractions and no use of accessory muscles Back & Pelvis Thoracic spine/upper back: ROM limited, pain with ROM and thoracic spinal tenderness; no paraspinal muscle tenderness Lumbar spine/lower back: ROM limited and straight leg raise negative bilaterally; no pain with ROM, no lumbar spinal tenderness and no paraspinal muscle tenderness Sacroiliac joints: SI joints normal Other: negative bilateral becca(patricks), gaenslens, thigh thrust, compression test negative radiculopathy strength 5/5 in BLE tenderness over t10-12 facets facets, positive facet loading bilaterally Neuro Common normals: oriented x3, CN's II-XII intact bilaterally, moves all extremities, no focal motor deficits, no sensory deficits noted and deep tendon reflexes 2+ bilaterally Sensorium/orientation: alert Motor exam: strength 5/5 throughout and no movement abnormalities noted Psych Common normals: mental status grossly normal, thought process normal, cooperative, affect normal, speech normal and activity/motor behavior normal Speech: normal speech Thought process: normal thought process Results Additional Findings Additional findings: If on a controlled substance or opioids, I have checked an [place] report on this patient and there are no aberrancies noted in the prescribing history.??If on a controlled substance or opioid a drug screen was completed and reviewed within the last year, and if there has not been a drug screen completed we ordered one today to monitor higher risk, state monitored pain medication use. As part of providing excellent, safe, comprehensive care, the following was completed at our patient's visit: 1. A medication reconciliation and review to ensure accurate knowledge of current/active medications, including asking our patients to inform us about any [id number] medications or herbal remedies/nutritional supplements/alternative remedies. 2. A review to specifically ensure our patients have had annual screening for screening for depression, screening for tobacco use, and screening for unhealthy alcohol use. For concerning screenings had a discussion with the patient, provided patient education, and recommended follow-up with primary care provider when appropriate. If patient noted with a risk of falling, they received education on strength, gait, and balance training to prevent future risk of falling. Assessment and Plan Assessment and Plan (1) Lumbar spondylosis: (2) Thoracic spondylosis: Assessment and Plan: ANNIKA 42% Plan bilateral T10,11 T11,12 MBB #2 working towards RFA continue medications f/u after injection
== END 2024-11-25 08:51 | disposition home or self-care (01) ==
LOC: PM 08:51
PROVIDERS: PCP Family Medicine; Visit Provider Nurse Practitioner
DX: M47.816 Spondylosis without myelopathy or radiculopathy, lumbar region (principal); M47.814 Spondylosis without myelopathy or radiculopathy, thoracic region
CPT/HCPCS: G0463

== ENCOUNTER 2024-11-26 13:06 | Outpatient (OUT) | payer MEDICARE, OTHER, SELFPAY ==
--- NOTE | 2024-11-26 13:17 | US_ITS ---
The [address] [address] Patient Name: RHETT MEJIA MRN: [id number] date: 1960 Sex: F Assigned Patient Location: [facility] Current Patient Location: [facility] Accession/Order Number: [id number] Exam Date: 11/26/2024 13:20 Report Date: 11/26/2024 14:01 At the request of: NAPOLEON LOPEZ Procedure: US venous doppler LE RT EXAMINATION: US venous doppler LE RT HISTORY: Edema COMPARISON: No relevant comparison available. FINDINGS: REGION: Right lower extremity. THROMBI: None. COMPRESSIBILITY: Normal compressibility. FLOW: Normal waveform and antegrade flow between 5 and 20 cm/s. OTHER: None. US/US venous doppler LE RT IMPRESSION: 1. No deep vein thrombus within the right lower extremity. 2. Subcutaneous edema and multiple large superficial varicose veins. Electronically authenticated by: JESSIAC WINKLER Date: 11/26/2024 14:01
--- NOTE | 2024-11-26 13:27 | XR_ITS ---
The [address] [address] Patient Name: RHETT MEJIA MRN: [id number] date: 1960 Sex: F Assigned Patient Location: [facility] Current Patient Location: [facility] Accession/Order Number: [id number] Exam Date: 11/26/2024 13:20 Report Date: 11/26/2024 14:05 At the request of: NAPOLEON LOPEZ Procedure: XR foot LT min 3V PROCEDURE: XR foot LT min 3V HISTORY: Edema ; acute left foot pain after falling COMPARISON: None. FINDINGS: BONES:No fracture, acute abnormality, or significant arthropathy. SOFT TISSUES:Prominent dorsal soft tissue swelling. EFFUSION:None visible. OTHER: Negative. XR/XR foot LT min 3V IMPRESSION: 1. Soft tissue swelling. 2. No acute bone abnormality. Electronically authenticated by: JESSICA WINKLER Date: 11/26/2024 14:05
== END 2024-11-26 13:07 | disposition home or self-care (01) ==
LOC: RAD 13:09
PROVIDERS: PCP Family Medicine; Visit Provider Family Medicine
DX: R60.9 Edema, unspecified (principal); I83.891 Varicose veins of right lower extremity with other complications; M25.475 Effusion, left foot
CPT/HCPCS: 73630; 93971

== ENCOUNTER 2025-05-23 17:12 | Outpatient (OUT) | payer MEDICARE, OTHER, SELFPAY ==
--- OUTSIDE RECORDS SUMMARY | 2024-10-25 01:00 | XMS_ITS ---
Author Name Auto Generated Organization [facility] Care Team Providers [employer] Ax Consultant Name Role Phone Cristian Morris Attending Unavailab Cristian Du Admitting Unavailab Ke Gómez Primary Care Unavailable Giedraitis MD, Andrius Vytautjohanny Attending Unavailable Giedraitis MD, Andrius Vytautjohanny Attending Unavailable Giedraitis MD, Andrius Vytautas Attending Unavailable Giedraitis MD, Andrius Vytautas Attending Unavailable Giedraitis MD, Andrius Vytautas Attending Unavailable Giedraitis MD, Andrius Vytautas Attending Unavailable Giedraitis MD, Andrius Vytautas Attending Unavailable Giedraitis MD, Andrius Vytautas Attending Unavailable PROBLEMS No Problem Records Found PROCEDURES No Procedure Records Found RESULTS No Result Records Found ALLERGIES DATE TYPE / CODE NAME / CODE REACTION SEVERITY SOURCE 04/21/2018 Drug Allergy/6632794 02(SNOMED CT) Iodinated Contrast Media/[id number](RX NORM) Anaphylaxis Unknown 04/21/2018 Drug Allergy/8079669 02(SNOMED CT) propofol/[id number] (RXNORM) Anaphylaxis Unknown ENCOUNTERS ADMIT/DISCHARGE ACCOUNT NUMBER ADMITTING ENCOUNTER CLASS LOCATION SOURCE 10/25/2024/10/25/20 24 [id number] [facility] [place] 10/18/2024/10/18/20 24 [id number] [facility] 10/11/2024/10/11/20 24 [id number] [facility] 09/27/2024/09/27/20 24 [id number] [facility] 09/06/2024/09/06/20 24 [id number] [facility] 08/16/2024/08/16/20 24 [id number] [facility] 08/02/2024/08/02/20 24 [id number] [facility] 07/30/2024 [id number] Cristian Morris Ambulatory [facility] 06/21/2024/06/21/20 24 [id number] [facility] PAYERS ENCOUNTER GUARANTOR PAYER SUBSCRIBER SOURCE 10/25/2024 Vida BlancooDOB: [place] [address] Primary Insurance:MedicarePol icy Number: Effective Date:[id number] Name:[address] [address]RG: Vida MinorardoDOB: [id number] [address] [phone] [place] [address] 10/25/2024 Secondary Insurance:Medical MutualPolicy Number: Effective Date:[id number] Name:COMP [address] [place] [address]EM: Vida BlancooDOB: [id number] [address] [facility] 10/18/2024 Vida MinorardoDOB: [address] [address] Primary Insurance:MedicarePol icy Number: Effective Date:3811-80-85Epgi Name:[place] [address]EB: Vida L LombardoDOB: [id number] [address] [facility] 10/18/2024 Secondary Insurance:Medical MutualPolicy Number: Effective Date:0953-18-83Vsog Name:COMP O [address] Candelario[address] [place] [address]TC: Vida L LombardoDOB: [id number] [address] 10/11/2024 Vida L LombardoDOB: [address] [address] Primary Insurance:MedicarePol icy Number: Effective Date:[id number] Name:[place] [address]AS: Vida L LombardoDOB: [id number] [address] 10/11/2024 Secondary Insurance:Medical MutualPolicy Number: Effective Date:[id number] Name:JASON [address] [place] [address]NC: Vida L LombardoDOB: [id number] [address] [place] [address] 09/27/2024 Vida L LombardoDOB: [address] [address] Primary Insurance:MedicarePol icy Number: Effective Date:[id number] Name:[place] [address]LJ: Vida L LombardoDOB: [id number] [address] [place] [address] 09/27/2024 Secondary Insurance:Medical MutualPolicy Number: Effective Date:[id number] Name:JASON Guerra [facility]LE: Vida L LombardoDOB: [id number] [address] [facility] 09/06/2024 Vida L LombardoDOB: [address] [address] Primary Insurance:MedicarePol icy Number: Effective Date:[id number] Name:MEDPO [address]lan [place] [address]FW: Vida L LombardoDOB: [id number] [address] 09/06/2024 Secondary Insurance:Medical MutualPolicy Number: Effective Date:[id number] Name:[place] [address]RT: Vida L LombardoDOB: [id number] [address] 08/16/2024 Vida L LombardoDOB: [address] [address] Primary Insurance:MedicarePol icy Number: Effective Date:[id number] Name:[place] [address]VN: Vida L LombardoDOB: [id number] [address] [facility] 08/16/2024 Secondary Insurance:Medical MutualPolicy Number: Effective Date:[id number] Name:[place] [address]AY: Vida L LombardoDOB: [id number] [address] [address] [facility] 08/02/2024 Vida BlancooDOB: [address] [address] Primary Insurance:MedicarePol icy Number: Effective Date:2057-11-81Bqbz Name:[place] [address]EX: Vida BlancooDOB: [id number] [address] [address] [facility] 08/02/2024 Secondary Insurance:Medical MutualPolicy Number: Effective Date:[id number] Name:[place] [address]QX: Vida BlancooDOB: [id number] [address] [address] [facility] 07/30/2024 Vida Blancoo[address] [place] [id number]: () Primary Insurance:Self PayPolicy Number: Effective Date:2023-03-20 [facility] Vida BlancooDOB: [address] [address] Primary Insurance:MedicarePol icy Number: Effective Date:[id number] Name:[place] [address]ZF: Vida BlancooDOB: [id number] [address] [facility] 06/21/2024 Secondary Insurance:Medical MutualPolicy Number: Effective Date:[id number] Name:[place] [address]TR: Vida BlancooDOB: [id number] [address] [facility]
== END 2025-05-23 17:13 | disposition home or self-care (01) ==
LOC: US 17:14
PROVIDERS: PCP Family Medicine; Visit Provider Family Medicine
DX: L03.90 Cellulitis, unspecified (principal); I82.811 Embolism and thrombosis of superficial veins of right lower extremity
CPT/HCPCS: 93970

== ENCOUNTER 2025-06-01 10:58 | Outpatient (OUT) | payer MEDICARE, OTHER, SELFPAY ==
--- OUTSIDE RECORDS SUMMARY | 2025-05-24 16:13 | XMS_ITS ---
Author Organization The [facility] in [place] Address [address] [place] [address] Care Team Providers Care Private Advisor Name Role Phone Km Rahman Primary Care Provider REASON FOR VISIT My [facility] Nurse Medications Medication SIG (Take, Route, Frequency, Duration) Notes Start Date End Date Status Eliquis 5 MG 2 po BID for 1 week then 1 po BID Orally BID for 30 days 05/25/2025 Active Encounters Encounter Location Date Provider Diagnosis Outside Access [address] [place] [address] 025 Mk Lacey Plan Of Treatment Medication Medication Name Sig Start Date Stop Date Notes Eliquis 5 MG 2 po BID for 1 week then 1 po BID Orally BID for 30 days 05/25/2025 Progress Notes * Vida MEJIA LDOB: [birth year] (65 yo F)Acc No.[id number]:05/24/2025 Patient: Vida SALCEDO :1960 A ge:65 Y S ex:Female Address:[address] [place] [id number] * Refills Start Eliquis Tablet, 5 MG, Orally, 60, 2 po BID for 1 week then 1 po BID, BID, 30 days, Refills=11 * true * Date: Generated for Jimenai ng/Faxing/eTransmitting on: 0 06/01/2025 11:00 AM EDT
--- OUTSIDE RECORDS SUMMARY | 2025-05-25 06:40 | XMS_ITS ---
Author Organization The [facility] in [place] Address [address] [place] [address] Care Team Providers Care Business Integration Analyst Name Role Phone Km Rahman Primary Care Provider REASON FOR VISIT Eliquis Medications Medication SIG (Take, Route, Frequency, Duration) Notes Start Date End Date Status Eliquis 5 MG 2 po BID for 1 week then 1 po BID Orally BID for 30 days 05/25/2025 Active Encounters Encounter Location Date Provider Diagnosis [facility] [address] [place] [address] 05/25/2025 Km Rahman Plan Of Treatment Medication Medication Name Sig Start Date Stop Date Notes Eliquis 5 MG 2 po BID for 1 week then 1 po BID Orally BID for 30 days 05/25/2025 Progress Notes * Vida MEJIA LDOB: [birth year] (65 yo F)Acc No.[id number]:05/25/2025 Patient: Vida SALCEDO :1960 A ge:65 Y S ex:Female Address:[address] [place] [phone] * Refills Refill Eliquis Tablet, 5 MG, Orally, 60, 2 po BID for 1 week then 1 po BID, BID, 30 days, Refills=11 * true * Date: Generated for Printi ng/Fafantag/eTransmitting on: 0 06/01/2025 11:01 AM EDT
--- OUTSIDE RECORDS SUMMARY | 2025-05-27 05:57 | XMS_ITS ---
Author Organization The [facility] [place] in [place] Address [address] [place] [address] Care Team Providers Care Oncology Navigator Name Role Phone Km Rahman Primary Care Provider REASON FOR VISIT Gabapentin refill Medications Medication SIG (Take, Route, Fr equency, Duration) Notes Start Date End Date Status Gabapentin 300 MG take 2 capsules by m outh three times a day for 30 Active Encounters Encounter Location Date Provider Diagnosis [facility] [address] [place] [address] 05/27/2025 Km Lacey Plan Of Treatment Medication Medication Name Sig Start Date Stop Date Notes Gabapentin 300 MG take 2 capsules by m outh three times a day for 30 Progress Notes * Vida MEJIA LDOB: [birth year] (65 yo F)Acc No.[id number]:05/27/2025 Patient: Vida SALCEDO :1960 A ge:65 Y S ex:Female Address:[address] [place] [phone] * Refills Refill Gabapentin Capsule, 300 MG, 180 Capsule, take 2 capsules by mouth three times a day, 30, Refills=0 * true * Date: Generated for Johnathan donovan/Nereida/eTransmitting on: 0 06/01/2025 11:01 AM EDT
--- OUTSIDE RECORDS SUMMARY | 2025-06-01 11:01 | XMS_ITS | Clinical Summary ---
Author Organization [facility] Address [address] [place] [address] Care Team Providers Care Client Services Coordinator Name Role Phone eK Rahman MD Primary Care Provider [phone] Social History Tobacco Use Types Packs/Day Years Used Date Smoking Tobacco: Never Assessed Comments Unknown Sex and Gender Information Value Date Recorded Sex Assigned at Not on file Legal Sex Female 10:04 AM EST Gender Identity Not on file Sexual Orientation Not on file Plan of Treatment Health Maintenance Due Date Last Done Comments Anxiety Screening 1977 Depression Screening 1977 Hepatitis C Screening 1977 DTaP,Tdap,Td Vaccine (1 - Tdap) [address] Colonography 2004 Cologuard (FIT-DNA) 2004 Colonoscopy 2004 Colorectal Cancer Screening 2004 Diabetes Screening 2004 Fecal Occult Blood 2004 Lipid Screening 2004 Sigmoidoscopy 2004 Pneumococcal Vaccine: 50+ (1 of 1 - PCV) 2009 Shingrix Vaccine (1 of 2) 2009 Bone Density Screening 2024 Covid-19 Vaccine ( - 2023-25 season) 2024 Advance Directive Discussion 11/17/2024 Influenza Vaccine (#1) 2025 RSV Vaccine (1 - 1-dose 75+ series) 2034 Insurance [employer] PPO Member Subscriber Plan / Payer (Ef fective 2013-Present) Name:Vida Richard Relation to Subscriber:Self Name:Vida Richard Payer ID:Not on file Group ID:Not on file Type:PPO Address: [place] [id number] [id number] PPO Member Subscriber Plan / Payer ( fective 2018-Present) Name:Vida Richard Relation to Subscriber:Self Name:Vida Richard Payer ID:Not on file Type:PPO Address: [place] [id number] Care Teams Client Services Coordinator Relationship Specialty Start Date End Date Ke Rahman MD [address] [place] [address] PCP - General 06/18/04
--- OUTSIDE RECORDS SUMMARY | 2025-06-01 11:01 | XMS_ITS | Clinical Summary ---
Author Organization [facility] Address [id number] [address] [place] [address] Care Team Providers Care Electronics Scale Tester Name Role Phone Ke Rahman MD Primary Care Provider [phone] Allergies Active Allergy Reactions Criticality Noted Date Comments Latex 07/22/2019 Loratadine 05/12/2018 Penicillins 05/12/2018 Montelukast 05/12/2018 Soybean 07/22/2019 Adhesive 05/13/2018 Medications esomeprazole (NexIUM) 40 mg capsule Take 40 mg by mouth 2 (two) times a day. Active baclofen (LIORESAL) 20 mg tablet Take 20 mg by mouth nightly. Active gabapentin (NEURONTIN) 300 mg capsule Take 300 mg by mouth 3 (three) times a day. Active ziprasidone (GEODON) 40 mg capsule Take 40 mg by mouth daily. Active dextroamphetamin e-amphetamine (ADDERALL) 20 mg tablet Take 5 mg by mouth daily. Active Active Problems Problem Noted Date Diagnosed Date Benzodiazepine overdose of undetermined intent 0 05/12/2018 Immunizations Immunization Administration Dates Next Due Tdap 07/22/2019 Social History Tobacco Use Types Packs/Day Years Used Date Smoking Tobacco: Some Days Smokeless Tobacco: Never Alcohol Use Standard Drinks/Week Comments Yes 0 (1 standard drink = 0.6 oz pur e alcohol) Childcare Answer Date Recorded Childcare Unknown 04/28/2019 Employment Answer Date Recorded Employment Unknown 04/28/2019 Purpose - Life Answer Date Recorded Purpose and direction in life Unknown Comments Unknown Sex and Gender Information Value Date Recorded Sex Assigned at Not on file Legal Sex Female 11:23 AM EDT Gender Identity Not on file Sexual Orientation Not on file Last Filed Vital Signs Vital Sign Reading Time Taken Comments Blood Pressure 119/63 07/22/2019 11:58 PM EDT Pulse 91 05/13/2018 7:15 PM EDT Temperature 36.7 C (98 F) 05/13/2018 7:15 PM EDT Respiratory Rate 18 05/13/2018 7:15 PM EDT Oxygen Saturation 95% 07/23/2019 12: 20 AM EDT Inhaled Oxygen Concentration - - Weight 70.7 kg (155 lb 13.8 oz) 05/13/2018 7:00 AM EDT Height 157.5 cm (5' 2 ) 05/12/2018 9:50 PM EDT Body Mass Index 28.51 05/12/2018 9:50 PM EDT Plan of Treatment Health Maintenance Due Date Last Done Comments Depression Screening 1971 Tobacco Screening 1971 Adult BMI Screening 1977 Zoster (Shingles) Vaccine (1 of 2) 2009 Fall Risk Screening 2024 Influenza Vaccine 07/18/2025 01/07/2018 DTaP,Tdap and Td Vaccines (2 - Td or Tdap) 07/22/2029 07/22/2019 Medical Devices Not on file Insurance [employer] Advance Directives * Full Code (Latest Code Status on File) Date Activated Date Inactivated Comments 05/13/2018 10:59 AM 05/14/2018 12:25 AM Care Teams Electronics Scale Tester Relationship Specialty Start Date End Date Ke Rahman MD PCP - General 05/12/18
--- OUTSIDE RECORDS SUMMARY | 2025-06-01 11:01 | XMS_ITS | Clinical Summary ---
Author Organization [facility] Address [address] [place] [address] Care Team Providers Care Security Tech Name Role Phone Unavailable Primary Care Provider Unavailabl e Social History Tobacco Use Types Packs/Day Years Used Date Smoking Tobacco: Never Assessed Comments Unknown Sex and Gender Information Value Date Recorded Sex Assigned at Not on file Legal Sex Female 6:59 PM EDT Gender Identity Not on file Sexual Orientation Not on file Plan of Treatment Not on file
--- OUTSIDE RECORDS SUMMARY | 2025-06-01 11:02 | XMS_ITS | Patient Health Record ---
Author Organization [facility] in [place] Address [address] [place] [address] Care Team Providers Care Attenuator Name Role Phone Km Lopez Primary Care Provider Allergies Allergen (clinical drug ingredient) Drug/Non Drug Allergy documented on EMR Reaction Allergy Type Onset Date Status IV Iodine Dye (uncoded) anaphylaxis Allergy Active Latex Latex (uncoded) Unknown Allergy Acti ve Soy manzanares (uncoded) Unknown Allergy A ctive Substance with sulfonamide structure and antibacterial mechanism of action (substance) Sulfa Antibiotics Unknown Drug Allergy Active Results Component Value Reference Range Notes COVID-19, Flu A+B IH (Not ye t reviewed by provider) Interpretation: Performing Lab: Notes/Report: COVID neg FLU A neg FLU B neg Control present US venous doppler LE BI Reviewed date:11/28/2024 10:18:39 AM Interpretation: Performing Lab: Notes/Report: Source Facility: [place] [address] [place] [address] Ultrasound Report Signed Patient: VIDA MEJIA MR#: [id number] : 1960 Acct:[id number] Age/Sex: 64 / F ADM Date: 11/26/24 Loc: RAD Attending Dr: Napoleon Lopez M.D. Ordering Physician: Napoleon Lopez M.D. Date of Service: 11/26/24 Procedure(s): US venous doppler LE RT Accession Number(s): [id number] cc: Napoleon Lopez M.D. [address] [place] [id number] Patient Name: VIDA MEJIA MRN: [id number] date: 1960 Sex: F Assigned Patient Location: [facility] Current Patient Location: RAD Accession/Order Number: [id number] Exam Date: 11/26/2024 13:20 Report Date: 11/26/2024 14:01 At the request of: NAPOLEON LOPEZ Procedure: US venous doppler LE RT EXAMINATION: US venous doppler LE RT HISTORY: Edema COMPARISON: No relevant comparison available. FINDINGS: REGION: Right lower extremity. THROMBI: None. COMPRESSIBILITY: Normal compressibility. FLOW: Normal waveform and antegrade flow between 5 and 20 cm/s. OTHER: None. US/US venous doppler LE RT IMPRESSION: 1. No deep vein thrombus within the right lower extremity. 2. Subcutaneous edema and multiple large superficial varicose veins. Electronically authenticated by: REINALDO LIPSCOMB Date: 11/26/2024 14:01 Dictated By: Reinaldo Lipscomb M.D. Signed By: 11/26/24 1403 DD/ 1401 TD/TT: Experimental Welder: [place] [address] Ultrasound Report Signed Patient: GUSTAVO MEJIA MR#: [id number] : 1960 Acct:[id number] Age/Sex: 64 / F ADM Date: 11/26/24 Loc: RAD Attending Dr: Napoleon Lopez M.D. Ordering Physician: Napoleon Lopez M.D. Date of Service: 11/26/24 Procedure(s): US jaimee ous doppler LE RT Accession Number(s): [id number] cc: Napoleon Lopez M.D. [place] [id number] Patient Name: VIDA MEJIA MRN: [id number] date: 1960 Sex: F Assigned Patient Location: [facility] Current Patient Location: RAD Accession/Order Numb er: [id number] Exam Date: 11/26/2024 13:20 Report Date: 11/26/2024 14:01 At the request of: NAPOLEON LOPEZ Procedure: US venous doppler LE RT EXAMINATION: US veno us doppler LE RT HISTORY: Edema COMPARISON: No relev ant comparison available. FINDINGS: REGION: Right lower extremity. THROMBI: None. COMPRESSIBILITY: Nor mal compressibility. FLOW: Normal wavefor m and antegrade flow between 5 and 20 cm/s. OTHER: None. U S/US venous doppler LE RT IMPRESSION: 1. No deep vein thro mbus within the right lower extremity. 2. Subcutaneous harini a and multiple large superficial varicose veins. Electronically authe nticated by: REINALDO LIPSCOMB Date: 11/26/2024 14:01 Dictated By: Reinaldo Lipscomb M.D. Signed By: 11/26/24 1403 DD/ 00 TD/TT: Experimental Welder: XR foot LT min 3V Reviewed date:11/28/2024 10:18:39 AM Interpretation: Performing Lab: Notes/Report: Source Facility: [place] [address] XRay Report Signed Patient: VIDA MEJIA MR#: [id number] : 1960 Acct:[id number] Age/Sex: 64 / F ADM Date: 11/26/24 Loc: RAD Attending Dr: Napoleon Lopez M.D. Ordering Physician: Napoleon Lopez M.D. Date of Service: 11/26/24 Procedure(s): XR foot LT min 3V Accession Number(s): [id number] cc: Napoleon Lopez M.D. [place] [address] Patient Name: VIDA MEJIA MRN: [id number] date: 1960 Sex: F Assigned Patient Location: [facility] Current Patient Location: [facility] Accession/Order Number: [id number] Exam Date: 11/26/2024 13:20 Report Date: 11/26/2024 14:05 At the request of: NAPOLEON LOPEZ Procedure: XR foot LT min 3V PROCEDURE: XR foot LT min 3V HISTORY: Edema ; acute left foot pain after falling COMPARISON: None. FINDINGS: BONES:No fracture, acute abnormality, or significant arthropathy. SOFT TISSUES:Prominent dorsal soft tissue swelling. EFFUSION:None visible. OTHER: Negative. XR/XR foot LT min 3V IMPRESSION: 1. Soft tissue swelling. 2. No acute bone abnormality. Electronically authenticated by: REINALDO LIPSCOMB Date: 11/26/2024 14:05 Dictated By: Reinaldo Lipscomb M.D. Signed By: 11/26/241407 DD/ 04 TD/TT: Experimental Welder: [place] [address] XRay Report Signed Patient: GUSTAVO MEJIA MR#: [id number] : 1960 Acct:[id number] Age/Sex: 64 / F ADM Date: 11/26/24 Loc: [facility] Attending Dr: Napoleon Lopez M.D. Ordering Physician: Napoleon Lopez M.D. Date of Service: 11/26/24 Procedure(s): XR foot LT min 3V Accession Number(s): [id number] cc: Napoleon Lopez M.D. [place] [address] Patient Name: VIDA MEJIA MRN: [id number] date: 1960 Sex: F Assigned Patient Location: [facility] Current Patient Location: [facility] Accession/Order Numb er: [id number] Exam Date: 11/26/2024 13:20 Report Date: 11/26/2024 14:05 At the request of: NAPOLEON LOPEZ Procedure: XR foot LT min 3V PROCEDURE: XR foot LT min 3V HISTORY: Edema ; acu te left foot pain after falling COMPARISON: None. FINDINGS: BONES:No fracture, a cute abnormality, or significant arthropathy. SOFT TISSUES:Promine nt dorsal soft tissue swelling. EFFUSION:None visible. OTHER: Negative. X R/XR foot LT min 3V IMPRESSION: 1. Soft tissue swelling. 2. No acute bone abnormality. Electronically authe nticated by: REINALDO LIPSCOMB Date: 11/26/2024 14:05 Dictated By: Reinaldo Lipscomb M.D. Signed By: 11/26/24 1408 DD/ 140 TD/TT: Experimental Welder: CT sinus wo con Reviewed date:06/01/2024 08:44:31 PM Interpretation: Performing Lab: Notes/Report: Source Facility: [place] [address] CT Scan Report Signed Patient: VIDA MEJIA MR#: [id number] : 1960 Acct:[id number] Age/Sex: 64 / F ADM Date: 05/31/24 Loc: CT Attending Dr: Napoleon Lopez M.D. Ordering Physician: Napoleon Lopez M.D. Date of Service: 05/31/24 Procedure(s): CT sinus wo con Accession Number(s): [id number] cc: Napoleon Lopez M.D. 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 TECHNIQUE: Axial and Coronal CT images were created without IV contrast. Dose reduction techniques were achieved by using automated exposure control and/or adjustment of mA and/or kV according to patient size and/or use of iterative reconstruction technique. FINDINGS: MAXILLARY SINUSES: 2.2 x 1.6 cm fluid density inferior right maxillary sinus consistent with mucous retention cyst. A second 1.6 x 0.7 cm area of fluid density ETHMOID SINUSES: No significant mucosal thickening or fluid. Fovea ethmoidali and lamina papyracea are symmetric and intact. SPHENOID SINUSES: No significant mucosal thickening or fluid. Sphenoethmoidal recesses are patent. No bony dehiscence. FRONTAL SINUSES: No significant mucosal thickening or fluid. Frontal recesses are patent. NASAL FOSSA: deviation of the nasal septum. Bilateral nargis bullosa middle nasal turbinates OTHER: Negative. Limited views of the skull base and orbits are unremarkable. CT/CT sinus wo con IMPRESSION: 2 right maxillary sinus mucous retention cysts Electronically authenticated by: MEAGHAN SKINNER Date: 06/01/2024 12:11 Dictated By: Meaghan Skinner M.D. Signed By: 06/01/24 1213 DD/ 1211 TD/TT: Experimental Welder: [place] [address] CT Scan Report Signed Patient: GUSTAVO MEJIA MR#: [id number] : 1960 Acct:[id number] Age/Sex: 64 / F ADM Date: 05/31/24 Loc: CT Attending Dr: Napoleon Lopez M.D. Ordering Physician: Naopleon Lopez M.D. Date of Service: 05/31/24 Procedure(s): CT sinus wo con Accession Number(s): [id number] cc: Napoleon Lopez M.D. [address] [address] Patient Name: VIDA MEJIA MRN: [id number] date: 1960 Sex: F Assigned Patient Location: CT Current Patient Location: Accession/Order Numb er: [id number] Exam Date: 05/31/2024 08:10 Report Date: 06/01/2024 12:11 At the request of: NAPOLEON LOPEZ Procedure: CT sinus wo con EXAMINATION: CT sinus wo con HISTORY: Benign Neop lasm Of Maxillary Sinus D14.0 COMPARISON: No relev ant comparison available. TECHNIQUE: Axial and Coronal CT images were created without IV contrast. Dose reduction techniques were achieved by using automated exposure control and/or adjustment of mA and /or kV according to patient size and/or use of iterative reconstruction technique. FINDINGS: MAXILLARY SINUSES: 2 .2 x 1.6 cm fluid density inferior right maxillary sinus consistent with muco us retention cyst. A second 1.6 x 0.7 cm area of fluid density ETHMOID SINUSES: No significant mucosal thickening or fluid. Fovea ethmoidali and lamina papyracea are symmetric and intact. SPHENOID SINUSES: No significant mucosal thickening or fluid. Sphenoethmoidal recesses are patent. No bony dehiscence. FRONTAL SINUSES: No significant mucosal thickening or fluid. Frontal recesses are patent. NASAL FOSSA: deviati on of the nasal septum. Bilateral nargis bullosa middle nasal turbinates OTHER: Negative. Kahn ited views of the skull base and orbits are unremarkable. C T/CT sinus wo con IMPRESSION: 2 right maxillary si nus mucous retention cysts Electronically authe nticated by: MEAGHAN SKINNER Date: 06/01/2024 12:11 Dictated By: Meaghan Skinner M.D. Signed By: 06/01/24 1213 DD/ 1211 TD/TT: Experimental Welder: Reason For Referral No Information Medications Medication SIG (Take, Route, Frequency, Duration) Notes Start Date End Date Status Calcium 150 MG Orally Activ e Cymbalta 60 MG 2 capsule Orally Once a day Active Geodon 20 MG 1 capsule with food Orally once daily for 30 days Active Potassium Chloride ER 10 MEQ 1 tablet with food Orally Twice a day for 30 days MICRO K CAPSULES 02/25/2023 Active Ondansetron 4 MG 1 tablet on the tongue and allow to dissolve Orally qid for 5 days 02/02/2025 Active Vitamin C 500 MG Orally Act branden Vitamin B-12 100 MCG Orally Active Vistaril 25 MG 1 capsule at bedtime as needed Orally Once a day PRN Active Ventolin HFA 108 (90 Base) MCG/ACT 2 puff as needed Inhalation every 4 hrs 05/28/2024 Active Valtrex 1 GM 1 tablet Orally TID for 7 06/07/2023 Active Triamcinolone Acetonide 0.1 % 1 application Externally bid 12/22/2024 Active Triamcinolone Acetonide 0.1 % 1 application Externally Twice a day for 30 08/15/2023 Active Promethazine HCl 25 MG 1 suppository as needed Rectal every 12 hrs PRN Active Prolia 60 MG/ML as directed Subcutaneous Active Furosemide 20 MG 1 tablet Orally Once a day for 30 days PRN 02/25/2023 Active Ferrous Sulfate 325 (65 Fe) MG 1 tablet Orally BID Active Randa-C - as directed Orally A ctive Esomeprazole Magnesium 40 MG 1 capsule Orally BID for 90 days Active Dicyclomine HCl 20 MG 1 tablet Orally Three times a day for 30 days 08/06/2024 Active Cefdinir 300 MG 2 capsule Orally once a day for 10 days 05/23/2025 Active Doxycycline Monohydrate 100 MG 1 capsule Orally bid for 10 days 05/23/2025 Active Vitamin D 400 UNIT 2 capsules Orally Once a day Active Nyamyc 006262 UNIT/GM 1 application Externally Twice a day for 30 days PRN 09/02/2023 Active Ubwxogrl-Lfdaadapm-Wxy ameth 3.5-73340-0.1 1 drop into affected eye Ophthalmic Four times a day for 7 days 04/13/2025 Active Nebulizer/Tubing/Mouth piece - as directed PRN Active Multivitamin Adult - Orally Active Meloxicam 15 MG 1 tablet Orally Once a day for 30 days 11/26/2024 Active Magnesium 300 MG 2 capsule with a meal Orally Once a day pain clinic Active Gabapentin 300 MG take 2 capsules by mouth three times a day for 30 Active Lidocaine-Prilocaine 2.5-2.5 % Apply small amount topically twice daily for 30 days 02/06/2024 Active Buprenorphine 15 MCG/HR APPLY 1 PATCH TO SKIN ONCE A WEEK Transdermal weekly dxM51.9 for 28 days Switch pharmacy due to [facility] closing 05/06/2025 Active Incentive spirometer as directed DX: [employer]PER[employer] D BID for 30 days 01/09/2024 Active Eliquis 5 MG 2 po BID for 1 week then 1 po BID Orally BID for 30 days 05/25/2025 Active Amphetamine-Dextroamph etamine 20 MG take 1 tablet by mouth once daily for 30 05/02/2025 Active Albuterol Sulfate (2.5 MG/3ML) 0.083% 3 mL as needed Inhalation every 6 hrs PRN Active Adult Aerosol Mask - as directed PRN Active Immunizations Vaccine Route Administration Date Status Comme nts Flu, Flucelvax (3306-8790) (83655) 6 mos +, single-dose syringe IM Intramuscular 10/08/2023 Administered Tdap Unknown 07/22/2019 Administered Social History Tobacco Use: Social History Observation Description Date Details (start date - stop date) Current Smoker 11/17/1966 - NA Tobacco Use/Smoking Question Answer Notes Patient is a current smoker When did you start smoking? 11/17/1966 How often do you smoke cigarettes? every day How many cigarettes a day do you smoke? 11-20 Additional Findings: Tobacco User Heavy cigarett e smoker (20-39 cigs/day) Alcohol Screen (Audit-C) Question Answer Notes Did you have a drink containing alcohol in the p ast year? No Points 0 Interpretation Negative AUDIT-C (Standard) Question Answer Notes Did you have a drink contain ing alcohol in the past year? Yes How often did you have six o r more drinks on one occasion in the past year? Never (0 point) How many drinks did you have on a typical day when you were drinking in the past year? 1 or 2 drinks (0 point) How often did you have a dri nk containing alcohol in the past year? 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) Active confirmed Problem Acute cholecystitis (30854480) Acute cholecystitis (K81.0) Active confirmed Problem Pain in limb (17345408) Pain in right upper arm (M79.621) Active confirmed Problem Altered mental status (426377257) Altered mental status, unspecified (R41.82) Active confirmed Problem 862040702 Localized edema (R60.0) Active confirmed Problem Nonspecific tuberculin test reaction (724686593) Nonspecific reaction to tuberculin skin test without active tuberculosis (R76.11) Active confirmed Problem Contusion of head (disorder) (083385525) Contusion of other part of head, initial encounter (S00.83XA) Active confirmed Problem Migraine variant with headache (disorder) (655324106) Migraine headache (G43.909) Active confirmed Problem COPD - Chronic obstructive pulmonary disease (54551375) COPD (chronic obstructive pulmonary disease) (J44.9) Active confirmed Problem Diastolic dysfunction (4342568) Diastolic dysfunction (I51.9) Active confirmed Problem Anxiety (72862554) Anxiety (F41.9) Active confi rmed Problem Edema (98888480) Edema (R60.9) Active confirmed Problem Hyperglycemia (60058973) Hyperglycemia (R73.9) Active confirmed Problem Insomnia (084245402) Insomnia (G47.00) Active confirmed Problem Hiatal hernia (11347895) Hiatal hernia (K44.9) Active confirmed Problem Left foot drop (867126648628330) Foot drop, left foot (M21.372) Active confirmed Problem 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 Problem Bronchitis (48238512) Bronchitis (J40) Active confirmed Problem Tricuspid valve disorder (67634118) Mild tricuspid regurgitation (I07.1) Active confirmed Problem Sciatica (75129732) Sciatica of right side (M54.31) Active confirmed Problem Thyroid nodule (657633084) Thyroid nodule (E04.1) Active confirmed Problem 271299733 Lumbar disc disease (M51.9) Active confirmed Problem Skin lesion (14749615) Skin lesion (L98.9) Active confirmed Problem Well adult (004143856) Well adult (Z00.00) Active confirmed Problem Cellulitis (049441503) Cellulitis (L03.90) Active confirmed Problem Scoliosis (131032183) Scoliosis (M41.9) Active confirmed Problem Plantar fasciitis (881290781) Plantar fasciitis (M72.2) Active confirmed Problem Near syncope (934655214) Near syncope (R55) Active confirmed Problem Chest wall pain (140309095) Chest wall pain (R07.89) Active confirmed Problem Spasm of back muscles (420192870) Spasm of back muscles (M62.830) Active confirmed Problem Dystonia (14689287) Dystonia (G24.9) Active con firmed Problem Mixed conductive and sensorineural hearing loss, bilateral (082908376) Mixed hearing loss, bilateral (H90.6) Active confirmed Problem Basal cell carcinoma (0926136) Basal cell carcinoma (C44.91) Active confirmed Problem Pain in left foot (128789965522561) Left foot pain (M79.672) Active confirmed Problem Nevus (4434523535) Nevus (D22.9) Active confirm ed Problem Fibrocystic breast changes (75737798) Fibrocystic breast disease (N60.19) Active confirmed Problem Otosclerosis (84406467) 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) Active confirmed Problem Tinnitus of left ear (9840713911323) Tinnitus, left (H93.12) Active confirmed Problem Seborrheic keratosis (53251529) Keratosis, seborrheic (L82.1) Active confirmed Problem Panic attack (634485871) Panic attack (F41.0) Active confirmed Problem Superficial thrombophlebitis (5457967) Superficial thrombophlebitis (I80.9) Active confirmed Problem Cellulitis of right hand (47535356509706069) Cellulitis of right hand (L03.113) Active confirmed Problem Peripheral venous insufficiency (47041647) Venous reflux (I87.2) Active confirmed Problem Gastro-esophageal reflux disease (774776436) Gastro-esophageal reflux disease (K21.9) Active confirmed Problem Shoulder impingement syndrome (445597418) Shoulder impingement syndrome (M75.40) Active confirmed Problem Vitamin B deficiency (06026079) Deficiency of vitamin B12 (E53.8) Active confirmed Problem Leg mass, right (R22.41) Active confirmed Problem Mass of neck (090560238) Mass of neck (R22.1) Active confirmed Problem Cardiomegaly (1771330) Left atrial dilation (I51.7) Active confirmed Problem Varicose veins of lower extremity (34460996) Varicose veins of lower extremity (I83.90) Active confirmed Problem Deep vein thrombophlebitis of lower leg, unspecified laterality (I80.209) Active confirmed Problem Bruising (012322649) Bruising (T14.8XXA) Active confirmed Problem History of bypass of stomach (543514268) H/O gastric bypass (Z98.84) Active confirmed Problem Myalgia (04843909) Myalgia (M79.10) Active conf irmed Problem Benign neoplasm of maxillary sinus (99069654) 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) Active confirmed Problem Low back pain (079575309) Low back pain, unspecified (M54.50) Active confirmed Vital Signs Heart Rate 102 /min 12/08/2024 Temperature 97.0 degrees Fahrenheit 12/08/2024 Oximetry 91 % 12/08/2024 Blood pressure diastolic 82 mm Hg 05/23/2025 Height 63 in 05/23/2025 Blood pressure systolic 140 mm Hg 05/23/2025 Weight 147.6 lbs 05/23/2025 BMI 26.14 kg/m2 05/23/2025 Encounters Encounter Location Date Provider Diagnosis [facility] [address] [place] [address] 05/02/2025 [facility] [address] [place] [address] 05/04/2025 [facility] [address] [place] [address] 05/06/2025 [facility] [address] [place] [address] 05/24/2025 [facility] [address] [place] [address] 05/25/2025 [facility] [address] [place] [address] 05/27/2025 [facility] [address] [place] [address] 03/10/2025 [facility] [address] [place] [address] 03/17/2025 [facility] [address] [place] [address] 03/29/2025 [facility] [address] [place] [address] 04/12/2025 [facility] [address] [place] [address] 04/13/2025 [facility] [address] [place] [address] 04/22/2025 [facility] [address] [place] [address] 02/01/2025 [facility]m allison [facility] [address] [place] [address] 02/02/2025 Km Hoy Sciatica of right si de M54.31 [facility] [address] [place] [address] 02/07/2025 Km Hoy [facility] [address] [place] [address] 02/10/2025 [facility]m allison [facility] [address] [place] [address] 02/25/2025 Km allison [facility] [address] [place] [address] 02/25/2025 [facility]m allison [facility] [address] [place] [address] 12/16/2024 [facility]m Vizcarray Benign neoplasm of maxillary sinus D14.0 [facility] [address] [place] [address] 12/20/2024 [facility]m Zackeryy [facility] [address] [place] [address] 01/11/2025 [facility] [address] [place] [address] 01/12/2025 Km Lopez [facility] [address] [place] [address] 01/17/2025 [facility]m allison [facility] [address] [place] [address] 01/24/2025 Km Lopez [facility] [address] [place] [address] 11/19/2024 [facility]m allison [facility] [address] [place] [address] 11/26/2024 Km allison [facility] [address] [place] [address] 11/28/2024 [facility]m Zackeryy [facility] [address] [place] [address] 12/03/2024 Km allison [facility] [address] [place] [address] 12/14/2024 [facility] [address] [place] [address] 12/14/2024 Km allison [facility] [address] [place] [address] 09/23/2024 Km allison [facility] [address] [place] [address] 09/30/2024 [facility] [address] [place] [address] 10/05/2024 [facility] [address] [place] [address] 10/07/2024 [facility] [address] [place] [address] 10/27/2024 [facility] [address] [place] [address] 11/11/2024 [facility] [address] [place] [address] 08/09/2024 [facility] [address] [place] [address] 08/17/2024 [facility] [address] [place] [address] 08/26/2024 [facility] [address] [place] [address] 08/27/2024 Km allison [facility] [address] [place] [address] 09/09/2024 [facility] [address] [place] [address] 09/22/2024 [facility] [address] [place] [facility] [place] [place] [address] 06/08/2024 [facility]m allison [facility] [address] [place] [place] [place] [address] 06/29/2024 [facility] [address] [place] [place] [place] [address] 07/06/2024 Km allison [facility] [address] [place] [place] [address] 07/08/2024 [facility] [address] [place] [address] 08/06/2024 [facility] [address] [place] [address] 08/09/2024 [facility] [address] [place] [address] 06/01/2024 [facility] [address] [place] [address] 06/02/2024 [facility] [address] [place] [address] 06/08/2024 [facility] [address] [place] [address] 12/22/2024 [facility] Sciatica of right si de M54.31 [facility] [address] [place] [address] 11/25/2024 [facility] Edema R60.9 and Left foot pain M79.672 [facility] [address] [place] [address] 12/08/2024 [facility] Body aches R52 ; [address]ilee st congestion R09.89 ; Acute bronchitis, unspecified organism J20.9 ; COPD (chronic obstructive pulmonary disease) J44.9 ; Dyspnea R06.00 and Chest pain R07.9 [facility] [address] [place] [address] 05/23/2025 [facility] Cellulitis L03.90 Assessments Encounter Date Diagnosis (ICD Code) Assessment Notes Treatment Notes Treatment Clinical Notes Section Notes 12/22/2024 Sciatica of right side (ICD-10 - M54.31) oding well with patchs 11/25/2024 Edema (ICD-10 - R60.9) 11/25/2024 Left foot pain (ICD-10 - M79.672) 12/08/2024 Body aches (ICD-10 - R52) 12/08/2024 Chest congestion (ICD-10 - R09.89) 05/23/2025 Cellulitis (ICD-10 - L03.90) us to rule otu DVT and rocephin with double oral ab 12/16/2024 Benign neoplasm of maxillary sinus (ICD-10 - D14.0) 02/02/2025 Sciatica of right side (ICD-10 - M54.31) 12/08/2024 Acute bronchitis, unspecified organism (ICD-10 - J20.9) Rest and drink more liquids, especially water. You may use a humidifier or vaporizer to help keep the drainage moist. Qefs-twh-gcbwzzr Nasal Saline may help the stuffy and runny nose. Use Ibuprofen and or Tylenol as needed for fever, chills, body aches or pain. Children 5 years old should not be given wiab-sdx-dfodlrz cough and cold medications such as guaifenesin and dextromethorphan. If you're over age 5, you may try zadp-wzr-rzirlhz cold medications such as guaifenesin and dextromethorphan, or multi-symptom cold reliever such as Dayquil to help reduce the symptoms. Antibiotics have been prescribed. You should take these until completed and follow the directions. Antibiotics can sometimes cause upset stomach, and in rare cases, serious allergic reactions or serious gastrointestinal problems. If you start having severe abdominal pain, severe vomiting, or bloody diarrhea, you should be reevaluated by your physician or urgent care immediately. Follow up with your Primary Care Provider or return to clinic if symptoms do not improve within 3-5 days. If you develop severe symptoms such as shortness of breath, repeated vomiting, coughing up blood, or chest pain you should go to the emergency room or call 911 12/08/2024 COPD (chronic obstructive pulmonary disease) (ICD-10 - J44.9) 12/08/2024 Dyspnea (ICD-10 - R06.00) 12/08/2024 Chest pain (ICD-10 - R07.9) Plan Of Treatment Pending Test Test Name Order Date Lexiscan Stress Nuclear Test 12/08/2024 CT Lower Leg RT w/o contrast * (Optional 3D Rendering) 04/01/2023 Echo Complete 02/18/2024 COVID-19, Flu A+B IH 12/08/2024 CT Sinus w/o Contrast 05/25/2024 GI PANEL (PCR) 04/01/2023 OVA AND PARASITE EXAMINATION 10/02/2023 STOOL CULTURE 10/02/2023 US JAIMEE DOP LEG LT 05/23/2025 US JAIMEE DOP LEG RT 05/23/2025 US JAIMEE DOP LEG RT 11/25/2024 XR CHEST 2 V 04/06/2024 XR FOOT LT MIN 3 VIEWS 11/25/2024 C. Difficile PCR 10/02/2023 CT sinus w con 05/25/2024 Insurance Providers Payer Name Payer Address Payer Phone Subscriber Number Group Number Insured Name Patient Relationship to Insured Coverage Start Date Coverage End Date MEDICARE [place] [address] [id number] Hilary Isidoroi Self - patient is the insured MMO MEDICARE SUPPLEMENT [address] [place] [address] [id number] Isidoro Mejiai Self - patient is the insured Medications Administered Medication Instructions Date of Administration Dosage Notes Ceftriaxone 1 gram 05/23/2025 1 g Triamcinolone 40 mg/ml 12/08/2024 120 mg Medical (General) History Medical History History ICD Code Well adult Z00.00 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 J41.8 Cellulitis L03.90 Acute cholecystitis K81.0 Cellulitis of right hand L03.113 Scoliosis M41.9 Sciatica of right side M54.31 Basal cell carcinoma C44.91 Chest wall pain R07.89 Contusion of other part of head, initial encounter S00.83XA Keratosis, seborrheic L82.1 Thyroid nodule E04.1 Skin lesion L98.9 Bronchitis J40 Low back pain, unspecified M54.50 Mass of neck R22.1 Nevus D22.9 Plantar fasciitis M72.2 Foot drop, left foot M21.372 Near syncope R55 Otosclerosis H80.90 Tinnitus, left H93.12 Pain in right upper arm M79.621 Shoulder impingement syndrome M75.40 Spasm of back muscles M62.830 Bruising T14.8XXA Mixed hearing loss, bilateral H90.6 Varicose veins of lower extremity I83.90 Superficial thrombophlebitis I80.9 Myalgia M79.10 Insomnia G47.00 Panic attack F41.0 Dystonia G24.9 Anxiety F41.9 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
--- OUTSIDE RECORDS SUMMARY | 2025-06-01 11:38 | XMS_ITS | CCD ---
Author Organization [facility] Care Team Providers Care Brick Burner Head Name Role Phone NAWRAS, ALI T Unavailable Unavailable NAWRAS, ALI T Unavailable Unavailable HOKelvin, NAPOLEON Unavailable Unavailable HOELSY WarrenLAS Unavailable Unavailable GA Unavailable Unavailable NAWRAS, ALI T Unavailable Unavailable [...] Unavailable HOY ., DR BENDER Attending Unavailable OLAR, DR MEAGHAN Stanton Consulting Unavailable HOY ., [...] Unavailable HOY ., DR BENDER Attending Unavailable OLAR, DR MEAGHAN Stanton Consulting Unavailable RAMIREZ ., [...] REQUEST, DR KENNETH LISTED Consulting Unavaila ble HOY ., DR BENDER Primary Care Unavailable HOY ., DR BENDER Admitting Unavailable HOY ., DR BENDER Attending Unavailable Alexandra, Cristian Attending Unavailab le Alexandra, Cristian Admitting Unavailab Napoleon Gómez Primary Care Unavailable Giedraitis MD, Andrius Vytautas Attending Unavailable [...] Propensity to adverse reactions (disorder) 1 [facility] (2 sources) corn extract; Translations: [CORN] Drug Allergy 1 [facility] (6 sources) iodine; Translations: [IODINE] Drug Allergy 9 Edema [facility] (6 sources) Latex; Translations: [LATEX] Drug allergy (disorder) 9 Anaphylaxis [facility] (1 source) loratadine Drug Allergy 1 [facility] (2 sources) loratadine; Translations: [LORATADINE] Drug Allergy 3 [facility] (1 source) montelukast Drug Allergy 1 [facility] (3 sources) papaveretum; Translations: [SOYBEAN] Drug Allergy 1 [facility] (2 sources) Penicillins; Translations: [PENICILLINS] Drug allergy (disorder) 1 [facility] (1 source) povidone-iodine Drug Allergy 9 [facility] (6 sources) propofol; Translations: [PROPOFOL] Drug Allergy 2 Anaphylaxis [facility] (2 sources) wheat preparation; Translations: [WHEAT] Drug Allergy 2 [facility] (5 sources) Iodinated Contrast Media; Translations: [IODINATED CONTRAST MEDIA] Allergy to Substance 4 Anaphylaxis [facility] (1 source) montelukast; Translations: [MONTELUKAST] Drug Allergy 4 [facility] (1 source) oxybutynin; Translations: [DITROPAN] Drug Allergy 2 [facility] (1 source) Povidone-Iodine; Translations: [POVIDONE-IODINE] Drug Allergy 4 [facility] (1 source) Soy protein; Translations: [SOY] Propensity to adverse reactions to drug (disorder) 2 [facility] (1 source) Iodine (And Iodine Containting Drugs) Drug allergy (disorder) 4 [facility] Rep[facility] (1 source) Penicillin Drug Allergy [facility] (1 source) Sulfonamides (Antibiotic) Drug allergy (disorder) 2 [facility] (1 source) Iodine Drug Allergy 8 [facility] Repository (1 source) Latex Drug allergy (disorder) 8 [facility] (1 source) Propofol Drug Allergy 8 [facility] Medications Completed/Discontinued Medications Medication Drug [...] 07-15-2022 Episodic Other aftercare (1 source) Other skilled nursing (current) drug therapy; Translations: [OTH CORRECTION CURRENT DRUG THERAPY] Onset: 07-15-2022 Episodic Other [...] Test Name Value Interpretation Reference Range Facility [facility] CONon 03-05-20 [facility] CON EXAM: MRI [facility] CON HISTORY: Cervical radiculitis COMPARISON: 2018 neck [...] KRYSTIAN ALFARO Date: 2023-03-05 13:50 Normal [facility] CBC AUTO DIFFon 02-20-2023 BASO # 0.1 103/ul Normal 0.0-0.1 [facility] Comment on above: Performed By: #### C BC #### [facility] [address] [place] [address] Dr. Raul Pereira Basophils/100 WBC (Bld) 0.6 % Normal 0.2-2.0 [facility] Comment on above: Performed By: #### C BC #### [facility] [address] [place] [address] Dr. Raul Pereira EO # 0.2 103/ul Normal 0.0-0.7 [facility] Comment on above: Performed By: #### C BC #### [facility] [address] [place] [address] Dr. Raul Pereira Eosinophils/100 WBC (Bld) 2.3 % Normal 0.9-7.0 [facility] Comment on above: Performed By: #### C BC #### [facility] [address] [place] [address] Dr. Raul Pereira Hematocrit (Bld) [Volume fraction] 39.5 % Normal 36.0-48.0 [facility] Comment on above: Performed By: #### C BC #### [facility] [address] [place] [address] Dr. Raul Pereira Hemoglobin (Bld) [Mass/Vol] 12.3 g/dL Normal 12.0-16.0 [facility] Comment on above: Performed By: #### C BC #### [facility] [address] [place] [address] Dr. Raul Pereira IG # 0.03 10e3/ul Normal 0.00-0.03 [facility] Comment on above: Performed By: #### C BC #### [facility] [address] [place] [address] Dr. Raul Pereira IG % 0.4 % Normal 0.0-0.5 [facility] Comment on above: Performed By: #### C BC #### [facility] [address] [place] [address] Dr. Raul Pereira LYMPH # 2.1 103/ul Normal 1.2-3.8 [facility] Comment on above: Performed By: #### C BC #### [facility] [address] [place] [address] Dr. Raul Pereira Lymphocytes/100 WBC (Bld) 24.8 % Normal 20.5-60.0 [facility] Comment on above: Performed By: #### C BC #### [facility] [address] [place] [address] Dr. Raul Pereira MANUAL DIFF REQ NO Normal [facility] Comment on above: Performed By: #### C BC #### [facility] [address] [place] [address] Dr. Raul Pereira MCH (RBC) [Entitic mass] 26.3 pg Critically low 26.7-34.0 [facility] Comment on above: Performed By: #### C BC #### [facility] [address] [place] [address] Dr. Raul Pereira MCHC (RBC) [Mass/Vol] 31.1 g/dL Normal 29.9-35.2 [facility] Comment on above: Performed By: #### C BC #### [facility] [address] [place] [address] Dr. Raul Pereira MCV (RBC) [Entitic vol] 84.4 fL Normal 81.0-99.0 [facility] Comment on above: Performed By: #### C BC #### [facility] [address] [place] [address] Dr. Raul Pereira MONO # 1.0 103/ul Critically high 0.3-0.8 [facility] Comment on above: Performed By: #### C BC #### [facility] [address] [place] [address] Dr. Raul Pereira Monocytes/100 WBC (Bld) 11.8 % Normal 1.7-12.0 [facility] Comment on above: Performed By: #### C BC #### [facility] [address] [place] [address] Dr. Raul Pereira NEUT # 5.0 103/ul Normal 1.4-6.5 [facility] Comment on above: Performed By: #### C BC #### [facility] [address] [place] [address] Dr. Raul Pereira Neutrophils/100 WBC (Bld) 60.1 % Normal 43.0-75.0 [facility] Comment on above: Performed By: #### C BC #### [facility] [address] [place] [address] Dr. Raul Pereira Platelet mean volume (Bld) [Entitic vol] 8.8 fL Critically low 9.5-13.5 [facility] Comment on above: Performed By: #### C BC #### [facility] [address] [place] [address] Dr. Raul Pereira PLT 418 103/ul Normal 150-450 [facility] Comment on above: Performed By: #### C BC #### [facility] [address] [place] [address] Dr. Raul Pereira RBC 4.68 106/ul Normal 4.20-5.40 [facility] Comment on above: Performed By: #### C BC #### [facility] [address] [place] [address] Dr. Raul Pereira WBC 8.3 103/ul Normal 4.0-11.0 [facility] Comment on above: Performed By: #### C BC #### [facility] [address], [place] [address] Dr. Raul Pereira FERRITINon 02-20-2023 Ferritin [Mass/Vol] 15.0 ng/mL Normal 8.0-252.0 [facility] Comment on above: Performed By: #### C BC #### [facility] [address], [place] [address] Dr. Raul Pereira XR CSPINE 2_3 VIEWSon [...] by: JESSICA LIPSCOMB Date: 2023-02-19 06:[address] [facility] [address] LUNG CANCER SCREENINGon 0 02-13-2023 [...] by: MEAGHAN SKINNER Date: 2023-02-13 11:02 Normal [facility] ECHOCARDIO M/2D COMPLETEon 0 02-13-2023 ECHOCARDIO M/2D COMPLETE Patient: RHETT MEJIA Exam Date: 02/13/2023 : 1960 Gender:F Ordering : DR NAPOLEON RAHMAN . Admission #: [id number] Family : Order #: [id number] CLICK HERE TO VIEW EXAM ECHOCARDIOGRAM REPORT [...] M.D. on 02/13/2023 at 18:54 Normal [facility] CREATININEon 02-12-2023 Creatinine [Mass/Vol] 0.76 mg/dL Normal 0.55-1.02 [facility] Comment on above: Performed By: #### C BC #### [facility] [address] [place] [address] Dr. Raul Pereira EGFR-AF SIERRA LEONEAN >60 Normal >=60 [facility] Comment on above: Performed By: #### C BC #### [facility] [address], [place] [address] Dr. Raul Pereira EGFR-NON AF SIERRA LEONEAN >60 Normal >=60 [facility] Comment on above: Performed By: #### C BC #### [facility] [address], [place] [address] Dr. Raul Pereira MRI BRAIN WO W [...] JESSICA LIPSCOMB Date: 2023-02-12 12:37 Normal [facility] US CAROTID ART BILon 023 [...] authenticated by: JESSICA LIPSCOMB Date: 2023-02-12 14:03 [facility] COMPLIANCE DRUG SCREENon PDF . [facility] Comment on above: Performed By: #### C BC #### [facility] [address] [address] [address] Raul Pereira Summary FINAL [facility] Comment on above: Result Comment: == TOXASSURE [...] == Performed By: #### C BC #### [facility] [address] [place] [address] Dr. Raul Pereira CULTURE URINEon 02-02-2023 CULTURE [...] Trimethoprim/Sulfamethoxa zole <=20 S F Normal [facility] Comment on above: Performed By: #### U RCX #### [facility] [address] [address] [address] Raul Pereira AMMONIAon 01-31-2023 Ammonia (P) [Moles/Vol] 13 umol/L Normal 11-32 [facility] Comment on above: Performed By: #### A MM ####[facility] [address] [place] [place] [address]Dr. Raul Pereira CBC AUTO DIFFon 01-31-2023 BASO # 0.1 103/ul Normal 0.0-0.1 [facility] Comment on above: Performed By: #### C BC #### [facility] [address] [address] [address] Raul Pereira Basophils/100 WBC (Bld) 0.6 % Normal 0.2-2.0 [facility] Comment on above: Performed By: #### C BC #### [facility] [address] [place] [address] Dr. Raul Pereira EO # 0.1 103/ul Normal 0.0-0.7 [facility] Comment on above: Performed By: #### C BC #### [facility] [address] [address] [address] Raul Pereira Eosinophils/100 WBC (Bld) 1.7 % Normal 0.9-7.0 [facility] Comment on above: Performed By: #### C BC #### [facility] [address] [address] [address] Raul Pereira Erythrocyte distribution width (RBC) [Ratio] 25.9 % Critically high 11.0-15.0 [facility] Comment on above: Result Comment: 2+ a niso Performed By: #### C BC #### [facility] [address] [address] [address] Raul Pereira Hematocrit (Bld) [Volume fraction] 42.4 % Normal 36.0-48.0 [facility] Comment on above: Performed By: #### C BC #### [facility] [address] [address] [address] Raul Pereira Hemoglobin (Bld) [Mass/Vol] 13.1 g/dL Normal 12.0-16.0 [facility] Comment on above: Performed By: #### C BC #### [facility] [address] [place] [address] Dr. Raul Pereira IG # 0.02 10e3/ul Normal 0.00-0.03 [facility] Comment on above: Performed By: #### C BC #### [facility] [address] [place] [address] Dr. Raul Pereira IG % 0.2 % Normal 0.0-0.5 [facility] Comment on above: Performed By: #### C BC #### [facility] [address] [place] [address] Dr. Raul Pereira LYMPH # 2.0 103/ul Normal 1.2-3.8 [facility] Comment on above: Performed By: #### C BC #### [facility] [address] [place] [address] Dr. Raul Pereira Lymphocytes/100 WBC (Bld) 24.8 % Normal 20.5-60.0 [facility] Comment on above: Performed By: #### C BC #### [facility] [address] [place] [address] Dr. Raul Pereira MANUAL DIFF REQ NO Normal [facility] Comment on above: Performed By: #### C BC #### [facility] [address] [place] [address] Dr. Raul Pereira MCH (RBC) [Entitic mass] 25.3 pg Critically low 26.7-34.0 [facility] Comment on above: Performed By: #### C BC #### [facility] [address] [place] [address] Dr. Raul Pereira MCHC (RBC) [Mass/Vol] 30.9 g/dL Normal 29.9-35.2 [facility] Comment on above: Performed By: #### C BC #### [facility] [address] [place] [address] Dr. Raul Pereira MCV (RBC) [Entitic vol] 82.0 fL Normal 81.0-99.0 [facility] Comment on above: Performed By: #### C BC #### [facility] [address] [address] [address] Raul Pereira MONO # 0.7 103/ul Normal 0.3-0.8 [facility] Comment on above: Performed By: #### C BC #### [facility] [address] [address] [address] Raul Pereira Monocytes/100 WBC (Bld) 8.8 % Normal 1.7-12.0 [facility] Comment on above: Performed By: #### C BC #### [facility] [address] [place] [address] Dr. Raul Pereira NEUT # 5.2 103/ul Normal 1.4-6.5 [facility] Comment on above: Performed By: #### C BC #### [facility] [address] [place] [address] Dr. Raul Pereira Neutrophils/100 WBC (Bld) 63.9 % Normal 43.0-75.0 [facility] Comment on above: Performed By: #### C BC #### [facility] [address] [place] [address] Dr. Raul Pereira Platelet mean volume (Bld) [Entitic vol] 9.2 fL Critically low 9.5-13.5 [facility] Comment on above: Performed By: #### C BC #### [facility] [address] [place] [address] Dr. Raul Pereira PLT 334 103/ul Normal 150-450 [facility] Comment on above: Performed By: #### C BC #### [facility] [address] [place] [address] Dr. Raul Pereira RBC 5.17 106/ul Normal 4.20-5.40 [facility] Comment on above: Performed By: #### C BC #### [facility] [address] [place] [address] Dr. Raul Pereira WBC 8.2 103/ul Normal 4.0-11.0 [facility] Comment on above: Performed By: #### C BC #### [facility] [address], [place] [address] Dr. Raul Pereira SARA - LIPID PROFILEon 2022 CHOL-HDL RATIO NORM SEE BELOW Normal [facility] Comment on above: Result Comment: 3.3 - 4.4 LOW RISK 4.4 - 7.1 AVERAGE RISK 7.1 - 11.0 MODERATE RISK >11.0 HIGH RISK Performed By: #### D ATLIPI ####[facility] [address] [place], [place] [address]Rp. Raul Pereira Cholesterol [Mass/Vol] 178 mg/dL Normal <=200 [facility] Comment on above: Performed By: #### D ATLIPI ####[facility] [address] [place] [id number] Pereira Cholesterol in HDL [Mass/Vol] 73 mg/dL Critically high 40-60 [facility] Comment on above: Performed By: #### D ATLIPI ####[facility] [address] [place] [id number] Pereira Cholesterol in LDL [Mass/Vol] 72.0 mg/dL Normal [facility] Comment on above: Performed By: #### D ATLIPI ####[facility] [address] [place] [id number]. Raul Pereira Cholesterol.total/C holesterol in HDL [Mass ratio] 2.4 {ratio} Normal [facility] Comment on above: Performed By: #### D ATLIPI ####[facility] [address] [place] [id number]. Raul Pereira HDL NORMAL > or = 60 mg/dl - LO W CARDIOVASCULAR RISK <40 mg/dl - HIGH CARDIOVASCULAR RISK Normal [facility] Comment on above: Performed By: #### D ATLIPI ####[facility] [address] [place] [id number]. Raul Pereira LDL CALC NORMAL SEE BELOW Normal [facility] Comment on above: Result Comment: <100 mg/dl OPTIMAL 100 - 129 mg/dl NEAR OR ABOVE OPTIMAL 130 - 159 mg/dl BORDERLINE HIGH 160 - 189 mg/dl HIGH >190 mg/dl VERY HIGH Performed By: #### D ATLIPI ####[facility] [address] [place] [address]Dr. Raul Pereira Triglyceride [Mass/Vol] 165 mg/dL Critically high <=150 [facility] Comment on above: Performed By: #### D ATLIPI ####[facility] [address] [place] [address]DrLeann Pereira VLDL CALC 33.0 mg/dL Normal [facility] Comment on above: Performed By: #### D ATLIPI ####[facility] [address] [place] [address]DrLeann Pereira DRUG SCREEN RAPID (URINE)on 01-31-2023 AMP Positive Abnormal NEGATIVE [facility] Comment on above: Performed By: #### C BC #### [facility] [address] [address] [address] Raul Pereira BAR Negative Normal NEGATIVE [facility] Comment on above: Performed By: #### C BC #### [facility] [address] [place] [address] [address] Raul Pereira BUP Positive Abnormal NEGATIVE [facility] Comment on above: Performed By: #### C BC #### [facility] [address] [address] [address] Raul Pereira BZO Negative Normal NEGATIVE [facility] Comment on above: Performed By: #### C BC #### [facility] [address] [address] [address] Raul Pereira RADHA Negative Normal NEGATIVE [facility] Comment on above: Performed By: #### C BC #### [facility] [address] [address] [address] Raul Pereira CUT-OFFS SEE BELOW Normal [facility] Comment on above: Result Comment: AMP [...] ng/mL Performed By: #### C BC #### [facility] [address] [place] [address] Dr. Raul Pereira DRUG CUT HEADER DRUG CLASS TEST SYST EM CUT-OFF CONCENTRATIONS ARE FOLLOWS: Normal [facility] Comment on above: Performed By: #### C BC #### [facility] [address] [place] [address] Dr. Raul Pereira mAMP Negative Normal NEGATIVE [facility] Comment on above: Performed By: #### C BC #### [facility] [address] [place] [address] Dr. Raul Pereira MTD Negative Normal NEGATIVE [facility] Comment on above: Performed By: #### C BC #### [facility] [address] [place] [address] Dr. Raul Pereira OPI Negative Normal NEGATIVE [facility] Comment on above: Performed By: #### C BC #### [facility] [address] [place] [address] Dr. Raul Pereira OXY Negative Normal NEGATIVE [facility] Comment on above: Performed By: #### C BC #### [facility] [address] [place] [address] Dr. Raul Pereira PCP Negative Normal NEGATIVE [facility] Comment on above: Performed By: #### C BC #### [facility] [address] [place] [address] Dr. Raul Pereira PPX Negative Normal NEGATIVE [facility] Comment on above: Performed By: #### C BC #### [facility] [address] [place] [address] Dr. Raul Pereira TCA Positive Abnormal NEGATIVE [facility] Comment on above: Performed By: #### C BC #### [facility] [address] [place] [address] Dr. Raul Pereira THC Negative Normal NEGATIVE [facility] Comment on above: Performed By: #### C BC #### [facility] [address] [address] [address] Raul Pereira FREE THYROXINE INDEX T7on FTI 2.89 Normal 1.30-4.50 [facility] Comment on above: Performed By: #### C VDTBH #### [facility] [address] [address] [address] Raul Pereira T3U 39.0 % Normal 30.0-39.0 [facility] Comment on above: Performed By: #### C VDTBH #### [facility] [address] [address] [address] Raul Pereira T4 [Mass/Vol] 7.40 ug/dL Normal 4.80-13.90 [facility] Comment on above: Performed By: #### C VDTBH #### [facility] [address] [address] [address] Raul Pereira GLYCOHEMOGLOBIN A1Con 2022 ADA RECOMMENDATION SEE BELOW Normal [facility] Comment on above: Result Comment: ADA RECOMMENDED LIMIT 4.0 - 6.0 ADA THERAPEUTIC TARGET < 7.0 ACTION SUGGESTED > 7.0 Performed By: #### D ATA1C ####[facility] [address] [place] [address]Dr. Raul Pereira Glucose [Mass/Vol] 108 mg/dL Normal [facility] Comment on above: Performed By: #### D ATA1C ####[facility] [address] [place] [address]DrLeann Pereira HbA1c (Bld) [Mass fraction] 5.4 % Normal 4.5-6.2 [facility] Comment on above: Performed By: #### D ATA1C ####[facility] [address] [place] [address]Dr. Raul Pereira IRONon 01-31-2023 Iron [Mass/Vol] 225.0 ug/dL Critically high 50.0-170.0 [facility] Comment on above: Performed By: #### C VDTBH #### [facility] [address] [address] [address] Raul Pereira PROF 14(COMP METB)on 023 Albumin [Mass/Vol] 3.8 g/dL Normal 3.4-5.0 [facility] Comment on above: Performed By: #### C VDTBH #### [facility] [address] [place] [address] Dr. Raul Pereira Albumin/Globulin [Mass ratio] 1.2 {ratio} Normal [facility] Comment on above: Performed By: #### C VDTBH #### [facility] [address] [place] [address] Dr. Raul Pereira ALP [Catalytic activity/Vol] 77 U/L Normal 46-116 [facility] Comment on above: Performed By: #### C VDTBH #### [facility] [address] [place] [address] Dr. Raul Pereira ALT [Catalytic activity/Vol] 19 U/L Normal 14-59 [facility] Comment on above: Performed By: #### C VDTBH #### [facility] [address] [place] [address] Dr. Raul Pereira Anion gap [Moles/Vol] 12.9 mmol/L Normal [facility] Comment on above: Performed By: #### C VDTBH #### [facility] [address] [place] [address] Dr. Raul Pereira AST [Catalytic activity/Vol] 17 U/L Normal 15-37 [facility] Comment on above: Performed By: #### C VDTBH #### [facility] [address] [place] [address] Dr. Raul Pereira Bilirubin [Mass/Vol] 0.3 mg/dL Normal 0.2-1.0 [facility] Comment on above: Performed By: #### C VDTBH #### [facility] [address] [place] [address] Dr. Raul Pereira Calcium [Mass/Vol] 8.9 mg/dL Normal 8.5-10.1 [facility] Comment on above: Performed By: #### C VDTBH #### [facility] [address] [address] [address] Raul Pereira Chloride [Moles/Vol] 101 mmol/L Normal 98-107 [facility] Comment on above: Performed By: #### C VDTBH #### [facility] [address] [address] [address] Raul Pereira CO2 [Moles/Vol] 28.5 mmol/L Normal 21.0-32.0 [facility] Comment on above: Performed By: #### C VDTBH #### [facility] [address] [place] [address] Dr. Raul Pereira Creatinine [Mass/Vol] 0.59 mg/dL Normal 0.55-1.02 [facility] Comment on above: Performed By: #### C VDTBH #### [facility] [address] [place] [address] Dr. Raul Pereira EGFR-AF SIERRA LEONEAN >60 Normal >=60 [facility] Comment on above: Performed By: #### C VDTBH #### [facility] [address] [place] [address] Dr. Raul Pereira EGFR-NON AF SIERRA LEONEAN >60 Normal >=60 [facility] Comment on above: Performed By: #### C VDTBH #### [facility] [address] [place] [address] Dr. Raul Pereira Globulin (S) [Mass/Vol] 3.1 g/dL Normal [facility] Comment on above: Performed By: #### C VDTBH #### [facility] [address] [place] [address] Dr. Raul Pereira Glucose [Mass/Vol] 84 mg/dL Normal 74-106 [facility] Comment on above: Performed By: #### C VDTBH #### [facility] [address] [place] [address] Dr. Raul Pereira Potassium [Moles/Vol] 4.4 mmol/L Normal 3.5-5.1 [facility] Comment on above: Performed By: #### C VDTBH #### [facility] [address] [place] [address] Dr. Raul Pereira Protein [Mass/Vol] 6.9 g/dL Normal 6.4-8.2 [facility] Comment on above: Performed By: #### C VDTBH #### [facility] [address] [place] [address] Dr. Raul Pereira Sodium [Moles/Vol] 138 mmol/L Normal 136-145 [facility] Comment on above: Performed By: #### C VDTBH #### [facility] [address] [place] [address] Dr. Raul Pereira Urea nitrogen [Mass/Vol] 11.0 mg/dL Normal 7.0-18.0 [facility] Comment on above: Performed By: #### C VDTBH #### [facility] [address] [place] [address] Dr. Raul Pereira Urea nitrogen/Creatinine [Mass ratio] 18.6 mg/mg Normal [facility] Comment on above: Performed By: #### C VDTBH #### [facility] [address] [place] [address] Dr. Raul Pereira TSHon 01-31-2023 TSH 2.354 uIU/mL Normal 0.358-3.740 [facility] Comment on above: Performed By: #### C VDTBH #### [facility] [address] [place] [address] Dr. Raul Pereira UA RANDOM W/MICROSCOPICon BACTERIA NONE SEEN Normal NONE SEEN [facility] Comment on above: Performed By: #### C BC #### [facility] [address] [place] [address] Dr. Raul Pereira Bilirubin Ql (U) Negative Normal NEGATIVE [facility] Comment on above: Performed By: #### C BC #### [facility] [address] [place] [address] Dr. Raul Pereira CAST NONE SEEN Normal NONE SEEN [facility] Comment on above: Performed By: #### C BC #### [facility] [address] [place] [address] Dr. Raul Pereira Clarity (U) CLEAR Normal CLEAR [facility] Comment on above: Performed By: #### C BC #### [facility] [address] [place] [address] Dr. Raul Pereira Color (U) YELLOW Normal YELLOW [facility] Comment on above: Performed By: #### C BC #### [facility] [address] [place] [address] Dr. Raul Pereira Crystals LM Nom (Urine sed) NONE SEEN Normal NONE SEEN [facility] Comment on above: Performed By: #### C BC #### [facility] [address] [place] [address] Dr. Raul Pereira Epithelial cells LM Ql (Urine sed) NONE SEEN Normal NONE SEEN /RARE [facility] Comment on above: Performed By: #### C BC #### [facility] [address] [place] [address] Dr. Raul Pereira Glucose Ql (U) Negative Normal NEGATIVE [facility] Comment on above: Performed By: #### C BC #### [facility] [address] [place] [address] Dr. Raul Pereira Hemoglobin Ql (U) Negative Normal NEGATIVE [facility] Comment on above: Performed By: #### C BC #### [facility] [address] [place] [address] Dr. Raul Pereira Ketones Ql (U) Negative Normal NEGATIVE [facility] Comment on above: Performed By: #### C BC #### [facility] [address] [place] [address] Dr. Raul Pereira LEUKOCYTES Negative Normal NEGATIVE [facility] Comment on above: Performed By: #### C BC #### [facility] [address] [place] [address] Dr. Raul Pereira MUCOUS NONE SEEN Normal NONE SEEN [facility] Comment on above: Performed By: #### C BC #### [facility] [address] [place] [address] Dr. Raul Pereira Nitrite Ql (U) Negative Normal NEGATIVE [facility] Comment on above: Performed By: #### C BC #### [facility] [address] [place] [address] Dr. Raul Pereira pH (U) 5.5 [pH] Normal 5-9 [facility] Comment on above: Performed By: #### C BC #### [facility] [address] [place] [address] Dr. Raul Pereira RBC NONE SEEN Abnormal 0-2 [facility] Comment on above: Performed By: #### C BC #### [facility] [address] [place] [address] Dr. Raul Pereira SPEC GRAVITY 1.030 Abnormal 1.005-<=1.02 5 [facility] Comment on above: Performed By: #### C BC #### [facility] [address] [place] [address] Dr. Raul Pereira UA PROTEIN Negative Normal NEGATIVE/ TRACE [facility] Comment on above: Performed By: #### C BC #### [facility] [address] [place] [address] Dr. Raul Pereira Urobilinogen Qn (U) 0.2 {Farrukh'U}/dL Normal 0.2 - 1. 0 [facility] Comment on above: Performed By: #### C BC #### [facility] [address] [place] [address] Dr. Raul Pereira WBC NONE SEEN Normal NONE SEEN [facility] Comment on above: Performed By: #### C BC #### [facility] [address] [place] [address] Dr. Raul Pereira VITAMIN D 25 OHon 01-31-2023 VIT D 25-OH 40.8 ng/mL Normal [facility] Comment on above: Performed By: #### C VDTBH #### [facility] [address] [place] [address] Dr. Raul Pereira VIT D RANGES SEE BELOW Normal [facility] Comment on above: Result Comment: <20 ng/mL Vit D deficient 20 - <30 ng/mL Vit D insufficient 30 - 100 ng/mL Vit D sufficient >100 ng/mL Potential Toxicity Performed By: #### C VDTBH #### [facility] [address] [address] [address] Raul Pereira VC VENOUS REFLUX ALEXUS LMTon 0 01-30-2023 VC VENOUS REFLUX ALEXUS LMT Patient: RHETT MEJIA Exam Date: 01/30/2023 : 1960 Gender:F Ordering : DR NAPOLEON RAHMAN . Admission #: [id number] Family : Order #: [id number] CLICK HERE TO VIEW EXAM RADIOLOGY REPORT [...] thrombus. Compressibility: Normal. Flow: Deep venous reflux. Spiral Gear Generator:Mid/medial lower leg 4.3 mm with 0.8s reflux. [...] great saphenous vein along with dilated, incompetent trimming press operator veins and numerous branch saphenous varicosities. 2. 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 Proximal closer with endovenous laser ablation may be beneficial followed by treatment with microfoam chemical ablation. Incompetent lower leg trimming press operator vein which may contribute to patient's reflux; laser ablation is recommended. Dilated, incompetent branch saphenous varicosities which would benefit from microfoam chemical ablation. 3. Consultation for endovenous ablation is recommended. Dictated by: Jessica Lipscomb M.D. on 01/31/2023 at 09:46 Approved by: Jessica Lipscomb M.D. on 01/31/2023 at 09:51 Normal [facility] CBC AUTO DIFFon 01-13-2023 BASO # 0.0 103/ul Normal 0.0-0.1 [facility] Comment on above: Performed By: #### C BC #### [facility] [address] [address] [address] Raul Pereira Basophils/100 WBC (Bld) 0.5 % Normal 0.2-2.0 [facility] Comment on above: Performed By: #### C BC #### [facility] [address] [address] [address] Raul Pereira EO # 0.1 103/ul Normal 0.0-0.7 [facility] Comment on above: Performed By: #### C BC #### [facility] [address] [address] [address] Raul Pereira Eosinophils/100 WBC (Bld) 1.7 % Normal 0.9-7.0 [facility] Comment on above: Performed By: #### C BC #### [facility] [address] [place] [address] Dr. Raul Pereira Erythrocyte distribution width (RBC) [Ratio] 18.4 % Critically high 11.0-15.0 [facility] Comment on above: Performed By: #### C BC #### [facility] [address] [place] [address] Dr. Raul Pereira Hematocrit (Bld) [Volume fraction] 33.1 % Critically low 36.0-48.0 [facility] Comment on above: Performed By: #### C BC #### [facility] [address] [place] [address] Dr. Raul Pereira Hemoglobin (Bld) [Mass/Vol] 10.4 g/dL Critically low 12.0-16.0 [facility] Comment on above: Performed By: #### C BC #### [facility] [address] [place] [address] Dr. Raul Pereira IG # 0.03 10e3/ul Normal 0.00-0.03 [facility] Comment on above: Performed By: #### C BC #### [facility] [address] [place] [address] Dr. Raul Pereira IG % 0.4 % Normal 0.0-0.5 [facility] Comment on above: Performed By: #### C BC #### [facility] [address] [address] [address] Raul Pereira LYMPH # 1.9 103/ul Normal 1.2-3.8 [facility] Comment on above: Performed By: #### C BC #### [facility] [address] [place] [address] Dr. Raul Pereira Lymphocytes/100 WBC (Bld) 25.2 % Normal 20.5-60.0 [facility] Comment on above: Performed By: #### C BC #### [facility] [address] [place] [address] Dr. Raul Pereira MANUAL DIFF REQ NO Normal [facility] Comment on above: Performed By: #### C BC #### [facility] [address] [place] [address] Dr. Raul Pereira MCH (RBC) [Entitic mass] 24.1 pg Critically low 26.7-34.0 [facility] Comment on above: Performed By: #### C BC #### [facility] [address] [place] [address] Dr. Raul Pereira MCHC (RBC) [Mass/Vol] 31.4 g/dL Normal 29.9-35.2 [facility] Comment on above: Performed By: #### C BC #### [facility] [address] [place] [address] Dr. Raul Pereira MCV (RBC) [Entitic vol] 76.6 fL Critically low 81.0-99.0 [facility] Comment on above: Performed By: #### C BC #### [facility] [address] [place] [address] Dr. Raul Pereira MONO # 0.8 103/ul Normal 0.3-0.8 [facility] Comment on above: Performed By: #### C BC #### [facility] [address] [place] [address] Dr. Raul Pereira Monocytes/100 WBC (Bld) 10.7 % Normal 1.7-12.0 [facility] Comment on above: Performed By: #### C BC #### [facility] [address] [place], [place] [id number] Dr. Raul Pereira NEUT # 4.7 103/ul Normal 1.4-6.5 [facility] Comment on above: Performed By: #### C BC #### [facility] [address] [address] [address] Raul Pereira Neutrophils/100 WBC (Bld) 61.5 % Normal 43.0-75.0 [facility] Comment on above: Performed By: #### C BC #### [facility] [address] [address] [address] Raul Pereira Platelet mean volume (Bld) [Entitic vol] 8.6 fL Critically low 9.5-13.5 [facility] Comment on above: Performed By: #### C BC #### [facility] [address] [address] [address] Raul Pereira PLT 461 103/ul Critically high 150-450 [facility] Comment on above: Performed By: #### C BC #### [facility] [address] [address] [address] Raul Pereira RBC 4.32 106/ul Normal 4.20-5.40 [facility] Comment on above: Performed By: #### C BC #### [facility] [address] [address] [address] Raul Pereira WBC 7.6 103/ul Normal 4.0-11.0 [facility] Comment on above: Performed By: #### C BC #### [facility] [address] [address] [address] Raul Pereira FREE THYROXINE INDEX T7on FTI 2.10 Normal 1.30-4.50 [facility] Comment on above: Performed By: #### T 7, CMP, TSH, LIPID ####[facility] [address] [address]Dr. Raul Pereira T3U 35.0 % Normal 30.0-39.0 [facility] Comment on above: Performed By: #### T 7, CMP, TSH, LIPID ####[facility] [address] [address]DrLeann Pereira T4 [Mass/Vol] 6.00 ug/dL Normal 4.80-13.90 [facility] Comment on above: Performed By: #### T 7, CMP, TSH, LIPID ####[facility] [address] [address]Dr. Raul Pereira GLYCOHEMOGLOBIN A1Con 2022 ADA RECOMMENDATION SEE BELOW Normal [facility] Comment on above: Result Comment: ADA RECOMMENDED LIMIT 4.0 - 6.0 ADA THERAPEUTIC TARGET < 7.0 ACTION SUGGESTED > 7.0 Performed By: #### C VDTBH #### [facility] [address] [address] [address] Raul Pereira Glucose [Mass/Vol] 108 mg/dL Normal [facility] Comment on above: Performed By: #### C VDTBH #### [facility] [address] [address] [address] Raul Pereria HbA1c (Bld) [Mass fraction] 5.4 % Normal 4.5-6.2 [facility] Comment on above: Performed By: #### C VDTBH #### [facility] [address] [address] [address] Raul Pereira IRON AND TIBCon 01-13-2023 % SATURATION 3.5 % Normal [facility] Comment on above: Performed By: #### F ETIBC, B12FOL, VITAD ####[facility] [address] [address]DrLeann Pereira Iron [Mass/Vol] 18.0 ug/dL Critically low 50.0-170.0 [facility] Comment on above: Performed By: #### F ETIBC, B12FOL, VITAD ####[facility] [address] [address]DrLeann Pereira TIBC DIRECT 513.0 ug/dL Critically high 250.0-450.0 [facility] Comment on above: Performed By: #### F ETIBC, B12FOL, VITAD ####[facility] [address] [address]Dr. Aranzapetr Randall LIPID PROFILEon 01-13-2023 CHOL-HDL RATIO NORM SEE BELOW Normal [facility] Comment on above: Result Comment: 3.3 - 4.4 LOW RISK 4.4 - 7.1 AVERAGE RISK 7.1 - 11.0 MODERATE RISK >11.0 HIGH RISK Performed By: #### T 7, CMP, TSH, LIPID ####[facility] [address] [id number]. Aranzapetr Pereira Cholesterol [Mass/Vol] 190 mg/dL Normal <=200 [facility] Comment on above: Performed By: #### T 7, CMP, TSH, LIPID ####[facility] [address] [id number]. Raul Pereira Cholesterol in HDL [Mass/Vol] 71 mg/dL Critically high 40-60 [facility] Comment on above: Performed By: #### T 7, CMP, TSH, LIPID ####[facility] [address] [id number]. Raul Pereira Cholesterol in LDL [Mass/Vol] 104.6 mg/dL Normal [facility] Comment on above: Performed By: #### T 7, CMP, TSH, LIPID ####[facility] [address] [id number]. Raul Pereira Cholesterol.total/C holesterol in HDL [Mass ratio] 2.7 {ratio} Normal [facility] Comment on above: Performed By: #### T 7, CMP, TSH, LIPID ####[facility] [address] [id number]. Aranzapetr Randall HDL NORMAL > or = 60 mg/dl - LO W CARDIOVASCULAR RISK <40 mg/dl - HIGH CARDIOVASCULAR RISK Normal [facility] Comment on above: Performed By: #### T 7, CMP, TSH, LIPID ####[facility] [address] [id number]. Aranzapetr Pereira LDL CALC NORMAL SEE BELOW Normal [facility] Comment on above: Result Comment: <100 mg/dl OPTIMAL 100 - 129 mg/dl NEAR OR ABOVE OPTIMAL 130 - 159 mg/dl BORDERLINE HIGH 160 - 189 mg/dl HIGH >190 mg/dl VERY HIGH Performed By: #### T 7, CMP, TSH, LIPID ####[facility] [address] [address]Dr. Raul Pereira Triglyceride [Mass/Vol] 72 mg/dL Normal <=150 [facility] Comment on above: Performed By: #### T 7, CMP, TSH, LIPID ####[facility] [address] [address]Dr. Raul Pereira VLDL CALC 14.4 mg/dL Normal [facility] Comment on above: Performed By: #### T 7, CMP, TSH, LIPID ####[facility] [address] [address]Dr. Raul Pereira PROF 14(COMP METB)on 023 Albumin [Mass/Vol] 3.5 g/dL Normal 3.4-5.0 [facility] Comment on above: Performed By: #### T 7, CMP, TSH, LIPID ####[facility] [address] [address]Dr. Raul Pereira Albumin/Globulin [Mass ratio] 1.1 {ratio} Normal [facility] Comment on above: Performed By: #### T 7, CMP, TSH, LIPID ####[facility] [address] [address]Dr. Raul Pereira ALP [Catalytic activity/Vol] 92 U/L Normal 46-116 [facility] Comment on above: Performed By: #### T 7, CMP, TSH, LIPID ####[facility] [address] [address]Dr. Raul Pereira ALT [Catalytic activity/Vol] 17 U/L Normal 14-59 [facility] Comment on above: Performed By: #### T 7, CMP, TSH, LIPID ####[facility] [address] [address]Dr. Raul Pereira Anion gap [Moles/Vol] 10.0 mmol/L Normal [facility] Comment on above: Performed By: #### T 7, CMP, TSH, LIPID ####[facility] [address] [address]Dr. Raul Pereira AST [Catalytic activity/Vol] 17 U/L Normal 15-37 [facility] Comment on above: Performed By: #### T 7, CMP, TSH, LIPID ####[facility] [address] [address]Dr. Raul Pereira Bilirubin [Mass/Vol] 0.2 mg/dL Normal 0.2-1.0 [facility] Comment on above: Performed By: #### T 7, CMP, TSH, LIPID ####[facility] [address] [address]Dr. Raul Pereira Calcium [Mass/Vol] 8.8 mg/dL Normal 8.5-10.1 [facility] Comment on above: Performed By: #### T 7, CMP, TSH, LIPID ####[facility] [address] [address]Dr. Raul Pereira Chloride [Moles/Vol] 101 mmol/L Normal 98-107 [facility] Comment on above: Performed By: #### T 7, CMP, TSH, LIPID ####[facility] [address] [address]Dr. Raul Pereira CO2 [Moles/Vol] 29.4 mmol/L Normal 21.0-32.0 [facility] Comment on above: Performed By: #### T 7, CMP, TSH, LIPID ####[facility] [address] [address]Dr. Raul Pereira Creatinine [Mass/Vol] 0.50 mg/dL Critically low 0.55-1.02 [facility] Comment on above: Performed By: #### T 7, CMP, TSH, LIPID ####[facility] [address] [address]Dr. Raul Pereira EGFR-AF SIERRA LEONEAN >60 Normal >=60 [facility] Comment on above: Performed By: #### T 7, CMP, TSH, LIPID ####[facility] [address] [address]Dr. Raul Pereira EGFR-NON AF SIERRA LEONEAN >60 Normal >=60 [facility] Comment on above: Performed By: #### T 7, CMP, TSH, LIPID ####[facility] [address] [address]Dr. Raul Pereira Globulin (S) [Mass/Vol] 3.2 g/dL Normal [facility] Comment on above: Performed By: #### T 7, CMP, TSH, LIPID ####[facility] [address] [address]Dr. Raul Pereira Glucose [Mass/Vol] 88 mg/dL Normal 74-106 [facility] Comment on above: Performed By: #### T 7, CMP, TSH, LIPID ####[facility] [address] [place], [place] [address]Dr. Raul Pereira Potassium [Moles/Vol] 4.4 mmol/L Normal 3.5-5.1 [facility] Comment on above: Performed By: #### T 7, CMP, TSH, LIPID ####[facility] [address] [place], [place] [address]Dr. Raul Pereira Protein [Mass/Vol] 6.7 g/dL Normal 6.4-8.2 [facility] Comment on above: Performed By: #### T 7, CMP, TSH, LIPID ####[facility] [address] [place], [place] [address]Dr. Raul Pereira Sodium [Moles/Vol] 136 mmol/L Normal 136-145 [facility] Comment on above: Performed By: #### T 7, CMP, TSH, LIPID ####[facility] [address] [place], [place] [address]Dr. rAanzalan Pereira Urea nitrogen [Mass/Vol] 12.0 mg/dL Normal 7.0-18.0 [facility] Comment on above: Performed By: #### T 7, CMP, TSH, LIPID ####[facility] [address] [address]Dr. Raul Pereira Urea nitrogen/Creatinine [Mass ratio] 24.0 mg/mg Normal [facility] Comment on above: Performed By: #### T 7, CMP, TSH, LIPID ####[facility] [address] [id number]. Raul Pereira TSHon 01-13-2023 TSH 1.623 uIU/mL Normal 0.358-3.740 [facility] Comment on above: Performed By: #### T 7, CMP, TSH, LIPID ####[facility] [address] [id number]. Raul Pereira VIT B12 AND FOLATEon 023 Cobalamin (Vitamin B12) [Mass/Vol] 872.0 pg/mL Normal 193.0-986.0 [facility] Comment on above: Performed By: #### F ETIBC, B12FOL, VITAD ####[facility] [address] [address]Dr. Raul Pereira FOLATE 21.20 ng/mL Normal 8.60-58.90 [facility] Comment on above: Performed By: #### F ETIBC, B12FOL, VITAD ####[facility] [address] [address]Dr. Ralu Pereira VITAMIN D 25 OHon 01-13-2023 VIT D 25-OH 40.6 ng/mL Normal [facility] Comment on above: Performed By: #### F ETIBC, B12FOL, VITAD ####[facility] [address] [address]Dr. Raul Pereira VIT D RANGES SEE BELOW Normal [facility] Comment on above: Result Comment: <20 ng/mL Vit D deficient 20 - <30 ng/mL Vit D insufficient 30 - 100 ng/mL Vit D sufficient >100 ng/mL Potential Toxicity Performed By: #### F ETIBC, B12FOL, VITAD ####[facility] [address] [address]DrLeann Pereira CBC AUTO DIFFon 01-10-2023 BASO # 0.1 103/ul Normal 0.0-0.1 [facility] Comment on above: Performed By: #### C VDTBH #### [facility] [address] [address] [address] Raul Pereira Basophils/100 WBC (Bld) 0.6 % Normal 0.2-2.0 [facility] Comment on above: Performed By: #### C VDTBH #### [facility] [address] [place] [address] Dr. Raul Pereira EO # 0.1 103/ul Normal 0.0-0.7 [facility] Comment on above: Performed By: #### C VDTBH #### [facility] [address] [place] [address] Dr. Raul Pereira Eosinophils/100 WBC (Bld) 1.3 % Normal 0.9-7.0 [facility] Comment on above: Performed By: #### C VDTBH #### [facility] [address] [place] [address] Dr. Raul Pereira Erythrocyte distribution width (RBC) [Ratio] 18.4 % Critically high 11.0-15.0 [facility] Comment on above: Performed By: #### C VDTBH #### [facility] [address] [place] [address] Dr. Raul Pereira Hematocrit (Bld) [Volume fraction] 37.8 % Normal 36.0-48.0 [facility] Comment on above: Performed By: #### C VDTBH #### [facility] [address] [place] [address] Dr. Raul Pereira Hemoglobin (Bld) [Mass/Vol] 11.6 g/dL Critically low 12.0-16.0 [facility] Comment on above: Performed By: #### C VDTBH #### [facility] [address] [place] [address] Dr. Raul Pereira IG # 0.02 10e3/ul Normal 0.00-0.03 [facility] Comment on above: Performed By: #### C VDTBH #### [facility] [address] [place] [address] Dr. Raul Pereira IG % 0.3 % Normal 0.0-0.5 [facility] Comment on above: Performed By: #### C VDTBH #### [facility] [address] [address] [address] Raul Pereira LYMPH # 1.7 103/ul Normal 1.2-3.8 [facility] Comment on above: Performed By: #### C VDTBH #### [facility] [address] [place] [address] Dr. Raul Pereira Lymphocytes/100 WBC (Bld) 21.0 % Normal 20.5-60.0 [facility] Comment on above: Performed By: #### C VDTBH #### [facility] [address] [place] [address] Dr. Raul Pereira MANUAL DIFF REQ NO Normal [facility] Comment on above: Performed By: #### C VDTBH #### [facility] [address] [place] [address] Dr. Raul Pereira MCH (RBC) [Entitic mass] 24.1 pg Critically low 26.7-34.0 [facility] Comment on above: Performed By: #### C VDTBH #### [facility] [address] [place] [address] Dr. Raul Pereira MCHC (RBC) [Mass/Vol] 30.7 g/dL Normal 29.9-35.2 [facility] Comment on above: Performed By: #### C VDTBH #### [facility] [address] [place] [address] Dr. Raul Pereira MCV (RBC) [Entitic vol] 78.6 fL Critically low 81.0-99.0 [facility] Comment on above: Performed By: #### C VDTBH #### [facility] [address] [place] [address] Dr. Raul Pereira MONO # 0.6 103/ul Normal 0.3-0.8 [facility] Comment on above: Performed By: #### C VDTBH #### [facility] [address] [place] [address] Dr. Raul Pereira Monocytes/100 WBC (Bld) 7.5 % Normal 1.7-12.0 [facility] Comment on above: Performed By: #### C VDTBH #### [facility] [address] [place] [address] Dr. Raul Pereira NEUT # 5.4 103/ul Normal 1.4-6.5 [facility] Comment on above: Performed By: #### C VDTBH #### [facility] [address] [place] [address] Dr. Raul Pereira Neutrophils/100 WBC (Bld) 69.3 % Normal 43.0-75.0 [facility] Comment on above: Performed By: #### C VDTBH #### [facility] [address] [place] [address] Dr. Raul Pereira Platelet mean volume (Bld) [Entitic vol] 9.0 fL Critically low 9.5-13.5 [facility] Comment on above: Performed By: #### C VDTBH #### [facility] [address] [place] [address] Dr. Raul Pereira PLT 516 103/ul Critically high 150-450 [facility] Comment on above: Performed By: #### C VDTBH #### [facility] [address] [place] [address] Dr. Raul Pereira RBC 4.81 106/ul Normal 4.20-5.40 [facility] Comment on above: Performed By: #### C VDTBH #### [facility] [address] [place] [address] Dr. Raul Pereira WBC 7.8 103/ul Normal 4.0-11.0 [facility] Comment on above: Performed By: #### C VDTBH #### [facility] [address] [place] [address] Dr. Raul Pereira CULTURE BLOODon 01-10-2023 Microscopic examination of blood, culture Culture Observations: NO GROWTH AT 5 DAYS. Normal [facility] Comment on above: Performed By: #### B [id number] #### [facility] [address] [place] [address] Dr. Raul Pereira Microscopic examination of blood, culture Culture Observations: NO GROWTH AT 5 DAYS. Normal [facility] Comment on above: Performed By: #### B [id number] ####[facility] [id number] [address]Dr. Raul Pereira PROF 14(COMP METB)on 023 Albumin [Mass/Vol] 3.7 g/dL Normal 3.4-5.0 [facility] Comment on above: Performed By: #### C BC #### [facility] [address] [address] [address] Raul Pereira Albumin/Globulin [Mass ratio] 0.9 {ratio} Normal [facility] Comment on above: Performed By: #### C BC #### [facility] [address] [place] [address] Dr. Raul Pereira ALP [Catalytic activity/Vol] 105 U/L Normal 46-116 [facility] Comment on above: Performed By: #### C BC #### [facility] [address] [place] [address] Dr. Raul Pereira ALT [Catalytic activity/Vol] 18 U/L Normal 14-59 [facility] Comment on above: Performed By: #### C BC #### [facility] [address] [place] [address] Dr. Raul Pereira Anion gap [Moles/Vol] 10.8 mmol/L Normal [facility] Comment on above: Performed By: #### C BC #### [facility] [address] [place] [address] Dr. Raul Pereira AST [Catalytic activity/Vol] 21 U/L Normal 15-37 [facility] Comment on above: Performed By: #### C BC #### [facility] [address] [place] [address] Dr. Raul Pereira Bilirubin [Mass/Vol] 0.3 mg/dL Normal 0.2-1.0 [facility] Comment on above: Performed By: #### C BC #### [facility] [address] [place] [address] Dr. Raul Pereira Calcium [Mass/Vol] 9.1 mg/dL Normal 8.5-10.1 [facility] Comment on above: Performed By: #### C BC #### [facility] [address] [place] [address] Dr. Raul Pereira Chloride [Moles/Vol] 100 mmol/L Normal 98-107 [facility] Comment on above: Performed By: #### C BC #### [facility] [address] [place] [address] Dr. Raul Pereira CO2 [Moles/Vol] 30.8 mmol/L Normal 21.0-32.0 [facility] Comment on above: Performed By: #### C BC #### [facility] [address] [place] [address] Dr. Raul Pereira Creatinine [Mass/Vol] 0.58 mg/dL Normal 0.55-1.02 [facility] Comment on above: Performed By: #### C BC #### [facility] [address] [place] [address] Dr. Raul Pereira EGFR-AF SIERRA LEONEAN >60 Normal >=60 [facility] Comment on above: Performed By: #### C BC #### [facility] [address] [place] [address] Dr. Raul Pereira EGFR-NON AF SIERRA LEONEAN >60 Normal >=60 [facility] Comment on above: Performed By: #### C BC #### [facility] [address] [place] [address] Dr. Raul Pereira Globulin (S) [Mass/Vol] 4.1 g/dL Normal [facility] Comment on above: Performed By: #### C BC #### [facility] [address] [place] [address] Dr. Raul Pereira Glucose [Mass/Vol] 86 mg/dL Normal 74-106 [facility] Comment on above: Performed By: #### C BC #### [facility] [address] [place] [address] Dr. Raul Pereira Potassium [Moles/Vol] 4.6 mmol/L Normal 3.5-5.1 [facility] Comment on above: Performed By: #### C BC #### [facility] [address] [place] [address] Dr. Raul Pereira Protein [Mass/Vol] 7.8 g/dL Normal 6.4-8.2 [facility] Comment on above: Performed By: #### C BC #### [facility] [address] [place] [address] Dr. Raul Pereira Sodium [Moles/Vol] 137 mmol/L Normal 136-145 [facility] Comment on above: Performed By: #### C BC #### [facility] [address] [address] [address] Raul Pereira Urea nitrogen [Mass/Vol] 9.0 mg/dL Normal 7.0-18.0 [facility] Comment on above: Performed By: #### C BC #### [facility] [address] [place] [address] Dr. Raul Pereira Urea nitrogen/Creatinine [Mass ratio] 15.5 mg/mg Normal [facility] Comment on above: Performed By: #### C BC #### [facility] [address] [place] [address] Dr. Raul Pereira US PREMA DOP LEG RTon 01-10-20 23 US PREMA DOP LEG RT EXAMINATION: PREMA [...] JESSICA LIPSCOMB Date: 2023-01-10 10:43 Normal [facility] Covid-19 PCR ([facility])on 11-18 SARS-CoV-2 (COVID-19) RNA IMELDA+probe Ql (Unsp spec) Not detected Normal NOT DETECTED [facility] Comment on above: Result Comment: This test is not yet approved or cleared by the [place] FDA. When there are no FDA-approved or cleared tests available, and other criteria are met, FDA can make tests available under an emergency access mechanism called an Emergency Use Authorization (EUA). The EUA for this test is supported by the Computer Equipment Repairer of Health and Human Service's (HHS's) declaration [...] SARS-CoV-2. Performed By: #### C VDTB #### [facility] [address] [place] [address] Dr. Raul Pereira CALCIUMon 12-03-2022 Calcium [Mass/Vol] 9.7 mg/dL Normal 8.5-10.1 [facility] Comment on above: Performed By: #### C VDTBH #### [facility] [address] [place] [address] Dr. Raul Pereira CREATININEon 12-03-2022 Creatinine [Mass/Vol] 0.53 mg/dL Critically low 0.55-1.02 [facility] Comment on above: Performed By: #### C BC #### [facility] [address] [place] [address] Dr. Raul Pereira EGFR-AF SIERRA LEONEAN >60 Normal >=60 [facility] Comment on above: Performed By: #### C BC #### [facility] [address] [place] [address] Dr. Raul Pereira EGFR-NON AF SIERRA LEONEAN >60 Normal >=60 [facility] Comment on above: Performed By: #### C BC #### [facility] [address] [place] [address] Dr. Raul Pereira Office Visiton 08-27-2022 Follow-up visit [id number] Lex Mejia karri L 1960 F Date Provider Department Center 08/27/2022 Nella-MICAELA GUPTA [facility] SURG Second Fl No family history on file Level of Service:82163 [place] POSTOP FOLLOW UP VISIT RELATED TO ORIGINAL PX Reason for Visit and Comments: Post-op [483] - Rhett is here today for a post op visit, s/p 08/16/22 LAP ZEESHAN Normal [facility] HISTOLOGY - TISSUE EXAMon LAB AP CASE REPORT Normal Brittany reyes [facility] Comment on above: Order Comment: Pre-o p diagnosis:Calculus of gallbladder without cholecystitis without obstruction [K80.20] Result Comment: Surg ical Pathology Case: [id number] Authorizing Provider: Micaela Gupta MD Collected: 08/16/2022 0842 Ordering Location: [facility] Main Operating Room Received: 08/16/2022 1001 Pathologist: Maricruz Warren MD Specimen: Gallbladder, GALLBLADDER Performed By: #### L [id number] ####[facility] [facility] [place] [address] LAB AP CLINICAL INFORMATION Normal [facility] Comment on above: Order Comment: Pre-o p diagnosis:Calculus of gallbladder without cholecystitis without obstruction [K80.20] Result Comment: Pre- op diagnosis: Calculus of gallbladder without cholecystitis without obstruction [K80.20] Performed By: #### L [id number] ####[facility] [facility] [place] [address] LAB AP GROSS DESCRIPTION A. Gallbladder. Normal [facility] Comment on above: Order Comment: Pre-o p diagnosis:Calculus of gallbladder without cholecystitis without obstruction [K80.20] Result Comment: Rece ived in formalin , labeled Rhett Lovett Hilary, GALLBLADDER . The specimen consists of [...] 0.1 to 0.2 cm in maximum thickness. Hardboard Supervisor sections submitted as follows: Cassette 1: Cystic duct resection margin and neck Cassette 2: Body and fundus Ankit Koroma, Pathologists' Guide Plant Performed By: #### L [id number] ####[facility] [facility] [place] [address] LAB AP MICROSCOPIC DESCRIPTION Microscopic examination performed [facility] Comment on above: Order Comment: Pre-o p diagnosis:Calculus of gallbladder without cholecystitis without obstruction [K80.20] Performed By: #### L [id number] ####[facility] [facility] [place] [address] LAB AP REPORT FINAL DIAGNOSIS NARRATIVE Normal [facility] Comment on above: Order Comment: Pre-o p diagnosis:Calculus of gallbladder without cholecystitis without obstruction [K80.20] Result Comment: Gall bladder, cholecystectomy: - Cholelithiasis and cholesterolosis. Performed By: #### L [id number] ####[facility] [facility] [place] [address] HPon 08-16-2022 ----- ----- Attestation signed by Micaela Gupta MD at 08/16/2022 7:34 AM Attending Physician Statement I have discussed the case, including pertinent history and exam findings with Dr. Del Angel, surgical elastic knitter and have personally seen the patient. I agree with the assessment, plan and orders as documented. [phone] pager [phone] phone ----- [facility] General Surgery HISTORY & PHYSICAL Chief [...] History: Diagnosis Date Anxiety Arthritis Chronic bronchitis ([facility]/HCC) Depression DVT (deep venous thrombosis) ([facility]) Gall bladder disease GERD (gastroesophageal reflux disease) [...] Component Value (more content not included)... Normal [facility] NURSNOTEon 08-16-2022 NURSNOTE Stable. Pain minimal . DC criteria met. IV dc'd and patient getting dressed. 1155 Stable for discharge. Normal [facility] NURSNOTE DC instructions revi ewed with patient and Granddaughter, allowed time for questions, copy given. Normal [facility] NURSNOTE Report rec'd and car e assumed. No assessment changes. Pain minimal. Normal [facility] NURSNOTE 0920 Recovery called. Normal [facility] OPNOTEon 08-16-2022 OPNOTE CHOLECYSTECTOMY, LAPAROSCOPIC Operative Note Date: 08/16/2022 Location: [facility] OR Name: Rhett Mejia, : 1960, Diagnosis Pre-op Diagnosis * Calculus of gallbladder without cholecystitis without obstruction [K80.20] * History of gastric bypass [Z98.84] Post-op Diagnosis * Calculus of gallbladder without cholecystitis without obstruction [K80.20] * History of gastric bypass [Z98.84] Procedures CHOLECYSTECTOMY, LAPAROSCOPIC 06713 - [place] LAPS SURG CHOLECYSTECTOMY W/CHOLANGIOGRAPHY Surgeons * Micaela Gupta - Primary * Robyn Del Angel Procedure Summary Anesthesia: General ASA: III Estimated Blood Loss: 10 mL Total IV Fluids: 1000 mL Drains: * None in log * Specimens ID Source Type Tests Collected By Collected At Frozen? Priority Lab ID A Gallbladder Tissue HISTOLOGY - TISSUE EXAM Micaela Gupta MD 08/16/22 0842 No [id number] Description: GALLBLADDER Staff: Conditioning Coach: Zeny De La Cruz RN Scrub Person: [...] PACU - hemodynamically stable. Condition: stable Normal [facility] POCT GLUCOSE METER UNSOLICIT ED RESULTSon 08-16-2022 Glucose [Mass/Vol] 88 mg/dL Normal 70-105 Qamarer eric [facility] Comment on above: Result Comment: prasad low Performed By: #### L [id number] #### [facility] [address] [place] [address] POCT SARS-COV-2 PCRon 2021 POC SARS-COV-2 ANTIGEN Negative Normal Negative [facility] Comment on above: Result Comment: ID [...] Certificate of Accreditation. Performed By: #### L [id number] ####[facility] [place] [address] Orders Onlyon 08-14-2022 Orders Only [id number] Lex Mejia rrmonica L 1960 F Date Provider Department Center 08/14/2022 [id number], HISTORICAL [facility] PAT AR Medical C No family history on file Normal [facility] [id number] 08-13-2022 [id number] NPO after MN Must have a milk wagon driver to take you home and someone to stay for 24 hours after surgery. No jewelry. Hold the meds we spoke about: NSAIDS Take the meds we spoke about w/a sip of water DOS: GAPAPENTIN, NEXIUM, INHALER, CYMBALTA Bring insurance card and ID. LABS AND COVID TO BE DONE IN [place]. Normal [facility] CBC AUTO DIFFon 08-13-2022 BASO # 0.0 103/ul Normal 0.0-0.1 [facility] Comment on above: Performed By: #### C BC #### [facility] [address] [address] [address] Raul Pereira Basophils/100 WBC (Bld) 0.4 % Normal 0.2-2.0 [facility] Comment on above: Performed By: #### C BC #### [facility] [address] [address] [address] Raul Pereira EO # 0.1 103/ul Normal 0.0-0.7 [facility] Comment on above: Performed By: #### C BC #### [facility] [address] [place] [address] Dr. Raul Pereira Eosinophils/100 WBC (Bld) 1.2 % Normal 0.9-7.0 [facility] Comment on above: Performed By: #### C BC #### [facility] [address] [place] [address] Dr. Raul Pereira Erythrocyte distribution width (RBC) [Ratio] 18.6 % Critically high 11.0-15.0 [facility] Comment on above: Performed By: #### C BC #### [facility] [address] [place] [address] Dr. Raul Pereira Hematocrit (Bld) [Volume fraction] 39.1 % Normal 36.0-48.0 [facility] Comment on above: Performed By: #### C BC #### [facility] [address] [place] [address] Dr. Raul Pereira Hemoglobin (Bld) [Mass/Vol] 12.5 g/dL Normal 12.0-16.0 [facility] Comment on above: Performed By: #### C BC #### [facility] [address] [place] [address] Dr. Raul Pereira IG # 0.03 10e3/ul Normal 0.00-0.03 [facility] Comment on above: Performed By: #### C BC #### [facility] [address] [address] [address] Raul Pereira IG % 0.4 % Normal 0.0-0.5 [facility] Comment on above: Performed By: #### C BC #### [facility] [address] [place] [address] Dr. Raul Pereira LYMPH # 2.0 103/ul Normal 1.2-3.8 [facility] Comment on above: Performed By: #### C BC #### [facility] [address] [place] [address] Dr. Raul Pereira Lymphocytes/100 WBC (Bld) 27.2 % Normal 20.5-60.0 [facility] Comment on above: Performed By: #### C BC #### [facility] [address] [place] [address] Dr. Raul Pereira MANUAL DIFF REQ NO Normal [facility] Comment on above: Performed By: #### C BC #### [facility] [address] [place] [address] Dr. Raul Pereira MCH (RBC) [Entitic mass] 27.2 pg Normal 26.7-34.0 [facility] Comment on above: Performed By: #### C BC #### [facility] [address] [place] [address] Dr. Raul Pereira MCHC (RBC) [Mass/Vol] 32.0 g/dL Normal 29.9-35.2 [facility] Comment on above: Performed By: #### C BC #### [facility] [address] [place] [address] Dr. Raul Pereira MCV (RBC) [Entitic vol] 85.2 fL Normal 81.0-99.0 [facility] Comment on above: Performed By: #### C BC #### [facility] [address] [place] [address] Dr. Raul Pereira MONO # 0.7 103/ul Normal 0.3-0.8 [facility] Comment on above: Performed By: #### C BC #### [facility] [address] [place] [address] Dr. Raul Pereira Monocytes/100 WBC (Bld) 9.3 % Normal 1.7-12.0 [facility] Comment on above: Performed By: #### C BC #### [facility] [address] [place] [address] Dr. Raul Pereira NEUT # 4.4 103/ul Normal 1.4-6.5 [facility] Comment on above: Performed By: #### C BC #### [facility] [address] [place] [address] Dr. Raul Pereira Neutrophils/100 WBC (Bld) 61.5 % Normal 43.0-75.0 [facility] Comment on above: Performed By: #### C BC #### [facility] [address] [place] [address] Dr. Raul Pereira Platelet mean volume (Bld) [Entitic vol] 8.7 fL Critically low 9.5-13.5 [facility] Comment on above: Performed By: #### C BC #### [facility] [address] [place] [address] Dr. Raul Pereira PLT 387 103/ul Normal 150-450 [facility] Comment on above: Performed By: #### C BC #### [facility] [address] [place] [address] Dr. Raul Pereira RBC 4.59 106/ul Normal 4.20-5.40 [facility] Comment on above: Performed By: #### C BC #### [facility] [address] [place] [address] Dr. Raul Pereira WBC 7.2 103/ul Normal 4.0-11.0 [facility] Comment on above: Performed By: #### C BC #### [facility] [address] [place] [address] Dr. Raul Pereira Covid-19 PCR ([facility])on 07-19 SARS-CoV-2 (COVID-19) RNA IMELDA+probe Ql (Unsp spec) Not detected Normal NOT DETECTED [facility] Comment on above: Result Comment: This test is not yet approved or cleared by the [place] FDA. When there are no FDA-approved or cleared tests available, and other criteria are met, FDA can make tests available under an emergency access mechanism called an Emergency Use Authorization (EUA). The EUA for this test is supported by the [place] of Health and Human Service's (HHS's) declaration [...] SARS-CoV-2. Performed By: #### C VDTB #### [facility] [address] [place] [address] Dr. Raul Pereira PROF CHEM 8 (BAS METB)on Anion gap [Moles/Vol] 11.5 mmol/L Normal [facility] Comment on above: Performed By: #### C BC #### [facility] [address] [place] [address] Dr. Raul Pereira Calcium [Mass/Vol] 9.5 mg/dL Normal 8.5-10.1 [facility] Comment on above: Performed By: #### C BC #### [facility] [address] [place] [address] Dr. Raul Pereira Chloride [Moles/Vol] 101 mmol/L Normal 98-107 [facility] Comment on above: Performed By: #### C BC #### [facility] [address] [place] [address] Dr. Raul Pereira CO2 [Moles/Vol] 29.6 mmol/L Normal 21.0-32.0 [facility] Comment on above: Performed By: #### C BC #### [facility] [address] [place] [address] Dr. Raul Pereira Creatinine [Mass/Vol] 0.65 mg/dL Normal 0.55-1.02 [facility] Comment on above: Performed By: #### C BC #### [facility] [address] [address] [address] Raul Pereira EGFR-AF SIERRA LEONEAN >60 Normal >=60 [facility] Comment on above: Performed By: #### C BC #### [facility] [id number] Raul Pereira EGFR-NON AF SIERRA LEONEAN >60 Normal >=60 [facility] Comment on above: Performed By: #### C BC #### [facility] [address] [address] [address] Raul Pereira Glucose [Mass/Vol] 104 mg/dL Normal 74-106 [facility] Comment on above: Performed By: #### C BC #### [facility] [address] [place] [address] Dr. Raul Pereira Potassium [Moles/Vol] 4.1 mmol/L Normal 3.5-5.1 [facility] Comment on above: Performed By: #### C BC #### [facility] [address] [address] [address] Raul Pereira Sodium [Moles/Vol] 138 mmol/L Normal 136-145 [facility] Comment on above: Performed By: #### C BC #### [facility] [address] [place] [address] Dr. Raul Pereira Urea nitrogen [Mass/Vol] 11.0 mg/dL Normal 7.0-18.0 [facility] Comment on above: Performed By: #### C BC #### [facility] [address] [place] [address] Dr. Raul Pereira Urea nitrogen/Creatinine [Mass ratio] 16.9 mg/mg Normal [facility] Comment on above: Performed By: #### C BC #### [facility] [id number] Raul Pereira Office Visiton 08-06-2022 Follow-up visit [id number] Lex Mejia L 1960 F Date Provider Department Center 08/06/2022 Nella-MICAELA GUPTA [facility] SURG Second Fl No family history on file Level of Service:47905 [place] OFFICE/OUTPATIENT ESTABLISHED LOW MDM 20-29 MIN Reason for Visit and Comments: Consult [484] - Rhett is here for a gallbladder consult. Rhett also c/o swelling in right leg with pain in calf. Normal [facility] PROTIME-INRon 08-06-2022 INR IN PPP BY COAGULATION ASSAY 0.89 Low 0.90-1.10 [facility] Comment on above: Result Comment: ACCC [...] [id number] #### [facility] [address] [place] [address] PROTHROMBIN TIME (PT) IN PPP BY COAGULATION ASSAY 12.1 Seconds Low 12.3-14.8 [facility] Comment on above: Performed By: #### L [id number] #### [facility] [address] [place] [address] CT ABD/PELVIS WO CONon 07-24 CT ABD/PELVIS [...] by: JESSICA LIPSCOMB Date: 2022-07-24 17:21 Normal [facility] HEPATOBILIARY SCAN W EFon 07-18-2022 ME HEPATOBILIARY SCAN W EF EXAMINATION: NM HEPATOBILIARY [...] MEAGHAN SKINNER Date: 2022-07-18 10:22 Normal [facility] CBC AUTO DIFFon 07-13-2022 BASO # 0.0 103/ul Normal 0.0-0.1 [facility] Comment on above: Performed By: #### C BC #### [facility] [address] [address] [address] Raul Pereira Basophils/100 WBC (Bld) 0.5 % Normal 0.2-2.0 [facility] Comment on above: Performed By: #### C BC #### [facility] [address] [place] [address] Dr. Raul Pereira EO # 0.1 103/ul Normal 0.0-0.7 [facility] Comment on above: Performed By: #### C BC #### [facility] [address] [place] [address] Dr. Raul Pereira Eosinophils/100 WBC (Bld) 0.9 % Normal 0.9-7.0 [facility] Comment on above: Performed By: #### C BC #### [facility] [address] [place] [address] Dr. Raul Pereira Erythrocyte distribution width (RBC) [Ratio] 20.2 % Critically high 11.0-15.0 [facility] Comment on above: Performed By: #### C BC #### [facility] [address] [place] [address] Dr. Raul Pereira Hematocrit (Bld) [Volume fraction] 41.1 % Normal 36.0-48.0 [facility] Comment on above: Performed By: #### C BC #### [facility] [address] [place] [address] Dr. Raul Pereira Hemoglobin (Bld) [Mass/Vol] 13.2 g/dL Normal 12.0-16.0 [facility] Comment on above: Performed By: #### C BC #### [facility] [address] [address] [address] Raul Pereira IG # 0.05 10e3/ul Critically high 0.00-0.03 [facility] Comment on above: Performed By: #### C BC #### [facility] [address] [address] [address] Raul Pereira IG % 0.6 % Critically high 0.0-0.5 [facility] Comment on above: Performed By: #### C BC #### [facility] [address] [place] [address] Dr. Raul Pereira LYMPH # 1.4 103/ul Normal 1.2-3.8 [facility] Comment on above: Performed By: #### C BC #### [facility] [address] [place] [address] Dr. Raul Pereira Lymphocytes/100 WBC (Bld) 17.3 % Critically low 20.5-60.0 [facility] Comment on above: Performed By: #### C BC #### [facility] [address] [place] [address] Dr. Raul Pereira MANUAL DIFF REQ NO Normal [facility] Comment on above: Performed By: #### C BC #### [facility] [address] [place] [address] Dr. Raul Pereira MCH (RBC) [Entitic mass] 27.3 pg Normal 26.7-34.0 [facility] Comment on above: Performed By: #### C BC #### [facility] [address] [place] [address] Dr. Raul Pereira MCHC (RBC) [Mass/Vol] 32.1 g/dL Normal 29.9-35.2 [facility] Comment on above: Performed By: #### C BC #### [facility] [address] [place] [address] Dr. Raul Pereira MCV (RBC) [Entitic vol] 84.9 fL Normal 81.0-99.0 [facility] Comment on above: Performed By: #### C BC #### [facility] [address] [place] [address] Dr. Raul Pereira MONO # 0.8 103/ul Normal 0.3-0.8 [facility] Comment on above: Performed By: #### C BC #### [facility] [address] [place] [address] Dr. Raul Pereira Monocytes/100 WBC (Bld) 10.0 % Normal 1.7-12.0 [facility] Comment on above: Performed By: #### C BC #### [facility] [address] [place] [address] Dr. Raul Pereira NEUT # 5.8 103/ul Normal 1.4-6.5 [facility] Comment on above: Performed By: #### C BC #### [facility] [address] [place] [address] Dr. Raul Pereira Neutrophils/100 WBC (Bld) 70.7 % Normal 43.0-75.0 [facility] Comment on above: Performed By: #### C BC #### [facility] [address] [place] [address] Dr. Raul Pereira Platelet mean volume (Bld) [Entitic vol] 9.1 fL Critically low 9.5-13.5 [facility] Comment on above: Performed By: #### C BC #### [facility] [address] [place] [address] Dr. Raul Pereira PLT 358 103/ul Normal 150-450 [facility] Comment on above: Performed By: #### C BC #### [facility] [address] [place] [address] Dr. Raul Pereira RBC 4.84 106/ul Normal 4.20-5.40 [facility] Comment on above: Performed By: #### C BC #### [facility] [address] [place] [address] Dr. Raul Pereira WBC 8.1 103/ul Normal 4.0-11.0 [facility] Comment on above: Performed By: #### C BC #### [facility] [address] [place] [address] Dr. Raul Pereira LIPASEon 07-13-2022 Lipase [Catalytic activity/Vol] 47.0 U/L Critically low 73.0-393.0 [facility] Comment on above: Performed By: #### C BC #### [facility] [address] [place] [address] Dr. Raul Pereira PROF 14(COMP METB)on 022 Albumin [Mass/Vol] 3.6 g/dL Normal 3.4-5.0 [facility] Comment on above: Performed By: #### C BC #### [facility] [address] [place] [address] Dr. Raul Pereira Albumin/Globulin [Mass ratio] 1.0 {ratio} Normal [facility] Comment on above: Performed By: #### C BC #### [facility] [address] [place] [address] Dr. Raul Pereira ALP [Catalytic activity/Vol] 88 U/L Normal 46-116 [facility] Comment on above: Performed By: #### C BC #### [facility] [address] [place] [address] Dr. Raul Pereira ALT [Catalytic activity/Vol] 16 U/L Normal 14-59 [facility] Comment on above: Performed By: #### C BC #### [facility] [address] [place] [address] Dr. Raul Pereira Anion gap [Moles/Vol] 13.2 mmol/L Normal [facility] Comment on above: Performed By: #### C BC #### [facility] [address] [place] [address] Dr. Raul Pereira AST [Catalytic activity/Vol] 15 U/L Normal 15-37 [facility] Comment on above: Performed By: #### C BC #### [facility] [address] [place] [address] Dr. Raul Pereira Bilirubin [Mass/Vol] 0.2 mg/dL Normal 0.2-1.0 [facility] Comment on above: Performed By: #### C BC #### [facility] [address] [place] [address] Dr. Raul Pereira Calcium [Mass/Vol] 9.5 mg/dL Normal 8.5-10.1 [facility] Comment on above: Performed By: #### C BC #### [facility] [address] [place] [address] Dr. Raul Pereira Chloride [Moles/Vol] 100 mmol/L Normal 98-107 [facility] Comment on above: Performed By: #### C BC #### [facility] [address] [place] [address] Dr. Raul Pereira CO2 [Moles/Vol] 28.0 mmol/L Normal 21.0-32.0 [facility] Comment on above: Performed By: #### C BC #### [facility] [address] [place] [address] Dr. Raul Pereira Creatinine [Mass/Vol] 0.78 mg/dL Normal 0.55-1.02 [facility] Comment on above: Performed By: #### C BC #### [facility] [address] [place] [address] Dr. Raul Pereira EGFR-AF SIERRA LEONEAN >60 Normal >=60 [facility] Comment on above: Performed By: #### C BC #### [facility] [address] [place] [address] Dr. Raul Pereira EGFR-NON AF SIERRA LEONEAN >60 Normal >=60 [facility] Comment on above: Performed By: #### C BC #### [facility] [address] [place] [address] Dr. Raul Pereira Globulin (S) [Mass/Vol] 3.6 g/dL Normal [facility] Comment on above: Performed By: #### C BC #### [facility] [address] [place] [address] Dr. Raul Pereira Glucose [Mass/Vol] 86 mg/dL Normal 74-106 [facility] Comment on above: Performed By: #### C BC #### [facility] [address] [place] [address] Dr. Raul Pereira Potassium [Moles/Vol] 4.2 mmol/L Normal 3.5-5.1 [facility] Comment on above: Performed By: #### C BC #### [facility] [address], [place] [address] Dr. Raul Pereira Protein [Mass/Vol] 7.2 g/dL Normal 6.4-8.2 [facility] Comment on above: Performed By: #### C BC #### [facility] [address], [place] [address] Dr. Raul Pereira Sodium [Moles/Vol] 137 mmol/L Normal 136-145 [facility] Comment on above: Performed By: #### C BC #### [facility] [address], [place] [address] Dr. Raul Pereira Urea nitrogen [Mass/Vol] 11.0 mg/dL Normal 7.0-18.0 [facility] Comment on above: Performed By: #### C BC #### [facility] [address] [address] [address] Raul Pereira Urea nitrogen/Creatinine [Mass ratio] 14.1 mg/mg Normal [facility] Comment on above: Performed By: #### C BC #### [facility] [address] [address] [address] Raul Pereira US SINGLE QUAD RT [facility] US SINGLE QUAD RT [facility] EXAM: US SINGLE QUAD RT [facility] 07/13/2022 COMPARISON STUDY: None TECHNIQUE: Multiple sagittal [...] MICAH ROSAS Date: 2022-07-13 16:33 Normal [facility] Covid-19 PCR [facility]on 06-17 SARS-CoV-2 (COVID-19) RNA IMELDA+probe Ql (Unsp spec) Not detected Normal NOT DETECTED [facility] Comment on above: Result Comment: This test is not yet approved or cleared by the [place] FDA. When there are no FDA-approved or cleared tests available, and other criteria are met, FDA can make tests available under an emergency access mechanism called an Emergency Use Authorization (EUA). The EUA for this test is supported by the [place] of Health and Human Service's (HHS's) declaration [...] consistent with SARS-CoV-2. Performed By: #### C [facility] #### [facility] [address] [place] [address] Dr. Raul Pereira Endoscopy Reporton 8 Endoscopy [id number] Surgery Date: 02/24/2018 Room #: Z0 Date of : 1960 PROCEDURE NOTEATTENDING: Xin Beasley M.D.PROCEDURE PERFORMED: EGD.LOGISTICS COORDINATOR: Dr. Noland.SEDATION:1. Versed 10 mg.2. Fentanyl 250 [...] 02/24/2018/09:53 Kiara/Ruddy Noland M.D.Date Trans: 02/24/2018 12:13 P/Aditya_JN:[id number] cc: Napoleon Rahman M.D. [address] [place] [address] Normal [facility] Endoscopy Report MR#: [id number] Name: Rhett Mejia Surgery Date: 02/24/2018 Room #: Z0 Date of : 1960 PROCEDURE NOTEATTENDING: Xin Beasley M.D.PROCEDURE PERFORMED: Colonoscopy and polypectomy.LOGISTICS COORDINATOR: Ruddy Noland M.D.SEDATION: Versed 10 mg and [...] 02/24/2018/09:57 A/Ruddy Noland M.D.Date Trans: 02/24/2018 10:12 A/Aditya_JN:[id number] cc: Napoleon Rahman M.D. [address], [facility] [address] Normal [facility] POC GLUCOSE LABon 02-24-2018 Glucose mass conc 87 mg/dL Normal 70-100 [facility] Comment on above: Performed By: #### 8 [id number] ####[place] [id number] [address] Vital Signs Date Time Vital Sign Value Performing Clinician Facility NEGATED: Highlighted row BMI (Body Mass Index) [facility] NEGATED: Highlighted row Body Temperature [facility] NEGATED: Highlighted row Body weight [facility] NEGATED: Highlighted row BP Diastolic [facility] NEGATED: Highlighted row BP Systolic [facility] NEGATED: Highlighted row Height [facility] NEGATED: Highlighted row Pulse (Heart Rate) [facility] NEGATED: Highlighted row Pulse Oximetry [facility] NEGATED: Highlighted row Respiratory Rate [facility] Encounters Encounter Date Encounter Type Care Provider Facility Start: 10-25-2024 End: 10-25-2024 ambulatory Monica Malagon MD Facility:[facility] Start: 10-18-2024 End: 10-18-2024 ambulatory Monica Malagon MD Facility:[facility] Start: 10-11-2024 End: 10-11-2024 ambulatory Andrius Vytautas Triedraitis Facility:[facility] Start: 09-27-2024 End: 09-27-2024 ambulatory Andrius Vytautas Shawnraitis Facility:[facility] Start: 09-06-2024 End: 09-06-2024 ambulatory Andrius Vytautas Giedraitis Facility:[facility] Start: 08-16-2024 End: 08-16-2024 ambulatory Andrius Vytautas Giedraitis Facility:[facility] Start: 08-02-2024 End: 08-02-2024 ambulatory Andrius Vytautas Giedraitis Facility:[facility] Start: 07-30-2024 ambulatory Cristian Johnson acility:[facility] Start: 06-21-2024 End: 06-21-2024 ambulatory Moniac Stantonytautas Mustaphaitis Facility:[facility] Start: 04-08-[address] NAPOLEON RAHMAN [...] without abnormal findings DR NAPOLEON RAHMAN . [facility] Start: 01-31-2023 End: 02-01-2023 Encounter for general adult medical examination without abnormal findings DR KENNETH MORALES Facility:[facility] Start: 01-31-2023 End: 02-01-[address] COOPER LISTED REQUEST Facility:[facility] Start: 01-30-2023 End: 01-31-2023 [...] laboratory examination DR BETHEL LITTLE . [facility] Start: 12-13-2022 End: 12-14-2022 ambulatory [...] Start: 08-27-2022 End: 08-27-2022 ambulatory MICAELA GUPTA [facility] Start: 08-16-2022 End: 08-16-2022 ambulatory MICAELA GUPTA [facility] Start: 08-15-2022 Encounter for other preprocedural examination DR MICAELA GUPTA [facility] Start: 08-15-2022 Encounter for preprocedural laboratory examination DR MICAELA GUPTA [facility] Start: 08-13-2022 End: 08-14-[address] MICAELA GUPTA Facility:[facility] Start: 08-13-2022 End: 08-14-2022 Encounter for other preprocedural examination DR MICAELA GUPTA Facility:[facility] Start: 08-06-2022 End: 08-07-2022 ambulatory MICAELA GUPTA [facility] Start: 08-06-2022 End: 08-06-2022 ambulatory MICAELA GUPTA [facility] Start: [facility]06-[facility] Start: 07-24-2022 End: 07-25-[address] [...] End: 10-19-2014 Patient encounter procedure [facility] Start: 12-22-2013 End: 12-22-2013 Departed Referred [facility] Start: 10-12-2001 End: 10-12-2001 Patient encounter procedure [facility] Start: 09-01-2001 End: 09-01-2001 Patient encounter procedure [facility] Start: 08-26-2001 End: 08-26-2001 Patient encounter procedure [facility] Start: 03-21-1999 End: 03-28-1999 Evaluation and management of inpatient [facility] Start: 09-07-1997 End: 09-07-1997 Admission to day surgery [facility] Start: 07-21-1997 End: 07-21-1997 Emergency department patient visit [facility] Procedures Date Procedure Procedure Detail Performing Clinician Start: 02-24-2018 Colsc flx w/removal lesion by hot bx forceps XIN BEASLEY Payers Date Payer Category Payer Unknown 2015 Medicare 1960 Self-pay 1960 Self-pay [id number] 1960 Unknown [id number] 1960 Unknown [id number] 2.16.84 0.1.698606.3.579.2.593 1959 Unknown [id number] 2.16.84 0.1.832537.3.579.2.593 1959 Unknown [id number] 2.16.84 0.1.902969.3.579.2.593 1959 Unknown [id number] 2.16.84 0.1.349522.3.579.2.593 1959 Unknown [id number] 2.16.84 0.1.199642.3.579.2.593 1959 Unknown [id number] 2.16.84 0.1.696880.3.579.2.593 1959 Unknown [id number] 2.16.84 0.1.781835.3.579.2.593 1959 Unknown [id number] 2.16.84 0.1.601573.3.579.2.593 1959 Unknown [id number] 2.16.84 0.1.323888.3.579.2.593 1959 Unknown [id number] 2.16.84 0.1.590052.3.579.2.593 1959 Unknown [id number] 2.16.84 0.1.071042.3.579.2.593 1959 Unknown [id number] 2.16.84 0.1.679850.3.579.2.593 1959 Unknown [id number] 2.16.84 0.1.356171.3.579.2.593 1959 Unknown [id number] 2.16.84 0.1.984921.3.579.2.593 1959 Unknown [id number] 2.16.84 0.1.739525.3.579.2.593 1959 Unknown [id number] 2.16.84 0.1.399292.3.579.2.593 1959 Unknown [id number] 2.16.84 0.1.581532.3.579.2.593 1959 Unknown [id number] 2.16.84 0.1.838217.3.579.2.593 1959 Unknown [id number] 2.16.84 0.1.409481.3.579.2.593 1959 Unknown [id number] 2.16.84 0.1.787064.3.579.2.593 1959 Unknown [id number] 2.16.84 0.1.415618.3.579.2.593 1959 Unknown [id number] 2.16.84 0.1.250201.3.579.2.593 1959 Unknown [id number] 2.16.84 0.1.490291.3.579.2.593 1959 Unknown [id number] 2.16.84 0.1.613657.3.579.2.593 1959 Unknown [id number] 2.16.84 0.1.440541.3.579.2.593 1959 Unknown [id number] 2.16.84 0.1.500460.3.579.2.593 1959 Unknown [id number] 2.16.84 0.1.260112.3.579.2.593 1959 Unknown [id number] 2.16.84 0.1.294303.3.579.2.593 1959 Unknown [id number] 2.16.84 0.1.216208.3.579.2.593 1959 Unknown [id number] 2.16. 840.1.660279.3.579.2.196 1959 Unknown [id number] 2.16. 840.1.767739.3.579.2.196 1959 Unknown [id number] 2.16. 840.1.960822.3.579.2.196 1959 Unknown [id number] 2.16. 840.1.300963.3.579.2.196 1959 Unknown [id number] 2.16. 840.1.999691.3.579.2.196 1959 Unknown [id number] 2.16. 840.1.978510.3.579.2.196 1959 Unknown [id number] 2.16. 840.1.002951.3.579.2.196 1959 Unknown [id number] 2.16. 840.1.691283.3.579.2.196 Medicare [id number] [id number] Unknown [id number] Unknown [id number] 2.16.84 0.1.899216.3.579.2.593 Unknown [id number] 2.16.8 40.1.751732.3.579.2.531 Clinical Notes 06-29-2022 to 02-18-2023 Note Date & Type Note [...] our patients to inform us about any cwlm-xla-xpggulm medications or herbal remedies/nutritional supplements/alternative remedies. 2. [...] options with their primary care provider. [facility] 01-16-2023 Note CONSULTATION CONSULTATION DATE: [...] up in the clinic post epidural. [facility] 12-04-2022 Note CONSULTATION CONSULTATION DATE: [...] in the office after the procedure. [facility] 11-15-2022 Note CONSULTATION PROCEDURE DATE: [...] the office following her RFA procedure. [facility] 11-15-2022 Note CONSULTATION CONSULTATION DATE: [...] measures such as heat and stretches. [facility] 08-29-2022 Note CONSULTATION PROCEDURE DATE: [...] pattern. Patient tolerated the procedure well. [facility] 08-29-2022 Note CONSULTATION CONSULTATION DATE: [...] up in the office post procedure. [facility] 10-13-2022 Note CONSULTATION CONSULTATION DATE: 08/29/2022 ADDENDUM: Addendum to peer plan: We will repeat radiofrequency ablation starting on the right side and subsequently moving to the left at T11, T12 and L1, L2. [facility] 08-27-2022 Note Subjective Patient ID: [...] past 36 hour(s)). No follow-ups on file. [facility] 08-16-2022 Note Patient: Rhett rousseau Procedure Summary Date: 08/16/22 Room / Location: [facility] OPERATING ROOM 01 / [facility] Operating Room Anesthesia Start: 734 Anesthesia [...] no known notable events for this encounter. [facility] 08-16-2022 Note Airway Date/Time: 08/16/2022 7:44 AM Urgency: elective Airway not difficult General Information and Staff Patient location during procedure: [place] Anesthesiologist: Cassi Velez MD Resident/WORKFORCE SPECIALIST/CAA: LEONARD Canales Performed: resident/WORKFORCE SPECIALIST/CAA Indications and Patient Condition Indications for airway [...] before airway management; Dentures to Circ RN [facility] 08-16-2022 Note Patient: Rhett rousseau Procedure Information Date/Time: 08/16/22 0730 Procedure: CHOLECYSTECTOMY, LAPAROSCOPIC, WITH INTRAOPERATIVE CHOLANGIOGRAM, WITH LAPAROTOMY IF INDICATED REQ ERIC OR MANDO HUERTA MAUK, WOODSON - C-ARM AVAIL STAFF REQUESTS: LENIN DE LA CRUZ Location: [facility] OPERATING ROOM 01 / [facility] Operating Room Surgeons: Micaela Gupta MD [...] Plan discussed with CAA. Additional Equipment Requests [facility] 08-06-2022 Note Subjective Patient ID: Rhett [...] past 36 hour(s)). No follow-ups on file. [facility] 08-06-2022 Note Subjective Patient ID: Rhett [...] past 36 hour(s)). No follow-ups on file. [facility] 06-12-2022 Note CONSULTATION PROCEDURE DATE: 06/12/2022 [...] The patient tolerated the procedure well. [facility] 06-12-2022 Note CONSULTATION CONSULTATION DATE: [...] agrees to the plan of care. [facility] 05-15-2022 Note CONSULTATION CONSULTATION DATE: [...] Patient agrees with the plan of care. [facility] Signed and Approved by: RUBY RAMIREZ . 05/16/2022 13:38:00 [facility] 05-15-2022 Note CONSULTATION PROCEDURE [...] by: RUBY RAMIREZ . 05/16/2022 13:38:00 [facility] Summary Purpose Family History No [...] and content) DATE CREATED AUTHOR 05/07/2018 [facility] DATE CREATED AUTHOR AUTHOR'S ORGANIZ ATION 09/26/2022 [facility] DATE CREATED AUTHOR AUTHOR'S ORGANIZ ATION 03/28/2023 [facility] DATE CREATED AUTHOR AUTHOR'S ORGANIZ ATION 08/01/2024 [facility] DATE CREATED AUTHOR AUTHOR'S ORGANIZ ATION 11/08/2024 [facility] FOR RECORDS PERTAINING TO PATIENTS WHO ARE [...] BE BASED ON THE PRIMARY CLINICAL RECORDS. [facility] [employer] provides no warranty or guarantee of the accuracy or completeness of information in this document.
--- NOTE | 2025-06-01 12:03 | PM.CN ---
Consult Note: HPI Data of Consult Patient: known to practice within the last 3 years Consult date: 06/01/25 Requesting Physician: Jennie Rowe NP Primary Care Provider: Ke Rahman MD Consult Narrative Reason for consult: f/u Narrative: Vida Richard a pleasant 65 year old female presents for evaluation and management of chronic neck mid back and low back pain. Patients PCP manages most of her medications, we prescribe flexeril 5-10mg TID PRN which she utilizes with benefit. patient has completed a provider guided HEP greater than 6 weeks without benefit, continues to engage in HEP as tolerated. hx of benefit to coccygeal RFAs but no longer covered by insurance. pt denies numbness tingling weakness to BLE. middle back pain 5/10 increasing to 9/10 with standing walking and activity. Previously underwent bilateral T10,11 11,12 MBB #1 with >80% improvement in pain and function while anesthetized 08/10 and would like to move forward with MBB #2 working towards RFA cc:: CC: Jennie Rowe NP Review of Systems ROS Status of ROS 10 or more systems reviewed and unremarkable except as noted in history and below [facility] Medical History (Updated 08/25/24 @ 11:11 by Jennie Rowe NP) Upper back pain �M54.9 - Dorsalgia, unspecified (ICD-10) Back pain �M54.9 - Dorsalgia, unspecified (ICD-10) Neck pain �M54.2 - Cervicalgia (ICD-10) Suicidal behavior �R45.89 - Other symptoms and signs involving emotional state (ICD-10) Panic attack �F41.0 - Panic disorder [episodic paroxysmal anxiety] (ICD-10) Depressed �F32.A - Depression, unspecified (ICD-10) Anxiety �F41.9 - Anxiety disorder, unspecified (ICD-10) Hearing deficit �H91.90 - Unspecified hearing loss, unspecified ear (ICD-10) Acid reflux �K21.9 - Gastro-esophageal reflux disease without esophagitis (ICD-10) Left thyroid nodule �E04.1 - Nontoxic single thyroid nodule (ICD-10) Smoker �F17.200 - Nicotine dependence, unspecified, uncomplicated (ICD-10) Asthmatic bronchitis �J45.909 - Unspecified asthma, uncomplicated (ICD-10) Surgical History History of cholecystectomy �Z90.49 - Acquired absence of other specified parts of digestive tract (ICD-10) H/O discectomy �Z98.890 - Other specified postprocedural states (ICD-10) H/O: hysterectomy �Z90.710 - Acquired absence of both cervix and uterus (ICD-10) Gastric bypass status for obesity �Z98.84 - Bariatric surgery status (ICD-10) Meds Home Medications and Allergies Home Medications �Medication �Instructions �Recorded �Confirmed �Type buprenorphine 10 mcg/hour weekly 1 patch transdermal QWEEK 05/01/23 10/25/24 History transdermal patch (Butrans) calcium 600 mg (as cap PO .QD 05/01/23 History carbonate)-vitamin D3 5 mcg (200 unit) capsule (Calcium 600 + D(3)) cyclobenzaprine 5 mg tablet 5 mg PO TID 05/01/23 10/25/24 History dextroamphetamine-amphetamine 20 20 mg PO .QD 05/01/23 10/25/24 History mg tablet diclofenac sodium 1 % topical gel 4 g topical QID 05/01/23 10/25/24 History diclofenac sodium 75 mg 75 mg PO .QD 05/01/23 10/25/24 History tablet,delayed release duloxetine 60 mg capsule,delayed 120 mg PO DAILY 05/01/23 10/25/24 History release (Cymbalta) esomeprazole magnesium 20 mg 40 mg PO DAILY 05/01/23 10/25/24 History capsule,delayed release (Nexium) gabapentin 600 mg tablet 600 mg PO TID 05/01/23 10/25/24 History lidocaine 5 % topical ointment 1 applic 05/01/23 History ziprasidone HCl 20 mg capsule 20 mg PO .HS 05/01/23 10/25/24 History albuterol sulfate 2.5 mg/3 mL 2.5 mg 06/21/24 History (0.083 %) solution for nebulization Allergies Allergy/AdvReac Type Severity Reaction Status Date / Time iodine Allergy unknown Verified 10/25/24 08:00 latex Allergy Unknown Verified 10/25/24 08:00 soybean Allergy Unknown Verified 10/11/24 09:07 Sulfa (Sulfonamide Allergy unknown Verified 10/11/24 09:07 Antibiotics) Exam Constitutional Documenting provider has reviewed patient's vital signs: yes Common normals: no apparent distress, oriented x3, healthy appearing, alert and well nourished General appearance: cooperative HENMT Common normals: normocephalic, hearing grossly normal bilaterally and moist oral mucous membranes Head and scalp: normocephalic Eye Common normals: PERRL Pupil: PERRL Neck & C-Spine Common normals: full ROM General: normal visual inspection Cervical spine: no pain with cervical ROM and no cervical spine tenderness Other: negative radiculopathy negative spurlings strength 5/5 in BUE Chest Common normals: inspection of chest normal Respiratory Common normals: normal respiratory effort, no retractions and no use of accessory muscles Back & Pelvis Thoracic spine/upper back: ROM limited, pain with ROM and thoracic spinal tenderness; no paraspinal muscle tenderness Lumbar spine/lower back: ROM limited and straight leg raise negative bilaterally; no pain with ROM, no lumbar spinal tenderness and no paraspinal muscle tenderness Sacroiliac joints: SI joints normal Other: negative bilateral becca(patricks), gaenslens, thigh thrust, compression test negative radiculopathy strength 5/5 in BLE tenderness over t10-12 facets facets, positive facet loading bilaterally Neuro Common normals: oriented x3, CN's II-XII intact bilaterally, moves all extremities, no focal motor deficits, no sensory deficits noted and deep tendon reflexes 2+ bilaterally Sensorium/orientation: alert Motor exam: strength 5/5 throughout and no movement abnormalities noted Psych Common normals: mental status grossly normal, thought process normal, cooperative, affect normal, speech normal and activity/motor behavior normal Speech: normal speech Thought process: normal thought process Results Additional Findings Additional findings: If on a controlled substance or opioids, I have checked an [place]AR[place] report on this patient and there are no aberrancies noted in the prescribing history.��If on a controlled substance or opioid a drug screen was completed and reviewed within the last year, and if there has not been a drug screen completed we ordered one today to monitor higher risk, state monitored pain medication use. As part of providing excellent, safe, comprehensive care, the following was completed at our patient's visit: 1. A medication reconciliation and review to ensure accurate knowledge of current/active medications, including asking our patients to inform us about any jpis-tjf-hoenjbx medications or herbal remedies/nutritional supplements/alternative remedies. 2. A review to specifically ensure our patients have had annual screening for screening for depression, screening for tobacco use, and screening for unhealthy alcohol use. For concerning screenings had a discussion with the patient, provided patient education, and recommended follow-up with primary care provider when appropriate. If patient noted with a risk of falling, they received education on strength, gait, and balance training to prevent future risk of falling. Assessment and Plan Assessment and Plan (1) Thoracic spondylosis: Assessment and Plan: The patient has had over 3 months of moderate to severe middle back pain with functional impairment and inadequate response to conservative care including NSAIDS (unless there are contraindication such as concurrent blood thinners), multiple oral or topical pain medications, and home exercise program/physical therapy.� Patient has completed >6 weeks of guided home exercise program and/or formal physical therapy program without relief of their symptoms.� The Oswestry Disability Index was completed, and the patient scored a 52%.� The patient noted the following:�� moderate to severe pain with ADLs, standing, walking, sitting, sleeping, social life, travel We discussed the risks and benefits of the procedure with the patient, and we are NOT planning on using sedation as outlined in the guidelines from Medicare unless there is a documented reason that sedation would be strongly recommended.�� �The procedure will be completed with fluoroscopic guidance.� (2) Lumbar spondylosis: Plan bilateral T10,11 T11,12 MBB #2 working towards RFA continue medications f/u after injection
== END 2025-06-01 10:59 | disposition home or self-care (01) ==
LOC: PM 10:58
PROVIDERS: PCP Family Medicine; Visit Provider Nurse Practitioner
DX: M47.814 Spondylosis without myelopathy or radiculopathy, thoracic region (principal); M47.816 Spondylosis without myelopathy or radiculopathy, lumbar region
CPT/HCPCS: G0463

== ENCOUNTER 2025-09-09 12:40 | Outpatient (OUT) | payer MEDICARE, OTHER, SELFPAY ==
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
--- OUTSIDE RECORDS SUMMARY | 2025-09-05 06:17 | XMS_ITS ---
Author Organization [facility] in [place] Address [address] [place] [address] Care Team Providers Care Partnership Development Manager Name Role Phone Km Rahman Primary Care Provider Kassandra Owens [phone] REASON FOR VISIT walk test Procedures Procedure Date Ordered Date Performed Result Body Sit e Six minute walk 09/05/2025 N/A Encounters Encounter Location Date Provider Diagnosis [facility] [address] [place] [address] 09/05/2025 Kassandra Owens COPD (chronic obstructive pulmonary disease) J44.9 Assessments Encounter Date Diagnosis (ICD Code) Assessment Notes Treatment Notes Treatment Clinical Notes Section Notes 09/05/2025 COPD (chronic obstructive pulmon clover disease) (ICD-10 - J44.9) Plan Of Treatment Pending Test Test Name Order Date Six minute walk 09/05/2025 Progress Notes * Vida MEJIA LDOB: [birth year] (65 yo F)Acc No.[id number]:09/05/2025 Patient:?Vida MEJIA :1960???Age:65 Y???Sex:FemalePhone:[phone] Address:[address] [place] [address] Subjective: * Chief Complaints: * W alk test * Medical History: * Surgical History: * Hospitalization/Major Diagno stic Procedure: * Medications: Objective: * Vitals: * Physical Examination: ??? Assessment: * Assessment: 1.?COPD (chronic obstructive pulmonary disease) - J44.9 (Primary)??? Plan: * Treatment: ?Procedure: Six minute walk * Procedure Codes: * true * Date:?Generated for Printing/Faxing/eTransmitting on:?09/09/2025 12:43 PM EDT
--- OUTSIDE RECORDS SUMMARY | 2025-09-09 12:42 | XMS_ITS | Clinical Summary ---
Author Organization [facility] Address [address] [place] [address] Care Team Providers Care Animal Ride Manager Name Role Phone Unavailable Primary Care Provider Unavailabl e Social History Tobacco UseTypesPacks/DayYears UsedDateSmoking Tobacco: Never Assessed CommentsUnknownSex and Gender InformationValueDate RecordedSex Assigned at Not on fileLegal RigIiieot76/15/2023 6:59 PM EDTGender IdentityNot on fileSexual OrientationNot on file Plan of Treatment Not on file
--- OUTSIDE RECORDS SUMMARY | 2025-09-09 12:42 | XMS_ITS | Clinical Summary ---
Author Organization [facility] Address [address] [place] [address] Care Team Providers Care Electrician'S Helper Name Role Phone Ke Rahman MD Primary Care Provider [phone] Social History Tobacco UseTypesPacks/DayYears UsedDateSmoking Tobacco: Never Assessed CommentsUnknownSex and Gender InformationValueDate RecordedSex Assigned at Not on fileLegal LilXawehh45/02/2012 10:04 AM ESTGender IdentityNot on file Sexual OrientationNot on file Plan of Treatment Health MaintenanceDue DateLast DoneCommentsAnxiety Vojkgjgbe67/22/1977Depression Rnsronfow04/22/1977Hepatitis C Fqgijtfqv48/22/1977DTaP,Tdap,Td Vaccine (1 - Tdap)1978Mammogram Jkbznojfe78/22/1999CT Hndftywtwnqt66/22/2004Cologuard (FIT-DNA)01/08/20042228Nvdbegnmjcr05/22/2004Colorectal Cancer Nnyxuhfvm02/22/2004 Diabetes Vysoenbbj53/22/2004Fecal Occult Blood2004Lipid Screening 01/08/20044188Gorafkgnaizwe45/22/2004Pneumococcal Vaccine: 50+ (1 of 1 - PCV) 2009Shingrix Vaccine (1 of 2)2009one Density Bwjjqnmnk31/22/2024 Advance Directive Pueebgntuh02/01/2025ovid-19 Vaccine (1 - 2024- season) 2025Influenza Vaccine (#1)2025RSV Vaccine (1 - 1-dose 75+ series) 2034 Insurance Care Teams Team MemberRelationshipSpecialtyStart Date Ke Rahman MD [address] [place] [address] [facility] - General06/18/04
--- OUTSIDE RECORDS SUMMARY | 2025-09-09 12:43 | XMS_ITS | Patient Health Record ---
Author Organization [facility] in [place] Address [address] [place] [address] Care Team Providers Care Associate Professor Of Literature Name Role Phone Km Lopez Primary Care Provider Kassandra Owens Unavailable [phone] Allergies Allergen (clinical drug ingredient) Drug/Non Drug Allergy documented on EMR Reaction Allergy Type Onset Date Status IV Iodine Dye (uncoded)anaphylaxisAllergyActiveLatexLatex (uncoded)Unknown AllergyActiveSoy manzanares (uncoded)UnknownAllergyActiveSubstance with sulfonamide structure and antibacterial mechanism of action (substance)Sulfa Antibiotics UnknownDrug AllergyActive Results Component Value Reference Range Notes COVID-19, Flu A+B IH (Not ye t reviewed by provider) Interpretation: Performing Lab: Notes/Report: COVID neg FLU AnegFLU BnegControlpresentXR foot LT min 3V Reviewed date:11/28/2024 10:18:39 AM Interpretation: Performing Lab: Notes/Report: Source Facility: [place] [address] [place] [address] XRay Report Signed Patient: RHETT MEJIA MR#: [id number] : 1960 Acct:[id number] Age/Sex: 64 / F ADM Date: 11/26/24 Loc: RAD Attending Dr: Napoleon Lopez M.D. Ordering Physician: Napoleon Lopez M.D. Date of Service: 11/26/24 Procedure(s): XR foot LT min 3V Accession Number(s): [id number] cc: Napoleon Lopez M.D. [place] [id number] Patient Name: RHETT MEJIA MRN: [id number] date: 1960 Sex: F Assigned Patient Location: [facility] Current Patient Location: [facility] Accession/Order Number: [id number] Exam Date: 11/26/2024 13:20 Report Date: 11/26/2024 [...] Lipscomb M.D. Signed By: 11/26/24 1408 DD/ 04 TD/TT: Winding Department Supervisor:US venous doppler LE BI Reviewed date:11/28/2024 10:18:39 AM Interpretation: Performing Lab: Notes/Report: Source Facility: [place] [address] Ultrasound Report Signed Patient: RHETT MEJIA MR#: [id number] : 1960 Acct:[id number] Age/Sex: 64 / F ADM Date: 11/26/24 Loc: RAD Attending Dr: Napoleon Lopez M.D. Ordering Physician: Napoleon Lopez M.D. Date of Service: 11/26/24 Procedure(s): US venous doppler LE RT Accession Number(s): [id number] cc: Napoleon Lopez M.D. [address] [address] Patient Name: RHETT MEJIA MRN: [id number] date: 1960 Sex: F Assigned Patient Location: [facility] Current Patient Location: RAD Accession/Order Number: [id number] Exam Date: 11/26/2024 13:20 Report Date: 11/26/2024 [...] Signed By: 11/26/24 1403 DD/ 1401 TD/TT: Winding Department Supervisor: Reason For Referral Diagnosis 1 Calcaneus fracture, right (S92.001A) Referral Organization [facility] Referring Provider First Name Km Referring Provider Last Name [facility] Provider Billy Abdullahi Referred Provider [facility] Orthopedic [facility]gery Referral Priority Routine Diagnosis 1 Calcaneus fracture, right (S92.001A) Referral Organization [facility] Referring Provider First Name Km Referring Provider Last Name [facility] Referred Provider Billy Abdullahi Referred Provider Specialty Orthopedic S urgery Referral Priority Routine Medications Medication SIG (Take, Route, Frequency, Duration) Notes Start Date End Date Status Eliquis 5 MG 2 po BID for 1 week then 1 po BI D Orally BID; Duration: 30 days 5ActiveValtrex 1 GM1 tablet Orally TID; Duration: ctive Esomeprazole Magnesium 40 MG1 capsule Orally BID; Duration: 90 daysActive Ventolin HFA 108 (90 Base) MCG/ACT2 puff as needed Inhalation every 4 hrs 05/28/2024ctiveDicyclomine HCl 20 MG1 tablet Orally Three times a day; Duration: 30 days08/06/2024ctiveTriamcinolone Acetonide 0.1 %1 application Externally Twice a day; Duration: ctiveProlia 60 MG/MLas directed SubcutaneousActivePromethazine HCl 25 MG1 suppository as needed Rectal every 12 hrsPRNActiveGeodon 20 MG1 capsule with food Orally once daily; Duration: 30 days ActiveIncentive spirometeras directed DX: COPD BID; Duration: 30 days01/09/2024 ActiveFurosemide 20 MG1 tablet Orally Once a day; Duration: 30 kvlfRHX7602/25/2023 ActiveVitamin C 500 MGOrallyActiveVitamin D 400 UNIT2 capsules Orally Once a day ActiveEster-C -as directed OrallyActiveVistaril 25 MG1 capsule at bedtime as needed Orally Once a dayPRNActiveFerrous Sulfate 325 (65 Fe) MG1 tablet Orally BIDActiveVitamin B-12 100 MCGOrallyActiveMeloxicam 15 MG1 tablet Orally Once a day; Duration: 30 days11/26/2024tiveAdult Aerosol Mask -as directedPRNActive Multivitamin Adult -OrallyActiveLidocaine-Prilocaine 2.5-2.5 %Apply small amount topically twice daily; Duration: 30 02/06/2024ctiveMagnesium 300 MG2 capsule with a meal Orally Once a daypain clinicActiveIncentive spirometerUse every hour at directed. DX Heel Fracture; Duration: 365 06/20/2025tive Gabapentin 300 MGtake 2 capsules by mouth three times a day; Duration: 30 days ActiveCymbalta 60 MG2 capsule Orally Once a dayActiveAmphetamine- Dextroamphetamine 20 MGtake 1 tablet by mouth once daily; Duration: ActiveBuprenorphine 15 MCG/HRAPPLY 1 PATCH TO SKIN ONCE A WEEK Transdermal weekly dxM51.9; Duration: 28 08/29/2025tivePotassium Chloride ER 10 MEQ1 tablet with food Orally Twice a day; Duration: 30 daysMICRO K CAPSULES02/25/2023ctiveCompression Stocking Thigh 20-30mmHg -wear daily; Duration: 30 days06/03/2025tivelevoFLOXacin 750 MG1 tablet Orally Once a day; Duration: 10 day(s)08/19/2025tiveCalcium 150 MGOrallyActiveOndansetron 4 MG1 tablet on the tongue and allow to dissolve Orally qid; Duration: 5 days 5ActiveAlbuterol Sulfate (2.5 MG/3ML) 0.083%3 mL as needed Inhalation every 6 hrsPRNActiveNebulizer/Tubing/Mouthpiece -as directedPRNActive Immunizations Vaccine Route Administration Date Status Comme nts Flu, Flucelvax (8830-4662) (06985) 6 mos +, single-dose syringe IM Intramuscular 10/08/2023 Administered JsahNntajyy12/05/2019Administered Social History Tobacco Use: Social History Observation Description Date Details (start date - stop date) Current Smoker 11/17/1966 - NA Tobacco Use/Smoking Question Answer Notes Patient is a current smoker When did you start smoking?11/17/1966How often do you smoke cigarettes?every day How many cigarettes a day do you smoke?11-20Additional Findings: Tobacco User Heavy cigarette smoker (20-39 cigs/day)Alcohol Screen (Audit-C) Question Answer Notes Did you have a drink containing alcohol in the p ast year? No Wamgcs4YznpkkjwvtotspLuiyugngSURGT-B (Standard) Question Answer Notes Did you have a drink containing alcohol in the p ast year? Yes How often did you have six or more drinks on one occasion in the past year?Never (0 point)How many drinks did you have on a typical day when you were drinking in the past year?1 or 2 drinks (0 point)How often did you have a drink containing alcohol in the past year?Monthly or less (1 point)Ldsmac1KvuxqpqunjtzlkPmmlivvu Problems Problem Type SNOMED Code ICD Code Onset Dates Problem Status W/U Status Risk Notes Problem Attention deficit hy peractivity disorder (889701933) Attention-deficit hyperactivity disorder, unspecified type (F90.9) ActiveconfirmedProblemPeripheral venous insufficiency (27913667)Venous insufficiency (chronic) (peripheral) (I87.2)ActiveconfirmedProblemMixed simple and mucopurulent chronic bronchitis (658051258)Mixed simple and mucopurulent chronic bronchitis (J41.8)ActiveconfirmedProblemAcute cholecystitis (05953378) Acute cholecystitis (K81.0)ActiveconfirmedProblemPain in limb (93040587)Pain in right upper arm (M79.621)ActiveconfirmedProblemAltered mental status (205747053) Altered mental status, unspecified (R41.82)ActiveconfirmedProblemLocalized edema (6811896)Localized edema (R60.0)ActiveconfirmedProblemNonspecific tuberculin test reaction (747606166)Nonspecific reaction to tuberculin skin test without active tuberculosis (R76.11)ActiveconfirmedProblemContusion of head (disorder) (532642938)Contusion of other part of head, initial encounter (S00.83XA)Active confirmedProblemMigraine variant with headache (disorder) (133459798)Migraine headache (G43.909)ActiveconfirmedProblemCOPD - Chronic obstructive pulmonary disease (71247848)COPD (chronic obstructive pulmonary disease) (J44.9)Active confirmedProblemDiastolic dysfunction (3525860)Diastolic dysfunction (I51.9) ActiveconfirmedProblemAnxiety (46543200)Anxiety (F41.9)ActiveconfirmedProblem Edema (81588963)Edema (R60.9)ActiveconfirmedProblemHyperglycemia (60717799) Hyperglycemia (R73.9)ActiveconfirmedProblemInsomnia (259988032)Insomnia (G47.00) ActiveconfirmedProblemHiatal hernia (44993816)Hiatal hernia (K44.9)Active confirmedProblemLeft foot drop (212164628464420)Foot drop, left foot (M21.372) 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) ActiveconfirmedProblemBronchitis (85105599)Bronchitis (J40)Activeconfirmed ProblemTricuspid valve disorder (95419637)Mild tricuspid regurgitation (I07.1) ActiveconfirmedProblemSciatica (31557757)Sciatica of right side (M54.31)Active confirmedProblemThyroid nodule (852299162)Thyroid nodule (E04.1)Activeconfirmed ProblemDisorder of lumbar disc (622878759)Lumbar disc disease (M51.9)Active confirmedProblemSkin lesion (19736200)Skin lesion (L98.9)ActiveconfirmedProblem Well adult (579006023)Well adult (Z00.00)ActiveconfirmedProblemCellulitis (423181378)Cellulitis (L03.90)ActiveconfirmedProblemScoliosis (922333416) Scoliosis (M41.9)ActiveconfirmedProblemPlantar fasciitis (194861078)Plantar fasciitis (M72.2)ActiveconfirmedProblemNear syncope (424536912)Near syncope (R55)ActiveconfirmedProblemChest wall pain (325040948)Chest wall pain (R07.89) ActiveconfirmedProblemSpasm of back muscles (476218154)Spasm of back muscles (M62.830)ActiveconfirmedProblemDystonia (04368762)Dystonia (G24.9)Active 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, bilateral (207599532)Mixed hearing loss, bilateral (H90.6)ActiveconfirmedProblemBasal cell carcinoma (2503192)Basal cell carcinoma (C44.91)ActiveconfirmedProblemPain in left foot (776017305862357)Left foot pain (M79.672)ActiveconfirmedProblemNevus (6979545677)Nevus (D22.9)ActiveconfirmedProblemFibrocystic breast changes (26275911)Fibrocystic breast disease (N60.19)ActiveconfirmedProblemOtosclerosis (02198223)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)ActiveconfirmedProblemTinnitus of left ear (8065534994511)Tinnitus, left (H93.12)ActiveconfirmedProblemSeborrheic keratosis (98302342)Keratosis, seborrheic (L82.1)ActiveconfirmedProblemPanic attack (184867944)Panic attack (F41.0)ActiveconfirmedProblemSuperficial thrombophlebitis (9586429)Superficial thrombophlebitis (I80.9)Activeconfirmed ProblemCellulitis of right hand (08722168304062367)Cellulitis of right hand (L03.113)ActiveconfirmedProblemPeripheral venous insufficiency (03477942)Venous reflux (I87.2)ActiveconfirmedProblemGastro-esophageal reflux disease (618480811) Gastro-esophageal reflux disease (K21.9)ActiveconfirmedProblemClosed fracture of calcaneus (44955251)Calcaneus fracture, right (S92.001A)ActiveconfirmedProblem Shoulder impingement syndrome (477960471)Shoulder impingement syndrome (M75.40) ActiveconfirmedProblemVitamin B deficiency (68998148)Deficiency of vitamin B12 (E53.8)ActiveconfirmedProblemLeg mass, right (R22.41)ActiveconfirmedProblemMass of neck (697222344)Mass of neck (R22.1)ActiveconfirmedProblemCardiomegaly (0218847)Left atrial dilation (I51.7)ActiveconfirmedProblemVaricose veins of lower extremity (67017950)Varicose veins of lower extremity (I83.90)Active confirmedProblemDeep vein thrombophlebitis of lower leg, unspecified laterality (I80.209)ActiveconfirmedProblemBruising (872328453)Bruising (T14.8XXA)Active confirmedProblemHistory of bypass of stomach (501521709)H/O gastric bypass (Z98.84)ActiveconfirmedProblemMyalgia (50673823)Myalgia (M79.10)Activeconfirmed ProblemBenign neoplasm of maxillary sinus (06752107)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)ActiveconfirmedProblemLow back pain (550808018)Low back pain, unspecified (M54.50)Activeconfirmed Vital Signs Heart Rate 102 /min 09/02/2025 Uhrxoppzupl29.0 degrees Zpcpkogass83/22/1737Qhnkrivp85 %09/02/2025lood pressure edypbkgqy57 mm Hg09/02/20252229Urvqqx39 in08/19/2025lood pressure gbpfwiax679 mm Hg 09/02/20258489Rfyhfg789.8 lbs10MI24.94 kg/m210 Procedures Procedure Date Ordered Date Performed Result Body Sit e Six minute walk 09/05/2025 N/A Encounters Encounter Location Date Provider Diagnosis [facility] [address] [place] [address] 08/02/2025 Km y [facility] [facility] [place] [address] 08/29/2025Doug [facility] [facility] [place] [address]/Doug [facility] [facility] [place] [address]/Pamela CramerCOPD (chronic obstructive pulmonary disease) J44.9B[facility] [facility] [place] [address]/Doug HoyCellulitis L03.90[facility] [facility] [place] [address]/Doug [facility] [facility] [place] [address]/02/2025 Km HoyCalcaneus fracture, right S92.001[facility] [place] [address]/04/2025Doug HoyCalcaneus fracture, right S92.001AB[facility] [facility] [place] [address] 06/30/2025Doug [facility] [facility] [place] [address]/03/2025Doug [facility] [place] [address]/Doug [facility] [facility] [place] [address]/Doug [facility] [place] [address]/Doug [facility] [address] [place] [address]/06/2025Doug [facility] [place] [address]/07/2025Doug [facility] [place] [address] 05/27/2025Doug [facility] [place] [address]/Doug [facility] [place] [address]/11/2024Doug [facility] [place] [address]/Doug [facility] [place] [address]/Doug [facility] [place] [address]/ [facility] [place] [address]/04/2025Doug [facility] [place] [address]/Doug [facility] [place] [address]/Doug HoySciatica of right side M54.31BV[facility] [place] [address] 02/07/2025Doug [facility] [place] [address]/Doug [facility] [place] [address]/09/2025Doug [facility] [place] [address]/09/2025Doug [facility] [place] [address]/Doug [facility] neoplasm of maxillary sinus D14.0[facility] [place] [address]/01/2025Doug [facility] [place] [address]/Doug [facility] [place] [address]/Doug [facility] [place] [address]/01/2025 Km [facility] [place] [address]/08/2025Doug [facility] [place] [address]/01/2025Doug [facility] [place] [address]/08/2025Doug [facility] [place] [address]/10/2025Doug [facility] [place] [address]/ Km [facility] [place] [address] 12/14/2024Doug [facility] [place] [address]Doug [facility] [place] [address]/[facility] [facility] [address] [place] [address]/[facility] [facility] [place] [address]/[facility] [facility] [place] [address]/ Km [facility] [facility] [place] [address]/[facility] [facility] [place] [address]/[facility] [facility] [place] [address]/[facility] [facility] [place] [address]/[facility] [facility] [place] [address]/ Kassandra CramerCOPD (chronic obstructive pulmonary disease) J44.9B[facility] [facility] [address]/07/2025Doug Hoy Edema R60.9 and Left foot pain M79.672BGrand [facility] [facility] [address]/Doug HoyBody aches R52 ; Chest congestion R09.89 ; Acute bronchitis, unspecified organism J20.9 ; COPD (chronic obstructive pulmonary disease) J44.9 ; Dyspnea R06.00 and Chest pain R07.9 [facility] [facility] [place] [address] 05/23/2025Doug HoyCellulitis L03.90[facility] [facility] [place] [address]/03/2025Doug HoySciatica of right side M54.31 [facility] [place] [address] 08/19/2025Doug HoyGastro-esophageal reflux disease K21.9 and Attention-deficit hyperactivity disorder, unspecified type F90.9 Assessments Encounter Date Diagnosis (ICD Code) Assessment Notes Treatment Notes Treatment Clinical Notes Section Notes 12/22/2024 Sciatica of right side (ICD-10 - M54.31) oding well with qonmhy4811/25/2024Edema (ICD-10 - R60.9)11/25/2024Left foot pain (ICD-10 - M79.672)12/08/2024ody aches (ICD-10 - R52)12/08/2024hest congestion (ICD-10 - R09.89)05/23/2025ellulitis (ICD-10 - L03.90)us to rule otu DVT and rocephin with double oral ab08/19/2025Gastro-esophageal reflux disease (ICD-10 - K21.9)08/19/2025ttention-deficit hyperactivity disorder, unspecified type (ICD- 10 - F90.9)09/02/2025OPD (chronic obstructive pulmonary disease) (ICD-10 - J44.9) requesting walk test home 02? 12/16/2024enign neoplasm of maxillary sinus (ICD-10 - D14.0)02/02/2025Sciatica of right side (ICD-10 - M54.31)06/02/2025ellulitis (ICD-10 - L03.90)06/20/2025 Calcaneus fracture, right (ICD-10 - S92.001A)06/22/2025alcaneus fracture, right (ICD-10 - S92.001A)09/05/2025OPD (chronic obstructive pulmonary disease) (ICD- 10 - J44.9)5Acute bronchitis, unspecified organism (ICD-10 - J20.9)Rest and drink more liquids, especially water. You may use a humidifier or vaporizer to help keep the drainage moist. Heaj-ftt-khdhloz Nasal Saline may help the stuffy and runny nose. Use Ibuprofen and or Tylenol as needed for fever, chills, body aches or pain. Children 5 years old should not be given lfqo-gnu-awwhgln cough and cold medications such as guaifenesin and dextromethorphan. If you're o yana age 5, you may try bdbf-dly-fzxmbod cold medications such as guaifenesin and dextromethorphan, or multi-symptom cold reliever such as Dayquil to help reduce the symptoms. Antibiotics have been prescribed. You should take these until completed and follow the directions. Antibiotics can sometimescause upset stomach, and in rare cases, serious [...] go to the emergency room or call [phone] (chronic obstructive pulmonary disease) (ICD-10 - J44.9)12/08/2024Dyspnea (ICD- 10 - R06.00)12/08/2024hest pain (ICD-10 - R07.9) Plan Of Treatment Pending Test Test Name Order Date Lexiscan Stress Nuclear Test 12/08/2024 HEMOGLOBIN A1C (GLYCO) 08/19/2025 IRON, TOTAL 08/19/2025 LIPID PANEL (CHOL/TRIG/HDL/LDL) 08/19/20 25 VITAMIN D, 25 LEVEL (TOTAL) 08/19/2025 Six minute walk 09/05/2025 CT Lower Leg RT w/o contrast * (Optional 3D Rendering) 04/01/2023 Echo Complete 02/18/2024 COVID-19, Flu A+B IH 12/08/2024 STOOL OCCULT BLOOD 08/19/2025 CT Sinus w/o Contrast 05/25/2024 GI PANEL (PCR) 04/01/2023 OVA AND PARASITE EXAMINATION 10/02/2023 STOOL CULTURE 10/02/2023 US PREMA DOP LEG LT 05/23/2025 US PREMA DOP LEG RT 05/23/2025 US PREMA DOP LEG RT 11/25/2024 XR CHEST 2 V 04/06/2024 XR FOOT LT MIN 3 VIEWS 11/25/2024 THYROID PANEL (T4/TSH/FREE T3) 5 MM screening mammo BI 08/19/2025 C. Difficile PCR 10/02/2023 CT CHEST LOW DOSE (LDCT) 08/19/2025 CT sinus w con 05/25/2024 CMP (COMP MET MARIN) w/eGFR CKD-EPI 2024 CBC WITH DIFF 08/19/2025 Insurance Providers Payer Name Payer Address Payer Phone Subscriber Number Group Number Insured Name Patient Relationship to Insured Coverage Start Date Coverage End Date [place] [address] [place] [address] [id number] Daniella Mejia - patient is the insuredMMO MEDICARE SUPPLEMENTPO [address] [place] [id number], TerriSelf - patient is the insured Medications Administered Medication Instructions Date of Administration Dosage Notes Ceftriaxone 1 gram gTriamcinolone 40 mg/ml5120 mg Medical (General) History Medical History History [...] 

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
--- OUTSIDE RECORDS SUMMARY | 2025-09-09 12:43 | XMS_ITS | Clinical Summary ---
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 Role Phone Ke Rahman MD Primary Care Provider [phone] Allergies Active AllergyReactionsCriticalityNoted DateCommentsIodinated Contrast Media 11/04/2014 Other reaction(s): other Pgddaz9411/04/2014 Other reaction(s): other Latex11/04/2014 Other reaction(s): other Qhosabtrgm38/19/2014 Other reaction(s): other Jisxhavatjd06/19/2014 Other reaction(s): other Povidone-Gkcjuy7111/04/2014 Other reaction(s): other Soy3659Viwwziv70/19/2014 Other reaction(s): other Medications MedicationSigDispense QuantityRefillsLast FilledStart DateEnd DateStatus acyclovir (Zovirax) 400 mg tablet Active acyclovir (Zovirax) 800 mg tablet Active albuterol 90 mcg/actuation inhaler Active alendronate (Fosamax) 70 mg tablet Active alpha lipoic acid 600 mg capsule Take 1 mg twice a day by oral route.Active azithromycin (Zithromax) 250 mg tablet Active baclofen (Lioresal) 20 mg tablet Active brexpiprazole (Rexulti) 1 mg tablet Take 1 tablet every day by oral route.Active buprenorphine (Butrans) 10 mcg/hour Active buprenorphine (Butrans) 5 mcg/hour Active cephalexin (Keflex) 500 mg capsule Active cyanocobalamin, vitamin B-12, 1,000 mcg tablet, sublingual Place by sublingual route.Active amphetamine-dextroamphetamine (Adderall) 20 mg tablet Active diazePAM (Valium) 5 mg tablet Active DULoxetine (Cymbalta) [address] capsule Take 1 capsule twice a day by oral route for 30 days.Active erythromycin (Romycin) 5 mg/gram (0.5 %) ophthalmic ointment Active esomeprazole (NexIUM) [address] capsule Take 40 mg by mouth in the morning and at bedtime.Active esomeprazole (NexIUM) [address] capsule Take 1 capsule every day by oral route.Active HYDROcodone-acetaminophen (Liverpool) 5-325 mg tablet Active nortriptyline (Pamelor) 25 mg capsule Active oxyCODONE (Roxicodone) 10 mg immediate release tablet Active oxyCODONE-acetaminophen (Percocet) 5-325 mg tablet Active PARoxetine (Paxil) 40 mg tablet Active polyethylene glycol (Glycolax) 17 gram/dose powder as instructed , mix with 2 litters of Getorade and take as instructed for colonoscopy prep02/10/2018Active prazosin (Minipress) 1 mg capsule Active rifAXIMin (Xifaxan) 550 mg tablet Active rivaroxaban (Xarelto) 15 mg tablet Active sertraline (Zoloft) 100 mg tablet Take 1 tablet every day by oral route.Active sertraline (Zoloft) 50 mg tablet Active sulfamethoxazole-trimethoprim (Bactrim DS) 800-160 mg tablet Active tobramycin-dexamethasone (Tobradex) ophthalmic suspension Active ascorbic acid (Vitamin C) 100 mg tablet Vitamin CActive magnesium oxide 200 mg magnesium tablet,chewable magnesiumActive calcium carbonate (Os-Jeferson) 500 mg calcium (1,250 mg) chewable tablet Calcium 500Active gabapentin (Neurontin) 600 mg tablet Take 600 mg by mouth in the morning, at noon, and at bedtime.Active albuterol 90 mcg/actuation inhaler Inhale 2 puffs every 6 (six) hours if needed for wheezing.Active methocarbamol (Robaxin) 500 mg tablet Take 500 mg by mouth in the morning and at bedtime.Active Active Problems ProblemNoted DateDiagnosed DateHistory of wrbycrynmw80/30/2022History of DVT (deep vein thrombosis)08/16/2022 Overview (08/16/2022): In the past. Not on blood thinners per patient. Calculus of gallbladder without cholecystitis without uqwszkateni12/21/2022 Overview (08/07/2022): Added automatically from request for surgery [id number] Yctlquy6602/10/2018Panic vfwuks9102/10/2018Right lower quadrant pain05/14/2011 Tobacco dependence iqkgbxxu38/28/2011 Resolved Problems ProblemNoted DateDiagnosed DateResolved DateInfected sebaceous cyst08/05/2022 08/16/2022acterial cxdxqikfa20/25/Edema03/10/ain in limb03/10/Type 1 diabetes qoksxokm08/19/ Candidiasis of skin and nails05/14/Noninfectious gastroenteritis 05/14/besity05/14/ Social History Tobacco UseTypesPacks/DayYears UsedDateSmoking Tobacco: Every VymKqjlhyziav776 Smokeless Tobacco: Never Tobacco Cessation:Ready to Q uit: Not Asked; Counseling Given: Not Answered Alcohol UseStandard Drinks/WeekCommentsYes0 (1 standard drink = 0.6 oz pure alcohol)PHQ-2AnswerDate RecordedPatient Health Questionnaire-2 Fotob161 [place] Safety & EnvironmentAnswerDate RecordedFear of Current or Ex-PartnerNot on file2024Emotionally AbusedNot on file2024hysically AbusedNot on file2024Sexually AbusedNot on file2024hysically or Sexually Abused Not on file2024CommentsUnknownSex and Gender InformationValueDate RecordedSex Assigned at BirthNot on fileLegal BzhOqaars44/29/2022 10:03 PM EDT Gender IdentityNot on fileSexual OrientationNot on file Last Filed Vital Signs Vital SignReadingTime TakenCommentsBlood Ivuyihol356/8110 1:06 PM EDT Jpxub0035 1:06 PM SFRWxvhsrzbtvp04.1 ??C (98.8 ??F)08/27/2022 1:06 PM EDTRespiratory Vcpf461508/16/2022 11:31 AM EDTOxygen Vqifafosaa12%08/16/2022 11:31 AM EDTInhaled Oxygen Concentration--Jkokio35.8 kg (131 lb 12.8 oz)08/27/2022 1:06 PM DXYIthjbm222 cm (5' 3 )08/16/2022 6:40 AM EDTBody Mass Index23.35 08/16/2022 6:40 AM EDT Plan of Treatment Health MaintenanceDue DateLast DoneCommentsCT Jvnjsvgfadoe1959Colonoscopy 1959Colorectal Cancer Mtyljtalo1959FIT-DNA1959FIT1960 FOBT1960Medicare Annual Wellness (AWV)1960 8523Ztzxidbjqroxc1960 Depression Xjschgkxr03/22/1971Pneumococcal Vaccine: 50+ Years (1 of 2 - PCV) 01/08/19789507Ghyxjtwai91/22/1999Zoster Vaccines (1 of 2)2009Fall Risk Bqkfdqktj39/22/2024COVID-19 Vaccine (3 - season)/11/2020, 01/18/2021Influenza Vaccine (#1)/01/2021, 08/07/2020, 09/10/2018, Additional history existsAdult Czmthyl21HIB VaccinesAged OutNo longer eligible based on patient's age to complete this topicHPV VaccinesAged OutNo longer eligible based on patient's age to complete this topicIPV Vaccines Aged OutNo longer eligible based on patient's age to complete this topic Meningococcal B VaccineAged OutNo longer eligible based on patient's age to complete this topicMeningococcal VaccineAged OutNo longer eligible based on patient's age to complete this topicRotavirus VaccinesAged OutNo longer eligible based on patient's age to complete this topic Insurance * Guarantor: Vida Richard LAccount TypeRelation to PatientDate of BirthPhone Billing AddressPersonal/WrnbxbFyiw1960 [address] [phone] Care Teams Team MemberRelationshipSpecialtyStart DateEnd Ke Rahman MD [address] [place] [address] PCP - General08/06/22
--- OUTSIDE RECORDS SUMMARY | 2025-09-09 12:44 | XMS_ITS | CCD ---
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 [id number] Family : Order #: [id number] CLICK HERE TO VIEW EXAM ECHOCARDIOGRAM REPORT [...] by: Yogesh Marion M.D. on 02/13/2023 at 18:54NoOhioHealth Marion General HospitalCREATININEon [id number] [Mass/Vol]0.76 mg/dLNormal0.55-1.02The [facility] HospitalComment on above:Performed By: #### CBC #### [facility] [address] [place] [address] Dr. Carter ChangEGFR-AF GRENADIAN>60Normal>=60The [facility] HospitalComment on above:Performed By: #### CBC #### [facility] [address] [place], [place] [address] Dr. Carter ChangEGFR-NON AF GRENADIAN>60Normal>=60The [facility] HospitalComment on above:Performed By: #### CBC #### [facility] [address] [place], [place] [address] Dr. Raul PereiraMRI BRAIN WO W CONon [id number] BRAIN WO W CONEXAMINATION: MRI BRAIN WO W CON HISTORY: Altered mental status [...] with patient history. Electronically authenticated by: JESSICA WINKLER Date: 2023-02-12 12:37[facility] CAROTID ART BILon [id number] CAROTID ART BILEXAMINATION: US CAROTID ART ALEXUS HISTORY: Altered mental status COMPARISON: [...] >70 >225 >4.0 Electronically authenticated by: JESSICA WINKLER Date: 2023-02-12 14:03[facility] HospitalPLIANCE DRUG SCREENon [id number].NormalSamaritan Hospital on above:Performed By: #### CBC #### [facility] [address] [place] [address] Dr. Raul PereaBrown Memorial Hospital on above:Result Comment: TOXASSURE COMP DRUG ANALYSIS,UR Specimen Alert Note: Urinary creatinine is very low; ability to detect some drugs may be compromised; creatinine-normalized drug concentrations should be interpreted with caution. Suggest recollection. Test Result Flag Units Drug Present Amphetamine 7150 ng/mg creat Amphetamine is available as a schedule II prescription drug. Buprenorphine 17 ng/mg creat Norbuprenorphine 100 ng/mg creat Source of buprenorphine is a scheduled prescription medication. Norbuprenorphine is an expected metabolite of buprenorphine. Gabapentin PRESENT Cyclobenzaprine PRESENT Desmethylcyclobenzaprine PRESENT Desmethylcyclobenzaprine is an expected metabolite of cyclobenzaprine. Duloxetine PRESENT Test Result Flag Units Ref Range Creatinine 6 L mg/dL >=20 Declared Medications: Medication list was not provided. For clinical consultation, please call . Performed By: #### CBC #### [facility] [address] [place] [address] Dr. Raul Parekh URINEon [id number] URINEIsolate 1 Escherichia coli 15,000 cfu/mL of ORGANISM [...] <=0.12 S F Nitrofurantoin <=16 S F Trimethoprim/Sulfamethoxazole <=20 S [facility] HospitalComment on above:Performed By: #### URCX #### [facility] [address] [address] [address] Raul PereiraAMMONIAon [id number] (P) [Moles/Vol]13 umol/EErcaje53-38 The [facility] HospitalComment on above:Performed By: #### AMM ####[facility] [address] [address]Dr.Yilan PriestC AUTO DIFFon [id number] #0.1 103/ulNormal0.0-0.1The [facility] HospitalComment on above:Performed By: #### CBC #### [facility] [address] [address] [address] Raul PereiraBasophils/100 WBC (Bld)0.6 %Normal0.2-2.0[facility] Comment on above:Performed By: #### CBC #### [facility] [address] [place] [address] Dr. Raul Baker #0.1 103/ulNormal0.0-0.7The [facility] HospitalComment on above: Performed By: #### CBC #### [facility] [address] [place] [address] Dr. Raul Alcantarosinophils/100 WBC (Bld)1.7 %Normal0.9-7.0The [facility] Comment on above:Performed By: #### CBC #### [facility] [address] [place] [address] Dr. Raul Alcantarrythrocyte distribution width (RBC) [Ratio]25.9 %Critically high 11.0-15.0The [facility] HospitalComment on above:Result Comment: 2+ anisoPerformed By: #### CBC #### [facility] [address] [place] [address] Dr. Raul PereiraHematocrit (Bld) [Volume fraction]42.4 %Ftgyeo30.0-48.0The [facility] HospitalComment on above:Performed By: #### CBC #### [facility] [address] [place] [address] Dr. Raul PereiraHemoglobin (Bld) [Mass/Vol]13.1 g/kAZcjsvd36.0-16.0The [facility] HospitalComment on above:Performed By: #### CBC #### [facility] [address] [place] [address] Dr. Raul Carrington #0.02 10e3/ulNormal0.00-0.03The [facility] HospitalComment on above:Performed By: #### CBC #### [facility] [address] [place] [address] Dr. Raul Carrington %0.2 %Normal0.0-0.5The [facility] HospitalComment on above: Performed By: #### CBC #### [facility] [address] [place] [address] Dr. Raul Bautista #2.0 103/ulNormal1.2-3.8The [facility] HospitalComment on above:Performed By: #### CBC #### [facility] [address] [place] [address] Dr. Raul Copehocytes/100 WBC (Bld)24.8 %Gbatnh51.5-60.0The [facility] HospitalComment on above:Performed By: #### CBC #### [facility] [address] [place] [address] Dr. Raul LeyvaUAL DIFF REQNONormalThe [facility] HospitalComment on above: Performed By: #### CBC #### [facility] [address] [place] [address] Dr. Raul Champion (RBC) [Entitic mass]25.3 pgCritically low26.7-34.0The [facility] HospitalComment on above:Performed By: #### CBC #### [facility] [address] [place] [address] Dr. Raul Champion (RBC) [Mass/Vol]30.9 g/mVKrgthd52.9-35.2The [facility] HospitalComment on above:Performed By: #### CBC #### [facility] [address] [address] [address] Raul ChampionV (RBC) [Entitic vol]82.0 tTEspfjb36.0-99.0The [facility] Hospitalment on above:Performed By: #### CBC #### [facility] [address] [place] [address] Dr. Raul Villanueva #0.7 103/ulNormal0.3-0.8The [facility] HospitalComment on above:Performed By: #### CBC #### [facility] [address] [place] [address] Dr. Raul Alfordocytes/100 WBC (Bld)8.8 %Normal1.7-12.0The [facility] Comment on above:Performed By: #### CBC #### [facility] [address] [place] [address] Dr. Raul Sparks #5.2 103/ulNormal1.4-6.5The [facility] HospitalComment on above:Performed By: #### CBC #### [facility] [address] [place] [address] Dr. Raul Becerrilutrophils/100 WBC (Bld)63.9 %Daauwp82.0-75.0The [facility] HospitalComment on above:Performed By: #### CBC #### [facility] [address] [place] [address] Dr. Raul Lanelet mean volume (Bld) [Entitic vol]9.2 fLCritically low 9.5-13.5The [facility] HospitalComment on above:Performed By: #### CBC #### [facility] [address] [place] [address] Dr. Raul PereiraPLT334 103/ujFyxeqt767-523Bre [facility] HospitalComment on above: Performed By: #### CBC #### [facility] [address] [place] [address] Dr. Raul PereiraRBC5.17 106/ulNormal4.20-5.40The [facility] HospitalComment on above:Performed By: #### CBC #### [facility] [address] [address] [address] Raul PereiraWBC8.2 103/ulNormal4.0-11.0The [facility] on above: Performed By: #### CBC #### [facility] [address] [address] [address] Raul Berrios - LIPID PROFILEon [id number]-HDL RATIO NORMSEE BELOW NormalThe [facility] HospitalComkalkaska memorial health center on above:Result Comment: 3.3 - 4.4 LOW RISK 4.4 - 7.1 AVERAGE RISK 7.1 - 11.0 MODERATE RISK >11.0 HIGH RISKPerformed By: #### DATLIPI ####[facility] [address] [address]. Yilan ChangCholesterol [Mass/Vol]178 mg/dLNormal<=200The [facility] on above:Performed By: #### DATLIPI ####[facility] [address] [address]Dr. Yilan ChangCholesterol in HDL [Mass/Vol]73 mg/dLCritically hakb18-05Bur [facility] HospitalComkalkaska memorial [facility] center on above:Performed By: #### DATLIPI ####[facility] [address] [address]Dr. Yilan ChangCholesterol in LDL [Mass/Vol]72.0 mg/dL NormalThe [facility] on above:Performed By: #### DATLIPI ####[facility] [address] [address]Dr. Yilan ChangCholesterol.total/Cholesterol in HDL [Mass ratio]2.4 {ratio}NormalThe [facility] HospitalComkalkaska memorial health center on above:Performed By: #### DATLIPI ####[facility] [address] [place], [place] [address]Dr. Yilan ChangHDL NORMAL> or = 60 mg/dl - LOW CARDIOVASCULAR RISK <40 mg/dl - HIGH CARDIOVASCULAR RISKNormalThe [facility] HospitalComment on above:Performed By: #### DATLIPI ####[facility] [address] [address]Dr. Raul ChangLDL CALC NORMALSEE BELOWMorrow County HospitalComment on above: Result Comment: <100 mg/dl OPTIMAL 100 - 129 mg/dl NEAR OR ABOVE OPTIMAL 130 - 159 mg/dl BORDERLINE HIGH 160 - 189 mg/dl HIGH >190 mg/dl VERY HIGHPerformed By: #### DATLIPI ####[facility] [address] [address]Dr. aRul ChangTriglyceride [Mass/Vol]165 mg/dLCritically high<=150[facility] HospitalComment on above:Performed By: #### DATLIPI ####[facility] [address] [address]Dr. Aranzapetr ChangVLDL CALC33.0 mg/dLNoOhioHealth Marion General HospitalComment on above:Performed By: #### DATLIPI ####[facility] [address] [address]DrLeann PereiraDRUG SCREEN RAPID (URINE)on [id number] NEGATIVESelect Medical [facility] ShawComkalkaska memorial health center on above:Performed By: #### CBC #### [facility] [address] [address] [address] Raul PereiraBARNegativeNormalNEGATIVESelect Medical [facility] ShawComkalkaska memorial health center on above: Performed By: #### CBC #### [facility] [address] [address] [address] Raul ManningPPositiveAbnormalNEGATIVESelect Medical [facility] ShawComment on above: Performed By: #### CBC #### [facility] [address] [address] [address] Raul PereiraBZONegativeNormalNEGATIVESelect Medical [facility] ShawComment on above: Performed By: #### CBC #### [facility] [address] [address] [address] Raul NunezCNegativeNormalNEGATIVESelect [facility] ShawComment on above: Performed By: #### CBC #### [facility] [address] [place] [address] Dr. [address]ell[address] Elizabeth Boardman HospitalComment on above: Result Comment: AMP (Amphetamine): 500ng/mL, BAR (Barbituates): 200 ng/mL, BZO (Benzodiazepines): 150 ng/mL, BUP (Buprenorphine): 10 ng/mL, RADHA (Cocaine): 150 ng/mL, mAMP (Methamphetamine): 500 ng/mL, MTD (Methadone): 200 ng/mL, OPI (Opiates): 100 ng/mL, OXY (Oxycodone): 100 ng/mL, PCP (Phencyclidine): 25 ng/mL, PPX (Propoxyphene): 300 ng/mL, THC (Cannabinoids): 50 ng/mL, TCA (Trycyclic Antidepressants): 300 ng/mLPerformed By: #### CBC #### [facility] [address] [place] [address] Dr. Raul PereiraDRUG CUT HEADERDRUG CLASS TEST SYSTEM CUT-OFF CONCENTRATIONS ARE FOLLOWS:NormalSelect Medical [facility] ShawComkalkaska memorial health center on above:Performed By: #### CBC #### [facility] [address] [place] [address] Dr. Raul PereiramAMPNegativeNormalNEGATIVESelect Medical [facility] ShawComkalkaska memorial health center on above: Performed By: #### CBC #### [facility] [address] [place] [address] Dr. Raul PereiraMTDNegativeNormalNEGATIVESelect Medical [facility] ShawComkalkaska memorial health center on above: Performed By: #### CBC #### [facility] [address] [place] [address] Dr. Raul AlvarengaINegativeNormalNEGATIVESelect [facility] ShawComkalkaska memorial [facility] center on above: Performed By: #### CBC #### [facility] [address] [place] [address] Dr. Raul PereiraOXYNegativeNormalNEGATIVESamaritan Hospital on above: Performed By: #### CBC #### [facility] [address] [place] [address] Dr. Raul PereiraPCPNegativeNormalNEGATIVESelect [facility] ShawComment on above: Performed By: #### CBC #### [facility] [address] [address] [address] Raul PereiraPPXNegativeNormalNEGATIVEThe [facility] HospitalComkalkaska memorial health center on above: Performed By: #### CBC #### [facility] [address] [address] [address] Raul PereiraTCAPositiveAbnormalNEGATIVESelect [facility] ShawComment on above: Performed By: #### CBC #### [facility] [address] [address] [address] Raul PereiraTHCNegativeNormalNEGATIVESelect Medical [facility] ShawComment on above: Performed By: #### CBC #### [facility] [address] [address] [address] Raul Tucker THYROXINE INDEX T7on 28-95-5623URI1.89Mhmltf3.30-4.50The [facility] HospitalComkalkaska memorial health center on above:Performed By: #### CVDTBH #### [facility] [address] [address] [address] Raul PereiraT3U39.0 %Ugqgkc24.0-39.0The [facility] HospitalComment on above: Performed By: #### CVDTBH #### [facility] [address] [address] [address] Raul PereiraT4 [Mass/Vol]7.40 ug/dLNormal4.80-13.90[facility] Comment on above:Performed By: #### CVDTBH #### [facility] [address] [address] [address] Raul PereiraGLYCOHEMOGLOBIN A1Con 72-96-8624FIR RECOMMENDATIONSEE BELOWNormal The [facility] HospitalComkalkaska memorial health center on above:Result Comment: ADA RECOMMENDED LIMIT 4.0 - 6.0 ADA THERAPEUTIC TARGET < 7.0 ACTION SUGGESTED > 7.0Performed By: #### DATA1C ####[facility] [address] [address]Dr. Raul PereiraGlucose [Mass/Vol]108 mg/dLNoalThCorey Hospital Comment on above:Performed By: #### DATA1C ####[facility] [address] [address]Dr. Raul PereiraHbA1c (Bld) [Mass fraction] 5.4 %Normal4.5-6.2The [facility] HospitalComment on above:Performed By: #### DATA1C ####[facility] [address] [address]Dr. Raul MckinneyNon 43-34-9271Wpye [Mass/Vol]225.0 ug/dLCritically high 50.0-170.0The [facility] HospitalComment on above:Performed By: #### CVDTBH #### [facility] [address] [place] [address] Dr. Raul Cook 14(COMP METB)on 86-45-9395Ocyldzp [Mass/Vol]3.8 g/dLNormal 3.4-5.0The [facility] HospitalComment on above:Performed By: #### CVDTBH #### [facility] [address] [place] [address] Dr. Raul PereiraAlbumin/Globulin [Mass ratio]1.2 {ratio}NormalThe [facility] HospitalComment on above:Performed By: #### CVDTBH #### [facility] [address] [place] [address] Dr. Raul Osborn [Catalytic activity/Vol]77 U/AOttoge87-588Icx [facility] HospitalComment on above:Performed By: #### CVDTBH #### [facility] [address] [address] [address] Raul Gomez [Catalytic activity/Vol]19 U/MVdwfrz56-35Iyj [facility] HospitalComment on above:Performed By: #### CVDTBH #### [facility] [address] [place] [address] Dr. Raul Wilde gap [Moles/Vol]12.9 mmol/LNormalThe [facility] Comment on above:Performed By: #### CVDTBH #### [facility] [address] [place] [address] Dr. Raul PereiraAST [Catalytic activity/Vol]17 U/XFawgfv37-66Rdk [facility] HospitalComment on above:Performed By: #### CVDTBH #### [facility] [address] [address] [address] Raul PereiraBilirubin [Mass/Vol]0.3 mg/dLNormal0.2-1.0The [facility] Comment on above:Performed By: #### CVDTBH #### [facility] [address] [address] [address] Raul PereiraCalcium [Mass/Vol]8.9 mg/dLNormal8.5-10.1The [facility] Comment on above:Performed By: #### CVDTBH #### [facility] [address] [place] [address] Dr. Raul PereiraChloride [Moles/Vol]101 mmol/KXfkqap75-751Xta [facility] Comment on above:Performed By: #### CVDTBH #### [facility] [address] [place] [address] Dr. Raul PereiraCO2 [Moles/Vol]28.5 mmol/DJcypdg17.0-32.0The [facility] Comment on above:Performed By: #### CVDTBH #### [facility] [address] [place] [address] Dr. Raul PereiraCreatinine [Mass/Vol]0.59 mg/dLNormal0.55-1.02The [facility] HospitalComment on above:Performed By: #### CVDTBH #### [facility] [address] [place] [address] Dr. Carter ChangEGFR-AF GRENADIAN>60Normal>=60The [facility] HospitalComment on above:Performed By: #### CVDTBH #### [facility] [address] [place] [address] Dr. Raul AlcantarGFR-NON AF GRENADIAN>60Normal>=60The [facility] HospitalComment on above:Performed By: #### CVDTBH #### [facility] [address] [address] [address] Raul PereiraGlobulin (S) [Mass/Vol]3.1 g/dLNormProMedica Fostoria Community HospitalComment on above:Performed By: #### CVDTBH #### [facility] [address] [place] [address] Dr. Raul PereiraGlucose [Mass/Vol]84 mg/pDKazisd00-720UjqSelect Medical [facility] Comment on above:Performed By: #### CVDTBH #### [facility] [address] [place] [address] Dr. Raul PereiraPotassium [Moles/Vol]4.4 mmol/LNormal3.5-5.1The [facility] Comment on above:Performed By: #### CVDTBH #### [facility] [address] [place] [address] Dr. Raul PereiraProtein [Mass/Vol]6.9 g/dLNormal6.4-8.2The [facility] Comment on above:Performed By: #### CVDTBH #### [facility] [address] [place] [address] Dr. Raul PereiraSodium [Moles/Vol]138 mmol/IFogwfo548-273CntSelect Medical [facility] Clinic [facility] Comment on above:Performed By: #### CVDTBH #### [facility] [address] [place] [address] Dr. Raul PereiraUrea nitrogen [Mass/Vol]11.0 mg/dLNormal7.0-18.0The [facility] HospitalComment on above:Performed By: #### CVDTBH #### [facility] [address] [place] [address] Dr. Raul PereiraUrea nitrogen/Creatinine [Mass ratio]18.6 mg/mgNoOhioHealth Marion General HospitalComment on above:Performed By: #### CVDTBH #### [facility] [address] [place] [address] Dr. Raul Cortes 44-81-2110ACK4.354 uIU/mLNormal0.358-3.740[facility] ShawComment on above:Performed By: #### CVDTBH #### [facility] [address] [address] [address] Raul Saleh RANDOM W/MICROSCOPICon [id number] SEENNormalNONE SEENSelect Medical [facility] Clinic [facility] ShawComkalkaska memorial [facility] center on above:Performed By: #### CBC #### [facility] [address] [address] [address] Raul PereiraBilirubin Ql (U)NegativeNormalNEGATIVESelect Medical [facility] Clinic [facility] Comment on above:Performed By: #### CBC #### [facility] [address] [address] [address] Raul PereiraCASTNONE SEENNormalNONE SEENSelect Medical [facility] Clinic [facility] ShawComment on above:Performed By: #### CBC #### [facility] [address] [address] [address] Raul PereiraClarity (U)CLEARNormalCLEARSelect Medical [facility] Clinic [facility] ShawComment on above: Performed By: #### CBC #### [facility] [address] [address] [address] Raul PereiraColor (U)YELLOWNormalYELLOWSelect Medical [facility] Clinic [facility] ShawComment on above: Performed By: #### CBC #### [facility] [address] [address] [address] Raul PereiraCrystals LM Nom (Urine sed)NONE SEENNormalNONE SEENSelect Medical [facility] Clinic [facility] ShawComkalkaska memorial [facility] center on above:Performed By: #### CBC #### [facility] [address] [address] [address] Raul Alcantarpithelial cells LM Ql (Urine sed)NONE SEENNormalNONE SEEN /RARE [facility] ShawComkalk[facility] on above:Performed By: #### CBC #### [facility] [address] [address] [address] Raul PereiraGlucose Ql (U)NegativeNormalNEGATIVESelect Medical [facility] Clinic [facility] ShawComkalkaska [facility] center on above:Performed By: #### CBC #### [facility] [address] [address] [address] Raul PereiraHemoglobin Ql (U)NegativeNormalNEGATIVESelect Medical [facility] Clinic [facility] Comment on above:Performed By: #### CBC #### [facility] [address] [address] [address] Raul Rice Ql (U)NegativeNormalNEGATIVESelect Medical [facility] Clinic [facility] ShawComment on above:Performed By: #### CBC #### [facility] [address] [address] [address] Raul PereiraLEUKOCYTESNegativeNormalNEGATIVEThe [facility] HospitalComment on above:Performed By: #### CBC #### [facility] [address] [address] [address] Raul DuncanCOUSNONLenin SEENNormalNONE SEENSelect Medical [facility] Clinic [facility] ShawComment on above:Performed By: #### CBC #### [facility] [address] [address] [address] Raul Ashleytrite Ql (U)NegativeNormalNEGATIVESelect Medical [facility] Clinic [facility] ShawComment on above:Performed By: #### CBC #### [facility] [address] [address] [address] Raul PereirapH (U)5.5 [pH]Normal5-9The [facility] HospitalComment on above: Performed By: #### CBC #### [facility] [address] [address] [address] Raul PereiraRBCNONE SEENAbnormal0-2The [facility] HospitalComment on above: Performed By: #### CBC #### [facility] [address] [address] [address] Raul PereiraSPEC GRAVITY1.822Rtcfvyof0.005-<=1.025[facility] Comment on above:Performed By: #### CBC #### [facility] [address] [address] [address] Raul Saleh PROTEINNegativeNormalNEGATIVE/ TRACEThe [facility] Comment on above:Performed By: #### CBC #### [facility] [address] [address] [address] Raul Rogerbilinogen Qn (U)0.2 {Farrukh'U}/dLNormal0.2 - 1.0[facility] ShawComment on above:Performed By: #### CBC #### [facility] [address] [place] [address] Dr. Raul MoniqueBCKENNETH SEENNormalNONE SEENSelect Medical [facility] Clinic [facility] ShawComment on above: Performed By: #### CBC #### [facility] [address] [place] [address] Dr. Raul PereiraVITAMIN D 25 OHon 35-46-2774LZS D 25-OH40.8 ng/mLNormalSelect Medical Cleveland Clinic [facility] ShawComment on above:Performed By: #### CVDTBH #### [facility] [address] [place] [address] Dr. Raul Emery D RANGESSEE BELOWMorrow County HospitalComment on above: Result Comment: <20 ng/mL Vit D deficient 20 - <30 ng/mL Vit D insufficient 30 - 100 ng/mL Vit D sufficient >100 ng/mL Potential ToxicityPerformed By: #### CVDTBH #### [facility] [address] [place] [address] Dr. Raul PereiraVC VENOUS REFLUX ALEXUS [facility] 22-03-8921AX VENOUS REFLUX ALEXUS T Patient: RHETT MEJIA Exam Date: 01/30/2023 : 1960 Gender:F Ordering : DR NAPOLEON LOPEZ . Admission #: [id number] Family : Order #: [id number] CLICK HERE TO VIEW EXAM RADIOLOGY REPORT [...] thrombus. Compressibility: Normal. Flow: Deep venous reflux. Toxicology Supervisor:Mid/medial lower leg 4.3 mm with 0.8s reflux. [...] great saphenous vein along with dilated, incompetent felt finisher veins and numerous branch saphenous varicosities. 2. 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 Proximal closer with endovenous laser ablation may be beneficial followed by treatment with microfoam chemical ablation. Incompetent lower leg felt finisher vein which may contribute to patient's reflux; laser ablation is recommended. Dilated, incompetent branch saphenous varicosities which would benefit from microfoam chemical ablation. 3. Consultation for endovenous ablation is recommended. Dictated by: Jessica Winkler M.D. on 01/31/2023 at 09:46 Approved by: Jessica Winkler M.D. on 01/31/2023 at 09:51NormalThCorey HospitalCB AUTO DIFFon [id number] #0.0 103/ulNormal0.0-0.1The [facility] HospitalComment on above:Performed By: #### CBC #### [facility] [address] [address] [address] Raul PereiraBasophils/100 WBC (Bld)0.5 %Normal0.2-2.0[facility] Comment on above:Performed By: #### CBC #### [facility] [address] [address] [address] Raul Baker #0.1 103/ulNormal0.0-0.7The [facility] HospitalComment on above: Performed By: #### CBC #### [facility] [address] [address] [address] Raul Alcantarosinophils/100 WBC (Bld)1.7 %Normal0.9-7.0The [facility] Comment on above:Performed By: #### CBC #### [facility] [address] [address] [address] Raul Alcantarrythrocyte distribution width (RBC) [Ratio]18.4 %Critically high 11.0-15.0The [facility] HospitalComment on above:Performed By: #### CBC #### [facility] [address] [address] [address] Raul PereiraHematocrit (Bld) [Volume fraction]33.1 %Critically low36.0-48.0 The [facility] HospitalComment on above:Performed By: #### CBC #### [facility] [address] [place] [address] Dr. Raul PereiraHemoglobin (Bld) [Mass/Vol]10.4 g/dLCritically low12.0-16.0The [facility] HospitalComment on above:Performed By: #### CBC #### [facility] [address] [place] [address] Dr. Raul Carrington #0.03 10e3/ulNormal0.00-0.03The [facility] HospitalComment on above:Performed By: #### CBC #### [facility] [address] [place] [address] Dr. Raul Carrington %0.4 %Normal0.0-0.5The [facility] HospitalComment on above: Performed By: #### CBC #### [facility] [address] [place] [address] Dr. Raul Bautista #1.9 103/ulNormal1.2-3.8The [facility] HospitalComkalkaska memorial health center on above:Performed By: #### CBC #### [facility] [address] [place] [address] Dr. Raul Sofiamphocytes/100 WBC (Bld)25.2 %Nrcugg87.5-60.0The [facility] HospitalComment on above:Performed By: #### CBC #### [facility] [address] [place] [address] Dr. Raul LeyvaUAL DIFF REQNONormalThe [facility] HospitalComment on above: Performed By: #### CBC #### [facility] [address] [place] [address] Dr. Raul Mack (RBC) [Entitic mass]24.1 pgCritically low26.7-34.0The Kai HospitalComment on above:Performed By: #### CBC #### [facility] [address] [place] [address] Dr. Raul Champion (RBC) [Mass/Vol]31.4 g/mYFfbglm25.9-35.2The [facility] HospitalComment on above:Performed By: #### CBC #### [facility] [address] [place] [address] Dr. Raul Champion (RBC) [Entitic vol]76.6 fLCritically low81.0-99.0The [facility] HospitalComment on above:Performed By: #### CBC #### [facility] [address] [place] [address] Dr. Raul Villanueva #0.8 103/ulNormal0.3-0.8The [facility] HospitalComment on above:Performed By: #### CBC #### [facility] [address] [place] [address] Dr. Raul Alfordocytes/100 WBC (Bld)10.7 %Normal1.7-12.0The [facility] Comment on above:Performed By: #### CBC #### [facility] [address] [place] [address] Dr. Raul Sparks #4.7 103/ulNormal1.4-6.5The [facility] HospitalComment on above:Performed By: #### CBC #### [facility] [address] [place] [address] Dr. Raul Becerrilutrophils/100 WBC (Bld)61.5 %Rhcaad46.0-75.0The [facility] HospitalComment on above:Performed By: #### CBC #### [facility] [address] [place] [address] Dr. Raul Lanelet mean volume (Bld) [Entitic vol]8.6 fLCritically low 9.5-13.5The [facility] HospitalComment on above:Performed By: #### CBC #### [facility] [address] [place] [address] Dr. Raul Kong461 103/ulCritically mhkd998-518Ykd [facility] HospitalComment on above:Performed By: #### CBC #### [facility] [address] [address] [address] Raul PereiraRBC4.32 106/ulNormal4.20-5.40The [facility] HospitalComkalkaska memorial [facility] center on above:Performed By: #### CBC #### [facility] [address] [address] [address] Raul PereiraWBC7.6 103/ulNormal4.0-11.0The [facility] HospitalComkalkaska memorial health center on above: Performed By: #### CBC #### [facility] [address] [address] [address] Raul Tucker THYROXINE INDEX T7on 59-30-2437RIG0.86Myjemr9.30-4.50The [facility] on above:Performed By: #### T7, CMP, TSH, LIPID ####[facility] [address] [address]Dr. Raul PereiraT3U35.0 %Oaylxv85.0-39.0The [facility] on above: Performed By: #### T7, CMP, TSH, LIPID ####[facility] [address] [address]Dr. Raul PereiraT4 [Mass/Vol]6.00 ug/dLNormal 4.80-13.90The [facility] on above:Performed By: #### T7, CMP, TSH, LIPID ####[facility] [address] [address]Dr. Raul PereiraGLYCOHEMOGLOBIN A1Con [id number] RECOMMENDATIONSEE BELOW NormalThe [facility] on above:Result Comment: ADA RECOMMENDED LIMIT 4.0 - 6.0 ADA THERAPEUTIC TARGET < 7.0 ACTION SUGGESTED > 7.0Performed By: #### CVDTBH #### [facility] [address] [address] [address] Raul PereiraGlucose [Mass/Vol]108 mg/dLNormalThe [facility] HospitalComment on above:Performed By: #### CVDTBH #### [facility] [address] [address] [address] Raul PereiraHbA1c (Bld) [Mass fraction]5.4 %Normal4.5-6.2The [facility] HospitalComment on above:Performed By: #### CVDTBH #### [facility] [address] [address] [address] Raul Stone AND TIBCon 01-13-2023% SATURATION3.5 %NormalThe [facility] HospitalComment on above:Performed By: #### FETIBC, B12FOL, VITAD ####[facility] [address] [address]Dr. Raul PereiraIron [Mass/Vol]18.0 ug/dLCritically low50.0-170.0The [facility] HospitalComkalkaska memorial [facility] center on above:Performed By: #### FETIBC, B12FOL, VITAD ####[facility] [address] [address]Dr. Raul PereiraTIBC DIRECT 513.0 ug/dLCritically tsfv520.0-450.0The [facility] Hospitalment on above: Performed By: #### FETIBC, B12FOL, VITAD ####[facility] [address] [address]Dr. Raul ChangLIPID PROFILEon 01-13-2023 CHOL-HDL RATIO NORMSEE BELOWNoOhioHealth Marion General HospitalComment on above:Result Comment: 3.3 - 4.4 LOW RISK 4.4 - 7.1 AVERAGE RISK 7.1 - 11.0 MODERATE RISK >11.0 HIGH RISKPerformed By: #### T7, CMP, TSH, LIPID ####[facility] [address] [address]Dr. Raul ChangCholesterol [Mass/Vol]190 mg/dLNormal<=200The [facility] on above:Performed By: #### T7, CMP, TSH, LIPID ####[facility] [address] [address]Dr. Yilan ChangCholesterol in HDL [Mass/Vol]71 mg/dL Critically cmxt11-34KzlSelect Medical Cleveland Clinic [facility] ShawComment on above:Performed By: #### T7, CMP, TSH, LIPID ####[facility] [address] [address]Dr. Yilan ChangCholesterol in LDL [Mass/Vol]104.6 mg/dLMorrow County HospitalComment on above:Performed By: #### T7, CMP, TSH, LIPID ####[facility] [address] [address]Dr. Yilan ChangCholesterol.total/Cholesterol in HDL [Mass ratio]2.7 {ratio}NormalThe [facility] HospitalComkalkaska memorial health center on above:Performed By: #### T7, CMP, TSH, LIPID ####[facility] [address] [address]Dr. Yilan ChangHDL NORMAL> or = 60 mg/dl - LOW CARDIOVASCULAR RISK <40 mg/dl - HIGH CARDIOVASCULAR RISKNoOhioHealth Marion General HospitalComkalkaska memorial health center on above:Performed By: #### T7, CMP, TSH, LIPID ####[facility] [address] [address]Dr. Yilan ChangLDL CALC NORMALSEE BELOWMorrow County HospitalComkalkaska memorial health center on above:Result Comment: <100 mg/dl OPTIMAL 100 - 129 mg/dl NEAR OR ABOVE OPTIMAL 130 - 159 mg/dl BORDERLINE HIGH 160 - 189 mg/dl HIGH >190 mg/dl VERY HIGHPerformed By: #### T7, CMP, TSH, LIPID ####[facility] [address] [address]Dr. Yilan ChangTriglyceride [Mass/Vol]72 mg/dLNormal<=150[facility] on above:Performed By: #### T7, CMP, TSH, LIPID ####[facility] [address] [address]Dr. Yilan ChangVLDL CALC14.4 mg/dLMorrow County HospitalComment on above:Performed By: #### T7, CMP, TSH, LIPID ####[facility] [address] [address]Dr. Raul ChangPROF 14(COMP METB)on 68-75-0752Cgdxymr [Mass/Vol]3.5 g/dLNormal3.4-5.0The [facility] HospitalComment on above:Performed By: #### T7, CMP, TSH, LIPID ####[facility] [address] [address]Dr. Raul Pereira Albumin/Globulin [Mass ratio]1.1 {ratio}NormalThe [facility] HospitalComment on above:Performed By: #### T7, CMP, TSH, LIPID ####[facility] [address] [place], [place] [address]Dr. Yilan ChangALP [Catalytic activity/Vol]92 U/EWryzop25-017Oqq [facility] HospitalComment on above:Performed By: #### T7, CMP, TSH, LIPID ####[facility] [address] [place], [place] [address]Dr. Yilan ChangALT [Catalytic activity/Vol]17 U/L Biyenk46-98Jho [facility] HospitalComment on above:Performed By: #### T7, CMP, TSH, LIPID ####[facility] [address] [place], [place] [address]Dr. Raul ChangAnion gap [Moles/Vol]10.0 mmol/LNormalThe [facility] Comment on above:Performed By: #### T7, CMP, TSH, LIPID ####[facility] [address] [place], [place] [address]Dr. Yilan ChangAST [Catalytic activity/Vol]17 U/FBfkchb74-24Fhc [facility] HospitalComment on above:Performed By: #### T7, CMP, TSH, LIPID ####[facility] [address] [place], [place] [address]Dr. Yipetr ChangBilirubin [Mass/Vol]0.2 mg/dLNormal 0.2-1.0The [facility] HospitalComment on above:Performed By: #### T7, CMP, TSH, LIPID ####[facility] [address] StreetBellevue, [place] [address]Uf. Yilan ChangCalcium [Mass/Vol]8.8 mg/dLNormal8.5-10.1The [facility] Hospitalment on above:Performed By: #### T7, CMP, TSH, LIPID ####[facility] [address] [address]Dr. Yilan Pereira Chloride [Moles/Vol]101 mmol/SBblvrk60-855Nbh [facility] HospitalComment on above: Performed By: #### T7, CMP, TSH, LIPID ####[facility] [address] [address]Dr. Yilan ChangCO2 [Moles/Vol]29.4 mmol/LNormal 21.0-32.0The [facility] HospitalComment on above:Performed By: #### T7, CMP, TSH, LIPID ####[facility] [address] [place], [place] [address]Dr. Yilan ChangCreatinine [Mass/Vol]0.50 mg/dLCritically low0.55-1.02The [facility] on above:Performed By: #### T7, CMP, TSH, LIPID ####[facility] [address] [place], [place] [address]Dr. Yilan ChangEGFR-AF GRENADIAN>60Normal>=60The [facility] on above: Performed By: #### T7, CMP, TSH, LIPID ####[facility] [address] [address]Dr. Yilan ChangEGFR-NON AF GRENADIAN>60Normal>=60 The [facility] on above:Performed By: #### T7, CMP, TSH, LIPID ####[facility] [address] [address]Dr. Yilan ChangGlobulin (S) [Mass/Vol]3.2 g/dLNormalThe [facility] on above:Performed By: #### T7, CMP, TSH, LIPID ####[facility] [address] [address]Dr. Yilan ChangGlucose [Mass/Vol]88 mg/zLIbypsh50-186Lte [facility] HospitalComment on above:Performed By: #### T7, CMP, TSH, LIPID ####[facility] [address] [address]Dr. Yilan ChangPotassium [Moles/Vol]4.4 mmol/LNormal 3.5-5.1The [facility] HospitalComment on above:Performed By: #### T7, CMP, TSH, LIPID ####[facility] [address] [address]Dr. Yilan ChangProtein [Mass/Vol]6.7 g/dLNormal6.4-8.2The [facility] Comment on above:Performed By: #### T7, CMP, TSH, LIPID ####[facility] [address] [place], [place] [address]Dr. Yilan ChangSodium [Moles/Vol]136 mmol/SEzdnsp569-303Uql [facility] HospitalComment on above: Performed By: #### T7, CMP, TSH, LIPID ####[facility] [address] [place], [place] [address]Dr. Yilan ChangUrea nitrogen [Mass/Vol]12.0 mg/dLNormal7.0-18.0The [facility] HospitalComment on above:Performed By: #### T7, CMP, TSH, LIPID ####[facility] [address] [address]Dr. Yilan ChangUrea nitrogen/Creatinine [Mass ratio]24.0 mg/mgNormal The [facility] HospitalComment on above:Performed By: #### T7, CMP, TSH, LIPID ####[facility] [address] [address]Dr. Yilan ChangTSHon 04-28-5042VTN6.623 uIU/mLNormal0.358-3.740The [facility] Comment on above:Performed By: #### T7, CMP, TSH, LIPID ####[facility] [address] [place], [place] [address]Dr. Yilan ChangVIT B12 AND FOLATEon 18-58-5108Snejgqear (Vitamin B12) [Mass/Vol]872.0 pg/mLNormal 193.0-986.0The [facility] HospitalComment on above:Performed By: #### FETIBC, B12FOL, VITAD ####[facility] [address] [address]Dr. Raul PereiraQtsvgDVZOPD31.20 ng/mLNormal8.60-58.90[facility] Comment on above:Performed By: #### FETIBC, B12FOL, VITAD ####[facility] [address] [address]Dr. Raul PereiraVITAMIN D 25 OHon 75-68-0018NCE D 25-OH40.6 ng/mLNormalThe [facility] HospitalComment on above: Performed By: #### FETIBC, B12FOL, VITAD ####[facility] [address] [address]Dr. Raul PereiraVIT D RANGESSEE BELOWNormal The [facility] HospitalComment on above:Result Comment: <20 ng/mL Vit D deficient 20 - <30 ng/mL Vit D insufficient 30 - 100 ng/mL Vit D sufficient >100 ng/mL Potential ToxicityPerformed By: #### FETIBC, B12FOL, VITAD ####[facility] [address] [place], [place] [address]DrLeann PriestC AUTO DIFF on 54-43-8022KAYV #0.1 103/ulNormal0.0-0.1[facility] ShawComment on above: Performed By: #### CVDTBH #### [facility] [address] [place] [address] Dr. Raul Negretesophils/100 WBC (Bld)0.6 %Normal0.2-2.0The [facility] Comment on above:Performed By: #### CVDTBH #### [facility] [address] [place] [address] Dr. Raul Baker #0.1 103/ulNormal0.0-0.7The [facility] HospitalComment on above: Performed By: #### CVDTBH #### [facility] [address] [place] [address] Dr. Raul Alcantarosinophils/100 WBC (Bld)1.3 %Normal0.9-7.0The [facility] Comment on above:Performed By: #### CVDTBH #### [facility] [address] [place] [address] Dr. Raul Alcantarrythrocyte distribution width (RBC) [Ratio]18.4 %Critically high 11.0-15.0The [facility] HospitalComment on above:Performed By: #### CVDTBH #### [facility] [address] [place] [address] Dr. Raul PereiraHematocrit (Bld) [Volume fraction]37.8 %Lqcepm27.0-48.0The [facility] HospitalComment on above:Performed By: #### CVDTBH #### [facility] [address] [place] [address] Dr. Raul PereiraHemoglobin (Bld) [Mass/Vol]11.6 g/dLCritically low12.0-16.0The [facility] HospitalComment on above:Performed By: #### CVDTBH #### [facility] [address] [place] [address] Dr. Raul Carrington #0.02 10e3/ulNormal0.00-0.03The [facility] HospitalComment on above:Performed By: #### CVDTBH #### [facility] [address] [place] [address] Dr. Raul Carrington %0.3 %Normal0.0-0.5The [facility] HospitalComment on above: Performed By: #### CVDTBH #### [facility] [address] [place] [address] Dr. Raul Bautista #1.7 103/ulNormal1.2-3.8The [facility] HospitalComment on above:Performed By: #### CVDTBH #### [facility] [address] [place] [address] Dr. Raul Sofiamphocytes/100 WBC (Bld)21.0 %Nzzpba90.5-60.0The [facility] HospitalComment on above:Performed By: #### CVDTBH #### [facility] [address] [place] [address] Dr. Raul Strauss DIFF REQNONormalThe [facility] HospitalComment on above: Performed By: #### CVDTBH #### [facility] [address] [place] [address] Dr. Raul Champion (RBC) [Entitic mass]24.1 pgCritically low26.7-34.0The [facility] HospitalComment on above:Performed By: #### CVDTBH #### [facility] [address] [place] [address] Dr. Raul Champion (RBC) [Mass/Vol]30.7 g/nXTtldua55.9-35.2The [facility] HospitalComment on above:Performed By: #### CVDTBH #### [facility] [address] [place] [address] Dr. Raul Rodriguez (RBC) [Entitic vol]78.6 fLCritically low81.0-99.0The [facility] HospitalComment on above:Performed By: #### CVDTBH #### [facility] [address] [place] [address] Dr. Raul Villanueva #0.6 103/ulNormal0.3-0.8The [facility] HospitalComment on above:Performed By: #### CVDTBH #### [facility] [address] [place] [address] Dr. Raul Alfordocytes/100 WBC (Bld)7.5 %Normal1.7-12.0The [facility] Comment on above:Performed By: #### CVDTBH #### [facility] [address] [place] [address] Dr. Raul Sparks #5.4 103/ulNormal1.4-6.5The [facility] HospitalComment on above:Performed By: #### CVDTBH #### [facility] [address] [place] [address] DrLeann Jeanophils/100 WBC (Bld)69.3 %Uruktf28.0-75.0The [facility] HospitalComment on above:Performed By: #### CVDTBH #### [facility] [address] [place] [address] Dr. Raul Lanelet mean volume (Bld) [Entitic vol]9.0 fLCritically low 9.5-13.5The [facility] HospitalComment on above:Performed By: #### CVDTBH #### [facility] [address] [place] [address] Dr. Raul PereiraPLT516 103/ulCritically vxyq107-634Nck [facility] HospitalComment on above:Performed By: #### CVDTBH #### [facility] [address] [place] [address] Dr. Raul PereiraRBC4.81 106/ulNormal4.20-5.40The [facility] HospitalComment on above:Performed By: #### CVDTBH #### [facility] [address] [place] [address] Dr. Raul PereiraWBC7.8 103/ulNormal4.0-11.0The [facility] Hospitalment on above: Performed By: #### CVDTBH #### [facility] [address] [place] [address] Dr. Raul Parekh BLOODon 78-40-5713Luqfhgmmuuc examination of blood, cultureCulture Observations: NO GROWTH AT 5 DAYS.NormalThe [facility] HospitalComment on above:Performed By: #### [id number] #### [facility] [address] [place] [address] Dr. Raul PereiraMicroscopic examination of blood, cultureCulture Observations: NO GROWTH AT 5 DAYS.NormalThe [facility] HospitalComment on above:Performed By: #### [id number] ####[facility] [address] [address]Dr. Raul PereiraPROF 14(COMP METB)on 90-40-0831Lkkqgdn [Mass/Vol]3.7 g/dL Normal3.4-5.0The [facility] HospitalComment on above:Performed By: #### CBC #### [facility] [address] [address] [address] Raul PereiraAlbumin/Globulin [Mass ratio]0.9 {ratio}NormalThe [facility] Community HospitalComment on above:Performed By: #### CBC #### [facility] [address] [address] [address] Raul VitaleP [Catalytic activity/Vol]105 U/BVqfwnk42-052Wfc [facility] HospitalComment on above:Performed By: #### CBC #### [facility] [address] [address] [address] Raul VitaleT [Catalytic activity/Vol]18 U/ILamgvc34-80Znb [facility] HospitalComment on above:Performed By: #### CBC #### [facility] [address] [place] [address] Dr. Raul Kingon gap [Moles/Vol]10.8 mmol/LNormalThe [facility] Comment on above:Performed By: #### CBC #### [facility] [address] [address] [address] Raul PereiraAST [Catalytic activity/Vol]21 U/KJsqgza30-38Thw [facility] Hospitalment on above:Performed By: #### CBC #### [facility] [address] [address] [address] Raul PereiraBilirubin [Mass/Vol]0.3 mg/dLNormal0.2-1.0The [facility] Comment on above:Performed By: #### CBC #### [facility] [address] [address] [address] Raul PereiraCalcium [Mass/Vol]9.1 mg/dLNormal8.5-10.1The [facility] Comment on above:Performed By: #### CBC #### [facility] [address] [address] [address] Raul PereiraChloride [Moles/Vol]100 mmol/WSwhjcl48-469Qth [facility] Comment on above:Performed By: #### CBC #### [facility] [address] [address] [address] Raul PereiraCO2 [Moles/Vol]30.8 mmol/SPurpkd76.0-32.0The [facility] Comment on above:Performed By: #### CBC #### [facility] [address] [address] [address] Raul PereiraCreatinine [Mass/Vol]0.58 mg/dLNormal0.55-1.02The [facility] HospitalComment on above:Performed By: #### CBC #### [facility] [address] [address] [address] Carter ChangEGFR-AF GRENADIAN>60Normal>=60The [facility] HospitalComment on above:Performed By: #### CBC #### [facility] [address] [place] [address] Dr. Raul AlcantarGFR-NON AF GRENADIAN>60Normal>=60The [facility] HospitalComment on above:Performed By: #### CBC #### [facility] [address] [address] [address] Raul PereiraGlobulin (S) [Mass/Vol]4.1 g/dLNormalThe [facility] HospitalComment on above:Performed By: #### CBC #### [facility] [address] [place] [address] Dr. Raul PereiraGlucose [Mass/Vol]86 mg/dKAkasdx74-403KquSelect Medical [facility] Comment on above:Performed By: #### CBC #### [facility] [address] [address] [address] Raul PereiraPotassium [Moles/Vol]4.6 mmol/LNormal3.5-5.1The [facility] Comment on above:Performed By: #### CBC #### [facility] [address] [address] [address] Raul PereiraProtein [Mass/Vol]7.8 g/dLNormal6.4-8.2The [facility] Comment on above:Performed By: #### CBC #### [facility] [address] [address] [address] Raul PereiraSodium [Moles/Vol]137 mmol/WEbvjco451-892VwvSelect Medical [facility] Comment on above:Performed By: #### CBC #### [facility] [address] [address] [address] Raul PereiraUrea nitrogen [Mass/Vol]9.0 mg/dLNormal7.0-18.0[facility], [facility] ShawComment on above:Performed By: #### CBC #### [facility] [address] [address] [address] Raul [place] nitrogen/Creatinine [Mass ratio]15.5 mg/mgNoOhioHealth Marion General HospitalComment on above:Performed By: #### CBC #### [facility] [address] [address] [address] Raul Ram PREMA DOP LEG RTon 58-85-3740AU PREMA DOP LEG RTEXAMINATION: US PREMA DOP LEG RT HISTORY: Cellulitis [...] edema and swelling. Electronically authenticated by: JESSICA WINKLER Date: 2023-01-10 10:43[facility] HospitalCovid-19 PCR (CVDTBH)on 28-61-6663FOPE-CoV-2 (COVID-19) RNA IMELDA+probe Ql (Unsp spec)Not detectedNormalNOT DETECTEDThe [facility] Comment on above:Result Comment: This test is not yet approved or cleared by the [place] FDA. When there are no FDA-approved or cleared tests available, and other criteria are met, FDA can make tests available under an emergency access mechanism called an Emergency Use Authorization (EUA). The EUA for this test is supported by the [employer] of Health and Human Service's (HHS's) declaration that circumstances exist to justify the emergency use of in vitro diagnostics for the detection and/or diagnosis of the virus that causes COVID- 19. This EUA will remain in effect (meaning [...] of clinical signs and symptoms consistent with SARS-CoV-2.Performed By: #### CVDTBH #### [facility] [address] [place] [address] Dr. Raul PereiraCALCIUMon 61-46-4527Tbkabvu [Mass/Vol]9.7 mg/dLNormal8.5-10.1The [facility] HospitalComment on above:Performed By: #### CVDTBH #### [facility] [address] [place] [address] Dr. Raul PereiraCREATININEon 95-76-9151Zstylplwmt [Mass/Vol]0.53 mg/dLCritically low0.55-1.02The [facility] Hospitalment on above:Performed By: #### CBC #### [facility] [address] [place] [address] Dr. Raul AlcantarGFR-AF GRENADIAN>60Normal>=60The [facility] HospitalComment on above:Performed By: #### CBC #### [facility] [address] [place] [address] Dr. Raul AlcantarGFR-NON AF GRENADIAN>60Normal>=60The [facility] on above:Performed By: #### CBC #### [facility] [address] [place] [address] Dr. Raul Krishnamurthy Visiton 22-19-8753Ojmbdk-up [id number] Rhett Mejia 1960 F Date Provider Department Center 08/27/2022 Nella-MICAELA GUPTA [facility] [[email or web address]] SURG Second Fl No family history on file Level of Service:22170 [place] POSTOP FOLLOW UP VISIT RELATED TO ORIGINAL PX Reason for Visit and Comments: Post-op [483] - Rhett is here today for a post op visit, s/p 08/16/[facility] CHOLENormalUniversAshtabula County Medical CenterHISTOLOGY - TISSUE EXAMon [id number] AP CASE REPORTNormalUniversAshtabula County Medical CenterComment on above:Order Comment: Pre-op diagnosis:Calculus of gallbladder without cholecystitis without obstruction [K80.20]Result Comment: Surgical Pathology Case: [id number] Authorizing Provider: Micaela Gupta MD Collected: 08/16/2022 0842 Ordering Location: [facility] [[email or web address]] Main Operating Room Received: 08/16/2022 1001 Pathologist: Maricruz Warren MD Specimen: Gallbladder, GALLBLADDERPerformed By: #### [id number] ####[facility] ([facility])[address] [facility] [facility], [place] [address]TQZ AP CLINICAL INFORMATIONNormal [facility] CenterComment on above:Order Comment: Pre-op diagnosis:Calculus of gallbladder without cholecystitis without obstruction [K 80.20]Result Comment: Pre-op diagnosis: Calculus of gallbladder without cholecystitis without obstruction [K80.20] Performed By: #### [id number] ####[facility] ([facility])[address] [place], [place] [address]ATM AP GROSS DESCRIPTIONA. Gallbladder.NormalUnCleveland ClinicComment on above:Order Comment: Pre-op diagnosis:Calculus of gallbladder without cholecystitis without obstruction [K80.20]Result Comment: Received in formalin , labeled Rhett Rachell Hilary, GALLBLADDER . The specimen consists of a 9.0 x 4.0 x 3.0 cm cholecystectomy specimen with a closed cystic duct that measures 0.3 cm in length and 0.3 cm in diameter. Serosal surface is red-quevedo smooth and glistening with a finely roughened hepatic bed surface. The specimen is filled with dark quevedo viscous bile. The mucosal surface isred-quevedo flattened with multiple yellow speckles dispersed on the mucosal surface consistent with cholesterolosis. There are multiple black irregular gallstones measuring 2.5 x 1.8 x 0.5 cm and ranging from 0.1 to 0.7 cm in greatest dimension. The wall measures 0.1 to 0.2 cm in maximum thickness. Soccer Referee sections submitted as follows: Cassette 1: Cystic duct resection margin and neck Cassette 2: Body and fundus Ankit Koroma, Pathologists' AssistantPerformed By: #### [id number] ####[facility] ([facility])[address] [place] [facility], [place] [address]DBB AP MICROSCOPIC DESCRIPTIONMicroscopic examination performedNoMiami Valley HospitalComkalkaska memorial health center on above:Order Comment: Pre-op diagnosis:Calculus of gallbladder without cholecystitis without obstruction [K80.20]Performed By: #### [id number] ####[facility] ([facility])[address] [place] [facility], [place] [address]WXU AP REPORT FINAL DIAGNOSIS NARRATIVENoMiami Valley HospitalComkalkaska memorial health center on above:Order Comment: Pre-op diagnosis:Calculus of gallbladder without cholecystitis without obstruction [K80.20]Result Comment: Gallbladder, cholecystectomy: - Cholelithiasis and cholesterolosis. Performed By: #### [id number] ####[facility] ([facility])[address] [place], [place] [address]PFot [id number] Attestation signed by Micaela Gupta MD at 08/16/2022 7:34 AM Attending Physician Statement I have discussed the case, including pertinent history and exam findings with Dr. Del Angel, surgical scrub technician and have personally seen the patient. I agree with the assessment, plan and orders as documented. [phone] pager [phone] phone [facility] General Surgery HISTORY & PHYSICAL Chief [...] History: Diagnosis Date Anxiety Arthritis Chronic bronchitis ([facility]) Depression DVT (deep venous thrombosis) ([facility]) Gall bladder disease GERD (gastroesophageal [...] lactated Ringer's infusion, 30 mL/hr, intravenous, Continuous, Ausitn Grier MD lidocaine (Xylocaine) 20 mg/mL (2 [...] Lab Results Component Value (more content not included)...German HospitalNURSNOTEon [id number]. Pain minimal. DC criteria met. IV dc'd and patient getting dressed. 1155 Stable for discharge.German HospitalNREHABILITATION HOSPITAL OF SOUTHERN NEW MEXICONOTED instructions reviewed with patient and Granddaughter, allowed time for questions, copy given.German HospitalNREHABILITATION HOSPITAL OF SOUTHERN NEW MEXICONOTEReport rec'd and care assumed. No assessment changes. Pain minimal.German HospitalNURSNOTE0920 Recovery called.German HospitalOPNOTE [id number], LAPAROSCOPIC Operative Note Date: 08/16/2022 Location: [facility] [[email or web address]] OR Name: Rhett Mejia, : 1960, Diagnosis Pre-op Diagnosis * Calculus of gallbladder without cholecystitis without obstruction [K80.20] * History of gastric bypass [Z98.84] Post-op Diagnosis * Calculus of gallbladder without cholecystitis without obstruction [K80.20] * History of gastric bypass [Z98.84] Procedures CHOLECYSTECTOMY, LAPAROSCOPIC 17040 - [place] LAPS SURG CHOLECYSTECTOMY W/CHOLANGIOGRAPHY Surgeons * Micaela Gupta - Primary * Robyn Del Angel Procedure Summary Anesthesia: General ASA: III Estimated Blood Loss: 10 mL Total IV Fluids: 1000 mL Drains: * None in log * Specimens ID Source Type Tests Collected By Collected At Frozen? Priority Lab ID A Gallbladder Tissue HISTOLOGY - TISSUE EXAM Micaela Gupta MD 08/16/22 0842 No [id number] Description: GALLBLADDER Staff: Welder Pipe Making: Zeny De La Cruz RN Scrub Person: [...] PACU - hemodynamically stable. Condition: stable Normal [facility] Medical CenterPOCT GLUCOSE METER UNSOLICITED RESULTSon 34-05-6487Crkhlvt [Mass/Vol]88 mg/lUCgrsjh09-027JyyfeowiwlCleveland ClinicComment on above:Result Comment: epawlowPerformed By: #### [id number] #### [facility] ([facility]) [address] [place], [place] [address]OQJP SARS-COV-2 PCRon [id number] SARS-COV-2 ANTIGENNegative NormalNegativeUnCleveland ClinicComment on above:Result Comment: ID NOW COVID-19 assay performed on the ID NOW [...] of Waiver, Certificate of Compliance, or Certificate ofAccreditation.Performed By: #### [id number] ####[facility] ([facility])[address] [place], [place] [address]Xgibaw Onlyon 08-14-2022 Orders [id number] Rhett Mejia Rachell 1960 F Date Provider Department Center 08/14/2022 [id number], HISTORICAL [facility] C No family history on fileNormalUniversity of Detar Healthcare System1000006on [id number] after [place] Must have a non emergency services ambulance driver to take you home and someone to stay for 24 hours after surgery. No jewelry. Hold the meds we spoke about: NSAIDS Take the meds we spoke about w/a sip of water DOS: GAPAPENTIN, NEXIUM, INHALER, CYMBALTA Bring insurance card and ID. LABS AND COVID TO BE DONE IN [place].[facility] CBC AUTO DIFFon [id number] #0.0 103/ulNormal0.0-0.1The [facility] Comment on above:Performed By: #### CBC #### [facility] [address] [address] [address] Raul PereiraBasophils/100 WBC (Bld)0.4 %Normal0.2-2.0The [facility] Comment on above:Performed By: #### CBC #### [facility] [address] [address] [address] Raul Baker #0.1 103/ulNormal0.0-0.7The [facility] HospitalComment on above: Performed By: #### CBC #### [facility] [address] [address] [address] Raul Alcantarosinophils/100 WBC (Bld)1.2 %Normal0.9-7.0The [facility] Comment on above:Performed By: #### CBC #### [facility] [address] [address] [address] Raul Alcantarrythrocyte distribution width (RBC) [Ratio]18.6 %Critically high 11.0-15.0The [facility] HospitalComment on above:Performed By: #### CBC #### [facility] [address] [address] [address] Raul PereiraHematocrit (Bld) [Volume fraction]39.1 %Jtmpgh56.0-48.0The [facility] HospitalComment on above:Performed By: #### CBC #### [facility] [address] [address] [address] Raul PereiraHemoglobin (Bld) [Mass/Vol]12.5 g/uMWqjpsd03.0-16.0[facility], [facility] ShawComment on above:Performed By: #### CBC #### [facility] [address] [address] [address] Raul Carrington #0.03 10e3/ulNormal0.00-0.03The [facility] HospitalComment on above:Performed By: #### CBC #### [facility] [address] [place] [address] Dr. Raul Carrington %0.4 %Normal0.0-0.5The [facility] HospitalComkalkaska memorial health center on above: Performed By: #### CBC #### [facility] [address] [place] [address] Dr. Raul Bautista #2.0 103/ulNormal1.2-3.8The [facility] HospitalComment on above:Performed By: #### CBC #### [facility] [address] [place] [address] Dr. Raul Copehocytes/100 WBC (Bld)27.2 %Hndwvn41.5-60.0The [facility] HospitalComkalkaska memorial health center on above:Performed By: #### CBC #### [facility] [address] [place] [address] Dr. Raul Strauss DIFF REQNONormalThe [facility] HospitalComment on above: Performed By: #### CBC #### [facility] [address] [place] [address] Dr. Raul Mcak (RBC) [Entitic mass]27.2 qrRabifg38.7-34.0The [facility] on above:Performed By: #### CBC #### [facility] [address] [place] [address] Dr. Raul Champion (RBC) [Mass/Vol]32.0 g/yBBncuyi00.9-35.2The [facility] HospitalComment on above:Performed By: #### CBC #### [facility] [address] [place] [address] Dr. Raul Champion (RBC) [Entitic vol]85.2 vZZorngv86.0-99.0The [facility] HospitalComment on above:Performed By: #### CBC #### [facility] [address] [place] [address] Dr. Raul Villanueva #0.7 103/ulNormal0.3-0.8The [facility] HospitalComment on above:Performed By: #### CBC #### [facility] [address] [place] [address] Dr. Raul Alfordocytes/100 WBC (Bld)9.3 %Normal1.7-12.0The [facility] Comment on above:Performed By: #### CBC #### [facility] [address] [place] [address] Dr. Raul Sparks #4.4 103/ulNormal1.4-6.5The [facility] HospitalComment on above:Performed By: #### CBC #### [facility] [address] [place] [address] Dr. Raul Becerrilutrophils/100 WBC (Bld)61.5 %Ndjpvp58.0-75.0The [facility] HospitalComment on above:Performed By: #### CBC #### [facility] [address] [place] [address] Dr. Raul Lanelet mean volume (Bld) [Entitic vol]8.7 fLCritically low 9.5-13.5The [facility] HospitalComment on above:Performed By: #### CBC #### [facility] [address] [place] [address] Dr. Raul PereiraPLT387 103/pvAgqcqc474-138Gwu [facility] HospitalComment on above: Performed By: #### CBC #### [facility] [address] [place] [address] Dr. Raul PereiraRBC4.59 106/ulNormal4.20-5.40The [facility] HospitalComment on above:Performed By: #### CBC #### [facility] [address] [place] [address] Dr. Raul PereiraWBC7.2 103/ulNormal4.0-11.0The [facility] HospitalComment on above: Performed By: #### CBC #### [facility] [address] [place] [address] Dr. Raul Bahtt-19 PCR (CVDTBH)on 71-71-6155PHMI-CoV-2 (COVID-19) RNA IMELDA+probe Ql (Unsp spec)Not detectedNormalNOT DETECTEDThe [facility] Comment on above:Result Comment: This test is not yet approved or cleared by the [place] FDA. When there are no FDA-approved or cleared tests available, and other criteria are met, FDA can make tests available under an emergency access mechanism called an Emergency Use Authorization (EUA). The EUA for this test is supported by the [employer] of Health and Human Service's (HHS's) declaration that circumstances exist to justify the emergency use of in vitro diagnostics for the detection and/or diagnosis of the virus that causes COVID- 19. This EUA will remain in effect (meaning [...] of clinical signs and symptoms consistent with SARS-CoV-2.Performed By: #### CVDTBH #### [facility] [address] [place] [address] Dr. Raul PereiraPROF CHEM 8 (BAS METB)on 91-42-4277Jxeie gap [Moles/Vol]11.5 mmol/LNormalSelect Medical [facility] Clinic Rehabilitation Hospital, Edwin ShawComment on above:Performed By: #### CBC #### [facility] [address] [place] [address] Dr. Raul PereiraCalcium [Mass/Vol]9.5 mg/dLNormal8.5-10.1[facility] Comment on above:Performed By: #### CBC #### [facility] [address] [place] [address] Dr. Raul PereiraChloride [Moles/Vol]101 mmol/LAxdude22-074Sir [facility] Comment on above:Performed By: #### CBC #### [facility] [address] [place] [address] Dr. Raul PereiraCO2 [Moles/Vol]29.6 mmol/LNrzirc22.0-32.0The [facility] Comment on above:Performed By: #### CBC #### [facility] [address] [address] [address] Raul PereiraCreatinine [Mass/Vol]0.65 mg/dLNormal0.55-1.02[facility], [facility] ShawComment on above:Performed By: #### CBC #### [facility] [address] [address] [address] Raul AlcantarGFR-AF GRENADIAN>60Normal>=60The [facility] HospitalComment on above:Performed By: #### CBC #### [facility] [address] [address] [address] Raul AlcantarGFR-NON AF GRENADIAN>60Normal>=60The [facility] HospitalComment on above:Performed By: #### CBC #### [facility] [address] [address] [address] Raul PereiraGlucose [Mass/Vol]104 mg/tCTytoys41-702Fyp [facility] Comment on above:Performed By: #### CBC #### [facility] [address] [address] [address] Raul PereiraPotassium [Moles/Vol]4.1 mmol/LNormal3.5-5.1The [facility] Comment on above:Performed By: #### CBC #### [facility] [address] [address] [address] Raul PereiraSodium [Moles/Vol]138 mmol/YDmvfxd673-455Gvq [facility] Comment on above:Performed By: #### CBC #### [facility] [address] [address] [address] Raul PereiraUrea nitrogen [Mass/Vol]11.0 mg/dLNormal7.0-18.0The [facility] HospitalComment on above:Performed By: #### CBC #### [facility] [address] [address] [address] Raul PereiraUrea nitrogen/Creatinine [Mass ratio]16.9 mg/mgNormalThe [facility] HospitalComment on above:Performed By: #### CBC #### [facility] [address] [place], [place] [address] Dr. Raul Krishnamurthy Visiton 38-55-4004Lucfnf-up [id number] Rhett Mejia 1960 F Date Provider Department Center 08/06/2022 454-MICAELA GUPTA [facility] [[email or web address]] SURG Second Fl No family history on file Level of Service:06173 [place] OFFICE/OUTPATIENT ESTABLISHED LOW MDM 20-29 MIN Reason for Visit and Comments: Consult [484] - Rhett is here for a gallbladder consult. Rhett also c/o swelling in right leg with pain in calf.NormalUnCleveland ClinicPROTIME-INRon 09-97-9110UGX IN PPP BY COAGULATION ASSAY0.89Low0.90-1.10 [facility] CenterComment on above:Result Comment: ACCCP RECOMMENDED INR FOR WARFARIN THERAPY CONDITION INR PROPHYLAXIS OF VENOUS THROMBOSIS 2-3 (HIGH-RISK SURGERY) TREATMENT OF VENOUS THROMBOSIS 2-3 TREATMENT OF PULMONARY EMBOLISM 2-3 PREVENTION OF SYSTEMIC EMBOLISM: 2-3 ACUTE MYOCARDIAL INFARCTION TISSUE HEART VALVES VALVULAR HEART DISEASE ATRIAL FIBRILLATION RECURRENT SYSTEMIC EMBOLISM MECHANICAL HEART VALVE 2.5-3.5 FROM: ORAL ANTICOAGULANTS. MECHANISM OF ACTION, CLINICAL EFFECTIVENESS, AND OPTIMAL THERAPEUTIC RANGE. CHEST 1995;108:231S-246S.Performed By: #### [id number] #### [facility] ([facility]) [address] [place], [place] [address]KUWFQUORSRL TIME (PT) IN PPP BY COAGULATION ASSAY12.1 SecondsLow 12.3-14.8UnCleveland ClinicComment on above:Performed By: #### [id number] #### [facility] ([place]) [address] [place], [place] [address]ID ABD/PELVIS WO CONon 88-65-9694IA ABD/PELVIS WO CON EXAMINATION: CT ABD/PELVIS WO [...] the femoral heads. Electronically authenticated by: JESSICA WINKLER Date: 2022-07-24 17:[address] [place], [place] [address]NM HEPATOBILIARY SCAN W EFon 35-07-8143CO HEPATOBILIARY SCAN W EFEXAMINATION: NM HEPATOBILIARY SCAN W EF HISTORY: Right [...] Electronically authenticated by: MEAGHAN SKINNER Date: 2022-07-18 10:22[facility] DIFFon [id number] #0.0 103/ulNormal0.0-0.1The [facility] HospitalComment on above:Performed By: #### CBC #### [facility] [address] [place] [address] Dr. Raul PereiraBasophils/100 WBC (Bld)0.5 %Normal0.2-2.0[facility] Comment on above:Performed By: #### CBC #### [facility] [address] [address] [address] Raul Baker #0.1 103/ulNormal0.0-0.7The [facility] HospitalComment on above: Performed By: #### CBC #### [facility] [address] [address] [address] Raul Alcantarosinophils/100 WBC (Bld)0.9 %Normal0.9-7.0[facility] Comment on above:Performed By: #### CBC #### [facility] [address] [address] [address] Raul Alcantarrythrocyte distribution width (RBC) [Ratio]20.2 %Critically high 11.0-15.0The [facility] HospitalComment on above:Performed By: #### CBC #### [facility] [address] [place] [address] Dr. Raul PereiraHematocrit (Bld) [Volume fraction]41.1 %Gatrvo19.0-48.0The [facility] HospitalComment on above:Performed By: #### CBC #### [facility] [address] [place] [address] Dr. Raul PereiraHemoglobin (Bld) [Mass/Vol]13.2 g/qMEqrlmo11.0-16.0The [facility] HospitalComment on above:Performed By: #### CBC #### [facility] [address] [place] [address] Dr. Raul Carrington #0.05 10e3/ulCritically high0.00-0.03The [facility] Comment on above:Performed By: #### CBC #### [facility] [address] [place] [address] Dr. Raul Carrington %0.6 %Critically high0.0-0.5The [facility] HospitalComment on above:Performed By: #### CBC #### [facility] [address] [place] [address] Dr. Raul Bautista #1.4 103/ulNormal1.2-3.8The [facility] HospitalComment on above:Performed By: #### CBC #### [facility] [address] [place] [address] Dr. Raul Copehocytes/100 WBC (Bld)17.3 %Critically low20.5-60.0The [facility] HospitalComment on above:Performed By: #### CBC #### [facility] [address] [place] [address] Dr. Raul LeyvaUAL DIFF REQNONormalThe [facility] HospitalComment on above: Performed By: #### CBC #### [facility] [address] [place] [address] Dr. Raul Mack (RBC) [Entitic mass]27.3 tdHpncrw44.7-34.0The [facility] HospitalComment on above:Performed By: #### CBC #### [facility] [address] [place] [address] Dr. Raul Champion (RBC) [Mass/Vol]32.1 g/hLNlneco78.9-35.2The [facility] HospitalComment on above:Performed By: #### CBC #### [facility] [address] [place] [address] Dr. Raul ChampionV (RBC) [Entitic vol]84.9 xAJabnsh58.0-99.0The [facility] HospitalComment on above:Performed By: #### CBC #### [facility] [address] [place] [address] Dr. Raul Villanueva #0.8 103/ulNormal0.3-0.8The [facility] HospitalComment on above:Performed By: #### CBC #### [facility] [address] [place] [address] Dr. Raul Alfordocytes/100 WBC (Bld)10.0 %Normal1.7-12.0The [facility] Comment on above:Performed By: #### CBC #### [facility] [address] [place] [address] Dr. Raul Sparks #5.8 103/ulNormal1.4-6.5The [facility] HospitalComment on above:Performed By: #### CBC #### [facility] [address] [place] [address] Dr. Raul Becerrilutrophils/100 WBC (Bld)70.7 %Jetxvb29.0-75.0The [facility] HospitalComment on above:Performed By: #### CBC #### [facility] [address] [place] [address] Dr. Raul Lanelet mean volume (Bld) [Entitic vol]9.1 fLCritically low 9.5-13.5The [facility] HospitalComment on above:Performed By: #### CBC #### [facility] [address] [place] [address] Dr. Raul BenavidesT358 103/asVfehup787-670Jka [facility] HospitalComment on above: Performed By: #### CBC #### [facility] [address] [place] [address] Dr. Raul PereiraRBC4.84 106/ulNormal4.20-5.40The [facility] HospitalComment on above:Performed By: #### CBC #### [facility] [address] [place] [address] Dr. Raul PereiraWBC8.1 103/ulNormal4.0-11.0The [facility] HospitalComment on above: Performed By: #### CBC #### [facility] [address] [place] [address] Dr. Raul PereiraLIPASEon 76-22-8588Craara [Catalytic activity/Vol]47.0 U/L Critically low73.0-393.0The [facility] HospitalComment on above:Performed By: #### CBC #### [facility] [address] [place] [address] Dr. Raul PereiraPROF 14(COMP METB)on 81-65-6253Nsmwqpy [Mass/Vol]3.6 g/dLNormal 3.4-5.0The [facility] HospitalComment on above:Performed By: #### CBC #### [facility] [address] [place] [address] Dr. Raul PereiraAlbumin/Globulin [Mass ratio]1.0 {ratio}NormalThe [facility] Community HospitalComment on above:Performed By: #### CBC #### [facility] [address] [place] [address] Dr. Raul Osborn [Catalytic activity/Vol]88 U/MFowyxo23-303Vcj [facility] HospitalComment on above:Performed By: #### CBC #### [facility] [address] [place] [address] Dr. Raul Gomez [Catalytic activity/Vol]16 U/LUoeoad23-30Qvf [facility] HospitalComment on above:Performed By: #### CBC #### [facility] [address] [place] [address] Dr. Raul Wilde gap [Moles/Vol]13.2 mmol/LNormalThe [facility] on above:Performed By: #### CBC #### [facility] [address] [place] [address] Dr. Raul PereiraAST [Catalytic activity/Vol]15 U/HUttkuo59-49Bfz [facility] HospitalComment on above:Performed By: #### CBC #### [facility] [address] [address] [address] Raul PereiraBilirubin [Mass/Vol]0.2 mg/dLNormal0.2-1.0The [facility] Comment on above:Performed By: #### CBC #### [facility] [address] [place] [address] Dr. Raul PereiraCalcium [Mass/Vol]9.5 mg/dLNormal8.5-10.1The [facility] Comment on above:Performed By: #### CBC #### [facility] [address] [place] [address] Dr. Raul PereiraChloride [Moles/Vol]100 mmol/RJljxcy82-387Jwl [facility] Comment on above:Performed By: #### CBC #### [facility] [address] [place] [address] Dr. Raul PereiraCO2 [Moles/Vol]28.0 mmol/PDvtoab66.0-32.0The [facility] Comment on above:Performed By: #### CBC #### [facility] [address] [place] [address] Dr. Raul PereiraCreatinine [Mass/Vol]0.78 mg/dLNormal0.55-1.02The [facility] HospitalComment on above:Performed By: #### CBC #### [facility] [address] [place] [address] Dr. Raul AlcantarGFR-AF GRENADIAN>60Normal>=60The [facility] HospitalComment on above:Performed By: #### CBC #### [facility] [address] [place] [address] Dr. Raul AlcantarGFR-NON AF GRENADIAN>60Normal>=60The [facility] HospitalComment on above:Performed By: #### CBC #### [facility] [address] [place] [address] Dr. Raul PereiraGlobulin (S) [Mass/Vol]3.6 g/dLNormProMedica Fostoria Community HospitalComment on above:Performed By: #### CBC #### [facility] [address] [place] [address] Dr. Raul PereiraGlucose [Mass/Vol]86 mg/mDQirwyk96-414NntSelect Medical [facility] Comment on above:Performed By: #### CBC #### [facility] [address] [place] [address] Dr. Raul PereiraPotassium [Moles/Vol]4.2 mmol/LNormal3.5-5.1The [facility] Comment on above:Performed By: #### CBC #### [facility] [address] [place] [address] Dr. Raul PereiraProtein [Mass/Vol]7.2 g/dLNormal6.4-8.2[facility] Comment on above:Performed By: #### CBC #### [facility] [address] [place] [address] Dr. Raul PereiraSodium [Moles/Vol]137 mmol/HJibiof188-369VseSelect Medical [facility] Clinic [facility] Comment on above:Performed By: #### CBC #### [facility] [address] [place] [address] Dr. Raul PereiraUrea nitrogen [Mass/Vol]11.0 mg/dLNormal7.0-18.0[facility], [facility] ShawComment on above:Performed By: #### CBC #### [facility] [address] [place] [address] Dr. Raul PereiraUrea nitrogen/Creatinine [Mass ratio]14.1 mg/mgNormalThCorey HospitalComment on above:Performed By: #### CBC #### [facility] [address] [place] [address] Dr. Raul PereiraUS SINGLE QUAD RT UPPERon 33-08-7914TY SINGLE QUAD RT UPPEREXAM: US SINGLE QUAD RT UPPER 07/13/2022 COMPARISON [...] biliary ductal dilatation. Electronically authenticated by: MICAH RALPH Date: 2022-07-13 16:33NoOhioHealth Marion General HospitalCovid-19 PCR (CVDTB)on 38-96-1944YJVO-CoV-2 (COVID-19) RNA IMELDA+probe Ql (Unsp spec)Not detectedNormalNOT DETECTEDThe [facility] Comment on above:Result Comment: This test is not yet approved or cleared by the [place] FDA. When there are no FDA-approved or cleared tests available, and other criteria are met, FDA can make tests available under an emergency access mechanism called an Emergency Use Authorization (EUA). The EUA for this test is supported by the [place] of Health and Human Service's (HHS's) declaration that circumstances exist to justify the emergency use of in vitro diagnostics for the detection and/or diagnosis of the virus that causes COVID- 19. This EUA will remain in effect (meaning [...] of clinical signs and symptoms consistent with SARS-CoV-2.Performed By: #### CVDTBH #### [facility] [address] [place] [address] Dr. Carter ChangEndoscopy Reporton 34-26-3295Hsxiawugd ReportMR#: [id number] [facility] Pt. Name: Rhett Mejia Surgery Date: 02/24/2018 Room #: Z0 Date of : 1960 PROCEDURE NOTEATTENDING: Xin Beasley M.D.PROCEDURE PERFORMED: EGD.CHICKEN VACCINATOR: Dr. Noland.SEDATION:1. Versed 10 mg.2. Fentanyl 250 mcg.INDICATION FOR EXAMINATION: The patient has a history of weight loss andthere is also history of esophagitis in the past.INDICATION FOR THE PROCEDURE: The patient has a history of gastric bypassand there is a weight loss of15 pounds over the last few months. Thepatient [...] mouth into the esophagus. Esophageal mucosa showed nonobs tructingSchatzki ring at 36 cm from the incisors. [...] Avoid NSAIDs.3. We will proceed with a colonoscopy.Electronically Signed by:Xin Beasley M.D. 03/05/2018 11:22 A Xin Beasley M.D. I was present for the entire procedure from insertion of the scope untilit was withdrawn. Date Dict: 02/24/2018/09:53 Kiara/Ruddy Noland M.D.Date Trans: 02/24/2018 12:13 P/mmoDN_JN:[id number]: Napoleon Lopez M.D. [address] [facility] Kiara [facility] [address]BgltwqLdcKettering HealthEndoscopy ReportMR#: [id number] Dublin Methodist Hospital Pt. Name: Rhett Mejia Surgery Date: 02/24/2018 Room #: Z0 Date of : 1960 PROCEDURE NOTEATTENDING: Xin Beasley M.D.PROCEDURE PERFORMED: Colonoscopy and polypectomy.CHICKEN VACCINATOR: Ruddy Noland M.D.SEDATION: Versed 10 mg and fentanyl 250 mcg.EXTENT OF EXAMINATION: To the cecum.BOWEL PREPARATION: Fair.INDICATION FOR EXAM: The patient is a 58-year-old female. She hadcolonoscopy 5 years ago and 5 small polyps were removed and 1 was tub ularadenoma. The patient is here for a repeat [...] performed. Thisexamination was within normal limits. A well- lubricated adult colonoscopewas then inserted into the rectum [...] colonoscopy depending upon the results of the histopathology.Electronically Signed by:Xin Beasley M.D. 03/05/2018 11:22 A Xin Beasley M.D. I was present for the entire procedure from insertion ofthe scope untilit was withdrawn. Date Dict: 02/24/2018/09:57 Kiara/Ruddy Noland M.D.Date Trans: 02/24/2018 10:12 Kiara/Aditya_JN:[id number]: Napoleon Lopez M.D. [address] [facility] [address]VzpqioIhwHolzer Medical Center – Jackson GLUCOSE LABon 87-13-0623Xplqjkm mass conc87 mg/rQAgxwlw88-553Oeg [facility] Medical CenterComment on above:Performed By: #### [id number] ####[facility] Vital Signs Date TimeVital SignValuePerforming OhjsrcapdQgplcxio31-50-6880 12:04-0400Body gzwohv258.29 cmDochristiana Lopez MD Work Phone: [facility]08-12-2025 12:04-0400 Body mass index (BMI) [Ratio]24.9 kg/i6WrhygrsNapoleon Lopez MD Work Phone: [phone] [place], [place] [address]108-12-2025 12:04-0400 Body .86 kgNapoleon Lopez MD Work Phone: [phone] [place], [place] [address]NEGATED: Highlighted rowBMI (Body Mass Index)[facility] CtrNEGATED: Highlighted rowBody TemperatureGene [facility] NEGATED: Highlighted rowBody weightUniversity Hospitals St. [facility] Ctr NEGATED: Highlighted rowBP DiastolicGene [facility] NEGATED: Highlighted rowBP SystolicGene [facility] NEGATED: Highlighted rowHeightUniversity Hospitals St. John Medical Center CtrNEGATED: Highlighted rowPulse (Heart Rate)[facility] NEGATED: Highlighted rowPulse OximetryUniversity Hospitals St. John Medical Center Ctr NEGATED: Highlighted rowRespiratory RateUniversity Hospitals St. John Medical Center Ctr Encounters Encounter DateEncounter TypeCare ProviderFacilityStart: 06-60-4204cvvokohhdt Irene ChangFacility:[facility] Hospitaltart: 08-16-2025 End: 28-43-7582Piheqqq encounter procedureConor Moody MD-[facility] Work Phone: Start: 08-16-2025 End: 59-69-6938zmnqlaqafaPjzvhvx M Hoy MD Work Phone: [phone] [place] [address] Work Phone: Start: 07-19-2025 End: 30-10-4876hwhgtjsbwdKfjhmee M Hoy MD Work Phone: [phone] [place] [address] Work Phone: Start: 07-19-2025 End: 80-41-0239Oemhrhh encounter procedureConor Moody MD-[facility] Work Phone: Start: 07-19-2025 End: 70-71-0036Jyqtumt encounter procedureConor Moody MD-Denis Rosas Start: 07-19-2025 End: 38-29-0911fzucvdfoccMaxgjng M Hoy MD Work Phone: [facility] Work Phone: Start: 06-28-2025 End: 08-27-2868ythtfsxowyTufoqyy M Hoy MD Work Phone: [facility] Work Phone: Start: 06-28-2025 End: 23-27-5761Rshpmaf encounter procedureThomas Kiara Moody MD-[facility] Work Phone: Start: 06-16-2025 End: 00-00-5563Zraqattjp department patient visitNAPOLEON Meeks [facility]ertart: 10-25-2024 End: 76-28-9160dmhmiydfrjTqzqoxz Vytautas Giedraitis MDFacility:[facility] Start: 10-18-2024 End: 62-61-7168dtmtevwzgrAkfdeie Vytautas Giedraitis MDFacility:[facility] Start: 10-11-2024 End: 91-59-1948xdvbclotoyKaehfcp Vytautas Giedraitis MDFacility:[facility] Start: 09-27-2024 End: 27-53-4427erfoqsoboeIiysbej Vytautas Giedraitis MDFacility:[facility] Start: 09-06-2024 End: 93-76-8534zthzcajkivVlltvzi Vytautas Giedraitis MDFacility:[facility] Start: 08-16-2024 End: 58-82-0279ohofffwkiiCbelixq Vytautas Giedraitis MDFacility:[facility] Start: 08-02-2024 End: 73-18-4505dhenljftunSudncco Vytautas Giedraitis MDFacility:[facility] Start: 06-21-2024 End: 57-69-3928ryliujedigWbcuvrn Vytautas Giedraitis MDFacility:[facility] Start: 82-93-4932yxupxyrccgVA NAPOLEON HOY .Facility:S7Ybmer: 03-21-2023 End: 35-84-3351gsevywzgfeDHQXCUF HALKER .Facility:J3Zndce: 03-05-2023 End: 93-62-0889tjoavefvxgOZISYCLTMTKR LAKSHMIPATHY .Facility:G5Zwoph: 02-20-2023 End: 33-48-9530qcphxnhzdmFQ NAPOLEON HOY .Facility:N9Tbnfc: 02-18-2023 End: 09-37-6678wqcxhculrxQK JESSICA Raya KEVINERFacility:T1Cwxfr: 02-13-2023 End: 67-73-9361gzpnhpcxbfLI NAPOLEON HOY .Facility:O7Uybvm: 02-12-2023 End: 97-81-1502aftbgbtpfxUG NAPOLEON HOY .Facility:L2Goxdc: 52-27-2584Biooawlsp for general adult medical examination without abnormal findingsDR NAPOLEON HOY . [facility] Hospitaltart: 01-31-2023 End: 97-70-5472Uujtevllw for general adult medical examination without abnormal findingsDR NONE LISTED REQUESTFacility:L2Yhpey: 01-31-2023 End: 08-94-6330yauypjkrfyDZ NONE LISTED REQUESTFacility:L3Kvksq: 01-30-2023 End: 59-35-2725vrcjtsvwwvYA NAPOLEON HOY .Facility:K6Idjqs: 01-28-2023 End: 48-97-5959zlydpbjwfrSU BETHEL S LITTLE .Facility:G5Ahebg: 01-16-2023 End: 31-05-4861uijbhbnalfMO NAPOLEON HOY .Facility:R5Mifmd: 01-13-2023 End: 58-35-3907jecfpprkynFO NAPOLEON HOY .Facility:I6Tspor: 01-10-2023 End: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
== END 2025-09-09 12:41 | disposition home or self-care (01) ==
LOC: CARD 12:40
PROVIDERS: PCP Family Medicine; Visit Provider Nurse Practitioner Family
DX: J44.9 Chronic obstructive pulmonary disease, unspecified (principal)
CPT/HCPCS: 94618

== ENCOUNTER 2025-10-15 15:33 | Emergency (ER) | payer MEDICARE, OTHER, SELFPAY ==
--- OUTSIDE RECORDS SUMMARY | 2024-04-19 07:00 | XMS_ITS | Continuity of Care Document ---
Author Organization [facility] Address [address] [place] [address] Phone Care Team Providers Care Gatehouse Attendant Name Role Phone Aly Daly Unavailable Unavailable Procedures Procedure Date Office/Outpt E&M Established 25 Mins Apr Surgical Stockings Duomed Thigh High 20- 30 & 30-40 Duplex Scan-extrem Veins; Uni/ Office/Outpt E&M Established 25 Mins Sep Duplex Scan-extrem Veins; Uni/ Duplex Scan-extrem Veins; Uni/ Inj Scleros Solut; Mx Veins 1 3 Ultrason Guidan Needle Bx-rad 3 Duplex Scan-extrem Veins; Uni/ Varithena, Single Truncal Vein Duplex Scan-extrem Veins; Uni/ Endovenous Rf, 1st Vein Inj Sclerosing Solution; Sngl 3 Office/Oupt E&M New Pt 45 Mins Duplex Scan-extrem Veins; Comp Advance Directives Directive Yes / No Effective Date File Name Other Directive No 04/19/2024 N/A WARNING:The information contained in this section is historical and is provided for information only and does not constitute a legal document or any assurance that the information is still accurate. Please verify the information with the wan of the legal document before using it for clinical purposes. Encounters Encounter Description Practice Location Reason(s) For Visit Diagnoses Date Provider Providers Copied on Encounter Office/Outpt E&M Established 25 Mins [facility] MD YAO, [address] [place] [address] Dr Chao 1000SuBasil welch [place], [id number], [place] tel:[phone] [facility] Chronic venous hypertension (idiopathic) with other complications of right lower extremityLocalize d edemaLymphedema, not elsewhere classifiedVenous insufficiency (chronic) (peripheral) 0 4 Dye Daly. [address] [place], [place], [id number], [place]. tel:[phone] [facility] MD YAO, [address] [place] [address] Dr Chao 1000SuBasil welch [place], [id number], [place] tel:[phone] [facility] Chronic venous hypertension (idiopathic) with other complications of right lower extremity 0 4 Makenzie Abreu. [address] [place] [address], [id number], [place]. tel:[phone] Referring Provider: Lois Banegas MD, [address] [place] [address], [id number] . tel:[phone] Office/Outpt E&M Established 25 Mins [facility], [address] [place] [address] Dr Chao 1000SuBasil welch MD, [id number], [place] tel:[phone] [facility] Localized edemaVenous insufficiency (chronic) (peripheral)Chron ic venous hypertension (idiopathic) with other complications of right lower extremity 3 Dye Daly. [address] [facility], [facility] [address], [place], [place], [id number], [place]. tel:[phone] Referring Provider: Lois Banegas MD, [address] [place] [address], [id number] . tel:[phone] [facility], [address] [place] [address] Dr Chao 1000SuBasil welch [place], [id number], [place] tel:[phone] [facility] Chronic venous hypertension (idiopathic) with other complications of right lower extremity Sep- 3 Makenzie Abreu. [address] [place], [place], [id number], [place]. tel:[phone] Referring Provider: Lois Banegas MD, [id number] [place] [address], [address] . tel:[phone] [facility], [address] [place] [address] Dr Chao 1000Suite Basil Llamas MD, [id number], tel:[phone] [facility] Encounter for follow-up examination after completed treatment for conditions other than malignant neChronic venous hypertension (idiopathic) with other complications of right lower extremity Aug- 3 Makenzie Abreu. [address] [place], [place], [id number], [place]. tel:[phone] Referring Provider: Lois Banegas MD, [address] [place] [address], [id number] . tel:[phone] [place] [facility], [address] [place] [address] Dr Chao [address]Suite Basil Llamas [place], [id number], [place] tel:[phone] [facility] Varicose veins of right lower extremity with other complications Aug- 3 Makenzie Abreu. [address] [place], [place], [id number], [place]. tel:[phone] Referring Provider: [place], [address] [place], [address] . tel:[phone] [place] [facility], [address] [place] [address] [address] Basil [place]lamas [place], [id number], tel:[phone] [facility] Encounter for follow-up examination after completed treatment for conditions other than malignant neChronic venous hypertension (idiopathic) with other complications of right lower extremity Aug- 3 Makenzie Abreu. [address] [place], [place], [id number], [place]. tel:[phone] Referring Provider: [place], [address] [place], [address] . tel:[phone] [facility], [address] [place] [address] Dr Chao [address]Basil [place], [id number], tel:[phone] [facility] [place] [facility] [place] Varicose veins of right lower extremity with other complications Oct-0 3 Makenzie Abreu. [address] [place] [address], [id number], [place]. tel:[phone] Referring Provider: Lois Banegas MD, [address] [place] [address], [id number] . tel:[phone] [facility], [address] [place] [address] Dr Chao [address], [place], [id number], tel:[phone] [facility] [place] [facility] [place] Encntr for f/u exam aft trtmt for cond oth than malig neoplmChronic venous hypertension w oth comp of r low extrem Sep- [address] [place] [address], [id number], [place]. tel:[phone] Referring Provider: Lois Banegas MD, [address] [place] [address], [id number] . tel:[phone] [facility]AO, [address] [place] [address] Dr Chao [address], [place], [id number], tel:[phone] [facility] [place] [facility] [place] Varicose veins of right low extrm w oth complications Sep-0 3 Makenzie Abreu. [address] [place] [address], [id number], [place]. tel:[phone] Referring Provider: Lois Banegas MD, [id number] [place] [address], [address] . tel:[phone] Office/Oupt E&M New Pt 45 Mins [facility], [address] [place] [address] [address], [place], [id number], [place] tel:[phone] [facility] [place] [facility] [place] Postthrombotic syndrome w oth complications of r low extremLocalized edemaVenous insufficiency (chronic) (peripheral)Lymph edema, not elsewhere classifiedFlail joint, unspecified jointHereditary lymphedema 3 Aly Kauffman. [address] [facility], [address], [place], [place], [id number], [place]. tel:[phone] Referring Provider: Lois Banegas MD, [address] [place] [address], [address] . tel:[phone] [facility], [address] [place] [address] Dr Chao [address] [address], [place], [id number], [place] tel:[phone] [facility] [place] [facility] [place] Chronic venous htn w oth comp of bilateral low extrm 3 Makenzie Abreu. [address] [place] [address], [id number], [place]. tel:[phone] Referring Provider: Lois Banegas MD, [address] [place] [address], [address] . tel:[phone] Family History Family Member Type Diagnosis Age At Onset No Information Payers Payer name Insurance type Covered alliance party ID Authoriza tion(s) [place] [id number] [employer] CI [id number] Social History Type Description Quantity Date Captured Comments Alcohol Use Details Unknown Caffeine Use Details Unknown Tobacco Use Status Smoking Status Smoker, current status unknown J Non-Smoking Tobacco Use Details : No Details Available : No Details Available [id number] SexFemale Vital Signs Date / Time: Height Weight BMI Pulse Rate Blood Pressure Temperature Respiratory Rate Body Surface Area Head Circumference Head Circ. Percentile Wt./Benson. Percentile BMI percentile Pulse Ox Inhaled Ox 62.140 kg (137.00 lbs) 24.3 0 kg/m eter (2) 131/83 mm[Hg] Chief Complaint And Reason For Visit No Information Reason For Referral Reason For Referral No Information Plan Of Treatment Date Type Action Status Goal Tobacco cessation counseling completed Goal Diet education completed Goal Tobacco cessation counseling completed Goal Diet education completed Goal Tobacco cessation counseling completed Goal Diet education completed Referral Ordered: Weight management: Referral to physician timeframe: 3 Months (related to Body mass index (BMI) 24.0-24.9, adult) [id number] Ordered: Weight management: Referral to physician timeframe: 3 Months (related to Body mass index (BMI) 22.0-22.9, adult) [id number] Ordered: Weight management: Referral to physician timeframe: 3 Months (related to Body mass index (BMI) 22.0-22.9, adult) ordered History Of Present Illness Encounter Date Complaint History Of Prese nt Illness No Information Functional Status Date Functional Assessmen t No Information Instructions Date Instruction Additional Infor mation Pre and post instruc tions reviewed and provided Related to Chronic venous hypertension (idiopathic) with other complications of right lower extremity Patient education booklet given Related to Chronic venous hypertension (idiopathic) with other complications of right lower extremity Lifestyle education Related to B jessica mass index (BMI) 24.0-24.9, adult Giving Encouragement to exercise Related to Body mass index (BMI) 24.0-24.9, adult Diet education Related to Body mass index (BMI) 24.0-24.9, adult Compression stocking usage as conservative measure Related to Localized edema Patient education booklet given Related to Localized edema Lifestyle education Related to B jessica mass index (BMI) 22.0-22.9, adult Giving Encouragement to exercise Related to Body mass index (BMI) 22.0-22.9, adult Diet education Related to Body mass index (BMI) 22.0-22.9, adult Pre and post instruc tions reviewed and provided Related to 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
[2025-10-15] VITALS (23 sets, daily range): BP systolic 107–135; BP diastolic 56–76; PULSE 87–116; TEMP 36.7; O2SAT 82–100; BMI 24.8
--- NOTE | 2025-10-15 15:56 | XR_ITS ---
The [address] [address] Patient Name: RHETT MEJIA MRN: [id number] date: 1960 Sex: F Assigned Patient Location: ED.MAIN Current Patient Location: ED.MAIN Accession/Order Number: [id number] Exam Date: 10/15/2025 16:03 Report Date: 10/15/2025 16:19 At the request of: MINI WOODALL Procedure: XR chest 1V XR chest 1V 10/15/2025 4:10 PM SIGNS AND SYMPTOMS: ^shortness of breath ^Y PROTOCOL: Frontal radiograph of the chest COMPARISON: 04/07/2024 FINDINGS: The trachea is midline. The heart and mediastinal structures are within normal limits. There is interstitial prominence bilaterally similar to the prior exam. The lung parenchyma is clear. The bony thorax is intact. XR/XR chest 1V IMPRESSION: No acute cardiopulmonary pathology. Chronic-appearing interstitial prominence is redemonstrated. Impression dictated by: Almas Singh M.D. 10/15/2025 4:19 PM Dictation Location: [place] [address] Electronically authenticated by: [id number] Y Date: 10/15/2025 16:19
--- NOTE | 2025-10-15 15:56 | ECG_ITS ---
The [facility] Test Date: 2025-10-15 Pat Name: RHETT MEJIA Department: Room: - Gender: Female [employer]: : 1960 Requested By: Minh Ibarra Order Number: [id number] Reading MD: LAN NORWOOD M.D. Measurements Intervals [place] Rate: 88 P: 90 PA: 116 QRS: 66 QRSD: 124 T: 72 QT: 394 QTc: 439 Interpretive Statements 1100 Sinus rhythm 2210 Short PA interval Cannot rule out Inferior myocardial infarction, probably old 9150 abnormal ECG Compared to ECG 03/02/2024 22:21:31 Short PA interval now present Possible Myocardial infarct finding now present Electronically Signed On 10-15-2025 16:51:17 EST by LAN NORWOOD M.D.
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
--- OUTSIDE RECORDS SUMMARY | 2025-10-15 16:10 | XMS_ITS | Clinical Summary ---
Author Organization [employer] s tem Address [id number] [place] [address] Care Team Providers Care Refrigeration System Installer Name Role Phone Ke Rahman MD Primary Care Provider [phone] Allergies Active AllergyReactionsCriticalityNoted DateCommentsIodinated Contrast Media IvcglhrsnupAjcc71/31/7667Qnbtf52/05/7086Iyfbyvhykh60/26/2018Penicillins 05/12/20181697Wqngxqatuvy26/26/7699Pjlosca56/05/7515Fjdlpahr68/27/2018 Medications MedicationSigDispense QuantityRefillsLast FilledStart DateEnd DateStatus esomeprazole [...] DateDiagnosed DateBenzodiazepine overdose of undetermined intent 05/12/2018 Immunizations ImmunizationAdministration DatesNext EgnPeto4006/16/2025,07/22/2019 Social History Tobacco UseTypesPacks/DayYears UsedDateSmoking Tobacco: Some DaysSmokeless Tobacco: NeverAlcohol UseStandard Drinks/WeekCommentsYes0 (1 standard drink = 0.6 oz pure alcohol)ChildcareAnswerDate SkpnssnzJwoggolsiEojlayk50/12/2019 EmploymentAnswerDate MbcmuyhrIgxykeqturYueyxcv02/12/2019Hunger ScreeningAnswer Date RecordedWithin the past 12 months we worried whether our food would run out before we got money to buy more.Never True06/16/2025Within the past 12 months the food we bought just didn't last and we didn't have money to get more.Never True06/16/2025Purpose - LifeAnswerDate RecordedPurpose and direction in life Lfndzov06/11/2021CommentsUnknownSex and Gender InformationValueDate RecordedSex Assigned at BirthNot on fileLegal NgfThydaz93/06/2015 11:23 AM EDT Gender IdentityNot on fileSexual OrientationNot on file Last Filed Vital Signs Vital SignReadingTime TakenCommentsBlood Oyvrmoxg059/8406/16/2025 6:15 AM EDT Jnjty943906/16/2025 5:45 AM WOQKwyvqyyacio74.8 ??C (98.3 ??F)06/16/2025 5:22 AM EDTRespiratory Kyqh323706/16/2025 5:22 AM EDTOxygen Bsaridcfmw91%06/16/2025 5:45 AM EDTInhaled Oxygen Concentration--Tjelmh99.8 kg (145 lb)06/16/2025 5:22 AM EDT Tjzesf521 cm (5' 3 )06/16/2025 5:22 AM EDTBody Mass Index25.69006/16/2025 5:22 AM EDT Plan of Treatment Health MaintenanceDue DateLast DoneCommentsTobacco Ckitkgykkc1959 Depression Wopbqfbyz94/22/1971Adult BMI Follow Up Plan1977Zoster (Shingles) Vaccine (2 of 2)Fall Risk Nqvxijzun45/22/2024 COVID-19 Vaccine (3 - season)504/11/2020, 01/18/2021Influenza Nmdvyxd88/01/2021, 08/07/2020, 09/10/2018, Additional history exists Adult BMI Rrceqozzd10/Tobacco Bitkbvutl32RSV ( or age 60+ yrs) (1 - 1-dose 75+ series)4DTaP,Tdap and Td Vaccines (4 - Td or Tdap)5006/16/2025, 07/22/2019, 01/21/1992 Medical Devices Not on file Insurance Advance Directives * Full Code (Latest Code Status on File) Date ActivatedDate InactivatedComments05/13/2018 10:59 AM05/14/2018 12:25 AM Care Teams Team MemberRelationshipSpecialtyStart DateEnd Date Ke Rahman MD [facility]05/12/18
--- OUTSIDE RECORDS SUMMARY | 2025-10-15 16:10 | XMS_ITS | Clinical Summary ---
Author Organization [facility] Address [address] [place] [address] Care Team Providers Care Director Internal Communications Name Role Phone Unavailable Primary Care Provider Unavailabl e Social History Tobacco UseTypesPacks/DayYears UsedDateSmoking Tobacco: Never Assessed CommentsUnknownSex and Gender InformationValueDate RecordedSex Assigned at Not on fileLegal YnlGwyjqk03/15/2023 6:59 PM EDTGender IdentityNot on fileSexual OrientationNot on file Plan of Treatment Not on file
--- OUTSIDE RECORDS SUMMARY | 2025-10-15 16:10 | XMS_ITS | CCD ---
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 [address]Dr. Raul ChangVLDL CALC33.0 mg/dLFostoria City HospitalComment on above:Performed By: #### DATLIPI ####[facility] [address] [place], [place] [address]DrLeann PereiraDRUG SCREEN RAPID (URINE)on [id number] NEGATIVEMercy Health St. Elizabeth Youngstown HospitalComment on above:Performed By: #### CBC #### [facility] [address] [address] [address] Raul PereiraBARNegativeNormalNEGATIVEMercy Health St. Elizabeth Youngstown HospitalComment on above: Performed By: #### CBC #### [facility] [address] [address] [address] Raul PereiraBUPPositiveAbnormalNEGATIVEMercy Health St. Elizabeth Young[facility] HospitalComment on above: Performed By: #### CBC #### [facility] [address] [address] [address] Raul PereiraBZONegativeNormalNEGATIVEMercy Health St. Elizabeth Young[facility] HospitalComment on above: Performed By: #### CBC #### [facility] [address] [place] [address] Dr. Raul NunezCNegativeNormalNEGATIVEMercy Health St. Elizabeth Young[facility] HospitalComment on above: Performed By: #### CBC #### [facility] [address] [place] [address] Dr. Raul JewellSelect Medical OhioHealth Rehabilitation Hospital - DublinComment on above: Result Comment: AMP (Amphetamine): 500ng/mL, BAR (Barbituates): 200 ng/mL, BZO (Benzodiazepines): 150 ng/mL, BUP (Buprenorphine): 10 ng/mL, RADHA (Cocaine): 150 ng/mL, mAMP (Methamphetamine): 500 ng/mL, MTD (Methadone): 200 ng/mL, OPI (Opiates): 100 ng/mL, OXY (Oxycodone): 100 ng/mL, PCP (Phencyclidine): 25 ng/mL, PPX (Propoxyphene): 300 ng/mL, THC (Cannabinoids): 50 ng/mL, TCA (Trycyclic Antidepressants): 300 ng/mLPerformed By: #### CBC #### [facility] [address] [place] [address] Dr. Raul PereiraDRUG CUT HEADERDRUG CLASS TEST SYSTEM CUT-OFF CONCENTRATIONS ARE FOLLOWS:NormalThe [facility] on above:Performed By: #### CBC #### [facility] [address] [place] [address] Dr. Raul PereiramAMPNegativeNormalNEGATIVEMercy Health St. Elizabeth [facility] HospitalComhenry [facility] on above: Performed By: #### CBC #### [facility] [address] [place] [address] Dr. Raul PereiraMTDNegativeNormalNEGATIVEMercy Health St. [facility] HospitalComhenry [facility] on above: Performed By: #### CBC #### [facility] [address] [place] [address] Dr. Raul AlvarengaINegativeNormalNEGATIVEMercy Health St. [facility] HospitalComhenry [facility] on above: Performed By: #### CBC #### [facility] [address] [place] [address] Dr. Raul PereiraOXYNegativeNormalNEGATIVEMercy Health St. Elizabeth Young[facility] HospitalComment on above: Performed By: #### CBC #### [facility] [address] [address] [address] Raul PereiraPCPNegativeNormalNEGATIVEMercy Health St. [facility] HospitalComhenry [facility] on above: Performed By: #### CBC #### [facility] [address] [address] [address] Raul PereiraPPXNegativeNormalNEGATIVEThe [facility] HospitalComment on above: Performed By: #### CBC #### [facility] [address] [address] [address] Raul PereiraTCAPositiveAbnormalNEGATIVEMercy Health St. [facility] HospitalComhenry [facility] on above: Performed By: #### CBC #### [facility] [address] [address] [address] Raul PereiraTHCNegativeNormalNEGDunlap Memorial HospitalComment on above: Performed By: #### CBC #### [facility] [address] [address] [address] Raul Tucker THYROXINE INDEX T7on 63-75-6670EPS3.96Acsacm3.30-4.50The [facility] HospitalComhenry for[facility] on above:Performed By: #### CVDTBH #### [facility] [address] [address] [address] Raul PereiraT3U39.0 %Zkfntr74.0-39.0The [facility] HospitalComment on above: Performed By: #### CVDTBH #### [facility] [address] [address] [address] Raul PereiraT4 [Mass/Vol]7.40 ug/dLNormal4.80-13.90The [facility] Comment on above:Performed By: #### CVDTBH #### [facility] [address] [place] [address] Dr. Raul PereiraGLYCOHEMOGLOBIN A1Con 13-48-7196VCS RECOMMENDATIONSEE BELOWNormal [facility] HospitalComment on above:Result Comment: ADA RECOMMENDED LIMIT 4.0 - 6.0 ADA THERAPEUTIC TARGET < 7.0 ACTION SUGGESTED > 7.0Performed By: #### DATA1C ####[facility] [address] [address]Dr. Raul PereiraGlucose [Mass/Vol]108 mg/dLNormalThe [facility] Comment on above:Performed By: #### DATA1C ####[facility] [address] [address]DrLeann PereiraHbA1c (Bld) [Mass fraction] 5.4 %Normal4.5-6.2The [facility] HospitalComment on above:Performed By: #### DATA1C ####[facility] [address] [address]Dr. Raul PereiraIRONon 42-09-8864Sfst [Mass/Vol]225.0 ug/dLCritically high 50.0-170.0The [facility] HospitalComment on above:Performed By: #### CVDTBH #### [facility] [address] [place] [address] Dr. Raul PereiraPROF 14(COMP METB)on 08-38-1266Csjqlzs [Mass/Vol]3.8 g/dLNormal 3.4-5.0The [facility] HospitalComment on above:Performed By: #### CVDTBH #### [facility] [address] [place] [address] Dr. Raul PereiraAlbumin/Globulin [Mass ratio]1.2 {ratio}NormalThe [facility] HospitalComment on above:Performed By: #### CVDTBH #### [facility] [address] [place] [address] Dr. Raul Osborn [Catalytic activity/Vol]77 U/WBilcgj60-613Ftd [facility] HospitalComment on above:Performed By: #### CVDTBH #### [facility] [address] [place] [address] Dr. Raul Gomez [Catalytic activity/Vol]19 U/XFzxhzu97-26Uny [facility] HospitalComment on above:Performed By: #### CVDTBH #### [facility] [address] [place] [address] Dr. Yilan ChangAnion gap [Moles/Vol]12.9 mmol/LNormalMercy Health St. [facility] Comment on above:Performed By: #### CVDTBH #### [facility] [address] [place] [address] Dr. Raul PereiraAST [Catalytic activity/Vol]17 U/YZxuatk19-73Nct [facility] HospitalComment on above:Performed By: #### CVDTBH #### [facility] [address] [address] [address] Raul PereiraBilirubin [Mass/Vol]0.3 mg/dLNormal0.2-1.0The [facility] Comment on above:Performed By: #### CVDTBH #### [facility] [address] [place] [address] Dr. Raul PereiraCalcium [Mass/Vol]8.9 mg/dLNormal8.5-10.1[facility] Comment on above:Performed By: #### CVDTBH #### [facility] [address] [place] [address] Dr. Raul PereiraChloride [Moles/Vol]101 mmol/YBbforz86-375VghMercy Health St. [facility] Comment on above:Performed By: #### CVDTBH #### [facility] [address] [place] [address] Dr. Raul PereiraCO2 [Moles/Vol]28.5 mmol/IZrrelb58.0-32.0[facility] Comment on above:Performed By: #### CVDTBH #### [facility] [address] [place] [address] Dr. Raul PereiraCreatinine [Mass/Vol]0.59 mg/dLNormal0.55-1.02The [facility] HospitalComment on above:Performed By: #### CVDTBH #### [facility] [address] [place] [address] Dr. Raul AlcantarGFR-AF WALLISIAN>60Normal>=60The [facility] HospitalComment on above:Performed By: #### CVDTBH #### [facility] [address] [place] [address] Dr. Raul AlcantarGFR-NON AF WALLISIAN>60Normal>=60The [facility] HospitalComment on above:Performed By: #### CVDTBH #### [facility] [address] [address] [address] Raul PereiraGlobulin (S) [Mass/Vol]3.1 g/dLNormalThe [facility] HospitalComment on above:Performed By: #### CVDTBH #### [facility] [address] [address] [address] Raul PereiraGlucose [Mass/Vol]84 mg/iQGkzaiv28-012Hlr [facility] Comment on above:Performed By: #### CVDTBH #### [facility] [address] [place] [address] Dr. Raul PereiraPotassium [Moles/Vol]4.4 mmol/LNormal3.5-5.1The [facility] Comment on above:Performed By: #### CVDTBH #### [facility] [address] [place] [address] Dr. Raul PereiraProtein [Mass/Vol]6.9 g/dLNormal6.4-8.2The [facility] Comment on above:Performed By: #### CVDTBH #### [facility] [address] [place] [address] Dr. Raul PereiraSodium [Moles/Vol]138 mmol/QSeygdm160-140Ffo [facility] Comment on above:Performed By: #### CVDTBH #### [facility] [address] [place] [address] Dr. Raul PereiraUrea nitrogen [Mass/Vol]11.0 mg/dLNormal7.0-18.0The [facility] HospitalComment on above:Performed By: #### CVDTBH #### [facility] [address] [place] [address] Dr. Raul PereiraUrea nitrogen/Creatinine [Mass ratio]18.6 mg/mgNormalThe [facility] HospitalComment on above:Performed By: #### CVDTBH #### [facility] [address] [address] [address] Raul Cortes 27-04-3352UBY2.354 uIU/mLNormal0.358-3.740[facility] on above:Performed By: #### CVDTBH #### [facility] [address] [address] [address] Raul Saleh RANDOM W/MICROSCOPICon [id number] SEENNormalNONE SEENMercy Health St. Elizabeth Youngstown HospitalComment on above:Performed By: #### CBC #### [facility] [address] [address] [address] Raul PereiraBilirubin Ql (U)NegativeNormalNEGATIVEUniversity Hospitals Conneaut Medical Center on above:Performed By: #### CBC #### [facility] [address] [place] [address] Dr. Raul PereiraCASTNONE SEENNormalNONE SEENMercy Health St. Elizabeth [facility] HospitalComment on above:Performed By: #### CBC #### [facility] [address] [address] [address] Raul Holdenarity (U)CLEARNormalCLEARMercy Health St. Elizabeth [facility] HospitalComhenry [facility] on above: Performed By: #### CBC #### [facility] [address] [address] [address] Raul Valetnine (U)YELLOWNormalYELLOWMercy Health St. Elizabeth Youngstown HospitalComment on above: Performed By: #### CBC #### [facility] [address] [address] [address] Raul PereiraCrystals LM Nom (Urine sed)NONE SEENNormalNONE SEENMercy Health St. Elizabeth [facility] HospitalComhenry [facility] on above:Performed By: #### CBC #### [facility] [address] [address] [address] Carter ChangEpithelial cells LM Ql (Urine sed)NONE SEENNormalNONE SEEN /RARE The [facility] HospitalComhenry [facility] on above:Performed By: #### CBC #### [facility] [address] [address] [address] Raul PereiraGlucose Ql (U)NegativeNormalNEGATIVEMercy Health St. Elizabeth Young[facility] HospitalComment on above:Performed By: #### CBC #### [facility] [address] [address] [address] Raul PereiraHemoglobin Ql (U)NegativeNormalNEGATIVEMercy Health St. [facility] Comment on above:Performed By: #### CBC #### [facility] [address] [address] [address] Raul PereiraKetones Ql (U)NegativeNormalNEGATIVEMercy Health St. Elizabeth Young[facility] HospitalComment on above:Performed By: #### CBC #### [facility] [address] [address] [address] Raul PereiraLEUKOCYTESNegativeNormalNEGATIVEMercy Health St. Elizabeth Young[facility] HospitalComment on above:Performed By: #### CBC #### [facility] [address] [place] [address] Dr. Raul PereiraMUCOUSNONE SEENNormalNONE SEENMercy Health St. Elizabeth Young[facility] HospitalComment on above:Performed By: #### CBC #### [facility] [address] [address] [address] Raul PereiraNitrite Ql (U)NegativeNormalNEGATIVEMercy Health St. Elizabeth Young[facility] HospitalComment on above:Performed By: #### CBC #### [facility] [address] [address] [address] Raul PereirapH (U)5.5 [pH]Normal5-9[facility] HospitalComment on above: Performed By: #### CBC #### [facility] [address] [place] [address] Dr. Raul PereiraRBCNONE SEENAbnormal0-2The [facility] HospitalComment on above: Performed By: #### CBC #### [facility] [address] [address] [address] Raul PereiraSPEC GRAVITY1.150Tosejbpg9.005-<=1.025[facility] Comment on above:Performed By: #### CBC #### [facility] [address] [address] [address] Raul PereiraUA PROTEINNegativeNormalNEGATIVE/ TRACEThe [facility] Comment on above:Performed By: #### CBC #### [facility] [address] [address] [address] Raul Barger Qn (U)0.2 {Farrukh'U}/dLNormal0.2 - 1.0[facility] HospitalComment on above:Performed By: #### CBC #### [facility] [address] [place] [address] Dr. Raul PereiraWBCNONE SEENNormalNONE SEENMercy Health St. Elizabeth Young[facility] HospitalComment on above: Performed By: #### CBC #### [facility] [address] [place] [address] Dr. Raul PereiraVITAMIN D 25 OHon 07-19-1500WHW D 25-OH40.8 ng/mLNormalMercy Health St. Elizabeth Youngstown HospitalComment on above:Performed By: #### CVDTBH #### [facility] [address] [place] [address] Dr. Raul Del RioT D RANGESSEE BELOWFostoria City HospitalComment on above: Result Comment: <20 ng/mL Vit D deficient 20 - <30 ng/mL Vit D insufficient 30 - 100 ng/mL Vit D sufficient >100 ng/mL Potential ToxicityPerformed By: #### CVDTBH #### [facility] [address] [place] [address] Dr. Raul PereiraVC VENOUS REFLUX ALEXUS Ton [id number] VENOUS REFLUX ALEXUS LMT Patient: RHETT MEJIA Exam Date: 01/30/2023 : 1960 Gender:F Ordering : DR NAPOLEON LOPEZ . Admission #: [id number] Family : Order #: [id number] CLICK HERE TO VIEW EXAM RADIOLOGY REPORT [...] thrombus. Compressibility: Normal. Flow: Deep venous reflux. Supervisor [employer]:Mid/medial lower leg 4.3 mm with 0.8s reflux. [...] great saphenous vein along with dilated, incompetent warehouse stock clerk veins and numerous branch saphenous varicosities. 2. 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 Proximal closer with endovenous laser ablation may be beneficial followed by treatment with microfoam chemical ablation. Incompetent lower leg warehouse stock clerk vein which may contribute to patient's reflux; laser ablation is recommended. Dilated, incompetent branch saphenous varicosities which would benefit from microfoam chemical ablation. 3. Consultation for endovenous ablation is recommended. Dictated by: Jessica Winkler M.D. on 01/31/2023 at 09:46 Approved by: Jessica Winkler M.D. on 01/31/2023 at 09:51NoSuburban Community Hospital & Brentwood HospitalCB AUTO DIFFon 65-09-7050TOSH #0.0 103/ulNormal0.0-0.1[facility] HospitalComment on above:Performed By: #### CBC #### [facility] [address] [place] [address] Dr. Raul Negretesophils/100 WBC (Bld)0.5 %Normal0.2-2.0[facility] Comment on above:Performed By: #### CBC #### [facility] [address] [address] [address] Raul Baker #0.1 103/ulNormal0.0-0.7ThHolmes County Joel Pomerene Memorial HospitalComment on above: Performed By: #### CBC #### [facility] [address] [address] [address] Raul Alcantarosinophils/100 WBC (Bld)1.7 %Normal0.9-7.0[facility] Comment on above:Performed By: #### CBC #### [facility] [address] [place] [address] Dr. Raul Alcantarrythrocyte distribution width (RBC) [Ratio]18.4 %Critically high 11.0-15.0The [facility]. Elizabeth Hospitalment on above:Performed By: #### CBC #### [facility] [address] [place] [address] Dr. Raul PereiraHematocrit (Bld) [Volume fraction]33.1 %Critically low36.0-48.0 The [facility] HospitalComment on above:Performed By: #### CBC #### [facility] [address] [place] [address] Dr. Raul PereiraHemoglobin (Bld) [Mass/Vol]10.4 g/dLCritically low12.0-16.0The [facility] HospitalComment on above:Performed By: #### CBC #### [facility] [address] [place] [address] Dr. Raul Carrington #0.03 10e3/ulNormal0.00-0.03The [facility] HospitalComment on above:Performed By: #### CBC #### [facility] [address] [place] [address] Dr. Raul Carrington %0.4 %Normal0.0-0.5The [facility] HospitalComment on above: Performed By: #### CBC #### [facility] [address] [place] [address] Dr. Raul EspinozaH #1.9 103/ulNormal1.2-3.8The [facility] HospitalComment on above:Performed By: #### CBC #### [facility] [address] [place] [address] Dr. Raul Sofiamphocytes/100 WBC (Bld)25.2 %Dldsia08.5-60.0The [facility] HospitalComment on above:Performed By: #### CBC #### [facility] [address] [place] [address] Dr. Raul LeyvaUAL DIFF REQNONormalThe [facility] HospitalComment on above: Performed By: #### CBC #### [facility] [address] [address] [address] Raul Champion (RBC) [Entitic mass]24.1 pgCritically low26.7-34.0The [facility] HospitalComment on above:Performed By: #### CBC #### [facility] [address] [address] [address] Raul Champion (RBC) [Mass/Vol]31.4 g/aCOoquqi85.9-35.2The [facility] HospitalComment on above:Performed By: #### CBC #### [facility] [address] [address] [address] Raul ChampionV (RBC) [Entitic vol]76.6 fLCritically low81.0-99.0The [facility] HospitalComment on above:Performed By: #### CBC #### [facility] [address] [place] [address] Dr. Raul Villanueva #0.8 103/ulNormal0.3-0.8The [facility] HospitalComment on above:Performed By: #### CBC #### [facility] [address] [place] [address] Dr. Raul Alfordocytes/100 WBC (Bld)10.7 %Normal1.7-12.0The Greene [facility] Comment on above:Performed By: #### CBC #### [facility] [address] [address] [address] Raul Sparks #4.7 103/ulNormal1.4-6.5The [facility] HospitalComment on above:Performed By: #### CBC #### [facility] [address] [address] [address] Raul Becerrilutrophils/100 WBC (Bld)61.5 %Odsvre93.0-75.0The [facility] HospitalComment on above:Performed By: #### CBC #### [facility] [address] [place] [address] Dr. Raul Lanelet mean volume (Bld) [Entitic vol]8.6 fLCritically low 9.5-13.5The [facility] HospitalComment on above:Performed By: #### CBC #### [facility] [address] [address] [address] Raul PereiraPLT461 103/ulCritically idit903-686Vrx [facility] HospitalComment on above:Performed By: #### CBC #### [facility] [address] [address] [address] Raul PereiraRBC4.32 106/ulNormal4.20-5.40The [facility] HospitalComment on above:Performed By: #### CBC #### [facility] [address] [address] [address] Raul PereiraWBC7.6 103/ulNormal4.0-11.0The [facility] HospitalComment on above: Performed By: #### CBC #### [facility] [address] [address] [address] Raul Tucker THYROXINE INDEX T7on 61-29-3751SGX8.52Vrmnpv9.30-4.50The [facility] HospitalComment on above:Performed By: #### T7, CMP, TSH, LIPID ####[facility] [address] [address]Dr. Raul PereiraT3U35.0 %Nvcqaz20.0-39.0The [facility] HospitalComment on above: Performed By: #### T7, CMP, TSH, LIPID ####[facility] [address] [address]Dr. Raul PereiraT4 [Mass/Vol]6.00 ug/dLNormal 4.80-13.90The [facility] HospitalComment on above:Performed By: #### T7, CMP, TSH, LIPID ####[facility] [address] [address]Dr. Raul PereiraGLYCOHEMOGLOBIN A1Con 31-40-7886NEH RECOMMENDATIONSEE BELOW NormalThe [facility] HospitalComhenry [facility] on above:Result Comment: ADA RECOMMENDED LIMIT 4.0 - 6.0 ADA THERAPEUTIC TARGET < 7.0 ACTION SUGGESTED > 7.0Performed By: #### CVDTBH #### [facility] [address] [address] [address] Raul PereiraGlucose [Mass/Vol]108 mg/dLNoTrinity Health System [facility] on above:Performed By: #### CVDTBH #### [facility] [address] [address] [address] Raul PereiraHbA1c (Bld) [Mass fraction]5.4 %Normal4.5-6.2The [facility] HospitalComment on above:Performed By: #### CVDTBH #### [facility] [address] [address] [address] Raul Stone AND TIBCon 01-13-2023% SATURATION3.5 %NormalThe [facility] HospitalComhenry [facility] on above:Performed By: #### FETIBC, B12FOL, VITAD ####[facility] [address] [address]DrLeann PereiraIron [Mass/Vol]18.0 ug/dLCritically low50.0-170.0The [facility] on above:Performed By: #### FETIBC, B12FOL, VITAD ####[facility] [address] [address]DrLeann PereiraTIBC DIRECT 513.0 ug/dLCritically cxzh617.0-450.0The [facility] on above: Performed By: #### FETIBC, B12FOL, VITAD ####[facility] [address] [address]DrLeann PereiraLIPID PROFILEon 01-13-2023 CHOL-HDL RATIO NORMSEE [facility]Comhen[facility] on above:Result Comment: 3.3 - 4.4 LOW RISK 4.4 - 7.1 AVERAGE RISK 7.1 - 11.0 MODERATE RISK >11.0 HIGH RISKPerformed By: #### T7, CMP, TSH, LIPID ####[facility] [address] [address]DrLeann PereiraCholesterol [Mass/Vol]190 mg/dLNormal<=200The Kai HospitalComment on above:Performed By: #### T7, CMP, TSH, LIPID ####[facility] [address] [address]Dr. Yilan ChangCholesterol in HDL [Mass/Vol]71 mg/dL Critically ujzp64-59QhhMercy Health St. Elizabeth [facility] HospitalComhenry [facility] on above:Performed By: #### T7, CMP, TSH, LIPID ####[facility] [address] [address]Dr. Yilan ChangCholesterol in LDL [Mass/Vol]104.6 mg/dLNoSuburban Community Hospital & Brentwood HospitalComment on above:Performed By: #### T7, CMP, TSH, LIPID ####[facility] [address] [place], [place] [address]Dr. Yilan ChangCholesterol.total/Cholesterol in HDL [Mass ratio]2.7 {ratio}NormalSelect Medical Specialty Hospital [facility] on above:Performed By: #### T7, CMP, TSH, LIPID ####[facility] [address] [place], [place] [address]Dr. Yilan ChangHDL NORMAL> or = 60 mg/dl - LOW CARDIOVASCULAR RISK <40 mg/dl - HIGH CARDIOVASCULAR RISKFostoria City HospitalComhenry [facility] on above:Performed By: #### T7, CMP, TSH, LIPID ####[facility] [address] [address]Dr. Yilan ChangLDL CALC NORMALSEE BELOWNoSuburban Community Hospital & Brentwood HospitalComment on above:Result Comment: <100 mg/dl OPTIMAL 100 - 129 mg/dl NEAR OR ABOVE OPTIMAL 130 - 159 mg/dl BORDERLINE HIGH 160 - 189 mg/dl HIGH >190 mg/dl VERY HIGHPerformed By: #### T7, CMP, TSH, LIPID ####[facility] [address] [place], [place] [address]Dr. Yilan ChangTriglyceride [Mass/Vol]72 mg/dLNormal<=150[facility] Youngstown HospitalComment on above:Performed By: #### T7, CMP, TSH, LIPID ####[facility] [address] [place], [place] [address]Dr. Raul PereiraVLDL CALC14.4 mg/dLNormalThe [facility] HospitalComment on above:Performed By: #### T7, CMP, TSH, LIPID ####[facility] [address] [address]Dr. Raul PereiraPROF 14(COMP METB)on 20-61-5537Jtpoqys [Mass/Vol]3.5 g/dLNormal3.4-5.0The [facility] HospitalComment on above:Performed By: #### T7, CMP, TSH, LIPID ####[facility] [address] [address]Dr. Raul Pereira Albumin/Globulin [Mass ratio]1.1 {ratio}NormalThe [facility] HospitalComment on above:Performed By: #### T7, CMP, TSH, LIPID ####[facility] [address] [address]Dr. Raul PereiraALP [Catalytic activity/Vol]92 U/SXbfvlo97-036Nlp [facility] HospitalComment on above:Performed By: #### T7, CMP, TSH, LIPID ####[facility] [address] [address]Dr. Raul PereiraALT [Catalytic activity/Vol]17 U/L Fegatb15-05Wkh [facility] HospitalComment on above:Performed By: #### T7, CMP, TSH, LIPID ####[facility] [address] [address]Dr. Raul PereiraAnion gap [Moles/Vol]10.0 mmol/LNormalThe [facility] Comment on above:Performed By: #### T7, CMP, TSH, LIPID ####[facility] [address] [address]Dr. Raul ChangAST [Catalytic activity/Vol]17 U/SWxcbzb78-00Tul [facility] HospitalComment on above:Performed By: #### T7, CMP, TSH, LIPID ####[facility] [address] [address]Dr. Raul ChangBilirubin [Mass/Vol]0.2 mg/dLNormal 0.2-1.0The [facility] HospitalComhenry [facility] on above:Performed By: #### T7, CMP, TSH, LIPID ####[facility] [address] [address]Dr. Yilan ChangCalcium [Mass/Vol]8.8 mg/dLNormal8.5-10.1The [facility] HospitalComment on above:Performed By: #### T7, CMP, TSH, LIPID ####[facility] [address] [place], [place] [address]Dr. Yilan Pereira Chloride [Moles/Vol]101 mmol/AZfmtbm56-292Inw [facility] HospitalComment on above: Performed By: #### T7, CMP, TSH, LIPID ####[facility] [address] [place], [place] [address]Dr. Yilan ChangCO2 [Moles/Vol]29.4 mmol/LNormal 21.0-32.0The [facility] HospitalComment on above:Performed By: #### T7, CMP, TSH, LIPID ####[facility] [address] [place], [place] [address]Dr. Yilan ChangCreatinine [Mass/Vol]0.50 mg/dLCritically low0.55-1.02The [facility] on above:Performed By: #### T7, CMP, TSH, LIPID ####[facility] [address] [place], [place] [address]Dr. Yilan ChangEGFR-AF WALLISIAN>60Normal>=60The [facility] on above: Performed By: #### T7, CMP, TSH, LIPID ####[facility] [address] [place], [place] [address]Dr. Yilan ChangEGFR-NON AF WALLISIAN>60Normal>=60 The [facility] on above:Performed By: #### T7, CMP, TSH, LIPID ####[facility] [address] [place], [place] [address]Dr. Yilan ChangGlobulin (S) [Mass/Vol]3.2 g/dLNormalThe [facility] HospitalComhenry [facility] on above:Performed By: #### T7, CMP, TSH, LIPID ####[facility] [address] [address]Dr. Yilan ChangGlucose [Mass/Vol]88 mg/gGQmdpej75-401Qgm [facility] HospitalComment on above:Performed By: #### T7, CMP, TSH, LIPID ####[facility] [address] [address]Dr. Yilan ChangPotassium [Moles/Vol]4.4 mmol/LNormal 3.5-5.1The [facility] HospitalComment on above:Performed By: #### T7, CMP, TSH, LIPID ####[facility] [address] [address]Dr. Yilan ChangProtein [Mass/Vol]6.7 g/dLNormal6.4-8.2[facility] Comment on above:Performed By: #### T7, CMP, TSH, LIPID ####[facility] [address] [place], [place] [address]Dr. Yilan ChangSodium [Moles/Vol]136 mmol/GBpxffz083-151Eyy [facility] HospitalComment on above: Performed By: #### T7, CMP, TSH, LIPID ####[facility] [address] [place], [place] [address]Dr. Yilan ChangUrea nitrogen [Mass/Vol]12.0 mg/dLNormal7.0-18.0The [facility] HospitalComhenry [facility] on above:Performed By: #### T7, CMP, TSH, LIPID ####[facility] [address] [place], [place] [address]Dr. Yilan ChangUrea nitrogen/Creatinine [Mass ratio]24.0 mg/mgNormal The [facility] HospitalComment on above:Performed By: #### T7, CMP, TSH, LIPID ####[facility] [address] [place], [place] [address]Dr. Yilan ChangTSHon 79-57-1600ZYA7.623 uIU/mLNormal0.358-3.740The [facility] Comment on above:Performed By: #### T7, CMP, TSH, LIPID ####[facility] [address] [address]Dr. Raul Del RioT B12 AND FOLATEon 38-73-8073Ffdvmgdbh (Vitamin B12) [Mass/Vol]872.0 pg/mLNormal 193.0-986.0The [facility] HospitalComment on above:Performed By: #### FETIBC, B12FOL, VITAD ####[facility] [address] [address]Dr. Raul PereiraMxqjlETAESR76.20 ng/mLNormal8.60-58.90[facility] Comment on above:Performed By: #### FETIBC, B12FOL, VITAD ####[facility] [address] [address]Dr. Raul PereiraVITAMIN D 25 OHon 57-57-1712DFC D 25-OH40.6 ng/mLNormalThe [facility] HospitalComment on above: Performed By: #### FETIBC, B12FOL, VITAD ####[facility] [address] [address]Dr. Raul Emery D RANGES[place] BELOWNormal The [facility] HospitalComment on above:Result Comment: <20 ng/mL Vit D deficient 20 - <30 ng/mL Vit D insufficient 30 - 100 ng/mL Vit D sufficient >100 ng/mL Potential ToxicityPerformed By: #### FETIBC, B12FOL, VITAD ####[facility] [address] [address]DrLeann PereiraCBC AUTO DIFF on 56-01-7864ZIIJ #0.1 103/ulNormal0.0-0.1The [facility] HospitalComment on above: Performed By: #### CVDTBH #### [facility] [address] [place] [address] Dr. Raul Patinophils/100 WBC (Bld)0.6 %Normal0.2-2.0[facility] Comment on above:Performed By: #### CVDTBH #### [facility] [address] [place] [address] Dr. Raul Baker #0.1 103/ulNormal0.0-0.7The [facility] HospitalComment on above: Performed By: #### CVDTBH #### [facility] [address] [place] [address] Dr. Raul Alcantarosinophils/100 WBC (Bld)1.3 %Normal0.9-7.0The [facility] Comment on above:Performed By: #### CVDTBH #### [facility] [address] [place] [address] Dr. Raul Alcantarrythrocyte distribution width (RBC) [Ratio]18.4 %Critically high 11.0-15.0The [facility] HospitalComment on above:Performed By: #### CVDTBH #### [facility] [address] [place] [address] Dr. Raul PereiraHematocrit (Bld) [Volume fraction]37.8 %Lsymto79.0-48.0The [facility] HospitalComment on above:Performed By: #### CVDTBH #### [facility] [address] [place] [address] Dr. Raul PereiraHemoglobin (Bld) [Mass/Vol]11.6 g/dLCritically low12.0-16.0The [facility] HospitalComment on above:Performed By: #### CVDTBH #### [facility] [address] [place] [address] Dr. Raul Carrington #0.02 10e3/ulNormal0.00-0.03The [facility] HospitalComment on above:Performed By: #### CVDTBH #### [facility] [address] [place] [address] Dr. Raul Carrington %0.3 %Normal0.0-0.5The [facility] HospitalComment on above: Performed By: #### CVDTBH #### [facility] [address] [place] [address] Dr. Raul EspinozaH #1.7 103/ulNormal1.2-3.8The [facility] HospitalComment on above:Performed By: #### CVDTBH #### [facility] [address] [place] [address] Dr. Raul Sofiamphocytes/100 WBC (Bld)21.0 %Ggvmhh84.5-60.0The [facility] HospitalComment on above:Performed By: #### CVDTBH #### [facility] [address] [place] [address] Dr. Raul LeyvaUAL DIFF REQNONormalThe [facility] HospitalComment on above: Performed By: #### CVDTBH #### [facility] [address] [place] [address] Dr. Raul Champion (RBC) [Entitic mass]24.1 pgCritically low26.7-34.0The [facility] HospitalComment on above:Performed By: #### CVDTBH #### [facility] [address] [place] [address] Dr. Raul Champion (RBC) [Mass/Vol]30.7 g/kBZlajyf41.9-35.2The [facility] HospitalComment on above:Performed By: #### CVDTBH #### [facility] [address] [place] [address] Dr. Raul Champion (RBC) [Entitic vol]78.6 fLCritically low81.0-99.0The [facility] HospitalComment on above:Performed By: #### CVDTBH #### [facility] [address] [place] [address] Dr. Raul Villanueva #0.6 103/ulNormal0.3-0.8The [facility] HospitalComment on above:Performed By: #### CVDTBH #### [facility] [address] [place] [address] Dr. Raul Alfordocytes/100 WBC (Bld)7.5 %Normal1.7-12.0The [facility] Comment on above:Performed By: #### CVDTBH #### [facility] [address] [place] [address] Dr. Raul Sparks #5.4 103/ulNormal1.4-6.5The [facility] HospitalComment on above:Performed By: #### CVDTBH #### [facility] [address] [place] [address] Dr. Raul Becerrilutrophils/100 WBC (Bld)69.3 %Pyfhtw21.0-75.0The [facility] HospitalComment on above:Performed By: #### CVDTBH #### [facility] [address] [place] [address] Dr. Raul PereiraPlatelet mean volume (Bld) [Entitic vol]9.0 fLCritically low 9.5-13.5The [facility] HospitalComment on above:Performed By: #### CVDTBH #### [facility] [address] [place] [address] Dr. Raul PereiraPLT516 103/ulCritically odpl547-258Zad [facility] HospitalComment on above:Performed By: #### CVDTBH #### [facility] [address] [place] [address] Dr. Raul PereiraRBC4.81 106/ulNormal4.20-5.40The [facility] HospitalComment on above:Performed By: #### CVDTBH #### [facility] [address] [place] [address] Dr. Raul PereiraWBC7.8 103/ulNormal4.0-11.0The [facility] HospitalComment on above: Performed By: #### CVDTBH #### [facility] [address] [place] [address] Dr. Raul Parekh BLOODon 61-37-7201Zitjhwtisbn examination of blood, cultureCulture Observations: NO GROWTH AT 5 DAYS.NormalThe [facility] HospitalComment on above:Performed By: #### BLDCX2 #### [facility] [address] [place] [address] Dr. Raul PereiraMicroscopic examination of blood, cultureCulture Observations: NO GROWTH AT 5 DAYS.NormalThe [facility] HospitalComment on above:Performed By: #### BLDCX1 ####[facility] [address] [address]Dr. Raul PereiraPROF 14(COMP METB)on 36-93-9602Vuqobfd [Mass/Vol]3.7 g/dL Normal3.4-5.0The [facility] HospitalComment on above:Performed By: #### CBC #### [facility] [address] [address] [address] Raul PereiraAlbumin/Globulin [Mass ratio]0.9 {ratio}NormalThe [facility] HospitalComment on above:Performed By: #### CBC #### [facility] [address] [address] [address] Raul VitaleP [Catalytic activity/Vol]105 U/UZrgxfs90-426Bbb [facility] HospitalComment on above:Performed By: #### CBC #### [facility] [address] [place] [address] Dr. Raul VitaleT [Catalytic activity/Vol]18 U/SApsikh60-77Mxp [facility] HospitalComment on above:Performed By: #### CBC #### [facility] [address] [address] [address] Raul Wilde gap [Moles/Vol]10.8 mmol/LNormalThe [facility] Comment on above:Performed By: #### CBC #### [facility] [address] [place] [address] Dr. Raul PereiraAST [Catalytic activity/Vol]21 U/IYilonk93-26Aqg [facility] HospitalComment on above:Performed By: #### CBC #### [facility] [address] [place] [address] Dr. Raul PereiraBilirubin [Mass/Vol]0.3 mg/dLNormal0.2-1.0The [facility] Comment on above:Performed By: #### CBC #### [facility] [address] [address] [address] Raul PereiraCalcium [Mass/Vol]9.1 mg/dLNormal8.5-10.1The [facility] Comment on above:Performed By: #### CBC #### [facility] [address] [address] [address] Raul PereiraChloride [Moles/Vol]100 mmol/BUkzxvg98-957Cjo [facility] Comment on above:Performed By: #### CBC #### [facility] [address] [place] [address] Dr. Raul PereiraCO2 [Moles/Vol]30.8 mmol/DKoinkw38.0-32.0The [facility] Comment on above:Performed By: #### CBC #### [facility] [address] [place] [address] Dr. Raul PereiraCreatinine [Mass/Vol]0.58 mg/dLNormal0.55-1.02The [facility] HospitalComment on above:Performed By: #### CBC #### [facility] [address] [place] [address] Dr. Carter ChangEGFR-AF WALLISIAN>60Normal>=60The [facility] HospitalComment on above:Performed By: #### CBC #### [facility] [address] [place] [address] Dr. Raul AlcantarGFR-NON AF WALLISIAN>60Normal>=60The [facility] HospitalComment on above:Performed By: #### CBC #### [facility] [address] [place] [address] Dr. Raul PereiraGlobulin (S) [Mass/Vol]4.1 g/dLNormalThe [facility] HospitalComment on above:Performed By: #### CBC #### [facility] [address] [place] [address] Dr. Raul PereiraGlucose [Mass/Vol]86 mg/rWUqngxs33-046Hea [facility] Comment on above:Performed By: #### CBC #### [facility] [address] [place] [address] Dr. Raul PereiraPotassium [Moles/Vol]4.6 mmol/LNormal3.5-5.1The [facility] Comment on above:Performed By: #### CBC #### [facility] [address] [place] [address] Dr. Raul PereiraProtein [Mass/Vol]7.8 g/dLNormal6.4-8.2The [facility] Comment on above:Performed By: #### CBC #### [facility] [address] [address] [address] Raul PereiraSodium [Moles/Vol]137 mmol/PKzcvci632-108Glu [facility] Comment on above:Performed By: #### CBC #### [facility] [address] [address] [address] Raul PereiraUrea nitrogen [Mass/Vol]9.0 mg/dLNormal7.0-18.0The [facility] HospitalComment on above:Performed By: #### CBC #### [facility] [address] [address] [address] Raul [place] nitrogen/Creatinine [Mass ratio]15.5 mg/mgNoSuburban Community Hospital & Brentwood HospitalComment on above:Performed By: #### CBC #### [facility] [address] [address] [address] Raul Ram PREMA DOP LEG RTon 26-60-9135RV PREMA DOP LEG RTEXAMINATION: US PREMA DOP [...] Electronically authenticated by: JESSICA WINKLER Date: 2023-01-10 10:43F[facility] City HospitalCovid-19 PCR (CVDTBH)on 98-68-1752GPDL-CoV-2 (COVID-19) RNA IMELDA+probe Ql (Unsp spec)Not detectedNormalNOT DETECTEDThe [facility] Comment on above:Result Comment: This test is not yet approved or cleared by the [place] FDA. When there are no FDA-approved or cleared tests available, and other criteria are met, FDA can make tests available under an emergency access mechanism called an Emergency Use Authorization (EUA). The EUA for this test is supported by the Test Rack Operator of Health and Human Service's (HHS's) declaration [...] consistent with SARS-CoV-2.Performed By: #### CVDTBH #### [facility] [address] [place] [address] Dr. Raul PereiraCALCIUMon 03-69-3595Xxuvbmq [Mass/Vol]9.7 mg/dLNormal8.5-10.1The [facility] HospitalComment on above:Performed By: #### CVDTBH #### [facility] [address] [place] [address] Dr. Raul PereiraCREATININEon 98-30-0521Xzrmasgrav [Mass/Vol]0.53 mg/dLCritically low0.55-1.02The [facility] on above:Performed By: #### CBC #### [facility] [address] [place] [address] Dr. Raul AlcantarGFR-AF WALLISIAN>60Normal>=60The [facility] HospitalComment on above:Performed By: #### CBC #### [facility] [address] [place] [address] Dr. Raul AlcantarGFR-NON AF WALLISIAN>60Normal>=60The [facility] on above:Performed By: #### CBC #### [facility] [address] [place] [address] Dr. Raul Krishnamurthy Visiton 53-80-2331Pgzrpb-up [id number] Rhett Mejia 1960 F Date Provider Department Center 08/27/2022 MICAELA MATA [facility] SURG Second Fl No family history on file Level of Service:68079 [place] POSTOP FOLLOW UP VISIT RELATED TO ORIGINAL PX Reason for Visit and Comments: Post-op [483] - Rhett is here today for a post op visit, s/p [facility] CHOLENormalUniversAdena Fayette Medical CenterHISTOLOGY - TISSUE EXAMon [id number] AP CASE REPORTNormalUniversAdena Fayette Medical CenterComment on above:Order Comment: Pre-op diagnosis:Calculus of gallbladder without cholecystitis without obstruction [K80.20]Result Comment: Surgical Pathology Case: [id number] Authorizing Provider: Micaela Gupta MD Collected: 08/16/2022 0842 Ordering Location: [facility] Main Operating Room Received: 08/16/2022 1001 Pathologist: Maricruz Warren MD Specimen: Gallbladder, GALLBLADDERPerformed By: #### [id number] ####[facility] (BEAKER)[address] [facility], [place] [address]EZM AP CLINICAL INFORMATIONNormal [facility] County HospitalComment on above:Order Comment: Pre-op diagnosis:Calculus of gallbladder without cholecystitis without obstruction [K 80.20]Result Comment: Pre-op diagnosis: Calculus of gallbladder without cholecystitis without obstruction [K80.20] Performed By: #### [id number] ####[facility] (BEAKER)[address] [facility], [place] [address]ETR AP GROSS DESCRIPTIONA. Gallbladder.NormalUnMercy Health Willard HospitalComment on above:Order Comment: Pre-op diagnosis:Calculus of gallbladder without cholecystitis without obstruction [K80.20]Result Comment: Received in formalin , labeled Rhett L Hilary, [...] 0.1 to 0.2 cm in maximum thickness. Electrical Products Engineer sections submitted as follows: Cassette 1: Cystic duct resection margin and neck Cassette 2: Body and fundus Ankit Koroma, Pathologists' AssistantPerformed By: #### [id number] ####[facility] ([facility])[address] [place], [place] [address]TBG AP MICROSCOPIC DESCRIPTIONMicroscopic examination performedNoalUOhioHealth Van Wert HospitalComhenry ford [facility] hospital on above:Order Comment: Pre-op diagnosis:Calculus of gallbladder without cholecystitis without obstruction [K80.20]Performed By: #### [id number] ####[facility] ([facility])[address] [facility], [place] [address]FJN REPORT FINAL DIAGNOSIS NARRATIVENormalUOhioHealth Van Wert HospitalComhenry ford west [facility] hospital on above:Order Comment: Pre-op diagnosis:Calculus of gallbladder without cholecystitis without obstruction [K80.20]Result Comment: Gallbladder, cholecystectomy: - Cholelithiasis and cholesterolosis. Performed By: #### [id number] ####[facility] ([facility])[address] [place], [place] [address]CZag [id number] Attestation signed by Micaela Gupta MD at 08/16/2022 7:34 AM Attending Physician Statement I have discussed the case, including pertinent history and exam findings with Dr. Del Angel, surgical pathologist and have personally seen the patient. I agree with the assessment, plan and orders as documented. [phone] pager [phone] phone [facility] General Surgery HISTORY & PHYSICAL [...] History: Diagnosis Date Anxiety Arthritis Chronic bronchitis ([facility]) Depression DVT (deep venous thrombosis) ([facility]) Gall bladder disease GERD (gastroesophageal reflux disease) [...] Lab Results Component Value (more content not included)...[facility] 95-25-0451ZPFTJCEVOwgast. Pain minimal. DC criteria met. IV dc'd and patient getting dressed. 1155 Stable for discharge.[facility] CenterED instructions reviewed with patient and Granddaughter, allowed time for questions, copy given.[facility] Medical CenterNEASTERN NEW MEX[facility] MEDICAL CENTERNOTEReour lady of [facility] hospital rec'd and care assumed. No assessment changes. Pain minimal.[facility] CenterNOTE09[address] HospitalNOTDignity Health St[facility] [id number], LAPAROSCOPIC Operative Note Date: 08/16/2022 Location: [facility] OR Name: Rhett Mejia, : 1960, Diagnosis Pre-op Diagnosis * Calculus of gallbladder without cholecystitis without obstruction [K80.20] * History of gastric bypass [Z98.84] Post-op Diagnosis * Calculus of gallbladder without cholecystitis without obstruction [K80.20] * History of gastric bypass [Z98.84] Procedures CHOLECYSTECTOMY, LAPAROSCOPIC 62085 - [place] LAPS SURG CHOLECYSTECTOMY W/CHOLANGIOGRAPHY Surgeons [...] EXAM Micaela Gupta MD 08/16/22 0842 No [id number] Description: GALLBLADDER Staff: Racing Board Marker: Zeny De La Cruz RN Scrub Person: [...] PACU - hemodynamically stable. Condition: stable Normal [facility] County HospitalPOCT GLUCOSE METER UNSOLICITED RESULTSon 23-04-1137Eetojbg [Mass/Vol]88 mg/uADtcwpn75-177QzpktczlhxMercy Health Willard HospitalComment on above:Result Comment: epawlowPerformed By: #### [id number] #### [facility] ([facility]) [address] [place], [place] [address]KTYM SARS-COV-2 PCRon 39-83-4654ZZJ SARS-COV-2 ANTIGENNegative NormalNegativeUnMercy Health Willard HospitalComment on above:Result Comment: ID NOW COVID-19 assay [...] of Compliance, or Certificate ofAccreditation.Performed By: #### [id number] ####[facility] ([facility])[address] [place], [place] [address]Gfjtmx Onlyon 08-14-2022 Orders [id number] Rhett Mejia 1960 F Date Provider Department Center 08/14/2022 [id number], [facility] No family history on fileNormalUniversity Memorial Health [facility]1000006on [id number] after MN Must have a new car driver to take you home and someone to stay for 24 hours after surgery. No jewelry. Hold the meds we spoke about: NSAIDS Take the meds we spoke about w/a sip of water DOS: GAPAPENTIN, NEXIUM, INHALER, CYMBALTA Bring insurance card and ID. LABS AND COVID TO BE DONE IN [place].NormalUnMercy Health Willard Hospital CBC AUTO DIFFon [id number] #0.0 103/ulNormal0.0-0.1The [facility] Comment on above:Performed By: #### CBC #### [facility] [address] [address] [address] Raul PereiraBasophils/100 WBC (Bld)0.4 %Normal0.2-2.0[facility] Comment on above:Performed By: #### CBC #### [facility] [address] [place] [address] Dr. Raul Baker #0.1 103/ulNormal0.0-0.7The [facility] HospitalComment on above: Performed By: #### CBC #### [facility] [address] [address] [address] Raul Alcantarosinophils/100 WBC (Bld)1.2 %Normal0.9-7.0[facility] Comment on above:Performed By: #### CBC #### [facility] [address] [address] [address] Raul Alcantarrythrocyte distribution width (RBC) [Ratio]18.6 %Critically high 11.0-15.0The [facility] HospitalComment on above:Performed By: #### CBC #### [facility] [address] [place] [address] Dr. Raul PereiraHematocrit (Bld) [Volume fraction]39.1 %Xznumd67.0-48.0The [facility] HospitalComment on above:Performed By: #### CBC #### [facility] [address] [place] [address] Dr. Raul PereiraHemoglobin (Bld) [Mass/Vol]12.5 g/pPEymgpk97.0-16.0The [facility] HospitalComment on above:Performed By: #### CBC #### [facility] [address] [place] [address] Dr. Raul Carrington #0.03 10e3/ulNormal0.00-0.03The [facility] HospitalComment on above:Performed By: #### CBC #### [facility] [address] [place] [address] Dr. Raul Carrington %0.4 %Normal0.0-0.5The [facility] HospitalComment on above: Performed By: #### CBC #### [facility] [address] [place] [address] Dr. Raul Bautista #2.0 103/ulNormal1.2-3.8The [facility] HospitalComment on above:Performed By: #### CBC #### [facility] [address] [place] [address] Dr. Raul Espinozahocytes/100 WBC (Bld)27.2 %Kevhru46.5-60.0The [facility] HospitalComment on above:Performed By: #### CBC #### [facility] [address] [place] [address] Dr. Raul LeyvaUAL DIFF REQNONormalThe [facility] HospitalComment on above: Performed By: #### CBC #### [facility] [address] [place] [address] Dr. Raul Champion (RBC) [Entitic mass]27.2 hyTuedlj23.7-34.0The [facility] HospitalComment on above:Performed By: #### CBC #### [facility] [address] [place] [address] Dr. Raul Champion (RBC) [Mass/Vol]32.0 g/fBQnubxn05.9-35.2The [facility] HospitalComment on above:Performed By: #### CBC #### [facility] [address] [place] [address] Dr. Raul Champion (RBC) [Entitic vol]85.2 wXSaalec95.0-99.0The [facility] HospitalComment on above:Performed By: #### CBC #### [facility] [address] [address] [address] Raul Villanueva #0.7 103/ulNormal0.3-0.8The [facility] HospitalComment on above:Performed By: #### CBC #### [facility] [address] [address] [address] Raul Alfordocytes/100 WBC (Bld)9.3 %Normal1.7-12.0[facility] Comment on above:Performed By: #### CBC #### [facility] [address] [place] [address] Dr. Raul Sparks #4.4 103/ulNormal1.4-6.5The [facility] HospitalComment on above:Performed By: #### CBC #### [facility] [address] [place] [address] Dr. Raul Becerrilutrophils/100 WBC (Bld)61.5 %Xehhfq73.0-75.0The [facility] HospitalComment on above:Performed By: #### CBC #### [facility] [address] [place] [address] Dr. Raul Hackett mean volume (Bld) [Entitic vol]8.7 fLCritically low 9.5-13.5The [facility] HospitalComment on above:Performed By: #### CBC #### [facility] [address] [place] [address] Dr. Raul PereiraPLT387 103/fnEccqmz352-102Nun [facility] HospitalComment on above: Performed By: #### CBC #### [facility] [address] [place] [address] Dr. Raul PereiraRBC4.59 106/ulNormal4.20-5.40The [facility] HospitalComment on above:Performed By: #### CBC #### [facility] [address] [place] [address] Dr. Raul PereiraWBC7.2 103/ulNormal4.0-11.0The [facility] HospitalComment on above: Performed By: #### CBC #### [facility] [address] [place] [address] Dr. Raul PereiraCovid-19 PCR (CVDTB)on 07-13-6903CJZX-CoV-2 (COVID-19) RNA IMELDA+probe Ql (Unsp spec)Not detectedNormalNOT DETECTEDMercy Health St. [facility] Comment on above:Result Comment: This test is not yet approved or cleared by the [place] FDA. When there are no FDA-approved or cleared tests available, and other criteria are met, FDA can make tests available under an emergency access mechanism called an Emergency Use Authorization (EUA). The EUA for this test is supported by the [place] of Health and Human Service's (HHS's) declaration [...] consistent with SARS-CoV-2.Performed By: #### CVDTBH #### [facility] [address] [place] [address] Dr. Raul PereiraPROF CHEM 8 (BAS METB)on 63-52-3545Vkazq gap [Moles/Vol]11.5 mmol/LNormalThe [facility] HospitalComment on above:Performed By: #### CBC #### [facility] [address] [place] [address] Dr. Raul PereiraCalcium [Mass/Vol]9.5 mg/dLNormal8.5-10.1[facility] Comment on above:Performed By: #### CBC #### [facility] [address] [place] [address] Dr. Raul PereiraChloride [Moles/Vol]101 mmol/PXzfsqg51-427LxmMercy Health St. [facility] Comment on above:Performed By: #### CBC #### [facility] [address] [address] [address] Raul PereiraCO2 [Moles/Vol]29.6 mmol/FLwgngi94.0-32.0[facility] Comment on above:Performed By: #### CBC #### [facility] [address] [address] [address] Raul PereiraCreatinine [Mass/Vol]0.65 mg/dLNormal0.55-1.02The [facility] HospitalComment on above:Performed By: #### CBC #### [facility] [address] [address] [address] Raul AlcantarGFR-AF WALLISIAN>60Normal>=60The [facility] HospitalComment on above:Performed By: #### CBC #### [facility] [address] [place] [address] Dr. Raul AlcantarGFR-NON AF WALLISIAN>60Normal>=60The [facility] HospitalComment on above:Performed By: #### CBC #### [facility] [address] [address] [address] Raul PereiraGlucose [Mass/Vol]104 mg/lIGykspr98-413BmeMercy Health St. [facility] Comment on above:Performed By: #### CBC #### [facility] [address] [address] [address] Raul PereiraPotassium [Moles/Vol]4.1 mmol/LNormal3.5-5.1[facility] Comment on above:Performed By: #### CBC #### [facility] [address] [address] [address] Raul PereiraSodium [Moles/Vol]138 mmol/GKvtykc504-830Zjv [facility] Comment on above:Performed By: #### CBC #### [facility] [address] [address] [address] Raul PereiraUrea nitrogen [Mass/Vol]11.0 mg/dLNormal7.0-18.0The [facility] HospitalComment on above:Performed By: #### CBC #### [facility] [address] [place], [place] [address] Dr. Raul PereiraUrea nitrogen/Creatinine [Mass ratio]16.9 mg/mgNormSt. Mary's Medical Center, Ironton CampusComment on above:Performed By: #### CBC #### [facility] [address] [place], [place] [address] Dr. Raul PereiraOffice Visiton 67-76-4629Botiyr-up [id number] Rhett Mejia 1960 F Date Provider Department Center 08/06/2022 454-ALONSO MICAELA [facility] SURG Second Fl No family history on file Level of Service:06367 [place] OFFICE/OUTPATIENT ESTABLISHED LOW MDM 20-29 MIN Reason for Visit and Comments: Consult [484] - Rhett is here for a gallbladder consult. Rhett also c/o swelling in right leg with pain in calf.NormalUnMercy Health Willard HospitalPROTIME-INRon 79-91-0970ZUG IN PPP BY COAGULATION ASSAY0.89Low0.90-1.10 [facility] HospitalComment on above:Result Comment: ACCCP RECOMMENDED INR FOR [...] OPTIMAL THERAPEUTIC RANGE. CHEST 1995;108:231S-246S.Performed By: #### [id number] #### [facility] ([facility]) [address] [place], [place] [id number] TIME (PT) IN PPP BY COAGULATION ASSAY12.1 SecondsLow 12.3-14.8[facility] County HospitalComment on above:Performed By: #### [id number] #### [facility] ([place]) [address] [address] ABD/PELVIS WO CONon 09-90-2349IM ABD/PELVIS WO CON EXAMINATION: CT ABD/PELVIS WO [...] Electronically authenticated by: JESSICA WINKLER Date: 2022-07-24 17:21[facility] HEPATOBILIARY SCAN W EFon 50-21-5249KB HEPATOBILIARY SCAN W EFEXAMINATION: NM HEPATOBILIARY SCAN [...] Electronically authenticated by: MEAGHAN SKINNER Date: 2022-07-18 10:22NoMercy Health [facility] Hospital AUTO DIFFon 90-63-2355SSTP #0.0 103/ulNormal0.0-0.1The [facility] HospitalComment on above:Performed By: #### CBC #### [facility] [address] [address] [address] Raul PereiraBasophils/100 WBC (Bld)0.5 %Normal0.2-2.0[facility] Comment on above:Performed By: #### CBC #### [facility] [address] [place] [address] Dr. Raul Baker #0.1 103/ulNormal0.0-0.7The [facility] HospitalComment on above: Performed By: #### CBC #### [facility] [address] [address] [address] Raul Alcantarosinophils/100 WBC (Bld)0.9 %Normal0.9-7.0[facility] Comment on above:Performed By: #### CBC #### [facility] [address] [place] [address] Dr. Raul Alcantarrythrocyte distribution width (RBC) [Ratio]20.2 %Critically high 11.0-15.0The [facility] HospitalComment on above:Performed By: #### CBC #### [facility] [address] [address] [address] Raul PereiraHematocrit (Bld) [Volume fraction]41.1 %Mkzmqt70.0-48.0The [facility] HospitalComment on above:Performed By: #### CBC #### [facility] [address] [address] [address] Raul PereiraHemoglobin (Bld) [Mass/Vol]13.2 g/fXRemhsa62.0-16.0The [facility] HospitalComment on above:Performed By: #### CBC #### [facility] [address] [address] [address] Raul Carrington #0.05 10e3/ulCritically high0.00-0.03[facility] Comment on above:Performed By: #### CBC #### [facility] [address] [address] [address] Raul Carrington %0.6 %Critically high0.0-0.5The [facility] HospitalComment on above:Performed By: #### CBC #### [facility] [address] [address] [address] Raul Bautista #1.4 103/ulNormal1.2-3.8The [facility] HospitalComment on above:Performed By: #### CBC #### [facility] [address] [address] [address] Raul Sofiamphocytes/100 WBC (Bld)17.3 %Critically low20.5-60.0The [facility] HospitalComment on above:Performed By: #### CBC #### [facility] [address] [address] [address] Raul LeyvaUAL DIFF REQNONormalThe [facility] HospitalComment on above: Performed By: #### CBC #### [facility] [address] [address] [address] Raul Mack (RBC) [Entitic mass]27.3 viAfvmrn35.7-34.0The [facility] HospitalComment on above:Performed By: #### CBC #### [facility] [address] [place] [address] Dr. Raul Champion (RBC) [Mass/Vol]32.1 g/nJJrsspf55.9-35.2The [facility] HospitalComment on above:Performed By: #### CBC #### [facility] [address] [place] [address] Dr. Raul ChampionV (RBC) [Entitic vol]84.9 hRUxmsye48.0-99.0The [facility] HospitalComment on above:Performed By: #### CBC #### [facility] [address] [place] [address] Dr. Raul Villanueva #0.8 103/ulNormal0.3-0.8The [facility] HospitalComment on above:Performed By: #### CBC #### [facility] [address] [place] [address] Dr. Raul Alfordocytes/100 WBC (Bld)10.0 %Normal1.7-12.0[facility] Comment on above:Performed By: #### CBC #### [facility] [address] [place] [address] Dr. Raul Sparks #5.8 103/ulNormal1.4-6.5The [facility] HospitalComment on above:Performed By: #### CBC #### [facility] [address] [place] [address] Dr. Raul Becerrilutrophils/100 WBC (Bld)70.7 %Drpatb19.0-75.0The [facility] HospitalComment on above:Performed By: #### CBC #### [facility] [address] [place] [address] Dr. Raul [address] mean volume (Bld) [Entitic vol]9.1 fLCritically low 9.5-13.5The [facility] HospitalComment on above:Performed By: #### CBC #### [facility] [address] [place] [address] Dr. Raul PereiraPLT358 103/vfPlegfj129-871Nny [facility] HospitalComment on above: Performed By: #### CBC #### [facility] [address] [place] [address] Dr. Raul PereiraRBC4.84 106/ulNormal4.20-5.40[facility] [place] [facility] on above:Performed By: #### CBC #### [facility] [address] [place] [address] Dr. Raul PereiraWBC8.1 103/ulNormal4.0-11.0The [facility] HospitalComment on above: Performed By: #### CBC #### [facility] [address] [place] [address] Dr. Raul PereiraLIPASEon 39-85-8624Erhwvv [Catalytic activity/Vol]47.0 U/L Critically low73.0-393.0The [facility] HospitalComment on above:Performed By: #### CBC #### [facility] [address] [place] [address] Dr. Raul HorvathF 14(COMP METB)on 15-02-7762Rlihpic [Mass/Vol]3.6 g/dLNormal 3.4-5.0The [facility] HospitalComment on above:Performed By: #### CBC #### [facility] [address] [place] [address] Dr. Raul PereiraAlbumin/Globulin [Mass ratio]1.0 {ratio}NormalThe [facility] HospitalComhenry ford [facility] hospital on above:Performed By: #### CBC #### [facility] [address] [place] [address] Dr. Raul Osborn [Catalytic activity/Vol]88 U/BMkbuav28-032Fxr [facility] HospitalComhenry for[facility] on above:Performed By: #### CBC #### [facility] [address] [place] [address] Dr. Raul Gomez [Catalytic activity/Vol]16 U/FHfuour66-63Dqn [facility] HospitalComment on above:Performed By: #### CBC #### [facility] [address] [place] [address] Dr. Raul Wilde gap [Moles/Vol]13.2 mmol/LNormalMercy Health St. [facility] Comment on above:Performed By: #### CBC #### [facility] [address] [address] [address] Raul PereiraAST [Catalytic activity/Vol]15 U/JGygrvi27-14Psp [facility] HospitalComment on above:Performed By: #### CBC #### [facility] [address] [address] [address] Raul PereiraBilirubin [Mass/Vol]0.2 mg/dLNormal0.2-1.0The [facility] Comment on above:Performed By: #### CBC #### [facility] [address] [place] [address] Dr. Raul PereiraCalcium [Mass/Vol]9.5 mg/dLNormal8.5-10.1[facility] Comment on above:Performed By: #### CBC #### [facility] [address] [address] [address] Raul PereiraChloride [Moles/Vol]100 mmol/MNsqckz31-718UvwMercy Health St. [facility] Comment on above:Performed By: #### CBC #### [facility] [address] [place] [address] Dr. Raul PereiraCO2 [Moles/Vol]28.0 mmol/ZNizcbq70.0-32.0[facility] Comment on above:Performed By: #### CBC #### [facility] [address] [address] [address] Raul PereiraCreatinine [Mass/Vol]0.78 mg/dLNormal0.55-1.02The [facility] HospitalComment on above:Performed By: #### CBC #### [facility] [address] [place] [address] Dr. Raul AlcantarGFR-AF WALLISIAN>60Normal>=60The [facility] HospitalComment on above:Performed By: #### CBC #### [facility] [address] [address] [address] Raul AlcantarGFR-NON AF WALLISIAN>60Normal>=60The [facility] HospitalComment on above:Performed By: #### CBC #### [facility] [address] [address] [address] Raul PereiraGlobulin (S) [Mass/Vol]3.6 g/dLNormSt. Mary's Medical Center, Ironton CampusComment on above:Performed By: #### CBC #### [facility] [address] [address] [address] Raul PereiraGlucose [Mass/Vol]86 mg/qCIkgecv23-104EfaMercy Health St. [facility] Comment on above:Performed By: #### CBC #### [facility] [address] [address] [address] Raul PereiraPotassium [Moles/Vol]4.2 mmol/LNormal3.5-5.1[facility] Comment on above:Performed By: #### CBC #### [facility] [address] [address] [address] Raul PereiraProtein [Mass/Vol]7.2 g/dLNormal6.4-8.2[facility] Comment on above:Performed By: #### CBC #### [facility] [address] [address] [address] Raul PereiraSodium [Moles/Vol]137 mmol/AKjhwuf080-171PdyMercy Health St. [facility] Comment on above:Performed By: #### CBC #### [facility] [address] [address] [address] Raul PereiraUrea nitrogen [Mass/Vol]11.0 mg/dLNormal7.0-18.0[facility] St. Elizabeth Youngstown HospitalComment on above:Performed By: #### CBC #### [facility] [address] [address] [address] Raul PereiraUrea nitrogen/Creatinine [Mass ratio]14.1 mg/mgNormSt. Mary's Medical Center, Ironton CampusComment on above:Performed By: #### CBC #### [facility] [address] [address] [address] Raul PereiraUS SINGLE QUAD RT UPPERon 77-10-7924UN SINGLE QUAD RT UPPEREXAM: US SINGLE QUAD [...] Electronically authenticated by: MICAH ROSAS Date: 2022-07-13 16:33NoSuburban Community Hospital & Brentwood HospitalCovid-19 PCR (CVDTB)on 35-80-5730BUOK-CoV-2 (COVID-19) RNA IMELDA+probe Ql (Unsp spec)Not detectedNormalNOT DETECTEDThe [facility] Comment on above:Result Comment: This test is not yet approved or cleared by the [place] FDA. When there are no FDA-approved or cleared tests available, and other criteria are met, FDA can make tests available under an emergency access mechanism called an Emergency Use Authorization (EUA). The EUA for this test is supported by the [place] of Health and Human Service's (HHS's) declaration [...] consistent with SARS-CoV-2.Performed By: #### CVDTBH #### [facility] [address] [address] [address] Carter ChangEndoscopy Reporton 67-31-7333Hbzwcsvru ReportMR#: [id number] Clinic Pt. Name: Rhett Mejia Surgery Date: 02/24/2018 Room #: Z0 Date of : 1960 PROCEDURE NOTEATTENDING: Xin Beasley M.D.PROCEDURE PERFORMED: EGD.SLEEP TECHNICIAN: Dr. Noland.SEDATION:1. Versed 10 mg.2. Fentanyl 250 [...] 02/24/2018/09:53 Kiara/Ruddy Noland M.D.Date Trans: 02/24/2018 12:13 P/Aditya_JN:[id number]: Napoleon Lopez M.D. [address], [facility] [id number] Health St[address] Elizabeth Boardman HospitalEndoscopy ReportMR#: [id number] Clinic Pt. Name: Rhett Mejia Surgery Date: 02/24/2018 Room #: Z0 Date of : 1960 PROCEDURE NOTEATTENDING: Xin Beasley M.D.PROCEDURE PERFORMED: Colonoscopy and polypectomy.SLEEP TECHNICIAN: Ruddy Noland M.D.SEDATION: Versed 10 mg and [...] 02/24/2018/09:57 Kiara/Ruddy Noland M.D.Date Trans: 02/24/2018 10:12 Kiara/Aditya_JN:[id number]: Napoleon Lopez M.D. [address] [facility] Kiara [facility] [address]LrptkvAljACMC Healthcare System Glen[facility]igh GLUCOSE LABon 79-50-7250Mifpcje mass conc87 mg/aWQaqldd51-614Ggz Wood County HospitalComment on above:Performed By: #### [id number] ####[id number] [place] [address], [place] Vital Signs Date TimeVital SignValuePerforming FuxclxzevCyjmvtyd51-26-5341 12:04-0400Body wbxazp346.29 cmNapoleon Lopez MD Work Phone: [phone]08-12-2025 12:04-0400 Body mass index (BMI) [Ratio]24.9 kg/j3TmiidlgNapoleon Lopez MD Work Phone: [phone]08-12-2025 12:04-0400 Body kihmjz17.86 kgNapoleon Lopez MD Work Phone: [phone] [place], [place] [address]NEGATED: Highlighted rowBMI (Body Mass Index)[facility]trNEGATED: Highlighted rowBody TemperatureGene [facility] NEGATED: Highlighted rowBody weightMercy Health Allen Hospital [facility]tr NEGATED: Highlighted rowBP DiastolicGene [facility] NEGATED: Highlighted rowBP SystolicGene [facility] NEGATED: Highlighted rowHeightGene [facility] CtrNEGATED: Highlighted rowPulse (Heart Rate)[facility] NEGATED: Highlighted rowPulse OximetryMercy Health Allen Hospital Ctr NEGATED: Highlighted rowRespiratory RateMercy Health Allen Hospital Ctr Encounters Encounter DateEncounter TypeCare ProviderFacilityStart: 18-80-9426uqzoinwfch Napoleon LopezFacility:[facility] Hospitaltart: 08-16-2025 End: 35-37-1211Jcymfck encounter procedureConor Moody MD-[facility] Work Phone: Start: 08-16-2025 End: 80-00-5191zxziipgekmXsjkbrf M Hoy MD Work Phone: [facility] Work Phone: Start: 07-19-2025 End: 86-62-2589lzewmwkcwbOgftgfl M Hoy MD Work Phone: [phone] [place] [address] Work Phone: Start: 07-19-2025 End: 14-69-7786Ogzakhd encounter procedureConor Moody MD-[facility] Work Phone: Start: 07-19-2025 End: 57-79-1271Dtybrnz encounter procedureThbin Kiara Rosas Start: 07-19-2025 End: 91-10-6049valebromsfTcgxpha M Hoy MD Work Phone: [facility] Work Phone: Start: 06-28-2025 End: 97-48-1013bibpcpbmjfIdfttxb M Hoy MD Work Phone: [facility] Work Phone: Start: 06-28-2025 End: 20-10-1999Jdoxrye encounter procedureConor Moody MD-[facility] Work Phone: Start: 06-16-2025 End: 62-97-0059Hxjoctmkz department patient visitMERRILLVILLE [facility] Hospitaltart: 10-25-2024 End: 46-77-0069doatrqwptoTguvana Vytautas Giedraitis MDFacility:PM Kai Start: 10-18-2024 End: 57-64-7664dzcpudhbtpJqedkyr Vytautas Giedraitis MDFacility:[facility] Start: 10-11-2024 End: 78-50-7842fbhdeegmiaEnjjooe Vytautas Giedraitis MDFacility:[facility] Start: 09-27-2024 End: 37-62-9348janckicpygDhkkcvk Vytautas Giedraitis MDFacility:PM [place] Start: 09-06-2024 End: 92-84-4442fxzbgonfyuNaqokfx Vytautas Giedraitis MDFacility:[facility] Start: 08-16-2024 End: 02-83-3244vrohxlmhxzSskkaht Vytautas Giedraitis MDFacility:[facility] Start: 08-02-2024 End: 09-72-1665hqegpmhvjoLwyjitw Vytautas Giedraitis MDFacility:[facility] Start: 06-21-2024 End: 81-39-0590pqjodtvudnVhpzapc Vytautas Giedraitis MDFacility:PM [place] Start: 23-13-8698xvdxkjgolbIT NAPOLEON HOY .Facility:Q7Zeyeu: 03-21-2023 End: 63-72-3419ayhfsbidorJMHQVJO MARCY .Facility:D2Lvbry: 03-05-2023 End: 71-77-2447jxqftzqxgiZZYOAZGWVSBP LAKSHMIPATHY .Facility:U2Qqnzz: 02-20-2023 End: 42-06-6836sfxfquvpddHI NAPOLEON HOY .Facility:T6Nmife: 02-18-2023 End: 75-91-2560ylsambuwyyYU JESSICA WINKLERFacility:Q5Sitoa: 02-13-2023 End: 79-20-9409prmukyjpqyEV NAPOLEON HOY .Facility:D7Eogvs: 02-12-2023 End: 60-66-6395skxkpxixlgOI NAPOLEON HOY .Facility:Q4Wavdy: 20-02-9352Kxpdsndam for general adult medical examination without abnormal findingsDR NAPOLEON HOY . [facility]: 01-31-2023 End: 52-97-2890Jknfzxjjd for general adult medical examination without abnormal findingsDR NONE LISTED REQUESTFacility:P4Noxrr: 01-31-2023 End: 09-39-6373uskfefjcpqLG NONE LISTED REQUESTFacility:W8Fqhbm: 01-30-2023 End: 37-95-9547snlfdcbgatVC NAPOLEON HOY .Facility:C9Beorz: 01-28-2023 End: 40-74-8064quuqmqhablDN BETHEL S LITTLE .Facility:I0Iaqtd: 01-16-2023 End: 56-61-8933jkcjkqdtouLM NAPOLEON HOY .Facility:Z8Mpdbj: 01-13-2023 End: 73-28-1055wdkefeofeyQW NAPOLEON HOY .Facility:J3Qthgm: 01-10-2023 End: 85-33-9224yefkfepbylUL NAPOLEON HOY .Facility:O4Bhccp: 12-17-2022 End: 83-37-6267btsfsnohxcEY BETHEL S LITTLE .Facility:F3Dkexs: 40-46-2269Qbzkzudpf for preprocedural laboratory examinationDR BETHEL LITTLE .[facility] Start: 12-13-2022 End: 25-72-3906uyrvymtporRH BETHEL LITTLE .Facility:S6Gmxgv: 12-13-2022 End: 04-84-8085Rgpjespym for preprocedural laboratory examinationDR BETHEL LITTLE .Facility:K7Rufnb: 12-04-2022 End: 97-19-1160detoaznecqUQMH RAMIREZ .Facility:I0Irboj: 12-03-2022 End: 01-52-6481ztesaethusTC NAPOLEON LOPEZ .Facility:O6Wvzve: 11-15-2022 End: 91-15-9436slpbflmjunVUSK SOLIS .Facility:F4Ixaii: 08-29-2022 End: 10-89-8495jjwfmmlaqxLEHK SOLIS .Facility:W7Uzecs: 08-27-2022 End: 00-08-8655xvwhfuhhprQWWCODEMercy Health St. [facility] Hospitaltart: 08-16-2022 End: 34-61-8652bhdhtvgungLVKRMIWMercy Health St. [facility] Hospitaltart: 79-86-8216Hhiyxjulo for other preprocedural examinationDR MICAELA GUPTAPremier Health Miami [facility] Hospital Northtart: 60-68-6821Rxfodcqaj for preprocedural laboratory examinationDR MICAELA GUPTAPremier Health [facility] Hospital Northtart: 08-13-2022 End: 61-60-9236zgeiqbrapwLN MICAELA GUPTAFacility:Q6Fkqml: 08-13-2022 End: 82-70-3489Srapbvyjs for other preprocedural examinationDR MICAELA GUPTA Facility:A8Xixff: 08-06-2022 End: 14-00-5266reirytmzakKOBHYFIMercy Health St. [facility] Hospitaltart: 08-06-2022 End: 29-74-3198slqaxoifjfLNHXRISMercy Health St. [facility] Hospitaltart: 71-69-9950kofnizncdsWPEDEGJMercy Health St. [facility] Hospitaltart: 07-24-2022 End: 14-09-9927tismykhjhaXI NAPOLEON HOY .Facility:Y9Qqvzx: 07-18-2022 End: 69-44-8660evodhluywwML NAPOLEON HOY .Facility:M8Cnuxr: 07-13-2022 End: 29-32-5264spjcedzlzbJD NAPOLEON HOY .Facility:N2Flzlm: 07-09-2022 End: 56-28-9582zeiazszhyiGM BETHEL S LITTLE .Facility:R5Abkft: 07-05-2022 End: 53-47-9619brnelycunzHN BETHEL S LITTLE .Facility:M1Xzbku: 06-12-2022 End: 49-71-3283dbvpglkifxDG BETHEL S LITTLE .Facility:N4Fcnth: 05-15-2022 End: 35-47-2195oefpcigwxdHD BETHEL S LITTLE .Facility:U8Kfwbq: 05-06-2022 ambulatoryDR NAPOLEON HOY .Facility:T7Oybod: 02-24-2018 End: 05-73-0845VfdhmqvvujIZZ T NAWRASFacility:UTMCStart: 10-19-2014 End: 38-89-1693Wsstcrs encounter procedureMer[facility] Health [facility]tr Start: 12-22-2013 End: 50-73-9050Bzxtkbrr ReferredGene [facility] Start: 10-12-2001 End: 11-57-8257Gooszzr encounter procedureGene [facility] Start: 09-01-2001 End: 72-36-1736Rzszwwq encounter procedureGene [facility] Start: 08-26-2001 End: 84-36-7052Ozizfcu encounter procedureGene [facility] Start: 03-21-1999 End: 05-45-3697Pfyamhllsr and management of inpatientGene [facility] Start: 09-07-1997 End: 51-60-1397Hbcqlyupp to day surgeryGene [facility] Start: 07-21-1997 End: 91-62-6163Lxbacsygg department patient visitGene [facility] Procedures DateProcedureProcedure DetailPerforming ClinicianStart: 13-32-5005Qdtrr X-ray of right calcaneumDochristiana Lopez MD Work Phone: Start: 06-26-4762Drthw X-ray of right calcaneumNapoleon Lopez MD Work Phone: Start: 84-71-7474Yddkz X-ray of right calcaneumNapoleon Lopez MD Work Phone: Start: 43-68-5232Earlu flx w/removal lesion by hot bx Delma BEASLEY Plan of Treatment DateCare ActivityDetailAuthorStart: 90-57-5822Jbyovev [facility] Work Phone: Start: 21-38-2439Kqpys X-ray of right calcaneumXR calcaneus RT min 2[facility]: 58-46-7762TT [facility]caneus [facility] right [facility]: 96-34-9026Btysr X-ray of right calcaneumXR calcaneus RT min 2[facility] Start: 00-94-3782NM Calcaneus - right [facility] Start: 95-52-3849Vqckw X-ray of right calcaneumXR calcaneus RT min 2[facility]art: 66-05-2580IC Calcaneus - right [facility] CenterPatient [facility] Work Phone: Payers DatePayer CategoryPayerPolicy [id number] [id number] 1960Self-pay1960Self-pay [id number] 2.16.840.1.300346.3.579.2.04820-69-1823Wrgdegs9039205 2.16.840.1.421947.3.579.2.20325-26-2471Yivelvm1683272 2.16.840.1.339863.3.579.2.24595-02-6040Naxonnx5443746 2.16.840.1.087699.3.579.2.74166-26-4061Kpdmcqf2650366 2.16.840.1.770257.3.579.2.94427-62-6188Lelhjyc9762028 2.16.840.1.918391.3.579.2.57845-57-6886Rttqeyu9034779 2.16.840.1.016023.3.579.2.25591-96-1914Faivjpq4575023 2.16.840.1.391288.3.579.2.87584-09-8896Zzfmoas2375213 2.16.840.1.069522.3.579.2.12115-88-8811Ivzcztu3082250 2.16.840.1.913481.3.579.2.68567-43-2673Jjfliai4654608 2.16.840.1.664455.3.579.2.55685-64-2345Ixsskgd6720971 2.16.840.1.375138.3.579.2.56316-46-4265Tfrmqor1867357 2.16.840.1.871267.3.579.2.54508-15-6056Ihxbkbz1928017 2.16.840.1.627234.3.579.2.46277-95-4554Ruligag3330252 2.16.840.1.761042.3.579.2.50318-22-7224Efuzvyn2217231 2.16.840.1.607709.3.579.2.84017-40-1154Bpecnmw0487019 2.16.840.1.954887.3.579.2.01211-02-6785Cgrwtss2088298 2.16.840.1.478304.3.579.2.34908-04-3380Auuqoux8760839 2.16840.1.488900.3.579.2.66525-71-4304Zgzjplp2592950 2.16840.1.350096.3.579.2.82741-33-6054Hbbpynp3781445 2.16840.1.603842.3.579.2.13273-11-8134Hdsdfee0905417 2.16840.1.447703.3.579.2.00004-30-6527Jdkvzpx1699465 2.16840.1.579323.3.579.2.35948-84-6310Ppwuezh2135617 2.16840.1.442597.3.579.2.89878-95-9533Dtkkmoj5964268 2.16840.1.797248.3.579.2.68365-94-8661Vbiddjj7372451 2.16840.1.695227.3.579.2.29295-50-3253Tlbzkct3957480 2.16.840.1.245747.3.579.2.99924-98-3442Klupaxm2402113 2.16.840.1.660071.3.579.2.90978-52-1701Gnsdeds8477328 2.16840.1.210827.3.579.2.39257-65-4391Xxtiufe841131546 2.0.1.921838.3.579.2.02123-42-3427Ypbvvuj792134972 2.840.1.814843.3.579.2.69913-02-8456Unlqljv695532297 2..1.093153.3.579.2.99915-69-3678Dethkom938659770 2..1.711487.3.579.2.48517-81-5099Zzwfciz569335901 2..1.744041.3.579.2.38730-21-8641Xxsibsp438445164 2..1.824643.3.579.2.04867-01-6422Dndxyzt097931863 2..1.982035.3.579.2.71783-06-5334Uiasppo532018885 2..1.515061.3.579.2.07584-81-3616Pfnaggt840438994 2..1.466465.3.579.2.1286Medicare292629019A 42owr7e6-tx53-81n8-34f5-bkt30v9fy204Iygahdn6502181 2.0.1.674736.3.579.2.593 Uuwypuu53265542 2..1.207335.3.579.2.366Beesqmw76874485 2.0.1.964885.3.579.2.212Jfxqiuz23003861 2.0.1.054803.3.579.2.531 Cjmethr34553249 2.0.1.751731.3.579.2.531 Social History DateTypeDetailFacilityStart: 71-61-2373Jxqraco smoking status NHISSmokes tobacco daily (finding)[facility] HospitalexFemale (finding)[facility] Hospitaltart: 45-46-7566[facility] Clinical Notes 05-15-2022 to 08-16-2025 Note Date & NmsuJezyYrgpiuus58-35-6673 Hospital Discharge instructionsAmbulatory Orders* Referral to Wound Care Time Frame: 08/16/25, Location: None Selected [facility] Work Phone: 1([phone]) 395-867008-12-2025 Evaluation note* Diagnosis Onset Date Resolution Status Admit Date Leg wound, left acuteAugust 2024 11:31amNondisplaced fracture of body of right calcaneus, initial encounter for cloacuteAugust 2024 11:31am [facility] Work Phone: 1(908) 731-895708-12-2025 Evaluation note* Diagnosis Onset Date Resolution Status Admit Date Leg wound, left acuteAugust 2024 11:31amNondisplaced fracture of body of right calcaneus, initial encounter for cloacuteAugust 2024 11:31amLeg wound, leftacute July 19, 2025 9:21amNondisplaced fracture of body of right calcaneus, initial encounter for cloacuteSeptember 2024 9:21am [facility] Work Phone: 1([phone]) 501-823008-12-2025 Evaluation note* Diagnosis Onset Date Resolution Status Admit Date Leg wound, left acuteAugust 2024 11:31amNondisplaced fracture of body of right calcaneus, initial encounter for cloacuteAugust 2024 11:31amLeg wound, leftacute July 19, 2025 9:21amNondisplaced fracture of body of right calcaneus, initial encounter for cloacuteSeptember 2024 9:21amLeg wound, leftacute August 16, 2025 10:23amNondisplaced fracture of body of right calcaneus, initial encounter for cloacuteSeptember 2024 10:23am [facility] Work Phone: 1(117) 444-312407-31-2025 NoteCT THORACIC RECONSTRUCTION Procedure: CT THORACIC RECONSTRUCTION [...] by Michele Brown MD on 06/16/2025 7:31 [facility] 02-18-2023 NoteCONSULTATION CONSULTATION DATE: 02/18/2023 TO: [...] our patients to inform us about any avdl-ezf-kpbfuyj medications or herbal remedies/nutritional supplements/alternative remedies. 2. [...] treatment options with their primary care provider.[facility] HospitalZxbaxjoq49-74-3867 Note CONSULTATION CONSULTATION DATE: 01/16/2023 HISTORY: This [...] followed up in the clinic post epidural.[facility] HospitalDmyfmgds70-31-7118 Note CONSULTATION CONSULTATION DATE: 12/04/2022 HISTORY OF [...] up in the office after the procedure.[facility] HospitalVttuhzku98-35-7138 Note CONSULTATION PROCEDURE DATE: 11/15/2022 PREOPERATIVE DIAGNOSIS: [...] in the office following her RFA procedure.[facility] HospitalGlatmxqy68-94-8146 NoteCONSULTATION CONSULTATION DATE: 11/15/2022 HISTORY OF PRESENT [...] supportive measures such as heat and stretches.[facility] HospitalZccfsbvd08-77-5042 NoteCONSULTATION PROCEDURE DATE: 08/29/2022 PREOPERATIVE DIAGNOSIS: Right [...] fan-like pattern. Patient tolerated the procedure well.[facility] 08-29-2022 NoteCONSULTATION CONSULTATION DATE: 08/29/2022 HISTORY [...] followed up in the office post procedure.[facility] HospitalLqxajtyf37-50-5571 NoteCONSULTATION CONSULTATION DATE: 08/29/2022 ADDENDUM: Addendum to peer plan: We will repeat radiofrequency ablation starting on the right side and subsequently moving to the left at T11, T12 and L1, L2.[facility] HospitalDorxgwnw32-17-7166 NoteSubjective Patient ID: Rhett Mejia is a [...] the past 36 hour(s)). No follow-ups on file.[facility]09-30-2022 NotePatient: Rhett Mejia Procedure Summary Date: 08/16/22 Room / Location: [facility]PER[facility] 01 / [facility] Operating Room Anesthesia Start: 734 Anesthesia [...] were no known notable events for this encounter.[facility]09-30-2022 NoteAirway Date/Time: 08/16/2022 7:44 AM Urgency: elective Airway not difficult General Information and Staff Patient location during procedure: OR Anesthesiologist: Cassi Velez MD Resident/SENIOR INFORMATION SECURITY ENGINEER/CAA: LEONARD Canales Performed: resident/SENIOR INFORMATION SECURITY ENGINEER/CAA Indications and Patient Condition Indications for airway [...] before airway management; Dentures to Circ RN [facility]09-30-2022 NotePatient: Rhett Mejia Procedure Information Date/Time: 08/16/2230 Procedure: CHOLECYSTECTOMY, LAPAROSCOPIC, WITH INTRAOPERATIVE CHOLANGIOGRAM, WITH LAPAROTOMY IF INDICATED REQ BRADEREJE OR MANDO HUERTA MAUK, WOOD[place] - C-ARM AVAIL STAFF REQUESTS: MANDO DE LA CRUZ AND SHAHID Location: [facility] 01 / [facility] Operating Room Surgeons: Micaela Gupta MD [...] products. Plan discussed with CAA. Additional Equipment RequestsUnMer[facility]09-20-2022 Note Subjective Patient ID: Rhett Mejia is [...] the past 36 hour(s)). No follow-ups on file.[facility]09-20-2022 Note Subjective Patient ID: Rhett Mejia is [...] the past 36 hour(s)). No follow-ups on file.[facility]07-27-2022 Note CONSULTATION PROCEDURE DATE: 06/12/2022 PREOPERATIVE DIAGNOSIS: [...] pattern. The patient tolerated the procedure well.[facility] HospitalXtdspgst46-06-1749 NoteCONSULTATION CONSULTATION DATE: 06/12/2022 HISTORY OF PRESENT [...] she agrees to the plan of care.[facility] HospitalQqndixcq69-00-4564 NoteCONSULTATION CONSULTATION DATE: 05/15/2022 HISTORY OF PRESENT [...] and Approved by: RUBY RAMIREZ . 05/16/2022 13:38:00[facility]06-29-2022 NoteCONSULTATION PROCEDURE DATE: 05/15/2022 PREOPERATIVE DIAGNOSIS: Right [...] and Approved by: RUBY RAMIREZ . 05/16/2022 13:38:00[facility] HospitalEvaluation note* Diagnosis Onset Date Resolution Status Admit Date Leg wound, left acuteAugust 2024 11:31amNondisplaced fracture of body of right calcaneus, initial encounter for cloacuteAugust 2024 11:31am [facility] Work Phone: Hospital Discharge instructionsAmbulatory Orders* Referral to Wound Care Time Frame: 08/16/25, Location: None Selected [facility] Work Phone: Reason for referral (narrative)No reason for referral information availableMercy Health [facility] Hospital Work Phone: Summary Purpose Family History No Family History Records FoundNo Family History Records FoundNo Family History Records FoundNo Family History Records FoundNo Family History Records FoundNo Family History Records Found Advance Directives No Advanced Directives Records Found Advance Directive Response Recorded Date/ Time Advance Directives No April 20 11:43pm Chief Complaint and Reason for Visit [...] 11:31am Chief Complaint Admit Date CONSULT DR JOHN OLIVAREZ HEEL FX WX XR/CT PROME DICA June [...] 9:21am Chief Complaint Admit Date CONSULT DR JOHN OLIVAREZ HEEL FX WX XR/CT PROME DICA June [...] and content) DATE CREATED AUTHOR 05/07/2018 [facility] DATE CREATED AUTHOR AUTHOR'S ORGANIZ ATION 09/26/2022 [facility] DATE CREATED AUTHOR AUTHOR'S ORGANIZ ATION 03/28/[address] [facility] DATE CREATED AUTHOR AUTHOR'S ORGANIZ ATION 11/08/2024 [facility] DATE CREATED AUTHOR AUTHOR'S ORGANIZ ATION 06/18/2025 [facility] DATE CREATED AUTHOR AUTHOR'S ORGANIZ ATION 09/28/2025 [facility] Care Teams (unrecognized sec tion and content) Team Status: Active Member Role Status Matias Lopez MD Primary Care Provider Active Team Status: Inactive Member Role Status Matias Lopez MD Primary Care Provider Active Start: June 28, 2025 End: June 28, 2025Carmen Coppola ProviderActiveStart: June 28, 2025 End: June 28, [...] Active Start: July 19, 2025 End: July 19Ashwin Wallaceending ProviderActiveStart: July 19, 2025 End: July 19, 2025 Team Status: Inactive Member Role Status Dates Conor Moody MD Attending Provider Active Star t: July 19, 2025 End: July 19, 2025DoRachael Borgesjorge albertoallison Care ProviderActiveStart: July 19, 2025 End: July 19, 2025 Team Status: Active Member Role Status Dates Conor Moody MD Attending Provider Active Star t: August 16, 2025 Janell Mijares Care ProviderActiveStart: August 16, 2025 Team Status: Inactive Member Role Status Dates Napoleon Lopez MD Primary Care Provider Active Start: August 16, 2025 End: August 16Ashwin Wallaceending ProviderActiveStart: August 16, 2025 End: August 16, 2025 Team Status: Inactive Member Role Status Dates Conor Moody MD Attending Provider Active Star t: August 16, 2025 End: August 16, 2025DoJOSEPHINE Borgeslarissaadeline Care ProviderActiveStart: August 16, 2025 End: August [...] BE BASED ON THE PRIMARY CLINICAL RECORDS. [employer] [facility]. provides no warranty or guarantee of the accuracy or completeness of information in this document.
--- OUTSIDE RECORDS SUMMARY | 2025-10-15 16:10 | XMS_ITS | Clinical Summary ---
Author Organization [facility] Address [address] [place] [address] Care Team Providers Care Copy Reader Name Role Phone Ke Rahman MD Primary Care Provider [phone] Allergies Active AllergyReactionsCriticalityNoted DateCommentsIodinated Contrast Media 11/04/2014 Other reaction(s): other Afivap4811/04/2014 Other reaction(s): other Latex11/04/2014 Other reaction(s): other Njlvewbglb69/19/2014 Other reaction(s): other Eyztubxbgbg41/19/2014 Other reaction(s): other Povidone-Qbcatd5611/04/2014 Other reaction(s): other Soy8557Xmqalla63/19/2014 Other reaction(s): other Medications MedicationSigDispense QuantityRefillsLast FilledStart [...] capsule every day by oral route.Active HYDROcodone-acetaminophen (Ankeny) 5-325 mg tablet Active nortriptyline (Pamelor) 25 [...] bedtime.Active Active Problems ProblemNoted DateDiagnosed DateHistory of idcsfdhvjr35/30/2022History of DVT (deep vein thrombosis)08/16/2022 Overview (08/16/2022): In the past. Not on blood thinners per patient. Calculus of gallbladder without cholecystitis without opxjazvdsub51/21/2022 Overview (08/07/2022): Added automatically from request for surgery [id number] Hkjbndr4102/10/2018Panic pafyue5202/10/2018Right lower quadrant pain05/14/2011 Tobacco dependence aywcgbun44/28/2011 Resolved Problems ProblemNoted DateDiagnosed DateResolved DateInfected sebaceous cyst08/05/2022 08/16/2022acterial ubhlkmjyi29/25/Edema03/10/ain in limb03/10/Type 1 diabetes wbhzyyor66/19/ Candidiasis of skin and nails05/14/Noninfectious gastroenteritis 05/14/besity05/14/ Social History Tobacco UseTypesPacks/DayYears UsedDateSmoking Tobacco: Every JwsMmjrlimprr232 Smokeless Tobacco: Never Tobacco Cessation:Ready to Q uit: Not Asked; Counseling Given: Not Answered Alcohol UseStandard Drinks/WeekCommentsYes0 (1 standard drink = 0.6 oz pure alcohol)PHQ-2AnswerDate RecordedPatient Health Questionnaire-2 Idhln545 [place] Safety & EnvironmentAnswerDate RecordedFear of Current or Ex-PartnerNot on file2024Emotionally AbusedNot on file2024hysically AbusedNot on file2024Sexually AbusedNot on file2024hysically or Sexually Abused Not on file2024CommentsUnknownSex and Gender InformationValueDate RecordedSex Assigned at BirthNot on fileLegal QtuLpmojm94/29/2022 10:03 PM EDT Gender IdentityNot on fileSexual OrientationNot on file Last Filed Vital Signs Vital SignReadingTime TakenCommentsBlood Psprrxlh305/8110 1:06 PM EDT Dbupx2459 1:06 PM ENIFlauqcdwtgr68.1 ??C (98.8 ??F)08/27/2022 1:06 PM EDTRespiratory Dktr683608/16/2022 11:31 AM EDTOxygen Ccrbmnbpwf45%08/16/2022 11:31 AM EDTInhaled Oxygen Concentration--Fbkxez61.8 kg (131 lb 12.8 oz)08/27/2022 1:06 PM OUFOjhrks397 cm (5' 3 )08/16/2022 6:40 AM EDTBody Mass Index23.35 08/16/2022 6:40 AM EDT Plan of Treatment Health MaintenanceDue DateLast DoneCommentsCT Ivddeoiiilun1959Colonoscopy 1959Colorectal Cancer Sebpmpvfm1959FIT-DNA1959FIT1959 FOBT1959Medicare Annual Wellness (AWV)1960 4899Vixbhevflrryp1959 Depression Pbrqarltt39/22/1971Pneumococcal Vaccine: 50+ Years (1 of 2 - PCV) 01/08/19789074Ounahpjmi67/22/1999Zoster Vaccines (1 of 2)2009Fall Risk Fklpizwah20/22/2024COVID-19 Vaccine (3 - season)/11/2020, 01/18/2021Influenza Vaccine (#1)/01/2021, 08/07/2020, 09/10/2018, Additional history existsAdult Pyjzqbd75HIB VaccinesAged OutNo longer eligible based on patient's [...] LAccount TypeRelation to PatientDate of BirthPhone Billing AddressPersonal/McpvrlRulz1960 [address] [address] Care Teams Team MemberRelationshipSpecialtyStart DateEnd Ke Rahman MD [address] [facility] [place] [address] PCP - General08/06/22
--- OUTSIDE RECORDS SUMMARY | 2025-10-15 16:10 | XMS_ITS | Clinical Summary ---
Author Organization [facility] Address [address] [place] [address] Care Team Providers Care Customer Experience Intern Name Role Phone Ke Rahman MD Primary Care Provider [phone] Social History Tobacco UseTypesPacks/DayYears UsedDateSmoking Tobacco: Never Assessed CommentsUnknownSex and Gender InformationValueDate RecordedSex Assigned at Not on fileLegal WfcKighrs20/02/2012 10:04 AM ESTGender IdentityNot on file Sexual OrientationNot on file Plan of Treatment Health MaintenanceDue DateLast DoneCommentsAnxiety Ziruwakyc20/22/1977Depression Sfnwgwzpr44/22/1977Hepatitis C Fysmoppae54/22/1977DTaP,Tdap,Td Vaccine (1 - Tdap)1978Mammogram Veyhqgagp84/22/1999CT Ccuiykkeltrn25/22/2004Cologuard (FIT-DNA)01/08/20042672Ggzfmszeyky56/22/2004Colorectal Cancer Sobbmkopi88/22/2004 Diabetes Lgpnjysfq56/22/2004Fecal Occult Blood2004Lipid Screening 01/08/20044695Ecejjzuowpkgs91/22/2004Pneumococcal Vaccine: 50+ (1 of 1 - PCV) 2009Shingrix Vaccine (1 of 2)2009one Density Lfybytice95/22/2024 Advance Directive Isofidellq38/01/2025ovid-19 Vaccine (1 - 2024- season) 2025Influenza Vaccine (#1)2025RSV Vaccine (1 - 1-dose 75+ series) 2034 Insurance Care Teams Team MemberRelationshipSpecialtyStart Date Ke Rahman MD [address] [place] [address] [facility] - General06/18/04
--- OUTSIDE RECORDS SUMMARY | 2025-10-15 16:11 | XMS_ITS | Patient Health Record ---
Author Organization [facility] [place] Address [address] [place] [address] Care Team Providers Care Digital Publishing Specialist Name Role Phone Km Lopez Primary Care Provider [phone] Kassandra Owens Unavailable [phone] Allergies Allergen (clinical drug ingredient) Drug/Non Drug Allergy documented on EMR Reaction Allergy Type Onset Date Status Information temporarily unavailable IV Iodine Dye (uncoded ) anaphylaxis Allergy ActiveInformation temporarily unavailableLatex (uncoded)UnknownAllergyActive Information temporarily unavailableSoy manzanares (uncoded)UnknownAllergyActive Information temporarily unavailableSulfa AntibioticsUnknownDrug AllergyActive Results Component Value Reference Range Notes XR foot LT min 3V Reviewed date:11/28/2024 10:18:39 AM Interpretation: Performing Lab: Notes/Report: Source Facility: [place] [address] [place] [address] XRay Report Signed Patient: VIDA MEJIA MR#: [id number] : 1960 Acct:[id number] Age/Sex: 64 / F ADM Date: 11/26/24 Loc: RAD Attending Dr: Napoleon Lopez M.D. Ordering Physician: Napoleon Lopez M.D. Date of Service: 11/26/24 Procedure(s): XR foot LT min 3V Accession Number(s): [id number] cc: Napoleon Lopez M.D. [place] [id number] Patient Name: VIDA MEJIA MRN: [id number] date: 1960 Sex: F Assigned Patient Location: RAD Current Patient Location: RAD Accession/Order Number: [id number] Exam Date: 11/26/2024 13:20 Report Date: 11/26/2024 [...] M.D. 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 Ordering Physician: Napoleon Lopez M.D. Date of Service: 11/26/24 Procedure(s): US venous doppler LE RT Accession Number(s): [id number] cc: Napoleon Lopez M.D. [place] [address] Patient Name: VIDA MEJIA MRN: [id number] date: 1960 Sex: F Assigned Patient Location: RAD Current Patient Location: RAD Accession/Order Number: [id number] Exam Date: 11/26/2024 13:20 Report Date: 11/26/2024 14:01 At the request of: NAPOLEON MCMANUSKelvin Procedure: US venous doppler LE RT EXAMINATION: [...] Dictated By: Reinaldo Lipscomb M.D. 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 Date of Service: 10/15/25 Procedure(s): ECG 12 lead Accession Number(s): [id number] cc: [facility] Test Date: 2025-10-15 Pat Name: VIDA MEJIA Department: Room: - Gender: Female Service Counselor: : 1960 Requested By: Minh Ibarra Order Number: [id number] Reading MD: Measurements Intervals [place] Rate: 88 P: 90 CO: 116 QRS: 66 QRSD: 124 T: 72 QT: 394 QTc: 439 Interpretive Statements 1100 Sinus rhythm 2210 Short CO interval 3334 Anterolateral myocardial infarction, age undetermined 3633 Inferior myocardial infarction, probably old [address] depression 9150 abnormal ECG No previous ECG available for comparison Dictated By: Wellington Bradshaw Signed By: DD/ 1547 TD/TT: 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: COVID-19, Flu A+B IH (Not ye t reviewed by provider) Interpretation: Performing Lab: Notes/Report: COVID neg FLU AnegFLU BnegControlpresent Reason For Referral Diagnosis 1 Calcaneus fracture, right (S92.001A) Referral Organization [facility] Referring Provider First Name Km Referring Provider Last Name [facility] Provider Billy Abdullahi Referred Provider Specialty Orthopedic S urgery Referral Priority Routine Diagnosis 1 Calcaneus fracture, right (S92.001A) Referral Organization [facility] Referring Provider First Name Km Referring Provider Last Name [facility] Referred Provider Billy Abdullahi Referred Provider Specialty [...] puff as needed Inhalation every 4 hrs 05/28/2024ctiveTerbinafine HCl 250 MG1 tablet Orally Once a day; Duration: 30 5ActiveDicyclomine HCl 20 MG1 tablet Orally Three times a day; Duration: 30 4ActiveTriamcinolone Acetonide 0.1 %1 application Externally Twice a day; Duration: ctiveProlia 60 MG/MLas directed SubcutaneousActivePromethazine HCl 25 MG1 suppository as needed Rectal every 12 hrsPRNActiveKetoconazole 2 %1 application Externally bid; Duration: 14 days 5ActivehydrOXYzine HCl 25 MG1 tablet Orally at bedtime PRN; Duration: 30 5ActiveGeodon 20 MG1 capsule with food Orally once daily; Duration: 30 daysActiveIncentive spirometeras directed DX: COPD BID; Duration: 30 01/09/2024ctiveFurosemide 20 MG1 tablet Orally Once a day; Duration: 30 iqopZVG0002/25/2023ctiveVitamin C 500 MGOrallyActiveVitamin D 400 UNIT2 capsules Orally Once a dayActiveEster-C -as directed OrallyActiveFerrous Sulfate 325 (65 Fe) MG1 tablet Orally BIDActiveVitamin B-12 100 MCGOrallyActiveAmphetamine- Dextroamphetamine 20 MGtake 1 tablet by mouth once daily; Duration: ActiveMeloxicam 15 MG1 tablet Orally Once a day; Duration: 30 days11/26/2024 ActiveAdult Aerosol Mask -as directedPRNActiveMultivitamin Adult -OrallyActive Lidocaine-Prilocaine 2.5-2.5 %Apply small amount topically twice daily; Duration: 30 days02/06/2024ctiveMagnesium 300 MG2 capsule with a meal Orally Once a daypain clinicActiveIncentive spirometerUse every hour at directed. DX Heel Fracture; Duration: 365 days5ActiveCymbalta 60 MG2 capsule Orally Once a dayActiveNystatin 146926 UNIT/GM1 application Externally Twice a day 5ActivePotassium Chloride ER 10 MEQ1 tablet with food Orally Twice a day; Duration: 30 daysMICRO K CAPSULES02/25/2023ctive Compression Stocking Thigh 20-30mmHg -wear daily; Duration: 30 days06/03/2025 ActivelevoFLOXacin 750 MG1 tablet Orally Once a day; Duration: 10 day(s) 5ActiveBuprenorphine 15 MCG/HRAPPLY 1 PATCH TO SKIN ONCE A WEEK Transdermal weekly dxM51.9; Duration: 28 days5ActiveGabapentin 300 MG take 2 capsules by mouth three times a day; Duration: 30 daysActiveCalcium 150 MGOrallyActiveOndansetron 4 MG1 tablet on the tongue and allow to dissolve Orally qid; Duration: 5 5ActiveAlbuterol Sulfate (2.5 MG/3ML) 0.083%3 mL as needed Inhalation every 6 hrsPRNActiveNebulizer/Tubing/Mouthpiece -as directedPRNActive Immunizations Vaccine Route Administration Date Status Comme nts Flu, Flucelvax (6441-8288) (38610) 6 mos +, single-dose syringe IM Intramuscular 10/08/2023 Administered AymlEwnrixi30/05/2019Administered Social History Tobacco Use: Social History Observation [...] alcohol in the p ast year? No Yfprqi7IsksnzadojigteQgfsoebmUOAKV-F (Standard) Question Answer Notes Did you have [...] in the past year?Monthly or less (1 point)Wrshyv5ItjqprsechnbsrMkbvrjqo Problems Problem Type SNOMED Code ICD Code Onset Dates Problem Status W/U Status Risk Notes Problem Information temporarily unavaila ble Attention-deficit hyperactivity disorder, unspecified type (F90.9) ActiveconfirmedProblemInformation temporarily unavailableVenous insufficiency (chronic) (peripheral) (I87.2)ActiveconfirmedProblemInformation temporarily unavailableMixed simple and mucopurulent chronic bronchitis (J41.8)Active confirmedProblemInformation temporarily unavailableAcute cholecystitis (K81.0) ActiveconfirmedProblemInformation temporarily unavailablePain in right upper arm (M79.621)ActiveconfirmedProblemInformation temporarily unavailableAltered mental status, unspecified (R41.82)ActiveconfirmedProblemInformation temporarily unavailableLocalized edema (R60.0)ActiveconfirmedProblemInformation temporarily unavailableNonspecific reaction to tuberculin skin test without active tuberculosis (R76.11)ActiveconfirmedProblemInformation temporarily unavailable Contusion of other part of head, initial encounter (S00.83XA)Activeconfirmed ProblemInformation temporarily unavailableMigraine headache (G43.909)Active confirmedProblemInformation temporarily unavailableCOPD (chronic obstructive pulmonary disease) (J44.9)ActiveconfirmedProblemInformation temporarily unavailableDiastolic dysfunction (I51.9)ActiveconfirmedProblemInformation temporarily unavailableAnxiety (F41.9)ActiveconfirmedProblemInformation temporarily unavailableEdema (R60.9)ActiveconfirmedProblemInformation temporarily unavailableHyperglycemia (R73.9)ActiveconfirmedProblemInformation temporarily unavailableInsomnia (G47.00)ActiveconfirmedProblemInformation temporarily unavailableHiatal hernia (K44.9)ActiveconfirmedProblemInformation temporarily unavailableFoot drop, left foot (M21.372)ActiveconfirmedProblem Information temporarily unavailableBarrett esophagus (K22.70)Activeconfirmed ProblemInformation temporarily unavailableBronchitis (J40)ActiveconfirmedProblem Information temporarily unavailableMild tricuspid regurgitation (I07.1)Active confirmedProblemInformation temporarily unavailableSciatica of right side (M54.31)ActiveconfirmedProblemInformation temporarily unavailableThyroid nodule (E04.1)ActiveconfirmedProblemInformation temporarily unavailableLumbar disc disease (M51.9)ActiveconfirmedProblemInformation temporarily unavailableSkin lesion (L98.9)ActiveconfirmedProblemInformation temporarily unavailableWell adult (Z00.00)ActiveconfirmedProblemInformation temporarily unavailable Cellulitis (L03.90)ActiveconfirmedProblemInformation temporarily unavailable Scoliosis (M41.9)ActiveconfirmedProblemInformation temporarily unavailable Plantar fasciitis (M72.2)ActiveconfirmedProblemInformation temporarily unavailableNear syncope (R55)ActiveconfirmedProblemInformation temporarily unavailableChest wall pain (R07.89)ActiveconfirmedProblemInformation temporarily unavailableSpasm of back muscles (M62.830)ActiveconfirmedProblemInformation temporarily unavailableDystonia (G24.9)ActiveconfirmedProblemInformation temporarily unavailableMixed hearing loss, bilateral (H90.6)Activeconfirmed ProblemInformation temporarily unavailableBasal cell carcinoma (C44.91)Active confirmedProblemInformation temporarily unavailableLeft foot pain (M79.672) ActiveconfirmedProblemInformation temporarily unavailableNevus (D22.9)Active confirmedProblemInformation temporarily unavailableFibrocystic breast disease (N60.19)ActiveconfirmedProblemInformation temporarily unavailable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)ActiveconfirmedProblemInformation temporarily unavailableTinnitus, left (H93.12)ActiveconfirmedProblemInformation temporarily unavailableKeratosis, seborrheic (L82.1)ActiveconfirmedProblemInformation temporarily unavailablePanic attack (F41.0)ActiveconfirmedProblemInformation temporarily unavailable Superficial thrombophlebitis (I80.9)ActiveconfirmedProblemInformation temporarily unavailableCellulitis of right hand (L03.113)ActiveconfirmedProblem Information temporarily unavailableVenous reflux (I87.2)ActiveconfirmedProblem Information temporarily unavailableGastro-esophageal reflux disease (K21.9) ActiveconfirmedProblemInformation temporarily unavailableCalcaneus fracture, right (S92.001A)ActiveconfirmedProblemInformation temporarily unavailable Shoulder impingement syndrome (M75.40)ActiveconfirmedProblemInformation temporarily unavailableDeficiency of vitamin B12 (E53.8)ActiveconfirmedProblem Information temporarily unavailableLeg mass, right (R22.41)Activeconfirmed ProblemInformation temporarily unavailableMass of neck (R22.1)Activeconfirmed ProblemInformation temporarily unavailableLeft atrial dilation (I51.7)Active confirmedProblemInformation temporarily unavailableVaricose veins of lower extremity (I83.90)ActiveconfirmedProblemInformation temporarily unavailableDeep vein thrombophlebitis of lower leg, unspecified laterality (I80.209)Active confirmedProblemInformation temporarily unavailableBruising (T14.8XXA)Active confirmedProblemInformation temporarily unavailableH/O gastric bypass (Z98.84) ActiveconfirmedProblemInformation temporarily unavailableMyalgia (M79.10)Active confirmedProblemInformation temporarily unavailable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)ActiveconfirmedProblemInformation temporarily unavailableLow back pain, unspecified (M54.50)Activeconfirmed Vital Signs Heart Rate 102 /min 09/02/2025 Afvkliuredo36.0 degrees Shojniylqx86/22/7157Qyzfsrew62 %09/02/2025lood pressure tdwpixvag83 mm Hg09/02/20259331Jdqmmm20 in08/19/2025lood pressure ijduxlly541 mm Hg 09/02/20254664Tjqeey513.8 lbs1MI24.94 kg/m208/19/2025 Procedures Procedure Date Ordered Date Performed Result Body Sit e Six minute walk 09/05/2025 N/A Encounters Encounter Location Date Provider Diagnosis [place] [id number] [place] [address] 11/25/2024 Km Hoy Edema R60.9 and Left foot pain M79.[address] [address] 12/08/2024 Km Hoy Body aches R52 ; [address] st congestion R09.89 ; Acute bronchitis, unspecified organism J20.9 ; COPD (chronic obstructive pulmonary disease) J44.9 ; Dyspnea R06.00 and Chest pain R07.[address] [address] 05/23/2025 Km Hoy Cellulitis L03.[address] [address] 08/19/2025 Km Hoy Gastro-esophageal reflux disease K21.9 and Attention-deficit hyperactivity disorder, unspecified type F90.[address] [address] 09/02/2025 Kassandra Owens COPD (chronic obstructive pulmonary disease) J44.[address] [address] 12/22/2024 Km Hoy Sciatica of right si de M54.[address] [address] 10/27/2024 Km Hoy [place] [address] [place] [address] 11/11/[address]24oug [address] [address]/01/2025Doug [facility] [place] [address]/08/2025Doug [facility] [place] [address]/10/2025Doug [facility] [place] [address]/Doug [facility] [place] [address]/Doug [facility] [place] [address] 12/14/2024Doug [facility] [place] [address]/Doug HoyBenign neoplasm of maxillary sinus D14.0BVSan [facility] [place] [address]/01/2025 Km [facility] [place] [address] 01/11/2025Doug [facility] [place] [address]/Doug [facility] [place] [address]/01/2025Doug [facility] [place] [address]/08/2025Doug [facility] [place] [address]/Doug [facility] [place] [address]/ Km HoySciatica of right side M54.31BVSan Luis Valley [facility] [place] [address]/Doug [facility] [address] [place] [address]/Doug [facility] [place] [address]/11/2025Doug [facility] [place] [address] 02/25/2025Doug [facility] [place] [address]/Doug [facility] [place] [address]/11/2024Doug [facility] [place] [address]/Doug [facility] [place] [address]/Doug [facility] [place] [address]/ [facility] [place] [address]/04/2025Doug [facility] [place] [address]/Doug [facility] [place] [address]/Doug [facility] [place] [address]/Doug Sh[address] [place] [address]/06/2025Doug [facility] [place] [address]/07/2025Doug [facility] [place] [address] 05/27/2025Doug [facility] [place] [address]/Doug HoyCellulitis L03.90[facility] [address] [facility] [place] [address]/Doug [facility] [place] [address]/02/2025Doug Hoy Calcaneus fracture, right S92.001[facility] [place] [address]/04/2025Doug HoyCalcaneus fracture, right S92.001[facility] [facility] [place] [address] 06/30/2025Doug [facility] [facility] [place] [address]/03/2025Doug [facility] [facility] [place] [address]/Doug [facility] [facility] [place] [address]/Doug [facility] [facility] [place] [address]/Doug [facility] [facility] [place] [address]/ Kassandra CramerCOPD (chronic obstructive pulmonary disease) J44.9BHigh[facility] [facility] [place] [address]/01/2025Doug [facility] [place] [address] 09/26/2025Doug HoyAttention-deficit hyperactivity disorder, unspecified type F90.9BSt. [facility] [facility] [place] [address] 10/04/2025Doug [facility] [place] [address]/Doug [facility] [place] [address]/Doug Zackeryy Assessments Encounter Date Diagnosis (ICD Code) Assessment Notes Treatment Notes Treatment Clinical Notes Section Notes 12/22/2024 Sciatica of right side (ICD-10 - M54.31) oding well with bdajun0511/25/2024Edema (ICD-10 - R60.9)11/25/2024Left foot pain (ICD-10 - M79.672)12/08/2024ody aches (ICD-10 - R52)12/08/2024hest congestion (ICD-10 - R09.89)12/16/2024enign neoplasm of maxillary sinus (ICD-10 - D14.0) 02/02/2025Sciatica of right side (ICD-10 - M54.31)06/02/2025ellulitis (ICD-10 - L03.90)06/20/2025alcaneus fracture, right (ICD-10 - S92.001A)06/22/2025 Calcaneus fracture, right (ICD-10 - S92.001A)09/05/2025OPD (chronic obstructive pulmonary disease) (ICD-10 - J44.9)09/26/2025ttention-deficit hyperactivity disorder, unspecified type (ICD-10 - F90.9)05/23/2025ellulitis (ICD-10 - L03.90)us to rule otu DVT and rocephin with double oral ab08/19/2025Gastro- esophageal reflux disease (ICD-10 - K21.9)08/19/2025ttention-deficit hyperactivity disorder, unspecified type (ICD-10 - F90.9)09/02/2025OPD (chronic obstructive pulmonary disease) (ICD-10 - J44.9) requesting walk test home 02? 5Acute bronchitis, unspecified organism (ICD-10 - J20.9)Rest and drink more liquids, especially water. You may use a humidifier or vaporizer to help keep the drainage moist. Paqk-uxd-ovgewmx Nasal Saline may help the stuffy and runny nose. Use Ibuprofen and or Tylenol as needed for fever, chills, body aches or pain. Children 5 years old should not be given qrke-vow-kdpctyw cough and cold medications such as guaifenesin and dextromethorphan. If you're over age 5, you may try oubk-udh-jqrwxjm cold medications such as guaifenesin and dextromethorphan, [...] go to the emergency room or call [id number] (chronic obstructive pulmonary disease) (ICD-10 - J44.9)12/08/2024Dyspnea [...] T3) 5 MM screening mammo BI 08/19/2025 ECG 12 lead 10/15/2025 C. Difficile PCR 10/02/2023 CT CHEST LOW DOSE (LDCT) 08/19/2025 CT sinus w con 05/25/2024 CMP (COMP MET MARIN) w/eGFR CKD-EPI 2024 CBC WITH DIFF 08/19/2025 Insurance Providers Payer Name Payer Address Payer Phone Subscriber Number Group Number Insured Name Patient Relationship to Insured Coverage Start Date Coverage End Date [place] [address] [place] [place] [address] [id number] Daniella Mejia - patient is the insuredMMO MEDICARE SUPPLEMENTPO [address] [place] [id number], TerriSelf - patient is the insured Medications [...] Date(Month/Year) Bilateral L2-3, L4-5 radiofrequency abla tion Gastric BypassAppendectomyTonsillectomyTotal HysterectomyUpper/ lower blephroloplastiesLaminectomy L4-W2Iqekhobx Epidural/2022Vein Ablation
[2025-10-15] MEDS: METHYLPREDNISOLONE SOD SUCC PF 125 MG/2 ML VIAL IVP (16:18)
[2025-10-15] MEDS: IPRATROPIUM/ALBUTEROL SULFATE 3 ML AMPUL.NEB IH (16:24)
[2025-10-15 16:30] LABS: Hematocrit 37.2 % (36.0-48.0); Hemoglobin 11.6 g/dL (12.0-16.0); Immature Granulocytes Abs Auto 0.04 10^3/uL (0.00-0.03); Immature Granulocytes Pct Auto 0.4 % (0.0-0.5); Lymphocytes Absolute Auto 1.5 10^3/uL (1.2-3.8); Mean Corpuscular HGB Conc 31.2 g/dL (29.9-35.2); Mean Corpuscular Hemoglobin 26.0 pg (26.7-34.0); Mean Corpuscular Volume 83.2 fL (81.0-99.0); Platelet Count 432 10^3/uL (150-450); Red Blood Count 4.47 10^6/uL (4.20-5.40); White Blood Count 9.0 10^3/uL (4.0-11.0)
[2025-10-15 16:54] LABS: Anion Gap 6.8; Blood Urea Nitrogen 4.0 mg/dL (7.0-18.0); Calcium 10.0 mg/dL (8.5-10.1); Carbon Dioxide 34.0 mmol/L (21.0-32.0); Chloride 93 mmol/L (98-107); Estimated GFR (African America >60 (>=60 mL/min/1.73m^2); Estimated GFR (Non-African Ame >60 (>=60 mL/min/1.73m^2); Glucose 84 mg/dL (74-106); Potassium 3.8 mmol/L (3.5-5.1); Sodium 130 mmol/L (136-145)
[2025-10-15 16:57] LABS: NT Pro B Type Natriuretic Pept 1312.0 pg/mL (<=900.0)
--- NOTE | 2025-10-15 17:01 | CT_ITS ---
[address] [address] Patient Name: RHETT MEJIA MRN: [id number] date: 1960 Sex: F Assigned Patient Location: ED.MAIN Current Patient Location: ED.MAIN Accession/Order Number: [id number] Exam Date: 10/15/2025 17:30 Report Date: 10/15/2025 18:18 At the request of: MINI WOODALL Procedure: CT angio chest CT angio chest 10/15/2025 5:47 PM SIGN AND SYMPTOMS: ^shortness of breath CONTRAST: 100 mL of intravenous Omnipaque 300 TECHNIQUE: Multidetector CT axial slices of the chest were obtained with IV contrast. Multiplanar reformats were performed and viewed on a separate workstation and reviewed to further define anatomy and possible pathology. CT was performed with one or more of the following dose reduction techniques: Automated exposure control, adjustment of the mA and/or kV according to patient size, or use of iterative reconstruction technique. COMPARISON: None. FINDINGS: Lower neck: There is a 2.5 cm hypoattenuating left thyroid nodule. Ultrasound correlation is recommended as malignancy is not excluded. Vessels: Atherosclerotic changes are noted in the thoracic aorta, origins of great vessels, and coronary arteries. There is no evidence of pulmonary embolism. Mediastinum and Jodee: Within normal limits. Heart: Normal size. No pericardial effusion. Airways: Within normal limits Lungs: There is dependent atelectasis in the lung bases. There is an 8 mm calcified granuloma in the right lung base. Pleura: Within normal limits. Chest Wall: Within normal limits. Upper Abdomen: Postoperative changes are noted suggesting previous gastric bypass. Bones: There is a dextro convex curvature of the thoracic spine. Degenerative changes are noted in the thoracic spine. CT/CT angio chest IMPRESSION: No acute cardiopulmonary pathology. There is no evidence of pulmonary embolism. There is dependent atelectasis in the lung bases. Impression dictated by: Almas Singh M.D. 10/15/2025 6:18 PM Dictation Location: [place] [address] Electronically authenticated by: [id number] Y Date: 10/15/2025 18:18
[2025-10-15] MEDS: DIPHENHYDRAMINE HCL 50 MG/ML VIAL 25 MG IVP (17:11)
== END 2025-10-15 18:55 | disposition home or self-care (01) ==
PROVIDERS: Emergency Provider Emergency Medicine; PCP Family Medicine
DX: R06.00 Dyspnea, unspecified (principal); J44.9 Chronic obstructive pulmonary disease, unspecified
CPT/HCPCS: 36415; 71045; 71275; 80048; 83880; 84484; 85025; 93005; 94640; 99285; J1200; J2919; Q9967

== ENCOUNTER 2025-11-14 14:09 | Emergency (ER) | payer MEDICARE, OTHER, SELFPAY ==
--- OUTSIDE RECORDS SUMMARY | 2025-10-21 05:30 | XMS_ITS ---
Author Organization The [facility] in [place] Address [address] [place] [address] Care Team Providers Care Cafeteria Assistant Name Role Phone Km Rahman Primary Care Provider REASON FOR VISIT HOSP F/U Encounters Encounter Location Date Provider Diagnosis [address] [address] 10/21/2025 Km Rahman Plan Of Treatment No Information Progress Notes * Vida MEJIA LDOB: [birth year] (65 yo F)Acc No.[id number]:10/21/2025 UNLOCKED PROGRESS NOTE Progress Note Patient: Vida SALCEDO :?Ke Rahman (TTC), MDDOB:1960???Age: 65 Y???Sex:FemaleDate:10/21/2025Phone:[phone]:[address] [place], [place] [id number] Subjective: * Chief Complaints: * 1 . HOSP F/U. * Medical History: Objective: * Vitals: Assessment: Plan: * Treatment: * * Electronic signature of Km Rahman MD, [id number] on 11/14/2025 at 03:39 PM EST Sign off status: PendingVisit Status:?OFF CANC (OFFICE CANCEL) * Provider: Liz Rahman MD (TTC) Date: 12/22/2024 Generated for Printing/Faxing/eTransmitting on:?11/14/2025 03:39 PM EST
--- OUTSIDE RECORDS SUMMARY | 2025-10-31 03:31 | XMS_ITS ---
Author Organization The [facility] in [place] Address [address] [place] [address] Care Team Providers Care Copywriting Intern Name Role Phone Km Rahman Primary Care Provider Kassandra Owens [phone] REASON FOR VISIT Spiriva- Medications Medication SIG (Take, Route, Frequency, Duration) Notes Start Date End Date Status Spiriva HandiHaler 18 MCG 1 capsule by i nhaling the contents of the capsule using the HandiHaler device Inhalation Once a day; Duration: 30 days 11/01/2025tive Encounters Encounter Location Date Provider Diagnosis [address] [address] 10/31/2025 Kassandra Owens Plan Of Treatment Medication Medication Name Sig Start Date Stop Date Notes Spiriva HandiHaler 18 MCG 1 capsule by i nhaling the contents of the capsule using the HandiHaler device Inhalation Once a day; Duration: 30 days 11/01/2025 Progress Notes * Vida MEJIA LDOB: [birth year] (65 yo F)Acc No.[id number]:10/31/2025 Patient:?Vida MEJIA :1960???Age:65 Y???Sex:FemalePhone:[phone] Address:[address] [place] [address] * Refills Start Spiriva HandiHaler Capsule, 18 MCG, Inhalation, 30 Capsule, 1 capsule by inhaling the contents of the capsule using the HandiHaler device, Once a day, 30 days, Refills=11 Subjective: * Chief Complaints: * S piriva- * Medical History: * Surgical History: * Hospitalization/Major Diagno stic Procedure: * Medications: Objective: * Vitals: * Physical Examination: ??? Assessment: Plan: * Treatment: Start Spiriva HandiHaler Capsule, 18 MCG, 1 capsule by inhaling the contents of the capsule using the HandiHaler device, Inhalation, Once a day, 30 days, 30 Capsule, Refills 11.?? * Procedure Codes: * true * Date:?Generated for Printing/Faxing/eTransmitting on:?11/14/2025 03:39 PM EST
--- OUTSIDE RECORDS SUMMARY | 2025-11-11 03:08 | XMS_ITS ---
Author Organization The [facility] in [place] Address [address] [place] [address] Care Team Providers Care Medical Customer Service Representative Name Role Phone Km Rahman Primary Care Provider [phone] Kassandra Owens [phone] REASON FOR VISIT spiriva Medications Medication SIG (Take, Route, Frequency, Duration) Notes Start Date End Date Status Tiotropium Dora 2.5 MCG/ACT 2 puffs Inhalatio n Once a day; Duration: 30 days 11/11/2025tive Encounters Encounter Location Date Provider Diagnosis [address] [address] 11/11/2025 Kassandra Owens Plan Of Treatment Medication Medication Name Sig Start Date Stop Date Notes Spiriva HandiHaler 18 MCG 1 capsule by i nhaling the contents of the capsule using the HandiHaler device Inhalation Once a day 11/01/2025 Tiotropium Dora 2.5 MCG/ACT2 puffs Inhalation Once a day; Duration: 30 days 11/11/2025 Progress Notes * Vida MEJIA LDOB: [birth year] (65 yo F)Acc No.[id number]:11/11/2025 Patient:?Vida MEJIA :1960???Age:65 Y???Sex:FemalePhone:[phone] Address:[address] [place] [address] * Refills Start Tiotropium Dora Aerosol Solution, 2.5 MCG/ACT, Inhalation, 1, 2 puffs, Once a day, 30 days, Refills=11 Stop Spiriva HandiHaler Capsule, 18 MCG, Inhalation, 1 capsule by inhaling the contents of the capsule using the HandiHaler device, Once a day Subjective: * Chief Complaints: * S piriva * Medical History: * Surgical History: * Hospitalization/Major Diagno stic Procedure: * Medications: Objective: * Vitals: * Physical Examination: ??? Assessment: Plan: * Treatment: Start Tiotropium Dora Aerosol Solution, 2.5 MCG/ACT, 2 puffs, Inhalation, Once a day, 30 days, 1, Refills 11;?Stop Spiriva HandiHaler Capsule, 18 MCG, 1 capsule by inhaling the contents of the capsule using the HandiHaler device, Inhalation, Once a day.?? * Procedure Codes: * true * Date:?Generated for Printing/Faxing/eTransmitting on:?11/14/2025 03:39 PM EST
[2025-11-14] VITALS (55 sets, daily range): BP systolic 92–172; BP diastolic 48–84; PULSE 75–100; RESP 16; TEMP 36.9; O2SAT 70–100; BMI 22.3
--- NOTE | 2025-11-14 14:37 | ECG_ITS ---
[facility] Test Date: 2025-11-14 Pat Name: RHETT MEJIA Department: Room: - Gender: Female Manager User Interface: : 1960 Requested By: NAPOLEON LOPEZ Order Number: [id number] Reading MD: LAN NORWOOD M.D. Measurements Intervals [place] Rate: 93 P: 100 IA: 122 QRS: 84 QRSD: 86 T: 76 QT: 340 QTc: 391 Interpretive Statements 1100 Sinus rhythm 9110 normal ECG Compared to ECG 10/15/2025 15:47:37 Short IA interval no longer present Myocardial infarct finding no longer present Electronically Signed On 11-14-2025 20:24:58 EST by LAN NORWOOD M.D.
--- NOTE | 2025-11-14 14:48 | PC.NURSE ---
Pt presents via EMS for shortness of breath Limited information from report Pt answers name birthdate and location correctly but not year and time Pt needs repetitive reminders of where she is and to sit still in bed - pt keeps saying she does not feel well and wants to go home This nurse reitterate to pt to stay in bed and she cannot go home Pt feels warm to the touch but is afebrile to oral thermometer on both attempts This nurse was unsuccessful at a large bore IV 22 started in right hand Respiratory present to put patient on venti mask administer a duoneb and obtain ABG's This nurse collected flu and Covid swabs Lab present to get cultures EKG obtained
--- NOTE | 2025-11-14 14:50 | ED.SOB1 ---
HPI - SOB/Dyspnea General Chief Complaint: Shortness of Breath/Dyspnea Stated Complaint: SHORTNESS OF BREATH Time Seen by Provider: 11/14/25 14:21 Source: patient Mode of arrival: ambulance Limitations: altered mental status History of Present Illness HPI Narrative: 65-year-old female presents to the emergency department with complaint of shortness of breath. Reportedly, patient has been a little confused making history somewhat limited. Right now, she is oriented to self, place, event. She is disoriented to timing. + Cough, congestion. Patient with history of COPD is chronically on 2 L of oxygen. She is a cigarette smoker. EMS reported she was hypoxic on their arrival at around 70%. They had her at 6 L/min which improved her saturation. Patient has had exposure to influenza. She denies any chest pain. Quality:?as above Severity:?moderate Timing:?as above Context: Normal setting and activity? Modifying factors:?as above Associated symptoms: as above Related Data Home Medications ?Medication ?Instructions ?Recorded ?Confirmed buprenorphine 10 mcg/hour weekly 1 patch transdermal QWEEK 05/01/23 11/14/25 transdermal patch (Butrans) calcium 600 mg (as 1 cap PO .QD 05/01/23 11/14/25 carbonate)-vitamin D3 5 mcg (200 unit) capsule (Calcium 600 + D(3)) cyclobenzaprine 5 mg tablet 5 mg PO TID 05/01/23 11/14/25 dextroamphetamine-amphetamine 20 20 mg PO .QD 05/01/23 11/14/25 mg tablet diclofenac sodium 1 % topical gel 4 g topical QID 05/01/23 11/14/25 duloxetine 60 mg capsule,delayed 120 mg PO DAILY 05/01/23 11/14/25 release (Cymbalta) esomeprazole magnesium 20 mg 40 mg PO DAILY 05/01/23 11/14/25 capsule,delayed release (Nexium) ziprasidone HCl 20 mg capsule 20 mg PO .HS 05/01/23 11/14/25 albuterol sulfate 2.5 mg/3 mL 2.5 mg inhalation Q6H PRN 06/21/24 11/14/25 (0.083 %) solution for nebulization shortness of breath or wheezing apixaban 5 mg tablet (Eliquis) 5 mg PO Q12H 11/14/25 11/14/25 gabapentin 300 mg capsule 600 mg PO Q8H 11/14/25 11/14/25 meloxicam 15 mg tablet 15 mg PO .QD 11/14/25 11/14/25 terbinafine HCl 250 mg tablet 250 mg PO .QD 11/14/25 11/14/25 tiotropium bromide 2.5 2 puff inhalation .QD 11/14/25 11/14/25 mcg/actuation mist for inhalation (Spiriva Respimat) Allergies Allergy/AdvReac Type Severity Reaction Status Date / Time iodine Allergy unknown Verified 10/15/25 15:39 latex Allergy Unknown Verified 10/15/25 15:39 soybean Allergy Unknown Verified 10/15/25 15:39 Sulfa (Sulfonamide Allergy unknown Verified 10/15/25 15:39 Antibiotics) ivp dye Allergy Severe Anaphylaxis Uncoded 10/15/25 17:16 Review of Systems ROS Status of ROS unobtainable due to mental status [facility] Medical History (Updated 11/14/25 @ 20:20 by TAJ Duarte) Upper back pain ?M54.9 - Dorsalgia, unspecified (ICD-10) Back pain ?M54.9 - Dorsalgia, unspecified (ICD-10) Neck pain ?M54.2 - Cervicalgia (ICD-10) Suicidal behavior ?R45.89 - Other symptoms and signs involving emotional state (ICD-10) Panic attack ?F41.0 - Panic disorder [episodic paroxysmal anxiety] (ICD-10) Depressed ?F32.A - Depression, unspecified (ICD-10) Anxiety ?F41.9 - Anxiety disorder, unspecified (ICD-10) Hearing deficit ?H91.90 - Unspecified hearing loss, unspecified ear (ICD-10) Acid reflux ?K21.9 - Gastro-esophageal reflux disease without esophagitis (ICD-10) Left thyroid nodule ?E04.1 - Nontoxic single thyroid nodule (ICD-10) Smoker ?F17.200 - Nicotine dependence, unspecified, uncomplicated (ICD-10) Asthmatic bronchitis ?J45.909 - Unspecified asthma, uncomplicated (ICD-10) Surgical History History of cholecystectomy ?Z90.49 - Acquired absence of other specified parts of digestive tract (ICD-10) H/O discectomy ?Z98.890 - Other specified postprocedural states (ICD-10) H/O: hysterectomy ?Z90.710 - Acquired absence of both cervix and uterus (ICD-10) Gastric bypass status for obesity ?Z98.84 - Bariatric surgery status (ICD-10) Social History Little interest or pleasure in doing things: not at all Feeling down, depressed, or hopeless: not at all Exam Narrative Exam Narrative: Vital signs reviewed Nurses notes noted CONST: ill appearing, well nourished, in mild distress.? Patient appears very tired. No diaphoresis.?? HENT: normocephalic, atraumatic, dry mucous membrane, no abnormalities of the nose noted, hearing normal EYES: normal appearing conjunctiva, no apparent discharge bilat NECK: normal appearance CV: normal rate, regular rhythm, no murmur RESP: + Increased effort, work of breathing. Lung sounds diminished with rales at the bases, expiratory wheezing throughout GI: soft, no distension, nontender : no CVA tenderness MS: no edema, tenderness SKIN: Patient has a wound to the anterior lateral left lower extremity. Wound appears clean, normal healing mechanisms present. No evidence of infection. No gross edema. No pallor NEURO: A&Ox 3 out of 4 (disoriented to timing, no focal findings PSYCH: impaired memory Constitutional Vital Signs, click to edit/add: Last Vital Signs Temp 98.5 F 11/14/25 14:16 Pulse 92 H 11/14/25 17:10 Resp 23 H 11/14/25 17:10 BP 121/64 11/14/25 17:00 Pulse Ox 99 11/14/25 17:10 O2 Del Method Venturi Mask 11/14/25 15:32 O2 Flow Rate 10 11/14/25 15:32 FiO2 50 11/14/25 17:02 Course Consultations Consultation #1: Patient discussed with Dr. Park. At this time, there are some limitations on beds over a [facility]. With patient beginning to stabilize, recommends BiPAP over the next 2 hours, repeat ABG to determine whether patient is stable at [facility] or still requires transfer. Time: 16:29 Consultation #2: Patient had episode of decline in the emergency department, her head was repositioned. However, at this time, patient needs higher level of service and this hospital can provide. Consulted with Dr. Mary lara at [facility] who will accept patient to the stepdown unit for further care, monitoring, and management. Time: 17:55 Vital Signs Vital signs: Vital Signs Temperature 98.5 F 11/14/25 14:16 Pulse Rate 94 H 11/14/25 14:16 Respiratory Rate 28 H 11/14/25 14:16 Blood Pressure 141/77 11/14/25 14:16 Pulse Oximetry 70 L 11/14/25 14:16 Oxygen Delivery Method Room Air 11/14/25 14:16 Temperature 98.5 F 11/14/25 14:16 Pulse Rate 92 H 11/14/25 17:10 Respiratory Rate 23 H 11/14/25 17:10 Blood Pressure 121/64 11/14/25 17:00 Pulse Oximetry 99 11/14/25 17:10 Oxygen Delivery Method Venturi Mask 11/14/25 15:32 Oxygen Delivery Flow Rate 10 11/14/25 15:32 Fraction of Inspired Oxygen 50 11/14/25 17:02 MDM - SOB/Dyspnea MDM Narrative Medical decision making narrative: This is a pleasant 65-year-old female who presents to the emergency department for evaluation of shortness of breathing, confusion On arrival, afebrile, hypoxic, otherwise stable VS Exam, nontoxic, ill appearing patient in mild distress. She appears sleepy. Speech is a little slurred. She is oriented to place, person, event. Disoriented to time. Impaired memory. She is on oxygen at 6 L/min. Heart regular rate and rhythm. Lung sounds diminished with bibasilar rales, expiratory wheezing present. No peripheral edema. EKG reveals no acute or concerning changes Patient arrived in respiratory distress. She was on 6 L of oxygen with good O2 saturation. However, she was quite tachypneic. Auditory congestion noted while she was breathing. Patient was switched over to a Ventimask. O2 sats were in the upper 80s. She would still, occasionally pull off her mask. Appeared cyanotic. Chest x-ray showing pulmonary edema. Labs show patient testing positive for influenza A. Patient still struggled with breathing despite being on a Ventimask. Patient was transferred from ED bed 8/2 ED bed 6 for more appropriate resuscitation efforts. Initially ordered 0.4 mg sublingual nitro, as well as, 40 mg of Lasix. She was placed on BiPAP. Nitro drip at 10 mcg a minute ordered as well. She did improve while on BiPAP. O2 saturation went up to 95%. We had consideration for CO2 retention. She was breathing around 25 breaths/min. Color looked improved, pink. Subjectively feeling somewhat better. She was closely monitored. Chest x-ray, per radiology report reveals: There is chronic interstitial prominence with hazy airspace opacities bilaterally. This is slightly worse when compared to the prior exam which may represent an infectious process versus pulmonary edema. Labs revealed white count of 11.4. H&H were stable compared to prior 10.9 and 36, respectively. No thrombocytopenia. Sodium 127, potassium 5.2. Lactate was elevated at 3.6. We did obtain blood cultures and started her on IV antibiotics, antiviral due to possible pneumonia and testing positive for influenza. We held any fluids as she was in pulmonary edema. LFTs were elevated, uncertain etiology with AST of 332, ALT 108, alkaline phosphatase at 447. BNP was elevated at 3809. Urinalysis was unremarkable. Patient's color improved, but she was still encephalopathic, at times attempting to pull off her mask. She was given dose of IV Valium. She did have a decline in her SpO2. On reevaluation, head was tilted to the side, she was somewhat snoring. [employer] repositioned her head, propped with pillow and sats improved to 97-98%. This is where she remained during the remainder of her course. Favor acute on chronic respiratory failure with hypoxia, pulmonary edema/CHF, influenza A, sepsis History and Record Review Discussion with independent historian:daughter ] Management Discussion with another healthcare provider:see course above Independent interpretation:CXR: + PULM EDEMA Additional Tests and Interventions ECG:see below Disposition/plan ED disposition: Plan: Patient will be transferred.? Condition at time of disposition: improved, guarded. PLEASE NOTE: Portions of the medical record may have been produced using electronic business insurance agent and may contain errors with respect to translation of words which may not have been identified prior to finalization of the chart. Medical Records Attestation: I reviewed the patient's medical records. Lab Data Attestation: I reviewed the patient's lab results. Labs: Lab Results 11/14/25 11/14/25 11/14/25 Range/Units 14:30 14:53 14:59 WBC 11.4 H (4.0-11.0) 10^3/uL RBC 4.33 (4.20-5.40) 10^6/uL Hgb 10.9 L (12.0-16.0) g/dL Hct 36.0 (36.0-48.0) % MCV 83.1 (81.0-99.0) fL MCH 25.2 L (26.7-34.0) pg MCHC 30.3 (29.9-35.2) g/dL RDW 19.7 H (11.0-15.0) % Plt Count 321 (150-450) 10^3/uL MPV 8.8 L (9.5-13.5) fL Seg Neuts % (Manual) 72.0 (43.0-75.0) Band Neutrophils % 12.0 H (0-5) % Lymphocytes % (Manual) 7.0 L (20.5-60.0) % Monocytes % (Manual) 9.0 (1.7-12.0) % Eosinophils % (Manual) 0.0 L (0.9-7.0) % Basophils % (Manual) 0.0 L (0.2-2.0) % Neutrophils # (Manual) 8.20 H (1.4-6.5) 10^3/uL Band Neutrophils # 1.4 H (0.0-0.3) 10^3/uL Lymphocytes # (Manual) 0.79 L (1.20-3.80) 10^3/uL Monocytes # (Manual) 1.02 H (0.30-0.80) 10^3/uL Eosinophils # (Manual) 0.00 (0.00-0.70) 10^3/uL Basophils # (Manual) 0.00 (0.00-0.10) 10^3/uL Puncture Site Rr ABG pH 7.243 L* (7.350-7.450) ABG pCO2 60.6 H* (35.0-45.0) mmHg ABG pO2 78.4 L (80.0-100.0) mmHg ABG HCO3 26.1 H (22.0-26.0) mmol/L ABG O2 Saturation 93.5 % ABG Base Excess -1.2 (-2.0-2.0) mmol/L Harry Test Positive (POSITIVE) O2 Liters/Min 6 Minute Volume FiO2 % Tidal Volume BiPAP Sodium 127 L (136-145) mmol/L Potassium 5.2 H (3.5-5.1) mmol/L Chloride 91 L (98-107) mmol/L Carbon Dioxide 27.9 (21.0-32.0) mmol/L Anion Gap 13.3 BUN 10.0 (7.0-18.0) mg/dL Creatinine 0.71 (0.55-1.02) mg/dL Est GFR ( Amer) >60 (>=60 mL/min/1.73m^2) Est GFR (Non-Af Amer) >60 (>=60 mL/min/1.73m^2) BUN/Creatinine Ratio 14.1 Glucose 95 (74-106) mg/dL Lactate 3.6 H* (0.4-2.0) mmol/L Calcium 9.5 (8.5-10.1) mg/dL Magnesium 1.8 (1.8-2.4) mg/dL Total Bilirubin 1.3 H (0.2-1.0) mg/dL AST 332 H (15-37) U/L ALT 108 H (14-59) U/L Alkaline Phosphatase 447 H (46-116) U/L Troponin I High Sens 20.5 (4.0-51.3) pg/mL NT-Pro-B Natriuret Pep 3809.0 H* (<=900.0) pg/mL Total Protein 7.5 (6.4-8.2) g/dL Albumin 3.0 L (3.4-5.0) g/dL Globulin 4.5 g/dL Albumin/Globulin Ratio 0.7 Urine Color (YELLOW) Urine Clarity (CLEAR) Urine pH (5.0-9.0) Ur Specific Advance (1.005-1.025) Urine Protein (NEG/TRACE) mg/dL Urine Glucose (UA) (NEGATIVE) mg/dL Urine Ketones (NEGATIVE) mg/dL Urine Occult Blood (NEGATIVE) Urine Nitrite (NEGATIVE) Urine Bilirubin (NEGATIVE) Urine Urobilinogen (0.2-1.0) EU/dL Ur Leukocyte Esterase (NEGATIVE) Urine RBC (0-2) #/HPF Urine WBC (NONE SEEN) #/HPF Ur Squamous Epith Cells (NONE/RARE) #/LPF Urine Crystals (None Seen) #/HPF Urine Bacteria (NONE SEEN) #/HPF Urine Casts (NONE SEEN) #/LPF Urine Mucus (NONE SEEN) Ur Culture Indicated? Influenza Type A Ag Positive A Influenza Type B Ag Negative RSV Antigen Not detected (NOT DETECTE) SARS-CoV-2 Ag (CV2AG) Negative (NEGATIVE) 11/14/25 11/14/25 Range/Units 15:20 16:57 WBC (4.0-11.0) 10^3/uL RBC (4.20-5.40) 10^6/uL Hgb (12.0-16.0) g/dL Hct (36.0-48.0) % MCV (81.0-99.0) fL MCH (26.7-34.0) pg MCHC (29.9-35.2) g/dL RDW (11.0-15.0) % Plt Count (150-450) 10^3/uL MPV (9.5-13.5) fL Seg Neuts % (Manual) (43.0-75.0) Band Neutrophils % (0-5) % Lymphocytes % (Manual) (20.5-60.0) % Monocytes % (Manual) (1.7-12.0) % Eosinophils % (Manual) (0.9-7.0) % Basophils % (Manual) (0.2-2.0) % Neutrophils # (Manual) (1.4-6.5) 10^3/uL Band Neutrophils # (0.0-0.3) 10^3/uL Lymphocytes # (Manual) (1.20-3.80) 10^3/uL Monocytes # (Manual) (0.30-0.80) 10^3/uL Eosinophils # (Manual) (0.00-0.70) 10^3/uL Basophils # (Manual) (0.00-0.10) 10^3/uL Puncture Site Lr ABG pH 7.270 L* (7.350-7.450) ABG pCO2 64.4 H* (35.0-45.0) mmHg ABG pO2 97.0 (80.0-100.0) mmHg ABG HCO3 29.5 H (22.0-26.0) mmol/L ABG O2 Saturation 97.0 % ABG Base Excess 2.6 H (-2.0-2.0) mmol/L Harry Test Positive (POSITIVE) O2 Liters/Min Minute Volume 7.8 FiO2 50 % Tidal Volume 413 BiPAP 14/7 Sodium (136-145) mmol/L Potassium (3.5-5.1) mmol/L Chloride (98-107) mmol/L Carbon Dioxide (21.0-32.0) mmol/L Anion Gap BUN (7.0-18.0) mg/dL Creatinine (0.55-1.02) mg/dL Est GFR ( Amer) (>=60 mL/min/1.73m^2) Est GFR (Non-Af Amer) (>=60 mL/min/1.73m^2) BUN/Creatinine Ratio Glucose (74-106) mg/dL Lactate (0.4-2.0) mmol/L Calcium (8.5-10.1) mg/dL Magnesium (1.8-2.4) mg/dL Total Bilirubin (0.2-1.0) mg/dL AST (15-37) U/L ALT (14-59) U/L Alkaline Phosphatase (46-116) U/L Troponin I High Sens (4.0-51.3) pg/mL NT-Pro-B Natriuret Pep (<=900.0) pg/mL Total Protein (6.4-8.2) g/dL Albumin (3.4-5.0) g/dL Globulin g/dL Albumin/Globulin Ratio Urine Color Yellow (YELLOW) Urine Clarity Clear (CLEAR) Urine pH 5.5 (5.0-9.0) Ur Specific Advance >=1.030 A (1.005-1.025) Urine Protein Trace (NEG/TRACE) mg/dL Urine Glucose (UA) Negative (NEGATIVE) mg/dL Urine Ketones 15 A (NEGATIVE) mg/dL Urine Occult Blood Negative (NEGATIVE) Urine Nitrite Negative (NEGATIVE) Urine Bilirubin Negative (NEGATIVE) Urine Urobilinogen 2.0 A (0.2-1.0) EU/dL Ur Leukocyte Esterase Negative (NEGATIVE) Urine RBC 0-2 (0-2) #/HPF Urine WBC None seen (NONE SEEN) #/HPF Ur Squamous Epith Cells Rare (NONE/RARE) #/LPF Urine Crystals None seen (None Seen) #/HPF Urine Bacteria Trace A (NONE SEEN) #/HPF Urine Casts None seen (NONE SEEN) #/LPF Urine Mucus None seen (NONE SEEN) Ur Culture Indicated? No Influenza Type A Ag Influenza Type B Ag RSV Antigen (NOT DETECTE) SARS-CoV-2 Ag (CV2AG) (NEGATIVE) Imaging Data Chest x-ray: Radiologist's impression: ITS Impressions Chest X-Ray 11/14/25 15:05 IMPRESSION: There is chronic interstitial prominence with hazy airspace opacities bilaterally. This is slightly worse when compared to the prior exam which may represent an infectious process versus pulmonary edema. Impression dictated by: Almas Singh M.D. 11/14/2025 3:22 PM Dictation Location: [facility] Electronically authenticated by: [id number] Y Date: 11/14/2025 15:22 ECG Data Attestation: I personally reviewed and interpreted this ECG as follows: (EKG performed at 1435 hrs. reveals sinus rhythm at 93 bpm. No STEMI. No ectopy or other acute changes.) Critical Care Time Critical Care Time Total Critical Care Time: 45 Attestation: Critical Care I spent a total of? 45 minutes of critical care time in the evaluation and management of this patient. This was necessary to treat or prevent deterioration of the following condition(s): Acute respiratory failure with hypoxia, which the patient had and/or has a high probability of suddenly developing. The patient received BiPAP, antibiotics, oxygen during the time that critical care was provided. Critical care time excludes separately billed procedures. Discharge Plan Discharge Chief Complaint: Shortness of Breath/Dyspnea Clinical Impression: Acute hypoxemic respiratory failure, Influenza A CHF (congestive heart failure) Qualifiers: Heart failure type: unspecified Heart failure chronicity: acute Qualified Code(s): I50.9 - Heart failure, unspecified Pneumonia Qualifiers: Pneumonia type: due to unspecified organism Laterality: unspecified laterality Lung location: unspecified part of lung Qualified Code(s): J18.9 - Pneumonia, unspecified organism Sepsis Qualifiers: Sepsis type: sepsis due to unspecified organism Sepsis acute organ dysfunction status: with acute organ dysfunction Severe sepsis acute organ dysfunction type: unspecified Severe sepsis shock status: without septic shock Qualified Code(s): A41.9 - Sepsis, unspecified organism Patient Disposition: [facility] Time of Disposition Decision: 17:42 Discharge Location: [facility] Discharge location: STEPDOWN Condition: Fair Mode of Transportation: EMS
--- NOTE | 2025-11-14 15:05 | XR_ITS ---
The [address] [address] Patient Name: RHETT MEJIA MRN: [id number] date: 1960 Sex: F Assigned Patient Location: ER Current Patient Location: ER Accession/Order Number: [id number] Exam Date: 11/14/2025 15:00 Report Date: 11/14/2025 15:22 At the request of: OMI VANG Procedure: XR chest 1V XR chest 1V 11/14/2025 3:07 PM SIGNS AND SYMPTOMS: ^short of breath PROTOCOL: Frontal radiograph of the chest COMPARISON: 10/15/2025 FINDINGS: The trachea is midline. The heart and mediastinal structures are within normal limits. There is chronic interstitial prominence with hazy airspace opacities bilaterally. The bony thorax is intact. XR/XR chest 1V IMPRESSION: There is chronic interstitial prominence with hazy airspace opacities bilaterally. This is slightly worse when compared to the prior exam which may represent an infectious process versus pulmonary edema. Impression dictated by: Almas Singh M.D. 11/14/2025 3:22 PM Dictation Location[facility] Electronically authenticated by: [id number] Y Date: 11/14/2025 15:22
[2025-11-14 15:06] LABS: Allen Test POSITIVE (POSITIVE); HCO3 ABG 26.1 mmol/L (22.0-26.0); Oxygen Saturation ABG 93.5 %; PO2 ABG 78.4 mmHg (80.0-100.0)
[2025-11-14] MEDS: IPRATROPIUM/ALBUTEROL SULFATE 3 ML AMPUL.NEB IH (15:06)
[2025-11-14 15:07] LABS: Liters per Minute 6; O2 Mode NC; Puncture Site RR
--- NOTE | 2025-11-14 15:07 | RESP.RT ---
placed on 50% VM post HHN tx
[2025-11-14 15:09] LABS: ABG PCO2 60.6 mmHg (35.0-45.0)
[2025-11-14 15:10] LABS: Hematocrit 36.0 % (36.0-48.0); Hemoglobin 10.9 g/dL (12.0-16.0); Mean Corpuscular HGB Conc 30.3 g/dL (29.9-35.2); Mean Corpuscular Hemoglobin 25.2 pg (26.7-34.0); Mean Corpuscular Volume 83.1 fL (81.0-99.0); Platelet Count 321 10^3/uL (150-450); Red Blood Count 4.33 10^6/uL (4.20-5.40); White Blood Count 11.4 10^3/uL (4.0-11.0)
[2025-11-14 15:25] LABS: Alanine Aminotransferase 108 U/L (14-59); Albumin Globulin Ratio 0.7; Albumin Level 3.0 g/dL (3.4-5.0); Alkaline Phosphatase 447 U/L (46-116); Anion Gap 13.3; Aspartate Amino Transferase 332 U/L (15-37); Blood Urea Nitrogen 10.0 mg/dL (7.0-18.0); Calcium 9.5 mg/dL (8.5-10.1); Carbon Dioxide 27.9 mmol/L (21.0-32.0); Chloride 91 mmol/L (98-107); Estimated GFR (African America >60 (>=60 mL/min/1.73m^2); Estimated GFR (Non-African Ame >60 (>=60 mL/min/1.73m^2); Globulin 4.5 g/dL; Glucose 95 mg/dL (74-106); Potassium 5.2 mmol/L (3.5-5.1); Sodium 127 mmol/L (136-145); Total Protein 7.5 g/dL (6.4-8.2)
[2025-11-14 15:26] LABS: SARS-CoV-2 Ag NEGATIVE (NEGATIVE)
[2025-11-14 15:32] LABS: Magnesium 1.8 mg/dL (1.8-2.4)
[2025-11-14 15:35] LABS: NT Pro B Type Natriuretic Pept 3809.0 pg/mL (<=900.0)
[2025-11-14 15:37] LABS: Lactate/Lactic Acid 3.6 mmol/L (0.4-2.0)
--- OUTSIDE RECORDS SUMMARY | 2025-11-14 15:39 | XMS_ITS | Clinical Summary ---
Author Organization [facility] Address [address] [place] [address] Care Team Providers Care Crusher [employer] Name Role Phone Ke Rahman MD Primary Care Provider Allergies Active AllergyReactionsCriticalityNoted DateCommentsIodinated Contrast Media 11/04/2014 Other reaction(s): other Rrnbpb8911/04/2014 Other reaction(s): other Latex11/04/2014 Other reaction(s): other Lbveifnbia65/19/2014 Other reaction(s): other Moackzkhyng02/19/2014 Other reaction(s): other Povidone-Dwhbrm9711/04/2014 Other reaction(s): other Soy5295Nvxudve91/19/2014 Other reaction(s): other Medications MedicationSigDispense QuantityRefillsLast FilledStart [...] capsule every day by oral route.Active HYDROcodone-acetaminophen ([place]) 5-325 mg tablet Active nortriptyline (Pamelor) 25 [...] bedtime.Active Active Problems ProblemNoted DateDiagnosed DateHistory of pqfatpohjx89/30/2022History of DVT (deep vein thrombosis)08/16/2022 Overview (08/16/2022): In the past. Not on blood thinners per patient. Calculus of gallbladder without cholecystitis without exsbmrpsnge74/21/2022 Overview (08/07/2022): Added automatically from request for surgery [id number] Hhrwzwv2702/10/2018Panic nntlsl1902/10/2018Right lower quadrant pain05/14/2011 Tobacco dependence argpkogk22/28/2011 Resolved Problems ProblemNoted DateDiagnosed DateResolved DateInfected sebaceous cyst08/05/2022 08/16/2022acterial uchqictiu99/25/Edema03/10/ain in limb03/10/Type 1 diabetes hqamqylf80/19/ Candidiasis of skin and nails05/14/Noninfectious gastroenteritis 05/14/besity05/14/ Social History Tobacco UseTypesPacks/DayYears UsedDateSmoking Tobacco: Every YxoFwllmwyooz066 Smokeless Tobacco: Never Tobacco Cessation:Ready to Q uit: Not Asked; Counseling Given: Not Answered Alcohol UseStandard Drinks/WeekCommentsYes0 (1 standard drink = 0.6 oz pure alcohol)PHQ-2AnswerDate RecordedPatient Health Questionnaire-2 Gjwyk190 [place] Safety & EnvironmentAnswerDate RecordedFear of Current or Ex-PartnerNot on file2024Emotionally AbusedNot on file2024hysically AbusedNot on file2024Sexually AbusedNot on file2024hysically or Sexually Abused Not on file2024CommentsUnknownSex and Gender InformationValueDate RecordedSex Assigned at BirthNot on fileLegal RliGreicd69/29/2022 10:03 PM EDT Gender IdentityNot on fileSexual OrientationNot on file Last Filed Vital Signs Vital SignReadingTime TakenCommentsBlood Nmrpfrgn798/8110 1:06 PM EDT Juify2107 1:06 PM HLCCvxjoytziuk60.1 ??C (98.8 ??F)08/27/2022 1:06 PM EDTRespiratory Bmgc533608/16/2022 11:31 AM EDTOxygen Yuftkljiyv69%08/16/2022 11:31 AM EDTInhaled Oxygen Concentration--Widccg55.8 kg (131 lb 12.8 oz)08/27/2022 1:06 PM AIJGyxpgk791 cm (5' 3 )08/16/2022 6:40 AM EDTBody Mass Index23.35 08/16/2022 6:40 AM EDT Plan of Treatment Health MaintenanceDue DateLast DoneCommentsCT Oakivqopsusk1959Colonoscopy 1960Colorectal Cancer Vghupnqvs1959FIT-DNA1959FIT1960 FOBT1960Medicare Annual Wellness (AWV)1960 6096Ebicnbnaffpsm1960 Depression Nnpljwliy52/22/1971Pneumococcal Vaccine: 50+ Years (1 of 2 - PCV) 01/08/19786212Qsgbjmpqk68/22/1999Zoster Vaccines (1 of 2)2009Fall Risk Kalcqlyjo69/22/2024COVID-19 Vaccine (3 - season)/11/2020, 01/18/2021Influenza Vaccine (#1)/01/2021, 08/07/2020, 09/10/2018, Additional history existsAdult Oigxfqs41HIB VaccinesAged OutNo longer eligible based on patient's [...] LAccount TypeRelation to PatientDate of BirthPhone Billing AddressPersonal/LkegvkLkgg1960 [address] [id number] Care Teams Team MemberRelationshipSpecialtyStart DateEnd Ke Rahman MD [address] [facility] [place] [address] PCP - General08/06/22
--- OUTSIDE RECORDS SUMMARY | 2025-11-14 15:39 | XMS_ITS | Clinical Summary ---
Author Organization [facility] Address [address] [place] [address] Care Team Providers Care [employer] Name Role Phone Ke Rahman MD Primary Care Provider [phone] Social History Tobacco UseTypesPacks/DayYears UsedDateSmoking Tobacco: Never Assessed CommentsUnknownSex and Gender InformationValueDate RecordedSex Assigned at Not on fileLegal OfdUyqnvl65/02/2012 10:04 AM ESTGender IdentityNot on file Sexual OrientationNot on file Plan of Treatment Health MaintenanceDue DateLast DoneCommentsAnxiety Gyrlimehi40/22/1977Depression Nzvfuohwb72/22/1977Hepatitis C Rifuyooar83/22/1977DTaP,Tdap,Td Vaccine (1 - Tdap)1978Mammogram Inejukape08/22/1999CT Bzmyykgqdixy98/22/2004Cologuard (FIT-DNA)01/08/20048797Iautmftfyet67/22/2004Colorectal Cancer Ouoseenvj95/22/2004 Diabetes Pmwkhwugo20/22/2004Fecal Occult Blood2004Lipid Screening 01/08/20042570Khiqkzeyusqrx84/22/2004Pneumococcal Vaccine: 50+ (1 of 1 - PCV) 2009Shingrix Vaccine (1 of 2)2009one Density Ajpbaddch80/22/2024 Advance Directive Isosthohdf57/01/2025ovid-19 Vaccine (1 - 2024- season) 2025Influenza Vaccine (#1)2025RSV Vaccine (1 - 1-dose 75+ series) 2034 Insurance Care Teams Team MemberRelationshipSpecialtyStart Date Ke Rahman MD [address] [place] [address] [facility] - General06/18/04
--- OUTSIDE RECORDS SUMMARY | 2025-11-14 15:39 | XMS_ITS | Clinical Summary ---
Author Organization [facility] Address [address] [place] [address] Care Team Providers Care Repair Operator Name Role Phone Unavailable Primary Care Provider Unavailabl e Social History Tobacco UseTypesPacks/DayYears UsedDateSmoking Tobacco: Never Assessed CommentsUnknownSex and Gender InformationValueDate RecordedSex Assigned at Not on fileLegal UteIhafod58/15/2023 6:59 PM EDTGender IdentityNot on fileSexual OrientationNot on file Plan of Treatment Not on file
--- OUTSIDE RECORDS SUMMARY | 2025-11-14 15:40 | XMS_ITS | Patient Health Record ---
Author Organization [facility] [place] Address [address] [place] [address] Care Team Providers Care Inverted Block Operator Name Role Phone Km Rahman Primary Care Provider [phone] Kassandra Owens Unavailable [phone] Allergies Allergen (clinical drug ingredient) Drug/Non Drug Allergy documented on EMR Reaction Allergy Type Onset Date Status IV Iodine Dye (uncoded)anaphylaxisAllergyActiveLatexLatex (uncoded)Unknown AllergyActiveSoy manzanares (uncoded)UnknownAllergyActiveSubstance with sulfonamide structure and antibacterial mechanism of action (substance)Sulfa Antibiotics UnknownDrug AllergyActive Results Component Value Reference Range Notes XR foot LT min 3V Reviewed date:11/28/2024 10:18:39 AM Interpretation: Performing Lab: Notes/Report: Source Facility: [place] [address] [place] [address] XRay Report Signed Patient: VIDA MEJIA MR#: [id number] : 1960 Acct:[id number] Age/Sex: 64 / F ADM Date: 11/26/24 Loc: RAD Attending Dr: Napoleon Rahman M.D. Ordering Physician: Napoleon Rahman M.D. Date of Service: 11/26/24 Procedure(s): XR foot LT min 3V Accession Number(s): [id number] cc: Napoleon Rahman M.D. [place] [address] Patient Name: VIDA MEJIA MRN: [facility]:[id number] date: 1960 Sex: F Assigned Patient Location: RAD Current Patient Location: RAD Accession/Order Number: [id number] Exam Date: 11/26/2024 13:20 Report Date: 11/26/2024 14:05 At the request of: NAPOLEON RAHMAN Procedure: XR foot LT min 3V PROCEDURE: [...] M.D. Signed By: 11/26/241407 DD/ 04 TD/TT: Lock Tender Chief Operator: US venous doppler LE BI Reviewed date:11/28/2024 10:18:39 AM Interpretation: Performing Lab: Notes/Report: Source Facility: [place] [address] Ultrasound Report Signed Patient: VIDA MEJIA MR#: [id number] : 1960 Acct:[id number] Age/Sex: 64 / F ADM Date: 11/26/24 Loc: RAD Attending Dr: Napoleon Rahman M.D. Ordering Physician: Napoleon Rahman M.D. Date of Service: 11/26/24 Procedure(s): US venous doppler LE RT Accession Number(s): [id number] cc: Napoleon Rahman M.D. [place] [id number] Patient Name: VIDA MEJIA MRN: [facility]:[id number] date: 1960 Sex: F Assigned Patient Location: [facility] Current Patient Location: RAD Accession/Order Number: [id number] Exam Date: 11/26/2024 13:20 Report Date: 11/26/2024 14:01 At the request of: NAPOLEON RAHMAN Procedure: US venous doppler LE RT EXAMINATION: [...] Signed By: 11/26/24 1403 DD/ 00 TD/TT: Lock Tender Chief Operator: PROF LOTTIE Rodriguez ([facility]) Reviewed date:10/17/2025 01:56:40 PM Interpretation: Performing Lab: Notes/Report: [facility] , Sodium 130 136-145 mmol/L Potassium3.83.5-5.1 mmol/CUvicsmcv8304-562 mmol/LCarbon Tzmyebe08.021.0-32.0 mmol/LAnion Gap6.5Pdwlozd6446-226 mg/dLBlood Urea Nitrogen4.07.0-18.0 mg/dL Creatinine0.590.55-1.02 mg/dLEstimated GFR ( Loreta>60>=60 mL/min/1.73m 2Estimated GFR (Non- Adriana>60>=60 mL/min/1.73m 2BUN Creatinine Ratio6.8 Qxzjvnn95.08.5-10.1 mg/dLPerforming Lab:see noteML - [facility] LB Troponin I High Sensitivity Reviewed date:10/17/2025 01:56:40 PM Interpretation: Performing Lab: Notes/Report: [facility] ,Troponin I High Hbfudtwjnzb21.34.0-51.3 pg/mL CUT-OFF POINTS HAVE BEEN ESTABLISHED BASED ON THE FOURTH UNIVERSAL DEFINITION OF MYOCARDIAL INFARCTION. THE UPPER REFERENCE LIMIT (URL) OF TROPONIN, DEFINED THE 99TH PERCENTILE OF cTnI DISTRIBUTION IN A REFERENCE POPULATION, HAS BEEN CONFIRMED THE DECISION THRESHOLD FOR IA DIAGNOSIS. 99TH PERCENTILE = 51.4 PG/ML NOTE: HIGH-SENSITIVITY TROPONIN ASSAY IS NOT INTENDED TO BE USED IN ISOLATION BUT SHOULD BE INTERPRETED IN CONJUNCTION WITH OTHER DIAGNOSTIC AND CLINICAL INFORMATION. Performing Lab:see noteML - [facility] LBXR chest 1V Reviewed date:10/17/2025 01:56:40 PM Interpretation: Performing Lab: Notes/Report: Source Facility: [facility]-[address] [place] [address] [place] [address] XRay Report Signed Patient: VIDA MEJIA MR#: [id number] : 1960 Acct:[id number] Age/Sex: 65 / F ADM Date: 10/15/25 Loc: ER Attending Dr: Ordering Physician: Mini Woodall D.O. Date of Service: 10/15/25 Procedure(s): XR chest 1V Accession Number(s): [id number] cc: Mini Woodall D.O.; Napoleon Rahman M.D. [place] [address] Patient Name: VIDA MEJIA MRN: [facility]:[id number] date: 1960 Sex: F Assigned Patient Location: ED.MAIN Current Patient Location: ED.MAIN Accession/Order Number: [id number] Exam Date: 10/15/2025 16:03 Report Date: 10/15/2025 16:19 At the request of: MINI WOODALL Procedure: XR chest 1V XR chest 1V 10/15/2025 4:10 PM SIGNS AND SYMPTOMS: shortness of breath Y PROTOCOL: Frontal radiograph of the chest COMPARISON: 04/07/2024 FINDINGS: The trachea is midline. The heart and mediastinal structures are within normal limits. There is interstitial prominence bilaterally similar to the prior exam. The lung parenchyma is clear. The bony thorax is intact. XR/XR chest 1V IMPRESSION: No acute cardiopulmonary pathology. Chronic-appearing interstitial prominence is redemonstrated. Impression dictated by: Almas Singh M.D. 10/15/2025 4:19 PM Dictation Location: [place] [address] Electronically authenticated by: [id number] Y Date: 10/15/2025 16:19 Dictated By: Almas Singh M.D. Signed By: 10/15/251621 DD/ 18 TD/TT: Lock Tender Chief Operator:CT angio chest Reviewed date:10/17/2025 01:56:40 PM Interpretation: Performing Lab: Notes/Report: Source Facility: [place] [address] CT Scan Report Signed Patient: VIDA MEJIA MR#: [id number] : 1960 Acct:[id number] Age/Sex: 65 / F ADM Date: 10/15/25 Loc: ER Attending Dr: Ordering Physician: Mini Woodall D.O. Date of Service: 10/15/25 Procedure(s): CT angio chest Accession Number(s): [id number] cc: Napoleon Rahman M.D. [place] [address] Patient Name: VIDA MEJIA MRN: [facility]:[id number] date: 1960 Sex: F Assigned Patient Location: ED.MAIN Current Patient Location: ED.MAIN Accession/Order Number: [id number] Exam Date: 10/15/2025 17:30 Report Date: 10/15/2025 18:18 At the request of: MINI WOODALL Procedure: CT angio chest CT angio chest 10/15/2025 5:47 PM SIGN AND SYMPTOMS: shortness of breath CONTRAST: 100 mL of intravenous Omnipaque 300 TECHNIQUE: Multidetector CT axial slices of the chest were obtained with IV contrast. Multiplanar reformats were performed and viewed on a separate workstation and reviewed to further define anatomy and possible pathology. CT was performed with one or more of the following dose reduction techniques: Automated exposure control, adjustment of the mA and/or kV according to patient size, or use of iterative reconstruction technique. COMPARISON: None. FINDINGS: Lower neck: There is a 2.5 cm hypoattenuating left thyroid nodule. Ultrasound correlation is recommended as malignancy is not excluded. Vessels: Atherosclerotic changes are noted in the thoracic aorta, origins of great vessels, and coronary arteries. There is no evidence of pulmonary embolism. Mediastinum and Jodee: Within normal limits. Heart: Normal size. No pericardial effusion. Airways: Within normal limits Lungs: There is dependent atelectasis in the lung bases. There is an 8 mm calcified granuloma in the right lung base. Pleura: Within normal limits. Chest Wall: Within normal limits. Upper Abdomen: Postoperative changes are noted suggesting previous gastric bypass. Bones: There is a dextro convex curvature of the thoracic spine. Degenerative changes are noted in the thoracic spine. CT/CT angio chest IMPRESSION: No acute cardiopulmonary pathology. There is no evidence of pulmonary embolism. There is dependent atelectasis in the lung bases. Impression dictated by: Almas Singh M.D. 10/15/2025 6:18 PM Dictation Location: [place] [address] Electronically authenticated by: [id number] Y Date: 10/15/2025 18:18 Dictated By: Almas Signh M.D. Signed By: 10/15/251820 DD/ 17 TD/TT: Lock Tender Chief Operator:BLOOD GASES BTY (Not yet reviewed by provider) Interpretation: Performing Lab: Notes/Report: [facility] ,pH ABG7.2437.350-7.450RESULTS CALLED TOABG EHM915.635.0-45.0 mmHgRESULTS CALLED TOPO2 ABG78.480.0-100.0 mmHgHCO3 ABG26.122.0-26.0 mmol/LBase Excess ABG-1.2 -2.0-2.0 mmol/LOxygen Saturation ABG93.5Allen TestPOSITIVEPOSITIVEO2 ModeNC Liters per Hubeaj2Xhedmgmj SiteRRPerforming Lab:see noteML - [facility] LBBNP (Not yet reviewed by provider) Interpretation: Performing Lab: Notes/Report: [facility] ,NT Pro B Type Natriuretic Otpk3632.0<=900.0 pg/mLRESULTS CALLED TO TAJ BLANDON at 1533Performing Lab:see noteML - [facility] LBCBC AUTO DIFF (Not yet reviewed by provider) Interpretation: Performing Lab: Notes/Report: [facility] ,White Blood Count11.44.0-11.0 10 3/uLRed Blood Count4.334.20-5.40 10 6/uL Emcxrjyqhw90.912.0-16.0 g/xCIgaydnoiun45.036.0-48.0 %Mean Corpuscular Jonwiv30.1 81.0-99.0 fLMean Corpuscular Wfytxookhp19.226.7-34.0 pgMean Corpuscular HGB Conc 30.329.9-35.2 g/dLRed Cell Distribution Width19.711.0-15.0 %Platelet Uadpe394 150-450 10 3/uLMean Platelet Volume8.89.5-13.5 fLPerforming Lab:see noteML - [facility] LBINFLUENZA A AND B AG (Not yet reviewed by provider) Interpretation: Performing Lab: Notes/Report: [facility] ,Influenza Virus A AntigenPositive NOTE: Live attenuated influenza vaccine viruses can cause a positive result for a rapid influenza diagnostic test if administered up to 7 days prior to rapid testing. Influenza Virus B AntigenNegative Negative for Flu B protein antigen. Infection due to Flu B cannot be ruled out. Flu B antigen in the sample may be below the detection limit of the test. Performing Lab:see noteML - [facility] LBMAGNESIUM (Not yet reviewed by provider) Interpretation: Performing Lab: Notes/Report: [facility] ,Magnesium1.81.8-2.4 mg/dLPerforming Lab:see noteML - [facility] LB PROF 14(COMP METB) (Not yet reviewed by provider) Interpretation: Performing Lab: Notes/Report: [facility] ,Eopnsz433186-705 mmol/LPotassium5.23.5-5.1 mmol/UBujhutjc0675-071 mmol/LCarbon Ungikvj72.921.0-32.0 mmol/LAnion Gap13.2Kvivoll8191-453 mg/dLBlood Urea Nitrogen 10.07.0-18.0 mg/dLCreatinine0.710.55-1.02 mg/dLEstimated GFR ( Loreta>60 >=60 mL/min/1.73m 2Estimated GFR (Non- Adriana>60>=60 mL/min/1.73m 2BUN Creatinine Ratio14.0Voqmnll9.58.5-10.1 mg/dLBilirubin Total1.30.2-1.0 mg/dL Aspartate Amino Jmogootyuge24306-37 U/LAlanine Drhxnvxnifnmptfs84715-22 U/L Alkaline Ppcpottgbsy41221-880 U/LTotal Protein7.56.4-8.2 g/dLAlbumin Level3.0 3.4-5.0 g/dLGlobulin4.5Albumin Globulin Ratio0.7Performing Lab:see noteML - [facility] LBRSV (Not yet reviewed by provider) Interpretation: Performing Lab: Notes/Report: [facility] ,Respiratory Syncytial VirusNot DetectedNOT DETECTEPerforming Lab:see noteML - [facility] LBTroponin I High Sensitivity (Not yet reviewed by provider) Interpretation: Performing Lab: Notes/Report: [facility] ,Troponin I High Bpncmoaxduu26.54.0-51.3 pg/mL CUT-OFF POINTS HAVE BEEN ESTABLISHED BASED ON THE FOURTH UNIVERSAL DEFINITION OF MYOCARDIAL INFARCTION. THE UPPER REFERENCE LIMIT (URL) OF TROPONIN, DEFINED THE 99TH PERCENTILE OF cTnI DISTRIBUTION IN A REFERENCE POPULATION, HAS BEEN CONFIRMED THE DECISION THRESHOLD FOR IA DIAGNOSIS. 99TH PERCENTILE = 51.4 PG/ML NOTE: HIGH-SENSITIVITY TROPONIN ASSAY IS NOT INTENDED TO BE USED IN ISOLATION BUT SHOULD BE INTERPRETED IN CONJUNCTION WITH OTHER DIAGNOSTIC AND CLINICAL INFORMATION. Performing Lab:see noteML - [facility] CCEZVY-LoP-8 Ag* (Not yet reviewed by provider) Interpretation: Performing Lab: Notes/Report: [facility] ,SARS-CoV-2 AgNEGATIVENEGATIVE This test has not been FDA cleared or approved, but has been authorized by the FDA under an Emergency Use Authorization (EUA) for use by authorized laboratories certified under CLIA that meet the requirements to perform moderate or high complexity testing. This test has been authorized only for the detection of proteins from SARS-CoV-2, not for any other viruses or pathogens. The emergency use of this test is authorized for the duration of the declaration that circumstances exist justifying the authorization of emergency use of in vitro diagnostic tests for detection and/or diagnosis of Covid-19 under section 564(b)(1) of the Act, 21 U.S.C. 360bbb-3(b)(1), unless the declaration is terminated or authorization is revoked sooner. Performing Lab:see noteML - [facility] LBECG 12 lead (Not yet reviewed by provider) Interpretation: Performing Lab: Notes/Report: Source Facility: [place] [address] [place] [address] Electrocardiograph Report Draft Patient: VIDA MEJIA MR#: [id number] : 1960 Acct:[id number] Age/Sex: 65 / F ADM Date: Loc: ER Attending Dr: Ordering Physician: Omi Dixon Date of Service: 11/14/25 Procedure(s): ECG 12 lead Accession Number(s): [id number] cc: [facility] Test Date: 2025-11-14 Pat Name: VIDA MEJIA Department: Room: - Gender: Female Director Of Security: : 1960 Requested By: 1039 Order Number: [id number] Reading MD: Measurements Intervals [place] Rate: 93 P: 100 AZ: 122 QRS: 84 QRSD: 86 T: 76 QT: 340 QTc: 391 Interpretive Statements 1100 Sinus rhythm 9110 normal ECG No previous ECG available for comparison Dictated By: Wellington Bradshaw Signed By: DD/ 1435 TD/TT: Lock Tender Chief Operator:XR chest 1V (Not yet reviewed by provider) Interpretation: Performing Lab: Notes/Report: Source Facility: [facility]-[address] [place] [address] [place] [address] XRay Report Signed Patient: VIDA MEJIA MR#: [id number] : 1960 Acct:[id number] Age/Sex: 65 / F ADM Date: Loc: ER Attending Dr: Ordering Physician: Omi Dixon Date of Service: 11/14/25 Procedure(s): XR chest 1V Accession Number(s): [id number] cc: Napoleon Rahman M.D.; Omi Dixon [place] [address] Patient Name: VIDA MEJIA MRN: [id number] date: 1960 Sex: F Assigned Patient Location: ER Current Patient Location: ER Accession/Order Number: [id number] Exam Date: 11/14/2025 15:00 Report Date: 11/14/2025 15:22 At the request of: OMI VANG Procedure: XR chest 1V XR chest 1V 11/14/2025 3:07 PM SIGNS AND SYMPTOMS: short of breath PROTOCOL: Frontal radiograph of the chest COMPARISON: 10/15/2025 FINDINGS: The trachea is midline. The heart and mediastinal structures are within normal limits. There is chronic interstitial prominence with hazy airspace opacities bilaterally. The bony thorax is intact. XR/XR chest 1V IMPRESSION: There is chronic interstitial prominence with hazy airspace opacities bilaterally. This is slightly worse when compared to the prior exam which may represent an infectious process versus pulmonary edema. Impression dictated by: Almas Singh M.D. 11/14/2025 3:22 PM Dictation Location: [place] [address] Electronically authenticated by: [id number] Y Date: 11/14/2025 15:22 Dictated By: Almas Singh M.D. Signed By: 11/14/25 1524 DD/ 1522 TD/TT: Lock Tender Chief Operator:ECG 12 lead Reviewed date:10/17/2025 01:56:40 PM Interpretation: Performing Lab: Notes/Report: Source Facility: [place] [address] Electrocardiograph Report Signed Patient: VIDA MJEIA MR#: [id number] : 1960 Acct:[id number] Age/Sex: 65 / F ADM Date: 10/15/25 Loc: ER Attending Dr: Ordering Physician: Mini Woodall D.O. Date of Service: 10/15/25 Procedure(s): ECG 12 lead Accession Number(s): [id number] cc: [facility] Test Date: 2025-10-15 Pat Name: VIDA MEJIA Department: Room: - Gender: Female Director Of Security: : 1960 Requested By: Mini Woodall Order Number: [id number] Reading MD: LAN NORWOOD M.D. Measurements Intervals Chester Rate: 88 P: 90 AZ: 116 QRS: 66 QRSD: 124 T: 72 QT: 394 QTc: 439 Interpretive Statements 1100 Sinus rhythm 2210 Short AZ interval Cannot rule out Inferior myocardial infarction, probably old 9150 abnormal ECG Compared to ECG 03/02/2024 22:21:31 Short AZ interval now present Possible Myocardial infarct finding now present Electronically Signed On 10-15-2025 16:51:17 EST by LAN NORWOOD M.D. Dictated By: LAN NORWOOD Signed By: 10/15/25 1651 DD/ 1547 TD/TT: Lock Tender Chief Operator:CBC AUTO DIFF Reviewed date:10/17/2025 01:56:40 PM Interpretation: Performing Lab: Notes/Report: [facility] ,White Blood Count9.04.0-11.0 10 3/uLRed Blood Count4.474.20-5.40 10 6/uL Ndikmwbbed50.612.0-16.0 g/yFPlbywdbvma99.236.0-48.0 %Mean Corpuscular Sdltpb21.2 81.0-99.0 fLMean Corpuscular Yymneibfau14.026.7-34.0 pgMean Corpuscular HGB Conc 31.229.9-35.2 g/dLRed Cell Distribution Width18.011.0-15.0 %Platelet Clkxz874 150-450 10 3/uLMean Platelet Volume8.69.5-13.5 fLNeutrophils Percent Auto69.6 43.0-75.0 %Lymphocytes Percent Auto17.220.5-60.0 %Monocytes Percent Auto11.31.7- 12.0 %Eosinophils Percent Auto1.10.9-7.0 %Basophils Percent Auto0.40.2-2.0 % Immature Granulocytes Pct Auto0.40.0-0.5 %Neutrophils Absolute Auto6.21.4-6.5 10 3/uLLymphocytes Absolute Auto1.51.2-3.8 10 3/uLMonocytes Absolute Auto1.00.3-0.8 10 3/uLEosinophils Absolute Auto0.10.0-0.7 10 3/uLBasophils Absolute Auto0.00.0- 0.1 10 3/uLImmature Granulocytes Abs Auto0.040.00-0.03 10 3/uLPerforming Lab:see note - [facility] LBBNP Reviewed date:10/17/2025 01:56:40 PM Interpretation: Performing Lab: Notes/Report: [facility] ,NT Pro B Type Natriuretic Zcma0909.0<=900.0 pg/mLRESULTS CALLED TO DR. MINI WOODALL Performing Lab:see note - [facility] LBCOVID-19, Flu A+B IH Reviewed date:10/17/2025 01:56:40 PM Interpretation: Performing Lab: Notes/Report: COVIDnegFLU AnegFLU BnegControlpresent Reason For Referral Diagnosis 1 Calcaneus fracture, right (S92.001A) Referral Organization [facility] Referring Provider First Name [facility] Referring Provider Last Name [facility] Billy Abdullahi Referred Provider [facility] Referral Priority Routine Diagnosis 1 Calcaneus fracture, right (S92.001A) Referral Organization [facility] Referring Provider First Name [facility] Referring Provider Last Name [facility]erred Provider Billy Abdullahi Referred Provider Special[facility] Orth[facility] urgery Referral Priority Routine Medications Medication SIG (Take, Route, Frequency, Duration) Notes Start Date End Date Status hydrOXYzine HCl 25 MG 1 tablet Orally at bedtime PRN; Duration: 30 days 5ActiveIncentive spirometeras directed DX: COPD BID; Duration: 30 days 4ActiveGabapentin 300 MGtake 2 capsules by mouth three times a day; Duration: 30 daysActiveVitamin C 500 MGOrallyActiveGeodon 20 MG1 capsule with food Orally once daily; Duration: 30 daysActiveVitamin D 400 UNIT2 capsules Orally Once a dayActiveTiotropium Spencer 2.5 MCG/ACT2 puffs Inhalation Once a day; Duration: 30 days12/26/2025ActiveIncentive spirometerUse every hour at directed. DX Heel Fracture; Duration: 365 days06/20/2025tiveKetoconazole 2 %1 application Externally bid; Duration: 14 10/10/2025tivePromethazine HCl 25 MG1 suppository as needed Rectal every 12 hrsPRNActiveTerbinafine HCl 250 MG1 tablet Orally Once a day; Duration: 30 10/10/2025tiveFerrous Sulfate 325 (65 Fe) MG1 tablet Orally BIDActiveVentolin HFA 108 (90 Base) MCG/ACT2 puff as needed Inhalation every 4 hrs05/28/2024ctiveFurosemide 20 MG1 tablet Orally Once a day; Duration: 30 xowlHVI8502/25/2023ctiveVitamin B-12 100 MCGOrallyActive Esomeprazole Magnesium 40 MG1 capsule Orally BID; Duration: 90 daysActive Triamcinolone Acetonide 0.1 %1 application Externally Twice a day; Duration: 08/15/2023ctiveEster-C -as directed OrallyActiveValtrex 1 GM1 tablet Orally TID; Duration: ctiveBuprenorphine 15 MCG/HRAPPLY 1 PATCH TO SKIN ONCE A WEEK Transdermal weekly dxM51.9; Duration: 28 10/26/2025tiveCalcium 150 MGOrallyActiveOndansetron 4 MG1 tablet on the tongue and allow to dissolve Orally qid; Duration: 5 02/02/2025tiveCompression Stocking Thigh 20-30mmHg -wear daily; Duration: 30 06/03/2025tivePotassium Chloride ER 10 MEQ1 tablet with food Orally Twice a day; Duration: 30 daysMICRO K CAPSULES02/25/2023ctiveAmphetamine-Dextroamphetamine 20 MGtake 1 tablet by mouth once daily; Duration: tive Nebulizer/Tubing/Mouthpiece -as directedPRNActiveNystatin 155941 UNIT/GM1 application Externally Twice a day10/06/2025tiveEliquis 5 MG2 po BID for 1 week then 1 po BID Orally BID; Duration: 30 05/25/2025tiveCymbalta 60 MG2 capsule Orally Once a dayActiveProlia 60 MG/MLas directed SubcutaneousActive Dicyclomine HCl 20 MG1 tablet Orally Three times a day; Duration: 30 days 4ActivelevoFLOXacin 750 MG1 tablet Orally Once a day; Duration: 10 day(s)5ActiveAdult Aerosol Mask -as directedPRNActiveMeloxicam 15 MG1 tablet Orally Once a day; Duration: 30 days5ActiveAlbuterol Sulfate (2.5 MG/3ML) 0.083%3 mL as needed Inhalation every 6 hrsPRNActiveMultivitamin Adult -OrallyActiveLidocaine-Prilocaine 2.5-2.5 %Apply small amount topically twice daily; Duration: 30 days4ActiveMagnesium 300 MG2 capsule with a meal Orally Once a daypain clinicActive Immunizations Vaccine Route Administration Date Status Comme nts Flu, Flucelvax (7853-9220) (87850) 6 mos +, single-dose syringe IM Intramuscular 10/08/2023 Administered TkiiFjuvahk18/05/2019Administered Social History Tobacco Use: Social History Observation [...] alcohol in the p ast year? No Evtgje4GyhbbrjfgmmfhdDsteubtjYURAJ-F (Standard) Question Answer Notes Did you have [...] in the past year?Monthly or less (1 point)Zpeeea2LetgjbvjtrsnsiRbferdly Problems Problem Type SNOMED Code ICD Code Onset Dates Problem Status W/U Status Risk Notes Problem Attention deficit hy peractivity disorder (330727398) Attention-deficit hyperactivity disorder, unspecified type (F90.9) ActiveconfirmedProblemPeripheral venous insufficiency (13161306)Venous insufficiency (chronic) (peripheral) (I87.2)ActiveconfirmedProblemMixed simple and mucopurulent chronic bronchitis (687335430)Mixed simple and mucopurulent chronic bronchitis (J41.8)ActiveconfirmedProblemAcute cholecystitis (02785497) Acute cholecystitis (K81.0)ActiveconfirmedProblemPain in limb (24510186)Pain in right upper arm (M79.621)ActiveconfirmedProblemAltered mental status (603352298) Altered mental status, unspecified (R41.82)ActiveconfirmedProblemLocalized edema (0444023)Localized edema (R60.0)ActiveconfirmedProblemNonspecific tuberculin test reaction (813701549)Nonspecific reaction to tuberculin skin test without active tuberculosis (R76.11)ActiveconfirmedProblemContusion of head (disorder) (894677481)Contusion of other part of head, initial encounter (S00.83XA)Active confirmedProblemMigraine variant with headache (disorder) (913008620)Migraine headache (G43.909)ActiveconfirmedProblemCOPD - Chronic obstructive pulmonary disease (35093582)COPD (chronic obstructive pulmonary disease) (J44.9)Active confirmedProblemDiastolic dysfunction (4305632)Diastolic dysfunction (I51.9) ActiveconfirmedProblemAnxiety (09492590)Anxiety (F41.9)ActiveconfirmedProblem Edema (14202046)Edema (R60.9)ActiveconfirmedProblemLymphedema (24936514) Lymphedema (I89.0)ActiveconfirmedProblemHyperglycemia (61796864)Hyperglycemia (R73.9)ActiveconfirmedProblemInsomnia (793497690)Insomnia (G47.00)Active confirmedProblemHiatal hernia (04359656)Hiatal hernia (K44.9)Activeconfirmed ProblemLeft foot drop (971425660281584)Foot drop, left foot (M21.372)Active confirmedProblemBarrett esophagus (572086280)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)Active confirmedProblemBronchitis (67838909)Bronchitis (J40)ActiveconfirmedProblem Tricuspid valve disorder (80244501)Mild tricuspid regurgitation (I07.1)Active confirmedProblemSciatica (62619456)Sciatica of right side (M54.31)Active confirmedProblemThyroid nodule (939021221)Thyroid nodule (E04.1)Activeconfirmed ProblemDisorder of lumbar disc (561096639)Lumbar disc disease (M51.9)Active confirmedProblemSkin lesion (51086570)Skin lesion (L98.9)ActiveconfirmedProblem Well adult (208318782)Well adult (Z00.00)ActiveconfirmedProblemCellulitis (013703956)Cellulitis (L03.90)ActiveconfirmedProblemScoliosis (030255982) Scoliosis (M41.9)ActiveconfirmedProblemPlantar fasciitis (079763592)Plantar fasciitis (M72.2)ActiveconfirmedProblemNear syncope (811715654)Near syncope (R55)ActiveconfirmedProblemChest wall pain (779073588)Chest wall pain (R07.89) ActiveconfirmedProblemSpasm of back muscles (075480179)Spasm of back muscles (M62.830)ActiveconfirmedProblemDystonia (09466668)Dystonia (G24.9)Active 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, bilateral (993021464)Mixed hearing loss, bilateral (H90.6)ActiveconfirmedProblemBasal cell carcinoma (3742792)Basal cell carcinoma (C44.91)ActiveconfirmedProblemPain in left foot (656969033635184)Left foot pain (M79.672)ActiveconfirmedProblemNevus (6301968479)Nevus (D22.9)ActiveconfirmedProblemFibrocystic breast changes (55294915)Fibrocystic breast disease (N60.19)ActiveconfirmedProblemOtosclerosis (03484813)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)ActiveconfirmedProblemTinnitus of left ear (4045583740138)Tinnitus, left (H93.12)ActiveconfirmedProblemSeborrheic keratosis (21096878)Keratosis, seborrheic (L82.1)ActiveconfirmedProblemPanic attack (464777457)Panic attack (F41.0)ActiveconfirmedProblemSuperficial thrombophlebitis (7051386)Superficial thrombophlebitis (I80.9)Activeconfirmed ProblemCellulitis of right hand (14496663808177477)Cellulitis of right hand (L03.113)ActiveconfirmedProblemPeripheral venous insufficiency (48440308)Venous reflux (I87.2)ActiveconfirmedProblemGastro-esophageal reflux disease (815837322) Gastro-esophageal reflux disease (K21.9)ActiveconfirmedProblemClosed fracture of calcaneus (28448815)Calcaneus fracture, right (S92.001A)ActiveconfirmedProblem Shoulder impingement syndrome (735548082)Shoulder impingement syndrome (M75.40) ActiveconfirmedProblemVitamin B deficiency (97813676)Deficiency of vitamin B12 (E53.8)ActiveconfirmedProblemLeg mass, right (R22.41)ActiveconfirmedProblemMass of neck (795959180)Mass of neck (R22.1)ActiveconfirmedProblemCardiomegaly (8845599)Left atrial dilation (I51.7)ActiveconfirmedProblemVaricose veins of lower extremity (74935462)Varicose veins of lower extremity (I83.90)Active confirmedProblemDeep vein thrombophlebitis of lower leg, unspecified laterality (I80.209)ActiveconfirmedProblemBruising (087928810)Bruising (T14.8XXA)Active confirmedProblemHistory of bypass of stomach (705748138)H/O gastric bypass (Z98.84)ActiveconfirmedProblemMyalgia (75078086)Myalgia (M79.10)Activeconfirmed ProblemBenign neoplasm of maxillary sinus (92411955)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)ActiveconfirmedProblemLow back pain (386050198)Low back pain, unspecified (M54.50)Activeconfirmed Vital Signs Heart Rate 102 /min 10/21/2025 Mmtwvajowaa48.4 degrees Rhytquxryq99/05/7717Kohxdblh78 %10/21/2025lood pressure tgigamuyr57 mm Hg10/21/20251091Vnucvj93 in10/21/2025lood pressure toezmwjr481 mm Hg 10/21/20251977Uwdbcx980 lbs112/22/2024BMI26.39 kg/m210/21/2025 Procedures Procedure Date Ordered Date Performed Result Body Sit e Six minute walk 09/05/2025 N/A Encounters Encounter Location Date Provider Diagnosis [address] [address] 05/23/2025 Km Hoy Cellulitis L03.[address] [address] 11/25/2024 Km Hoy Edema R60.9 and Left foot pain M79.[address] [address] 12/08/2024 Km Hoy Body aches R52 ; [address]ilee st congestion R09.89 ; Acute bronchitis, unspecified organism J20.9 ; COPD (chronic obstructive pulmonary disease) J44.9 ; Dyspnea R06.00 and Chest pain R07.[address] [address] 08/19/2025 Km Hoy Gastro-esophageal reflux disease K21.9 and Attention-deficit hyperactivity disorder, unspecified type F90.[address] [address] 09/02/2025 Kassandra Owens COPD (chronic obstructive pulmonary disease) J44.[address] [address] 10/21/2025 Kassandra Owens Lymphedema I89.0 and COPD (chronic obstructive pulmonary disease) J44.[address] [address] 12/22/2024 Km Rahman Sciatica of right si de M54.31 [facility] [address] [place] [address] 11/19/2024 Km Hoy [facility] [place] [address] 11/26/2024Doug [facility] [place] [address]/10/2025Doug [facility] [place] [address]/Doug [facility] [place] [address]/Doug [facility] [place] [address]/Doug [facility] [place] [address]/ Km VizcarrayBenign neoplasm of maxillary sinus D14.0[facility] [address] [place] [address]/01/2025Doug [facility] [place] [address]/Doug [facility] [place] [address]/ Km [facility] [place] [address]/01/2025Doug [facility] [place] [address]/08/2025Doug [facility] [place] [address]/Doug [facility] [place] [address]/Doug HoySciatica of right side M54.31[facility] [place] [address]/Doug [facility] [place] [address]/Doug [facility] [place] [address]/09/2025Doug [facility] [place] [address]/09/2025Doug [facility] [place] [address]/ Km [facility] [place] [address] 03/17/2025Doug [facility] [place] [address]/Doug [facility] [place] [address]/Doug [facility] [place] [address]/Doug [facility] [place] [address]/04/2025Doug [facility] [place] [address]/ [facility] [place] [address]/Doug [facility] [place] [address]/Doug [facility] [id number] [place] [address]/06/2025Doug [facility] [place] [address]/07/2025Doug [facility] [place] [address]/09/2025Doug [facility] [place] [address]/Doug HoyCellulitis L03.90[facility] [place] [address]/Doug [facility] [place] [address]/02/2025Doug HoyCalcaneus fracture, right S92.001A [facility] [place] [address] 06/22/2025Doug HoyCalcaneus fracture, right S92.001AB[facility] [place] [address]/Doug [facility] [place] [address]/03/2025 Km [facility] [place] [address] 08/02/2025Doug [facility] [place] [address]/Doug [facility] [place] [address]/Doug [facility] [place] [address]/Pamela CramerCOPD (chronic obstructive pulmonary disease) J44.9B[facility] [place] [address]/01/2025Doug [facility] [place] [address]/08/2025Doug HoyAttention- deficit hyperactivity disorder, unspecified type F90.9[facility] [address] [place] [place] [address]/Doug [facility] [place] [place] [address]/Doug [facility] [place] [facility] [place] [address] 10/10/2025Doug [facility] [place] [place] [address]/11/2024Doug [facility] [address] [facility], [place] [address]/08/2025Doug [facility] [place] [place] [address]/08/2025Doug [facility] Tksyxjb[address] [facility], [place] [address]/08/2025[facility] [place] [place] [address]/Kassandra JohansenUnityPoint [facility] [facility] [address] 11/11/2025Kassandra Owens Assessments Encounter Date Diagnosis (ICD Code) Assessment Notes Treatment Notes Treatment Clinical Notes Section Notes 12/22/2024 Sciatica of right side (ICD-10 - M54.31) oding well with bzqkfq6911/25/2024Edema (ICD-10 - R60.9)11/25/2024Left foot pain (ICD-10 - M79.672)5Body aches (ICD-10 - R52)12/08/2024hest congestion (ICD-10 - R09.89)05/23/2025ellulitis (ICD-10 - L03.90)us to rule otu DVT and rocephin with double oral ab08/19/2025Gastro-esophageal reflux disease (ICD-10 - K21.9)08/19/2025ttention-deficit hyperactivity disorder, unspecified type (ICD- 10 - F90.9)10/17/2025COPD (chronic obstructive pulmonary disease) (ICD-10 - J44.9) requesting walk test home 02? 10/21/2025Lymphedema (ICD-10 - I89.0) requesting PT referral LE and ? abdomen 10/21/2025OPD (chronic obstructive pulmonary disease) (ICD-10 - J44.9) given spiriva samples recent walk test has neb and inhaler for rescue still smoking 1 ppd 5Benign neoplasm of maxillary sinus (ICD-10 - D14.0)02/02/2025Sciatica of right side (ICD-10 - M54.31)5Cellulitis (ICD-10 - L03.90)06/20/2025 Calcaneus fracture, right (ICD-10 - S92.001A)06/22/2025alcaneus fracture, right (ICD-10 - S92.001A)5COPD (chronic obstructive pulmonary disease) (ICD- 10 - J44.9)5Attention-deficit hyperactivity disorder, unspecified type (ICD-10 - F90.9)5Acute bronchitis, unspecified organism (ICD-10 - J20.9)Rest and drink more liquids, especially water. You may use a humidifier or vaporizer to help keep the drainage moist. Okxi-hbb-tfitrlq Nasal Saline may help the stuffy and runny nose. Use Ibuprofen and or Tylenol as needed for fever, chills, body aches or pain. Children 5 years old should not be given liib-bkv-tpgqkoc cough and cold medications such as guaifenesin and dextromethorphan. If you're over age 5, you may try ctfp-iim-hneorbh cold medications such as guaifenesin and dextromethorphan, or multi-symptom cold reliever such as Dayquil to help reduce the symptoms. Antibiotics have been pre scribed. You should take these until completed and follow the directions. Antibiotics can sometimescause upset stomach, and in rare cases, serious allergic reactions or serious gastrointestinal problems. If you start having severe abdominal pain, severe vomiting, or bloody diarrhea, you should be r eevaluated by your physician or urgent care immediately. Follow up with your Primary Care Provider or return to clinic if symptoms do not improve within 3-5 days. If you develop severe symptoms such as shortness of breath, repeated vomiting, coughing up blood, or chest pain you should go to the emergency room or call [phone] (chronic obstructive pulmonary disease) (ICD-10 - J44.9)12/08/2024Dyspnea (ICD-10 - R06.00)12/08/2024hest pain (ICD-10 - R07.9) Plan Of Treatment Pending Test Test Name Order Date Lexiscan Stress Nuclear Test 12/08/2024 HEMOGLOBIN A1C (GLYCO) 08/19/2025 IRON, TOTAL 08/19/2025 LIPID PANEL (CHOL/TRIG/HDL/LDL) 08/19/20 25 VITAMIN D, 25 LEVEL (TOTAL) 08/19/2025 Six minute walk 09/05/2025 CT Lower Leg RT w/o contrast * (Optional 3D Rendering) 04/01/2023 Echo Complete 02/18/2024 STOOL OCCULT BLOOD 08/19/2025 CT Sinus w/o Contrast 05/25/2024 BLOOD GASES BTY 11/14/2025 BNP 11/14/2025 CBC AUTO DIFF 11/14/2025 GI PANEL (PCR) 04/01/2023 INFLUENZA A AND B AG 11/14/2025 LACTATE or LACTIC ACID 11/14/2025 MAGNESIUM 11/14/2025 OVA AND PARASITE EXAMINATION 10/02/2023 PROF 14(COMP METB) 11/14/2025 RSV 11/14/2025 STOOL CULTURE 10/02/2023 US PREMA DOP LEG LT 05/23/2025 US PREMA DOP LEG RT 05/23/2025 US PREMA DOP LEG RT 11/25/2024 XR CHEST 2 V 04/06/2024 XR FOOT LT MIN 3 VIEWS 11/25/2024 THYROID PANEL (T4/TSH/FREE T3) 5 MM screening mammo BI 08/19/2025 ECG 12 lead 11/14/2025 Troponin I High Sensitivity 11/14/2025 XR chest 1V 11/14/2025 C. Difficile PCR 10/02/2023 SARS-CoV-2 Ag* 11/14/2025 CT CHEST LOW DOSE (LDCT) 08/19/2025 CT sinus w con 05/25/2024 CMP (COMP MET MARIN) w/eGFR CKD-EPI 2024 CBC WITH DIFF 08/19/2025 Insurance Providers Payer Name Payer Address Payer Phone Subscriber Number Group Number Insured Name Patient Relationship to Insured Coverage Start Date Coverage End Date [place] [address] [place] [address] [id number] Daniella Mejia - patient is the insuredO MEDICARE [address]PO [address] [place] [phone], TerriSelf - patient is the insured Medications [...] L4-5 radiofrequency abla tion Vein AblationCervical Epidural/2022Laminectomy L4-S3Gofkd/ lower blephroloplastiesTotal HysterectomyTonsillectomyGastric BypassAppendectomy
[2025-11-14 15:44] LABS: Band Neutrophils Absolute 1.4 10^3/uL (0.0-0.3); Basophils Abs Manual 0.00 10^3/uL (0.00-0.10); Basophils Percent Manual 0.0 % (0.2-2.0); Eosinophils Absolute Manual 0.00 10^3/uL (0.00-0.70); Eosinophils Percent Manual 0.0 % (0.9-7.0); Lymphocytes Absolute Manual 0.79 10^3/uL (1.20-3.80); Lymphocytes Percent Manual 7.0 % (20.5-60.0); Monocytes Absolute Manual 1.02 10^3/uL (0.30-0.80); Monocytes Percent Manual 9.0 % (1.7-12.0); Segmented Neut Absolute Manual 8.20 10^3/uL (1.4-6.5); Segmented Neutrophils % Manual 72.0 (43.0-75.0)
[2025-11-14] MEDS: FUROSEMIDE 40 MG/4 ML VIAL IVP (15:46)
[2025-11-14] MEDS: NITROGLYCERIN 0.4 MG BOTTLE SL (15:46)
[2025-11-14 15:49] LABS: Glucose Urine UA NEGATIVE (NEGATIVE)
[2025-11-14 16:04] LABS: Cast Seen? NONE SEEN #/LPF (NONE SEEN); Crystals Seen? None Seen #/HPF (None Seen); Urine Culture Indicated NO
[2025-11-14] MEDS: OSELTAMIVIR PHOSPHATE 75 MG CAPSULE PO (16:08)
[2025-11-14] MEDS: NITROGLYCERIN IN 5 % DEXTROSE 50 MG/250 ML INFUS..BTL IV (16:09)
[2025-11-14] MEDS: DIAZEPAM 10 MG/2 ML SYRINGE 5 MG IV (16:17)
--- NOTE | 2025-11-14 16:21 | PC.NURSE ---
Pt was very agitated and restless - stated she wanted mask off and repeatedly asked how long she had to wear it Pt given 5mg IV Valium per physician order Pt now resting - not a good seal on bi-pap mask - respiratory called
--- OUTSIDE RECORDS SUMMARY | 2025-11-14 16:33 | XMS_ITS | CCD ---
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 [facility] [address] [place] [address] Dr. Raul PereiraOXYNegativeNormalNEGATIVEElyria Memorial HospitalComment on above: Performed By: #### CBC #### [facility] [address] [address] [address] Raul PereiraPCPNegativeNormalNEGATIVEElyria Memorial HospitalCommclaren [place] on above: Performed By: #### CBC #### [facility] [address] [address] [address] Raul PereiraPPXNegativeNormalNEGATIVEThe Genesis HospitalComment on above: Performed By: #### CBC #### [facility] [address] [address] [address] Raul PereiraTCAPositiveAbnormalNEGATIVEElyria Memorial HospitalCommclaren [place] on above: Performed By: #### CBC #### [facility] [address] [address] [address] Raul PereiraTHCNegativeNormalNEGCleveland Clinic Avon HospitalComment on above: Performed By: #### CBC #### [facility] [address] [address] [address] Raul Tucker THYROXINE INDEX T7on 53-37-4898OHB0.36Jpuuku9.30-4.50The [facility] HospitalCommclaren [place] on above:Performed By: #### CVDTBH #### [facility] [address] [address] [address] Raul PereiraT3U39.0 %Wqygta80.0-39.0The Genesis HospitalComment on above: Performed By: #### CVDTBH #### [facility] [address] [address] [address] Raul PereiraT4 [Mass/Vol]7.40 ug/dLNormal4.80-13.90[facility] Comment on above:Performed By: #### CVDTBH #### [facility] [address] [place] [address] Dr. Raul PereiraGLYCOHEMOGLOBIN A1Con 59-47-7421ATO RECOMMENDATIONSEE BELOWNormal [facility] HospitalComment on above:Result Comment: ADA RECOMMENDED LIMIT 4.0 - 6.0 ADA THERAPEUTIC TARGET < 7.0 ACTION SUGGESTED > 7.0Performed By: #### DATA1C ####[facility] [address] [address]Dr. Raul PereiraGlucose [Mass/Vol]108 mg/dLNormalThe [facility] Comment on above:Performed By: #### DATA1C ####[facility] [address] [address]DrLeann PereiraHbA1c (Bld) [Mass fraction] 5.4 %Normal4.5-6.2The [facility] HospitalComment on above:Performed By: #### DATA1C ####[facility] [address] [address]Dr. Raul PereiraIRONon 16-84-6441Jvvq [Mass/Vol]225.0 ug/dLCritically high 50.0-170.0The [facility] HospitalComment on above:Performed By: #### CVDTBH #### [facility] [address] [place] [address] Dr. Raul PereiraPROF 14(COMP METB)on 17-60-1155Byslsth [Mass/Vol]3.8 g/dLNormal 3.4-5.0The [facility] HospitalComment on above:Performed By: #### CVDTBH #### [facility] [address] [place] [address] Dr. Raul PereiraAlbumin/Globulin [Mass ratio]1.2 {ratio}NormalThe Genesis HospitalComment on above:Performed By: #### CVDTBH #### [facility] [address] [place] [address] Dr. Raul Osborn [Catalytic activity/Vol]77 U/JZbseta74-816Ljy Genesis HospitalComment on above:Performed By: #### CVDTBH #### [facility] [address] [place] [address] Dr. Raul Gomez [Catalytic activity/Vol]19 U/MCnboef27-54Xfm Genesis HospitalComment on above:Performed By: #### CVDTBH #### [facility] [address] [place] [address] Dr. Yilan ChangAnion gap [Moles/Vol]12.9 mmol/LNormalElyria Memorial Hospital Comment on above:Performed By: #### CVDTBH #### [facility] [address] [place] [address] Dr. Raul PereiraAST [Catalytic activity/Vol]17 U/VUzptao51-01Lgq [facility] HospitalComment on above:Performed By: #### CVDTBH #### [facility] [address] [address] [address] Raul PereiraBilirubin [Mass/Vol]0.3 mg/dLNormal0.2-1.0[facility] Comment on above:Performed By: #### CVDTBH #### [facility] [address] [place] [address] Dr. Raul PereiraCalcium [Mass/Vol]8.9 mg/dLNormal8.5-10.1[facility] Comment on above:Performed By: #### CVDTBH #### [facility] [address] [place] [address] Dr. Raul PereiraChloride [Moles/Vol]101 mmol/GLaemph73-741EmoElyria Memorial Hospital Comment on above:Performed By: #### CVDTBH #### [facility] [address] [place] [address] Dr. Raul PereiraCO2 [Moles/Vol]28.5 mmol/LNolvwp22.0-32.0[facility] Comment on above:Performed By: #### CVDTBH #### [facility] [address] [place] [address] Dr. Raul PereiraCreatinine [Mass/Vol]0.59 mg/dLNormal0.55-1.02The [facility] HospitalComment on above:Performed By: #### CVDTBH #### [facility] [address] [place] [address] Dr. Raul AlcantarGFR-AF ARGENTINE>60Normal>=60The Genesis HospitalComment on above:Performed By: #### CVDTBH #### [facility] [address] [place] [address] Dr. Raul AlcantarGFR-NON AF ARGENTINE>60Normal>=60The [facility] HospitalComment on above:Performed By: #### CVDTBH #### [facility] [address] [address] [address] Raul PereiraGlobulin (S) [Mass/Vol]3.1 g/dLNormalThe [facility] HospitalComment on above:Performed By: #### CVDTBH #### [facility] [address] [address] [address] Raul PereiraGlucose [Mass/Vol]84 mg/eLIpedxt23-814Vvm [facility] Comment on above:Performed By: #### CVDTBH #### [facility] [address] [place] [address] Dr. Raul PereiraPotassium [Moles/Vol]4.4 mmol/LNormal3.5-5.1[facility] Comment on above:Performed By: #### CVDTBH #### [facility] [address] [place] [address] Dr. Raul PereiraProtein [Mass/Vol]6.9 g/dLNormal6.4-8.2[facility] Comment on above:Performed By: #### CVDTBH #### [facility] [address] [place] [address] Dr. Raul PereiraSodium [Moles/Vol]138 mmol/VTmmzfj925-521P[facility] Comment on above:Performed By: #### CVDTBH #### [facility] [address] [place] [address] Dr. Raul PereiraUrea nitrogen [Mass/Vol]11.0 mg/dLNormal7.0-18.0The [facility] HospitalComment on above:Performed By: #### CVDTBH #### [facility] [address] [place] [address] Dr. Raul PereiraUrea nitrogen/Creatinine [Mass ratio]18.6 mg/mgNormalThe Genesis HospitalComment on above:Performed By: #### CVDTBH #### [facility] [address] [address] [address] Raul Cortes 03-93-9482JNO6.354 uIU/mLNormal0.358-3.740[facility] on above:Performed By: #### CVDTBH #### [facility] [address] [address] [address] Raul Saleh RANDOM W/MICROSCOPICon [id number] SEENNormalNONE SEENElyria Memorial HospitalComment on above:Performed By: #### CBC #### [facility] [address] [address] [address] Raul PereiraBilirubin Ql (U)NegativeNormalNEGATIVEUc [facility] on above:Performed By: #### CBC #### [facility] [address] [place] [address] Dr. Raul PereiraCASTNONE SEENNormalNONE SEENElyria Memorial HospitalComment on above:Performed By: #### CBC #### [facility] [address] [address] [address] Raul Holdenarity (U)CLEARNormalCLEARElyria Memorial HospitalCommclaren [place] on above: Performed By: #### CBC #### [facility] [address] [address] [address] Raul Valentine (U)YELLOWNormalYELLOWElyria Memorial HospitalComment on above: Performed By: #### CBC #### [facility] [address] [address] [address] Raul PereiraCrystals LM Nom (Urine sed)NONE SEENNormalNONE SEENElyria Memorial HospitalCommclaren [place] on above:Performed By: #### CBC #### [facility] [address] [address] [address] Carter ChangEpithelial cells LM Ql (Urine sed)NONE SEENNormalNONE SEEN /RARE The [facility] HospitalCommclaren [place] on above:Performed By: #### CBC #### [facility] [address] [address] [address] Raul PereiraGlucose Ql (U)NegativeNormalNEGATIVEElyria Memorial HospitalComment on above:Performed By: #### CBC #### [facility] [address] [address] [address] Raul PereiraHemoglobin Ql (U)NegativeNormalNEGATIVEElyria Memorial Hospital Comment on above:Performed By: #### CBC #### [facility] [address] [address] [address] Raul PereiraKetones Ql (U)NegativeNormalNEGATIVEElyria Memorial HospitalComment on above:Performed By: #### CBC #### [facility] [address] [address] [address] Raul PereiraLEUKOCYTESNegativeNormalNEGATIVEElyria Memorial HospitalComment on above:Performed By: #### CBC #### [facility] [address] [place] [address] Dr. Raul PereiraMUCOUSNONE SEENNormalNONE SEENElyria Memorial HospitalComment on above:Performed By: #### CBC #### [facility] [address] [address] [address] Raul PereiraNitrite Ql (U)NegativeNormalNEGATIVEElyria Memorial HospitalComment on above:Performed By: #### CBC #### [facility] [address] [address] [address] Raul PereirapH (U)5.5 [pH]Normal5-9[facility] HospitalComment on above: Performed By: #### CBC #### [facility] [address] [place] [address] Dr. Raul PereiraRBCNONE SEENAbnormal0-2The [facility] HospitalComment on above: Performed By: #### CBC #### [facility] [address] [address] [address] Raul PereiraSPEC GRAVITY1.210Aziiahrr7.005-<=1.025[facility] Comment on above:Performed By: #### CBC #### [facility] [address] [address] [address] Raul PereiraUA PROTEINNegativeNormalNEGATIVE/ TRACEThe [facility] Comment on above:Performed By: #### CBC #### [facility] [address] [address] [address] Raul Barger Qn (U)0.2 {Farrukh'U}/dLNormal0.2 - 1.0[facility] HospitalComment on above:Performed By: #### CBC #### [facility] [address] [place] [address] Dr. Raul PereiraWBCNONE SEENNormalNONE SEENElyria Memorial HospitalComment on above: Performed By: #### CBC #### [facility] [address] [place] [address] Dr. Raul PereiraVITAMIN D 25 OHon 01-25-7818AFV D 25-OH40.8 ng/mLNormalElyria Memorial HospitalComment on above:Performed By: #### CVDTBH #### [facility] [address] [place] [address] Dr. Raul Del RioT D RANGESSEE BELOWPremier Health Miami Valley HospitalComment on above: Result Comment: <20 ng/mL Vit D deficient 20 - <30 ng/mL Vit D insufficient 30 - 100 ng/mL Vit D sufficient >100 ng/mL Potential ToxicityPerformed By: #### CVDTBH #### [facility] [address] [place] [address] Dr. Raul PereiraVC VENOUS REFLUX ALEXUS Ton [id number] VENOUS REFLUX ALEXUS LMT Patient: RHETT MEJIA Exam Date: 01/30/2023 : 1960 Gender:F Ordering : DR NAPOLEON LOPEZ . Admission #: [id number] Family : Order #: [id number] CLICK HERE TO VIEW EXAM RADIOLOGY REPORT [...] thrombus. Compressibility: Normal. Flow: Deep venous reflux. Heel Lift Gouger:Mid/medial lower leg 4.3 mm with 0.8s reflux. [...] great saphenous vein along with dilated, incompetent electrophonic engineer veins and numerous branch saphenous varicosities. 2. 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 Proximal closer with endovenous laser ablation may be beneficial followed by treatment with microfoam chemical ablation. Incompetent lower leg electrophonic engineer vein which may contribute to patient's reflux; laser ablation is recommended. Dilated, incompetent branch saphenous varicosities which would benefit from microfoam chemical ablation. 3. Consultation for endovenous ablation is recommended. Dictated by: Jessica Winkler M.D. on 01/31/2023 at 09:46 Approved by: Jessica Winkler M.D. on 01/31/2023 at 09:51NoMercy Health Kings Mills HospitalCB AUTO DIFFon [id number] #0.0 103/ulNormal0.0-0.1[facility] HospitalComment on above:Performed By: #### CBC #### [facility] [address] [place] [address] Dr. Raul Negretesophils/100 WBC (Bld)0.5 %Normal0.2-2.0[facility] Comment on above:Performed By: #### CBC #### [facility] [address] [address] [address] Raul Baker #0.1 103/ulNormal0.0-0.7ThKettering Health – Soin Medical CenterComment on above: Performed By: #### CBC #### [facility] [address] [address] [address] Raul Alcantarosinophils/100 WBC (Bld)1.7 %Normal0.9-7.0[facility] Comment on above:Performed By: #### CBC #### [facility] [address] [place] [address] Dr. Raul Alcantarrythrocyte distribution width (RBC) [Ratio]18.4 %Critically high 11.0-15.0The [facility] Medical Centerment on above:Performed By: #### CBC #### [facility] [address] [place] [address] Dr. Raul PereiraHematocrit (Bld) [Volume fraction]33.1 %Critically low36.0-48.0 The Genesis HospitalComment on above:Performed By: #### CBC #### [facility] [address] [place] [address] Dr. Raul PereiraHemoglobin (Bld) [Mass/Vol]10.4 g/dLCritically low12.0-16.0The [facility] HospitalComment on above:Performed By: #### CBC #### [facility] [address] [place] [address] Dr. Raul Carrington #0.03 10e3/ulNormal0.00-0.03The [facility] HospitalComment on above:Performed By: #### CBC #### [facility] [address] [place] [address] Dr. Raul Carrington %0.4 %Normal0.0-0.5The [facility] HospitalComment on above: Performed By: #### CBC #### [facility] [address] [place] [address] Dr. Raul EspinozaH #1.9 103/ulNormal1.2-3.8The [facility] HospitalComment on above:Performed By: #### CBC #### [facility] [address] [place] [address] Dr. Raul Sofiamphocytes/100 WBC (Bld)25.2 %Vkwbtv17.5-60.0The [facility] HospitalComment on above:Performed By: #### CBC #### [facility] [address] [place] [address] Dr. Raul LeyvaUAL DIFF REQNONormalThe [facility] HospitalComment on above: Performed By: #### CBC #### [facility] [address] [address] [address] Raul Champion (RBC) [Entitic mass]24.1 pgCritically low26.7-34.0The [facility] HospitalComment on above:Performed By: #### CBC #### [facility] [address] [address] [address] Raul Champion (RBC) [Mass/Vol]31.4 g/mFJjybpk28.9-35.2The [facility] HospitalComment on above:Performed By: #### CBC #### [facility] [address] [address] [address] Raul ChampionV (RBC) [Entitic vol]76.6 fLCritically low81.0-99.0The [facility] HospitalComment on above:Performed By: #### CBC #### [facility] [address] [place] [address] Dr. Raul Villanueva #0.8 103/ulNormal0.3-0.8The [facility] HospitalComment on above:Performed By: #### CBC #### [facility] [address] [place] [address] Dr. Raul Alfordocytes/100 WBC (Bld)10.7 %Normal1.7-12.0[facility] Comment on above:Performed By: #### CBC #### [facility] [address] [address] [address] Raul Sparks #4.7 103/ulNormal1.4-6.5The [facility] HospitalComment on above:Performed By: #### CBC #### [facility] [address] [address] [address] Raul Becerrilutrophils/100 WBC (Bld)61.5 %Lvpvyn04.0-75.0The [facility] HospitalComment on above:Performed By: #### CBC #### [facility] [address] [place] [address] Dr. Raul Lanelet mean volume (Bld) [Entitic vol]8.6 fLCritically low 9.5-13.5The [facility] HospitalComment on above:Performed By: #### CBC #### [facility] [address] [address] [address] Raul PereiraPLT461 103/ulCritically cwhb529-565Ubl [facility] HospitalComment on above:Performed By: #### CBC #### [facility] [address] [address] [address] Raul PereiraRBC4.32 106/ulNormal4.20-5.40The [facility] HospitalComment on above:Performed By: #### CBC #### [facility] [address] [address] [address] Raul PereiraWBC7.6 103/ulNormal4.0-11.0The [facility] HospitalComment on above: Performed By: #### CBC #### [facility] [address] [address] [address] Raul Tucker THYROXINE INDEX T7on 39-73-7151UJH3.36Fjijur4.30-4.50The [facility] HospitalComment on above:Performed By: #### T7, CMP, TSH, LIPID ####[facility] [address] [address]Dr. Raul PereiraT3U35.0 %Uedtkw93.0-39.0The [facility] HospitalComment on above: Performed By: #### T7, CMP, TSH, LIPID ####[facility] [address] [address]Dr. Raul PereiraT4 [Mass/Vol]6.00 ug/dLNormal 4.80-13.90The [facility] HospitalComment on above:Performed By: #### T7, CMP, TSH, LIPID ####[facility] [address] [address]Dr. Raul PereiraGLYCOHEMOGLOBIN A1Con 79-44-9933UQX RECOMMENDATIONSEE BELOW NormalThe [facility] HospitalCommclaren [place] on above:Result Comment: ADA RECOMMENDED LIMIT 4.0 - 6.0 ADA THERAPEUTIC TARGET < 7.0 ACTION SUGGESTED > 7.0Performed By: #### CVDTBH #### [facility] [address] [address] [address] Raul PereiraGlucose [Mass/Vol]108 mg/dLNoKettering Health Greene Memorial on above:Performed By: #### CVDTBH #### [facility] [address] [address] [address] Raul PereiraHbA1c (Bld) [Mass fraction]5.4 %Normal4.5-6.2The [facility] HospitalComment on above:Performed By: #### CVDTBH #### [facility] [address] [address] [address] Raul Stone AND TIBCon 01-13-2023% SATURATION3.5 %NormalThe [facility] HospitalCommclaren [place] on above:Performed By: #### FETIBC, B12FOL, VITAD ####[facility] [address] [address]DrLeann PereiraIron [Mass/Vol]18.0 ug/dLCritically low50.0-170.0[facility] on above:Performed By: #### FETIBC, B12FOL, VITAD ####[facility] [address]xvi[address] [address]DrLeann PereiraTIBC DIRECT 513.0 ug/dLCritically kmow685.0-450.0[facility] on above: Performed By: #### FETIBC, B12FOL, VITAD ####[facility] [address] [address]DrLeann PereiraLIPID PROFILEon 01-13-2023 CHOL-HDL RATIO NORMSEE [facility] HospitalCommclaren [facility] [place] on above:Result Comment: 3.3 - 4.4 LOW RISK 4.4 - 7.1 AVERAGE RISK 7.1 - 11.0 MODERATE RISK >11.0 HIGH RISKPerformed By: #### T7, CMP, TSH, LIPID ####[facility] Jrvelclxfd[address] [address]DrLeann PereiraCholesterol [Mass/Vol]190 mg/dLNormal<=200The Kai HospitalComment on above:Performed By: #### T7, CMP, TSH, LIPID ####[facility] [address] [address]Dr. Yilan ChangCholesterol in HDL [Mass/Vol]71 mg/dL Critically cpfe44-34FhqElyria Memorial HospitalCommclaren northern [place] on above:Performed By: #### T7, CMP, TSH, LIPID ####[facility] [address]ir[address] [address]Dr. Yilan ChangCholesterol in LDL [Mass/Vol]104.6 mg/dLNoMercy Health Kings Mills HospitalComment on above:Performed By: #### T7, CMP, TSH, LIPID ####[facility] V[address] [place], [place] [address]Dr. Yilan ChangCholesterol.total/Cholesterol in HDL [Mass ratio]2.7 {ratio}NormalKettering Health Springfield on above:Performed By: #### T7, CMP, TSH, LIPID ####[facility] Wsqqeihhyd[address] [place], [place] [address]Dr. Yilan ChangHDL NORMAL> or = 60 mg/dl - LOW CARDIOVASCULAR RISK <40 mg/dl - HIGH CARDIOVASCULAR RISKPremier Health Miami Valley HospitalCommclaren [place] on above:Performed By: #### T7, CMP, TSH, LIPID ####[facility] [address] [address]Dr. Yilan ChangLDL CALC NORMALSEE BELOWNoMercy Health Kings Mills HospitalComment on above:Result Comment: <100 mg/dl OPTIMAL 100 - 129 mg/dl NEAR OR ABOVE OPTIMAL 130 - 159 mg/dl BORDERLINE HIGH 160 - 189 mg/dl HIGH >190 mg/dl VERY HIGHPerformed By: #### T7, CMP, TSH, LIPID ####[facility] [address] [place], [place] [address]Dr. Yilan ChangTriglyceride [Mass/Vol]72 mg/dLNormal<=150[facility] HospitalComment on above:Performed By: #### T7, CMP, TSH, LIPID ####[facility] Opqohbyvya[address] [place], [place] [address]Dr. Raul PereiraVLDL CALC14.4 mg/dLNormalThe Genesis HospitalComment on above:Performed By: #### T7, CMP, TSH, LIPID ####[facility] [address]fp[address] [address]Dr. Raul PereiraPROF 14(COMP METB)on 11-21-3523Hxuvxhc [Mass/Vol]3.5 g/dLNormal3.4-5.0The [facility] HospitalComment on above:Performed By: #### T7, CMP, TSH, LIPID ####[facility] [address] [address]Dr. Raul Pereira Albumin/Globulin [Mass ratio]1.1 {ratio}NormalThe Genesis HospitalComment on above:Performed By: #### T7, CMP, TSH, LIPID ####[facility] [address]ngf[address] [address]Dr. Raul PereiraALP [Catalytic activity/Vol]92 U/CSvgpjr32-991Hsa [facility] HospitalComment on above:Performed By: #### T7, CMP, TSH, LIPID ####[facility] [address]oodzy[address] [address]Dr. Raul PereiraALT [Catalytic activity/Vol]17 U/L Ochnks31-95Llz [facility] HospitalComment on above:Performed By: #### T7, CMP, TSH, LIPID ####[facility] Osw[address]heeuua[address] [address] [address]Dr. Raul PereiraAnion gap [Moles/Vol]10.0 mmol/LNormalThe [facility] Comment on above:Performed By: #### T7, CMP, TSH, LIPID ####[facility] S[address]ctpgch[address] [address]Dr. Raul ChangAST [Catalytic activity/Vol]17 U/EWfmbgo73-00Urg [facility] HospitalComment on above:Performed By: #### T7, CMP, TSH, LIPID ####[facility] X[address]moxidch[address] [address] [address]Dr. Raul ChangBilirubin [Mass/Vol]0.2 mg/dLNormal 0.2-1.0The [facility] HospitalCommclaren northern [place] on above:Performed By: #### T7, CMP, TSH, LIPID ####[facility] [address]yh[address] [address] [address]Dr. Yilan ChangCalcium [Mass/Vol]8.8 mg/dLNormal8.5-10.1The [facility] HospitalComment on above:Performed By: #### T7, CMP, TSH, LIPID ####[facility] M[address]uyoxgtvu[address] [place], [place] [address]Dr. Yilan Pereira Chloride [Moles/Vol]101 mmol/AVyyeil32-126Xcr [facility] HospitalComment on above: Performed By: #### T7, CMP, TSH, LIPID ####[facility] Fceemtjwxy[address] [place], [place] [address]Dr. Yilan ChangCO2 [Moles/Vol]29.4 mmol/LNormal 21.0-32.0The [facility] HospitalComment on above:Performed By: #### T7, CMP, TSH, LIPID ####[facility] F[address]pflfjnf[address] [place], [place] [address]Dr. Yilan ChangCreatinine [Mass/Vol]0.50 mg/dLCritically low0.55-1.02[facility] on above:Performed By: #### T7, CMP, TSH, LIPID ####[facility] [address]nsbuv[address] [place], [place] [address]Dr. Yilan ChangEGFR-AF ARGENTINE>60Normal>=60[facility] on above: Performed By: #### T7, CMP, TSH, LIPID ####[facility] Qmxoyhbdmm0[address] [place], [place] [address]Dr. Yilan ChangEGFR-NON AF ARGENTINE>60Normal>=60 [facility] on above:Performed By: #### T7, CMP, TSH, LIPID ####[facility] Fkcwlebidz[address] [place], [place] [address]Dr. Yilan ChangGlobulin (S) [Mass/Vol]3.2 g/dLNormalThe [facility] HospitalCommclaren northern [place] on above:Performed By: #### T7, CMP, TSH, LIPID ####[facility] [address]ax[address] [address]Dr. Yilan ChangGlucose [Mass/Vol]88 mg/lIBuqrgx94-062Irl [facility] HospitalComment on above:Performed By: #### T7, CMP, TSH, LIPID ####[facility] [address]dfgoz[address] [address]Dr. Yilan ChangPotassium [Moles/Vol]4.4 mmol/LNormal 3.5-5.1The [facility] HospitalComment on above:Performed By: #### T7, CMP, TSH, LIPID ####[facility] [address]kwee[address] [address]Dr. Yilan ChangProtein [Mass/Vol]6.7 g/dLNormal6.4-8.2[facility] Comment on above:Performed By: #### T7, CMP, TSH, LIPID ####[facility] E[address]hpjajwk[address] [place], [place] [address]Dr. Yilan ChangSodium [Moles/Vol]136 mmol/VBvxxof776-443Nam [facility] HospitalComment on above: Performed By: #### T7, CMP, TSH, LIPID ####[facility] Orptvzfyzm[address] [place], [place] [address]Dr. Yilan ChangUrea nitrogen [Mass/Vol]12.0 mg/dLNormal7.0-18.0The [facility] HospitalCommclaren northern [place] on above:Performed By: #### T7, CMP, TSH, LIPID ####[facility] [address]endgvof[address] [place], [place] [address]Dr. Yilan ChangUrea nitrogen/Creatinine [Mass ratio]24.0 mg/mgNormal The [facility] HospitalComment on above:Performed By: #### T7, CMP, TSH, LIPID ####[facility] [address]ubrcyyx[address] [place], [place] [address]Dr. Yilan ChangTSHon 04-36-1637OLU1.623 uIU/mLNormal0.358-3.740[facility] Comment on above:Performed By: #### T7, CMP, TSH, LIPID ####[facility] [address] [address]Dr. Raul Del RioT B12 AND FOLATEon 03-25-6140Awlzcjcei (Vitamin B12) [Mass/Vol]872.0 pg/mLNormal 193.0-986.0The [facility] HospitalComment on above:Performed By: #### FETIBC, B12FOL, VITAD ####[facility] [address] [place] [address]Dr. Raul PereiraZvfxfFUMFQV69.20 ng/mLNormal8.60-58.90[facility] Comment on above:Performed By: #### FETIBC, B12FOL, VITAD ####[facility] [address] [address]Dr. Raul PereiraVITAMIN D 25 OHon 69-14-2570CSE D 25-OH40.6 ng/mLNormalThe [facility] HospitalComment on above: Performed By: #### FETIBC, B12FOL, VITAD ####[facility] [address] [address]Dr. Raul Emery D RANGESSEE BELOWNormal The [facility] HospitalComment on above:Result Comment: <20 ng/mL Vit D deficient 20 - <30 ng/mL Vit D insufficient 30 - 100 ng/mL Vit D sufficient >100 ng/mL Potential ToxicityPerformed By: #### FETIBC, B12FOL, VITAD ####[facility] [address]beui[address] [address]DrLeann PereiraCBC AUTO DIFF on 22-15-2360IZPN #0.1 103/ulNormal0.0-0.1The [facility] HospitalComment on above: Performed By: #### CVDTBH #### [facility] [address] [place] [address] Dr. Raul Patinophils/100 WBC (Bld)0.6 %Normal0.2-2.0[facility] Comment on above:Performed By: #### CVDTBH #### [facility] [address] [place] [address] Dr. Raul Baker #0.1 103/ulNormal0.0-0.7The [facility] HospitalComment on above: Performed By: #### CVDTBH #### [facility] [address] [place] [address] Dr. Raul Alcantarosinophils/100 WBC (Bld)1.3 %Normal0.9-7.0[facility] Comment on above:Performed By: #### CVDTBH #### [facility] [address] [place] [address] Dr. Raul Alcantarrythrocyte distribution width (RBC) [Ratio]18.4 %Critically high 11.0-15.0The [facility] HospitalComment on above:Performed By: #### CVDTBH #### [facility] [address] [place] [address] Dr. Raul PereiraHematocrit (Bld) [Volume fraction]37.8 %Mfuvxt48.0-48.0The [facility] HospitalComment on above:Performed By: #### CVDTBH #### [facility] [address] [place] [address] Dr. Raul PereiraHemoglobin (Bld) [Mass/Vol]11.6 g/dLCritically low12.0-16.0The [facility] HospitalComment on above:Performed By: #### CVDTBH #### [facility] [address] [place] [address] Dr. Raul Carrington #0.02 10e3/ulNormal0.00-0.03The [facility] HospitalComment on above:Performed By: #### CVDTBH #### [facility] [address] [place] [address] Dr. Raul Carrington %0.3 %Normal0.0-0.5The [facility] HospitalComment on above: Performed By: #### CVDTBH #### [facility] [address] [place] [address] Dr. Ralu EspinozaH #1.7 103/ulNormal1.2-3.8The [facility] HospitalComment on above:Performed By: #### CVDTBH #### [facility] [address] [place] [address] Dr. Raul Sofiamphocytes/100 WBC (Bld)21.0 %Zxqmvp18.5-60.0The [facility] HospitalComment on above:Performed By: #### CVDTBH #### [facility] [address] [place] [address] Dr. Raul LeyvaUAL DIFF REQNONormalThe [facility] HospitalComment on above: Performed By: #### CVDTBH #### [facility] [address] [place] [address] Dr. Raul Champion (RBC) [Entitic mass]24.1 pgCritically low26.7-34.0The [facility] HospitalComment on above:Performed By: #### CVDTBH #### [facility] [address] [place] [address] Dr. Raul Champion (RBC) [Mass/Vol]30.7 g/hTVzblfo17.9-35.2The [facility] HospitalComment on above:Performed By: #### CVDTBH #### [facility] [address] [place] [address] Dr. Raul Champion (RBC) [Entitic vol]78.6 fLCritically low81.0-99.0The [facility] HospitalComment on above:Performed By: #### CVDTBH #### [facility] [address] [place] [address] Dr. Raul Villanueva #0.6 103/ulNormal0.3-0.8The [facility] HospitalComment on above:Performed By: #### CVDTBH #### [facility] [address] [place] [address] Dr. Raul Alfordocytes/100 WBC (Bld)7.5 %Normal1.7-12.0[facility] Comment on above:Performed By: #### CVDTBH #### [facility] [address] [place] [address] Dr. Raul Sparks #5.4 103/ulNormal1.4-6.5The [facility] HospitalComment on above:Performed By: #### CVDTBH #### [facility] [address] [place] [address] Dr. Raul Becerrilutrophils/100 WBC (Bld)69.3 %Sybusg82.0-75.0The [facility] HospitalComment on above:Performed By: #### CVDTBH #### [facility] [address] [place] [address] Dr. Raul PereiraPlatelet mean volume (Bld) [Entitic vol]9.0 fLCritically low 9.5-13.5The [place] HospitalComment on above:Performed By: #### CVDTBH #### [facility] [address] [place] [address] Dr. Raul PereiraPLT516 103/ulCritically phta011-518Gov [facility] HospitalComment on above:Performed By: #### CVDTBH #### [facility] [address] [place] [address] Dr. Raul PereiraRBC4.81 106/ulNormal4.20-5.40The [facility] HospitalComment on above:Performed By: #### CVDTBH #### [facility] [address] [place] [address] Dr. Raul PereiraWBC7.8 103/ulNormal4.0-11.0The [facility] HospitalComment on above: Performed By: #### CVDTBH #### [facility] [address] [place] [address] Dr. Raul Parekh BLOODon 11-30-8301Qdgujtudbuv examination of blood, cultureCulture Observations: NO GROWTH AT 5 DAYS.NormalThe Genesis HospitalComment on above:Performed By: #### BLDCX2 #### [facility] [address] [place] [address] Dr. Raul PereiraMicroscopic examination of blood, cultureCulture Observations: NO GROWTH AT 5 DAYS.NormalThe [place] HospitalComment on above:Performed By: #### BLDCX1 ####[facility] [address] [address]Dr. Raul PereiraPROF 14(COMP METB)on 18-53-4048Jccmvwy [Mass/Vol]3.7 g/dL Normal3.4-5.0The [facility] HospitalComment on above:Performed By: #### CBC #### [facility] [address] [address] [address] Raul PereiraAlbumin/Globulin [Mass ratio]0.9 {ratio}NormalThe Genesis HospitalComment on above:Performed By: #### CBC #### [facility] [address] [address] [address] Raul VitaleP [Catalytic activity/Vol]105 U/SDhajln54-051Dxu Genesis HospitalComment on above:Performed By: #### CBC #### [facility] [address] [place] [address] Dr. Raul VitaleT [Catalytic activity/Vol]18 U/GIvyklj22-59Jby [facility] HospitalComment on above:Performed By: #### CBC #### [facility] [address] [address] [address] Raul Wilde gap [Moles/Vol]10.8 mmol/LNormalThe [facility] Comment on above:Performed By: #### CBC #### [facility] [address] [place] [address] Dr. Raul PereiraAST [Catalytic activity/Vol]21 U/MCcrfok41-21Oxj [facility] HospitalComment on above:Performed By: #### CBC #### [facility] [address] [place] [address] Dr. Raul PereiraBilirubin [Mass/Vol]0.3 mg/dLNormal0.2-1.0The [facility] Comment on above:Performed By: #### CBC #### [facility] [address] [address] [address] Raul PereiraCalcium [Mass/Vol]9.1 mg/dLNormal8.5-10.1[facility] Comment on above:Performed By: #### CBC #### [facility] [address] [address] [address] Raul PereiraChloride [Moles/Vol]100 mmol/UEpowlr20-310Ykz [facility] Comment on above:Performed By: #### CBC #### [facility] [address] [place] [address] Dr. Raul PereiraCO2 [Moles/Vol]30.8 mmol/KCsdvja93.0-32.0The [facility] Comment on above:Performed By: #### CBC #### [facility] [address] [place] [address] Dr. Raul PereiraCreatinine [Mass/Vol]0.58 mg/dLNormal0.55-1.02The [facility] HospitalComment on above:Performed By: #### CBC #### [facility] [address] [place] [address] Dr. Carter ChangEGFR-AF ARGENTINE>60Normal>=60The [facility] HospitalComment on above:Performed By: #### CBC #### [facility] [address] [place] [address] Dr. Raul AlcantarGFR-NON AF ARGENTINE>60Normal>=60The [facility] HospitalComment on above:Performed By: #### CBC #### [facility] [address] [place] [address] Dr. Raul PereiraGlobulin (S) [Mass/Vol]4.1 g/dLNormalThe [facility] HospitalComment on above:Performed By: #### CBC #### [facility] [address] [place] [address] Dr. Raul PereiraGlucose [Mass/Vol]86 mg/qUNcihka02-553Nmv [facility] Comment on above:Performed By: #### CBC #### [facility] [address] [place] [address] Dr. Raul PereiraPotassium [Moles/Vol]4.6 mmol/LNormal3.5-5.1The [facility] Comment on above:Performed By: #### CBC #### [facility] [address] [place] [address] Dr. Raul PereiraProtein [Mass/Vol]7.8 g/dLNormal6.4-8.2The [facility] Comment on above:Performed By: #### CBC #### [facility] [address] [address] [address] Raul PereiraSodium [Moles/Vol]137 mmol/HUwlous110-989Vfz [facility] Comment on above:Performed By: #### CBC #### [facility] [address] [address] [address] Raul PereiraUrea nitrogen [Mass/Vol]9.0 mg/dLNormal7.0-18.0The [facility] HospitalComment on above:Performed By: #### CBC #### [facility] [address] [address] [address] Raul [place] nitrogen/Creatinine [Mass ratio]15.5 mg/mgNoMercy Health Kings Mills HospitalComment on above:Performed By: #### CBC #### [facility] [address] [address] [address] Raul Ram PREMA DOP LEG RTon 59-93-8100GQ PREMA DOP LEG RTEXAMINATION: US PREMA DOP [...] Electronically authenticated by: JESSICA WINKLER Date: 2023-01-10 10:43[facility] HospitalCovid-19 PCR (CVDTBH)on 03-08-6247HLHB-CoV-2 (COVID-19) RNA IMELDA+probe Ql (Unsp spec)Not detectedNormalNOT DETECTEDThe [facility] Comment on above:Result Comment: This test is not yet approved or cleared by the [place] FDA. When there are no FDA-approved or cleared tests available, and other criteria are met, FDA can make tests available under an emergency access mechanism called an Emergency Use Authorization (EUA). The EUA for this test is supported by the [employer] Mer[employer] Machine Operator of Health and Human Service's (HHS's) [...] consistent with SARS-CoV-2.Performed By: #### CVDTBH #### [facility] [address] [place] [address] Dr. Raul PereiraCALCIUMon 88-76-6193Wrcdnkc [Mass/Vol]9.7 mg/dLNormal8.5-10.1The [facility] HospitalComment on above:Performed By: #### CVDTBH #### [facility] [address] [place] [address] Dr. Raul PereiraCREATININEon 00-67-9288Qisrjgjawo [Mass/Vol]0.53 mg/dLCritically low0.55-1.02[facility] on above:Performed By: #### CBC #### [facility] [address] [place] [address] Dr. Raul AlcantarGFR-AF ARGENTINE>60Normal>=60The [facility] HospitalComment on above:Performed By: #### CBC #### [facility] [address] [place] [address] Dr. Raul AlcantarGFR-NON AF ARGENTINE>60Normal>=60[facility] on above:Performed By: #### CBC #### [facility] [address] [place] [address] Dr. Raul Krishnamurthy Visiton 34-99-3942Gkqxwh-up [id number] Rhett Mejia 1960 F Date Provider Department Center 08/27/2022 MICAELA MATA [facility] SURG Second Fl No family history on file Level of Service:50694 MD POSTOP FOLLOW UP VISIT RELATED TO ORIGINAL PX Reason for Visit and Comments: Post-op [483] - Rhett is here today for a post op visit, s/p 08/16/22 [facility] CHOLENormalUniversSelect Medical Cleveland Clinic Rehabilitation Hospital, Edwin ShawHISTOLOGY - TISSUE EXAMon [id number] AP CASE REPORTNormalUniversSelect Medical Cleveland Clinic Rehabilitation Hospital, Edwin ShawComment on above:Order Comment: Pre-op diagnosis:Calculus of gallbladder without cholecystitis without obstruction [K80.20]Result Comment: Surgical Pathology Case: [id number] Authorizing Provider: Micaela Gupta MD Collected: 08/16/2022 0842 Ordering Location: [facility] Main Operating Room Received: 08/16/2022 1001 Pathologist: Maricruz Warren MD Specimen: Gallbladder, GALLBLADDERPerformed By: #### [id number] ####[facility] (BEAK[facility])[address] [facility], [place] [id number] AP CLINICAL INFORMATIONNormal [facility] CampusComment on above:Order Comment: Pre-op diagnosis:Calculus of gallbladder without cholecystitis without obstruction [K 80.20]Result Comment: Pre-op diagnosis: Calculus of gallbladder without cholecystitis without obstruction [K80.20] Performed By: #### [id number] ####[facility] ([facility])[address] [facility], [place] [id number] AP GROSS DESCRIPTIONA. Gallbladder.NormalUnCincinnati Shriners HospitalComment on above:Order Comment: Pre-op diagnosis:Calculus of gallbladder without cholecystitis without obstruction [K80.20]Result Comment: Received in formalin , labeled Rhett L Ihlary, GALLBLADDER . The specimen consists of a [...] 0.1 to 0.2 cm in maximum thickness. Ore Dryer sections submitted as follows: Cassette 1: Cystic duct resection margin and neck Cassette 2: Body and fundus Ankit Koroma, Pathologists' AssistantPerformed By: #### [id number] ####[facility] ([facility])[address] [place], [place] [address]QVY AP MICROSCOPIC DESCRIPTIONMicroscopic examination performedNoalUCleveland ClinicCommclaren northern [place] on above:Order Comment: Pre-op diagnosis:Calculus of gallbladder without cholecystitis without obstruction [K80.20]Performed By: #### [id number] ####[facility] ([facility])[address] [facility], [place] [id number] REPORT FINAL DIAGNOSIS NARRATIVENormalUCleveland ClinicCommclaren northern [place] on above:Order Comment: Pre-op diagnosis:Calculus of gallbladder without cholecystitis without obstruction [K80.20]Result Comment: Gallbladder, cholecystectomy: - Cholelithiasis and cholesterolosis. Performed By: #### [id number] ####[facility] ([facility])[address] [place], [place] [address]DHlt [phone] Attestation signed by Micaela Gupta MD at 08/16/2022 7:34 AM Attending Physician Statement I have discussed the case, including pertinent history and exam findings with Dr. Del Angel, residential real estate appraiser and have personally seen the patient. I agree with the assessment, plan and orders as documented. [phone] pager [phone] phone [facility] General Surgery HISTORY & PHYSICAL Chief [...] History: Diagnosis Date Anxiety Arthritis Chronic bronchitis ([facility]) Depression DVT (deep venous thrombosis) ([facility]) Gall bladder [...] Lab Results Component Value (more content not included)...[facility] [id number]. Pain minimal. DC criteria met. IV dc'd and patient getting dressed. 1155 Stable for discharge.[facility] HospitalED instructions reviewed with patient and Granddaughter, allowed time for questions, copy given.[facility] HospitalNPINON HEALTH CENTERNOTEReeleanor slater hospital rec'd and care assumed. No assessment changes. Pain minimal.[facility] Medical CenterNOTE0920 Recovery called.[facility] HospitalNOTCopper Queen Community Hospital [id number], LAPAROSCOPIC Operative Note Date: 08/16/2022 Location: [facility] OR Name: Rhett Mejia, : 1960, Diagnosis Pre-op Diagnosis * Calculus of gallbladder without cholecystitis without obstruction [K80.20] * History of gastric bypass [Z98.84] Post-op Diagnosis * Calculus of gallbladder without cholecystitis without obstruction [K80.20] * History of gastric bypass [Z98.84] Procedures CHOLECYSTECTOMY, LAPAROSCOPIC [id number] - MD LAPS SURG CHOLECYSTECTOMY W/CHOLANGIOGRAPHY Surgeons * Micaela Gupta - Primary * Robyn Del Angel Procedure Summary Anesthesia: General ASA: III Estimated Blood Loss: 10 mL Total IV Fluids: 1000 mL Drains: * None in log * Specimens ID Source Type Tests Collected By Collected At Frozen? Priority Lab ID A Gallbladder Tissue HISTOLOGY - TISSUE EXAM Micaela Gupta MD 08/16/22 0842 No [id number] Description: GALLBLADDER Staff: Dining Chair Seat Cushion Trimmer: Zeny De La Cruz RN Scrub Person: [...] PACU - hemodynamically stable. Condition: stable Normal [facility] West CampusPOCT GLUCOSE METER UNSOLICITED RESULTSon 58-08-8961Vdkcsbs [Mass/Vol]88 mg/fDLfduso52-168GoqyokhzmfCincinnati Shriners HospitalComment on above:Result Comment: epawlowPerformed By: #### [id number] #### [facility] ([facility]) [address] [place], [place] [address]RHKX SARS-COV-2 PCRon [id number] SARS-COV-2 ANTIGENNegative NormalNegativeUnCincinnati Shriners HospitalComment on above:Result Comment: ID NOW COVID-19 [...] of Compliance, or Certificate ofAccreditation.Performed By: #### [id number] ####[facility] ([facility])[address] [place], [place] [address]Brzmxq Onlyon 08-14-2022 Orders [id number] Rhett Mejia 1960 F Date Provider Department Center 08/14/2022 [id number], [facility] Medical C No family history on fileNormalUniversity [facility]1000006on [id number] after [place] Must have a milk driver to take you home and someone to stay for 24 hours after surgery. No jewelry. Hold the meds we spoke about: NSAIDS Take the meds we spoke about w/a sip of water DOS: GAPAPENTIN, NEXIUM, INHALER, CYMBALTA Bring insurance card and ID. LABS AND COVID TO BE DONE IN [place].NormalUnCincinnati [facility]ers Hospital CBC AUTO DIFFon [id number] #0.0 103/ulNormal0.0-0.1[facility] Comment on above:Performed By: #### CBC #### [facility] [address] [address] [address] Raul PereiraBasophils/100 WBC (Bld)0.4 %Normal0.2-2.0[facility] Comment on above:Performed By: #### CBC #### [facility] [address] [place] [address] Dr. Raul Baker #0.1 103/ulNormal0.0-0.7The [facility] HospitalComment on above: Performed By: #### CBC #### [facility] [address] [address] [address] Raul Alcantarosinophils/100 WBC (Bld)1.2 %Normal0.9-7.0[facility] Comment on above:Performed By: #### CBC #### [facility] [address] [address] [address] Raul Alcantarrythrocyte distribution width (RBC) [Ratio]18.6 %Critically high 11.0-15.0The [facility] HospitalComment on above:Performed By: #### CBC #### [facility] [address] [place] [address] Dr. Raul PereiraHematocrit (Bld) [Volume fraction]39.1 %Wxamdv26.0-48.0The [facility] HospitalComment on above:Performed By: #### CBC #### [facility] [address] [place] [address] Dr. Raul PereiraHemoglobin (Bld) [Mass/Vol]12.5 g/nYZtdrjy08.0-16.0The [facility] HospitalComment on above:Performed By: #### CBC #### [facility] [address] [place] [address] Dr. Raul Carrington #0.03 10e3/ulNormal0.00-0.03The [facility] HospitalComment on above:Performed By: #### CBC #### [facility] [address] [place] [address] Dr. Raul Carrington %0.4 %Normal0.0-0.5The [facility] HospitalComment on above: Performed By: #### CBC #### [facility] [address] [place] [address] Dr. Raul Bautista #2.0 103/ulNormal1.2-3.8The [facility] HospitalComment on above:Performed By: #### CBC #### [facility] [address] [place] [address] Dr. Raul Espinozahocytes/100 WBC (Bld)27.2 %Jptvrj82.5-60.0The [facility] HospitalComment on above:Performed By: #### CBC #### [facility] [address] [place] [address] Dr. Raul LeyvaUAL DIFF REQNONormalThe Genesis HospitalComment on above: Performed By: #### CBC #### [facility] [address] [place] [address] Dr. Raul Champion (RBC) [Entitic mass]27.2 ktFhtolt70.7-34.0The [facility] HospitalComment on above:Performed By: #### CBC #### [facility] [address] [place] [address] Dr. Raul Champion (RBC) [Mass/Vol]32.0 g/qCVpcsmh46.9-35.2The [facility] HospitalComment on above:Performed By: #### CBC #### [facility] [address] [place] [address] Dr. Raul Champion (RBC) [Entitic vol]85.2 vDNhbudo37.0-99.0The [facility] HospitalComment on above:Performed By: #### CBC #### [facility] [address] [address] [address] Raul Villanueva #0.7 103/ulNormal0.3-0.8The [facility] HospitalComment on above:Performed By: #### CBC #### [facility] [address] [address] [address] Raul Alfordocytes/100 WBC (Bld)9.3 %Normal1.7-12.0[facility] Comment on above:Performed By: #### CBC #### [facility] [address] [place] [address] Dr. Raul Sparks #4.4 103/ulNormal1.4-6.5The [facility] HospitalComment on above:Performed By: #### CBC #### [facility] [address] [place] [address] Dr. Raul Becerrilutrophils/100 WBC (Bld)61.5 %Subdzy30.0-75.0The [facility] HospitalComment on above:Performed By: #### CBC #### [facility] [address] [place] [address] Dr. Raul Hackett mean volume (Bld) [Entitic vol]8.7 fLCritically low 9.5-13.5The [facility] HospitalComment on above:Performed By: #### CBC #### [facility] [address] [place] [address] Dr. Raul PereiraPLT387 103/naSiejbf585-324Usd [facility] HospitalComment on above: Performed By: #### CBC #### [facility] [address] [place] [address] Dr. Raul PereiraRBC4.59 106/ulNormal4.20-5.40The [facility] HospitalComment on above:Performed By: #### CBC #### [facility] [address] [place] [address] Dr. Raul PereiraWBC7.2 103/ulNormal4.0-11.0The [facility] HospitalComment on above: Performed By: #### CBC #### [facility] [address] [place] [address] Dr. Raul PereiraCovid-19 PCR (CVDTB)on 76-66-9334BXKR-CoV-2 (COVID-19) RNA IMELDA+probe Ql (Unsp spec)Not detectedNormalNOT DETECTEDElyria Memorial Hospital Comment on above:Result Comment: This test is not yet approved or cleared by the [place] FDA. When there are no FDA-approved or cleared tests available, and other criteria are met, FDA can make tests available under an emergency access mechanism called an Emergency Use Authorization (EUA). The EUA for this test is supported by the [place] of Health and Human Service's (HHS's) declaration [...] consistent with SARS-CoV-2.Performed By: #### CVDTBH #### [facility] [address] [place] [address] Dr. Raul PereiraPROF CHEM 8 (BAS METB)on 82-64-6169Xynec gap [Moles/Vol]11.5 mmol/LNormalThe Genesis HospitalComment on above:Performed By: #### CBC #### [facility] [address] [place] [address] Dr. Raul PereiraCalcium [Mass/Vol]9.5 mg/dLNormal8.5-10.1[facility] Comment on above:Performed By: #### CBC #### [facility] [address] [place] [address] Dr. Raul PereiraChloride [Moles/Vol]101 mmol/OHexxjs29-251UimElyria Memorial Hospital Comment on above:Performed By: #### CBC #### [facility] [address] [address] [address] Raul PereiraCO2 [Moles/Vol]29.6 mmol/MBtvbwy39.0-32.0[facility] Comment on above:Performed By: #### CBC #### [facility] [address] [address] [address] Raul PereiraCreatinine [Mass/Vol]0.65 mg/dLNormal0.55-1.02The [facility] HospitalComment on above:Performed By: #### CBC #### [facility] [address] [address] [address] Raul AlcantarGFR-AF ARGENTINE>60Normal>=60The [facility] HospitalComment on above:Performed By: #### CBC #### [facility] [address] [place] [address] Dr. Raul AlcantarGFR-NON AF ARGENTINE>60Normal>=60The [facility] HospitalComment on above:Performed By: #### CBC #### [facility] [address] [address] [address] Raul PereiraGlucose [Mass/Vol]104 mg/cJJkdrod75-435XytElyria Memorial Hospital Comment on above:Performed By: #### CBC #### [facility] [address] [address] [address] Raul PereiraPotassium [Moles/Vol]4.1 mmol/LNormal3.5-5.1[facility] Comment on above:Performed By: #### CBC #### [facility] [address] [address] [address] Raul PereiraSodium [Moles/Vol]138 mmol/VSxnsix336-715Ojc [facility] Comment on above:Performed By: #### CBC #### [facility] [address] [address] [address] Raul PereiraUrea nitrogen [Mass/Vol]11.0 mg/dLNormal7.0-18.0The [facility] HospitalComment on above:Performed By: #### CBC #### [facility] [address] [place], [place] [address] Dr. Raul PereiraUrea nitrogen/Creatinine [Mass ratio]16.9 mg/mgNormCincinnati Children's Hospital Medical CenterComment on above:Performed By: #### CBC #### [facility] [address] [place], [place] [address] Dr. Raul PereiraOffice Visiton [id number]-up [id number] Rhett Mejia 1960 F Date Provider Department Center 08/06/2022 454-ALONSO MICAELA [facility] SURG Second Fl No family history on file Level of Service:46897 MD OFFICE/OUTPATIENT ESTABLISHED LOW MDM 20-29 MIN Reason for Visit and Comments: Consult [484] - Rhett is here for a gallbladder consult. Rhett also c/o swelling in right leg with pain in calf.NormalUnCincinnati Shriners HospitalPROTIME-INRon 18-00-4137LCD IN PPP BY COAGULATION ASSAY0.89Low0.90-1.10 [facility] CampusComment on above:Result Comment: ACCCP RECOMMENDED INR FOR [...] OPTIMAL THERAPEUTIC RANGE. CHEST 1995;108:231S-246S.Performed By: #### [id number] #### [facility] (BEAKER) [address] [place], [place] [address]GSZVMGHJWUL TIME (PT) IN PPP BY COAGULATION ASSAY12.1 SecondsLow 12.3-14.8[facility] CampusComment on above:Performed By: #### [id number] #### [facility] ([place]) [address] [address]YG ABD/PELVIS WO CONon [id number] ABD/PELVIS WO CON EXAMINATION: CT ABD/PELVIS WO [...] Electronically authenticated by: JESSICA WINKLER Date: 2022-07-24 17:21[facility] HEPATOBILIARY SCAN W EFon 33-91-9629HW HEPATOBILIARY SCAN W EFEXAMINATION: NM HEPATOBILIARY SCAN [...] Electronically authenticated by: MEAGHAN SKINNER Date: 2022-07-18 10:22NoUniversity [facility] AUTO DIFFon [id number] #0.0 103/ulNormal0.0-0.1The [facility] HospitalComment on above:Performed By: #### CBC #### [facility] [address] [address] [address] Raul PereiraBasophils/100 WBC (Bld)0.5 %Normal0.2-2.0[facility] Comment on above:Performed By: #### CBC #### [facility] [address] [place] [address] Dr. Raul Baker #0.1 103/ulNormal0.0-0.7The [facility] HospitalComment on above: Performed By: #### CBC #### [facility] [address] [address] [address] Raul Alcantarosinophils/100 WBC (Bld)0.9 %Normal0.9-7.0[facility] Comment on above:Performed By: #### CBC #### [facility] [address] [place] [address] Dr. Raul Alcantarrythrocyte distribution width (RBC) [Ratio]20.2 %Critically high 11.0-15.0The [facility] HospitalComment on above:Performed By: #### CBC #### [facility] [address] [address] [address] Raul PereiraHematocrit (Bld) [Volume fraction]41.1 %Cwjbre46.0-48.0The [facility] HospitalComment on above:Performed By: #### CBC #### [facility] [address] [address] [address] Raul PereiraHemoglobin (Bld) [Mass/Vol]13.2 g/eDRhhtxl86.0-16.0The [facility] HospitalComment on above:Performed By: #### CBC #### [facility] [address] [address] [address] Raul Carrington #0.05 10e3/ulCritically high0.00-0.03[facility] Comment on above:Performed By: #### CBC #### [facility] [address] [address] [address] Raul Carrington %0.6 %Critically high0.0-0.5The [facility] HospitalComment on above:Performed By: #### CBC #### [facility] [address] [address] [address] Raul Bautista #1.4 103/ulNormal1.2-3.8The [facility] HospitalComment on above:Performed By: #### CBC #### [facility] [address] [address] [address] Raul Sofiamphocytes/100 WBC (Bld)17.3 %Critically low20.5-60.0The [facility] HospitalComment on above:Performed By: #### CBC #### [facility] [address] [address] [address] Raul LeyvaUAL DIFF REQNONormalThe Genesis HospitalComment on above: Performed By: #### CBC #### [facility] [address] [address] [address] Raul Mack (RBC) [Entitic mass]27.3 gcBhscvr03.7-34.0The [facility] HospitalComment on above:Performed By: #### CBC #### [facility] [address] [place] [address] Dr. Raul Champion (RBC) [Mass/Vol]32.1 g/lAJydeng57.9-35.2The [facility] HospitalComment on above:Performed By: #### CBC #### [facility] [address] [place] [address] Dr. Raul ChampionV (RBC) [Entitic vol]84.9 yWQlfsih94.0-99.0The [facility] HospitalComment on above:Performed By: #### CBC #### [facility] [address] [place] [address] Dr. Raul Villanueva #0.8 103/ulNormal0.3-0.8The [facility] HospitalComment on above:Performed By: #### CBC #### [facility] [address] [place] [address] Dr. Raul Alfordocytes/100 WBC (Bld)10.0 %Normal1.7-12.0[facility] Comment on above:Performed By: #### CBC #### [facility] [address] [place] [address] Dr. Raul Sparks #5.8 103/ulNormal1.4-6.5The [facility] HospitalComment on above:Performed By: #### CBC #### [facility] [address] [place] [address] Dr. Raul Becerrilutrophils/100 WBC (Bld)70.7 %Cbhdor40.0-75.0The [facility] HospitalComment on above:Performed By: #### CBC #### [facility] [address] [place] [address] Dr. Raul Lanelet mean volume (Bld) [Entitic vol]9.1 fLCritically low 9.5-13.5The [facility] HospitalComment on above:Performed By: #### CBC #### [facility] [address] [place] [address] Dr. Raul PereiraPLT358 103/rwGantvz095-063Npt Genesis HospitalComment on above: Performed By: #### CBC #### [facility] [address] [place] [address] Dr. Raul PereiraRBC4.84 106/ulNormal4.20-5.40[facility] on above:Performed By: #### CBC #### [facility] [address] [place] [address] Dr. Raul PereiraWBC8.1 103/ulNormal4.0-11.0The [facility] HospitalComment on above: Performed By: #### CBC #### [facility] [address] [place] [address] Dr. Raul PereiraLIPASEon 26-86-1344Jdguqv [Catalytic activity/Vol]47.0 U/L Critically low73.0-393.0The [facility] HospitalComment on above:Performed By: #### CBC #### [facility] [address] [place] [address] Dr. Raul HorvathF 14(COMP METB)on 04-59-7429Mbhiibj [Mass/Vol]3.6 g/dLNormal 3.4-5.0The [facility] HospitalComment on above:Performed By: #### CBC #### [facility] [address] [place] [address] Dr. Raul PereiraAlbumin/Globulin [Mass ratio]1.0 {ratio}NormalThe Genesis HospitalCommclaren northern [place] on above:Performed By: #### CBC #### [facility] [address] [place] [address] Dr. Raul Osborn [Catalytic activity/Vol]88 U/GQjldzk43-768Cxm [facility] HospitalCommclaren northern [place] on above:Performed By: #### CBC #### [facility] [address] [place] [address] Dr. Raul Gomez [Catalytic activity/Vol]16 U/SBnujvx09-56Pfu [facility] HospitalComment on above:Performed By: #### CBC #### [facility] [address] [place] [address] Dr. Raul Wilde gap [Moles/Vol]13.2 mmol/LNormalElyria Memorial Hospital Comment on above:Performed By: #### CBC #### [facility] [address] [address] [address] Raul PereiraAST [Catalytic activity/Vol]15 U/KWqultj07-45Igi [facility] HospitalComment on above:Performed By: #### CBC #### [facility] [address] [address] [address] Raul PereiraBilirubin [Mass/Vol]0.2 mg/dLNormal0.2-1.0[facility] Comment on above:Performed By: #### CBC #### [facility] [address] [place] [address] Dr. Raul PereiraCalcium [Mass/Vol]9.5 mg/dLNormal8.5-10.1[facility] Comment on above:Performed By: #### CBC #### [facility] [address] [address] [address] Raul PereiraChloride [Moles/Vol]100 mmol/EHbfrsu88-386PyeElyria Memorial Hospital Comment on above:Performed By: #### CBC #### [facility] [address] [place] [address] Dr. Raul PereiraCO2 [Moles/Vol]28.0 mmol/EUwzpyk64.0-32.0[facility] Comment on above:Performed By: #### CBC #### [facility] [address] [address] [address] Raul PereiraCreatinine [Mass/Vol]0.78 mg/dLNormal0.55-1.02The [facility] HospitalComment on above:Performed By: #### CBC #### [facility] [address] [place] [address] Dr. Raul AlcantarGFR-AF ARGENTINE>60Normal>=60The [facility] HospitalComment on above:Performed By: #### CBC #### [facility] [address] [address] [address] Raul AlcantarGFR-NON AF ARGENTINE>60Normal>=60The [facility] HospitalComment on above:Performed By: #### CBC #### [facility] [address] [address] [address] Raul PereiraGlobulin (S) [Mass/Vol]3.6 g/dLNormCincinnati Children's Hospital Medical CenterComment on above:Performed By: #### CBC #### [facility] [address] [address] [address] Raul PereiraGlucose [Mass/Vol]86 mg/tHDfglwr00-259GhkElyria Memorial Hospital Comment on above:Performed By: #### CBC #### [facility] [address] [address] [address] Raul PereiraPotassium [Moles/Vol]4.2 mmol/LNormal3.5-5.1[facility] Comment on above:Performed By: #### CBC #### [facility] [address] [address] [address] Raul PereiraProtein [Mass/Vol]7.2 g/dLNormal6.4-8.2[facility] Comment on above:Performed By: #### CBC #### [facility] [address] [address] [address] Raul PereiraSodium [Moles/Vol]137 mmol/QPnhwku101-468EpyElyria Memorial Hospital Comment on above:Performed By: #### CBC #### [facility] [address] [address] [address] Raul PereiraUrea nitrogen [Mass/Vol]11.0 mg/dLNormal7.0-18.0[facility] Memorial HospitalComment on above:Performed By: #### CBC #### [facility] [address] [address] [address] Raul PereiraUrea nitrogen/Creatinine [Mass ratio]14.1 mg/mgNormCincinnati Children's Hospital Medical CenterComment on above:Performed By: #### CBC #### [facility] [address] [address] [address] Raul PereiraUS SINGLE QUAD RT UPPERon 61-55-4886JP SINGLE QUAD RT UPPEREXAM: US SINGLE QUAD [...] Electronically authenticated by: MICAH ROSAS Date: 2022-07-13 16:33NoMercy Health Kings Mills HospitalCovid-19 PCR (CVDTB)on 69-66-2827RZFF-CoV-2 (COVID-19) RNA IMELDA+probe Ql (Unsp spec)Not detectedNormalNOT DETECTEDThe [facility] Comment on above:Result Comment: This test is not yet approved or cleared by the [place] FDA. When there are no FDA-approved or cleared tests available, and other criteria are met, FDA can make tests available under an emergency access mechanism called an Emergency Use Authorization (EUA). The EUA for this test is supported by the [place] [employer] [place] of Health and Human Service's (HHS's) [...] consistent with SARS-CoV-2.Performed By: #### CVDTBH #### [facility] [address] [address] [address] Carter ChangEndoscopy Reporton 33-55-4490Ljrsavone ReportMR#: [id number] Pt[facility] Name: Rhett Mejia Surgery Date: 02/24/2018 Room #: Z0 Date of : 1960 PROCEDURE NOTEATTENDING: Xin Beasley M.D.PROCEDURE PERFORMED: EGD.VAMP MAKER: Dr. Noland.SEDATION:1. Versed 10 mg.2. Fentanyl 250 [...] 02/24/2018/09:53 Kiara/Ruddy Noland M.D.Date Trans: 02/24/2018 12:13 P/Aditya_JN:[id number]: Napoleon Lopez M.D. [address], [facility] [address]AkmcixWyaOur Lady of Mercy HospitalEndoscopy ReportMR#: [id number] Health System [facility] Pt. Name: Rhett Mejia Surgery Date: 02/24/2018 Room #: Z0 Date of : 1960 PROCEDURE NOTEATTENDING: Xin Beasley M.D.PROCEDURE PERFORMED: Colonoscopy and polypectomy.VAMP MAKER: Ruddy Noland M.D.SEDATION: Versed 10 mg and [...] 02/24/2018/09:57 Kiara/Ruddy Noland M.D.Date Trans: 02/24/2018 10:12 Kiara/Aditya_JN:[id number]: Napoleon Lopez M.D. [address] [facility] Kiara [facility] [address]XdjahePaqTwin City Hospital GLUCOSE LABon 99-44-7162Mwsxbjl mass conc87 mg/nOUoruyz06-036Aws [facility] CampusComment on above:Performed By: #### [id number] ####[id number] [place] [address], [place] Vital Signs Date TimeVital SignValuePerforming BlxvdqutyZdepodlf63-76-1055 12:04-0400Body zyqrow298.29 cmNapoleon Lopez MD Work Phone: [phone]08-12-2025 12:04-0400 Body mass index (BMI) [Ratio]24.9 kg/w6LmxstvbNapoleon Lopez MD Work Phone: [phone]08-12-2025 12:04-0400 Body itkpob47.86 kgNapoleon Lopez MD Work Phone: [phone] [place], [place] [address]NEGATED: Highlighted rowBMI (Body Mass Index)[facility] CtrNEGATED: Highlighted rowBody TemperatureGene [facility] Ctr NEGATED: Highlighted rowBody weightSelect Medical Cleveland Clinic [facility] NEGATED: Highlighted rowBP DiastolicGene [facility]tr NEGATED: Highlighted rowBP SystolicGene [facility] NEGATED: Highlighted rowHeightGene [facility] Medical CtrNEGATED: Highlighted rowPulse (Heart Rate)[facility] NEGATED: Highlighted rowPulse OximetrySelect Medical [facility] Clinic [facility] NEGATED: Highlighted rowRespiratory RateSelect Medical Cleveland Clinic [facility] Encounters Encounter DateEncounter TypeCare ProviderFacilityStart: 90-46-4393jeahsikjcd Napoleon LopezFacility:[facility] Hospitaltart: 08-16-2025 End: 58-57-8975Rxbywyc encounter procedureConor Moody MD-[facility] Work Phone: Start: 08-16-2025 End: 11-85-8513kusejkpocaPmzeqvn M Hoy MD Work Phone: [facility] Work Phone: Start: 07-19-2025 End: 11-72-1469fljxsyrtwtZsjszil M Hoy MD Work Phone: [phone] [place] [address] Work Phone: Start: 07-19-2025 End: 26-88-7921Ymfyzel encounter procedureConor Moody MD-[facility] Work Phone: Start: 07-19-2025 End: 88-71-1754Judivww encounter procedureThbin Kiara Rosas Start: 07-19-2025 End: 09-74-2437pqekixqxfsOmlyvac M Hoy MD Work Phone: [facility] Work Phone: Start: 06-28-2025 End: 79-96-7293cxtoyrynlzBtvtrdk M Hoy MD Work Phone: [facility] Work Phone: Start: 06-28-2025 End: 10-23-6530Ionlxht encounter procedureConor Moody MD-[facility] Work Phone: Start: 06-16-2025 End: 30-35-5924Lemlxulzg department patient visitARVADA Genia [facility] Hospitaltart: 10-25-2024 End: 53-83-2933kfhscmkqkzTublyms Vytautas Giedraitis MDFacility:[facility] Start: 10-18-2024 End: 28-85-0235ukjeqbqaooFdowyus Vytautas Giedraitis MDFacility:[facility] Start: 10-11-2024 End: 51-32-3932sjivouhtzoLtqloqt Vytautas Giedraitis MDFacility:[facility] Start: 09-27-2024 End: 54-24-8962qjwmisivoeHxzeiab Vytautas Giedraitis MDFacility:[facility] [place] Start: 09-06-2024 End: 59-37-6700nnwzogmlvnKfsenrn Vytautas Giedraitis MDFacility:[facility] Start: 08-16-2024 End: 78-73-1122ctsogglnkwWohbzso Vytautas Giedraitis MDFacility:[facility] Start: 08-02-2024 End: 05-16-3487ousougcldyYcnnapp Vytautas Giedraitis MDFacility:[facility] Start: 06-21-2024 End: 09-51-5540ejphzkyqttZzfukpd Vytautas Giedraitis MDFacility:[facility] [place] Start: 76-84-2947ipbpezcbhrBQ NAPOLEON HOY .Facility:U2Tknrr: 03-21-2023 End: 33-39-6539nptkubkkzhOHIUSEN MARCY .Facility:G0Fwpxd: 03-05-2023 End: 60-19-4259etafspmsyrKBJBULUQXRMN LAKSHMIPATHY .Facility:W6Gpmlh: 02-20-2023 End: 40-50-9388tvxyeipmsbTP NAPOLEON HOY .Facility:P6Hpkjs: 02-18-2023 End: 17-50-9251fonhpnziruRI JESSICA WINKLERFacility:V2Ijbdd: 02-13-2023 End: 52-56-9632fucoesvhrpIH NAPOLEON HOY .Facility:N4Bhvbh: 02-12-2023 End: 59-51-6444jhwzuzodfoVU NAPOLEON HOY .Facility:X2Stgkd: 39-54-5818Qsntcdoqc for general adult medical examination without abnormal findingsDR NAPOLEON HOY . [facility] Southtart: 01-31-2023 End: 61-41-3372Qlrsswadn for general adult medical examination without abnormal findingsDR NONE LISTED REQUESTFacility:L7Qwzdg: 01-31-2023 End: 63-77-2498ydofopvbtaPF NONE LISTED REQUESTFacility:E9Cackz: 01-30-2023 End: 99-51-9757houjguvcugBV NAPOLEON HOY .Facility:S2Gelhe: 01-28-2023 End: 54-13-7555gensouslvxTP BETHEL S LITTLE .Facility:I5Xcskp: 01-16-2023 End: 54-66-7666lxlopwabknIN NAPOLEON HOY .Facility:I7Umpvb: 01-13-2023 End: 10-67-9007jvqwsgydtjCV NAPOLEON HOY .Facility:A0Iqynl: 01-10-2023 End: 30-98-3198tkxyulzktsBI NAPOLEON HOY .Facility:Y7Bqant: 12-17-2022 End: 04-58-0592qvtorkcuqxMS BETHEL S LITTLE .Facility:Z1Yhqvy: 01-45-9531Zgzvfgbmh for preprocedural laboratory examinationDR BETHEL LITTLE .[facility] Start: 12-13-2022 End: 77-95-8502izzlekptpmGS BETHEL LITTLE .Facility:M8Uztao: 12-13-2022 End: 09-94-2611Hvknipuaw for preprocedural laboratory examinationDR BETHEL LITTLE .Facility:A0Ovybq: 12-04-2022 End: 75-08-4587vtvqcexldlFLZK RAMIREZ .Facility:F2Cjpxh: 12-03-2022 End: 23-76-7954nxrshpifxxOJ NAPOLEON LOPEZ .Facility:N0Kjoyv: 11-15-2022 End: 85-01-5066cmtjaqiobbKDID SOLIS .Facility:J4Jxjhv: 08-29-2022 End: 50-67-8188kzcanyfenhTMNR SOLIS .Facility:O9Yhnlx: 08-27-2022 End: 60-74-0439tudqcfldftGBAOUYHPremier Health Miami Valley Hospitaltart: 08-16-2022 End: 72-68-6187pcwmmatticOYNWSUTPremier Health Miami Valley Hospitaltart: 38-55-1283Etlhyrujg for other preprocedural examinationDR MICAELA GUPTAGuernsey Memorial Hospitaltart: 00-46-7163Hyxxlarnw for preprocedural laboratory examinationDR MICAELA GUPTAGuernsey Memorial Hospitaltart: 08-13-2022 End: 48-73-2181sdkmrpsjduVC MICAELA GUPTAFacility:Q0Nmxql: 08-13-2022 End: 16-37-8537Wofzoqhbn for other preprocedural examinationDR MICAELA GUPTA Facility:Q8Bpqzu: 08-06-2022 End: 46-84-8393xaskqjulezDSHSTQDPremier Health Miami Valley Hospitaltart: 08-06-2022 End: 55-50-0326komiekqiexEFWKWMTPremier Health Miami Valley Hospitaltart: 58-70-7857xxamlfzsnwAXSCXIXPremier Health Miami Valley Hospitaltart: 07-24-2022 End: 80-16-2597krztdcbzxrNO NAPOLEON HOY .Facility:U6Wvlyx: 07-18-2022 End: 79-02-3910xzhtjoqbibZW NAPOLEON HOY .Facility:A1Rhzlj: 07-13-2022 End: 26-96-9723tbulkjxunxQD NAPOLEON HOY .Facility:D3Rrksv: 07-09-2022 End: 50-84-8933dvfeqsonzoWF BETHEL S LITTLE .Facility:V5Ufiwq: 07-05-2022 End: 69-56-0576fqjnmfbkalOB BETHEL S LITTLE .Facility:L6Kmtln: 06-12-2022 End: 95-15-7188cxbetxpkxeOD BETHEL S LITTLE .Facility:V9Dxgdt: 05-15-2022 End: 88-49-6029jweazbbarxNA BETHEL S LITTLE .Facility:C9Qwvch: 05-06-2022 ambulatoryDR NAPOLEON HOY .Facility:T8Ebfkg: 02-24-2018 End: 43-11-9238MzuxzprewdKCD T NAWRASFacility:UTMCStart: 10-19-2014 End: 03-93-7604Hjxbrtm [facility] procedureSelect [facility] Start: 12-22-2013 End: 04-39-9566Ebkgserr ReferredGene [facility] Start: 10-12-2001 End: 27-87-9560Miwpdfs encounter procedureGene [facility] Start: 09-01-2001 End: 40-02-0576Vbphvuw encounter procedureGene [facility] Start: 08-26-2001 End: 53-41-3111Njlolia encounter procedureGene [facility] Start: 03-21-1999 End: 90-31-1420Rnhcvfzsxt and management of inpatientGene [facility] Start: 09-07-1997 End: 84-41-2320Yjczxhyyv to day surgeryGene [facility] Start: 07-21-1997 End: 09-98-4849Jeszxncxm department patient visitGene [facility] Procedures DateProcedureProcedure DetailPerforming ClinicianStart: 47-11-0657Tvdmi X-ray of right calcaneumDochristiana Lopez MD Work Phone: Start: 30-91-9782Sjioi X-ray of right calcaneumNapoleon Lopez MD Work Phone: Start: 81-41-6018Oxppv X-ray of right calcaneumNapoleon Lopez MD Work Phone: Start: 50-76-2920Gwcki flx w/removal lesion by hot bx Delma BEASLEY Plan of Treatment DateCare ActivityDetailAuthorStart: 62-59-2380Eljoxqu [facility] Work Phone: Start: 41-05-0257Yyayc X-ray of right calcaneumXR calcaneus RT min 2[facility]art: 00-06-3101IC [facility]: 37-64-8320Vwhmn X-ray of right calcaneumXR calcaneus RT min 2[facility] Start: 46-72-5384EN Calcaneus - right [facility] Start: 31-62-2759Vtgwl X-ray of right calcaneumXR calcaneus RT min 2[facility]atart: 14-29-6106VN Calcaneus [facility] right [facility] HospitalPatient [facility] Work Phone: Payers DatePayer CategoryPayerPolicy [id number] [id number] 1960Self-pay1960Self-pay [id number] 2.16.840.1.012960.3.57[id number] 2.16.840.1.210136.3.57[id number] 2.16.840.1.687298.3.579.2.17661-81-6701Wpjgvlz7464258 2.16.840.1.277549.3.579.2.87562-04-0176Qtasltg6079332 2.16.840.1.199360.3.579.2.80729-33-4668Bizehrr6192970 2.16.840.1.114535.3.579.2.01272-38-2014Byhccde0591714 2.16.840.1.455331.3.579.2.34626-06-2034Kyifagw1162527 2.16.840.1.085645.3.579.2.81494-05-8593Basfwon4389474 2.16.840.1.763992.3.579.2.86881-91-9707Fsichky5455826 2.16.840.1.980441.3.579.2.23808-69-5324Lsqypnb0914962 2.16.840.1.621423.3.579.2.55202-41-3758Bcikgcg8217282 2.16.840.1.082919.3.579.2.97394-78-9456Zqfkdtg5004009 2.16.840.1.647213.3.579.2.16612-81-9223Kvctshl9891395 2.16.840.1.272353.3.579.2.38586-78-3547Jjvskar6971604 2.16.840.1.936188.3.579.2.28360-91-1576Fhtwzsr0754234 2.16.840.1.815896.3.579.2.20056-05-6994Aekhbij4595449 2.16.840.1.175244.3.579.2.01624-41-5605Llydctc0257433 2.16.840.1.151174.3.579.2.44988-14-0976Gfhltql9965947 2.16840.1.881697.3.579.2.72518-04-2226Riykesp0346108 2.16840.1.626047.3.579.2.76977-89-7337Gszzxjw4164181 2.16840.1.275706.3.579.2.36214-45-0043Xkaodyy8596140 2.16840.1.819976.3.579.2.60137-34-1622Mmehcom3089266 2.16840.1.418520.3.579.2.69027-96-5214Afjnlhi2114665 2.16840.1.244897.3.579.2.48520-56-4341Dwjsrjk6132251 2.16840.1.407759.3.579.2.87021-35-1427Xisjzwg0060586 2.16840.1.892256.3.579.2.88105-82-5805Havaqkv0242145 2.16.840.1.441275.3.579.2.36661-81-7290Ynslabn4339785 2.16.840.1.354890.3.579.2.15119-36-3664Bgehxut1189630 2.16840.1.419176.3.579.2.46495-92-2766Hgorfoo892302813 2.0.1.177410.3.579.2.33004-57-8403Qfrftnr936015503 2.840.1.228727.3.579.2.09388-73-1962Lpuauej375229844 2..1.499719.3.579.2.91301-54-7809Mpyxdkg037329779 2..1.797125.3.579.2.71443-98-1538Kyjyngi866574549 2..1.501646.3.579.2.36682-69-9856Ycaoihy045201736 2..1.886515.3.579.2.74305-74-4076Dfgoytz580082506 2..1.926709.3.579.2.26920-86-0295Bfmovao358866536 2..1.564269.3.579.2.13663-10-2182Dbnybxf790439092 2..1.361382.3.579.2.1286Medicare292629019A 91yol7c7-ck42-95z7-38n5-ryp33q9eq583Zrobdts5890432 2.0.1.624873.3.579.2.593 Sjmjhez53457839 2..1.566393.3.579.2.623Coaylox56948184 2.0.1.383497.3.579.2.169Fxpbeea46880398 2.0.1.417913.3.579.2.531 Cvvuryd15089756 2.0.1.872686.3.579.2.531 Social History DateTypeDetailFacilityStart: 47-06-0387Pcbbtwf smoking status NHISSmokes tobacco daily (finding)[facility]: 68-21-4903Fme [facility] Clinical Notes 05-15-2022 to 08-16-2025 Note Date & DburOqvwTlgzgewg96-07-6079 Hospital Discharge instructionsAmbulatory Orders* Referral to Wound Care Time Frame: 08/16/25, Location: None Selected [facility] Work Phone: 1(666) 613-780508-12-2025 Evaluation note* Diagnosis Onset Date Resolution Status Admit Date Leg wound, left acuteAugust 2024 11:31amNondisplaced fracture of body of right calcaneus, initial encounter for cloacuteAugust 2024 11:31am [facility] Work Phone: 1(682) 498-356608-12-2025 Evaluation note* Diagnosis Onset Date Resolution Status Admit Date Leg wound, left acuteAugust 2024 11:31amNondisplaced fracture of body of right calcaneus, initial encounter for cloacuteAugust 2024 11:31amLeg wound, leftacute July 19, 2025 9:21amNondisplaced fracture of body of right calcaneus, initial encounter for cloacuteSeptember 2024 9:21am [facility] Work Phone: 1(691) 908-813708-12-2025 Evaluation note* Diagnosis Onset Date Resolution Status Admit Date Leg wound, left acuteAugust 2024 11:31amNondisplaced fracture of body of right calcaneus, initial encounter for cloacuteAugust 2024 11:31amLeg wound, leftacute July 19, 2025 9:21amNondisplaced fracture of body of right calcaneus, initial encounter for cloacuteSeptember 2024 9:21amLeg wound, leftacute August 16, 2025 10:23amNondisplaced fracture of body of right calcaneus, initial encounter for cloacuteSeptember 2024 10:23am [facility] Work Phone: 1(882) 236-743307-31-2025 NoteCT THORACIC RECONSTRUCTION Procedure: CT THORACIC RECONSTRUCTION [...] by Michele Brown MD on 06/16/2025 7:31 [facility] 02-18-2023 NoteCONSULTATION CONSULTATION DATE: 02/18/2023 TO: Napoleon [...] our patients to inform us about any gfpt-jbq-ohsxvwl medications or herbal remedies/nutritional supplements/alternative remedies. 2. [...] treatment options with their primary care provider.[facility] HospitalNnezefpd42-19-2828 Note CONSULTATION CONSULTATION DATE: 01/16/2023 HISTORY: This [...] followed up in the clinic post epidural.[facility] HospitalMbqnscbx36-71-1690 Note CONSULTATION CONSULTATION DATE: 12/04/2022 HISTORY OF [...] up in the office after the procedure.[facility] HospitalTvvqmaet27-69-6846 Note CONSULTATION PROCEDURE DATE: 11/15/2022 PREOPERATIVE DIAGNOSIS: [...] in the office following her RFA procedure.[facility] HospitalBmnjvjet25-25-1408 NoteCONSULTATION CONSULTATION DATE: 11/15/2022 HISTORY OF PRESENT [...] supportive measures such as heat and stretches.[facility] HospitalAlpzdame13-16-5008 NoteCONSULTATION PROCEDURE DATE: 08/29/2022 PREOPERATIVE DIAGNOSIS: Right [...] fan-like pattern. Patient tolerated the procedure well.[facility] 08-29-2022 NoteCONSULTATION CONSULTATION DATE: 08/29/2022 HISTORY [...] followed up in the office post procedure.[facility] HospitalRtzhnhch02-24-5670 NoteCONSULTATION CONSULTATION DATE: 08/29/2022 ADDENDUM: Addendum to peer plan: We will repeat radiofrequency ablation starting on the right side and subsequently moving to the left at T11, T12 and L1, L2.[facility] HospitalMyizpmrw59-67-5669 NoteSubjective Patient ID: Rhett Mejia is a [...] the past 36 hour(s)). No follow-ups on file.[facility]09-30-2022 NotePatient: Rhett Mejia Procedure Summary Date: 08/16/22 Room / Location: [facility] OPERATING ROOM 01 / [facility] Operating Room Anesthesia Start: 734 Anesthesia Stop: [...] were no known notable events for this encounter.[facility]09-30-2022 NoteAirway Date/Time: 08/16/2022 7:44 AM Urgency: elective Airway not difficult General Information and Staff Patient location during procedure: OR Anesthesiologist: Cassi Velez MD Resident/ALTERATION TAILOR APPRENTICE/CAA: LEONARD Canales Performed: resident/ALTERATION TAILOR APPRENTICE/CAA Indications and Patient Condition Indications for airway [...] before airway management; Dentures to Circ RN [facility]09-30-2022 NotePatient: Rhett Mejia Procedure Information Date/Time: 08/16/2230 Procedure: CHOLECYSTECTOMY, LAPAROSCOPIC, WITH INTRAOPERATIVE CHOLANGIOGRAM, WITH LAPAROTOMY IF INDICATED REQ BRADEREJE OR MANDO HUERTA MAUK, WOODSON - C-ARM AVAIL STAFF REQUESTS: MANDO DE LA CRUZ AND SHAHID Location: [facility] OPERATING ROOM 01 / [facility] Operating Room Surgeons: Micaela Gupta MD Relevant [...] products. Plan discussed with CAA. [facility]sUnC[facility] Note Subjective Patient ID: Rhett Mejia [...] the past 36 hour(s)). No follow-ups on file.[facility]09-20-2022 Note Subjective Patient ID: Rhett Mejia is [...] the past 36 hour(s)). No follow-ups on file.[facility]07-27-2022 Note CONSULTATION PROCEDURE DATE: 06/12/2022 PREOPERATIVE DIAGNOSIS: [...] pattern. The patient tolerated the procedure well.[facility] HospitalZveljbmk20-88-5806 NoteCONSULTATION CONSULTATION DATE: 06/12/2022 HISTORY OF PRESENT [...] she agrees to the plan of care.[facility] HospitalPgmrdfly07-39-9178 NoteCONSULTATION CONSULTATION DATE: 05/15/2022 HISTORY OF PRESENT [...] Patient agrees with the plan of care. [facility] Signed and Approved by: RUBY RAMIREZ . 05/16/2022 13:38:00[facility]06-29-2022 NoteCONSULTATION PROCEDURE DATE: 05/15/2022 PREOPERATIVE DIAGNOSIS: [...] will be followed up in the office. [facility] Signed and Approved by: RUBY RAMIREZ . 05/16/2022 13:38:00[facility]* Diagnosis Onset Date Resolution Status Admit Date Leg wound, left acuteAugust 2024 11:31amNondisplaced fracture of body of right calcaneus, initial encounter for cloacuteAugust 2024 11:31am [facility] Work Phone: Hospital Discharge instructionsAmbulatory Orders* Referral to Wound Care Time Frame: 08/16/25, Location: None Selected [facility] Work Phone: Reason for referral (narrative)No reason for referral information availableShelby Memorial Hospital Work Phone: Summary Purpose Family History [...] and content) DATE CREATED AUTHOR 05/07/2018 [facility] DATE CREATED AUTHOR AUTHOR'S ORGANIZ ATION 09/26/2022 [facility] DATE CREATED AUTHOR AUTHOR'S ORGANIZ ATION 03/28/2023 [facility] DATE CREATED AUTHOR AUTHOR'S ORGANIZ ATION 11/08/2024 [facility] DATE CREATED AUTHOR AUTHOR'S ORGANIZ ATION 06/18/2025 [facility] DATE CREATED AUTHOR AUTHOR'S ORGANIZ ATION 09/28/2025 [facility] Care Teams (unrecognized sec [...] BE BASED ON THE PRIMARY CLINICAL RECORDS. [facility]. provides no warranty or guarantee of the accuracy or completeness of information in this document.
[2025-11-14 17:09] LABS: Allen Test POSITIVE (POSITIVE); BIPAP Pressure 14/7; HCO3 ABG 29.5 mmol/L (22.0-26.0); O2 Mode BIPAP; Oxygen Saturation ABG 97.0 %; PO2 ABG 97.0 mmHg (80.0-100.0); Puncture Site LR; Rate 16
[2025-11-14 17:11] LABS: ABG PCO2 64.4 mmHg (35.0-45.0)
[2025-11-14] MEDS: AZITHROMYCIN 500 MG in 0.9 % SODIUM CHLORIDE 250 ML 250 MG IV (17:14)
[2025-11-14 17:45] LABS: Reflex Lactate? Yes
== END 2025-11-14 20:53 | disposition short-term general hospital (02) ==
PROVIDERS: Physician Assistant; Emergency Provider Emergency Medicine; PCP Family Medicine
DX: A41.9 Sepsis, unspecified organism (principal); J10.00 Influenza due to other identified influenza virus with unspecified type of pneumonia; Z99.81 Dependence on supplemental oxygen; F17.210 Nicotine dependence, cigarettes, uncomplicated; J96.21 Acute and chronic respiratory failure with hypoxia; I50.9 Heart failure, unspecified; J44.0 Chronic obstructive pulmonary disease with (acute) lower respiratory infection; R65.20 Severe sepsis without septic shock
CPT/HCPCS: 36415; 36600; 51702; 71045; 80053; 81001; 82805; 83605; 83735; 83880; 84484; 85007; 85027; 87040; 87420; 87804; 87811; 93005; 94640; 94660; 96365; 96366; 96368; 96375; 99291; 99292; J0456; J0696; J1938; J2305; J2405; J3360